=== PATIENT | female | born 1955 | race Caucasian/White ===

== ENCOUNTER 2021-05-02 14:56 | Emergency (ER) | payer OTHER ==
--- OUTSIDE RECORDS SUMMARY | 2021-05-02 15:00 | XMS REPORT | Continuity of Care Document ---
:1955 Author Organization [facility] t Address [address] [place] [address] Care Team Providers Name Role Phone Jess MONCADA, A Attending Clinician Problems This patient has no known problems. Allergies, Adverse Reactions, Alerts This patient has no known allergies or adverse reactions. Medications This patient has no known medications. Procedures This patient has no known procedures. Encounters Start End Encounter Admission Attending Care Care Encounter Source Date/Time Date/Time Type Type Clinicians Facility Department ID 2021-04-28 2021-04-28 Office HARLEEN Mercado [id number] 09:07:52 14:36:33 Visit Maureen Keene [id number] [place] [id number] [facility] [id number] [address] Results This patient has no known results.
--- NOTE | 2021-05-02 16:21 | RAD REPORT ---
EXAM DESCRIPTION: RAD - Chest Single View - 05/02/2021 4:15 pm CLINICAL HISTORY: SOB COMPARISON: No comparisons FINDINGS: No evidence of edema or pneumonia. The heart size is within normal limits.No acute osseous abnormality. No significant pleural effusions or pneumothorax. Emphysema. ACDF in the cervical spine . Remote ri rib fractures. IMPRESSION: No acute cardiopulmonary disease. Emphysema.
[2021-05-02 16:29] LABS: Basophils % 0.9 % (0-1.3); Hematocrit 38.4 % (36.0-45.0); MPV 7.4 fL (7.6-11.3); RBC Red Blood Cell Count 4.31 M/uL (3.86-4.86)
[2021-05-02 16:48] LABS: Protime INR 1.07
[2021-05-02 17:12] LABS: ALT/SGPT 31 U/L (12-78); AST/SGOT 25 U/L (15-37); Alkaline Phosphatase 92 U/L (45-117); BUN Blood Urea Nitrogen 15 mg/dL (7-18); Bicarbonate 28 mmol/L (21-32); Bilirubin Direct 0.2 mg/dL (0-0.2); Bilirubin Total 0.4 mg/dL (0.2-1.0); Glucose Level 87 mg/dL (74-106); Magnesium 1.9 mg/dL (1.8-2.4); NT PRO-BNP 1248 pg/mL (<125); Potassium 3.7 mmol/L (3.5-5.1); Protein, Total 7.4 g/dL (6.4-8.2); Sodium Level 136 mmol/L (136-145); Troponin (Emerg Dept Use Only) < 0.02 ng/mL (0.0-0.045)
--- NOTE | 2021-05-02 18:13 | RAD REPORT ---
EXAM DESCRIPTION: CT - Chest For Pe Angio - 05/02/2021 6:00 pm CLINICAL HISTORY: Chest pain. shortness of breath, tachycardia, covid COMPARISON: No comparisons TECHNIQUE: CT angiogram of the pulmonary arteries was performed with MIP. All CT scans are performed using dose optimization technique as appropriate and may include automated exposure control or mA/KV adjustment according to patient size. FINDINGS: No evidence of pulmonary thromboembolism. No acute aortic finding demonstrated. Diffuse COPD is present with mild infiltrate present in the posterior right lower lobe likely represe nting pneumonia. No significant pericardial or pleural fluid. No concerning bony finding. IMPRESSION: No evidence of pulmonary thromboembolism. Moderate COPD with right lower lobe pneumonia.
[2021-05-02] MEDS ORDERED: levoFLOXacin 750 MG TAB ONE (19:48)
[2021-05-02] MEDS ORDERED: NA CHLORIDE 0.9% 500 ML ONE (20:15)
--- NOTE | 2021-05-02 20:43 | EDPHYS ---
Physician Documentation [facility] Name: Irina Pardo Age: 65 yrs Sex: Female : 1955 Arrival Date: 05/02/2021 Time: 15:11 Bed Treatment Private MD: ED Physician Cherelle Gomez HPI: 05/02 15:41 This 65 yrs old Female presents to ER via EMS with complaints of Shortness Of jmm Breath, COVID+. 15:41 The patient has shortness of breath at rest. Onset: The symptoms/episode began/occurred jmm gradually, 1 week(s) ago. Duration: The symptoms are continuous, and are steadily getting worse. The patient's shortness of breath is aggravated by nothing, is alleviated by nothing. Associated signs and symptoms: Pertinent negatives: fever. Patient also complains of a rash beneath her right breast. Recently diagnosed with covid. . Historical: - Allergies: 21:27 No Known Allergies; ms4 - Home Meds: 21:27 Unable to obtain [Active]; ms4 - Immunization history:: Adult Immunizations up to date. - Social history:: Smoking status: unknown. ROS: 15:41 Constitutional: Negative for fever, chills, and weight loss, Cardiovascular: Negative jmm for chest pain, palpitations, and edema. 15:41 Respiratory: Positive for cough, shortness of breath. 15:41 Skin: Positive for rash. 15:41 All other systems are negative. Exam: 15:41 Constitutional: This is a well developed, well nourished patient who is awake, alert, jmm and in no acute distress. Head/Face: atraumatic. Eyes: EOMI, no conjunctival erythema appreciated ENT: Moist Mucus Membranes Neck: Trachea midline, Supple 15:41 Cardiovascular: Regular rate and rhythm. No edema appreciated Respiratory: Normal respirations, no respiratory distress appreciated Abdomen/GI: Non distended, soft Back: Normal ROM Skin: General appearance color normal 15:41 Chest/axilla: lenore noted to the right breast, no purulent drainage appreciated. 15:41 Skin: rash noted beneath the right breast. 15:41 Neuro: Orientation: is normal, Mentation: is normal, Memory: is normal. 15:41 Psych: Behavior/mood is pleasant, cooperative. Vital Signs: 17:09 BP 128 / 94; Pulse 110; Resp 18; Temp 97.9; Pulse Ox 94% on R/A; iw 19:37 BP 147 / 87; Pulse 120; Resp 20; Temp 97.1; Pulse Ox 94% ; ms4 20:41 BP 140 / 84; Pulse 109; Resp 18; Pulse Ox 93% ; ms4 MDM: 15:41 Patient medically screened. [facility] 19:41 Data reviewed: vital signs, nurses notes. Counseling: I had a detailed discussion with yuri the patient and/or guardian regarding: the historical points, exam findings, and any diagnostic results supporting the discharge/admit diagnosis, lab results, radiology results, the need for outpatient follow up, to return to the emergency department if symptoms worsen or persist or if there are any questions or concerns that arise at home. ED course: Patient is alert and nontoxic in appearance in the ED. No signs of respiratory distress are appreciated. CT reveals concerns for a right sided pneumonia. Patient is also positive for coronavirus. Will treat with oral antibiotics. Do not suspect sepsis. Patient is advised to follow PCP and otherwise given strict return precautions.. 05/02 15:42 Order name: Basic Metabolic Panel; Complete Time: 17:14 [facility] 05/02 15:42 Order name: CBC with Diff; Complete Time: 17:14 [facility] 05/02 15:42 Order name: LFT's; Complete Time: 17:14 [facility] 05/02 15:42 Order name: Magnesium; Complete Time: 17:14 [facility] 05/02 15:42 Order name: NT PRO-BNP; Complete Time: 17:14 [facility] 05/02 15:42 Order name: PT-INR; Complete Time: 17:14 [facility] 05/02 15:42 Order name: Troponin (emerg Dept Use Only); Complete Time: 17:14 [facility] 05/02 15:42 Order name: XRAY Chest (1 view); Complete Time: 16:24 [facility] 05/02 15:42 Order name: EKG; Complete Time: 15:43 [facility] 05/02 15:42 Order name: Cardiac monitoring [facility] 05/02 15:42 Order name: EKG - Nurse/Tech; Complete Time: 19:37 [facility] 05/02 17:33 Order name: CT Chest For PE Angio; Complete Time: 18:14 [facility] 05/02 15:42 Order name: IV Saline Lock [facility] 05/02 15:42 Order name: Labs collected and sent [facility] 05/02 15:42 Order name: O2 Per Protocol [facility] 05/02 15:42 Order name: O2 Sat Monitoring [facility] Administered Medications: 19:24 Drug: LevaQUIN (levofloxacin) 750 mg Route: PO; ms4 19:24 Follow up: Response: No adverse reaction ms4 19:57 Drug: NS 0.9% 500 ml Route: IV; Rate: bolus; Site: left antecubital; ms4 20:30 Follow up: IV Status: Completed infusion iw Disposition: 05/03 18:54 Co-signature as Attending Physician, Cherelle Gomez I agree with the assessment and plan sp3 of care. Disposition Summary: 05/02/21 20:43 Discharge Ordered Location: Home [facility] Condition: Stable [facility] Diagnosis - Pneumonia [facility] Followup: [facility] - With: Private Physician - When: Tomorrow - Reason: Recheck today's complaints, Continuance of care, Re-evaluation by your physician Discharge Instructions: - Discharge Summary Sheet [facility] - Community-Acquired Pneumonia, Adult [facility] - COVID-19 [facility] Forms: - Medication Reconciliation Form [facility] - Thank You Letter [facility] - Antibiotic Education [facility] - Prescription Opioid Use [facility] Prescriptions: - levofloxacin 750 mg Oral Tablet - take 1 tablet by ORAL route once daily; 7 tablet; Refills: 0, Product Selection [facility] Permitted - albuterol sulfate 90 mcg/actuation Inhalation HFA aerosol inhaler - inhale 2 puff by INHALATION route every 4 hours; 1 Pump; Refills: 0, Product [facility] Selection Permitted - nystatin 100,000 unit/gram Topical ointment - apply 1 application by TOPICAL route 3 times per day; 1 tube; Refills: 0, [facility] Product Selection Permitted Signatures: Dispatcher [employer] James Pereira PA PA jm Cherelle Gomez sp3 Melisa Mark RN RN ms4 Deborah Lowe RN iw
--- NOTE | 2021-05-02 20:43 | ER ---
Nurse's Notes [facility] Name: Irina Pardo Age: 65 yrs Sex: Female : 1955 Arrival Date: 05/02/2021 Time: 15:11 Bed Treatment Private MD: Diagnosis: Pneumonia Presentation: 05/02 15:38 Chief complaint: EMS states: pt has hx of COPD, had 2 COVID + home tests yesterday , iw has had congestion and SOB on exertion is 94% on RA. 15:38 Method Of Arrival: EMS: [facility] iw 15:38 Acuity: FRANK 3 iw 21:27 Coronavirus screen: Client denies travel out of the [place] in the last 14 days. Client ms4 indicates they have traveled out of the [place] in the last 14 days. Ebola Screen: Patient negative for fever greater than or equal to 101.5 degrees Fahrenheit, and additional compatible Ebola Virus Disease symptoms Patient denies exposure to infectious person. Patient denies travel to an Ebola-affected area in the 21 days before illness onset. Initial Sepsis Screen: Does the patient meet any 2 criteria? No. Patient's initial sepsis screen is negative. Does the patient have a suspected source of infection? No. Patient's initial sepsis screen is negative. Risk Assessment: Do you want to hurt yourself or someone else? Patient reports no desire to harm self or others. Onset of symptoms. Triage Assessment: 21:26 General: Appears in no apparent distress. Behavior is calm, cooperative. Respiratory: ms4 Reports shortness of breath Onset: The symptoms/episode began/occurred this morning, the patient has moderate shortness of breath. Historical: - Allergies: 21:27 No Known Allergies; ms4 - Home Meds: 21:27 Unable to obtain [Active]; ms4 - Immunization history:: Adult Immunizations up to date. - Social history:: Smoking status: unknown. Screenin:26 Abuse screen: Denies threats or abuse. Denies injuries from another. Nutritional ms4 screening: No deficits noted. Tuberculosis screening: No symptoms or risk factors identified. Fall Risk None identified. 21:26 Fall Risk None identified. Fall in past 12 months (25 points). Secondary diagnosis (15 ms4 points) IV access (20 points). Ambulatory Aid- None/Bed Rest/Nurse Assist (0 pts). Gait- Normal/Bed Rest/Wheelchair (0 pts) Mental Status- Oriented to own ability (0 pts). Total Thomas Fall Scale indicates High Risk Score (45 or more points). As available patient and family educated on Fall Prevention Program and Strategies. Assessment: 21:25 Pain: Denies pain. Cardiovascular: Rhythm is regular. Respiratory: Airway is patent ms4 Respiratory effort is even, unlabored, Breath sounds are diminished bilaterally. Vital Signs: 17:09 BP 128 / 94; Pulse 110; Resp 18; Temp 97.9; Pulse Ox 94% on R/A; iw 19:37 BP 147 / 87; Pulse 120; Resp 20; Temp 97.1; Pulse Ox 94% ; ms4 20:41 BP 140 / 84; Pulse 109; Resp 18; Pulse Ox 93% ; ms4 ED Course: 15:11 Patient arrived in ED. iw 15:23 James Orlando PA is PHCP. [facility] [place] 15:24 Cherelle Gomez is Attending Physician. [facility] 15:37 Deborah Lowe, RN is Primary Nurse. iw 15:39 Triage completed. iw 16:15 XRAY Chest (1 view) In Process Unspecified. EDMS 18:00 CT Chest For PE Angio In Process Unspecified. EDMS 19:30 Primary Nurse role handed off by Deborah Lowe, ALFREDO mw2 21:26 Arm band placed on right wrist. ms4 21:26 No provider procedures requiring assistance completed. IV discontinued, intact, ms4 bleeding controlled. 21:28 Patient has correct armband on for positive identification. ms4 Administered Medications: 19:24 Drug: LevaQUIN (levofloxacin) 750 mg Route: PO; ms4 19:24 Follow up: Response: No adverse reaction ms4 19:57 Drug: NS 0.9% 500 ml Route: IV; Rate: bolus; Site: left antecubital; ms4 20:30 Follow up: IV Status: Completed infusion iw Outcome: 20:43 Discharge ordered by . [facility] 21:27 Discharged to home via wheelchair. ms4 21:27 Condition: stable 21:27 Discharge instructions given to patient, family, Instructed on discharge instructions, follow up and referral plans. Demonstrated understanding of instructions, follow-up care, medications, Prescriptions given X 3. 21:28 Patient left the ED. ms4 Signatures: Dispatcher [employer] [facility] James, PA PA jmm Mynor, Deborah, RN RN iw Yenifer Solorzano mw2 Melisa Mark RN RN ms4
[2021-05-02 21:36] VITALS: TEMP 97.1
[2021-05-02 21:37] VITALS: BP 140/84; O2SAT 93
--- NOTE | 2021-05-03 16:55 | EKG ---
Test Date: 2021-05-02 Test Time: 19:34:02 Respiratory Care Assistant: MARVA MEASUREMENT RESULTS: Intervals: Rate: 122 DC: 158 QRSD: 80 QT: 324 QTc: 461 [place]: P: 90 DC: 158 QRS: 80 T: 108 INTERPRETIVE STATEMENTS: Sinus tachycardia Right atrial enlargement Nonspecific ST and T wave abnormality Abnormal ECG Compared to ECG 02/17/1999 15:39:00 ST (T wave) deviation now present Electronically Signed On 05-03-21 16:53:37 CDT by Narayan Hinojosa
== END 2021-05-02 21:28 | disposition home or self-care (01) ==
LOC: ER 14:56
DX: U07.1 COVID-19 (principal); J18.9 Pneumonia, unspecified organism; R21 Rash and other nonspecific skin eruption
CPT/HCPCS: 93005; 85025; 80048; 36415; 83735; 85610; 80076; 84484; 83880; 71275; 71045; 96360; 99284; Q9967; J7040

== ENCOUNTER 2021-09-01 09:24 | Inpatient (IN) | payer OTHER ==
--- OUTSIDE RECORDS SUMMARY | 2021-09-01 09:29 | XMS REPORT | Continuity of Care Document ---
:1955 Author Organization [facility] t Address [address] [place] [address] Care Team Providers Name Role Phone Marcia MERCADO Primary Care Physician Unavailable Sincere HAJI Attending Clinician Unavailable ALAINA Attending Clinician Unavailable ALAINA Attending Clinician Unavailable Marcia MERCADO Attending Clinician Unavailable Donnie CHAVEZ Attending Clinician Marisela FUENTES, T Attending Clinician Unavailable Diego CHAVEZ Attending Clinician DIEGO Attending Clinician Unavailable Marcia Mercado MD Attending Clinician Alaina KELLY Attending Clinician GLADYS Attending Clinician Unavailable EVELYN Attending Clinician Unavailable Kassandra MCKEON Attending Clinician Unavailable Adam CHICAS Attending Clinician Unavailable DEVIKA JADE Attending Clinician Unavailable DEVIKA JADE Attending Clinician Unavailable Payers Payer Name Policy Type Policy Number Effective Date Expiration Date S jose MEDICARE PART A [id number] 1998 \\T\\ B 00:00:00 MEDICAID [facility] [id number] 2020 00:00:00 Problems Condition Condition Condition Status Onset Resolution Last Treating Co mments Source Name Details Category Date Date Treatment Clinician Date Pneumonia Pneumonia Disease Active Uni vers due to due to 8- ity of COVID-19 COVID-19 00:00: [place] virus virus 00 Medical Branch Acute Acute Disease Active Univers respirator respirator 8-17 it y of y failure y failure 00:00: [place] due to due to 00 Medical COVID-19 COVID-19 Branch SOB SOB Disease Active 2019-09 Univers (shortness (shortness 0-31 it y of of breath[place] breath[place] Stroke Stroke Disease Active 2018-09 Univers 2-01 ity of 00:00: [place] 00 Medical Branch Hypothyroi Hypothyroi Disease Active Overview : Univers dism dism 4-22 Formattin ity of (acquired) (acquired) 00:00: g of this note Medical might be Branch different from the original. ICD10 Diagnosis Term [employer] Utility COPD COPD Disease Active Univers (chronic (chronic 4 ity of obstructiv obstructiv 00:00[place] e 00 Medical pulmonary pulmonary Bran ch disease) disease) Vitamin D Vitamin D Disease Active Overview: Univers deficiency deficiency 4- Formattin ity of 00:00: g of this note Medical might be Branch different from the original. ICD10 Diagnosis Term [employer] Utility Osteoporos Osteoporos Disease Active U nivers is is 4-22 ity of 00:00: [place] [facility] CVA CVA Disease Active Univers (cerebral (cerebral 4 ity of vascular vascular 00:00: [place] accident) accident) 00 [facility] Branch Joint Joint Disease Active Univers contractur contractur 4-22 it y of e of hand, e of hand, [place] right right 00 Medical Branch Tobacco Tobacco Disease Active Univers abuse abuse 4-22 ity of 00:00: [place] [facility] Marijuana Marijuana Disease Active Uni vers abuse abuse 4-22 ity of 00:00: [place] 00 Medical Branch Allergies, Adverse Reactions, Alerts Allergy Allergy Status Severity Reaction(s) Onset Inactive Treating Comm ents Source Name Type Date Date Clinician Shellfis Propensi Active Swelling 2019-09 Univ ers h ty to 1 ity of Derived adverse 00:00: [place] reaction 00 Medical s Branch SHELLFIS DRUG Active SOB 2019-09 Univers H INGREDI 04 ity of DERIVED 00:00: [place] [facility] Codeine Propensi Active Swelling throat Unive rs ty to 4-03 ity of adverse 00:00: [place] reaction 00 Medical s Branch CODEINE DRUG Active High Swelling Univers INGREDI 4-03 ity of 00:00: [place] 00 Medical Branch Iodine Propensi Active Swelling (shell Univer s ty to 01-06 fish) ity of adverse 00:00: throat [place] reaction 00 swells [facility] s Branch IODINE DRUG Active High Swelling Univers INGREDI 01-06 ity of 00:00: [place] 00 Medical [place] Social History Social Habit Start Date Stop Date Quantity Comments Source History SDGA University o f Alcohol Frequency [facility] edical Branch History SDGA University o f Alcohol Std Drinks [facility] History [facility] University o f Alcohol Binge [facility] [place] [facility] al [place] Exposure to Not sure University of SARS-CoV-2 (event) [facility] Alcohol intake 2021-08-23 2021-08-23 .29 /d University of 00:00:00 00:00:00 [facility] Tobacco Comment 2021-05-03 2021-05-03 Used to smoke 2 Univ ersity of 00:00:00 00:00:00 packs per day- [facility] zia quit aug 2020 [place] Alcohol Comment 2020-12-28 2020-12-28 daily Universit y of 00:00:00 00:00:00 [facility] Cigarettes smoked 2020-10-13 2020-10-13 Univers ity of current (pack per 00:00:00 00:00:00 [facility] ) - Reported Branch Cigarette 2020-10-13 2020-10-13 University of pack-years 00:00:00 00:00:00 [facility] Tobacco use and 2020-10-13 2020-10-13 Never used Universit y of exposure 00:00:00 00:00:00 [facility] History of tobacco 2020-06-20 Cigarette Smoker University of use 00:00:00 [facility] Sex [birth year] Universit y of 00:00:00 00:00:00 [facility] Smoking Status Start Date Stop Date Source Former smoker 2020-10-13 00:00:00 2020-10-13 00:00:00 Universi ty of [facility] Medications Ordered Filled Start Stop Current Ordering Indication Dosage Frequency Signature Comments Components Source Medication Medication Date Date Medication? Clinician (SIG) Name Name levothyroxi 2020-09 Yes [id number] 25ug Take 1 Univers ne 25 mcg 2-09 tablet by ity o f tablet 00:00: mouth [place] 00 every Medical morning. Branch clopidogreL 2020-09 Yes [id number] 75mg Take 1 Univers 75 mg 2-09 tablet by ity of tablet 00:00: mouth [place] 00 daily. Medical Branch ipratropium 2020-09- No 9mL 9 mL, Univ ers -albuteroL 10-25 Inhalation it y of (DUONEB) 02:00: 01:05 , ONCE, 1 [place] as 0.5 mg-3 00 :00 dose, On Medical mg(2.5 mg [facility] Branch base)/3 mL 08/23/21 at nebulizer 1999, JEFF solution 9 mL methylpredn 2020-09- No 125mg 125 mg, IV Univers isolone sod 10-25 Piggyback, i ty of succ 02:00: 00:54 ONCE, 1 [place] (SOLU-MEDRO 00 :00 dose, On Medi zia L) Tue Branch injection 08/23/21 at 125 mg 1999, STAT albuterol 2020-09 Yes [id number] 2{puff} Inhale 2 Univers 90 2-07 Puffs ity of mcg/actuati 00:00: every 4 [place] on inhaler 00 (four) Medical hours as Branch needed for Wheezing or Shortness of Breath. albuterol 2020-09 Yes [id number] 2.5mg Inhale 3 Univers 2.5 mg /3 2-07 mL every 4 ity of mL (0.083 00:00: (four) [place] %) 00 hours. May Medical nebulizer also Branch solution nebulize one extra every 6 hours. predniSONE 2020-09 Yes [id number] 50mg Take 1 Univers 50 mg 2-07 tablet by ity of tablet 00:00: mouth [place] 00 daily. Medical Branch benzonatate 2020-09 Yes [id number] 200mg Take 1 Univers 200 mg 2-07 capsule by ity of capsule 00:00: mouth 3 [place] 00 (three) Medical times Branch daily as needed for Cough. albuterol 2020-09 Yes [id number] 2{puff} Inhale 2 Univers 90 2-07 Puffs ity of mcg/actuati 00:00: every 4 [place] on inhaler 00 (four) Medical hours as Branch needed for Wheezing or Shortness of Breath. albuterol 2020-09 Yes [id number] 2.5mg Inhale 3 Univers 2.5 mg /3 2-07 mL every 4 ity of mL (0.083 00:00: (four) [place] %) 00 hours. May Medical nebulizer also Branch solution nebulize one extra every 6 hours. predniSONE 2020-09 Yes [id number] 50mg Take 1 Univers 50 mg 2-07 tablet by ity of tablet 00:00: mouth [place] 00 daily. Medical Branch benzonatate 2020-09 Yes [id number] 200mg Take 1 Univers 200 mg 2-07 capsule by ity of capsule 00:00: mouth 3 [place] 00 (three) Medical times Branch daily as needed for Cough. famotidine 2020-09 Yes [id number] 40mg Take 1 Univers 40 mg 1-16 tablet by ity of tablet 00:00: mouth [place] 00 daily. Medical Branch famotidine 2020-09 Yes [id number] 40mg Take 1 Univers 40 mg 1-16 tablet by ity of tablet 00:00: mouth [place] 00 daily. Medical Branch famotidine 2020-09 Yes [id number] 40mg Take 1 Univers 40 mg 1-16 tablet by ity of tablet 00:00: mouth [place] 00 daily. Medical Branch famotidine 2020-09 Yes [id number] 40mg Take 1 Univers 40 mg 1-16 tablet by ity of tablet 00:00: mouth [place] 00 daily. Medical Branch famotidine 2020-09 Yes [id number] 40mg Take 1 Univers 40 mg 1-16 tablet by ity of tablet 00:00: mouth [place] 00 daily. Medical Branch budesonide- 2020-09 Yes [id number] 2{puff} Inhale 2 Univers formoteroL 0-14 Puffs 2 ity of (SYMBICORT) 00:00: (two) [place] 160-4.5 00 times Medical mcg/actuati daily. Branch on inhaler albuterol 2020-09 Yes 2{puff} Inhale 2 U nivers (PROAIR 0-14 Puffs ity of HFA) 90 00:00: every 6 [place] mcg/actuati 00 (six) Medical on inhaler hours as Branc h needed for Wheezing or Shortness of Breath. budesonide- 2020-09 Yes [id number] 2{puff} Inhale 2 Univers formoteroL 0-14 Puffs 2 ity of (SYMBICORT) 00:00: (two) [place] 160-4.5 00 times Medical mcg/actuati daily. Branch on inhaler albuterol 2020-09 Yes 2{puff} Inhale 2 U nivers (PROAIR 0-14 Puffs ity of HFA) 90 00:00: every 6 [place] mcg/actuati 00 (six) Medical on inhaler hours as Branc h needed for Wheezing or Shortness of Breath. budesonide- 2020-09 Yes [id number] 2{puff} Inhale 2 Univers formoteroL 0-14 Puffs 2 ity of (SYMBICORT) 00:00: (two) [place] 160-4.5 00 times Medical mcg/actuati daily. Branch on inhaler albuterol 2020-09 Yes 2{puff} Inhale 2 U nivers (PROAIR 0-14 Puffs ity of HFA) 90 00:00: every 6 [place] mcg/actuati 00 (six) Medical on inhaler hours as Branc h needed for Wheezing or Shortness of Breath. budesonide- 2020-09 Yes [id number] 2{puff} Inhale 2 Univers formoteroL 0-14 Puffs 2 ity of (SYMBICORT) 00:00: (two) [place] 160-4.5 00 times Medical mcg/actuati daily. Branch on inhaler albuterol 2020-09 Yes 2{puff} Inhale 2 U nivers (PROAIR 0-14 Puffs ity of HFA) 90 00:00: every 6 [place] mcg/actuati 00 (six) Medical on inhaler hours as Branc h needed for Wheezing or Shortness of Breath. budesonide- 2020-09 Yes [id number] 2{puff} Inhale 2 Univers formoteroL 0-14 Puffs 2 ity of (SYMBICORT) 00:00: (two) [place] 160-4.5 00 times Medical mcg/actuati daily. Branch on inhaler albuterol 2020-09 Yes 2{puff} Inhale 2 U nivers (PROAIR 0-14 Puffs ity of HFA) 90 00:00: every 6 [place] mcg/actuati 00 (six) Medical on inhaler hours as Branc h needed for Wheezing or Shortness of Breath. budesonide- 2020-09 Yes [id number] 2{puff} Inhale 2 Univers formoteroL 0-14 Puffs 2 ity of (SYMBICORT) 00:00: (two) [place] 160-4.5 00 times Medical mcg/actuati daily. Branch on inhaler albuterol 2020-09 Yes 2{puff} Inhale 2 U nivers (PROAIR 0-14 Puffs ity of HFA) 90 00:00: every 6 [place] mcg/actuati 00 (six) Medical on inhaler hours as Branc h needed for Wheezing or Shortness of Breath. budesonide- 2020-09 Yes [id number] 2{puff} Inhale 2 Univers formoteroL 0-14 Puffs 2 ity of (SYMBICORT) 00:00: (two) [place] 160-4.5 00 times Medical mcg/actuati daily. Branch on inhaler albuterol 2020-09 Yes 2{puff} Inhale 2 U nivers (PROAIR 0-14 Puffs ity of HFA) 90 00:00: every 6 [place] mcg/actuati 00 (six) Medical on inhaler hours as Branc h needed for Wheezing or Shortness of Breath. amitriptyli Yes [id number] 150mg Take 3 Univers ne 50 mg 9-13 tablets by ity o f tablet 00:00: mouth at [place] 00 bedtime. Medical Branch amitriptyli Yes [id number] 150mg Take 3 Univers ne 50 mg 9-13 tablets by ity o f tablet 00:00: mouth at [place] 00 bedtime. Medical Branch amitriptyli Yes [id number] 150mg Take 3 Univers ne 50 mg 9-13 tablets by ity o f tablet 00:00: mouth at [place] 00 bedtime. Medical Branch amitriptyli Yes [id number] 150mg Take 3 Univers ne 50 mg 9-13 tablets by ity o f tablet 00:00: mouth at [place] 00 bedtime. Medical Branch amitriptyli Yes [id number] 150mg Take 3 Univers ne 50 mg 9-13 tablets by ity o f tablet 00:00: mouth at [place] 00 bedtime. Medical Branch amitriptyli 2020-0 Yes [id number] 150mg Take 3 Univers ne 50 mg 9-13 tablets by ity o f tablet 00:00: mouth at [place] [address] bedtime. Medical Branch amitriptyli 2020-0 Yes [id number] 150mg Take 3 Univers ne 50 mg 9-13 tablets by ity o f tablet 00:00: mouth at [place] [address] bedtime. Medical Branch ARIPiprazol 2020-0 Yes 2mg Take 2 mg U nivers e 2 mg 8-26 by mouth ity of tablet 00:00: at [place] [address] bedtime. Medical Branch ARIPiprazol 2020-0 Yes 2mg Take 2 mg U nivers e 2 mg 8-26 by mouth ity of tablet 00:00: at [place] [address] bedtime. Medical Branch ARIPiprazol 0 Yes 2mg Take 2 mg U nivers e 2 mg 8-26 by mouth ity of tablet 00:00: at [place] [address] bedtime. Medical Branch ARIPiprazol 2020-0 Yes 2mg Take 2 mg U nivers e 2 mg 8-26 by mouth ity of tablet 00:00: at [place] [address] bedtime. Medical Branch ARIPiprazol 0 Yes 2mg Take 2 mg U nivers e 2 mg 8-26 by mouth ity of tablet 00:00: at [place] [address] bedtime. Medical Branch budesonide 0 1- No [id number] 1mg Use 2 mL Univers 1 mg/2 mL 8-17 10-14 as ity of nebulizer 00:00: 00:00 directed [place] as solution 00 :00 every 8 Medical (eight) Branch hours as needed (shortness of breath). CLOPIDOGREL 2020-0 Yes [id number] TAKE ONE Univers 75 mg 4-07 TABLET BY ity of tablet 00:00: MOUTH [place] DAILY Medical Branch CLOPIDOGREL 2020-0 Yes [id number] TAKE ONE Univers 75 mg 4-07 TABLET BY ity of tablet 00:00: MOUTH [place] DAILY Medical Branch CLOPIDOGREL 2020-0 Yes [id number] TAKE ONE Univers 75 mg 4-07 TABLET BY ity of tablet 00:00: MOUTH [place] DAILY Medical Branch CLOPIDOGREL 2020-0 Yes [id number] TAKE ONE Univers 75 mg 4-07 TABLET BY ity of tablet 00:00: MOUTH [place] 00 DAILY Medical Branch CLOPIDOGREL 2020-0 Yes [id number] TAKE ONE Univers 75 mg 4-07 TABLET BY ity of tablet 00:00: MOUTH [place] DAILY Medical Branch CLOPIDOGREL 2020-0 Yes [id number] TAKE ONE Univers 75 mg 4-07 TABLET BY ity of tablet 00:00: MOUTH 00 DAILY Medical Branch CLOPIDOGREL 2020-0 2021- No [id number] TAKE ONE Univers 75 mg 4-07 12-07 TABLET BY ity of tablet 00:00: 00:00 MOUTH [place] 00 :00 DAILY Medical Branch benzonatate 2020-0 Yes [id number] 100mg Take 1 Univers (TESSALON 1-27 capsule by ity of PERLES) 100 00:00: mouth 3 [place] mg capsule 00 (three) Medica l times Branch daily. benzonatate 2020-0 Yes [id number] 100mg Take 1 Univers (TESSALON 1-27 capsule by ity of PERLES) 100 00:00: mouth 3 [place] mg capsule 00 (three) Medica l times Branch daily. benzonatate 2020-0 Yes [id number] 100mg Take 1 Univers (TESSALON 1-27 capsule by ity of PERLES) 100 00:00: mouth 3 [place] mg capsule 00 (three) Medica l times Branch daily. benzonatate 2020-0 Yes [id number] 100mg Take 1 Univers (TESSALON 1-27 capsule by ity of PERLES) 100 00:00: mouth 3 [place] mg capsule 00 (three) Medica l times Branch daily. benzonatate 2020-0 Yes [id number] 100mg Take 1 Univers (TESSALON 1-27 capsule by ity of PERLES) 100 00:00: mouth 3 [place] mg capsule 00 (three) Medica l times Branch daily. benzonatate 2020-0 Yes [id number] 100mg Take 1 Univers (TESSALON 1-27 capsule by ity of PERLES) 100 00:00: mouth 3 [place] mg capsule 00 (three) Medica l times Branch daily. benzonatate 2020-0 Yes [id number] 100mg Take 1 Univers (TESSALON 1-27 capsule by ity of PERLES) 100 00:00: mouth 3 [place] mg capsule 00 (three) Medica l times Branch daily. atorvastati 2020-0 Yes [id number] 20mg Take 1 Univers n 20 mg 1-07 tablet by ity of tablet 00:00: mouth at [place] 00 bedtime. Medical Branch levothyroxi 2020-0 Yes [id number] 25ug Take 1 Univers ne 25 mcg 1-07 tablet by ity o f tablet 00:00: mouth [place] 00 every Medical morning. Branch atorvastati 2020-0 Yes [id number] 20mg Take 1 Univers n 20 mg 1-07 tablet by ity of tablet 00:00: mouth at [place] 00 bedtime. Medical Branch levothyroxi 2020-0 Yes [id number] 25ug Take 1 Univers ne 25 mcg 1-07 tablet by ity o f tablet 00:00: mouth [place] 00 every Medical morning. Branch atorvastati 0 Yes [id number] 20mg Take 1 Univers n 20 mg 1-07 tablet by ity of tablet 00:00: mouth at [place] 00 bedtime. Medical Branch levothyroxi 2020-0 Yes [id number] 25ug Take 1 Univers ne 25 mcg 1-07 tablet by ity o f tablet 00:00: mouth [place] 00 every Medical morning. Branch atorvastati 2020-0 Yes [id number] 20mg Take 1 Univers n 20 mg 1-07 tablet by ity of tablet 00:00: mouth at [place] 00 bedtime. Medical Branch levothyroxi 0 Yes [id number] 25ug Take 1 Univers ne 25 mcg 1-07 tablet by ity o f tablet 00:00: mouth [place] 00 every Medical morning. Branch atorvastati 2020-0 Yes [id number] 20mg Take 1 Univers n 20 mg 1-07 tablet by ity of tablet 00:00: mouth at [place] 00 bedtime. Medical Branch levothyroxi 2020-0 Yes [id number] 25ug Take 1 Univers ne 25 mcg 1-07 tablet by ity o f tablet 00:00: mouth [place] 00 every Medical morning. Branch atorvastati 2020-0 Yes [id number] 20mg Take 1 Univers n 20 mg 1-07 tablet by ity of tablet 00:00: mouth at [place] 00 bedtime. Medical Branch levothyroxi 2020-0 Yes [id number] 25ug Take 1 Univers ne 25 mcg 1-07 tablet by ity o f tablet 00:00: mouth [place] 00 every Medical morning. Branch atorvastati 0 Yes [id number] 20mg Take 1 Univers n 20 mg 1-07 tablet by ity of tablet 00:00: mouth at [place] 00 bedtime. Medical Branch levothyroxi 0 202- No [id number] 25ug Take 1 Univers ne 25 mcg - 12-09 tablet by ity of tablet 00:00: 00:00 mouth [place] 00 :00 every Medical morning. Branch ipratropium 2020- Yes [id number] .5mg Inhale 2.5 Univers 0.02 % 2-18 mL every 8 ity of nebulizer 00:00: (eight) [place] solution 00 hours as Medical needed for Branch Wheezing or Shortness of Breath. ipratropium 2020-1 Yes [id number] .5mg Inhale 2.5 Univers 0.02 % 2-18 mL every 8 ity of nebulizer 00:00: (eight) [place] solution 00 hours as Medical needed for Branch Wheezing or Shortness of Breath. ipratropium 2020-1 Yes [id number] .5mg Inhale 2.5 Univers 0.02 % 2-18 mL every 8 ity of nebulizer 00:00: (eight) [place] solution 00 hours as Medical needed for Branch Wheezing or Shortness of Breath. ipratropium 2020-1 Yes [id number] .5mg Inhale 2.5 Univers 0.02 % 2-18 mL every 8 ity of nebulizer 00:00: (eight) [place] solution 00 hours as Medical needed for Branch Wheezing or Shortness of Breath. ipratropium 2020-1 Yes [id number] .5mg Inhale 2.5 Univers 0.02 % 2-18 mL every 8 ity of nebulizer 00:00: (eight) [place] solution 00 hours as Medical needed for Branch Wheezing or Shortness of Breath. ipratropium 2020-1 Yes [id number] .5mg Inhale 2.5 Univers 0.02 % 2-18 mL every 8 ity of nebulizer 00:00: (eight) [place] solution 00 hours as Medical needed for Branch Wheezing or Shortness of Breath. ipratropium 2020-1 Yes [id number] .5mg Inhale 2.5 Univers 0.02 % 2-18 mL every 8 ity of nebulizer 00:00: (eight) [place] solution 00 hours as Medical needed for Branch Wheezing or Shortness of Breath. aspirin 81 2020- Yes [id number] 81mg Take 1 Univers mg chewable 1-11 tablet by ity of tablet 00:00: mouth [place] 00 daily. Medical Branch aspirin 81 2020- Yes [id number] 81mg Take 1 Univers mg chewable 1-11 tablet by ity of tablet 00:00: mouth [place] 00 daily. Medical Branch aspirin 81 2020- Yes [id number] 81mg Take 1 Univers mg chewable 1-11 tablet by ity of tablet 00:00: mouth [place] 00 daily. Medical Branch aspirin 81 2020- Yes [id number] 81mg Take 1 Univers mg chewable 1-11 tablet by ity of tablet 00:00: mouth [place] 00 daily. Medical Branch aspirin 81 2020- Yes [id number] 81mg Take 1 Univers mg chewable 1-11 tablet by ity of tablet 00:00: mouth [place] 00 daily. Medical Branch aspirin 81 2019- Yes [id number] 81mg Take 1 Univers mg chewable 1-11 tablet by ity of tablet 00:00: mouth [place] 00 daily. Medical Branch aspirin 81 2019- Yes [id number] 81mg Take 1 Univers mg chewable 1-11 tablet by ity of tablet 00:00: mouth [place] 00 daily. Medical Branch famotidine 2019- Yes [id number] 20mg Take 2.5 Univers 40 mg/5 mL 1-10 mL by ity of (8 mg/mL) 00:00: mouth [place] suspension 00 every 12 Medic al (twelve) Branch hours. famotidine 2019- Yes [id number] 20mg Take 2.5 Univers 40 mg/5 mL 1-10 mL by ity of (8 mg/mL) 00:00: mouth [place] suspension 00 every 12 Medic al (twelve) Branch hours. famotidine 2019-09- No [id number] 20mg Take 2.5 Univers 40 mg/5 mL 1-10 11-16 mL by ity of (8 mg/mL) 00:00: 00:00 mouth [place] suspension 00 :00 every 12 Medic al (twelve) Branch hours. PROAIR HFA 2018-09- No [id number] INHALE TWO Univers 90 0-11 10-14 PUFFS BY ity of mcg/actuati 00:00: 00:00 MOUTH [place] inhaler 00 :00 EVERY 6 Medica l HOURS Branch NEEDED FOR WHEEZING OR FOR SHORTNESS OF BREATH Immunizations Ordered Filled Immunization Date Status Comments [facility] e Immunization Name Name SARS-COV-2 COVID-19 2020-11-30 Completed Unive rsity of PFIZER VACCINE 00:00:00 [facility] SARS-COV-2 COVID-19 2020-11-30 Completed Unive rsity of PFIZER VACCINE 00:00:00 [facility] SARS-COV-2 COVID-19 2020-11-30 Completed Unive rsity of PFIZER VACCINE 00:00:00 [facility] SARS-COV-2 COVID-19 2020-11-30 Completed Unive rsity of PFIZER VACCINE 00:00:00 [facility] SARS-COV-2 COVID-19 2020-11-30 Completed Unive rsity of PFIZER VACCINE 00:00:00 [facility] SARS-COV-2 COVID-19 2020-11-30 Completed Unive rsity of PFIZER VACCINE 00:00:00 [facility] SARS-COV-2 COVID-19 2020-11-30 Completed Unive rsity of PFIZER VACCINE 00:00:00 [facility] SARS-COV-2 COVID-19 2020-11-09 Completed Unive rsity of PFIZER VACCINE 00:00:00 [facility] SARS-COV-2 COVID-19 2020-11-09 Completed Unive rsity of PFIZER VACCINE 00:00:00 [facility] SARS-COV-2 COVID-19 2020-11-09 Completed Unive rsity of PFIZER VACCINE 00:00:00 [facility] SARS-COV-2 COVID-19 2020-11-09 Completed Unive rsity of PFIZER VACCINE 00:00:00 [facility] SARS-COV-2 COVID-19 2020-11-09 Completed Unive rsity of PFIZER VACCINE 00:00:00 [facility] SARS-COV-2 COVID-19 2020-11-09 Completed Unive rsity of PFIZER VACCINE 00:00:00 [facility] SARS-COV-2 COVID-19 2020-11-09 Completed Unive rsity of PFIZER VACCINE 00:00:00 [facility] Influenza Virus 2020-08-19 Completed Universit y of Vaccine Quad .5 mL 00:00:00 [facility] 6+ MO Branch Influenza Virus 2020-08-19 Completed Universit y of Vaccine [place] .5 mL 00:00:00 [place] [facility] IM 6+ MO Branch Influenza Virus 2020-08-19 Completed Universit y of Vaccine [place] .5 mL 00:00:00 [place] [facility] IM 6+ MO Branch Influenza Virus 2020-08-19 Completed Universit y of Vaccine [place] .5 mL 00:00:00 [place] [facility] IM 6+ MO Branch Influenza Virus 2020-08-19 Completed Universit y of Vaccine [place] .5 mL 00:00:00 [place] [facility] IM 6+ MO Branch Influenza Virus 2020-08-19 Completed Universit y of Vaccine [place] .5 mL 00:00:00 [place] [facility] IM 6+ MO Branch Influenza Virus 2020-08-19 Completed Universit y of Vaccine [place] .5 mL 00:00:00 [place] Medical IM 6+ MO Branch Influenza Virus 2019-08-20 Completed Universit y of Vaccine [place] .5 mL 00:00:00 [place] [facility] IM 6+ MO Branch Influenza Virus 2019-08-20 Completed Universit y of Vaccine [place] .5 mL 00:00:00 [place] [facility] IM 6+ MO Branch Influenza Virus 2019-08-20 Completed Universit y of Vaccine [place] .5 mL 00:00:00 [place] [facility] IM 6+ MO Branch Influenza Virus 2019-08-20 Completed Universit y of Vaccine [place] .5 mL 00:00:00 [place] [facility] IM 6+ MO Branch Influenza Virus 2019-08-20 Completed Universit y of Vaccine [place] .5 mL 00:00:00 [place] Medical IM 6+ MO Branch Influenza Virus 2019-08-20 Completed Universit y of Vaccine [place] .5 mL 00:00:00 [place] [facility] IM 6+ MO Branch Influenza Virus 2019-08-20 Completed Universit y of Vaccine [place] .5 mL 00:00:00 [place] [facility] IM 6+ MO Branch Influenza Virus 2018-06-18 Completed Universit y of Vaccine [place] IM 3+ 00:00:00 [facility] Pneumococcal 2018-06-18 Completed University o f Polysaccharide, 00:00:00 [place] Med ical PPSV23 (PNEUMOVAX) Branch Influenza Virus 2018-06-18 Completed Universit y of Vaccine Quad IM 3+ 00:00:00 [facility] Pneumococcal 2018-06-18 Completed University o f Polysaccharide, 00:00:00 [place] Med ical PPSV23 (PNEUMOVAX) Branch Influenza Virus 2018-06-18 Completed Universit y of Vaccine Quad IM 3+ 00:00:00 [facility] Pneumococcal 2018-06-18 Completed University o f Polysaccharide, 00:00:00 [place] [facility] PPSV23 (PNEUMOVAX) Branch Influenza Virus 2018-06-18 Completed Universit y of Vaccine Quad IM 3+ 00:00:00 [facility] Pneumococcal 2018-06-18 Completed University o f Polysaccharide, 00:00:00 [place] [facility] PPSV23 (PNEUMOVAX) Branch Influenza Virus 2018-06-18 Completed Universit y of Vaccine Quad IM 3+ 00:00:00 [facility] Pneumococcal 2018-06-18 Completed University o f Polysaccharide, 00:00:00 [place] [facility] PPSV23 (PNEUMOVAX) Branch Influenza Virus 2018-06-18 Completed Universit y of Vaccine Quad IM 3+ 00:00:00 [facility] Pneumococcal 2018-06-18 Completed University o f Polysaccharide, 00:00:00 [place] [facility] PPSV23 (PNEUMOVAX) Branch Influenza Virus 2018-06-18 Completed Universit y of Vaccine Quad IM 3+ 00:00:00 [facility] Pneumococcal 2018-06-18 Completed University o f Polysaccharide, 00:00:00 [place] [facility] PPSV23 (PNEUMOVAX) Branch Influenza Virus 2017-10-17 Completed Universit y of Vaccine Quad ID 00:00:00 [place] [facility] 18-64 Y[facility] [place] Influenza Virus 2017-10-17 Completed Universit y of Vaccine Quad ID 00:00:00 [place] [facility] Influenza Virus 2017-10-17 Completed Universit y of Vaccine Quad ID 00:00:00 [place] [facility] 18-64 YRS Branch Influenza Virus 2017-10-17 Completed Universit y of Vaccine Quad ID 00:00:00 [place] [facility] 18-64 YRS [place] Influenza Virus 2017-10-17 Completed Universit y of Vaccine Quad ID 00:00:00 [place] [facility] 18-64 YRS Branch Influenza Virus 2017-10-17 Completed Universit y of Vaccine Quad ID 00:00:00 [place] [facility] 1862 [facility] Influenza Virus 2017-10-17 Completed Universit y of Vaccine Quad ID 00:00:00 [facility] ical 1862 [facility] Td 2017-02-25 Completed University of 00:00:00 [facility] Td 2017-02-25 Completed University of 00:00:00 [facility] Td 2017-02-25 Completed University of 00:00:00 [facility] Td 2017-02-25 Completed University of 00:00:00 [facility] Td 2017-02-25 Completed University of 00:00:00 [facility] Td 2017-02-25 Completed University of 00:00:00 [facility] Td 2017-02-25 Completed University of 00:00:00 [facility] Vital Signs Vital Name Observation Time Observation Value Comments Source Systolic blood 2021-08-24 03:50:00 122 mm[Hg] Univer sity of pressure [facility] Diastolic blood 2021-08-24 03:50:00 76 mm[Hg] Unive rsity of pressure [facility] Heart rate 2021-08-24 03:50:00 104 /min Universi ty of [facility] Respiratory rate 2021-08-24 03:50:00 28 /min [facility] in 2021-08-24 03:50:00 91 /min Zaleski of Arterial blood by [facility] Pulse oximetry Branch Body temperature 2021-08-24 00:17:00 37.11 Suzy [facility] ersity of [facility] Body weight 2021-08-24 00:17:00 63.504 kg Universi ty of [facility] BMI 2021-08-24 00:17:00 26.45 kg/m2 Universi ty [facility] Systolic blood 2021-08-23 23:09:00 119 mm[Hg] Univer sity of pressure [facility] Diastolic blood 2021-08-23 23:09:00 72 mm[Hg] Unive rsity of pressure [facility] Heart rate 2021-08-23 23:09:00 98 /min Universi ty of [facility] Body temperature 2021-08-23 23:09:00 36.89 Suzy Univ ersity of [facility] Respiratory rate 2021-08-23 23:09:00 22 /min Univ ersity of [facility] Body height 2021-08-23 23:09:00 154.9 cm Universi ty [facility] Body weight 2021-08-23 23:09:00 63.504 kg Universi ty of [facility] BMI 2021-08-23 23:09:00 26.45 kg/m2 [facility] Oxygen saturation in 2021-08-23 23:09:00 96 /min University of Arterial blood by [facility] Pulse oximetry Branch Systolic blood 2021-06-30 16:42:00 121 mm[Hg] Univer sity of pressure [facility] Diastolic blood 2021-06-30 16:42:00 84 mm[Hg] Unive rsity of [facility] Heart rate 2021-06-30 16:42:00 92 /min [facility] Respiratory rate 2021-06-30 16:42:00 22 /min [facility] Body height 2021-06-30 16:42:00 152.4 cm [facility] Body weight 2021-06-30 16:42:00 65.772 kg [facility] BMI 2021-06-30 16:42:00 28.32 kg/m2 [facility] Oxygen saturation in 2021-06-30 16:42:00 94 /min [place] of Arterial blood by [facility] Pulse oximetry [place] Procedures Procedure Date / Time Performing Clinician Source Performed URINALYSIS 2021-08-24 01:38:00 Uyen Fields [facility] XR CHEST 1 VW 2021-08-24 00:38:02 Donnie [facility] TROPONIN I 2021-08-24 00:36[facility]00 [facility] 2021-08-24 00:36:00 Uyen Fields [facility] ([id number]) [facility] CBC WITH DIFF 2021-08-24 00:36:00 Uyen Fields [facility] PROTHROMBIN TIME / INR 2021-08-24 00:36:00 Uyen Fielsd [facility] N-TERMINAL PRO-BNP 2021-08-24 00:36:00 Uyen Fields [facility] COVID-19 (ID NOW RAPID 2021-08-24 00:36:00 Uyen Fields [facility] TESTING) [facility] NOTICE OF PRIVACY 2021-08-24 00:09:03 Doctor Unassigned, No [facility] PRACTICES Name Medical Branch CONSENT/REFUSAL FOR 2021-08-24 00:07:01 Doctor Unassigned, No Un [facility] DIAGNOSIS AND TREATMENT Name Medical Branch Encounters Start End Encounter Admission Attending Care Care Encounter Source Date/Time Date/Time Type Type Clinicians Facility Department ID 2021-07-18 Emergency [facility] [id number] Univers 16:13:03 ity [facility] 2021-07-16 Emergency [facility] [id number] Univers 02:15:15 ity [facility] 2022-01-03 2022-01-03 [id number] Univers 10:00:00 10:00:00 [facility] [id number] [facility] 2022-01-03 Outpatient R RAISSA [facility] [id number] Univers 10:00:00 10:00:00 JEMMA [facility] 2021-12-16 2021-12-16 Outpatient R PUJA FOLEY [facility] [id number] Univers 11:30:00 11:30:00 PUJA FOLEY [id number] i ty of [facility] 2021-12-01 2021-12-01 Outpatient R JESS [facility] [id number] Univers 15:00:00 15:00:00 MAUREEN [facility] 2021-12-01 2021-12-01 Outpatient R JESS [facility] [id number] Univers 11:20:00 11:20:00 [facility]EN [id number] [facility] 2021-12-01 2021-12-01 Outpatient R JESS [facility] [id number] Univers 11:20:00 11:20:00 MAUREEN [facility] 2021-08-23 2021-08-24 Emergency [facility] [id number] Univers 18:18:00 02:43:00 Uyen DOWLING [id number] i ty of [place] [id number] [facility] [id number] [place] [address] Branch 2021-08-24 2021-08-24 SERGIO Singh 1.2.840.114 [id number] Univers 00:00:00 00:00:00 (Out) Savanah CELIS [id number] it y of [facility] [id number] Darci as [phone] [address] 2021-08-23 2021-08-23 Urgent [facility] 1.2.840.114 [id number] Univers 17:08:18 17:53:20 Care [facility] [id number] it y of [place] [id number] Darci as CONNIE?BLEA [phone] [address] MEDICAL OFFICE BUILDING 2021-08-23 2021-08-23 [facility] [id number] Univers 17:00:00 17:53:20 [facility] 2021-08-23 2021-08-23 Outpatient [facility] ERT [id number] Univers 17:00:00 17:53:20 [facility]E [facility] 2021-08-23 2021-08-23 Outpatient R [facility] [id number] Univers 17:00:00 17:00:00 [id number] ity [facility] 2021-08-23 2021-08-23 [facility] [id number] Univers 17:00:00 17:00:00 [facility] 2021-08-23 2021-08-23 Telephone [facility] 1.2.840.114 [id number] Univers 00:00:00 00:00:00 Maureen DOWLING [id number] ity [facility] [id number] [phone] [place] [address] Branch [facility] 2021-08-02 2021-08-02 [facility] [id number] Univers 10:20:00 13:19:18 [facility] 2021-08-02 2021-08-02 Telemedici [facility] 1.2.840.114 [id number] Univers 08:30:30 13:19:18 ne Visit Maureen Marcia DOWL[place] [id number] ity [facility] [id number] [phone] Sd dic[address] 2021-08-02 2021-08-02 Outpatient R MERCADO, [facility] [id number] Univers 10:20:00 10:20:00 MAUREEN [id number] ity of [facility] 2021-07-08 2021-07-08 Refill [facility] 1.2.840.114 [id number] Univers 00:00:00 00:00:00 Maureen Marcia Jassi [id number] ity [facility] [id number] [phone] [facility] 231 [facility] 2021-06-30 2021-06-30 Office [facility] 1.2.840.114 [id number] Univers 11:26:48 12:14:06 Visit Puja Dowling [id number] i [id number] [id number] [facility] 085 [facility] 2021-06-30 2021-06-30 Outpatient R PUJA FOLEY [facility] [id number] Univers 11:30:00 11:30:00 PUJA FOLEY [id number] i ty of [facility] 2021-06-30 2021-06-30 Outpatient R PUJA FOLEY [facility] [id number] Univers 11:30:00 11:30:00 PUJA FOLEY i ty of [facility] 2021-06-24 2021-06-24 Outpatient R PUJA FOLEY [facility] [id number] Univers 13:20:00 13:20:00 PUJA FOLEY [id number] i ty of [facility] 2021-06-24 2021-06-24 Outpatient R PUJA FOLEY [facility] [id number] Univers 13:20:00 13:20:00 PUJA FOLEY i ty of [facility] 2021-06-17 2021-06-17 Outpatient R GLADYS [facility] [id number] Univers 15:20:00 15:20:00 JESSICA [id number] [facility] 2021-06-17 2021-06-17 Outpatient R GLADYS [facility] [id number] Univers 15:20:00 15:20:00 JESSICA [facility] 2021-05-26 2021-05-26 Outpatient R JESS [facility] [id number] Univers 14:00:00 14:00:00 MAUREEN [id number] [facility] 2021-05-26 2021-05-26 Outpatient R JESS [facility] [id number] Univers 14:00:00 14:00:00 MAUREEN [facility] 2021-05-20 2021-05-20 Outpatient JESS [place] [id number] Univers 13:40:00 13:40:00 MAUREEN [id number] [facility] 2021-05-20 2021-05-20 Outpatient Morro MERCADO [facility] [id number] Univers 13:40:00 13:40:00 MAUREEN [facility] 2021-05-06 2021-05-06 Outpatient Morro MERCADO [facility] [id number] Univers 10:40:00 10:40:00 MAUREEN [id number] [facility] 2021-05-06 2021-05-06 Outpatient Morro MERCADO [facility] [id number] Univers 10:40:00 10:40:00 MAUREEN [facility] 2021-04-28 2021-04-28 Office [facility] 1.2.840.114 [id number] 09:07:52 14:36:33 Visit Maureen Dowling [id number] Jelly [id number] Pranav [phone] [facility] 231 [facility] 2021-04-28 2021-04-28 Outpatient Morro SIUMERCADO, [facility] [id number] Univers 09:20:00 09:20:00 MAUREEN [id number] ity [facility] 2021-04-28 2021-04-28 Outpatient R JESS [facility] [id number] Univers 09:20:00 09:20:00 [facility] 2021-01-11 2021-01-11 Outpatient R RAISSA, [facility] [id number] Univers 12:00:00 12:00:00 JEMMA [id number] [facility] 2021-01-11 2021-01-11 Outpatient R ADUM, [facility] [id number] Univers 00:00:00 00:00:00 JEMMA [facility] 2020-12-28 2020-12-28 Outpatient R ADUM, [facility] [id number] Univers 15:30:00 15:30:00 JEMMA [id number] [facility] 2020-12-28 2020-12-28 Outpatient R RAISSA, [facility] [id number] Univers 15:30:00 15:30:00 JEMMA [facility] 2020-12-23 2020-12-23 Outpatient R PUJA FOLEY [facility] [id number] Univers 13:30:00 13:30:00 PUJA FOLEY [id number] i ty of [facility] 2020-12-23 2020-12-23 Outpatient R PUJA FOLEY [facility] [id number] Univers 13:30:00 13:30:00 PUJA FOLEY i ty of [facility] 2020-12-21 2020-12-21 Outpatient R EVELYN [facility] [id number] Univers 13:00:00 13:00:00 MELANIE [id number] ity o f [facility] 2020-12-21 2020-12-21 Outpatient R EVELYN [facility] RAD [id number] Univers 00:00:00 00:00:00 MELANIE ity o f [facility] 2020-12-09 2020-12-09 Outpatient R PUJA FOLEY [facility] [id number] Univers 14:00:00 14:00:00 PUJA FOLEY [id number] i ty [facility] 2020-12-09 2020-12-09 Outpatient R PUJA FOLEY [facility] [id number] Univers 14:00:00 14:00:00 PUJA FOLEY i ty [facility] 2020-11-30 2020-11-30 Outpatient R LINDA, [facility] [id number] Univers 11:10:00 11:10:00 YARELY [id number] [facility] 2020-11-30 2020-11-30 Outpatient Morro MCKEON, [facility] [id number] Univers 11:10:00 11:10:00 YARELY [facility] 2020-11-23 2020-11-23 Outpatient EVELYN [facility] [id number] Univers 10:00:00 10:00:00 MELANIE Vallecillo309 [facility] 2020-11-18 2020-11-18 [facility]patient [facility] [id number] Univers 14:00:00 14:00:00 MELANIE [facility] 2020-11-18 2020-11-18 Outpatient Morro MERCADO [facility] [id number] Univers 10:40:00 10:40:00 MAUREEN Rabago [facility] 2020-11-18 2020-11-18 Outpatient Morro MERCADO [facility] [id number] Univers 10:40:00 10:40:00 MAUREEN [facility] 2020-11-15 2020-11-15 Outpatient Morro RIVAS [facility] [id number] Univers 13:00:00 13:00:00 MELANIE Vallecillo301 [facility] 2020-11-15 2020-11-15 Outpatient Morro RIVAS [facility] [id number] Univers 13:00:00 13:00:00 MELANIE [facility] 2020-11-09 2020-11-09 Outpatient [facility] [id number] Univers 11:10:00 11:10:00 [id number] [facility] 2020-11-09 2020-11-09 Outpatient R LINDA [facility] [id number] Univers 11:10:00 11:10:00 YARELY ity of [facility] 2020-11-04 2020-11-04 Outpatient R PUJA FOLEY [facility] [id number] Univers 11:20:00 11:20:00 PUJA FOLEY [id number] i ty of [facility] 2020-11-04 2020-11-04 Outpatient R PUJA FOLEY [facility] [id number] Univers 11:20:00 11:20:00 PUJA FOLEY i ty of [facility] 2020-10-13 2020-10-13 Outpatient R [facility] [id number] Univers 14:00:00 14:00:00 [id number] ity [facility] 2020-10-13 2020-10-13 Outpatient R [facility] [id number] Univers 14:00:00 14:00:00 [facility] 2020-09-16 2020-09-16 [facility] [id number] Univers 00:00:00 00:00:00 MAUREEN [id number] [facility] 2020-09-16 2020-09-16 Outpatient R JESS [facility] [id number] Univers 00:00:00 00:00:00 MAUREEN [facility] 2020-08-19 2020-08-19 [facility] [id number] Univers 10:20:00 10:20:00 MAUREEN [facility] 2020-08-19 2020-08-19 Outpatient R JESS [facility] [id number] Univers 10:20:00 10:20:00 MAUREEN [facility] 2020-05-06 2020-05-06 Outpatient [facility] [id number] Univers 12:30:00 12:30:00 [id number] [facility] 2020-05-06 2020-05-06 Outpatient R JUAN FRANCISCO [facility] [id number] Univers 12:30:00 12:30:00 JOLENE [facility] 2020-05-03 2020-05-03 Outpatient R [facility] [id number] Univers 11:15:00 11:15:00 [id number] ity [facility] 2020-05-03 2020-05-03 Outpatient R JUAN FRANCISCO [facility] [id number] Univers 11:15:00 11:15:00 JOLENE ity of [facility] 2020-04-29 2020-04-29 Outpatient R PUJA FOLEY [facility] [id number] Univers 15:20:00 15:20:00 PUJA FOLEY [id number] i ty of [facility] 2020-04-29 2020-04-29 Outpatient R PUJA FOLEY [facility] [id number] Univers 15:20:00 15:20:00 PUJA FOLEY i ty of [facility] 2020-04-12 2020-04-12 Outpatient R JESS [facility] [id number] Univers 14:40:00 14:40:00 MAUREEN [facility] 2020-04-12 2020-04-12 Outpatient R JESS [facility] [id number] Univers 10:40:00 10:40:00 [facility]UREEN [id number] [facility] 2020-03-08 2020-03-08 Outpatient R JESS [facility] [id number] Univers 15:40:00 15:40:00 MAUREEN [id number] [facility] 2020-03-08 2020-03-08 Outpatient R JESS [facility] [id number] Univers 15:40:00 15:40:00 MAUREEN [facility] 2020-02-26 2020-02-26 Outpatient R JESS [facility] [id number] Univers 10:00:00 10:00:00 MAUREEN [facility] 2020-01-12 2020-01-12 Outpatient R JESS [facility] [id number] Univers 09:40:00 09:40:00 MAUREEN [id number] [facility] 2020-01-12 2020-01-12 Outpatient R JESS [facility] [id number] Univers 09:40:00 09:40:00 MAUREEN [facility] 2019-12-23 2019-12-23 Outpatient Morro MERCADO [facility] [id number] Univers 10:20:00 10:20:00 MAUREEN britt [facility] 2019-12-01 2019-12-01 Outpatient DEJUAN RIVERO [facility] [id number] Univers 13:40:00 13:40:00 DEJUAN JADE [id number] [facility] 2019-12-01 2019-12-01 Outpatient DEJUAN RIVERO [facility] [id number] Univers 13:40:00 13:40:00 DEJUAN JADE [facility] Results Test Description Test Time Test Comments Results Result Comments Source CBC WITH DIFF 2021-08-24 01:31:00 Test Item Value Reference Range Interpretation Comme nts WBC (test code = 6690-2) See_Comment H [A utomated message] The system which ge nerated this result transmit veronica reference range: 4.30 - 1 1.10 10*3/?L. The reference r raji was not used to interpr et this result as normal/abnor mal. RBC (test code = 789-8) See_Comment L [Au tomated message] The system which ge nerated this result transmit veronica reference range: 3.93 - 5 .25 10*6/?L. The reference r raji was not used to interpr et this result as normal/abnor mal. HGB (test code = 718-7) 11.1 g/dL 11.6-15.0 L HCT (test code = 4544-3) 33.7 % 35.7-45.2 L MCV (test code = 787-2) 86.9 fL 80.6-95.5 MCH (test code = 785-6) 28.6 pg 25.9-32.8 MCHC (test code = 786-4) 32.9 g/dL 31.6-35.1 RDW-SD (test code = 37732-6) 41.3 fL 39.0-49.9 RDW-CV (test code = 788-0) 13.1 % 12.0-15.5 PLT (test code = 777-3) See_Comment [Au tomated message] The system which ge nerated this result transmit veronica reference range: 166 - 35 8 10*3/?L. The reference range was not used to interpret th is result as normal/abnormal . MPV (test code = 16938-3) 10.4 fL 9.5-12.9 NRBC/100 WBC (test code = See_Comment [ Automated message] The [id number]) system which ge nerated this result transmit veronica reference range: 0.0 - 10 .0 /100 WBCs. The reference r raji was not used to interpr et this result as normal/abnor mal. NRBC x10^3 (test code = <0.01 See_Comment [Au tomated message] The [id number]) system which ge nerated this result transmit veronica reference range: 10*3/?L. The reference range was not u sed to interpret this result as normal/abnormal . GRAN MAT (NEUT) % (test code 69.2 % = 770-8) IMM GRAN % (test code = 0.80 % [id number]) LYMPH % (test code = 736-9) 15.1 % MONO % (test code = 5905-5) 11.7 % EOS % (test code = 713-8) 2.7 % BASO % (test code = 706-2) 0.5 % GRAN MAT x10^3(ANC) (test 8.97 10*3/uL 1.88-7.09 H code = 1875084792) IMM GRAN x10^3 (test code = 0.10 10*3/uL 0.00-0.06 H 5987990049) LYMPH x10^3 (test code = 1.96 10*3/uL 1.32-3.29 731-0) MONO x10^3 (test code = 1.52 10*3/uL 0.33-0.92 H 742-7) EOS x10^3 (test code = 0.35 10*3/uL 0.03-0.39 711-2) BASO x10^3 (test code = 0.07 10*3/uL 0.01-0.07 704-7) Lab Interpretation (test Abnormal code = 93352-4) [facility] [id number] 01:25:16 Test Item Value Reference Interpretation Comments Range TROPONIN I (test 0.009 ng/mL See_Comment [Automated code = [id number]) message] The system which generated this result transmitted reference range : <=0.034. The reference range was not used to interpret this result as normal/abnormal . JUANIS (test code = Reference (Normal) JUANIS) Range (defined by the 99th percentile reference limit): <= 0.034 ng/mL Note: Cardiac troponin begins to rise 3-4 hours after the onset of ischemia. Repeat in 4-6 hours if the sample was drawn within 3-4 hours of the onset of the symptom and found normal. Diagnosis of myocardial injury is made with acute changes in cTn concentrations with at least one serial sample above the 99th percentile upper reference limit (URL), taken together with the patient's clinical presentation. Biotin has been reported to cause a negative bias, interpret results relative to patient's use of biotin. Lab Interpretation Normal (test code = 42279-4) [facility] [id number] 01:21:54 Test Item Value Reference Range Interpretation Comments NT-proBNP (test code 941 pg/mL See_Comment H [Autom ated = [id number]) message] The system which generated this result transmitted reference range : <=125. The reference range was not used to interpret this result as normal/abnormal . JUANIS (test code = JUANIS) Biotin has been reported to cause a negative bias, interpret results relative to patient's use of biotin. Lab Interpretation Abnormal (test code = 27985-8) [facility] (23246)2021-08-24 01:13:16 Test Item Value Reference Range Interpretation Comments NA (test code = 129 mmol/L 135-145 L [id number]) K (test code = 4.4 mmol/L 3.5-5.0 7251282856) CL (test code = 95 mmol/L 98-108 L 9248935225) CO2 TOTAL (test code = 24 mmol/L 23-31 1899439380) AGAP (test code = 2-16 [id number]) BUN (test code = 9 mg/dL 7-23 0469382935) GLUCOSE (test code = 97 mg/dL 70-110 9056673603) CREATININE (test code = 0.55 mg/dL 0.50-1.04 1739167634) TOTAL BILI (test code = 0.8 mg/dL 0.1-1.7 6375860654) CALCIUM (test code = 8.9 mg/dL 8.6-10.6 8020047538) T PROTEIN (test code = 6.8 g/dL 6.3-8.2 7823399046) ALBUMIN (test code = 3.6 g/dL 3.5-5.0 9795935370) ALK PHOS (test code = 89 U/L 34-122 1323258031) ALTv (test code = 16 U/L 5-35 1742-6) AST(SGOT) (test code = 31 U/L 13-40 0943338311) eGFR (test code = mL/min/1.73m2 6483547888) JUANIS (test code = JUANIS) Association of Glomerular Filtration Rate (GFR) and Staging of Kidney Disease* + --+ --+ ------+| GFR (mL/min/1.73 m2) ?| With Kidney Damage ?| ?Without Kidney Damage+ --------+ --------+ +| ?>90 ?| ?Stage one ?| ? Normal ?+ ---+ ---+ -------+| ?60-89 ?| ?Stage two ?| ? Decreased GFR ? + --+ --+ ------+| ?30-59 ?| ?Stage three ?| ? Stage three ? + --+ --+ ------+| ?15-29 ?| ?Stage four ? | ? Stage four ?+ ---+ ---+ -------+| ?<15 (or dialysis) ? ?| ?Stage five ? | ? Stage five ?+ ---+ ---+ -------+ *Each stage assumes the associated GFR level has been in effect for at least three months. ?Stages 1 to 5, with or without kidney disease, indicate chronic kidney disease. Notes: Determination of stages one and two (with eGFR >59mL/min/1.73 m2) requires estimation of kidney damage for at least three months as defined by structural or functional abnormalities of the kidney, manifested by either:Pathological abnormalities or Markers of kidney damage (including abnormalities in the composition of the blood or urine or abnormalities in imaging tests). Lab Interpretation Abnormal (test code = 05723-3) [facility] [id number] 01:03:10 Test Item Value Reference Range Interpretation Comments PROTIME PATIENT (test See_Comment [Auto mated message] code = 5964-2) The system [employer] generated this result transmitted ref erence range: 12.0 - 1 4.7 Seconds. The re ference range was not u sed to interpret this result as normal/abnor mal. INR (test code = 6301-6) Nor mal INR <1.1; Warfarin Therap eutic range 2.0 to 3. 0 or 2.5 to 3.5, dep ending upon the indica tions. Lab Interpretation (test Normal code = 78922-0) [facility]"
[2021-09-01] MEDS ORDERED: SUCCINYLCHOLINE 20 MG/ML (10 ML) IV ONE (09:43)
[2021-09-01] MEDS ORDERED: ETOMIDATE 20 MG/10 ML VIAL IV ONE (09:43)
[2021-09-01] MEDS ORDERED: NA CHLORIDE 0.9% 2,000 ML ONE (09:44)
[2021-09-01] MEDS ORDERED: propofoL 1,000 MG/100 ML VIAL IV ONE ×3 (09:44→23:58)
[2021-09-01 09:58] LABS: Absolute Lymphocytes (CBC) 1.9 K/uL (0.7-4.9); Basophils % 0.9 % (0-1.3); Lymphocytes % 16.1 % (15.3-44.8); MPV 7.1 fL (7.6-11.3); RBC Red Blood Cell Count 4.04 M/uL (3.86-4.86)
[2021-09-01 10:02] LABS: Protime INR 1.02
[2021-09-01 10:16] LABS: ALT/SGPT 14 U/L (12-78); AST/SGOT 9 U/L (15-37); Albumin 2.9 g/dL (3.4-5.0); Alkaline Phosphatase 97 U/L (45-117); BUN Blood Urea Nitrogen 10 mg/dL (7-18); Bicarbonate 30 mmol/L (21-32); Bilirubin Direct < 0.1 mg/dL (0-0.2); Bilirubin Total 0.3 mg/dL (0.2-1.0); Glucose Level 196 mg/dL (74-106); Magnesium 2.4 mg/dL (1.8-2.4); NT PRO-BNP 700 pg/mL (<125); Platelet Estimate INCR; Potassium 4.1 mmol/L (3.5-5.1); Protein, Total 7.7 g/dL (6.4-8.2); Sodium Level 134 mmol/L (136-145); Troponin (Emerg Dept Use Only) < 0.02 ng/mL (0.0-0.045); White Blood Cell Scan OK (OK)
[2021-09-01 10:17] LABS: Blood Morphology Comment NOT SEEN (NOT SEEN); Platelets, Giant FEW
[2021-09-01] MEDS ORDERED: METHYLPREDNISOLONE 125 MG INJ ONE (10:29)
[2021-09-01] MEDS ORDERED: ALBUTEROL 2.5 MG/3 ML NEB SOL ONE ×2 (10:30→19:33)
[2021-09-01] MEDS ORDERED: IPRATROPIUM BROM 0.5MG/2.5ML ONE ×4 (10:30→23:18)
--- NOTE | 2021-09-01 11:17 | RAD REPORT ---
EXAM DESCRIPTION: CT - Chest For Pe Angio - 09/01/2021 11:00 am CLINICAL HISTORY: sob COMPARISON: April 2021 TECHNIQUE: Dynamically enhanced axial 3 mm thick images of the chest were obtained during administra tion of <100> mL Isovue 370 IV contrast. Coronal and oblique reconstruction images were generated and reviewed. Exam utilizes a protocol for optimal evaluation of pulmonary arterial tree. Maximum intensity projections 3D imaging was utilized All CT scans are performed using dose optimization technique as appropriate and may include automated exposure control or mA/KV adjustment according to patient size. FINDINGS: Endotracheal tube tip several centimeters above the sunday A pulmonary embolus is not seen. A thoracic aortic aneurysm is not noted. A pleural effusion is not seen. A pericardial effusion is not seen. Moderate right lower lobe opacities. Minimal additional bilateral pulmonary opacities. COPD IMPRESSION: Negative for a pulmonary embolism. Moderate right lower lobe opacities probably pneumonia. This should be followed until it has cleared to help exclude post obstructive process/underlying mass
--- NOTE | 2021-09-01 11:18 | RAD REPORT ---
EXAM DESCRIPTION: Kierstent Single View09/01/2021 10:14 am CLINICAL HISTORY: Shortness of breath COMPARISON: April 2021 FINDINGS: Endotracheal tube has its tip at the level of the aortic arch. Moderate right basilar lung opacities. Left lung appears clear of acute infiltrate. Heart is normal size IMPRESSION: Moderate right basilar opacities probably pneumonia
[2021-09-01 11:20] LABS: Urine Blood Negative (Negative); Urine Glucose Negative (Negative); Urine Protein Negative (Negative); Urine Specific Gravity 1.015 (1.005-1.030)
[2021-09-01] MEDS ORDERED: NA CHLORIDE 0.9% 500 ML ONE (13:16)
[2021-09-01] MEDS ORDERED: FENTANYL CITR 100 MCG/2 ML ONE (13:16)
[2021-09-01] MEDS ORDERED: MIDAZOLAM HCL 2 MG/2 ML INJ ONE (13:16)
[2021-09-01] MEDS ORDERED: CEFTRIAXONE 1000 MG/VIAL ONE (13:22)
[2021-09-01] MEDS ORDERED: NA CHLORIDE 0.9% 100 ML ONE (13:22)
--- NOTE | 2021-09-01 13:30 | ER ---
Nurse's Notes [facility] Name: Irina Pardo Age: 66 yrs Sex: Female : 1955 Arrival Date: 09/01/2021 Time: 09:25 Bed 25 Private MD: Diagnosis: Dyspnea;Unspecified bacterial pneumonia Presentation: 09/01 09:25 Chief complaint: Patient states: Dyspnea for 2 days. EMS states: O2 sat 75% RA. CPAP ll1 94%. Seen last week for COPD exacerbation. Coronavirus screen: Client denies travel out of the [place] in the last 14 days. congestion, cough unrelated to allergies, difficulty breathing, shortness of breath, Client presents with at least one sign or symptom that may indicate coronavirus-19. Standard/surgical mask placed on the client. Ebola Screen: Patient denies travel to an Ebola-affected area in the 21 days before illness onset. Initial Sepsis Screen: Does the patient meet any 2 criteria? RR > 20 per min. HR > 90 bpm. Yes Does the patient have a suspected source of infection? Yes: Productive cough/pneumonia. Risk Assessment: Do you want to hurt yourself or someone else? Patient reports no desire to harm self or others. Onset of symptoms was August 31, 2021. 09:25 Method Of Arrival: EMS ll1 09:25 Acuity: FRANK 2 ll1 Triage Assessment: 09:30 General: Appears uncomfortable, ill, Behavior is cooperative, appropriate for age, ll1 restless. Pain: Denies pain. Neuro: No deficits noted. Cardiovascular: No deficits noted. Respiratory: Reports shortness of breath at rest labored breathing Airway is compromised Trachea midline Respiratory effort is labored, gasping, Respiratory pattern is tachypnea Breath sounds are diminished bilaterally. GI: No deficits noted. Historical: - Allergies: 09:27 No Known Allergies; ll1 - PMHx: 09:27 COPD; ll1 - PSHx: :27 Unable to Obtain; ll1 - Immunization history:: Adult Immunizations up to date. - Social history:: Smoking status: unknown. Screenin:41 Abuse screen: Denies threats or abuse. Nutritional screening: No deficits noted. ll1 Tuberculosis screening: No symptoms or risk factors identified. Fall Risk IV access (20 points). Gait- Impaired (20 pts.). Total Thomas Fall Scale indicates High Risk Score (45 or more points). Fall prevention measures have been instituted. Side Rails Up X 2 Placed Close to Nursing Station Frequent Obs/Assessments Occuring As available patient and family educated on Fall Prevention Program and Strategies. Assessment: 10:30 Reassessment: No changes from previously documented assessment. Patient and/or family ll1 updated on plan of care and expected duration. Pain level reassessed. 11:11 Reassessment: No changes from previously documented assessment. Patient and/or family ll1 updated on plan of care and expected duration. Pain level reassessed. back from CT. 11:32 Reassessment: No changes from previously documented assessment. Patient and/or family ll1 updated on plan of care and expected duration. Pain level reassessed. Patient states symptoms have improved. 11:47 Reassessment: NAZIA PARDO [phone]. bp 12:30 Reassessment: No changes from previously documented assessment. Patient and/or family ll1 updated on plan of care and expected duration. Pain level reassessed. 13:30 Reassessment: No changes from previously documented assessment. Patient and/or family ll1 updated on plan of care and expected duration. Pain level reassessed. 14:30 Reassessment: No changes from previously documented assessment. Patient and/or family ll1 updated on plan of care and expected duration. Pain level reassessed. Vital Signs: 09:25 BP 193 / 134; Pulse 142; Resp 34; Pulse Ox 94% on BiPAP; Weight 81.65 kg; Pain 0/10; ll1 09:36 Temp 98.5; ll1 10:00 BP 98 / 71; Pulse 130; Resp 34; Pulse Ox 100% ; ll1 10:01 BP 127 / 94; Pulse 130; Resp 22 A; Pulse Ox 100% on ETT ambu; iw 10:15 BP 104 / 91; Pulse 134; Pulse Ox 97% on ETT vent; ll1 10:30 BP 113 / 93; Pulse 129; Pulse Ox 97% on ETT vent; ll1 11:11 BP 102 / 57; Pulse 115; Resp 20; Pulse Ox 100% on ETT vent; ll1 11:21 BP 109 / 79; Pulse 115; Resp 18; Temp 98.4(TE); Pulse Ox 100% ; Pain 0/10; ll1 12:20 BP 103 / 73; Pulse 105; Resp 16; Pulse Ox 95% on ETT vent; ll1 12:26 BP 103 / 89; Pulse 106; Resp 16; Pulse Ox 95% on ETT vent; ll1 13:05 BP 104 / 75; Pulse 100; Resp 17; Pulse Ox 97% ; ll1 13:29 BP 92 / 54; Pulse 104; Resp 18; Temp 98.4; Pulse Ox 95% on ETT vent; ll1 13:48 BP 144 / 84; Pulse 101; Resp 18; Pulse Ox 95% ; ll1 14:06 BP 118 / 82; Pulse 96; Resp 16; Pulse Ox 99% on ETT vent; ll1 14:37 BP 129 / 67; Pulse 87; Resp 16; Pulse Ox 99% on ETT vent; ll1 15:12 BP 133 / 59; Pulse 89; Resp 16; Pulse Ox 100% on ETT vent; ll1 15:24 BP 115 / 58; Pulse 119; Resp 28; Pulse Ox 94% on ETT vent; ll1 16:19 BP 120 / 82; Pulse 110; Resp 18; Pulse Ox 95% on ETT vent; ll1 ED Course: 09:25 Patient arrived in ED. em1 09:27 Triage completed. ll1 09:27 Arm band placed on Patient placed in an exam room, on a stretcher. ll1 09:27 Maintain EMS IV. Dressing intact. Good blood return noted. Site clean \\T\\ dry. Gauge \\T\\ ll 1 site: 20 L FA. 09:31 Dennis Flores MD is Attending Physician. kdr 09:35 Marimar Hughes, ALFREDO is Primary Nurse. ll1 09:50 Patient has correct armband on for positive identification. Bed in low position. Call ll1 light in reach. Side rails up X2. patient monitor on. Pulse ox on. NIBP on. 09:56 Assisted provider with intubation using 7.5 mm ETT via oral route. ET tube secured at iw 23cm at the teeth. Set up intubation tray. Intubated by Dennis Flores MD Placement verified by CO2 detector w/ + color change, auscultating bilateral breath sounds, CXR, Patient tolerated well. 10:00 SARS-COV-2 RT PCR (Document "Date of Onset" if Symptomatic) Sent. kj1 10:00 Basic Metabolic Panel Sent. kj1 10:00 D-Dimer Sent. kj1 10:14 XRAY Chest (1 view) In Process Unspecified. EDMS 10:20 Inserted saline lock: 20 gauge in left antecubital area, using aseptic technique. Blood ll1 collected. 10:30 Michelle cath inserted, using sterile technique, 16 Fr., by wa, balloon inflated, to ll1 gravity drainage, urine specimen collected. 10:59 CT Chest For PE Angio In Process Unspecified. EDMS 11:00 Inserted saline lock: 22 gauge in left hand, using aseptic technique. IV discontinued, ll1 intact, bleeding controlled, Pressure dressing applied, IV L FA came out during transfer for CT. 13:21 Sol Thomas MD is Hospitalizing Provider. kdr 13:48 NGT: inserted [address] verified placement of air over stomach, to intermittent suction. ll1 Patient tolerated well. ORAL GASTRIC TUBE. Administered Medications: 10:00 Drug: NS 0.9% 250 ml Route: IV; Rate: bolus; Site: left antecubital; ll1 10:35 Follow up: Response: No adverse reaction; IV Status: Completed infusion; IV Intake: ll1 250ml 10:35 Drug: SOLU-Medrol (methylPrednisoLONE) 125 mg Route: IVP; Site: left forearm; ll1 11:08 Follow up: Response: No adverse reaction ll1 11:10 Drug: Albuterol - atroVENT (ipratropium) (3:1) (2.5 mg - 0.5 mg) 3 ml Route: Nebulizer; ll1 13:05 Follow up: Response: No adverse reaction ll1 13:25 Drug: Versed (midazolam) 4 mg Route: IVP; Site: left hand; ll1 13:26 Drug: fentaNYL (PF) 50 mcg Route: IVP; Site: left hand; ll1 13:27 Drug: Rocephin - (cefTRIAXone) 1 grams Route: IVPB; Infused Over: 30 mins; Site: left ll1 antecubital; 13:27 Drug: NS 0.9% 500 ml Route: IV; Rate: bolus; Site: left hand; ll1 Intake: 10:35 IV: 250ml; Total: 250ml. ll1 Output: 13:18 Urine: 385ml (Michelle); Total: 385ml. ll1 14:01 Urine: 60ml (Michelle); Total: 445ml. ll1 14:51 Urine: 125ml (Michelle); Gastric: 100ml (OGT); Total: 670ml. ll1 Outcome: 13:30 Decision to Hospitalize by Provider. kdr 19:54 Admitted to ICU Report called to report given to JOSE D [facility] 19:54 Condition: stable 19:54 Instructed on the need for admit. 09/03 00:58 Patient left the ED. taylor Signatures: Dispatcher [employer] EDMT Rula Souza, ALFREDO RN Dennis Cuevas MD MD kdr Williams, Irene, RN RN iw Martinez, Eric emWilver Cordova RN RN Alexandra Encarnacion Lynsay RN RN ll1 Guadalupe Noble [facility]
--- NOTE | 2021-09-01 13:30 | EDPHYS ---
Physician Documentation [facility] Name: Irina Pardo Age: 66 yrs Sex: Female : 1955 Arrival Date: 09/01/2021 Time: 09:25 Bed 25 Private MD: ED Physician Dennis Flores HPI: 09/01 09:50 This 66 yrs old Female presents to ER via EMS with complaints of Shortness of breath. kdr 09:50 The patient has shortness of breath at rest. Onset: The symptoms/episode began/occurred kdr at an unknown time. Duration: The symptoms are continuous. 09:51 Patient was reported by EMS to have 2 days of shortness of breath. On their arrival kdr they noted that her oxygen saturation was 75% on room air. They promptly put her on CPAP and her saturation improved to 94%. They also report that she was seen last week for COPD exacerbation. She normally goes to [facility] however given her condition EMS brought her to this facility today. No other information was initially available. 10:01 The patient's shortness of breath has no apparent modifying factors. Associated signs kdr and symptoms: Pertinent positives: non-productive cough, productive cough, Pertinent negatives: fever, hemoptysis. Severity of symptoms: At their worst the symptoms were incapacitating in the emergency department the symptoms are unchanged. The patient has experienced similar episodes in the past, History who is seen is recently last week at [facility]. The patient has been recently seen by a physician: 1 week(s) ago, with similar presenting complaints. Historical: - Allergies: 09:27 No Known Allergies; ll1 - PMHx: 09:27 COPD; ll1 - PSHx: 09:27 Unable to Obtain; ll1 - Immunization history:: Adult Immunizations up to date. - Social history:: Smoking status: unknown. ROS: 10:01 Constitutional: Negative for fever, chills, and weight loss, patient is a poor kdr historian due to her respiratory status and poor responsiveness Eyes: Negative for injury, pain, redness, and discharge, ENT: Negative for injury, pain, and discharge. 10:01 Unable to obtain ROS due to altered mental status, patient's speech is incomprehensible. Exam: 10:01 Constitutional: This is a well developed, well nourished patient who is awake, alert, kdr and in moderate to severe distress. Head/Face: Normocephalic, atraumatic. Eyes: Pupils equal round and reactive to light, extra-ocular motions intact. Lids and lashes normal. Conjunctiva and sclera are non-icteric and not injected. Cornea within normal limits. Periorbital areas with no swelling, redness, or edema. Neck: Trachea midline, no thyromegaly or masses palpated, and no cervical lymphadenopathy. Supple, full range of motion without nuchal rigidity, or vertebral point tenderness. No Meningismus. Chest/axilla: Normal chest wall appearance and motion. Nontender with no deformity. No lesions are appreciated. Abdomen/GI: Soft, non-tender, with normal bowel sounds. No distension or tympany. No guarding or rebound. No evidence of tenderness throughout. Back: No spinal tenderness. No costovertebral tenderness. Full range of motion. Skin: Warm, dry with normal turgor. Normal color with no rashes, no lesions, and no evidence of cellulitis. MS/ Extremity: Pulses equal, no cyanosis. Neurovascular intact. Full, normal range of motion. Neuro: Awake and alert, GCS 15, oriented to person, place, time, and situation. Cranial nerves II-XII grossly intact. Motor strength 5/5 in all extremities. Sensory grossly intact. Cerebellar exam normal. Normal gait. Psych: Awake, alert, with orientation to person, place and time. Behavior, mood, and affect are within normal limits. 10:01 Cardiovascular: Rate: tachycardic, Rhythm: Pulses: no pulse deficits are appreciated, Edema: is not appreciated. 10:01 ECG was reviewed by the Attending Physician. Vital Signs: 09:25 BP 193 / 134; Pulse 142; Resp 34; Pulse Ox 94% on BiPAP; Weight 81.65 kg; Pain 0/10; ll1 09:36 Temp 98.5; ll1 10:00 BP 98 / 71; Pulse 130; Resp 34; Pulse Ox 100% ; ll1 10:01 BP 127 / 94; Pulse 130; Resp 22 A; Pulse Ox 100% on ETT ambu; iw 10:15 BP 104 / 91; Pulse 134; Pulse Ox 97% on ETT vent; ll1 10:30 BP 113 / 93; Pulse 129; Pulse Ox 97% on ETT vent; ll1 11:11 BP 102 / 57; Pulse 115; Resp 20; Pulse Ox 100% on ETT vent; ll1 11:21 BP 109 / 79; Pulse 115; Resp 18; Temp 98.4(TE); Pulse Ox 100% ; Pain 0/10; ll1 12:20 BP 103 / 73; Pulse 105; Resp 16; Pulse Ox 95% on ETT vent; ll1 12:26 BP 103 / 89; Pulse 106; Resp 16; Pulse Ox 95% on ETT vent; ll1 13:05 BP 104 / 75; Pulse 100; Resp 17; Pulse Ox 97% ; ll1 13:29 BP 92 / 54; Pulse 104; Resp 18; Temp 98.4; Pulse Ox 95% on ETT vent; ll1 13:48 BP 144 / 84; Pulse 101; Resp 18; Pulse Ox 95% ; ll1 14:06 BP 118 / 82; Pulse 96; Resp 16; Pulse Ox 99% on ETT vent; ll1 14:37 BP 129 / 67; Pulse 87; Resp 16; Pulse Ox 99% on ETT vent; ll1 15:12 BP 133 / 59; Pulse 89; Resp 16; Pulse Ox 100% on ETT vent; ll1 15:24 BP 115 / 58; Pulse 119; Resp 28; Pulse Ox 94% on ETT vent; ll1 16:19 BP 120 / 82; Pulse 110; Resp 18; Pulse Ox 95% on ETT vent; ll1 Procedures: 10:13 Intubation: Intubated orally using Standard adult glide scope with 7.0 mm ETT. was kdr successful on first attempt. Ventilated with Ambu bag. ventilator. Tube secured with ETT fragoso at center of mouth measured 23 cm at lip. MDM: 10:13 Data reviewed: vital signs, nurses notes, lab test result(s), radiologic studies. kdr 13:30 Patient medically screened. kdr 13:32 ED course: The case with Dr. Finnegan in consult. He agreed to see the patient.. kdr 09/01 09:32 Order name: Basic Metabolic Panel kdr 09/01 09:32 Order name: CBC with Diff; Complete Time: 11:14 kdr 1216 09:32 Order name: LFT's; Complete Time: 11:14 kdr 12 09:32 Order name: Magnesium; Complete Time: 11:14 kdr 12 09:32 Order name: NT PRO-BNP; Complete Time: 11:14 kdr 1216 09:32 Order name: PT-INR; Complete Time: 11:14 kdr 1216 09:32 Order name: Troponin (emerg Dept Use Only); Complete Time: 11:14 kdr 1216 09:32 Order name: D-Dimer; Complete Time: 11:14 kdr 1216 09:33 Order name: Basic Metabolic Panel; Complete Time: 11:14 EDMS 12 09:38 Order name: SARS-COV-2 RT PCR (Document "Date of Onset" if Symptomatic); Complete Time: em1 11:14 1216 09:46 Order name: Lactate; Complete Time: 11:14 em1 16 09:46 Order name: Procalcitonin; Complete Time: 11:14 em1 16 09:46 Order name: Blood Culture Adult (2) em1 12/16 09:59 Order name: CBC Smear Scan; Complete Time: 11:14 EDMS 12 11:20 Order name: Urine Dipstick-Ancillary; Complete Time: 12:02 EDMS 09/01 13:24 Order name: ABG em1 09/01 13:25 Order name: ABG Arterial Blood Gas; Complete Time: 19:08 EDMS 09/01 16:08 Order name: Comprehensive Metabolic Panel EDMS 09/01 16:08 Order name: Comprehensive Metabolic Panel EDMS 09/01 16:08 Order name: Magnesium EDMS 09/01 16:08 Order name: Magnesium EDMS 09/01 16:08 Order name: Phosphorus EDMS 09/01 16:08 Order name: Phosphorus EDMS 09/01 17:23 Order name: Troponin I; Complete Time: 19:08 EDMS 09/01 18:07 Order name: Glucose, Ancillary Testing; Complete Time: 19:08 EDMS 09/01 21:18 Order name: Troponin I EDMS 09/01 21:26 Order name: Glucose, Ancillary Testing EDMS 09/02 04:31 Order name: CBC with Automated Diff EDMS 09/02 06:32 Order name: ABG Arterial Blood Gas EDMS 09/02 07:28 Order name: Gram Stain--Anaerobic Bottle EDMS 09/01 09:32 Order name: XRAY Chest (1 view); Complete Time: 12:02 [facility] 09/01 09:32 Order name: EKG; Complete Time: 09:33 kdr 09/01 09:32 Order name: Cardiac monitoring; Complete Time: 10:01 [facility] 09/01 09:32 Order name: EKG - Nurse/Tech; Complete Time: 10:01 [facility] 09/01 09:32 Order name: IV Saline Lock; Complete Time: 09:35 kdr 12 09:32 Order name: Labs collected and sent; Complete Time: 09:35 [facility] 09/01 09:32 Order name: O2 Per Protocol; Complete Time: 09:35 [facility] 09/01 09:32 Order name: O2 Sat Monitoring; Complete Time: 09:35 [facility] 09/01 10:12 Order name: CT Chest For PE Angio; Complete Time: 12:02 [facility] 09/01 16:08 Order name: CONS Physician Consult EDWI 09/01 16:08 Order name: Physical Therapy Consult EDWI 09/02 08:59 Order name: RAD EDWI 09/02 10:03 Order name: Gram Stain--Aerobic Bottle EDWI 09/02 12:11 Order name: Glucose, Ancillary Testing EDWI 09/02 16:49 Order name: Glucose, Ancillary Testing EDMS 09/02 16:50 Order name: Glucose, Ancillary Testing EDMS 09/02 19:50 Order name: Glucose, Ancillary Testing EDMS EC:01 Rate is 130 beats/min. Rhythm is regular, Sinus tachycardia with No ectopy. QRS [place] is kdr Normal. PA interval is normal. QRS interval is normal. Clinical impression: Sinus tachycardia and Is ischemic changes in leads V3 through V5. Administered Medications: 10:00 Drug: NS 0.9% 250 ml Route: IV; Rate: bolus; Site: left antecubital; ll1 10:35 Follow up: Response: No adverse reaction; IV Status: Completed infusion; IV Intake: ll1 250ml 10:35 Drug: SOLU-Medrol (methylPrednisoLONE) 125 mg Route: IVP; Site: left forearm; ll1 11:08 Follow up: Response: No adverse reaction ll1 11:10 Drug: Albuterol - atroVENT (ipratropium) (3:1) (2.5 mg - 0.5 mg) 3 ml Route: Nebulizer; ll1 13:05 Follow up: Response: No adverse reaction 1 13:25 Drug: Versed (midazolam) 4 mg Route: IVP; Site: left hand; ll1 13:26 Drug: fentaNYL (PF) 50 mcg Route: IVP; Site: left hand; ll1 13:27 Drug: Rocephin - (cefTRIAXone) 1 grams Route: IVPB; Infused Over: 30 mins; Site: left ll1 antecubital; 13:27 Drug: NS 0.9% 500 ml Route: IV; Rate: bolus; Site: left hand; ll1 Disposition Summary: 09/01/21 13:30 Hospitalization Ordered Hospitalization Status: Inpatient Admission kdr Provider: Sol Thomas Condition: Serious kdr Problem: new kdr Symptoms: have improved kdr Bed/Room Type: Standard kdr Location: [facility] ER HOLD(09/01/21 20:08) Room Assignment: ERHOLD-(09/01/21 20:08) mw Diagnosis - Dyspnea kdr - Unspecified bacterial pneumonia kdr Forms: - Medication Reconciliation Form kdr - SBAR form kdr Signatures: Dispatcher [employer] EDRula Saravia RN RN Dennis Flores MD MD kdr Marimar Hughes RN RN ll1 Corrections: (The following items were deleted from the chart) 20:08 13:30 Intensive Care Unit kdr mw 20:08 13:30 kdr mw
[2021-09-01 13:54] LABS: Arterial Blood Carboxyhemoglob 0.4 % (0-1.5); Blood Gas Oxyhemoglobin 90.1 % (94-97); Blood O2 Saturation 92.2 % (92-98.5)
--- NOTE | 2021-09-01 15:13 | P.HP ---
Certification for Inpatient Patient admitted to: Inpatient With expected LOS: >2 Midnights Practitioner: I am a practitioner with admitting privileges, knowledge of patient current condition, hospital course, and medical plan of care. Services: Services provided to patient in accordance with Admission requirements found in Title 42 Section 412.3 of the Code of Federal Regulations Patient History Date of Service: 09/01/21 Reason for admission: Respiratory distress History of Present Illness: 66-year-old man with a known history of COPD was brought to the emergency department in acute respiratory distress. According to report she was found with oxygen saturation of 72%. EMS placed him on CPAP and brought him to the ED where she was intubated due to respiratory distress on the CPAP. Patient sedated and on mechanical ventilation is unable to provide any history. Patient with tachypnea and tachycardia secondary to respiratory distress. No sepsis. CTA thorax demonstrates right lower lobe pneumonia. Patient is admitted to the ICU for further management. Allergies No Known Allergies Allergy (Unverified 09/01/21 14:40) - Past Medical/Surgical History -: COPD -: Unable to obtain - Social History Smoking Status: Unknown if ever smoked Place of Residence: Home Review of Systems is unable to be obtained (Due to sedation on mechanical ventilation.) Physical Examination - Physical Exam General: Other (Sedated) HEENT: Normocephalic, PERRLA, Other (Intubated on mechanical ventilation), Sclerae nonicteric Neck: Supple, JVD not distended Respiratory: Diminished (Bilateral lungs), Other (Mechanical ventilation.) Cardiovascular: No edema, Normal S1 S2, Other (Tachycardia) Gastrointestinal: Normal bowel sounds, Soft and benign, Non-distended, No tenderness Musculoskeletal: No swelling Integumentary: No rashes, No erythema Neurological: Other (Sedated. Moves all extremities spontaneously.) Lymphatics: No axilla or inguinal lymphadenopathy - Studies Laboratory Data (last 24 hrs) 09/01/21 09:43: PT 11.7, INR 1.02 09/01/21 09:43: WBC 11.60 H, Hgb 11.5 L, Hct 35.0 L, Plt Count 726 H 09/01/21 09:43: Sodium 134 L, Potassium 4.1, BUN 10, Creatinine 0.94, Glucose 196 H, Magnesium 2.4 D, Total Bilirubin 0.3, AST 9 L, ALT 14, Alkaline Phosphatase 97 Assessment and Plan - Problems (Diagnosis) (1) Acute respiratory failure with hypoxia Current Visit: Yes Status: Acute (2) COPD exacerbation Current Visit: Yes Status: Acute (3) Pneumonia Current Visit: Yes Status: Acute - Plan Admit to the ICU. Patient on mechanical ventilation. Scheduled bronchodilators. Start IV Rocephin and Zithromax. IV Solu-Medrol IV fluid maintenance. NG tube in place. Michelle catheter for strict intake and output monitoring. Consult to pulmonary Tracheal aspirate for Gram stain and culture. Chest physiotherapy. Consult respiratory therapy. Follow blood cultures. - Advance Directives Does patient have a Living Will: No Does patient have a Durable POA for Healthcare: No
[2021-09-01] MEDS: NA CHLORIDE 0.9% 1,000 ML IV SCH (16:07)
[2021-09-01] MEDS ORDERED: ONDANSETRON 4 MG/2 ML VIAL IV PRN (16:07)
[2021-09-01] MEDS ORDERED: ACETAMINOPHEN 650MG/RECT SUPP PR PRN (16:07)
[2021-09-01] MEDS: INSULIN -REGULAR HUMAN 50 UNIT/0.5 ML ML SQ SCH ×2 (16:30→21:21)
[2021-09-01] MEDS: IPRATROPIUM BROM 0.5MG/2.5ML NEB SCH ×3 (16:37→23:20)
[2021-09-01] MEDS: ENOXAPARIN 40 MG/0.4 ML SQ SCH (17:00)
[2021-09-01 17:21] VITALS: BMI 32.9
[2021-09-01] MEDS ORDERED: propofoL 1,000 MG/100 ML VIAL IV PRN (17:34)
[2021-09-01] MEDS ORDERED: METHYLPREDNISOLONE 40 MG INJ ONE ×2 (17:43→23:57)
[2021-09-01] MEDS ORDERED: ENOXAPARIN 40 MG/0.4 ML SQ ONE (17:44)
[2021-09-01] MEDS: METHYLPREDNISOLONE 40 MG INJ IV SCH ×2 (17:57→23:59)
[2021-09-01] MEDS: ALBUTEROL 2.5 MG/3 ML NEB SOL NEB SCH (19:30)
[2021-09-01] MEDS ORDERED: INSULIN -REGULAR HUMAN 50 UNIT/0.5 ML ML ONE (21:18)
[2021-09-01] MEDS ORDERED: FAMOTIDINE 20 MG/2 ML VIAL IV ONE (21:19)
[2021-09-01] MEDS: FAMOTIDINE 20 MG/2 ML VIAL IV SCH (21:20)
[2021-09-01] MEDS ORDERED: LORazepam 2 MG/ML VIAL ONE (21:46)
[2021-09-01] MEDS: LORazepam 2 MG/ML VIAL IV PRN (21:49)
[2021-09-02] MEDS ORDERED: NA CHLORIDE 0.9% 1,000 ML ONE ×2 (01:03→14:44)
[2021-09-02] MEDS: NA CHLORIDE 0.9% 1,000 ML IV SCH ×3 (01:04→22:07)
[2021-09-02] MEDS ORDERED: ALBUTEROL 2.5 MG/3 ML NEB SOL ONE ×4 (01:48→19:29)
[2021-09-02] MEDS ORDERED: IPRATROPIUM BROM 0.5MG/2.5ML ONE ×4 (01:48→19:30)
[2021-09-02] MEDS ORDERED: LORazepam 2 MG/ML VIAL ONE ×4 (02:36→19:16)
[2021-09-02] MEDS: LORazepam 2 MG/ML VIAL IV PRN ×3 (02:37→19:18)
[2021-09-02] MEDS: ALBUTEROL 2.5 MG/3 ML NEB SOL NEB SCH ×4 (03:40→19:30)
[2021-09-02] MEDS: IPRATROPIUM BROM 0.5MG/2.5ML NEB SCH ×4 (03:40→19:30)
[2021-09-02 04:29] LABS: Absolute Lymphocytes (CBC) 0.4 K/uL (0.7-4.9); Basophils % 0.1 % (0-1.3); Hematocrit 27.4 % (36.0-45.0); Lymphocytes % 2.2 % (15.3-44.8); MPV 6.9 fL (7.6-11.3)
[2021-09-02 04:45] LABS: ALT/SGPT 10 U/L (12-78); AST/SGOT 6 U/L (15-37); Alkaline Phosphatase 66 U/L (45-117); BUN Blood Urea Nitrogen 10 mg/dL (7-18); Bicarbonate 24 mmol/L (21-32); Bilirubin Total 0.2 mg/dL (0.2-1.0); Glucose Level 133 mg/dL (74-106); Magnesium 2.1 mg/dL (1.8-2.4); Phosphorus 2.8 mg/dL (2.5-4.9); Protein, Total 5.9 g/dL (6.4-8.2); Sodium Level 136 mmol/L (136-145)
[2021-09-02] MEDS ORDERED: METHYLPREDNISOLONE 40 MG INJ ONE ×2 (05:38→17:04)
[2021-09-02] MEDS: METHYLPREDNISOLONE 40 MG INJ IV SCH ×2 (06:04→17:08)
[2021-09-02 06:29] LABS: Arterial Blood Carboxyhemoglob 0.5 % (0-1.5); Blood Gas Oxyhemoglobin 92.6 % (94-97); Blood O2 Saturation 94.8 % (92-98.5)
[2021-09-02] MEDS: INSULIN -REGULAR HUMAN 50 UNIT/0.5 ML ML SQ SCH ×4 (07:30→19:50)
[2021-09-02] MEDS ORDERED: FAMOTIDINE 20 MG/2 ML VIAL IV ONE ×2 (08:00→19:17)
[2021-09-02] MEDS ORDERED: ENOXAPARIN 40 MG/0.4 ML SQ ONE (08:00)
[2021-09-02] MEDS ORDERED: CEFTRIAXONE 1000 MG/VIAL ONE (08:00)
[2021-09-02] MEDS ORDERED: NA CHLORIDE 0.9% 50 ML ONE (08:01)
[2021-09-02] MEDS: FAMOTIDINE 20 MG/2 ML VIAL IV SCH ×2 (08:03→19:26)
[2021-09-02] MEDS: CEFTRIAXONE 1,000 MG in NA CHLORIDE 0.9% 50 ML IVPB SCH (08:03)
[2021-09-02] MEDS: ENOXAPARIN 40 MG/0.4 ML SQ SCH (08:03)
[2021-09-02] MEDS ORDERED: FENTANYL CITR 100 MCG/2 ML ONE ×3 (08:26→19:46)
[2021-09-02] MEDS: FENTANYL CITR 100 MCG/2 ML IV PRN ×2 (08:49→19:49)
--- NOTE | 2021-09-02 08:58 | RAD REPORT ---
EXAM DESCRIPTION: RAD - Chest Single View - 09/02/2021 5:44 am CLINICAL HISTORY: ET Position Chest pain. COMPARISON: Chest Single View dated 09/01/2021; Chest Single View dated 05/02/2021; Chest For Pe Christina o dated 09/01/2021 FINDINGS: Portable technique limits examination quality. Tip of the endotracheal tube is at the level of the superior aortic arch, normal placement. Enteric t ube tip is in the stomach. Right lower lobe of the lung infiltrate appears slightly worse compared to prior study. The heart is normal in size.Cervical hardware plate noted.
[2021-09-02] MEDS: AZITHROMYCIN IV 500 MG in NA CHLORIDE 0.9% 250 ML IVPB SCH (09:04)
[2021-09-02] MEDS ORDERED: POLYETHYL GLY 3350 17 GM/DOSE ONE (09:56)
--- NOTE | 2021-09-02 10:21 | EKG ---
Test Date: 2021-09-01 Test Time: 09:54:33 Printer Slotter Feeder: LML MEASUREMENT RESULTS: Intervals: Rate: 141 HI: QRSD: 74 QT: 350 QTc: 536 Robbins: P: HI: QRS: 80 T: 89 INTERPRETIVE STATEMENTS: Supraventricular tachycardia with occasional premature ventricular complexes ST & T wave abnormality, consider lateral ischemia Abnormal ECG Compared to ECG 05/02/2021 19:34:02 Ventricular premature complex(es) now present Possible ischemia now present Sinus tachycardia no longer present Atrial abnormality no longer present ST (T wave) deviation still present Electronically Signed On 09-02-21 10:19:37 REST ROOM ATTENDANT by Narayan Hinojosa
--- NOTE | 2021-09-02 11:31 | P.CNS ---
Date of Consult: 09/02/21 Reason for Consult: Respiratory failure Chief Complaint: Respiratory distress History of Present Illness: Patient is 66 years of age with a history of COPD admitted from the emergency department with respiratory distress and was intubated currently stable normal oxygen requirements Patient has a right lower lobe pneumonia Allergies No Known Allergies Allergy (Unverified 09/01/21 14:40) - Past Medical/Surgical History -: COPD -: stroke -: Unable to obtain - Social History Smoking Status: Unknown if ever smoked Place of Residence: Home Review of Systems is unable to be obtained Physical Examination Temp Pulse Resp BP Pulse Ox 97.1 F 97 H 17 117/77 89 L 09/02/21 07:00 09/02/21 09:00 09/02/21 09:00 09/02/21 09:00 09/02/21 09:00 General: Unresponsive Respiratory: Expiratory wheezes Cardiovascular: No edema, Normal S1 S2 Gastrointestinal: Non-distended - Problems (1) Acute respiratory failure with hypoxia Current Visit: Yes Status: Acute Plan: Patient is 66 years of age with a history of COPD admitted with respiratory failure currently on a ventilator labs reviewed oxygenation satisfactory patient is on 30% FiO2 plan to wean (2) Pneumonia Current Visit: Yes Status: Acute Plan: Patient has presumed acute right lower lobe pneumonia on Rocephin and Zithromax serum cultures ordered hemodynamically stable blood cultures 1 out of 4 shows aerobic gram-positive cocci in clusters Qualifiers: Pneumonia type: due to unspecified organism
--- NOTE | 2021-09-02 17:08 | P.PN ---
Subjective Date of Service: 09/02/21 Chief Complaint: Respiratory distress Patient remains on mechanical ventilation, currently on SIMV and 30% FiO2. Patient is awake on the vent. Physical Examination - Vital Signs Temperature: 97.6 F Blood Pressure: 117/95 Pulse: 111 Respirations: 26 Pulse Ox (%): 96 - Physical Exam General: In no apparent distress, Other (Awake) HEENT: Other (Intubated) Neck: JVD not distended Respiratory: Clear to auscultation bilaterally, Normal air movement, Other (Upper airway transmitted sounds) Cardiovascular: No edema, Normal S1 S2, Other (Tachycardia) Gastrointestinal: Soft and benign, Non-distended, No tenderness Musculoskeletal: No swelling Integumentary: No rashes Neurological: Other (No focal motor deficits) - Studies Microbiology Data (last 24 hrs): 09/01/21 11:00 Blood - Blood Blood Culture Gram Stain - Final 09/01/21 11:00 Blood - Blood Gram Stain - Final Assessment And Plan - Current Problems (Diagnosis) (1) Acute respiratory failure with hypoxia Current Visit: Yes Status: Acute (2) COPD exacerbation Current Visit: Yes Status: Acute (3) Pneumonia Current Visit: Yes Status: Acute Qualifiers: Pneumonia type: due to unspecified organism - Plan Pulmonary input appreciated. Weaning trials starting from today Continue scheduled bronchodilators. Continue IV Rocephin and Zithromax. IV Solu-Medrol IV fluid maintenance. NG tube in place. Michelle catheter for strict intake and output monitoring. Tracheal aspirate for Gram stain and culture. Chest physiotherapy. Follow blood cultures.
[2021-09-03] MEDS: LORazepam 2 MG/ML VIAL IV PRN ×6 (00:30→21:59)
[2021-09-03] MEDS: FENTANYL CITR 100 MCG/2 ML IV PRN ×5 (01:30→23:10)
[2021-09-03] MEDS: METHYLPREDNISOLONE 40 MG INJ IV SCH ×3 (01:53→18:30)
[2021-09-03] MEDS: IPRATROPIUM BROM 0.5MG/2.5ML NEB SCH ×4 (02:30→19:40)
[2021-09-03] MEDS: ALBUTEROL 2.5 MG/3 ML NEB SOL NEB SCH ×4 (02:30→19:40)
[2021-09-03 05:17] LABS: Absolute Lymphocytes (CBC) 0.7 K/uL (0.7-4.9); Basophils % 0.1 % (0-1.3); Hematocrit 27.8 % (36.0-45.0); Lymphocytes % 6.3 % (15.3-44.8); MPV 7.3 fL (7.6-11.3); RBC Red Blood Cell Count 3.21 M/uL (3.86-4.86)
[2021-09-03 05:28] LABS: BUN Blood Urea Nitrogen 11 mg/dL (7-18); Bicarbonate 24 mmol/L (21-32); Glucose Level 109 mg/dL (74-106); Sodium Level 138 mmol/L (136-145)
[2021-09-03] MEDS: INSULIN -REGULAR HUMAN 50 UNIT/0.5 ML ML SQ SCH ×4 (07:30→21:00)
[2021-09-03] MEDS: AZITHROMYCIN IV 500 MG in NA CHLORIDE 0.9% 250 ML IVPB SCH (07:52)
[2021-09-03] MEDS: FAMOTIDINE 20 MG/2 ML VIAL IV SCH ×2 (07:52→21:39)
[2021-09-03] MEDS: ENOXAPARIN 40 MG/0.4 ML SQ SCH (07:53)
[2021-09-03] MEDS: CEFTRIAXONE 1,000 MG in NA CHLORIDE 0.9% 50 ML IVPB SCH (07:53)
[2021-09-03] MEDS: NA CHLORIDE 0.9% 1,000 ML IV SCH ×3 (08:07→18:07)
--- NOTE | 2021-09-03 10:46 | RAD REPORT ---
EXAM DESCRIPTION: RAD - Chest Single View - 09/03/2021 6:08 am CLINICAL HISTORY: ET Position Chest pain. COMPARISON: Chest Single View dated 09/02/2021; Chest Single View dated 09/01/2021; Chest Single Vie w dated 05/02/2021 FINDINGS: Portable technique limits examination quality. Tip of the endotracheal tube is at the level superior aortic arch, appropriately located. Enteric tub e descends into the abdomen. The lungs are grossly clear.Heart size is normal.
--- NOTE | 2021-09-03 11:26 | P.PN ---
Subjective Date of Service: 09/03/21 Chief Complaint: Respiratory distress Patient remains sedated and on mechanical ventilation FiO2 weaned to 35%. Physical Examination - Vital Signs Temperature: 98.4 F Blood Pressure: 107/68 Pulse: 102 Respirations: 23 Pulse Ox (%): 95 - Physical Exam General: In no apparent distress, Other (Sedated) HEENT: Other (ET tube) Neck: JVD not distended Respiratory: Normal air movement, Other (Bilateral upper airway transmitted sounds.) Cardiovascular: No edema, Normal S1 S2 Gastrointestinal: Soft and benign, Non-distended Musculoskeletal: No swelling Integumentary: No rashes Neurological: Other (No focal motor deficit) - Studies Microbiology Data (last 24 hrs): 09/01/21 11:00 Blood - Blood Blood Culture Gram Stain - Final 09/01/21 11:00 Blood - Blood Gram Stain - Final Assessment And Plan - Current Problems (Diagnosis) (1) Acute respiratory failure with hypoxia Current Visit: Yes Status: Acute (2) COPD exacerbation Current Visit: Yes Status: Acute (3) Pneumonia Current Visit: Yes Status: Acute Qualifiers: Pneumonia type: due to unspecified organism - Plan Continue antibiotics. Weaning trials for possible extubation today. Continue scheduled bronchodilators. Continue IV Solu-Medrol IV fluid maintenance. NG tube in place. Michelle catheter for strict intake and output monitoring. Tracheal aspirate for Gram stain and culture is pending. Chest physiotherapy. 1 blood culture bottle growing gram-positive cocci. Continue current antibiotics and follow final blood culture result.
[2021-09-03] MEDS ORDERED: HALOPERIDOL LACT 5 MG/ML INJ IV PRN (16:16)
[2021-09-03] MEDS: MIDAZOLAM HCL 2 MG/2 ML INJ IV PRN ×3 (16:23→21:59)
--- NOTE | 2021-09-03 17:03 | EKG ---
Test Date: 2021-09-01 Test Time: 10:05:17 Silk Presser: LML MEASUREMENT RESULTS: Intervals: Rate: 130 NM: 168 QRSD: 88 QT: 292 QTc: 429 Deputy: P: 80 NM: 168 QRS: 75 T: 84 INTERPRETIVE STATEMENTS: Sinus tachycardia Right atrial enlargement ST & T wave abnormality, consider lateral ischemia Abnormal ECG Compared to ECG 09/01/2021 09:54:33 Atrial abnormality now present Supraventricular tachycardia no longer present Ventricular premature complex(es) no longer present ST (T wave) deviation still present Possible ischemia still present Electronically Signed On 09-03-21 17:00:18 MANAGER LEASING by Narayan Hinojosa
[2021-09-04] MEDS: METHYLPREDNISOLONE 40 MG INJ IV SCH ×3 (00:50→20:07)
[2021-09-04] MEDS: MIDAZOLAM HCL 2 MG/2 ML INJ IV PRN ×3 (00:50→06:09)
[2021-09-04] MEDS: LORazepam 2 MG/ML VIAL IV PRN ×3 (00:50→06:09)
[2021-09-04] MEDS: ALBUTEROL 2.5 MG/3 ML NEB SOL NEB SCH ×4 (01:35→19:25)
[2021-09-04] MEDS: IPRATROPIUM BROM 0.5MG/2.5ML NEB SCH ×4 (01:35→19:25)
[2021-09-04] MEDS: FENTANYL CITR 100 MCG/2 ML IV PRN ×3 (02:52→22:01)
[2021-09-04] MEDS: NA CHLORIDE 0.9% 1,000 ML IV SCH ×3 (02:53→16:25)
[2021-09-04 05:19] LABS: Absolute Lymphocytes (CBC) 0.4 K/uL (0.7-4.9); Basophils % 0.2 % (0-1.3); Hematocrit 31.9 % (36.0-45.0); MPV 7.6 fL (7.6-11.3); RBC Red Blood Cell Count 3.71 M/uL (3.86-4.86)
[2021-09-04 05:49] LABS: ALT/SGPT 11 U/L (12-78); AST/SGOT 8 U/L (15-37); Albumin 2.2 g/dL (3.4-5.0); Alkaline Phosphatase 65 U/L (45-117); BUN Blood Urea Nitrogen 11 mg/dL (7-18); Bicarbonate 22 mmol/L (21-32); Bilirubin Total 0.2 mg/dL (0.2-1.0); Glucose Level 108 mg/dL (74-106); Magnesium 2.3 mg/dL (1.8-2.4); Phosphorus 2.9 mg/dL (2.5-4.9); Potassium 4.2 mmol/L (3.5-5.1); Protein, Total 6.4 g/dL (6.4-8.2); Sodium Level 136 mmol/L (136-145)
[2021-09-04] MEDS: INSULIN -REGULAR HUMAN 50 UNIT/0.5 ML ML SQ SCH ×4 (07:30→20:04)
[2021-09-04] MEDS ORDERED: VANCOMYCIN 2 GM in NA CHLORIDE 0.9% 500 ML IVPB ONE (08:00)
--- NOTE | 2021-09-04 08:25 | RAD REPORT ---
EXAM DESCRIPTION: Steph Single View09/04/2021 7:04 am CLINICAL HISTORY: Shortness of breath COMPARISON: September 01, 2021 FINDINGS: Endotracheal tube lies 1 centimeter below the top of the aortic arch in good position. Nasogastric tube within the stomach 4 centimeters from the GE junction Lungs appear clear of acute infiltrate
[2021-09-04] MEDS: CEFTRIAXONE 1,000 MG in NA CHLORIDE 0.9% 50 ML IVPB SCH (08:46)
[2021-09-04] MEDS: ENOXAPARIN 40 MG/0.4 ML SQ SCH (08:46)
[2021-09-04] MEDS: FAMOTIDINE 20 MG/2 ML VIAL IV SCH ×2 (08:46→20:03)
[2021-09-04] MEDS: AZITHROMYCIN IV 500 MG in NA CHLORIDE 0.9% 250 ML IVPB SCH (08:47)
--- NOTE | 2021-09-04 11:37 | P.PN ---
Subjective Date of Service: 09/04/21 Chief Complaint: Respiratory distress Patient remains sedated and on mechanical ventilation Nursing staff report patient has copious tracheal secretions and persistently coughing. She has not been able to wean off the vent.. Blood cultures growing MRSA. No recorded fever. Physical Examination - Vital Signs Temperature: 97.7 F Blood Pressure: 114/73 Pulse: 92 Respirations: 14 Pulse Ox (%): 94 - Physical Exam General: In no apparent distress, Other (Sedated, easily arousable.) HEENT: Other (ETT) Neck: JVD not distended Respiratory: Diminished, Other (Bilateral upper airway transmitted sounds.) Cardiovascular: No edema, Regular rate/rhythm, Normal S1 S2 Gastrointestinal: Soft and benign, Non-distended, No tenderness Musculoskeletal: Other (Right upper extremity contracture) Integumentary: No erythema Neurological: Other (Right hemiparesis-old) - Studies Microbiology Data (last 24 hrs): 09/01/21 11:00 Blood - Blood Blood Culture Gram Stain - Final 09/01/21 11:00 Blood - Blood Gram Stain - Final Assessment And Plan - Current Problems (Diagnosis) (1) Acute respiratory failure with hypoxia Current Visit: Yes Status: Acute (2) COPD exacerbation Current Visit: Yes Status: Acute (3) Pneumonia Current Visit: Yes Status: Acute Qualifiers: Pneumonia type: due to unspecified organism (4) MRSA bacteremia Current Visit: Yes Status: Acute - Plan Continue antibiotics. Added Vanco for MRSA bacteremia coverage. Repeat blood cultures. Weaning trials for possible extubation today. Continue scheduled bronchodilators. Continue IV Solu-Medrol Continue IV fluid maintenance. NG tube in place. Michelle catheter for strict intake and output monitoring. Tracheal aspirate for Gram stain and culture is pending. Chest physiotherapy.
--- NOTE | 2021-09-04 11:47 | P.PN ---
Subjective Date of Service: 09/03/21 (TV) Chief Complaint: Resp failure an d penumonia Unable to waean. MRSA in sputum Review of Systems is unable to be obtained Physical Examination - Vital Signs Temperature: 97.7 F Blood Pressure: 114/73 Pulse: 92 Respirations: 14 Pulse Ox (%): 94 - Physical Exam General: Unresponsive - Studies Microbiology Data (last 24 hrs): 09/01/21 11:00 Blood - Blood Blood Culture Gram Stain - Final 09/01/21 11:00 Blood - Blood Gram Stain - Final Assessment & Plan - Problems (Diagnosis) (1) Acute respiratory failure with hypoxia Current Visit: Yes Status: Acute Plan: Unable to wean pt off vent for now/ Thick secertions Tired daily Tube feeds today (2) Pneumonia Current Visit: Yes Status: Acute Plan: MRSA ioslated in sputum/ Mild anemia WBC is declining/ LAbs reviewed/ BC pos for MRSA on Vanc, DC Zithromax Qualifiers: Pneumonia type: due to other aerobic Gram-negative bacteria Laterality: right
[2021-09-04] MEDS ORDERED: VITAL HP 1,000 ML BOT FT SCH (12:00)
[2021-09-04 16:20] LABS: Arterial Blood Carboxyhemoglob 0.3 % (0-1.5); Blood Gas Oxyhemoglobin 90.5 % (94-97); Blood O2 Saturation 92.6 % (92-98.5)
[2021-09-04] MEDS ORDERED: LORazepam 2 MG/ML VIAL IV ONE (17:30)
[2021-09-04] MEDS: VANCOMYCIN 1.5 GM in NA CHLORIDE 0.9% 500 ML IVPB SCH (20:03)
[2021-09-05] MEDS: ALBUTEROL 2.5 MG/3 ML NEB SOL NEB SCH ×4 (00:40→19:50)
[2021-09-05] MEDS: IPRATROPIUM BROM 0.5MG/2.5ML NEB SCH ×4 (00:40→19:50)
[2021-09-05] MEDS: NA CHLORIDE 0.9% 1,000 ML IV SCH ×2 (04:49→10:07)
[2021-09-05 05:05] LABS: Absolute Lymphocytes (CBC) 0.5 K/uL (0.7-4.9); Basophils % 0.1 % (0-1.3); Hematocrit 29.6 % (36.0-45.0); Lymphocytes % 7.1 % (15.3-44.8); MPV 7.3 fL (7.6-11.3); RBC Red Blood Cell Count 3.47 M/uL (3.86-4.86)
[2021-09-05 05:23] LABS: ALT/SGPT 12 U/L (12-78); AST/SGOT 11 U/L (15-37); Albumin 2.3 g/dL (3.4-5.0); Alkaline Phosphatase 61 U/L (45-117); BUN Blood Urea Nitrogen 10 mg/dL (7-18); Bicarbonate 26 mmol/L (21-32); Bilirubin Total 0.2 mg/dL (0.2-1.0); Glucose Level 110 mg/dL (74-106); Magnesium 2.1 mg/dL (1.8-2.4); Phosphorus 2.7 mg/dL (2.5-4.9); Potassium 3.4 mmol/L (3.5-5.1); Protein, Total 6.2 g/dL (6.4-8.2); Sodium Level 136 mmol/L (136-145)
[2021-09-05 05:35] LABS: Blood Morphology Comment NOT SEEN (NOT SEEN); Platelet Estimate INCR
[2021-09-05] MEDS: FENTANYL CITR 100 MCG/2 ML IV PRN (05:50)
[2021-09-05] MEDS: INSULIN -REGULAR HUMAN 50 UNIT/0.5 ML ML SQ SCH ×4 (07:30→20:34)
[2021-09-05] MEDS: CEFTRIAXONE 1,000 MG in NA CHLORIDE 0.9% 50 ML IVPB SCH (08:00)
[2021-09-05] MEDS: METHYLPREDNISOLONE 40 MG INJ IV SCH ×2 (08:02→20:34)
[2021-09-05] MEDS: FAMOTIDINE 20 MG/2 ML VIAL IV SCH ×2 (08:02→20:34)
[2021-09-05] MEDS: ENOXAPARIN 40 MG/0.4 ML SQ SCH (08:02)
[2021-09-05] MEDS: VANCOMYCIN 1.5 GM in NA CHLORIDE 0.9% 500 ML IVPB SCH ×2 (08:59→21:29)
[2021-09-05] MEDS ORDERED: POTASSIUM CL SA 10 MEQ TAB PO ONE ×2 (09:00→21:00)
--- NOTE | 2021-09-05 11:11 | P.PN ---
Subjective Date of Service: 09/05/21 Chief Complaint: Resp failure an d penumonia Patient successfully extubated to oxygen by nasal cannula yesterday. She is stable on the nasal cannula and requested to go home. Physical Examination - Vital Signs Temperature: 97.2 F Blood Pressure: 113/84 Pulse: 115 Respirations: 26 Pulse Ox (%): 95 - Physical Exam General: Alert, Oriented x2, Other (Awake) HEENT: Mucous membr. moist/pink Neck: JVD not distended Respiratory: Diminished, Other (Mild bibasilar crackles) Cardiovascular: No edema, Regular rate/rhythm, Normal S1 S2, No murmurs Gastrointestinal: Normal bowel sounds, Soft and benign, Non-distended, No tenderness Musculoskeletal: No swelling Neurological: Other (Right-sided hemiparesis) - Studies Microbiology Data (last 24 hrs): 09/01/21 11:00 Blood - Blood Aerobic Blood Culture - Final Staph Epidermidis Meth Resistant Staph Aureus 09/01/21 11:00 Blood - Blood Blood Culture Gram Stain - Final 09/01/21 11:00 Blood - Blood Anaerobic Blood Culture - Final Meth Resistant Staph Aureus 09/01/21 11:00 Blood - Blood Gram Stain - Final Assessment And Plan - Current Problems (Diagnosis) (1) Acute respiratory failure with hypoxia Current Visit: Yes Status: Acute (2) COPD exacerbation Current Visit: Yes Status: Acute (3) Pneumonia Current Visit: Yes Status: Acute Qualifiers: Pneumonia type: due to other aerobic Gram-negative bacteria Laterality: right (4) MRSA bacteremia Current Visit: Yes Status: Acute - Plan Continue current antibiotics Repeat blood cultures results pending. Continue oxygen by nasal cannula and wean off as tolerated. Continue scheduled bronchodilators. Weaning down IV Solu-Medrol Continue IV fluid maintenance. NG tube in place. Speech therapy to evaluate swallow. Michelle catheter for strict intake and output monitoring. Tracheal aspirate culture: Normal respiratory hilton. Transfer to the medical floor. Chest physiotherapy.
[2021-09-05] MEDS: ENSURE ENLIVE 237 ML CAN PO SCH (20:35)
[2021-09-06] MEDS: ALBUTEROL 2.5 MG/3 ML NEB SOL NEB SCH ×3 (01:20→13:34)
[2021-09-06] MEDS: IPRATROPIUM BROM 0.5MG/2.5ML NEB SCH ×3 (01:20→13:34)
--- NOTE | 2021-09-06 06:03 | P.PN ---
Date of Service: 09/06/21 Subjective: no new complaints. continues with slight cough, on 2L NC Denies use of nasal cannula at home Remains afebrile Blood cultures pending feeling better each day ROS: 10 point ROS as noted above, otherwise negative Physical exam GEN: Alert, oriented, NAD HEENT: Normal conjunctiva, sclera anicteric CV: Regular rate and rhythm, no edema Pulm: mildly labored respirations on 2 LNC, mild rhonchi on R lung base ABD: Soft, nontender, nondistended Integumentary: No rashes Neuro: difficult to understand at times, mumbles, R hand contracture Problem List Acute hypoxemic respiratory failure secondary to acute on chronic COPD exacerbation Community-acquired pneumonia, bacterial MRSA bacteremia Continue current antibiotics ID consulted for MRSA bacteremia Repeat blood culture: GPC growing in repeat wean O2 as tolerated Continue bronchodilators. Wean IV Solu-Medrol Speech therapy to evaluate swallow. Tracheal aspirate culture: Normal respiratory hilton. Dispo: anticipate dc in ~2 days, will scan when Time Spent Managing Pts Care (In Minutes): 35
[2021-09-06 06:13] LABS: Absolute Lymphocytes (CBC) 0.7 K/uL (0.7-4.9); Basophils % 0.4 % (0-1.3); Hematocrit 31.2 % (36.0-45.0); Lymphocytes % 8.8 % (15.3-44.8); MPV 7.5 fL (7.6-11.3); RBC Red Blood Cell Count 3.65 M/uL (3.86-4.86)
[2021-09-06 06:25] LABS: BUN Blood Urea Nitrogen 10 mg/dL (7-18); Bicarbonate 28 mmol/L (21-32); Glucose Level 112 mg/dL (74-106); Magnesium 2.1 mg/dL (1.8-2.4); Phosphorus 2.9 mg/dL (2.5-4.9); Potassium 3.6 mmol/L (3.5-5.1); Sodium Level 136 mmol/L (136-145)
[2021-09-06] MEDS: INSULIN -REGULAR HUMAN 50 UNIT/0.5 ML ML SQ SCH ×4 (07:30→20:38)
[2021-09-06] MEDS: VANCOMYCIN 1.5 GM in NA CHLORIDE 0.9% 500 ML IVPB SCH (08:00)
[2021-09-06] MEDS ORDERED: POTASSIUM CL SA 10 MEQ TAB PO ONE (09:00)
[2021-09-06] MEDS: ENSURE ENLIVE 237 ML CAN PO SCH ×2 (09:00→20:38)
[2021-09-06] MEDS: VANCOMYCIN 1.25 GM in NA CHLORIDE 0.9% 250 ML IVPB SCH ×2 (09:00→20:32)
[2021-09-06] MEDS: ENOXAPARIN 40 MG/0.4 ML SQ SCH (10:14)
[2021-09-06] MEDS: FAMOTIDINE 20 MG/2 ML VIAL IV SCH (10:14)
[2021-09-06] MEDS: CEFTRIAXONE 1,000 MG in NA CHLORIDE 0.9% 50 ML IVPB SCH (10:15)
[2021-09-06] MEDS: METHYLPREDNISOLONE 40 MG INJ IV SCH ×2 (10:17→20:34)
--- NOTE | 2021-09-06 11:25 | P.CNS ---
Date of Consult: 09/06/21 Chief Complaint: Resp failure an d penumonia History of Present Illness: Patient is a 66-year-old female with a past medical history of COPD who is brought into the emergency department secondary to acute respiratory distress. Per chart review patient was found to have O2 stats in the low 70s. Patient was unable to protect her airway, as such she was intubated. Patient was extubated on 09/04. Blood cultures obtained on 09/01 growing Staph epi and MRSA. Repeat cultures on 09/04 growing coagulase-negative Staphylococcus. Additional repeat cultures obtained on 09/06 are currently pending. Patient empirically placed on vancomycin and Rocephin. Sputum culture shows normal respiratory hilton. CT chest showed right lower lobe no me pneumonia. The Infectious disease, been consulted to monitor patient's antibiotic regimen. Patient currently denies nausea/vomiting/diarrhea/shortness breast/chest pain. Aerating well on 1 L of oxygen via nasal cannula. Allergies No Known Allergies Allergy (Unverified 09/01/21 14:40) - Past Medical/Surgical History -: COPD -: stroke -: Unable to obtain - Social History Smoking Status: Unknown if ever smoked Place of Residence: Home Review of Systems 10-point ROS is otherwise unremarkable Physical Examination Temp Pulse Resp BP Pulse Ox 98.1 F 115 H 24 H 126/86 94 09/06/21 08:00 09/06/21 08:00 09/06/21 08:00 09/06/21 08:00 09/06/21 08:00 General: Alert, In no apparent distress HEENT: Atraumatic, Other (Poor dentition, multiple dental caries ) Respiratory: Other (Bilateral crackles/rales) Cardiovascular: No edema, Regular rate/rhythm, Normal S1 S2 Gastrointestinal: Normal bowel sounds, Soft and benign Musculoskeletal: Contractures (Right arm/wrist/hand) Integumentary: No rashes, No breakdown, No significant lesion, No tenderness/swelling, No erythema, No warmth Urinary: Michelle catheter Conclusions/Impression: Antibiotics: Vancomycin Start: 09/04 Indication: MRSA bacteremia/pneumonia Rocephin start: 09/02 Indication: Pneumonia Lines Left peripheral line Michelle catheter Assessment/plan Bacteremia Blood cultures obtained on 09/01 growing Staph epi and MRSA. Repeat cultures obtained on 09/04 growing cons. Additional cultures obtained on 12/21 pending. Patient empirically placed on vancomycin and Rocephin. Recommend discontinuing Rocephin. If repeat cultures still positive need to transition to stronger antibiotic such as daptomycin or zyvox. Possible sources of infection include: Right lower lobe pneumonia, endocarditis, or multiple dental caries. Recommend patient be transferred for transesophageal echocardiogram. Vancomycin trough goal of 15-20. Vancomycin trough obtained on 09/05 19.4. Community-acquired pneumonia CT chest showed right lower lobe [place] on 09/01. Repeat chest x-ray on 09/04 showed clearing of the pneumonia. Sputum culture growing normal respiratory hilton. Patient extubated on 09/04, protecting airway currently aerating well on 1 L of oxygen via nasal cannula. -medical management per primary team. -plan of care discussed with Dr. Ghosh Thank you for consultation
--- NOTE | 2021-09-06 14:08 | ECHO ---
HEIGHT: 5 ft 2 in WEIGHT: 180 lb 0 oz DATE OF STUDY: 09/06/[address]: Gustavo Capone MD 2-DIMENSIONAL: YES M.MODE: YES DOPPLER: YES COLOR FLOW: YES TDS: YES PORTABLE: DEFINITY: BUBBLE STUDY: DIAGNOSIS: METHICILLIN-RESISTANT STAPHYLOCOCCUS AUREUS BACTERIA, RULE OUT VEGETATION, ENDOCARDITIS CARDIAC HISTORY: CATHERIZATION: NO SURGERY: NO PROSTHETIC VALVE: NO PACEMAKER: NO MEASUREMENTS (cm) DIASTOLIC (NORMALS) SYSTOLIC (NORMALS) IVSd 1.0 (0.6-1.2) LA Diam 2.1 (1.9-4.0) LVEF 55% LVIDd 3.2 (3.5-5.7) LVIDs 2.3 (2.0-3.5) %FS 28% LVPWd 1.1 (0.6-1.2) Ao Diam 2.7 (2.0-3.7) 2 DIMENSIONAL ASSESSMENT: RIGHT ATRIUM: NORMAL LEFT ATRIUM: NORMAL RIGHT VENTRICLE: NORMAL LEFT VENTRICLE: NORMAL TRICUSPID VALVE: NORMAL MITRAL VALVE: NORMAL PULMONIC VALVE: NORMAL AORTIC VALVE: MILD AORTIC INSUFFIENCY PERICARDIAL EFFUSION: NONE AORTIC ROOT: NORMAL LEFT VENTRICULAR WALL MOTION: NORMAL DOPPLER/COLOR FLOW: SEE BELOW COMMENTS: NORMAL LEFT VENTRICULAR EJECTION FRACTION 55-60%. MILD AORTIC INSUFFIENCY. NO CLEAR VEGETATION IS SEEN ON THIS ECHOCARDIOGRAM BUT WINDOWS ARE LIMITED, RECOMMENT TRANSESOPHEGEAL ECHOCARDIOGRAM. TECHNOLOGIST: ELSY BREEN
[2021-09-06] MEDS ORDERED: IPRATROPIUM BROM 0.5MG/2.5ML NEB PRN (17:31)
[2021-09-06] MEDS ORDERED: ALBUTEROL 2.5 MG/3 ML NEB SOL NEB PRN (17:31)
--- NOTE | 2021-09-06 18:07 | RAD REPORT ---
EXAM DESCRIPTION: RAD - Chest Single View - 09/06/2021 5:54 pm CLINICAL HISTORY: confirm picc line placement COMPARISON: Chest Single View dated 09/04/2021; Chest Single View dated 09/03/2021; Chest Single Vie w dated 09/02/2021; Chest Single View dated 09/01/2021; Chest For Pe Angio dated 09/01/2021 FINDINGS: Lines: Left subclavian approach PICC with tip overlying the SVC. Lungs: Increased airspace disease is present at the right lung base . Pleural: No significant pleural effusions or pneumothorax. Cardiac: Similar size and configuration Bones: No acute fractures. Other: IMPRESSION: PICC in satisfactory position with tip overlying the SVC Increased opacification of the right lung base could reflect worsened pneumonia.
[2021-09-06] MEDS: FAMOTIDINE 20 MG TAB PO SCH (20:36)
[2021-09-07 04:12] LABS: Hematocrit 32.1 % (36.0-45.0); MPV 7.2 fL (7.6-11.3)
[2021-09-07 04:28] LABS: BUN Blood Urea Nitrogen 10 mg/dL (7-18); Bicarbonate 30 mmol/L (21-32); Glucose Level 125 mg/dL (74-106); Potassium 3.9 mmol/L (3.5-5.1); Sodium Level 135 mmol/L (136-145)
[2021-09-07] MEDS ORDERED: POTASSIUM CL SA 10 MEQ TAB PO ONE (06:00)
--- NOTE | 2021-09-07 06:07 | P.PN ---
Date of Service: 09/07/21 Subjective: No acute events overnight, patient still requiring oxygen supplementation Overall feeling better. States she has some memory issues since she had a stroke ROS: 10 point ROS as noted above, otherwise negative Physical exam GEN: Alert, oriented, but with some memory difficulty, NAD HEENT: Normal conjunctiva, sclera anicteric CV: Regular rate and rhythm, no edema Pulm: non-labored respirations on 2 LNC, mild rhonchi on R lung base ABD: Soft, nontender, nondistended Integumentary: No rashes Neuro: difficult to understand at times, mumbles, R hand contracture Problem List Acute hypoxemic respiratory failure secondary to acute on chronic COPD exacerbation Community-acquired pneumonia, bacterial MRSA bacteremia Continue IV antibiotics -Rocephin and vancomycin, for coverage of pneumonia and MRSA bacteremia ID consulted for MRSA bacteremia, CONS bacteremia Repeat blood culture: GPC growing in repeat culture TTE: No definitive vegetation, however at poor windows Discussed with ID, recommend a SANDRA -since she has had repeat blood cultures, and dental caries Patient will need to be transferred to have this done, unable to be performed here wean O2 as tolerated Continue bronchodilators Wean IV Solu-Medrol Speech therapy to evaluate swallow. Tracheal aspirate culture: Normal respiratory hilton. Dispo: anticipate dc in ~2 days Have been unable to contact family, phone numbers are either incorrect or nobody answering Patient unable to provide any numbers Initiate transfer for SANDRA Time Spent Managing Pts Care (In Minutes): 35
[2021-09-07] MEDS: INSULIN -REGULAR HUMAN 50 UNIT/0.5 ML ML SQ SCH ×3 (07:30→16:30)
--- NOTE | 2021-09-07 08:36 | RAD REPORT ---
EXAM DESCRIPTION: RAD - Chest Single View - 09/07/2021 6:03 am CLINICAL HISTORY: f/u pneumonia, hypoxia Chest pain. COMPARISON: Chest Single View dated 09/06/2021; Chest Single View dated 09/04/2021; Chest Single Vie w dated 09/03/2021; Chest Single View dated 09/02/2021 FINDINGS: Portable technique limits examination quality. Interstitial prominence is again seen bilaterally without significant change since yesterday's study. The heart is normal in size. Left-sided PICC line has tip in the SVC. IMPRESSION: Stable chest since yesterday's examination.
[2021-09-07] MEDS: ENSURE ENLIVE 237 ML CAN PO SCH (09:00)
[2021-09-07] MEDS: VANCOMYCIN 1.25 GM in NA CHLORIDE 0.9% 250 ML IVPB SCH (09:05)
[2021-09-07] MEDS: FAMOTIDINE 20 MG TAB PO SCH (09:06)
[2021-09-07] MEDS: METHYLPREDNISOLONE 40 MG INJ IV SCH (09:06)
[2021-09-07] MEDS: CEFTRIAXONE 1,000 MG in NA CHLORIDE 0.9% 50 ML IVPB SCH (09:07)
[2021-09-07] MEDS: ENOXAPARIN 40 MG/0.4 ML SQ SCH (09:08)
--- NOTE | 2021-09-07 10:50 | P.PN ---
Subjective Date of Service: 09/07/21 Chief Complaint: Resp failure an d penumonia Patient seen examined at bedside, no acute complaints. Review of Systems 10-point ROS is otherwise unremarkable Physical Examination - Vital Signs Temperature: 97.3 F Blood Pressure: 121/69 Pulse: 84 Respirations: 16 Pulse Ox (%): 91 - Studies Laboratory Last Values WBC 11.60 K/uL (4.3-10.9) H 09/01/21 09:43 RBC 4.04 M/uL (3.86-4.86) 09/01/21 09:43 Hgb 11.5 g/dL (12.0-15.0) L 09/01/21 09:43 Hct 35.0 % (36.0-45.0) L 09/01/21 09:43 MCV 86.5 fL (80-100) 09/01/21 09:43 MCH 28.4 pg (27.0-35.0) 09/01/21 09:43 MCHC 32.9 g/dL (32.0-36.0) 09/01/21 09:43 RDW 14.4 % (12.1-15.2) 09/01/21 09:43 Plt Count 726 K/uL (152-406) H 09/01/21 09:43 MPV 7.1 fL (7.6-11.3) L 09/01/21 09:43 Neutrophils % 71.9 % (41.7-73.7) 09/01/21 09:43 Lymphocytes % 16.1 % (15.3-44.8) 09/01/21 09:43 Monocytes % 8.4 % (3.3-12.3) 09/01/21 09:43 Eosinophils % 2.7 % (0-4.4) 09/01/21 09:43 Basophils % 0.9 % (0-1.3) 09/01/21 09:43 Absolute Neutrophils 8.4 K/uL (1.8-8.0) H 09/01/21 09:43 Absolute Lymphocytes 1.9 K/uL (0.7-4.9) 09/01/21 09:43 Absolute Monocytes 1.0 K/uL (0.1-1.3) 09/01/21 09:43 Absolute Eosinophils 0.3 K/uL (0-0.5) 09/01/21 09:43 Absolute Basophils 0.1 K/uL (0-0.5) 09/01/21 09:43 Platelet Estimate Incr 09/01/21 09:43 Clumped Platelets Few 09/01/21 09:43 Giant Platelets Few 09/01/21 09:43 Morphology Comment Not seen (NOT SEEN) 09/01/21 09:43 PT 11.7 SECONDS (9.5-12.5) 09/01/21 09:43 INR 1.02 09/01/21 09:43 D-Dimer 2124 FEUng/mL (<500) H* 09/01/21 09:43 pH 7.34 (7.35-7.45) L 09/01/21 13:25 pCO2 44.1 mmHG (35-45) 09/01/21 13:25 pO2 77.2 mmHG (75-100) 09/01/21 13:25 HCO3 23.3 mmol/L (22-28) 09/01/21 13:25 Base Excess -1.6 mmol/L 09/01/21 13:25 Oxyhemoglobin 90.1 % (94-97) L 09/01/21 13:25 ABG O2 Sat (Measured) 92.2 % (92-98.5) 09/01/21 13:25 ABG Carboxyhemoglobin 0.4 % (0-1.5) 09/01/21 13:25 ABG Methemoglobin 1.9 % (0-1.5) H 09/01/21 13:25 Other Total Hgb 10.3 g/dl (12-18) L 09/01/21 13:25 Inspired O2 40.0 % 09/01/21 13:25 Sodium 134 mmol/L (136-145) L 09/01/21 09:43 Potassium 4.1 mmol/L (3.5-5.1) 09/01/21 09:43 Chloride 99 mmol/L (98-107) 09/01/21 09:43 Carbon Dioxide 30 mmol/L (21-32) 09/01/21 09:43 BUN 10 mg/dL (7-18) 09/01/21 09:43 Creatinine 0.94 mg/dL (0.55-1.3) 09/01/21 09:43 Estimated GFR 60 mL/min (=/>90) L 09/01/21 09:43 Glucose 196 mg/dL (74-106) H 09/01/21 09:43 Lactic Acid 1.2 mmol/L (0.4-2.0) 09/01/21 10:05 Calcium 8.8 mg/dL (8.5-10.1) 09/01/21 09:43 Magnesium 2.4 mg/dL (1.8-2.4) D 09/01/21 09:43 Total Bilirubin 0.3 mg/dL (0.2-1.0) 09/01/21 09:43 Direct Bilirubin < 0.1 mg/dL (0-0.2) 09/01/21 09:43 AST 9 U/L (15-37) L 09/01/21 09:43 ALT 14 U/L (12-78) 09/01/21 09:43 Alkaline Phosphatase 97 U/L (45-117) 09/01/21 09:43 Rapid Troponin I < 0.02 ng/mL (0.0-0.045) 09/01/21 09:43 NT-Pro-B Natriuret Pep 700 pg/mL (<125) H 09/01/21 09:43 Serum Total Protein 7.7 g/dL (6.4-8.2) 09/01/21 09:43 Albumin 2.9 g/dL (3.4-5.0) L 09/01/21 09:43 Globulin 4.8 g/dL (2.3-3.5) H 09/01/21 09:43 Albumin/Globulin Ratio 0.6 (1.1-1.8) L 09/01/21 09:43 Procalcitonin 0.09 ng/mL (<0.050) H 09/01/21 10:05 Urine pH 7.0 (5.0-7.0) 09/01/21 11:18 Ur Specific [place] 1.015 (1.005-1.030) 09/01/21 11:18 Glucose (UA)(Auto) Negative (Negative) 09/01/21 11:18 Urine Ketones Negative (Negative) 09/01/21 11:18 Urine Blood Negative (Negative) 09/01/21 11:18 Urine Nitrite Negative (Negative) 09/01/21 11:18 Ur Leukocyte Esterase Negative (Negative) 09/01/21 11:18 Urine Total Protein Negative (Negative) 09/01/21 11:18 SARS-CoV-2 Rap RNA(RT-PCR) Negative (NEGATIVE) 09/01/21 09:45 Smear Scan Ok (OK) 09/01/21 09:43 Microbiology Data (last 24 hrs): 09/01/21 10:05 Blood - Blood Aerobic Blood Culture - Final No growth in 5 days. 09/01/21 10:05 Blood - Blood Anaerobic Blood Culture - Final No growth in 5 days. Assessment And Plan - Plan Physical exam: General: Alert, In no apparent distress HEENT: Atraumatic, Other (Poor dentition, multiple dental caries ) Respiratory: Other (Bilateral crackles/rales) Cardiovascular: No edema, Regular rate/rhythm, Normal S1 S2 Gastrointestinal: Normal bowel sounds, Soft and benign Musculoskeletal: Contractures (Right arm/wrist/hand) Integumentary: No rashes, No breakdown, No significant lesion, No tenderness/swelling, No erythema, No warmth Urinary: Michelle catheter Conclusions/Impression: Antibiotics: Vancomycin Start: 09/04 Indication: MRSA bacteremia/pneumonia Rocephin start: 09/02 Indication: Pneumonia Lines Left peripheral line Michelle catheter Assessment/plan Bacteremia Blood cultures obtained on 09/01 growing Staph epi and MRSA. Repeat cultures obtained on 09/04 growing cons. Additional cultures obtained on 09/06 NG@24hr. Patient empirically placed on vancomycin and Rocephin. Recommend discontinuing Rocephin. If repeat cultures still positive need to transition to stronger antibiotic such as daptomycin or zyvox. Possible sources of infection include: Right lower lobe pneumonia, endocarditis, or multiple dental caries. Recommend patient be transferred for transesophageal echocardiogram. Vancomycin trough goal of 15-20. Vancomycin trough obtained on 09/05 19.4. Repeat trough on 09/07 pending. Community-acquired pneumonia CT chest showed right lower lobe opacity on 09/01. Repeat chest x-ray on 09/04 showed clearing of the pneumonia. Sputum culture growing normal respiratory hilton. Patient extubated on 09/04, protecting airway currently aerating well on 1 L of oxygen via nasal cannula. -medical management per primary team. -plan of care discussed with Dr. Ghosh Thank you for consultation
--- NOTE | 2021-09-07 16:45 | P.DS ---
Admission Date: 09/01/21 Discharge Date: 09/07/21 Disposition: TRANSFER TO [facility] Discharge Condition: GOOD Reason for Admission: Resp failure and penumonia Consultations: ID - Dr. Ghosh Pulmonology - Dr. Gerardo Procedures: CXR (09/01): FINDINGS: Endotracheal tube has its tip at the level of the aortic arch. Moderate right basilar lung opacities. Left lung appears clear of acute infiltrate. Heart is normal size IMPRESSION: Moderate right basilar opacities probably pneumonia CTA Chest (09/01): IMPRESSION: Negative for a pulmonary embolism. Moderate right lower lobe opacities probably pneumonia. This should be followed until it has cleared to help exclude post obstructive process/underlying mass CXR (09/02) : Tip of the endotracheal tube is at the level of the superior aortic arch, normal placement. Enteric tube tip is in the stomach. Right lower lobe of the lung infiltrate appears slightly worse compared to prior study. The heart is normal in size.Cervical hardware plate noted. CXR (09/03): Tip of the endotracheal tube is at the level superior aortic arch, appropriately located. Enteric tube descends into the abdomen. The lungs are grossly clear.Heart size is normal. CXR (09/04): FINDINGS: Endotracheal tube lies 1 centimeter below the top of the aortic arch in good position. Nasogastric tube within the stomach 4 centimeters from the GE junction Lungs appear clear of acute infiltrate CXR (09/06): IMPRESSION: PICC in satisfactory position with tip overlying the SVC Increased opacification of the right lung base could reflect worsened pneumonia. CXR (09/07): Interstitial prominence is again seen bilaterally without significant change since yesterday's study. The heart is normal in size. Left-sided PICC line has tip in the SVC. IMPRESSION: Stable chest since yesterday's examination. TTE (09/06): Normal LVEF (55 to 60%). Mild aortic insufficiency. No clear vegetation is seen on this echocardiogram but windows are limited. Recommend transesophageal echocardiogram. 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 According to report she was found with oxygen saturation of 72%. EMS placed him on CPAP and brought him to the ED where she was intubated due to respiratory distress on the CPAP. Patient sedated and on mechanical ventilation is unable to provide any history. Patient with tachypnea and tachycardia secondary to respiratory distress. No sepsis. CTA thorax demonstrates right lower lobe pneumonia. Patient is admitted to the ICU for further management. Hospital Course: Pulmonology was consulted and assisted with management of her vent. Patient extubated on 09/04/21. Continued to wean down her oxygen supplementation. On 09/07 she was intermittently using 1-2L NC. Patient was treated with Rocephin and vancomycin. Initial blood cultures grew MRSA and 2/ bottles, and coag negative staph. Subsequent blood cultures on 11/04 and 11/05 grew coagulase-negative staph as well. Infectious disease was consulted given the ongoing bacteremia. A transthoracic echocardiogram was obtained, negative for any definitive vegetation, however was noted to have poor windows. A SANDRA was recommended to rule out vegetation/endocarditis. This was reviewed with infectious disease team, and patient was noted to have multiple dental caries and have a risk for endocarditis. Transfer was initiated and patient was accepted to [facility] in [place]. PICC line placed on 09/06 for prolonged IV antibiotics. Throughout her hospitalization, patient's family was unable to be contacted due to out of date phone numbers, and phone numbers of family members. Patient has had a history of stroke reported memory issues from illness, was unable to provide any phone numbers for us to call. On 09/07, her son was finally able to be contacted. Toribio Pardo, . Patient has been living with him for at least the last year. 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 History of right-sided partial paralysis, right upper extremity and right lower extremity contractures. He states she is mostly nonambulatory, but when she is doing well, she is able to assist in transfers and stands. she has had difficulty swallowing more recently. She was recently hospitalized at [facility] for COPD exacerbation and told that she had some "issue with her esophagus". Patient did not know any of her home medications, and this was unable to be obtained during her hospitalization as well. Her son states that he will bring a medication list to the hospital. He states she does seem a little bit more confused and her speech is not as clear as typical. There is possibility that she did have a new stroke or exacerbation of prior stroke symptoms due to this infection. Patient was evaluated by speech therapy prior and recommended to have mechanical soft/chopped diet. She did not have any overt signs of aspiration on bedside swallow evaluation. Given this history, this pneumonia is likely from aspiration. Vital Signs/Physical Exam: Physical exam GEN: Alert, orientedx2, but with some memory difficulty / confusion, NAD HEENT: Normal conjunctiva, sclera anicteric CV: Regular rate and rhythm, no edema Pulm: non-labored respirations on 2 LNC, mild rhonchi on R lung base ABD: Soft, nontender, nondistended Integumentary: No rashes Neuro: difficult to understand at times, mumbles, R hand contracture, RUE/RLE weakness Temp Pulse Resp BP Pulse Ox 97.6 F 97 H 16 119/87 97 09/07/21 16:00 09/07/21 16:00 09/07/21 16:00 09/07/21 16:00 09/07/21 16:00 Laboratory Data at Discharge: WBC 8.30 K/uL (4.3-10.9) 09/07/21 03:43 Hgb 10.7 g/dL (12.0-15.0) L 09/07/21 03:43 Hct 32.1 % (36.0-45.0) L 09/07/21 03:43 Plt Count 525 K/uL (152-406) H 09/07/21 03:43 PT 11.7 SECONDS (9.5-12.5) 09/01/21 09:43 INR 1.02 09/01/21 09:43 Sodium 135 mmol/L (136-145) L 09/07/21 03:43 Potassium 3.9 mmol/L (3.5-5.1) 09/07/21 03:43 BUN 10 mg/dL (7-18) 09/07/21 03:43 Creatinine 0.47 mg/dL (0.55-1.3) L 09/07/21 03:43 Glucose 125 mg/dL (74-106) H 09/07/21 03:43 Phosphorus 2.9 mg/dL (2.5-4.9) 09/06/21 05:01 Magnesium 2.1 mg/dL (1.8-2.4) 09/06/21 05:01 Total Bilirubin 0.2 mg/dL (0.2-1.0) 09/05/21 04:30 AST 11 U/L (15-37) L 09/05/21 04:30 ALT 12 U/L (12-78) 09/05/21 04:30 Alkaline Phosphatase 61 U/L (45-117) 09/05/21 04:30 Troponin I < 0.02 ng/mL (0.0-0.045) 09/01/21 20:48 Home Medications: Unobtainable 09/06/21 Followup: NONE,NONE [Primary Care Provider] - Time spent managing pt's care (in minutes): 60
[2021-09-07 20:34] VITALS: BP 143/69; TEMP 97.2
[2021-09-07 20:51] VITALS: O2SAT 97
== END 2021-09-07 20:55 | disposition short-term general hospital (02) | DRG 208 ==
LOC: ER 09:24 → ERHOLD 14:54 → 3RD-ICU 09-03 00:16 → 2ND 09-05 11:30
PROVIDERS: ADMIT Internal Medicine; ATTEND Hospitalist
PROC: 5A1945Z Respiratory Ventilation, 24-96 Consecutive Hours (ICD-10-PCS; principal; 2021-09-01)
PROC: 0BH17EZ Insertion of Endotracheal Airway into Trachea, Via Natural or Artificial Opening (ICD-10-PCS; 2021-09-01)
PROC: 02HV33Z Insertion of Infusion Device into Superior Vena Cava, Percutaneous Approach (ICD-10-PCS; 2021-09-06)
DX: J69.0 Pneumonitis due to inhalation of food and vomit (principal); J96.01 Acute respiratory failure with hypoxia; E44.0 Moderate protein-calorie malnutrition; J44.1 Chronic obstructive pulmonary disease with (acute) exacerbation; R78.81 Bacteremia; B95.62 Methicillin resistant Staphylococcus aureus infection as the cause of diseases classified elsewhere; Z68.32 Body mass index [BMI] 32.0-32.9, adult; Z86.73 Personal history of transient ischemic attack (TIA), and cerebral infarction without residual deficits; Z20.822 Contact with and (suspected) exposure to COVID-19
CPT/HCPCS: 31500; 36415; 36569; 51702; 71045; 71275; 80048; 80053; 80076; 80202; 81003; 82805; 82947; 83605; 83735; 83880; 84100; 84132; 84145; 84484; 85025; 85027; 85379; 85610; 87040; 87070; 87077; 87186; 87205; 93005; 93306; 94002; 94003; 94640; 94660; 97110; 97112; 97161; 97530; 99291; 99292; J0330; J0456; J1630; J1650; J2250; J2704; J2920; J2930; J3010; J3370; J7030; J7040; J7050; Q9967; U0003

== ENCOUNTER 2021-10-30 15:21 | Emergency (ER) | payer OTHER ==
--- OUTSIDE RECORDS SUMMARY | 2021-10-30 15:28 | XMS REPORT | Continuity of Care Document ---
:1955 Author Organization [facility] t Address [address] [place] [address] Care Team Providers Name Role Phone Festus MERCADO Primary Care Physician Unavailable Sincere HAJI Attending Clinician Unavailable ALAINA Attending Clinician Unavailable ALAINA Attending Clinician Unavailable Festus MERCADO Attending Clinician Unavailable Doctor Unassigned, Name Attending Clinician Unavailable ESTER Attending Clinician Unavailable Nida MONCADA P. Attending Clinician Deena MONCADA Attending Clinician Barbra MONCADA Attending Clinician Krish MONCADA Attending Clinician Ester MONCADA Attending Clinician Donnie CHAVEZ Attending Clinician Marisela FUENTES, T Attending Clinician Unavailable Rober CHAVEZ Attending Clinician ROBER Attending Clinician Unavailable Festus Mercado MD Attending Clinician Alaina KELLY Attending Clinician EDEMEKONG Attending Clinician Unavailable EVELYN Attending Clinician Unavailable Toney MCKEON Attending Clinician Unavailable Adam CHICAS Attending Clinician Unavailable DEVIKA JADE Attending Clinician Unavailable DEVIKA JADE Attending Clinician Unavailable STEPH Attending Clinician Unavailable JORDAN Admitting Clinician Unavailable DEENA Admitting Clinician Unavailable STEPH Admitting Clinician Unavailable Payers Payer Name Policy Type Policy Number Effective Date Expiration Date Ellie garcia MEDICARE PART A [id number] 1998 \\T\\ [id number] 00:00:00 MEDICAID [facility] [id number] 2020 00:00:00 MEDICARE A B [id number] 1998 00:00:00 MEDICAID OF [place] [id number] 2011 00:00:00 Problems Condition Condition Condition Status Onset Resolution Last Treating Co mments Source Name Details Category Date Date Treatment Clinician Date COPD COPD Disease Active 2020-[address] [facility] exacerb[facility] exacerbati 11-08 [facility]qui [facility] - on on 00:00: Medical 00 Center Bacteremia Bacteremia Disease Active 2020-[address] [facility] Pneumonia Pneumonia Disease Active Uni vers due to due to 8-17 ity of COVID-19 COVID-19 00:00: [place] virus virus 00 Medical Branch Acute Acute Disease Active Univers respirator respirator 8-17 [place] y of y failure y failure [place] COVID-19 COVID-19 Branch SOB SOB Disease Active 2019-09 Univers (shortness (shortness 0-31 it y of of breath[place] breath[place] Stroke Stroke Disease Active 2018-09 Univers 2-01 ity of 00:00: [place] 00 Medical Branch Hypothyroi Hypothyroi Disease Active Overview : Univers dism dism 01-06 [facility] ity of (acquired) (acquired) 00:00: g of this [place] 00 note Medical might be Branch different from the original. ICD10 Diagnosis Term Seismic Survey Assistant Utility COPD COPD Disease Active Univers (chronic (chronic 01-06 ity of obstructiv obstructiv 00:00: [place] e 00 Medical pulmonary pulmonary Bran ch disease) disease) Vitamin D Vitamin D Disease Active Overview: Univers deficiency deficiency - Form[facility] ity of 00:00: g of this [place] 00 note Medical might be Branch different from the original. ICD10 Diagnosis Term Seismic Survey Assistant Utility Osteoporos Osteoporos Disease Active U nivers is is 4-22 ity of 00:00: [place] Medical Branch CVA CVA Disease Active Univers (cerebral (cerebral 01-06 ity of vascular vascular 00:00: [place] accident) accident) 00 [facility] zia Branch Joint Joint Disease Active Univers contractur contractur 01-06 it y of e of hand, e of hand, 00:[place] right right Medical Branch Tobacco Tobacco Disease Active Univers abuse abuse 01-06 ity of 00:00: [place] [facility] Marijuana Marijuana Disease Active Uni vers abuse abuse 01-06 ity of 00:00: [place] 00 Medical Branch Allergies, Adverse Reactions, Alerts Allergy Allergy Status Severity Reaction(s) Onset Inactive Treating Comm ents Source Name Type Date Date Clinician SHELLFIS Allergy Active High Sob 2019-[address] [facility] D[facility] Shellfis Drug Active Shortness Of 2019-[address] [facility] Allergy Breath, 09-20 [facility] - Derived Swelling 00:00: Medical 00 Center Shellfis Propensi Active Swelling 2019-09 Univ ers h ty to 09-20 ity of Derived adverse 00:00: [place] reaction Medical s Branch SHELLFIS DRUG Active SOB 2019-09 Univers H INGREDI 09-20 ity of DERIVED 00:00: [place] 00 Medical Branch CODEINE Allergy Active High Swelling [facility] 4-03 [facility] - 00[facility] Center Codeine Drug Active Swelling throat [facility] Allergy 12-18 [facility] - 00:[facility]: Medical 00 Center Codeine Propensi Active Swelling throat Unive rs ty to 12-18 ity of adverse 00:00: [place] reaction 00 Medical s Branch CODEINE DRUG Active High Swelling Univers INGREDI - ity of 00:00: [place] 00 Medical Branch IODINE Allergy Active High Swelling [facility] 01-06 [facility] - 00:[facility]: Medical 00 Center Iodine Drug Active Swelling (shell [facility] Allergy 01-06 fish) [facility] Propensi Active Swelling (shell Univer s ty to 01-06 fish) ity of adverse 00:00: throat [place] reaction 00 [facility] IODINE DRUG Active High Swelling 2014- Univers INGREDI 01-06 ity of 00:00: [place] 00 Medical Branch Social History Social Habit Start Date Stop Date Quantity Comments Source Exposure to Not sure University of SARS-CoV-2 (event) [facility] History SDOH [facility] - Alcohol Std Drinks Medica l Center History SDOH [facility] - Alcohol Binge Medical [facility] History SDOH [facility] - Alcohol Comment Medical C enter Tobacco use and 2021-09-08 2021-09-[address] Jaqui kes - exposure 00:00:00 00:00:00 [facility] Alcohol intake 2021-09-08 2021-09-[address] [facility] - 00:00:00 00:00:00 non-drinker Medical Cente r (finding) History SDOH 2021-09-08 2021-09-[address] [facility] - Alcohol Frequency 00:00:00 00:00:00 [facility] Tobacco Comment 2021-05-03 2021-05-03 Used to smoke 2 Univ ersity of 00:00:00 00:00:00 packs per day- [place] Medi zia quit aug 2020 Branch Cigarettes smoked 2020-10-13 2020-10-13 Univers ity of current (pack per 00:00:00 00:00:00 [facility] ) - Reported Branch Cigarette 2020-10-13 2020-10-13 University of pack-years 00:00:00 00:00:00 [facility] History of tobacco 2020-06-20 Cigarette Smoker University of use 00:00:00 [facility] Sex Assigned At [address] [facility] Jaqui kes - 00:00:00 00:00:00 [facility] Smoking Status Start Date Stop Date Source Former smoker 2021-09-08 00:00:00 2021-09-08 00:00:[address] [facility] - [facility] Medications Ordered Filled Start Stop Current Ordering Indication Dosage Frequency Signature Comments Components Source Medication Medication Date Date Medication? Clinician (SIG) Name Name polyethylen 2020-09- No 17g Take [address] [facility] e glycol 09-17 by mouth [facility] - (GLYCOLAX) 00:00: 23:59 daily as Me dical 17 gram 00 :00 needed Center packet (Constipat ion) for up to 3 days. polyethylen 2020-09- No 17g Take [address] e glycol 09-17 by mouth [facility] - (GLYCOLAX) 00:00: 23:59 daily as Me dical 17 gram 00 :00 needed Center packet (Constipat ion) for up to 3 days. vancomycin- 2020-09- No 1250mg Q24H Inject [address] water - 12-31 mLs (1,250 [facility] - inject, 00:00: 23:59 mg total) Medi zia PEG, (VANCO 00 :00 intravenou Ce nter READY) 1.25 sly daily gram/250 mL for 2 PgBk days. vancomycin- 2020-09- No 1250mg Q24H Inject [address] water - 12-31 mLs (1,250 [facility] - inject, 00:00: 23:59 mg total) Medi zia PEG, (VANCO 00 :00 intravenou Ce nter READY) 1.25 sly daily gram/250 mL for 2 PgBk days. levothyroxi 2020-09 Yes [id number] 25ug Take 1 Univers ne 25 mcg 2-09 tablet by ity o f tablet 00:00: mouth [place] 00 every Medical morning. Branch clopidogreL 2020-09 Yes [id number] 75mg Take 1 Univers 75 mg 2-09 tablet by ity of tablet 00:00: mouth [place] 00 daily. Medical Branch levothyroxi 2020-09 Yes [id number] 25ug Take 1 Univers ne 25 mcg 2-09 tablet by ity o f tablet 00:00: mouth [place] 00 every Medical morning. Branch clopidogreL 2020-09 Yes [id number] 75mg Take 1 Univers 75 mg 2-09 tablet by ity of tablet 00:00: mouth [place] 00 daily. Medical Branch clopidogreL 2020-09 Yes 1{tbl} QD Take [address] (PLAVIX) 75 2-09 tablet by [facility] es - mg tablet 00:00: mouth Medical 00 daily. [place] levothyroxi 2020-09 Yes 1{tbl} QD Take [address] ne 2-09 tablet by [facility] - (SYNTHROID, 00:00: mouth Medic al LEVOTHROID) 00 every Center 25 MCG morning. tablet clopidogreL 2020-09 Yes 1{tbl} QD Take [address] (PLAVIX) 75 2-09 tablet by [facility] es - mg tablet 00:00: mouth Medical 00 daily. Center levothyroxi 2020-09 Yes 1{tbl} QD Take [address] ne 2-09 tablet by [facility] - (SYNTHROID, 00:00: mouth Medic al LEVOTHROID) 00 every Center 25 MCG morning. tablet ipratropium 2020-09- No 9mL 9 mL, Univ ers -albuteroL 10-25 Inhalation it y of (DUONEB) 02:00: 01:05 , ONCE, 1 [place] as 0.5 mg-3 00 :00 dose, On Medical mg(2.5 mg Tue Branch base)/3 mL 08/23/21 at nebulizer 2000, JEFF solution 9 mL methylpredn 2020-09 No 125mg 125 mg, IV Univers isolone sod 10-25 Piggyback, i ty of succ 02:00: 00:54 ONCE, 1 [place] (SOLU-MEDRO 00 :00 dose, On Medi zia L) Tue Branch injection 08/23/21 at 125 mg 1999, STAT albuterol 2020-09 Yes [id number] 2{puff} Inhale 2 Univers 90 2-07 Puffs ity of mcg/actuati 00:00: every 4 [place] as on inhaler 00 (four) Medical hours as Branch needed for Wheezing or Shortness of Breath. albuterol 2020-09 Yes 2.5mg Inhale 3 Univers 2.5 mg /3 2-07 mL every 4 ity of mL (0.083 00:00: (four) [place] %) 00 hours. May Medical nebulizer also Branch solution nebulize one extra every 6 hours. predniSONE 2020-09 Yes 50mg Take 1 Univers 50 mg 2-07 tablet by ity of tablet 00:00: mouth [place] 00 daily. Medical Branch benzonatate 2020-09 Yes 200mg Take 1 Univers 200 mg 2-07 capsule by ity of capsule 00:00: mouth 3 [place] 00 (three) Medical times Branch daily as needed for Cough. albuterol 2020-09 Yes [id number] 2{puff} Inhale 2 Univers 90 2-07 Puffs ity of mcg/actuati 00:00: every 4 [place] as on inhaler 00 (four) Medical hours as Branch needed for Wheezing or Shortness of Breath. albuterol 2020-09 Yes [id number] 2.5mg Inhale 3 Univers 2.5 mg /3 2-07 mL every 4 ity of mL (0.083 00:00: (four) [place] %) 00 hours. May Medical nebulizer also Branch solution nebulize one extra every 6 hours. predniSONE 2020-09 Yes [id number] 50mg Take 1 Univers 50 mg 2-07 tablet by ity of tablet 00:00: mouth [place] 00 daily. Medical Branch benzonatate 2020-09 Yes [id number] 200mg Take 1 Univers 200 mg 2-07 capsule by ity of capsule 00:00: mouth 3 [place] 00 (three) Medical times Branch daily as needed for Cough. albuterol 2020-09 Yes [id number] 2{puff} Inhale 2 Univers 90 2-07 Puffs ity of mcg/actuati 00:00: every 4 [place] as on inhaler 00 (four) Medical hours as Branch needed for Wheezing or Shortness of Breath. albuterol 2020-09 Yes [id number] 2.5mg Inhale 3 Univers 2.5 mg /3 2-07 mL every 4 ity of mL (0.083 00:00: (four) [place] %) 00 hours. May Medical nebulizer also Branch solution nebulize one extra every 6 hours. predniSONE 2020-09 Yes [id number] 50mg Take 1 Univers 50 mg 2-07 tablet by ity of tablet 00:00: mouth [place] 00 daily. Medical Branch benzonatate 2020-09 Yes [id number] 200mg Take 1 Univers 200 mg 2-07 capsule by ity of capsule 00:00: mouth 3 [place] 00 (three) Medical times Branch daily as needed for Cough. benzonatate 2020-09 Yes 200mg Take [address] (TESSALON) 2-07 mg by [facility] - 200 MG 00:00: mouth 3 Medical capsule 00 (three) Center times daily as needed. predniSONE 2020-09 Yes 1{tbl} QD Take [address] [facility] (DELTASONE) 2-07 tablet by [facility] - 50 MG 00:00: mouth Medical tablet 00 daily. [place] benzonatate 2020-09 Yes 200mg Take [address] (TESSALON) 2-07 mg by [facility] - 200 MG 00:00: mouth 3 Medical capsule 00 (three) Center times daily as needed. predniSONE 2020-09 Yes 1{tbl} QD Take [address] (DELTASONE) 2-07 tablet by [facility] - 50 MG 00:00: mouth Medical tablet 00 daily. [place] famotidine 2020-09 Yes [id number] 40mg Take 1 Univers 40 mg 1-16 tablet by ity of tablet 00:00: mouth [place] 00 daily. Medical Branch famotidine 2020-09 Yes [id number] 40mg Take 1 Univers 40 mg 1-16 tablet by ity of tablet 00:00: mouth [place] 00 daily. Medical Branch famotidine 2020-09 Yes [id number] 40mg Take 1 Univers 40 mg 1-16 tablet by ity of tablet 00:00: mouth [place] 00 daily. Medical Branch famotidine 2020-09 Yes [id number] 40mg Take 1 Univers 40 mg 1-16 tablet by ity of tablet 00:00: mouth [place] 00 daily. Medical Branch famotidine 2020-09 Yes [id number] 40mg Take 1 Univers 40 mg 1-16 tablet by ity of tablet 00:00: mouth [place] 00 daily. Medical Branch famotidine 2020-09 Yes [id number] 40mg Take 1 Univers 40 mg 1-16 tablet by ity of tablet 00:00: mouth [place] 00 daily. Medical Branch budesonide- 2020-09 Yes [id number] 2{puff} Inhale 2 Univers formoteroL 0-14 Puffs 2 ity of (SYMBICORT) 00:00: (two) [place] 160-4.5 00 times Medical mcg/actuati daily. Branch on inhaler albuterol 2020-09 Yes 2{puff} Inhale 2 U nivers (PROAIR 0-14 Puffs ity of HFA) 90 00:00: every 6 [place] mcg/actuati 00 (six) Medical on inhaler hours as Branc h needed for Wheezing or Shortness of Breath. budesonide- 2020-09 Yes [id number] 2{puff} Inhale 2 Univers formoteroL 0-14 Puffs 2 ity of (SYMBICORT) 00:00: (two) [place] 160-4.5 00 times Medical mcg/actuati daily. Branch on inhaler albuterol 2020-09 Yes 2{puff} Inhale 2 U nivers (PROAIR 0-14 Puffs ity of HFA) 90 00:00: every 6 [place] mcg/actuati 00 (six) Medical on inhaler hours as Branc h needed for Wheezing or Shortness of Breath. budesonide- 2020-09 Yes [id number] 2{puff} Inhale 2 Univers formoteroL 0-14 Puffs 2 ity of (SYMBICORT) 00:00: (two) [place] 160-4.5 00 times Medical mcg/actuati daily. Branch on inhaler albuterol 2020-09 Yes 2{puff} Inhale 2 U nivers (PROAIR 0-14 Puffs ity of HFA) 90 00:00: every 6 [place] mcg/actuati 00 (six) Medical on inhaler hours as Branc h needed for Wheezing or Shortness of Breath. budesonide- 2020-09 Yes [id number] 2{puff} Inhale 2 Univers formoteroL 0-14 Puffs 2 ity of (SYMBICORT) 00:00: (two) [place] 160-4.5 00 times Medical mcg/actuati daily. Branch on inhaler albuterol 2020-09 Yes 2{puff} Inhale 2 U nivers (PROAIR 0-14 Puffs ity of HFA) 90 00:00: every 6 [place] mcg/actuati 00 (six) Medical on inhaler hours as Branc h needed for Wheezing or Shortness of Breath. budesonide- 2020-09 Yes [id number] 2{puff} Inhale 2 Univers formoteroL 0-14 Puffs 2 ity of (SYMBICORT) 00:00: (two) [place] 160-4.5 00 times Medical mcg/actuati daily. Branch on inhaler albuterol 2020-09 Yes 2{puff} Inhale 2 U nivers (PROAIR 0-14 Puffs ity of HFA) 90 00:00: every 6 [place] mcg/actuati 00 (six) Medical on inhaler hours as Branc h needed for Wheezing or Shortness of Breath. budesonide- 2020-09 Yes [id number] 2{puff} Inhale 2 Univers formoteroL 0-14 Puffs 2 ity of (SYMBICORT) 00:00: (two) [place] 160-4.5 00 times Medical mcg/actuati daily. Branch on inhaler albuterol 2020-09 Yes 2{puff} Inhale 2 U nivers (PROAIR 0-14 Puffs ity of HFA) 90 00:00: every 6 [place] mcg/actuati 00 (six) Medical on inhaler hours as Branc h needed for Wheezing or Shortness of Breath. budesonide- 2020-09 Yes [id number] 2{puff} Inhale 2 Univers formoteroL 0-14 Puffs 2 ity of (SYMBICORT) 00:00: (two) [place] 160-4.5 00 times Medical mcg/actuati daily. Branch on inhaler albuterol 2020-09 Yes 2{puff} Inhale 2 U nivers (PROAIR 0-14 Puffs ity of HFA) 90 00:00: every 6 [place] mcg/actuati 00 (six) Medical on inhaler hours as Branc h needed for Wheezing or Shortness of Breath. budesonide- 2020-09 Yes [id number] 2{puff} Inhale 2 Univers formoteroL 0-14 Puffs 2 ity of (SYMBICORT) 00:00: (two) [place] 160-4.5 00 times Medical mcg/actuati daily. Branch on inhaler albuterol 2020-09 Yes 2{puff} Inhale 2 U nivers (PROAIR 0-14 Puffs ity of HFA) 90 00:00: every 6 [place] mcg/actuati 00 (six) Medical on inhaler hours as Branc h needed for Wheezing or Shortness of Breath. budesonide- 2020-09 Yes 2{puff} Q.5D Inhale [address] [facility] [address] formoteroL 0-14 puffs by [facility] - (SYMBICORT) 00:00: mouth via M edical 160-4.5 00 inhaler 2 Center mcg/actuati (two) on inhaler times daily. budesonide- 2020-09 Yes 2{puff} Q.5D Inhale [address] formoteroL 0-14 puffs by [facility] - (SYMBICORT) 00:00: mouth via M edical 160-4.5 00 inhaler 2 Center mcg/actuati (two) on inhaler times daily. amitriptyli Yes [id number] 150mg Take 3 Univers ne 50 mg 9-13 tablets by ity o f tablet 00:00: mouth at [place] [address] bedtime. Medical Branch amitriptyli Yes [id number] 150mg Take 3 Univers ne 50 mg 9-13 tablets by ity o f tablet 00:00: mouth at [place] 00 bedtime. Medical Branch amitriptyli Yes [id number] 150mg Take 3 Univers ne 50 mg 9-13 tablets by ity o f tablet 00:00: mouth at [place] 00 bedtime. Medical Branch amitriptyli Yes [id number] 150mg Take 3 Univers ne 50 mg 9-13 tablets by ity o f tablet 00:00: mouth at [place] [address] bedtime. Medical Branch amitriptyli Yes [id number] 150mg Take 3 Univers ne 50 mg 9-13 tablets by ity o f tablet 00:00: mouth at [place] [address] bedtime. Medical Branch amitriptyli Yes [id number] 150mg Take 3 Univers ne 50 mg 9-13 tablets by ity o f tablet 00:00: mouth at [place] [address] bedtime. Medical Branch amitriptyli Yes [id number] 150mg Take 3 Univers ne 50 mg 9-13 tablets by ity o f tablet 00:00: mouth at [place] [address] bedtime. Medical Branch amitriptyli Yes [id number] 150mg Take 3 Univers ne 50 mg 9-13 tablets by ity o f tablet 00:00: mouth at [place] [address] bedtime. Medical Branch amitriptyli Yes 3{tbl} QD Take [address] [facility] (ELAVIL) 9-13 tablets by Jaqui kes - 50 MG 00:00: mouth Medical tablet 00 nightly. [facility] amitriptyli Yes 3{tbl} QD Take [address] [facility] (ELAVIL) 9-13 tablets by Jaqui kes - 50 MG 00:00: mouth Medical tablet 00 nightly. [facility] ARIPiprazol Yes 2mg Take 2 mg U nivers e 2 mg 8-26 by mouth ity of tablet 00:00: at [place] [address] bedtime. Medical Branch ARIPiprazol Yes 2mg Take 2 mg U nivers e 2 mg 8-26 by mouth ity of tablet 00:00: at [place] [address] bedtime. Medical Branch ARIPiprazol Yes 2mg Take 2 mg U nivers e 2 mg 8-26 by mouth ity of tablet 00:00: at [place] [address] bedtime. Medical Branch ARIPiprazol Yes 2mg Take 2 mg U nivers e 2 mg 8-26 by mouth ity of tablet 00:00: at [place] [address] bedtime. Medical Branch ARIPiprazol Yes 2mg Take 2 mg U nivers e 2 mg 8-26 by mouth ity of tablet 00:00: at [place] [address] bedtime. Medical Branch ARIPiprazol Yes 2mg Take 2 mg U nivers e 2 mg 8-26 by mouth ity of tablet 00:00: at [place] [address] bedtime. Medical Branch ARIPiprazol Yes 2mg QD Take [address] [facility] (ABILIFY) 8-26 by mouth [place] [facility] - 2 MG tablet 00:00: nightly. [place] [facility] [place] ARIPiprazol Yes 2mg QD Take [address] [facility] (ABILIFY) 8-26 by mouth [facility] - 2 MG tablet 00:00: [place]ly. [place] [facility] budesonide 2021- No [id number] 1mg Use 2 mL Univers 1 mg/2 mL 05-03 10-14 as ity of nebulizer 00:00: 00:00 directed [place] as solution 00 :00 every 8 Medical (eight) Branch hours as needed (shortness of breath). CLOPIDOGREL 0 Yes [id number] TAKE ONE Univers 75 mg 4-07 TABLET BY ity of tablet 00:00: MOUTH [place] DAILY Medical Branch CLOPIDOGREL 0 Yes [id number] TAKE ONE Univers 75 mg 4-07 TABLET BY ity of tablet 00:00: MOUTH [place] DAILY Medical Branch CLOPIDOGREL 0 Yes [id number] TAKE ONE Univers 75 mg 4-07 TABLET BY ity of tablet 00:00: MOUTH [place] 00 DAILY Medical Branch CLOPIDOGREL 2021-0 Yes [id number] TAKE ONE Univers 75 mg 4-07 TABLET BY ity of tablet 00:00: MOUTH [place] 00 DAILY Medical Branch CLOPIDOGREL 2021-0 Yes [id number] TAKE ONE Univers 75 mg 4-07 TABLET BY ity of tablet 00:00: MOUTH [place] 00 DAILY Medical Branch CLOPIDOGREL 2021-0 Yes [id number] TAKE ONE Univers 75 mg 4-07 TABLET BY ity of tablet 00:00: MOUTH [place] 00 DAILY Medical Branch CLOPIDOGREL 2021-0 2021- No [id number] TAKE ONE Univers 75 mg 4-07 12-07 TABLET BY ity of tablet 00:00: 00:00 MOUTH [place] 00 :00 DAILY Medical Branch benzonatate 2020-0 Yes [id number] 100mg Take 1 Univers (TESSALON 1-27 capsule by ity of PERLES) 100 00:00: mouth 3 [place] as mg capsule 00 (three) Medica l times Branch daily. benzonatate 2020-0 Yes [id number] 100mg Take 1 Univers (TESSALON 1-27 capsule by ity of PERLES) 100 00:00: mouth 3 [place] as mg capsule 00 (three) Medica l times Branch daily. benzonatate 2020-0 Yes [id number] 100mg Take 1 Univers (TESSALON 1-27 capsule by ity of PERLES) 100 00:00: mouth 3 [place] as mg capsule 00 (three) Medica l times Branch daily. benzonatate 2020-0 Yes [id number] 100mg Take 1 Univers (TESSALON 1-27 capsule by ity of PERLES) 100 00:00: mouth 3 [place] as mg capsule 00 (three) Medica l times Branch daily. benzonatate 2020-0 Yes [id number] 100mg Take 1 Univers (TESSALON 1-27 capsule by ity of PERLES) 100 00:00: mouth 3 [place] as mg capsule 00 (three) Medica l times Branch daily. benzonatate 2020-0 Yes [id number] 100mg Take 1 Univers (TESSALON 1-27 capsule by ity of PERLES) 100 00:00: mouth 3 [place] as mg capsule 00 (three) Medica l times Branch daily. benzonatate 2020-0 Yes [id number] 100mg Take 1 Univers (TESSALON 1-27 capsule by Ade) 100 00:00: mouth 3 [place] as mg capsule 00 (three) Medica l times Branch daily. benzonatate Yes [id number] 100mg Take 1 Univers (TESSALON 1-27 capsule by Ade) 100 00:00: mouth 3 [place] as mg capsule 00 (three) Medica l times Branch daily. atorvastati Yes [id number] 20mg Take 1 Univers n 20 mg 1-07 tablet by ity of tablet 00:00: mouth at [place] 00 bedtime. Medical Branch levothyroxi Yes [id number] 25ug Take 1 Univers ne 25 mcg 1-07 tablet by ity o f tablet 00:00: mouth [place] 00 every Medical morning. Branch atorvastati Yes [id number] 20mg Take 1 Univers n 20 mg 1-07 tablet by ity of tablet 00:00: mouth at [place] 00 bedtime. Medical Branch levothyroxi 2020-0 Yes [id number] 25ug Take 1 Univers ne 25 mcg 1-07 tablet by ity o f tablet 00:00: mouth [place] 00 every Medical morning. Branch atorvastati 0 Yes [id number] 20mg Take 1 Univers n 20 mg 1-07 tablet by ity of tablet 00:00: mouth at [place] 00 bedtime. Medical Branch levothyroxi 2020-0 Yes [id number] 25ug Take 1 Univers ne 25 mcg 1-07 tablet by ity o f tablet 00:00: mouth [place] 00 every Medical morning. Branch atorvastati 2020-0 Yes [id number] 20mg Take 1 Univers n 20 mg 1-07 tablet by ity of tablet 00:00: mouth at [place] 00 bedtime. Medical Branch levothyroxi 2020-0 Yes [id number] 25ug Take 1 Univers ne 25 mcg 1-07 tablet by ity o f tablet 00:00: mouth [place] 00 every Medical morning. Branch atorvastati 2020-0 Yes [id number] 20mg Take 1 Univers n 20 mg 1-07 tablet by ity of tablet 00:00: mouth at [place] 00 bedtime. Medical Branch levothyroxi 2020-0 Yes [id number] 25ug Take 1 Univers ne 25 mcg 1-07 tablet by ity o f tablet 00:00: mouth [place] 00 every Medical morning. Branch atorvastati 2020-0 Yes [id number] 20mg Take 1 Univers n 20 mg 1-07 tablet by ity of tablet 00:00: mouth at [place] 00 bedtime. Medical Branch levothyroxi 2020-0 Yes [id number] 25ug Take 1 Univers ne 25 mcg 1-07 tablet by ity o f tablet 00:00: mouth [place] 00 every Medical morning. Branch atorvastati 2020-0 Yes [id number] 20mg Take 1 Univers n 20 mg 1-07 tablet by ity of tablet 00:00: mouth at [place] 00 bedtime. Medical Branch atorvastati 2020-0 Yes [id number] 20mg Take 1 Univers n 20 mg 1-07 tablet by ity of tablet 00:00: mouth at [place] 00 bedtime. Medical Branch atorvastati 2020-0 Yes 20mg QD Take [address] [facility] (LIPITOR) 1-07 by mouth [facility] - 20 MG 00:00: daily. Medical tablet 00 [facility] atorvastati 0 Yes 20mg QD Take [address] [facility] (LIPITOR) 1-07 by mouth [facility] - 20 MG 00:00: daily. Medical tablet 00 [place] levothyroxi 2020- 2021- No [id number] 25ug Take 1 Univers ne 25 mcg 1-07 12-09 tablet by ity of tablet 00:00: 00:00 mouth [place] 00 :00 every Medical morning. Branch ipratropium 2020-1 Yes [id number] .5mg Inhale 2.5 Univers 0.02 % 2-18 mL every 8 ity of nebulizer 00:00: (eight) [place] solution 00 hours as Medical needed for Branch Wheezing or Shortness of Breath. ipratropium 2020-1 Yes [id number] .5mg Inhale 2.5 Univers 0.02 % 2-18 mL every 8 ity of nebulizer 00:00: (eight) [place] solution 00 hours as Medical needed for Branch Wheezing or Shortness of Breath. ipratropium 2020-1 Yes [id number] .5mg Inhale 2.5 Univers 0.02 % 2-18 mL every 8 ity of nebulizer 00:00: (eight) [place] solution 00 hours as Medical needed for Branch Wheezing or Shortness of Breath. ipratropium 2020-1 Yes [id number] .5mg Inhale 2.5 Univers 0.02 % 2-18 mL every 8 ity of nebulizer 00:00: (eight) [place] solution 00 hours as Medical needed for Branch Wheezing or Shortness of Breath. ipratropium 2020-1 Yes [id number] .5mg Inhale 2.5 Univers 0.02 % 2-18 mL every 8 ity of nebulizer 00:00: (eight) [place] solution 00 hours as Medical needed for Branch Wheezing or Shortness of Breath. ipratropium 2020-1 Yes [id number] .5mg Inhale 2.5 Univers 0.02 % 2-18 mL every 8 ity of nebulizer 00:00: (eight) [place] solution 00 hours as Medical needed for Branch Wheezing or Shortness of Breath. ipratropium 2020-1 Yes [id number] .5mg Inhale 2.5 Univers 0.02 % 2-18 mL every 8 ity of nebulizer 00:00: (eight) [place] solution 00 hours as Medical needed for Branch Wheezing or Shortness of Breath. ipratropium 2020-1 Yes [id number] .5mg Inhale 2.5 Univers 0.02 % 2-18 mL every 8 ity of nebulizer 00:00: (eight) [place] solution 00 hours as Medical needed for Branch Wheezing or Shortness of Breath. aspirin 81 2019- Yes [id number] 81mg Take 1 Univers mg chewable 1-11 tablet by ity of tablet 00:00: mouth [place] 00 daily. Medical Branch aspirin 81 2019- Yes [id number] 81mg Take 1 Univers mg chewable 1-11 tablet by ity of tablet 00:00: mouth [place] 00 daily. Medical Branch aspirin 81 2020- Yes [id number] 81mg Take 1 Univers mg chewable 1-11 tablet by ity of tablet 00:00: mouth [place] 00 daily. Medical Branch aspirin 81 2020- Yes [id number] 81mg Take 1 Univers mg chewable 1-11 tablet by ity of tablet 00:00: mouth [place] 00 daily. Medical Branch aspirin 81 2020- Yes [id number] 81mg Take 1 Univers mg chewable 1-11 tablet by ity of tablet 00:00: mouth [place] 00 daily. Medical Branch aspirin 81 2019- Yes [id number] 81mg Take 1 Univers mg chewable 1-11 tablet by ity of tablet 00:00: mouth [place] 00 daily. Medical Branch aspirin 81 2019-09 Yes [id number] 81mg Take 1 Univers mg chewable 1-11 tablet by ity of tablet 00:00: mouth [place] 00 daily. Medical Branch aspirin 81 2019-09 Yes [id number] 81mg Take 1 Univers mg chewable 1-11 tablet by ity of tablet 00:00: mouth [place] 00 daily. Medical Branch famotidine 2019-09 Yes [id number] 20mg Take 2.5 Univers 40 mg/5 mL 1-10 mL by ity of (8 mg/mL) 00:00: mouth [place] suspension 00 every 12 Medic al (twelve) Branch hours. famotidine 2019-09 Yes [id number] 20mg Take 2.5 Univers 40 mg/5 mL 1-10 mL by ity of (8 mg/mL) 00:00: mouth [place] suspension 00 every 12 Medic al (twelve) Branch hours. famotidine 2019-09- No [id number] 20mg Take 2.5 Univers 40 mg/5 mL 1-10 11-16 mL by ity of (8 mg/mL) 00:00: 00:00 mouth [place] suspension 00 :00 every 12 Medic al (twelve) Branch hours. PROAIR HFA 2018-09- No [id number] INHALE TWO Univers 90 0-11 10-14 PUFFS BY ity of mcg/actuati 00:00: 00:00 [place]TH [place] inhal[place] 00 :00 EVERY 6 Medica l HOURS Branch NEEDED FOR WHEEZING OR FOR SHORTNESS OF BREATH Immunizations Ordered Filled Immunization Date Status Comments [facility] e Immunization Name Name SARS-COV-2 COVID-19 2020-11-30 Completed Unive rsity of PFIZER VACCINE 00:00:00 [facility] SARS-COV-2 COVID-19 2020-11-30 Completed Unive rsity of PFIZER VACCINE 00:00:00 [facility] SARS-COV-2 COVID-19 2020-11-30 Completed Unive rsity of PFIZER VACCINE 00:00:00 [facility] SARS-COV-2 COVID-19 2020-11-30 Completed Unive rsity of PFIZER VACCINE 00:00:00 [facility] SARS-COV-2 COVID-19 2020-11-30 Completed Unive rsity of PFIZER VACCINE 00:00:00 [facility] SARS-COV-2 COVID-19 2020-11-30 Completed Unive rsity of PFIZER VACCINE 00:00:00 [facility] SARS-COV-2 COVID-19 2020-11-30 Completed Unive rsity of PFIZER VACCINE 00:00:00 [facility] SARS-COV-2 COVID-19 2020-11-30 Completed Unive rsity of PFIZER VACCINE 00:00:00 [facility] Branch SARS-COV-2 COVID-19 2020-11-09 Completed Unive rsity of PFIZER VACCINE 00:00:00 [facility] SARS-COV-2 COVID-19 2020-11-09 Completed Unive rsity of PFIZER VACCINE 00:00:00 [facility] SARS-COV-2 COVID-19 2020-11-09 Completed Unive rsity of PFIZER VACCINE 00:00:00 [facility] SARS-COV-2 COVID-19 2020-11-09 Completed Unive rsity of PFIZER VACCINE 00:00:00 [facility] SARS-COV-2 COVID-19 2020-11-09 Completed Unive rsity of PFIZER VACCINE 00:00:00 [facility] SARS-COV-2 COVID-19 2020-11-09 Completed Unive rsity of PFIZER VACCINE 00:00:00 [facility] SARS-COV-2 COVID-19 2020-11-09 Completed Unive rsity of PFIZER VACCINE 00:00:00 [facility] SARS-COV-2 COVID-19 2020-11-09 Completed Unive rsity of PFIZER VACCINE 00:00:00 [facility] Influenza Virus 2020-08-19 Completed Universit y of Vaccine Quad .5 mL 00:00:00 [place] [facility] IM 6+ MO Branch Influenza Virus 2020-08-19 Completed Universit y of Vaccine Quad .5 mL 00:00:00 [place] [facility] IM 6+ MO Branch Influenza Virus 2020-08-19 Completed Universit y of Vaccine Quad .5 mL 00:00:00 [place] [facility] IM 6+ MO Branch Influenza Virus 2020-08-19 Completed Universit y of Vaccine Quad .5 mL 00:00:00 [place] [facility] IM 6+ MO Branch Influenza Virus [...] y of Vaccine Quad .5 mL 00:00:00 [place] [facility] IM 6+ MO Branch Influenza Virus 2019-08-20 Completed Universit y of Vaccine Quad .5 mL 00:00:00 [place] [facility] IM 6+ MO Branch Influenza Virus 2019-08-20 Completed Universit y of Vaccine Quad .5 mL 00:00:00 [place] [facility] IM 6+ MO Branch Influenza Virus 2019-08-20 Completed Universit y of Vaccine Quad .5 mL 00:00:00 [place] [facility] IM 6+ MO Branch Influenza Virus 2019-08-20 Completed Universit y of Vaccine Quad .5 mL 00:00:00 [place] [facility] IM 6+ MO Branch Influenza Virus 2019-08-20 Completed Universit y of Vaccine Quad .5 mL 00:00:00 [place] [facility] IM 6+ MO Branch Influenza Virus 2018-06-18 Completed Universit y of Vaccine Quad IM 3+ 00:00:00 [facility] Pneumococcal 2018-06-18 Completed University o f Polysaccharide, 00:00:00 [place] [facility] ical PPSV23 (PNEUMOVAX) Branch Influenza Virus 2018-06-18 Completed Universit y of Vaccine Quad IM 3+ 00:00:00 [facility] Pneumococcal 2018-06-18 Completed University o f Polysaccharide, 00:00:00 [place] [facility] ical PPSV23 (PNEUMOVAX) Branch Influenza Virus 2018-06-18 Completed Universit y of Vaccine Quad IM 3+ 00:00:00 [facility] Pneumococcal 2018-06-18 Completed University o f Polysaccharide, 00:00:00 [place] [facility] ical PPSV23 (PNEUMOVAX) Branch Influenza Virus 2018-06-18 Completed Universit y of Vaccine Quad IM 3+ 00:00:00 [facility] Pneumococcal 2018-06-18 Completed University o f Polysaccharide, 00:00:00 [place] [facility] ical PPSV23 (PNEUMOVAX) Branch Influenza Virus 2018-06-18 Completed Universit y of Vaccine Quad IM 3+ 00:00:00 [facility] Pneumococcal 2018-06-18 Completed University o f Polysaccharide, 00:00:00 [place] [facility] ical PPSV23 (PNEUMOVAX) Branch Influenza Virus 2018-06-18 Completed Universit y of Vaccine Quad IM 3+ 00:00:00 [facility] Pneumococcal 2018-06-18 Completed University o f Polysaccharide, 00:00:00 [place] [facility] PPSV23 (PNEUMOVAX) Branch Influenza Virus 2018-06-18 Completed Universit y of Vaccine Quad IM 3+ 00:00:00 [facility] Pneumococcal 2018-06-18 Completed University o f Polysaccharide, 00:00:00 [place] [facility] PPSV23 (PNEUMOVAX) Branch Influenza Virus 2018-06-18 Completed Universit y of Vaccine Quad IM 3+ 00:00:00 [facility] Pneumococcal 2018-06-18 Completed University o f Polysaccharide, 00:00:00 [place] [facility] PPSV23 (PNEUMOVAX) Branch Influenza Virus 2017-10-17 Completed Universit y of Vaccine Quad ID 00:00:00 [place] [facility] 18-64 YRS [place] Influenza Virus 2017-10-17 Completed Universit y of Vaccine Quad ID 00:00:00 [place] [facility] 18-64 YRS [place] Influenza Virus 2017-10-17 Completed Universit y of Vaccine Quad ID 00:00:00 [place] [facility] 18-64 YRS Branch Influenza Virus 2017-10-17 Completed Universit y of Vaccine Quad ID 00:00:00 [place] [facility] 18-64 YRS [place] Influenza Virus 2017-10-17 Completed Universit y of Vaccine Quad ID 00:00:00 [place] [facility] ical 18-64 YRS Branch Influenza Virus 2017-10-17 Completed Universit y of Vaccine Quad ID 00:00:00 [place] [facility] 1864 YRS [place] Influenza Virus 2017-10-17 Completed Universit y of Vaccine Quad ID 00:00:00 [place] [facility] 18-64 YRS [place] Influenza Virus 2017-10-17 Completed Universit y of Vaccine Quad ID 00:00:00 [place] [facility] ical [age] YRS Branch Td 2017-02-25 Completed University of 00:00:00 [facility] Branch Td 2017-02-25 Completed University of 00:00:00 [place] [facility] Td 2017-02-25 Completed University of 00:00:00 [facility] Branch Td 2017-02-25 Completed University of 00:00:00 [facility] Branch Td 2017-02-25 Completed University of 00:00:00 [facility] Branch Td 2017-02-25 Completed University of 00:00:00 [facility] Branch Td 2017-02-25 Completed University of 00:00:00 [facility] Branch Td 2017-02-25 Completed University of 00:00:00 [facility] Vital Signs Vital Name Observation Time Observation Value Comments Source HEIGHT 2021-09-08 09:00:00 155 cm WEIGHT 2021-09-08 04:00:00 66.316 kg HEIGHT 2021-09-08 09:00:00 155 cm WEIGHT 2021-09-08 04:00:00 66.316 kg Systolic blood 2021-08-24 03:50:00 122 mm[Hg] Univer sity of pressure [facility] Diastolic blood 2021-08-24 03:50:00 76 mm[Hg] Unive rsity of [facility] Heart rate 2021-08-24 03:50:00 104 /min [facility] Respiratory rate 2021-08-24 03:50:00 28 /min [facility] Oxygen saturation in 2021-08-24 03:50:00 91 /min [facility] Arterial blood by [facility] Pulse oximetry [place] Body temperature 2021-08-24 00:17:00 37.11 Suzy [facility] [place] [facility] weight 2021-08-24 00:17:00 63.504 kg [facility] BMI 2021-08-24 00:17:00 26.45 kg/m2 [facility] Systolic blood 2021-08-23 23:09:00 119 mm[Hg] Univer sity of pressure [facility] Diastolic blood 2021-08-23 23:09:00 72 mm[Hg] Unive rsity of pressure [facility] Heart rate 2021-08-23 23:09:00 98 /min [facility] Body temperature 2021-08-23 23:09:00 36.89 Suzy [facility] [place] [facility] ersity of [place] [facility] [place] Respiratory rate 2021-08-23 23:09:00 22 /min [facility] [place] [facility] ersity of [place] [facility] [place] Body height 2021-08-23 23:09:00 154.9 cm [facility]i [facility] [place] [facility] Body weight 2021-08-23 23:09:00 63.504 kg [facility]i [facility] [place] [facility] [place] BMI 2021-08-23 23:09:00 26.45 kg/m2 [facility]i ty [facility] [place] [facility] [place] Oxygen saturation in 2021-08-23 23:09:00 96 /min University of Arterial blood by [facility] Pulse oximetry Branch Systolic blood 2021-06-30 16:42:00 121 mm[Hg] Univer sity of pressure [place] [facility] [place] Diastolic blood 2021-06-30 16:42:00 84 mm[Hg] [facility] 2021-06-30 16:42:00 92 /min [facility]i ty [facility] [place] [facility] [place] Respiratory rate 2021-06-30 16:42:00 22 /min [facility] [place] [facility] ersity of [place] [facility] [place] Body height 2021-06-30 16:42:00 152.4 cm Universi ty [facility] [place] [facility] [place] Body weight 2021-06-30 16:42:00 65.772 kg [facility]i ty [facility] [place] [facility] BMI 2021-06-30 16:42:00 28.32 kg/m2 [facility]i ty [facility] [place] [facility] [place] Oxygen saturation in 2021-06-30 16:42:00 94 /min University of Arterial blood by [facility] Pulse oximetry Branch Systolic blood 2021-09-15 11:22:00 83 mm[Hg] [facility] Diastolic blood 2021-09-15 11:22:00 59 mm[Hg] [facility] S t [facility] Heart rate 2021-09-15 11:22:00 112 /min [facility] Body temperature 2021-09-15 11:22:00 35.56 Suzy [facility] Respiratory rate 2021-09-15 11:22:00 20 /min [facility] Oxygen saturation in 2021-09-15 11:22:00 94 /min [facility] - Arterial blood by Medical nter Pulse oximetry Body height 2021-09-08 09:00:00 155 cm [facility] Body weight 2021-09-08 04:00:00 66.316 kg [facility] BMI 2021-09-08 04:00:00 27.60 kg/m2 [facility] Procedures Procedure Date / Time Performing Clinician Source Performed HOME HEALTH - OTHER 2021-09-19 06:01:00 [facility]igned, [facility] [place] [facility] & 2021-09-15 04:41:[address] [facility] SARS-COV2/RT-PCR ([facility] & 2021-09-14 16:34:00 Aleja Ríos [facility] CBC W/PLT COUNT & AUTO 2021-09-14 05:32:00 [facility] DIFFERENTIAL [facility] CBC W/PLT COUNT & AUTO 2021-09-14 05:32:00 [facility] DIFFERENTIAL [facility] VANCOMYCIN LEVEL, TROUGH 2021-09-13 13:54:00 [facility] CBC W/PLT COUNT & AUTO 2021-09-13 13:54:00 [facility] DIFFERENTIAL [facility] CBC W/PLT COUNT & AUTO 2021-09-13 13:54:00 [facility] DIFFERENTIAL [facility] ECG 12-LEAD 2021-09-12 17:48:43 Unknown, Hl7 Doctor [facility] ECG 12-LEAD 2021-09-12 17:48:43 Unknown, Hl7 Doctor [facility] VANCOMYCIN LEVEL, TROUGH 2021-09-12 13:07:00 [facility] CBC W/PLT COUNT & AUTO 2021-09-12 13:07:[address] [facility] S t [facility] BASIC METABOLIC PANEL (7) 2021-09-12 13:07:00 Krish I [facility] CBC W/PLT COUNT & AUTO 2021-09-12 13:07:[address] [facility] LACTIC ACID, VENOUS 2021-09-12 13:06:00 [facility] BASIC METABOLIC PANEL (7) 2021-09-11 13:29:00 Krish I [facility] MAGNESIUM 2021-09-11 13:29:00 [facility] VANCOMYCIN LEV[facility], TROUGH 2021-09-10 11:38[facility] 2021-09-10 05:55:00 [facility] W/[facility]T COUNT & AUTO 2021-09-10 03:45:00 [place] [facility] BASIC METABOLIC PANEL (7) 2021-09-10 03:45:00 [place] [facility] CALCIUM, IONIZED 2021-09-10 03:45:00 [place] [facility] PHOSPHORUS 2021-09-10 03:45:00 [place] [facility] CBC W/PLT COUNT & AUTO 2021-09-10 03:45:00 [place] [facility] MAGNESIUM 2021-09-10 03:45:00 [place] [facility] ALBUMIN 2021-09-10 03:45:00 Gabino [facility] VANCOMYCIN LEVEL, TROUGH 2021-09-09 19:17:00 [facility] CBC W/PLT COUNT & AUTO 2021-09-09 03:33:00 [place] [facility] BASIC METABOLIC PANEL (7) 2021-09-09 03:33:00 [facility], ION[facility]ED 2021-09-09 03:33:00 [place] [facility] PHOSPHORUS 2021-09-09 03:33:00 [facility] W/PLT COUNT & AUTO 2021-09-09 03:33:00 [place] [facility] MAGNESIUM 2021-09-09 03:33:00 [facility] TRANSESOPHAGEAL ECHO 2021-09-08 11:20:43 [facility] COLOR-FLOW MAPPING 2021-09-08 06:45:11 [facility] CONT WAVE PULSED DOPPLER 2021-09-08 06:45:11 [facility] BLOOD CULTURE 2021-09-08 00:29:00 [facility] COMPREHENSIVE METABOLIC 2021-09-08 00:28:00 Dal[facility] MAGNESIUM 2021-09-08 00:28:00 [facility] C-REACTIVE PROTEIN 2021-09-08 00:28:00 [facility] LACTIC ACID, VENOUS 2021-09-08 00:28:00 [facility] BLOOD GAS, VENOUS 2021-09-08 00:28:00 [facility] CBC W/PLT COUNT & AUTO 2021-09-08 00:27:00 [facility] BLOOD CULTURE 2021-09-08 00:27:00 [facility] CBC W/PLT COUNT & AUTO 2021-09-08 00:27:[address] [facility] 2021-08-24 01:38:00 Uyen Fields [facility] [place] [facility] XR CHEST 1 VW 2021-08-24 00:38:02 Uyen Fields [facility] [place] [facility] TROPONIN I 2021-08-24 00:36:00 [facility] COMP. METABOLIC PANEL 2021-08-24 00:36:00 Uyen Fields [facility] ([id number]) [facility] CBC WITH DIFF 2021-08-24 00:36:00 [facility] PROTHROMBIN TIME / INR 2021-08-24 00:36:00 [facility]MINAL PRO-BNP 2021-08-24 00:36:00 Uyen Fields [facility] COVID-19 (ID NOW RAPID 2021-08-24 00:36:00 Uyen Fields [facility] TESTING) [facility] NOTICE OF PRIVACY 2021-08-24 00:09:03 Doctor Unassigned, [facility] PRACTICES [place] [facility] CONSENT/REFUSAL FOR 2021-08-24 00:07:01 Doctor Unasswayne, [facility] DIAGNOSIS AND TREATMENT [place] [facility] Plan of Care Planned Activity Planned Date Details Comments Source Future Scheduled 2027-02-25 DTAP/TDAP/TD VACCINES [facility] Test 00:00:00 (2 - Td or Tdap) [code Medic al Center = DTAP/TDAP/TD VACCINES (2 - Td or Tdap)] Future Scheduled 2027-02-25 DTAP/TDAP/TD VACCINES [facility] Test 00:00:00 (2 - Td or Tdap) [code Medic al Center = DTAP/TDAP/TD VACCINES (2 - Td or Tdap)] Future Scheduled 2023-06-[address] [facility] - Test 00:00:00 0-64 YRS (2 of 2 - Medical C enter PPSV23) [code = PNEUMOCOCCAL VACCINE 0-64 YRS (2 of 2 - PPSV23)] Future Scheduled 2023-06-[address] [facility] - Test 00:00:00 0-64 YRS (2 of 2 - Medical C enter PPSV23) [code = PNEUMOCOCCAL VACCINE 0-64 YRS (2 of 2 - PPSV23)] Future Scheduled 2021-09-[address] [facility] - Test 00:00:00 (12+) [code = Medical Center DEPRESSION SCREENING (12+)] Future Scheduled 2021-09-[address] [facility] - Test 00:00:00 (12+) [code = Medical Center DEPRESSION SCREENING (12+)] Future Scheduled 2021-06-02 COVID-19 VACCINE (3 - [facility] Test 00:00:00 Booster for Pfizer Medical C enter series) [code = COVID-19 VACCINE (3 - Booster for Pfizer series)] Future Scheduled 2021-06-02 COVID-19 VACCINE (3 - [facility] - Test 00:00:00 Booster for Pfizer Medical C enter series) [code = COVID-19 VACCINE (3 - Booster for Pfizer series)] Future Scheduled 2021-05-18 INFLUENZA VACCINE (#1) [facility] Test 00:00:00 [code = INFLUENZA Medical Ce nter VACCINE (#1)] Future Scheduled 2021-05-18 INFLUENZA VACCINE (#1) [facility] Test 00:00:00 [code = INFLUENZA Medical Ce nter VACCINE (#1)] Future Scheduled 2007 SHINGLES VACCINES ([address] [facility] - Test 00:00:00 of 2) [code = SHINGLES Medic al Center VACCINES (1 of 2)] Future Scheduled 2007 SHINGLES VACCINES ([address] [facility] - Test 00:00:00 of 2) [code = SHINGLES Medic al Center VACCINES (1 of 2)] Future Scheduled [address] [facility] Test 00:00:00 (procedure) [code = [facility] [id number]] Future Scheduled [address] [facility] Test 00:00:00 (procedure) [code = [facility] [id number]] Future Scheduled 1999-03-[address] [facility] - Test 00:00:00 WELLNESS (YEAR 2 or Medical Center FIRST YEAR if no IPPE) [code = MEDICARE ANNUAL WELLNESS (YEAR 2 or FIRST YEAR if no IPPE)] Future Scheduled 1999-03-[address] [facility] - Test 00:00:00 WELLNESS (YEAR 2 or Medical Center FIRST YEAR if no IPPE) [code = MEDICARE ANNUAL WELLNESS (YEAR 2 or FIRST YEAR if no IPPE)] Future Scheduled [address] [facility] Test 00:00:00 malignant neoplasm of Medica l Center cervix (procedure) [code = 193838689] Future Scheduled [address] [facility] Test 00:00:00 malignant neoplasm of Medica l Center cervix (procedure) [code = 061466305] Future Scheduled 1975 HEPATITIS C SCREENING [facility] Test 00:00:00 [code = HEPATITIS C Medical Center SCREENING] Future Scheduled 1975 HEPATITIS C SCREENING [facility] Test 00:00:00 [code = HEPATITIS C Medical Center SCREENING] Future Scheduled [address] [facility] [facility] Test 00:00:00 malignant neoplasm of Medica l Center breast (procedure) [code = 437991045] Future Scheduled [address] [facility] Test 00:00:00 malignant neoplasm of Medica l Center colon (procedure) [code = 527691272] Future Scheduled [address] [facility] Test 00:00:00 malignant neoplasm of Medica l Center breast (procedure) [code = 343659659] Future Scheduled [address] [facility] Test 00:00:00 malignant neoplasm of Medica l Center colon (procedure) [code = 521866610] Encounters Start End Encounter Admission Attending Care Care Encounter Source Date/Time Date/Time Type Type Clinicians Facility Department ID 2021-07-18 Emergency [facility] [id number] Univers 16:13:03 [facility] 2021-07-16 Emergency [facility] [id number] Univers 02:15:15 [facility] 2022-01-03 2022-01-03 Outpatient Morro HAJI, [facility] [id number] Univers 10:00:00 10:00:00 [facility] [id number] [facility] 2022-01-03 Outpatient R RAISSA [facility] [id number] Univers 10:00:00 10:00:00 JEMMA ity [facility] 2021-12-16 2021-12-16 Outpatient R PUJA FOLEY [facility] [id number] Univers 11:30:00 11:30:00 PUJA FOLEY [id number] i ty [facility] 2021-12-01 2021-12-01 Outpatient R JESS [facility] [id number] Univers 15:00:00 15:00:00 MAUREEN [facility] 2021-12-01 2021-12-01 [id number] Univers 11:20:00 11:20:00 MAUREEN [id number] [facility] 2021-12-01 2021-12-01 [id number] Univers 11:20:00 11:20:00 MAUREEN [facility] 2021-09-19 2021-09-19 Outpatient R [facility] [id number] Univers 00:00:00 [facility]:00:00 [facility] 2021-09-19 2021-09-19 Orders Doctor HILL [id number] Univers 00:00:00 00:00:00 Only Unassigned, LALITA [id number] ity of [place] [facility] [id number] Darci as [id number] [address] 2021-09-07 2021-09-15 Inpatient UR NAKUL RÍOS Cardiology 3 [id number] [facility] 21:52:00 13:08:00 [facility] 2021-09-07 2021-09-15 Hospital UR Sarai Alva [facility] [id number] [facility] 21:52:00 13:08:00 [facility] Aleja R[facility]os 2021-09-12 2021-09-12 [facility] [facility] [id number] 00:00:00 00:00:00 Only [facility] 2021-09-08 2021-09-08 Outpatient [facility] [id number] [facility] [place] 00:00:00 23:59:00 [facility] 2021-08-23 2021-08-24 [facility] [id number] Univers 18:18:00 02:43:00 Uyen DOWLING [id number] i ty [id number] [id number] [facility] [address] 2021-08-24 2021-08-24 Letter SERGIO Antonio [id number] Univers 00:00:00 00:00:00 (Out) Savanah CELIS [id number] it y of [facility] [id number] Darci as [phone] [facility] [address] 2021-08-23 2021-08-23 Urgent [facility] 1.2.840.114 [id number] Univers 17:08:18 17:53:20 Care [facility] [id number] it y of [place] [id number] Darci as CONNIE?BLEA [phone] [address] MEDICAL OFFICE BUILDING 2021-08-23 2021-08-23 Outpatient [place] [facility] [id number] Univers 17:00:00 17:53:20 KYLEE [facility] 2021-08-23 2021-08-23 [facility] ERT [id number] Univers 17:00:00 17:53:20 KYLEE [facility] 2021-08-23 2021-08-23 Outpatient R [facility] [id number] Univers 17:00:00 17:00:00 [id number] ity [facility] 2021-08-23 2021-08-23 Outpatient [place] [facility] [id number] Univers 17:00:00 17:00:00 KYLEE [facility] 2021-08-23 2021-08-23 Telephone [facility] 1.2.840.114 [id number] Univers 00:00:00 00:00:00 Maureen LIANGTON [id number] it[id number] [phone] [address] 2021-08-02 2021-08-02 Outpatient R [facility] [id number] Univers 10:20:00 13:19:18 MAUREEN ity [facility] 2021-08-02 2021-08-02 Telemedici [facility] 1.2.840.114 [id number] Univers 08:30:30 13:19:18 ne Visit Maureen DOWLING [id number] it[id number] [phone] [address] 2021-08-02 2021-08-02 Outpatient R [facility] [id number] Univers 10:20:00 10:20:00 MAUREEN [id number] ity [facility] 2021-07-08 2021-07-08 Refill [facility] 1.2.840.114 [id number] Univers 00:00:00 00:00:00 Maureen Dowling [id number] it[place] of [id number] [phone] [address] 2021-06-30 2021-06-30 Office [facility] 1.2.840.114 [id number] Univers 11:26:48 12:14:06 Visit Puja Dowling [id number] i ty [id number] [phone] [facility] 085 [facility] 2021-06-30 2021-06-30 Outpatient R PUJA FOLEY [facility] [id number] Univers 11:30:00 11:30:00 PUJA FOLEY [id number] i ty of [facility] 2021-06-30 2021-06-30 Outpatient R NIXON FOLEYBud [facility] [id number] Univers 11:30:00 11:30:00 PUJA FOLEY i ty of [facility] 2021-06-24 2021-06-24 Outpatient R NIXON FOLEYBud [facility] [id number] Univers 13:20:00 13:20:00 PUJA FOLEY [id number] i ty of [facility] 2021-06-24 2021-06-24 Outpatient R NIXON FOLEYBud [facility] [id number] Univers 13:20:00 13:20:00 PUJA FOLEY i ty of [facility] 2021-06-17 2021-06-17 Outpatient R KANNANFRIDALULÚ [facility] [id number] Univers 15:20:00 15:20:00 JESSICA [id number] ity [facility] 2021-06-17 2021-06-17 Outpatient R GLADYS [facility] [id number] Univers 15:20:00 15:20:00 JESSICA [facility] 2021-05-26 2021-05-26 Outpatient R MERCADO [facility] [id number] Univers 14:00:00 14:00:00 MAUREEN [id number] [facility] 2021-05-26 2021-05-26 Outpatient R MERCADO, [facility] [id number] Univers 14:00:00 14:00:00 MAUREEN [facility] 2021-05-20 2021-05-20 Outpatient JESS [facility] [id number] Univers 13:40:00 13:40:00 MAUREEN [id number] [facility] 2021-05-20 2021-05-20 Outpatient R JESS [facility] [id number] Univers 13:40:00 13:40:00 MAUREEN [facility] 2021-05-06 2021-05-06 Outpatient R JESS [facility] [id number] Univers 10:40:00 10:40:00 MAUREEN [id number] [facility] 2021-05-06 2021-05-06 Outpatient R JESS [facility] [id number] Univers 10:40:00 10:40:00 MAUREEN [facility] 2021-04-28 2021-04-28 [facility] [id number] 09:07:52 14:36:33 Visit Maureen Dowling [id number] [place] [id number] Pranav [phone] [facility] 231 [facility] 2021-04-28 2021-04-28 Outpatient R JESS [facility] [id number] Univers 09:20:00 09:20:00 MAUREEN [id number] [facility] 2021-04-28 2021-04-28 Outpatient R JESS [facility] [id number] Univers 09:20:00 09:20:00 MAUREEN [facility] 2021-01-11 2021-01-11 Outpatient R ADUM, [facility] [id number] Univers 12:00:00 12:00:00 JEMMA [id number] [facility] 2021-01-11 2021-01-11 Outpatient R ADUM, [facility] [id number] Univers 00:00:00 00:00:00 JEMMA [facility] 2020-12-28 2020-12-28 Outpatient R ADUM, [facility] [id number] Univers 15:30:00 15:30:00 JEMMA [id number] [facility] 2020-12-28 2020-12-28 Outpatient R ADUM [facility] [id number] Univers 15:30:00 15:30:00 JEMMA [facility] 2020-12-23 2020-12-23 Outpatient R PUJA FOLEY [facility] [id number] Univers 13:30:00 13:30:00 PUJA FOLEY [id number] i [facility] 2020-12-23 2020-12-23 Outpatient R PUJA FOLEY [facility] [id number] Univers 13:30:00 13:30:00 PUJA FOLEY i ty of [facility] 2020-12-21 2020-12-21 Outpatient R EVELYN [facility] [id number] Univers 13:00:00 13:00:00 MELANIE [id number] ity o f [facility] 2020-12-21 2020-12-21 Outpatient R EVELYN [facility] RAD [id number] Univers 00:00:00 00:00:00 MELANIE ity o [facility] 2020-12-09 2020-12-09 Outpatient R PUJA FOLEY [facility] [id number] Univers 14:00:00 14:00:00 PUJA FOLEY [id number] i ty of [facility] 2020-12-09 2020-12-09 Outpatient R PUJA FOLEY [facility] [id number] Univers 14:00:00 14:00:00 PUJA FOLEY i ty of [facility] 2020-11-30 2020-11-30 Outpatient R LINDA [facility] [id number] Univers 11:10:00 11:10:00 YARELY [id number] [facility] 2020-11-30 2020-11-30 Outpatient R LINDA [facility] [id number] Univers 11:10:00 11:10:00 YARELY [facility] 2020-11-23 2020-11-23 Outpatient EVELYN [facility] [id number] Univers 10:00:00 10:00:00 MELANIE [id number] ity o [facility] 2020-11-18 2020-11-18 Outpatient R EVELYN, [facility] [id number] Univers 14:00:00 14:00:00 MELANIE kevin o [facility] 2020-11-18 2020-11-18 Outpatient R JESS [facility] [id number] Univers 10:40:00 10:40:00 MAUREEN Vallecillo304 [facility] 2020-11-18 2020-11-18 Outpatient R JESS [facility] [id number] Univers 10:40:00 10:40:00 [facility] 2020-11-15 2020-11-15 Outpatient R EVELYN [facility] [id number] Univers 13:00:00 13:00:00 MELANIEVICKIE Mcbride itbritt o dana [facility] 2020-11-15 2020-11-15 Outpatient R EVELYN [facility] [id number] Univers 13:00:00 13:00:00 MELANIE brown o f [facility] 2020-11-09 2020-11-09 Outpatient [facility] [id number] Univers 11:10:00 11:10:00 [id number] [facility] 2020-11-09 2020-11-09 Outpatient R LINDA, [facility] [id number] Univers 11:10:00 11:10:00 YARELY [facility] 2020-11-04 2020-11-04 Outpatient R PUJA FOLEY [facility] [id number] Univers 11:20:00 11:20:00 PUJA FOLEY [id number] i ty of [facility] 2020-11-04 2020-11-04 Outpatient R PUJA FOLEY [facility] [id number] Univers 11:20:00 11:20:00 PUJA FOLEY i ty of [facility] 2020-10-13 2020-10-13 Outpatient R [facility] [id number] Univers 14:00:00 14:00:00 [id number] [facility] 2020-10-13 2020-10-13 Outpatient R [facility] [id number] Univers 14:00:00 14:00:00 [facility] 2020-09-16 2020-09-16 Outpatient R JESS [facility] [id number] Univers 00:00:00 00:00:00 MAUREEN [id number] [facility] 2020-09-16 2020-09-16 Outpatient R JESS [facility] [id number] Univers 00:00:00 00:00:00 MAUREEN [facility] 2020-08-19 2020-08-19 Outpatient R JESS [facility] [id number] Univers 10:20:00 10:20:00 MAUREEN ity [facility] 2020-08-19 2020-08-19 Outpatient R JESS [facility] [id number] Univers 10:20:00 10:20:00 MAUREEN ity of [facility] 2020-05-06 2020-05-06 Outpatient [facility] [id number] Univers 12:30:00 12:30:00 ity of [facility] 2020-05-06 2020-05-06 Outpatient R JUAN FRANCISCO [facility] [id number] Univers 12:30:00 12:30:00 JOLENE ity [facility] 2020-05-03 2020-05-03 Outpatient R [facility] [id number] Univers 11:15:00 11:15:00 [id number] ity [facility] 2020-05-03 2020-05-03 Outpatient R JUAN FRANCISCO [facility] [id number] Univers 11:15:00 11:15:00 JOLENE ity [facility] 2020-04-29 2020-04-29 Outpatient R PUJA FOLEY [facility] [id number] Univers 15:20:00 15:20:00 PUJA FOLEY [id number] i ty of [facility] 2020-04-29 2020-04-29 Outpatient R PUJA FOLEY [facility] [id number] Univers 15:20:00 15:20:00 PUJA FOLEY i ty of [facility] 2020-04-12 2020-04-12 Outpatient R JESS [facility] [id number] Univers 14:40:00 14:40:00 MAUREEN ity [facility] 2020-04-12 2020-04-12 Outpatient R MERCADO, [facility] [id number] Univers 10:40:00 10:40:00 MAUREEN [id number] ity [facility] 2020-03-08 2020-03-08 Outpatient R JESS [facility] [id number] Univers 15:40:00 15:40:00 [facility] [id number] [facility] 2020-03-08 2020-03-08 Outpatient R MERCADO [facility] [id number] Univers 15:40:00 15:40:00 MAUREEN [facility] 2020-02-26 2020-02-26 Outpatient Morro MERCADO [facility] [id number] Univers 10:00:00 10:00:00 MAUREEN [facility] 2020-01-12 2020-01-12 Outpatient Morro MERCADO [facility] [id number] Univers 09:40:00 09:40:00 MAUREEN [id number] [facility] 2020-01-12 2020-01-12 Outpatient Morro MERCADO [facility] [id number] Univers 09:40:00 09:40:00 MAUREEN [facility] 2019-12-23 2019-12-23 Outpatient Morro MERCADO [facility] [id number] Univers 10:20:00 10:20:00 MAUREEN [facility] 2019-12-01 2019-12-01 Outpatient oMrro DEJUAN JADE [facility] [id number] Univers 13:40:00 13:40:00 DEJUAN JADE [id number] [facility] 2019-12-01 2019-12-01 Outpatient Morro DEJUAN JADE [facility] [id number] Univers 13:40:00 13:40:00 DEJUAN JADE [facility] 2019-08-17 2019-08-21 Inpatient ANYI [facility] [id number] Univers 16:40:37 18:12:00 [facility] Results Test Description Test Time Test Comments Results Result Comments Source SARS-CoV2/RT-PCR (Asymptomatic ONLY) 2021-09-15 16:14:42 Test Item Value Reference Range Interpretation Comme nts SARS-COV2/RT-PCR (test code = Negative Negative 55766-8) JUANIS (test code = JUANIS) Negative result for this test determines that SARS-CoV-2 RNA was not present in the specimen above the Limit of Detection (LOD). However, Negative results do not preclude SARS-CoV-2 infection and should not be used as the sole basis for treatment or patient management decisions. Negative results must be combined with clinical observations, patient history, and epidemiological information. A false negative result may occur if a specimen is improperly collected, transported, or handled. A false negative result should be considered if patient's recent exposures or clinical presentation indicate that COVID-19 (SARS-CoV-2) is likely and diagnostic tests for other causes of illness are negative. Re-testing should be considered in cases of suspected false negatives. The limit of detection for this assay is 100 copies/mL. This SARS-CoV-2 test is a real-time RT_PCR test intended for the qualitative detection of nucleic acid from SARS-CoV-2 in a nasopharyngeal swab specimen collected from individuals suspected of COVID-19 by their healthcare provider. This test has not been Food and Drug Administration (FDA) cleared or approved. This is a modified version of an approved Emergency Use Authorization (EUA) and is in the process of review by the FDA. Once authorized by the FDA, the issued EUA will be effective until the declaration that circumstances exist justifying the authorization of the emergency use of in vitro diagnostic tests for detection and/or diagnosis of COVID-19 is terminated under Section 564(b)(2) of the Act or the EUA is revoked under Section 564(g) of the Act. Testing was performed using the Hernandez SARS-CoV-2 assay. Fact Sheet for Healthcare Providers:https://www.[employer]Med[employer].Leetchi kareem/schuyler/RT SARS-CoV-2 HCP Fact Sheet 51-906396.pdf Fact Sheet for Healthcare Patients:https://www.BioMed[employer].Leetchio tt/schuyler/RT SARS-CoV-2 Patient Fact Sheet EN 51-990965U1.pdf Lab Interpretation (test code = Normal 87007-9) [facility]15 16:14:42 Test Item Value Reference Range Interpretation Comments SARS-COV2/RT-PCR (test Negative Negative code = 57685-3) JUANIS (test code = JUANIS) Negative result for this test determines that SARS-CoV-2 RNA was not present in the specimen above the Limit of Detection (LOD). However, Negative results do not preclude SARS-CoV-2 infection and should not be used as the sole basis for treatment or patient management decisions. Negative results must be combined with clinical observations, patient history, and epidemiological information. A false negative result may occur if a specimen is improperly collected, transported, or handled. A false negative result should be considered if patient's recent exposures or clinical presentation indicate that COVID-19 (SARS-CoV-2) is likely and diagnostic tests for other causes of illness are negative. Re-testing should be considered in cases of suspected false negatives. The limit of detection for this assay is 100 copies/mL. This SARS-CoV-2 test is a real-time RT_PCR test intended for the qualitative detection of nucleic acid from SARS-CoV-2 in a nasopharyngeal swab specimen collected from individuals suspected of COVID-19 by their healthcare provider. This test has not been Food and Drug Administration (FDA) cleared or approved. This is a modified version of an approved Emergency Use Authorization (EUA) and is in the process of review by the FDA. Once authorized by the FDA, the issued EUA will be effective until the declaration that circumstances exist justifying the authorization of the emergency use of in vitro diagnostic tests for detection and/or diagnosis of COVID-19 is terminated under Section 564(b)(2) of the Act or the EUA is revoked under Section 564(g) of the Act. Testing was performed using the Hernandez SARS-CoV-2 assay. Fact Sheet for Healthcare Providers:https://www.toney santoshernandez/schuyler/RT SARS-CoV-2 HCP Fact Sheet 51-695892.pdf Fact Sheet for Healthcare Patients:https://www.juan lawson.[employer]/schuyler/RT SARS-CoV-2 Patient Fact Sheet EN 51-357781V6.pdf Lab Interpretation Normal (test code = 10176-9) [facility]2021-09-15 16:14:42 Test Item Value Reference Range Interpretation Comments SARS-COV2/RT-PCR (test code = Negative Negative [id number]) Negative result for this test determines that SARS-CoV-2 RNA was not present in the specimen above the Limit of Detection (LOD). However, Negative results do not preclude SARS-CoV-2 infection and should not be used as the sole basis for treatment or patient management decisions. Negative results must be combined with clinical observations, patient history, and epidemiological information. A false negative result may occur if a specimen is improperly collected, transported, or handled. A false negative result should be considered if patient's recent exposures or clinical presentation indicate that COVID-19 (SARS-CoV-2) is likely and diagnostic tests for other causes of illness are negative. Re-testing should be considered in cases of suspected false negatives.The limit of detection for this assay is 100 copies/mL.This SARS-CoV-2 test is a real-time RT_PCR test intended for the qualitative detection of nucleic acid from SARS-CoV-2 in a nasopharyngeal swab specimen collected from individuals suspected of COVID-19 by their healthcare provider.This test has not been Food and Drug Administration (FDA) cleared or approved. This is a modified version of an approved Emergency Use Authorization (EUA) and is in the process of review by the FDA. Once authorized by the FDA, the issued EUA will be e ffective until the declaration that circumstances exist justifying the authorization of the emergency use of in vitro diagnostic tests for detection and/or diagnosis of COVID-19 is terminated under Section 564(b)(2) of the Act or the EUA is revoked under Section 564(g) of the Act.Testing was performedusing the Hernandez SARS-CoV-2 assay.Fact Sheet for Healthcare Providers:https://www.[employer]Med[employer]/schuyler/RT SARS-CoV-2 HCP Fact Sheet 51- 889467.pdfFact Sheet for Healthcare Patients:https://www.[employer]Med[employer]/schuyler/RT SARS-CoV-2 Patient Fact Sheet EN 51-497338R3.pdfSARS-COV2/RT-PCR ([facility])2021-09-15 11:07:01 Test Item Value Reference Range Interpretation Comments SARS-COV2/RT-PCR (test code = Negative Negative [id number]) Negative result for this test determines that SARS-CoV-2 RNA was not present in the specimen above the Limit of Detection (LOD). However, Negative results do not preclude SARS-CoV-2 infection and should not be used as the sole basis for treatment or patient management decisions. Negative results must be combined with clinical observations, patient history, and epidemiological information. A false negative result may occur if a specimen is improperly collected, transported, or handled. A false negative result should be considered if patient's recent exposures or clinical presentation indicate that COVID-19 (SARS-CoV-2) is likely and diagnostic tests for other causes of illness are negative. Re-testing should be considered in cases of suspected false negatives.The limit of detection for this assay is 100 copies/mL.This SARS-CoV-2 test is a real-time RT_PCR test intended for the qualitative detection of nucleic acid from SARS-CoV-2 in a nasopharyngeal swab specimen collected from individuals suspected of COVID-19 by their healthcare provider.This test has not been Food and Drug Administration (FDA) cleared or approved. This is a modified version of an approved Emergency Use Authorization (EUA) and is in the process of review by the FDA. Once authorized by the FDA, the issued EUA will be e ffective until the declaration that circumstances exist justifying the authorization of the emergency use of in vitro diagnostic tests for detection and/or diagnosis of COVID-19 is terminated under Section 564(b)(2) of the Act or the EUA is revoked under Section 564(g) of the Act.Testing was performedusing the Hernandez SARS-CoV-2 assay.Fact Sheet for Healthcare Providers:https://www.molecular.[employer]/schuyler/RT SARS-CoV-2 HCP Fact Sheet 51- 015644.pdfFact Sheet for Healthcare Patients:https://www.BioMedFlex.hernandez/schuyler/RT SARS-CoV-2 Patient Fact Sheet EN 51-991439C7.pdfCBC with platelet count + automated [id number] 06:22:16 Test Item Value Reference Range Interpretation Comments WBC (test code = 6690-2) 13.2 See_Comment H [A utomated message] The system [employer] generated this result transmitted ref erence range: 3.5 - 10 .5 K/L. The refe rence range was not u sed to interpret this result as normal/abnor mal. RBC (test code = 789-8) 3.59 See_Comment L [Au tomated message] The system [employer] generated this result transmitted ref erence range: 3.93 - 5 .22 M/L. The refe rence range was not u sed to interpret this result as normal/abnor mal. MCHC (test code = 786-4) 33.0 See_Comment L [A utomated message] The system [employer] generated this result transmitted ref erence range: 32.2 - 3 5.5 GM/DL. The refe rence range was not u sed to interpret this result as normal/abnor mal. Hematocrit (test code = 30.3 % 34.1-44.9 L 4544-3) MCV (test code = 787-2) 84.4 fL 79.4-94.8 MCH (test code = 785-6) 27.9 pg 25.6-32.2 RDW (test code = 788-0) 14.6 % 11.7-14.4 H Platelets (test code = 369 See_Comment [Aut omated message] 777-3) The system [employer] generated this result transmitted ref erence range: 150 - 45 0 K/CU MM. The referen ce range was not u sed to interpret this result as normal/abnor mal. MPV (test code = 9.8 fL 9.4-12.3 19176-4) nRBC (test code = 413) 0 See_Comment [Aut omated message] The system [employer] generated this result transmitted ref erence range: 0 - 0 /1 00 WBC. The refere nce range was not u sed to interpret this result as normal/abnor mal. % Neutros (test code = 59 % 429) % Lymphs (test code = 28 % 430) % Monos (test code = 8 % 431) % Eos (test code = 432) 3 % % Baso (test code = 437) 0 % # Neutros (test code = 7.85 See_Comment H [Aut omated message] 670) The system [employer] generated this result transmitted ref erence range: 1.56 - 6 .13 K/L. The refe rence range was not u sed to interpret this result as normal/abnor mal. # Lymphs (test code = 3.72 See_Comment [Auto mated message] 414) The system [employer] generated this result transmitted ref erence range: 1.18 - 3 .74 K/L. The refe rence range was not u sed to interpret this result as normal/abnor mal. # Monos (test code = 1.11 See_Comment H [Autom ated message] 415) The system [employer] generated this result transmitted ref erence range: 0.24 - 0 .36 K/L. The refe rence range was not u sed to interpret this result as normal/abnor mal. # Eos (test code = 416) 0.33 See_Comment [Au tomated message] The system [employer] generated this result transmitted ref erence range: 0.04 - 0 .36 K/L. The refe rence range was not u sed to interpret this result as normal/abnor mal. # Baso (test code = 417) 0.04 See_Comment [A utomated message] The system [employer] generated this result transmitted ref erence range: 0.01 - 0 .08 K/L. The refe rence range was not u sed to interpret this result as normal/abnor mal. Immature 1 % 0-1 Granulocytes-Relative (test code = 2801) Lab Interpretation (test Abnormal code = 22708-3) [facility] with platelet count + automated [id number] 06:22:16 Test Item Value Reference Range Interpretation Comments WBC (test code = 6690-2) 13.2 See_Comment H [A utomated message] The system [employer] generated this result transmitted ref erence range: 3.5 - 10 .5 K/L. The refe rence range was not u sed to interpret this result as normal/abnor mal. RBC (test code = 789-8) 3.59 See_Comment L [Au tomated message] The system [employer] generated this result transmitted ref erence range: 3.93 - 5 .22 M/L. The refe rence range was not u sed to interpret this result as normal/abnor mal. MCHC (test code = 786-4) 33.0 See_Comment L [A utomated message] The system [employer] generated this result transmitted ref erence range: 32.2 - 3 5.5 GM/DL. The refe rence range was not u sed to interpret this result as normal/abnor mal. Hematocrit (test code = 30.3 % 34.1-44.9 L 4544-3) MCV (test code = 787-2) 84.4 fL 79.4-94.8 MCH (test code = 785-6) 27.9 pg 25.6-32.2 RDW (test code = 788-0) 14.6 % 11.7-14.4 H Platelets (test code = 369 See_Comment [Aut omated message] 777-3) The system [employer] generated this result transmitted ref erence range: 150 - 45 0 K/CU MM. The referen ce range was not u sed to interpret this result as normal/abnor mal. MPV (test code = 9.8 fL 9.4-12.3 54437-4) nRBC (test code = 413) 0 See_Comment [Aut omated message] The system [employer] generated this result transmitted ref erence range: 0 - 0 /1 00 WBC. The refere nce range was not u sed to interpret this result as normal/abnor mal. % Neutros (test code = 59 % 429) % Lymphs (test code = 28 % 430) % Monos (test code = 8 % 431) % Eos (test code = 432) 3 % % Baso (test code = 437) 0 % # Neutros (test code = 7.85 See_Comment H [Aut omated message] 670) The system [employer] generated this result transmitted ref erence range: 1.56 - 6 .13 K/L. The refe rence range was not u sed to interpret this result as normal/abnor mal. # Lymphs (test code = 3.72 See_Comment [Auto mated message] 414) The system [employer] generated this result transmitted ref erence range: 1.18 - 3 .74 K/L. The refe rence range was not u sed to interpret this result as normal/abnor mal. # Monos (test code = 1.11 See_Comment H [Autom ated message] 415) The system [employer] generated this result transmitted ref erence range: 0.24 - 0 .36 K/L. The refe rence range was not u sed to interpret this result as normal/abnor mal. # Eos (test code = 416) 0.33 See_Comment [Au tomated message] The system [employer] generated this result transmitted ref erence range: 0.04 - 0 .36 K/L. The refe rence range was not u sed to interpret this result as normal/abnor mal. # Baso (test code = 417) 0.04 See_Comment [A utomated message] The system [employer] generated this result transmitted ref erence range: 0.01 - 0 .08 K/L. The refe rence range was not u sed to interpret this result as normal/abnor mal. Immature 1 % 0-1 Granulocytes-Relative (test code = 2801) Lab Interpretation (test Abnormal code = 50265-2) [facility] W/PLT COUNT & AUTO [id number] 06:22:16 Test Item Value Reference Range Interpretation Comments WHITE BLOOD CELL COUNT (BEAKER) 13.2 K/ L 3.5-10.5 H (test code = 775) RED BLOOD CELL COUNT (BEAKER) 3.59 M/ L 3.93-5.22 L (test code = 761) HEMOGLOBIN (BEAKER) (test code = 10.0 GM/DL 11.2-15.7 L 410) HEMATOCRIT (BEAKER) (test code = 30.3 % 34.1-44.9 L 411) MEAN CORPUSCULAR VOLUME (BEAKER) 84.4 fL 79.4-94.8 (test code = 753) MEAN CORPUSCULAR HEMOGLOBIN 27.9 pg 25.6-32.2 (BEAKER) (test code = 751) MEAN CORPUSCULAR HEMOGLOBIN CONC 33.0 GM/DL 32.2-35.5 (BEAKER) (test code = 752) RED CELL DISTRIBUTION WIDTH 14.6 % 11.7-14.4 H (BEAKER) (test code = 412) PLATELET COUNT (BEAKER) (test 369 K/CU MM 150-450 code = 756) MEAN PLATELET VOLUME (BEAKER) 9.8 fL 9.4-12.3 (test code = 754) NUCLEATED RED BLOOD CELLS 0 /100 WBC 0-0 (BEAKER) (test code = 413) NEUTROPHILS RELATIVE PERCENT 59 % (BEAKER) (test code = 429) LYMPHOCYTES RELATIVE PERCENT 28 % (BEAKER) (test code = 430) MONOCYTES RELATIVE PERCENT 8 % (BEAKER) (test code = 431) EOSINOPHILS RELATIVE PERCENT 3 % (BEAKER) (test code = 432) BASOPHILS RELATIVE PERCENT 0 % (BEAKER) (test code = 437) NEUTROPHILS ABSOLUTE COUNT 7.85 K/ L 1.56-6.13 H (BEAKER) (test code = 670) LYMPHOCYTES ABSOLUTE COUNT 3.72 K/ L 1.18-3.74 (BEAKER) (test code = 414) MONOCYTES ABSOLUTE COUNT (BEAKER) 1.11 K/ L 0.24-0.36 H (test code = 415) EOSINOPHILS ABSOLUTE COUNT 0.33 K/ L 0.04-0.36 (BEAKER) (test code = 416) BASOPHILS ABSOLUTE COUNT (BEAKER) 0.04 K/ L 0.01-0.08 (test code = 417) IMMATURE GRANULOCYTES-RELATIVE 1 % 0-1 PERCENT (BEAKER) (test code = 2801) Vancomycin level, [id number] 14:18:34 Test Item Value Reference Range Interpretation Comments Vancomycin Tr (test code = 8.4 ug/mL 10.0-20.0 L 4092-3) JUANIS (test code = JUANIS) Business Analysis Consultant ID - PIAYA L Lab Interpretation (test Abnormal code = 07697-8) [facility], [id number] 14:18:34 Test Item Value Reference Range Interpretation Comments Vancomycin Tr (test code = 8.4 ug/mL 10.0-20.0 L 4092-3) JUANIS (test code = JUANIS) Business Analysis Consultant ID - PIAYA L Lab Interpretation (test Abnormal code = 33741-2) [facility]VANCOMYCIN LEVEL, [id number] 14:18:34 Test Item Value Reference Range Interpretation Comments VANCOMYCIN TROUGH (BEAKER) (test 8.4 ug/mL 10.0-20.0 L code = 522) Business Analysis Consultant ID - DEANGELO LCBC W/PLT COUNT & AUTO [id number] 14:05:32 Test Item Value Reference Range Interpretation Comments WHITE BLOOD CELL COUNT (BEAKER) 16.4 K/ L 3.5-10.5 H (test code = 775) RED BLOOD CELL COUNT (BEAKER) 3.87 M/ L 3.93-5.22 L (test code = 761) HEMOGLOBIN (BEAKER) (test code = 10.7 GM/DL 11.2-15.7 L 410) HEMATOCRIT (BEAKER) (test code = 33.0 % 34.1-44.9 L 411) MEAN CORPUSCULAR VOLUME (BEAKER) 85.3 fL 79.4-94.8 (test code = 753) MEAN CORPUSCULAR HEMOGLOBIN 27.6 pg 25.6-32.2 (BEAKER) (test code = 751) MEAN CORPUSCULAR HEMOGLOBIN CONC 32.4 GM/DL 32.2-35.5 (BEAKER) (test code = 752) RED CELL DISTRIBUTION WIDTH 14.5 % 11.7-14.4 H (BEAKER) (test code = 412) PLATELET COUNT (BEAKER) (test 369 K/CU MM 150-450 code = 756) MEAN PLATELET VOLUME (BEAKER) 9.6 fL 9.4-12.3 (test code = 754) NUCLEATED RED BLOOD CELLS 0 /100 WBC 0-0 (BEAKER) (test code = 413) NEUTROPHILS RELATIVE PERCENT 91 % (BEAKER) (test code = 429) LYMPHOCYTES RELATIVE PERCENT 5 % (BEAKER) (test code = 430) MONOCYTES RELATIVE PERCENT 2 % (BEAKER) (test code = 431) EOSINOPHILS RELATIVE PERCENT 0 % (BEAKER) (test code = 432) BASOPHILS RELATIVE PERCENT 0 % (BEAKER) (test code = 437) NEUTROPHILS ABSOLUTE COUNT 14.94 K/ L 1.56-6.13 H (BEAKER) (test code = 670) LYMPHOCYTES ABSOLUTE COUNT 0.83 K/ L 1.18-3.74 L (BEAKER) (test code = 414) MONOCYTES ABSOLUTE COUNT (BEAKER) 0.31 K/ L 0.24-0.36 (test code = 415) EOSINOPHILS ABSOLUTE COUNT 0.06 K/ L 0.04-0.36 (BEAKER) (test code = 416) BASOPHILS ABSOLUTE COUNT (BEAKER) 0.04 K/ L 0.01-0.08 (test code = 417) IMMATURE GRANULOCYTES-RELATIVE 2 % 0-1 H PERCENT (BEAKER) (test code = 2801) Blood Culture - Routine (Right Venipuncture)2021-09-13 02:00:53 Test Item Value Reference Range Interpretation Comments Result (test code = No growth in 5 days 6463-4) [facility] - [facility] (Right Venipuncture) 2021-09-13 02:00:53 Test Item Value Reference Range Interpretation Comments Result (test code = No growth in 5 days 6463-4) [facility] CampusBLOOD [id number] 02:00:53 Test Item Value Reference Range Interpretation Comments CULTURE (BEAKER) (test No growth in 5 days code = 1095) BLOOD [id number] 02:00:52 Test Item Value Reference Range Interpretation Comments CULTURE (BEAKER) (test No growth in 5 days code = 1095) Transesophageal [id number] 18:48:24Ejection FractionSLEH ECHO [facility]LAB [facility]Transesophageal [id number] 18:48:24Ejection FractionSLEH ECHO HEARTLAB [facility]ingtonVANCOMYCIN LEVEL, [id number] 13:59:47 Test Item Value Reference Range Interpretation Comments VANCOMYCIN TROUGH (BEAKER) (test 8.4 ug/mL 10.0-20.0 L code = 522) Business Analysis Consultant ID - DBLactic acid, [id number] 13:58:08 Test Item Value Reference Range Interpretation Comments Lactate, Venous (test code = 1.96 mmol/L 0.50-2.20 2872) JUANIS (test code = JUANIS) Business Analysis Consultant ID - DB Lab Interpretation (test Normal code = 17786-1) [facility] CampusLactic acid, [id number] 13:58:08 Test Item Value Reference Range Interpretation Comments Lactate, Venous (test code = 1.96 mmol/L 0.50-2.20 2872) JUANIS (test code = JUANIS) Business Analysis Consultant ID - DB Lab Interpretation (test Normal code = 41252-9) [facility] CampusLACTIC ACID, [id number] 13:58:08 Test Item Value Reference Range Interpretation Comments LACTATE BLOOD VENOUS (2) (BEAKER) 1.96 mmol/L 0.50-2.20 (test code = 2872) Business Analysis Consultant ID - DBBasic Metabolic [id number] 13:56:06 Test Item Value Reference Range Interpretation Comments Sodium (test code = 134 meq/L 136-145 L 2951-2) Potassium (test code = 4.3 meq/L 3.5-5.1 2823-3) Chloride (test code = 99 meq/L 98-107 2074-0) CO2 (test code = 25 meq/L -29 2027-9) BUN (test code = 18 mg/dL 7- 3094-0) Creatinine (test code 0.76 mg/dL 0.57-1.25 = 2160-0) Glucose (test code = 118 mg/dL 70-105 H 2345-7) Calcium (test code = 8.7 mg/dL 8.4-10.2 39660-4) EGFR (test code = 77 mL/min/1.73 [place] [address]-1) NOT ACCURATE CREATININE CLEARANCE IN PREDICTING GLOMERULAR FILTRATION RATE . ESTIMATED GFR I S NOT APPLICABLE FOR DIALYSIS PATIENTS. JUANIS (test code = JUANIS) Business Analysis Consultant ID - DB Lab Interpretation Abnormal (test code = 02398-9) [facility] Metabolic [id number] 13:56:06 Test Item Value Reference Range Interpretation Comments Sodium (test code = 134 meq/L 136-145 L 2951-2) Potassium (test code = 4.3 meq/L 3.5-5.1 2823-3) Chloride (test code = 99 meq/L 98-107 5-0) CO2 (test code = 25 meq/L -29 8-9) BUN (test code = 18 mg/dL 7- 3094-0) Creatinine (test code 0.76 mg/dL 0.57-1.25 = 2160-0) Glucose (test code = 118 mg/dL 70-105 H 2345-7) Calcium (test code = 8.7 mg/dL 8.4-10.2 97681-1) EGFR (test code = 77 mL/min/1.73 [place] [address]-8) NOT ACCURATE CREATININE CLEARANCE IN PREDICTING GLOMERULAR FILTRATION RATE . ESTIMATED GFR I S NOT APPLICABLE FOR DIALYSIS PATIENTS. JUANIS (test code = JUANIS) Business Analysis Consultant ID - DB Lab Interpretation Abnormal (test code = 70402-9) [facility] METABOLIC [id number] 13:56:06 Test Item Value Reference Range Interpretation Comments SODIUM (BEAKER) 134 meq/L 136-145 L (test code = 381) POTASSIUM (BEAKER) 4.3 meq/L 3.5-5.1 (test code = 379) CHLORIDE (BEAKER) 99 meq/L 98-107 (test code = 382) CO2 (BEAKER) (test 25 meq/L 22-29 code = 355) BLOOD UREA NITROGEN 18 mg/dL 7-21 (BEAKER) (test code = 354) CREATININE (BEAKER) 0.76 mg/dL 0.57-1.25 (test code = 358) GLUCOSE RANDOM 118 mg/dL 70-105 H (BEAKER) (test code = 652) CALCIUM (BEAKER) 8.7 mg/dL 8.4-10.2 (test code = 697) EGFR (BEAKER) (test 77 mL/min/1.73 ESTIMA VERONICA GFR IS code = 1092) sq m NOT ACCURATE CREATININE CLEARANCE IN PREDICTING GLOMERULAR FILTRATION RATE . ESTIMATED GFR I S NOT APPLICABLE FOR DIALYSIS PATIEN TS. Business Analysis Consultant ID - DBCBC W/PLT COUNT & AUTO [id number] 13:21:48 Test Item Value Reference Range Interpretation Comments WHITE BLOOD CELL COUNT (BEAKER) 18.3 K/ L 3.5-10.5 H (test code = 775) RED BLOOD CELL COUNT (BEAKER) 4.02 M/ L 3.93-5.22 (test code = 761) HEMOGLOBIN (BEAKER) (test code = 11.4 GM/DL 11.2-15.7 410) HEMATOCRIT (BEAKER) (test code = 33.9 % 34.1-44.9 L 411) MEAN CORPUSCULAR VOLUME (BEAKER) 84.3 fL 79.4-94.8 (test code = 753) MEAN CORPUSCULAR HEMOGLOBIN 28.4 pg 25.6-32.2 (BEAKER) (test code = 751) MEAN CORPUSCULAR HEMOGLOBIN CONC 33.6 GM/DL 32.2-35.5 (BEAKER) (test code = 752) RED CELL DISTRIBUTION WIDTH 14.5 % 11.7-14.4 H (BEAKER) (test code = 412) PLATELET COUNT (BEAKER) (test 408 K/CU MM 150-450 code = 756) MEAN PLATELET VOLUME (BEAKER) 9.7 fL 9.4-12.3 (test code = 754) NUCLEATED RED BLOOD CELLS 0 /100 WBC 0-0 (BEAKER) (test code = 413) NEUTROPHILS RELATIVE PERCENT 90 % (BEAKER) (test code = 429) LYMPHOCYTES RELATIVE PERCENT 6 % (BEAKER) (test code = 430) MONOCYTES RELATIVE PERCENT 2 % (BEAKER) (test code = 431) EOSINOPHILS RELATIVE PERCENT 1 % (BEAKER) (test code = 432) BASOPHILS RELATIVE PERCENT 0 % (BEAKER) (test code = 437) NEUTROPHILS ABSOLUTE COUNT 16.50 K/ L 1.56-6.13 H (BEAKER) (test code = 670) LYMPHOCYTES ABSOLUTE COUNT 1.00 K/ L 1.18-3.74 L (BEAKER) (test code = 414) MONOCYTES ABSOLUTE COUNT (BEAKER) 0.39 K/ L 0.24-0.36 H (test code = 415) EOSINOPHILS ABSOLUTE COUNT 0.09 K/ L 0.04-0.36 (BEAKER) (test code = 416) BASOPHILS ABSOLUTE COUNT (BEAKER) 0.03 K/ L 0.01-0.08 (test code = 417) IMMATURE GRANULOCYTES-RELATIVE 1 % 0-1 PERCENT (BEAKER) (test code = 2801) BASIC METABOLIC [id number] 14:26:25 Test Item Value Reference Range Interpretation Comments SODIUM (BEAKER) 134 meq/L 136-145 L (test code = 381) POTASSIUM (BEAKER) 4.7 meq/L 3.5-5.1 (test code = 379) CHLORIDE (BEAKER) 99 meq/L 98-107 (test code = 382) CO2 (BEAKER) (test 25 meq/L 22-29 code = 355) BLOOD UREA NITROGEN 15 mg/dL 7-21 (BEAKER) (test code = 354) CREATININE (BEAKER) 0.77 mg/dL 0.57-1.25 (test code = 358) GLUCOSE RANDOM 187 mg/dL 70-105 H (BEAKER) (test code = 652) CALCIUM (BEAKER) 8.9 mg/dL 8.4-10.2 (test code = 697) EGFR (BEAKER) (test 75 mL/min/1.73 ESTIMA VERONICA GFR IS code = 1092) sq m NOT ACCURATE CREATININE CLEARANCE IN PREDICTING GLOMERULAR FILTRATION RATE . ESTIMATED GFR I S NOT APPLICABLE FOR DIALYSIS PATIEN TS. Business Analysis Consultant ID - [id number] 14:11:30 Test Item Value Reference Range Interpretation Comments Magnesium (test code = 1.9 mg/dL 1.6-2.6 69726-9) JUANIS (test code = JUANIS) Business Analysis Consultant ID - DB Lab Interpretation (test Normal code = 03460-4) [facility] CampusMagnesium2021-12-26 14:11:30 Test Item Value Reference Range Interpretation Comments Magnesium (test code = 1.9 mg/dL 1.6-2.6 76980-6) JUANIS (test code = JUANIS) Business Analysis Consultant ID - DB Lab Interpretation (test Normal code = 11593-6) [facility]MAGNESIUM2021-12-26 14:11:30 Test Item Value Reference Range Interpretation Comments MAGNESIUM (BEAKER) (test code = 1.9 mg/dL 1.6-2.6 627) Business Analysis Consultant ID - DBVANCOMYCIN LEVEL, [id number] 12:54:39 Test Item Value Reference Range Interpretation Comments VANCOMYCIN TROUGH (BEAKER) (test 10.7 ug/mL 10.0-20.0 code = 522) Business Analysis Consultant ID - IGNACIO [id number] 08:00:34 Test Item Value Reference Range Interpretation Comments Albumin (test code = 2.2 g/dL 3.5-5.0 L 71595-5) JUANIS (test code = JUANIS) Business Analysis Consultant ID - IGNACIO W Lab Interpretation (test Abnormal code = 07343-2) [facility] CampusAlbumin2021-12-25 08:00:34 Test Item Value Reference Range Interpretation Comments Albumin (test code = 2.2 g/dL 3.5-5.0 L 42287-7) JUANIS (test code = JUANIS) Business Analysis Consultant ID - IGNACIO W Lab Interpretation (test Abnormal code = 00997-5) [facility]ALBUMIN2021-12-25 08:00:34 Test Item Value Reference Range Interpretation Comments ALBUMIN (BEAKER) (test code = 1145) 2.2 g/dL 3.5-5.0 L Business Analysis Consultant ID - IGNACIO [id number] 06:36:13 Test Item Value Reference Range Interpretation Comments Calcium (test code = 6.4 mg/dL 8.4-10.2 L 94532-2) JUANIS (test code = JUANIS) Business Analysis Consultant ID - IGNACIO W Lab Interpretation (test Abnormal code = 73912-0) [facility]Calcium2021-12-25 06:36:13 Test Item Value Reference Range Interpretation Comments Calcium (test code = 6.4 mg/dL 8.4-10.2 L 31466-1) JUANIS (test code = JUANIS) Business Analysis Consultant ID - IGNACIO W Lab Interpretation (test Abnormal code = 50250-2) [facility]CALCIUM2021-12-25 06:36:13 Test Item Value Reference Range Interpretation Comments CALCIUM (BEAKER) (test code = 697) 6.4 mg/dL 8.4-10.2 L Business Analysis Consultant ID - IGNACIO WBASIC METABOLIC [id number] 05:17:45 Test Item Value Reference Range Interpretation Comments SODIUM (BEAKER) 137 meq/L 136-145 (test code = 381) POTASSIUM (BEAKER) 3.0 meq/L 3.5-5.1 L (test code = 379) CHLORIDE (BEAKER) 112 meq/L 98-107 H (test code = 382) CO2 (BEAKER) (test 20 meq/L 22-29 L code = 355) BLOOD UREA NITROGEN 10 mg/dL 7-21 (BEAKER) (test code = 354) CREATININE (BEAKER) 0.48 mg/dL 0.57-1.25 L (test code = 358) GLUCOSE RANDOM 72 mg/dL 70-105 (BEAKER) (test code = 652) CALCIUM (BEAKER) 5.9 mg/dL 8.4-10.2 LL (test code = 697) EGFR (BEAKER) (test 130 mL/min/1.73 ESTIM ATED GFR IS code = 1092) sq m NOT ACCURATE CREATININE CLEARANCE IN PREDICTING GLOMERULAR FILTRATION RATE . ESTIMATED GFR I S NOT APPLICABLE FOR DIALYSIS PATIEN TS. Business Analysis Consultant TRACY Ashley IGNACIO [id number] 05:10:32 Test Item Value Reference Range Interpretation Comments Phosphorus (test code = 2.4 mg/dL 2.3-4.7 2777-1) JUANIS (test code = JUANIS) Business Analysis Consultant ID - IGNACIO W Lab Interpretation (test Normal code = 41766-2) [facility]Phosphorus2021-12-25 05:10:32 Test Item Value Reference Range Interpretation Comments Phosphorus (test code = 2.4 mg/dL 2.3-4.7 2777-1) JUANIS (test code = JUANIS) Business Analysis Consultant ID Ashley PIERRE W Lab Interpretation (test Normal code = 93158-4) [facility]PHOSPHORUS2021-12-25 05:10:32 Test Item Value Reference Range Interpretation Comments PHOSPHORUS (BEAKER) (test code = 2.4 mg/dL 2.3-4.7 604) Business Analysis Consultant ID Ashley PIERRE [id number] 05:10:31 Test Item Value Reference Range Interpretation Comments MAGNESIUM (BEAKER) (test code = 1.7 mg/dL 1.6-2.6 627) Business Analysis Consultant ID Ashley PIERRE WCalcium, [id number] 04:50:40 Test Item Value Reference Range Interpretation Comments Calcium, Ion (test code = 1993-11) 1.15 mmol/L 1.12-1.27 pH, Blood (test code = 36366-0) 7.39 [facility] CampusCalcium, [id number] 04:50:40 Test Item Value Reference Range Interpretation Comments Calcium, Ion (test code = 1993-11) 1.15 mmol/L 1.12-1.27 pH, Blood (test code = 47638-9) 7.39 [facility] CampusCALCIUM, [id number] 04:50:40 Test Item Value Reference Range Interpretation Comments CALCIUM IONIZED (BEAKER) (test 1.15 mmol/L 1.12-1.27 code = 698) PH, BLOOD (BEAKER) (test code = 7.39 1810) CBC W/PLT COUNT & AUTO [id number] 04:36:32 Test Item Value Reference Range Interpretation Comments WHITE BLOOD CELL COUNT (BEAKER) 10.1 K/ L 3.5-10.5 (test code = 775) RED BLOOD CELL COUNT (BEAKER) 3.46 M/ L 3.93-5.22 L (test code = 761) HEMOGLOBIN (BEAKER) (test code = 9.6 GM/DL 11.2-15.7 L 410) HEMATOCRIT (BEAKER) (test code = 29.4 % 34.1-44.9 L 411) MEAN CORPUSCULAR VOLUME (BEAKER) 85.0 fL 79.4-94.8 (test code = 753) MEAN CORPUSCULAR HEMOGLOBIN 27.7 pg 25.6-32.2 (BEAKER) (test code = 751) MEAN CORPUSCULAR HEMOGLOBIN CONC 32.7 GM/DL 32.2-35.5 (BEAKER) (test code = 752) RED CELL DISTRIBUTION WIDTH 14.0 % 11.7-14.4 (BEAKER) (test code = 412) PLATELET COUNT (BEAKER) (test 393 K/CU MM 150-450 code = 756) MEAN PLATELET VOLUME (BEAKER) 9.5 fL 9.4-12.3 (test code = 754) NUCLEATED RED BLOOD CELLS 0 /100 WBC 0-0 (BEAKER) (test code = 413) NEUTROPHILS RELATIVE PERCENT 58 % (BEAKER) (test code = 429) LYMPHOCYTES RELATIVE PERCENT 30 % (BEAKER) (test code = 430) MONOCYTES RELATIVE PERCENT 8 % (BEAKER) (test code = 431) EOSINOPHILS RELATIVE PERCENT 3 % (BEAKER) (test code = 432) BASOPHILS RELATIVE PERCENT 0 % (BEAKER) (test code = 437) NEUTROPHILS ABSOLUTE COUNT 5.86 K/ L 1.56-6.13 (BEAKER) (test code = 670) LYMPHOCYTES ABSOLUTE COUNT 3.01 K/ L 1.18-3.74 (BEAKER) (test code = 414) MONOCYTES ABSOLUTE COUNT (BEAKER) 0.80 K/ L 0.24-0.36 H (test code = 415) EOSINOPHILS ABSOLUTE COUNT 0.32 K/ L 0.04-0.36 (BEAKER) (test code = 416) BASOPHILS ABSOLUTE COUNT (BEAKER) 0.02 K/ L 0.01-0.08 (test code = 417) IMMATURE GRANULOCYTES-RELATIVE 1 % 0-1 PERCENT (BEAKER) (test code = 0151) VANCOMYCIN LEVEL, [id number] 19:55:12 Test Item Value Reference Range Interpretation Comments VANCOMYCIN TROUGH (BEAKER) (test 20.3 ug/mL 10.0-20.0 H code = 522) Business Analysis Consultant ID - DBBASIC METABOLIC [id number] 05:20:28 Test Item Value Reference Range Interpretation Comments SODIUM (BEAKER) 138 meq/L 136-145 (test code = 381) POTASSIUM (BEAKER) 2.8 meq/L 3.5-5.1 L (test code = 379) CHLORIDE (BEAKER) 110 meq/L 98-107 H (test code = 382) CO2 (BEAKER) (test 22 meq/L 22-29 code = 355) BLOOD UREA NITROGEN 12 mg/dL 7-21 (BEAKER) (test code = 354) CREATININE (BEAKER) 0.52 mg/dL 0.57-1.25 L (test code = 358) GLUCOSE RANDOM 76 mg/dL 70-105 (BEAKER) (test code = 652) CALCIUM (BEAKER) 6.2 mg/dL 8.4-10.2 L (test code = 697) EGFR (BEAKER) (test 119 mL/min/1.73 ESTIM ATED GFR IS code = 1092) sq m NOT ACCURATE CREATININE CLEARANCE IN PREDICTING GLOMERULAR FILTRATION RATE . ESTIMATED GFR I S NOT APPLICABLE FOR DIALYSIS PATIEN TS. Business Analysis Consultant ID - PIJACKELYN [id number] 05:17:02 Test Item Value Reference Range Interpretation Comments MAGNESIUM (BEAKER) (test code = 1.5 mg/dL 1.6-2.6 L 627) Business Analysis Consultant ID - YESSIJACKELYN [id number] 05:17:02 Test Item Value Reference Range Interpretation Comments PHOSPHORUS (BEAKER) (test code = 2.8 mg/dL 2.3-4.7 604) Business Analysis Consultant ID - PIJACKELYN LCALCIUM, [id number] 04:11:31 Test Item Value Reference Range Interpretation Comments CALCIUM IONIZED (BEAKER) (test 1.10 mmol/L 1.12-1.27 L code = 698) PH, BLOOD (BEAKER) (test code = 7.43 1810) CBC W/PLT COUNT & AUTO [id number] 04:09:30 Test Item Value Reference Range Interpretation Comments WHITE BLOOD CELL COUNT (BEAKER) 11.4 K/ L 3.5-10.5 H (test code = 775) RED BLOOD CELL COUNT (BEAKER) 3.79 M/ L 3.93-5.22 L (test code = 761) HEMOGLOBIN (BEAKER) (test code = 10.6 GM/DL 11.2-15.7 L 410) HEMATOCRIT (BEAKER) (test code = 32.5 % 34.1-44.9 L 411) MEAN CORPUSCULAR VOLUME (BEAKER) 85.8 fL 79.4-94.8 (test code = 753) MEAN CORPUSCULAR HEMOGLOBIN 28.0 pg 25.6-32.2 (BEAKER) (test code = 751) MEAN CORPUSCULAR HEMOGLOBIN CONC 32.6 GM/DL 32.2-35.5 (BEAKER) (test code = 752) RED CELL DISTRIBUTION WIDTH 13.5 % 11.7-14.4 (BEAKER) (test code = 412) PLATELET COUNT (BEAKER) (test 459 K/CU MM 150-450 H code = 756) MEAN PLATELET VOLUME (BEAKER) 9.3 fL 9.4-12.3 L (test code = 754) NUCLEATED RED BLOOD CELLS 0 /100 WBC 0-0 (BEAKER) (test code = 413) NEUTROPHILS RELATIVE PERCENT 71 % (BEAKER) (test code = 429) LYMPHOCYTES RELATIVE PERCENT 21 % (BEAKER) (test code = 430) MONOCYTES RELATIVE PERCENT 6 % (BEAKER) (test code = 431) EOSINOPHILS RELATIVE PERCENT 1 % (BEAKER) (test code = 432) BASOPHILS RELATIVE PERCENT 0 % (BEAKER) (test code = 437) NEUTROPHILS ABSOLUTE COUNT 8.07 K/ L 1.56-6.13 H (BEAKER) (test code = 670) LYMPHOCYTES ABSOLUTE COUNT 2.34 K/ L 1.18-3.74 (BEAKER) (test code = 414) MONOCYTES ABSOLUTE COUNT (BEAKER) 0.68 K/ L 0.24-0.36 H (test code = 415) EOSINOPHILS ABSOLUTE COUNT 0.14 K/ L 0.04-0.36 (BEAKER) (test code = 416) BASOPHILS ABSOLUTE COUNT (BEAKER) 0.02 K/ L 0.01-0.08 (test code = 417) IMMATURE GRANULOCYTES-RELATIVE 1 % 0-1 PERCENT (BEAKER) (test code = 2801) Comprehensive metabolic [id number] 01:11:40 Test Item Value Reference Range Interpretation Comments Protein, Total (test 6.1 See_Comment [Autom ated code = 2885-2) message] The system which generated this result transmit veronica reference range : 6.0 - 8.3 gm/dL . The reference range was not u sed to interpret th is result as normal/abnormal . Albumin (test code = 3.4 g/dL 3.5-5.0 L 82691-3) Alkaline Phosphatase 57 U/L 40-150 (test code = 6768-6) Total Bilirubin (test 0.3 mg/dL 0.2-1.2 code = 1975-2) Sodium (test code = 136 meq/L 544-698 5451-2) Potassium (test code 3.7 meq/L 3.5-5.1 = 2823-3) Chloride (test code = 100 meq/L 98-107 2075-0) CO2 (test code = 28 meq/L 22-29 8-9) BUN (test code = 15 mg/dL 7-21 3094-0) Creatinine (test code 0.69 mg/dL 0.57-1.25 = 2160-0) Glucose (test code = 104 mg/dL 70-105 2345-7) Calcium (test code = 8.7 mg/dL 8.4-10.2 42181-3) AST (test code = 11 U/L 5-34 1920-8) ALT (test code = 13 U/L 6-55 1742-6) EGFR (test code = 86 mL/min/1.73 sq [place] [address]-3) NOT ACCURATE CREATININE CLEARANCE IN PREDICTING GLOMERULAR FILTRATION RATE . ESTIMATED GFR I S NOT APPLICABLE FOR DIALYSIS PATIEN TS. JUANIS (test code = JUANIS) Business Analysis Consultant ID - BS Lab Interpretation Abnormal (test code = 74817-1) [facility] [id number] 01:11:40 Test Item Value Reference Range Interpretation Comments CRP (test code = 676) 0.55 mg/dL 0.00-0.50 H JUANIS (test code = JUANIS) Business Analysis Consultant ID - BS Lab Interpretation (test Abnormal code = 10847-6) [facility] [id number] 01:11:40 Test Item Value Reference Range Interpretation Comments Protein, Total (test 6.1 See_Comment [Autom ated code = 2885-2) message] The system which generated this result transmit veronica reference range : 6.0 - 8.3 gm/dL . The reference range was not u sed to interpret th is result as normal/abnormal . Albumin (test code = 3.4 g/dL 3.5-5.0 L 35718-0) Alkaline Phosphatase 57 U/L 40-150 (test code = 6768-6) Total Bilirubin (test 0.3 mg/dL 0.2-1.2 code = 1974-2) Sodium (test code = 136 meq/L 165-618 8599-2) Potassium (test code 3.7 meq/L 3.5-5.1 = 2823-3) Chloride (test code = 100 meq/L 98-107 2075-0) CO2 (test code = 28 meq/L 22-29 8-9) BUN (test code = 15 mg/dL 7-21 3094-0) Creatinine (test code 0.69 mg/dL 0.57-1.25 = 2160-0) Glucose (test code = 104 mg/dL 70-105 2345-7) Calcium (test code = 8.7 mg/dL 8.4-10.2 33820-1) AST (test code = 11 U/L 5-34 1920-8) ALT (test code = 13 U/L 6-55 1742-6) EGFR (test code = 86 mL/min/1.73 [place] [address]-9) NOT ACCURATE CREATININE CLEARANCE IN PREDICTING GLOMERULAR FILTRATION RATE . ESTIMATED GFR I S NOT APPLICABLE FOR DIALYSIS PATIEN TS. JUANIS (test code = JUANIS) Business Analysis Consultant ID - BS Lab Interpretation Abnormal (test code = 86474-2) [facility] [id number] 01:11:40 Test Item Value Reference Range Interpretation Comments CRP (test code = 676) 0.55 mg/dL 0.00-0.50 H JUANIS (test code = JUANIS) Business Analysis Consultant ID - BS Lab Interpretation (test Abnormal code = 36199-4) [facility]PREHENSIVE METABOLIC [id number] 01:11:40 Test Item Value Reference Range Interpretation Comments TOTAL PROTEIN 6.1 gm/dL 6.0-8.3 (BEAKER) (test code = 770) ALBUMIN (BEAKER) 3.4 g/dL 3.5-5.0 L (test code = 1145) ALKALINE PHOSPHATASE 57 U/L 40-150 (BEAKER) (test code = 346) BILIRUBIN TOTAL 0.3 mg/dL 0.2-1.2 (BEAKER) (test code = 377) SODIUM (BEAKER) (test 136 meq/L 136-145 code = 381) POTASSIUM (BEAKER) 3.7 meq/L 3.5-5.1 (test code = 379) CHLORIDE (BEAKER) 100 meq/L 98-107 (test code = 382) CO2 (BEAKER) (test 28 meq/L 22-29 code = 355) BLOOD UREA NITROGEN 15 mg/dL 7-21 (BEAKER) (test code = 354) CREATININE (BEAKER) 0.69 mg/dL 0.57-1.25 (test code = 358) GLUCOSE RANDOM 104 mg/dL 70-105 (BEAKER) (test code = 652) CALCIUM (BEAKER) 8.7 mg/dL 8.4-10.2 (test code = 697) AST (SGOT) (BEAKER) 11 U/L 5-34 (test code = 353) ALT (SGPT) (BEAKER) 13 U/L 6-55 (test code = 347) EGFR (BEAKER) (test 86 mL/min/1.73 [facility] GFR IS code = 1092) sq m NOT ACCURATE CREATININE CLEARANCE IN PREDICTING GLOMERULAR FILTRATION RATE . ESTIMATED GFR I S NOT APPLICABLE FOR DIALYSIS PATIEN TS. Business Analysis Consultant ID - [id number] 01:11:40 Test Item Value Reference Range Interpretation Comments MAGNESIUM (BEAKER) (test code = 2.0 mg/dL 1.6-2.6 627) Business Analysis Consultant ID - BSC-REACTIVE [id number] 01:11:40 Test Item Value Reference Range Interpretation Comments C-REACTIVE PROTEIN (BEAKER) (test 0.55 mg/dL 0.00-0.50 H code = 676) Business Analysis Consultant ID - BSLACTIC ACID, [id number] 01:03:18 Test Item Value Reference Range Interpretation Comments LACTATE BLOOD VENOUS (2) (BEAKER) 1.11 mmol/L 0.50-2.20 (test code = 2872) Business Analysis Consultant ID - BSBlood gas, [id number] 01:02:34 Test Item Value Reference Range Interpretation Comments pH, Van (test code = 7.47 7.32-7.42 H 2746-6) pCO2, Van (test code = 41 See_Comment [Aut omated message] 765) The system [employer] generated this result transmit veronica reference range : 41 - 51 mm Hg. The reference range was not used to interpret this result as normal/abnormal . pO2, Van (test code = 100 See_Comment H [Auto mated message] 2705-2) The system [employer] generated this result transmit veronica reference range : 25 - 40 mm Hg. The reference range was not used to interpret this result as normal/abnormal . O2 Sat, Van (test code 98.0 % 40.0-70.0 H = 2711-0) HCO3, Van (test code = 29 mmol/L 21-29 52645-3) Base Excess, Van (test 4.7 mmol/L -2.0-3.0 H code = 1927-3) Patient Temperature 36.1 (test code = 8310-5) FIO2 (test code = 1819) 21 Lab Interpretation Abnormal (test code = 74353-2) [facility] gas, [id number] 01:02:34 Test Item Value Reference Range Interpretation Comments pH, Van (test code = 7.47 7.32-7.42 H 2746-6) pCO2, Van (test code = 41 See_Comment [Aut omated message] 755) The system [employer] generated this result transmit veronica reference range : 41 - 51 mm Hg. The reference range was not used to interpret this result as normal/abnormal . pO2, Van (test code = 100 See_Comment H [Auto mated message] 2705-2) The system [employer] generated this result transmit veronica reference range : 25 - 40 mm Hg. The reference range was not used to interpret this result as normal/abnormal . O2 Sat, Van (test code 98.0 % 40.0-70.0 H = 2711-0) HCO3, Van (test code = 29 mmol/L 21-29 17681-9) Base Excess, Van (test 4.7 mmol/L -2.0-3.0 H code = 1927-3) Patient Temperature 36.1 (test code = 8310-5) FIO2 (test code = 1819) 21 Lab Interpretation Abnormal (test code = 44237-5) [facility] [id number] 01:02:34 Test Item Value Reference Range Interpretation Comments PH VENOUS (BEAKER) (test code = 7.47 7.32-7.42 H 701) PCO2 VENOUS (BEAKER) (test code = 41 mm Hg 41-51 755) PO2 VENOUS (BEAKER) (test code = 100 mm Hg 25-40 H 702) O2 SATURATION VENOUS (BEAKER) 98.0 % 40.0-70.0 H (test code = 703) HCO3 VENOUS (BEAKER) (test code = 29 mmol/L 21-29 705) BASE EXCESS VENOUS (BEAKER) (test 4.7 mmol/L -2.0-3.0 H code = 704) PATIENT TEMPERATURE (BEAKER) (test 36.1 code = 1818) FIO2 (BEAKER) (test code = 1819) 21.0 CBC W/PLT COUNT & AUTO [id number] 00:49:55 Test Item Value Reference Range Interpretation Comments WHITE BLOOD CELL COUNT (BEAKER) 13.0 K/ L 3.5-10.5 H (test code = 775) RED BLOOD CELL COUNT (BEAKER) 3.98 M/ L 3.93-5.22 (test code = 761) HEMOGLOBIN (BEAKER) (test code = 11.0 GM/DL 11.2-15.7 L 410) HEMATOCRIT (BEAKER) (test code = 33.4 % 34.1-44.9 L 411) MEAN CORPUSCULAR VOLUME (BEAKER) 83.9 fL 79.4-94.8 (test code = 753) MEAN CORPUSCULAR HEMOGLOBIN 27.6 pg 25.6-32.2 (BEAKER) (test code = 751) MEAN CORPUSCULAR HEMOGLOBIN CONC 32.9 GM/DL 32.2-35.5 (BEAKER) (test code = 752) RED CELL DISTRIBUTION WIDTH 13.3 % 11.7-14.4 (BEAKER) (test code = 412) PLATELET COUNT (BEAKER) (test 572 K/CU MM 150-450 H code = 756) MEAN PLATELET VOLUME (BEAKER) 9.3 fL 9.4-12.3 L (test code = 754) NUCLEATED RED BLOOD CELLS 0 /100 WBC 0-0 (BEAKER) (test code = 413) NEUTROPHILS RELATIVE PERCENT 67 % (BEAKER) (test code = 429) LYMPHOCYTES RELATIVE PERCENT 23 % (BEAKER) (test code = 430) MONOCYTES RELATIVE PERCENT 8 % (BEAKER) (test code = 431) EOSINOPHILS RELATIVE PERCENT 1 % (BEAKER) (test code = 432) BASOPHILS RELATIVE PERCENT 0 % (BEAKER) (test code = 437) NEUTROPHILS ABSOLUTE COUNT 8.77 K/ L 1.56-6.13 H (BEAKER) (test code = 670) LYMPHOCYTES ABSOLUTE COUNT 2.97 K/ L 1.18-3.74 (BEAKER) (test code = 414) MONOCYTES ABSOLUTE COUNT (BEAKER) 1.01 K/ L 0.24-0.36 H (test code = 415) EOSINOPHILS ABSOLUTE COUNT 0.12 K/ L 0.04-0.36 (BEAKER) (test code = 416) BASOPHILS ABSOLUTE COUNT (BEAKER) 0.02 K/ L 0.01-0.08 (test code = 417) IMMATURE GRANULOCYTES-RELATIVE 1 % 0-1 PERCENT (BEAKER) (test code = 2801) CBC WITH [id number] 01:31:00 Test Item Value Reference Range Interpretation Comments WBC (test code = See_Comment H [Automated 5723-2) message] The sy stem which generated this result transmitted reference range : 4.30 - 11.10 10*3/?L. The reference range was not used to interpret this result as normal/abnormal . RBC (test code = See_Comment L [Automated 639-8) message] The sy stem which generated this result transmitted reference range : 3.93 - 5.25 10*6/?L. The reference range was not used to interpret this result as normal/abnormal . HGB (test code = 11.1 g/dL 11.6-15.0 L 718-7) HCT (test code = 33.7 % 35.7-45.2 L 4544-3) MCV (test code = 86.9 fL 80.6-95.5 787-2) MCH (test code = 28.6 pg 25.9-32.8 785-6) MCHC (test code = 32.9 g/dL 31.6-35.1 786-4) RDW-SD (test code = 41.3 fL 39.0-49.9 64479-6) RDW-CV (test code = 13.1 % 12.0-15.5 788-0) PLT (test code = See_Comment [Automated 777-3) message] The sy stem which generated this result transmitted reference range : 166 - 358 10*3/ ?L. The reference r raji was not used to interpret this result as normal/abnormal . MPV (test code = 10.4 fL 9.5-12.9 24722-7) NRBC/100 WBC (test See_Comment [Automat ed code = 5179702095) message] The system which generated this result transmitted reference range : 0.0 - 10.0 /100 WBCs. The refer ence range was not u sed to interpret th is result as normal/abnormal . NRBC x10^3 (test code <0.01 See_Comment [Auto mated = 8152498189) message] The s ystem which generated this result transmitted reference range : 10*3/?L. The reference range was not used to interpret this result as normal/abnormal . GRAN MAT (NEUT) % 69.2 % (test code = 770-8) IMM GRAN % (test code 0.80 % = 8428220073) LYMPH % (test code = 15.1 % 736-9) MONO % (test code = 11.7 % 5905-5) EOS % (test code = 2.7 % 713-8) BASO % (test code = 0.5 % 706-2) GRAN MAT x10^3(ANC) 8.97 10*3/uL 1.88-7.09 H (test code = 4989840446) IMM GRAN x10^3 (test 0.10 10*3/uL 0.00-0.06 H code = 4413026180) LYMPH x10^3 (test code 1.96 10*3/uL 1.32-3.29 = 731-0) MONO x10^3 (test code 1.52 10*3/uL 0.33-0.92 H = 742-7) EOS x10^3 (test code = 0.35 10*3/uL 0.03-0.39 711-2) BASO x10^3 (test code 0.07 10*3/uL 0.01-0.07 = 704-7) Lab Interpretation Abnormal (test code = 53495-9) [facility] [id number] 01:25:16 Test Item Value Reference Interpretation Comments Range TROPONIN I (test 0.009 ng/mL See_Comment [Automated code = 5124511546) message] The system which generated this result [...] biotin. Lab Interpretation Normal (test code = 38746-0) [facility]AL [id number] 01:21:54 Test Item Value Reference Range Interpretation Comments NT-proBNP (test code 941 pg/mL See_Comment H [Autom ated = 2380665772) message] The system which generated this result transmitted reference range : <=125. The reference range was not used to interpret this result as normal/abnormal . JUANIS (test code = JUANIS) Biotin has been reported to cause a negative bias, interpret results relative to patient's use of biotin. Lab Interpretation Abnormal (test code = 71677-5) [facility]COMP. METABOLIC PANEL ([id number] 01:13:16 Test Item Value Reference Range Interpretation Comments NA (test code = 129 mmol/L 135-145 L 3688868889) K (test code = 4.4 mmol/L 3.5-5.0 3175372998) CL (test code = 95 mmol/L 98-108 L 5201082924) CO2 TOTAL (test code = 24 mmol/L 23-31 7402748324) AGAP (test code = 2-16 7934598492) BUN (test code = 9 mg/dL 7-23 8960691915) GLUCOSE (test code = 97 mg/dL 70-110 7514582281) CREATININE (test code = 0.55 mg/dL 0.50-1.04 4091506283) TOTAL BILI (test code = 0.8 mg/dL 0.1-1.2 6731257493) CALCIUM (test code = 8.9 mg/dL 8.6-10.6 0751263830) T PROTEIN (test code = 6.8 g/dL 6.3-8.2 7109864213) ALBUMIN (test code = 3.6 g/dL 3.5-5.0 0533628786) ALK PHOS (test code = 89 U/L 34-122 3500336164) ALTv (test code = 16 U/L 5-35 1742-6) AST(SGOT) (test code = 31 U/L 13-40 6864754981) eGFR (test code = mL/min/1.73m2 3857826330) JUANIS (test code = JUANIS) Association of [...] tests). Lab Interpretation Abnormal (test code = 95766-4) [facility] HospitalPROTHROM[facility] / [id number] 01:03:10 Test Item Value Reference Range Interpretation Comments PROTIME PATIENT (test See_Comment [Auto mated message] code = 5964-2) The system [employer] generated this result transmitted ref erence range: 12.0 - 1 4.7 Seconds. The re ference range was not u sed to interpret this result as normal/abnor mal. INR (test code = 6301-6) Nor mal INR <1.1; Warfarin Therap eutic range 2.0 to 3. 0 or 2.5 to 3.5, dep ending upon the indica tions. Lab Interpretation (test Normal code = 69370-4) [facility]"
[2021-10-30 16:30] LABS: Lymphocytes % 24.4 % (15.3-44.8); MPV 8.2 fL (7.6-11.3); RBC Red Blood Cell Count 3.92 M/uL (3.86-4.86)
[2021-10-30 16:33] LABS: Protime INR 1.02
[2021-10-30 16:54] LABS: Albumin 3.4 g/dL (3.4-5.0); Bilirubin Direct 0.1 mg/dL (0-0.2); Bilirubin Total 0.3 mg/dL (0.2-1.0); Magnesium 1.8 mg/dL (1.8-2.4); Potassium 3.9 mmol/L (3.5-5.1); Protein, Total 6.9 g/dL (6.4-8.2)
--- NOTE | 2021-10-30 17:31 | RAD REPORT ---
EXAM DESCRIPTION: RAD - Chest Single View - 10/30/2021 4:57 pm CLINICAL HISTORY: SOB COMPARISON: Portable 09/07/2021 TECHNIQUE: AP portable chest image was obtained 10/30/2021 4:57 pm . FINDINGS: No new mass or consolidation. Prominent interstitial pattern is similar to comparison. Thi s could mask edema or infiltrate. Upper lobe vasculature within normal limits peer heart size is norm al. No measurable pleural effusion and no pneumothorax. No acute bony abnormality seen. No acute aort ic findings suspected. IMPRESSION: No acute cardiopulmonary process. Severity of chronic interstitial pattern could mask interstitial edema or infiltrate.
[2021-10-30 17:34] LABS: SARS-COV-2 RT PCR NEGATIVE (NEGATIVE)
[2021-10-30] MEDS ORDERED: NA CHLORIDE 0.9% 500 ML ONE (17:50)
[2021-10-30] MEDS ORDERED: CEFTRIAXONE 1000 MG/VIAL ONE (18:05)
--- NOTE | 2021-10-30 18:47 | EDPHYS ---
Physician Documentation [facility] Name: Irina Pardo Age: 66 yrs Sex: Female : 1955 Arrival Date: 10/30/2021 Time: 15:27 Bed 3 Private MD: ED Physician Dennis Flores HPI: 10/30 16:05 This 66 yrs old Female presents to ER via EMS with complaints of Shortness Of Breath. pm1 16:05 The patient has shortness of breath at rest. Onset: The symptoms/episode began/occurred pm1 2 week(s) ago. Duration: The symptoms are continuous, worse the past 3 days. The patient's shortness of breath is aggravated by nothing, is alleviated by nothing. Associated signs and symptoms: Pertinent positives: non-productive cough, Pertinent negatives: chest pain, fever, nausea, vomiting. Severity of symptoms: in the emergency department the symptoms are worse. The patient has experienced similar episodes in the past, a few times. The patient has not recently seen a physician. Patient given Solu-Medrol 125, albuterol 5 mg and Atrovent 0.5 by EMS [employer]. Historical: - Allergies: 15:46 SHELLFISH; vg1 15:46 Iodine; vg1 - PMHx: 15:46 COPD; CVA; vg1 - Immunization history:: Client reports receiving the 2nd dose of the Covid vaccine. - Social history:: Smoking status: Patient/guardian denies using tobacco, the patient reports quitting approximately 1 years ago. ROS: 16:05 Constitutional: Negative for fever, chills, and weight loss, Cardiovascular: Negative pm1 for chest pain, palpitations, and edema. 16:05 Abdomen/GI: Negative for abdominal pain, nausea, vomiting, diarrhea, and constipation, Back: Negative for injury and pain, MS/Extremity: Negative for injury and deformity, Skin: Negative for injury, rash, and discoloration, Neuro: Negative for headache, weakness, numbness, tingling, and seizure. 16:05 Respiratory: Positive for cough, shortness of breath. 16:05 All other systems are negative. Exam: 16:05 Constitutional: This is a well developed, well nourished patient who is awake, alert, pm1 and in no acute distress. Head/Face: Normocephalic, atraumatic. Chest/axilla: Normal chest wall appearance and motion. Nontender with no deformity. No lesions are appreciated. Cardiovascular: Regular rate and rhythm with a normal S1 and S2. No gallops, murmurs, or rubs. Normal PMI, no JVD. No pulse deficits. 16:05 Back: No spinal tenderness. No costovertebral tenderness. Full range of motion. Skin: Warm, dry with normal turgor. Normal color with no rashes, no lesions, and no evidence of cellulitis. MS/ Extremity: Pulses equal, no cyanosis. Neurovascular intact. Full, normal range of motion. 16:05 Eyes: Exam is negative for acute changes, Extraocular movements: no acute changes, Conjunctiva: no acute changes, no injection. 16:05 ENT: Exam is negative for acute changes, Mouth: Lips: normal, moist, Oral mucosa: normal, pink and intact, moist. 16:05 Respiratory: Exam negative for acute changes, the patient does not display signs of respiratory distress, Breath sounds: wheezing: expiratory that is mild, is heard diffusely. 16:05 Neuro: Exam negative for acute changes, Orientation: is normal, Mentation: is normal, Motor: is normal, moves all fours. Vital Signs: 15:25 BP 123 / 83; Pulse 112; Resp 22; Temp 99.2(O); Pulse Ox 94% on 2 lpm NC; Weight 61.23 vg1 kg; Height 5 ft. 1 in. (154.94 cm); Pain 0/10; 16:40 BP 95 / 74; Pulse 106; Resp 22; Pulse Ox 95% on 2 lpm NC; vg1 17:00 BP 91 / 69; Pulse 102; Resp 21; Pulse Ox 96% ; Pain 0/10; eo2 17:30 BP 101 / 79; Pulse 97; Resp 20; Pulse Ox 97% on 2 lpm NC; vg1 15:25 Body Mass Index 25.51 (61.23 kg, 154.94 cm) vg1 MDM: 15:40 Patient medically screened. pm1 17:59 Data reviewed: vital signs. Data interpreted: Pulse oximetry: on room air is 97 %. pm1 Interpretation: normal. 18:04 Counseling: I had a detailed discussion with the patient and/or guardian regarding: the pm1 historical points, exam findings, and any diagnostic results supporting the discharge/admit diagnosis, lab results, radiology results, the need for outpatient follow up, a front end assistant, to return to the emergency department if symptoms worsen or persist or if there are any questions or concerns that arise at home. 10/30 15:41 Order name: Troponin HS; Complete Time: 17:08 pm1 10/30 15:41 Order name: COVID-19/FLU A+B (Document "Date of Onset" if Symptomatic); Complete Time: pm1 17:35 10/30 16:05 Order name: Basic Metabolic Panel; Complete Time: 17:08 EDMS 10/30 16:05 Order name: Liver (Hepatic) Function; Complete Time: 17:08 EDMS 10/30 16:05 Order name: Magnesium; Complete Time: 17:08 EDMS 10/30 16:05 Order name: NT PRO-BNP; Complete Time: 17:08 EDMS 10/30 16:05 Order name: Protime (+INR); Complete Time: 16:39 EDMS 10/30 15:41 Order name: XRAY Chest (1 view); Complete Time: 17:35 pm1 10/30 15:41 Order name: Cardiac monitoring; Complete Time: 15:51 pm1 10/30 15:41 Order name: EKG - Nurse/Tech; Complete Time: 15:51 pm1 10/30 15:41 Order name: IV Saline Lock; Complete Time: 15:51 pm1 10/30 15:41 Order name: Labs collected and sent; Complete Time: 15:51 pm1 10/30 15:41 Order name: O2 Per Protocol; Complete Time: 15:51 pm1 10/30 15:41 Order name: O2 Sat Monitoring; Complete Time: 15:51 pm1 10/30 16:05 Order name: EKG Electrocardiogram EDMS 10/30 16:05 Order name: CBC with Automated Diff; Complete Time: 16:39 EDMS Administered Medications: 17:52 Drug: NS 0.9% 500 ml Route: IV; Rate: bolus; Site: left wrist; vg1 18:10 Drug: Rocephin (cefTRIAXone) 1 grams Route: IV; Rate: calculated rate; Site: left wrist;vg1 Disposition: 10/31 06:29 Co-signature as Attending Physician, Dennis Flores MD I agree with the assessment and kdr plan of care. Disposition Summary: 10/30/21 18:46 Discharge Ordered Location: Home pm1 Problem: new pm1 Symptoms: have improved pm1 Condition: Stable pm1 Diagnosis - COPD/ Chronic obstructive pulmonary disease with (acute) exacerbation pm1 Followup: pm1 - With: Emergency Department - When: As needed - Reason: Worsening of condition Followup: pm1 - With: Private Physician - When: 2 - 3 days - Reason: Recheck today's complaints, Continuance of care, Re-evaluation by your physician Discharge Instructions: - Discharge Summary Sheet pm1 - Chronic Obstructive Pulmonary Disease Exacerbation pm1 Forms: - Medication Reconciliation Form pm1 - Thank You Letter pm1 - Antibiotic Education pm1 - Prescription Opioid Use pm1 Prescriptions: - Prednisone 20 mg Oral Tablet - take 3 tablets by ORAL route once daily for 5 days; 15 tablet; Refills: 0, pm1 Product Selection Permitted - Zithromax Z-Andrea 250 mg Oral Tablet - take 1 tablet by ORAL route as directed for 5 days Day 1 - take two (2) tablets pm1 one time. Day 2, 3, 4 , 5 take one (1) tablet once daily.; 6 tablet; Refills: 0, Product Selection Permitted - Ventolin HFA 90 mcg/actuation Inhalation HFA aerosol inhaler - inhale 1 puff by INHALATION route every 4-6 hours As needed; 1 Inhaler; pm1 Refills: 0, Product Selection Permitted - Albuterol Sulfate 2.5 mg /3 mL (0.083 %) Inhalation Solution for Nebulization - inhale 1 unit by NEBULIZATION route every 8 hours As needed; 1 box; Refills: 0, pm1 Product Selection Permitted - Guaifenesin AC 10-100 mg/5 mL Oral Liquid - take 10 milliliters by ORAL route every 4 hours As needed; 240 milliliter; pm1 Refills: 0, Product Selection Permitted Signatures: Dispatcher [employer] EDMS Dennis Flores MD MD kdr Marinas, Patrick, NP [employer] pm1 Nita Goel RN RN vg1 Corrections: (The following items were deleted from the chart) 10/30 16:20 16:05 Chest Single View ordered. EDMS EDMS 16:26 16:05 Troponin High Sensitivity ordered. EDMS EDMS 16:26 16:15 BASIC METABOLIC PANEL+C.LAB.BRZ ordered. EDMS EDMS 16:26 16:15 HEPATIC FUNCTION+C.LAB.BRZ ordered. EDMS EDMS 16: 16:15 MAGNESIUM+C.LAB.BRZ ordered. EDMS EDMS 16: 16:15 PROBNP+C.LAB.BRZ ordered. EDMS EDMS 16: 16:05 SARS-COV-2 RT PCR ordered. EDMS EDMS 16: 16:15 CBC+H.LAB.BRZ ordered. EDMS EDMS 16:51 16:15 PROTIME (+INR)+COAG.LAB.BRZ ordered. EDMS EDMS
--- NOTE | 2021-10-30 18:47 | ER ---
Nurse's Notes [facility] Name: Irina Pardo Age: 66 yrs Sex: Female : 1955 Arrival Date: 10/30/2021 Time: 15:27 Bed 3 Private MD: Diagnosis: COPD/ Chronic obstructive pulmonary disease with (acute) exacerbation Presentation: 10/30 15:25 Chief complaint: EMS states: SOB x 2 weeks; has become worse within a couple of days; vg1 pt has hx of COPD and a couple of months ago pt had pneumonia in the Right Lung; pt is on oxygen at home 2L [place]; EMS administered 5 mg of Albuteral nebulizer x1, 0.5 mg Ipratropium nebulized x1, and 125 mg Solumedrol IM x1. 15:25 Coronavirus screen: Vaccine status: Patient reports receiving the 2nd dose of the covid vg1 vaccine. Client denies travel out of the [place] in the last 14 days. Ebola Screen: Patient negative for fever greater than or equal to 101.5 degrees Fahrenheit, and additional compatible Ebola Virus Disease symptoms. Initial Sepsis Screen: Does the patient meet any 2 criteria? RR > 20 per min. HR > 90 bpm. Yes Does the patient have a suspected source of infection? No. Patient's initial sepsis screen is negative. Risk Assessment: Do you want to hurt yourself or someone else? Patient reports no desire to harm self or others. Onset of symptoms was October 16, 2021. 15:25 Method Of Arrival: EMS: [facility] 15:25 Acuity: FRANK 3 vg1 Triage Assessment: 15:25 General: Appears in no apparent distress. uncomfortable, Behavior is calm, cooperative. vg1 Pain: Denies pain. EENT: No signs and/or symptoms were reported regarding the EENT system. Neuro: Level of Consciousness is awake, alert, obeys commands, Oriented to person, place, time, situation. Cardiovascular: Patient's skin is warm and dry. Respiratory: Reports shortness of breath at rest on exertion cough that is labored breathing Airway is patent Respiratory effort is even, labored, Respiratory pattern is tachypnea Breath sounds with wheezes bilaterally. GI: Patient currently denies diarrhea, nausea, vomiting. : Reports 'blood in urine'. Derm: Skin is pink, warm \T\ dry. Musculoskeletal: Circulation, motion, and sensation intact. Historical: - Allergies: 15:46 SHELLFISH; vg1 15:46 Iodine; vg1 - PMHx: 15:46 COPD; CVA; vg1 - Immunization history:: Client reports receiving the 2nd dose of the Covid vaccine. - Social history:: Smoking status: Patient/guardian denies using tobacco, the patient reports quitting approximately 1 years ago. Screenin:49 Abuse screen: Denies threats or abuse. Nutritional screening: No deficits noted. vg1 Tuberculosis screening: No symptoms or risk factors identified. Fall Risk No fall in past 12 months (0 pts). No secondary diagnosis (0 pts). IV access (20 points). Ambulatory Aid- None/Bed Rest/Nurse Assist (0 pts). Gait- Normal/Bed Rest/Wheelchair (0 pts) Mental Status- Oriented to own ability (0 pts). Total Thomas Fall Scale indicates No Risk (0-24 pts). Assessment: 15:25 Reassessment: SEE TRIAGE. vg1 17:01 Reassessment: Patient appears in no apparent distress at this time. No changes from vg1 previously documented assessment. Patient and/or family updated on plan of care and expected duration. Pain level reassessed. Patient is alert, oriented x 3, equal unlabored respirations, skin warm/dry/pink. Vital Signs: 15:25 BP 123 / 83; Pulse 112; Resp 22; Temp 99.2(O); Pulse Ox 94% on 2 lpm NC; Weight 61.23 vg1 kg; Height 5 ft. 1 in. (154.94 cm); Pain 0/10; 16:40 BP 95 / 74; Pulse 106; Resp 22; Pulse Ox 95% on 2 lpm NC; vg1 17:00 BP 91 / 69; Pulse 102; Resp 21; Pulse Ox 96% ; Pain 0/10; eo2 17:30 BP 101 / 79; Pulse 97; Resp 20; Pulse Ox 97% on 2 lpm NC; vg1 15:25 Body Mass Index 25.51 (61.23 kg, 154.94 cm) vg1 ED Course: 15:27 Patient arrived in ED. iw 15:35 Mert Vivas NP is PHCP. pm1 15:35 Dennis Flores MD is Attending Physician. pm1 15:39 Nita Goel, RN is Primary Nurse. vg1 15:46 Triage completed. vg1 15:49 Patient has correct armband on for positive identification. Bed in low position. Call vg1 light in reach. Side rails up X2. environmental monitoring technician on. Pulse ox on. NIBP on. 15:49 Initial lab(s) drawn, by ED staff. Inserted saline lock: 22 gauge in left wrist, using vg1 aseptic technique. ,using aseptic technique. completed by Gisela FUENTES. 15:50 Arm band placed on. vg1 16:57 XRAY Chest (1 view) In Process Unspecified. EDMS 19:00 Primary Nurse role handed off by Nita Goel RN cs9 20:23 Lilibeth Goodman, ALFREDO is Primary Nurse. st1 Administered Medications: 17:52 Drug: NS 0.9% 500 ml Route: IV; Rate: bolus; Site: left wrist; vg1 18:10 Drug: Rocephin (cefTRIAXone) 1 grams Route: IV; Rate: calculated rate; Site: left wrist;vg1 Outcome: 18:46 Discharge ordered by MD. pm1 20:23 Patient left the ED. st1 Signatures: Dispatcher [employer] EDMS Deborah Lowe RN RN iw Marinas, Patrick, NP [employer] pm1 Nita Goel, RN RN evelin1 Arabella Watkins cs9 Gisela Srinivasan, ALFREDO FUENTES eo2 Lilibeth Goodman, RN RN st1 Corrections: (The following items were deleted from the chart) 17:53 17:52 Reassessment: vg1 vg1
[2021-10-30 20:38] VITALS: TEMP 99.2
[2021-10-30 20:42] VITALS: BP 101/79; O2SAT 97
== END 2021-10-30 20:23 | disposition home or self-care (01) ==
LOC: ER 15:21
DX: J44.1 Chronic obstructive pulmonary disease with (acute) exacerbation (principal); Z91.013 Allergy to seafood; Z91.048 Other nonmedicinal substance allergy status; Z20.822 Contact with and (suspected) exposure to COVID-19
CPT/HCPCS: 93005; 85025; 80048; 36415; 83735; 85610; 80076; 84484; 83880; 0240U; 71045; 96374; 99284; J7040

== ENCOUNTER 2022-01-14 12:54 | Emergency (ER) | payer OTHER ==
--- OUTSIDE RECORDS SUMMARY | 2022-01-14 13:03 | XMS REPORT | Continuity of Care Document ---
:1955 Author Organization [facility] t Address [address] [place] [address] Care Team Providers Name Role Phone Pcp Primary Care Physician Unavailable Festus MERCADO Attending Clinician Unavailable ALAINA Attending Clinician Unavailable ALAINA Attending Clinician Unavailable Sincere HAJI Attending Clinician Unavailable Festus Mercado MD Attending Clinician Doctor Unassigned, Name Attending Clinician Unavailable Nida MONCADA, P. Attending Clinician Deena MONCADA Attending Clinician Barbra MONCADA Attending Clinician Krish MONCADA Attending Clinician Ester MONCADA Attending Clinician ESTER Attending Clinician Unavailable Donnie CHAVEZ Attending Clinician Marisela FUENTES, T Attending Clinician Unavailable Rober CHAVEZ Attending Clinician ROBER Attending Clinician Unavailable Alaina KELLY Attending Clinician GLADYS Attending Clinician [...] Expiration Date Ellie garcia MEDICARE PART A [id number] 1998 \\T\\ B 00:00:00 MEDICAID [facility] [id number] 2020 00:00:00 Problems Condition Condition Condition Status Onset Resolution Last Treating Co mments Source Name Details Category Date Date Treatment Clinician Date COPD COPD Disease Active 2020-[address] [facility] exacerb[facility] exacerbati 11-08 [facility] k[facility] - on on 00:00: Medical 00 Center Bacteremia Bacteremia Disease Active 2020-09 U nivers 2 ity of 00:00: [place] 00 Medical Branch Pneumonia Pneumonia Disease Active Uni vers due [...] Branch Stroke Stroke Disease Active 2018-09 Univers 2- ity of 00:00: [place] 00 Medical Branch Hypothyroi Hypothyroi Disease Active Overview : Univers dism dism - Formattin ity of (acquired) (acquired) 00:00: g of this [place] 00 note Medical might be Branch different from the original. ICD10 Diagnosis Term Blog Writer Utility COPD COPD Disease Active Univers (chronic (chronic 01-06 ity of obstructiv obstructiv [place] 00 Medical pulmonary pulmonary Bran ch disease) disease) Vitamin D Vitamin D Disease Active Overview: Univers deficiency deficiency - Formattin ity of 00:00: g of this [place] note Medical might be Branch different from the original. ICD10 Diagnosis Term Blog Writer Utility Osteoporos Osteoporos Disease Active U nivers is is 01-06 ity of 00:00: [place] 00 Medical Branch CVA CVA Disease Active Univers (cerebral (cerebral 01-06 ity of vascular vascular 00:00: [place] accident) accident) [address] [facility] Branch Joint Joint Disease Active Univers contractur contractur 01-06 it y of e of hand, e of hand, [place] right [facility] Tobacco Tobacco Disease Active Univers abuse abuse 01-06 ity of 00:00: [place] [facility] Marijuana Marijuana Disease Active Uni vers abuse abuse 01-06 ity of 00:00: [place] [facility] COPD COPD Disease Active Univers exacerbati exacerbati 01-06 it y of on on 00:00: [place] [facility] Allergies, Adverse Reactions, Alerts Allergy Allergy Status Severity Reaction(s) Onset Inactive Treating Comm ents Source Name Type Date Date Clinician SHELLFIS Allergy Active High Sob 2019-[address] [facility] DERIVED 00:[facility]: Medical 00 Center Shellfis Propensi Active Swelling 2019-09 Univ ers h ty to 09-20 ity of Derived adverse 00:00: [place] reaction Medical s Branch SHELLFIS DRUG Active SOB 2019-09 Univers H INGREDI 09-20 ity of DERIVED 00:00: [place] [facility] Shellfis Drug Active Shortness Of 2019-[address] [facility] Allergy Breath, 09-20 [facility] - Derived Swelling 00:00: Medical 00 Center Codeine Propensi Active Swelling throat Unive rs ty to 12-18 ity of adverse 00:00: [place] reaction 00 Medical s Branch CODEINE DRUG Active High Swelling Univers INGREDI 12-18 ity of 00:00: [place] [facility] CODEINE Allergy Active High Swelling [facility] -03 [facility] - 00[facility] Medical 00 Center Codeine Drug Active Swelling throat [facility] Allergy - [facility] - 00:[facility]: Medical Center Iodine Propensi Active Swelling (shell Univer s ty to 01-06 fish) ity of adverse 00:00: throat [place] reaction swells [facility] s Branch IODINE DRUG Active High Swelling Univers INGREDI 01-06 ity of 00:00: [place] [facility] IODINE Allergy Active High Swelling [facility] 4[facility]22 [facility] - 00:[facility]: Medical Center Iodine Drug Active Swelling (shell [facility] Allergy 4-22 fish) [facility] - 00:[facility]: [facility] [address] [place] [address] Social History Social Habit Start Date Stop Date Quantity Comments Source History SDOH [facility] - Alcohol Std Drinks [facility] History SDOH [facility] - Alcohol Binge Medical [facility] History SDOH [facility] - Alcohol Comment Medical C enter Exposure to Not sure University of SARS-CoV-2 (event) [facility] Tobacco use and 2021-09-08 2021-09-[address] Jaqui kes - exposure 00:00:00 00:00:00 [facility] Alcohol intake 2021-09-08 2021-09-[address] [facility] - 00:00:00 00:00:00 non-drinker Medical Cente r (finding) History SDOH 2021-09-08 2021-09-[address] [facility] - Alcohol Frequency 00:00:00 00:00:00 [facility] Tobacco Comment 2021-05-03 2021-05-03 Used to smoke 2 Univ ersity of 00:00:00 00:00:00 packs per day- [facility] zia quit aug 2020 [place] Cigarettes smoked 2020-10-13 2020-10-13 Univers ity of current (pack per 00:00:00 00:00:00 [facility] ) - Reported Branch Cigarette 2020-10-13 2020-10-13 University of pack-years 00:00:00 00:00:00 [facility] History of tobacco 2020-06-20 Cigarette Smoker University of use 00:00:00 [facility] Sex Assigned At [address] [facility] Jaqui kes - 00:00:00 00:00:00 [facility] Smoking Status Start Date Stop Date Source Former smoker 2021-09-08 00:00:00 2021-09-08 00:00:[address] [facility] [facility] - [facility] Medications Ordered Filled Start Stop Current Ordering Indication Dosage Frequency Signature Comments Components Source Medication Medication Date Date Medication? Clinician (SIG) Name Name albuterol Yes [id number] 2.5mg Inhale 3 Univers 2.5 mg /3 4-27 mL every 4 ity of mL (0.083 00:00: (four) [place] %) 00 hours. May Medical nebulizer also Branch solution nebulize one extra every 6 hours. albuterol 2021-0 Yes [id number] 2.5mg Inhale 3 Univers 2.5 mg /3 4-27 mL every 4 ity of mL (0.083 00:00: (four) [place] %) 00 hours. May Medical nebulizer also Branch solution nebulize one extra every 6 hours. albuterol 2021-0 Yes [id number] 2.5mg Inhale 3 Univers 2.5 mg /3 4-15 mL every 4 ity of mL (0.083 00:00: (four) [place] %) 00 hours. May Medical nebulizer also Branch solution nebulize one extra every 6 hours. albuterol 2021-0 Yes [id number] 2.5mg Inhale 3 Univers 2.5 mg /3 4-15 mL every 4 ity of mL (0.083 00:00: (four) [place] %) 00 hours. May Medical nebulizer also Branch solution nebulize one extra every 6 hours. albuterol 2021-0 Yes [id number] 2.5mg Inhale 3 Univers 2.5 mg /3 4-15 mL every 4 ity of mL (0.083 00:00: (four) [place] %) 00 hours. May Medical nebulizer also Branch solution nebulize one extra every 6 hours. albuterol 2021-0 2021- No [id number] 2.5mg Inhale 3 Univers 2.5 mg /3 4-15 04-27 mL every 4 ity of mL (0.083 00:00: 00:00 (four) [place] %) 00 :00 hours. May Medical nebulizer also Branch solution nebulize one extra every 6 hours. polyethylen 2020-09- No 17g Take 17 g [...] 1250mg Q24H Inject [address] water 2-29 12-31 mLs (1,250 [facility] - inject, 00:00: 23:59 mg total) Medi zia PEG, (VANCO 00 :00 intravenou Ce nter READY) 1.25 sly daily gram/250 mL for 2 PgBk days. vancomycin- 2020-09- No 1250mg Q24H Inject [address] water 2-29 12-31 mLs (1,250 [facility] - inject, 00:00: 23:59 mg total) Medi zia PEG, (VANCO 00 :00 intravenou Ce nter READY) 1.25 sly daily gram/250 mL for 2 PgBk days. clopidogreL 2020-09 Yes 1{tbl} QD Take 1 [...] 00 every Center 25 MCG morning. tablet levothyroxi 2020-09 Yes [id number] 25ug Take 1 Univers ne 25 mcg 2-09 tablet by ity o f tablet 00:00: mouth [place] 00 every Medical morning. Branch clopidogreL 2020-09 Yes [id number] 75mg Take 1 Univers 75 mg 2-09 tablet by ity of tablet 00:00: mouth [place] 00 daily. Medical Branch levothyroxi 2020-09 Yes [id number] 25ug Take 1 Univers ne 25 mcg 2-09 tablet by ity o f tablet 00:00: mouth [place] 00 every Medical morning. Branch clopidogreL 2020-09 Yes [id number] 75mg Take 1 Univers 75 mg 2-09 tablet by ity of tablet 00:00: mouth [place] 00 daily. Medical Branch levothyroxi 2020-09 Yes [id number] 25ug Take 1 Univers ne 25 mcg 2-09 tablet by ity o f tablet 00:00: mouth [place] 00 every Medical morning. Branch clopidogreL 2020-09 Yes [id number] 75mg Take 1 Univers 75 mg 2-09 tablet by ity of tablet 00:00: mouth [place] 00 daily. Medical Branch levothyroxi 2020-09 Yes [id number] 25ug Take 1 Univers ne 25 mcg 2-09 tablet by ity o f tablet 00:00: mouth [place] 00 every Medical morning. Branch clopidogreL 2020-09 Yes [id number] 75mg Take 1 Univers 75 mg 2-09 tablet by ity of tablet 00:00: mouth [place] 00 daily. Medical Branch levothyroxi 2020-09 Yes [id number] 25ug Take 1 Univers ne 25 mcg 2-09 tablet by ity o f tablet 00:00: mouth [place] 00 every Medical morning. Branch clopidogreL 2020-09 Yes [id number] 75mg Take 1 Univers 75 mg 2-09 tablet by ity of tablet 00:00: mouth [place] 00 daily. Medical Branch levothyroxi 2020-09 Yes [id number] 25ug Take 1 Univers ne 25 mcg 2-09 tablet by ity o f tablet 00:00: mouth [place] 00 every Medical morning. Branch clopidogreL 2020-09 Yes [id number] 75mg Take 1 Univers 75 mg 2-09 tablet by ity of tablet 00:00: mouth [place] 00 daily. Medical Branch levothyroxi 2020-09 Yes [id number] 25ug Take 1 Univers ne 25 mcg 2-09 tablet by ity o f tablet 00:00: mouth [place] 00 every Medical morning. Branch clopidogreL 2020-09 Yes [id number] 75mg Take 1 Univers 75 mg 2-09 tablet by ity of tablet 00:00: mouth [place] 00 daily. Medical Branch levothyroxi 2020-09 Yes [id number] 25ug Take 1 Univers ne 25 mcg 2-09 tablet by ity o f tablet 00:00: mouth [place] 00 every Medical morning. Branch clopidogreL 2020-09 Yes [id number] 75mg Take 1 Univers 75 mg 2-09 tablet by ity of tablet 00:00: mouth [place] 00 daily. Medical Branch levothyroxi 2020-09 Yes [id number] 25ug Take 1 Univers ne 25 mcg 2-09 tablet by ity o f tablet 00:00: mouth [place] 00 every Medical morning. Branch clopidogreL 2020-09 Yes [id number] 75mg Take 1 Univers 75 mg 2-09 tablet by ity of tablet 00:00: mouth [place] 00 daily. Medical Branch ipratropium 2020-09- No 9mL 9 mL, Univ ers -albuteroL 10-25 Inhalation it y of (DUONEB) 02:00: 01:05 , ONCE, 1 [place] as 0.5 mg-3 00 :00 dose, On Medical mg(2.5 mg e Branch base)/3 mL 08/23/21 at nebulizer 1999, JEFF solution 9 mL methylpredn 2020-09- No 125mg 125 mg, IV Univers isolone sod 10-25 Piggyback, i ty of succ 02:00: 00:54 ONCE, 1 [place] (SOLU-MEDRO 00 :00 dose, On Medi zia L) Tue Branch injection 08/23/21 at 125 mg 1999, STAT benzonatate 2020-09 Yes 200mg Take [address] (TESSALON) 2-07 mg by [facility] - 200 MG 00:00: mouth 3 Medical capsule 00 (three) Center times daily as needed. predniSONE 2020-09 Yes 1{tbl} QD Take [address] [facility] (DELTASONE) 2-07 tablet by [facility] - 50 MG 00:00: mouth Medical tablet 00 daily. [place] benzonatate 2020-09 Yes 200mg Take [address] (TESSALON) 2-07 mg by [facility] - 200 MG 00:00: mouth 3 Medical capsule 00 (three) Center times daily as needed. predniSONE 2020-09 Yes 1{tbl} QD Take [address] (DELTASONE) 2-07 tablet by [place] [facility] - 50 MG 00:00: mouth Medical tablet 00 daily. [place] albuterol 2020-09 Yes [id number] 2{puff} Inhale 2 Univers 90 2-07 Puffs ity of mcg/actuati 00:00: every 4 [place] as on inhaler 00 (four) Medical hours as Branch needed for Wheezing or Shortness of Breath. albuterol 2020-09 Yes [id number] 2.5mg Inhale 3 Univers 2.5 mg /3 2-07 mL every 4 ity of mL (0.083 00:00: (four) [place] %) 00 hours. May Medical nebulizer also Branch solution nebulize one extra every 6 hours. predniSONE 2020-09 Yes [id number] 50mg Take 1 Univers 50 mg 2-07 tablet by ity of tablet 00:00: mouth [place] 00 daily. Medical Branch benzonatate 2020-09 Yes [id number] 200mg Take 1 Univers 200 mg 2-07 capsule by ity of capsule 00:00: mouth 3 [place] 00 (three) Medical times Branch daily as needed for Cough. albuterol 2020-09 Yes [id number] 2{puff} Inhale 2 Univers 90 2-07 Puffs ity of mcg/actuati 00:00: every 4 [place] as on inhaler 00 (four) Medical hours as Branch needed for Wheezing or Shortness of Breath. albuterol 2020-09 Yes [id number] 2.5mg Inhale 3 Univers 2.5 mg /3 2-07 mL every 4 ity of mL (0.083 00:00: (four) [place] %) 00 hours. May Medical nebulizer also Branch solution nebulize one extra every 6 hours. predniSONE 2020-09 Yes [id number] 50mg Take 1 Univers 50 mg 2-07 tablet by ity of tablet 00:00: mouth [place] 00 daily. Medical Branch benzonatate 2020-09 Yes [id number] 200mg Take 1 Univers 200 mg 2-07 capsule by ity of capsule 00:00: mouth 3 [place] 00 (three) Medical times Branch daily as needed for Cough. albuterol 2020-09 Yes [id number] 2{puff} Inhale 2 Univers 90 2-07 Puffs ity of mcg/actuati 00:00: every 4 [place] as on inhaler 00 (four) Medical hours as Branch needed for Wheezing or Shortness of Breath. albuterol 2020-09 Yes [id number] 2.5mg Inhale 3 Univers 2.5 mg /3 2-07 mL every 4 ity of mL (0.083 00:00: (four) [place] %) 00 hours. May Medical nebulizer also Branch solution nebulize one extra every 6 hours. predniSONE 2020-09 Yes [id number] 50mg Take 1 Univers 50 mg 2-07 tablet by ity of tablet 00:00: mouth [place] 00 daily. Medical Branch benzonatate 2020-09 Yes [id number] 200mg Take 1 Univers 200 mg 2-07 capsule by ity of capsule 00:00: mouth 3 [place] 00 (three) Medical times Branch daily as needed for Cough. albuterol 2020-09 Yes [id number] 2{puff} Inhale 2 Univers 90 2-07 Puffs ity of mcg/actuati 00:00: every 4 [place] as on inhaler 00 (four) Medical hours as Branch needed for Wheezing or Shortness of Breath. albuterol 2020-09 Yes [id number] 2.5mg Inhale 3 Univers 2.5 mg /3 2-07 mL every 4 ity of mL (0.083 00:00: (four) [place] %) 00 hours. May Medical nebulizer also Branch solution nebulize one extra every 6 hours. predniSONE 2020-09 Yes [id number] 50mg Take 1 Univers 50 mg 2-07 tablet by ity of tablet 00:00: mouth [place] 00 daily. Medical Branch benzonatate 2020-09 Yes [id number] 200mg Take 1 Univers 200 mg 2-07 capsule by ity of capsule 00:00: mouth 3 [place] 00 (three) Medical times Branch daily as needed for Cough. albuterol 2020-09 Yes [id number] 2{puff} Inhale 2 Univers 90 2-07 Puffs ity of mcg/actuati 00:00: every 4 [place] as on inhaler 00 (four) Medical hours as Branch needed for Wheezing or Shortness of Breath. albuterol 2020-09 Yes [id number] 2.5mg Inhale 3 Univers 2.5 mg /3 2-07 mL every 4 ity of mL (0.083 00:00: (four) [place] %) 00 hours. May Medical nebulizer also Branch solution nebulize one extra every 6 hours. predniSONE 2020-09 Yes [id number] 50mg Take 1 Univers 50 mg 2-07 tablet by ity of tablet 00:00: mouth [place] 00 daily. Medical Branch benzonatate 2020-09 Yes [id number] 200mg Take 1 Univers 200 mg 2-07 capsule by ity of capsule 00:00: mouth 3 [place] 00 (three) Medical times Branch daily as needed for Cough. albuterol 2020-09 Yes [id number] 2{puff} Inhale 2 Univers 90 2-07 Puffs ity of mcg/actuati 00:00: every 4 [place] as on inhaler 00 (four) Medical hours as Branch needed for Wheezing or Shortness of Breath. predniSONE 2020-09 Yes [id number] 50mg Take 1 Univers 50 mg 2-07 tablet by ity of tablet 00:00: mouth [place] 00 daily. Medical Branch benzonatate 2020-09 Yes [id number] 200mg Take 1 Univers 200 mg 2-07 capsule by ity of capsule 00:00: mouth 3 00 (three) Medical times Branch daily as needed for Cough. albuterol 2020-09 Yes [id number] 2{puff} Inhale 2 Univers 90 2-07 Puffs ity of mcg/actuati 00:00: every 4 [place] as on inhaler 00 (four) Medical hours as Branch needed for Wheezing or Shortness of Breath. predniSONE 2020-09 Yes [id number] 50mg Take 1 Univers 50 mg 2-07 tablet by ity of tablet 00:00: mouth [place] 00 daily. Medical Branch benzonatate 2020-09 Yes [id number] 200mg Take 1 Univers 200 mg 2-07 capsule by ity of capsule 00:00: mouth 3 00 (three) Medical times Branch daily as needed for Cough. albuterol 2020-09 Yes [id number] 2{puff} Inhale 2 Univers 90 2-07 Puffs ity of mcg/actuati 00:00: every 4 [place] as on inhaler 00 (four) Medical hours as Branch needed for Wheezing or Shortness of Breath. predniSONE 2020-09 Yes [id number] 50mg Take 1 Univers 50 mg 2-07 tablet by ity of tablet 00:00: mouth [place] 00 daily. Medical Branch benzonatate 2020-09 Yes [id number] 200mg Take 1 Univers 200 mg 2-07 capsule by ity of capsule 00:00: mouth 3 [place] 00 (three) Medical times Branch daily as needed for Cough. albuterol 2020-09 Yes [id number] 2{puff} Inhale 2 Univers 90 2-07 Puffs ity of mcg/actuati 00:00: every 4 [place] as on inhaler 00 (four) Medical hours as Branch needed for Wheezing or Shortness of Breath. predniSONE 2020-09 Yes [id number] 50mg Take 1 Univers 50 mg 2-07 tablet by ity of tablet 00:00: mouth [place] 00 daily. Medical Branch benzonatate 2020-09 Yes [id number] 200mg Take 1 Univers 200 mg 2-07 capsule by ity of capsule 00:00: mouth 3 [place] 00 (three) Medical times Branch daily as needed for Cough. albuterol 2020-09 Yes [id number] 2{puff} Inhale 2 Univers 90 2-07 Puffs ity of mcg/actuati 00:00: every 4 [place] as on inhaler 00 (four) Medical hours as Branch needed for Wheezing or Shortness of Breath. predniSONE 2020-09 Yes [id number] 50mg Take 1 Univers 50 mg 2-07 tablet by ity of tablet 00:00: mouth [place] 00 daily. Medical Branch benzonatate 2020-09 Yes [id number] 200mg Take 1 Univers 200 mg 2-07 capsule by ity of capsule 00:00: mouth 3 [place] 00 (three) Medical times Branch daily as needed for Cough. albuterol 2020-09- No [id number] 2.5mg Inhale 3 Univers 2.5 mg /3 2-07 04-15 mL every 4 ity of mL (0.083 00:00: 00:00 (four) [place] %) 00 :00 hours. May Medical nebulizer also Branch solution nebulize one extra every 6 hours. famotidine 2020-09 Yes [id number] 40mg Take 1 Univers 40 mg 1-16 tablet by ity of tablet 00:00: mouth [place] 00 daily. Medical Branch famotidine 2020-09 Yes [id number] 40mg Take 1 Univers 40 mg 1-16 tablet by ity of tablet 00:00: mouth [place] 00 daily. Medical Branch famotidine 2020-09 Yes [id number] 40mg Take 1 Univers 40 mg 1-16 tablet by ity of tablet 00:00: mouth [place] 00 daily. Medical Branch famotidine 2020-09 Yes [id number] 40mg Take 1 Univers 40 mg 1-16 tablet by ity of tablet 00:00: mouth [place] 00 daily. Medical Branch famotidine 2020-09 Yes [id number] 40mg Take 1 Univers 40 mg 1-16 tablet by ity of tablet 00:00: mouth [place] 00 daily. [facility] famotidine 2020-09 Yes [id number] 40mg Take 1 Univers 40 mg 1-16 tablet by ity of tablet 00:00: mouth [place] 00 daily. [facility] famotidine 2020-09 Yes [id number] 40mg Take 1 Univers 40 mg 1-16 tablet by ity of tablet 00:00: mouth [place] 00 daily. [facility] famotidine 2020-09 Yes [id number] 40mg Take 1 Univers 40 mg 1-16 tablet by ity of tablet 00:00: mouth [place] 00 daily. [facility] famotidine 2020-09 Yes [id number] 40mg Take 1 Univers 40 mg 1-16 tablet by ity of tablet 00:00: mouth [place] 00 daily. [facility] famotidine 2020-09 Yes [id number] 40mg Take 1 Univers 40 mg 1-16 tablet by ity of tablet 00:00: mouth [place] 00 daily. [facility] famotidine 2020-09 Yes [id number] 40mg Take 1 Univers 40 mg 1-16 tablet by ity of tablet 00:00: mouth [place] 00 daily. [facility] famotidine 2020-09 Yes [id number] 40mg Take 1 Univers 40 mg 1-16 tablet by ity of tablet 00:00: mouth [place] 00 daily. [facility] famotidine 2020-09 Yes [id number] 40mg Take 1 Univers 40 mg 1-16 tablet by ity of tablet 00:00: mouth [place] 00 daily. Medical Branch budesonide- 2020-09 Yes 2{puff} Q.5D Inhale 2 [...] on inhaler times daily. budesonide- 2020-09 Yes [id number] 2{puff} Inhale 2 Univers formoteroL 0-14 Puffs 2 ity of (SYMBICORT) 00:00: (two) [place] 160-4.5 00 times Medical mcg/actuati daily. Branch on inhaler albuterol 2020-09 Yes 2{puff} Inhale 2 U nivers (PROAIR 0-14 Puffs ity of HFA) 90 00:00: every 6 [place] mcg/actuati 00 (six) Medical on inhaler hours as Branc h needed for Wheezing or Shortness of Breath. budesonide- 2020-09 Yes [id number] 2{puff} Inhale 2 Univers formoteroL 0-14 Puffs 2 ity of (SYMBICORT) 00:00: (two) [place] 160-4.5 00 times Medical mcg/actuati daily. Branch on inhaler albuterol 2020-09 Yes 2{puff} Inhale 2 U nivers (PROAIR 0-14 Puffs ity of HFA) 90 00:00: every 6 [place] mcg/actuati 00 (six) Medical on inhaler hours as Branc h needed for Wheezing or Shortness of Breath. budesonide- 2020-09 Yes [id number] 2{puff} Inhale 2 Univers formoteroL 0-14 Puffs 2 ity of (SYMBICORT) 00:00: (two) [place] 160-4.5 00 times Medical mcg/actuati daily. Branch on inhaler albuterol 2020-09 Yes 2{puff} Inhale 2 U nivers (PROAIR 0-14 Puffs ity of HFA) 90 00:00: every 6 [place] mcg/actuati 00 (six) Medical on inhaler hours as Branc h needed for Wheezing or Shortness of Breath. budesonide- 2020-09 Yes [id number] 2{puff} Inhale 2 Univers formoteroL 0-14 Puffs 2 ity of (SYMBICORT) 00:00: (two) [place] 160-4.5 00 times Medical mcg/actuati daily. Branch on inhaler albuterol 2020-09 Yes 2{puff} Inhale 2 U nivers (PROAIR 0-14 Puffs ity of HFA) 90 00:00: every 6 [place] mcg/actuati 00 (six) Medical on inhaler hours as Branc h needed for Wheezing or Shortness of Breath. budesonide- 2020-09 Yes [id number] 2{puff} Inhale 2 Univers formoteroL 0-14 Puffs 2 ity of (SYMBICORT) 00:00: (two) [place] 160-4.5 00 times Medical mcg/actuati daily. Branch on inhaler albuterol 2020-09 Yes 2{puff} Inhale 2 U nivers (PROAIR 0-14 Puffs ity of HFA) 90 00:00: every 6 [place] mcg/actuati 00 (six) Medical on inhaler hours as Branc h needed for Wheezing or Shortness of Breath. budesonide- 2020-09 Yes [id number] 2{puff} Inhale 2 Univers formoteroL 0-14 Puffs 2 ity of (SYMBICORT) 00:00: (two) [place] 160-4.5 00 times Medical mcg/actuati daily. Branch on inhaler albuterol 2020-09 Yes 2{puff} Inhale 2 U nivers (PROAIR 0-14 Puffs ity of HFA) 90 00:00: every 6 [place] mcg/actuati 00 (six) Medical on inhaler hours as Branc h needed for Wheezing or Shortness of Breath. budesonide- 2020-09 Yes [id number] 2{puff} Inhale 2 Univers formoteroL 0-14 Puffs 2 ity of (SYMBICORT) 00:00: (two) [place] 160-4.5 00 times Medical mcg/actuati daily. Branch on inhaler albuterol 2020-09 Yes 2{puff} Inhale 2 U nivers (PROAIR 0-14 Puffs ity of HFA) 90 00:00: every 6 [place] mcg/actuati 00 (six) Medical on inhaler hours as Branc h needed for Wheezing or Shortness of Breath. budesonide- 2020-09 Yes [id number] 2{puff} Inhale 2 Univers formoteroL 0-14 Puffs 2 ity of (SYMBICORT) 00:00: (two) [place] 160-4.5 00 times Medical mcg/actuati daily. Branch on inhaler albuterol 2020-09 Yes 2{puff} Inhale 2 U nivers (PROAIR 0-14 Puffs ity of HFA) 90 00:00: every 6 [place] mcg/actuati 00 (six) Medical on inhaler hours as Branc h needed for Wheezing or Shortness of Breath. budesonide- 2020-09 Yes [id number] 2{puff} Inhale 2 Univers formoteroL 0-14 Puffs 2 ity of (SYMBICORT) 00:00: (two) [place] 160-4.5 00 times Medical mcg/actuati daily. Branch on inhaler albuterol 2020-09 Yes 2{puff} Inhale 2 U nivers (PROAIR 0-14 Puffs ity of HFA) 90 00:00: every 6 [place] mcg/actuati 00 (six) Medical on inhaler hours as Branc h needed for Wheezing or Shortness of Breath. budesonide- 2020-09 Yes [id number] 2{puff} Inhale 2 Univers formoteroL 0-14 Puffs 2 ity of (SYMBICORT) 00:00: (two) [place] 160-4.5 00 times Medical mcg/actuati daily. Branch on inhaler albuterol 2020-09 Yes 2{puff} Inhale 2 U nivers (PROAIR 0-14 Puffs ity of HFA) 90 00:00: every 6 [place] mcg/actuati 00 (six) Medical on inhaler hours as Branc h needed for Wheezing or Shortness of Breath. budesonide- 2020-09 Yes [id number] 2{puff} Inhale 2 Univers formoteroL 0-14 Puffs 2 ity of (SYMBICORT) 00:00: (two) [place] 160-4.5 00 times Medical mcg/actuati daily. Branch on inhaler albuterol 2020-09 Yes 2{puff} Inhale 2 U nivers (PROAIR 0-14 Puffs ity of HFA) 90 00:00: every 6 [place] mcg/actuati 00 (six) Medical on inhaler hours as Branc h needed for Wheezing or Shortness of Breath. budesonide- 2020-09 Yes [id number] 2{puff} Inhale 2 Univers formoteroL 0-14 Puffs 2 ity of (SYMBICORT) 00:00: (two) [place] 160-4.5 00 times Medical mcg/actuati daily. Branch on inhaler albuterol 2020-09 Yes 2{puff} Inhale 2 U nivers (PROAIR 0-14 Puffs ity of HFA) 90 00:00: every 6 [place] mcg/actuati 00 (six) Medical on inhaler hours as Branc h needed for Wheezing or Shortness of Breath. budesonide- 2020-09 Yes [id number] 2{puff} Inhale 2 [facility] formoteroL 0-14 Puffs 2 ity of (SYMBICORT) 00:00: (two) [place] 160-4.5 00 times Medical mcg/actuati daily. Branch on inhaler albuterol 2020-09 Yes 2{puff} Inhale 2 U nivers (PROAIR 0-14 Puffs ity of HFA) 90 00:00: every 6 [place] mcg/actuati 00 (six) Medical on inhaler hours as Branc h needed for Wheezing or Shortness of Breath. budesonide- 2020-09 Yes [id number] 2{puff} Inhale 2 [facility] formoteroL 0-14 Puffs 2 ity of (SYMBICORT) 00:00: (two) [place] 160-4.5 00 times Medical mcg/actuati daily. Branch on inhaler albuterol 2020-09 Yes 2{puff} Inhale 2 U nivers (PROAIR 0-14 Puffs ity of HFA) 90 00:00: every 6 [place] mcg/actuati 00 (six) Medical on inhaler hours as Branc h needed for Wheezing or Shortness of Breath. budesonide- 2020-09 Yes [id number] 2{puff} Inhale 2 [facility] formoteroL 0-14 Puffs 2 ity of (SYMBICORT) 00:00: (two) [place] 160-4.5 00 times Medical mcg/actuati daily. Branch on inhaler albuterol 2020-09 Yes 2{puff} Inhale 2 U nivers (PROAIR 0-14 Puffs ity of HFA) 90 00:00: every 6 [place] mcg/actuati 00 (six) Medical on inhaler hours as Branc h needed for Wheezing or Shortness of Breath. amitriptyli Yes 3{tbl} QD Take [address] [facility] (ELAVIL) 9-13 tablets by Jaqui kes - 50 MG 00:00: mouth Medical tablet 00 nightly. [place] amitriptyli Yes 3{tbl} QD Take [address] [facility] [address] [facility] (ELAVIL) 9-13 tablets by Jaqui kes - 50 MG 00:00: mouth Medical tablet 00 nightly. [place] amitriptyli Yes [id number] 150mg Take 3 [facility] ne 50 mg 9-13 tablets by ity o f tablet 00:00: mouth at [place] 00 bedtime. Medical Branch amitriptyli Yes [id number] 150mg Take 3 [facility] ne 50 mg 9-13 tablets by ity o f tablet 00:00: mouth at [place] 00 bedtime. Medical Branch amitriptyli Yes [id number] 150mg Take 3 [facility] ne 50 mg 9-13 tablets by ity o f tablet 00:00: mouth at [place] 00 bedtime. Medical Branch amitriptyli Yes [id number] 150mg Take 3 [facility] ne 50 mg 9-13 tablets by ity o f tablet 00:00: mouth at [place] 00 bedtime. Medical Branch amitriptyli Yes [id number] 150mg Take 3 [facility] ne 50 mg 9-13 tablets by ity o f tablet 00:00: mouth at [place] 00 bedtime. Medical Branch amitriptyli Yes [id number] 150mg Take 3 [facility] ne 50 mg 9-13 tablets by ity o f tablet 00:00: mouth at [place] 00 bedtime. Medical Branch amitriptyli Yes [id number] 150mg Take 3 [facility] ne 50 mg 9-13 tablets by ity o f tablet 00:00: mouth at [place] 00 bedtime. Medical Branch amitriptyli Yes [id number] 150mg Take 3 [facility] ne 50 mg 9-13 tablets by ity o f tablet 00:00: mouth at [place] 00 bedtime. Medical Branch amitriptyli Yes [id number] 150mg Take 3 [facility] ne 50 mg 9-13 tablets by ity o f tablet 00:00: mouth at [place] 00 bedtime. Medical Branch amitriptyli Yes [id number] 150mg Take 3 [facility] ne 50 mg 9-13 tablets by ity o f tablet 00:00: mouth at [place] 00 bedtime. Medical Branch amitriptyli 0 Yes [id number] 150mg Take 3 [facility] ne 50 mg 9-13 tablets by ity o f tablet 00:00: mouth at [place] [address] bedtime. Medical Branch amitriptyli 0 Yes [id number] 150mg Take 3 [facility] ne 50 mg 9-13 tablets by ity o f tablet 00:00: mouth at [place] [address] bedtime. Medical Branch amitriptyli 2020-0 Yes [id number] 150mg Take 3 [facility] ne 50 mg 9-13 tablets by ity o f tablet 00:00: mouth at [place] [address] bedtime. Medical Branch amitriptyli Yes [id number] 150mg Take 3 [facility] ne 50 mg 9-13 tablets by ity o f tablet 00:00: mouth at [place] [address] bedtime. Medical Branch amitriptyli Yes [id number] 150mg Take 3 [facility] ne 50 mg 9-13 tablets by ity o f tablet 00:00: mouth at [place] [address] bedtime. Medical Branch ARIPiprazol Yes 2mg QD Take [address] [facility] (ABILIFY) 8-26 by mouth [place] [facility] - 2 MG tablet 00:00: nightly. [facility] dic[facility] 00 [place] ARIPiprazol Yes 2mg QD Take [address] [facility] (ABILIFY) 8-26 by mouth [place] [facility] - 2 MG tablet 00:00: nightly. [facility] 00 [place] ARIPiprazol Yes 2mg Take 2 mg U nivers e 2 mg 8-26 by mouth ity of tablet 00:00: at [place] [address] bedtime. Medical Branch ARIPiprazol 0 Yes 2mg Take 2 mg U nivers e 2 mg 8-26 by mouth ity of tablet 00:00: at [place] [address] bedtime. Medical Branch ARIPiprazol 0 Yes 2mg Take 2 mg U nivers e 2 mg 8-26 by mouth ity of tablet 00:00: at [place] [address] bedtime. Medical Branch ARIPiprazol 0 Yes 2mg Take 2 mg U nivers e 2 mg 8-26 by mouth ity of tablet 00:00: at [place] [address] bedtime. Medical Branch ARIPiprazol 0 Yes 2mg Take 2 mg U nivers e 2 mg 8-26 by mouth ity of tablet 00:00: at [place] [address] bedtime. Medical Branch ARIPiprazol 0 Yes 2mg Take 2 mg U nivers e 2 mg 8-26 by mouth ity of tablet 00:00: at [place] [address] bedtime. Medical Branch ARIPiprazol 0 Yes 2mg Take 2 mg U nivers e 2 mg 8-26 by mouth ity of tablet 00:00: at [place] [address] bedtime. Medical Branch ARIPiprazol 0 Yes 2mg Take 2 mg U nivers e 2 mg 8-26 by mouth ity of tablet 00:00: at [place] [address] bedtime. Medical Branch ARIPiprazol 0 Yes 2mg Take 2 mg U nivers e 2 mg 8-26 by mouth ity of tablet 00:00: at [place] [address] bedtime. Medical Branch ARIPiprazol 0 Yes 2mg Take 2 mg U nivers e 2 mg 8-26 by mouth ity of tablet 00:00: at [place] [address] bedtime. Medical Branch ARIPiprazol 0 Yes 2mg Take 2 mg U nivers e 2 mg 8-26 by mouth ity of tablet 00:00: at [place] [address] bedtime. Medical Branch ARIPiprazol 0 Yes 2mg Take 2 mg U nivers e 2 mg 8-26 by mouth ity of tablet 00:00: at [place] [address] bedtime. Medical Branch ARIPiprazol 0 Yes 2mg Take 2 mg U nivers e 2 mg 8-26 by mouth ity of tablet 00:00: at [place] [address] bedtime. Medical Branch budesonide 2020-0 2021- No [id number] 1mg Use 2 mL [facility] 1 mg/2 mL 8-17 10-14 as ity of nebulizer 00:00: 00:00 directed [place] as solution 00 :00 every 8 Medical (eight) Branch hours as needed (shortness of breath). CLOPIDOGREL 2020-0 Yes [id number] TAKE ONE [facility] 75 mg 4-07 TABLET BY ity of tablet 00:00: MOUTH [place] DAILY Medical Branch CLOPIDOGREL 2020-0 Yes [id number] TAKE ONE [facility] 75 mg 4-07 TABLET BY ity of tablet 00:00: MOUTH [place] 00 DAILY Medical Branch CLOPIDOGREL 2021-0 Yes [id number] TAKE ONE [facility] 75 mg 4-07 TABLET BY ity of tablet 00:00: MOUTH [place] 00 DAILY Medical Branch CLOPIDOGREL 2021-0 Yes [id number] TAKE ONE [facility] 75 mg 4-07 TABLET BY ity of tablet 00:00: MOUTH [place] DAILY Medical Branch CLOPIDOGREL 2021-0 Yes [id number] TAKE ONE [facility] 75 mg 4-07 TABLET BY ity of tablet 00:00: MOUTH [place] DAILY Medical Branch CLOPIDOGREL 2021-0 Yes [id number] TAKE ONE [facility] 75 mg 4-07 TABLET BY ity of tablet 00:00: MOUTH [place] DAILY Medical Branch CLOPIDOGREL 2021-0 2021- No [id number] TAKE ONE [facility] 75 mg 4-07 12-07 TABLET BY ity of tablet 00:00: 00:00 MOUTH [place] 00 :00 DAILY Medical Branch benzonatate 1-0 Yes [id number] 100mg Take 1 [facility] (TESSALON 1-27 capsule by ity of PERLES) 100 00:00: mouth 3 [place] as mg capsule 00 (three) Medica l times Branch daily. benzonatate 2020-0 Yes [id number] 100mg Take 1 [facility] (TESSALON 1-27 capsule by ity of PERLES) 100 00:00: mouth 3 [place] mg capsule 00 (three) Medica l times Branch daily. benzonatate 2020-0 Yes [id number] 100mg Take 1 [facility] (TESSALON 1-27 capsule by ity of PERLES) 100 00:00: mouth 3 [place] mg capsule 00 (three) Medica l times Branch daily. benzonatate 2020-0 Yes [id number] 100mg Take 1 [facility] (TESSALON 1-27 capsule by ity of PERLES) 100 00:00: mouth 3 [place] mg capsule 00 (three) Medica l times Branch daily. benzonatate 2020-0 Yes [id number] 100mg Take 1 [facility] (TESSALON 1-27 capsule by ity of PERLES) 100 00:00: mouth 3 [place] mg capsule 00 (three) Medica l times Branch daily. benzonatate 2020-0 Yes [id number] 100mg Take 1 [facility] (TESSALON 1-27 capsule by ity of PERLES) 100 00:00: mouth 3 [place] mg capsule 00 (three) Medica l times Branch daily. benzonatate 2020-0 Yes [id number] 100mg Take 1 [facility] (TESSALON 1-27 capsule by ity of PERLES) 100 00:00: mouth 3 [place] mg capsule 00 (three) Medica l times Branch daily. benzonatate 2020-0 Yes [id number] 100mg Take 1 [facility] (TESSALON 1-27 capsule by ity of PERLES) 100 00:00: mouth 3 [place] mg capsule 00 (three) Medica l times Branch daily. benzonatate 2020-0 Yes [id number] 100mg Take 1 [facility] (TESSALON 1-27 capsule by ity of PERLES) 100 00:00: mouth 3 [place] mg capsule 00 (three) Medica l times Branch daily. benzonatate 2020-0 Yes [id number] 100mg Take 1 [facility] (TESSALON 1-27 capsule by ity of PERLES) 100 00:00: mouth 3 [place] mg capsule 00 (three) Medica l times Branch daily. benzonatate 2020-0 Yes [id number] 100mg Take 1 [facility] (TESSALON 1-27 capsule by ity of PERLES) 100 00:00: mouth 3 [place] mg capsule 00 (three) Medica l times Branch daily. benzonatate 2020-0 Yes [id number] 100mg Take 1 [facility] (TESSALON 1-27 capsule by ity of PERLES) 100 00:00: mouth 3 [place] mg capsule 00 (three) Medica l times Branch daily. benzonatate 2020-0 Yes [id number] 100mg Take 1 [facility] (TESSALON 1-27 capsule by ity of PERLES) 100 00:00: mouth 3 [place] mg capsule 00 (three) Medica l times Branch daily. benzonatate 2020-0 Yes [id number] 100mg Take 1 [facility] (TESSALON 1-27 capsule by ity of PERLES) 100 00:00: mouth 3 [place] mg capsule 00 (three) Medica l times Branch daily. benzonatate 2020-0 Yes [id number] 100mg Take 1 [facility] (TESSALON 1-27 capsule by ity of PERLES) 100 00:00: mouth 3 [place] as mg capsule 00 (three) Medica l times Branch daily. atorvastati 2020-0 Yes 20mg QD Take [address] [facility] (LIPITOR) 1-07 by mouth [facility] - 20 MG 00:00: daily. Medical tablet 00 [place] atorvasta Yes 20mg QD Take [address] [facility] (LIPITOR) 1-07 by mouth [facility] - 20 MG 00:00: daily. Medical tablet 00 [place] atorvasta 0 Yes [id number] 20mg Take 1 [facility] n 20 mg 1-07 tablet by ity of tablet 00:00: mouth at [place] 00 bedtime. Medical Branch levothyroxi 2020-0 Yes [id number] 25ug Take 1 [facility] ne 25 mcg 1-07 tablet by ity o f tablet 00:00: mouth [place] 00 every Medical morning. [place] atorvasta Yes [id number] 20mg Take 1 [facility] n 20 mg 1-07 tablet by ity of tablet 00:00: mouth at [place] 00 bedtime. Medical Branch levothyroxi 2020-0 Yes [id number] 25ug Take 1 [facility] ne 25 mcg 1-07 tablet by ity o f tablet 00:00: mouth [place] 00 every Medical morning. [place] atorvasta 0 Yes [id number] 20mg Take 1 [facility] n 20 mg 1-07 tablet by ity of tablet 00:00: mouth at [place] 00 bedtime. Medical Branch levothyroxi 0 Yes [id number] 25ug Take 1 [facility] ne 25 mcg 1-07 tablet by ity o f tablet 00:00: mouth [place] 00 every Medical morning. [place] atorvasta 0 Yes [id number] 20mg Take 1 [facility] n 20 mg 1-07 tablet by ity of tablet 00:00: mouth at [place] 00 bedtime. Medical Branch levothyroxi 2020-0 Yes [id number] 25ug Take 1 [facility] ne 25 mcg 1-07 tablet by ity o f tablet 00:00: mouth [place] 00 every Medical morning. [place] atorvastati 0 Yes [id number] 20mg Take 1 [facility] n 20 mg 1-07 tablet by ity of tablet 00:00: mouth at [place] 00 bedtime. Medical Branch levothyroxi 2020-0 Yes [id number] 25ug Take 1 [facility] ne 25 mcg 1-07 tablet by ity o f tablet 00:00: mouth [place] 00 every Medical morning. [place] atorvastati 0 Yes [id number] 20mg Take 1 [facility] n 20 mg 1-07 tablet by ity of tablet 00:00: mouth at [place] 00 bedtime. Medical Branch levothyroxi 0 Yes [id number] 25ug Take 1 [facility] ne 25 mcg 1-07 tablet by ity o f tablet 00:00: mouth [place] 00 every Medical morning. Branch atorvastati 0 Yes [id number] 20mg Take 1 [facility] n 20 mg 1-07 tablet by ity of tablet 00:00: mouth at [place] 00 bedtime. Medical Branch atorvastati 0 Yes [id number] 20mg Take 1 [facility] n 20 mg 1-07 tablet by ity of tablet 00:00: mouth at [place] 00 bedtime. Medical Branch atorvastati 0 Yes [id number] 20mg Take 1 [facility] n 20 mg 1-07 tablet by ity of tablet 00:00: mouth at [place] 00 bedtime. Medical Branch atorvastati 0 Yes [id number] 20mg Take 1 [facility] n 20 mg 1-07 tablet by ity of tablet 00:00: mouth at [place] 00 bedtime. Medical Branch atorvastati 0 Yes [id number] 20mg Take 1 [facility] n 20 mg 1-07 tablet by ity of tablet 00:00: mouth at [place] 00 bedtime. Medical Branch atorvastati 0 Yes [id number] 20mg Take 1 [facility] n 20 mg 1-07 tablet by ity of tablet 00:00: mouth at [place] 00 bedtime. Medical Branch atorvastati 0 Yes [id number] 20mg Take 1 [facility] n 20 mg 1-07 tablet by ity of tablet 00:00: mouth at [place] 00 bedtime. Medical Branch atorvastati 0 Yes [id number] 20mg Take 1 [facility] n 20 mg 1-07 tablet by ity of tablet 00:00: mouth at [place] 00 bedtime. Medical Branch atorvastati 0 Yes [id number] 20mg Take 1 [facility] n 20 mg 1-07 tablet by ity of tablet 00:00: mouth at [place] 00 bedtime. Medical Branch levothyroxi 2020-0 2020- No [id number] 25ug Take 1 [facility] ne 25 mcg 1-07 12-09 tablet by ity of tablet 00:00: 00:00 mouth [place] 00 :00 every Medical morning. Branch ipratropium 2020-1 Yes [id number] .5mg Inhale 2.5 [facility] 0.02 % 2-18 mL every 8 ity of nebulizer 00:00: (eight) [place] solution 00 hours as Medical needed for Branch Wheezing or Shortness of Breath. ipratropium 2020-1 Yes [id number] .5mg Inhale 2.5 [facility] 0.02 % 2-18 mL every 8 ity of nebulizer 00:00: (eight) [place] solution 00 hours as Medical needed for Branch Wheezing or Shortness of Breath. ipratropium 2020-1 Yes [id number] .5mg Inhale 2.5 [facility] 0.02 % 2-18 mL every 8 ity of nebulizer 00:00: (eight) [place] solution 00 hours as Medical needed for Branch Wheezing or Shortness of Breath. ipratropium 2020-1 Yes [id number] .5mg Inhale 2.5 [facility] 0.02 % 2-18 mL every 8 ity of nebulizer 00:00: (eight) [place] solution 00 hours as Medical needed for Branch Wheezing or Shortness of Breath. ipratropium 2020-1 Yes [id number] .5mg Inhale 2.5 [facility] 0.02 % 2-18 mL every 8 ity of nebulizer 00:00: (eight) [place] solution 00 hours as Medical needed for Branch Wheezing or Shortness of Breath. ipratropium 2020-1 Yes [id number] .5mg Inhale 2.5 [facility] 0.02 % 2-18 mL every 8 ity of nebulizer 00:00: (eight) [place] solution 00 hours as Medical needed for Branch Wheezing or Shortness of Breath. ipratropium 2020-1 Yes [id number] .5mg Inhale 2.5 [facility] 0.02 % 2-18 mL every 8 ity of nebulizer 00:00: (eight) [place] solution 00 hours as Medical needed for Branch Wheezing or Shortness of Breath. ipratropium 2020-1 Yes [id number] .5mg Inhale 2.5 [facility] 0.02 % 2-18 mL every 8 ity of nebulizer 00:00: (eight) [place] solution 00 hours as Medical needed for Branch Wheezing or Shortness of Breath. ipratropium 2020-1 Yes [id number] .5mg Inhale 2.5 [facility] 0.02 % 2-18 mL every 8 ity of nebulizer 00:00: (eight) [place] solution 00 hours as Medical needed for Branch Wheezing or Shortness of Breath. ipratropium 2020-1 Yes [id number] .5mg Inhale 2.5 [facility] 0.02 % 2-18 mL every 8 ity of nebulizer 00:00: (eight) [place] solution 00 hours as Medical needed for Branch Wheezing or Shortness of Breath. ipratropium 2020-1 Yes [id number] .5mg Inhale 2.5 [facility] 0.02 % 2-18 mL every 8 ity of nebulizer 00:00: (eight) [place] solution 00 hours as Medical needed for Branch Wheezing or Shortness of Breath. ipratropium 2020-1 Yes [id number] .5mg Inhale 2.5 [facility] 0.02 % 2-18 mL every 8 ity of nebulizer 00:00: (eight) [place] solution 00 hours as Medical needed for Branch Wheezing or Shortness of Breath. ipratropium 2020-1 Yes [id number] .5mg Inhale 2.5 Univers 0.02 % 2-18 mL every 8 ity of nebulizer 00:00: (eight) [place] solution 00 hours as Medical needed for Branch Wheezing or Shortness of Breath. ipratropium 2020-1 Yes [id number] .5mg Inhale 2.5 Univers 0.02 % 2-18 mL every 8 ity of nebulizer 00:00: (eight) [place] solution 00 hours as Medical needed for Branch Wheezing or Shortness of Breath. ipratropium 2020-1 Yes [id number] .5mg Inhale 2.5 Univers 0.02 % 2-18 mL every 8 ity of nebulizer 00:00: (eight) [place] solution 00 hours as Medical needed for Branch Wheezing or Shortness of Breath. aspirin 81 2020-1 Yes [id number] 81mg Take 1 Univers mg chewable 1-11 tablet by ity of tablet 00:00: mouth [place] 00 daily. Medical Branch aspirin 81 2020-1 Yes [id number] 81mg Take 1 [facility] mg chewable 1-11 tablet by ity of tablet 00:00: mouth [place] 00 daily. Medical Branch aspirin 81 2020-1 Yes [id number] 81mg Take 1 [facility] mg chewable 1-11 tablet by ity of tablet 00:00: mouth [place] 00 daily. Medical Branch aspirin 81 2020- Yes [id number] 81mg Take 1 [facility] mg chewable 1-11 tablet by ity of tablet 00:00: mouth [place] 00 daily. Medical Branch aspirin 81 2020- Yes [id number] 81mg Take 1 [facility] mg chewable 1-11 tablet by ity of tablet 00:00: mouth [place] 00 daily. Medical Branch aspirin 81 2020- Yes [id number] 81mg Take 1 [facility] mg chewable 1-11 tablet by ity of tablet 00:00: mouth [place] 00 daily. Medical Branch aspirin 81 2020- Yes [id number] 81mg Take 1 [facility] mg chewable 1-11 tablet by ity of tablet 00:00: mouth [place] 00 daily. Medical Branch aspirin 81 2020- Yes [id number] 81mg Take 1 [facility] mg chewable 1-11 tablet by ity of tablet 00:00: mouth [place] 00 daily. Medical Branch aspirin 81 2020- Yes [id number] 81mg Take 1 [facility] mg chewable 1-11 tablet by ity of tablet 00:00: mouth [place] 00 daily. Medical Branch aspirin 81 2020- Yes [id number] 81mg Take 1 [facility] mg chewable 1-11 tablet by ity of tablet 00:00: mouth [place] 00 daily. Medical Branch aspirin 81 2020- Yes [id number] 81mg Take 1 [facility] mg chewable 1-11 tablet by ity of tablet 00:00: mouth [place] 00 daily. Medical Branch aspirin 81 2020- Yes [id number] 81mg Take 1 [facility] mg chewable 1-11 tablet by ity of tablet 00:00: mouth [place] 00 daily. Medical Branch aspirin 81 2020- Yes [id number] 81mg Take 1 [facility] mg chewable 1-11 tablet by ity of tablet 00:00: mouth [place] 00 daily. Medical Branch aspirin 81 2020- Yes [id number] 81mg Take 1 [facility] mg chewable 1-11 tablet by ity of tablet 00:00: mouth [place] 00 daily. Medical Branch aspirin 81 2020- Yes [id number] 81mg Take 1 [facility] mg chewable 1-11 tablet by ity of tablet 00:00: mouth [place] 00 daily. Medical Branch famotidine 2020- Yes [id number] 20mg Take 2.5 Univers 40 mg/5 mL 1-10 mL by ity of (8 mg/mL) 00:00: mouth [place] suspension 00 every 12 Medic al (twelve) Branch hours. famotidine 2019-09 Yes [id number] 20mg Take 2.5 Univers 40 mg/5 mL 1-10 mL by ity of (8 mg/mL) 00:00: mouth [place] suspension 00 every 12 Medic al (twelve) Branch hours. famotidine 2019-09- No [id number] 20mg Take 2.5 [facility] 40 mg/5 mL 1-10 11-16 mL by ity of (8 mg/mL) 00:00: 00:00 mouth [place] suspension 00 :00 every 12 Medic al (twelve) Branch hours. PROAIR HFA 2018-09- No [id number] INHALE TWO Univers 90 0-11 10-14 PUFFS BY ity of mcg/actuati 00:00: 00:00 MOUTH [place] on inhaler 00 :00 EVERY 6 Medica l HOURS Branch NEEDED FOR WHEEZING OR FOR SHORTNESS OF BREATH Immunizations Ordered Filled Immunization Date Status Comments [facility] e Immunization Name Name SARS-COV-2 COVID-19 2020-11-30 Completed Unive rsity of PFIZER VACCINE 00:00:00 [facility] SARS-COV-2 COVID-19 2020-11-30 Completed Unive rsity of PFIZER VACCINE 00:00:00 [facility] SARS-COV-2 COVID-19 2020-11-30 Completed Unive rsity of PFIZER VACCINE 00:00:00 [facility] SARS-COV-2 COVID-19 2020-11-30 Completed Unive rsity of PFIZER VACCINE 00:00:00 [facility] SARS-COV-2 COVID-19 2020-11-30 Completed Unive rsity of PFIZER VACCINE 00:00:00 [facility] SARS-COV-2 COVID-19 2020-11-30 Completed Unive rsity of PFIZER VACCINE 00:00:00 [facility] SARS-COV-2 COVID-19 2020-11-30 Completed Unive rsity of PFIZER VACCINE 00:00:00 [facility] SARS-COV-2 COVID-19 2020-11-30 Completed Unive rsity of PFIZER VACCINE 00:00:00 [facility] SARS-COV-2 COVID-19 2020-11-30 Completed Unive rsity of PFIZER VACCINE 00:00:00 [facility] SARS-COV-2 COVID-19 2020-11-30 Completed Unive rsity of PFIZER VACCINE 00:00:00 [facility] Branch SARS-COV-2 COVID-19 2020-11-30 Completed Unive rsity of PFIZER VACCINE 00:00:00 [facility] SARS-COV-2 COVID-19 2020-11-30 Completed Unive rsity of PFIZER VACCINE 00:00:00 [facility] Branch SARS-COV-2 COVID-19 2020-11-30 Completed Unive rsity of PFIZER VACCINE 00:00:00 [facility] Branch SARS-COV-2 COVID-19 2020-11-30 Completed Unive rsity of PFIZER VACCINE 00:00:00 [facility] Branch SARS-COV-2 COVID-19 2020-11-30 Completed Unive rsity of PFIZER VACCINE 00:00:00 [facility] SARS-COV-2 COVID-19 2020-11-09 Completed Unive rsity of PFIZER VACCINE 00:00:00 [facility] SARS-COV-2 COVID-19 2020-11-09 Completed Unive rsity of PFIZER VACCINE 00:00:00 [facility] SARS-COV-2 COVID-19 2020-11-09 Completed Unive rsity of PFIZER VACCINE 00:00:00 [facility] SARS-COV-2 COVID-19 2020-11-09 Completed Unive rsity of PFIZER VACCINE 00:00:00 [facility] SARS-COV-2 COVID-19 2020-11-09 Completed Unive rsity of PFIZER VACCINE 00:00:00 [facility] Branch SARS-COV-2 COVID-19 2020-11-09 Completed Unive rsity of PFIZER VACCINE 00:00:00 [facility] SARS-COV-2 COVID-19 2020-11-09 Completed Unive rsity of PFIZER VACCINE 00:00:00 [facility] SARS-COV-2 COVID-19 2020-11-09 Completed Unive rsity of PFIZER VACCINE 00:00:00 [facility] SARS-COV-2 COVID-19 2020-11-09 Completed Unive rsity of PFIZER VACCINE 00:00:00 [facility] SARS-COV-2 COVID-19 2020-11-09 Completed Unive rsity of PFIZER VACCINE 00:00:00 [facility] SARS-COV-2 COVID-19 2020-11-09 Completed Unive rsity of PFIZER VACCINE 00:00:00 [facility] SARS-COV-2 COVID-19 2020-11-09 Completed Unive rsity of PFIZER VACCINE 00:00:00 [facility] SARS-COV-2 COVID-19 2020-11-09 Completed Unive rsity of PFIZER VACCINE 00:00:00 [facility] SARS-COV-2 COVID-19 2020-11-09 Completed Unive rsity of PFIZER VACCINE 00:00:00 [facility] SARS-COV-2 COVID-19 2020-11-09 Completed Unive rsity of PFIZER VACCINE 00:00:00 [facility] Influenza Virus 2020-08-19 Completed Universit y of Vaccine Quad .5 mL 00:00:00 [place] [facility] IM 6+ MO Branch Influenza Virus [...] y of Vaccine Quad .5 mL 00:00:00 [place] Medical IM 6+ MO Branch Influenza Virus 2019-08-20 Completed Universit y of Vaccine Quad .5 mL 00:00:00 [place] Medical IM 6+ MO Branch Influenza Virus 2018-06-18 Completed Universit y of Vaccine Quad IM 3+ 00:00:00 [facility] Pneumococcal 2018-06-18 Completed University o f Polysaccharide, 00:00:00 [place] Med ical PPSV23 (PNEUMOVAX) Branch Influenza Virus 2018-06-18 Completed Universit y of Vaccine Quad IM 3+ 00:00:00 [facility] Pneumococcal 2018-06-18 Completed University o f Polysaccharide, 00:00:00 [place] Med ical PPSV23 (PNEUMOVAX) Branch Influenza Virus 2018-06-18 Completed Universit y of Vaccine Quad IM 3+ 00:00:00 [facility] Pneumococcal 2018-06-18 Completed University o f Polysaccharide, 00:00:00 [place] Med ical PPSV23 (PNEUMOVAX) Branch Influenza Virus 2018-06-18 Completed Universit y of Vaccine Quad IM 3+ 00:00:00 [facility] Pneumococcal 2018-06-18 Completed University o f Polysaccharide, 00:00:00 [place] Med ical PPSV23 (PNEUMOVAX) Branch Influenza Virus 2018-06-18 Completed Universit y of Vaccine Quad IM 3+ 00:00:00 [facility] Pneumococcal 2018-06-18 Completed University o f Polysaccharide, 00:00:00 [place] Med ical PPSV23 (PNEUMOVAX) Branch Influenza Virus 2018-06-18 Completed Universit y of Vaccine Quad IM 3+ 00:00:00 [facility] Pneumococcal 2018-06-18 Completed University o f Polysaccharide, 00:00:00 [place] Med ical PPSV23 (PNEUMOVAX) Branch Influenza Virus 2018-06-18 Completed Universit y of Vaccine Quad IM 3+ 00:00:00 [facility] Pneumococcal 2018-06-18 Completed University o f Polysaccharide, 00:00:00 [place] [facility] PPSV23 (PNEUMOVAX) Branch Influenza Virus 2018-06-18 Completed Universit y of Vaccine Quad IM 3+ 00:00:00 [facility] Pneumococcal 2018-06-18 Completed University o f Polysaccharide, 00:00:00 [place] [facility] PPSV23 (PNEUMOVAX) Branch Influenza Virus 2018-06-18 Completed Universit y of Vaccine Quad IM 3+ 00:00:00 [facility] Pneumococcal 2018-06-18 Completed University o f Polysaccharide, 00:00:00 [place] [facility] PPSV23 (PNEUMOVAX) Branch Influenza Virus 2018-06-18 Completed Universit y of Vaccine Quad IM 3+ 00:00:00 [facility] Pneumococcal 2018-06-18 Completed University o f Polysaccharide, 00:00:00 [place] [facility] PPSV23 (PNEUMOVAX) Branch Influenza Virus 2018-06-18 Completed Universit y of Vaccine Quad IM 3+ 00:00:00 [facility] Pneumococcal 2018-06-18 Completed University o f Polysaccharide, 00:00:00 [place] [facility] PPSV23 (PNEUMOVAX) Branch Influenza Virus 2018-06-18 Completed Universit y of Vaccine Quad IM 3+ 00:00:00 [facility] Pneumococcal 2018-06-18 Completed University o f Polysaccharide, 00:00:00 [place] [facility] PPSV23 (PNEUMOVAX) Branch Influenza Virus 2018-06-18 Completed Universit y of Vaccine Quad IM 3+ 00:00:00 [facility] Pneumococcal 2018-06-18 Completed University o f Polysaccharide, 00:00:00 [place] [facility] PPSV23 (PNEUMOVAX) Branch Influenza Virus 2018-06-18 Completed Universit y of Vaccine Quad IM 3+ 00:00:00 [facility] Pneumococcal 2018-06-18 Completed University o f Polysaccharide, 00:00:00 [place] [facility] PPSV23 (PNEUMOVAX) Branch Influenza Virus 2018-06-18 Completed Universit y of Vaccine Quad IM 3+ 00:00:00 [facility] Pneumococcal 2018-06-18 Completed University o f Polysaccharide, 00:00:00 [place] [facility] PPSV23 (PNEUMOVAX) Branch Influenza Virus 2017-10-17 Completed Universit y of Vaccine Quad ID 00:00:00 [place] [facility] 18-64 YRS Branch Influenza Virus 2017-10-17 Completed Universit y of Vaccine Quad ID 00:00:00 [place] [facility] 1862 [facility] Branch Influenza Virus 2017-10-17 Completed Universit y of Vaccine Quad ID 00:00:00 [place] [facility] 1862 YRS Branch Influenza Virus 2017-10-17 Completed Universit y of Vaccine Quad ID 00:00:00 [place] [facility] 18-64 YRS Branch Influenza Virus 2017-10-17 Completed Universit y of Vaccine Quad ID 00:00:00 [place] [facility] 18-64 YRS Branch Influenza Virus 2017-10-17 Completed Universit y of Vaccine Quad ID 00:00:00 [facility] ical 18-64 YRS Branch Influenza Virus 2017-10-17 Completed Universit y of Vaccine Quad ID 00:00:00 [facility] ical 18-64 YRS Branch Influenza Virus 2017-10-17 Completed Universit y of Vaccine Quad ID 00:00:00 [facility] ical 18-64 YRS Branch Influenza Virus 2017-10-17 Completed Universit y of Vaccine Quad ID 00:00:00 [facility] ical 18-64 YRS Branch Influenza Virus 2017-10-17 Completed Universit y of Vaccine Quad ID 00:00:00 [facility] ical 18-64 YRS [place] Influenza Virus 2017-10-17 Completed Universit y of Vaccine Quad ID 00:00:00 [facility] ica 18-64 YRS [place] Influenza Virus 2017-10-17 Completed Universit y of Vaccine Quad ID 00:00:00 [facility] ical 18-64 YRS [place] Influenza Virus 2017-10-17 Completed Universit y of Vaccine Quad ID 00:00:00 [facility] ica 18-64 YRS [place] Influenza Virus 2017-10-17 Completed Universit y of Vaccine Quad ID 00:00:00 [facility] ica 18-64 YRS [place] Influenza Virus 2017-10-17 Completed Universit y of Vaccine Quad ID 00:00:00 [facility] 18-64 YRS [place] Td 2017-02-25 Completed University of 00:00:00 [facility] Td 2017-02-25 Completed University of 00:00:00 [facility] Td 2017-02-25 Completed University of 00:00:00 [facility] Td 2017-02-25 Completed University of 00:00:00 [facility] Td 2017-02-25 Completed University of 00:00:00 [facility] Td 2017-02-25 Completed University of 00:00:00 [facility] Td 2017-02-25 Completed University of 00:00:00 [facility] Td 2017-02-25 Completed University of 00:00:00 [facility] Td 2017-02-25 Completed University of 00:00:00 [facility] Td 2017-02-25 Completed University of 00:00:00 [facility] Td 2017-02-25 Completed University of 00:00:00 [facility] Td 2017-02-25 Completed University of 00:00:00 [facility] Td 2017-02-25 Completed University of 00:00:00 [facility] [place] [facility] Td 2017-02-25 Completed University of 00:00:00 [facility] Branch Td 2017-02-25 Completed University of 00:00:00 [facility] Vital Signs Vital Name Observation Time Observation Value Comments Source HEIGHT 2021-09-08 09:00:00 155 cm WEIGHT 2021-09-08 04:00:00 66.316 kg HEIGHT 2021-09-08 09:00:00 155 cm WEIGHT 2021-09-08 04:00:00 66.316 kg Systolic blood 2021-08-24 03:50:00 122 mm[Hg] Univer sity of pressure [facility] Diastolic blood 2021-08-24 03:50:00 76 mm[Hg] Unive rsity of [facility] Heart rate 2021-08-24 03:50:00 104 /min [facility] Respiratory rate 2021-08-24 03:50:00 28 /min [facility] Oxygen saturation in 2021-08-24 03:50:00 91 /min [facility] Arterial blood by [facility] Pulse oximetry [place] Body temperature 2021-08-24 00:17:00 37.11 Suzy [facility] Body weight 2021-08-24 00:17:00 63.504 kg [facility] BMI 2021-08-24 00:17:00 26.45 kg/m2 [facility] Systolic blood 2021-08-23 23:09:00 119 mm[Hg] Univer sity of pressure [facility] Diastolic blood 2021-08-23 23:09:00 72 mm[Hg] Unive rsity of pressure [facility] Heart rate 2021-08-23 23:09:00 98 /min [facility] Body temperature 2021-08-23 23:09:00 36.89 Suzy [facility] 2021-08-23 23:09:00 22 /min [facility] Body height 2021-08-23 23:09:00 154.9 cm [facility] Body weight 2021-08-23 23:09:00 63.504 kg Universi ty of [facility] BMI 2021-08-23 23:09:00 26.45 kg/m2 Universi ty of [facility] Oxygen saturation in 2021-08-23 23:09:00 96 /min University of Arterial blood by [facility] Pulse oximetry Branch Systolic blood 2021-06-30 16:42:00 121 mm[Hg] Univer sity of pressure [facility] Diastolic blood 2021-06-30 16:42:00 84 mm[Hg] Unive rsity of [facility] Heart rate 2021-06-30 16:42:00 92 /min Universi ty of [facility] Respiratory rate 2021-06-30 16:42:00 22 /min Univ ersity of [facility] Body height 2021-06-30 16:42:00 152.4 cm Universi ty [facility] Body weight 2021-06-30 16:42:00 65.772 kg Universi ty [facility] BMI 2021-06-30 16:42:00 28.32 kg/m2 Universi ty [facility] Oxygen saturation in 2021-06-30 16:42:00 94 /min University of Arterial blood by [facility] Pulse oximetry Branch Systolic blood 2021-09-15 11:22:00 83 mm[Hg] [facility] Diastolic blood 2021-09-15 11:22:00 59 mm[Hg] [facility] S t [facility] Heart rate 2021-09-15 11:22:00 112 /min [facility] Body temperature 2021-09-15 11:22:00 35.56 Suzy [facility] Respiratory rate 2021-09-15 11:22:00 20 /min [facility] Oxygen saturation in 2021-09-15 11:22:00 94 /min [facility] Arterial blood by Medical nter Pulse oximetry Body height 2021-09-08 09:00:00 155 cm [facility] Body weight 2021-09-08 04:00:00 66.316 kg [facility] BMI 2021-09-08 04:00:00 27.60 kg/m2 [facility] Procedures Procedure Date / Time Performing Clinician Source Performed HOME HEALTH - OTHER 2021-09-19 06:01:00 [facility], [facility] [place] [facility] SARS-COV2/RT-PCR ([facility] & 2021-09-15 04:41:[address] [facility] SARS-COV2/RT-PCR ([facility] & 2021-09-14 16:34:00 Aleja Ríos [facility] CBC W/PLT COUNT & AUTO 2021-09-14 05:32:00 GUERO [facility] [facility] DIFFERENTIAL [facility] CBC W/PLT COUNT & AUTO 2021-09-14 05:32:00 [facility] DIFFERENTIAL [facility] VANCOMYCIN LEVEL, TROUGH 2021-09-13 13:54:00 Krish [facility] CBC W/PLT COUNT & AUTO 2021-09-13 13:54:00 [facility] CBC W/PLT COUNT & AUTO 2021-09-13 13:54:00 GUERO [facility] DIFFERENTIAL [facility] ECG 12-LEAD 2021-09-12 17:48:43 Unknown, Hl7 Doctor [facility] ECG 12-LEAD 2021-09-12 17:48:43 Unknown, Hl7 Doctor [facility] VANCOMYCIN LEVEL, TROUGH 2021-09-12 13:07:00 [facility] CBC W/PLT COUNT & AUTO 2021-09-12 13:07:00 GUERO [facility] DIFFERENTIAL [facility] BASIC METABOLIC PANEL (7) 2021-09-12 13:07:00 MACHELLE [place] I [facility] CBC W/PLT COUNT & AUTO 2021-09-12 13:07:00 GUERO [place] S [facility] LACTIC ACID, VENOUS 2021-09-12 13:06[facility]OL[facility] PAN[facility] (7) 2021-09-11 13:29:00 MACHELLE [place] I [facility] MAGNESIUM 2021-09-11 13:29:00 [facility], TROUGH 2021-09-10 11:38:00 [facility] 2021-09-10 05:55:00 [facility] W/[facility]T COUNT & AUTO 2021-09-10 03:45:00 Dutch [facility] BASIC METABOLIC PANEL (7) 2021-09-10 03:45:00 [facility] CALCIUM, IONIZED 2021-09-10 03:45:00 [place] [facility] PHOSPHORUS 2021-09-10 03:45:00 [place] [facility] CBC W/PLT COUNT & AUTO 2021-09-10 03:45:00 [place] [facility] MAGNESIUM 2021-09-10 03:45:00 [place] [facility] ALBUMIN 2021-09-10 03:45:00 [facility] VANCOMYCIN LEVEL, TROUGH 2021-09-09 19:17:00 [facility] CBC W/PLT COUNT & AUTO 2021-09-09 03:33:00 [place] [facility] BASIC METABOLIC PANEL (7) 2021-09-09 03:33:00 Barbra [facility] CALCIUM, IONIZED 2021-09-09 03:33:00 [place] [facility] PHOSPHORUS 2021-09-09 03:33:00 Barbra [facility] CBC W/PLT COUNT & AUTO 2021-09-09 03:33:00 [place] [facility] MAGNESIUM 2021-09-09 03:33:00 [place] [facility] TRANSESOPHAGEAL ECHO 2021-09-08 11:20:43 [facility] COLOR-FLOW MAPPING 2021-09-08 06:45:11 [facility] CONT WAVE PULSED DOPPLER 2021-09-08 06:45:11 [facility] BLOOD CULTURE 2021-09-08 00:29:00 [facility] COMPREHENSIVE METABOLIC 2021-09-08 00:28:00 [facility] MAGNESIUM 2021-09-08 00:28:00 [facility] C-REACTIVE PROTEIN 2021-09-08 00:28:00 [facility] LACTIC ACID, VENOUS 2021-09-08 00:28:00 [facility] BLOOD GAS, VENOUS 2021-09-08 00:28:00 [facility] CBC W/PLT COUNT & AUTO 2021-09-08 00:27:00 [facility] BLOOD CULTURE 2021-09-08 00:27:00 [facility] CBC W/PLT COUNT & AUTO 2021-09-08 00:27:00 [facility] URINALYSIS 2021-08-24 01:38:00 Uyen Fields [facility] XR CHEST 1 VW 2021-08-24 00:38:02 Uyen Fields [facility] TROPONIN I 2021-08-24 00:36:00 Uyen Fields [facility] COMP. METABOLIC PANEL 2021-08-24 00:36:00 Uyen Fields [facility] ([id number]) [facility] CBC WITH DIFF 2021-08-24 00:36:00 Uyen Fields [facility] PROTHROMBIN TIME / INR 2021-08-24 00:36:00 Uyen Fields [facility] N-TERMINAL PRO-BNP 2021-08-24 00:36:00 Uyen Fields [facility] COVID-19 (ID NOW RAPID 2021-08-24 00:36:00 [facility]) Medical Branch NOTICE OF PRIVACY 2021-08-24 00:09:03 Doctor Unassigned, [facility] PRACTICES [place] [facility] [place] CONSENT/REFUSAL FOR 2021-08-24 00:07:01 Doctor Unasswayne, [facility] DIAGNOSIS AND TREATMENT [place] [facility] Plan of Care Planned Activity Planned Date [...] [facility]ukes - Test 00:00:00 (12+) [code = [facility] DEPRESSION SCREENING (12+)] Future Scheduled 2021-09-[address] [facility] - Test 00:00:00 (12+) [code = [facility] DEPRESSION SCREENING (12+)] Future Scheduled 2021-06-02 [...] s - Test 00:00:00 (procedure) [code = [facility] 14821256] Future Scheduled [address] [facility] Test 00:00:00 (procedure) [code = [facility] 09109145] Future Scheduled 1999-03-[address] [...] [facility]ica l Center cervix (procedure) [code = 860193297] Future Scheduled [address] [facility] - Test 00:00:00 malignant neoplasm of Medica l Center cervix (procedure) [code = 305284419] Future Scheduled 1975 HEPATITIS C [facility]CRE[facility] Test [facility]00 [code = HEPATITIS [facility] Medical Center SCREENING] Future Scheduled 1975 HEPATITIS C [facility] Test 00:00:00 [code = HEPATITIS C Medical Center SCREENING] Future Scheduled [address] [facility] - Test 00:00:00 malignant neoplasm of Medica l Center breast (procedure) [code = 660603388] Future Scheduled [address] [facility] [facility] - Test 00:00:00 malignant neoplasm of [facility] Center colon (procedure) [code = 106052071] Future Scheduled [address] [facility] - Test 00:00:00 malignant neoplasm of [facility] Center breast (procedure) [code = 778661462] Future Scheduled [address] [facility] - Test 00:00:00 malignant neoplasm of Medica l Center colon (procedure) [code = 611249647] Encounters Start End Encounter Admission Attending Care Care Encounter Source Date/Time Date/Time Type Type Clinicians Facility Department ID 2021-07-18 Emergency [facility] [id number] Univers 16:13:03 [facility] 2021-07-16 Emergency [facility] [id number] Univers 02:15:15 [facility] 2022-05-01 2022-05-01 Outpatient Morro MERCADO [facility] [id number] Univers 10:20:00 10:20:00 MAUREEN [id number] [facility] 2022-05-01 2022-05-01 Outpatient Morro MERCADO [facility] [id number] Univers 10:20:00 10:20:00 MAUREEN [facility] 2022-02-02 2022-02-02 Outpatient PUJA CORDOBA [facility] [id number] Univers 09:30:00 09:30:00 PUJA FOLEY [id number] i ty of [facility] 2022-02-02 2022-02-02 Outpatient R ALAINA PUJA [facility] [id number] Univers 09:30:00 09:30:00 PUJA FOLEY i ty of [facility] 2022-02-01 2022-02-01 Outpatient R RAISSA [facility] [id number] Univers 13:30:00 13:30:00 JEMMA [id number] ity [facility] 2022-01-12 2022-01-12 Telephone [facility] [id number] Univers 00:00:00 00:00:00 Maureen Festus LIANGT[place] [id number] it[id number] [id number] [address] 2022-01-10 2022-01-10 [facility] [id number] Univers 00:00:00 00:00:00 Maureen A [place] [id number] ity [facility] [id number] [id number] [address] 2022-01-09 2022-01-09 Telephone [facility] [id number] Univers 00:00:00 00:00:00 Maureen Festus [place] [id number] ity [facility] [id number] [id number] [address] 2022-01-03 2022-01-03 Outpatient R RAISSA [facility] [id number] Univers 10:00:00 10:00:00 JEMMA [id number] ity [facility] 2022-01-03 2022-01-03 [facility] [id number] Univers 10:00:00 10:00:00 JEMMA ity [facility] 2022-01-02 2022-01-02 Telephone [facility] 1.2.840.114 [id number] Univers 00:00:00 00:00:00 Maureenswetha LIANGTON [id number] ity [facility] [id number] [phone] [facility] 044 [facility] 2021-12-30 2021-12-30 [facility]ill [facility] 1.2.840.114 [id number] Univers 00:00:00 00:00:00 Maureen LIANGTON [id number] [id number] [id number] [address] 2021-12-16 2021-12-16 Outpatient R PUJA FOLEY [facility] [id number] Univers 11:30:00 11:30:00 PUJA FOLEY [id number] i ty of [facility] 2021-12-16 2021-12-16 Outpatient R PUJA FOLEY [facility] [id number] Univers 11:30:00 11:30:00 PUJA FOLEY i ty of [facility] 2021-12-01 2021-12-01 Outpatient R JESS [facility] [id number] Univers 15:00:00 15:00:00 MAUREEN ity [facility] 2021-12-01 2021-12-01 Outpatient R JESS [facility] [id number] Univers 11:20:00 14:15:43 MAUREEN ity [facility] 2021-12-01 2021-12-01 [facility]medici [facility] 1.2.840.114 [id number] Univers 11:20:00 14:15:43 ne Visit Maureen DOWLING [id number] ity [facility] [id number] [id number] [address] 2021-12-01 2021-12-01 Outpatient R JESS [facility] [id number] Univers 11:20:00 11:20:00 MAUREEN [id number] ity of [facility] 2021-11-15 2021-11-15 Telephone [facility] 1.2.840.114 [id number] Univers 00:00:00 00:00:00 Maureen DOWL[place] [id number] [id number] [phone] Az dical [address] 2021-09-19 2021-09-19 Outpatient R [facility] [id number] Univers 00:00:00 00:00:00 ity of [facility] 2021-09-19 2021-09-19 Orders Doctor HILL 1.2.840.114 [id number] Univers 00:00:00 00:00:00 Only Unassigned, LALITA [id number] ity of [place] [facility] [id number] Darci as [id number] [address] 2021-09-07 2021-09-15 Hospital Sarai [place] [facility] [id number] 21:52:00 13:08:00 Encounter [facility] 2021-09-07 2021-09-15 Inpatient UR ESTER [facility] Cardiology [id number] [facility] 21:52:00 13:08:00 [facility] 2021-09-12 2021-09-12 Orders [facility] [id number] 00:00:00 00:00:00 Only [facility] 2021-09-08 2021-09-08 Outpatient [facility] [id number] [facility] 00:00:00 23:59:00 Dory Medicedward e 2021-08-23 2021-08-24 Emergency [facility] 1.2.840.114 [id number] Univers 18:18:00 02:43:00 Uyen DOWLING [id number] i ty of [facility] [id number] [id number] [facility] 084 [place] 2021-08-24 2021-08-24 Letter SERGIO Antonio 1.2.840.114 [id number] Univers 00:00:00 00:00:00 (Out) Savanah CELIS [id number] it y of [facility] [id number] Darci as [id number] [facility] 019 [place] 2021-08-23 2021-08-23 Urgent [facility] 1.2.840.114 [id number] Univers 17:08:18 17:53:20 Care [facility] [id number] it y of [place] [id number] Darci as CONNIE?BLEA [id number] Az kathya HENNING [address] [place] [facility] OFF[facility]ILD[facility] 2021-08-23 2021-08-23 Outpatient [facility] [id number] Univers 17:00:00 17:53:20 KYLEE ity [facility] 2021-08-23 2021-08-23 Outpatient R [facility] ERT [id number] Univers 17:00:00 17:53:20 KYLEE ity [facility] 2021-08-23 2021-08-23 Outpatient R [facility] [id number] Univers 17:00:00 17:00:00 [id number] ity [facility] 2021-08-23 2021-08-23 Outpatient [facility] [id number] Univers 17:00:00 17:00:00 [facility] 2021-08-23 2021-08-23 Telephone [facility] 1.2.840.114 [id number] Univers 00:00:00 00:00:00 Maureen DOWLING 350.1.13.10 ity [facility] [id number] [facility] [id number] Az kathya MELENDREZ [address] BU[address]ING 2021-08-02 2021-08-02 Outpatient R [facility] [id number] Univers 10:20:00 13:19:18 MAUREEN ity [facility] 2021-08-02 2021-08-02 Telemedici [facility] 1.2.840.114 [id number] Univers 08:30:30 13:19:18 ne Visit Maureen DOWLING 350.1.13.10 ity [facility] [id number] [id number] [address] 2021-08-02 2021-08-02 Outpatient R [facility] [id number] Univers 10:20:00 10:20:00 MAUREEN [id number] ity of [facility] 2021-07-08 2021-07-08 Refill [facility] 1.2.840.114 [id number] Univers 00:00:00 00:00:00 Maureen Dowling 350.1.13.10 ity [facility] [id number] [phone] [facility] 231 [facility] 2021-06-30 2021-06-30 Office [facility] 1.2.840.114 [id number] Univers 11:26:48 12:14:06 Visit Puja [place] 350.1.13.10 i ty of [id number] [phone] [facility] 085 [facility] 2021-06-30 2021-06-30 Outpatient R PUJA FOLEY [facility] [id number] Univers 11:30:00 11:30:00 PUJA FOLEY [id number] i ty of [facility] 2021-06-30 2021-06-30 Outpatient R PUJA FOLEY [facility] [id number] Univers 11:30:00 11:30:00 PUJA FOLEY i ty of [facility] 2021-06-24 2021-06-24 Outpatient R PUJA FOLEY [facility] [id number] Univers 13:20:00 13:20:00 PUJA FOLEY [id number] i ty of [facility] 2021-06-24 2021-06-24 Outpatient R PUJA FOLEY [facility] [id number] Univers 13:20:00 13:20:00 PUJA FOLEY i [facility] 2021-06-17 2021-06-17 Outpatient R GLADYS [facility] [id number] Univers 15:20:00 15:20:00 JESSICA [id number] [facility] 2021-06-17 2021-06-17 Outpatient R GLADYS [facility] [id number] Univers 15:20:00 15:20:00 JESSICA [facility] 2021-05-26 2021-05-26 Outpatient R JESS [facility] [id number] Univers 14:00:00 14:00:00 MAUREEN [id number] [facility] 2021-05-26 2021-05-26 [facility] [id number] Univers 14:00:00 14:00:00 MAUREEN [facility] 2021-05-20 2021-05-20 Outpatient JESS [facility] [id number] Univers 13:40:00 13:40:00 MAUREEN [id number] [facility] 2021-05-20 2021-05-20 [facility] [id number] Univers 13:40:00 13:40:00 MAUREEN [facility] 2021-05-06 2021-05-06 Outpatient R JESS [facility] [id number] Univers 10:40:00 10:40:00 MAUREEN [id number] [facility] 2021-05-06 2021-05-06 Outpatient R JESS [facility] [id number] Univers 10:40:00 10:40:00 [facility]04[facility]28 2021-04-28 [facility] [id number] 09:07:52 14:36:33 Visit Maureen Dowling [id number] [place] [id number] Pranav [id number] [address] 2021-04-28 2021-04-28 Outpatient R JESS [facility] [id number] Univers 09:20:00 09:20:00 [facility] [id number] [facility] 2021-04-28 Outpatient R JESS [facility] [id number] Univers 09:20:00 09:20:00 MAUREEN [facility] 2021-01-11 2021-01-11 Outpatient R RAISSA, [facility] [id number] Univers 12:00:00 12:00:00 [facility] [id number] [facility]-01-11 2021-01-11 Outpatient R ADTAMEKA [facility] [id number] Univers 00:00:00 00:00:00 JEMMA [facility] 2020-12-28 2020-12-28 Outpatient R JUANTAMEKA [facility] [id number] Univers 15:30:00 15:30:00 JEMMA [id number] [facility] 2020-12-28 2020-12-28 Outpatient R RAISSA, [facility] [id number] Univers 15:30:00 15:30:00 JEMMA [facility] 2020-12-23 2020-12-23 Outpatient R PUJA FOLEY [facility] [id number] Univers 13:30:00 13:30:00 PUJA FOLEY [id number] i ty of [facility] 2020-12-23 2020-12-23 Outpatient R PUJA FOLEY [facility] [id number] Univers 13:30:00 13:30:00 PUJA FOLEY i ty of [facility] 2020-12-21 2020-12-21 Outpatient R EVELYN, [facility] [id number] Univers 13:00:00 13:00:00 MELANIE [id number] betzyy o f [facility] 2020-12-21 2020-12-21 Outpatient R EVELYN [facility] RAD [id number] Univers 00:00:00 00:00:00 MELANIE brown o f [facility] 2020-12-09 2020-12-09 Outpatient R PUJA FOLEY [facility] [id number] Univers 14:00:00 14:00:00 PUJA FOLEY [id number] i ty of [facility] 2020-12-09 2020-12-09 Outpatient R PUJA FOLEY [facility] [id number] Univers 14:00:00 14:00:00 PUJA FOLEY i ty of [facility] 2020-11-30 2020-11-30 Outpatient Morro LINDA [facility] [id number] Univers 11:10:00 11:10:00 YARELY [id number] [facility] 2020-11-30 2020-11-30 Outpatient [place] LINDA, [facility] [id number] Univers 11:10:00 11:10:00 YARELY [facility] 2020-11-23 2020-11-23 [facility] [id number] Univers 10:00:00 10:00:00 MELANIE Vallecillo309 [facility] 2020-11-18 2020-11-18 Outpatient [place] NOEEVELYN, [facility] [id number] Univers 14:00:00 14:00:00 MELANIE britt [facility] 2020-11-18 2020-11-18 Outpatient [place] MERCADO [facility] [id number] Univers 10:40:00 10:40:00 MAUREEN Rabago [facility] 2020-11-18 2020-11-18 Outpatient [place] MERCADO [facility] [id number] Univers 10:40:00 10:40:00 MAUREEN [facility] 2020-11-15 2020-11-15 Outpatient [place] EVELYN [facility] [id number] Univers 13:00:00 13:00:00 MELANIE Vallecillo301 it o [facility] 2020-11-15 2020-11-15 Outpatient [place] EVELYN [facility] [id number] Univers 13:00:00 13:00:00 MELANIE bobritt o [facility] 2020-11-09 2020-11-09 Outpatient [facility] [id number] Univers 11:10:00 11:10:00 [id number] ity [facility] 2020-11-09 2020-11-09 Outpatient R LINDA [facility] [id number] Univers 11:10:00 11:10:00 YARELY ity [facility] 2020-11-04 2020-11-04 Outpatient R PUJA FOLEY [facility] [id number] Univers 11:20:00 11:20:00 PUJA FOLEY [id number] i ty of [facility] 2020-11-04 2020-11-04 Outpatient R ALAINA PUJA [facility] [id number] Univers 11:20:00 11:20:00 PUJA FOLEY i ty of [facility] 2020-10-13 2020-10-13 Outpatient R [facility] [id number] Univers 14:00:00 14:00:00 [id number] [facility] 2020-10-13 2020-10-13 Outpatient R [facility] [id number] Univers 14:00:00 14:00:00 [facility] 2020-09-16 2020-09-16 Outpatient R JESS [facility] [id number] Univers 00:00:00 00:00:00 MAUREEN [id number] [facility] 2020-09-16 2020-09-16 Outpatient R JESS [facility] [id number] Univers 00:00:00 00:00:00 MAUREEN [facility] 2020-08-19 2020-08-19 Outpatient R MERCADO, [facility] [id number] Univers 10:20:00 10:20:00 MAUREEN [facility] 2020-08-19 2020-08-19 Outpatient R JESS [facility] [id number] Univers 10:20:00 10:20:00 MAUREEN [facility] 2020-05-06 2020-05-06 Outpatient [facility] [id number] Univers 12:30:00 12:30:00 [facility] 2020-05-06 2020-05-06 Outpatient R JUAN FRANCISCO [facility] [id number] Univers 12:30:00 12:30:00 JOLENE ity of [facility] 2020-05-03 2020-05-03 Outpatient R [facility] [id number] Univers 11:15:00 11:15:00 [id number] ity of [facility] 2020-05-03 2020-05-03 Outpatient R JUAN FRANCISCO [facility] [id number] Univers 11:15:00 11:15:00 JOLENE ity of [facility] 2020-04-29 2020-04-29 Outpatient R PUJA FOLEY [facility] [id number] Univers 15:20:00 15:20:00 PUJA FOLEY [id number] i ty of [facility] 2020-04-29 2020-04-29 Outpatient R PUJA FOLEY [facility] [id number] Univers 15:20:00 15:20:00 PUJA FOLEY i ty of [facility] 2020-04-12 2020-04-12 Outpatient R MERCADO [facility] [id number] Univers 14:40:00 14:40:00 MAUREEN ity [facility] 2020-04-12 2020-04-12 Outpatient R JESS [facility] [id number] Univers 10:40:00 10:40:00 MAUREEN [id number] ity [facility] 2020-03-08 2020-03-08 Outpatient R JESS, [facility] [id number] Univers 15:40:00 15:40:00 MAUREEN [id number] ity [facility] 2020-03-08 2020-03-08 Outpatient R JESS [facility] [id number] Univers 15:40:00 15:40:00 MAUREEN ity [facility] 2020-02-26 2020-02-26 Outpatient R MERCADO [facility] [id number] Univers 10:00:00 10:00:00 MAUREEN ity [facility] 2020-01-12 2020-01-12 Outpatient R MERCADO, [facility] [id number] Univers 09:40:00 09:40:00 MAUREEN [id number] ity [facility] 2020-01-12 2020-01-12 Outpatient R MERCADO [facility] [id number] Univers 09:40:00 09:40:00 MAUREEN [facility] 2019-12-23 2019-12-23 Outpatient Morro MERCADO [facility] [id number] Univers 10:20:00 10:20:00 MAUREEN [facility] 2019-12-01 2019-12-01 Outpatient DEJUAN RIVERO [facility] [id number] Univers 13:40:00 13:40:00 DEJUAN JADE [id number] [facility] 2019-12-01 2019-12-01 Outpatient DEJUAN RIVERO [facility] [id number] Univers 13:40:00 13:40:00 DEJUAN JADE [facility] 2019-08-17 2019-08-21 Inpatient ANYI [facility] [id number] Univers 16:40:37 18:12:00 [facility] Results Test Description Test Time Test Comments Results Result Comments Source SARS-CoV2/RT-PCR (Asymptomatic ONLY) 2021-09-15 16:14:42 Test Item Value Reference Range Interpretation Comme nts SARS-COV2/RT-PCR (test code = Negative Negative 14308-5) JUANIS (test code = JUANIS) Negative result [...] the Act. Testing was performed using the Hernanedz SARS-CoV-2 assay. Fact Sheet for Healthcare Providers:https://www.Anam Mobile kareem/schuyler/RT SARS-CoV-2 HCP Fact Sheet 51-265125.pdf Fact Sheet for Healthcare Patients:https://www.Zhuhai Ome[employer] tt/schuyler/RT SARS-CoV-2 Patient Fact Sheet EN 51-121683U1.pdf Lab Interpretation (test code = Normal 49369-1) [facility]15 16:14:42 Test Item Value Reference Range Interpretation Comments SARS-COV2/RT-PCR (test Negative Negative code = 90188-1) JUANIS (test code = JUANIS) Negative result [...] SARS-CoV-2 assay. Fact Sheet for Healthcare Providers:https://www.toney ray/schuyler/RT SARS-CoV-2 HCP Fact Sheet 51-770128.pdf Fact Sheet for Healthcare Patients:https://www.juan lawsonSportlyzer/schuyler/RT SARS-CoV-2 Patient Fact Sheet EN 51-648769E1.pdf Lab Interpretation Normal (test code = 79141-8) [facility])2021-09-15 16:14:42 Test Item Value Reference Range Interpretation Comments SARS-COV2/RT-PCR (test code = Negative Negative 1163144) Negative result for this test determines that [...] the Hernandez SARS-CoV-2 assay.Fact Sheet for Healthcare Providers:https://www.AtBizz.Medical Joyworks/schuyler/RT SARS-CoV-2 HCP Fact Sheet 51- 606411.pdfFact Sheet for Healthcare Patients:https://www.[employer] Technology/schuyler/RT SARS-CoV-2 Patient Fact Sheet EN 51-970458C5.pdfSARS-COV2/RT-PCR ([facility])2021-09-15 11:07:01 Test Item Value Reference Range Interpretation Comments SARS-COV2/RT-PCR (test code = Negative Negative 0500103) Negative result for this test determines that [...] the Hernandez SARS-CoV-2 assay.Fact Sheet for Healthcare Providers:https://www.molecular.hernandez/schuyler/RT SARS-CoV-2 HCP Fact Sheet 51- 448623.pdfFact Sheet for Healthcare Patients:https://www.AtBizz.hernandez/schuyler/RT SARS-CoV-2 Patient Fact Sheet EN 51-248901W9.pdfCBC with platelet count + automated [id number] 06:22:16 Test Item Value Reference Range Interpretation Comments WBC (test code = 6690-2) 13.2 See_Comment H [A utomated message] The system Pagevamp generated this result transmitted ref erence range: 3.5 - 10 .5 K/L. The refe rence range was not u sed to interpret this result as normal/abnor mal. RBC (test code = 789-8) 3.59 See_Comment L [Au tomated message] The system Pagevamp generated this result transmitted ref erence range: 3.93 - 5 .22 M/L. The refe rence range was not u sed to interpret this result as normal/abnor mal. MCHC (test code = 786-4) 33.0 See_Comment L [A utomated message] The system Pagev[employer] generated this result transmitted ref erence range: [...] code = 369 See_Comment [Aut omated message] 837-3) The system Pagev[employer] generated this result transmitted ref erence range: 150 - 45 0 K/CU MM. The referen ce range was not u sed to interpret this result as normal/abnor mal. MPV (test code = 9.8 fL 9.4-12.3 92315-2) nRBC (test code = 413) 0 See_Comment [Aut omated message] The system Pagevamp generated this result transmitted ref erence range: [...] H [Aut omated message] 670) The system Pagev[employer] generated this result transmitted ref erence range: 1.56 - 6 .13 K/L. The refe rence range was not u sed to interpret this result as normal/abnor mal. # Lymphs (test code = 3.72 See_Comment [Auto mated message] 414) The system Pagev[employer] generated this result transmitted ref erence range: 1.18 - 3 .74 K/L. The refe rence range was not u sed to interpret this result as normal/abnor mal. # Monos (test code = 1.11 See_Comment H [Autom ated message] 415) The system Pagev[employer] generated this result transmitted ref erence range: 0.24 - 0 .36 K/L. The refe rence range was not u sed to interpret this result as normal/abnor mal. # Eos (test code = 416) 0.33 See_Comment [Au tomated message] The system Pagevamp generated this result transmitted ref erence range: 0.04 - 0 .36 K/L. The refe rence range was not u sed to interpret this result as normal/abnor mal. # Baso (test code = 417) 0.04 See_Comment [A utomated message] The system Pagevamp generated this result transmitted ref erence range: 0.01 - 0 .08 K/L. The refe rence range was not u sed to interpret this result as normal/abnor mal. Immature 1 % 0-1 Granulocytes-Relative (test code = 2801) Lab Interpretation (test Abnormal code = 95090-1) [facility] with platelet count + automated [id number] 06:22:16 Test Item Value Reference Range Interpretation Comments WBC (test code = 6690-2) 13.2 See_Comment H [A utomated message] The system Pagevamp generated this result transmitted ref erence range: 3.5 - 10 .5 K/L. The refe rence range was not u sed to interpret this result as normal/abnor mal. RBC (test code = 789-8) 3.59 See_Comment L [Au tomated message] The system Pagevamp generated this result transmitted ref erence range: 3.93 - 5 .22 M/L. The refe rence range was not u sed to interpret this result as normal/abnor mal. MCHC (test code = 786-4) 33.0 See_Comment L [A utomated message] The system Pagevamp generated this result transmitted ref erence range: [...] See_Comment [Aut omated message] 777-3) The system Pagevamp generated this result transmitted ref erence range: 150 - 45 0 K/CU MM. The referen ce range was not u sed to interpret this result as normal/abnor mal. MPV (test code = 9.8 fL 9.4-12.3 42778-0) nRBC (test code = 413) 0 See_Comment [Aut omated message] The system Pagevamp generated this result transmitted ref erence range: [...] H [Aut omated message] 670) The system Pagevamp generated this result transmitted ref erence range: 1.56 - 6 .13 K/L. The refe rence range was not u sed to interpret this result as normal/abnor mal. # Lymphs (test code = 3.72 See_Comment [Auto mated message] 414) The system Pagevamp generated this result transmitted ref erence range: 1.18 - 3 .74 K/L. The refe rence range was not u sed to interpret this result as normal/abnor mal. # Monos (test code = 1.11 See_Comment H [Autom ated message] 415) The system Pagev[employer] generated this result transmitted ref erence range: 0.24 - 0 .36 K/L. The refe rence range was not u sed to interpret this result as normal/abnor mal. # Eos (test code = 416) 0.33 See_Comment [Au tomated message] The system Pagevamp generated this result transmitted ref erence range: 0.04 - 0 .36 K/L. The refe rence range was not u sed to interpret this result as normal/abnor mal. # Baso (test code = 417) 0.04 See_Comment [A utomated message] The system Pagevamp generated this result transmitted ref erence range: 0.01 - 0 .08 K/L. The refe rence range was not u sed to interpret this result as normal/abnor mal. Immature 1 % 0-1 Granulocytes-Relative (test code = 2801) Lab Interpretation (test Abnormal code = 98031-5) [facility] W/PLT COUNT & AUTO [id number] 06:22:16 Test Item Value Reference Range Interpretation [...] (BEAKER) (test code = 2801) Vancomycin level, [id number] 14:18:34 Test Item Value Reference Range Interpretation Comments Vancomycin Tr (test code = 8.4 ug/mL 10.0-20.0 L 4092-3) JUANIS (test code = JUANIS) Casket Assembler ID - DEANGELO L Lab Interpretation (test Abnormal code = 20919-0) [facility] [id number] 14:18:34 Test Item Value Reference Range Interpretation Comments Vancomycin Tr (test code = 8.4 ug/mL 10.0-20.0 L 4092-3) JUANIS (test code = JUANIS) Casket Assembler ID - PIAYA L Lab Interpretation (test Abnormal code = 37568-1) [facility] LEVEL, [id number] 14:18:34 Test Item Value Reference Range Interpretation Comments VANCOMYCIN TROUGH (BEAKER) (test 8.4 ug/mL 10.0-20.0 L code = 522) Casket Assembler ID - DEANGELO LCBC W/PLT COUNT & AUTO [id number] 14:05:32 Test Item Value Reference Range Interpretation [...] = No growth in 5 days 6463-4) [facility] (Right Venipuncture) 2021-09-13 02:00:53 Test Item Value Reference Range Interpretation Comments Result (test code = No growth in 5 days 6463-4) [facility]BLO[facility] [id number] 02:00:53 Test Item Value Reference Range Interpretation Comments CULTURE (BEAKER) (test No growth in 5 days code = 1095) BLOOD [id number] 02:00:52 Test Item Value Reference Range Interpretation Comments CULTURE (BEAKER) (test No growth in 5 days code = 1095) Transesophageal [id number] 18:48:24Ejection FractionSLEH ECHO HEARTLAB MKCKESSON [facility]Trans[facility] [id number] 18:48:24Ejection FractionSLEH ECHO HEARTLAB MKCKESSON [facility] HospitalVANCOMYCIN LEVEL, [id number] 13:59:47 Test Item Value Reference Range Interpretation Comments VANCOMYCIN TROUGH (BEAKER) (test 8.4 ug/mL 10.0-20.0 L code = 522) Casket Assembler ID - DBLactic acid, [id number] 13:58:08 Test Item Value Reference Range Interpretation Comments Lactate, Venous (test code = 1.96 mmol/L 0.50-2.20 2872) JUANIS (test code = JUANIS) Casket Assembler ID - DB Lab Interpretation (test Normal code = 92810-7) [facility] HospitalL[facility] acid, [id number] 13:58:08 Test Item Value Reference Range Interpretation Comments Lactate, Venous (test code = 1.96 mmol/L 0.50-2.20 2872) JUANIS (test code = JUANIS) Casket Assembler ID - DB Lab Interpretation (test Normal code = 84982-9) [facility] HospitalLACTIC ACID, [id number] 13:58:08 Test Item Value Reference Range Interpretation Comments LACTATE BLOOD VENOUS (2) (BEAKER) 1.96 mmol/L 0.50-2.20 (test code = 2872) Casket Assembler ID - DBBasic Metabolic [id number] 13:56:06 Test Item Value Reference Range Interpretation Comments Sodium (test code = 134 meq/L 136-145 L 2951-2) Potassium (test code = 4.3 meq/L 3.5-5.1 2823-3) Chloride (test code = 99 meq/L 98-107 2075-0) CO2 (test code = 25 meq/L 22-29 8-9) BUN (test code = 18 mg/dL 7- 3094-0) Creatinine (test code 0.76 mg/dL 0.57-1.25 = 2160-0) Glucose (test code = 118 mg/dL 70-105 H 2345-7) Calcium (test code = 8.7 mg/dL 8.4-10.2 95786-9) EGFR (test code = 77 mL/min/1.73 [place] [address]-8) NOT ACCURATE CREATININE CLEARANCE IN PREDICTING GLOMERULAR FILTRATION RATE . ESTIMATED GFR I S NOT APPLICABLE FOR DIALYSIS PATIENTS. JUANIS (test code = JUANIS) Casket Assembler ID - DB Lab Interpretation Abnormal (test code = 60589-4) [facility] Metabolic [id number] 13:56:06 Test Item Value Reference Range Interpretation Comments Sodium (test code = 134 meq/L 136-145 L 2951-2) Potassium (test code = 4.3 meq/L 3.5-5.1 2823-3) Chloride (test code = 99 meq/L 98-107 2075-0) CO2 (test code = 25 meq/L 22-29 2028-9) BUN (test code = 18 mg/dL 7-21 3094-0) Creatinine (test code 0.76 mg/dL 0.57-1.25 = 2160-0) Glucose (test code = 118 mg/dL 70-105 H 2345-7) Calcium (test code = 8.7 mg/dL 8.4-10.2 80058-7) EGFR (test code = 77 mL/min/1.73 [place] [address]-8) NOT ACCURATE CREATININE CLEARANCE IN PREDICTING GLOMERULAR FILTRATION RATE . ESTIMATED GFR I S NOT APPLICABLE FOR DIALYSIS PATIENTS. JUANIS (test code = JUANIS) Casket Assembler ID - DB Lab Interpretation Abnormal (test code = 79353-2) [facility] METABOLIC [id number] 13:56:06 Test Item Value Reference Range Interpretation Comments SODIUM (BEAKER) 134 meq/L 136-145 L (test code = 381) POTASSIUM (BEAKER) 4.3 meq/L 3.5-5.1 (test code = 379) CHLORIDE (BEAKER) 99 meq/L 98-107 (test code = 382) CO2 (BEAKER) (test 25 meq/L -29 code = 355) BLOOD UREA NITROGEN 18 [...] S NOT APPLICABLE FOR DIALYSIS PATIEN TS. Casket Assembler ID - DBCBC W/PLT COUNT & AUTO [id number] 13:21:48 Test Item Value Reference Range Interpretation [...] (BEAKER) (test code = 2801) BASIC METABOLIC [id number] 14:26:25 Test Item Value Reference Range Interpretation [...] S NOT APPLICABLE FOR DIALYSIS PATIEN TS. Casket Assembler ID - [id number] 14:11:30 Test Item Value Reference Range Interpretation Comments Magnesium (test code = 1.9 mg/dL 1.6-2.6 ) JUANIS (test code = JUANIS) Casket Assembler ID - DB Lab Interpretation (test Normal code = 98027-6) [facility]2021-12-26 14:11:30 Test Item Value Reference Range Interpretation Comments Magnesium (test code = 1.9 mg/dL 1.6-2.6 56144-9) JUANIS (test code = JUANIS) Casket Assembler ID - DB Lab Interpretation (test Normal code = 56793-4) [facility] 14:11:30 Test Item Value Reference Range Interpretation Comments MAGNESIUM (BEAKER) (test code = 1.9 mg/dL 1.6-2.6 627) Casket Assembler ID - DBVANCOMYCIN LEVEL, [id number] 12:54:39 Test Item Value Reference Range Interpretation Comments VANCOMYCIN TROUGH (BEAKER) (test 10.7 ug/mL 10.0-20.0 code = 522) Casket Assembler ID - IGNACIO [id number] 08:00:34 Test Item Value Reference Range Interpretation Comments Albumin (test code = 2.2 g/dL 3.5-5.0 L 23879-0) JUANIS (test code = JUANIS) Casket Assembler ID - IGNACIO W Lab Interpretation (test Abnormal code = 34945-2) [facility]21-[facility] 08:00:34 Test Item Value Reference Range Interpretation Comments Albumin (test code = 2.2 g/dL 3.5-5.0 L 35085-7) JUANIS (test code = JUANIS) Casket Assembler ID - IGNACIO W Lab Interpretation (test Abnormal code = 67184-8) [facility]AL[facility]IN[facility]21[facility] 08:00:34 Test Item Value Reference Range Interpretation Comments ALBUMIN (BEAKER) (test code = 1145) 2.2 g/dL 3.5-5.0 L Casket Assembler ID - IGNACIO [id number] 06:36:13 Test Item Value Reference Range Interpretation Comments Calcium (test code = 6.4 mg/dL 8.4-10.2 L 14325-8) JUANIS (test code = JUANIS) Casket Assembler ID - IGNACIO W Lab Interpretation (test Abnormal code = 49483-0) [facility]21-[facility]-25 06:36:13 Test Item Value Reference Range Interpretation Comments Calcium (test code = 6.4 mg/dL 8.4-10.2 L 00290-7) JUANIS (test code = JUANIS) Casket Assembler ID - IGNACIO W Lab Interpretation (test Abnormal code = 36642-4) [facility]UM2021-[facility]-25 06:36:13 Test Item Value Reference Range Interpretation Comments CALCIUM (BEAKER) (test code = 697) 6.4 mg/dL 8.4-10.2 L Casket Assembler ID - IGNACIO WBASIC METABOLIC [id number] 05:17:45 Test Item Value Reference Range Interpretation [...] S NOT APPLICABLE FOR DIALYSIS PATIEN TS. Casket Assembler TRACY PIERRE [id number] 05:10:32 Test Item Value Reference Range Interpretation Comments Phosphorus (test code = 2.4 mg/dL 2.3-4.7 2777-1) JUANIS (test code = JUANIS) Casket Assembler ID Ashley PIERRE W Lab Interpretation (test Normal code = 65190-6) [facility]Phosphorus2021-12-25 05:10:32 Test Item Value Reference Range Interpretation Comments Phosphorus (test code = 2.4 mg/dL 2.3-4.7 2777-1) JUANIS (test code = JUANIS) Casket Assembler ID Ashley PIERRE W Lab Interpretation (test Normal code = 89007-6) [facility] 05:10[facility]32 Test Item Value Reference Range Interpretation Comments PHOSPHORUS (BEAKER) (test code = 2.4 mg/dL 2.3-4.7 604) Casket Assembler ID Ashley PIERRE [id number] 05:10:31 Test Item Value Reference Range Interpretation Comments MAGNESIUM (BEAKER) (test code = 1.7 mg/dL 1.6-2.6 627) Casket Assembler TRACY PIERRE WCalcium, [id number] 04:50:40 Test Item Value Reference Range Interpretation Comments Calcium, Ion (test code = 1993-11) 1.15 mmol/L 1.12-1.27 pH, Blood (test code = 24693-8) 7.39 [facility], [id number] 04:50:40 Test Item Value Reference Range Interpretation Comments Calcium, Ion (test code = 1993-11) 1.15 mmol/L 1.12-1.27 pH, Blood (test code = 69418-9) 7.39 [facility]CALCI[facility], [id number] 04:50:40 Test Item Value Reference Range Interpretation Comments CALCIUM IONIZED (BEAKER) (test 1.15 mmol/L 1.12-1.27 code = 698) PH, BLOOD (BEAKER) (test code = 7.39 1810) CBC W/PLT COUNT & AUTO [id number] 04:36:32 Test Item Value Reference Range Interpretation [...] 0-1 PERCENT (BEAKER) (test code = 2801) VANCOMYCIN LEVEL, [id number] 19:55:12 Test Item Value Reference Range Interpretation Comments VANCOMYCIN TROUGH (BEAKER) (test 20.3 ug/mL 10.0-20.0 H code = 522) Casket Assembler ID - DBBASIC METABOLIC [id number] 05:20:28 Test Item Value Reference Range Interpretation [...] S NOT APPLICABLE FOR DIALYSIS PATIEN TS. Casket Assembler ID - DEANGELO [id number] 05:17:02 Test Item Value Reference Range Interpretation Comments MAGNESIUM (BEAKER) (test code = 1.5 mg/dL 1.6-2.6 L 627) Casket Assembler ID - DEANGELO [id number] 05:17:02 Test Item Value Reference Range Interpretation Comments PHOSPHORUS (BEAKER) (test code = 2.8 mg/dL 2.3-4.7 604) Casket Assembler ID - DEANGELO LCALCIUM, [id number] 04:11:31 Test Item Value Reference Range Interpretation Comments CALCIUM IONIZED (BEAKER) (test 1.10 mmol/L 1.12-1.27 L code = 698) PH, BLOOD (BEAKER) (test code = 7.43 1810) CBC W/PLT COUNT & AUTO [id number] 04:09:30 Test Item Value Reference Range Interpretation [...] (BEAKER) (test code = 2801) Comprehensive metabolic [id number] 01:11:40 Test Item Value Reference Range Interpretation Comments Protein, Total (test 6.1 See_Comment [Autom ated code = 2885-2) message] The system which generated this result transmit veronica reference range : 6.0 - 8.3 gm/dL . The reference range was not u sed to interpret th is result as normal/abnormal . Albumin (test code = 3.4 g/dL 3.5-5.0 L 08184-7) Alkaline Phosphatase 57 U/L 40-150 (test code = 6768-6) Total Bilirubin (test 0.3 mg/dL 0.2-1.2 code = 1975-2) Sodium (test code = 136 meq/L 896-721 2136-2) Potassium (test code 3.7 meq/L 3.5-5.1 = 2823-3) Chloride (test code = 100 meq/L 98-107 2074-0) CO2 (test code = 28 meq/L 22-29 2027-9) BUN (test code = 15 mg/dL 7-21 3094-0) Creatinine (test code 0.69 mg/dL 0.57-1.25 = 2160-0) Glucose (test code = 104 mg/dL 70-105 2345-7) Calcium (test code = 8.7 mg/dL 8.4-10.2 55980-1) AST (test code = 11 U/L 5-34 1920-8) ALT (test code = 13 U/L 6-55 1742-6) EGFR (test code = 86 mL/min/1.73 [place] [address]-1) NOT ACCURATE CREATININE CLEARANCE IN PREDICTING GLOMERULAR FILTRATION RATE . ESTIMATED GFR I S NOT APPLICABLE FOR DIALYSIS PATIEN TS. JUANIS (test code = JUANIS) Casket Assembler ID - BS Lab Interpretation Abnormal (test code = 20745-1) [facility] [id number] 01:11:40 Test Item Value Reference Range Interpretation Comments CRP (test code = 676) 0.55 mg/dL 0.00-0.50 H JUANIS (test code = JUANIS) Casket Assembler ID - BS Lab Interpretation (test Abnormal code = 55035-4) [facility]Com[facility] [id number] 01:11:40 Test Item Value Reference Range Interpretation Comments Protein, Total (test 6.1 See_Comment [Autom ated code = 2885-2) message] The system which generated this result transmit veronica reference range : 6.0 - 8.3 gm/dL . The reference range was not u sed to interpret th is result as normal/abnormal . Albumin (test code = 3.4 g/dL 3.5-5.0 L 14077-4) Alkaline Phosphatase 57 U/L 40-150 (test code = 6768-6) Total Bilirubin (test 0.3 mg/dL 0.2-1.2 code = 1974-2) Sodium (test code = 136 meq/L 008-392 8603-2) Potassium (test code 3.7 meq/L 3.5-5.1 = 2823-3) Chloride (test code = 100 meq/L 98-107 2074-0) CO2 (test code = 28 meq/L 22-29 2027-9) BUN (test code = 15 mg/dL 7-21 3094-0) Creatinine (test code 0.69 mg/dL 0.57-1.25 = 2160-0) Glucose (test code = 104 mg/dL 70-105 2345-7) Calcium (test code = 8.7 mg/dL 8.4-10.2 91130-1) AST (test code = 11 U/L 5-34 1920-8) ALT (test code = 13 U/L 6-55 1742-6) EGFR (test code = 86 mL/min/1.[place] [address]-8) NOT ACCURATE CREATININE CLEARANCE IN PREDICTING GLOMERULAR FILTRATION RATE . ESTIMATED GFR I S NOT APPLICABLE FOR DIALYSIS PATIEN TS. JUANIS (test code = JUANIS) Casket Assembler ID - BS Lab Interpretation Abnormal (test code = 58764-2) [facility] [id number] 01:11:40 Test Item Value Reference Range Interpretation Comments CRP (test code = 676) 0.55 mg/dL 0.00-0.50 H JUANIS (test code = JUANIS) Casket Assembler ID - BS Lab Interpretation (test Abnormal code = 62938-2) [facility]COM[facility] METABOLIC [id number] 01:11:40 Test Item Value Reference Range Interpretation [...] S NOT APPLICABLE FOR DIALYSIS PATIEN TS. Casket Assembler ID - [id number] 01:11:40 Test Item Value Reference Range Interpretation Comments MAGNESIUM (BEAKER) (test code = 2.0 mg/dL 1.6-2.6 627) Casket Assembler ID - BSC-REACTIVE [id number] 01:11:40 Test Item Value Reference Range Interpretation Comments C-REACTIVE PROTEIN (BEAKER) (test 0.55 mg/dL 0.00-0.50 H code = 676) Casket Assembler ID - BSLACTIC ACID, [id number] 01:03:18 Test Item Value Reference Range Interpretation Comments LACTATE BLOOD VENOUS (2) (BEAKER) 1.11 mmol/L 0.50-2.20 (test code = 2872) Casket Assembler ID - BSBlood gas, [id number] 01:02:34 Test Item Value Reference Range Interpretation Comments pH, Van (test code = 7.47 7.32-7.42 H 2746-6) pCO2, Van (test code = 41 See_Comment [Aut omated message] 855) The system [employer] generated this result transmit veronica reference range : 41 - 51 mm Hg. The reference range was not used to interpret this result as normal/abnormal . pO2, Van (test code = 100 See_Comment H [Auto mated message] 7005-2) The system [employer] [facility] [facility] h generated this result transmit veronica reference range : 25 - 40 mm Hg. The reference range was not used to interpret this result as normal/abnormal . O2 Sat, Van (test code 98.0 % 40.0-70.0 H = 2711-0) HCO3, Van (test code = 29 mmol/L 21-29 46854-6) Base Excess, Van (test 4.7 mmol/L -2.0-3.0 H code = 1927-3) Patient Temperature 36.1 (test code = 8310-5) FIO2 (test code = 1819) 21 Lab Interpretation Abnormal (test code = 00942-0) [facility]Blood [facility], [id number] 01:02:34 Test Item Value Reference Range Interpretation Comments pH, Van (test code = 7.47 7.32-7.42 H 2746-6) pCO2, Van (test code = 41 See_Comment [Aut omated message] 755) The system [employer] h generated this result transmit veronica reference range : 41 - 51 mm Hg. The reference range was not used to interpret this result as normal/abnormal . pO2, Van (test code = 100 See_Comment H [Auto mated message] 2705-2) The system [employer] h generated this result transmit veronica reference range : 25 - 40 mm Hg. The reference range was not used to interpret this result as normal/abnormal . O2 Sat, Van (test code 98.0 % 40.0-70.0 H = 2711-0) HCO3, Van (test code = 29 mmol/L 21- 71602-4) Base Excess, Van (test 4.7 mmol/L -2.0-3.0 H code = 1927-3) Patient Temperature 36.1 (test code = 8310-5) FIO2 (test code = 1819) 21 Lab Interpretation Abnormal (test code = 79279-4) [facility], [id number] 01:02:34 Test Item Value Reference Range Interpretation [...] 1819) 21.0 CBC W/PLT COUNT & AUTO [id number] 00:49:55 Test Item Value Reference Range Interpretation [...] (BEAKER) (test code = 2801) CBC WITH [id number] 01:31:00 Test Item Value Reference Range Interpretation Comments WBC (test code = See_Comment H [Automated 6690-2) message] The sy stem which generated this result transmitted reference range : 4.30 - 11.10 10*3/?L. The reference range was not used to interpret this result as normal/abnormal . RBC (test code = See_Comment L [Automated 789-8) message] The sy stem which generated this [...] RDW-SD (test code = 41.3 fL 39.0-49.9 92549-9) RDW-CV (test code = 13.1 % 12.0-15.5 788-0) PLT (test code = See_Comment [Automated 777-3) message] The sy stem which generated this result transmitted reference range : 166 - 358 10*3/ ?L. The reference r raji was not used to interpret this result as normal/abnormal . MPV (test code = 10.4 fL 9.5-12.9 94541-8) NRBC/100 WBC (test See_Comment [Automat ed code = 3766441735) message] The system which generated this result transmitted reference range : 0.0 - 10.0 /100 WBCs. The refer ence range was not u sed to interpret th is result as normal/abnormal . NRBC x10^3 (test code <0.01 See_Comment [Auto mated = 5442926418) message] The s [employer] which generated this result transmitted reference range : 10*3/?L. The reference range was not used to interpret this result as normal/abnormal . GRAN MAT (NEUT) % 69.2 % (test code = 770-8) IMM GRAN % (test code 0.80 % = 8792372754) LYMPH % (test code = 15.1 % 736-9) MONO % (test code = 11.7 % 5905-5) EOS % (test code = 2.7 % 713-8) BASO % (test code = 0.5 % 706-2) GRAN MAT x10^3(ANC) 8.97 10*3/uL 1.88-7.09 H (test code = 4765602749) IMM GRAN x10^3 (test 0.10 10*3/uL 0.00-0.06 H code = 9538231991) LYMPH x10^3 (test code 1.96 10*3/uL 1.32-3.29 = 731-0) MONO x10^3 (test code 1.52 10*3/uL 0.33-0.92 H = 742-7) EOS x10^3 (test code = 0.35 10*3/uL 0.03-0.39 711-2) BASO x10^3 (test code 0.07 10*3/uL 0.01-0.07 = 704-7) Lab Interpretation Abnormal (test code = 96901-2) [facility] CenterJUNIORMUSC [facility]ENTERDELORIS [id number] 01:25:16 Test Item Value Reference Interpretation Comments Range TROPONIN I (test 0.009 ng/mL See_Comment [Automated code = 8618986432) message] The system which generated this result [...] biotin. Lab Interpretation Normal (test code = 32534-8) [facility] CenterN-TERMINAL [id number] 01:21:54 Test Item Value Reference Range Interpretation Comments NT-proBNP (test code 941 pg/mL See_Comment H [Autom ated = 4704960994) message] The system which generated this result transmitted reference range : <=125. The reference range was not used to interpret this result as normal/abnormal . JUANIS (test code = JUANIS) Biotin has been reported to cause a negative bias, interpret results relative to patient's use of biotin. Lab Interpretation Abnormal (test code = 07512-0) [facility]. METABOLIC PANEL ([id number] 01:13:16 Test Item Value Reference Range Interpretation Comments NA (test code = 129 mmol/L 135-145 L 0071952453) K (test code = 4.4 mmol/L 3.5-5.0 2056202889) CL (test code = 95 mmol/L 98-108 L 0085639013) CO2 TOTAL (test code = 24 mmol/L 23-31 3929521477) AGAP (test code = 2-16 7266463749) BUN (test code = 9 mg/dL 7-23 7184046967) GLUCOSE (test code = 97 mg/dL 70-110 2162959798) CREATININE (test code = 0.55 mg/dL 0.50-1.04 6310597728) TOTAL BILI (test code = 0.8 mg/dL 0.1-1.8 2650326515) CALCIUM (test code = 8.9 mg/dL 8.6-10.6 1302817234) T PROTEIN (test code = 6.8 g/dL 6.3-8.2 4269497928) ALBUMIN (test code = 3.6 g/dL 3.5-5.0 1917795935) ALK PHOS (test code = 89 U/L 34-122 2153519617) ALTv (test code = 16 U/L 5-35 1742-6) AST(SGOT) (test code = 31 U/L 13-40 1472296046) eGFR (test code = mL/min/1.73m2 4875985603) JUANIS (test code = JUANIS) Association of [...] tests). Lab Interpretation Abnormal (test code = 83996-7) [facility] CenterPROTHROMBIN TIME / [id number] 01:03:10 Test Item Value Reference Range Interpretation Comments PROTIME PATIENT (test See_Comment [Auto mated message] code = 5964-2) The system [employer] generated this result transmitted ref erence range: 12.0 - 1 4.7 Seconds. The re ference range was not u sed to interpret this result as normal/abnor mal. INR (test code = 6301-6) Nor mal INR <1.1; Warfarin Therap eutic range 2.0 to 3. 0 or 2.5 to 3.5, dep ending upon the indica tions. Lab Interpretation (test Normal code = 92030-5) [facility]"
[2022-01-14] MEDS ORDERED: ALBUTEROL 2.5 MG/3 ML NEB SOL ONE ×2 (14:32→15:58)
[2022-01-14 14:38] LABS: Absolute Lymphocytes (CBC) 0.6 K/uL (0.7-4.9); Hematocrit 30.7 % (36.0-45.0); Lymphocytes % 7.5 % (15.3-44.8); MPV 7.8 fL (7.6-11.3); RBC Red Blood Cell Count 3.78 M/uL (3.86-4.86)
[2022-01-14 14:56] LABS: Troponin High Sensitivity 10.7 pg/mL (<58.9)
[2022-01-14 15:32] LABS: SARS-COV-2 RT PCR NEGATIVE (NEGATIVE)
--- NOTE | 2022-01-14 15:45 | RAD REPORT ---
EXAM DESCRIPTION: RAD - Chest Single View - 01/14/2022 2:45 pm CLINICAL HISTORY: SOB COMPARISON: Portable 10/30/2021 TECHNIQUE: AP portable chest image was obtained 01/14/2022 2:45 pm . FINDINGS: Chronic interstitial lung disease is present similar to comparison. No superimposed mass o r consolidation. No significant degree of failure or volume overload. Heart and vasculature are normal. No measurable pleural effusion and no pneumothorax. No acute bony abnormality seen. No acute aortic findings suspected. IMPRESSION: Chronic interstitial lung disease is present similar to comparison.
[2022-01-14] MEDS ORDERED: MAGNESIUM SULFATE 1 gm IVPB 1 GM/100 ML BAG IV ONE (15:59)
--- NOTE | 2022-01-14 17:13 | EDPHYS ---
Physician Documentation [facility] Name: Irina Pardo Age: 66 yrs Sex: Female : 1955 Arrival Date: 01/14/2022 Time: 13:07 Bed 3 Private MD: ED Physician Dennis Flores HPI: 01/14 13:51 This 66 yrs old Female presents to ER via EMS with complaints of Shortness Of Breath. pm1 13:51 The patient has shortness of breath at rest. pm1 13:51 Onset: The symptoms/episode began/occurred 1 week(s) ago. Duration: The symptoms are pm1 continuous, and are steadily getting worse. The patient's shortness of breath is aggravated by exertion. Associated signs and symptoms: Pertinent negatives: chest pain, fever, nausea, vomiting. Severity of symptoms: in the emergency department the symptoms are worse. The patient has experienced similar episodes in the past, several times. The patient has not recently seen a physician. Historical: - Allergies: 13:21 Iodine; dw3 13:21 SHELLFISH; dw3 - PMHx: 13:21 COPD; CVA; high cholesterol; dw3 - Immunization history:: Client reports receiving the 2nd dose of the Covid vaccine. - Social history:: Smoking status: Patient/guardian denies using tobacco, the patient reports quitting approximately 1 years ago. ROS: 13:51 Constitutional: Negative for fever, chills, and weight loss, Cardiovascular: Negative pm1 for chest pain, palpitations, and edema. 13:51 Abdomen/GI: Negative for abdominal pain, nausea, vomiting, diarrhea, and constipation, Back: Negative for injury and pain, MS/Extremity: Negative for injury and deformity, Skin: Negative for injury, rash, and discoloration, Neuro: Negative for headache, weakness, numbness, tingling, and seizure. 13:51 Respiratory: Positive for shortness of breath, wheezing, Negative for cough. 13:51 All other systems are negative. Exam: 13:51 Constitutional: This is a well developed, well nourished patient who is awake, alert, pm1 and in no acute distress. Head/Face: Normocephalic, atraumatic. 13:51 Back: No spinal tenderness. No costovertebral tenderness. Full range of motion. Skin: Warm, dry with normal turgor. Normal color with no rashes, no lesions, and no evidence of cellulitis. MS/ Extremity: Pulses equal, no cyanosis. Neurovascular intact. Full, normal range of motion. 13:51 Cardiovascular: Exam negative for acute changes, Rate: normal, Rhythm: regular, Pulses: no pulse deficits are appreciated, Heart sounds: normal, normal S1and S2. 13:51 Respiratory: the patient does not display signs of respiratory distress, Breath sounds: wheezing: expiratory is heard diffusely. 13:51 Abdomen/GI: Exam negative for acute changes, Inspection: abdomen appears normal, Palpation: abdomen is soft and non-tender. 13:51 Neuro: Exam negative for acute changes, Orientation: is normal, Mentation: is normal, Motor: moves all fours, contracture to right upper extremity. Vital Signs: 13:07 BP 135 / 79; Pulse 90; Temp 98.4; Pulse Ox 100% on 3 lpm NC; dw3 13:07 Weight 58.97 kg; Height 5 ft. 3 in. (160.02 cm); dw3 15:15 BP 137 / 89; Pulse 96; Resp 19; Temp 98.7; Pulse Ox 98% 3 lpm ; Pain 5/10; dw3 16:14 BP 133 / 78; Pulse 101; Resp 15; Pulse Ox 100% ; jl7 17:13 BP 122 / 90; Pulse 100; Resp 19; Temp 98.4; Pulse Ox 100% 3 lpm ; Pain 0/10; dw3 19:30 BP 133 / 89; Pulse 105; Resp 22; Pulse Ox 100% on 2 lpm NC; lp1 20:25 BP 145 / 95; Pulse 104; Resp 22; Pulse Ox 100% on 2 lpm NC; tw5 13:07 Body Mass Index 23.03 (58.97 kg, 160.02 cm) dw3 13:07 pt wears oxygen at home at 3L dw3 15:15 pt states she's having pains in her neck dw3 MDM: 13:29 Patient medically screened. pm1 17:10 Data reviewed: vital signs. Data interpreted: Pulse oximetry: on 3L(s) per nasal pm1 canula, is 100 %. Interpretation: patient uses 3L NC at home on a regular basis. 17:10 Counseling: I had a detailed discussion with the patient and/or guardian regarding: the pm1 historical points, exam findings, and any diagnostic results supporting the discharge/admit diagnosis, lab results, radiology results, the need for outpatient follow up, a family practitioner, a physics technician, to return to the emergency department if symptoms worsen or persist or if there are any questions or concerns that arise at home. 17:16 ED course: Patient does not want to be admitted to the hospital or to be sent to a pm1 rehabilitation facility. Her shortness of breath has improved with treatment in the ER and she wants to go home. 18:38 ED course: Informed by María Elena FUENTES that the patient's son wants the patient to be pm1 admitted for rehabilitation. I contacted Pat from [facility]. If the patient is discharged to home, she can have a home evaluation for rehabilitation performed tomorrow morning and then be transferred to the facility. 01/14 13:51 Order name: Basic Metabolic Panel; Complete Time: 15:37 pm1 01/14 13:51 Order name: CBC with Diff; Complete Time: 14:41 pm01/14 13:51 Order name: Magnesium; Complete Time: 15:37 pm01/14 13:51 Order name: NT PRO-BNP; Complete Time: 15:37 pm1 01/14 13:51 Order name: Troponin HS; Complete Time: 15:37 pm01/14 13:51 Order name: COVID-19/FLU A+B (Document "Date of Onset" if Symptomatic); Complete Time: pm1 15:37 01/14 13:51 Order name: XRAY Chest (1 view); Complete Time: 15:47 pm01/14 13:51 Order name: EKG; Complete Time: 13:53 pm01/14 13:51 Order name: Cardiac monitoring; Complete Time: 14:31 pm01/14 13:51 Order name: EKG - Nurse/Tech; Complete Time: 14:32 pm01/14 13:51 Order name: IV Saline Lock; Complete Time: 14:32 pm01/14 13:51 Order name: Labs collected and sent; Complete Time: 14:32 pm1 01/14 13:51 Order name: O2 Per Protocol; Complete Time: 14:32 pm01/14 13:51 Order name: O2 Sat Monitoring; Complete Time: 14:32 pm1 Administered Medications: 14:17 CANCELLED (Physician Discretion; Given by EMSs): Albuterol - atroVENT (ipratropium) pm1 (3:1) (2.5 mg - 0.5 mg) 3 ml Nebulizer once 14:17 CANCELLED (Physician Discretion; Already given by EMSn): SOLU-Medrol pm1 (methylPrednisoLONE) 125 mg IVP once 14:31 Drug: Albuterol 5 mg Route: Inhalation; aa5 14:50 Follow up: Response: No adverse reaction dw3 16:05 Drug: Magnesium Sulfate 1 grams Route: IVPB; Infused Over: 1 hrs; Site: left hand; dw3 16:47 Follow up: Response: No adverse reaction dw3 16:05 Drug: Albuterol 2.5 mg Route: Inhalation; dw3 16:47 Follow up: Response: No adverse reaction dw3 Disposition: 01/15 07:23 Co-signature as Attending Physician, Dennis Flores MD I agree with the assessment and kdr plan of care. Disposition Summary: 01/14/22 17:12 Discharge Ordered Location: Home pm1 Problem: new pm1 Symptoms: have improved pm1 Condition: Stable pm1 Diagnosis - COPD/ Chronic obstructive pulmonary disease, unspecified pm1 Followup: pm1 - With: Emergency Department - When: As needed - Reason: Worsening of condition Followup: pm1 - With: Private Physician - When: 2 - 3 days - Reason: Recheck today's complaints, Continuance of care, Re-evaluation by your physician Discharge Instructions: - Discharge Summary Sheet pm1 - Chronic Obstructive Pulmonary Disease pm1 Forms: - Medication Reconciliation Form pm1 - Thank You Letter pm1 - Antibiotic Education pm1 - Prescription Opioid Use pm1 Prescriptions: - Prednisone 20 mg Oral Tablet - take 3 tablets by ORAL route once daily for 5 days; 15 tablet; Refills: 0, pm1 Product Selection Permitted - Zithromax Z-Andrea 250 mg Oral Tablet - take 1 tablet by ORAL route as directed for 5 days Day 1 - take two (2) tablets pm1 one time. Day 2, 3, 4 , 5 take one (1) tablet once daily.; 6 tablet; Refills: 0, Product Selection Permitted - Guaifenesin AC 10-100 mg/5 mL Oral Liquid - take 10 milliliters by ORAL route every 4 hours As needed; 240 milliliter; pm1 Refills: 0, Product Selection Permitted Signatures: Dispatcher [employer] EDMS Dennis Flores MD MD kdr Kavitha Melendez RN RN aa5 Mert Vivas NP MEDIA CLERK pm1 Kika Valadez RN RN dw3 Corrections: (The following items were deleted from the chart) 01/14 14:17 13:51 Albuterol - atroVENT (ipratropium) (3:1) (2.5 mg - 0.5 mg) 3 ml Nebulizer once pm1 ordered. pm1 14:17 13:51 SOLU-Medrol (methylPrednisoLONE) 125 mg IVP once ordered. pm1 pm1
--- NOTE | 2022-01-14 17:13 | ER ---
Nurse's Notes [facility] Name: Irina Pardo Age: 66 yrs Sex: Female : 1955 Arrival Date: 01/14/2022 Time: 13:07 Bed 3 Private MD: Diagnosis: COPD/ Chronic obstructive pulmonary disease, unspecified Presentation: 01/14 13:07 Chief complaint: Patient states: increased shortness of breath, history of COPD, dw3 increased cough. 13:07 Coronavirus screen: Vaccine status: Patient reports receiving the 2nd dose of the covid dw3 vaccine. cough unrelated to allergies, shortness of breath. Ebola Screen: No symptoms or risks identified at this time. Initial Sepsis Screen: Does the patient meet any 2 criteria? RR > 20 per min. Does the patient have a suspected source of infection? Yes: Productive cough/pneumonia. Risk Assessment: Do you want to hurt yourself or someone else? Patient reports no desire to harm self or others. Onset of symptoms is unknown. 13:07 Method Of Arrival: EMS 3 13:07 Acuity: FRANK 3 dw3 13:25 Care prior to arrival: Medication(s) given: Albuterol Neb x 1, Atrovent Neb x 1, dw3 solumedrol 125 mg IV IV initiated. 20 GA, in the left hand. Triage Assessment: 13:07 General: Appears in no apparent distress. Behavior is calm, cooperative, quiet. Pain: dw3 Denies pain. EENT: No signs and/or symptoms were reported regarding the EENT system. Neuro: Level of Consciousness is awake, alert, obeys commands, Oriented to person, place, time, situation, Legal Billing Specialist are weak on right pt suffered a stroke and as a result the right side of her body has become weak. pt's right arm is contracted . Full function in left hand(s) arm(s) leg(s) foot/feet Speech with expressive aphasia noted. Respiratory: Reports shortness of breath at rest on exertion Breath sounds are diminished bilaterally. GI: No signs and/or symptoms were reported involving the gastrointestinal system. Abdomen is round and soft Bowel sounds present X 4 quads. : No signs and/or symptoms were reported regarding the genitourinary system. Derm: Skin is pt's skin appears to have bruises all over her body from the neck down. Pt's face also has small bloody areas on her right cheek and around her mouth. When asked if she fell pt stated "yes then no.". Musculoskeletal: Range of motion: limited in right shoulder, right elbow, right wrist, right hip, right knee and right ankle. Historical: - Allergies: 13:21 Iodine; dw3 13:21 SHELLFISH; dw3 - PMHx: 13:21 COPD; CVA; high cholesterol; dw3 - Immunization history:: Client reports receiving the 2nd dose of the Covid vaccine. - Social history:: Smoking status: Patient/guardian denies using tobacco, the patient reports quitting approximately 1 years ago. Screenin:55 Abuse screen: Denies threats or abuse. Denies injuries from another. Nutritional lp1 screening: No deficits noted. Tuberculosis screening: No symptoms or risk factors identified. Fall Risk Total Thomas Fall Scale indicates High Risk Score (45 or more points). Fall prevention measures have been instituted. Side Rails Up X 2 Frequent Obs/Assessments Occuring As available patient and family educated on Fall Prevention Program and Strategies. Assessment: 19:10 Reassessment: Spoke to pt's son, Toribio Pardo, over the phone per pt's request for ride aa5 home. Pt's son stated that he believes his mother should be placed in a rehab facility due to increased weakness, difficulty with ADLs and increased SOB. Told pt's son that I will speak to provider and notify of his concerns taking care of his mom at home. TEST INSPECTION ENGINEER was notified. TEST INSPECTION ENGINEER was able to set up for rehab evaluation at home for tomorrow with [facility] rehab and pt's son was notified by TEST INSPECTION ENGINEER of availability for home rehab evaluation, pt's son did not agree with POC to d/c home and have home rehab evaluation tomorrow. I spoke to pt's son again, pt's son became verbally abusive over the phone and I notified him of need to have an adequate conversation about his concerns so that they can be addressed appropriately, pt's son calmed down and stated that he was able to set up admission to [facility] but not until Sunday, pt's son still unwilling to take pt home and wait until Sunday [facility]. TEST INSPECTION ENGINEER and I spoke to patient, pt reported that she does not want to be hospitalized and she does not want to go to rehabilitation, reports she is willing to go to [facility]. Pt's son agreed to come in person to discuss POC options with provider. . 19:39 General: son is at the bedside stating " I cannot take her home. What am I and my mohit suppose to do if she needs a breathing treatment in the middle of the night and we dont hear her yelling for us? THIS HAS BEEN GOING ON FOR FAR TO LONG!" Son and Ms. Pardo have agreed that she will go to the [facility] on Sunday. He further says " I CANNOT DEAL WITH THIS ANY LONGER, SHE CANNOT GO HOME WITH ME.". 19:45 Reassessment: Patient's son at bedside, appears agitated about patient's situation of lp1 ability to care for self at home. 19:45 General: Appears in no apparent distress. unkempt, Behavior is appropriate for age. lp1 Neuro: Level of Consciousness is awake, alert, obeys commands, Oriented to person, place, time, situation, Hx of CVA, deficits to right side. Cardiovascular: Patient's skin is warm and dry. Respiratory: Airway is patent Respiratory effort is even, O2 via NC at 2L at this time Onset: The symptoms/episode began/occurred gradually, the patient has mild shortness of breath. Derm: Bruising that is multiple bruising to bilateral arms in various stages of healing; Son at bedside reports patient falls out of bed frequently when trying to get to bedside commode . Musculoskeletal: contracture noted to right arm. 20:04 Reassessment: SonToribio, agitated, appears to be yelling at patient, "You can't even lp1 take care of yourself, get up and try to walk! Show them you can't even get yourself up!"; Son walked out of ED at this time, declines taking patient back to her residence. Vital Signs: 13:07 BP 135 / 79; Pulse 90; Temp 98.4; Pulse Ox 100% on 3 lpm NC; dw3 13:07 Weight 58.97 kg; Height 5 ft. 3 in. (160.02 cm); dw3 15:15 BP 137 / 89; Pulse 96; Resp 19; Temp 98.7; Pulse Ox 98% 3 lpm ; Pain 5/10; dw3 16:14 BP 133 / 78; Pulse 101; Resp 15; Pulse Ox 100% ; jl7 17:13 BP 122 / 90; Pulse 100; Resp 19; Temp 98.4; Pulse Ox 100% 3 lpm ; Pain 0/10; dw3 19:30 BP 133 / 89; Pulse 105; Resp 22; Pulse Ox 100% on 2 lpm NC; lp1 20:25 BP 145 / 95; Pulse 104; Resp 22; Pulse Ox 100% on 2 lpm NC; tw5 13:07 Body Mass Index 23.03 (58.97 kg, 160.02 cm) dw3 13:07 pt wears oxygen at home at 3L dw3 15:15 pt states she's having pains in her neck dw3 ED Course: 13:07 Patient arrived in ED. jl7 13:07 Arm band placed on. dw3 13:11 Mert Vivas NP is PHCP. pm1 13:11 Dennis Flores MD is Attending Physician. pm1 13:16 Kika Valadez RN is Primary Nurse. dw3 13:21 Triage completed. dw3 14:10 Initial lab(s) drawn, by me, sent to lab. aa5 14:30 EKG done, by ED staff, reviewed by Mert Vivas NP. aa5 14:47 XRAY Chest (1 view) In Process Unspecified. EDMS 19:30 Patient has correct armband on for positive identification. Bed in low position. Call lp1 light in reach. Side rails up X2. [employer] on. Pulse ox on. NIBP on. 20:25 No provider procedures requiring assistance completed. IV discontinued, intact, tw5 bleeding controlled, No redness/swelling at site. Pressure dressing applied. Administered Medications: 14:17 CANCELLED (Physician Discretion; Given by EMSs): Albuterol - atroVENT (ipratropium) pm1 (3:1) (2.5 mg - 0.5 mg) 3 ml Nebulizer once 14:17 CANCELLED (Physician Discretion; Already given by EMSn): SOLU-Medrol pm1 (methylPrednisoLONE) 125 mg IVP once 14:31 Drug: Albuterol 5 mg Route: Inhalation; aa5 14:50 Follow up: Response: No adverse reaction dw3 16:05 Drug: Magnesium Sulfate 1 grams Route: IVPB; Infused Over: 1 hrs; Site: left hand; dw3 16:47 Follow up: Response: No adverse reaction dw3 16:05 Drug: Albuterol 2.5 mg Route: Inhalation; dw3 16:47 Follow up: Response: No adverse reaction dw3 Outcome: 17:12 Discharge ordered by MD. pm1 20:25 Discharged to home via wheelchair, with family. tw5 20:25 Condition: stable 20:25 Discharge instructions given to patient, family, Instructed on follow up and referral plans. medication usage, benefits of quitting smoking, Demonstrated understanding of instructions, follow-up care, medications, Prescriptions given X 3. 20:27 Patient left the ED. tw5 Signatures: Dispatcher [employer] EDMS Kavitha Melendez RN RN aa5 Kemi Carmichael RN RN lp1 Mert Vivas, TEST INSPECTION ENGINEER TEST INSPECTION ENGINEER pm1 Elvia Varner RN RN jl7 Guadalupe Noble tw5 Kika Valadez RN RN dw3 Corrections: (The following items were deleted from the chart) 15:13 14:57 General: Appears in no apparent distress. Behavior is calm, cooperative, quiet, dw3 dw3 15:13 14:57 Pain: Denies pain. dw3 dw3 15:13 14:57 EENT: No signs and/or symptoms were reported regarding the EENT system. dw3 dw3 15:13 14:57 Neuro: Level of Consciousness is awake, alert, obeys commands, Oriented to dw3 person, place, time, situation, Legal Billing Specialist are weak on right pt suffered a stroke and as a result the right side of her body has become weak. pt's right arm is contracted . Full function in left hand(s) arm(s) leg(s) foot/feet Speech with expressive aphasia noted, dw3 15:13 14:57 Respiratory: Reports shortness of breath at rest on exertion Breath sounds are dw3 diminished bilaterally. dw3 15:13 14:57 GI: No signs and/or symptoms were reported involving the gastrointestinal system. dw3 Abdomen is round and soft Bowel sounds present X 4 quads. dw3 15:13 14:57 : No signs and/or symptoms were reported regarding the genitourinary system. dw3dw3 15:13 14:57 Derm: Skin is pt's skin appears to have bruises all over her body from the neck dw3 down. Pt's face also has small bloody areas on her right cheek and around her mouth. When asked if she fell pt stated "yes then no." dw3 15:13 14:57 Musculoskeletal: Range of motion: limited in right shoulder, right elbow, right dw3 wrist, right hip, right knee and right ankle dw3 19:55 19:51 Reassessment: Patient's son at bedside, lp1 lp1 19:58 19:45 Respiratory: Airway is patent Respiratory effort is even, O2 via NC at 2L at this lp1 time lp1 19:59 19:45 Respiratory: Airway is patent Respiratory effort is even, O2 via NC at 2L at this lp1 time the patient has mild shortness of breath lp1
[2022-01-14 20:36] VITALS: O2SAT 100
[2022-01-14 20:37] VITALS: TEMP 98.4
[2022-01-14 20:40] VITALS: BP 145/95
== END 2022-01-14 20:27 | disposition home or self-care (01) ==
LOC: ER 12:54
DX: J44.9 Chronic obstructive pulmonary disease, unspecified (principal); Z20.822 Contact with and (suspected) exposure to COVID-19; Z86.73 Personal history of transient ischemic attack (TIA), and cerebral infarction without residual deficits; Z91.013 Allergy to seafood; Z91.048 Other nonmedicinal substance allergy status
CPT/HCPCS: 93005; 85025; 80048; 36415; 83735; 84484; 83880; 0240U; 71045; 96374; 99285; J3475

== ENCOUNTER 2022-01-20 07:13 | Inpatient (IN) | payer OTHER ==
--- OUTSIDE RECORDS SUMMARY | 2022-01-20 07:20 | XMS REPORT | Continuity of Care Document ---
:1955 Author Organization [facility] t Address [address] [place] [address] Care Team Providers Name Role Phone Pcp [...] Expiration Date Ellie garcia MEDICARE PART A [id number] 1998 \\T\\ B 00:00:00 MEDICAID OF [place] [id number] 2020 00:00:00 Problems Condition Condition Condition Status Onset Resolution Last Treating Co mments Source Name Details Category Date Date Treatment Clinician Date COPD COPD Disease Active 2020-[address] [facility] exacerb[facility] exacerbati 11-08 Jaqui kes - on on 00:00: [facility] 00 Center Bacteremia Bacteremia Disease Active 2020-09 U nivers 11-08 ity of 00:00: [place] 00 Medical Branch [...] of (acquired) (acquired) 00:00: g of this [place] 00 note Medical might be Branch different from the original. ICD10 Diagnosis Term [employer] COPD COPD Disease Active Univers (chronic (chronic 01-06 [place]y [place] obstructiv obstructiv [place] 00 Medical pulmonary pulmonary Bran ch disease) disease) Vitamin D Vitamin D Disease Active Overview: Univers deficiency deficiency - Formattin ity of 00:00: g of this [place] note Medical might be Branch different from the original. ICD10 Diagnosis Term [employer] Osteoporos Osteoporos Disease Active U nivers is is - ity of 00:00: [place] 00 Medical Branch CVA CVA Disease Active Univers (cerebral (cerebral 01-06 ity of vascular vascular 00:00: [place] accident) accident) 00 [facility] Branch Joint Joint Disease Active Univers contractur contractur 01-06 it y of e of hand, e of hand, [place] right right Medical Branch Tobacco Tobacco Disease Active Univers abuse abuse 01-06 ity of 00:00: [place] [facility] Marijuana Marijuana Disease Active Uni vers abuse abuse 01-06 ity of 00:00: [place] 00 Medical Branch COPD COPD Disease Active Univers [...] ity of Derived adverse 00:00: [place] reaction [facility] s Branch SHELLFIS DRUG Active SOB 2019-09 Univers H INGREDI 09-20 ity of DERIVED 00:00: [place] [facility] Shellfis Drug Active Shortness Of 2019-[address] [facility] Allergy Breath, 09-20 [facility] Derived Swelling 00:00: Medical 00 Center Codeine Propensi Active Swelling throat Unive rs ty to 12-18 ity of adverse 00:00: [place] reaction [facility] s Branch CODEINE DRUG Active High Swelling Univers INGREDI - ity of 00:00: [place] 00 Medical Branch CODEINE Allergy Active High Swelling [facility] Medical [facility] Center Codeine Drug Active Swelling throat [facility] - [facility] Medical Center Iodine Propensi Active Swelling (shell Univer s ty to 01-06 fish) ity of adverse 00:00: throat [place] reaction swells [facility] s Branch IODINE DRUG Active High Swelling Univers INGREDI 01-06 ity of 00:00: [place] [facility] IODINE Allergy Active High Swelling [facility] 4[facility]22 [facility] - 00:[facility]: Medical 00 Center Iodine Drug Active Swelling (shell [facility] Allergy 4-22 fish) [facility] - 00:00: throat Medical [address] [place] [address] Social History Social Habit Start Date Stop Date Quantity Comments Source History SDOH [facility] - Alcohol Std Drinks Medica l Center History SDOH [facility] - Alcohol Binge Medical Tnaner ter History SDOH [facility] - Alcohol Comment Medical C enter Exposure to Not sure University of SARS-CoV-2 (event) [facility] Tobacco use and 2021-09-08 2021-09-[address] [facility] Jaqui kes - exposure 00:00:00 00:00:00 [facility] Alcohol intake 2021-09-08 2021-09-[address] [facility] [address] [facility] - 00:00:00 00:00:00 non-drinker Medical Cente r (finding) History SDOH 2021-09-08 2021-09-[address] [facility] - Alcohol Frequency 00:00:00 00:00:00 [facility] Tobacco Comment 2021-05-03 2021-05-03 Used to smoke 2 Univ ersity of 00:00:00 00:00:00 packs per day- [facility] zia quit aug 2020 Branch Cigarettes smoked 2020-10-13 2020-10-13 Univers ity of current (pack per 00:00:00 00:00:00 [facility] ) - Reported Branch Cigarette 2020-10-13 2020-10-13 University of pack-years 00:00:00 00:00:00 [facility] History of tobacco 2020-06-20 Cigarette Smoker University of use 00:00:00 [facility] Sex Assigned At [address] [facility] Jaqui kes - 00:00:00 00:00:00 [facility] Smoking Status Start Date Stop Date Source Former smoker 2021-09-08 00:00:00 2021-09-08 00:00:[address] [facility] - [facility] Medications Ordered Filled Start Stop Current Ordering Indication Dosage Frequency Signature Comments Components Source Medication Medication Date Date Medication? Clinician (SIG) Name Name albuterol Yes [id number] 2.5mg Inhale 3 Univers 2.5 mg /3 4-27 mL every 4 ity of mL (0.083 00:00: (four) [place] %) 00 hours. May Medical nebulizer also Branch solution nebulize one extra every 6 hours. albuterol 2-0 Yes [id number] 2.5mg Inhale 3 Univers 2.5 mg /3 4-27 mL every 4 ity of mL (0.083 00:00: (four) [place] %) 00 hours. May Medical nebulizer also Branch solution nebulize one extra every 6 hours. albuterol 2-0 Yes [id number] 2.5mg Inhale 3 Univers 2.5 mg /3 4-27 mL every 4 ity of mL (0.083 00:00: (four) [place] %) 00 hours. May Medical nebulizer also Branch solution nebulize one extra every 6 hours. albuterol 2-0 Yes [id number] 2.5mg Inhale 3 Univers 2.5 mg /3 4-15 mL every 4 ity of mL (0.083 00:00: (four) [place] %) 00 hours. May Medical nebulizer also Branch solution nebulize one extra every 6 hours. albuterol 2021-0 Yes [id number] 2.5mg Inhale 3 Univers 2.5 mg /3 4-15 mL every 4 ity of mL (0.083 00:00: (four) [place] %) 00 hours. May Medical nebulizer also Branch solution nebulize one extra every 6 hours. albuterol 2-0 Yes [id number] 2.5mg Inhale 3 Univers 2.5 mg /3 4-15 mL every 4 ity of mL (0.083 00:00: (four) [place] %) 00 hours. May Medical nebulizer also Branch solution nebulize one extra every 6 hours. albuterol 2021-0 2021- No [id number] 2.5mg Inhale 3 Univers 2.5 mg /3 [...] gram/250 mL for 2 PgBk days. vancomycin- 2020-09 No 1250mg Q24H Inject [address] [...] 25 MCG morning. tablet levothyroxi 2020-09 Yes [id number] 25ug Take 1 Univers ne 25 mcg 2-09 tablet by ity o f tablet 00:00: mouth [place] 00 every Medical morning. Branch clopidogreL 2020-09 Yes [id number] 75mg Take 1 Univers 75 mg 2-09 tablet by ity of tablet 00:00: mouth [place] 00 daily. Medical Branch levothyroxi 2020-09 Yes [id number] 25ug Take 1 Univers ne 25 mcg 2-09 tablet by ity o f tablet 00:00: mouth [place] 00 every Medical morning. Branch clopidogreL 2020-09 Yes [id number] 75mg Take 1 Univers 75 mg 2-09 tablet by ity of tablet 00:00: mouth [place] 00 daily. Medical Branch levothyroxi 2020-09 Yes [id number] 25ug Take 1 Univers ne 25 mcg 2-09 tablet by ity o f tablet 00:00: mouth [place] 00 every Medical morning. Branch clopidogreL 2020-09 Yes [id number] 75mg Take 1 Univers 75 mg 2-09 tablet by ity of tablet 00:00: mouth [place] 00 daily. Medical Branch levothyroxi 2020-09 Yes [id number] 25ug Take 1 Univers ne 25 mcg 2-09 tablet by ity o f tablet 00:00: mouth [place] 00 every Medical morning. Branch clopidogreL 2020-09 Yes [id number] 75mg Take 1 Univers 75 mg 2-09 tablet by ity of tablet 00:00: mouth [place] 00 daily. Medical Branch levothyroxi 2020-09 Yes [id number] 25ug Take 1 Univers ne 25 mcg 2-09 tablet by ity o f tablet 00:00: mouth [place] 00 every Medical morning. Branch clopidogreL 2020-09 Yes [id number] 75mg Take 1 Univers 75 mg 2-09 tablet by ity of tablet 00:00: mouth [place] 00 daily. Medical Branch levothyroxi 2020-09 Yes [id number] 25ug Take 1 Univers ne 25 mcg 2-09 tablet by ity o f tablet 00:00: mouth [place] 00 every Medical morning. Branch clopidogreL 2020-09 Yes [id number] 75mg Take 1 Univers 75 mg 2-09 tablet by ity of tablet 00:00: mouth [place] 00 daily. Medical Branch levothyroxi 2020-09 Yes [id number] 25ug Take 1 Univers ne 25 mcg 2-09 tablet by ity o f tablet 00:00: mouth [place] 00 every Medical morning. Branch clopidogreL 2020-09 Yes [id number] 75mg Take 1 Univers 75 mg 2-09 tablet by ity of tablet 00:00: mouth [place] 00 daily. Medical Branch levothyroxi 2020-09 Yes [id number] 25ug Take 1 Univers ne 25 mcg 2-09 tablet by ity o f tablet 00:00: mouth [place] 00 every Medical morning. Branch clopidogreL 2020-09 Yes [id number] 75mg Take 1 Univers 75 mg 2-09 tablet by ity of tablet 00:00: mouth [place] 00 daily. Medical Branch levothyroxi 2020-09 Yes [id number] 25ug Take 1 Univers ne 25 mcg 2-09 tablet by ity o f tablet 00:00: mouth [place] 00 every Medical morning. Branch clopidogreL 2020-09 Yes [id number] 75mg Take 1 Univers 75 mg 2-09 tablet by ity of tablet 00:00: mouth [place] 00 daily. Medical Branch levothyroxi 2020-09 Yes [id number] 25ug Take 1 Univers ne 25 mcg 2-09 tablet by ity o f tablet 00:00: mouth [place] 00 every Medical morning. Branch clopidogreL 2020-09 Yes [id number] 75mg Take 1 Univers 75 mg 2-09 tablet by ity of tablet 00:00: mouth [place] 00 daily. Medical Branch ipratropium 2020-09- No 9mL 9 mL, Univ ers -albuteroL 10-25 Inhalation it y of (DUONEB) 02:00: 01:05 , ONCE, 1 [place] as 0.5 mg-3 00 :00 dose, On Medical mg(2.5 mg Tue Branch base)/3 mL 08/23/21 at nebulizer 1999, [...] MG 00:00: mouth Medical tablet 00 daily. [place] benzonatate 2020-09 Yes 200mg Take [address] (TESSALON) 2-07 mg by [facility] - 200 MG 00:00: mouth 3 Medical capsule 00 (three) Center times daily as needed. predniSONE 2020-09 Yes 1{tbl} QD Take [address] [facility] (DELTASONE) 2-07 tablet by [facility] - 50 MG 00:00: mouth Medical tablet 00 daily. [place] albuterol 2020-09 Yes [id number] 2{puff} Inhale 2 Univers 90 2-07 Puffs ity of mcg/actuati 00:00: every 4 [place] as on inhaler 00 (four) Medical hours as Branch needed for Wheezing or Shortness of Breath. albuterol 2020-09 Yes [id number] 2.5mg Inhale 3 Univers 2.5 mg /3 2-07 mL every 4 ity of mL (0.083 00:00: (four) [place] %) 00 hours. May Medical nebulizer also Branch solution nebulize one extra every 6 hours. predniSONE 2020-09 Yes [id number] 50mg Take 1 Univers 50 mg 2-07 tablet by ity of tablet 00:00: mouth [place] 00 daily. Medical Branch benzonatate 2020-09 Yes [id number] 200mg Take 1 Univers 200 mg 2-07 capsule by ity of capsule 00:00: mouth 3 [place] 00 (three) Medical times Branch daily as needed for Cough. albuterol 2020-09 Yes [id number] 2{puff} Inhale 2 Univers 90 2-07 Puffs ity of mcg/actuati 00:00: every 4 [place] as on inhaler 00 (four) Medical hours as Branch needed for Wheezing or Shortness of Breath. albuterol 2020-09 Yes [id number] 2.5mg Inhale 3 Univers 2.5 mg /3 2-07 mL every 4 ity of mL (0.083 00:00: (four) [place] %) 00 hours. May Medical nebulizer also Branch solution nebulize one extra every 6 hours. predniSONE 2020-09 Yes [id number] 50mg Take 1 Univers 50 mg 2-07 tablet by ity of tablet 00:00: mouth [place] 00 daily. Medical Branch benzonatate 2020-09 Yes [id number] 200mg Take 1 Univers 200 mg 2-07 capsule by ity of capsule 00:00: mouth 3 [place] 00 (three) Medical times Branch daily as needed for Cough. albuterol 2020-09 Yes [id number] 2{puff} Inhale 2 Univers 90 2-07 Puffs ity of mcg/actuati 00:00: every 4 [place] on inhaler 00 (four) Medical hours as Branch needed for Wheezing or Shortness of Breath. albuterol 2020-09 Yes [id number] 2.5mg Inhale 3 Univers 2.5 mg /3 2-07 mL every 4 ity of mL (0.083 00:00: (four) [place] %) 00 hours. May Medical nebulizer also Branch solution nebulize one extra every 6 hours. predniSONE 2020-09 Yes [id number] 50mg Take 1 Univers 50 mg 2-07 tablet by ity of tablet 00:00: mouth [place] 00 daily. Medical Branch benzonatate 2020-09 Yes [id number] 200mg Take 1 Univers 200 mg 2-07 capsule by ity of capsule 00:00: mouth 3 00 (three) Medical times Branch daily as needed for Cough. albuterol 2020-09 Yes [id number] 2{puff} Inhale 2 Univers 90 2-07 Puffs ity of mcg/actuati 00:00: every 4 [place] on inhaler 00 (four) Medical hours as Branch needed for Wheezing or Shortness of Breath. albuterol 2020-09 Yes [id number] 2.5mg Inhale 3 Univers 2.5 mg /3 2-07 mL every 4 ity of mL (0.083 00:00: (four) [place] %) 00 hours. May Medical nebulizer also Branch solution nebulize one extra every 6 hours. predniSONE 2020-09 Yes [id number] 50mg Take 1 Univers 50 mg 2-07 tablet by ity of tablet 00:00: mouth [place] 00 daily. Medical Branch benzonatate 2020-09 Yes [id number] 200mg Take 1 Univers 200 mg 2-07 capsule by ity of capsule 00:00: mouth 3 [place] 00 (three) Medical times Branch daily as needed for Cough. albuterol 2020-09 Yes [id number] 2{puff} Inhale 2 Univers 90 2-07 Puffs ity of mcg/actuati 00:00: every 4 [place] on inhaler 00 (four) Medical hours as Branch needed for Wheezing or Shortness of Breath. albuterol 2020-09 Yes [id number] 2.5mg Inhale 3 Univers 2.5 mg /3 2-07 mL every 4 ity of mL (0.083 00:00: (four) [place] %) 00 hours. May Medical nebulizer also Branch solution nebulize one extra every 6 hours. predniSONE 2020-09 Yes [id number] 50mg Take 1 Univers 50 mg 2-07 tablet by ity of tablet 00:00: mouth [place] 00 daily. Medical Branch benzonatate 2020-09 Yes [id number] 200mg Take 1 Univers 200 mg 2-07 capsule by ity of capsule 00:00: mouth 3 [place] 00 (three) Medical times Branch daily as needed for Cough. albuterol 2020-09 Yes [id number] 2{puff} Inhale 2 Univers 90 2-07 Puffs ity of mcg/actuati 00:00: every 4 [place] as on inhaler 00 (four) Medical hours as Branch needed for Wheezing or Shortness of Breath. predniSONE 2020-09 Yes [id number] 50mg Take 1 Univers 50 mg 2-07 tablet by ity of tablet 00:00: mouth [place] 00 daily. Medical Branch benzonatate 2020-09 Yes [id number] 200mg Take 1 Univers 200 mg 2-07 capsule by ity of capsule 00:00: mouth 3 [place] 00 (three) Medical times Branch daily as needed for Cough. albuterol 2020-09 Yes [id number] 2{puff} Inhale 2 Univers 90 2-07 Puffs ity of mcg/actuati 00:00: every 4 [place] as on inhaler 00 (four) Medical hours as Branch needed for Wheezing or Shortness of Breath. predniSONE 2020-09 Yes [id number] 50mg Take 1 Univers 50 mg 2-07 tablet by ity of tablet 00:00: mouth [place] 00 daily. Medical Branch benzonatate 2020-09 Yes [id number] 200mg Take 1 Univers 200 mg 2-07 capsule by ity of capsule 00:00: mouth 3 [place] 00 (three) Medical times Branch daily as needed for Cough. albuterol 2020-09 Yes [id number] 2{puff} Inhale 2 Univers 90 2-07 Puffs ity of mcg/actuati 00:00: every 4 [place] on inhaler 00 (four) Medical hours as Branch needed for Wheezing or Shortness of Breath. predniSONE 2020-09 Yes [id number] 50mg Take 1 Univers 50 mg 2-07 tablet by ity of tablet 00:00: mouth [place] 00 daily. Medical Branch benzonatate 2020-09 Yes [id number] 200mg Take 1 Univers 200 mg 2-07 capsule by ity of capsule 00:00: mouth 3 [place] 00 (three) Medical times Branch daily as needed for Cough. albuterol 2020-09 Yes [id number] 2{puff} Inhale 2 Univers 90 2-07 Puffs ity of mcg/actuati 00:00: every 4 [place] as on inhaler 00 (four) Medical hours as Branch needed for Wheezing or Shortness of Breath. predniSONE 2020-09 Yes [id number] 50mg Take 1 Univers 50 mg 2-07 tablet by ity of tablet 00:00: mouth [place] 00 daily. Medical Branch benzonatate 2020-09 Yes [id number] 200mg Take 1 Univers 200 mg 2-07 capsule by ity of capsule 00:00: mouth 3 00 (three) Medical times Branch daily as needed for Cough. albuterol 2020-09 Yes [id number] 2{puff} Inhale 2 Univers 90 2-07 Puffs ity of mcg/actuati 00:00: every 4 [place] as on inhaler 00 (four) Medical hours as Branch needed for Wheezing or Shortness of Breath. predniSONE 2020-09 Yes [id number] 50mg Take 1 Univers 50 mg 2-07 tablet by ity of tablet 00:00: mouth [place] 00 daily. Medical Branch benzonatate 2020-09 Yes [id number] 200mg Take 1 Univers 200 mg 2-07 capsule by ity of capsule 00:00: mouth 3 [place] 00 (three) Medical times Branch daily as needed for Cough. albuterol 2020-09 Yes [id number] 2{puff} Inhale 2 Univers 90 2-07 Puffs ity of mcg/actuati 00:00: every 4 [place] as on inhaler 00 (four) Medical hours as Branch needed for Wheezing or Shortness of Breath. predniSONE 2020-09 Yes [id number] 50mg Take 1 Univers 50 mg 2-07 tablet by ity of tablet 00:00: mouth [place] 00 daily. Medical Branch benzonatate 2020-09 Yes [id number] 200mg Take 1 Univers 200 mg 2-07 capsule by ity of capsule 00:00: mouth 3 [place] 00 (three) Medical times Branch daily as needed for Cough. albuterol 2020-09- No [id number] 2.5mg Inhale 3 Univers 2.5 mg /3 2-07 04-15 mL every 4 ity of mL (0.083 00:00: 00:00 (four) [place] %) 00 :00 hours. May Medical nebulizer also Branch solution nebulize one extra every 6 hours. famotidine 2020-09 Yes [id number] 40mg Take 1 Univers 40 mg 1-16 tablet by ity of tablet 00:00: mouth [place] 00 daily. Medical Branch famotidine 2020-09 Yes [id number] 40mg Take 1 Univers 40 mg 1-16 tablet by ity of tablet 00:00: mouth [place] 00 daily. Medical Branch famotidine 2020-09 Yes [id number] 40mg Take 1 Univers 40 mg 1-16 tablet by ity of tablet 00:00: mouth [place] 00 daily. Medical Branch famotidine 2020-09 Yes [id number] 40mg Take 1 Univers 40 mg 1-16 tablet by ity of tablet 00:00: mouth [place] 00 daily. Medical Branch famotidine 2020-09 Yes [id number] 40mg Take 1 Univers 40 mg 1-16 tablet by ity of tablet 00:00: mouth [place] 00 daily. Medical Branch famotidine 2020-09 Yes [id number] 40mg Take 1 Univers 40 mg 1-16 tablet by ity of tablet 00:00: mouth [place] 00 daily. [facility] Branch famotidine 2020-09 Yes [id number] 40mg Take 1 Univers 40 mg 1-16 tablet by ity of tablet 00:00: mouth [place] 00 daily. Medical Branch famotidine 2020-09 Yes [id number] 40mg Take 1 Univers 40 mg 1-16 tablet by ity of tablet 00:00: mouth [place] 00 daily. Medical Branch famotidine 2020-09 Yes [id number] 40mg Take 1 Univers 40 mg 1-16 tablet by ity of tablet 00:00: mouth [place] 00 daily. [facility] Branch famotidine 2020-09 Yes [id number] 40mg Take 1 Univers 40 mg 1-16 tablet by ity of tablet 00:00: mouth [place] 00 daily. Medical Branch famotidine 2020-09 Yes [id number] 40mg Take 1 Univers 40 mg 1-16 tablet by ity of tablet 00:00: mouth [place] 00 daily. Medical Branch famotidine 2020-09 Yes [id number] 40mg Take 1 Univers 40 mg 1-16 tablet by ity of tablet 00:00: mouth [place] 00 daily. Medical Branch famotidine 2020-09 Yes [id number] 40mg Take 1 Univers 40 mg 1-16 tablet by ity of tablet 00:00: mouth [place] 00 daily. Medical Branch famotidine 2020-09 Yes [id number] 40mg Take 1 Univers 40 mg 1-16 [...] on inhaler times daily. budesonide- 2020-09 Yes [id number] 2{puff} Inhale 2 Univers formoteroL 0-14 Puffs 2 ity of (SYMBICORT) 00:00: (two) [place] 160-4.5 00 times Medical mcg/actuati daily. Branch on inhaler albuterol 2020-09 Yes 2{puff} Inhale 2 U nivers (PROAIR 0-14 Puffs ity of HFA) 90 00:00: every 6 [place] mcg/actuati 00 (six) Medical on inhaler hours as Branc h needed for Wheezing or Shortness of Breath. budesonide- 2020-09 Yes [id number] 2{puff} Inhale 2 Univers formoteroL 0-14 Puffs 2 ity of (SYMBICORT) 00:00: (two) [place] 160-4.5 00 times Medical mcg/actuati daily. Branch on inhaler albuterol 2020-09 Yes 2{puff} Inhale 2 U nivers (PROAIR 0-14 Puffs ity of HFA) 90 00:00: every 6 [place] mcg/actuati 00 (six) Medical on inhaler hours as Branc h needed for Wheezing or Shortness of Breath. budesonide- 2020-09 Yes [id number] 2{puff} Inhale 2 Univers formoteroL 0-14 Puffs 2 ity of (SYMBICORT) 00:00: (two) [place] 160-4.5 00 times Medical mcg/actuati daily. Branch on inhaler albuterol 2020-09 Yes 2{puff} Inhale 2 U nivers (PROAIR 0-14 Puffs ity of HFA) 90 00:00: every 6 [place] mcg/actuati 00 (six) Medical on inhaler hours as Branc h needed for Wheezing or Shortness of Breath. budesonide- 2020-09 Yes [id number] 2{puff} Inhale 2 Univers formoteroL 0-14 Puffs 2 ity of (SYMBICORT) 00:00: (two) [place] 160-4.5 00 times Medical mcg/actuati daily. Branch on inhaler albuterol 2020-09 Yes 2{puff} Inhale 2 U nivers (PROAIR 0-14 Puffs ity of HFA) 90 00:00: every 6 [place] mcg/actuati 00 (six) Medical on inhaler hours as Branc h needed for Wheezing or Shortness of Breath. budesonide- 2020-09 Yes [id number] 2{puff} Inhale 2 Univers formoteroL 0-14 Puffs 2 ity of (SYMBICORT) 00:00: (two) [place] 160-4.5 00 times Medical mcg/actuati daily. Branch on inhaler albuterol 2020-09 Yes 2{puff} Inhale 2 U nivers (PROAIR 0-14 Puffs ity of HFA) 90 00:00: every 6 [place] mcg/actuati 00 (six) Medical on inhaler hours as Branc h needed for Wheezing or Shortness of Breath. budesonide- 2020-09 Yes [id number] 2{puff} Inhale 2 Univers formoteroL 0-14 Puffs 2 ity of (SYMBICORT) 00:00: (two) [place] 160-4.5 00 times Medical mcg/actuati daily. Branch on inhaler albuterol 2020-09 Yes 2{puff} Inhale 2 U nivers (PROAIR 0-14 Puffs ity of HFA) 90 00:00: every 6 [place] mcg/actuati 00 (six) Medical on inhaler hours as Branc h needed for Wheezing or Shortness of Breath. budesonide- 2020-09 Yes [id number] 2{puff} Inhale 2 Univers formoteroL 0-14 Puffs 2 ity of (SYMBICORT) 00:00: (two) [place] 160-4.5 00 times Medical mcg/actuati daily. Branch on inhaler albuterol 2020-09 Yes 2{puff} Inhale 2 U nivers (PROAIR 0-14 Puffs ity of HFA) 90 00:00: every 6 [place] mcg/actuati 00 (six) Medical on inhaler hours as Branc h needed for Wheezing or Shortness of Breath. budesonide- 2020-09 Yes [id number] 2{puff} Inhale 2 Univers formoteroL 0-14 Puffs 2 ity of (SYMBICORT) 00:00: (two) [place] 160-4.5 00 times Medical mcg/actuati daily. Branch on inhaler albuterol 2020-09 Yes 2{puff} Inhale 2 U nivers (PROAIR 0-14 Puffs ity of HFA) 90 00:00: every 6 [place] mcg/actuati 00 (six) Medical on inhaler hours as Branc h needed for Wheezing or Shortness of Breath. budesonide- 2020-09 Yes [id number] 2{puff} Inhale 2 Univers formoteroL 0-14 Puffs 2 ity of (SYMBICORT) 00:00: (two) [place] 160-4.5 00 times Medical mcg/actuati daily. Branch on inhaler albuterol 2020-09 Yes 2{puff} Inhale 2 U nivers (PROAIR 0-14 Puffs ity of HFA) 90 00:00: every 6 [place] mcg/actuati 00 (six) Medical on inhaler hours as Branc h needed for Wheezing or Shortness of Breath. budesonide- 2020-09 Yes [id number] 2{puff} Inhale 2 Univers formoteroL 0-14 Puffs 2 ity of (SYMBICORT) 00:00: (two) [place] 160-4.5 00 times Medical mcg/actuati daily. Branch on inhaler albuterol 2020-09 Yes 2{puff} Inhale 2 U nivers (PROAIR 0-14 Puffs ity of HFA) 90 00:00: every 6 [place] mcg/actuati 00 (six) Medical on inhaler hours as Branc h needed for Wheezing or Shortness of Breath. budesonide- 2020-09 Yes [id number] 2{puff} Inhale 2 Univers formoteroL 0-14 Puffs 2 ity of (SYMBICORT) 00:00: (two) [place] 160-4.5 00 times Medical mcg/actuati daily. Branch on inhaler albuterol 2020-09 Yes 2{puff} Inhale 2 U nivers (PROAIR 0-14 Puffs ity of HFA) 90 00:00: every 6 [place] mcg/actuati 00 (six) Medical on inhaler hours as Branc h needed for Wheezing or Shortness of Breath. budesonide- 2020-09 Yes [id number] 2{puff} Inhale 2 Univers formoteroL 0-14 Puffs 2 ity of (SYMBICORT) 00:00: (two) [place] 160-4.5 00 times Medical mcg/actuati daily. Branch on inhaler albuterol 2020-09 Yes 2{puff} Inhale 2 U nivers (PROAIR 0-14 Puffs ity of HFA) 90 00:00: every 6 [place] mcg/actuati 00 (six) Medical on inhaler hours as Branc h needed for Wheezing or Shortness of Breath. budesonide- 2020-09 Yes [id number] 2{puff} Inhale 2 Univers formoteroL 0-14 Puffs 2 ity of (SYMBICORT) 00:00: (two) [place] 160-4.5 00 times Medical mcg/actuati daily. Branch on inhaler albuterol 2020-09 Yes 2{puff} Inhale 2 U nivers (PROAIR 0-14 Puffs ity of HFA) 90 00:00: every 6 [place] mcg/actuati 00 (six) Medical on inhaler hours as Branc h needed for Wheezing or Shortness of Breath. budesonide- 2020-09 Yes [id number] 2{puff} Inhale 2 Univers formoteroL 0-14 Puffs 2 ity of (SYMBICORT) 00:00: (two) [place] 160-4.5 00 times Medical mcg/actuati daily. Branch on inhaler albuterol 2020-09 Yes 2{puff} Inhale 2 U nivers (PROAIR 0-14 Puffs ity of HFA) 90 00:00: every 6 [place] mcg/actuati 00 (six) Medical on inhaler hours as Branc h needed for Wheezing or Shortness of Breath. budesonide- 2020-09 Yes [id number] 2{puff} Inhale 2 Univers formoteroL 0-14 Puffs 2 ity of (SYMBICORT) 00:00: (two) [place] 160-4.5 00 times Medical mcg/actuati daily. Branch on inhaler albuterol 2020-09 Yes 2{puff} Inhale 2 U nivers (PROAIR 0-14 Puffs ity of HFA) 90 00:00: every 6 [place] mcg/actuati 00 (six) Medical on inhaler hours as Branc h needed for Wheezing or Shortness of Breath. budesonide- 2020-09 Yes [id number] 2{puff} Inhale 2 [facility] formoteroL 0-14 Puffs [...] MG 00:00: mouth Medical tablet 00 nightly. [place] amitriptyli Yes 3{tbl} QD Take [address] [facility] [address] [facility] (ELAVIL) 9-13 tablets by Jaqui kes - 50 MG 00:00: mouth Medical tablet 00 nightly. [place] amitriptyli Yes [id number] 150mg Take 3 [facility] ne 50 mg 9-13 tablets by ity o f tablet 00:00: mouth at [place] 00 bedtime. Medical Branch amitriptyli Yes [id number] 150mg Take 3 [facility] ne 50 mg 9-13 tablets by ity o f tablet 00:00: mouth at [place] 00 bedtime. Medical Branch amitriptyli Yes [id number] 150mg Take 3 [facility] ne 50 mg 9-13 tablets by ity o f tablet 00:00: mouth at [place] 00 bedtime. Medical Branch amitriptyli Yes [id number] 150mg Take 3 [facility] ne 50 mg 9-13 tablets by ity o f tablet 00:00: mouth at [place] [address] bedtime. Medical Branch amitriptyli Yes [id number] 150mg Take 3 [facility] ne 50 mg 9-13 tablets by ity o f tablet 00:00: mouth at [place] 00 bedtime. Medical Branch amitriptyli Yes [id number] 150mg Take 3 [facility] ne 50 mg 9-13 tablets by ity o f tablet 00:00: mouth at [place] 00 bedtime. Medical Branch amitriptyli Yes [id number] 150mg Take 3 [facility] ne 50 mg 9-13 tablets by ity o f tablet 00:00: mouth at [place] 00 bedtime. Medical Branch amitriptyli Yes [id number] 150mg Take 3 [facility] ne 50 mg 9-13 tablets by ity o f tablet 00:00: mouth at [place] 00 bedtime. Medical Branch amitriptyli Yes [id number] 150mg Take 3 [facility] ne 50 mg 9-13 tablets by ity o f tablet 00:00: mouth at [place] 00 bedtime. Medical Branch amitriptyli Yes [id number] 150mg Take 3 [facility] ne 50 mg 9-13 tablets by ity o f tablet 00:00: mouth at [place] 00 bedtime. Medical Branch amitriptyli Yes [id number] 150mg Take 3 [facility] ne 50 mg 9-13 tablets by ity o f tablet 00:00: mouth at [place] [address] bedtime. Medical Branch amitriptyli 0 Yes [id number] 150mg Take 3 [facility] ne 50 mg 9-13 tablets by ity o f tablet 00:00: mouth at [place] [address] bedtime. Medical Branch amitriptyli 0 Yes [id number] 150mg Take 3 [facility] ne 50 mg 9-13 tablets by ity o f tablet 00:00: mouth at [place] [address] bedtime. Medical Branch amitriptyli 0 Yes [id number] 150mg Take 3 [facility] ne 50 mg 9-13 tablets by ity o f tablet 00:00: mouth at [place] [address] bedtime. Medical Branch amitriptyli Yes [id number] 150mg Take 3 [facility] ne 50 mg 9-13 tablets by ity o f tablet 00:00: mouth at [place] [address] bedtime. Medical Branch amitriptyli Yes [id number] 150mg Take 3 [facility] ne 50 mg 9-13 tablets by ity o f tablet 00:00: mouth at [place] [address] bedtime. Medical Branch ARIPiprazol Yes 2mg QD Take [address] [facility] (ABILIFY) 8-26 by mouth [place] - 2 MG tablet 00:00: nightly. [facility] 00 [place] ARIPiprazol Yes 2mg QD Take [address] [facility] (ABILIFY) 8-26 by mouth [place] [facility] - 2 MG tablet 00:00: nightly. [address] ARIPiprazol Yes 2mg Take 2 mg U nivers e 2 mg 8-26 by mouth ity of tablet 00:00: at [place] [address] bedtime. Medical Branch ARIPiprazol Yes 2mg Take 2 mg U nivers e 2 mg 8-26 by mouth ity of tablet 00:00: at [place] [address] bedtime. Medical Branch ARIPiprazol 0 Yes 2mg Take 2 mg U nivers e 2 mg 8-26 by mouth ity of tablet 00:00: at [place] [address] bedtime. Medical Branch ARIPiprazol Yes 2mg Take 2 mg U nivers e 2 mg 8-26 by mouth ity of tablet 00:00: at [place] [address] bedtime. Medical Branch ARIPiprazol Yes 2mg Take 2 mg U nivers e 2 mg 8-26 by mouth ity of tablet 00:00: at [place] [address] bedtime. Medical Branch ARIPiprazol 0 Yes 2mg Take 2 mg U nivers e 2 mg 8-26 by mouth ity of tablet 00:00: at [place] [address] bedtime. Medical Branch ARIPiprazol Yes 2mg Take 2 mg U nivers e 2 mg 8-26 by mouth ity of tablet 00:00: at [place] [address] bedtime. Medical Branch ARIPiprazol Yes 2mg Take 2 mg U nivers e 2 mg 8-26 by mouth ity of tablet 00:00: at [place] [address] bedtime. Medical Branch ARIPiprazol Yes 2mg Take 2 mg U nivers e 2 mg 8-26 by mouth ity of tablet 00:00: at [place] [address] bedtime. Medical Branch ARIPiprazol Yes 2mg Take 2 mg U nivers e 2 mg 8-26 by mouth ity of tablet 00:00: at [place] [address] bedtime. Medical Branch ARIPiprazol Yes 2mg Take 2 mg U nivers e 2 mg 8-26 by mouth ity of tablet 00:00: at [place] [address] bedtime. Medical Branch ARIPiprazol Yes 2mg Take 2 mg U nivers e 2 mg 8-26 by mouth ity of tablet 00:00: at [place] [address] bedtime. Medical Branch ARIPiprazol Yes 2mg Take 2 mg U nivers e 2 mg 8-26 by mouth ity of tablet 00:00: at [place] [address] bedtime. Medical Branch ARIPiprazol Yes 2mg Take 2 mg U nivers e 2 mg 8-26 by mouth ity of tablet 00:00: at [place] [address] bedtime. Medical Branch budesonide 2020- No [id number] 1mg Use 2 mL [facility] 1 mg/2 mL 8-17 10-14 as ity of nebulizer 00:00: 00:00 directed [place] as solution 00 :00 every 8 Medical (eight) Branch hours as needed (shortness of breath). CLOPIDOGREL 0 Yes [id number] TAKE ONE Univers 75 mg 4-07 TABLET BY ity of tablet 00:00: MOUTH [place] 00 DAILY Medical Branch CLOPIDOGREL 2021-0 Yes [id number] TAKE ONE [facility] 75 mg 4-07 TABLET BY ity of tablet 00:00: MOUTH [place] 00 DAILY Medical Branch CLOPIDOGREL 2021-0 Yes [id number] TAKE ONE [facility] 75 mg 4-07 TABLET BY ity of tablet 00:00: MOUTH [place] 00 DAILY Medical Branch CLOPIDOGREL 2021-0 Yes [id number] TAKE ONE [facility] 75 mg 4-07 TABLET BY ity of tablet 00:00: MOUTH [place] 00 DAILY Medical Branch CLOPIDOGREL 2021-0 Yes [id number] TAKE ONE [facility] 75 mg 4-07 TABLET BY ity of tablet 00:00: MOUTH [place] 00 DAILY Medical Branch CLOPIDOGREL 2021-0 Yes [id number] TAKE ONE [facility] 75 mg 4-07 TABLET BY ity of tablet 00:00: MOUTH [place] 00 DAILY Medical Branch CLOPIDOGREL 2021-0 2021- No [id number] TAKE ONE [facility] 75 mg 4-07 12-07 TABLET BY ity of tablet 00:00: 00:00 MOUTH [place] 00 :00 DAILY Medical Branch benzonatate 2020-0 Yes [id number] 100mg Take 1 Univers (TESSALON 1-27 capsule by ity of PERLES) 100 00:00: mouth 3 [place] as mg capsule 00 (three) Medica l times Branch daily. benzonatate 2020-0 Yes [id number] 100mg Take 1 [facility] (TESSALON 1-27 capsule by ity of PERLES) 100 00:00: mouth 3 [place] mg capsule 00 (three) Medica l times Branch daily. benzonatate 2020-0 Yes [id number] 100mg Take 1 [facility] (TESSALON 1-27 capsule by ity of PERLES) 100 00:00: mouth 3 [place] mg capsule 00 (three) Medica l times Branch daily. benzonatate 2020-0 Yes [id number] 100mg Take 1 [facility] (TESSALON 1-27 capsule by ity of PERLES) 100 00:00: mouth 3 [place] mg capsule 00 (three) Medica l times Branch daily. benzonatate 2020-0 Yes [id number] 100mg Take 1 [facility] (TESSALON 1-27 capsule by ity of PERLES) 100 00:00: mouth 3 [place] mg capsule 00 (three) Medica l times Branch daily. benzonatate 2020-0 Yes [id number] 100mg Take 1 [facility] (TESSALON 1-27 capsule by ity of PERLES) 100 00:00: mouth 3 [place] mg capsule 00 (three) Medica l times Branch daily. benzonatate 2020-0 Yes [id number] 100mg Take 1 [facility] (TESSALON 1-27 capsule by ity of PERLES) 100 00:00: mouth 3 [place] mg capsule 00 (three) Medica l times Branch daily. benzonatate 2020-0 Yes [id number] 100mg Take 1 [facility] (TESSALON 1-27 capsule by ity of PERLES) 100 00:00: mouth 3 [place] mg capsule 00 (three) Medica l times Branch daily. benzonatate 2020-0 Yes [id number] 100mg Take 1 [facility]ESSALON [facility] 00:[facility]: mouth 3 [place] mg capsule 00 (three) Medica l times Branch daily. benzonatate 2020-0 Yes [id number] 100mg Take 1 [facility] (TESSALON 1-27 capsule by ity of PERLES) 100 00:00: mouth 3 [place] mg capsule 00 (three) Medica l times Branch daily. benzonatate 2020-0 Yes [id number] 100mg Take 1 [facility] (TESSALON 1-27 capsule by ity of PERLES) 100 00:00: mouth 3 [place] mg capsule 00 (three) Medica l times Branch daily. benzonatate 2020-0 Yes [id number] 100mg Take 1 [facility] (TESSALON 1-27 capsule by ity of PERLES) 100 00:00: mouth 3 [place] mg capsule 00 (three) Medica l times Branch daily. benzonatate 2020-0 Yes [id number] 100mg Take 1 [facility] (TESSALON 1-27 capsule by ity of PERLES) 100 00:00: mouth 3 [place] mg capsule 00 (three) Medica l times Branch daily. benzonatate 2020-0 Yes [id number] 100mg Take 1 [facility] (TESSALON 1-27 capsule by ity of PERLES) 100 00:00: mouth 3 [place] mg capsule 00 (three) Medica l times Branch daily. benzonatate 2020-0 Yes [id number] 100mg Take 1 [facility] (TESSALON 1-27 capsule by ity of PERLES) 100 00:00: mouth 3 [place] mg capsule 00 (three) Medica l times Branch daily. benzonatate Yes [id number] 100mg Take 1 [facility] (TESSALON 1-27 capsule by Ade) 100 00:00: mouth 3 [place] as mg capsule 00 (three) Medica l times Branch daily. atorvastati Yes 20mg QD Take [address] [facility] (LIPITOR) 1-07 by mouth [place] [facility] - 20 MG 00:00: daily. Medical tablet 00 [place] atorvastati Yes 20mg QD Take [address] [facility] (LIPITOR) 1-07 by mouth [place] [facility] - 20 MG 00:00: daily. Medical tablet [address] [place] [address] atorvastati Yes [id number] 20mg Take 1 [facility] n 20 mg 1-07 tablet by ity of tablet 00:00: mouth at [place] [address] bedtime. [facility] Branch levothyroxi 2020-0 Yes [id number] 25ug Take 1 Univers ne 25 mcg 1-07 tablet by ity o f tablet 00:00: mouth [place] 00 every Medical morning. [place] atorvastati 0 Yes [id number] 20mg Take 1 [facility] n 20 mg 1-07 tablet by ity of tablet 00:00: mouth at [place] 00 bedtime. [facility] Branch levothyroxi 2020-0 Yes [id number] 25ug Take 1 [facility] ne 25 mcg 1-07 tablet by ity o f tablet 00:00: mouth [place] 00 every Medical morning. [place] atorvastati 2020-0 Yes [id number] 20mg Take 1 [facility] n 20 mg 1-07 tablet by ity of tablet 00:00: mouth at [place] 00 bedtime. [facility] Branch levothyroxi 2020-0 Yes [id number] 25ug Take 1 [facility] ne 25 mcg 1-07 tablet by ity o f tablet 00:00: mouth [place] 00 every Medical morning. [place] atorvastati 2020-0 Yes [id number] 20mg Take 1 [facility] n 20 mg 1-07 tablet by ity of tablet 00:00: mouth at [place] [address] bedtime. [facility] Branch levothyroxi 2020-0 Yes [id number] 25ug Take 1 [facility] ne 25 mcg 1-07 tablet by ity o f tablet 00:00: mouth [place] 00 every Medical morning. Branch atorvastati 0 Yes [id number] 20mg Take 1 [facility] n 20 mg 1-07 tablet by ity of tablet 00:00: mouth at [place] [address] bedtime. Medical Branch levothyroxi 2020-0 Yes [id number] 25ug Take 1 [facility] ne 25 mcg 1-07 tablet by ity o f tablet 00:00: mouth [place] 00 every Medical morning. Branch atorvastati 0 Yes [id number] 20mg Take 1 [facility] n 20 mg 1-07 tablet by ity of tablet 00:00: mouth at [place] [address] bedtime. Medical Branch levothyroxi 2020-0 Yes [id number] 25ug Take 1 [facility] ne 25 mcg 1-07 tablet by ity o f tablet 00:00: mouth [place] 00 every Medical morning. Branch atorvastati 0 Yes [id number] 20mg Take 1 [facility] n 20 mg 1-07 tablet by ity of tablet 00:00: mouth at [place] [address] bedtime. Medical Branch atorvastati 0 Yes [id number] 20mg Take 1 [facility] n 20 mg 1-07 tablet by ity of tablet 00:00: mouth at [place] [address] bedtime. Medical Branch atorvastati 0 Yes [id number] 20mg Take 1 [facility] n 20 mg 1-07 tablet by ity of tablet 00:00: mouth at [place] [address] bedtime. Medical Branch atorvastati 0 Yes [id number] 20mg Take 1 [facility] n 20 mg 1-07 tablet by ity of tablet 00:00: mouth at [place] [address] bedtime. Medical Branch atorvastati 2020-0 Yes [id number] 20mg Take 1 [facility] n 20 mg 1-07 tablet by ity of tablet 00:00: mouth at [place] [address] bedtime. Medical Branch atorvastati 2020-0 Yes [id number] 20mg Take 1 [facility] n 20 mg 1-07 tablet by ity of tablet 00:00: mouth at [place] [address] bedtime. Medical Branch atorvastati 0 Yes [id number] 20mg Take 1 [facility] n 20 mg 1-07 tablet by ity of tablet 00:00: mouth at [place] [address] bedtime. Medical Branch atorvastati 2020-0 Yes [id number] 20mg Take 1 [facility] n 20 mg 1-07 tablet by ity of tablet 00:00: mouth at [place] 00 bedtime. Medical Branch atorvastati 2020-0 Yes [id number] 20mg Take 1 [facility] n 20 mg 1-07 tablet by ity of tablet 00:00: mouth at [place] 00 bedtime. Medical Branch atorvastati 2020-0 Yes [id number] 20mg Take 1 [facility] n 20 mg 1-07 tablet by ity of tablet 00:00: mouth at [place] 00 bedtime. Medical Branch levothyroxi 2020-0 202- No [id number] 25ug Take 1 [facility] ne 25 mcg 1-07 12-09 tablet by ity of tablet 00:00: 00:00 mouth [place] 00 :00 every Medical morning. Branch ipratropium 2020-1 Yes [id number] .5mg Inhale 2.5 Univers 0.02 % 2-18 mL every 8 ity of nebulizer 00:00: (eight) [place] solution 00 hours as Medical needed for Branch Wheezing or Shortness of Breath. ipratropium 2020-1 Yes [id number] .5mg Inhale 2.5 Univers 0.02 % 2-18 mL every 8 ity of nebulizer 00:00: (eight) [place] solution 00 hours as Medical needed for Branch Wheezing or Shortness of Breath. ipratropium 2020-1 Yes [id number] .5mg Inhale 2.5 Univers 0.02 % 2-18 mL every 8 ity of nebulizer 00:00: (eight) [place] solution 00 hours as Medical needed for Branch Wheezing or Shortness of Breath. ipratropium 2020-1 Yes [id number] .5mg Inhale 2.5 Univers 0.02 % 2-18 mL every 8 ity of nebulizer 00:00: (eight) [place] solution 00 hours as Medical needed for Branch Wheezing or Shortness of Breath. ipratropium 2020-1 Yes [id number] .5mg Inhale 2.5 Univers 0.02 % 2-18 mL every 8 ity of nebulizer 00:00: (eight) [place] solution 00 hours as Medical needed for Branch Wheezing or Shortness of Breath. ipratropium 2020-1 Yes [id number] .5mg Inhale 2.5 Univers 0.02 % 2-18 mL every 8 ity of nebulizer 00:00: (eight) [place] solution 00 hours as Medical needed for Branch Wheezing or Shortness of Breath. ipratropium 2020-1 Yes [id number] .5mg Inhale 2.5 Univers 0.02 % 2-18 mL every 8 ity of nebulizer 00:00: (eight) [place] solution 00 hours as Medical needed for Branch Wheezing or Shortness of Breath. ipratropium 2020-1 Yes [id number] .5mg Inhale 2.5 Univers 0.02 % 2-18 mL every 8 ity of nebulizer 00:00: (eight) [place] solution 00 hours as Medical needed for Branch Wheezing or Shortness of Breath. ipratropium 2020-1 Yes [id number] .5mg Inhale 2.5 Univers 0.02 % 2-18 mL every 8 ity of nebulizer 00:00: (eight) [place] solution 00 hours as Medical needed for Branch Wheezing or Shortness of Breath. ipratropium 2020-1 Yes [id number] .5mg Inhale 2.5 Univers 0.02 % 2-18 mL every 8 ity of nebulizer 00:00: (eight) [place] solution 00 hours as Medical needed for Branch Wheezing or Shortness of Breath. ipratropium 2020-1 Yes [id number] .5mg Inhale 2.5 Univers 0.02 % 2-18 mL every 8 ity of nebulizer 00:00: (eight) [place] solution 00 hours as Medical needed for Branch Wheezing or Shortness of Breath. ipratropium 2020-1 Yes [id number] .5mg Inhale 2.5 Univers 0.02 % 2-18 mL every 8 ity of nebulizer 00:00: (eight) [place] solution 00 hours as Medical needed for Branch Wheezing or Shortness of Breath. ipratropium 2020-1 Yes [id number] .5mg Inhale 2.5 Univers 0.02 % 2-18 mL every 8 ity of nebulizer 00:00: (eight) [place] solution 00 hours as Medical needed for Branch Wheezing or Shortness of Breath. ipratropium 2020-1 Yes [id number] .5mg Inhale 2.5 Univers 0.02 % 2-18 mL every 8 ity of nebulizer 00:00: (eight) [place] solution 00 hours as Medical needed for Branch Wheezing or Shortness of Breath. ipratropium 2020-1 Yes [id number] .5mg Inhale 2.5 Univers 0.02 % 2-18 mL every 8 ity of nebulizer 00:00: (eight) [place] solution 00 hours as Medical needed for Branch Wheezing or Shortness of Breath. ipratropium 2020- Yes [id number] .5mg Inhale 2.5 Univers 0.02 % 2-18 mL every 8 ity of nebulizer 00:00: (eight) [place] solution 00 hours as Medical needed for Branch Wheezing or Shortness of Breath. aspirin 81 2019- Yes [id number] 81mg Take 1 [facility] mg chewable 1-11 tablet by ity of tablet 00:00: mouth [place] 00 daily. Medical Branch aspirin 81 2019- Yes [id number] 81mg Take 1 [facility] mg chewable 1-11 tablet by ity of tablet 00:00: mouth [place] 00 daily. Medical Branch aspirin 81 2019- Yes [id number] 81mg Take 1 [facility] mg chewable 1-11 tablet by ity of tablet 00:00: mouth [place] 00 daily. Medical Branch aspirin 81 2019- Yes [id number] 81mg Take 1 [facility] mg chewable 1-11 tablet by ity of tablet 00:00: mouth [place] 00 daily. Medical Branch aspirin 81 2019- Yes [id number] 81mg Take 1 [facility] mg chewable 1-11 tablet by ity of tablet 00:00: mouth [place] 00 daily. Medical Branch aspirin 81 2020- Yes [id number] 81mg Take 1 [facility] mg chewable 1-11 tablet by ity of tablet 00:00: mouth [place] 00 daily. Medical Branch aspirin 81 2020- Yes [id number] 81mg Take 1 [facility] mg chewable 1-11 tablet by ity of tablet 00:00: mouth [place] 00 daily. Medical Branch aspirin 81 2020- Yes [id number] 81mg Take 1 [facility] mg chewable 1-11 tablet by ity of tablet 00:00: mouth [place] 00 daily. Medical Branch aspirin 81 2020- Yes [id number] 81mg Take 1 [facility] mg chewable 1-11 tablet by ity of tablet 00:00: mouth [place] 00 daily. Medical Branch aspirin 81 2020- Yes [id number] 81mg Take 1 [facility] mg chewable 1-11 tablet by ity of tablet 00:00: mouth [place] 00 daily. Medical Branch aspirin 81 2020- Yes [id number] 81mg Take 1 [facility] mg chewable 1-11 tablet by ity of tablet 00:00: mouth [place] 00 daily. Medical Branch aspirin 81 2019-09 Yes [id number] 81mg Take 1 [facility] mg chewable 1-11 tablet by ity of tablet 00:00: mouth [place] 00 daily. Medical Branch aspirin 81 2019-09 Yes [id number] 81mg Take 1 [facility] mg chewable 1-11 tablet by ity of tablet 00:00: mouth [place] 00 daily. Medical Branch aspirin 81 2019-09 Yes [id number] 81mg Take 1 [facility] mg chewable 1-11 tablet by ity of tablet 00:00: mouth [place] 00 daily. Medical Branch aspirin 81 2019-09 Yes [id number] 81mg Take 1 [facility] mg chewable 1-11 tablet by ity of tablet 00:00: mouth [place] 00 daily. Medical Branch aspirin 81 2019-09 Yes [id number] 81mg Take 1 [facility] mg chewable 1-11 tablet by ity of tablet 00:00: mouth [place] 00 daily. Medical Branch famotidine 2019-09 Yes [id number] 20mg Take 2.5 Univers 40 mg/5 mL 1-10 mL by ity of (8 mg/mL) 00:00: mouth [place] suspension 00 every 12 Medic al (twelve) Branch hours. famotidine 2019-09 Yes [id number] 20mg Take 2.5 Univers 40 mg/5 mL 1-10 mL by ity of (8 mg/mL) 00:00: mouth [place] suspension 00 every 12 Medic al (twelve) Branch hours. famotidine 2019-09- No [id number] 20mg Take 2.5 [facility] 40 mg/5 mL 1-10 11-16 mL by ity of (8 mg/mL) 00:00: 00:00 mouth [place] suspension 00 :00 every 12 Medic al (twelve) Branch hours. PROAIR HFA 2018-09- No [id number] INHALE TWO Univers 90 0-11 10-14 PUFFS BY ity of mcg/actuati 00:00: 00:00 MOUTH [place] on inhaler 00 :00 EVERY 6 Medica l HOURS Branch NEEDED FOR WHEEZING OR FOR SHORTNESS OF BREATH Immunizations Ordered Filled Immunization Date Status Comments Sour e Immunization Name Name SARS-COV-2 COVID-19 2020-11-30 [facility]:00 [facility] SARS-COV-2 COVID-19 2020-11-30 Completed Unive rsity of PFIZER VACCINE 00:00:00 [facility] Branch SARS-COV-2 COVID-19 2020-11-30 Completed Unive rsity of PFIZER VACCINE 00:00:00 [facility] Branch SARS-COV-2 COVID-19 2020-11-30 Completed Unive rsity of PFIZER VACCINE 00:00:00 [facility] Branch SARS-COV-2 COVID-19 2020-11-30 Completed Unive rsity of PFIZER VACCINE 00:00:00 [facility] Branch SARS-COV-2 COVID-19 2020-11-30 Completed Unive rsity of PFIZER VACCINE 00:00:00 [facility] Branch SARS-COV-2 COVID-19 2020-11-30 Completed Unive rsity of PFIZER VACCINE 00:00:00 [facility] Branch SARS-COV-2 COVID-19 2020-11-30 Completed Unive rsity of PFIZER VACCINE 00:00:00 [facility] Branch SARS-COV-2 COVID-19 2020-11-30 Completed Unive rsity of PFIZER VACCINE 00:00:00 [facility] Branch SARS-COV-2 COVID-19 2020-11-30 Completed Unive rsity of PFIZER VACCINE 00:00:00 [facility] Branch SARS-COV-2 COVID-19 2020-11-30 Completed Unive rsity of PFIZER VACCINE 00:00:00 [facility] Branch SARS-COV-2 COVID-19 2020-11-30 Completed Unive rsity of PFIZER VACCINE 00:00:00 [facility] Branch SARS-COV-2 COVID-19 2020-11-30 Completed Unive rsity of PFIZER VACCINE 00:00:00 [facility] Branch SARS-COV-2 COVID-19 2020-11-30 Completed Unive rsity of PFIZER VACCINE 00:00:00 [facility] Branch SARS-COV-2 COVID-19 2020-11-30 Completed Unive rsity of PFIZER VACCINE 00:00:00 [facility] Branch SARS-COV-2 COVID-19 2020-11-30 Completed Unive rsity of PFIZER VACCINE 00:00:00 [facility] SARS-COV-2 COVID-19 2020-11-09 Completed Unive rsity of PFIZER VACCINE 00:00:00 [facility] SARS-COV-2 COVID-19 2020-11-09 Completed Unive rsity of PFIZER VACCINE 00:00:00 [facility] SARS-COV-2 COVID-19 2020-11-09 Completed Unive rsity of PFIZER VACCINE 00:00:00 [facility] SARS-COV-2 COVID-19 2020-11-09 Completed Unive rsity of PFIZER VACCINE 00:00:00 [facility] SARS-COV-2 COVID-19 2020-11-09 Completed Unive rsity of PFIZER VACCINE 00:00:00 [facility] SARS-COV-2 COVID-19 2020-11-09 Completed Unive rsity of PFIZER VACCINE 00:00:00 [facility] SARS-COV-2 COVID-19 2020-11-09 Completed Unive rsity of PFIZER VACCINE 00:00:00 [facility] SARS-COV-2 COVID-19 2020-11-09 Completed Unive rsity of PFIZER VACCINE 00:00:00 [facility] SARS-COV-2 COVID-19 2020-11-09 Completed Unive rsity of PFIZER VACCINE 00:00:00 [facility] SARS-COV-2 COVID-19 2020-11-09 Completed Unive rsity of PFIZER VACCINE 00:00:00 [facility] SARS-COV-2 COVID-19 2020-11-09 Completed Unive rsity of PFIZER VACCINE 00:00:00 [facility] SARS-COV-2 COVID-19 2020-11-09 Completed Unive rsity of PFIZER VACCINE 00:00:00 [facility] SARS-COV-2 COVID-19 2020-11-09 Completed Unive rsity of PFIZER VACCINE 00:00:00 [facility] SARS-COV-2 COVID-19 2020-11-09 Completed Unive rsity of PFIZER VACCINE 00:00:00 [facility] SARS-COV-2 COVID-19 2020-11-09 Completed Unive rsity of PFIZER VACCINE 00:00:00 [facility] SARS-COV-2 COVID-19 2020-11-09 Completed Unive rsity of PFIZER VACCINE 00:00:00 [facility] Influenza Virus 2020-08-19 Completed Universit y of [...] Vaccine Quad .5 mL 00:00:00 [place] [facility] 6+ MO Branch Influenza Virus 2019-08-20 Completed Universit y of Vaccine [place] .5 mL 00:00:00 [place] [facility] 6+ MO Branch Influenza Virus 2019-08-20 Completed Universit y of Vaccine [place] .5 mL 00:00:00 [place] [facility] 6+ MO Branch Influenza Virus 2019-08-20 Completed Universit y of Vaccine [place] .5 mL 00:00:00 [place] [facility] 6+ MO Branch Influenza Virus 2019-08-20 Completed Universit y of Vaccine [place] .5 mL 00:00:00 [facility] 6+ MO Branch Influenza Virus 2019-08-20 Completed Universit y of Vaccine [place] .5 mL 00:00:00 [facility] 6+ MO Branch Influenza Virus 2019-08-20 Completed Universit y of Vaccine [place] .5 mL 00:00:00 [place] [facility] IM 6+ MO Branch Influenza Virus 2019-08-20 Completed Universit y of Vaccine [place] .5 mL 00:00:00 [facility] 6+ MO Branch Influenza Virus 2019-08-20 Completed Universit y of Vaccine Quad .5 mL 00:00:00 [facility] 6+ MO Branch Influenza Virus 2018-06-18 Completed Universit y of Vaccine Quad IM 3+ 00:00:00 [facility] Pneumococcal 2018-06-18 Completed University o f Polysaccharide, 00:00:00 [facility] [id number] ([id number]) [place] Influenza Virus 2018-06-18 Completed Universit y of Vaccine Quad IM 3+ 00:00:00 [facility] Pneumococcal 2018-06-18 Completed University o f Polysaccharide, 00:00:00 [place] Med ical PPSV23 (PNEUMOVAX) Branch Influenza Virus 2018-06-18 Completed Universit y of Vaccine Quad IM 3+ 00:00:00 [facility] Pneumococcal 2018-06-18 Completed University o f Polysaccharide, 00:00:00 [place] Med ical PPSV23 (PNEUMOVAX) Branch Influenza Virus 2018-06-18 Completed Universit y of Vaccine Quad IM 3+ 00:00:00 [facility] Pneumococcal 2018-06-18 Completed University o f Polysaccharide, 00:00:00 [place] Med ical PPSV23 (PNEUMOVAX) Branch Influenza Virus 2018-06-18 Completed Universit y of Vaccine Quad IM 3+ 00:00:00 [facility] Pneumococcal 2018-06-18 Completed University o f Polysaccharide, 00:00:00 [place] Med ical PPSV23 (PNEUMOVAX) Branch Influenza Virus 2018-06-18 Completed Universit y of Vaccine Quad IM 3+ 00:00:00 [facility] Pneumococcal 2018-06-18 Completed University o f Polysaccharide, 00:00:00 [place] Med ical PPSV23 (PNEUMOVAX) Branch Influenza Virus 2018-06-18 Completed Universit y of Vaccine Quad IM 3+ 00:00:00 [facility] Pneumococcal 2018-06-18 Completed University o f Polysaccharide, 00:00:00 [place] Med ical PPSV23 (PNEUMOVAX) Branch Influenza Virus 2018-06-18 Completed Universit y of Vaccine Quad IM 3+ 00:00:00 [facility] Pneumococcal 2018-06-18 Completed University o f Polysaccharide, 00:00:00 [place] Med ical PPSV23 (PNEUMOVAX) Branch Influenza Virus 2018-06-18 Completed Universit y of Vaccine Quad IM 3+ 00:00:00 [facility] Pneumococcal 2018-06-18 Completed University o f Polysaccharide, 00:00:00 [place] Med ical PPSV23 (PNEUMOVAX) Branch Influenza Virus 2018-06-18 Completed Universit y of Vaccine Quad IM 3+ 00:00:00 [facility] Pneumococcal 2018-06-18 Completed University o f Polysaccharide, 00:00:00 [place] Med ical PPSV23 (PNEUMOVAX) Branch Influenza Virus 2018-06-18 Completed Universit y of Vaccine Quad IM 3+ 00:00:00 [facility] Pneumococcal 2018-06-18 Completed University o f Polysaccharide, 00:00:00 [place] Med ical PPSV23 (PNEUMOVAX) Branch Influenza Virus 2018-06-18 Completed Universit y of Vaccine Quad IM 3+ 00:00:00 [facility] Pneumococcal 2018-06-18 Completed University o f Polysaccharide, 00:00:00 [place] Med ical PPSV23 (PNEUMOVAX) Branch Influenza Virus 2018-06-18 Completed Universit y of Vaccine Quad IM 3+ 00:00:00 [facility] Pneumococcal 2018-06-18 Completed University o f Polysaccharide, 00:00:00 [place] Med ical PPSV23 (PNEUMOVAX) Branch Influenza Virus 2018-06-18 Completed Universit y of Vaccine Quad IM 3+ 00:00:00 [facility] Pneumococcal 2018-06-18 Completed University o f Polysaccharide, 00:00:00 [place] Med ical PPSV23 (PNEUMOVAX) Branch Influenza Virus 2018-06-18 Completed Universit y of Vaccine Quad IM 3+ 00:00:00 [facility] Pneumococcal 2018-06-18 Completed University o f Polysaccharide, 00:00:00 [place] Med ical PPSV23 (PNEUMOVAX) Branch Influenza Virus 2018-06-18 Completed Universit y of Vaccine Quad IM 3+ 00:00:00 [facility] Pneumococcal 2018-06-18 Completed University o f Polysaccharide, [...] [facility] ical 18-64 YRS [place] Influenza Virus 2017-10-17 Completed Universit y of Vaccine Quad ID 00:00:00 [facility] ica 18-64 YRS Branch Influenza Virus 2017-10-17 Completed Universit y of Vaccine Quad ID 00:00:00 [facility] 18-64 YRS Branch Td 2017-02-25 Completed University of 00:00:00 [facility] Td 2017-02-25 Completed University of 00:00:00 [facility] Td 2017-02-25 Completed University of 00:00:00 [facility] Td 2017-02-25 Completed University of 00:00:00 [facility] Td 2017-02-25 Completed University of 00:00:00 [facility] Td 2017-02-25 Completed University of 00:00:00 [facility] Td 2017-02-25 Completed University of 00:00:00 [facility] Td 2017-02-25 Completed University of 00:00:00 [facility] Td 2017-02-25 Completed University of 00:00:00 [facility] Td 2017-02-25 Completed University of 00:00:00 [facility] Td 2017-02-25 Completed University of 00:00:00 [facility] Td 2017-02-25 Completed University of 00:00:00 [facility] Td 2017-02-25 Completed University of 00:00:00 [facility] Td 2017-02-25 Completed University of 00:00:00 [facility] Branch Td 2017-02-25 Completed University of 00:00:00 [facility] Branch Td 2017-02-25 Completed University of 00:00:00 [facility] Vital Signs Vital Name Observation Time Observation Value Comments Source HEIGHT 2021-09-08 09:00:00 155 cm WEIGHT 2021-09-08 04:00:00 66.316 kg HEIGHT 2021-09-08 09:00:00 155 cm WEIGHT 2021-09-08 04:00:00 66.316 kg Systolic blood 2021-08-24 03:50:00 122 mm[Hg] Univer sity of pressure [facility] Diastolic blood 2021-08-24 03:50:00 76 mm[Hg] Unive rsity of pressure [facility] Heart rate 2021-08-24 03:50:00 104 /min Universi ty of [facility] Respiratory rate 2021-08-24 03:50:00 28 /min [facility] Oxygen saturation in 2021-08-24 03:50:00 91 [facility] by [facility] Pulse oximetry Branch Body temperature 2021-08-24 00:17:00 37.11 Suzy Univ ersity of [facility] Body weight 2021-08-24 00:17:00 63.504 kg Universi ty of [facility] BMI 2021-08-24 00:17:00 26.45 kg/m2 Universi ty of [facility] Systolic blood 2021-08-23 23:09:00 119 mm[Hg] Univer sity of pressure [facility] Diastolic blood 2021-08-23 23:09:00 72 mm[Hg] Unive rsity of pressure [facility] Heart rate 2021-08-23 23:09:00 98 /min Universi ty of [facility] Body temperature 2021-08-23 23:09:00 36.89 Suzy Univ ersity of [facility] Respiratory rate 2021-08-23 23:09:00 22 /min Univ ersity of [facility] Body height 2021-08-23 23:09:00 154.9 cm Universi ty of [facility] Body weight 2021-08-23 23:09:00 63.504 kg Universi ty of [facility] Branch BMI 2021-08-23 23:09:00 26.45 kg/m2 Universi ty [facility] Oxygen saturation in 2021-08-23 23:09:00 96 /min University of Arterial blood by [facility] Pulse oximetry Branch Systolic blood 2021-06-30 16:42:00 121 mm[Hg] Univer sity of pressure [facility] Diastolic blood 2021-06-30 16:42:00 84 mm[Hg] Unive rsity of [facility] Heart rate 2021-06-30 16:42:00 92 /min Universi ty [facility] Respiratory rate 2021-06-30 16:42:00 22 /min Univ ersity [facility] Body height 2021-06-30 16:42:[address] [facility] Body weight 2021-06-30 16:42:00 65.772 kg Universi [facility] BMI 2021-06-30 16:42:00 28.32 kg/m2 Universi [facility] Oxygen saturation in 2021-06-30 16:42:00 94 /min University of Arterial blood by [facility] Pulse oximetry Branch Systolic blood 2021-09-15 11:22:00 83 mm[Hg] [facility] Diastolic blood 2021-09-15 11:22:00 59 mm[Hg] [facility] S t [facility] Heart rate 2021-09-15 11:22:00 112 /min [facility] Body temperature 2021-09-15 11:22:00 35.56 Suzy [facility] Respiratory rate 2021-09-15 11:22:00 20 /min [facility] Oxygen saturation in 2021-09-15 11:22:00 94 /min [facility] Arterial blood by Medical nter Pulse oximetry Body height 2021-09-08 09:00:00 155 cm [facility] Body weight 2021-09-08 04:00:00 66.316 kg [facility] BMI 2021-09-08 04:00:00 27.60 kg/m2 [facility] Procedures Procedure Date / Time Performing Clinician Source Performed HOME HEALTH - OTHER 2021-09-19 06:01:00 Doctor Unassigned, [facility] [place] [facility] SARS-COV2/RT-PCR ([facility] & 2021-09-15 04:41:[address] [facility] SARS-COV2/RT-PCR ([facility] & 2021-09-14 16:34:00 Aleja Ríos I [facility] CBC W/PLT COUNT & AUTO 2021-09-14 05:32:00 [facility] - DIFFERENTIAL [facility] CBC W/PLT COUNT & AUTO 2021-09-14 05:32:00 [facility] DIFFERENTIAL [facility] VANCOMYCIN LEVEL, TROUGH 2021-09-13 13:54:00 [facility] W[facility]T [facility] & AUTO 2021-09-13 13:54:00 [facility] S [facility] DIFFERENTIAL [facility] CBC W/PLT COUNT & AUTO 2021-09-13 13:54:00 [facility] S t [facility] DIFFERENTIAL [facility] ECG 12-LEAD 2021-09-12 17:48:43 Unknown, Hl7 Doctor [facility] ECG 12-LEAD 2021-09-12 17:48:43 Unknown, Hl7 Doctor [facility] VANCOMYCIN LEVEL, TROUGH 2021-09-12 13:07:00 [facility] W/PLT COUNT & AUTO 2021-09-12 13:07:00 [facility] S [facility] DIFFERENTIAL [facility] BASIC METABOLIC PANEL (7) 2021-09-12 13:07:00 Krish I [facility] CBC W/PLT COUNT & AUTO 2021-09-12 13:07:00 [facility] S t [facility] - DIFFERENTIAL [facility] LACTIC ACID, VENOUS 2021-09-12 13:06:00 Tirukkovalluri, [facility] BASIC METABOLIC PANEL (7) 2021-09-11 13:29:00 MACHELLE Rutherford I [facility] MAGNESIUM 2021-09-11 13:29:00 [facility] VANCOMYCIN LEVEL, TROUGH 2021-09-10 11:38:00 Veronica [facility] CALCIUM 2021-09-10 05:55:00 [facility] CBC W/PLT COUNT & AUTO 2021-09-10 03:45:00 [place] [facility] BASIC METABOLIC PANEL (7) 2021-09-10 03:45:00 [facility] CAL[facility], IONIZED 2021-09-10 03:45:00 [place] [facility] PHOSPHORUS 2021-09-10 03:45:00 [facility] W/[facility]T [facility] & AUTO 2021-09-10 03:45:00 [place] [facility] MAGNESIUM 2021-09-10 03:45:00 [facility] ALB[facility]IN 2021-09-10 03:45:00 Gabino [facility] VANCOMYCIN LEVEL, TROUGH 2021-09-09 19:17:00 [facility] W[facility] & AUTO 2021-09-09 03:33:00 [place] [facility] BASIC METABOLIC PANEL (7) 2021-09-09 03:33:00 [facility] CALCI[facility], ION[facility]ED 2021-09-09 03:33:00 [facility] PHOS[facility]US 2021-09-09 03:33:00 [facility] CBC W/PLT COUNT & AUTO 2021-09-09 03:33:00 [place] [facility] MAGNESIUM 2021-09-09 03:33:00 [place] [facility] TRANSESOPHAGEAL ECHO 2021-09-08 11:20:43 [facility] COLOR-FLOW MAPPING 2021-09-08 06:45:11 [facility] CONT WAVE PULSED DOPPLER 2021-09-08 06:45:11 [facility] BLOOD CULTURE 2021-09-08 00:29:00 [facility] COMPREHENSIVE METABOLIC 2021-09-08 00:28:[address] [facility] MAGNESIUM 2021-09-08 00:28:00 [facility] C-REACTIVE PROTEIN 2021-09-08 00:28:00 [facility] LACTIC ACID, VENOUS 2021-09-08 00:28:00 [facility] BLOOD GAS, VENOUS 2021-09-08 00:28:00 [facility] CBC W/PLT COUNT & AUTO 2021-09-08 00:27:00 [facility] BLOOD CULTURE 2021-09-08 00:27:00 [facility] CBC W/PLT COUNT & AUTO 2021-09-08 00:27:00 [facility] URINALYSIS 2021-08-24 01:38:00 Uyen Fields [facility] XR CHEST 1 VW 2021-08-24 00:38:02 Uyen Fields [facility] TROPONIN I 2021-08-24 00:36:00 Uyen Fields [facility] COMP. METABOLIC PANEL 2021-08-24 00:36:00 Uyen Fields [facility] ([id number]) Medical Branch CBC WITH DIFF 2021-08-24 00:36:00 Uyen Fields [facility] PROTHROMBIN TIME / INR 2021-08-24 00:36:00 Uyen Fields [facility] N-TERMINAL PRO-BNP 2021-08-24 00:36:[address] [facility] COVID-19 (ID NOW RAPID 2021-08-24 00:36:00 Uyen Fields [facility] TESTING) Medical Branch NOTICE OF PRIVACY 2021-08-24 00:09:03 Doctor Unassigned, [facility] [place] [facility] CONSENT/REFUSAL FOR 2021-08-24 00:07:01 Doctor Unasswayne [facility] DIAGNOSIS AND TREATMENT [place] [facility] Plan of Care Planned Activity Planned [...] [facility]ukes - Test 00:00:00 (12+) [code = [facility] DEPRESSION SCREENING (12+)] Future Scheduled [...] s - Test 00:00:00 (procedure) [code = [facility] 81162277] Future Scheduled [address] [facility] Test 00:[facility]:00 (procedure) [code = [facility] 40724015] Future Scheduled 1999-03-[address] [...] Medica l Center cervix (procedure) [code = 483715271] Future Scheduled [address] [facility] - Test 00:00:00 malignant neoplasm of Medica l Center cervix (procedure) [code = 850780555] Future Scheduled 1975 HEPATITIS C SCRE[facility]ING [facility] Test 00:[facility]00 [code = HEPATITIS C Medical Center SCREENING] Future Scheduled 1975 HEPATITIS C [facility]ING [facility] Test 00:00:00 [code = HEPATITIS C Medical Center SCREENING] Future Scheduled [address] [facility] - Test 00:00:00 malignant neoplasm of Medica l Center breast (procedure) [code = 855559565] Future Scheduled [address] [facility] - Test 00:00:00 malignant neoplasm of Medica [facility] Center colon (procedure) [code = 443859673] Future Scheduled [address] - Test 00:00:00 malignant neoplasm of [facility] Center breast (procedure) [code = 612212130] Future Scheduled [address] [facility] - Test 00:00:00 malignant neoplasm of Medica l Center colon (procedure) [code = 665016916] Encounters Start End Encounter Admission Attending Care Care Encounter Source Date/Time Date/Time Type Type Clinicians Facility Department ID 2021-07-18 Emergency [facility] [id number] [facility]16 Emergency [facility] [id number] Univers 02:15:[address] [facility] [place] [place] 2022-05-01 2022-05-01 Outpatient R JESS [facility] [id number] Univers 10:20:00 10:20:00 [facility] [id number] [facility] 2022-05-01 2022-05-01 Outpatient R JESS [facility] [id number] Univers 10:20:00 10:20:[address] [facility] [place] 2022-02-02 2022-02-02 Outpatient R PUJA FOLEY [facility] [id number] Univers 09:30:00 09:30:00 PUJA FOLEY [id number] i ty [facility] 2022-02-02 2022-02-02 Outpatient R PUJA FOLEY [facility] [id number] Univers 09:30:00 09:30:00 PUJA FOLEY i ty of [facility] 2022-02-01 2022-02-01 Outpatient R ADUM, [facility] [id number] Univers 13:30:00 13:30:[id number] [facility] 2022-01-13 2022-01-13 Telephone [facility] [id number] [facility] 00:00:00 00:00:00 Maureen [place] [id number] [id number] [id number] [address] 2022-01-12 2022-01-12 Telephone [facility] 1.2.840.114 [id number] Univers 00:00:00 00:00:00 Maureen A [place] [id number] ity [id number] [id number] [address] 2022-01-10 2022-01-10 [facility] 1.2.840.114 [id number] Univers 00:00:00 00:00:00 Maureen [place] [id number] [id number] [id number] [address] 2022-01-09 2022-01-09 Telephone [facility] 1.2.840.114 [id number] Univers 00:00:00 00:00:00 Maureen [place] [id number] [id number] [phone] [address] 2022-01-03 2022-01-03 Outpatient R ADUM, [facility] [id number] Univers 10:00:00 10:00:00 JEMMA [id number] [facility] 2022-01-03 2022-01-03 Outpatient R RAISSA [facility] [id number] Univers 10:00:00 10:00:[address] [facility] [place] 2022-01-02 2022-01-02 Telephone [facility] 1.2.840.114 [id number] Univers 00:00:00 00:00:00 Maureen [place] [id number] it[id number] [id number] Ga dic[address] 2021-12-30 2021-12-30 [facility] 1.2.840.114 [id number] Univers 00:00:00 00:00:00 Maureen LIANGT[place] [id number] ity [id number] [id number] Ga dical [facility] 231 [facility] 2021-12-16 2021-12-16 Outpatient R PUJA FOLEY [facility] [id number] Univers 11:30:00 11:30:00 PU[address] [id number] i ty [facility] 2021-12-16 2021-12-16 Outpatient R PUJA FOLEY [facility] [id number] Univers 11:30:00 11:30:00 PUJA FOLEY i ty of [facility] 2021-12-01 2021-12-01 Outpatient R JESS [facility] [id number] Univers 15:00:00 15:00:[address] [facility] 2021-12-01 2021-12-01 Outpatient R JESS [facility] [id number] Univers 11:20:00 14:15:[address] [facility] 2021-12-01 2021-12-01 Telemedici [facility] 1.2.840.114 [id number] Univers 11:20:00 14:15:43 ne Visit Maureen [place] [id number] it[id number] [phone] Ga dical NAL [address] [place] [address] 2021-12-01 2021-12-01 [facility] [id number] Univers 11:20:00 11:20:00 MAUREEN [id number] ity of [facility] 2021-11-15 2021-11-15 Telephone [facility] 1.2.840.114 [id number] Univers 00:00:00 00:00:00 Maureen [place] [id number] ity [facility] [id number] [phone] Ga dical NAL [address] [place] [address] 2021-09-19 2021-09-19 Outpatient R [facility] [id number] Univers 00:00:00 00:00:00 ity of [facility] 2021-09-19 2021-09-19 Orders Doctor [place] 1.2.840.114 [id number] Univers 00:00:00 00:00:00 Only Unassigned, LALITA [id number] ity of [place] [facility] [id number] Darci as [id number] [address] 2021-09-07 2021-09-15 Hospital UR Nida, Sarai Cliff [facility] [id number] 21:52:00 13:08:00 Encounter [facility] Aleja Ríos 2021-09-07 2021-09-15 Inpatient UR NAKUL RÍOS Cardiology [id number] [facility] 21:52:00 13:08:00 [facility] 2021-09-12 2021-09-12 Orders [facility] [id number] 00:00:00 00:00:00 Only [facility] 2021-09-08 2021-09-08 Outpatient [facility] [id number] [facility] 00:00:00 23:59:00 Frieda 2021-08-23 2021-08-24 Emergency [facility] 1.2.840.114 [id number] Univers 18:18:00 02:43:00 Uyen JOSEY [id number] i [id number] [id number] [facility] 084 Branch 2021-08-24 2021-08-24 Letter SERGIO Antonio 1.2.840.114 [id number] Univers 00:00:00 00:00:00 (Out) Savanah Jarvis LALITA [id number] it y of [facility] [id number] Darci as [id number] [facility] 019 Branch 2021-08-23 2021-08-23 Urgent [facility] 1.2.840.114 [id number] Univers 17:08:18 17:53:20 Care [facility] [id number] it y of [place] [id number] Darci as CONNIE?BLEA [phone] Ga dical EY [address] [facility] 2021-08-23 2021-08-23 [facility] [id number] Univers 17:00:00 17:53:[address] [facility] 2021-08-23 2021-08-23 [facility] ERT [id number] Univers 17:00:00 17:53:20 [facility] 2021-08-23 2021-08-23 Outpatient R [facility] [id number] Univers 17:00:00 17:00:[id number] [facility] 2021-08-23 2021-08-23 [facility] [id number] Univers 17:00:00 17:00:00 [facility] 2021-08-23 2021-08-23 Telephone [facility] 1.2.840.114 [id number] Univers 00:00:00 00:00:00 Maureen [place] [id number] ity [facility] [id number] [facility] [id number] Ga dicdavid [facility] 231 Branch BUILDING 2021-08-02 2021-08-02 Outpatient R JESS [facility] [id number] Univers 10:20:00 13:19:[address] [facility] 2021-08-02 2021-08-02 Telemedici [facility] 1.2.840.114 [id number] Univers 08:30:30 13:19:18 ne Visit Maureen [place] [id number] ity [facility] [id number] [id number] Ga dical NAL 231 [facility] 2021-08-02 2021-08-02 [facility] [id number] Univers 10:20:00 10:20:[id number] [facility] 2021-07-08 2021-07-08 Refill [facility] 1.2.840.114 [id number] Univers 00:00:00 00:00:00 Maureen [place] [id number] ity [facility] [id number] [id number] Ga dical nal 231 [facility] 2021-06-30 2021-06-30 Office [facility] 1.2.840.114 [id number] Univers 11:26:48 12:14:06 Visit Puja [place] [id number] i ty of [id number] [phone] Ga dical nal 085 [facility] 2021-06-30 2021-06-30 Outpatient R PUJA FOLEY [facility] [id number] Univers 11:30:00 11:30:00 PUJA FOLEY [id number] i ty of [facility] 2021-06-30 2021-06-30 Outpatient R PUJA FOLEY [facility] [id number] Univers 11:30:00 11:30:00 PUJA FOLEY i ty of [facility] 2021-06-24 2021-06-24 Outpatient R PUJA FOLEY [facility] [id number] Univers 13:20:00 13:20:00 PUJA FOLEY [id number] i ty of [facility] 2021-06-24 2021-06-24 Outpatient R PUJA FOLEY [facility] [id number] Univers 13:20:00 13:20:00 PUJA FOLEY i ty of [facility] 2021-06-17 2021-06-17 Outpatient R GLADYS [facility] [id number] Univers 15:20:00 15:20:00 JESSICA [id number] [facility] [facility] [place] 2021-06-17 2021-06-17 Outpatient R GLADYS [facility] [id number] Univers 15:20:00 15:20:[address] [facility] [place] 2021-05-26 2021-05-26 Outpatient R JESS [facility] [id number] Univers 14:00:00 14:00:[id number] [facility] [place] 2021-05-26 2021-05-26 Outpatient R JESS [facility] [id number] Univers 14:00:00 14:00:[address] [facility] [place] 2021-05-20 2021-05-20 Outpatient JESS [facility] [id number] Univers 13:40:00 13:40:[id number] [facility] [place] 2021-05-20 2021-05-20 Outpatient R JESS [facility] [id number] Univers 13:40:00 13:40:[address] [facility] [place] 2021-05-06 2021-05-06 Outpatient R JESS [facility] [id number] Univers 10:40:00 10:40:[id number] [facility] [place] 2021-05-06 2021-05-06 Outpatient R EJSS [facility] [id number] Univers 10:40:00 10:40:[address] [facility] [place] 2021-04-28 2021-04-28 [facility] [id number] 09:07:52 14:36:33 Visit Maureen Dowling [id number] [place] [id number] [facility] [id number] pending sale to [facility] 2021-04-28 2021-04-28 Outpatient R JESS [facility] [id number] Univers 09:20:00 09:20:[id number] [facility] [place] 2021-04-28 2021-04-28 Outpatient R JESS [facility] [id number] Univers 09:20:00 09:20:[address] [facility] [place] 2021-01-11 2021-01-11 Outpatient R RAISSA [facility] [id number] Univers 12:00:00 12:00:[id number] [facility] [place] 2021-01-11 2021-01-11 Outpatient R ADUM, [facility] [id number] Univers 00:00:00 00:00:[address] [facility] [place] 2020-12-28 2020-12-28 Outpatient R JUANUM, [facility] [id number] Univers 15:30:00 15:30:[id number] [facility] [place] 2020-12-28 2020-12-28 Outpatient R JUANUM, [facility] [id number] Univers 15:30:00 15:30:[address] [facility] [place] 2020-12-23 2020-12-23 Outpatient R PUJA FOLEY [facility] [id number] Univers 13:30:00 13:30:00 PUJA FOLEY [id number] i ty [facility] 2020-12-23 2020-12-23 Outpatient R PUJA FOLEY [facility] [id number] Univers 13:30:00 13:30:00 PUJA FOLEY i ty of [facility] 2020-12-21 2020-12-21 Outpatient R EVELYN [facility] [id number] Univers 13:00:00 13:00:00 MELANIE [id number] ity o f [facility] 2020-12-21 2020-12-21 Outpatient R EVELYN [facility] RAD [id number] Univers 00:00:00 00:00:00 MELANIEVICKIE cortez [facility] 2020-12-09 2020-12-09 Outpatient R PUJA FOLEY [facility] [id number] Univers 14:00:00 14:00:00 PUJA FOLEY [id number] i ty of [facility] 2020-12-09 2020-12-09 Outpatient R PUJA FOLEY [facility] [id number] Univers 14:00:00 14:00:[address] [facility] 2020-11-30 2020-11-30 Outpatient Morro LINDA [facility] [id number] Univers 11:10:00 11:10:[id number] [facility] [place] 2020-11-30 2020-11-30 Outpatient Morro LINDA, [facility] [id number] Univers 11:10:00 11:10:[address] [facility] [place] 2020-11-23 2020-11-23 Outpatient EVELYN [facility] [id number] Univers 10:00:00 10:00:00 MELANIE Vallecillo309 [facility] 2020-11-18 2020-11-18 Outpatient [place] RIVAS [facility] [id number] Univers 14:00:00 14:00:00 MELANIE bobritt tiarra dana [facility] 2020-11-18 2020-11-18 Outpatient Morro MERCADO [facility] [id number] Univers 10:40:00 10:40:[address] [facility] [place] 2020-11-18 2020-11-18 Outpatient Morro MERCADO [facility] [id number] Univers 10:40:00 10:40:[address] [facility] [place] 2020-11-15 2020-11-15 Outpatient [place] RIVAS [facility] [id number] Univers 13:00:00 13:00:00 MELANIE Vallecillo301 [facility] 2020-11-15 2020-11-15 Outpatient [place] RIVAS [facility] [id number] Univers 13:00:00 13:00:00 MELANIE itbritt o f [facility] 2020-11-09 2020-11-09 Outpatient [facility] [id number] Univers 11:10:00 11:10:[id number] [facility] 2020-11-09 2020-11-09 Outpatient R LINDA, [facility] [id number] Univers 11:10:00 11:10:[address] [facility] 2020-11-04 2020-11-04 Outpatient R PUJA FOLEY [facility] [id number] Univers 11:20:00 11:20:00 PUJA FOLEY [id number] i ty of [facility] 2020-11-04 2020-11-04 Outpatient R PUJA FOLEY [facility] [id number] Univers 11:20:00 11:20:00 PUJA FOLEY i ty of [facility] 2020-10-13 2020-10-13 Outpatient R [facility] [id number] Univers 14:00:00 14:00:00 [id number]-10[facility]13 2020-10-13 Outpatient R [facility] [id number] Univers 14:00:00 14:00:[address] [facility] [place] 2020-09-16 2020-09-16 [facility] [id number] Univers 00:00:00 00:00:[id number] [facility] [place] 2020-09-16 2020-09-16 Outpatient R JESS [facility] [id number] Univers 00:00:00 00:00:[address] [facility] [place] 2020-08-19 2020-08-19 Outpatient R JESS [facility] [id number] Univers 10:20:00 10:20:[address] [facility] [place] 2020-08-19 2020-08-19 Outpatient R JESS [facility] [id number] Univers 10:20:00 10:20:[address] [facility] [place] 2020-05-06 2020-05-06 Outpatient [facility] [id number] Univers 12:30:00 12:30:00 ity of [facility] 2020-05-06 2020-05-06 Outpatient R JUAN FRANCISCO [facility] [id number] Univers 12:30:00 12:30:00 JOLENE ity of [facility] 2020-05-03 2020-05-03 Outpatient R [facility] [id number] Univers 11:15:00 11:15:00 [id number] ity of [facility] 2020-05-03 2020-05-03 Outpatient R JUAN FRANCISCO [facility] [id number] Univers 11:15:00 11:15:[address] [facility] 2020-04-29 2020-04-29 Outpatient R PUJA FOLEY [facility] [id number] Univers 15:20:00 15:20:00 PUJA FOLEY [id number] i ty of [facility] 2020-04-29 2020-04-29 Outpatient R PUJA FOLEY [facility] [id number] Univers 15:20:00 15:20:00 PUJA FOLEY i ty of [facility] 2020-04-12 2020-04-12 Outpatient R JESS [facility] [id number] Univers 14:40:00 14:40:[address] [facility] [place] 2020-04-12 2020-04-12 Outpatient R JESS [facility] [id number] Univers 10:40:00 10:40:00 [facility] [id number] [facility]08 2020-03-08 Outpatient R JESS [facility] [id number] Univers 15:40:00 15:40:[id number] [facility] 2020-03-08 2020-03-08 Outpatient R JESS [facility] [id number] Univers 15:40:00 15:40:[address] [facility] [place] [place] 2020-02-26 2020-02-26 Outpatient R JESS [facility] [id number] Univers 10:00:00 10:00:00 [facility]-01-12 2020-01-12 Outpatient R JESS [facility] [id number] Univers 09:40:00 09:40:[id number] [facility] [place] 2020-01-12 2020-01-12 Outpatient Morro MERCADO [facility] [id number] Univers 09:40:00 09:40:[address] [facility] [place] 2019-12-23 2019-12-23 Outpatient Morro MERCADO [facility] [id number] Univers 10:20:00 10:20:[address] [facility] [place] 2019-12-01 2019-12-01 Outpatient DEJUAN RIVERO [facility] [id number] Univers 13:40:00 13:40:[id number] [facility] [place] [place] 2019-12-01 2019-12-01 Outpatient DEJUAN RIVERO [facility] [id number] Univers 13:40:00 13:40:[address] [facility] [place] [place] 2019-08-17 2019-08-21 Inpatient ANYI POWELL [facility] [id number] Univers 16:40:37 18:12:[address] [facility] [place] [place] Results Test Description Test Time Test Comments Results Result Comments Source SARS-CoV2/RT-PCR (Asymptomatic ONLY) 2021-09-15 16:14:42 Test Item Value Reference Range Interpretation Comme nts SARS-COV2/RT-PCR (test code = Negative Negative 42741-8) JUANIS (test code = JUANIS) Negative result [...] Hernandez SARS-CoV-2 assay. Fact Sheet for Healthcare Providers:https://www.Accolo kareem/schuyler/RT SARS-CoV-2 HCP Fact Sheet 51-104418.pdf Fact Sheet for Healthcare Patients:https://www.Typemock.Sword & Plougho tt/schuyler/RT SARS-CoV-2 Patient Fact Sheet EN 51-961281B7.pdf Lab Interpretation (test code = Normal 98690-7) [facility]21-09-15 16:14:42 Test Item Value Reference Range Interpretation Comments SARS-COV2/RT-PCR (test Negative Negative code = 41513-7) JUANIS (test code = JUANIS) Negative result [...] the Act. Testing was performed using the Visible Measures SARS-CoV-2 assay. Fact Sheet for Healthcare Providers:https://www.toney santoshernandez/schuyler/RT SARS-CoV-2 HCP Fact Sheet 51-617916.pdf Fact Sheet for Healthcare Patients:https://www.juan moreMadeiraMadeira/schuyler/RT SARS-CoV-2 Patient Fact Sheet EN 51-264680J6.pdf Lab Interpretation Normal (test code = 34523-0) [facility])2021-09-15 16:14:42 Test Item Value Reference Range Interpretation Comments SARS-COV2/RT-PCR (test code = Negative Negative 0085145) Negative result for this test determines that [...] the Hernandez SARS-CoV-2 assay.Fact Sheet for Healthcare Providers:https://www.Typemock.MadeiraMadeira/schuyler/RT SARS-CoV-2 HCP Fact Sheet 51- 756972.pdfFact Sheet for Healthcare Patients:https://www.Precision for Medicine/schuyler/RT SARS-CoV-2 Patient Fact Sheet EN 51-702296J5.pdfSARS-COV2/RT-PCR ([facility])2021-09-15 11:07:01 Test Item Value Reference Range Interpretation Comments SARS-COV2/RT-PCR (test code = Negative Negative 7254719) Negative result for this test determines that [...] the Hernandez SARS-CoV-2 assay.Fact Sheet for Healthcare Providers:https://www.molecular.MadeiraMadeira/schuyler/RT SARS-CoV-2 HCP Fact Sheet 51- 491500.pdfFact Sheet for Healthcare Patients:https://www.Typemock.MadeiraMadeira/schuyler/RT SARS-CoV-2 Patient Fact Sheet EN 51-806580O0.pdfCBC with platelet count + automated stxt4665-21-11 06:22:16 Test Item Value Reference Range Interpretation Comments WBC (test code = 6690-2) 13.2 See_Comment H [A utomated message] The system DataContact generated this result transmitted ref erence range: 3.5 - 10 .5 K/L. The refe rence range was not u sed to interpret this result as normal/abnor mal. RBC (test code = 789-8) 3.59 See_Comment L [Au tomated message] The system DataContact generated this result transmitted ref erence range: 3.93 - 5 .22 M/L. The refe rence range was not u sed to interpret this result as normal/abnor mal. MCHC (test code = 786-4) 33.0 See_Comment L [A utomated message] The system DataContact generated this result transmitted ref erence range: [...] See_Comment [Aut omated message] 777-3) The system DataContact generated this result transmitted ref erence range: 150 - 45 0 K/CU MM. The referen ce range was not u sed to interpret this result as normal/abnor mal. MPV (test code = 9.8 fL 9.4-12.3 11019-9) nRBC (test code = 413) 0 See_Comment [Aut omated message] The system DataContact generated this result transmitted ref erence range: [...] H [Aut omated message] 670) The system DataContact generated this result transmitted ref erence range: 1.56 - 6 .13 K/L. The refe rence range was not u sed to interpret this result as normal/abnor mal. # Lymphs (test code = 3.72 See_Comment [Auto mated message] 414) The system DataContact generated this result transmitted ref erence range: 1.18 - 3 .74 K/L. The refe rence range was not u sed to interpret this result as normal/abnor mal. # Monos (test code = 1.11 See_Comment H [Autom ated message] 415) The system DataContact generated this result transmitted ref erence range: 0.24 - 0 .36 K/L. The refe rence range was not u sed to interpret this result as normal/abnor mal. # Eos (test code = 416) 0.33 See_Comment [Au tomated message] The system DataContact generated this result transmitted ref erence range: 0.04 - 0 .36 K/L. The refe rence range was not u sed to interpret this result as normal/abnor mal. # Baso (test code = 417) 0.04 See_Comment [A utomated message] The system DataContact generated this result transmitted ref erence range: 0.01 - 0 .08 K/L. The refe rence range was not u sed to interpret this result as normal/abnor mal. Immature 1 % 0-1 Granulocytes-Relative (test code = 2801) Lab Interpretation (test Abnormal code = 25081-9) [facility] with platelet count + automated [id number] 06:22:16 Test Item Value Reference Range Interpretation Comments WBC (test code = 6690-2) 13.2 See_Comment H [A utomated message] The system DataContact generated this result transmitted ref erence range: 3.5 - 10 .5 K/L. The refe rence range was not u sed to interpret this result as normal/abnor mal. RBC (test code = 789-8) 3.59 See_Comment L [Au tomated message] The system DataContact generated this result transmitted ref erence range: 3.93 - 5 .22 M/L. The refe rence range was not u sed to interpret this result as normal/abnor mal. MCHC (test code = 786-4) 33.0 See_Comment L [A utomated message] The system DataContact generated this result transmitted ref erence range: [...] See_Comment [Aut omated message] 777-3) The system DataContact generated this result transmitted ref erence range: 150 - 45 0 K/CU MM. The referen ce range was not u sed to interpret this result as normal/abnor mal. MPV (test code = 9.8 fL 9.4-12.3 58914-2) nRBC (test code = 413) 0 See_Comment [Aut omated message] The system DataContact generated this result transmitted ref erence range: [...] H [Aut omated message] 670) The system DataContact generated this result transmitted ref erence range: 1.56 - 6 .13 K/L. The refe rence range was not u sed to interpret this result as normal/abnor mal. # Lymphs (test code = 3.72 See_Comment [Auto mated message] 414) The system DataContact generated this result transmitted ref erence range: 1.18 - 3 .74 K/L. The refe rence range was not u sed to interpret this result as normal/abnor mal. # Monos (test code = 1.11 See_Comment H [Autom ated message] 415) The system DataContact generated this result transmitted ref erence range: 0.24 - 0 .36 K/L. The refe rence range was not u sed to interpret this result as normal/abnor mal. # Eos (test code = 416) 0.33 See_Comment [Au tomated message] The system DataContact generated this result transmitted ref erence range: 0.04 - 0 .36 K/L. The refe rence range was not u sed to interpret this result as normal/abnor mal. # Baso (test code = 417) 0.04 See_Comment [A utomated message] The system DataContact generated this result transmitted ref erence range: 0.01 - 0 .08 K/L. The refe rence range was not u sed to interpret this result as normal/abnor mal. Immature 1 % 0-1 Granulocytes-Relative (test code = 2801) Lab Interpretation (test Abnormal code = 31750-4) [facility] W/PLT COUNT & AUTO [id number] 06:22:16 Test Item Value Reference Range Interpretation [...] (BEAKER) (test code = 2801) Vancomycin level, [id number] 14:18:34 Test Item Value Reference Range Interpretation Comments Vancomycin Tr (test code = 8.4 ug/mL 10.0-20.0 L 4092-3) JUANIS (test code = JUANIS) Dye Penetrant Testing Technician ID - PIAYA L Lab Interpretation (test Abnormal code = 30971-6) [facility] [id number] 14:18:34 Test Item Value Reference Range Interpretation Comments Vancomycin Tr (test code = 8.4 ug/mL 10.0-20.0 L 4092-3) JUANIS (test code = JUANIS) Dye Penetrant Testing Technician ID - PIAYA L Lab Interpretation (test Abnormal code = 35933-5) [facility] LEVEL, [id number] 14:18:34 Test Item Value Reference Range Interpretation Comments VANCOMYCIN TROUGH (BEAKER) (test 8.4 ug/mL 10.0-20.0 L code = 522) Dye Penetrant Testing Technician ID - DEANGELO LCBC W/PLT COUNT & AUTO [id number] 14:05:32 Test Item Value Reference Range Interpretation [...] = No growth in 5 days 6463-4) [facility] (Right [facility]ipuncture) 2021-09-13 02:00:53 Test Item Value Reference Range Interpretation Comments Result (test code = No growth in 5 days 6463-4) [facility] [id number] 02:00:53 Test Item Value Reference Range Interpretation Comments CULTURE (BEAKER) (test No growth in 5 days code = 1095) BLOOD [id number] 02:00:52 Test Item Value Reference Range Interpretation Comments CULTURE (BEAKER) (test No growth in 5 days code = 1095) Transesophageal [id number] 18:48:24Ejection FractionSLEH ECHO HEARTLAB MKCKESSON [facility] [id number] 18:48:24Ejection FractionSLEH ECHO HEARTLAB MKCKESSON [facility] CenterVANCOMYCIN LEVEL, [id number] 13:59:47 Test Item Value Reference Range Interpretation Comments VANCOMYCIN TROUGH (BEAKER) (test 8.4 ug/mL 10.0-20.0 L code = 522) Dye Penetrant Testing Technician ID - DBLactic acid, lwkkom7662-24-25 13:58:08 Test Item Value Reference Range Interpretation Comments Lactate, Venous (test code = 1.96 mmol/L 0.50-2.20 2872) JUANIS (test code = JUANIS) Dye Penetrant Testing Technician ID - DB Lab Interpretation (test Normal code = 80317-7) [facility] CenterL[facility], [id number] 13:58:08 Test Item Value Reference Range Interpretation Comments Lactate, Venous (test code = 1.96 mmol/L 0.50-2.20 2872) JUANIS (test code = JUANIS) Dye Penetrant Testing Technician ID - DB Lab Interpretation (test Normal code = 23723-5) [facility] Center[facility]CT[facility] ACID, [id number] 13:58:08 Test Item Value Reference Range Interpretation Comments LACTATE BLOOD VENOUS (2) (BEAKER) 1.96 mmol/L 0.50-2.20 (test code = 2872) Dye Penetrant Testing Technician ID - DBBasic Metabolic [id number] 13:56:06 Test Item Value Reference Range Interpretation Comments Sodium (test code = 134 meq/L 136-145 L 2951-2) Potassium (test code = 4.3 meq/L 3.5-5.1 2823-3) Chloride (test code = 99 meq/L 98-107 5-0) CO2 (test code = 25 meq/L 22-29 8-9) BUN (test code = 18 mg/dL 7- 3094-0) Creatinine (test code 0.76 mg/dL 0.57-1.25 = 2160-0) Glucose (test code = 118 mg/dL 70-105 H 2345-7) Calcium (test code = 8.7 mg/dL 8.4-10.2 58578-7) EGFR (test code = 77 mL/min/1.73 [place] [address]-9) NOT ACCURATE CREATININE CLEARANCE IN PREDICTING GLOMERULAR FILTRATION RATE . ESTIMATED GFR I S NOT APPLICABLE FOR DIALYSIS PATIENTS. JUANIS (test code = JUANIS) Dye Penetrant Testing Technician ID - DB Lab Interpretation Abnormal (test code = 47217-4) [facility] Metabolic [id number] 13:56:06 Test Item Value Reference Range Interpretation Comments Sodium (test code = 134 meq/L 136-145 L 2951-2) Potassium (test code = 4.3 meq/L 3.5-5.1 2823-3) Chloride (test code = 99 meq/L 98-107 2075-0) CO2 (test code = 25 meq/L -8-9) BUN (test code = 18 mg/dL 7-21 3094-0) Creatinine (test code 0.76 mg/dL 0.57-1.25 = 2160-0) Glucose (test code = 118 mg/dL 70-105 H 2345-7) Calcium (test code = 8.7 mg/dL 8.4-10.2 90807-3) EGFR (test code = 77 mL/min/1.73 [place] [address]-0) NOT ACCURATE CREATININE CLEARANCE IN PREDICTING GLOMERULAR FILTRATION RATE . ESTIMATED GFR I S NOT APPLICABLE FOR DIALYSIS PATIENTS. JUANIS (test code = JUANIS) Dye Penetrant Testing Technician ID - DB Lab Interpretation Abnormal (test code = 09153-7) [facility] METABOLIC [id number] 13:56:06 Test Item Value Reference Range Interpretation Comments SODIUM (BEAKER) 134 meq/L 136-145 L (test code = 381) POTASSIUM (BEAKER) 4.3 meq/L 3.5-5.1 (test code = 379) CHLORIDE (BEAKER) 99 meq/L 98-107 (test code = 382) CO2 (BEAKER) (test 25 meq/L - code = 355) BLOOD UREA NITROGEN 18 [...] S NOT APPLICABLE FOR DIALYSIS PATIEN TS. Dye Penetrant Testing Technician ID - DBCBC W/PLT COUNT & AUTO [id number] 13:21:48 Test Item Value Reference Range Interpretation [...] (BEAKER) (test code = 2801) BASIC METABOLIC [id number] 14:26:25 Test Item Value Reference Range Interpretation [...] S NOT APPLICABLE FOR DIALYSIS PATIEN TS. Dye Penetrant Testing Technician ID - [id number] 14:11:30 Test Item Value Reference Range Interpretation Comments Magnesium (test code = 1.9 mg/dL 1.6-2.6 52559-3) JUANIS (test code = JUANIS) Dye Penetrant Testing Technician ID - DB Lab Interpretation (test Normal code = 36584-0) [facility] Center[facility]esium2021-12-[facility] 14:11:30 Test Item Value Reference Range Interpretation Comments Magnesium (test code = 1.9 mg/dL 1.6-2.6 45283-2) JUANIS (test code = JUANIS) Dye Penetrant Testing Technician ID - DB Lab Interpretation (test Normal code = 24897-9) [facility] CenterMAGNESIUM2021-12-26 14:11:30 Test Item Value Reference Range Interpretation Comments MAGNESIUM (BEAKER) (test code = 1.9 mg/dL 1.6-2.6 627) Dye Penetrant Testing Technician ID - MARCOSVANCOMYCIN LEVEL, [id number] 12:54:39 Test Item Value Reference Range Interpretation Comments VANCOMYCIN TROUGH (BEAKER) (test 10.7 ug/mL 10.0-20.0 code = 522) Dye Penetrant Testing Technician ID - IGNACIO [id number] 08:00:34 Test Item Value Reference Range Interpretation Comments Albumin (test code = 2.2 g/dL 3.5-5.0 L 42283-4) JUANIS (test code = JUANIS) Dye Penetrant Testing Technician ID - IGNACIO W Lab Interpretation (test Abnormal code = 23414-2) [facility] Center[facility]in[facility]21-[facility] 08:00:34 Test Item Value Reference Range Interpretation Comments Albumin (test code = 2.2 g/dL 3.5-5.0 L 85232-5) JUANIS (test code = JUANIS) Dye Penetrant Testing Technician ID - IGNACIO W Lab Interpretation (test Abnormal code = 21998-1) [facility]UMIN[facility] 08:00:34 Test Item Value Reference Range Interpretation Comments ALBUMIN (BEAKER) (test code = 1145) 2.2 g/dL 3.5-5.0 L Dye Penetrant Testing Technician ID - IGNACIO [id number] 06:36:13 Test Item Value Reference Range Interpretation Comments Calcium (test code = 6.4 mg/dL 8.4-10.2 L 20489-4) JUANIS (test code = JUANIS) Dye Penetrant Testing Technician ID - IGNACIO W Lab Interpretation (test Abnormal code = 64651-8) [facility] Center[facility]21-[facility] 06:36:13 Test Item Value Reference Range Interpretation Comments Calcium (test code = 6.4 mg/dL 8.4-10.2 L 24663-1) JUANIS (test code = JUANIS) Dye Penetrant Testing Technician ID - IGNACIO W Lab Interpretation (test Abnormal code = 87861-1) [facility] Center[facility]CIUM2021-[facility]-25 06:36:13 Test Item Value Reference Range Interpretation Comments CALCIUM (BEAKER) (test code = 697) 6.4 mg/dL 8.4-10.2 L Dye Penetrant Testing Technician ID Ashley PIERRE WBASIC METABOLIC [id number] 05:17:45 Test Item Value Reference Range Interpretation [...] S NOT APPLICABLE FOR DIALYSIS PATIEN TS. Dye Penetrant Testing Technician ID Ashley PIERRE [id number] 05:10:32 Test Item Value Reference Range Interpretation Comments Phosphorus (test code = 2.4 mg/dL 2.3-4.7 2777-1) JUANIS (test code = JUANIS) Dye Penetrant Testing Technician ID Ashley PIERRE W Lab Interpretation (test Normal code = 45722-8) [facility]10[facility]32 Test Item Value Reference Range Interpretation Comments Phosphorus (test code = 2.4 mg/dL 2.3-4.7 2777-1) JUANIS (test code = JUANIS) Dye Penetrant Testing Technician ID Ashley PIERRE W Lab Interpretation (test Normal code = 57097-9) [facility] 05:10:32 Test Item Value Reference Range Interpretation Comments PHOSPHORUS (BEAKER) (test code = 2.4 mg/dL 2.3-4.7 604) Dye Penetrant Testing Technician ID - IGNACIO [id number] 05:10:31 Test Item Value Reference Range Interpretation Comments MAGNESIUM (BEAKER) (test code = 1.7 mg/dL 1.6-2.6 627) Dye Penetrant Testing Technician ID - IGNACIO VARNERalcium, [id number] 04:50:40 Test Item Value Reference Range Interpretation Comments Calcium, Ion (test code = 1993-11) 1.15 mmol/L 1.12-1.27 pH, Blood (test code = 25302-6) 7.39 [facility], [id number] 04:50:40 Test Item Value Reference Range Interpretation Comments Calcium, Ion (test code = 1993-11) 1.15 mmol/L 1.12-1.27 pH, Blood (test code = 82336-3) 7.39 [facility], [id number] 04:50:40 Test Item Value Reference Range Interpretation Comments CALCIUM IONIZED (BEAKER) (test 1.15 mmol/L 1.12-1.27 code = 698) PH, BLOOD (BEAKER) (test code = 7.39 1810) CBC W/PLT COUNT & AUTO [id number] 04:36:32 Test Item Value Reference Range Interpretation [...] (BEAKER) (test code = 2801) VANCOMYCIN LEVEL, [id number] 19:55:12 Test Item Value Reference Range Interpretation Comments VANCOMYCIN TROUGH (BEAKER) (test 20.3 ug/mL 10.0-20.0 H code = 522) Dye Penetrant Testing Technician ID - DBBASIC METABOLIC [id number] 05:20:28 Test Item Value Reference Range Interpretation [...] S NOT APPLICABLE FOR DIALYSIS PATIEN TS. Dye Penetrant Testing Technician ID - DEANGELO [id number] 05:17:02 Test Item Value Reference Range Interpretation Comments MAGNESIUM (BEAKER) (test code = 1.5 mg/dL 1.6-2.6 L 627) Dye Penetrant Testing Technician ID - DEANGELO [id number] 05:17:02 Test Item Value Reference Range Interpretation Comments PHOSPHORUS (BEAKER) (test code = 2.8 mg/dL 2.3-4.7 604) Dye Penetrant Testing Technician ID - DEANGELO LCALCIUM, [id number] 04:11:31 Test Item Value Reference Range Interpretation Comments CALCIUM IONIZED (BEAKER) (test 1.10 mmol/L 1.12-1.27 L code = 698) PH, BLOOD (BEAKER) (test code = 7.43 1810) CBC W/PLT COUNT & AUTO [id number] 04:09:30 Test Item Value Reference Range Interpretation [...] (BEAKER) (test code = 2801) Comprehensive metabolic [id number] 01:11:40 Test Item Value Reference Range Interpretation Comments Protein, Total (test 6.1 See_Comment [Autom ated code = 2885-2) message] The system which generated this result transmit veronica reference range : 6.0 - 8.3 gm/dL . The reference range was not u sed to interpret th is result as normal/abnormal . Albumin (test code = 3.4 g/dL 3.5-5.0 L 81007-9) Alkaline Phosphatase 57 U/L 40-150 (test code = 6768-6) Total Bilirubin (test 0.3 mg/dL 0.2-1.2 code = 1975-2) Sodium (test code = 136 meq/L 157-448 0557-2) Potassium (test code 3.7 meq/L 3.5-5.1 = 2823-3) Chloride (test code = 100 meq/L 98-107 2075-0) CO2 (test code = 28 meq/L -2027-9) BUN (test code = 15 mg/dL 7-21 3094-0) Creatinine (test code 0.69 mg/dL 0.57-1.25 = 2160-0) Glucose (test code = 104 mg/dL 70-105 2345-7) Calcium (test code = 8.7 mg/dL 8.4-10.2 14871-8) AST (test code = 11 U/L 5-34 1920-8) ALT (test code = 13 U/L 6-55 1742-6) EGFR (test code = 86 mL/min/1.73 [place] [address]-2) NOT ACCURATE CREATININE CLEARANCE IN PREDICTING GLOMERULAR FILTRATION RATE . ESTIMATED GFR I S NOT APPLICABLE FOR DIALYSIS PATIEN TS. JUANIS (test code = JUANIS) Dye Penetrant Testing Technician ID - BS Lab Interpretation Abnormal (test code = 47651-0) [facility]-Reactive [id number] 01:11:40 Test Item Value Reference Range Interpretation Comments CRP (test code = 676) 0.55 mg/dL 0.00-0.50 H JUANIS (test code = JUANIS) Dye Penetrant Testing Technician ID - BS Lab Interpretation (test Abnormal code = 48490-1) [facility] CenterComprehensive metabolic [id number] 01:11:40 Test Item Value Reference Range Interpretation Comments Protein, Total (test 6.1 See_Comment [Autom ated code = 2885-2) message] The system which generated this result transmit veronica reference range : 6.0 - 8.3 gm/dL . The reference range was not u sed to interpret th is result as normal/abnormal . Albumin (test code = 3.4 g/dL 3.5-5.0 L 70753-4) Alkaline Phosphatase 57 U/L 40-150 (test code = 6768-6) Total Bilirubin (test 0.3 mg/dL 0.2-1.2 code = 1974-2) Sodium (test code = 136 meq/L 713-656 8674-2) Potassium (test code 3.7 meq/L 3.5-5.1 = 2823-3) Chloride (test code = 100 meq/L 98-107 5-0) CO2 (test code = 28 meq/L -29 2028-9) BUN (test code = 15 mg/dL 7-21 3094-0) Creatinine (test code 0.69 mg/dL 0.57-1.25 = 2160-0) Glucose (test code = 104 mg/dL 70-105 2345-7) Calcium (test code = 8.7 mg/dL 8.4-10.2 42805-1) AST (test code = 11 U/L 5-34 1920-8) ALT (test code = 13 U/L 6-55 1742-6) EGFR (test code = 86 mL/min/1.73 [place] [address]-6) NOT ACCURATE CREATININE CLEARANCE IN PREDICTING GLOMERULAR FILTRATION RATE . ESTIMATED GFR I S NOT APPLICABLE FOR DIALYSIS PATIEN TS. JUANIS (test code = JUANIS) Dye Penetrant Testing Technician ID - BS Lab Interpretation Abnormal (test code = 63616-4) [facility] [id number] 01:11:40 Test Item Value Reference Range Interpretation Comments CRP (test code = 676) 0.55 mg/dL 0.00-0.50 H JUANIS (test code = JUANIS) Dye Penetrant Testing Technician ID - BS Lab Interpretation (test Abnormal code = 82954-4) [facility] CenterCOMPREHENSIVE METABOLIC [id number] 01:11:40 Test Item Value Reference Range Interpretation [...] = 382) CO2 (BEAKER) (test 28 meq/L code = 355) BLOOD UREA NITROGEN 15 mg/dL 7- (BEAKER) (test code = 354) CREATININE (BEAKER) [...] S NOT APPLICABLE FOR DIALYSIS PATIEN TS. Dye Penetrant Testing Technician ID - [id number] 01:11:40 Test Item Value Reference Range Interpretation Comments MAGNESIUM (BEAKER) (test code = 2.0 mg/dL 1.6-2.6 627) Dye Penetrant Testing Technician ID - BSC-REACTIVE [id number] 01:11:40 Test Item Value Reference Range Interpretation Comments C-REACTIVE PROTEIN (BEAKER) (test 0.55 mg/dL 0.00-0.50 H code = 676) Dye Penetrant Testing Technician ID - BSLACTIC ACID, [id number] 01:03:18 Test Item Value Reference Range Interpretation Comments LACTATE BLOOD VENOUS (2) (BEAKER) 1.11 mmol/L 0.50-2.20 (test code = 2872) Dye Penetrant Testing Technician ID - BSBlood gas, [id number] 01:02:34 Test Item Value Reference Range Interpretation Comments pH, Van (test code = 7.47 7.32-7.42 H 8986-6) pCO2, Van (test code = 41 See_Comment [Aut omated message] 235) The system [employer] h generated this result transmit veronica reference range : 41 - 51 mm Hg. The reference range was not used to interpret this result as normal/abnormal . pO2, Van (test code = 100 See_Comment H [Auto mated message] 8625-2) The system whic h generated this result transmit veronica reference range : 25 - 40 mm Hg. The reference range was not used to interpret this result as normal/abnormal . O2 Sat, Van (test code 98.0 % 40.0-70.0 H = 2711-0) HCO3, Van (test code = 29 mmol/L 21-29 60830-0) Base Excess, Van (test 4.7 mmol/L -2.0-3.0 H code = 1927-3) Patient Temperature 36.1 (test code = 8310-5) FIO2 (test code = 1819) 21 Lab Interpretation Abnormal (test code = 75005-6) [facility] gas, [id number] 01:02:34 Test Item Value Reference Range Interpretation Comments pH, Van (test code = 7.47 7.32-7.42 H 2746-6) pCO2, Van (test code = 41 See_Comment [Aut omated message] 755) The system [employer] generated this result transmit vreonica reference range : 41 - 51 mm Hg. The reference range was not used to interpret this result as normal/abnormal . pO2, Van (test code = 100 See_Comment H [Auto mated message] 2705-2) The system [employer] generated this result transmit veronica reference range : 25 - 40 mm Hg. The reference range was not used to interpret this result as normal/abnormal . O2 Sat, Van (test code 98.0 % 40.0-70.0 H = 2711-0) HCO3, Van (test code = 29 mmol/L -29 88055-5) Base Excess, Van (test 4.7 mmol/L -2.0-3.0 H code = 1927-3) Patient Temperature 36.1 (test code = 8310-5) FIO2 (test code = 1819) 21 Lab Interpretation Abnormal (test code = 26715-3) [facility] GAS, [id number] 01:02:34 Test Item Value Reference Range Interpretation [...] 1819) 21.0 CBC W/PLT COUNT & AUTO [id number] 00:49:55 Test Item Value Reference Range Interpretation [...] (BEAKER) (test code = 2801) CBC WITH [id number] 01:31:00 Test Item Value Reference Range Interpretation Comments WBC (test code = See_Comment H [Automated 9990-2) message] The sy stem which generated this [...] RDW-SD (test code = 41.3 fL 39.0-49.9 12467-0) RDW-CV (test code = 13.1 % 12.0-15.5 788-0) PLT (test code = See_Comment [Automated 777-3) message] The sy stem which generated this result transmitted reference range : 166 - 358 10*3/ ?L. The reference r raji was not used to interpret this result as normal/abnormal . MPV (test code = 10.4 fL 9.5-12.9 96060-5) NRBC/100 WBC (test See_Comment [Automat ed code = 0192978505) message] The system which generated this result transmitted reference range : 0.0 - 10.0 /100 WBCs. The refer ence range was not u sed to interpret th is result as normal/abnormal . NRBC x10^3 (test code <0.01 See_Comment [Auto mated = 7215317784) message] The s [employer] which generated this result transmitted reference range : 10*3/?L. The reference range was not used to interpret this result as normal/abnormal . GRAN MAT (NEUT) % 69.2 % (test code = 770-8) IMM GRAN % (test code 0.80 % = 2600569993) LYMPH % (test code = 15.1 % 736-9) MONO % (test code = 11.7 % 5905-5) EOS % (test code = 2.7 % 713-8) BASO % (test code = 0.5 % 706-2) GRAN MAT x10^3(ANC) 8.97 10*3/uL 1.88-7.09 H (test code = 5917370952) IMM GRAN x10^3 (test 0.10 10*3/uL 0.00-0.06 H code = 7644913599) LYMPH x10^3 (test code 1.96 10*3/uL 1.32-3.29 = 731-0) MONO x10^3 (test code 1.52 10*3/uL 0.33-0.92 H = 742-7) EOS x10^3 (test code = 0.35 10*3/uL 0.03-0.39 711-2) BASO x10^3 (test code 0.07 10*3/uL 0.01-0.07 = 704-7) Lab Interpretation Abnormal (test code = 34150-8) [facility] [id number] 01:25:16 Test Item Value Reference Interpretation Comments Range TROPONIN I (test 0.009 ng/mL See_Comment [Automated code = 4472396875) message] The system which generated this result [...] biotin. Lab Interpretation Normal (test code = 55187-3) [facility] [id number] 01:21:54 Test Item Value Reference Range Interpretation Comments NT-proBNP (test code 941 pg/mL See_Comment H [Autom ated = 4683999990) message] The system which generated this result transmitted reference range : <=125. The reference range was not used to interpret this result as normal/abnormal . JUANIS (test code = JUANIS) Biotin has been reported to cause a negative bias, interpret results relative to patient's use of biotin. Lab Interpretation Abnormal (test code = 27706-1) [facility] MET[facility]OLIC PANEL ([id number] 01:13:16 Test Item Value Reference Range Interpretation Comments NA (test code = 129 mmol/L 135-145 L 0288976971) K (test code = 4.4 mmol/L 3.5-5.0 4093568082) CL (test code = 95 mmol/L 98-108 L 9404776800) CO2 TOTAL (test code = 24 mmol/L 23-31 6157139715) AGAP (test code = 2-16 8193465013) BUN (test code = 9 mg/dL 7-23 3386051003) GLUCOSE (test code = 97 mg/dL 70-110 3546024701) CREATININE (test code = 0.55 mg/dL 0.50-1.04 8580109031) TOTAL BILI (test code = 0.8 mg/dL 0.1-1.3 3099984415) CALCIUM (test code = 8.9 mg/dL 8.6-10.6 9563655927) T PROTEIN (test code = 6.8 g/dL 6.3-8.2 9537190693) ALBUMIN (test code = 3.6 g/dL 3.5-5.0 4101634191) ALK PHOS (test code = 89 U/L 34-122 1548513764) ALTv (test code = 16 U/L 5-35 2-6) AST(SGOT) (test code = 31 U/L 13-40 9947810023) eGFR (test code = mL/min/1.73m2 0031501534) JUANIS (test code = JUANIS) Association of [...] tests). Lab Interpretation Abnormal (test code = 19250-1) [facility] / [id number] 01:03:10 Test Item Value Reference Range Interpretation Comments PROTIME PATIENT (test See_Comment [Auto mated message] code = 5964-2) The system [employer] generated this result transmitted ref erence range: 12.0 - 1 4.7 Seconds. The re ference range was not u sed to interpret this result as normal/abnor mal. INR (test code = 6301-6) Nor mal INR <1.1; Warfarin Therap eutic range 2.0 to 3. 0 or 2.5 to 3.5, dep ending upon the indica tions. Lab Interpretation (test Normal code = 47929-7) [facility]"
--- NOTE | 2022-01-20 08:33 | RAD REPORT ---
EXAM DESCRIPTION: CT - Head Brain Wo Cont - 01/20/2022 8:21 am CLINICAL HISTORY: Polytrauma, blunt COMPARISON: No comparisonsNo comparisons TECHNIQUE: All CT scans are performed using dose optimization technique as appropriate and may inclu de automated exposure control or mA/KV adjustment according to patient size. FINDINGS: No intracranial hemorrhage, hydrocephalus or extra-axial fluid collection.Remote large lef t MCA territory infarct. Small remote right cerebellar infarct. Moderate chronic small vessel ischemi c changes. Cerebral atrophy. Asymmetric ex vacuo dilatation of the left lateral ventricle. The paranasal sinuses and mastoids are clear. The calvarium is intact. IMPRESSION: No acute intracranial abnormality. Sequela of remote infarcts.
--- NOTE | 2022-01-20 08:39 | RAD REPORT ---
EXAM DESCRIPTION: CT - Thorax Con - 01/20/2022 8:22 am CLINICAL HISTORY: Chest trauma, blunt COMPARISON: Chest For Pe Angio dated 09/01/2021; Chest For Pe Angio dated 05/02/2021 FINDINGS: Chest Wall: No suspicious thyroid nodules or pathologic lymphadenopathy. Lungs: No acute abnormality. Pleura: Small right pneumothorax. Mediastinum/roland: No pathologic lymphadenopathy. Small hiatal hernia. Thickened distal esophagus may reflect esophagitis. Pulmonary arteries/Aorta: Limited evaluation without contrast. No aortic aneurysm. Heart: No significant pericardial effusion. Normal heart size. Multi-vessel coronary artery disease. Upper abdomen: No acute abnormality. Bones: Multiple acute right-sided rib fractures. This includes the right lateral 7-9th ribs. The eigh th and ninth rib fractures are displaced by a full shaft width and are segmental. There are remote ri b fractures bilaterally. ACDF in the cervical spine. T5 superior endplate compression fracture with l ess than 20% loss of height. No bony retropulsion. All CT scans are performed using dose optimization technique as appropriate and may include automated exposure control or mA/KV adjustment according to patient size. IMPRESSION: Right-sided rib fractures including the right eighth and ninth posterior ribs which are displaced by a full shaft width and are segmental. Small right-sided hemothorax. No significant pneum othorax. Acute T5 compression fracture with less than 20% loss of height and no bony retropulsion.
[2022-01-20] MEDS ORDERED: HYDROMORPHONE HCL 0.5 MG/0.5 ML INJ ONE ×3 (08:53→15:15)
[2022-01-20 09:11] LABS: Absolute Lymphocytes (CBC) 1.1 K/uL (0.7-4.9); Hematocrit 29.3 % (36.0-45.0); Lymphocytes % 9.9 % (15.3-44.8); MPV 7.9 fL (7.6-11.3); RBC Red Blood Cell Count 3.58 M/uL (3.86-4.86)
[2022-01-20 09:13] LABS: Protime INR 1.03
[2022-01-20 09:27] LABS: Albumin 3.4 g/dL (3.4-5.0); Bilirubin Total 0.4 mg/dL (0.2-1.0); Potassium 3.6 mmol/L (3.5-5.1); Protein, Total 6.5 g/dL (6.4-8.2)
--- NOTE | 2022-01-20 09:57 | RAD REPORT ---
EXAM DESCRIPTION: CT - C Spine Wo Con - 01/20/2022 9:26 am CLINICAL HISTORY: Polytrauma, blunt COMPARISON: CT ABD PELVIS W CONTRAST dated 04/06/2015No comparisons TECHNIQUE: CT Scan was obtained of the cervical spine without contrast. Reformats were provided in t he sagittal and coronal plane. FINDINGS: No acute fracture of the cervical spine. No traumatic malalignment. No prevertebral edema. Degenerative changes are present at C3-4 and C4-5 were there is evidence of neural foraminal narrowi ng. No suspicious thyroid nodules or lymphadenopathy. The lung apices are clear. Status post C5 throu gh C7 ACDF. No hardware complications. Carotid artery calcifications. IMPRESSION: No fracture or traumatic malalignment of the cervical spine.
--- NOTE | 2022-01-20 10:00 | RAD REPORT ---
EXAM DESCRIPTION: CTAbdomen Pelvis Wo Contrast - 01/20/2022 9:30 am CLINICAL HISTORY: Abdominal trauma, blunt COMPARISON: No comparisons TECHNIQUE: CT of the abdomen and pelvis was performed without contrast. All CT scans are performed using dose optimization technique as appropriate and may include automated exposure control or mA/KV adjustment according to patient size. FINDINGS: Lower chest: No acute abnormality. Thickened distal esophagus suggesting gastroesophageal reflux disease. Liver: No acute abnormality or suspicious lesions. Biliary: No biliary ductal dilatation. Stomach: No significant focal abnormality. Duodenum: No significant focal abnormality. Pancreas: No significant abnormality. Spleen: No significant abnormality. Adrenal: No suspicious lesions. Kidney/ureter: No hydronephrosis. No renal calculi. Retroperitoneum: No retroperitoneal adenopathy. Vascular: No aneurysm. Atherosclerosis. Bowel: No significant focal abnormality. Peritoneum: No ascites or free air. Small periumbilical hernia. The anterior wall of the colon just b mayte enters the hernia sac but there are no complicating features or evidence of incarceration. Bladder: Grossly unremarkable. Reproductive: No adnexal masses. Bones: Rib fractures as noted on the same-day chest CT. Mild degenerative changes are present in the lumbar spine. No compression fractures. 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 Other: n/a IMPRESSION: No acute intra-abdominal or pelvic finding. No evidence of significant trauma to the abd omen or pelvis. Reference same-day chest CT for known rib fractures and a small hemothorax.
--- NOTE | 2022-01-20 10:28 | ER ---
Nurse's Notes [facility] Name: Irina Pardo Age: 66 yrs Sex: Female : 1955 Arrival Date: 01/20/2022 Time: 07:13 Bed 8 Private MD: Diagnosis: Traumatic hemothorax, initial encounter;Multiple fractures of ribs, right side;COPD/ Chronic obstructive pulmonary disease, unspecified Presentation: 01/20 07:18 Chief complaint: EMS states: 66YO WF S/P ROLL OUT OF BED. NO APPARENT TRAUMA. bp Coronavirus screen: At this time, the client does not indicate any symptoms associated with coronavirus-19. Ebola Screen: No symptoms or risks identified at this time. Initial Sepsis Screen: Does the patient meet any 2 criteria? No. Patient's initial sepsis screen is negative. Does the patient have a suspected source of infection? No. Patient's initial sepsis screen is negative. Risk Assessment: Do you want to hurt yourself or someone else? Patient reports no desire to harm self or others. Onset of symptoms was January 20, 2022 at 06:00. Care prior to arrival: Medication(s) given: 50 MCG FENTANYL, 4 MG ZOFRAN IV initiated. 20 GA, in the left forearm, Oxygen administered. via nasal cannula. 07:18 Method Of Arrival: EMS: [facility] bp 07:18 Acuity: FRANK 3 bp Triage Assessment: 07:20 General: Appears in no apparent distress. uncomfortable, Behavior is cooperative, bp appropriate for age, anxious. Pain: Complains of pain in back. EENT: No deficits noted. Neuro: No deficits noted. Cardiovascular: No deficits noted. Respiratory: Airway is patent Respiratory effort is even, unlabored. GI: No signs and/or symptoms were reported involving the gastrointestinal system. : No signs and/or symptoms were reported regarding the genitourinary system. Derm: No deficits noted. Musculoskeletal: No deficits noted. Injury Description: NONE NOTED. Historical: - Allergies: 07:20 Iodine; bp 07:20 SHELLFISH; bp - Home Meds: 07:20 Albuterol Inhl [Active]; aripiprazole oral [Active]; atorvastatin oral [Active]; bp clopidogrel oral [Active]; duloxetine oral [Active]; levothyroxine oral [Active]; - PMHx: 07:20 COPD; CVA; High Cholesterol; bp - Immunization history:: Adult Immunizations up to date. - Social history:: Smoking status: unknown. Screenin:20 Abuse screen: Denies threats or abuse. Denies injuries from another. Nutritional bp screening: No deficits noted. Tuberculosis screening: No symptoms or risk factors identified. Fall Risk Fall in past 12 months (25 points). Secondary diagnosis (15 points) CVA, IV access (20 points). Ambulatory Aid- None/Bed Rest/Nurse Assist (0 pts). Gait- Normal/Bed Rest/Wheelchair (0 pts) Mental Status- Oriented to own ability (0 pts). Total Thomas Fall Scale indicates High Risk Score (45 or more points). Fall prevention measures have been instituted. Side Rails Up X 2 Placed Close to Nursing Station Frequent Obs/Assessments Occuring As available patient and family educated on Fall Prevention Program and Strategies. Assessment: 07:20 General: SEE TRIAGE NOTE. bp 08:55 Reassessment: CT CHEST ABNORMAL, MD NOTIFIED. bp 10:25 Reassessment: No changes from previously documented assessment. Patient and/or family bp updated on plan of care and expected duration. Pain level reassessed. SURG C/S PENDING. 12:41 Reassessment: AQUILES AT B/S. bp 14:30 Reassessment: No changes from previously documented assessment. Patient and/or family bp updated on plan of care and expected duration. Pain level reassessed. 17:21 Reassessment: ADMIT COMPLETE. PT ADAIR. bp Vital Signs: 07:18 BP 121 / 70; Pulse 83; Resp 16; Temp 97.5; Pulse Ox 97% on 3 lpm NC; bp 08:54 BP 138 / 90; Pulse 93; Resp 24; Pulse Ox 98% on 3 lpm NC; bp 10:25 BP 110 / 78; Pulse 89; Resp 22; Pulse Ox 95% ; bp 11:30 BP 118 / 76; Pulse 86; Resp 16; Pulse Ox 98% ; bp 12:30 BP 110 / 76; Pulse 98; Resp 16; Pulse Ox 99% ; bp ED Course: 07:13 Patient arrived in ED. ds1 07:18 Wilver Sahu, RN is Primary Nurse. bp 07:20 Triage completed. bp 07:20 Arm band placed on. bp 07:20 Patient has correct armband on for positive identification. Bed in low position. Call bp light in reach. Side rails up X2. 07:20 Maintain EMS IV. Dressing intact. Good blood return noted. Site clean \T\ dry. Gauge \T\ bp site: 20 GA LEFT FA. 07:34 Cherelle Gomez MD is Attending Physician. sp3 08:23 CT Head Brain wo Cont In Process Unspecified. EDMS 08:23 CT Chest Wo Con In Process Unspecified. EDMS 09:28 CT C Spine In Process Unspecified. EDMS 09:32 CT Abd/Pelvis - Without Contrast In Process Unspecified. EDMS 10:27 iRc Ramsey MD is Hospitalizing Provider. sp3 17:18 No provider procedures requiring assistance completed. Patient admitted, IV remains in bp place. Administered Medications: 08:54 Drug: Dilaudid (HYDROmorphone) 0.5 mg Route: IVP; Site: left forearm; bp 12:15 Follow up: Response: Pain is decreased bp 08:54 Drug: Zofran (Ondansetron) 4 mg Route: IVP; Site: left forearm; bp 12:15 Follow up: Response: No adverse reaction bp 12:00 Drug: Dilaudid (HYDROmorphone) 0.5 mg Route: IVP; Site: left forearm; bp 12:15 Follow up: Response: Pain is decreased bp 15:13 Drug: Dilaudid (HYDROmorphone) 0.5 mg Route: IVP; Site: left forearm; bp 17:23 Follow up: Response: No adverse reaction bp Outcome: 10:27 Decision to Hospitalize by Provider. sp3 17:18 Admitted to Med/surg accompanied by tech, via stretcher, with chart, Report called to bp ZANA RN 17:18 Condition: stable 17:18 Instructed on the need for admit. 17:25 Patient left the ED. bp Signatures: Dispatcher [employer] [facility] Cristy Mcintosh ds1 Wilver Sahu RN RN bp Cherelle Gomez MD MD sp3 Corrections: (The following items were deleted from the chart) 07:22 07:20 Allergies: No Known Allergies; bp bp
--- NOTE | 2022-01-20 10:28 | EDPHYS ---
Physician Documentation [facility] Name: Irina Pardo Age: 66 yrs Sex: Female : 1955 Arrival Date: 01/20/2022 Time: 07:13 Bed 8 Private MD: ED Physician Cherelle Gomez HPI: 01/20 07:53 This 66 yrs old Female presents to ER via EMS with complaints of RIB PAIN. sp3 07:53 66-year-old female with multiple medical problems including severe COPD presents with sp3 approximate 24 inch fall from bed injuring the right side of her ribs and right parietal area of her head. Patient denies headache at this time but does state that she has mild rib pain on the right side. She has shortness of breath at baseline. She denies any abdominal pain, back pain, numbness or tingling, syncope, loss of consciousness, or any other symptoms at this time.. Historical: - Allergies: 07:20 Iodine; bp 07:20 SHELLFISH; bp - Home Meds: 07:20 Albuterol Inhl [Active]; aripiprazole oral [Active]; atorvastatin oral [Active]; bp clopidogrel oral [Active]; duloxetine oral [Active]; levothyroxine oral [Active]; - PMHx: 07:20 COPD; CVA; High Cholesterol; bp - Immunization history:: Adult Immunizations up to date. - Social history:: Smoking status: unknown. ROS: 07:54 Constitutional: Negative for fever, chills, and weight loss, Eyes: Negative for injury, sp3 pain, redness, and discharge, ENT: Negative for injury, pain, and discharge, Cardiovascular: Negative for chest pain, palpitations, and edema, Abdomen/GI: Negative for abdominal pain, nausea, vomiting, diarrhea, and constipation, Back: Negative for injury and pain, MS/Extremity: Negative for injury and deformity, Skin: Negative for injury, rash, and discoloration, Neuro: Negative for headache, weakness, numbness, tingling, and seizure, Psych: Negative for depression, anxiety, suicide ideation, homicidal ideation, and hallucinations, Allergy/Immunology: Negative for hives, rash, and allergies, Endocrine: Negative for neck swelling, polydipsia, polyuria, polyphagia, and marked weight changes, Hematologic/Lymphatic: Negative for swollen nodes, abnormal bleeding, and unusual bruising. 07:54 All other systems are negative. Exam: 07:55 Constitutional: This is a well developed, well nourished patient who is awake, alert, sp3 and in no acute distress. Head/Face: Normocephalic, atraumatic. Eyes: Pupils equal round and reactive to light, extra-ocular motions intact. Lids and lashes normal. Conjunctiva and sclera are non-icteric and not injected. Cornea within normal limits. Periorbital areas with no swelling, redness, or edema. ENT: Nares patent. No nasal discharge, no septal abnormalities noted. External auditory canals are clear. Oropharynx with no redness, swelling, or masses, exudates, or evidence of obstruction, uvula midline. Mucous membranes moist. Neck: Trachea midline, no thyromegaly or masses palpated, and no cervical lymphadenopathy. Supple, full range of motion without nuchal rigidity, or vertebral point tenderness. No Meningismus. Cardiovascular: Regular rate and rhythm with a normal S1 and S2. No gallops, murmurs, or rubs. Normal PMI, no JVD. No pulse deficits. Abdomen/GI: Soft, non-tender, with normal bowel sounds. No distension or tympany. No guarding or rebound. No evidence of tenderness throughout. Skin: Warm, dry with normal turgor. Normal color with no rashes, no lesions, and no evidence of cellulitis. 07:55 Chest/axilla: Patient has pain to palpation on the right lower ribs. He also has rhonchi bilaterally which are likely at baseline. . 07:55 Neuro: Patient has residual neuro deficits from a prior stroke along the entire right side including a hemiparesis. Patient has no pain to scalp palpation and mental status is normal.. Vital Signs: 07:18 BP 121 / 70; Pulse 83; Resp 16; Temp 97.5; Pulse Ox 97% on 3 lpm NC; bp 08:54 BP 138 / 90; Pulse 93; Resp 24; Pulse Ox 98% on 3 lpm NC; bp 10:25 BP 110 / 78; Pulse 89; Resp 22; Pulse Ox 95% ; bp 11:30 BP 118 / 76; Pulse 86; Resp 16; Pulse Ox 98% ; bp 12:30 BP 110 / 76; Pulse 98; Resp 16; Pulse Ox 99% ; bp MDM: 07:45 Patient medically screened. sp3 07:56 Data reviewed: vital signs, nurses notes. ED course: 66-year-old female with trauma to sp3 the chest and head. Will obtain noncontrast CTs of both and likely discharge if negative. I am not highly suspicious for acute injury or fracture at this time.. 08:53 ED course: CT chest demonstrates multiple rib fractures and small hemothorax. Also sp3 compression fractures are noted. We will add on CT scan of the C-spine and abdomen/pelvis noncontrast due to iodine allergy. Laboratory values also added along with more pain medication. Patient will be admitted for observation and pain control.. 10:25 ED course: CT scans of the C-spine and abdomen/pelvis are negative. Labs reviewed and sp3 demonstrate a hemoglobin of 9.3 however I do not believe it is trending down. Vital signs remained stable including heart rate. I discussed with Dr. Ramsey our general surgeon on-call who has graciously excepted this patient on his service for pain control and observation.. 01/20 08:52 Order name: CBC with Diff; Complete Time: 10:21 sp3 01/20 08:52 Order name: CMP; Complete Time: 10:21 sp3 01/20 08:52 Order name: Lipase; Complete Time: 10:21 sp3 01/20 08:52 Order name: Urine Microscopic Only 3 01/20 08:52 Order name: PT-INR; Complete Time: 10:21 sp3 01/20 11:24 Order name: COVID-19 SARS RT PCR (Document "Date of Onset" if Symptomatic) [email or web address] 01/20 07:47 Order name: CT Head Brain wo Cont; Complete Time: 08:44 sp3 01/20 07:47 Order name: CT Chest Wo Con; Complete Time: 08:44 sp3 01/20 08:52 Order name: CT Abd/Pelvis - Without Contrast; Complete Time: 10:21 sp3 01/20 08:52 Order name: CT C Spine; Complete Time: 10:21 sp3 01/20 14:14 Order name: CBC with Automated Diff EDMS 01/20 14:14 Order name: CBC with Automated Diff EDMS 01/20 14:14 Order name: Comprehensive Metabolic Panel EDMS 01/20 14:14 Order name: Comprehensive Metabolic Panel EDMS 01/20 08:52 Order name: IV Saline Lock; Complete Time: 08:54 sp3 01/20 08:52 Order name: Labs collected and sent; Complete Time: 08:54 sp3 01/20 14:14 Order name: Physical Therapy Consult [facility] 01/20 14:14 Order name: Respiratory Therapy Consult [facility] 01/20 14:14 Order name: Heart Healthy EDMS Administered Medications: 08:54 Drug: Dilaudid (HYDROmorphone) 0.5 mg Route: IVP; Site: left forearm; bp 12:15 Follow up: Response: Pain is decreased bp 08:54 Drug: Zofran (Ondansetron) 4 mg Route: IVP; Site: left forearm; bp 12:15 Follow up: Response: No adverse reaction bp 12:00 Drug: Dilaudid (HYDROmorphone) 0.5 mg Route: IVP; Site: left forearm; bp 12:15 Follow up: Response: Pain is decreased bp 15:13 Drug: Dilaudid (HYDROmorphone) 0.5 mg Route: IVP; Site: left forearm; bp 17:23 Follow up: Response: No adverse reaction bp Disposition Summary: 01/20/22 10:27 Hospitalization Ordered Hospitalization Status: Observation sp3 Provider: Ric Ramsey sp3 Location: Telemetry/[facility] (observation) sp3 Condition: Stable sp3 Problem: new sp3 Symptoms: are unchanged sp3 Bed/Room Type: Standard sp3 Room Assignment: [facility](01/20/22 16:12) [email or web address] Diagnosis - Traumatic hemothorax, initial encounter sp3 - Multiple fractures of ribs, right side sp3 - COPD/ Chronic obstructive pulmonary disease, unspecified sp3 Forms: - Medication Reconciliation Form sp3 - SBAR form sp3 Signatures: Dispatcher [employer] [facility] Wilver Sahu RN RN bp Jackson, Kandis kj1 Cherelle Gomez MD MD sp3 Corrections: (The following items were deleted from the chart) 07:22 07:20 Allergies: No Known Allergies; bp bp 16:12 10:27 sp3 kj1
[2022-01-20] MEDS: INSULIN -REGULAR HUMAN 50 UNIT/0.5 ML ML SQ SCH ×2 (16:30→21:00)
--- NOTE | 2022-01-20 16:48 | P.CNS ---
Date of Consult: 01/20/22 Reason for Consult: Medical management Requesting Physician: Ric Ramsey Chief Complaint: Fall History of Present Illness: 66-year-old woman with multiple medical problems including COPD was brought to the emergency department because she fell from her bed. Imaging done in the ED demonstrated multiple right sided rib fractures and a small right hemothorax, no pneumothorax. Patient admitted to surgery-Dr. Ramsey's service. Hospitalist service consulted to assist with management of her medical problems. Allergies No Known Allergies Allergy (Unverified 09/01/21 14:40) Home Medications: Unobtainable 09/06/21 - Past Medical/Surgical History -: COPD -: stroke -: Unable to obtain - Social History Smoking Status: Unknown if ever smoked Place of Residence: Home Review of Systems is unable to be obtained Physical Examination General: Mild distress, Confused HEENT: Atraumatic, PERRLA, Mucous membr. moist/pink, Sclerae nonicteric Neck: Supple, JVD not distended Respiratory: Diminished, Expiratory wheezes (Bilateral) Cardiovascular: No edema, Regular rate/rhythm, Normal S1 S2 Gastrointestinal: Normal bowel sounds, Soft and benign, Non-distended, No tenderness Musculoskeletal: No swelling, No tenderness Integumentary: No rashes, No cyanosis Neurological: Other (Right-sided weakness, contracted right upper extremity) Lymphatics: No axilla or inguinal lymphadenopathy Laboratory Data (last 24 hrs) 01/20/22 08:55: PT 11.3, INR 1.03 01/20/22 08:55: Sodium 138, Potassium 3.6, BUN 13, Creatinine 0.87, Glucose 107 H, Total Bilirubin 0.4, AST 15, ALT 20, Alkaline Phosphatase 83, Lipase 89 01/20/22 08:55: WBC 11.1 H D, Hgb 9.3 L, Hct 29.3 L, Plt Count 332 - Problems (1) Fall Current Visit: Yes Status: Acute (2) Multiple rib fractures Current Visit: Yes Status: Acute (3) History of CVA (cerebrovascular accident) Current Visit: Yes Status: Acute (4) COPD exacerbation Current Visit: No Status: Acute Conclusions/Impression: Start bronchodilators Schedule IV steroids. No need for antibiotics for now. Pain management-IV and oral opioids. Reconcile and continue home medications. IV fluid, monitor for hypotension. General surgery is following and managing chest trauma and hemothorax.
[2022-01-20] MEDS: ALBUTEROL 2.5 MG/3 ML NEB SOL NEB PRN ×2 (16:50→22:00)
[2022-01-20] MEDS ORDERED: ALBUTEROL 2.5 MG/3 ML NEB SOL ONE (16:52)
[2022-01-20] MEDS: MORPHINE 2 MG/ML SYR IV PRN ×2 (16:58→21:53)
[2022-01-20] MEDS ORDERED: MORPHINE 2 MG/ML SYR ONE (17:00)
[2022-01-20] MEDS: METHYLPREDNISOLONE 40 MG INJ IV SCH (17:40)
[2022-01-20] MEDS: D5.45NS W/KCL 20MEQ 1,000 ML IV SCH (17:40)
[2022-01-20 17:43] VITALS: BMI 24.7
[2022-01-20] MEDS: IPRATROPIUM BROM 0.5MG/2.5ML NEB SCH ×2 (19:30→22:00)
[2022-01-20] MEDS ORDERED: LEVALBUTEROL 1.25 MG/3 ML NEB NEB ONE (22:29)
[2022-01-20] MEDS ORDERED: MAGNESIUM SULFATE 1 gm IVPB 1 GM/100 ML BAG IV ONE (22:29)
[2022-01-21] MEDS: METHYLPREDNISOLONE 40 MG INJ IV SCH ×3 (00:16→17:04)
[2022-01-21] MEDS: IPRATROPIUM BROM 0.5MG/2.5ML NEB SCH ×4 (01:15→19:45)
--- NOTE | 2022-01-21 02:18 | CON ---
Date of Consultation: 01/20/2022 Brief History Of Present Illness: The patient is a 66-year-old female with a history of se charly COPD and a stroke/CVA with right-sided paralysis, who presents after falling out of bed earlier this morning. She rolled out from approximately a 2 feet height bed onto her right side and experien davida severe pain in her chest wall. She also struck the back of her head, but she denies headache, LO C, or any other associated complaints related to her head or neck. She only complains of some shortn ess of breath at baseline and she only has significant pain in the rib area at this point. Past Medical History: Significant for COPD, CVA with right-sided hemiparesis, high cholesterol. Allergies: SHE IS ALLERGIC TO SHELLFISH AND IODINE. Home Medications: Include albuterol, aripiprazole, atorvastatin, Plavix, duloxetine, levothyroxine. Social History: She has a positive tobacco history. Review of Systems: Ten-point review of systems other than HPI, denies. Physical Examination: Vital Signs: At the time of examination, her blood pressure was 110/78, pulse 89, respiratory rate 2 2, SpO2 95% on 3 L nasal cannula. General: She is awake and alert. She has very slow mentation and difficulty with conversation. She answers questions appropriately, but there is significant delay in answering the questions, I am unc ertain if this is her baseline or not. She follows commands, gives me thumbs up and okay signs when asked on her left upper extremity. Thumbs-up, thumbs-down are also appropriately answered and when v erbal questions are given she does answer them eventually. HEENT: She is otherwise normocephalic. There are no obvious traumatic injuries on palpation of the scalp. There is no malocclusion of her jaw. There is no facial pain. No step-offs on her face or i ndication of facial fracture on palpation. There is no bruising of her face as well. No discharge o n TMs bilaterally. Neck: Midline and supple without JVD. No tenderness to the posterior cervical spine area. Chest: She has significant discomfort when palpation of the right chest wall, particularly in the po sterior rib area. She does have a contracture of the right upper extremity in the flexed position. The pain is predominantly posterior on her chest wall and the lower rib area. There is some mild bru ising to this area. The remainder of her chest examination shows decreased breath sounds slightly ri ght greater than left. Cardiovascular: Regular rate and rhythm. Abdomen: Soft, nontender, nondistended. No rebound. No guarding. No focal peritonitis. Her pelvi s is stable. Extremities: There is mild bruising bilateral lower extremities. No hematomas and no tenderness. S he has hemiparesis on the right side of her body, but the left lower extremity is able to be moved wi th a slow movement. Her left upper extremity, she gives gestures as described above. SKIN: Otherwise dry and warm. Laboratory Data: Revealed a white blood cell count of 11.1, hemoglobin 9.3, hematocrit of 29.3, plat elet count was 332, neutrophils are 76%. Her sodium is 138, potassium 3.6, chloride 106, carbon diox vick 26, BUN 13, creatinine 0.87, glucose is 107, total bilirubin 0.4, AST 15, ALT 20, alkaline phosph atase is 83, lipase is 89. Her COVID test was negative. She had imaging performed, which included a chest CT officially read as right-sided rib fractures including the 8th and 9th posterior ribs, whic h are displaced by full shaft within our segmental small right-sided hemothorax. No significant pneu mothorax. Acute T5 compression fracture with less than 20% loss of height and no bony retropulsion. I have inspected this CT myself and I concur with the above findings, there is a small hemothorax pr edominantly in the region of the rib fractures on the lower lung field on the right. She additionall y had a head CT performed, which was officially read as no acute intracranial abnormality sequelae of remote infarct is noted. She had an abdomen and pelvis CT as well officially read as no acute intra abdominal or pelvic findings. No evidence of significant trauma to the abdomen and pelvis, same day CT for rib fractures and small hemothorax noted. She had a cervical C-spine CT as well, officially r ead as no fracture or traumatic malalignment of the cervical spine. Assessment And Plan: This is a 66-year-old female, who comes in after a fall with traumatic right-si ded posterior rib fractures, pulmonary contusions, and a small hemothorax. 1.IV fluid hydration. 2.Antibiotic coverage. 3.Pulmonary toilet and respiratory therapy. 4.Medical consultation. I have spoken with Dr. George regarding management of her medical issues. He is consulted to see, the patient agrees to do so. 5.We will perform serial exams of the patient and incentive spirometry and when her pain is under go od control and her pulmonary status is back to baseline, we will likely plan for disposition at that time. I have explained risks, benefits, and alternatives to the above stated plan. The patient agre es to proceed as indicated. JULIANO/NELSON Voice ID: [id number] Report ID: [id number]
[2022-01-21] MEDS: MORPHINE 2 MG/ML SYR IV PRN ×3 (03:52→15:36)
[2022-01-21] MEDS: ALBUTEROL 2.5 MG/3 ML NEB SOL NEB PRN ×3 (03:55→15:02)
[2022-01-21 05:57] LABS: Absolute Lymphocytes (CBC) 0.2 K/uL (0.7-4.9); Hematocrit 27.6 % (36.0-45.0); Lymphocytes % 4.3 % (15.3-44.8); RBC Red Blood Cell Count 3.37 M/uL (3.86-4.86)
[2022-01-21 06:07] LABS: Albumin 3.2 g/dL (3.4-5.0); Bilirubin Total 0.3 mg/dL (0.2-1.0); Potassium 4.7 mmol/L (3.5-5.1); Protein, Total 6.4 g/dL (6.4-8.2)
[2022-01-21] MEDS: HYDROCODONE/APAP 7.5/325 MG TAB PO PRN ×4 (06:27→22:13)
[2022-01-21] MEDS: INSULIN -REGULAR HUMAN 50 UNIT/0.5 ML ML SQ SCH ×4 (07:30→22:15)
[2022-01-21 08:16] LABS: Blood Morphology Comment NOT SEEN (NOT SEEN); Platelet Estimate ADEQ
--- NOTE | 2022-01-21 11:20 | P.DS ---
Admission Date: 01/20/22 Discharge Date: 01/21/22 Disposition: ROUTINE DISCHARGE Discharge Condition: GOOD Reason for Admission: Fall Consultations: Hospitalist - Dr. George Procedures: none - Problems (1) Multiple rib fractures Current Visit: Yes Status: Acute Qualifiers: Encounter type: initial encounter Fracture type: closed Laterality: right Qualified Code(s): S22.41XA - Multiple fractures of ribs, right side, initial encounter for closed fracture Brief History of Present Illness: Patient brought to ER after fall from bed onto RIGHT ribs with multiple posterior rib fractures Hospital Course: Patient admitted with multiple right rib fractures, she was feeling better with pain control in hospital, using incentive spirometry, pain controlled, she is on oxygen @ home by her report, she states she feels generally back to her baseline except for the pain in the back, but it is well controlled she states. She denies SOB currently. Vital Signs/Physical Exam: Temp Pulse Resp BP Pulse Ox 98.2 F 117 H 18 144/89 H 94 01/21/22 04:00 01/21/22 04:00 01/21/22 10:07 01/21/22 04:00 01/21/22 10:07 General: Alert, In no apparent distress, Cooperative HEENT: Atraumatic, Mucous membr. moist/pink Respiratory: Clear to auscultation bilaterally, Other (RIGHT sided posterior chest wall tenderness remains but improved.) Cardiovascular: Regular rate/rhythm Integumentary: Other (multiple lower extremity bruises are unchanged) Neurological: Other (slow mentation, answers questions appropriately) Laboratory Data at Discharge: WBC 4.9 K/uL (4.3-10.9) D 01/21/22 05:32 Hgb 9.1 g/dL (12.0-15.0) L 01/21/22 05:32 Hct 27.6 % (36.0-45.0) L 01/21/22 05:32 Plt Count 308 K/uL (152-406) 01/21/22 05:32 PT 11.3 SECONDS (9.5-12.5) 01/20/22 08:55 INR 1.03 01/20/22 08:55 Sodium 136 mmol/L (136-145) 01/21/22 05:32 Potassium 4.7 mmol/L (3.5-5.1) 01/21/22 05:32 BUN 14 mg/dL (7-18) 01/21/22 05:32 Creatinine 0.74 mg/dL (0.55-1.3) 01/21/22 05:32 Glucose 162 mg/dL (74-106) H 01/21/22 05:32 Total Bilirubin 0.3 mg/dL (0.2-1.0) 01/21/22 05:32 AST 17 U/L (15-37) 01/21/22 05:32 ALT 19 U/L (12-78) 01/21/22 05:32 Alkaline Phosphatase 81 U/L (45-117) 01/21/22 05:32 Lipase 89 U/L (73-393) 01/20/22 08:55 Home Medications: Albuterol Neb [Proventil 0.083% Neb Soln] 2.5 mg NEB Q4H PRN amp 01/21/22 Hydrocodone 7.5/APAP 325 [[place] 7.5/325 mg*] 1 tab PO Q4H PRN tab 01/21/22 Insulin -Regular Human [Novolin -R*] See Protocol SQ ACHS ml 01/21/22 Ipratropium Neb [Atrovent*] 0.5 mg NEB [id number] amp 01/21/22 Methylpred Na Suc [Solu-Medrol*] 40 mg IV Q8HR vial 01/21/22 Pharmacy Consult 1 ea XX DAILYPRN PRN each 01/21/22 Diet: AHA Activity: Fall precautions Followup: Ric Ramsey MD [ACTIVE - CAN ADMIT] - Unknown,U [Primary Care Provider] -
[2022-01-21] MEDS: D5.45NS W/KCL 20MEQ 1,000 ML IV SCH (12:28)
--- NOTE | 2022-01-21 14:02 | P.PN ---
Subjective Date of Service: 01/21/22 Chief Complaint: Fall Patient is interactive today. She is not wheezing. She appears confused. Physical Examination - Vital Signs Temperature: 97.5 F Blood Pressure: 130/70 Pulse: 113 Respirations: 18 Pulse Ox (%): 94 Assessment And Plan - Current Problems (Diagnosis) (1) Fall Current Visit: Yes Status: Acute (2) Multiple rib fractures Current Visit: Yes Status: Acute Qualifiers: Encounter type: initial encounter Fracture type: closed Laterality: right Qualified Code(s): S22.41XA - Multiple fractures of ribs, right side, initial encounter for closed fracture (3) History of CVA (cerebrovascular accident) Current Visit: Yes Status: Acute (4) COPD exacerbation Current Visit: No Status: Acute - Plan Physical Examination General: Confused, not in acute distress HEENT: Mucous membr. moist, Sclerae nonicteric Neck: JVD not distended Respiratory: Diminished, no wheezes. Cardiovascular: No edema, Regular rate/rhythm, Normal S1 S2 Gastrointestinal: Normal bowel sounds, Soft and benign, Non-distended, No tenderness Musculoskeletal: No swelling, No tenderness Integumentary: No rashes, No cyanosis Neurological: Right-sided weakness, contracted right upper extremity. Plan: Continue bronchodilators and IV steroid No need for antibiotics for now. Pain management-IV and oral opioids. Continue home medications Discontinue IV fluid. Stable for discharge per General surgery. Patient's son is requesting for placement stating he cannot take care of her at home. Social service consulted to assist with placement.
[2022-01-22] MEDS: METHYLPREDNISOLONE 40 MG INJ IV SCH ×2 (01:08→08:30)
[2022-01-22] MEDS: ALBUTEROL 2.5 MG/3 ML NEB SOL NEB PRN ×2 (01:40→09:19)
[2022-01-22] MEDS: IPRATROPIUM BROM 0.5MG/2.5ML NEB SCH ×4 (01:40→20:00)
[2022-01-22] MEDS: HYDROCODONE/APAP 7.5/325 MG TAB PO PRN ×3 (05:35→19:58)
[2022-01-22 05:58] LABS: Absolute Lymphocytes (CBC) 0.3 K/uL (0.7-4.9); Hematocrit 27.6 % (36.0-45.0); Lymphocytes % 3.8 % (15.3-44.8); RBC Red Blood Cell Count 3.38 M/uL (3.86-4.86)
[2022-01-22 06:01] LABS: BUN Blood Urea Nitrogen 12 mg/dL (7-18); Bicarbonate 27 mmol/L (21-32); Glomerular Filtration Rate > 90 mL/min (=/>90); Glucose Level 123 mg/dL (74-106); Potassium 4.3 mmol/L (3.5-5.1); Sodium Level 135 mmol/L (136-145)
[2022-01-22] MEDS: INSULIN -REGULAR HUMAN 50 UNIT/0.5 ML ML SQ SCH ×4 (07:30→20:01)
[2022-01-22] MEDS: MORPHINE 2 MG/ML SYR IV PRN ×2 (08:30→15:32)
[2022-01-22 08:56] LABS: Phosphorus 3.1 mg/dL (2.5-4.9)
--- NOTE | 2022-01-22 12:38 | P.PN ---
Subjective Date of Service: 01/22/22 Chief Complaint: Fall Patient is looking much better today. She has no other complaint except pain with deep breathing. Vitals are stable. Physical Examination - Vital Signs Temperature: 98.2 F Blood Pressure: 119/85 Pulse: 94 Respirations: 16 Pulse Ox (%): 98 - Physical Exam General: Alert, In no apparent distress HEENT: Mucous membr. moist/pink Neck: JVD not distended Respiratory: Clear to auscultation bilaterally, Normal air movement Cardiovascular: No edema, Regular rate/rhythm, Normal S1 S2 Gastrointestinal: Soft and benign, Non-distended Musculoskeletal: No swelling Neurological: Other (Contracted right upper extremity.) Assessment And Plan - Current Problems (Diagnosis) (1) Fall Current Visit: Yes Status: Acute (2) Multiple rib fractures Current Visit: Yes Status: Acute Qualifiers: Encounter type: initial encounter Fracture type: closed Laterality: right Qualified Code(s): S22.41XA - Multiple fractures of ribs, right side, initial encounter for closed fracture (3) History of CVA (cerebrovascular accident) Current Visit: Yes Status: Acute (4) COPD exacerbation Current Visit: No Status: Acute - Plan Physical Examination General: Confused, not in acute distress HEENT: Mucous membr. moist, Sclerae nonicteric Neck: JVD not distended Respiratory: no wheezes. Cardiovascular: No edema, Regular rate/rhythm, Normal S1 S2 Gastrointestinal: Normal bowel sounds, Soft and benign, Non-distended, No tenderness Musculoskeletal: No swelling. Integumentary: No rashes, No cyanosis Neurological: Right-sided weakness, contracted right upper extremity. Plan: Continue bronchodilators. Transition from IV steroid to oral prednisone No need for antibiotics for now. Pain management-IV and oral opioids. Continue home medications IV fluid discontinued. Stable for discharge per General surgery. Patient's son is requesting for placement stating he cannot take care of her at home. Social service consulted to assist with placement.
--- NOTE | 2022-01-22 12:43 | P.PN ---
Subjective Date of Service: 01/22/22 Chief Complaint: Fall Physical Examination - Vital Signs Temperature: 98.2 F Blood Pressure: 119/85 Pulse: 94 Respirations: 16 Pulse Ox (%): 98 Assessment And Plan - Current Problems (Diagnosis) (1) Multiple rib fractures Current Visit: Yes Status: Acute Qualifiers: Qualified Code(s): S22.41XA - Multiple fractures of ribs, right side, initial encounter for closed fracture
[2022-01-22] MEDS: predniSONE 20 MG TAB PO SCH (19:58)
[2022-01-22] MEDS: DOCUSATE NA 100 MG CAP PO SCH (19:58)
[2022-01-23] MEDS: IPRATROPIUM BROM 0.5MG/2.5ML NEB SCH ×4 (01:45→20:00)
[2022-01-23 07:03] LABS: ALT/SGPT 21 U/L (12-78); AST/SGOT 15 U/L (15-37); Albumin 3.4 g/dL (3.4-5.0); Alkaline Phosphatase 73 U/L (45-117); BUN Blood Urea Nitrogen 14 mg/dL (7-18); Bicarbonate 28 mmol/L (21-32); Bilirubin Total 0.3 mg/dL (0.2-1.0); Glomerular Filtration Rate > 90 mL/min (=/>90); Glucose Level 108 mg/dL (74-106); Magnesium 2.2 mg/dL (1.8-2.4); Phosphorus 3.2 mg/dL (2.5-4.9); Potassium 4.3 mmol/L (3.5-5.1); Protein, Total 6.6 g/dL (6.4-8.2); Sodium Level 136 mmol/L (136-145)
[2022-01-23] MEDS: INSULIN -REGULAR HUMAN 50 UNIT/0.5 ML ML SQ SCH ×4 (07:30→21:00)
[2022-01-23] MEDS: HYDROCODONE/APAP 7.5/325 MG TAB PO PRN ×3 (10:21→23:11)
[2022-01-23] MEDS: DOCUSATE NA 100 MG CAP PO SCH ×2 (10:21→21:54)
[2022-01-23] MEDS: predniSONE 20 MG TAB PO SCH ×2 (10:22→21:54)
--- NOTE | 2022-01-23 13:56 | P.PN ---
Subjective Date of Service: 01/23/22 Chief Complaint: Fall Patient has no new complaints. She reports occasional pain with deep breathing. Seems to be in a good mood. Vitals are stable. Physical Examination - Vital Signs Temperature: 98.0 F Blood Pressure: 140/95 Pulse: 100 Respirations: 16 Pulse Ox (%): 93 - Physical Exam General: In no apparent distress, Confused (Mildly confused), Other (Awake) HEENT: Mucous membr. moist/pink Neck: Supple, JVD not distended Respiratory: Clear to auscultation bilaterally, Normal air movement Cardiovascular: No edema, Regular rate/rhythm, Normal S1 S2 Gastrointestinal: Soft and benign, Non-distended Musculoskeletal: No swelling Integumentary: No rashes Neurological: Cranial nerves 3-12 intact, Other (Contracted right upper extremity) Assessment And Plan - Current Problems (Diagnosis) (1) Fall Current Visit: Yes Status: Acute (2) Multiple rib fractures Current Visit: Yes Status: Acute Qualifiers: Encounter type: initial encounter Fracture type: closed Laterality: right Qualified Code(s): S22.41XA - Multiple fractures of ribs, right side, initial encounter for closed fracture (3) History of CVA (cerebrovascular accident) Current Visit: Yes Status: Acute (4) COPD exacerbation Current Visit: No Status: Acute - Plan Physical Examination General: Confused, not in acute distress HEENT: Mucous membr. moist, Sclerae nonicteric Neck: JVD not distended Respiratory: no wheezes. Cardiovascular: No edema, Regular rate/rhythm, Normal S1 S2 Gastrointestinal: Normal bowel sounds, Soft and benign, Non-distended, No tenderness Musculoskeletal: No swelling. Integumentary: No rashes, No cyanosis Neurological: Right-sided weakness, contracted right upper extremity. Plan: COPD is currently stable. Continue bronchodilators. Continue oral prednisone No need for antibiotics for now. Pain management-IV and oral opioids. Continue home medications IV fluid discontinued. Stable for discharge per General surgery. Patient's son is requesting for rehab stating he cannot take care of her at home due to increased weakness. Social service consulted to assist with SNF placement.
[2022-01-23] MEDS: MORPHINE 2 MG/ML SYR IV PRN (15:56)
[2022-01-23 22:01] VITALS: O2SAT 98
[2022-01-24] MEDS: IPRATROPIUM BROM 0.5MG/2.5ML NEB SCH ×3 (02:10→14:00)
--- NOTE | 2022-01-24 06:51 | P.PN ---
Date of Service: 01/24/22
[2022-01-24] MEDS: INSULIN -REGULAR HUMAN 50 UNIT/0.5 ML ML SQ SCH ×3 (07:30→16:30)
[2022-01-24] MEDS: DOCUSATE NA 100 MG CAP PO SCH (09:42)
[2022-01-24] MEDS: predniSONE 20 MG TAB PO SCH (09:42)
[2022-01-24] MEDS: MORPHINE 2 MG/ML SYR IV PRN (09:46)
[2022-01-24] MEDS ORDERED: ALBUTEROL 2.5 MG/3 ML NEB SOL NEB PRN (14:00)
[2022-01-24 17:04] VITALS: BP 133/94; TEMP 97.4
--- NOTE | 2022-01-24 17:19 | P.DS ---
Admission Date: 01/21/22 Discharge Date: 01/24/22 Disposition: TRANSFER TO SNF - REHAB Discharge Condition: GOOD Reason for Admission: Fall, rib fractures Consultations: General Surgery - Dr. Ramsey Procedures: Problem List multiple right sided rib fractures s/p fall h/o CVA acute on chronic COPD exacerbation. Brief History of Present Illness: 66yo F, PMH: COPD, CVA with R-sided paralysis, presented to ED after fall from bed. She reported significant right sided rib pain. Workup in ED found multiple rib fractures on right side with small right hemothorax, no pneumothorax. Patient admitted to general surgery for trauma. Hospitalist service was consulted. Hospital Course: Patient was found to have right sided rib fractures including 8th and 9th posterior ribs, displaced by full shaft width and are segmental. Small right sided hemothorax, and acute T5 compression fracture with < 20% loss of height and NO bony rertropulsion. Hospitalization was prolonged secondary to adequate pain control and patient's son expressing concern for inability to adequately care for her at home in this state. Rib pain at times prevented patient from working with PT and prevented deep breathing. She was also noted to be wheezing, and felt to be in acute COPD exacerbation, treated with bronchodilators and steroids. She was otherwise stable on 1-2 L NC for comfort. General Surgery, Dr. Ramsey was consulted and evaluated the patient. No further recommendations. Patient was deemed stable for discharge to SNF for ongoing rehab and pain control. Recommend follow up with PCP within 1 week of discharge home Repeat Chest xray in 1-2 weeks Vital Signs/Physical Exam: Temp Pulse Resp BP Pulse Ox 97.4 F 114 H 20 133/94 H 99 01/24/22 16:00 01/24/22 16:00 01/24/22 16:00 01/24/22 16:00 01/24/22 16:00 Physical Examination General: NAD, alert, oriented HEENT: Mucous membr. moist, Sclerae nonicteric Respiratory: non-labored respirations, shallow respirations, minimal b/l wheeze Cardiovascular: No edema, Regular rate/rhythm, Normal S1 S2 Gastrointestinal: soft, nontender, nondistended Neurological: Right-sided weakness, contracted right upper extremity. Laboratory Data at Discharge: WBC 8.1 K/uL (4.3-10.9) D 01/22/22 05:27 Hgb 9.0 g/dL (12.0-15.0) L 01/22/22 05:27 Hct 27.6 % (36.0-45.0) L 01/22/22 05:27 Plt Count 340 K/uL (152-406) 01/22/22 05:27 PT 11.3 SECONDS (9.5-12.5) 01/20/22 08:55 INR 1.03 01/20/22 08:55 Sodium 136 mmol/L (136-145) 01/23/22 06:10 Potassium 4.3 mmol/L (3.5-5.1) 01/23/22 06:10 BUN 14 mg/dL (7-18) 01/23/22 06:10 Creatinine 0.65 mg/dL (0.55-1.3) 01/23/22 06:10 Glucose 108 mg/dL (74-106) H 01/23/22 06:10 Phosphorus 3.2 mg/dL (2.5-4.9) 01/23/22 06:10 Magnesium 2.2 mg/dL (1.8-2.4) 01/23/22 06:10 Total Bilirubin 0.3 mg/dL (0.2-1.0) 01/23/22 06:10 AST 15 U/L (15-37) 01/23/22 06:10 ALT 21 U/L (12-78) 01/23/22 06:10 Alkaline Phosphatase 73 U/L (45-117) 01/23/22 06:10 Lipase 89 U/L (73-393) 01/20/22 08:55 Home Medications: Albuterol Neb [Proventil 0.083% Neb Soln] 2.5 mg NEB Q4H PRN amp 01/21/22 Hydrocodone 7.5/APAP 325 [[place] 7.5/325 mg*] 1 tab PO Q4H PRN tab 01/21/22 Insulin -Regular Human [Novolin -R*] See Protocol SQ ACHS ml 01/21/22 Ipratropium Neb [Atrovent*] 0.5 mg NEB [id number] amp 01/21/22 Pharmacy Consult 1 ea XX DAILYPRN PRN each 01/21/22 Docusate [Colace Cap*] 100 mg PO BID cap 01/24/22 predniSONE [Prednisone*] 20 mg PO BID 3 Days #6 tab 01/24/22 New Medications: predniSONE [Prednisone*] 20 mg PO BID 3 Days #6 tab Diet: AHA Activity: Fall precautions Followup: Ric Ramsey MD [ACTIVE - CAN ADMIT] - Unknown,U [Primary Care Provider] - Time spent managing pt's care (in minutes): 45
== END 2022-01-24 17:43 | DRG 183 ==
LOC: ER 07:13 → ERHOLD 14:29 → 2ND 17:09 → OBSVTOIN 01-21 18:37
PROVIDERS: ADMIT Surgery; ATTEND Surgery
DX: S22.41XA Multiple fractures of ribs, right side, initial encounter for closed fracture (principal); S27.1XXA Traumatic hemothorax, initial encounter; S22.059A Unspecified fracture of T5-T6 vertebra, initial encounter for closed fracture; J44.1 Chronic obstructive pulmonary disease with (acute) exacerbation; I69.351 Hemiplegia and hemiparesis following cerebral infarction affecting right dominant side; W06.XXXA Fall from bed, initial encounter; Y92.009 Unspecified place in unspecified non-institutional (private) residence as the place of occurrence of the external cause; Z20.822 Contact with and (suspected) exposure to COVID-19
CPT/HCPCS: 36415; 70450; 71250; 72125; 74176; 80048; 80053; 82947; 83690; 83735; 84100; 85025; 85610; 92610; 94010; 94640; 94760; 96374; 96375; 97110; 97116; 97161; 97530; 99285; G0378; J1170; J2270; J2920; J3475; J7512; U0003

== ENCOUNTER 2022-06-12 09:07 | Emergency (ER) | payer OTHER ==
--- OUTSIDE RECORDS SUMMARY | 2022-06-12 09:15 | XMS REPORT | Continuity of Care Document ---
:1955 Author Organization [facility] t Address [address] [place] [address] Care Team Providers Name Role Phone MAUREEN MERCADO Primary Care Physician Unavailable MAUREEN MERCADO Attending Clinician Unavailable Maureen Mercado MD Attending Clinician [phone] Doctor Unassigned, [place] Attending Clinician Unavailable NEREIDA RÍOS Attending Clinician Unavailable Nida MONCADA, Sarai Coronado Attending Clinician Milton Shaffer MD Attending Clinician Dutch Belle MD Attending Clinician Krish MONCADA, Chelo Attending Clinician [phone] Nereida Ríos MD Attending Clinician ALLAHHAM, MAHMOUD Admitting Clinician Unavailable Payers Payer Name Policy Type Policy Number Effective Date Expiration Date S jose MEDICARE PART A [id number] 1998 \T\ B 00:00:00 MEDICAID [facility] [id number] 2020 00:00:00 MEDICARE A B [id number] 1998 00:00:00 MEDICAID [facility] [id number] 2011 00:00:00 Problems Condition Condition Condition Status Onset Resolution Last Treating Co mments Source Name Details Category Date Date Treatment Clinician Date COPD COPD Disease Active 2020-[address] [facility] exacerb[facility] exacerbati 2- Jaqui kes on on 00:00: Medical 00 Center Bacteremia Bacteremia Disease Active 2020-[address] [facility] SOB SOB Disease Active 2019-09 [facility] (shortness (shortness 0-31 it y of of breath) [place] breath[place] [facility] Stroke Stroke Disease Active 2018-09 [facility] 2 ity of 00:00: [place] [facility] Hypothyroi Hypothyroi Disease Active Overview : [facility] dism dism 01-06 [facility] it[facility] of (acquired) (acquired) 00:00: g of this [place] note Medical might be Branch different from the original. 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 Osteoporos Osteoporos Disease Active U nivers is is 4-22 ity of 00:00: [place] [facility] CVA CVA Disease Active Univers (cerebral (cerebral 01-06 ity of vascular vascular 00:00: [place] accident) accident) 00 [facility] Branch Joint Joint Disease Active Univers contractur contractur 4-22 it y of e of hand, e of hand, 00:00: [place] right right 00 Medical Branch Tobacco Tobacco Disease Active Univers abuse abuse - ity of 00:00: [place] 00 Medical Branch Marijuana Marijuana Disease Active Uni vers abuse abuse 01-06 ity of 00:00: [place] 00 Medical Branch COPD COPD Disease Active Univers exacerbati exacerbati 4-22 it y of on on 00:00: [place] 00 Medical Branch Allergies, Adverse Reactions, Alerts Allergy Allergy Status Severity Reaction(s) Onset Inactive Treating Comm ents Source Name Type Date Date Clinician Shellfis Propensi Active Swelling 2019- Univ ers h ty to 09-20 ity of Derived adverse 00:00: [place] reaction 00 Medical s Branch SHELLFIS DRUG Active SOB 2019-09 Univers H INGREDI 09-20 ity of DERIVED 00:00: [place] 00 Medical Branch Shellfis Drug Active Shortness Of 2019-[address] [facility] Allergy Breath, 09-20 [facility] Derived Swelling 00:00: Medical 00 Center SHELLFIS Allergy Active High Sob 2019- [facility] 1-04 [facility] DERIVED 00:00: Medical 00 [place] Codeine Drug Active Swelling 2017-[address] [facility] Allergy -03 [facility] 00:00: Medical 00 [place] Codeine Propensi Active Swelling 2017-0 throat Unive rs ty to 03 ity of adverse 00:00: [place] reaction 00 Medical s Branch CODEINE DRUG Active High Swelling 2017-0 Univers INGREDI 4-03 ity of 00:00: [place] 00 Medical Branch CODEINE Allergy Active High Swelling 2017-[address] [facility] 4-03 [facility] 00:00: Medical 00 [place] Iodine Drug Active Swelling 2014-0 (shell [facility] Allergy 4-22 fish) [facility] 00:00: throat Medical 00 [facility] Iodine Propensi Active Swelling 2014-0 (shell Univer s ty to 4-22 fish) ity of adverse 00:00: throat [place] reaction 00 [facility] IODINE DRUG Active High Swelling 2014-0 Univers INGREDI 4-22 ity of 00:00: [place] 00 [facility] IODINE Allergy Active High Swelling 2014-[address] [facility] 4-22 [facility] 00:00: Medical 00 [place] Social History Social Habit Start Date Stop Date Quantity Comments Source History SDOH [facility] Alcohol Std Drinks Medica l Center History SDOH [facility] Alcohol Binge Medical [facility] History SDOH [facility] Alcohol Comment Medical C enter History SDOH 2021-09-08 2021-09-[address] [facility] Alcohol Frequency 00:00:00 00:00:00 Medical [place] Tobacco use and 2021-09-08 2021-09-[address] Jaqui kes exposure 00:00:00 00:00:00 [facility] Alcohol intake 2021-09-08 2021-09-08 Lifetime GUERO Robbins es 00:00:00 00:00:00 non-drinker Medical Natty yimi (finding) Cigarettes smoked 2021-05-03 2021-05-03 Univers ity of current (pack per 00:00:00 00:00:00 ) - Reported Branch Cigarette 2021-05-03 2021-05-03 University of pack-years 00:00:00 00:00:00 [facility] Tobacco Comment 2021-05-03 2021-05-03 Used to smoke 2 Univ ersity of 00:00:00 00:00:00 packs per day- [facility] zia quit aug 2020 [place] History of tobacco 2020-06-20 Cigarette Smoker University of use 00:00:00 [facility] Sex Assigned At 1955 [address] [facility] [address] [facility] kes 00:00:00 00:00:00 [facility] Smoking Status Start Date Stop Date Source Former smoker 2021-09-08 00:00:00 2021-09-08 00:00:00 [facility] Medications Ordered Filled Start Stop Current Ordering Indication Dosage Frequency Signature Comments Components Source Medication Medication Date Date Medication? Clinician (SIG) Name Name DULoxetine Yes 30mg Take 30 mg U nivers 30 mg 8-15 by mouth ity of capsule 12:48: in the [place] [address] morning. Medical Take with Branch 60mg capsule DULoxetine Yes 60mg Take 60 mg U nivers 60 mg 8-15 by mouth ity of capsule 12:48: in the [place] [address] morning. Medical Take with Branch 30mg capsule tiotropium Yes [id number] 18ug Inhale 1 Univers 18 mcg 8-15 capsule in ity of inhalation 00:00: the [place] morning. Medical Branch albuterol Yes [id number] 2{puff} Inhale 2 Univers 90 8-15 Puffs ity of mcg/actuati 00:00: every 4 [place] as on inhaler 00 (four) Medical hours as Branch needed for Wheezing or Shortness of Breath. albuterol Yes [id number] 2.5mg Inhale 3 Univers 2.5 mg /3 4-27 mL every 4 ity of mL (0.083 00:00: (four) [place] %) 00 hours. May Medical nebulizer also Branch solution nebulize one extra every 6 hours. albuterol 2-0 Yes [id number] 2.5mg Inhale 3 Univers 2.5 mg /3 4-27 mL every 4 ity of mL (0.083 00:00: (four) [place] %) 00 hours. May Medical nebulizer also Branch solution nebulize one extra every 6 hours. albuterol 2021-0 Yes [id number] 2.5mg Inhale 3 Univers 2.5 mg /3 4-27 mL every 4 ity of mL (0.083 00:00: (four) [place] %) 00 hours. May Medical nebulizer also Branch solution nebulize one extra every 6 hours. albuterol 2021-0 Yes [id number] 2.5mg Inhale 3 Univers 2.5 mg /3 4-27 mL every 4 ity of mL (0.083 00:00: (four) [place] %) 00 hours. May Medical nebulizer also Branch solution nebulize one extra every 6 hours. albuterol 2021-0 Yes [id number] 2.5mg Inhale 3 Univers 2.5 mg /3 4-27 mL every 4 ity of mL (0.083 00:00: (four) [place] %) 00 hours. May Medical nebulizer also Branch solution nebulize one extra every 6 hours. polyethylen 2020-09 17g Take [address] [facility] e glycol 09-17 by mouth [facility] (GLYCOLAX) 00:00: 23:59 daily as Me dical 17 gram 00 :00 needed Center packet (Constipat ion) for up to 3 days. polyethylen 2020-09 No 17g Take [address] [facility] e glycol 09-17 by mouth [facility] (GLYCOLAX) 00:00: 23:59 daily as Me dical 17 gram 00 :00 needed Center packet (Constipat ion) for up to 3 days. polyethylen 2020-09 No 17g Take [address] e glycol 09-17 by mouth [facility] (GLYCOLAX) 00:00: 23:59 daily as Me dical 17 gram 00 :00 needed Center packet (Constipat ion) for up to 3 days. vancomycin- 2020-09- No 1250mg Q24H Inject [address] water 2-29 12-31 mLs (1,250 [facility] inject, 00:00: 23:59 mg total) Medi zia PEG, (VANCO 00 :00 intravenou Ce nter READY) 1.25 sly daily gram/250 mL for 2 PgBk days. vancomycin- 2020-09- No 1250mg Q24H Inject [address] water 2-29 12-31 mLs (1,250 [facility] inject, 00:00: 23:59 mg total) Medi zia PEG, (VANCO 00 :00 intravenou Ce nter READY) 1.25 sly daily gram/250 mL for 2 PgBk days. vancomycin- 2020-09- No 1250mg Q24H Inject [address] water 2-29 12-31 mLs (1,250 [facility] inject, 00:00: 23:59 mg total) Medi zia PEG, (VANCO 00 :00 intravenou Ce nter READY) 1.25 sly daily gram/250 mL for 2 PgBk days. clopidogreL 2020-09 Yes 1{tbl} QD Take [address] (PLAVIX) 75 2-09 tablet by Sebastian es mg tablet 00:00: mouth Medical 00 daily. [place] levothyroxi 2020-09 Yes 1{tbl} QD Take [address] ne 2-09 tablet by [facility] (SYNTHROID, 00:00: mouth Medic al LEVOTHROID) 00 every Center 25 MCG morning. tablet clopidogreL 2020-09 Yes 1{tbl} QD Take [address] (PLAVIX) 75 2-09 tablet by [place] es mg tablet 00:00: mouth Medical 00 daily. [place] levothyroxi 2020-09 Yes 1{tbl} QD Take [address] ne 2-09 tablet by [facility] (SYNTHROID, 00:00: mouth Medic al LEVOTHROID) 00 every Center 25 MCG morning. tablet clopidogreL 2020-09 Yes 1{tbl} QD Take [address] (PLAVIX) 75 2-09 tablet by [place] es mg tablet 00:00: mouth Medical 00 daily. [place] levothyroxi 2020-09 Yes 1{tbl} QD Take [address] ne 2-09 tablet by [facility] (SYNTHROID, 00:00: mouth Medic al LEVOTHROID) 00 every Center 25 MCG morning. tablet levothyroxi 2020-09 Yes [id number] 25ug Take 1 Univers ne 25 mcg 2-09 tablet by ity o f tablet 00:00: mouth [place] 00 every Medical morning. Branch clopidogreL 2020-09 Yes [id number] 75mg Take 1 Univers 75 mg 2-09 tablet by ity of tablet 00:00: mouth [place] 00 daily. Medical Branch levothyroxi 2020-09 Yes [id number] 25ug Take 1 Univers ne 25 mcg 2-09 tablet by ity o f tablet 00:00: mouth [place] 00 every Medical morning. Branch clopidogreL 2020-09 Yes [id number] 75mg Take 1 Univers 75 mg 2-09 tablet by ity of tablet 00:00: mouth [place] 00 daily. Medical Branch levothyroxi 2020-09 Yes [id number] 25ug Take 1 Univers ne 25 mcg 2-09 tablet by ity o f tablet 00:00: mouth [place] 00 every Medical morning. Branch clopidogreL 2020-09 Yes [id number] 75mg Take 1 Univers 75 mg 2-09 tablet by ity of tablet 00:00: mouth [place] 00 daily. Medical Branch levothyroxi 2020-09 Yes [id number] 25ug Take 1 Univers ne 25 mcg 2-09 tablet by ity o f tablet 00:00: mouth [place] 00 every Medical morning. Branch clopidogreL 2020-09 Yes [id number] 75mg Take 1 Univers 75 mg 2-09 tablet by ity of tablet 00:00: mouth [place] 00 daily. Medical Branch levothyroxi 2020-09 Yes [id number] 25ug Take 1 Univers ne 25 mcg 2-09 tablet by ity o f tablet 00:00: mouth [place] 00 every Medical morning. Branch clopidogreL 2020-09 Yes [id number] 75mg Take 1 Univers 75 mg 2-09 tablet by ity of tablet 00:00: mouth [place] 00 daily. Medical Branch predniSONE 2020-09 Yes [id number] 50mg Take 1 Univers 50 mg 2-07 tablet by ity of tablet 00:00: mouth [place] 00 daily. Medical Branch benzonatate 2020-09 Yes [id number] 200mg Take 1 Univers 200 mg 2-07 capsule by ity of capsule 00:00: mouth 3 [place] 00 (three) Medical times Branch daily as needed for Cough. albuterol 2020-09 Yes [id number] 2{puff} Inhale 2 Univers 90 2-07 Puffs ity of mcg/actuati 00:00: every 4 [place] as on inhaler 00 (four) Medical hours as Branch needed for Wheezing or Shortness of Breath. predniSONE 2020-09 Yes [id number] 50mg Take 1 Univers 50 mg 2-07 tablet by ity of tablet 00:00: mouth [place] 00 daily. Medical Branch benzonatate 2020-09 Yes [id number] 200mg Take 1 Univers 200 mg 2-07 capsule by ity of capsule 00:00: mouth 3 [place] 00 (three) Medical times Branch daily as needed for Cough. albuterol 2020-09 Yes [id number] 2{puff} Inhale 2 Univers 90 2-07 Puffs ity of mcg/actuati 00:00: every 4 [place] as on inhaler 00 (four) Medical hours as Branch needed for Wheezing or Shortness of Breath. predniSONE 2020-09 Yes [id number] 50mg Take 1 Univers 50 mg 2-07 tablet by ity of tablet 00:00: mouth [place] 00 daily. Medical Branch benzonatate 2020-09 Yes [id number] 200mg Take 1 Univers 200 mg 2-07 capsule by ity of capsule 00:00: mouth 3 [place] 00 (three) Medical times Branch daily as needed for Cough. albuterol 2020-09 Yes [id number] 2{puff} Inhale 2 Univers 90 2-07 Puffs ity of mcg/actuati 00:00: every 4 [place] as on inhaler 00 (four) Medical hours as Branch needed for Wheezing or Shortness of Breath. predniSONE 2020-09 Yes [id number] 50mg Take 1 Univers 50 mg 2-07 tablet by ity of tablet 00:00: mouth [place] 00 daily. Medical Branch benzonatate 2020-09 Yes [id number] 200mg Take 1 Univers 200 mg 2-07 capsule by ity of capsule 00:00: mouth 3 [place] 00 (three) Medical times Branch daily as needed for Cough. benzonatate 2020-09 Yes 200mg Take [address] (TESSALON) 2-07 mg by [facility] 200 MG 00:00: mouth 3 Medical capsule 00 (three) Center times daily as needed. predniSONE 2020-09 Yes 1{tbl} QD Take [address] [facility] (DELTASONE) 2-07 tablet by [place] es 50 MG 00:00: mouth Medical tablet 00 daily. [place] benzonatate 2020-09 Yes 200mg Take [address] (TESSALON) 2-07 mg by [facility] 200 MG 00:00: mouth 3 Medical capsule 00 (three) Center times daily as needed. predniSONE 2020-09 Yes 1{tbl} QD Take [address] [facility] (DELTASONE) 2-07 tablet by [place] es 50 MG 00:00: mouth Medical tablet 00 daily. [place] benzonatate 2020-09 Yes 200mg Take [address] (TESSALON) 2-07 mg by [facility] 200 MG 00:00: mouth 3 Medical capsule 00 (three) Center times daily as needed. predniSONE 2020-09 Yes 1{tbl} QD Take [address] (DELTASONE) 2-07 tablet by Sebastian es 50 MG 00:00: mouth Medical tablet 00 daily. [place] albuterol 2020-09 Yes [id number] 2{puff} Inhale 2 Univers 90 2-07 Puffs ity of mcg/actuati 00:00: every 4 [place] as on inhaler 00 (four) Medical hours as Branch needed for Wheezing or Shortness of Breath. albuterol 2020-09- No [id number] 2{puff} Inhale 2 Univers 90 2-07 08-15 Puffs ity of mcg/actuati 00:00: 00:00 every 4 [place] inhaler 00 :00 (four) Medical hours as Branch needed for Wheezing or Shortness of Breath. predniSONE 2020-09- No [id number] 50mg Take 1 Univers 50 mg 2-07 08-15 tablet by ity of tablet 00:00: 00:00 mouth [place] 00 :00 daily. Medical Branch benzonatate 2020-09- No [id number] 200mg Take 1 Univers 200 mg 2-07 08-15 capsule by ity of capsule 00:00: 00:00 mouth 3 [place] 00 :00 (three) Medical times Branch daily as needed for Cough. famotidine 2020-09 Yes [id number] 40mg Take 1 Univers 40 mg 1-16 tablet by ity of tablet 00:00: mouth [place] 00 daily. Medical Branch famotidine 2020-09 Yes [id number] 40mg Take 1 Univers 40 mg 1-16 tablet by ity of tablet 00:00: mouth [place] 00 daily. Medical Branch famotidine 2020-09 Yes [id number] 40mg Take 1 Univers 40 mg 1-16 tablet by ity of tablet 00:00: mouth [place] 00 daily. Medical Branch famotidine 2020-09 Yes [id number] 40mg Take 1 Univers 40 mg 1-16 tablet by ity of tablet 00:00: mouth [place] 00 daily. Medical Branch famotidine 2020-09 Yes [id number] 40mg Take 1 Univers 40 mg 1-16 tablet by ity of tablet 00:00: mouth [place] 00 daily. Medical Branch budesonide- 2020-09 Yes [id number] 2{puff} Inhale 2 Univers formoteroL 0-14 Puffs 2 ity of (SYMBICORT) 00:00: (two) [place] 160-4.5 00 times Medical mcg/actuati daily. Branch on inhaler albuterol 2020-09 Yes 2{puff} Inhale 2 U nivers (PROAIR 0-14 Puffs ity of HFA) 90 00:00: every 6 [place] mcg/actuati 00 (six) Medical on inhaler hours as Branc h needed for Wheezing or Shortness of Breath. budesonide- 2020-09 Yes [id number] 2{puff} Inhale 2 Univers formoteroL 0-14 Puffs 2 ity of (SYMBICORT) 00:00: (two) [place] 160-4.5 00 times Medical mcg/actuati daily. Branch on inhaler albuterol 2020-09 Yes 2{puff} Inhale 2 U nivers (PROAIR 0-14 Puffs ity of HFA) 90 00:00: every 6 [place] mcg/actuati 00 (six) Medical on inhaler hours as Branc h needed for Wheezing or Shortness of Breath. budesonide- 2020-09 Yes [id number] 2{puff} Inhale 2 Univers formoteroL 0-14 Puffs 2 ity of (SYMBICORT) 00:00: (two) [place] 160-4.5 00 times Medical mcg/actuati daily. Branch on inhaler albuterol 2020-09 Yes 2{puff} Inhale 2 U nivers (PROAIR 0-14 Puffs ity of HFA) 90 00:00: every 6 [place] mcg/actuati 00 (six) Medical on inhaler hours as Branc h needed for Wheezing or Shortness of Breath. budesonide- 2020-09 Yes [id number] 2{puff} Inhale 2 Univers formoteroL 0-14 Puffs [...] [facility] formoteroL 0-14 puffs by [facility] (SYMBICORT) 00:00: mouth via M edical 160-4.5 00 inhaler 2 Center mcg/actuati (two) on inhaler times daily. budesonide- 2020-09 Yes 2{puff} Q.5D Inhale [address] [facility] [address] formoteroL 0-14 puffs by [facility] (SYMBICORT) 00:00: mouth via M edical 160-4.5 00 inhaler 2 Center mcg/actuati (two) on inhaler times daily. budesonide- 2020-09 Yes 2{puff} Q.5D Inhale [address] formoteroL 0-14 puffs by [facility] (SYMBICORT) 00:00: mouth via M edical 160-4.5 00 inhaler 2 Center mcg/actuati (two) on inhaler times daily. budesonide- 2020-09- No [id number] 2{puff} Inhale 2 Univers formoteroL 0-14 08-15 Puffs 2 ity o f (SYMBICORT) 00:00: 00:00 (two[place] 160-4.5 00 :00 times Medical mcg/actuati daily. Branch on inhaler albuterol 2020-09- No 2{puff} Inhale 2 Univers (PROAIR 0-14 08-15 Puffs ity of HFA) 90 00:00: 00:00 every 6 [place] mcg/actuati 00 :00 (six) Medical on inhaler hours as Branc h needed for Wheezing or Shortness of Breath. amitriptyli Yes [id number] 150mg Take 3 Univers ne 50 mg 9-13 tablets by ity o f tablet 00:00: mouth at [place] [address] bedtime. Medical Branch amitriptyli Yes [id number] 150mg Take 3 Univers ne 50 mg 9-13 tablets by ity o f tablet 00:00: mouth at [place] [address] bedtime. Medical Branch amitriptyli Yes [id number] 150mg Take 3 Univers ne 50 mg 9-13 tablets by ity o f tablet 00:00: mouth at [place] [address] bedtime. Medical Branch amitriptyli Yes [id number] 150mg Take 3 Univers ne 50 mg 9-13 tablets by ity o f tablet 00:00: mouth at [place] [address] bedtime. Medical Branch amitriptyli Yes [id number] 150mg Take 3 Univers ne 50 mg 9-13 tablets by ity o f tablet 00:00: mouth at [place] [address] bedtime. [facility] Branch amitriptyli Yes 3{tbl} QD Take [address] [facility] (ELAVIL) 9-13 tablets by Jaqui kes 50 MG 00:00: mouth Medical tablet 00 nightly. [place] amitriptyli Yes 3{tbl} QD Take [address] ne (ELAVIL) 9-13 tablets by Jaqui kes 50 MG 00:00: mouth Medical tablet 00 nightly. [place] amitriptyli Yes 3{tbl} QD Take [address] ne (ELAVIL) 9-13 tablets by Jaqui kes 50 MG 00:00: mouth Medical tablet 00 nightly. [place] ARIPiprazol Yes 2mg Take 2 mg U nivers e 2 mg 8-26 by mouth ity of tablet 00:00: at [place] [address] bedtime. [facility] Branch ARIPiprazol Yes 2mg Take 2 mg U nivers e 2 mg 8-26 by mouth ity of tablet 00:00: at [place] [address] bedtime. Medical Branch ARIPiprazol 0 Yes 2mg Take 2 mg U nivers e 2 mg 8-26 by mouth ity of tablet 00:00: at [place] [address] bedtime. [facility] Branch ARIPiprazol 0 Yes 2mg Take 2 mg U nivers e 2 mg 8-26 by mouth ity of tablet 00:00: at [place] [address] bedtime. [facility] Branch ARIPiprazol 2020-0 Yes 2mg Take 2 mg U nivers e 2 mg 8-26 by mouth ity of tablet 00:00: at [place] [address] bedtime. [facility] ARIPiprazol 0 Yes 2mg QD Take [address] e (ABILIFY) 8-26 by mouth Luke s 2 MG tablet 00:00: nightly. Wy dicct 00 [place] ARIPiprazol Yes 2mg QD Take [address] e (ABILIFY) 8-26 by mouth Luke s 2 MG tablet 00:00: nightly. Wy dicct 00 [place] ARIPiprazol Yes 2mg QD Take [address] e (ABILIFY) 8-26 by mouth Luke s 2 MG tablet 00:00: nightly. Wy dical 00 [place] benzonatate Yes [id number] 100mg Take 1 Univers (TESSALON 1-27 capsule by ity of PERLES) 100 00:00: mouth 3 [place] as mg capsule 00 (three) Medica l times Branch daily. benzonatate Yes [id number] 100mg Take 1 Univers (TESSALON 1-27 capsule by ity of PERLES) 100 00:00: mouth 3 [place] as mg capsule 00 (three) Medica l times Branch daily. benzonatate Yes [id number] 100mg Take 1 Univers (TESSALON 1-27 capsule by ity of PERLES) 100 00:00: mouth 3 [place] as mg capsule 00 (three) Medica l times Branch daily. benzonatate Yes [id number] 100mg Take 1 Univers (TESSALON 1-27 capsule by ity of PERLES) 100 00:00: mouth 3 [place] as mg capsule 00 (three) Medica l times Branch daily. benzonatate 2021- No [id number] 100mg Take 1 Univers (TESSALON 1-27 08-15 capsule by ity of PERLES) 100 00:00: 00:00 mouth 3 [place] mg capsule 00 :00 (three) Medica l times Branch daily. atorvastati Yes [id number] 20mg Take 1 Univers n 20 mg 1-07 tablet by ity of tablet 00:00: mouth at [place] [address] bedtime. [facility] atorvastati Yes [id number] 20mg Take 1 Univers n 20 mg 1-07 tablet by ity of tablet 00:00: mouth at [place] 00 bedtime. [facility] atorvastati Yes [id number] 20mg Take 1 Univers n 20 mg 1-07 tablet by ity of tablet 00:00: mouth at [place] 00 bedtime. [facility] atorvastati Yes [id number] 20mg Take 1 Univers n 20 mg 1-07 tablet by ity of tablet 00:00: mouth at [place] [address] bedtime. [facility] atorvastati Yes [id number] 20mg Take 1 Univers n 20 mg 1-07 tablet by ity of tablet 00:00: mouth at [place] [address] bedtime. [facility] atorvastati Yes 20mg QD Take [address] (LIPITOR) 1-07 by mouth Luke s 20 MG 00:00: daily. Medical tablet 00 [place] atorvastati Yes 20mg QD Take [address] [facility] n (LIPITOR) 1-07 by mouth Luke s 20 MG 00:00: daily. Medical tablet 00 [place] atorvastati Yes 20mg QD Take [address] n (LIPITOR) 1-07 by mouth Luke s 20 MG 00:00: daily. Medical tablet 00 [place] ipratropium 2019-1 Yes [id number] .5mg Inhale 2.5 Univers 0.02 % 2-18 mL every 8 ity of nebulizer 00:00: (eight) [place] solution 00 hours as Medical needed for Branch Wheezing or Shortness of Breath. ipratropium 2020-1 Yes [id number] .5mg Inhale 2.5 Univers 0.02 % 2-18 mL every 8 ity of nebulizer 00:00: (eight) [place] solution 00 hours as Medical needed for Branch Wheezing or Shortness of Breath. ipratropium 2019- Yes [id number] .5mg Inhale 2.5 Univers 0.02 % 2-18 mL every 8 ity of nebulizer 00:00: (eight) [place] solution 00 hours as Medical needed for Branch Wheezing or Shortness of Breath. ipratropium 2019- Yes [id number] .5mg Inhale 2.5 Univers 0.02 % 2-18 mL every 8 ity of nebulizer 00:00: (eight) [place] solution 00 hours as Medical needed for Branch Wheezing or Shortness of Breath. ipratropium 2019- Yes [id number] .5mg Inhale 2.5 Univers 0.02 % 2-18 mL every 8 ity of nebulizer 00:00: (eight) [place] solution 00 hours as Medical needed for Branch Wheezing or Shortness of Breath. aspirin 81 2019-09 Yes [id number] 81mg Take 1 Univers mg chewable 1-11 tablet by ity of tablet 00:00: mouth [place] 00 daily. Medical Branch aspirin 81 2019-09 Yes [id number] 81mg Take 1 Univers mg chewable 1-11 tablet by ity of tablet 00:00: mouth [place] 00 daily. Medical Branch aspirin 81 2019-09 Yes [id number] 81mg Take 1 Univers mg chewable 1-11 tablet by ity of tablet 00:00: mouth [place] 00 daily. Medical Branch aspirin 81 2019-09 Yes [id number] 81mg Take 1 Univers mg chewable 1-11 tablet by ity of tablet 00:00: mouth [place] 00 daily. Medical Branch aspirin 81 2019-09- No [id number] 81mg Take 1 Univers mg chewable 1-11 08-15 tablet by it y of tablet 00:00: 00:00 mouth [place] 00 :00 daily. Medical Branch Immunizations Ordered Filled Immunization Date Status Comments [facility] e Immunization Name Name SARS-COV-2 COVID-19 2020-11-30 Completed Unive rsity of PFIZER VACCINE 00:00:00 [facility] SARS-COV-2 COVID-19 2020-11-30 Completed Unive rsity of PFIZER VACCINE 00:00:00 [facility] SARS-COV-2 COVID-19 2020-11-30 Completed Unive rsity of PFIZER VACCINE 00:00:00 [facility] SARS-COV-2 COVID-19 2020-11-30 Completed Unive rsity of PFIZER VACCINE 00:00:00 [facility] SARS-COV-2 COVID-19 2020-11-30 Completed Unive rsity of PFIZER VACCINE 00:00:00 [facility] SARS-COV-2 COVID-19 2020-11-09 Completed Unive rsity of PFIZER VACCINE 00:00:00 [facility] SARS-COV-2 COVID-19 2020-11-09 Completed Unive rsity of PFIZER VACCINE 00:00:00 [facility] SARS-COV-2 COVID-19 2020-11-09 Completed Unive rsity of PFIZER VACCINE 00:00:00 [facility] SARS-COV-2 COVID-19 2020-11-09 Completed Unive rsity of PFIZER VACCINE 00:00:00 [facility] SARS-COV-2 COVID-19 2020-11-09 Completed Unive rsity of PFIZER VACCINE 00:00:00 [facility] Influenza Virus 2020-08-19 Completed Universit y of Vaccine Quad .5 mL 00:00:00 [facility] 6+ MO Branch Influenza Virus [...] of Vaccine Quad IM 3+ 00:00:00 [facility] Pneumococcal 2018-06-18 Completed University o f Polysaccharide, 00:00:00 [facility] ical PPSV23 (PNEUMOVAX) Branch Influenza Virus 2018-06-18 Completed Universit y of Vaccine Quad IM 3+ 00:00:00 [facility] Pneumococcal 2018-06-18 Completed University o f Polysaccharide, 00:00:00 [facility] ical PPSV23 (PNEUMOVAX) Branch Influenza Virus 2018-06-18 Completed Universit y of Vaccine Quad IM 3+ 00:00:00 [facility] Pneumococcal 2018-06-18 Completed University o f Polysaccharide, 00:00:00 [facility] ical PPSV23 (PNEUMOVAX) Branch Influenza Virus 2018-06-18 Completed Universit y of Vaccine Quad IM 3+ 00:00:00 [facility] Pneumococcal 2018-06-18 Completed University o f Polysaccharide, 00:00:00 [place] [facility] PPSV23 (PNEUMOVAX) Branch Influenza Virus 2018-06-18 Completed Universit y of Vaccine Quad IM 3+ 00:00:00 [facility] Pneumococcal 2018-06-18 Completed University o f Polysaccharide, 00:00:00 [place] [facility] PPSV23 (PNEUMOVAX) Branch Influenza Virus 2017-10-17 Completed Universit y of Vaccine Quad ID 00:00:00 [facility] ical [address] [facility] Influenza Virus 2017-10-17 Completed Universit y of Vaccine Quad ID 00:00:00 [facility] ical 1862 [facility] Influenza Virus 2017-10-17 Completed Universit y of Vaccine Quad ID 00:00:00 [place] [facility] 1862 [facility] Influenza Virus 2017-10-17 Completed Universit y of Vaccine Quad ID 00:00:00 [place] [facility] 1862 [facility] Influenza Virus 2017-10-17 Completed Universit y of Vaccine Quad ID 00:00:00 [facility] ical 1862 [facility] Branch Td 2017-02-25 Completed University of 00:00:00 [facility] Td 2017-02-25 Completed University of 00:00:00 [facility] Td 2017-02-25 Completed University of 00:00:00 [facility] Td 2017-02-25 Completed University of 00:00:00 [facility] Td 2017-02-25 Completed University of 00:00:00 [facility] Vital Signs Vital Name Observation Time Observation Value Comments Source HEIGHT 2021-09-08 09:00:00 155 cm WEIGHT 2021-09-08 04:00:00 66.316 kg HEIGHT 2021-09-08 09:00:00 155 cm WEIGHT 2021-09-08 04:00:00 66.316 kg HEIGHT 2021-09-08 09:00:00 155 cm WEIGHT 2021-09-08 04:00:00 66.316 kg Systolic blood 2021-09-15 11:22:00 83 mm[Hg] [facility] Diastolic blood 2021-09-15 11:22:00 59 mm[Hg] [facility] Heart rate 2021-09-15 11:22:00 112 /min [facility] Body temperature 2021-09-15 11:22:00 35.56 Suzy [facility] Respiratory rate 2021-09-15 11:22:00 20 /min [facility] Oxygen saturation in 2021-09-15 11:22:00 94 /min [facility] Arterial blood by Medical Ce nter Pulse oximetry Body height 2021-09-08 09:00:00 155 cm [facility] Body weight 2021-09-08 04:00:00 66.316 kg [facility] BMI 2021-09-08 04:00:00 27.60 kg/m2 [facility] Procedures Procedure Date / Time Performing Clinician Source Performed HOME HEALTH - OTHER 2022-04-14 05:01:00 [facility] 2022-04-09 05:01:00 Doctor Unassigned, [facility] [place] [facility] HOME HEALTH - OTHER 2022-03-23 05:01:00 Doctor Sharda Johnson [facility] [place] [facility] [place] [facility] 2022-02-24 05:01:00 Doctor Maegansswayne, [facility] [place] [facility] SARS-COV2/RT-PCR ([facility] & 2021-09-15 04:41:00 Milton Shaffer [facility] REF LABS) Center SARS-COV2/RT-PCR ([facility] & 2021-09-14 16:34:00 Nereida Ríos I [facility] REF LABS) [place] CBC W/PLT COUNT & AUTO 2021-09-14 05:32:00 [facility] DIFFERENTIAL [facility] CBC W/PLT COUNT & AUTO 2021-09-14 05:32:00 [facility] VANCOMYCIN LEVEL, TROUGH 2021-09-13 13:54:00 [facility] CBC W/PLT COUNT & AUTO 2021-09-13 13:54:00 [facility] DIFFERENTIAL [facility] CBC W/PLT COUNT & AUTO 2021-09-13 13:54:00 [facility] ECG 12-LEAD 2021-09-12 17:48:43 Unknown, Hl7 Doctor [facility] ECG 12-LEAD 2021-09-12 17:48:43 Unknown, Hl7 Doctor [facility] ECG 12-LEAD 2021-09-12 17:48:43 Unknown, Hl7 Doctor [facility] VANCOMYCIN LEVEL, TROUGH 2021-09-12 13:07:00 [facility] CBC W/PLT COUNT & AUTO 2021-09-12 13:07[facility] BASIC METABOLIC PANEL (7) 2021-09-12 13:07:00 Krish I [facility] CBC W/PLT COUNT & AUTO 2021-09-12 13:07:00 [facility] DIFFERENTIAL [facility] LACTIC ACID, VENOUS 2021-09-12 13:06:00 [facility] BASIC METABOLIC PANEL (7) 2021-09-11 13:29:00 Krish [facility] I [facility] MAGNESIUM 2021-09-11 13:29[facility] TROUGH 2021-09-10 11:38:00 [facility] CALCIUM 2021-09-10 05:55:00 [facility] CBC W/PLT COUNT & AUTO 2021-09-10 03:45:00 [place] I [facility] BASIC METABOLIC PANEL (7) 2021-09-10 03:45[facility]00 [facility], [facility]ON[facility]ED 2021-09-10 03:45:00 [place] [facility] PHOSPHORUS 2021-09-10 03:45:[facility] W[facility] & AUTO 2021-09-10 03:45:[address] [facility] MAGNESIUM 2021-09-10 03:45:[facility] 2021-09-10 03:45:00 [facility] VANCOMYCIN LEVEL, TROUGH 2021-09-09 19:17:00 [facility] CBC W/PLT COUNT & AUTO 2021-09-09 03:33:00 [place] I [facility] BASIC METABOLIC PANEL (7) 2021-09-09 03:33:00 [facility], [facility]ED 2021-09-09 03:33[facility] 2021-09-09 03:33[facility] W[facility] & AUTO 2021-09-09 03:33:00 [place] CH I [facility] MAGNESIUM 2021-09-09 03:33:00 ParDutch portillo [facility] TRANSESOPHAGEAL ECHO 2021-09-08 11:20:43 [facility] COLOR-FLOW MAPPING 2021-09-08 06:45:11 [facility] CONT WAVE PULSED DOPPLER 2021-09-08 06:45:11 [facility] BLOOD CULTURE 2021-09-08 00:29:00 [facility] COMPREHENSIVE METABOLIC 2021-09-08 00:28:00 [facility] MAGNESIUM 2021-09-08 00:28:00 [facility] C-REACTIVE PROTEIN 2021-09-08 00:28:00 [facility] LACTIC ACID, VENOUS 2021-09-08 00:28:00 [facility] BLOOD GAS, VENOUS 2021-09-08 00:28:00 [facility] CBC W/PLT COUNT & AUTO 2021-09-08 00:27:00 [facility] BLOOD CULTURE 2021-09-08 00:27:00 [facility] CBC W/PLT COUNT & AUTO 2021-09-08 00:27:00 [facility] Plan of Care Planned Activity Planned Date Details Comments Source Future Scheduled 2027-02-25 DTAP/TDAP/TD VACCINES [facility] Test 00:00:00 (2 - Td or Tdap) [code Medic al Center = DTAP/TDAP/TD VACCINES (2 - Td or Tdap)] Future Scheduled 2027-02-25 DTAP/TDAP/TD VACCINES I [facility] Test 00:00:00 (2 - Td or Tdap) [code Medic al Center = DTAP/TDAP/TD VACCINES (2 - Td or Tdap)] Future Scheduled 2027-02-25 DTAP/TDAP/TD [facility]ACCINES [facility] Test 00:00:00 (2 - Td or Tdap) [code Medic al Center = DTAP/TDAP/TD VACCINES (2 - Td or Tdap)] Future Scheduled 2023-06-[address] [facility] Test 00:00:00 0-64 YRS (2 of 2 - Medical C enter PPSV23) [code = PNEUMOCOCCAL VACCINE 0-64 YRS (2 of 2 - PPSV23)] Future Scheduled 2023-06-[address] [facility] Test 00:00:00 0-64 YRS (2 of 2 - Medical C enter PPSV23) [code = PNEUMOCOCCAL VACCINE 0-64 YRS (2 of 2 - PPSV23)] Future Scheduled 2022-05-18 INFLUENZA VACCINE (#1) [facility] Test 00:00:00 [code = INFLUENZA Medical Ce nter VACCINE (#1)] Future Scheduled 2021-09-[address] [facility] Test 00:00:00 (12+) [code = Medical Center DEPRESSION SCREENING (12+)] Future Scheduled 2021-09-[address] [facility] Test 00:00:00 (12+) [code = Medical Center DEPRESSION SCREENING (12+)] Future Scheduled 2021-09-[address] [facility] Test 00:00:00 (12+) [code = Medical Center DEPRESSION SCREENING (12+)] Future Scheduled 2021-06-02 COVID-19 VACCINE (3 - [facility] Test 00:00:00 Booster for Pfizer Medical C enter series) [code = COVID-19 VACCINE (3 - Booster for Pfizer series)] Future Scheduled 2021-06-02 COVID-19 VACCINE (3 - [facility] Test 00:00:00 Booster for Pfizer Medical C enter series) [code = COVID-19 VACCINE (3 - Booster for Pfizer series)] Future Scheduled 2021-05-18 INFLUENZA VACCINE (#1) [facility] Test 00:00:00 [code = INFLUENZA Medical Ce nter VACCINE (#1)] Future Scheduled 2021-05-18 INFLUENZA VACCINE (#1) [facility] Test 00:00:00 [code = INFLUENZA Medical Ce nter VACCINE (#1)] Future Scheduled 2021-05-02 COVID-19 VACCINE (3 - [facility] Test 00:00:00 Booster for Pfizer Medical C enter series) [code = COVID-19 VACCINE (3 - Booster for Pfizer series)] Future Scheduled 2019-06-[address] [facility] Test 00:00:00 0-64 YRS (2 - PCV) Medical C enter [code = PNEUMOCOCCAL VACCINE 0-64 YRS (2 - PCV)] Future Scheduled 2007 SHINGLES VACCINES ([address] [facility] Test 00:00:00 2) [code = [facility] VACCINES (1 of 2)] Future Scheduled 2007 SHINGLES VACCINES ([address] [facility] Test 00:00:00 2) [facility])] Future Scheduled 2007 SHINGLES VACCINES ([address] [facility] Test 00:00:00 2) [code = [facility] VACCINES (1 of 2)] Future Scheduled 2002 Lipid panel (procedure) [facility] Test 00:00:00 [code = 50750110] Medical Ce nter Future Scheduled 2002 Lipid panel (procedure) [facility] Test 00:00:00 [code = 38180540] Medical Ce nter Future Scheduled 2002 Lipid panel (procedure) [facility] Test 00:00:00 [code = 75132572] Medical Ce nter Future Scheduled 1999-03-[address] [facility] Test 00:00:00 WELLNESS (YEAR 2 or Medical Center FIRST YEAR if no IPPE) [code = MEDICARE ANNUAL WELLNESS (YEAR 2 or FIRST YEAR if no IPPE)] Future Scheduled 1999-03-[address] [facility] Test 00:00:00 WELLNESS (YEAR 2 or Medical Center FIRST YEAR if no IPPE) [code = MEDICARE ANNUAL WELLNESS (YEAR 2 or FIRST YEAR if no IPPE)] Future Scheduled 1999-03-[address] [facility] Test 00:00:00 WELLNESS (YEAR 2 or Medical Center FIRST YEAR if no IPPE) [code = MEDICARE ANNUAL WELLNESS (YEAR 2 or FIRST YEAR if no IPPE)] Future Scheduled 1978 Screening for malignant [facility] Test 00:00:00 neoplasm of cervix Medical C enter (procedure) [code = 321489123] Future Scheduled 1978 Screening for malignant [facility] Test 00:00:00 neoplasm of cervix Medical C enter (procedure) [code = 253799204] Future Scheduled 1978 Screening for malignant [facility] Test 00:00:00 neoplasm of cervix Medical C enter (procedure) [code = 612610648] Future Scheduled 1975 HEPATITIS C SCREENING [facility] 00:00:00 [code = HEPATITIS C Medical Center SCREENING] Future Scheduled 1975 HEPATITIS C [facility]CRE[facility]ING [facility] 00:00:00 [code = HEPATITIS C Medical Center SCREENING] Future Scheduled 1975 HEPATITIS C [facility]CRE[facility]ING [facility] 00:00:00 [code = HEPATITIS C Medical Center SCREENING] Future Scheduled 1957 Screening for malignant [facility] Test 00:00:00 neoplasm of breast Medical C enter (procedure) [code = 737317387] Future Scheduled 1957 Screening for malignant [facility] Test 00:00:00 neoplasm of colon Medical Ce nter (procedure) [code = 839320731] Future Scheduled 1957 Screening for malignant [facility] Test 00:00:00 neoplasm of breast Medical C enter (procedure) [code = 336679661] Future Scheduled 1957 Screening for malignant [facility] Test 00:00:00 neoplasm of colon Medical Ce nter (procedure) [code = 772234027] Future Scheduled 1957 Screening for malignant [facility] Test 00:00:00 neoplasm of breast Medical C enter (procedure) [code = 529821623] Future Scheduled 1957 CT Colonography (combo) [facility] Test 00:00:00 [code = CT Colonography [facility] (combo)] Future Scheduled 1957 Screening for malignant [facility] Test 00:00:00 neoplasm of colon Medical Ce nter (procedure) [code = 931888284] Future Scheduled 1957 Screening for malignant [facility] Test 00:00:00 neoplasm of colon Medical Ce nter (procedure) [code = 318176142] Future Scheduled 1957 Screening for malignant [facility] Test 00:00:00 neoplasm of colon Medical Ce nter (procedure) [code = 159771873] Future Scheduled 1957 Screening for malignant [facility] Test 00:00:00 neoplasm of colon Medical Ce nter (procedure) [code = 195340753] Future Scheduled 1957 Sigmoidoscopy [code = [facility] Test 00:00:00 Sigmoidoscopy] Medical Cente r Encounters Start End Encounter Admission Attending Care Care Encounter Source Date/Time Date/Time Type Type Clinicians Facility Department ID 2022-11-03 2022-11-03 [facility] [id number] Univers 10:20:00 10:20:00 MAUREEN [id number] [facility] 2022-11-03 2022-11-03 Outpatient R [facility] [id number] Univers 10:20:00 10:20:00 MAUREEN [facility] 2022-05-01 2022-05-01 Outpatient R [facility] [id number] Univers 10:20:00 13:39:46 MAUREEN [facility] 2022-05-01 2022-05-01 [facility] [id number] Univers 10:20:00 13:39:46 ne Visit Maureen DOWLING [id number] ity [id number] [phone] Wy dic[address] 2022-04-14 2022-04-14 Orders Doctor SERGIO [id number] Univers 00:00:00 00:00:00 Only Unassigned, LALITA [id number] [facility]y of [place] [facility] [id number] Darci as [phone] [address] 2022-03-23 2022-03-23 Orders Doctor SERGIO [id number].[id number] Univers 00:00:00 00:00:00 Only Unassigned, LALITA [id number] [facility]y of [place] [facility] [id number] Darci as [phone] [address] 2022-02-27 2022-02-27 Telephone [facility] [id number] [facility] 00:00:00 00:00:00 Maureen Festus DOWL[place] [id number] [id number] [phone] Wy dical [facility] [address] [facility] 2022-02-24 2022-02-24 Orders Doctor SERGIO [id number] [place] [address] 00:00:00 00:00:00 Only Unassigned, LALITA [id number] [facility] [id number] Darci as [phone] [address] 2021-09-07 2021-09-15 Inpatient UR ESTER [facility] Cardiology [id number] [facility] 21:52:00 13:08:00 [facility] 2021-09-07 2021-09-15 [facility] Sarai Alva [facility] [id number] 21:52:00 13:08:[address] [facility] 2021-09-07 2021-09-15 [facility] Sarai Alva [facility] [id number] 21:52:00 13:08:[address] [facility] 2021-09-12 2021-09-[address] [facility] [id number] 00:00:00 00:00:00 Only [facility] 2021-09-12 2021-09-[address] [facility] [id number] 00:00:00 00:00:00 Only [facility] 2021-09-08 2021-09-08 Outpatient [facility] [id number] [address] [place] [address] 00:00:00 23:59:00 Frieda 2021-04-28 2021-04-28 [facility] [id number] 09:07:52 14:36:33 Visit Maureen Dowling [id number] [place] [id number] Pranav [phone] [facility] [address] Building Results Test Description Test Time Test Comments Results Result Comments Source SARS-CoV2/RT-PCR (Asymptomatic ONLY) 2021-09-15 16:14:42 Test Item Value Reference Range Interpretation Comme nts SARS-COV2/RT-PCR (test code = Negative Negative 34188-7) JUANIS (test code = JUANIS) Negative result [...] Hernandez SARS-CoV-2 assay. Fact Sheet for Healthcare Providers:https://www.[employer]oon[employer]s.BlueSpace kareem/schuyler/RT SARS-CoV-2 HCP Fact Sheet 51-550034.pdf Fact Sheet for Healthcare Patients:https://www.Balloon[employer].tasneem maya/schuyler/RT SARS-CoV-2 Patient Fact Sheet EN 51-453062K9.pdf Lab Interpretation (test code = Normal 02328-8) [facility]2021-09-15 16:14:42 Test Item Value Reference Range Interpretation Comments SARS-COV2/RT-PCR (test Negative Negative code = 23980-2) JUANIS (test code = JUANIS) Negative result [...] the Act. Testing was performed using the [employer] SARS-CoV-2 assay. Fact Sheet for Healthcare Providers:https://www.toney ray/schuyler/RT SARS-CoV-2 HCP Fact Sheet 51-524458.pdf Fact Sheet for Healthcare Patients:https://www.DICOM Grid/schuyler/RT SARS-CoV-2 Patient Fact Sheet EN 51-128511J1.pdf Lab Interpretation Normal (test code = 53018-6) [facility]2021-09-15 16:14:42 Test Item Value Reference Range Interpretation Comments SARS-COV2/RT-PCR (test Negative Negative code = 73538-7) JUANIS (test code = JUANIS) Negative result [...] the Act. Testing was performed using the [employer] SARS-CoV-2 assay. Fact Sheet for Healthcare Providers:https://www.toney doddMilestone Software/schuyler/RT SARS-CoV-2 HCP Fact Sheet 51-200724.pdf Fact Sheet for Healthcare Patients:https://www.DICOM Grid/schuyler/RT SARS-CoV-2 Patient Fact Sheet EN 51-010864G5.pdf Lab Interpretation Normal (test code = 85059-2) [facility])2021-09-15 16:14:42 Test Item Value Reference Range Interpretation Comments SARS-COV2/RT-PCR (test code = Negative Negative 6579406) Negative result for this test determines that [...] under Section 564(g) of the Act.Testing was performed using [employer] SARS-CoV-2 assay.Fact Sheet for Healthcare Providers:https://www.[employer]/schuyler/RT SARS-CoV-2 HCP Fact Sheet 51- 477844.pdfFact Sheet for Healthcare Patients:https://www.[employer]/schuyler/RT SARS-CoV-2 Patient Fact Sheet EN 51-744256O2.pdfSARS-COV2/RT-PCR ([facility])2021-09-15 11:07:01 Test Item Value Reference Range Interpretation Comments SARS-COV2/RT-PCR (test code = Negative Negative 7341060) Negative result for this test determines that [...] under Section 564(g) of the Act.Testing was performed using t [employer] SARS-CoV-2 assay.Fact Sheet for Healthcare Providers:https://www.Ballooning Nest Eggs.hernandez/schuyler/RT SARS-CoV-2 HCP Fact Sheet 51- 521436.pdfFact Sheet for Healthcare Patients:https://www.[employer].hernandez/schuyler/RT SARS-CoV-2 Patient Fact Sheet EN 51-326199E6.pdfCBC with platelet count + automated [id number] 06:22:16 Test Item Value Reference Range Interpretation Comments WBC (test code = 6690-2) 13.2 See_Comment H [A utomated message] The system [employer] generated this result transmitted ref erence range: 3.5 - 10 .5 K/L. The refe rence range was not u sed to interpret this result as normal/abnor mal. RBC (test code = 789-8) 3.59 See_Comment L [Au tomated message] The system [employer] generated this result transmitted ref erence range: 3.93 - 5 .22 M/L. The refe rence range was not u sed to interpret this result as normal/abnor mal. MCHC (test code = 786-4) 33.0 See_Comment L [A utomated message] The system [employer] generated this result transmitted ref erence range: [...] See_Comment [Aut omated message] 777-3) The system [employer] generated this result transmitted ref erence range: 150 - 45 0 K/CU MM. The referen ce range was not u sed to interpret this result as normal/abnor mal. MPV (test code = 9.8 fL 9.4-12.3 66336-2) nRBC (test code = 413) 0 See_Comment [Aut omated message] The system [employer] generated this result transmitted ref erence range: [...] H [Aut omated message] 670) The system [employer] generated this result transmitted ref erence range: 1.56 - 6 .13 K/L. The refe rence range was not u sed to interpret this result as normal/abnor mal. # Lymphs (test code = 3.72 See_Comment [Auto mated message] 414) The system [employer] generated this result transmitted ref erence range: 1.18 - 3 .74 K/L. The refe rence range was not u sed to interpret this result as normal/abnor mal. # Monos (test code = 1.11 See_Comment H [Autom ated message] 415) The system [employer] generated this result transmitted ref erence range: 0.24 - 0 .36 K/L. The refe rence range was not u sed to interpret this result as normal/abnor mal. # Eos (test code = 416) 0.33 See_Comment [Au tomated message] The system [employer] generated this result transmitted ref erence range: 0.04 - 0 .36 K/L. The refe rence range was not u sed to interpret this result as normal/abnor mal. # Baso (test code = 417) 0.04 See_Comment [A utomated message] The system [employer] generated this result transmitted ref erence range: 0.01 - 0 .08 K/L. The refe rence range was not u sed to interpret this result as normal/abnor mal. Immature 1 % 0-1 Granulocytes-Relative (test code = 2801) Lab Interpretation (test Abnormal code = 82310-8) [facility] with platelet count + automated [id number] 06:22:16 Test Item Value Reference Range Interpretation Comments WBC (test code = 6690-2) 13.2 See_Comment H [A utomated message] The system [employer] generated this result transmitted ref erence range: 3.5 - 10 .5 K/L. The refe rence range was not u sed to interpret this result as normal/abnor mal. RBC (test code = 789-8) 3.59 See_Comment L [Au tomated message] The system [employer] generated this result transmitted ref erence range: 3.93 - 5 .22 M/L. The refe rence range was not u sed to interpret this result as normal/abnor mal. MCHC (test code = 786-4) 33.0 See_Comment L [A utomated message] The system [employer] generated this result transmitted ref erence range: [...] See_Comment [Aut omated message] 777-3) The system [employer] generated this result transmitted ref erence range: 150 - 45 0 K/CU MM. The referen ce range was not u sed to interpret this result as normal/abnor mal. MPV (test code = 9.8 fL 9.4-12.3 91652-3) nRBC (test code = 413) 0 See_Comment [Aut omated message] The system [employer] generated this result transmitted ref erence range: [...] H [Aut omated message] 670) The system [employer] generated this result transmitted ref erence range: 1.56 - 6 .13 K/L. The refe rence range was not u sed to interpret this result as normal/abnor mal. # Lymphs (test code = 3.72 See_Comment [Auto mated message] 414) The system [employer] generated this result transmitted ref erence range: 1.18 - 3 .74 K/L. The refe rence range was not u sed to interpret this result as normal/abnor mal. # Monos (test code = 1.11 See_Comment H [Autom ated message] 415) The system [employer] generated this result transmitted ref erence range: 0.24 - 0 .36 K/L. The refe rence range was not u sed to interpret this result as normal/abnor mal. # Eos (test code = 416) 0.33 See_Comment [Au tomated message] The system [employer] generated this result transmitted ref erence range: 0.04 - 0 .36 K/L. The refe rence range was not u sed to interpret this result as normal/abnor mal. # Baso (test code = 417) 0.04 See_Comment [A utomated message] The system [employer] generated this result transmitted ref erence range: 0.01 - 0 .08 K/L. The refe rence range was not u sed to interpret this result as normal/abnor mal. Immature 1 % 0-1 Granulocytes-Relative (test code = 2801) Lab Interpretation (test Abnormal code = 89818-6) [facility] with platelet count + automated [id number] 06:22:16 Test Item Value Reference Range Interpretation Comments WBC (test code = 6690-2) 13.2 See_Comment H [A utomated message] The system [employer] generated this result transmitted ref erence range: 3.5 - 10 .5 K/L. The refe rence range was not u sed to interpret this result as normal/abnor mal. RBC (test code = 789-8) 3.59 See_Comment L [Au tomated message] The system [employer] generated this result transmitted ref erence range: 3.93 - 5 .22 M/L. The refe rence range was not u sed to interpret this result as normal/abnor mal. MCHC (test code = 786-4) 33.0 See_Comment L [A utomated message] The system [employer] generated this result transmitted ref erence range: [...] See_Comment [Aut omated message] 777-3) The system [employer] generated this result transmitted ref erence range: 150 - 45 0 K/CU MM. The referen ce range was not u sed to interpret this result as normal/abnor mal. MPV (test code = 9.8 fL 9.4-12.3 57413-6) nRBC (test code = 413) 0 See_Comment [Aut omated message] The system [employer] generated this result transmitted ref erence range: [...] H [Aut omated message] 670) The system [employer] generated this result transmitted ref erence range: 1.56 - 6 .13 K/L. The refe rence range was not u sed to interpret this result as normal/abnor mal. # Lymphs (test code = 3.72 See_Comment [Auto mated message] 414) The system [employer] generated this result transmitted ref erence range: 1.18 - 3 .74 K/L. The refe rence range was not u sed to interpret this result as normal/abnor mal. # Monos (test code = 1.11 See_Comment H [Autom ated message] 415) The system [employer] generated this result transmitted ref erence range: 0.24 - 0 .36 K/L. The refe rence range was not u sed to interpret this result as normal/abnor mal. # Eos (test code = 416) 0.33 See_Comment [Au tomated message] The system [employer] generated this result transmitted ref erence range: 0.04 - 0 .36 K/L. The refe rence range was not u sed to interpret this result as normal/abnor mal. # Baso (test code = 417) 0.04 See_Comment [A utomated message] The system [employer] generated this result transmitted ref erence range: 0.01 - 0 .08 K/L. The refe rence range was not u sed to interpret this result as normal/abnor mal. Immature 1 % 0-1 Granulocytes-Relative (test code = 2801) Lab Interpretation (test Abnormal code = 21677-4) [facility] W/PLT COUNT & AUTO [id number] 06:22:16 Test Item Value Reference Range Interpretation [...] (BEAKER) (test code = 2801) Vancomycin level, [id number] 14:18:34 Test Item Value Reference Range Interpretation Comments Vancomycin Tr (test code = 8.4 ug/mL 10.0-20.0 L 4092-3) JUANIS (test code = JUANIS) Assistant Technician ID - PIAYA L Lab Interpretation (test Abnormal code = 32804-4) [facility] [id number] 14:18:34 Test Item Value Reference Range Interpretation Comments Vancomycin Tr (test code = 8.4 ug/mL 10.0-20.0 L 4092-3) JUANIS (test code = JUANIS) Assistant Technician ID - PIAYA L Lab Interpretation (test Abnormal code = 63504-9) [facility], [id number] 14:18:34 Test Item Value Reference Range Interpretation Comments Vancomycin Tr (test code = 8.4 ug/mL 10.0-20.0 L 4092-3) JUANIS (test code = JUANIS) Assistant Technician ID - PIAYA L Lab Interpretation (test Abnormal code = 96272-3) [facility] CenterVANCOMYCIN LEVEL, [id number] 14:18:34 Test Item Value Reference Range Interpretation Comments VANCOMYCIN TROUGH (BEAKER) (test 8.4 ug/mL 10.0-20.0 L code = 522) Assistant Technician ID - PIAYA LCBC W/PLT COUNT & AUTO [id number] 14:05:32 Test Item Value Reference Range Interpretation [...] = No growth in 5 days 6463-4) [facility] (Right Venipuncture) 2021-09-13 02:00:53 Test Item Value Reference Range Interpretation Comments Result (test code = No growth in 5 days 6463-4) [facility] 2021-09-13 02:00:53 Test Item Value Reference Range Interpretation Comments Result (test code = No growth in 5 days 6463-4) [facility] CenterBLO[facility] [id number] 02:00:53 Test Item Value Reference Range Interpretation Comments CULTURE (BEAKER) (test No growth in 5 days code = 1095) BLOOD [id number] 02:00:52 Test Item Value Reference Range Interpretation Comments CULTURE (BEAKER) (test No growth in 5 days code = 1095) Transesophageal [id number] 18:48:24Ejection FractionSLEH ECHO HEARTLAB MKCK[facility]ON [facility] [id number] 18:48:24Ejection FractionSLEH ECHO HEARTLAB MKCKESSON [facility] CenterTrans[facility] [id number] 18:48:24Ejection FractionSLEH ECHO HEARTLAB MKCKA.[facility] CenterVANCOMYCIN LEVEL, [id number] 13:59:47 Test Item Value Reference Range Interpretation Comments VANCOMYCIN TROUGH (BEAKER) (test 8.4 ug/mL 10.0-20.0 L code = 522) Assistant Technician ID - DBLactic acid, ppssiv7573-59-70 13:58:08 Test Item Value Reference Range Interpretation Comments Lactate, Venous (test code = 1.96 mmol/L 0.50-2.20 1892) JUANIS (test code = JUANIS) Assistant Technician ID - DB Lab Interpretation (test Normal code = 39465-9) [facility] CenterL[facility], [id number] 13:58:08 Test Item Value Reference Range Interpretation Comments Lactate, Venous (test code = 1.96 mmol/L 0.50-2.20 2872) JUANIS (test code = JUANIS) Assistant Technician ID - DB Lab Interpretation (test Normal code = 52346-7) [facility] CenterL[facility] acid, cvmxvq7660-26-30 13:58:08 Test Item Value Reference Range Interpretation Comments Lactate, Venous (test code = 1.96 mmol/L 0.50-2.20 2872) JUANIS (test code = JUANIS) Assistant Technician ID - DB Lab Interpretation (test Normal code = 07665-9) [facility] CenterLACTIC ACID, [id number] 13:58:08 Test Item Value Reference Range Interpretation Comments LACTATE BLOOD VENOUS (2) (BEAKER) 1.96 mmol/L 0.50-2.20 (test code = 2872) Assistant Technician ID - DBBasic Metabolic Kprrl1494-48-37 13:56:06 Test Item Value Reference Range Interpretation [...] Calcium (test code = 8.7 mg/dL 8.4-10.2 91433-0) EGFR (test code = 77 mL/min/1.[place] [address]-1) NOT ACCURATE CREATININE CLEARANCE IN PREDICTING GLOMERULAR FILTRATION RATE . ESTIMATED GFR I S NOT APPLICABLE FOR DIALYSIS PATIENTS. JUANIS (test code = JUANIS) Assistant Technician ID - DB Lab Interpretation Abnormal (test code = 02886-6) [facility] Met[facility] [id number] 13:56:06 Test Item Value Reference Range Interpretation Comments Sodium (test code = 134 meq/L 136-145 L 2951-2) Potassium (test code = 4.3 meq/L 3.5-5.1 2823-3) Chloride (test code = 99 meq/L 98-107 2075-0) CO2 (test code = 25 meq/L -2027-) BUN (test code = 18 mg/dL 04-06 3094-0) Creatinine (test code 0.76 mg/dL 0.57-1.25 = 2160-0) Glucose (test code = 118 mg/dL 70-105 H 2345-7) Calcium (test code = 8.7 mg/dL 8.4-10.2 83127-9) EGFR (test code = 77 mL/min/1.[place] [address]-2) NOT ACCURATE CREATININE CLEARANCE IN PREDICTING GLOMERULAR FILTRATION RATE . ESTIMATED GFR I S NOT APPLICABLE FOR DIALYSIS PATIENTS. JUANIS (test code = JUANIS) Assistant Technician ID - DB Lab Interpretation Abnormal (test code = 80859-9) [facility] Metabolic [id number] 13:56:06 Test Item Value Reference Range Interpretation Comments Sodium (test code = 134 meq/L 136-145 L 2951-2) Potassium (test code = 4.3 meq/L 3.5-5.1 2823-3) Chloride (test code = 99 meq/L 98-107 2075-0) CO2 (test code = 25 meq/L 9) BUN (test code = 18 mg/dL 04-06 3094-0) Creatinine (test code 0.76 mg/dL 0.57-1.25 = 2160-0) Glucose (test code = 118 mg/dL 70-105 H 2345-7) Calcium (test code = 8.7 mg/dL 8.4-10.2 90107-7) EGFR (test code = 77 mL/min/1.[place] [address]-3) NOT ACCURATE CREATININE CLEARANCE IN PREDICTING GLOMERULAR FILTRATION RATE . ESTIMATED GFR I S NOT APPLICABLE FOR DIALYSIS PATIENTS. JUANIS (test code = JUANIS) Assistant Technician ID - DB Lab Interpretation Abnormal (test code = 60277-3) [facility] METABOLIC [id number] 13:56:06 Test Item Value Reference Range Interpretation [...] 697) EGFR (BEAKER) (test 77 mL/min/1.73 ESTIMA DAMIR GFR IS code = 1092) sq m NOT ACCURATE CREATININE CLEARANCE IN PREDICTING GLOMERULAR FILTRATION RATE . ESTIMATED GFR I S NOT APPLICABLE FOR DIALYSIS PATIEN TS. Assistant Technician ID - DBCBC W/PLT COUNT & AUTO [id number] 13:21:48 Test Item Value Reference Range Interpretation [...] (BEAKER) (test code = 2801) BASIC METABOLIC [id number] 14:26:25 Test Item Value Reference Range Interpretation [...] 697) EGFR (BEAKER) (test 75 mL/min/1.73 ESTIMA DAMIR GFR IS code = 1092) sq m NOT ACCURATE CREATININE CLEARANCE IN PREDICTING GLOMERULAR FILTRATION RATE . ESTIMATED GFR I S NOT APPLICABLE FOR DIALYSIS PATIEN TS. Assistant Technician ID - OMAgubektck5640-14-46 14:11:30 Test Item Value Reference Range Interpretation Comments Magnesium (test code = 1.9 mg/dL 1.6-2.6 58044-9) JUANIS (test code = JUANIS) Assistant Technician ID - DB Lab Interpretation (test Normal code = 84008-1) [facility] CenterMagnesium2021-12-26 14:11:30 Test Item Value Reference Range Interpretation Comments Magnesium (test code = 1.9 mg/dL 1.6-2.6 44681-6) JUANIS (test code = JUANIS) Assistant Technician ID - DB Lab Interpretation (test Normal code = 71308-4) [facility] 14:11:30 Test Item Value Reference Range Interpretation Comments Magnesium (test code = 1.9 mg/dL 1.6-2.6 32256-2) JUANIS (test code = JUANIS) Assistant Technician ID - DB Lab Interpretation (test Normal code = 63986-5) [facility] 14:11:30 Test Item Value Reference Range Interpretation Comments MAGNESIUM (BEAKER) (test code = 1.9 mg/dL 1.6-2.6 627) Assistant Technician ID - DBVANCOMYCIN LEVEL, [id number] 12:54:39 Test Item Value Reference Range Interpretation Comments VANCOMYCIN TROUGH (BEAKER) (test 10.7 ug/mL 10.0-20.0 code = 522) Assistant Technician ID - IGNACIO YYhjmbce3242-61-01 08:00:34 Test Item Value Reference Range Interpretation Comments Albumin (test code = 2.2 g/dL 3.5-5.0 L 13251-5) JUANIS (test code = JUANIS) Assistant Technician ID - IGNACIO W Lab Interpretation (test Abnormal code = 83038-9) [facility] CenterAlbumin2021-12-25 08:00:34 Test Item Value Reference Range Interpretation Comments Albumin (test code = 2.2 g/dL 3.5-5.0 L 01729-0) JUANIS (test code = JUANIS) Assistant Technician ID - IGNACIO W Lab Interpretation (test Abnormal code = 86020-5) [facility] CenterAlbumin2021-12-25 08:00:34 Test Item Value Reference Range Interpretation Comments Albumin (test code = 2.2 g/dL 3.5-5.0 L 00465-1) JUANIS (test code = JUANIS) Assistant Technician ID - IGNACIO W Lab Interpretation (test Abnormal code = 77224-4) [facility] CenterALBUMIN2021-12-25 08:00:34 Test Item Value Reference Range Interpretation Comments ALBUMIN (BEAKER) (test code = 1145) 2.2 g/dL 3.5-5.0 L Assistant Technician ID - IGNACIO TAlelrrc1912-02-54 06:36:13 Test Item Value Reference Range Interpretation Comments Calcium (test code = 6.4 mg/dL 8.4-10.2 L 07952-3) JUANIS (test code = JUANIS) Assistant Technician ID - IGNACIO W Lab Interpretation (test Abnormal code = 92736-4) [facility] Center[facility]2021-12-25 06:36:13 Test Item Value Reference Range Interpretation Comments Calcium (test code = 6.4 mg/dL 8.4-10.2 L 20056-1) JUANIS (test code = JUANIS) Assistant Technician ID - IGNACIO W Lab Interpretation (test Abnormal code = 11667-9) [facility] CenterCal[facility]2021-12-25 06:36:13 Test Item Value Reference Range Interpretation Comments Calcium (test code = 6.4 mg/dL 8.4-10.2 L 79472-8) JUANIS (test code = JUANIS) Assistant Technician ID - IGNACIO W Lab Interpretation (test Abnormal code = 76970-1) [facility] CenterCALCIUM2021-12-25 06:36:13 Test Item Value Reference Range Interpretation Comments CALCIUM (BEAKER) (test code = 697) 6.4 mg/dL 8.4-10.2 L Assistant Technician ID - IGNACIO WBASIC METABOLIC [id number] 05:17:45 Test Item Value Reference Range Interpretation [...] S NOT APPLICABLE FOR DIALYSIS PATIEN TS. Assistant Technician ID Ashley PIERRE DPhugmrpprj3640-45-90 05:10:32 Test Item Value Reference Range Interpretation Comments Phosphorus (test code = 2.4 mg/dL 2.3-4.7 2777-1) JUANIS (test code = JUANIS) Assistant Technician TRACY PIERRE W Lab Interpretation (test Normal code = 32423-1) [facility] Center[facility]orus2021-12-25 05:10:32 Test Item Value Reference Range Interpretation Comments Phosphorus (test code = 2.4 mg/dL 2.3-4.7 2777-1) JUANIS (test code = JUANIS) Assistant Technician ID - IGNACIO W Lab Interpretation (test Normal code = 83858-1) [facility] CenterPh[facility]orus2021-12-25 05:10:32 Test Item Value Reference Range Interpretation Comments Phosphorus (test code = 2.4 mg/dL 2.3-4.7 2777-1) JUANIS (test code = JUANIS) Assistant Technician ID - IGNACIO W Lab Interpretation (test Normal code = 62134-0) [facility] CenterPHOSPHORUS2021-12-25 05:10:32 Test Item Value Reference Range Interpretation Comments PHOSPHORUS (BEAKER) (test code = 2.4 mg/dL 2.3-4.7 604) Assistant Technician ID - IGNACIO CCQTBAXNTB5566-15-22 05:10:31 Test Item Value Reference Range Interpretation Comments MAGNESIUM (BEAKER) (test code = 1.7 mg/dL 1.6-2.6 627) Assistant Technician ID - IGNACIO WCalcium, Khwubdz3353-96-91 04:50:40 Test Item Value Reference Range Interpretation Comments Calcium, Ion (test code = 1993-11) 1.15 mmol/L 1.12-1.27 pH, Blood (test code = 77817-2) 7.39 [facility] CenterCal[facility], Jsehupk3369-62-97 04:50:40 Test Item Value Reference Range Interpretation Comments Calcium, Ion (test code = 1993-11) 1.15 mmol/L 1.12-1.27 pH, Blood (test code = 08231-7) 7.39 [facility] CenterCal[facility], Pxjpwou6694-34-88 04:50:40 Test Item Value Reference Range Interpretation Comments Calcium, Ion (test code = 1993-11) 1.15 mmol/L 1.12-1.27 pH, Blood (test code = 49940-7) 7.39 [facility] CenterCALCIUM, [id number] 04:50:40 Test Item Value Reference Range Interpretation Comments CALCIUM IONIZED (BEAKER) (test 1.15 mmol/L 1.12-1.27 code = 698) PH, BLOOD (BEAKER) (test code = 7.39 1810) CBC W/PLT COUNT & AUTO [id number] 04:36:32 Test Item Value Reference Range Interpretation [...] (BEAKER) (test code = 2801) VANCOMYCIN LEVEL, [id number] 19:55:12 Test Item Value Reference Range Interpretation Comments VANCOMYCIN TROUGH (BEAKER) (test 20.3 ug/mL 10.0-20.0 H code = 522) Assistant Technician ID - DBBASIC METABOLIC GNKVP8594-85-77 05:20:28 Test Item Value Reference Range Interpretation [...] S NOT APPLICABLE FOR DIALYSIS PATIEN TS. Assistant Technician ID - PIJACKELYN SLBMVMDIUI1868-60-18 05:17:02 Test Item Value Reference Range Interpretation Comments MAGNESIUM (BEAKER) (test code = 1.5 mg/dL 1.6-2.6 L 627) Assistant Technician ID - PIJACKELYN OQVXUWAJDJQ9747-16-24 05:17:02 Test Item Value Reference Range Interpretation Comments PHOSPHORUS (BEAKER) (test code = 2.8 mg/dL 2.3-4.7 604) Assistant Technician ID - DEANGELO LCALCIUM, [id number] 04:11:31 Test Item Value Reference Range Interpretation Comments CALCIUM IONIZED (BEAKER) (test 1.10 mmol/L 1.12-1.27 L code = 698) PH, BLOOD (BEAKER) (test code = 7.43 1810) CBC W/PLT COUNT & AUTO [id number] 04:09:30 Test Item Value Reference Range Interpretation [...] (BEAKER) (test code = 2801) Comprehensive metabolic sofhf7698-78-80 01:11:40 Test Item Value Reference Range Interpretation Comments Protein, Total (test 6.1 See_Comment [Autom ated code = 2885-2) message] The system which generated this result transmit damir reference range : 6.0 - 8.3 gm/dL . The reference range was not u sed to interpret th is result as normal/abnormal . Albumin (test code = 3.4 g/dL 3.5-5.0 L 75403-9) Alkaline Phosphatase 57 U/L 40-150 (test code = 6768-6) Total Bilirubin (test 0.3 mg/dL 0.2-1.2 code = 1975-2) Sodium (test code = 136 meq/L 283-110 2216-2) Potassium (test code 3.7 meq/L 3.5-5.1 = 2823-3) Chloride (test code = 100 meq/L 98-107 2074-0) CO2 (test code = 28 meq/L 22-29 8-9) BUN (test code = 15 mg/dL 7-21 3094-0) Creatinine (test code 0.69 mg/dL 0.57-1.25 = 2160-0) Glucose (test code = 104 mg/dL 70-105 2345-7) Calcium (test code = 8.7 mg/dL 8.4-10.2 10717-2) AST (test code = 11 U/L 5-34 1920-8) ALT (test code = 13 U/L 6-55 1742-6) EGFR (test code = 86 mL/min/1.[place] [address]-8) NOT ACCURATE CREATININE CLEARANCE IN PREDICTING GLOMERULAR FILTRATION RATE . ESTIMATED GFR I S NOT APPLICABLE FOR DIALYSIS PATIEN TS. JUANIS (test code = JUANIS) Assistant Technician ID - BS Lab Interpretation Abnormal (test code = 30418-9) [facility] Gwymhqf6124-12-50 01:11:40 Test Item Value Reference Range Interpretation Comments CRP (test code = 676) 0.55 mg/dL 0.00-0.50 H JUANIS (test code = JUANIS) Assistant Technician ID - BS Lab Interpretation (test Abnormal code = 53287-8) [facility] CenterComprehensive metabolic kxuvn1218-23-00 01:11:40 Test Item Value Reference Range Interpretation Comments Protein, Total (test 6.1 See_Comment [Autom ated code = 2885-2) message] The system which generated this result transmit damir reference range : 6.0 - 8.3 gm/dL . The reference range was not u sed to interpret th is result as normal/abnormal . Albumin (test code = 3.4 g/dL 3.5-5.0 L 89785-7) Alkaline Phosphatase 57 U/L 40-150 (test code = 6768-6) Total Bilirubin (test 0.3 mg/dL 0.2-1.2 code = 1974-2) Sodium (test code = 136 meq/L 070-532 1401-2) Potassium (test code 3.7 meq/L 3.5-5.1 = 2823-3) Chloride (test code = 100 meq/L 98-107 2074-0) CO2 (test code = 28 meq/L 22-29 8-9) BUN (test code = 15 mg/dL 7-21 3094-0) Creatinine (test code 0.69 mg/dL 0.57-1.25 = 2160-0) Glucose (test code = 104 mg/dL 70-105 2345-7) Calcium (test code = 8.7 mg/dL 8.4-10.2 13492-8) AST (test code = 11 U/L 5-34 1920-8) ALT (test code = 13 U/L 6-55 1742-6) EGFR (test code = 86 mL/min/1.[place] [address]-4) NOT ACCURATE CREATININE CLEARANCE IN PREDICTING GLOMERULAR FILTRATION RATE . ESTIMATED GFR I S NOT APPLICABLE FOR DIALYSIS PATIEN TS. JUANIS (test code = JUANIS) Assistant Technician ID - BS Lab Interpretation Abnormal (test code = 94174-7) [facility] Wbuntoa3213-91-94 01:11:40 Test Item Value Reference Range Interpretation Comments CRP (test code = 676) 0.55 mg/dL 0.00-0.50 H JUANIS (test code = JUANIS) Assistant Technician ID - BS Lab Interpretation (test Abnormal code = 25497-1) [facility] CenterCom[facility] gvxeo2534-22-79 01:11:40 Test Item Value Reference Range Interpretation Comments Protein, Total (test 6.1 See_Comment [Autom ated code = 2885-2) message] The system which generated this result transmit damir reference range : 6.0 - 8.3 gm/dL . The reference range was not u sed to interpret th is result as normal/abnormal . Albumin (test code = 3.4 g/dL 3.5-5.0 L 13914-9) Alkaline Phosphatase 57 U/L 40-150 (test code = 6768-6) Total Bilirubin (test 0.3 mg/dL 0.2-1.2 code = 1974-2) Sodium (test code = 136 meq/L 587-324 9641-2) Potassium (test code 3.7 meq/L 3.5-5.1 = 2823-3) Chloride (test code = 100 meq/L 98-107 2074-0) CO2 (test code = 28 meq/L -2027-9) BUN (test code = 15 mg/dL 7-21 3094-0) Creatinine (test code 0.69 mg/dL 0.57-1.25 = 2160-0) Glucose (test code = 104 mg/dL 70-105 2345-7) Calcium (test code = 8.7 mg/dL 8.4-10.2 60827-0) AST (test code = 11 U/L 5-34 1920-8) ALT (test code = 13 U/L 6-55 1742-6) EGFR (test code = 86 mL/min/1.[place] [address]-1) NOT ACCURATE CREATININE CLEARANCE IN PREDICTING GLOMERULAR FILTRATION RATE . ESTIMATED GFR I S NOT APPLICABLE FOR DIALYSIS PATIEN TS. JUANIS (test code = JUANIS) Assistant Technician ID - BS Lab Interpretation Abnormal (test code = 22473-0) [facility] Wzaubet0534-37-45 01:11:40 Test Item Value Reference Range Interpretation Comments CRP (test code = 676) 0.55 mg/dL 0.00-0.50 H JUANIS (test code = JUANIS) Assistant Technician ID - BS Lab Interpretation (test Abnormal code = 82728-9) [facility] CenterCOMPREHENSIVE METABOLIC [id number] 01:11:40 Test Item Value Reference Range Interpretation [...] = 355) BLOOD UREA NITROGEN 15 mg/dL - (BEAKER) (test code = 354) CREATININE (BEAKER) 0.69 mg/dL 0.57-1.25 (test code = 358) GLUCOSE RANDOM 104 mg/dL 70-105 (BEAKER) (test code = 652) CALCIUM (BEAKER) 8.7 mg/dL 8.4-10.2 (test code = 697) AST (SGOT) (BEAKER) 11 U/L 5-34 (test code = 353) ALT (SGPT) (BEAKER) 13 U/L 6-55 (test code = 347) EGFR (BEAKER) (test 86 mL/min/1.73 ESTIMA DAMIR GFR IS code = 1092) sq m NOT ACCURATE CREATININE CLEARANCE IN PREDICTING GLOMERULAR FILTRATION RATE . ESTIMATED GFR I S NOT APPLICABLE FOR DIALYSIS PATIEN TS. Assistant Technician ID - [id number] 01:11:40 Test Item Value Reference Range Interpretation Comments MAGNESIUM (BEAKER) (test code = 2.0 mg/dL 1.6-2.6 627) Assistant Technician ID - BSC-REACTIVE [id number] 01:11:40 Test Item Value Reference Range Interpretation Comments C-REACTIVE PROTEIN (BEAKER) (test 0.55 mg/dL 0.00-0.50 H code = 676) Assistant Technician ID - BSLACTIC ACID, [id number] 01:03:18 Test Item Value Reference Range Interpretation Comments LACTATE BLOOD VENOUS (2) (BEAKER) 1.11 mmol/L 0.50-2.20 (test code = 2872) Assistant Technician ID - BSBlood gas, rgkshq8852-02-05 01:02:34 Test Item Value Reference Range Interpretation Comments pH, Van (test code = 7.47 7.32-7.42 H 2746-6) pCO2, Van (test code = 41 See_Comment [Aut omated message] 745) The system [employer] generated this result transmit damir reference range : 41 - 51 mm Hg. The reference range was not used to interpret this result as normal/abnormal . pO2, Van (test code = 100 See_Comment H [Auto mated message] 1525-2) The system [employer] generated this result transmit damir reference range : 25 - 40 mm Hg. The reference range was not used to interpret this result as normal/abnormal . O2 Sat, Van (test code 98.0 % 40.0-70.0 H = 2711-0) HCO3, Van (test code = 29 mmol/L 21-29 29149-7) Base Excess, Van (test 4.7 mmol/L -2.0-3.0 H code = 1927-3) Patient Temperature 36.1 (test code = 8310-5) FIO2 (test code = 1819) 21 Lab Interpretation Abnormal (test code = 41689-0) [facility] gas, oxfovn9294-59-57 01:02:34 Test Item Value Reference Range Interpretation Comments pH, Van (test code = 7.47 7.32-7.42 H 2746-6) pCO2, Van (test code = 41 See_Comment [Aut omated message] 755) The system [employer] generated this result transmit damir reference range : 41 - 51 mm Hg. The reference range was not used to interpret this result as normal/abnormal . pO2, Van (test code = 100 See_Comment H [Auto mated message] 2705-2) The system [employer] generated this result transmit damir reference range : 25 - 40 mm Hg. The reference range was not used to interpret this result as normal/abnormal . O2 Sat, Van (test code 98.0 % 40.0-70.0 H = 2711-0) HCO3, Van (test code = 29 mmol/L 21-29 68316-0) Base Excess, Van (test 4.7 mmol/L -2.0-3.0 H code = 1927-3) Patient Temperature 36.1 (test code = 8310-5) FIO2 (test code = 1819) 21 Lab Interpretation Abnormal (test code = 52144-7) [facility] gas, [id number] 01:02:34 Test Item Value Reference Range Interpretation Comments pH, Van (test code = 7.47 7.32-7.42 H 2746-6) pCO2, Van (test code = 41 See_Comment [Aut omated message] 755) The system [employer] generated this result transmit damir reference range : 41 - 51 mm Hg. The reference range was not used to interpret this result as normal/abnormal . pO2, Van (test code = 100 See_Comment H [Auto mated message] 2705-2) The system [employer] generated this result transmit damir reference range : 25 - 40 mm Hg. The reference range was not used to interpret this result as normal/abnormal . O2 Sat, Van (test code 98.0 % 40.0-70.0 H = 2711-0) HCO3, Van (test code = 29 mmol/L 21-29 96439-0) Base Excess, Van (test 4.7 mmol/L -2.0-3.0 H code = 1927-3) Patient Temperature 36.1 (test code = 8310-5) FIO2 (test code = 1819) 21 Lab Interpretation Abnormal (test code = 69673-6) [id number]:02:34 Test Item Value Reference Range Interpretation [...] 1819) 21.0 CBC W/PLT COUNT & AUTO [id number] 00:49:55 Test Item Value Reference Range Interpretation [...] % 0-1 PERCENT (BEAKER) (test code = 0781)
[2022-06-12 09:50] LABS: Absolute Lymphocytes (CBC) 1.9 K/uL (0.7-4.9); Hematocrit 35.6 % (36.0-45.0); Lymphocytes % 22.4 % (15.3-44.8); MCV 85.6 fL (80-100); MPV 7.7 fL (7.6-11.3); RBC Red Blood Cell Count 4.16 M/uL (3.86-4.86)
--- NOTE | 2022-06-12 10:05 | RAD REPORT ---
EXAM DESCRIPTION: CT - Head C Spine Mpr Wo Con - 06/12/2022 9:44 am CLINICAL HISTORY: Head and neck injury status post fall. Head and neck pain COMPARISON: January 2022 TECHNIQUE: Computed axial tomography of the head and cervical spine was obtained. Sagittal and coronal reconstruction was performed. All CT scans are performed using dose optimization technique as appropriate and may include automated exposure control or mA/KV adjustment according to patient size. 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 An intracranial bleed is not seen. The ventricles are normal in caliber. An extra-axial fluid collect ion is not noted.Fluid within the visualized sinuses and mastoids is not seen A cervical fracture is not visualized. No dislocation is noted. Plate, screws and bone plugs have been placed from C5-C7. IMPRESSION: No acute intracranial abnormality is seen. A cervical fracture is not visualized. If the patient continues to have symptoms to suggest acute intracranial /spinal cord pathology then M RI would be recommended
[2022-06-12 11:17] LABS: Potassium 4.6 mmol/L (3.5-5.1)
--- NOTE | 2022-06-12 11:39 | ER ---
Nurse's Notes [facility] Name: Irina Pardo Age: 66 yrs Sex: Female : 1955 Arrival Date: 06/12/2022 Time: 09:10 Bed 2 Private MD: Diagnosis: Fall on same level, unspecified;Scalp Laceration/ Open wound of scalp;Headache Presentation: 06/12 09:05 Chief complaint: EMS states: pt fell hit the back of her head. noted lac on Right side tw2 on the back of her head and small skin tear noted to LEFT ac. dried blood noted in hair. bleeding noted on left ac. pressure dressing applied to LEFT ac. pt denies LOC. pts daughter states she left to take the children to school and when she returned she was down on the floor awake and alert. she was a\\T\\o3 for us. didn't know the time which the daughter states is her baseline. we gave 1gm Tylenol. 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 Care prior to arrival: Medication(s) given: Tylenol, 1000 mg. Mechanism of Injury: Fall from standing position. Trauma event details: Injury occurred in the [facility]. 09:05 Acuity: FRANK 3 tw2 09:05 Method Of Arrival: EMS: [facility] tw2 09:06 Initial Sepsis Screen: Does the patient meet any 2 criteria? HR > 90 bpm. No. Patient's tw2 initial sepsis screen is negative. Does the patient have a suspected source of infection? No. Patient's initial sepsis screen is negative. Risk Assessment: Do you want to hurt yourself or someone else? Patient reports no desire to harm self or others. Onset of symptoms was June 12, 2022. 09:07 Chief complaint: Patient states: it was my socks that made me fall. tw2 09:13 Note provider at bedside at this time. tw2 09:59 Coronavirus screen: At this time, the client does not indicate any symptoms associated tw2 with coronavirus-19. Ebola Screen: Patient denies travel to an Ebola-affected area in the 21 days before illness onset. Triage Assessment: 09:05 General: Appears in no apparent distress. slender, Behavior is calm, cooperative, tw2 appropriate for age. Pain: Denies pain. Neuro: Level of Consciousness is awake, alert, obeys commands, Oriented to person, place, situation. Cardiovascular: Capillary refill < 3 seconds Patient's skin is warm and dry. Respiratory: Airway is patent Respiratory effort is even, unlabored, Respiratory pattern is regular, symmetrical. Derm: sm skin tear LEFT ac. bleeding controlled with pressure dressing. Injury Description: Laceration sustained to right temporal area no active bleeding noted at this time. Trauma Activation: Alert Physician: ED Physician; Name: ; Notified At: ; Arrived At: Physician: General Surgeon; Name: ; Notified At: ; Arrived At: Physician: Radiology; Name: ; Notified At: ; Arrived At: Physician: Respiratory; Name: ; Notified At: ; Arrived At: Physician: Lab; Name: ; Notified At: ; Arrived At: Historical: - Allergies: 10: Iodine; tw2 10: SHELLFISH; tw2 - Home Meds: 10: clopidogrel 75 mg oral tab 1 tab once daily [Active]; duloxetine 30 mg oral cpDR 1 cap tw2 once daily [Active]; duloxetine 60 mg oral CDRS 1 cap once daily [Active]; famotidine 40 mg Oral tab 1 tab once daily [Active]; levothyroxine 25 mcg oral cap 1 cap once daily [Active]; albuterol sulfate 2.5 mg /3 mL (0.083 %) inhalation nebu NEEDED [Active]; aripiprazole 2 mg oral tab 1 tab at bedtime [Active]; atorvastatin 20 mg oral tab 1 tab at bedtime [Active]; amitriptyline 50 mg Oral tab 1 tab 1-3 tabs nightly [Active]; Spiriva with HandiHaler 18 mcg inhalation CpDv once daily [Active]; - PMHx: 10:01 COPD; CVA; High Cholesterol; tw2 - Immunization history:: Adult Immunizations. - Social history:: Smoking status: . - Immunization history: Last tetanus immunization:. Screenin:41 Abuse screen: Denies threats or abuse. Nutritional screening: No deficits noted. tw2 Tuberculosis screening: No symptoms or risk factors identified. Fall Risk Secondary diagnosis (15 points) impaired mobility. Primary Survey: 09:07 NO uncontrolled hemorrhage observed. A: The client is awake and alert. The airway is tw2 patent. The client is alert. Breathing/Chest: Spontaneous respiratory effort, equal unlabored respirations, breath sounds clear bilaterally, regular pattern, symmetrical chest rise and fall. Respiratory effort: spontaneous, unlabored, Respiratory pattern: regular. Circulation: No external hemorrhage present. Regular and strong central pulse, skin warm/dry/normal color. Skin temperature: warm, dry. Disability Client is alert. Exposure/Environment: All clothing and personal items were removed. Forensic evidence collection is not deemed to be indicated at this time. Items placed in patient belonging bag. There is no evidence of uncontrolled external bleeding. Obvious injury(ies) are noted at this time: sm skin tear noted to LEFT ac. pressure dressing was applied by EMS. removed with no bleeding noted. 10:30 Reassessment Alertness and Airway: Awake and alert. The airway is patent. Breathing: tw2 Spontaneous respiratory effort, equal unlabored respirations, breath sounds clear bilaterally, regular pattern with symmetrical chest rise and fall. Respiratory effort Spontaneous Unlabored Respiratory pattern Regular Circulation: Temperature Warm Dry Disability: Alert. Secondary Survey: 10:25 HEENT: Head Other lac noted to right side of head. Gastrointestinal: Abdomen is soft. tw2 : No signs and/or symptoms were reported regarding the genitourinary system. Musculoskeletal: contraction noted to RIGHT arm. pt reports "that's from a previous stroke, it affected my whole RIGHT side". Assessment: 09:07 Reassessment: see triage assessment. tw2 09:49 Reassessment: pt in imaging at this time. tw2 10:24 Reassessment: pt back from imaging. [place] attempted recollect labs at this tw2 time. 10:41 Reassessment: Patient appears in no apparent distress at this time. No changes from tw2 previously documented assessment. Patient and/or family updated on plan of care and expected duration. Pain level reassessed. Patient is alert, oriented x 3, equal unlabored respirations, skin warm/dry/pink. 11:00 Reassessment: pt requesting to use bedpan at this time. bedpan provided and pt able to tw2 roll onto RIGHT side to help. pt cleaned and able to help pull under garments up. 11:30 Reassessment: Patient appears in no apparent distress at this time. No changes from tw2 previously documented assessment. Patient and/or family updated on plan of care and expected duration. Pain level reassessed. Patient is alert, oriented x 3, equal unlabored respirations, skin warm/dry/pink. 12:15 Reassessment: pt requesting bedpan at this time. pt able to help onto bedpan. pt tw2 cleaned and able to assist with placing undergarments back into position. 12:31 Reassessment: Patient appears in no apparent distress at this time. No changes from tw2 previously documented assessment. Patient and/or family updated on plan of care and expected duration. Pain level reassessed. Patient is alert, oriented x 3, equal unlabored respirations, skin warm/dry/pink. Vital Signs: 09:06 BP 112 / 86; Pulse 91; Resp 17; Temp 97.6(TE); Pulse Ox 98% on R/A; Weight 52.16 kg tw2 (R); Pain 0/10; 10:40 BP 116 / 87; Pulse 86; Resp 17; Pulse Ox 96% on R/A; tw2 11:30 BP 118 / 87; Pulse 92; Resp 17; Pulse Ox 97% on R/A; tw2 12:31 BP 128 / 87; Pulse 88; Resp 17; Pulse Ox 97% on R/A; tw2 [place] Coma Score: 09:07 Eye Response: spontaneous(4). Verbal Response: oriented(5). Motor Response: obeys tw2 commands(6). Total: 15. Trauma Score (Adult): 09:07 Eye Response: spontaneous(1); Verbal Response: oriented(1); Motor Response: obeys tw2 commands(2); Systolic BP: > 89 mm Hg(4); Respiratory Rate: 10 to 29 per min(4); Lincoln Score: 15; Trauma Score: 12 10:40 Eye Response: spontaneous(1); Verbal Response: oriented(1); Motor Response: obeys tw2 commands(2); Systolic BP: > 89 mm Hg(4); Respiratory Rate: 10 to 29 per min(4); [place] Score: 15; Trauma Score: 12 ED Course: 09:07 Thermoregulation: warm blanket given to patient. tw2 09:07 Bed in low position. Call light in reach. Side rails up X2. panel monitor on. Pulse tw2 ox on. NIBP on. Warm blanket given. 09:10 Patient arrived in ED. ms3 09:10 Toro Anand DO is Attending Physician. ms3 09:13 Keisha Cohn RN is Primary Nurse. tw2 09:13 Arm band placed on. tw2 09:37 Missed attempt(s): 22 gauge in left antecubital area. Bleeding controlled, band aid tw2 applied, catheter tip intact. Inserted saline lock: 22 gauge in left antecubital area, using aseptic technique. Blood collected. 09:46 CT Head C Spine In Process Unspecified. EDMS 09:59 Triage completed. tw2 10:24 Basic Metabolic Panel Sent. kc6 11:30 Patient maintains SpO2 saturation greater than 95% on room air. tw2 12:31 No provider procedures requiring assistance completed. IV discontinued, intact, tw2 bleeding controlled, No redness/swelling at site. Pressure dressing applied. Administered Medications: No medications were administered Medication: 09:07 VIS not applicable for this client. tw2 Intake: 11:30 PO: 0ml; Total: 0ml. tw2 11:30 2x urine outputs, unable to meausure amt as some spilled from bedpan tw2 Outcome: 11:39 Discharge ordered by MD. ms3 12:32 Patient left the ED. tw2 12:32 Discharged to home via wheelchair. tw2 12:32 Condition: stable 12:32 Discharge instructions given to patient, Instructed on discharge instructions, follow up and referral plans. wound care, Demonstrated understanding of instructions, follow-up care, wound care. 12:32 Patient's length of stay in the Emergency Department was greater than 2 hours. Patient's length of stay was extended due to staffing issues within the emergency department. 12:32 Discharge instructions given to patient, Instructed on discharge instructions, follow tw2 up and referral plans. Demonstrated understanding of instructions, follow-up care, wound care. Signatures: Dispatcher [employer] EDMS Keisha Cohn RN RN tw2 Toro Anand DO DO ms3 Sarah Molina [id number] Corrections: (The following items were deleted from the chart) 10:01 09:05 Chief complaint: EMS states: pt fell hit the back of her head. noted lac on Right tw2 side on the back of her head and small skin tear noted to LEFT ac. pts daughter states she left to take the children to school and when she returned she was down on the floor awake and alert. she was a\\T\\o3 for us. didn't know the time which the daughter states is her baseline. we gave 1gm Tylenol. 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 tw2 15:05 12:15 Reassessment: pt requesting bedpan at this time. pt able to help onto bedpan. pt tw2 cleaned and able tw2
--- NOTE | 2022-06-12 11:39 | EDPHYS ---
Physician Documentation [facility] Name: Irina Pardo Age: 66 yrs Sex: Female : 1955 Arrival Date: 06/12/2022 Time: 09:10 Bed 2 Private MD: ED Physician Toro Anand HPI: 06/12 09:18 This 66 yrs old Female presents to ER via Unassigned with complaints of Fall Injury. ms3 09:18 66-year-old female with past medical history of CVA and COPD presents via [facility] EMS status post slipping and falling and striking her head. EMS states patient did not have loss of consciousness and patient is taking clopidogrel. Patient states she is having 4/10 throbbing head pain. Patient states she was in socks when she slipped causing her fall. Patient denies nausea or vomiting. Patient denies alleviating or inciting factors.. Historical: - Allergies: 10: Iodine; tw2 10:01 SHELLFISH; tw2 - Home Meds: 10: clopidogrel 75 mg oral tab 1 tab once daily [Active]; duloxetine 30 mg oral cpDR 1 cap tw2 once daily [Active]; duloxetine 60 mg oral CDRS 1 cap once daily [Active]; famotidine 40 mg Oral tab 1 tab once daily [Active]; levothyroxine 25 mcg oral cap 1 cap once daily [Active]; albuterol sulfate 2.5 mg /3 mL (0.083 %) inhalation nebu NEEDED [Active]; aripiprazole 2 mg oral tab 1 tab at bedtime [Active]; atorvastatin 20 mg oral tab 1 tab at bedtime [Active]; amitriptyline 50 mg Oral tab 1 tab 1-3 tabs nightly [Active]; Spiriva with HandiHaler 18 mcg inhalation CpDv once daily [Active]; - PMHx: 10:01 COPD; CVA; High Cholesterol; tw2 - Immunization history:: Adult Immunizations. - Social history:: Smoking status: . - Immunization history: Last tetanus immunization:. ROS: 09:18 Constitutional: Negative for fever, and chills. Neck: Negative for injury, pain, and ms3 swelling, Cardiovascular: Negative for chest pain, and palpitations. Respiratory: Negative for shortness of breath, cough, wheezing, and pleuritic chest pain, Abdomen/GI: Negative for abdominal pain, nausea, vomiting, diarrhea, and constipation. 09:18 MS/Extremity: Negative for injury and deformity, Neuro: Negative for headache, weakness, numbness, tingling. 09:18 Skin: Positive for laceration(s). 09:18 All other systems are negative. Exam: 09:18 Constitutional: This is a well developed, well nourished patient who is awake, alert, ms3 and in no acute distress. Head/Face: Normocephalic, atraumatic. Neck: Trachea midline, no cervical lymphadenopathy. Supple, full range of motion without nuchal rigidity, or vertebral point tenderness. No Meningismus. Chest/axilla: Normal chest wall appearance and motion. Nontender with no deformity. Cardiovascular: Regular rate and rhythm with a normal S1 and S2. No gallops, murmurs, or rubs. Normal PMI, no JVD. No pulse deficits. Respiratory: Lungs have equal breath sounds bilaterally, clear to auscultation and percussion. No rales, rhonchi or wheezes noted. No increased work of breathing, no retractions or nasal flaring. 09:18 Skin: injury, laceration(s), the wound is approximately 2 cm(s), of the Right scalp, Skin tear on left arm. 11:56 Skin: right lateral proximal post-auricular area injected with 4ml lidocaine with epi. snw [place] x 2 removed. Edges of wound clipped with sterile scissors, approximated and 3 rip placed per staple gun, Edges slightly everted and approximated. Pt tolerated well.. Vital Signs: 09:06 BP 112 / 86; Pulse 91; Resp 17; Temp 97.6(TE); Pulse Ox 98% on R/A; Weight 52.16 kg tw2 (R); Pain 0/10; 10:40 BP 116 / 87; Pulse 86; Resp 17; Pulse Ox 96% on R/A; tw2 11:30 BP 118 / 87; Pulse 92; Resp 17; Pulse Ox 97% on R/A; tw2 12:31 BP 128 / 87; Pulse 88; Resp 17; Pulse Ox 97% on R/A; tw2 [place] Coma Score: 09:07 Eye Response: spontaneous(4). Verbal Response: oriented(5). Motor Response: obeys tw2 commands(6). Total: 15. Trauma Score (Adult): 09:07 Eye Response: spontaneous(1); Verbal Response: oriented(1); Motor Response: obeys tw2 commands(2); Systolic BP: > 89 mm Hg(4); Respiratory Rate: 10 to 29 per min(4); Lincoln Score: 15; Trauma Score: 12 10:40 Eye Response: spontaneous(1); Verbal Response: oriented(1); Motor Response: obeys tw2 commands(2); Systolic BP: > 89 mm Hg(4); Respiratory Rate: 10 to 29 per min(4); Lincoln Score: 15; Trauma Score: 12 MDM: 09:10 Patient medically screened. ms3 09:18 Differential diagnosis: abrasion, closed head injury, contusion, laceration. ms3 11:56 Data reviewed: vital signs, nurses notes. Data interpreted: Pulse oximetry: on room air snw is 96 %. Interpretation: acceptable. 11:56 Special discussion: I discussed with the patient/guardian in detail that at this point ms3 there is no indication for admission to the hospital. It is understood, however, that if the symptoms persist or worsen the patient needs to return immediately for re-evaluation. ED course: Discussed labs and imaging with patient. Patient to follow up with PMD in 2-3 days. Patient understands/ agrees with plan. All questions answered. Return precautions given to include worsening symptoms, or any other concerns.. 06/12 09:11 Order name: Basic Metabolic Panel; Complete Time: 11:18 ms3 06/12 09:11 Order name: CBC with Diff; Complete Time: 11:01 ms3 06/12 09:11 Order name: CT Head C Spine; Complete Time: 11:01 ms3 06/12 09:11 Order name: Labs collected and sent; Complete Time: 09:49 ms3 06/12 09:14 Order name: IV Start; Complete Time: 09:49 tw2 06/12 09:53 Order name: Labs - recollect needed: recollect green top; Complete Time: 10:24 bd 06/12 10:35 Order name: Labs - recollect needed: recollect green top. lab will come to collect.; bd Complete Time: 12:05 Administered Medications: No medications were administered Disposition: 22:12 Co-signature as Attending Physician, Toro Anand DO. ms3 Disposition Summary: 06/12/22 11:39 Discharge Ordered Location: Home ms3 Condition: Stable ms3 Diagnosis - Fall on same level, unspecified ms3 - Scalp Laceration/ Open wound of scalp ms3 - Headache ms3 Followup: ms3 - With: Private Physician - When: 2 - 3 days - Reason: Recheck today's complaints Discharge Instructions: - Discharge Summary Sheet ms3 - Laceration Care, Adult ms3 Forms: - Medication Reconciliation Form ms3 - Thank You Letter ms3 - Antibiotic Education ms3 - Prescription Opioid Use ms3 Signatures: Dispatcher [employer] EDMS Zunilda Rojas Shelly, STITCHER SPECIAL MACHINE-C STITCHER SPECIAL MACHINE-Csnw Keisha Cohn RN RN tw2 Toro Anand DO DO ms3 Corrections: (The following items were deleted from the chart) 09:53 09:12 TYPE AND SCREEN+[id number].BRZ ordered. EDMS EDMS
[2022-06-14 16:38] VITALS: BP 116/87; O2SAT 96
== END 2022-06-12 12:32 | disposition home or self-care (01) ==
LOC: ER 09:07
PROC: 0JQ00ZZ Repair Scalp Subcutaneous Tissue and Fascia, Open Approach (ICD-10-PCS; principal; 2022-06-12)
DX: S01.01XA Laceration without foreign body of scalp, initial encounter (principal); R51.9 Headache, unspecified; W01.0XXA Fall on same level from slipping, tripping and stumbling without subsequent striking against object, initial encounter; J44.9 Chronic obstructive pulmonary disease, unspecified; Z91.013 Allergy to seafood
CPT/HCPCS: 36415; 70450; 72125; 80048; 85025; 99285

== ENCOUNTER 2022-10-22 13:40 | Emergency (ER) | payer OTHER ==
--- OUTSIDE RECORDS SUMMARY | 2022-10-22 14:10 | XMS REPORT | Continuity of Care Document ---
:1955 Author Organization [facility] t Address [address] [place] [address] Care Team Providers Name Role Phone JOSEPH CRYSTAL Primary Care Physician Unavailable MAUREEN MERCADO Attending Clinician Unavailable JOSEPH CRYSTAL Attending Clinician Unavailable Maureen Mercado MD Attending Clinician [phone] JAHAIRA DIAMOND Attending Clinician Unavailable JAHAIRA DIAMOND Attending Clinician Unavailable Doctor Unassigned, [place] Attending Clinician Unavailable PUJA FOLEY Attending Clinician Unavailable PUJA FOLEY Attending Clinician Unavailable JOYCE HAJI Attending Clinician Unavailable Nida MONCADA, Sarai Coronado Attending Clinician Deena MONCADA, Kyra Attending Clinician Dutch Belle MD Attending Clinician Krish MONCADA, Chelo Attending Clinician [phone] Ester MONCADA, Nereida Attending Clinician NEREIDA RÍOS Attending Clinician Unavailable Donnie ATTENUATOR, Uyen Attending Clinician Marisela FUENTES, Savanah Jarvis Attending Clinician Unavailable Rober ATTENUATOR, Kylee Attending Clinician KYLEE CORTEZ Attending Clinician Unavailable Puja Foley DO Attending Clinician JESSICA GRAHAM Attending Clinician Unavailable Aneraúl ATTENUATOR, Payton Attending Clinician Ibikunle ATTENUATOR, Foljamie F Attending Clinician Shawn MONCADA, Reji Attending Clinician Russ MONCADA, Joyce Post Attending Clinician Estela ATTENUATOR, Melanie Attending Clinician MELANIE RIVAS Attending Clinician Unavailable YARELY MCKEON Attending Clinician Unavailable 2, [facility] Attending Clinician Unavailable Provider, [facility] Attending Clinician Unavailable Pob, [facility] Main Attending Clinician Unavailable Laurel MONCADA, Froilan Attending Clinician Chester FUENTES, Debby Cannon Attending Clinician Christina Lowe DO Attending Clinician Bibiana MONCADA, Alex Valverde Attending Clinician Asia MONCADA, Virginia Kumari Attending Clinician [phone] MACHO CHICAS Attending Clinician Unavailable Only, [facility] Attending Clinician Unavailable Macho Chicas MD Attending Clinician Tio Merritt MD Attending Clinician TIO MERRITT Attending Clinician Unavailable TIO MERRITT Attending Clinician Unavailable ANYI CHOI Attending Clinician Unavailable VAUGHN ORTEGA Admitting Clinician Unavailable KYRA SHAFFER Admitting Clinician Unavailable Shawn MONCADA, Reji Admitting Clinician Asia MONCADA, Virginia Kumari Admitting Clinician [phone] ANYI CHOI Admitting Clinician Unavailable Payers Payer Name Policy Type Policy Number Effective Date Expiration Date Ellie garcia MEDICARE PART A [id number] 1998 \T\ B 00:00:00 MEDICAID [place] [facility] [id number] 2020 00:00:00 Problems Condition Condition Condition Status Onset Resolution Last Treating Co mments Source Name Details Category Date Date Treatment Clinician Date COPD COPD Disease Active 2020-[address] [facility] exacerbati 2-22 [facility] on on 00:00: Medical 00 Center Bacteremia Bacteremia Disease Active 2020-[address] [facility] SOB SOB Disease Active 2019-09 [facility] (shortness (shortness 0-31 it y of of breath[place] breath[place] [facility] Stroke Stroke Disease Active 2018-09 [facility] 2- ity of 00:00: [place] 00 Medical Branch Hypothyroi Hypothyroi Disease Active Overview : Univers dism dism 4-22 [facility] ity of (acquired) (acquired) 00:00: g of this [place] note Medical might be Branch different from the original. 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 Osteoporos Osteoporos Disease Active U nivers is is 4-22 ity of 00:00: [place] 00 Medical Branch CVA CVA Disease Active Univers (cerebral (cerebral 4-22 ity of vascular vascular 00:00: [place] accident) accident) 00 [facility] Branch Joint Joint Disease Active Univers contractur contractur 4-22 it y of e of hand, e of hand, 00:[place] right right 00 Medical Branch Tobacco Tobacco Disease Active Univers abuse abuse 4-22 ity of 00:00: [place] [facility] Marijuana Marijuana Disease Active Uni vers abuse abuse 4-22 ity of 00:00: [place] [facility] COPD COPD Disease Active Univers exacerbati exacerbati 4-22 it y of on on 00:00: [place] [facility] Allergies, Adverse Reactions, Alerts Allergy Allergy Status Severity Reaction(s) Onset Inactive Treating Comm ents Source Name Type Date Date Clinician SHELLFIS Allergy Active High Sob 2019- [facility] DERIVED 00[facility]: Medical 00 Center Shellfis Propensi Active Swelling 2019- Univ ers h ty to 04 ity of Derived adverse 00:00: [place] reaction 00 [facility] SHELLFIS DRUG Active SOB 2019-09 Univers H INGREDI -04 ity of DERIVED 00:00: [place] 00 [facility] Shellfis Drug Active Shortness Of 2019-[address] [facility] Allergy Breath, 09-20 [facility] Derived Swelling 00:00: Medical 00 [facility] CODEINE Allergy Active High Swelling 2017-[address] [facility] 4-03 [facility] 00:00: Medical 00 [facility] Codeine Propensi Active Swelling 2017-0 throat Unive rs ty to 4-03 ity of adverse 00:00: [place] reaction 00 [facility] CODEINE DRUG Active High Swelling 2018-0 Univers INGREDI 4-03 ity of 00:00: [place] 00 [facility] Codeine Drug Active Swelling 2017-[address] [facility] Allergy 4-03 [facility] 00:00: Medical 00 [facility] IODINE Allergy Active High Swelling 2014-[address] [facility] 4-22 [facility] 00:00: Medical 00 [facility] Iodine Propensi Active Swelling 2014-0 (shell Univer s ty to 4-22 fish) ity of adverse 00:00: throat [place] reaction [facility] IODINE DRUG Active High Swelling 2014-0 Univers INGREDI 4-22 ity of 00:00: [place] 00 [facility] Iodine Drug Active Swelling 2014-0 (shell [facility] Allergy 4-22 fish) [facility] 00:00: throat Medical 00 [facility] Social History Social Habit Start Date Stop Date Quantity Comments Source History SDOH [facility] Alcohol Binge Medical [facility] History SDOH [facility] Alcohol Comment Medical C enter History SDOH [facility] Alcohol Std Drinks Medica [facility] Exposure to 2022-09-23 2022-10-03 Not sure University of SARS-CoV-2 (event) 00:00:00 09:59:00 [facility] Tobacco use and 2021-09-08 2021-09-[address] Jaqui kes exposure 00:00:00 00:00:00 [facility] Alcohol intake 2021-09-08 2021-09-[address] [facility] es 00:00:00 00:00:00 non-drinker Medical Natty geller (finding) History SDOH 2021-09-08 2021-09-08 1 GUERO [place] Alcohol Frequency 00:00:00 00:00:00 [facility] Cigarettes smoked 2021-05-03 2021-05-03 Univers ity of current (pack per 00:00:00 00:00:00 [facility] [place] [facility] ) - Reported Branch Cigarette 2021-05-03 2021-05-03 University of pack-years 00:00:00 00:00:00 [facility] Tobacco Comment 2021-05-03 2021-05-03 Used to smoke 2 Univ ersity of 00:00:00 00:00:00 packs per day- [facility] quit aug 2020 Branch History of tobacco 2020-06-20 Cigarette Smoker University of use 00:00:00 [facility] Sex [birth year] GUERO Blanco kes 00:00:00 00:00:00 [facility] Smoking Status Start Date Stop Date Source Former smoker 2021-09-08 00:00:00 2021-09-08 00:00:00 GUERO Domingo [facility] Medications Ordered Filled Start Stop Current Ordering Indication Dosage Frequency Signature Comments Components Source Medication Medication Date Date Medication? Clinician (SIG) Name Name CLOPIDOGREL Yes [id number] TAKE ONE Univers 75 mg 1-27 TABLET BY ity of tablet 00:00: MOUTH [place] 00 DAILY Medical Branch LEVOTHYROXI 2021-09 Yes [id number] TAKE ONE Univers NE 25 mcg 2-14 TABLET BY ity o f tablet 00:00: MOUTH [place] EVERY Medical MORNING Branch LEVOTHYROXI 2021-09 Yes [id number] TAKE ONE Univers NE 25 mcg 2-14 TABLET BY ity o f tablet 00:00: MOUTH [place] EVERY Medical MORNING Branch ATORVASTATI 2021-09 Yes [id number] TAKE ONE Univers N 20 mg 0-17 TABLET BY ity of tablet 00:00: MOUTH AT [place] BEDTIME Medical Branch ATORVASTATI 2021-09 Yes [id number] TAKE ONE Univers N 20 mg 0-17 TABLET BY ity of tablet 00:00: MOUTH AT [place] BEDTIME Medical Branch ATORVASTATI 2021-09 Yes [id number] TAKE ONE Univers N 20 mg 0-17 TABLET BY ity of tablet 00:00: MOUTH AT [place] 00 BEDTIME Medical Branch DULoxetine 2-1 Yes 30mg Take 30 mg U nivers 30 mg 0-14 by mouth ity of capsule 11:08: in the [place] [address] morning. Medical Take with Branch 60mg capsule DULoxetine 2-1 Yes 60mg Take 60 mg U nivers 60 mg 0-14 by mouth ity of capsule 11:08: in the [place] [address] morning. Medical Take with Branch 30mg capsule DULoxetine 2-1 Yes 30mg Take 30 mg U nivers 30 mg 0-14 by mouth ity of capsule 11:08: in the [place] [address] morning. Medical Take with Branch 60mg capsule DULoxetine 2-1 Yes 60mg Take 60 mg U nivers 60 mg 0-14 by mouth ity of capsule 11:08: in the [place] [address] morning. Medical Take with Branch 30mg capsule DULoxetine 2-1 Yes 30mg Take 30 mg U nivers 30 mg 0-14 by mouth ity of capsule 11:08: in the [place] [address] morning. Medical Take with Branch 60mg capsule DULoxetine 2-1 Yes 60mg Take 60 mg U nivers 60 mg 0-14 by mouth ity of capsule 11:08: in the [place] [address] morning. Medical Take with Branch 30mg capsule DULoxetine 2-1 Yes 30mg Take 30 mg U nivers 30 mg 0-14 by mouth ity of capsule 11:08: in the [place] [address] morning. Medical Take with Branch 60mg capsule DULoxetine 2-1 Yes 60mg Take 60 mg U nivers 60 mg 0-14 by mouth ity of capsule 11:08: in the [place] [address] morning. Medical Take with Branch 30mg capsule DULoxetine 2022-1 Yes 30mg Take 30 mg U nivers 30 mg 0-14 by mouth ity of capsule 11:08: in the [place] 48 morning. Medical Take with Branch 60mg capsule DULoxetine 2022-1 Yes 60mg Take 60 mg U nivers 60 mg 0-14 by mouth ity of capsule 11:08: in the [place] 48 morning. Medical Take with Branch 30mg capsule DULoxetine 2022-0 Yes 30mg Take 30 mg U nivers 30 mg 8-15 by mouth ity of capsule 12:48: in the [place] [address] morning. Medical Take with Branch 60mg capsule DULoxetine 2022-0 Yes 60mg Take 60 mg U nivers 60 mg 8-15 by mouth ity of capsule 12:48: in the [place] [address] morning. Medical Take with Branch 30mg capsule DULoxetine 2021-0 Yes 30mg Take 30 mg U nivers 30 mg 8-15 by mouth ity of capsule 12:48: in the [place] [address] morning. Medical Take with Branch 60mg capsule DULoxetine 2021-0 Yes 60mg Take 60 mg U nivers 60 mg 8-15 by mouth ity of capsule 12:48: in the [place] [address] morning. Medical Take with Branch 30mg capsule tiotropium 2021-0 Yes [id number] 18ug Inhale 1 Univers 18 mcg 8-15 capsule in ity of inhalation 00:00: the [place] 00 morning. Medical Branch albuterol 0 Yes [id number] 2{puff} Inhale 2 Univers 90 8-15 Puffs ity of mcg/actuati 00:00: every 4 Darc[place] as on inhaler 00 (four) Medical hours as Branch needed for Wheezing or Shortness of Breath. tiotropium 2021-0 Yes [id number] 18ug Inhale 1 Univers 18 mcg 8-15 capsule in ity of inhalation 00:00: the [place] 00 morning. Medical Branch albuterol 0 Yes [id number] 2{puff} Inhale 2 Univers 90 8-15 Puffs ity of mcg/actuati 00:00: every 4 [place] as on inhaler 00 (four) Medical hours as Branch needed for Wheezing or Shortness of Breath. tiotropium 2021-0 Yes [id number] 18ug Inhale 1 Univers 18 mcg 8-15 capsule in ity of inhalation 00:00: the [place] morning. Medical Branch albuterol 2021-0 Yes [id number] 2{puff} Inhale 2 Univers 90 8-15 Puffs ity of mcg/actuati 00:00: every 4 [place] as on inhaler 00 (four) Medical hours as Branch needed for Wheezing or Shortness of Breath. tiotropium 2021-0 Yes [id number] 18ug Inhale 1 Univers 18 mcg 8-15 capsule in ity of inhalation 00:00: the [place] 00 morning. Medical Branch albuterol 2021-0 Yes [id number] 2{puff} Inhale 2 Univers 90 8-15 Puffs ity of mcg/actuati 00:00: every 4 [place] as on inhaler 00 (four) Medical hours as Branch needed for Wheezing or Shortness of Breath. tiotropium 0 Yes [id number] 18ug Inhale 1 Univers 18 mcg 8-15 capsule in ity of inhalation 00:00: the [place] 00 morning. Medical Branch albuterol 0 Yes [id number] 2{puff} Inhale 2 Univers 90 8-15 Puffs ity of mcg/actuati 00:00: every 4 [place] as on inhaler 00 (four) Medical hours as Branch needed for Wheezing or Shortness of Breath. tiotropium 0 Yes [id number] 18ug Inhale 1 Univers 18 mcg 8-15 capsule in ity of inhalation 00:00: the [place] 00 morning. Medical Branch albuterol 0 Yes [id number] 2{puff} Inhale 2 Univers 90 8-15 Puffs ity of mcg/actuati 00:00: every 4 [place] as on inhaler 00 (four) Medical hours as Branch needed for Wheezing or Shortness of Breath. tiotropium 0 Yes [id number] 18ug Inhale 1 Univers 18 mcg 8-15 capsule in ity of inhalation 00:00: the [place] 00 morning. Medical Branch albuterol 0 Yes [id number] 2{puff} Inhale 2 Univers 90 8-15 Puffs ity of mcg/actuati 00:00: every 4 [place] as on inhaler 00 (four) Medical hours as Branch needed for Wheezing or Shortness of Breath. albuterol 0 Yes [id number] 2.5mg Inhale 3 Univers 2.5 mg /3 4-27 mL every 4 ity of mL (0.083 00:00: (four) [place] %) 00 hours. May Medical nebulizer also Branch solution nebulize one extra every 6 hours. albuterol 2021-0 Yes [id number] 2.5mg Inhale 3 Univers 2.5 mg /3 4-27 mL every 4 ity of mL (0.083 00:00: (four) [place] %) 00 hours. May Medical nebulizer also Branch solution nebulize one extra every 6 hours. albuterol 2021-0 Yes [id number] 2.5mg Inhale 3 Univers 2.5 mg /3 4-27 mL every 4 ity of mL (0.083 00:00: (four) [place] %) 00 hours. May Medical nebulizer also Branch solution nebulize one extra every 6 hours. albuterol 2022-0 Yes [id number] 2.5mg Inhale 3 Univers 2.5 mg /3 4-27 mL every 4 ity of mL (0.083 00:00: (four) [place] %) 00 hours. May Medical nebulizer also Branch solution nebulize one extra every 6 hours. albuterol 2022-0 Yes [id number] 2.5mg Inhale 3 Univers 2.5 mg /3 4-27 mL every 4 ity of mL (0.083 00:00: (four) [place] %) 00 hours. May Medical nebulizer also Branch solution nebulize one extra every 6 hours. albuterol 2-0 Yes [id number] 2.5mg Inhale 3 Univers 2.5 mg /3 4-27 mL every 4 ity of mL (0.083 00:00: (four) [place] %) 00 hours. May Medical nebulizer also Branch solution nebulize one extra every 6 hours. albuterol 2-0 Yes [id number] 2.5mg Inhale 3 Univers 2.5 mg /3 4-27 mL every 4 ity of mL (0.083 00:00: (four) [place] %) 00 hours. May Medical nebulizer also Branch solution nebulize one extra every 6 hours. albuterol 2022-0 Yes [id number] 2.5mg Inhale 3 Univers 2.5 mg /3 4-27 mL every 4 ity of mL (0.083 00:00: (four) [place] %) 00 hours. May Medical nebulizer also Branch solution nebulize one extra every 6 hours. albuterol 2022-0 Yes [id number] 2.5mg Inhale 3 Univers 2.5 mg /3 4-27 mL every 4 ity of mL (0.083 00:00: (four) [place] %) 00 hours. May Medical nebulizer also Branch solution nebulize one extra every 6 hours. albuterol 2022-0 Yes [id number] 2.5mg Inhale 3 Univers 2.5 mg /3 4-27 mL every 4 ity of mL (0.083 00:00: (four) [place] %) 00 hours. May Medical nebulizer also Branch solution nebulize one extra every 6 hours. albuterol 2021-0 Yes [id number] 2.5mg Inhale 3 Univers 2.5 mg /3 [...] 25 MCG morning. tablet levothyroxi 2020-09 Yes [id number] 25ug Take 1 Univers ne 25 mcg 2-09 tablet by ity o f tablet 00:00: mouth [place] 00 every Medical morning. Branch clopidogreL 2020-09 Yes 1{tbl} QD Take [address] (PLAVIX) 75 2-09 tablet by [place] es mg tablet 00:00: mouth Medical 00 daily. Center clopidogreL 2020-09 Yes [id number] 75mg Take 1 Univers 75 mg 2-09 tablet by ity of tablet 00:00: mouth [place] 00 daily. Medical Branch levothyroxi 2020-09 Yes 1{tbl} QD Take [address] ne 2-09 tablet by [facility] (SYNTHROID, 00:00: mouth Medic al LEVOTHROID) 00 every Center 25 MCG morning. tablet levothyroxi 2020-09 Yes [id number] 25ug Take 1 Univers ne 25 mcg 2-09 tablet by ity o f tablet 00:00: mouth [place] 00 every Medical morning. Branch clopidogreL 2020-09 Yes [id number] 75mg Take 1 Univers 75 mg 2-09 tablet by ity of tablet 00:00: mouth [place] 00 daily. Medical Branch levothyroxi 2020-09 Yes [id number] 25ug Take 1 Univers ne 25 mcg 2-09 tablet by ity o f tablet 00:00: mouth [place] 00 every Medical morning. Branch clopidogreL 2020-09 Yes [id number] 75mg Take 1 Univers 75 mg 2-09 tablet by ity of tablet 00:00: mouth [place] 00 daily. Medical Branch levothyroxi 2020-09 Yes [id number] 25ug Take 1 Univers ne 25 mcg 2-09 tablet by ity o f tablet 00:00: mouth [place] 00 every Medical morning. Branch clopidogreL 2020-09 Yes [id number] 75mg Take 1 Univers 75 mg 2-09 tablet by ity of tablet 00:00: mouth [place] 00 daily. Medical Branch levothyroxi 2020-09 Yes [id number] 25ug Take 1 Univers ne 25 mcg 2-09 tablet by ity o f tablet 00:00: mouth [place] 00 every Medical morning. Branch clopidogreL 2020-09 Yes [id number] 75mg Take 1 Univers 75 mg 2-09 tablet by ity of tablet 00:00: mouth [place] 00 daily. Medical Branch levothyroxi 2020-09 Yes [id number] 25ug Take 1 Univers ne 25 mcg 2-09 tablet by ity o f tablet 00:00: mouth [place] 00 every Medical morning. Branch clopidogreL 2020-09 Yes [id number] 75mg Take 1 Univers 75 mg 2-09 tablet by ity of tablet 00:00: mouth [place] 00 daily. Medical Branch levothyroxi 2020-09 Yes [id number] 25ug Take 1 Univers ne 25 mcg 2-09 tablet by ity o f tablet 00:00: mouth [place] 00 every Medical morning. Branch clopidogreL 2020-09 Yes [id number] 75mg Take 1 Univers 75 mg 2-09 tablet by ity of tablet 00:00: mouth [place] 00 daily. Medical Branch levothyroxi 2020-09 Yes [id number] 25ug Take 1 Univers ne 25 mcg 2-09 tablet by ity o f tablet 00:00: mouth [place] 00 every Medical morning. Branch clopidogreL 2020-09 Yes [id number] 75mg Take 1 Univers 75 mg 2-09 tablet by ity of tablet 00:00: mouth [place] 00 daily. Medical Branch levothyroxi 2020-09 Yes [id number] 25ug Take 1 Univers ne 25 mcg 2-09 tablet by ity o f tablet 00:00: mouth [place] 00 every Medical morning. Branch clopidogreL 2020-09 Yes [id number] 75mg Take 1 Univers 75 mg 2-09 tablet by ity of tablet 00:00: mouth [place] 00 daily. [facility] Branch clopidogreL 2020-09 Yes [id number] 75mg Take 1 Univers 75 mg 2-09 [...] every Center 25 MCG morning. tablet clopidogreL 2020-09- No [id number] 75mg Take 1 Univers 75 mg 2-09 -27 tablet by ity of tablet 00:00: 00:00 mouth [place] 00 :00 daily. [facility] Branch levothyroxi 2020-09- No [id number] 25ug Take 1 Univers ne 25 mcg 2-09 12-14 tablet by ity of tablet 00:00: 00:00 mouth [place] 00 :00 every Medical morning. Branch benzonatate 2020-09 Yes 200mg Take [address] (TESSALON) 2-07 mg by [facility] 200 MG 00:00: mouth 3 Medical capsule 00 (three) Center times daily as needed. predniSONE 2020-09 Yes 1{tbl} QD Take [address] [facility] (DELTASONE) 2-07 tablet by [place] [facility] 50 MG 00:00: mouth Medical tablet 00 daily. [facility] benzonatate 2020-09 Yes 200mg Take [address] (TESSALON) 2-07 mg by [facility] 200 MG 00:00: mouth 3 Medical capsule 00 (three) Center times daily as needed. predniSONE 2020-09 Yes 1{tbl} QD Take [address] [facility] [address] (DELTASONE) 2-07 tablet by [place] es 50 MG 00:00: mouth Medical tablet 00 daily. [facility] benzonatate 2020-09 Yes 200mg Take [address] (TESSALON) 2-07 [facility] by [facility] 200 MG 00:00: mouth 3 Medical capsule 00 (three) Center times daily as needed. predniSONE 2020-09 Yes 1{tbl} QD Take [address] [address] (DELTASONE) 2-07 tablet by [facility] es 50 MG 00:00: mouth Medical tablet 00 daily. Center albuterol 2020-09 Yes 2{puff} Inhale 2 Univers 90 2-07 Puffs ity of mcg/actuati 00:00: every 4 [place] as on inhaler 00 (four) Medical hours as Branch needed for Wheezing or Shortness of Breath. predniSONE 2020-09 Yes [id number] 50mg Take 1 Univers 50 mg 2-07 tablet by ity of tablet 00:00: mouth [place] 00 daily. Medical Branch benzonatate 2020-09 Yes [id number] 200mg Take 1 Univers 200 mg 2-07 capsule by ity of capsule 00:00: mouth 3 [place] 00 (three) Medical times Branch daily as needed for Cough. albuterol 2020-09 Yes 2{puff} Inhale 2 Univers 90 2-07 Puffs ity of mcg/actuati 00:00: every 4 [place] as on inhaler 00 (four) Medical hours as Branch needed for Wheezing or Shortness of Breath. predniSONE 2020-09 Yes [id number] 50mg Take 1 Univers 50 mg 2-07 tablet by ity of tablet 00:00: mouth [place] 00 daily. Medical Branch benzonatate 2020-09 Yes [id number] 200mg Take 1 Univers 200 mg 2-07 capsule by ity of capsule 00:00: mouth 3 [place] 00 (three) Medical times Branch daily as needed for Cough. albuterol 2020-09 Yes 2{puff} Inhale 2 Univers 90 2-07 Puffs ity of mcg/actuati 00:00: every 4 [place] as on inhaler 00 (four) Medical hours as Branch needed for Wheezing or Shortness of Breath. predniSONE 2020-09 Yes [id number] 50mg Take 1 Univers 50 mg 2-07 tablet by ity of tablet 00:00: mouth [place] 00 daily. Medical Branch benzonatate 2020-09 Yes [id number] 200mg Take 1 Univers 200 mg 2-07 capsule by ity of capsule 00:00: mouth 3 [place] 00 (three) Medical times Branch daily as needed for Cough. albuterol 2020-09 Yes [id number] 2{puff} Inhale 2 Univers 90 2-07 Puffs ity of mcg/actuati 00:00: every 4 [place] on inhaler 00 (four) Medical hours as Branch needed for Wheezing or Shortness of Breath. predniSONE 2020-09 Yes [id number] 50mg Take 1 Univers 50 mg 2-07 tablet by ity of tablet 00:00: mouth [place] 00 daily. Medical Branch benzonatate 2020-09 Yes [id number] 200mg Take 1 Univers 200 mg 2-07 [...] MG 00:00: mouth Medical tablet 00 daily. Center albuterol 2020-09- No [id number] 2{puff} Inhale 2 Univers 90 2-07 08-15 Puffs ity of mcg/actuati 00:00: 00:00 every 4 [place] inhaler 00 :00 (four) Medical hours as Branch needed for Wheezing or Shortness of Breath. predniSONE 2020-09- No [id number] 50mg Take 1 Univers 50 mg 2-07 08-15 tablet by ity of tablet 00:00: 00:00 mouth [place] 00 :00 daily. Medical Branch benzonatate 2020-09- No [id number] 200mg Take 1 Univers 200 mg 2-07 08-15 capsule by ity of capsule 00:00: 00:00 mouth 3 [place] 00 :00 (three) Medical times Branch daily as needed for Cough. famotidine 2020-09 Yes [id number] 40mg Take 1 Univers 40 mg 1-16 tablet by ity of tablet 00:00: mouth [place] 00 daily. Medical Branch famotidine 2020-09 Yes [id number] 40mg Take 1 Univers 40 mg 1-16 tablet by ity of tablet 00:00: mouth [place] 00 daily. Medical Branch famotidine 2020-09 Yes [id number] 40mg Take 1 Univers 40 mg 1-16 tablet by ity of tablet 00:00: mouth [place] 00 daily. Medical Branch famotidine 2020-09 Yes [id number] 40mg Take 1 Univers 40 mg 1-16 tablet by ity of tablet 00:00: mouth [place] 00 daily. [facility] famotidine 2020-09 Yes [id number] 40mg Take 1 Univers 40 mg 1-16 tablet by ity of tablet 00:00: mouth [place] 00 daily. [facility] famotidine 2020-09 Yes [id number] 40mg Take 1 Univers 40 mg 1-16 tablet by ity of tablet 00:00: mouth [place] 00 daily. [facility] famotidine 2020-09 Yes [id number] 40mg Take 1 Univers 40 mg 1-16 tablet by ity of tablet 00:00: mouth [place] 00 daily. [facility] famotidine 2020-09 Yes [id number] 40mg Take 1 Univers 40 mg 1-16 tablet by ity of tablet 00:00: mouth [place] 00 daily. [facility] famotidine 2020-09 Yes [id number] 40mg Take 1 Univers 40 mg 1-16 tablet by ity of tablet 00:00: mouth [place] 00 daily. [facility] famotidine 2020-09 Yes [id number] 40mg Take 1 Univers 40 mg 1-16 tablet by ity of tablet 00:00: mouth [place] 00 daily. [facility] famotidine 2020-09 Yes [id number] 40mg Take 1 Univers 40 mg 1-16 tablet by ity of tablet 00:00: mouth [place] 00 daily. [facility] budesonide- 2020-09 Yes 2{puff} Q.5D Inhale 2 [...] on inhaler times daily. budesonide- 2020-09 Yes [id number] 2{puff} Inhale 2 Univers formoteroL 0-14 Puffs 2 ity of (SYMBICORT) 00:00: (two) [place] 160-4.5 00 times Medical mcg/actuati daily. Branch on inhaler albuterol 2020-09 Yes 2{puff} Inhale 2 U nivers (PROAIR 0-14 Puffs ity of HFA) 90 00:00: every 6 [place] mcg/actuati 00 (six) Medical on inhaler hours as Branc h needed for Wheezing or Shortness of Breath. budesonide- 2020-09 Yes [id number] 2{puff} Inhale 2 Univers formoteroL 0-14 Puffs 2 ity of (SYMBICORT) 00:00: (two) [place] 160-4.5 00 times Medical mcg/actuati daily. Branch on inhaler albuterol 2020-09 Yes 2{puff} Inhale 2 U nivers (PROAIR 0-14 Puffs ity of HFA) 90 00:00: every 6 [place] mcg/actuati 00 (six) Medical on inhaler hours as Branc h needed for Wheezing or Shortness of Breath. budesonide- 2020-09 Yes [id number] 2{puff} Inhale 2 Univers formoteroL 0-14 Puffs 2 ity of (SYMBICORT) 00:00: (two) [place] 160-4.5 00 times Medical mcg/actuati daily. Branch on inhaler albuterol 2020-09 Yes 2{puff} Inhale 2 U nivers (PROAIR 0-14 Puffs ity of HFA) 90 00:00: every 6 [place] mcg/actuati 00 (six) Medical on inhaler hours as Branc h needed for Wheezing or Shortness of Breath. budesonide- 2020-09 Yes [id number] 2{puff} Inhale 2 Univers formoteroL 0-14 Puffs [...] on inhaler times daily. budesonide- 2020-09- No [id number] 2{puff} Inhale 2 Univers formoteroL 0-14 08-15 [...] MG 00:00: mouth Medical tablet 00 nightly. [facility] amitriptyli Yes 3{tbl} QD Take [address] [facility] (ELAVIL) 9-13 tablets by Jaqui kes 50 MG 00:00: mouth Medical tablet 00 nightly. [facility] amitriptyli Yes 3{tbl} QD Take [address] [facility] (ELAVIL) 9-13 tablets by Jaqui kes 50 MG 00:00: mouth Medical tablet 00 nightly. [place] amitriptyli Yes [id number] 150mg Take 3 Univers ne 50 mg 9-13 tablets by ity o f tablet 00:00: mouth at [place] 00 bedtime. Medical Branch amitriptyli Yes [id number] 150mg Take 3 Univers ne 50 mg 9-13 tablets by ity o f tablet 00:00: mouth at [place] [address] bedtime. Medical Branch amitriptyli Yes [id number] 150mg Take 3 Univers ne 50 mg 9-13 tablets by ity o f tablet 00:00: mouth at [place] [address] bedtime. Medical Branch amitriptyli 0 Yes [id number] 150mg Take 3 Univers ne 50 mg 9-13 tablets by ity o f tablet 00:00: mouth at [place] [address] bedtime. Medical Branch amitriptyli 0 Yes [id number] 150mg Take 3 Univers ne 50 mg 9-13 tablets by ity o f tablet 00:00: mouth at [place] [address] bedtime. Medical Branch amitriptyli Yes [id number] 150mg Take 3 Univers ne 50 mg 9-13 tablets by ity o f tablet 00:00: mouth at [place] [address] bedtime. Medical Branch amitriptyli Yes [id number] 150mg Take 3 Univers ne 50 mg 9-13 tablets by ity o f tablet 00:00: mouth at [place] [address] bedtime. Medical Branch amitriptyli Yes [id number] 150mg Take 3 Univers ne 50 mg 9-13 tablets by ity o f tablet 00:00: mouth at [place] [address] bedtime. Medical Branch amitriptyli Yes [id number] 150mg Take 3 Univers ne 50 mg 9-13 tablets by ity o f tablet 00:00: mouth at [place] [address] bedtime. Medical Branch amitriptyli Yes [id number] 150mg Take 3 Univers ne 50 mg 9-13 tablets by ity o f tablet 00:00: mouth at [place] [address] bedtime. Medical Branch amitriptyli Yes [id number] 150mg Take 3 Univers ne 50 mg 9-13 tablets by ity o f tablet 00:00: mouth at [place] [address] bedtime. Medical Branch amitriptyli Yes 3{tbl} QD Take [address] [facility] (ELAVIL) 9-13 tablets by Jaqui kes 50 MG 00:00: mouth Medical tablet 00 nightly. [facility] ARIPiprazol Yes 2mg QD Take [address] [facility] (ABILIFY) 8-26 by mouth Luke s 2 MG tablet 00:00: nightly. Me dical 00 Center ARIPiprazol 0 Yes 2mg QD Take [address] [facility] (ABILIFY) 8-26 by mouth Luke s 2 MG tablet 00:00: nightly. Nd dictx [facility] ARIPiprazol 0 Yes 2mg QD Take [address] [facility] (ABILIFY) 8-26 by mouth Luke s 2 MG tablet 00:00: nightly. [facility] 00 [place] ARIPiprazol 0 Yes 2mg Take 2 mg U nivers e 2 mg 8-26 by mouth ity of tablet 00:00: at [place] [address] bedtime. Medical Branch ARIPiprazol 0 Yes 2mg Take 2 mg U nivers e 2 mg 8-26 by mouth ity of tablet 00:00: at [place] [address] bedtime. Medical Branch ARIPiprazol 2020-0 Yes 2mg Take 2 mg U nivers e 2 mg 8-26 by mouth ity of tablet 00:00: at [place] [address] bedtime. Medical Branch ARIPiprazol 0 Yes 2mg Take 2 mg U nivers e 2 mg 8-26 by mouth ity of tablet 00:00: at [place] [address] bedtime. Medical Branch ARIPiprazol 0 Yes 2mg Take 2 mg U nivers e 2 mg 8-26 by mouth ity of tablet 00:00: at [place] [address] bedtime. Medical Branch ARIPiprazol 0 Yes 2mg Take 2 mg U nivers e 2 mg 8-26 by mouth ity of tablet 00:00: at [place] [address] bedtime. Medical Branch ARIPiprazol 2020-0 Yes 2mg Take 2 mg U nivers e 2 mg 8-26 by mouth ity of tablet 00:00: at [place] [address] bedtime. Medical Branch ARIPiprazol 2020-0 Yes 2mg Take 2 mg U nivers e 2 mg 8-26 by mouth ity of tablet 00:00: at [place] [address] bedtime. Medical Branch ARIPiprazol 2020-0 Yes 2mg Take 2 mg U nivers e 2 mg 8-26 by mouth ity of tablet 00:00: at [place] [address] bedtime. Medical Branch ARIPiprazol 2020-0 Yes 2mg Take 2 mg U nivers e 2 mg 8-26 by mouth ity of tablet 00:00: at [place] 00 bedtime. Medical Branch ARIPiprazol Yes 2mg Take 2 mg U nivers e 2 mg 8-26 by mouth ity of tablet 00:00: at [place] 00 bedtime. Medical Branch ARIPiprazol Yes 2mg QD Take [address] [facility] (ABILIFY) 8-26 by mouth Luke s 2 MG tablet 00:00: nightly. Me dical 00 [place] benzonatate Yes [id number] 100mg Take 1 Univers (TESSALON 1-27 capsule by ity of PERLKofax) 100 00:00: mouth 3 [place] as mg capsule 00 (three) Medica l times Branch daily. benzonatate Yes [id number] 100mg Take 1 Univers (TESSALON 1-27 capsule by [employer] PERLKofax) 100 00:00: mouth 3 [place] as mg capsule 00 (three) Medica l times Branch daily. benzonatate Yes [id number] 100mg Take 1 Univers (TESSALON 1-27 capsule by ity of PERLKofax) 100 00:00: mouth 3 [place] as mg capsule 00 (three) Medica l times Branch daily. benzonatate Yes [id number] 100mg Take 1 Univers (TESSALON 1-27 capsule by [employer]LKofax) 100 00:00: mouth 3 [place] as mg capsule 00 (three) Medica l times Branch daily. benzonatate 2- No [id number] 100mg Take 1 Univers (TESSALON 1-27 08-15 capsule by [employer]) 100 00:00: 00:00 mouth 3 [place] mg capsule 00 :00 (three) Medica l times Branch daily. atorvastati Yes 20mg QD Take [address] [facility] (LIPITOR) 1-07 by mouth Luke [facility] 20 MG 00:00: daily. Medical tablet 00 [facility] atorvastati 0 Yes 20mg QD Take [address] [facility] (LIPITOR) 1-07 by mouth Luke [facility] 20 MG 00:00: daily. Medical tablet 00 [place] atorvastati Yes 20mg QD Take [address] [facility] (LIPITOR) 1-07 by mouth Luke [facility] 20 MG 00:00: daily. Medical tablet 00 [place] [facility] [id number] 20mg Take 1 Univers n 20 mg 1-07 tablet by ity of tablet 00:00: mouth at [place] [address] bedtime. [facility] [id number] 20mg Take 1 Univers n 20 mg 1-07 tablet by ity of tablet 00:00: mouth at [place] [address] bedtime. [facility] Yes [id number] 20mg Take 1 Univers n 20 mg 1-07 tablet by ity of tablet 00:00: mouth at [place] [address] bedtime. [facility] Yes [id number] 20mg Take 1 Univers n 20 mg 1-07 tablet by ity of tablet 00:00: mouth at [place] [address] bedtime. [facility] Yes [id number] 20mg Take 1 Univers n 20 mg 1-07 tablet by ity of tablet 00:00: mouth at [place] [address] bedtime. [facility] Yes [id number] 20mg Take 1 Univers n 20 mg 1-07 tablet by ity of tablet 00:00: mouth at [place] [address] bedtime. [facility] Yes 20mg QD Take [address] [facility] (LIPITOR) 1-07 by mouth Luke [facility] 20 MG 00:00: daily. Medical tablet 00 [place] [facility] 2021- No [id number] 20mg Take 1 Univers n 20 mg 1-07 10-17 tablet by ity of tablet 00:00: 00:00 mouth at [place] 00 :00 bedtime. [facility] 2021- No [id number] 20mg Take 1 Univers n 20 mg 1-07 10-17 tablet by ity of tablet 00:00: 00:00 mouth at [place] 00 :00 bedtime. [facility] 2021- No [id number] 20mg Take 1 Univers n 20 mg 1-07 10-17 tablet by ity of tablet 00:00: 00:00 mouth at [place] 00 :00 bedtime. [facility] ipratropium 2019-09 Yes [id number] .5mg Inhale 2.5 Univers 0.02 % 2-18 mL every 8 ity of nebulizer 00:00: (eight) [place] solution 00 hours as Medical needed for Branch Wheezing or Shortness of Breath. ipratropium 2020-1 Yes [id number] .5mg Inhale 2.5 Univers 0.02 % 2-18 mL every 8 ity of nebulizer 00:00: (eight) [place] solution 00 hours as Medical needed for Branch Wheezing or Shortness of Breath. ipratropium 2020-1 Yes [id number] .5mg Inhale 2.5 Univers 0.02 % 2-18 mL every 8 ity of nebulizer 00:00: (eight) [place] solution 00 hours as Medical needed for Branch Wheezing or Shortness of Breath. ipratropium 2020-1 Yes [id number] .5mg Inhale 2.5 Univers 0.02 % 2-18 mL every 8 ity of nebulizer 00:00: (eight) [place] solution 00 hours as Medical needed for Branch Wheezing or Shortness of Breath. ipratropium 2020-1 Yes [id number] .5mg Inhale 2.5 Univers 0.02 % 2-18 mL every 8 ity of nebulizer 00:00: (eight) [place] solution 00 hours as Medical needed for Branch Wheezing or Shortness of Breath. ipratropium 2020-1 Yes [id number] .5mg Inhale 2.5 Univers 0.02 % 2-18 mL every 8 ity of nebulizer 00:00: (eight) [place] solution 00 hours as Medical needed for Branch Wheezing or Shortness of Breath. ipratropium 2020-1 Yes [id number] .5mg Inhale 2.5 Univers 0.02 % 2-18 mL every 8 ity of nebulizer 00:00: (eight) [place] solution 00 hours as Medical needed for Branch Wheezing or Shortness of Breath. ipratropium 2020-1 Yes [id number] .5mg Inhale 2.5 Univers 0.02 % 2-18 mL every 8 ity of nebulizer 00:00: (eight) [place] solution 00 hours as Medical needed for Branch Wheezing or Shortness of Breath. ipratropium 2020-1 Yes [id number] .5mg Inhale 2.5 Univers 0.02 % 2-18 mL every 8 ity of nebulizer 00:00: (eight) [place] solution 00 hours as Medical needed for Branch Wheezing or Shortness of Breath. ipratropium 2019- Yes [id number] .5mg Inhale 2.5 Univers 0.02 % 2-18 mL every 8 ity of nebulizer 00:00: (eight) [place] solution 00 hours as Medical needed for Branch Wheezing or Shortness of Breath. ipratropium 2019- Yes [id number] .5mg Inhale 2.5 Univers 0.02 % 2-18 mL every 8 ity of nebulizer 00:00: (eight) [place] solution 00 hours as Medical needed for Branch Wheezing or Shortness of Breath. aspirin 81 2019-09 Yes [id number] 81mg Take 1 Univers mg chewable 1-11 tablet by ity of tablet 00:00: mouth [place] 00 daily. Medical Branch aspirin 81 2019-09 Yes [id number] 81mg Take 1 Univers mg chewable 1-11 tablet by ity of tablet 00:00: mouth [place] 00 daily. Medical Branch aspirin 81 2019-09 Yes [id number] 81mg Take 1 Univers mg chewable 1-11 tablet by ity of tablet 00:00: mouth [place] 00 daily. Medical Branch aspirin 81 2019-09 Yes [id number] 81mg Take 1 Univers mg chewable 1-11 tablet by ity of tablet 00:00: mouth [place] 00 daily. Medical Branch aspirin 81 2019-09- No [id number] 81mg Take 1 Univers mg chewable 1-11 08-15 tablet by it y of tablet 00:00: 00:00 mouth [place] 00 :00 daily. Medical Branch Immunizations Ordered Filled Immunization Date Status Comments [facility] e Immunization Name Name Pneumococcal 20 2022-06-30 Completed Universit y of Conjugate, PCV20 00:00:00 [facility] dical (Prevnar 20) Branch Influenza Virus 2022-06-30 Completed Universit y of Vaccine Quad IM, 00:00:00 [facility] dical Preserv and ABX Branch Free 6 MO-64 YRS Pneumococcal 20 2022-06-30 Completed Universit y of Conjugate, PCV20 00:00:00 [facility] dical (Prevnar 20) Branch Influenza Virus 2022-06-30 Completed Universit y of Vaccine Quad IM, 00:00:00 [facility] dical Preserv and ABX Branch Free 6 MO-64 YRS Pneumococcal 20 2022-06-30 Completed Universit y of Conjugate, PCV20 00:00:00 [place] Me dical (Prevnar 20) Branch Influenza Virus 2022-06-30 Completed Universit y of Vaccine Quad IM, 00:00:00 [place] Me dical Preserv and ABX Branch Free 6 MO-64 YRS Pneumococcal 20 2022-06-30 Completed Universit y of Conjugate, PCV20 00:00:00 [facility] dical (Prevnar 20) Branch Influenza Virus 2022-06-30 Completed Universit y of Vaccine Quad IM, 00:00:00 [place] Me dical Preserv and ABX Branch Free 6 MO-64 YRS Pneumococcal 20 2022-06-30 Completed Universit y of Conjugate, PCV20 00:00:00 [facility] dical (Prevnar 20) Branch Influenza Virus 2022-06-30 Completed Universit y of Vaccine Quad IM, 00:00:00 [facility] dical Preserv and ABX Branch Free 6 MO-64 YRS SARS-COV-2 COVID-19 2020-11-30 Completed Unive rsity of PFIZER VACCINE 00:00:00 [facility] SARS-COV-2 COVID-19 2020-11-30 Completed Unive rsity of PFIZER VACCINE 00:00:00 [facility] SARS-COV-2 COVID-19 2020-11-30 Completed Unive rsity of PFIZER VACCINE 00:00:00 [facility] SARS-COV-2 COVID-19 2020-11-30 Completed Unive rsity of PFIZER VACCINE 00:00:00 [facility] SARS-COV-2 COVID-19 2020-11-30 Completed Unive rsity of PFIZER VACCINE 00:00:00 [facility] SARS-COV-2 COVID-19 2020-11-30 Completed Unive rsity of PFIZER VACCINE 00:00:00 [facility] SARS-COV-2 COVID-19 2020-11-30 Completed Unive rsity of PFIZER VACCINE 00:00:00 [facility] SARS-COV-2 COVID-19 2020-11-30 Completed Unive rsity of PFIZER VACCINE 00:00:00 [facility] SARS-COV-2 COVID-19 2020-11-30 Completed Unive rsity of PFIZER VACCINE 00:00:00 [facility] SARS-COV-2 COVID-19 2020-11-30 Completed Unive rsity of PFIZER VACCINE 00:00:00 [facility] SARS-COV-2 COVID-19 2020-11-30 Completed Unive rsity of PFIZER VACCINE 00:00:00 [facility] SARS-COV-2 COVID-19 2020-11-09 Completed Unive rsity of PFIZER VACCINE 00:00:00 [facility] SARS-COV-2 COVID-19 2020-11-09 Completed Unive rsity of PFIZER VACCINE 00:00:00 [facility] Branch SARS-COV-2 COVID-19 2020-11-09 Completed Unive rsity of PFIZER VACCINE 00:00:00 [facility] SARS-COV-2 COVID-19 2020-11-09 Completed Unive rsity of PFIZER VACCINE 00:00:00 [facility] SARS-COV-2 COVID-19 2020-11-09 Completed Unive rsity of PFIZER VACCINE 00:00:00 [facility] SARS-COV-2 COVID-19 2020-11-09 Completed Unive rsity of PFIZER VACCINE 00:00:00 [facility] SARS-COV-2 COVID-19 2020-11-09 Completed Unive rsity of PFIZER VACCINE 00:00:00 [facility] SARS-COV-2 COVID-19 2020-11-09 Completed Unive rsity of PFIZER VACCINE 00:00:00 [facility] SARS-COV-2 COVID-19 2020-11-09 Completed Unive rsity of PFIZER VACCINE 00:00:00 [facility] SARS-COV-2 COVID-19 2020-11-09 Completed Unive rsity of PFIZER VACCINE 00:00:00 [facility] SARS-COV-2 COVID-19 2020-11-09 Completed Unive rsity of PFIZER VACCINE 00:00:00 [facility] Influenza Virus 2020-08-19 Completed Universit y of Vaccine Quad .5 mL 00:00:00 [place] [facility] IM 6+ MO Branch Influenza Virus 2020-08-19 Completed Universit y of Vaccine Quad .5 mL 00:00:00 [place] [facility] IM 6+ MO Branch Influenza Virus 2020-08-19 Completed Universit y of Vaccine Quad .5 mL 00:00:00 [place] [facility] IM 6+ MO Branch Influenza Virus [...] y of Vaccine Quad .5 mL 00:00:00 [place] Medical IM 6+ MO Branch Influenza Virus 2018-06-18 Completed Universit y of Vaccine Quad IM 3+ 00:00:00 [facility] Pneumococcal 2018-06-18 Completed University o f Polysaccharide, 00:00:00 [place] Med ical PPSV23 (PNEUMOVAX) Branch Influenza Virus 2018-06-18 Completed Universit y of Vaccine Quad IM 3+ 00:00:00 [facility] Pneumococcal 2018-06-18 Completed University o f Polysaccharide, 00:00:00 [place] Med ical PPSV23 (PNEUMOVAX) Branch Influenza Virus 2018-06-18 Completed Universit y of Vaccine Quad IM 3+ 00:00:00 [facility] Pneumococcal 2018-06-18 Completed University o f Polysaccharide, 00:00:00 [place] Med ical PPSV23 (PNEUMOVAX) Branch Influenza Virus 2018-06-18 Completed Universit y of Vaccine Quad IM 3+ 00:00:00 [facility] Pneumococcal 2018-06-18 Completed University o f Polysaccharide, 00:00:00 [place] Med ical PPSV23 (PNEUMOVAX) Branch Influenza Virus 2018-06-18 Completed Universit y of Vaccine Quad IM 3+ 00:00:00 [facility] Pneumococcal 2018-06-18 Completed University o f Polysaccharide, 00:00:00 [place] Med ical PPSV23 (PNEUMOVAX) Branch Influenza Virus 2018-06-18 Completed Universit y of Vaccine Quad IM 3+ 00:00:00 [facility] Pneumococcal 2018-06-18 Completed University o f Polysaccharide, 00:00:00 [place] Med ical PPSV23 (PNEUMOVAX) Branch Influenza Virus 2018-06-18 Completed Universit y of Vaccine Quad IM 3+ 00:00:00 [facility] Pneumococcal 2018-06-18 Completed University o f Polysaccharide, 00:00:00 [place] Med ical PPSV23 (PNEUMOVAX) Branch Influenza Virus 2018-06-18 Completed Universit y of Vaccine Quad IM 3+ 00:00:00 [facility] Pneumococcal 2018-06-18 Completed University o f Polysaccharide, 00:00:00 [place] Med ical PPSV23 (PNEUMOVAX) Branch Influenza Virus 2018-06-18 Completed Universit y of Vaccine Quad IM 3+ 00:00:00 [facility] Pneumococcal 2018-06-18 Completed University o f Polysaccharide, 00:00:00 [facility] ical PPSV23 (PNEUMOVAX) Branch Influenza Virus 2018-06-18 Completed Universit y of Vaccine Quad IM 3+ 00:00:00 [facility] Pneumococcal 2018-06-18 Completed University o f Polysaccharide, 00:00:00 [facility] ical PPSV23 (PNEUMOVAX) Branch Influenza Virus 2018-06-18 Completed Universit y of Vaccine Quad IM 3+ 00:00:00 [facility] Pneumococcal 2018-06-18 Completed University o f Polysaccharide, 00:00:00 [facility] ical PPSV23 (PNEUMOVAX) Branch Influenza Virus 2017-10-17 Completed Universit y of Vaccine Quad ID 00:00:00 [facility] ical 18-64 YRS [place] Influenza Virus 2017-10-17 Completed Universit y of Vaccine Quad ID 00:00:00 [facility] ica 1862 YRS [place] Influenza Virus 2017-10-17 Completed Universit y of Vaccine Quad ID 00:00:00 [facility] ical 18-64 YRS [place] Influenza Virus 2017-10-17 Completed Universit y of Vaccine Quad ID 00:00:00 [facility] ical 1862 YRS [place] Influenza Virus 2017-10-17 Completed Universit y of Vaccine Quad ID 00:00:00 [facility] ical 18-64 YRS Branch Influenza Virus 2017-10-17 Completed Universit y of Vaccine Quad ID 00:00:00 [facility] ical 1862 [facility] Influenza Virus 2017-10-17 Completed Universit y of Vaccine Quad ID 00:00:00 [facility] ical 18-64 YRS Branch Influenza Virus 2017-10-17 Completed Universit y of Vaccine Quad ID 00:00:00 [facility] ical 18-64 YRS [place] Influenza Virus 2017-10-17 Completed Universit y of Vaccine Quad ID 00:00:00 [place] Med ical 18-64 YRS Branch Influenza Virus 2017-10-17 Completed Universit y of Vaccine Quad ID 00:00:00 [facility] ical 18-64 YRS Branch Influenza Virus 2017-10-17 Completed Universit y of Vaccine Quad ID 00:00:00 [facility] ica 1862 YRS Branch Td 2017-02-25 Completed University of 00:00:00 [facility] Td 2017-02-25 Completed University of 00:00:00 [facility] Td 2017-02-25 Completed University of 00:00:00 [facility] Td 2017-02-25 Completed University of 00:00:00 [facility] Td 2017-02-25 Completed University of 00:00:00 [facility] Td 2017-02-25 Completed University of 00:00:00 [facility] Td 2017-02-25 Completed University of 00:00:00 [facility] Td 2017-02-25 Completed University of 00:00:00 [facility] Td 2017-02-25 Completed University of 00:00:00 [facility] Branch Td 2017-02-25 Completed University of 00:00:00 [facility] TD, NOS 2017-02-25 Completed University of 00:00:00 [facility] Vital Signs Vital Name Observation Time Observation Value Comments Source Systolic blood 2022-06-30 16:08:00 113 mm[Hg] Univer sity of pressure [facility] Diastolic blood 2022-06-30 16:08:00 73 mm[Hg] Unive rsity of [facility] Heart rate 2022-06-30 16:08:00 94 /min [facility] Body temperature 2022-06-30 16:08:00 [facility] height 2022-06-30 16:08:00 157.5 cm [facility] Body weight 2022-06-30 16:08:00 65.772 kg [facility] BMI 2022-06-30 16:08:00 26.52 kg/m2 [facility] Oxygen saturation in 2022-06-30 16:08:00 100 /min [facility] Arterial blood by [facility] Pulse oximetry Branch HEIGHT 2021-09-08 09:00:00 155 cm WEIGHT 2021-09-08 04:00:00 66.316 kg HEIGHT 2021-09-08 09:00:00 155 cm WEIGHT 2021-09-08 04:00:00 66.316 kg Systolic blood 2021-09-15 11:22:00 83 mm[Hg] [facility] Diastolic blood 2021-09-15 11:22:00 59 mm[Hg] [facility] Heart rate 2021-09-15 11:22:00 112 /min [facility] Body temperature 2021-09-15 11:22:00 35.56 Suzy [facility] Respiratory rate 2021-09-15 11:22:00 20 /min [facility] Oxygen saturation in 2021-09-15 11:22:00 94 /min [facility] Arterial blood by Medical Ce nter Pulse oximetry Body height 2021-09-08 09:00:00 155 cm [facility] Body weight 2021-09-08 04:00:00 66.316 kg [facility] BMI 2021-09-08 04:00:00 27.60 kg/m2 [facility] Procedures Procedure Date / Time Performing Clinician Source Performed FLU VACC ([id number]), 6 2022-06-30 16:41:22 Jahaira Diamond [facility] MO-66 YRS, .5ML, IM, QUAD Medica l Branch (FLUCELVAX) PNEUMOCOCCAL 20 CONJUGATE 2022-06-30 16:41:22 Jahaira Diamond [facility] (PREVNAR 20) VACCINE Medical [facility] HOME HEALTH - OTHER 2022-04-14 05:01:00 Doctor Unassigned, [facility] Name Medical Branch HOME HEALTH [facility] 2022-04-09 05:01:00 Doctor Unassigned, [facility] [place] Medical Branch HOME HEALTH - OTHER 2022-03-23 05:01:00 Doctor Unassigned, [facility] Name Medical Branch HOME HEALTH [facility] 2022-02-24 05:01:00 Doctor Unassigned, [facility] Name Medical Branch SARS-COV2/RT-PCR ([facility] & 2021-09-15 04:41:00 Kyra Shafefr [facility] Medical REF LABS) Center SARS-COV2/RT-PCR ([facility] & 2021-09-14 16:34:00 Nereida Ríos [facility] REF LABS) [facility] CBC W/PLT COUNT & AUTO 2021-09-14 05:32:00 Krish [facility] Medical DIFFERENTIAL [place] [facility] CBC W/PLT COUNT & AUTO 2021-09-14 05:32[facility] 2021-09-13 13:54[facility]00 [facility] & AUTO 2021-09-13 13:54:00 [facility] CBC W/PLT COUNT & AUTO 2021-09-13 13:54:00 [facility] ECG 12-LEAD 2021-09-12 17:48:43 Unknown, Hl7 Doctor [facility] ECG 12-LEAD 2021-09-12 17:48:43 Unknown, Hl7 Doctor [facility] VANCOMYCIN LEVEL, TROUGH 2021-09-12 13:07:00 [facility] CBC W/PLT COUNT & AUTO 2021-09-12 13:07:00 [facility] BASIC METABOLIC PANEL (7) 2021-09-12 13:07:[address] [facility] CBC W/PLT COUNT & AUTO 2021-09-12 13:07:00 [facility] LACTIC ACID, VENOUS 2021-09-12 13:06:00 [facility]OL[facility] (7) 2021-09-11 13:29:[address] [facility] MAGNESIUM 2021-09-11 13:29:00 [facility] VANCOMY[facility] LEVEL, TROUGH 2021-09-10 11:38:00 Josemanuel Martin [facility] Center CALCIUM 2021-09-10 05:55:00 aMrycarmen Lloyd [facility] CBC W/PLT COUNT & AUTO 2021-09-10 03:45:00 Dutch Belle I [facility] BASIC METABOLIC PANEL (7) 2021-09-10 03:45:00 [facility] CAL[facility], IONIZED 2021-09-10 03:45:00 [facility] PHOS[facility]ORUS 2021-09-10 03:45:00 [facility] W/[facility]T COUNT & AUTO 2021-09-10 03:45:00 [place] Belle [facility] MAGNESIUM 2021-09-10 03:45:00 [facility] ALB[facility]IN 2021-09-10 03:45:00 Marycarmen Lloyd [facility] VANCOMYCIN LEVEL, TROUGH 2021-09-09 19:17:00 Josemanuel Martin [facility] CBC W/PLT COUNT & AUTO 2021-09-09 03:33:00 [place] [facility] BASIC METABOLIC PANEL (7) 2021-09-09 03:33:00 [facility] CALCIUM, IONIZED 2021-09-09 03:33[facility]00 [facility] 2021-09-09 03:33:00 [facility] W/PLT COUNT & AUTO 2021-09-09 03:33:00 [place] Belle [facility] MAGNESIUM 2021-09-09 03:33:00 [facility] TRANSESOPHAGEAL ECHO 2021-09-08 11:20:43 [facility] COLOR-FLOW MAPPING 2021-09-08 06:45:11 Dalaxmi [facility] CONT WAVE PULSED DOPPLER 2021-09-08 06:45:11 Kyra Shaffer [facility] BLOOD CULTURE 2021-09-08 00:29:00 [facility] COMPREHENSIVE METABOLIC 2021-09-08 00:28:00 [facility] PANEL Center MAGNESIUM 2021-09-08 00:28:00 [facility] C-REACTIVE PROTEIN 2021-09-08 00:28:00 [facility] LACTIC ACID, VENOUS 2021-09-08 00:28:00 [facility] BLOOD GAS, VENOUS 2021-09-08 00:28:00 [facility] CBC W/PLT COUNT & AUTO 2021-09-08 00:27:00 [facility] BLOOD CULTURE 2021-09-08 00:27:00 [facility] CBC W/PLT COUNT & AUTO 2021-09-08 00:27:00 [facility] Plan of Care Planned Activity Planned Date Details Comments Source Future Scheduled 2027-02-25 DTAP/TDAP/TD VACCINES [facility] Test 00:00:00 (2 - Td or Tdap) [code Medic al Center = DTAP/TDAP/TD VACCINES (2 - Td or Tdap)] Future Scheduled 2027-02-25 DTAP/TDAP/TD VACCINES [facility] Test 00:00:00 (2 - Td or Tdap) [code Medic al Center = DTAP/TDAP/TD VACCINES (2 - Td or Tdap)] Future Scheduled 2027-02-25 DTAP/TDAP/TD VACCINES [facility] Test 00:00:00 (2 - Td or Tdap) [code Medic al Center = DTAP/TDAP/TD VACCINES (2 - Td or Tdap)] Future Scheduled 2027-02-25 DTAP/TDAP/TD VACCINES [facility] Test 00:00:00 (2 - Td or Tdap) [code Medic al Center = DTAP/TDAP/TD VACCINES (2 - Td or Tdap)] Future Scheduled 2023-06-18 PNEUMOCOCCAL VACCINE [facility] Test 00:00:00 0-64 YRS (2 of 2 - Medical C enter PPSV23) [code = PNEUMOCOCCAL VACCINE 0-64 YRS (2 of 2 - PPSV23)] Future Scheduled 2023-06-[address] [facility] Test 00:00:00 0-64 YRS (2 of 2 - Medical C enter PPSV23) [code = PNEUMOCOCCAL VACCINE 0-64 YRS (2 of 2 - PPSV23)] Future Scheduled 2022-09-[address] [facility] Test 00:00:00 (12+) [code = Medical Center DEPRESSION SCREENING (12+)] Future Scheduled 2022-09-17 FALLS RISK SCREENING [facility] Test 00:00:00 [code = FALLS RISK Medical C enter SCREENING] Future Scheduled 2022-09-[address] [facility] Test 00:00:00 Counseling and Medical Cente r Screening (12+) [code = Tobacco Cessation Counseling and Screening (12+)] Future Scheduled 2022-05-18 INFLUENZA VACCINE (#1) [facility] 00:00:00 [code = INFLUENZA Medical Ce nter VACCINE (#1)] Future Scheduled 2022-05-18 INFLUENZA VACCINE (#1) C [...] - Booster for Pfizer series)] Future Scheduled 2021-05-02 COVID-19 VACCINE (3 - [facility] 00:00:00 Booster for Pfizer Medical C enter series) [code = COVID-19 VACCINE (3 - Booster for Pfizer series)] Future Scheduled 2019-06-[address] [facility] Test 00:00:00 0-64 YRS (2 - PCV) Medical C enter [code = PNEUMOCOCCAL VACCINE 0-64 YRS (2 - PCV)] Future Scheduled 2019-06-18 PNEUMOCOCCAL 65+ YRS ([address] [facility] Test 00:00:00 - PCV) [code = Medical Cente r PNEUMOCOCCAL 65+ YRS (2 - PCV)] Future Scheduled 2007 SHINGLES VACCINES ([address] [facility] Test 00:00:00 2) [code = SHINGLES Medical Center VACCINES (1 of 2)] Future Scheduled 2007 SHINGLES VACCINES ([address] [facility] Test 00:00:00 2) [code = SHINGLES Medical Center VACCINES (1 of 2)] Future Scheduled 2007 SHINGLES VACCINES ([address] [facility] Test 00:00:00 2) [code = SHINGLES Medical Center VACCINES (1 of 2)] Future Scheduled 2007 SHINGLES VACCINES ([address] [facility] Test 00:00:00 2) [code = SHINGLES Medical Center VACCINES (1 of 2)] Future Scheduled 2002 Lipid panel (procedure) [facility] Test 00:00:00 [code = 07404456] Medical Ce nter Future Scheduled 2002 Lipid panel (procedure) [facility] Test 00:00:00 [code = 08410197] Medical Ce nter Future Scheduled 2002 Lipid panel (procedure) [facility] Test 00:00:00 [code = 76418425] Medical Ce nter Future Scheduled 2002 Lipid panel (procedure) [facility] Test 00:00:00 [code = 37326362] Medical Ce nter Future Scheduled 1999-03-18 MEDICARE [...] cervix Medical C enter (procedure) [code = 076936405] Future Scheduled 1978 Screening for malignant [facility] Test 00:00:00 neoplasm of cervix Medical C enter (procedure) [code = 496170920] Future Scheduled 1978 Screening for malignant [facility] Test 00:00:00 neoplasm of cervix Medical C enter (procedure) [code = 465026997] Future Scheduled 1978 Screening for malignant [facility] Test 00:00:00 neoplasm of cervix Medical C enter (procedure) [code = 410234997] Future Scheduled 1975 HEPATITIS C SCREENING CH [...] colon Medical Ce nter (procedure) [code = 518105360] Future Scheduled 1957 Screening for malignant [facility] Test 00:00:00 neoplasm of colon Medical Ce nter (procedure) [code = 217530489] Future Scheduled 1957 DXA SCAN [code = DXA [facility] Test 00:00:00 SCAN] [facility] Future Scheduled 1957 Screening for malignant [facility] Test 00:00:00 neoplasm of colon Medical Ce nter (procedure) [code = 250643828] Future Scheduled 1957 Screening for malignant [facility] Test 00:00:00 neoplasm of colon Medical Ce nter (procedure) [code = 532160781] Future Scheduled 1957 Sigmoidoscopy [code = [facility] 00[facility] Future Scheduled 1957 Screening for malignant [facility] Test 00:00:00 neoplasm of breast Medical C enter (procedure) [code = 669921195] Future Scheduled 1957 Screening for malignant [facility] Test 00:00:00 neoplasm of colon Medical Ce nter (procedure) [code = 153028168] Future Scheduled 1957 Screening for malignant [facility] Test 00:00:00 neoplasm of breast Medical C enter (procedure) [code = 882570830] Future Scheduled 1957 Screening for malignant [facility] Test 00:00:00 neoplasm of colon Medical Ce nter (procedure) [code = 579880474] Future Scheduled 1957 Screening for malignant [facility] Test 00:00:00 neoplasm of breast Medical C enter (procedure) [code = 888816587] Future Scheduled 1957 CT Colonography (combo) [facility] Test 00:00:00 [code = CT Colonography [facility] (combo)] Future Scheduled 1957 Screening for malignant [facility] Test 00:00:00 neoplasm of colon Medical Ce nter (procedure) [code = 924454659] Future Scheduled 1957 Screening for malignant [facility] Test 00:00:00 neoplasm of colon Medical Ce nter (procedure) [code = 633642555] Future Scheduled 1957 Screening for malignant [facility] Test 00:00:00 neoplasm of colon Medical Ce nter (procedure) [code = 310460245] Future Scheduled 1957 Screening for malignant [facility] Test 00:00:00 neoplasm of colon Medical Ce nter (procedure) [code = 501894506] Future Scheduled 1957 Sigmoidoscopy [code = [facility] 00:[facility]:00 Sigmoidoscopy] Medical Cente r Future Scheduled 1957 Screening for malignant [facility] Test 00:00:00 neoplasm of breast Medical C enter (procedure) [code = 132060733] Future Scheduled 1957 CT Colonography (combo) [facility] Test 00:00:00 [code = CT Colonography [facility] (combo)] Encounters Start End Encounter Admission Attending Care Care Encounter Source Date/Time Date/Time Type Type Clinicians Facility Department ID 2021-07-18 Emergency [facility] [id number] Univers 16:13:03 [facility] 2021-07-16 Emergency [facility] [id number] Univers 02:15:15 [facility] 2022-11-03 2022-11-03 Outpatient R JESS [facility] [id number] Univers 10:20:00 10:20:00 MAUREEN [facility] 2022-10-26 2022-10-26 Outpatient [facility] [id number] Univers 11:00:00 11:00:00 JOSEPH [facility] 2022-10-13 2022-10-13 Refshakeel [facility] 1.2.840.114 [id number] Univers 00:00:00 00:00:00 Maureen DOWLING 350.1.13.[address] [facility] 4.2.7.2.686 Ligia FRANKLIN [phone] [address] 2022-08-28 2022-08-28 [facility]Formerly [facility] 1.2.840.114 [id number] Univers 00:00:00 00:00:00 Maureen DOWLING 350.1.13.10 ity [facility] [place] [phone] [address] 2022-07-01 2022-07-01 RefFormerly [facility] 1.2.840.114 [id number] Univers 00:00:00 00:00:00 Maureen DOWLING 350.1.13.10 ity of [place] [phone] [address] 2022-06-30 2022-06-30 Outpatient R JAHAIRA DIAMOND [facility] [id number] Univers 11:00:00 12:00:57 [facility] 2022-06-30 2022-06-30 Office [facility] 1.2.840.114 [id number] [facility] 11:00:00 12:00:57 Visit Jahaira DOWL[place] 350.1.13.10 ity of [place] [phone] [address] 2022-06-13 2022-06-13 Tele[address] [facility] 1.2.840.114 [id number] Univers 00:00:00 00:00:00 Maureen DOWLING 350.1.13.10 ity [facility] [place] [phone] [address] 2022-05-01 2022-05-01 Outpatient [facility] [id number] Univers 10:20:00 13:39:46 MAUREEN ity [facility] 2022-05-01 2022-05-01 Telemedici [facility] 1.2.840.114 [id number] Univers 10:20:00 13:39:46 ne Visit Maureen DOWLING 350.1.13.10 ity [facility] 4[place] [phone] [address] 2022-05-01 2022-05-01 Outpatient R JESS [facility] [id number] [facility] 10:20:00 10:20:00 MAUREEN ity of [facility] 2022-04-14 2022-04-14 Orders Doctor SERGIO 1.2.840.114 [id number] Univers 00:00:00 00:00:00 Only Unassigned, LALITA 350.1.13.10 ity of [place] [facility] 4.2.7.2.686 Darci as [phone] [address] 2022-03-23 2022-03-23 Orders Doctor SERGIO 1.2.840.114 [id number] Univers 00:00:00 00:00:00 Only Unassigned, LALITA 350.1.13.10 ity of [place] [facility] 4.2.7.2.686 Darci as [phone] [address] 2022-02-27 2022-02-27 [facility] 1.2.840.114 [id number] Univers 00:00:00 00:00:00 Maureen DOWLING 350.1.13.10 ity of [place] [phone] [address] 2022-02-24 2022-02-24 Orders Doctor SERGIO 1.2.840.114 [id number] Univers 00:00:00 00:00:00 Only Unassigned, LALITA 350.1.13.10 ity of [place] [facility] 4.2.7.2.686 Darci as [phone] [address] 2022-02-16 2022-02-16 Outpatient R PUJA FOLEY [facility] 10 [id number] Univers 12:00:00 12:00:00 PUJA FOLEY i [facility] 2022-02-02 2022-02-02 Outpatient R PUJA FOLEY [facility] 10 [id number] Univers 09:30:00 09:30:00 PUJA FOLEY i ty [facility] 2022-02-01 2022-02-01 Outpatient R RUSS [facility] [id number] Univers 13:30:00 13:30:00 JOYCE kevin [facility] 2022-01-23 2022-01-23 [facility] 1.2.840.114 [id number] Univers 00:00:00 00:00:00 Maureen A [place] 350.1.13.10 ity of [place] [phone] [facility] 044 [facility] 2022-01-13 2022-01-13 Tele[address] [facility] 1.2.840.114 [id number] Univers 00:00:00 00:00:00 Maureen A [place] 350.1.13.10 ity of [place] [phone] [facility] 231 [facility] 2022-01-12 2022-01-12 [facility] 1.2.840.114 [id number] Univers 00:00:00 00:00:00 Maureen A [place] 350.1.13.10 ity of [place] [phone] [address] 2022-01-10 2022-01-10 [address] [facility] 1.2.840.114 [id number] Univers 00:00:00 00:00:00 Maureen A [place] 350.1.13.10 ity of [place] [phone] [address] 2022-01-09 2022-01-09 Telephone [facility] 1.2.840.114 [id number] Univers 00:00:00 00:00:00 Maureen A [place] 350.1.13.10 it[place] [phone] [address] 2022-01-03 2022-01-03 Outpatient R RUSS [facility] [id number] Univers 10:00:00 10:00:00 JOYCE kevin [facility] 2022-01-02 2022-01-02 Telephone [facility] 1.2.840.114 [id number] Univers 00:00:00 00:00:00 Maureen DOWLING 350.1.13.10 ity of [place] 4[place]7.2.[place] [phone] [facility] 044 [facility] 2021-12-30 2021-12-30 Refill [facility]TU[facility] 1.2.840.114 [id number] Univers 00:00:00 00:00:00 Maureen DOWLING 350.1.13.10 ity of [place] 4[place] [phone] [facility] 231 [facility] 2021-12-26 2021-12-26 Orders Doctor SERGIO 1.2.840.114 [id number] Univers 00:00:00 00:00:00 Only Unassigned, LALITA 350.1.13.10 ity of [place] [facility] 4.2.7.2.686 Darci as [phone] [address] 2021-12-16 2021-12-16 Outpatient R PUJA FOLEY [facility] 10 [id number] Univers 11:30:00 11:30:00 PUJA FOLEY i ty [facility] 2021-12-01 2021-12-01 Outpatient R JESS [facility] [id number] Univers 15:00:00 15:00:00 MAUREEN brown [facility] 2021-12-01 2021-12-01 Outpatient R JESS [facility] [id number] Univers 11:20:00 14:15:43 MAUREEN brown [facility] 2021-12-01 2021-12-01 Telemedici [facility]TU[facility] 1.2.840.114 [id number] Univers 11:20:00 14:15:43 ne Visit Maureen DOWLING 350.1.13.10 ity of [place] [phone] [address] 2021-11-15 2021-11-15 Telephone [facility]TU[facility] 1.2.840.114 [id number] Univers 00:00:00 00:00:00 Maureen DOWLING 350.1.13.10 ity of [place] [phone] [address] 2021-09-19 2021-09-19 Outpatient R [facility] [id number] Univers 00:00:00 00:00:00 ity of [facility] 2021-09-19 2021-09-19 Orders Doctor HILL 1.2.840.114 [id number] Univers 00:00:00 00:00:00 Only Unassigned, LALITA 350.1.13.10 ity of [place] [facility] 4.2.7.2.686 Darci as [phone] [address] 2021-09-07 2021-09-15 Hospital UR Sarai Alva [facility] [id number] 21:52:00 13:08:00 Encounter Kyra Shaffer [facility] Nereida Ríos 2021-09-07 2021-09-15 Inpatient UR ESTER [facility] Cardiology [id number] [facility] 21:52:00 13:08:00 [facility] 2021-09-12 2021-09-12 Orders [facility] [id number] 00:00:00 00:00:00 Only [facility] 2021-09-08 2021-09-08 Outpatient [facility] [id number] [facility] 00:00:00 23:59:00 Frieda 2021-08-23 2021-08-24 [facility] 1.2.840.114 [id number] Univers 18:18:00 02:43:00 Uyen JOSEY 350.1.13.10 i ty of [place] [phone] [facility] [address] 2021-08-24 2021-08-24 Letter SERGIO Antonio 1.2.840.114 [id number] Univers 00:00:00 00:00:00 (Out) Savanah CELIS 350.1.13.10 it y of [facility] 4.2.7.2.686 Darci as [phone] [facility] [address] 2021-08-23 2021-08-23 [facility] 1.2.840.114 [id number] Univers 17:08:18 17:53:20 Care [facility] 350.1.13.10 it y of [place] 4.2.7.2.686 Darci as JOSUE?BLEA [phone] [facility] [address] MEDICAL OFFICE BUILDING 2021-08-23 2021-08-23 [facility] [id number] Univers 17:00:00 17:53:20 [facility] 2021-08-23 2021-08-23 Outpatient R [facility] ERT [id number] Univers 17:00:00 17:53:20 [facility] 2021-08-23 2021-08-23 Outpatient [facility] [id number] Univers 17:00:00 17:00:00 [facility] 2021-08-23 2021-08-23 Telephone [facility] 1.2.840.114 [id number] Univers 00:00:00 00:00:00 Maureen DOWL[place] 350.1.13.10 ity [facility] 4.2.7.2.[place] [facility] [phone] Nd kathya [facility] [address] BUILDING 2021-08-02 2021-08-02 Outpatient R JESS [facility] [id number] Univers 10:20:00 13:19:18 MAUREEN [facility] 2021-08-02 2021-08-02 Telemedici [facility]TU[facility] 1.2.840.114 [id number] Univers 08:30:30 13:19:18 ne Visit Maureen A JOSEY 350.1.13.10 ity of [facility] 4.2.7.2.[place] [phone] Nd dical NAL 231 [facility] 2021-07-08 2021-07-08 Refshakeel MercadoTUBA CITY [facility] 1.2.840.114 [id number] Univers 00:00:00 00:00:00 Maureen A [place] 350.1.13.10 ity of [place] [phone] Nd dical nal 231 [facility] 2021-06-30 2021-06-[address] [facility] 1.2.840.114 [id number] Univers 11:26:48 12:14:06 Visit Puja Dowling 350.1.13.10 i ty of [place] [phone] Nd dicdavid nal 085 [facility] 2021-06-30 2021-06-30 Outpatient R PUJA FOLEY [facility] 10 [id number] Univers 11:30:00 11:30:00 PUJA FOLEY i ty [facility] 2021-06-24 2021-06-24 Outpatient R PUJA FOLEY [facility] 10 [id number] Univers 13:20:00 13:20:00 PUJA FOLEY i ty [facility] 2021-06-17 2021-06-17 Outpatient R GLADYS [facility] [id number] Univers 15:20:00 15:20:00 JESSICA brown [facility] 2021-05-26 2021-05-26 Outpatient R JESS [facility] [id number] Univers 14:00:00 14:00:00 MAUREEN brown [facility] 2021-05-20 2021-05-20 Outpatient R JESS [facility] [id number] Univers 13:40:00 13:40:00 MAUREEN brown [facility] 2021-05-18 2021-05-18 Latonia L[facility] 1.2.840.114 [id number] Univers 00:00:00 00:00:00 Payton [facility] 350.1.13.10 it y of [place] 4.2.7.2.686 Darci as Josue?Blea [phone] [facility] [address] Medical Office [facility] 2021-05-03 2021-05-06 [facility] Aneudy Gleason [facility] 1.2.8 40.114 [id number] Univers 15:35:00 18:48:00 Encounter Reji Escobar [place] 350.1.13.10 ity of [place] [id number] [facility] [address] 2021-05-06 2021-05-06 Outpatient R JESS [facility] [id number] Univers 10:40:00 10:40:00 MAUREEN ity of [facility] 2021-05-03 2021-05-03 Telephone [facility] 1.2.840.114 [id number] [facility] 00:00:00 00:00:00 Maureen Festus Josey 350.1.13.10 ity of [place] [phone] [address] 2021-04-28 2021-04-28 Office [facility] 1.2.840.114 [id number] Univers 09:07:52 14:36:33 Visit Maureen Dow[place] 350.1.13.10 ity of [place] [phone] [facility] 231 [facility] 2021-04-28 2021-04-28 [address] [facility] 1.2.840.114 [id number] 09:07:52 14:36:33 Visit Maureen [place] 350.1.13.10 [place] 4.2.7.2.686 Professio [phone] [address] 2021-04-28 2021-04-28 Outpatient R JESS [facility] [id number] Univers 09:20:00 09:20:00 MAUREEN brown of [facility] 2021-04-28 2021-04-28 Orders Doctor SERGIO 1.2.840.114 [id number] Univers 00:00:00 00:00:00 Only Unassigned, LALITA 350.1.13.10 ity of [place] [facility] 4.2.7.2.686 Darci as [phone] [facility] [address] 2021-04-17 2021-04-17 Refill [facility] 1.2.840.114 [id number] Univers 00:00:00 00:00:00 Maureen Dowling [id number] [id number] [phone] [facility] [address] [facility] 2021-01-11 2021-01-11 [facility] 1.2.840.114 [id number] Univers 11:59:43 23:59:00 Encounter Joyce Dowling [id number] [id number] [phone] [facility] [address] 2021-01-11 2021-01-11 Outpatient R [facility] [id number] Univers 00:00:00 00:00:00 JOYCE brown [facility] 2020-12-28 2020-12-28 Office [facility] 1.2.840.114 [id number] Univers 15:25:38 16:39:23 Visit Joyce Dowling [id number] [id number] [phone] [place] [address] [facility] 2020-12-28 2020-12-28 Outpatient R [facility] [place] [id number] Univers 15:30:00 15:30:00 JOYCEKIZZY brown [facility] 2020-12-23 2020-12-23 Office [facility] 1.2.840.114 [id number] Univers 13:22:15 14:09:20 Visit Puja Dowling 350.1.13.10 i [place] [phone] Nd dical nal [address] 2020-12-23 2020-12-23 Outpatient R PUJA FOLEY [facility] [place] 10 [id number] Univers 13:30:00 13:30:00 PUJA FOLEY i ty of [facility] 2020-12-21 2020-12-21 [facility] 1.2.621.946 [id number] Univers 13:21:45 23:59:00 Encounter Melanie Winterton 350.1.13.10 ity of [place] [phone] [facility] [address] 2020-12-21 2020-12-21 [facility] 1.2.636.600 [id number] Univers 13:00:00 13:20:00 Encounter Melanie Dowling 350.1.13.10 ity of [place] [phone] [facility] [address] 2020-12-21 2020-12-21 Outpatient R [facility] [id number] Univers 00:00:00 00:00:00 MELANIE brown o f [facility] 2020-12-21 2020-12-21 [facility] 1.2.840.114 [id number] Univers 00:00:00 00:00:00 [facility] 350.1.13.10 i ty of [place] 4.2.7.2.686 [place]arc[place] Professio [phone] Nd dical nal [address] One 2020-12-20 2020-12-20 [facility] 1.2.840.114 [id number] Univers 00:00:00 00:00:00 Maureen Dowling 350.1.13.10 it[place] [phone] Nd dical nal [address] 2020-12-09 2020-12-09 Outpatient R PUJA FOLEY [facility] 10 [id number] Univers 14:00:00 14:00:00 PUJA FOLEY i ty of [facility] 2020-12-09 2020-12-09 [facility] 1.2.840.114 [id number] Univers 00:00:00 00:00:00 Maureen Dowling 350.1.13.10 ity of [place] [phone] [facility] 2020-12-09 2020-12-09 Orders Doctor SERGIO 1.2.840.114 [id number] Univers 00:00:00 00:00:00 Only Unassigned, LALITA 350.1.13.10 ity of [place] [facility] 4.2.7.2.686 [place]arc[place] as [phone] [address] 2020-11-30 2020-11-30 Outpatient R LINDA [facility] [place] [id number] Univers 11:10:00 11:10:00 YARELY ity of [facility] 2020-11-24 2020-11-24 Orders Doctor SERGIO 1.2.840.114 [id number] Univers 00:00:00 00:00:00 Only Unassigned, LALITA 350.1.13.10 ity of [place] [facility] 4.2.7.2.686 Darci as [phone] [address] 2020-11-19 2020-11-19 Latonia [facility] 1.2.840.114 [id number] Univers 00:00:00 00:00:00 Maureen Dowling 350.1.13.10 it[place] of [place] [phone] Nd dical nal 231 [facility] 2020-11-18 2020-11-18 Admitting Coordinator 2, Adc Lab [facility] 1.2.840.114 [id number] Univers 14:52:26 15:07:26 Visit Melanie Rivas 350.1.13.10 it[place] of [place] [phone] Nd dical nal 353 [facility] 2020-11-18 2020-11-18 Office [facility] 1.2.840.114 [id number] Univers 13:56:16 14:49:22 Visit Melanie Dowling 350.1.13.10 it[place] of [place] [phone] Nd dical [facility] 044 [facility] 2020-11-18 2020-11-18 [facility] [id number] Univers 14:00:00 14:00:00 MELANIE brown o [facility] 2020-11-18 2020-11-18 [facility] [id number] Univers 10:40:00 10:40:00 MAUREEN brown [facility] 2020-11-15 2020-11-15 Outpatient R ESTELA [facility] [id number] Univers 13:00:00 13:00:00 MELANIE cortez [facility] 2020-11-10 2020-11-10 Telephone [facility] 1.2.840.114 [id number] Univers 00:00:00 00:00:00 Maureen Dowling 350.1.13.10 ity [facility] 4[place].2.[place] [phone] [facility] 231 [facility] 2020-11-09 2020-11-09 Outpatient R LINDA [facility] [id number] Univers 11:10:00 11:10:00 YARELY ity of [facility] 2020-11-04 2020-11-04 Outpatient R PUJA FOLEY [facility] 10 [id number] Univers 11:20:00 11:20:00 PUJA FOLEY i ty of [facility] 2020-10-24 2020-10-24 Orders Doctor HILL 1.2.840.114 [id number] Univers 00:00:00 00:00:00 Only Unassigned, LALITA 350.1.13.10 ity of [place] [facility] 4.2.7.2.686 Darci as [phone] [address] 2020-10-132020-10-13 Urgent Provider, [facility] 1.2.840.114 [id number] Univers 13:49:15 14:09:15 Care Maureen Mercado [facility] 350.1.1 3.10 ity of [place] 4.2.7.2.686 [place] Profess[place] [phone] [address] Office [address] One 2020-10-13 2020-10-13 Outpatient R [facility] [id number] Univers 14:00:00 14:00:00 ity of [facility] 2020-10-13 2020-10-13 Letter Doctor SERGIO 1.2.840.114 [id number] Univers 00:00:00 00:00:00 (Out) Unassigned, LALITA 350.1.13.10 ity of [place] [facility] 4.2.7.2.686 [place]arc[place] as [phone] [address] 2020-10-13 2020-10-13 Letter Doctor SERGIO 1.2.840.114 [id number] Univers 00:00:00 00:00:00 (Out) Unassigned, LALITA 350.1.13.10 ity of [place] [facility] 4.2.7.2.686 Darci as [phone] [address] 2020-10-04 2020-10-04 Telephone Mercado, [facility] 1.2.840.114 [id number] Univers 00:00:00 00:00:00 Maureen Dowling 350.1.13.10 it[place] of [place] [phone] [address] 2020-09-23 2020-09-23 Refill [facility] 1.2.840.114 [id number] Univers 00:00:00 00:00:00 Maureen Dowling 350.1.13.10 ity of [place] [phone] [address] 2020-09-23 2020-09-23 Telephone Mercado, [facility] 1.2.840.114 [id number] Univers 00:00:00 00:00:00 Maureen Dowling 350.1.13.10 ity of [place] [phone] [facility] 231 [facility] 2020-09-21 2020-09-21 Refill [facility] 1.2.840.114 [id number] Univers 00:00:00 00:00:00 Maureen Dowling 350.1.13.10 ity of [place] [phone] [facility] 231 [facility] 2020-09-16 2020-09-16 [facility] [id number] Univers 00:00:00 00:00:00 MAUREEN ity of [facility] 2020-09-11 2020-09-11 Telephone [facility] 1.2.840.114 [id number] Univers 00:00:00 00:00:00 Maureen Dowling 350.1.13.10 ity of [place] [phone] [address] 2020-09-01 2020-09-01 Telephone [facility] 1.2.840.114 [id number] Univers 00:00:00 00:00:00 Maureen Dowling 350.1.13.10 ity of [place] [phone] [address] 2020-08-25 2020-08-25 Orders Doctor SERGIO 1.2.840.114 [id number] Univers 00:00:00 00:00:00 Only Unassigned, LALITA 350.1.13.10 ity of [place] [facility] 4.2.7.2.686 Darci as [phone] [address] 2020-08-19 2020-08-19 Admitting Coordinator Giuliana, Adc Lab Main [facility] 1.2.8 40.114 [id number] Univers 12:17:47 12:32:47 Visit Maureen Mercado 350.1. 13.10 ity of [place] [phone] [facility] 353 [facility] 2020-08-19 2020-08-19 Office [facility] 1.2.840.114 [id number] Univers 10:26:09 12:11:50 Visit Maureen Dowling 350.1.13.10 ity of [place] [phone] [facility] 231 [facility] 2020-08-19 2020-08-19 [id number] Univers 10:20:00 10:20:00 MAUREEN ity of [facility] 2020 2020 Letter Samantha Barragan 1.2.187.722 [id number] Univers 00:00:00 00:00:00 (Out) Froilan Celis 350.1.13.10 it y of [facility] 4.2.7.2.686 [place]arci as [phone] [facility] [address] 2020-07-28 2020-07-28 Telephone [facility] 1.2.840.114 7 [id number] Univers 00:00:00 00:00:00 Maureen Dowling 350.1.13.10 it[place] of [place] [phone] [facility] 231 [facility] 2020-07-28 2020-07-28 Transition Berta Briggs 1.2.840.114 [id number] Univers 00:00:00 00:00:00 of Care Debby M Parsons 350.1.13.10 i ty of [place] 4.2.7.2.[place] [phone] [facility] [address] 2020-07-17 2020-07-27 Hospital Christina Lowe 1.2.84 0.114 [id number] Univers 14:03:00 18:45:00 Encounter Alex Mccarty 350.1.13.10 ity of [facility] 4.2.7.2.686 [place] Betancourt [phone] Medical [address] 2020-06-22 2020-06-22 Telephone [facility] 1.2.840.114 7 [id number] Univers 00:00:00 00:00:00 Maureen A [place] 350.1.13.10 ity of [place] [phone] [facility] 231 [facility] 2020-06-10 2020-06-10 [facility] 1.2.840.114 7 [id number] Univers 00:00:00 00:00:00 Maureen A [place] 350.1.13.10 ity of [place].2.[place] [phone] [facility] 044 [facility] 2020-05-21 2020-05-21 [facility] 1.2.840.114 [id number] Univers 00:00:00 00:00:00 Maureen A [place] 350.1.13.10 ity of [place].2.[place] [phone] [address] 2020-05-11 2020-05-11 Formerly [facility] 1.2.840.114 [id number] Univers 00:00:00 00:00:00 Maureen A [place] 350.1.13.10 ity of [place] [phone] [address] 2020-05-06 2020-05-06 Outpatient R JUAN FRANCISCO, [facility] [id number] Univers 12:30:00 12:30:00 MACHO ity of [facility] 2020-05-06 2020-05-06 Orders Doctor SERGIO 1.2.840.114 [id number] Univers 00:00:00 00:00:00 Only Unassigned, LALITA 350.1.13.10 ity of [place] [facility] 4.2.7.2.686 Darci as [phone] [address] 2020-05-03 2020-05-03 Admitting Coordinator Only, Adc Test [facility] 1.2.840. 114 [id number] Univers 11:20:15 11:35:15 Visit Macho Chicas 350.1.13. 10 ity of [place].2.[place] [phone] [address] 2020-05-03 2020-05-03 Outpatient R JUAN FRANCISCO [facility] [id number] Univers 11:15:00 11:15:00 MACHO ity of [facility] 2020-04-29 2020-04-29 Office [facility] 1.2.840.114 [id number] Univers 15:25:10 16:10:56 Visit Puja Dowling 350.1.13.10 i ty of [place].2.[place] [phone] [facility] 085 [facility] 2020-04-29 2020-04-29 Outpatient R PUJA FOLEY [facility] 10 [id number] Univers 15:20:00 15:20:00 PUJA FOLEY i ty of [facility] 2020-04-28 2020-04-28 Telephone [facility] 1..840.114 7 [id number] Univers 00:00:00 00:00:00 Maureen A [place] 350.1.13.10 ity of [place] [phone] [facility] 231 [facility] 2020-04-26 2020-04-26 Telephone [facility] 1.2.840.114 7 [id number] Univers 00:00:00 00:00:00 Maureen A [place] 350.1.13.10 ity of [place] 4[place].2.[place] [phone] [facility] 044 [facility] 2020-04-22 2020-04-22 [address] [facility] 1.2.840.114 [id number] Univers 00:00:00 00:00:00 Maureen A Health 350.1.13.10 ity of [place] 4.2.7.2.686 [place]arci as Professio [phone] [address] Office [address] One 2020-04-12 2020-04-12 Office [facility] 1.2.840.114 [id number] Univers 14:42:43 15:55:04 Visit Maureen Dowling 350.1.13.10 ity of [place]2.[place] [phone] [address] 2020-04-12 2020-04-12 [facility] [id number] Univers 14:40:00 14:40:00 MAUREEN ity of [facility] 2020-04-12 2020-04-12 Orders Doctor SERGIO 1.2.840.114 [id number] Univers 00:00:00 00:00:00 Only Unassigned, LALITA 350.1.13.10 ity of [place] [facility] 4.2.7.2.686 Darci as [phone] [address] 2020-04-12 2020-04-12 Letter Doctor SERGIO 1.2.840.114 [id number] Univers 00:00:00 00:00:00 (Out) Unassigned, LALITA 350.1.13.10 ity of [place] [facility] 4.2.7.2.686 Darci as [phone] [address] 2020-04-09 2020-04-09 Telephone [facility] 1.2.840.114 [id number] Univers 00:00:00 00:00:00 Maureen Dowling 350.1.13.10 it[place] of [place] [phone] [address] 2020-04-06 2020-04-06 Refill [facility] 1.2.840.114 [id number] Univers 00:00:00 00:00:00 Maureen Winterton 350.1.13.10 ity of [place].2.[place] [phone] [address] 2020-03-08 2020-03-08 Out[facility] [id number] Univers 15:40:00 15:40:00 MAUREEN ity [facility] 2020-02-26 2020-02-26 Outpatient [facility] [id number] Univers 10:00:00 10:00:00 MAUREEN ity [facility] 2020-01-30 2020-01-30 Refill [facility] .2.840.114 [id number] Univers 00:00:00 00:00:00 Maureen A [place] 350.1.13.10 it[place] of [place].2.[place] [phone] [address] 2020-01-12 2020-01-12 Outpatient [facility] [id number] Univers 09:40:00 09:40:00 [facility] 2020-01-09 2020-01-09 [facility] Mercado, [facility] ..840.114 [id number] Univers 00:00:00 00:00:00 Maureen A [place] 350.1.13.10 ity of [place] 4[place].2.[place] [phone] [address] 2019-12-23 2019-12-23 Outpatient R [facility] [id number] [id number] Univers 10:20:00 10:20:00 MAUREEN ity [facility] 2019-12-23 2019-12-23 Telephone [facility] ..840.114 7 [id number] Univers 00:00:00 00:00:00 Maureen Mortensen [place] 350.1.13.10 ity of [place] 4[place].2.[place] [phone] [address] 2019-12-01 2019-12-01 Office [facility] 1.2.840.114 [id number] Univers 13:34:40 14:14:40 Visit Tio Dowling 350.1.13.10 ity of [place].2.[place] [phone] Nd dical nal 092 [facility] 2019-12-01 2019-12-01 Outpatient R TIO MERRITT [facility] [id number] Univers 13:40:00 13:40:00 TIO MERRITT ity of [facility] 2019-11-17 2019-11-17 Refill [facility] 1.2.840.114 [id number] Univers 00:00:00 00:00:00 Maureen A [place] 350.1.13.10 ity of [place]2.[place] [phone] [facility] 044 [facility] 2019-11-03 2019-11-03 Telephone [facility] 1.2.840.114 7 [id number] Univers 00:00:00 00:00:00 Maureen A [place] 350.1.13.10 ity of [place].2.[place] [phone] [facility] 231 [facility] 2019-11-03 2019-11-03 [facility] 1.2.840.114 7 [id number] Univers 00:00:00 00:00:00 Maureen A [place] 350.1.13.10 ity of [place] 4[place].2.[place] [phone] [facility] 231 [facility] 2019-10-24 2019-10-24 [facility] 1.2.840.114 [id number] Univers 00:00:00 00:00:00 Maureen A [place] 350.1.13.10 ity of [place] 4[place].2.[place] [phone] [address] 2019-10-24 2019-10-24 Orders Doctor SERGIO 1.2.840.114 [id number] Univers 00:00:00 00:00:00 Only Unassigned, LALITA 350.1.13.10 ity of [place] [facility] 4.2.7.2.686 Darci as [phone] [address] 2019-10-14 2019-10-14 Admitting Coordinator 2, Adc Lab [facility] 1.2.840.114 [id number] Univers 14:35:20 14:50:20 Visit Maureen Mercado 350.1. 13.10 ity of [place].2.[place] [phone] [facility] 353 [facility] 2019-10-14 2019-10-[address] [facility] 1.2.840.114 [id number] Univers 12:53:29 14:25:39 Visit Maureen Dowling 350.1.13.10 ity of [place].2.[place] [phone] Nd dical nal 231 [facility] 2019-10-14 2019-10-14 Orders Doctor SERGIO 1.2.840.114 [id number] Univers 00:00:00 00:00:00 Only Unassigned, LALITA 350.1.13.10 ity of [place] [facility] 4.2.7.2.686 Darci as [phone] [facility] [address] 2019-08-17 2019-08-21 Inpatient X ANYI [facility] [id number] Univers 16:40:37 18:12:00 ity of [facility] 2019-05-01 2019-05-01 Telephone Berta Mercado 1.2.840.114 [id number] Univers 00:00:00 00:00:00 Maureen Parsons 350.1.13.10 ity of [place].2.[place] [phone] [facility] [address] 2019-05-01 2019-05-[address] [facility] 1.2.840.114 [id number] Univers 00:00:00 00:00:00 Maureen Dowling 350.1.13.10 it[place] of [place] [phone] [facility] 044 [facility] 2019-04-11 2019-04-11 Telephone Jess NCYAZMIN 1.2.840.114 [id number] Univers 00:00:00 00:00:00 Maureen Dowling 350.1.13.10 it[place] of [place] [phone] [facility] 231 [facility] 2019-04-10 2019-04-[address] [facility] 1.2.840.114 [id number] Univers 00:00:00 00:00:00 Maureen Dowling 350.1.13.10 ity of [place] [phone] [facility] 231 [facility] 2019-04-10 2019-04-10 Refill [facility] 1.2.840.114 [id number] Univers 00:00:00 00:00:00 Maureen Dowling 350.1.13.10 ity of [place] [phone] [address] Results Test Description Test Time Test Comments Results Result Comments Source SARS-CoV2/RT-PCR (Asymptomatic ONLY) 2021-09-15 16:14:42 Test Item Value Reference Range Interpretation Comme nts SARS-COV2/RT-PCR (test code = Negative Negative 64072-4) JUANIS (test code = JUANIS) Negative result [...] Hernandez SARS-CoV-2 assay. Fact Sheet for Healthcare Providers:https://www.Casengo kareem/schuyler/RT SARS-CoV-2 HCP Fact Sheet 51-928934.pdf Fact Sheet for Healthcare Patients:https://www.[employer] tt/schuyler/RT SARS-CoV-2 Patient Fact Sheet EN 51-270198W9.pdf Lab Interpretation (test code = Normal 66038-3) [facility]omatic ONLY[facility]2021-09-15 16:14:42 Test Item Value Reference Range Interpretation Comments SARS-COV2/RT-PCR (test Negative Negative code = 62222-7) JUANIS (test code = JUANIS) Negative result [...] the Act. Testing was performed using the [employer] SARS-CoV-2 assay. Fact Sheet for Healthcare Providers:https://www.toney santoshernandez/schuyler/RT SARS-CoV-2 HCP Fact Sheet 51-804446.pdf Fact Sheet for Healthcare Patients:https://www.juan moreSeymour Innovative/schuyler/RT SARS-CoV-2 Patient Fact Sheet EN 51-302217M2.pdf Lab Interpretation Normal (test code = 12152-5) [facility] (Asymptomatic ONLY)2021-09-15 16:14:42 Test Item Value Reference Range Interpretation Comments SARS-COV2/RT-PCR (test Negative Negative code = 81724-9) JUANIS (test code = JUANIS) Negative result [...] Healthcare Providers:https://www.toney ray/schuyler/RT SARS-CoV-2 HCP Fact Sheet 51-017829.pdf Fact Sheet for Healthcare Patients:https://www.juan lawsonRoyalCactus/schuyler/RT SARS-CoV-2 Patient Fact Sheet EN 51-379436X7.pdf Lab Interpretation Normal (test code = 77832-6) [facility])2021-09-15 16:14:42 Test Item Value Reference Range Interpretation Comments SARS-COV2/RT-PCR (test code = Negative Negative 9498722) Negative result for this test determines that [...] 564(g) of the Act.Testing was performed using [employer] SARS-CoV-2 assay.Fact Sheet for Healthcare Providers:https://www.Solaicx/schuyler/RT SARS-CoV-2 HCP Fact Sheet 51- 390830.pdfFact Sheet for Healthcare Patients:https://www.Solaicx/schuyler/RT SARS-CoV-2 Patient Fact Sheet EN 51-823763U6.pdfSARS-COV2/RT-PCR ([facility])2021-09-15 11:07:01 Test Item Value Reference Range Interpretation Comments SARS-COV2/RT-PCR (test code = Negative Negative 6469588) Negative result for this test determines that [...] 564(g) of the Act.Testing was performed using [employer] SARS-CoV-2 assay.Fact Sheet for Healthcare Providers:https://www.[employer].hernandez/schuyler/RT SARS-CoV-2 HCP Fact Sheet 51- 059883.pdfFact Sheet for Healthcare Patients:https://www.[employer].Se[employer]/schuyler/RT SARS-CoV-2 Patient Fact Sheet EN 51-576436O8.pdfCBC with platelet count + automated vuqz1278-57-06 06:22:16 Test Item Value Reference Range Interpretation Comments WBC (test code = 6690-2) 13.2 See_Comment H [A utomated message] The system [employer] generated this result transmitted ref erence range: 3.5 - 10 .5 K/L. The refe rence range was not u sed to interpret this result as normal/abnor mal. RBC (test code = 789-8) 3.59 See_Comment L [Au tomated message] The system [employer] generated this result transmitted ref erence range: 3.93 - 5 .22 M/L. The refe rence range was not u sed to interpret this result as normal/abnor mal. MCHC (test code = 786-4) 33.0 See_Comment L [A utomated message] The system [employer] generated this result transmitted ref erence range: [...] code = 369 See_Comment [Aut omated message] 317-3) The system [employer] generated this result transmitted ref erence range: 150 - 45 0 K/CU MM. The referen ce range was not u sed to interpret this result as normal/abnor mal. MPV (test code = 9.8 fL 9.4-12.3 94110-9) nRBC (test code = 413) 0 See_Comment [Aut omated message] The system [employer] generated this result transmitted ref erence range: [...] H [Aut omated message] 670) The system [employer] generated this result transmitted ref erence range: 1.56 - 6 .13 K/L. The refe rence range was not u sed to interpret this result as normal/abnor mal. # Lymphs (test code = 3.72 See_Comment [Auto mated message] 414) The system [employer] generated this result transmitted ref erence range: 1.18 - 3 .74 K/L. The refe rence range was not u sed to interpret this result as normal/abnor mal. # Monos (test code = 1.11 See_Comment H [Autom ated message] 415) The system [employer] generated this result transmitted ref erence range: 0.24 - 0 .36 K/L. The refe rence range was not u sed to interpret this result as normal/abnor mal. # Eos (test code = 416) 0.33 See_Comment [Au tomated message] The system Medig[employer] generated this result transmitted ref erence range: 0.04 - 0 .36 K/L. The refe rence range was not u sed to interpret this result as normal/abnor mal. # Baso (test code = 417) 0.04 See_Comment [A utomated message] The system [employer] generated this result transmitted ref erence range: 0.01 - 0 .08 K/L. The refe rence range was not u sed to interpret this result as normal/abnor mal. Immature 1 % 0-1 Granulocytes-Relative (test code = 2801) Lab Interpretation (test Abnormal code = 09749-0) [facility] with platelet count + automated [id number] 06:22:16 Test Item Value Reference Range Interpretation Comments WBC (test code = 6690-2) 13.2 See_Comment H [A utomated message] The system Medig[employer] generated this result transmitted ref erence range: 3.5 - 10 .5 K/L. The refe rence range was not u sed to interpret this result as normal/abnor mal. RBC (test code = 789-8) 3.59 See_Comment L [Au tomated message] The system [employer] generated this result transmitted ref erence range: 3.93 - 5 .22 M/L. The refe rence range was not u sed to interpret this result as normal/abnor mal. MCHC (test code = 786-4) 33.0 See_Comment L [A utomated message] The system [employer] generated this result transmitted ref erence range: [...] See_Comment [Aut omated message] 777-3) The system [employer] generated this result transmitted ref erence range: 150 - 45 0 K/CU MM. The referen ce range was not u sed to interpret this result as normal/abnor mal. MPV (test code = 9.8 fL 9.4-12.3 32312-3) nRBC (test code = 413) 0 See_Comment [Aut omated message] The system Medig[employer] generated this result transmitted ref erence range: [...] H [Aut omated message] 670) The system [employer] generated this result transmitted ref erence range: 1.56 - 6 .13 K/L. The refe rence range was not u sed to interpret this result as normal/abnor mal. # Lymphs (test code = 3.72 See_Comment [Auto mated message] 414) The system [employer] generated this result transmitted ref erence range: 1.18 - 3 .74 K/L. The refe rence range was not u sed to interpret this result as normal/abnor mal. # Monos (test code = 1.11 See_Comment H [Autom ated message] 415) The system [employer] generated this result transmitted ref erence range: 0.24 - 0 .36 K/L. The refe rence range was not u sed to interpret this result as normal/abnor mal. # Eos (test code = 416) 0.33 See_Comment [Au tomated message] The system Med[employer] generated this result transmitted ref erence range: 0.04 - 0 .36 K/L. The refe rence range was not u sed to interpret this result as normal/abnor mal. # Baso (test code = 417) 0.04 See_Comment [A utomated message] The system Med[employer] generated this result transmitted ref erence range: 0.01 - 0 .08 K/L. The refe rence range was not u sed to interpret this result as normal/abnor mal. Immature 1 % 0-1 Granulocytes-Relative (test code = 2801) Lab Interpretation (test Abnormal code = 12369-7) [facility] with platelet count + automated [id number] 06:22:16 Test Item Value Reference Range Interpretation Comments WBC (test code = 6690-2) 13.2 See_Comment H [A utomated message] The system [employer] generated this result transmitted ref erence range: 3.5 - 10 .5 K/L. The refe rence range was not u sed to interpret this result as normal/abnor mal. RBC (test code = 789-8) 3.59 See_Comment L [Au tomated message] The system Medig[employer] generated this result transmitted ref erence range: 3.93 - 5 .22 M/L. The refe rence range was not u sed to interpret this result as normal/abnor mal. MCHC (test code = 786-4) 33.0 See_Comment L [A utomated message] The system Medig[employer] generated this result transmitted ref erence range: [...] See_Comment [Aut omated message] 777-3) The system Med[employer] generated this result transmitted ref erence range: 150 - 45 0 K/CU MM. The referen ce range was not u sed to interpret this result as normal/abnor mal. MPV (test code = 9.8 fL 9.4-12.3 49509-2) nRBC (test code = 413) 0 See_Comment [Aut omated message] The system [employer] generated this result transmitted ref erence range: [...] H [Aut omated message] 670) The system Medig[employer] generated this result transmitted ref erence range: 1.56 - 6 .13 K/L. The refe rence range was not u sed to interpret this result as normal/abnor mal. # Lymphs (test code = 3.72 See_Comment [Auto mated message] 414) The system Medig[employer] generated this result transmitted ref erence range: 1.18 - 3 .74 K/L. The refe rence range was not u sed to interpret this result as normal/abnor mal. # Monos (test code = 1.11 See_Comment H [Autom ated message] 415) The system Medig[employer] generated this result transmitted ref erence range: 0.24 - 0 .36 K/L. The refe rence range was not u sed to interpret this result as normal/abnor mal. # Eos (test code = 416) 0.33 See_Comment [Au tomated message] The system Medig[employer] generated this result transmitted ref erence range: 0.04 - 0 .36 K/L. The refe rence range was not u sed to interpret this result as normal/abnor mal. # Baso (test code = 417) 0.04 See_Comment [A utomated message] The system Medig[employer] generated this result transmitted ref erence range: 0.01 - 0 .08 K/L. The refe rence range was not u sed to interpret this result as normal/abnor mal. Immature 1 % 0-1 Granulocytes-Relative (test code = 2801) Lab Interpretation (test Abnormal code = 30249-4) [facility] W/PLT COUNT & AUTO [id number] 06:22:16 Test Item Value Reference Range Interpretation [...] (BEAKER) (test code = 2801) Vancomycin level, [id number] 14:18:34 Test Item Value Reference Range Interpretation Comments Vancomycin Tr (test code = 8.4 ug/mL 10.0-20.0 L 4092-3) JUANIS (test code = JUANIS) Maintenance Chief ID - PIAYA L Lab Interpretation (test Abnormal code = 29423-9) [facility] [id number] 14:18:34 Test Item Value Reference Range Interpretation Comments Vancomycin Tr (test code = 8.4 ug/mL 10.0-20.0 L 4092-3) JUANIS (test code = JUANIS) Maintenance Chief ID - DEANGELO L Lab Interpretation (test Abnormal code = 38346-7) [facility], [id number] 14:18:34 Test Item Value Reference Range Interpretation Comments Vancomycin Tr (test code = 8.4 ug/mL 10.0-20.0 L 4092-3) JUANIS (test code = JUANIS) Maintenance Chief ID - PIAYA L Lab Interpretation (test Abnormal code = 77619-0) [facility]AN[facility]CIN LEVEL, [id number] 14:18:34 Test Item Value Reference Range Interpretation Comments VANCOMYCIN TROUGH (BEAKER) (test 8.4 ug/mL 10.0-20.0 L code = 522) Maintenance Chief ID - DEANGELO LCBC W/PLT COUNT & AUTO [id number] 14:05:32 Test Item Value Reference Range Interpretation [...] = No growth in 5 days 6463-4) [facility] (Right [facility]ipuncture) 2021-09-13 02:00:53 Test Item Value Reference Range Interpretation Comments Result (test code = No growth in 5 days 6463-4) [facility] Culture - Routine (Right Venipuncture) 2021-09-13 02:00:53 Test Item Value Reference Range Interpretation Comments Result (test code = No growth in 5 days 6463-4) [facility] [id number] 02:00:53 Test Item Value Reference Range Interpretation Comments CULTURE (BEAKER) (test No growth in 5 days code = 1095) BLOOD [id number] 02:00:52 Test Item Value Reference Range Interpretation Comments CULTURE (BEAKER) (test No growth in 5 days code = 1095) Transesophageal [id number] 18:48:24Ejection FractionSLEH ECHO HEARTLAB MKCKESSON CP[facility]CHI [facility] [id number] 18:48:24Ejection FractionSLEH ECHO HEARTLAB MKCKESSON [facility] [id number] 18:48:24Ejection FractionSLEH ECHO HEARTLAB MKCKESSON [facility] LEV[facility], [id number] 13:59:47 Test Item Value Reference Range Interpretation Comments VANCOMYCIN TROUGH (BEAKER) (test 8.4 ug/mL 10.0-20.0 L code = 522) Maintenance Chief ID - DBLactic acid, lockjp5403-41-62 13:58:08 Test Item Value Reference Range Interpretation Comments Lactate, Venous (test code = 1.96 mmol/L 0.50-2.20 2872) JUANIS (test code = JUANIS) Maintenance Chief ID - DB Lab Interpretation (test Normal code = 14348-4) [facility], [id number] 13:58:08 Test Item Value Reference Range Interpretation Comments Lactate, Venous (test code = 1.96 mmol/L 0.50-2.20 2872) JUANIS (test code = JUANIS) Maintenance Chief ID - DB Lab Interpretation (test Normal code = 02712-6) [facility], [id number] 13:58:08 Test Item Value Reference Range Interpretation Comments Lactate, Venous (test code = 1.96 mmol/L 0.50-2.20 2872) JUANIS (test code = JUANIS) Maintenance Chief ID - DB Lab Interpretation (test Normal code = 51805-0) [facility]LA[facility] ACID, [id number] 13:58:08 Test Item Value Reference Range Interpretation Comments LACTATE BLOOD VENOUS (2) (BEAKER) 1.96 mmol/L 0.50-2.20 (test code = 2872) Maintenance Chief ID - DBBasic Metabolic Qnnhr0541-66-93 13:56:06 Test Item Value Reference Range Interpretation Comments Sodium (test code = 134 meq/L 136-145 L 2951-2) Potassium (test code = 4.3 meq/L 3.5-5.1 3-3) Chloride (test code = 99 meq/L 98-107 2074-0) CO2 (test code = 25 meq/L 22-29 2027-9) BUN (test code = 18 mg/dL 7-21 3094-0) Creatinine (test code 0.76 mg/dL 0.57-1.25 = 2160-0) Glucose (test code = 118 mg/dL 70-105 H 2345-7) Calcium (test code = 8.7 mg/dL 8.4-10.2 28196-2) EGFR (test code = 77 mL/min/1.73 [place] [address]-2) NOT ACCURATE CREATININE CLEARANCE IN PREDICTING GLOMERULAR FILTRATION RATE . ESTIMATED GFR I S NOT APPLICABLE FOR DIALYSIS PATIENTS. JUANIS (test code = JUANIS) Maintenance Chief ID - DB Lab Interpretation Abnormal (test code = 03636-0) [facility] Metabolic [id number] 13:56:06 Test Item Value Reference Range Interpretation Comments Sodium (test code = 134 meq/L 136-145 L 2951-2) Potassium (test code = 4.3 meq/L 3.5-5.1 2823-3) Chloride (test code = 99 meq/L 98-107 2075-0) CO2 (test code = 25 meq/L -2027-) BUN (test code = 18 mg/dL 7-21 3094-0) Creatinine (test code 0.76 mg/dL 0.57-1.25 = 2160-0) Glucose (test code = 118 mg/dL 70-105 H 2345-7) Calcium (test code = 8.7 mg/dL 8.4-10.2 58972-5) EGFR (test code = 77 mL/min/1.[place] [address]-6) NOT ACCURATE CREATININE CLEARANCE IN PREDICTING GLOMERULAR FILTRATION RATE . ESTIMATED GFR I S NOT APPLICABLE FOR DIALYSIS PATIENTS. JUANIS (test code = JUANIS) Maintenance Chief ID - DB Lab Interpretation Abnormal (test code = 56614-3) [facility] Metabolic [id number] 13:56:06 Test Item Value Reference Range Interpretation [...] Calcium (test code = 8.7 mg/dL 8.4-10.2 27981-4) EGFR (test code = 77 mL/min/1.73 [place] [address]-5) NOT ACCURATE CREATININE CLEARANCE IN PREDICTING GLOMERULAR FILTRATION RATE . ESTIMATED GFR I S NOT APPLICABLE FOR DIALYSIS PATIENTS. JUANIS (test code = JUANIS) Maintenance Chief ID - DB Lab Interpretation Abnormal (test code = 79984-4) [facility] METABOLIC [id number] 13:56:06 Test Item Value Reference Range Interpretation [...] S NOT APPLICABLE FOR DIALYSIS PATIEN TS. Maintenance Chief ID - DBCBC W/PLT COUNT & AUTO [id number] 13:21:48 Test Item Value Reference Range Interpretation [...] (BEAKER) (test code = 2801) BASIC METABOLIC [id number] 14:26:25 Test Item Value Reference Range Interpretation [...] S NOT APPLICABLE FOR DIALYSIS PATIEN TS. Maintenance Chief ID - VNTgefwdrxs6968-38-41 14:11:30 Test Item Value Reference Range Interpretation Comments Magnesium (test code = 1.9 mg/dL 1.6-2.6 53612-6) JUANIS (test code = JUANIS) Maintenance Chief ID - DB Lab Interpretation (test Normal code = 98178-4) [facility]2021-12-26 14:11:30 Test Item Value Reference Range Interpretation Comments Magnesium (test code = 1.9 mg/dL 1.6-2.6 59844-9) JUANIS (test code = JUANIS) Maintenance Chief ID - DB Lab Interpretation (test Normal code = 30198-9) [facility] 14:11:30 Test Item Value Reference Range Interpretation Comments Magnesium (test code = 1.9 mg/dL 1.6-2.6 67687-0) JUANIS (test code = JUANIS) Maintenance Chief ID - DB Lab Interpretation (test Normal code = 17620-4) [facility] 14:11:30 Test Item Value Reference Range Interpretation Comments MAGNESIUM (BEAKER) (test code = 1.9 mg/dL 1.6-2.6 627) Maintenance Chief ID - DBVANCOMYCIN LEVEL, [id number] 12:54:39 Test Item Value Reference Range Interpretation Comments VANCOMYCIN TROUGH (BEAKER) (test 10.7 ug/mL 10.0-20.0 code = 522) Maintenance Chief ID - IGNACIO PHqixisu3765-23-72 08:00:34 Test Item Value Reference Range Interpretation Comments Albumin (test code = 2.2 g/dL 3.5-5.0 L 16752-4) JUANIS (test code = JUANIS) Maintenance Chief ID - IGNACIO W Lab Interpretation (test Abnormal code = 27311-5) [facility]2021-[facility]-25 08:00:34 Test Item Value Reference Range Interpretation Comments Albumin (test code = 2.2 g/dL 3.5-5.0 L 77259-1) JUANIS (test code = JUANIS) Maintenance Chief ID - IGNACIO W Lab Interpretation (test Abnormal code = 63755-5) [facility]2021-12-25 08:00:34 Test Item Value Reference Range Interpretation Comments Albumin (test code = 2.2 g/dL 3.5-5.0 L 21773-3) JUANIS (test code = JUANIS) Maintenance Chief ID - IGNACIO W Lab Interpretation (test Abnormal code = 34070-6) [facility]21-[facility]-25 08:00:34 Test Item Value Reference Range Interpretation Comments ALBUMIN (BEAKER) (test code = 1145) 2.2 g/dL 3.5-5.0 L Maintenance Chief ID - IGNACIO HJcywiqj7360-60-66 06:36:13 Test Item Value Reference Range Interpretation Comments Calcium (test code = 6.4 mg/dL 8.4-10.2 L 53926-5) JUANIS (test code = JUANIS) Maintenance Chief ID - IGNACIO W Lab Interpretation (test Abnormal code = 43673-9) [facility]21-[facility]-25 06:36:13 Test Item Value Reference Range Interpretation Comments Calcium (test code = 6.4 mg/dL 8.4-10.2 L 07759-3) JUANIS (test code = JUANIS) Maintenance Chief ID - IGNACIO W Lab Interpretation (test Abnormal code = 50553-7) [facility]21-[facility]-25 06:36:13 Test Item Value Reference Range Interpretation Comments Calcium (test code = 6.4 mg/dL 8.4-10.2 L 49549-6) JUANIS (test code = JUANIS) Maintenance Chief ID - IGNACIO W Lab Interpretation (test Abnormal code = 00879-1) [facility]2021-12-25 06:36:13 Test Item Value Reference Range Interpretation Comments CALCIUM (BEAKER) (test code = 697) 6.4 mg/dL 8.4-10.2 L Maintenance Chief TRACY LOMELIASIC METABOLIC [id number] 05:17:45 Test Item Value Reference Range Interpretation [...] S NOT APPLICABLE FOR DIALYSIS PATIEN TS. Maintenance Chief TRACY IPERRE ALeocsloknb8928-48-78 05:10:32 Test Item Value Reference Range Interpretation Comments Phosphorus (test code = 2.4 mg/dL 2.3-4.7 2777-1) JUANIS (test code = JUANIS) Maintenance Chief ID Ashley PIERRE W Lab Interpretation (test Normal code = 45392-9) [facility]2021-12-25 05:10:32 Test Item Value Reference Range Interpretation Comments Phosphorus (test code = 2.4 mg/dL 2.3-4.7 2777-1) JUANIS (test code = JUANIS) Maintenance Chief TRACY PIERRE W Lab Interpretation (test Normal code = 18116-0) [facility]2021-12-25 05:10:32 Test Item Value Reference Range Interpretation Comments Phosphorus (test code = 2.4 mg/dL 2.3-4.7 2777-1) JUANIS (test code = JUANIS) Maintenance Chief ID Ashley PIERRE W Lab Interpretation (test Normal code = 39096-7) [facility]OSPHORUS2021-12-25 05:10:32 Test Item Value Reference Range Interpretation Comments PHOSPHORUS (BEAKER) (test code = 2.4 mg/dL 2.3-4.7 604) Maintenance Chief TRACY PIERRE XADZJQLXZE7748-02-00 05:10:31 Test Item Value Reference Range Interpretation Comments MAGNESIUM (BEAKER) (test code = 1.7 mg/dL 1.6-2.6 627) Maintenance Chief ID Ashley PIERRE WCalcium, Pdvbulm5786-78-74 04:50:40 Test Item Value Reference Range Interpretation Comments Calcium, Ion (test code = 1993-11) 1.15 mmol/L 1.12-1.27 pH, Blood (test code = 80812-9) 7.39 [facility], Zpbrkzk9667-30-01 04:50:40 Test Item Value Reference Range Interpretation Comments Calcium, Ion (test code = 1993-11) 1.15 mmol/L 1.12-1.27 pH, Blood (test code = 62881-8) 7.39 [facility], Zmpdznj3683-59-54 04:50:40 Test Item Value Reference Range Interpretation Comments Calcium, Ion (test code = 1993-11) 1.15 mmol/L 1.12-1.27 pH, Blood (test code = 40877-7) 7.39 [facility], [id number] 04:50:40 Test Item Value Reference Range Interpretation Comments CALCIUM IONIZED (BEAKER) (test 1.15 mmol/L 1.12-1.27 code = 698) PH, BLOOD (BEAKER) (test code = 7.39 1810) CBC W/PLT COUNT & AUTO [id number] 04:36:32 Test Item Value Reference Range Interpretation [...] (BEAKER) (test code = 2801) VANCOMYCIN LEVEL, [id number] 19:55:12 Test Item Value Reference Range Interpretation Comments VANCOMYCIN TROUGH (BEAKER) (test 20.3 ug/mL 10.0-20.0 H code = 522) Maintenance Chief ID - DBBASIC METABOLIC [id number] 05:20:28 Test Item Value Reference Range Interpretation [...] S NOT APPLICABLE FOR DIALYSIS PATIEN TS. Maintenance Chief ID - PIAYA SILUVMELQI8005-01-42 05:17:02 Test Item Value Reference Range Interpretation Comments MAGNESIUM (BEAKER) (test code = 1.5 mg/dL 1.6-2.6 L 627) Maintenance Chief ID - DEANGELO [id number] 05:17:02 Test Item Value Reference Range Interpretation Comments PHOSPHORUS (BEAKER) (test code = 2.8 mg/dL 2.3-4.7 604) Maintenance Chief ID - PIJACKELYN LCALCIUM, [id number] 04:11:31 Test Item Value Reference Range Interpretation Comments CALCIUM IONIZED (BEAKER) (test 1.10 mmol/L 1.12-1.27 L code = 698) PH, BLOOD (BEAKER) (test code = 7.43 1810) CBC W/PLT COUNT & AUTO [id number] 04:09:30 Test Item Value Reference Range Interpretation [...] (BEAKER) (test code = 2801) Comprehensive metabolic [id number] 01:11:40 Test Item Value Reference Range Interpretation Comments Protein, Total (test 6.1 See_Comment [Autom ated code = 2885-2) message] The system which generated this result transmit veronica reference range : 6.0 - 8.3 gm/dL . The reference range was not u sed to interpret th is result as normal/abnormal . Albumin (test code = 3.4 g/dL 3.5-5.0 L 81095-6) Alkaline Phosphatase 57 U/L 40-150 (test code = 6768-6) Total Bilirubin (test 0.3 mg/dL 0.2-1.2 code = 1974-2) Sodium (test code = 136 meq/L 380-012 4328-2) Potassium (test code 3.7 meq/L 3.5-5.1 = 2823-3) Chloride (test code = 100 meq/L 98-107 2075-0) CO2 (test code = 28 meq/L 22-29 8-9) BUN (test code = 15 mg/dL 7-21 3094-0) Creatinine (test code 0.69 mg/dL 0.57-1.25 = 2160-0) Glucose (test code = 104 mg/dL 70-105 2345-7) Calcium (test code = 8.7 mg/dL 8.4-10.2 99743-9) AST (test code = 11 U/L 5-34 1920-8) ALT (test code = 13 U/L 6-55 1742-6) EGFR (test code = 86 mL/min/1.[place] [address]-7) NOT ACCURATE CREATININE CLEARANCE IN PREDICTING GLOMERULAR FILTRATION RATE . ESTIMATED GFR I S NOT APPLICABLE FOR DIALYSIS PATIEN TS. JUANIS (test code = JUANIS) Maintenance Chief ID - BS Lab Interpretation Abnormal (test code = 73921-2) [facility] Tjgydtl7586-15-56 01:11:40 Test Item Value Reference Range Interpretation Comments CRP (test code = 676) 0.55 mg/dL 0.00-0.50 H JUANIS (test code = JUANIS) Maintenance Chief ID - BS Lab Interpretation (test Abnormal code = 16533-5) [facility]Com[facility] [id number] 01:11:40 Test Item Value Reference Range Interpretation Comments Protein, Total (test 6.1 See_Comment [Autom ated code = 2885-2) message] The system which generated this result transmit veronica reference range : 6.0 - 8.3 gm/dL . The reference range was not u sed to interpret th is result as normal/abnormal . Albumin (test code = 3.4 g/dL 3.5-5.0 L 48968-5) Alkaline Phosphatase 57 U/L 40-150 (test code = 6768-6) Total Bilirubin (test 0.3 mg/dL 0.2-1.2 code = 1974-2) Sodium (test code = 136 meq/L 852-896 9940-2) Potassium (test code 3.7 meq/L 3.5-5.1 = 2823-3) Chloride (test code = 100 meq/L 98-107 2075-0) CO2 (test code = 28 meq/L 22-29 8-9) BUN (test code = 15 mg/dL 7-21 3094-0) Creatinine (test code 0.69 mg/dL 0.57-1.25 = 2160-0) Glucose (test code = 104 mg/dL 70-105 2345-7) Calcium (test code = 8.7 mg/dL 8.4-10.2 77589-9) AST (test code = 11 U/L 5-34 1920-8) ALT (test code = 13 U/L 6-55 1742-6) EGFR (test code = 86 mL/min/1.[place] [address]-4) NOT ACCURATE CREATININE CLEARANCE IN PREDICTING GLOMERULAR FILTRATION RATE . ESTIMATED GFR I S NOT APPLICABLE FOR DIALYSIS PATIEN TS. JUANIS (test code = JUANIS) Maintenance Chief ID - BS Lab Interpretation Abnormal (test code = 09292-3) [facility] Bansbdt0407-81-68 01:11:40 Test Item Value Reference Range Interpretation Comments CRP (test code = 676) 0.55 mg/dL 0.00-0.50 H JUANIS (test code = JUANIS) Maintenance Chief ID - BS Lab Interpretation (test Abnormal code = 25038-3) [facility] nzzgw5809-55-50 01:11:40 Test Item Value Reference Range Interpretation Comments Protein, Total (test 6.1 See_Comment [Autom ated code = 2885-2) message] The system which generated this result transmit veronica reference range : 6.0 - 8.3 gm/dL . The reference range was not u sed to interpret th is result as normal/abnormal . Albumin (test code = 3.4 g/dL 3.5-5.0 L 60851-4) Alkaline Phosphatase 57 U/L 40-150 (test code = 6768-6) Total Bilirubin (test 0.3 mg/dL 0.2-1.2 code = 1974-2) Sodium (test code = 136 meq/L 342-590 9473-2) Potassium (test code 3.7 meq/L 3.5-5.1 = 2823-3) Chloride (test code = 100 meq/L 98-107 2075-0) CO2 (test code = 28 meq/L 22-29 8-9) BUN (test code = 15 mg/dL 7-21 3094-0) Creatinine (test code 0.69 mg/dL 0.57-1.25 = 2160-0) Glucose (test code = 104 mg/dL 70-105 2345-7) Calcium (test code = 8.7 mg/dL 8.4-10.2 98662-9) AST (test code = 11 U/L 5-34 1920-8) ALT (test code = 13 U/L 6-55 1742-6) EGFR (test code = 86 mL/min/1.[place] [address]-3) NOT ACCURATE CREATININE CLEARANCE IN PREDICTING GLOMERULAR FILTRATION RATE . ESTIMATED GFR I S NOT APPLICABLE FOR DIALYSIS PATIEN TS. JUANIS (test code = JUANIS) Maintenance Chief ID - BS Lab Interpretation Abnormal (test code = 77041-8) [facility] Aituhlv1245-54-69 01:11:40 Test Item Value Reference Range Interpretation Comments CRP (test code = 676) 0.55 mg/dL 0.00-0.50 H JUANIS (test code = JUANIS) Maintenance Chief ID - BS Lab Interpretation (test Abnormal code = 32224-0) [facility] [id number] 01:11:40 Test Item Value Reference Range Interpretation [...] S NOT APPLICABLE FOR DIALYSIS PATIEN TS. Maintenance Chief ID - TZERDNTRBRO8409-29-31 01:11:40 Test Item Value Reference Range Interpretation Comments MAGNESIUM (BEAKER) (test code = 2.0 mg/dL 1.6-2.6 627) Maintenance Chief ID - BSC-REACTIVE YNAPVYP3017-98-27 01:11:40 Test Item Value Reference Range Interpretation Comments C-REACTIVE PROTEIN (BEAKER) (test 0.55 mg/dL 0.00-0.50 H code = 676) Maintenance Chief ID - BSLACTIC ACID, WHCFEQ9399-97-22 01:03:18 Test Item Value Reference Range Interpretation Comments LACTATE BLOOD VENOUS (2) (BEAKER) 1.11 mmol/L 0.50-2.20 (test code = 2872) Maintenance Chief ID - BSBlood gas, mhqztq0129-48-83 01:02:34 Test Item Value Reference Range Interpretation Comments pH, Van (test code = 7.47 7.32-7.42 H 2746-6) pCO2, Van (test code = 41 See_Comment [Aut omated message] 755) The system [employer] h generated this result transmit veronica reference range : 41 - 51 mm Hg. The reference range was not used to interpret this result as normal/abnormal . pO2, Van (test code = 100 See_Comment H [Auto mated message] 2705-2) The system [employer] h generated this result transmit veronica reference range : 25 - 40 mm Hg. The reference range was not used to interpret this result as normal/abnormal . O2 Sat, Van (test code 98.0 % 40.0-70.0 H = 2711-0) HCO3, Van (test code = 29 mmol/L 21-29 02534-3) Base Excess, Van (test 4.7 mmol/L -2.0-3.0 H code = 1927-3) Patient Temperature 36.1 (test code = 8310-5) FIO2 (test code = 1819) 21 Lab Interpretation Abnormal (test code = 97466-6) [facility] [id number] 01:02:34 Test Item Value Reference Range Interpretation Comments pH, Van (test code = 7.47 7.32-7.42 H 2746-6) pCO2, Van (test code = 41 See_Comment [Aut omated message] 755) The system [employer] generated this result transmit veronica reference range : 41 - 51 mm Hg. The reference range was not used to interpret this result as normal/abnormal . pO2, Van (test code = 100 See_Comment H [Auto mated message] 2705-2) The system [employer] h generated this result transmit veronica reference range : 25 - 40 mm Hg. The reference range was not used to interpret this result as normal/abnormal . O2 Sat, Van (test code 98.0 % 40.0-70.0 H = 2711-0) HCO3, Van (test code = 29 mmol/L 21-29 17866-6) Base Excess, Van (test 4.7 mmol/L -2.0-3.0 H code = 1927-3) Patient Temperature 36.1 (test code = 8310-5) FIO2 (test code = 1819) 21 Lab Interpretation Abnormal (test code = 47687-6) [facility] [id number] 01:02:34 Test Item Value Reference Range Interpretation Comments pH, Van (test code = 7.47 7.32-7.42 H 2746-6) pCO2, Van (test code = 41 See_Comment [Aut omated message] 755) The system whic h generated this result transmit veronica reference range : 41 - 51 mm Hg. The reference range was not used to interpret this result as normal/abnormal . pO2, Van (test code = 100 See_Comment H [Auto mated message] 2705-2) The system [employer] h generated this result transmit veronica reference range : 25 - 40 mm Hg. The reference range was not used to interpret this result as normal/abnormal . O2 Sat, Van (test code 98.0 % 40.0-70.0 H = 2711-0) HCO3, Van (test code = 29 mmol/L 21-29 95909-6) Base Excess, Van (test 4.7 mmol/L -2.0-3.0 H code = 1927-3) Patient Temperature 36.1 (test code = 8310-5) FIO2 (test code = 1819) 21 Lab Interpretation Abnormal (test code = 04195-7) [facility], [id number] 01:02:34 Test Item Value Reference Range Interpretation [...] 1819) 21.0 CBC W/PLT COUNT & AUTO [id number] 00:49:55 Test Item Value Reference Range Interpretation [...] 417) IMMATURE GRANULOCYTES-RELATIVE 1 % 0-1 PERCENT (WILFREDO) (test code = 2801)
[2022-10-22] MEDS ORDERED: LEVALBUTEROL 1.25 MG/3 ML NEB ONE (15:16)
[2022-10-22] MEDS ORDERED: HYDROCODONE/APAP 7.5/325 MG TAB ONE (15:17)
--- NOTE | 2022-10-22 16:08 | RAD REPORT ---
EXAM DESCRIPTION: Shoulder Right 2 View - 10/22/2022 3:59 pm CLINICAL HISTORY: PAINafter fall COMPARISON: No comparisons TECHNIQUE: Internal and external rotation views of the right shoulder were obtained. FINDINGS: Bones appear osteopenic as a baseline. Transverse fracture is seen at the surgical neck wi th impaction and mild angulation deformity. Fracture of the greater tuberosity is seen as well. No di slocation of the humeral head. No AC joint separation. Acromial humeral joint space is maintained. Fracture of the scapula is not identifiable. Rib fractures are suspected but not fully imaged. Corre lation is needed with rib pain with follow-up imaging obtained as clinically warranted. IMPRESSION: Proximal right humerus fracture without dislocation. Possible rib fractures not adequately visualized on this study. Follow-up plain films of the ribs cou ld be obtained if there are focal rib symptoms.
--- NOTE | 2022-10-22 16:10 | RAD REPORT ---
EXAM DESCRIPTION: RAD - Humerus Right - 10/22/2022 3:59 pm CLINICAL HISTORY: PAIN COMPARISON: No remote comparison. FINDINGS: Fracture of the surgical neck and greater tuberosity detailed on the shoulder report. Marti deon of the right humerus appears intact. Visualization at the elbow joint is limited. No pathologic changes seen. No foreign body or other soft tissue abnormality. IMPRESSION: Proximal right humerus fracture without dislocation. This is detailed on the shoulder re port. Remainder of the humerus is intact.
--- NOTE | 2022-10-22 16:12 | RAD REPORT ---
EXAM DESCRIPTION: RAD - Wrist Right 3 View - 10/22/2022 3:59 pm CLINICAL HISTORY: PAIN COMPARISON: No comparisons FINDINGS: Two views of the right wrist were obtained. Wrist joint is flexed almost 90 degrees on bot h projections limiting evaluation. Distal radius and ulna appear to be intact. Carpal bones are fully obscured on the PA projection. No gross dislocation seen on the lateral view. Ability to assess carp al bone fracture is very limited. Delete select IMPRESSION: Exam is substantially limited due to the near 90 degree flexion of the wrist on both acq uisitions. It is unknown if this is a fixed position for the patient. Bones are osteopenic. No gross evidence for dislocation or acute bone finding.
--- NOTE | 2022-10-22 16:14 | RAD REPORT ---
EXAM DESCRIPTION: RAD - Elbow Right 3 View - 10/22/2022 3:59 pm CLINICAL HISTORY: PAIN COMPARISON: Humerus Right dated 10/22/2022 FINDINGS: Single lateral view of the elbow was obtained. Humerus images were reviewed. Patient is st rongly flexed at the elbow joint which may be a fixed position. Bones are osteopenic. No fractures id entified. There is no dislocation or periosteal reaction noted. Soft tissue swelling is present poste rior to the ulna. No foreign body seen. IMPRESSION: Significantly limited examination showing no fracture or dislocation. Soft tissue swelling/ contusion changes posterior to the ulna.
--- NOTE | 2022-10-22 16:32 | ER ---
Nurse's Notes [facility] Name: Irina Pardo Age: 67 yrs Sex: Female : 1955 Arrival Date: 10/22/2022 Time: 13:41 Bed Treatment Private MD: Diagnosis: Comminuted closed right proximal humerus fracture Presentation: 10/22 14:00 Chief complaint: Patient states: Fell onto R shoulder and R rib cage a few days ago. ll1 Still has pain now. Coronavirus screen: Vaccine status: Patient reports receiving the 2nd dose of the covid vaccine. Client denies travel out of the [place] in the last 14 days. At this time, the client does not indicate any symptoms associated with coronavirus-19. Ebola Screen: Patient denies travel to an Ebola-affected area in the 21 days before illness onset. Initial Sepsis Screen: Does the patient meet any 2 criteria? HR > 90 bpm. No. Patient's initial sepsis screen is negative. Does the patient have a suspected source of infection? Yes: Bone or joint infection. Risk Assessment: Do you want to hurt yourself or someone else? Patient reports no desire to harm self or others. Onset of symptoms was October 18, 2022. 14:00 Method Of Arrival: Wheelchair ll1 14:00 Acuity: FRANK 3 ll1 Triage Assessment: 15:30 General: Appears in no apparent distress. uncomfortable, Behavior is calm, cooperative, kr3 appropriate for age. Pain: Complains of pain in right arm. 16:00 Musculoskeletal: right arm contracted from previous stroke. Injury Description: kr3 fracture. Historical: - Allergies: 13:59 Iodine; ll1 13:59 SHELLFISH; ll1 - PMHx: 13:59 COPD; CVA; High Cholesterol; ll1 - Immunization history:: Client reports receiving the 2nd dose of the Covid vaccine. - Social history:: Smoking status: Patient/guardian denies using tobacco, Stopped _ months ago 3. Screenin:30 [facility] ED Fall Risk Assessment (Adult) History of falling in the last 3 months, kr3 including since admission Yes- fall prone (multiple falls) (3 pts) Confusion or Disorientation No (0 pts) Intoxicated or Sedated No (0 pts) Impaired Gait Yes (1 pt) Mobility Assist Device Used Yes (1 pt) Altered Elimination No (0 pt) Score/Fall Risk Level 3 or more points = High Risk Oriented to surroundings, Maintained a safe environment, Educated pt \T\ family on fall prevention, incl call for assistance when getting out of bed, Assessed \T\ reinforced patient's understanding of fall precautions, Hourly rounding (assess needs \T\ fall precautionary measures) done, Used ambulatory aids as needed (educated on \T\ assisted with), Remained with patient while ambulating. 18:40 [facility] ED Fall Risk Assessment (Adult) History of falling in the last 3 months, kr3 including since admission No falls in past 3 months (0 pts). Abuse screen: Denies threats or abuse. Nutritional screening: No deficits noted. Tuberculosis screening: No symptoms or risk factors identified. Assessment: 15:00 Reassessment: No changes from previously documented assessment. Patient and/or family kr3 updated on plan of care and expected duration. Pain level reassessed. Patient is alert, oriented x 3, equal unlabored respirations, skin warm/dry/pink. 16:26 Reassessment: No changes from previously documented assessment. Patient and/or family kr3 updated on plan of care and expected duration. Pain level reassessed. Patient is alert, oriented x 3, equal unlabored respirations, skin warm/dry/pink. Vital Signs: 14:00 BP 105 / 87; Pulse 99; Resp 18; Temp 98.1; Pulse Ox 97% ; Weight 55.79 kg; Height 5 ft. ll1 2 in. (157.48 cm); Pain 9/10; 15:15 BP 108 / 82; Pulse 98; Resp 18; Pulse Ox 96% on R/A; kr3 16:27 BP 110 / 84; Pulse 97; Resp 18; Pulse Ox 98% on R/A; kr3 14:00 Body Mass Index 22.50 (55.79 kg, 157.48 cm) ll1 ED Course: 13:41 Patient arrived in ED. as 13:46 Dennis Flores MD is Attending Physician. kdr 14:01 Triage completed. ll1 14:01 Arm band placed on. ll1 15:00 Bed in low position. Call light in reach. Side rails up X 1. kr3 15:11 Makayla Smith RN is Primary Nurse. kr3 16:00 No provider procedures requiring assistance completed. Patient did not have IV access kr3 during this emergency room visit. 16:01 Shoulder Right (2 View) XRAY In Process Unspecified. EDMS 16:01 Elbow Right 3 View XRAY In Process Unspecified. EDMS 16:01 Humerus Right XRAY In Process Unspecified. EDMS 16:01 Wrist Right 3 View XRAY In Process Unspecified. EDMS 17:39 Primary Nurse role handed off by Makayla Smith, ALFREDO iw Administered Medications: 15:18 Drug: [place] (HYDROcodone-acetaminophen) (7.5 mg-325 mg) 1 tabs Route: PO; kr3 18:44 Follow up: Response: No adverse reaction kr3 15:46 Drug: Xopenex (levalbuterol) (3) 1.25 mg Route: Inhalation; kr3 18:44 Follow up: Response: No adverse reaction kr3 Medication: 16:00 VIS not applicable for this client. kr3 Outcome: 16:00 Discharge instructions given to patient, Instructed on discharge instructions, follow kr3 up and referral plans. medication usage, Demonstrated understanding of instructions, follow-up care, medications. 16:32 Discharge ordered by . kdr 17:02 Patient left the ED. kr3 18:42 Discharged to home via wheelchair. kr3 18:42 Condition: stable Signatures: Dispatcher [employer] EDMS Dennis Flores MD MD kdr Angeles Colvin Irene, RN RN iw Marimar Hughes RN RN ll1 Makayla Smith, RN RN kr3 Corrections: (The following items were deleted from the chart) 18:43 17:41 Patient left the ED. iw kr3 18:43 17:44 Patient left the ED. iw kr3
--- NOTE | 2022-10-22 16:32 | EDPHYS ---
Physician Documentation [facility] Name: Irina Pardo Age: 67 yrs Sex: Female : 1955 Arrival Date: 10/22/2022 Time: 13:41 Bed Treatment Private MD: ED Physician Dennis Flores HPI: 10/22 17:27 This 67 yrs old Female presents to ER via Wheelchair with complaints of Arm Injury, kdr Fall Injury. 17:27 Patient states that she fell on her right shoulder couple days ago has had persistent kdr pain in the shoulder. She denies LOC or any other associated injury.. Onset: The symptoms/episode began/occurred suddenly, 2 day(s) ago. Severity of symptoms: At their worst the symptoms were mild moderate just prior to arrival, in the emergency department the symptoms are unchanged. The patient has not experienced similar symptoms in the past. The patient has not recently seen a physician. Historical: - Allergies: 13:59 Iodine; ll1 13:59 SHELLFISH; ll1 - PMHx: 13:59 COPD; CVA; High Cholesterol; ll1 - Immunization history:: Client reports receiving the 2nd dose of the Covid vaccine. - Social history:: Smoking status: Patient/guardian denies using tobacco, Stopped _ months ago 3. ROS: 17:27 Constitutional: Negative for fever, chills, and weight loss, Eyes: Negative for injury, kdr pain, redness, and discharge, Neck: Negative for injury, pain, and swelling, Cardiovascular: Negative for chest pain, palpitations, and edema, Respiratory: Negative for shortness of breath, cough, wheezing, and pleuritic chest pain, Abdomen/GI: Negative for abdominal pain, nausea, vomiting, diarrhea, and constipation, Back: Negative for injury and pain, : Negative for injury, bleeding, discharge, and swelling, Skin: Negative for injury, rash, and discoloration, Neuro: Negative for headache, weakness, numbness, tingling, and seizure activity. Psych: Negative for depression, anxiety, suicide ideation, homicidal ideation, and hallucinations, Allergy/Immunology: Negative for hives, rash, and allergies, Endocrine: Negative for neck swelling, polydipsia, polyuria, polyphagia, and marked weight changes, Hematologic/Lymphatic: Negative for swollen nodes, abnormal bleeding, and unusual bruising. 17:27 MS/extremity: Positive for injury or acute deformity, decreased range of motion, pain, swelling, tenderness, of the anterior aspect of right shoulder, right bicep, posterior aspect of right shoulder and right tricep, Negative for ecchymosis, erythema, laceration. Exam: 17:27 Constitutional: This is a well developed, well nourished patient who is awake, alert, kdr and in no acute distress. Head/Face: Normocephalic, atraumatic. Eyes: Pupils equal round and reactive to light, extra-ocular motions intact. Lids and lashes normal. Conjunctiva and sclera are non-icteric and not injected. Cornea within normal limits. Periorbital areas with no swelling, redness, or edema. Neck: Trachea midline, no thyromegaly or masses palpated, and no cervical lymphadenopathy. Supple, full range of motion without nuchal rigidity, or vertebral point tenderness. No Meningismus. Chest/axilla: Normal chest wall appearance and motion. Nontender with no deformity. No lesions are appreciated. Cardiovascular: Regular rate and rhythm with a normal S1 and S2. No gallops, murmurs, or rubs. Normal PMI, no JVD. No pulse deficits. Respiratory: Lungs have equal breath sounds bilaterally, clear to auscultation and percussion. No rales, rhonchi or wheezes noted. No increased work of breathing, no retractions or nasal flaring. Back: No spinal tenderness. No costovertebral tenderness. Full range of motion. Skin: Warm, dry with normal turgor. Normal color with no rashes, no lesions, and no evidence of cellulitis. Neuro: Awake and alert, GCS 15, oriented to person, place, time, and situation. Cranial nerves II-XII grossly intact. Motor strength 5/5 in all extremities. Sensory grossly intact. Cerebellar exam normal. Normal gait. Psych: Awake, alert, with orientation to person, place and time. Behavior, mood, and affect are within normal limits. 17:27 Musculoskeletal/extremity: Extremities: grossly normal except: noted in the anterior aspect of right shoulder, right bicep, posterior aspect of right shoulder and right tricep: pain, tenderness, Patient is significantly contracted on the right side of her body status post CVA several years ago., decreased ROM, Pulses: are normal with no appreciated deficits. Vital Signs: 14:00 BP 105 / 87; Pulse 99; Resp 18; Temp 98.1; Pulse Ox 97% ; Weight 55.79 kg; Height 5 ft. ll1 2 in. (157.48 cm); Pain 9/10; 15:15 BP 108 / 82; Pulse 98; Resp 18; Pulse Ox 96% on R/A; kr3 16:27 BP 110 / 84; Pulse 97; Resp 18; Pulse Ox 98% on R/A; kr3 14:00 Body Mass Index 22.50 (55.79 kg, 157.48 cm) ll1 MDM: 16:32 Patient medically screened. kdr 17:27 Data reviewed: vital signs, nurses notes, lab test result(s), EKG, radiologic studies. kdr 10/22 14:46 Order name: Shoulder Right (2 View) XRAY; Complete Time: 16:26 kdr 10/22 14:46 Order name: Elbow Right 3 View XRAY; Complete Time: 16:26 kdr 10/22 14:47 Order name: Humerus Right XRAY; Complete Time: 16:26 kdr 10/22 14:47 Order name: Wrist Right 3 View XRAY; Complete Time: 16:26 kdr 10/22 15:45 Order name: Sling; Complete Time: 16:26 kdr Administered Medications: 15:18 Drug: [place] (HYDROcodone-acetaminophen) (7.5 mg-325 mg) 1 tabs Route: PO; kr3 18:44 Follow up: Response: No adverse reaction kr3 15:46 Drug: Xopenex (levalbuterol) (3) 1.25 mg Route: Inhalation; kr3 18:44 Follow up: Response: No adverse reaction kr3 Disposition Summary: 10/22/22 16:32 Discharge Ordered Location: Home kdr Problem: new kdr Symptoms: have improved kdr Condition: Stable kdr Diagnosis - Comminuted closed right proximal humerus fracture kdr Followup: kdr - With: Private Physician - When: 2 - 3 days - Reason: If symptoms return, Further diagnostic work-up, Recheck today's complaints, Continuance of care, Re-evaluation by your physician Discharge Instructions: - Discharge Summary Sheet kdr - Humerus Fracture Treated With Immobilization, [id number] kdr Forms: - Medication Reconciliation Form kdr - Thank You Letter kdr - Prescription Opioid Use kdr Prescriptions: - Tramadol 50 mg Oral Tablet - take 1 tablet by ORAL route every 8 hours As needed as needed; 16 tablet; kdr Refills: 0, Product Selection Permitted Signatures: Dispatcher [employer] Dennis Gauthier MD MD kdr Lewis, Lynsay RN RN ll1 Makayla Smith RN RN kr3
[2022-10-22 17:33] VITALS: BP 110/84; O2SAT 98
[2022-10-22 17:55] VITALS: TEMP 98.1
== END 2022-10-22 17:44 | disposition home or self-care (01) ==
LOC: ER 13:40
DX: S42.201A Unspecified fracture of upper end of right humerus, initial encounter for closed fracture (principal)
CPT/HCPCS: 73080; 73060; 73030; 73110; J7614; 99284

== ENCOUNTER 2023-05-12 15:51 | Emergency (ER) | payer OTHER ==
--- OUTSIDE RECORDS SUMMARY | 2023-05-12 16:02 | XMS REPORT | Continuity of Care Document ---
:1955 [facility] t Address [address] [facility] [address] [place] [address] Care Team Providers Name Role Phone Dr. Amanda Primary Care Physician GAY CRYSTAL Attending Clinician Unavailable NORIS YE Attending Clinician Unavailable Gay Miles Attending Clinician 2, [facility] Attending Clinician Unavailable Faculty, Pulmonary Attending Clinician Unavailable Kemi Fontenot LMSW Attending Clinician Doctor Unassigned, [place] Attending Clinician Unavailable AMADO TOLBERT Attending Clinician Unavailable MAUREEN MERCADO Attending Clinician Unavailable Pob, [facility] Main Attending Clinician Unavailable Maureen Mercado MD Attending Clinician [phone] JAHAIRA DIAMOND Attending Clinician Unavailable JAHAIRA DIAMOND Attending Clinician Unavailable PUJA FOLEY Attending Clinician Unavailable PUJA FOLEY Attending Clinician Unavailable JOYCE HAJI Attending Clinician Unavailable NEREIDA NORMAN Attending Clinician Unavailable Nida MONCADA, Sarai Coronado Attending Clinician Deena MONCADA, Kyra Attending Clinician Barbra MONCADA, Dutch Attending Clinician Krish MONCADA, Chelo Attending Clinician [phone] Ester MONCADA, Nereida Attending Clinician Fields FIELD AUDITOR, Uyen Attending Clinician Marisela FUENTES, Savanah Jarvis Attending Clinician Unavailable Rober FELDMANP, Kylee Attending Clinician KYLEE CORTEZ Attending Clinician Unavailable Puja Foley DO Attending Clinician JESSICA GRAHAM Attending Clinician Unavailable Anene FIELD AUDITOR, Payton Attending Clinician Ibikunle FIELD AUDITOR, Folusho F Attending Clinician Shawn MONCADA, Reji Attending Clinician Russ MONCADA, Joyce Post Attending Clinician Estela FIELD AUDITOR, Melanie Attending Clinician MELANIE PALMER Attending Clinician Unavailable YARELY MCKEON Attending Clinician Unavailable Provider, [facility] Attending Clinician Unavailable Laurel MONCADA, Froilan Attending Clinician Chester FUENTES, Debby Cannon Attending Clinician Christina Lowe DO Attending Clinician Alex Mccarty MD Attending Clinician Asia MONCADA, Virginia Kumari Attending Clinician [phone] MACHO PORTER Attending Clinician Unavailable Only, [facility] Attending Clinician Unavailable Macho Porter MD Attending Clinician Tio Jade MD Attending Clinician TIO JADE Attending Clinician Unavailable TIO JADE Attending Clinician Unavailable ANYI CHOI Attending Clinician Unavailable VAUGHN ORTEGA Admitting Clinician Unavailable KYRA SHAFFER Admitting Clinician Unavailable Reji Escobar MD Admitting Clinician [place] Betancourt MD Admitting Clinician [phone] ANYI CHOI Admitting Clinician Unavailable Payers Payer Name Policy Type Policy Number Effective Date Expiration Date S jose MEDICARE PART A [id number] 1998 \T\ B 00:00:00 MEDICAID [facility] [id number] 2020 00:00:00 MEDICARE A B [id number] 1998 00:00:00 MEDICAID [facility] [id number] 2011 00:00:00 Problems Condition Condition Condition Status Onset Resolution Last Treating Co mments Source Name Details Category Date Date Treatment Clinician Date At risk At risk Disease Active Univers for falls for falls 03-23 ity of 00:00: [place] [facility] Unspecifie Unspecifie Disease Active U nivers d d 03-23 ity of abnormalit abnormalit [place] of Medical gait and gait and Branch mobility mobility COPD COPD Disease Recurre 2020-[address] exacerbati exacerbati nce 2-22 [facility] on on 00:00: 00 Center Bacteremia Bacteremia Disease Active 2020-[address] [facility] SOB SOB Disease Active 2019-09 Univers (shortness (shortness 0-31 it y of of breath[place] breath[place] Stroke Stroke Disease Active 2018-09 Univers 2- ity of 00:00: [place] [facility] Hypothyroi Hypothyroi Disease Active Overview : Univers dism dism 01-06 [facility] ity of (acquired) (acquired) 00:00: g of this [place] note Medical might be Branch different from the original. ICD10 Diagnosis Term [employer] Vitamin D Vitamin D Disease Active Overview: Univers deficiency deficiency - [facility] ity of 00:00: g of this [place] note Medical might be Branch different from the original. ICD10 Diagnosis Term [employer] Osteoporos Osteoporos Disease Active U laers is is 4-22 ity of 00:00: [place] 00 Medical Branch CVA CVA Disease Active Univers (cerebral (cerebral 01-06 ity of vascular vascular 00:00: [place] accident) accident) [address] [facility] zia Branch Joint Joint Disease Active Univers contractur contractur 01-06 it y of e of hand, e of hand, 00:[place] right right Medical [place] Tobacco Tobacco Disease Active Univers abuse abuse 01-06 ity of 00:00: [place] [facility] Marijuana Marijuana Disease Active Uni vers abuse abuse 01-06 ity of 00:00: [place] [facility] COPD COPD Disease Active Univers exacerbati exacerbati 01-06 it y of on on 00:00: [place] [facility] Allergies, Adverse Reactions, Alerts Allergy Allergy Status Severity Reaction(s) Onset Inactive Treating Comm ents Source Name Type Date Date Clinician Shellfis Drug Active Shortness Of 2019-[address] [facility] Allergy Breath, 04 [facility] Der[facility] Swelling [facility] SHELLFIS Allergy Active High Sob 2019-[address] [facility] [facility] 1-04 [facility] DERIVED 00:00: [facility] Shellfis Propensi Active Swelling 2019-09 Univ ers h ty to 104 ity of Derived adverse 00:00: [place] reaction Medical s Branch SHELLFIS DRUG Active SOB 2019-09 Univers H INGREDI 1-04 ity of DERIVED 00:00: [place] [facility] Codeine Drug Active Swelling throat [facility] 4[facility]03 [facility] 00:[facility]: Medical 00 Center CODEINE Allergy Active High Swelling [facility] 4-03 [facility] Codeine Propensi Active Swelling throat Unive rs ty to 4-03 ity of adverse 00:00: [place] reaction Medical s Branch CODEINE DRUG Active High Swelling Univers INGREDI 4-03 ity of 00:00: [place] [facility] Iodine Drug Active Swelling (shell [facility] Allergy 4-22 fish) [facility] 00:00: throat Medical [facility] IODINE Allergy Active High Swelling [facility] 4-22 [facility] 00:00: [facility] Center Iodine Propensi Active Swelling (shell Univer s ty to 01-06 fish) ity of adverse 00:00: throat [place] reaction 00 swells [facility] s Branch IODINE DRUG Active High Swelling Univers INGREDI 01-06 ity of 00:00: [place] 00 Medical Branch Social History Social Habit Start Date Stop Date Quantity Comments Source Gender identity [facility] Sexual orientation Univer sity of [facility] History SDOH [facility] Alcohol Std Drinks Medica l Center History SDOH [facility] Alcohol Binge Medical [facility] History SDOH [facility] Alcohol Comment Medical C enter History of Social 2023-04-26 2023-04-26 Univers ity of function 00:00:00 00:00:00 [facility] Cigarettes smoked 2022-10-26 2022-10-26 Univers ity of current (pack per 00:00:00 00:00:00 [facility] ) - Reported Branch Cigarette 2022-10-26 2022-10-26 University of pack-years 00:00:00 00:00:00 [facility] Tobacco Comment 2022-10-26 2022-10-26 Used to smoke 2 Univ ersity of 00:00:00 00:00:00 packs per day- [facility] zia quit aug 2020 Branch Exposure to 2022-09-23 2022-10-03 Not sure University of SARS-CoV-2 (event) 00:00:00 09:59:00 [facility] Tobacco use and 2021-09-08 2021-09-[address] [facility] exposure 00:00:00 00:00:00 tobacco non-user Medical Center Alcohol intake 2021-09-08 2021-09-[address] [facility] 00:00:00 00:00:00 non-drinker Medical Cente r (finding) History SDOH 2021-09-08 2021-09-[address] [facility] Alcohol Frequency 00:00:00 00:00:00 Medical Center History of tobacco 2020-06-20 Cigarette Smoker University of use 00:00:00 [facility] Sex Assigned At [address] [facility] 00:00:00 00:00:00 Medical Center Smoking Status Start Date Stop Date Source Ex-smoker 2022-10-26 00:00:00 2022-10-26 00:00:00 [facility] Medical Branch Medications Ordered Filled Start Stop Current Ordering Indication Dosage Frequency Signature Comments Components Source Medication Medication Date Date Medication? Clinician (SIG) Name Name albuterol Yes [id number] 2.5mg Inhale 0.5 Univers 2.5 mg/0.5 8-10 mL every 6 ity of mL 00:00: (six) [place] nebulizer 00 hours as Medica l solution needed for Branc h Wheezing. ipratropium Yes [id number] .5mg Inhale 2.5 Univers 0.02 % 8-10 mL every 8 ity of nebulizer 00:00: (eight) [place] solution 00 hours as Medical needed for Branch Wheezing or Shortness of Breath. ipratropium Yes [id number] .5mg Inhale 2.5 Univers 0.02 % 8-10 mL every 8 ity of nebulizer 00:00: (eight) [place] solution 00 hours as Medical needed for Branch Wheezing or Shortness of Breath. albuterol Yes [id number] 2.5mg Inhale 3 Univers 2.5 mg /3 8-10 mL every 4 ity of mL (0.083 00:00: (four) [place] %) 00 hours as Medical nebulizer needed for Bran ch solution Wheezing or Shortness of Breath. ipratropium Yes [id number] .5mg Inhale 2.5 Univers 0.02 % 8-10 mL every 8 ity of nebulizer 00:00: (eight) [place] solution 00 hours as Medical needed for Branch Wheezing or Shortness of Breath. ipratropium 0 Yes [id number] .5mg Inhale 2.5 Univers 0.02 % 8-10 mL every 8 ity of nebulizer 00:00: (eight) [place] solution 00 hours as Medical needed for Branch Wheezing or Shortness of Breath. albuterol 2022- No [id number] 2.5mg Inhale 0.5 Univers 2.5 mg/0.5 8-10 08-10 mL every 6 it y of mL 00:00: 00:00 (six) [place] nebulizer 00 :00 hours as Medica l solution needed for Branc h Wheezing. albuterol 2022- No [id number] 2.5mg Inhale 0.5 Univers 2.5 mg/0.5 8-10 08-10 mL every 6 it y of mL 00:00: 00:00 (six) [place] nebulizer 00 :00 hours as Medica l solution needed for Branc h Wheezing. albuterol 2022- No [id number] 2.5mg Inhale 0.5 Univers 2.5 mg/0.5 8-10 08-10 mL every 6 it y of mL 00:00: 00:00 (six) [place] nebulizer 00 :00 hours as Medica l solution needed for Branc h Wheezing. TRELEGY Yes [id number] INHALE ONE Univers ELLIPTA 8-03 PUFF BY ity of 200-62.5-25 00:00: MOUTH [place] mcg DsDv 00 EVERY Medical MORNING Branch TRELEGY Yes [id number] INHALE ONE Univers ELLIPTA 8-03 PUFF BY ity of 200-62.5-25 00:00: MOUTH [place] mcg DsDv 00 EVERY Medical MORNING Branch TRELEGY Yes [id number] INHALE ONE Univers ELLIPTA 8-03 PUFF BY ity of 200-62.5-25 00:00: MOUTH [place] mcg DsDv 00 EVERY Medical MORNING Branch TRELEGY 0 Yes [id number] INHALE ONE Univers ELLIPTA 8-03 PUFF BY ity of 200-62.5-25 00:00: MOUTH [place] mcg DsDv 00 EVERY Medical MORNING Branch TRELEGY Yes [id number] INHALE ONE Univers ELLIPTA 8-03 PUFF BY ity of 200-62.5-25 00:00: MOUTH [place] mcg DsDv 00 EVERY Medical MORNING Branch TRELEGY 0 Yes [id number] INHALE ONE Univers ELLIPTA 8-03 PUFF BY ity of 200-62.5-25 00:00: MOUTH [place] mcg DsDv 00 EVERY Medical MORNING Branch TRELEGY Yes [id number] INHALE ONE Univers ELLIPTA 8-03 PUFF BY ity of 200-62.5-25 00:00: MOUTH [place] mcg DsDv 00 EVERY Medical MORNING Branch dexamethaso 2022- No [id number] 8mg Univers ne 03-23- ity of (DECADRON) 18:00: 17:16 [place] injection 8 00 :00 Medical mg Branch dexamethaso 0 2022- No [id number] 8mg 8 mg, [facility] 03-23 Intravenou ity of (DECADRON) 18:00: 17:16 s, ONCE, 1 [place] injection 8 00 :00 dose, On Medi zia mg Sun03/23/23 Branch at 1300, Routine dexamethaso 2022- No [id number] 8mg Univers pa 03-23 ity of (DECADRON) 18:00: 17:16 [place] injection 8 00 :00 Medical mg Branch dexamethaso 2022- No [id number] 8mg 8 mg, [facility] 03-23 Intravenou ity of (DECADRON) 18:00: 17:16 s, ONCE, 1 [place] injection 8 00 :00 dose, On Medi zia mg Sun03/23/23 Branch at 1300, Routine dexamethaso 2022- No [id number] 8mg [facility] 03-23 ity of (DECADRON) 18:00: 17:16 [place] injection 8 00 :00 Medical mg Branch dexamethaso 0 2022- No [id number] 8mg 8 mg, [facility] 03-23 Intravenou ity of (DECADRON) 18:00: 17:16 s, ONCE, 1 [place] injection 8 00 :00 dose, On Medi zia mg Sun03/23/23 Branch at 1300, Routine fluticasone Yes [id number] 1{puff} Inhale 1 Univers -umeclidin- 7-07 Puff in ity o f vilanter 00:00: the [place] (TRELEGY 00 morning. Medical ELLIPTA) Branch 200-62.5-25 mcg DsDv methylPREDN 2022- Yes [id number] Take by Univers ISolone 03-23 mouth ity of (MEDROL, 00:00: SEE-INSTRU Darci as STORMY,) 4 mg 00 CTIONS. Medica l tablets follow Branch package directions fluticasone Yes [id number] 1{puff} Inhale 1 Univers -umeclidin- 7-07 Puff in ity o f vilanter 00:00: the [place] (TRELEGY morning. Medical ELLIPTA) Branch 200-62.5-25 mcg DsDv methylPREDN 2023-0 Yes Take by Univers ISolone 7-07 mouth ity of (MEDROL, 00:00: SEE-INSTRU Darci as STORMY,) 4 mg 00 CTIONS. Medica l tablets follow Branch package directions fluticasone 2023-0 Yes [id number] 1{puff} Inhale 1 Univers -umeclidin- 7-07 Puff in ity o f vilanter 00:00: the [place] (TRELEGY morning. Medical ELLIPTA) Branch 200-62.5-25 mcg DsDv methylPREDN 2023-0 Yes Take by Univers ISolone 7-07 mouth ity of (MEDROL, 00:00: SEE-INSTRU Darci as STORMY,) 4 mg 00 CTIONS. Medica l tablets follow Branch package directions fluticasone 2023-0 Yes [id number] 1{puff} Inhale 1 Univers -umeclidin- 7-07 Puff in ity o f vilanter 00:00: the [place] (TRELEGY morning. Medical ELLIPTA) Branch 200-62.5-25 mcg DsDv methylPREDN 3-0 Yes Take by Univers ISolone 7-07 mouth ity of (MEDROL, 00:00: SEE-INSTRU Darci as STORMY,) 4 mg 00 CTIONS. Medica l tablets follow Branch package directions fluticasone 2023-0 Yes [id number] 1{puff} Inhale 1 Univers -umeclidin- 7-07 Puff in ity o f vilanter 00:00: the [place] (TRELEGY morning. Medical ELLIPTA) Branch 200-62.5-25 mcg DsDv methylPREDN 2023-0 Yes Take by Univers ISolone 7-07 mouth ity of (MEDROL, 00:00: SEE-INSTRU Darci as STORMY,) 4 mg 00 CTIONS. Medica l tablets follow Branch package directions methylPREDN 2023-0 Yes Take by Univers ISolone 7-07 mouth ity of (MEDROL, 00:00: SEE-INSTRU Darci as STORMY,) 4 mg 00 CTIONS. Medica l tablets follow Branch package directions methylPREDN 2022-0 2022- No [id number] Take by [facility] ISolone 03-2310 mouth ity of (MEDROL, 00:00: 00:00 [place] STORMY,) 4 mg 00 :00 CTIONS. Medica l tablets follow Branch package directions methylPREDN 2022-0 2022- No [id number] Take by [facility] ISolone 03-2310 mouth ity of (MEDROL, 00:00: 00:00 [place]INSTRU [place] STORMY,) 4 mg 00 :00 CTIONS. Medica l tablets follow Branch package directions methylPREDN 2022-0 2022- No [id number] Take by [facility] ISolone 03-23 mouth ity of (MEDROL, 00:00: 00:00 [place]INSTRU [place] STORMY,) 4 mg 00 :00 CTIONS. Medica l tablets follow Branch package directions methylPREDN 2022-0 2022- No [id number] Take by [facility] ISolone 03-2310 mouth ity of (MEDROL, 00:00: 00:00 [place]INSTRU [place] STORMY,) 4 mg 00 :00 CTIONS. Medica l tablets follow Branch package directions fluticasone 2022-0 2022- No [id number] 1{puff} Inhale 1 Univers -umeclidin- 03-23 Puff in ity of vilanter 00:00: 00:00 the [place] (TRELEGY 00 :00 morning. Medical ELLIPTA) Branch 200-62.5-25 mcg DsDv ERGOCALCIFE 2023-0 Yes [id number] TAKE ONE Univers ROL, 6-12 CAPSULE BY ity of VITAMIN D2, 00:00: MOUTH ONCE [place] 1,250 mcg 00 WEEKLY Medical (50,000 Branch unit) capsule ERGOCALCIFE 2023-0 Yes [id number] TAKE ONE Univers ROL, 6-12 CAPSULE BY ity of VITAMIN D2, 00:00: MOUTH ONCE [place] 1,250 mcg 00 WEEKLY Medical (50,000 Branch unit) capsule ERGOCALCIFE 2023-0 Yes [id number] TAKE ONE Univers ROL, 6-12 CAPSULE BY ity of VITAMIN D2, 00:00: MOUTH ONCE [place] 1,250 mcg 00 WEEKLY Medical (50,000 Branch unit) capsule ERGOCALCIFE 2023-0 Yes [id number] TAKE ONE Univers ROL, 6-12 CAPSULE BY ity of VITAMIN D2, 00:00: MOUTH ONCE [place] 1,250 mcg 00 WEEKLY Medical (50,000 Branch unit) capsule ERGOCALCIFE 2023-0 Yes [id number] TAKE ONE Univers ROL, 6-12 CAPSULE BY ity of VITAMIN D2, 00:00: MOUTH ONCE [place] 1,250 mcg 00 WEEKLY Medical (50,000 Branch unit) capsule ERGOCALCIFE 2023-0 Yes [id number] TAKE ONE Univers ROL, 6-12 CAPSULE BY ity of VITAMIN D2, 00:00: MOUTH ONCE [place] 1,250 mcg 00 WEEKLY Medical (50,000 Branch unit) capsule ERGOCALCIFE 2023-0 Yes [id number] TAKE ONE Univers ROL, 6-12 CAPSULE BY ity of VITAMIN D2, 00:00: MOUTH ONCE [place] 1,250 mcg 00 WEEKLY Medical (50,000 Branch unit) capsule ERGOCALCIFE 2023-0 Yes [id number] TAKE ONE Univers ROL, 6-12 CAPSULE BY ity of VITAMIN D2, 00:00: MOUTH ONCE [place] 1,250 mcg 00 WEEKLY Medical (50,000 Branch unit) capsule ERGOCALCIFE 2023-0 Yes [id number] TAKE ONE Univers ROL, 6-12 CAPSULE BY ity of VITAMIN D2, 00:00: MOUTH ONCE [place] 1,250 mcg 00 WEEKLY Medical (50,000 Branch unit) capsule ERGOCALCIFE 2023-0 Yes [id number] TAKE ONE Univers ROL, 6-12 CAPSULE BY ity of VITAMIN D2, 00:00: MOUTH ONCE [place] 1,250 mcg 00 WEEKLY Medical (50,000 Branch unit) capsule ERGOCALCIFE 2023-0 Yes [id number] TAKE ONE Univers ROL, 6-12 CAPSULE BY ity of VITAMIN D2, 00:00: MOUTH ONCE [place] 1,250 mcg 00 WEEKLY Medical (50,000 Branch unit) capsule ERGOCALCIFE 2023-0 Yes [id number] TAKE ONE Univers ROL, 6-12 CAPSULE BY ity of VITAMIN D2, 00:00: MOUTH ONCE [place] 1,250 mcg 00 WEEKLY Medical (50,000 Branch unit) capsule ERGOCALCIFE 2023-0 Yes [id number] TAKE ONE Univers ROL, 6-12 CAPSULE BY ity of VITAMIN D2, 00:00: MOUTH ONCE [place] 1,250 mcg 00 WEEKLY Medical (50,000 Branch unit) capsule ERGOCALCIFE 2023-0 Yes [id number] TAKE ONE Univers ROL, 6-12 CAPSULE BY ity of VITAMIN D2, 00:00: MOUTH ONCE [place] 1,250 mcg 00 WEEKLY Medical (50,000 Branch unit) capsule ERGOCALCIFE 3-0 Yes [id number] TAKE ONE Univers ROL, 6-12 CAPSULE BY ity of VITAMIN D2, 00:00: MOUTH ONCE [place] 1,250 mcg 00 WEEKLY Medical (50,000 Branch unit) capsule ERGOCALCIFE 3-0 Yes [id number] TAKE ONE Univers ROL, 6-12 CAPSULE BY ity of VITAMIN D2, 00:00: MOUTH ONCE [place] 1,250 mcg 00 WEEKLY Medical (50,000 Branch unit) capsule ERGOCALCIFE 2023-0 Yes [id number] TAKE ONE Univers ROL, 6-12 CAPSULE BY ity of VITAMIN D2, 00:00: MOUTH ONCE [place] 1,250 mcg 00 WEEKLY Medical (50,000 Branch unit) capsule albuterol 2022-0 Yes [id number] 2{puff} Inhale 2 Univers 90 3-09 Puffs ity of mcg/actuati 00:00: every 4 [place] as on inhaler 00 (four) Medical hours as Branch needed for Wheezing or Shortness of Breath. albuterol Yes [id number] 2{puff} Inhale 2 Univers 90 3-09 Puffs ity of mcg/actuati 00:00: every 4 [place] as on inhaler 00 (four) Medical hours as Branch needed for Wheezing or Shortness of Breath. albuterol Yes [id number] 2{puff} Inhale 2 Univers 90 3-09 Puffs ity of mcg/actuati 00:00: every 4 [place] as on inhaler 00 (four) Medical hours as Branch needed for Wheezing or Shortness of Breath. albuterol 2022-0 Yes [id number] 2{puff} Inhale 2 Univers 90 3-09 Puffs ity of mcg/actuati 00:00: every 4 [place] as on inhaler 00 (four) Medical hours as Branch needed for Wheezing or Shortness of Breath. albuterol 2022-0 Yes [id number] 2{puff} Inhale 2 Univers 90 3-09 Puffs ity of mcg/actuati 00:00: every 4 [place] as on inhaler 00 (four) Medical hours as Branch needed for Wheezing or Shortness of Breath. albuterol Yes [id number] 2{puff} Inhale 2 Univers 90 3-09 Puffs ity of mcg/actuati 00:00: every 4 [place] as on inhaler 00 (four) Medical hours as Branch needed for Wheezing or Shortness of Breath. albuterol Yes [id number] 2{puff} Inhale 2 Univers 90 3-09 Puffs ity of mcg/actuati 00:00: every 4 [place] as on inhaler 00 (four) Medical hours as Branch needed for Wheezing or Shortness of Breath. albuterol Yes [id number] 2{puff} Inhale 2 Univers 90 3-09 Puffs ity of mcg/actuati 00:00: every 4 [place]arc[place] as on inhaler 00 (four) Medical hours as Branch needed for Wheezing or Shortness of Breath. albuterol Yes [id number] 2{puff} Inhale 2 Univers 90 3-09 Puffs ity of mcg/actuati 00:00: every 4 [place] as on inhaler 00 (four) Medical hours as Branch needed for Wheezing or Shortness of Breath. albuterol Yes [id number] 2{puff} Inhale 2 Univers 90 3-09 Puffs ity of mcg/actuati 00:00: every 4 [place] as on inhaler 00 (four) Medical hours as Branch needed for Wheezing or Shortness of Breath. albuterol Yes [id number] 2{puff} Inhale 2 Univers 90 3-09 Puffs ity of mcg/actuati 00:00: every 4 [place]arc[place] as on inhaler 00 (four) Medical hours as Branch needed for Wheezing or Shortness of Breath. albuterol Yes [id number] 2{puff} Inhale 2 Univers 90 3-09 Puffs ity of mcg/actuati 00:00: every 4 [place] as on inhaler 00 (four) Medical hours as Branch needed for Wheezing or Shortness of Breath. albuterol Yes [id number] 2{puff} Inhale 2 Univers 90 3-09 Puffs ity of mcg/actuati 00:00: every 4 [place]arc[place] as on inhaler 00 (four) Medical hours as Branch needed for Wheezing or Shortness of Breath. albuterol Yes [id number] 2{puff} Inhale 2 Univers 90 3-09 Puffs ity of mcg/actuati 00:00: every 4 [place]arc[place] as on inhaler 00 (four) Medical hours as Branch needed for Wheezing or Shortness of Breath. albuterol Yes [id number] 2{puff} Inhale 2 Univers 90 3-09 Puffs ity of mcg/actuati 00:00: every 4 [place]arc[place] as on inhaler 00 (four) Medical hours as Branch needed for Wheezing or Shortness of Breath. albuterol Yes [id number] 2{puff} Inhale 2 Univers 90 3-09 Puffs ity of mcg/actuati 00:00: every 4 Darci as on inhaler 00 (four) Medical hours as Branch needed for Wheezing or Shortness of Breath. albuterol Yes [id number] 2{puff} Inhale 2 Univers 90 3-09 Puffs ity of mcg/actuati 00:00: every 4 [place]arc[place] as on inhaler 00 (four) Medical hours as Branch needed for Wheezing or Shortness of Breath. albuterol Yes [id number] 2{puff} Inhale 2 Univers 90 3-09 Puffs ity of mcg/actuati 00:00: every 4 Darci as on inhaler 00 (four) Medical hours as Branch needed for Wheezing or Shortness of Breath. albuterol Yes [id number] 2{puff} Inhale 2 Univers 90 3-09 Puffs ity of mcg/actuati 00:00: every 4 Darc[place] as on inhaler 00 (four) Medical hours as Branch needed for Wheezing or Shortness of Breath. albuterol Yes [id number] 2{puff} Inhale 2 Univers 90 3-09 Puffs ity of mcg/actuati 00:00: every 4 [place]arc[place] as on inhaler 00 (four) Medical hours as Branch needed for Wheezing or Shortness of Breath. albuterol Yes [id number] 2{puff} Inhale 2 Univers 90 3-09 Puffs ity of mcg/actuati 00:00: every 4 Darci as on inhaler 00 (four) Medical hours as Branch needed for Wheezing or Shortness of Breath. ergocalcife 2023-0 Yes [id number] Take 1 Univers rol, 2-13 capsule by ity of vitamin d2, 00:00: mouth [place] 1,250 mcg 00 weekly. Medical (50,000 Branch unit) capsule ergocalcife 2023-0 Yes [id number] Take 1 Univers rol, 2-13 capsule by ity of vitamin d2, 00:00: mouth [place] 1,250 mcg 00 weekly. Medical (50,000 Branch unit) capsule ergocalcife 2023-0 Yes [id number] Take 1 Univers rol, 2-13 capsule by ity of vitamin d2, 00:00: mouth [place] 1,250 mcg 00 weekly. Medical (50,000 Branch unit) capsule ergocalcife 2023-0 Yes [id number] Take 1 Univers rol, 2-13 capsule by ity of vitamin d2, 00:00: mouth [place] 1,250 mcg 00 weekly. Medical (50,000 Branch unit) capsule ergocalcife 2023-0 Yes [id number] Take 1 Univers rol, 2-13 capsule by ity of vitamin d2, 00:00: mouth [place] 1,250 mcg 00 weekly. Medical (50,000 Branch unit) capsule ergocalcife 2023-0 2023- No [id number] Take 1 Univers rol, 2-13 06-12 capsule by ity of vitamin d2, 00:00: 00:00 [place] 1,250 mcg 00 :00 weekly. Medical (50,000 Branch unit) capsule traMADoL 50 2022-0 Yes TAKE 1 Univ ers mg tablet 2-05 TABLET BY ity o f 00:00: MOUTH [place] 00 EVERY 8 Medical HOURS Branch NEEDED traMADoL 50 2022-0 Yes TAKE 1 Univ ers mg tablet 2-05 TABLET BY ity o f 00:00: MOUTH [place] 00 EVERY 8 Medical HOURS Branch NEEDED traMADoL 50 2022-0 Yes TAKE 1 Univ ers mg tablet 2-05 TABLET BY ity o f 00:00: MOUTH [place] 00 EVERY 8 Medical HOURS Branch NEEDED traMADoL 50 2022-0 Yes TAKE 1 Univ ers mg tablet 2-05 TABLET BY ity o f 00:00: MOUTH [place] 00 EVERY 8 Medical HOURS Branch NEEDED traMADoL 50 2022-0 Yes TAKE 1 Univ ers mg tablet 2-05 TABLET BY ity o f 00:00: MOUTH [place] 00 EVERY 8 Medical HOURS Branch NEEDED traMADoL 50 3-0 Yes TAKE 1 Univ ers mg tablet 2-05 TABLET BY ity o f 00:00: MOUTH [place] 00 EVERY 8 Medical HOURS Branch NEEDED traMADoL 50 3-0 Yes TAKE 1 [facility] mg tablet 2-05 TABLET BY ity o f 00:00: MOUTH [place] 00 EVERY 8 Medical HOURS Branch NEEDED traMADoL 50 3-0 Yes TAKE 1 [facility] mg tablet 2-05 TABLET BY ity o f 00:00: MOUTH [place] 00 EVERY 8 Medical HOURS Branch NEEDED traMADoL 50 3-0 Yes TAKE 1 [facility] mg tablet 2-05 TABLET BY ity o f 00:00: MOUTH [place] 00 EVERY 8 Medical HOURS Branch NEEDED traMADoL 50 3-0 Yes TAKE 1 [facility] mg tablet 2-05 TABLET BY ity o f 00:00: MOUTH [place] 00 EVERY 8 Medical HOURS Branch NEEDED traMADoL 50 3-0 Yes TAKE 1 [facility] mg tablet 2-05 TABLET BY ity o f 00:00: MOUTH [place] 00 EVERY 8 Medical HOURS Branch NEEDED traMADoL 50 3-0 Yes TAKE 1 [facility] mg tablet 2-05 TABLET BY ity o f 00:00: MOUTH [place] 00 EVERY 8 Medical HOURS Branch NEEDED traMADoL 50 3-0 3- No TAKE 1 [facility] mg tablet 2-01 21- TABLET BY [facility] of 00:00: 00:00 [facility] [place] 00 :00 EVERY 8 Medical HOURS Branch NEEDED traMADoL 50 2023-0 3- No TAKE 1 [facility] mg tablet 2-01 21-07 TABLET BY ity of 00:00: 00:00 [facility] [place] 00 :00 EVERY 8 Medical HOURS Branch NEEDED traMADoL 50 2023-0 3- No TAKE 1 [facility] mg tablet 2-01 21-07 TABLET BY ity of 00:00: 00:00 [facility] [place] 00 :00 EVERY 8 Medical HOURS Branch NEEDED CLOPIDOGREL 2023-0 Yes [id number] TAKE ONE [facility] 75 mg 1-27 TABLET BY ity of tablet 00:00: MOUTH [place] 00 DAILY Medical Branch CLOPIDOGREL 2023-0 Yes [id number] TAKE ONE [facility] 75 mg 1-27 TABLET BY ity of tablet 00:00: MOUTH [place] 00 DAILY Medical Branch CLOPIDOGREL 2023-0 Yes [id number] TAKE ONE [facility] 75 mg 1-27 TABLET BY ity of tablet 00:00: [facility] DAILY Medical Branch CLOPIDOGREL 2023-0 Yes [id number] TAKE ONE [facility] 75 mg 1-27 TABLET BY ity of tablet 00:00: [facility] 00 DAILY Medical Branch CLOPIDOGREL 2023-0 Yes [id number] TAKE ONE [facility] 75 mg 1-27 TABLET BY ity of tablet 00:00: [facility] DAILY Medical Branch CLOPIDOGREL 2023-0 Yes [id number] TAKE ONE [facility] 75 mg 1-27 TABLET BY ity of tablet 00:00: [facility] DAILY Medical Branch CLOPIDOGREL 2023-0 Yes [id number] TAKE ONE [facility] 75 mg 1-27 TABLET BY ity of tablet 00:00: [facility] DAILY Medical Branch CLOPIDOGREL 2023-0 Yes [id number] TAKE ONE [facility] 75 mg 1-27 TABLET BY ity of tablet 00:00: [facility] DAILY Medical Branch CLOPIDOGREL 2023-0 Yes [id number] TAKE ONE [facility] 75 mg 1-27 TABLET BY ity of tablet 00:00: [facility] DAILY Medical Branch CLOPIDOGREL 2023-0 Yes [id number] TAKE ONE [facility] 75 mg 1-27 TABLET BY ity of tablet 00:00: [facility] DAILY Medical Branch CLOPIDOGREL 2023-0 Yes [id number] TAKE ONE [facility] 75 mg 1-27 TABLET BY ity of tablet 00:00: [facility] DAILY Medical Branch CLOPIDOGREL 2023-0 Yes [id number] TAKE ONE [facility] 75 mg 1-27 TABLET BY ity of tablet 00:00: [facility] DAILY Medical Branch CLOPIDOGREL 2023-0 Yes [id number] TAKE ONE [facility] 75 mg 1-27 TABLET BY ity of tablet 00:00: [facility] DAILY Medical Branch CLOPIDOGREL 2023-0 Yes [id number] TAKE ONE [facility] 75 mg 1-27 TABLET BY ity of tablet 00:00: [facility] DAILY Medical Branch CLOPIDOGREL 2023-0 Yes [id number] TAKE ONE [facility] 75 mg 1-27 TABLET BY ity of tablet 00:00: [facility] DAILY Medical Branch CLOPIDOGREL 2023-0 Yes [id number] TAKE ONE [facility] 75 mg 1-27 TABLET BY ity of tablet 00:00: [facility] DAILY Medical Branch CLOPIDOGREL 2023-0 Yes [id number] TAKE ONE [facility] 75 mg 1-27 TABLET BY ity of tablet 00:00: [facility] DAILY Medical Branch CLOPIDOGREL 2023-0 Yes [id number] TAKE ONE [facility] 75 mg 1-27 TABLET BY ity of tablet 00:00: [facility] 00 DAILY Medical Branch CLOPIDOGREL 2023-0 Yes [id number] TAKE ONE [facility] 75 mg 1-27 TABLET BY ity of tablet 00:00: [facility] 00 DAILY Medical Branch CLOPIDOGREL 2023-0 Yes [id number] TAKE ONE [facility] 75 mg 1-27 TABLET BY ity of tablet 00:00: [facility] 00 DAILY Medical Branch CLOPIDOGREL 2023-0 Yes [id number] TAKE ONE [facility] 75 mg 1-27 TABLET BY ity of tablet 00:00: [facility] 00 DAILY Medical Branch CLOPIDOGREL 2023-0 Yes [id number] TAKE ONE [facility] 75 mg 1-27 TABLET BY ity of tablet 00:00: [facility] DAILY Medical Branch CLOPIDOGREL 2023-0 Yes [id number] TAKE ONE [facility] 75 mg 1-27 TABLET BY ity of tablet 00:00: [facility] DAILY Medical Branch CLOPIDOGREL 2023-0 Yes [id number] TAKE ONE [facility] 75 mg 1-27 TABLET BY ity of tablet 00:00: [facility] 00 DAILY Medical Branch CLOPIDOGREL 2023-0 Yes [id number] TAKE ONE [facility] 75 mg 1-27 TABLET BY ity of tablet 00:00: [facility] 00 DAILY Medical Branch CLOPIDOGREL 2023-0 Yes [id number] TAKE ONE [facility] 75 mg 1-27 TABLET BY ity of tablet 00:00: [facility] 00 DAILY Medical Branch CLOPIDOGREL 2023-0 Yes [id number] TAKE ONE [facility] 75 mg 1-27 TABLET BY ity of tablet 00:00: [facility] DAILY Medical Branch CLOPIDOGREL 2023-0 Yes [id number] TAKE ONE [facility] 75 mg 1-27 TABLET BY ity of tablet 00:00: [facility] DAILY Medical Branch LEVOTHYROXI 2022-1 Yes [id number] TAKE ONE [facility] NE 25 mcg 2-14 TABLET BY ity o f tablet 00:00: [facility] EVERY Medical MORNING Branch LEVOTHYROXI 2021- Yes [id number] TAKE ONE [facility] NE 25 mcg 2-14 TABLET BY ity o f tablet 00:00: [facility] EVERY Medical MORNING Branch LEVOTHYROXI 2021-1 Yes [id number] TAKE ONE [facility] NE 25 mcg 2-14 TABLET BY ity o f tablet 00:00: [facility] EVERY Medical MORNING Branch LEVOTHYROXI 2021-09 Yes [id number] TAKE ONE [facility] NE 25 mcg 2-14 TABLET BY ity o f tablet 00:00: MOUTH [place] 00 EVERY Medical MORNING Branch LEVOTHYROXI 2021-09 Yes [id number] TAKE ONE [facility] NE 25 mcg 2-14 TABLET BY ity o f tablet 00:00: MOUTH [place] 00 EVERY Medical MORNING Branch LEVOTHYROXI 2021-09 Yes [id number] TAKE ONE [facility] NE 25 mcg 2-14 TABLET BY ity o f tablet 00:00: MOUTH [place] 00 EVERY Medical MORNING Branch LEVOTHYROXI 2021-09 Yes [id number] TAKE ONE [facility] NE 25 mcg 2-14 TABLET BY ity o f tablet 00:00: MOUTH [place] 00 EVERY Medical MORNING Branch LEVOTHYROXI 2021-09 Yes [id number] TAKE ONE [facility] NE 25 mcg 2-14 TABLET BY ity o f tablet 00:00: MOUTH [place] 00 EVERY Medical MORNING Branch LEVOTHYROXI 2021-09 Yes [id number] TAKE ONE [facility] NE 25 mcg 2-14 TABLET BY ity o f tablet 00:00: MOUTH [place] 00 EVERY Medical MORNING Branch LEVOTHYROXI 2021-09 Yes [id number] TAKE ONE [facility] NE 25 mcg 2-14 TABLET BY ity o f tablet 00:00: MOUTH [place] 00 EVERY Medical MORNING Branch LEVOTHYROXI 2021-09 Yes [id number] TAKE ONE [facility] NE 25 mcg 2-14 TABLET BY ity o f tablet 00:00: MOUTH [place] 00 EVERY Medical MORNING Branch LEVOTHYROXI 2021-09 Yes [id number] TAKE ONE [facility] NE 25 mcg 2-14 TABLET BY ity o f tablet 00:00: MOUTH [place] 00 EVERY Medical MORNING Branch LEVOTHYROXI 2021-09 Yes [id number] TAKE ONE [facility] NE 25 mcg 2-14 TABLET BY ity o f tablet 00:00: MOUTH [place] 00 EVERY Medical MORNING Branch LEVOTHYROXI 2021-09 Yes [id number] TAKE ONE [facility] NE 25 mcg 2-14 TABLET BY ity o f tablet 00:00: MOUTH [place] 00 EVERY Medical MORNING Branch LEVOTHYROXI 2021-09 Yes [id number] TAKE ONE [facility] NE 25 mcg 2-14 TABLET BY ity o f tablet 00:00: MOUTH [place] 00 EVERY Medical MORNING Branch LEVOTHYROXI 2021-09 Yes [id number] TAKE ONE [facility] NE 25 mcg 2-14 TABLET BY ity o f tablet 00:00: MOUTH [place] 00 EVERY Medical MORNING Branch LEVOTHYROXI 2021-09 Yes [id number] TAKE ONE [facility] NE 25 mcg 2-14 TABLET BY ity o f tablet 00:00: MOUTH [place] 00 EVERY Medical MORNING Branch LEVOTHYROXI 2021-09 Yes [id number] TAKE ONE [facility] NE 25 mcg 2-14 TABLET BY ity o f tablet 00:00: MOUTH [place] 00 EVERY Medical MORNING Branch LEVOTHYROXI 2021-09 Yes [id number] TAKE ONE [facility] NE 25 mcg 2-14 TABLET BY ity o f tablet 00:00: MOUTH [place] 00 EVERY Medical MORNING Branch LEVOTHYROXI 2021-09 Yes [id number] TAKE ONE [facility] NE 25 mcg 2-14 TABLET BY ity o f tablet 00:00: MOUTH [place] 00 EVERY Medical MORNING Branch LEVOTHYROXI 2021-09 Yes [id number] TAKE ONE [facility] NE 25 mcg 2-14 TABLET BY ity o f tablet 00:00: MOUTH [place] 00 EVERY Medical MORNING Branch LEVOTHYROXI 2021-09 Yes [id number] TAKE ONE [facility] NE 25 mcg 2-14 TABLET BY ity o f tablet 00:00: MOUTH [place] 00 EVERY Medical MORNING Branch LEVOTHYROXI 2021-09 Yes [id number] TAKE ONE [facility] NE 25 mcg 2-14 TABLET BY ity o f tablet 00:00: MOUTH [place] 00 EVERY Medical MORNING Branch LEVOTHYROXI 2021-09 Yes [id number] TAKE ONE [facility] NE 25 mcg 2-14 TABLET BY ity o f tablet 00:00: MOUTH [place] 00 EVERY Medical MORNING Branch LEVOTHYROXI 2021-09 Yes [id number] TAKE ONE [facility] NE 25 mcg 2-14 TABLET BY ity o f tablet 00:00: MOUTH [place] 00 EVERY Medical MORNING Branch LEVOTHYROXI 2021-09 Yes [id number] TAKE ONE [facility] NE 25 mcg 2-14 TABLET BY ity o f tablet 00:00: MOUTH [place] 00 EVERY Medical MORNING Branch LEVOTHYROXI 2021-09 Yes [id number] TAKE ONE [facility] NE 25 mcg 2-14 TABLET BY ity o f tablet 00:00: MOUTH [place] 00 EVERY Medical MORNING Branch LEVOTHYROXI 2021-09 Yes [id number] TAKE ONE [facility] NE 25 mcg 2-14 TABLET BY ity o f tablet 00:00: MOUTH [place] 00 EVERY Medical MORNING Branch LEVOTHYROXI 2021-09 Yes [id number] TAKE ONE [facility] NE 25 mcg 2-14 TABLET BY ity o f tablet 00:00: MOUTH [address] 2021-09 Yes [id number] TAKE ONE [facility] N 20 mg 0-17 TABLET BY ity of tablet 00:00: MOUTH AT [address] 2021-09 Yes [id number] TAKE ONE [facility] N 20 mg 0-17 TABLET BY ity of tablet 00:00: MOUTH AT [address] 2021-09 Yes [id number] TAKE ONE [facility] N 20 mg 0-17 TABLET BY ity of tablet 00:00: MOUTH AT [address] 2021-09 Yes [id number] TAKE ONE [facility] N 20 mg 0-17 TABLET BY ity of tablet 00:00: MOUTH AT [address] 2021-09 Yes [id number] TAKE ONE [facility] N 20 mg 0-17 TABLET BY ity of tablet 00:00: MOUTH AT [address] 2021-09 Yes [id number] TAKE ONE [facility] N 20 mg 0-17 TABLET BY ity of tablet 00:00: MOUTH AT [address] 2021-09 Yes [id number] TAKE ONE [facility] N 20 mg 0-17 TABLET BY ity of tablet 00:00: MOUTH AT [address] 2021-09 Yes [id number] TAKE ONE [facility] N 20 mg 0-17 TABLET BY ity of tablet 00:00: MOUTH AT [address] 2021-09 Yes [id number] TAKE ONE [facility] N 20 mg 0-17 TABLET BY ity of tablet 00:00: MOUTH AT [address] 2021-09 Yes [id number] TAKE ONE [facility] N 20 mg 0-17 TABLET BY ity of tablet 00:00: MOUTH AT [address] 2021-09 Yes [id number] TAKE ONE [facility] N 20 mg 0-17 TABLET BY ity of tablet 00:00: MOUTH AT [address] 2021-09 Yes [id number] TAKE ONE [facility] N 20 mg 0-17 TABLET BY ity of tablet 00:00: MOUTH AT [address] 2021-09 Yes [id number] TAKE ONE [facility] N 20 mg 0-17 TABLET BY ity of tablet 00:00: MOUTH AT [address] 2021-09 Yes [id number] TAKE ONE [facility] N 20 mg 0-17 TABLET BY ity of tablet 00:00: MOUTH AT [address] 2021-09 Yes [id number] TAKE ONE [facility] N 20 mg 0-17 TABLET BY ity of tablet 00:00: MOUTH AT [address] 2021-09 Yes [id number] TAKE ONE [facility] N 20 mg 0-17 TABLET BY ity of tablet 00:00: MOUTH AT [address] 2021-09 Yes [id number] TAKE ONE [facility] N 20 mg 0-17 TABLET BY ity of tablet 00:00: MOUTH AT [address] 2021-09 Yes [id number] TAKE ONE [facility] N 20 mg 0-17 TABLET BY ity of tablet 00:00: MOUTH AT [address] 2021-09 Yes [id number] TAKE ONE [facility] N 20 mg 0-17 TABLET BY ity of tablet 00:00: MOUTH AT [address] 2021-09 Yes [id number] TAKE ONE [facility] N 20 mg 0-17 TABLET BY ity of tablet 00:00: MOUTH AT [address] 2021-09 Yes [id number] TAKE ONE [facility] N 20 mg 0-17 TABLET BY ity of tablet 00:00: MOUTH AT [address] 2021-09 Yes [id number] TAKE ONE [facility] N 20 mg 0-17 TABLET BY ity of tablet 00:00: MOUTH AT [address] 2021-09 Yes [id number] TAKE ONE [facility] N 20 mg 0-17 TABLET BY ity of tablet 00:00: MOUTH AT [address] 2021-09 Yes [id number] TAKE ONE [facility] N 20 mg 0-17 TABLET BY ity of tablet 00:00: MOUTH AT [address] 2021-09 Yes [id number] TAKE ONE [facility] N 20 mg 0-17 TABLET BY ity of tablet 00:00: MOUTH AT [place] [facility] 2021-09 Yes [id number] TAKE ONE [facility] N 20 mg 0-17 TABLET BY ity of tablet 00:00: MOUTH AT [place] [facility] 2021-09 Yes [id number] TAKE ONE [facility] N 20 mg 0-17 TABLET BY ity of tablet 00:00: MOUTH AT [place] [facility]09 Yes [id number] TAKE ONE [facility] N 20 mg 0-17 TABLET BY ity of tablet 00:00: MOUTH AT [place] [facility] 2021-09 Yes [id number] TAKE ONE [facility] N 20 mg 0-17 TABLET BY ity of tablet 00:00: MOUTH AT [place] [facility] 2021-09 Yes [id number] TAKE ONE [facility] N 20 mg 0-17 TABLET BY ity of tablet 00:00: MOUTH AT [place] [facility] DULoxetine 2021-09 Yes 30mg Take 30 mg U nivers 30 mg 0-14 by mouth ity of capsule 11:08: in the [place] [address] morning. Medical Take with Branch 60mg capsule DULoxetine 2021-09 Yes 60mg Take 60 mg U nivers 60 mg 0-14 by mouth ity of capsule 11:08: in the [place] [address] morning. Medical Take with Branch 30mg capsule DULoxetine 2021-09 Yes 30mg Take 30 mg U nivers 30 mg 0-14 by mouth ity of capsule 11:08: in the [place] [address] morning. Medical Take with Branch 60mg capsule DULoxetine 2021- Yes 60mg Take 60 mg U nivers 60 mg 0-14 by mouth ity of capsule 11:08: in the [place] [address] morning. Medical Take with Branch 30mg capsule DULoxetine 2021- Yes 30mg Take 30 mg U nivers 30 mg 0-14 by mouth ity of capsule 11:08: in the [place] [address] morning. Medical Take with Branch 60mg capsule DULoxetine 2021- Yes 60mg Take 60 mg U nivers 60 mg 0-14 by mouth ity of capsule 11:08: in the [place] [address] morning. Medical Take with Branch 30mg capsule DULoxetine 2021-1 Yes 30mg Take 30 mg U nivers 30 mg 0-14 by mouth ity of capsule 11:08: in the [place] [address] morning. Medical Take with Branch 60mg capsule DULoxetine 2-1 Yes 60mg Take 60 mg U nivers 60 mg 0-14 by mouth ity of capsule 11:08: in the [place] [address] morning. Medical Take with Branch 30mg capsule DULoxetine 2-1 Yes 30mg Take 30 mg U nivers 30 mg 0-14 by mouth ity of capsule 11:08: in the [place] [address] morning. Medical Take with Branch 60mg capsule DULoxetine 2-1 Yes 60mg Take 60 mg U nivers 60 mg 0-14 by mouth ity of capsule 11:08: in the [place] [address] morning. Medical Take with Branch 30mg capsule DULoxetine 2-1 Yes 30mg Take 30 mg U nivers 30 mg 0-14 by mouth ity of capsule 11:08: in the [place] [address] morning. Medical Take with Branch 60mg capsule DULoxetine 2-1 Yes 60mg Take 60 mg U nivers 60 mg 0-14 by mouth ity of capsule 11:08: in the [place] [address] morning. Medical Take with Branch 30mg capsule DULoxetine 2-1 Yes 30mg Take 30 mg U nivers 30 mg 0-14 by mouth ity of capsule 11:08: in the [place] [address] morning. Medical Take with Branch 60mg capsule DULoxetine 2-1 Yes 60mg Take 60 mg U nivers 60 mg 0-14 by mouth ity of capsule 11:08: in the [place] [address] morning. Medical Take with Branch 30mg capsule DULoxetine 2-1 Yes 30mg Take 30 mg U nivers 30 mg 0-14 by mouth ity of capsule 11:08: in the [place] [address] morning. Medical Take with Branch 60mg capsule DULoxetine 2-1 Yes 60mg Take 60 mg U nivers 60 mg 0-14 by mouth ity of capsule 11:08: in the [place] [address] morning. Medical Take with Branch 30mg capsule DULoxetine 2022-1 Yes 30mg Take 30 mg U nivers 30 mg 0-14 by mouth ity of capsule 11:08: in the [place] [address] morning. Medical Take with Branch 60mg capsule DULoxetine 2022-1 Yes 60mg Take 60 mg U nivers 60 mg 0-14 by mouth ity of capsule 11:08: in the [place] [address] morning. Medical Take with Branch 30mg capsule DULoxetine 2-1 Yes 30mg Take 30 mg U nivers 30 mg 0-14 by mouth ity of capsule 11:08: in the [place] [address] morning. Medical Take with Branch 60mg capsule DULoxetine 2-1 Yes 60mg Take 60 mg U nivers 60 mg 0-14 by mouth ity of capsule 11:08: in the [place] [address] morning. Medical Take with Branch 30mg capsule DULoxetine 2-1 Yes 30mg Take 30 mg U nivers 30 mg 0-14 by mouth ity of capsule 11:08: in the [place] [address] morning. Medical Take with Branch 60mg capsule DULoxetine 2-1 Yes 60mg Take 60 mg U nivers 60 mg 0-14 by mouth ity of capsule 11:08: in the [place] [address] morning. Medical Take with Branch 30mg capsule DULoxetine 2-1 Yes 30mg Take 30 mg U nivers 30 mg 0-14 by mouth ity of capsule 11:08: in the [place] [address] morning. Medical Take with Branch 60mg capsule DULoxetine 2-1 Yes 60mg Take 60 mg U nivers 60 mg 0-14 by mouth ity of capsule 11:08: in the [place] [address] morning. Medical Take with Branch 30mg capsule DULoxetine 2-1 Yes 30mg Take 30 mg U nivers 30 mg 0-14 by mouth ity of capsule 11:08: in the [place] [address] morning. Medical Take with Branch 60mg capsule DULoxetine 2-1 Yes 60mg Take 60 mg U nivers 60 mg 0-14 by mouth ity of capsule 11:08: in the [place] [address] morning. Medical Take with Branch 30mg capsule DULoxetine 2-1 Yes 30mg Take 30 mg U nivers 30 mg 0-14 by mouth ity of capsule 11:08: in the [place] [address] morning. Medical Take with Branch 60mg capsule DULoxetine 2-1 Yes 60mg Take 60 mg U nivers 60 mg 0-14 by mouth ity of capsule 11:08: in the [place] [address] morning. Medical Take with Branch 30mg capsule DULoxetine 2-1 Yes 30mg Take 30 mg U nivers 30 mg 0-14 by mouth ity of capsule 11:08: in the [place] [address] morning. Medical Take with Branch 60mg capsule DULoxetine 2-1 Yes 60mg Take 60 mg U nivers 60 mg 0-14 by mouth ity of capsule 11:08: in the [place] [address] morning. Medical Take with Branch 30mg capsule DULoxetine 2-1 Yes 30mg Take 30 mg U nivers 30 mg 0-14 by mouth ity of capsule 11:08: in the [place] [address] morning. Medical Take with Branch 60mg capsule DULoxetine 2-1 Yes 60mg Take 60 mg U nivers 60 mg 0-14 by mouth ity of capsule 11:08: in the [place] [address] morning. Medical Take with Branch 30mg capsule DULoxetine 2-1 Yes 30mg Take 30 mg U nivers 30 mg 0-14 by mouth ity of capsule 11:08: in the [place] [address] morning. Medical Take with Branch 60mg capsule DULoxetine 2-1 Yes 60mg Take 60 mg U nivers 60 mg 0-14 by mouth ity of capsule 11:08: in the [place] [address] morning. Medical Take with Branch 30mg capsule DULoxetine 2-1 Yes 30mg Take 30 mg U nivers 30 mg 0-14 by mouth ity of capsule 11:08: in the [place] [address] morning. Medical Take with Branch 60mg capsule DULoxetine 2-1 Yes 60mg Take 60 mg U nivers 60 mg 0-14 by mouth ity of capsule 11:08: in the [place] [address] morning. Medical Take with Branch 30mg capsule DULoxetine 2-1 Yes 30mg Take 30 mg U nivers 30 mg 0-14 by mouth ity of capsule 11:08: in the [place] [address] morning. Medical Take with Branch 60mg capsule DULoxetine 2-1 Yes 60mg Take 60 mg U nivers 60 mg 0-14 by mouth ity of capsule 11:08: in the [place] [address] morning. Medical Take with Branch 30mg capsule DULoxetine 2-1 Yes 30mg Take 30 mg U nivers 30 mg 0-14 by mouth ity of capsule 11:08: in the [place] [address] morning. Medical Take with Branch 60mg capsule DULoxetine 2-1 Yes 60mg Take 60 mg U nivers 60 mg 0-14 by mouth ity of capsule 11:08: in the [place] [address] morning. Medical Take with Branch 30mg capsule DULoxetine 2022-1 Yes 30mg Take 30 mg U nivers 30 mg 0-14 by mouth ity of capsule 11:08: in the [place] [address] morning. Medical Take with Branch 60mg capsule DULoxetine 2022-1 Yes 60mg Take 60 mg U nivers 60 mg 0-14 by mouth ity of capsule 11:08: in the [place] [address] morning. Medical Take with Branch 30mg capsule DULoxetine 2-1 Yes 30mg Take 30 mg U nivers 30 mg 0-14 by mouth ity of capsule 11:08: in the [place] [address] morning. Medical Take with Branch 60mg capsule DULoxetine 2-1 Yes 60mg Take 60 mg U nivers 60 mg 0-14 by mouth ity of capsule 11:08: in the [place] [address] morning. Medical Take with Branch 30mg capsule DULoxetine 2-1 Yes 30mg Take 30 mg U nivers 30 mg 0-14 by mouth ity of capsule 11:08: in the [place] [address] morning. Medical Take with Branch 60mg capsule DULoxetine 2-1 Yes 60mg Take 60 mg U nivers 60 mg 0-14 by mouth ity of capsule 11:08: in the [place] [address] morning. Medical Take with Branch 30mg capsule DULoxetine 2-1 Yes 30mg Take 30 mg U nivers 30 mg 0-14 by mouth ity of capsule 11:08: in the [place] [address] morning. Medical Take with Branch 60mg capsule DULoxetine 2-1 Yes 60mg Take 60 mg U nivers 60 mg 0-14 by mouth ity of capsule 11:08: in the [place] [address] morning. Medical Take with Branch 30mg capsule DULoxetine 2-1 Yes 30mg Take 30 mg U nivers 30 mg 0-14 by mouth ity of capsule 11:08: in the [place] [address] morning. Medical Take with Branch 60mg capsule DULoxetine 2-1 Yes 60mg Take 60 mg U nivers 60 mg 0-14 by mouth ity of capsule 11:08: in the [place] [address] morning. Medical Take with Branch 30mg capsule DULoxetine 2-1 Yes 30mg Take 30 mg U nivers 30 mg 0-14 by mouth ity of capsule 11:08: in the [place] [address] morning. Medical Take with Branch 60mg capsule DULoxetine 2022-1 Yes 60mg Take 60 mg U nivers 60 mg 0-14 by mouth ity of capsule 11:08: in the [place] [address] morning. Medical Take with Branch 30mg capsule DULoxetine 2022-1 Yes 30mg Take 30 mg U nivers 30 mg 0-14 by mouth ity of capsule 11:08: in the [place] [address] morning. Medical Take with Branch 60mg capsule DULoxetine 2-1 Yes 60mg Take 60 mg U nivers 60 mg 0-14 by mouth ity of capsule 11:08: in the [place] [address] morning. Medical Take with Branch 30mg capsule DULoxetine 2-1 Yes 30mg Take 30 mg U nivers 30 mg 0-14 by mouth ity of capsule 11:08: in the [place] [address] morning. Medical Take with Branch 60mg capsule DULoxetine 2-1 Yes 60mg Take 60 mg U nivers 60 mg 0-14 by mouth ity of capsule 11:08: in the [place] [address] morning. Medical Take with Branch 30mg capsule DULoxetine 2-1 Yes 30mg Take 30 mg U nivers 30 mg 0-14 by mouth ity of capsule 11:08: in the [place] [address] morning. Medical Take with Branch 60mg capsule DULoxetine 2-1 Yes 60mg Take 60 mg U nivers 60 mg 0-14 by mouth ity of capsule 11:08: in the [place] [address] morning. Medical Take with Branch 30mg capsule DULoxetine 2-1 Yes 30mg Take 30 mg U nivers 30 mg 0-14 by mouth ity of capsule 11:08: in the [place] [address] morning. Medical Take with Branch 60mg capsule DULoxetine 2-1 Yes 60mg Take 60 mg U nivers 60 mg 0-14 by mouth ity of capsule 11:08: in the [place] [address] morning. Medical Take with Branch 30mg capsule DULoxetine 2-1 Yes 30mg Take 30 mg U nivers 30 mg 0-14 by mouth ity of capsule 11:08: in the [place] [address] morning. Medical Take with Branch 60mg capsule DULoxetine 2-1 Yes 60mg Take 60 mg U nivers 60 mg 0-14 by mouth ity of capsule 11:08: in the [place] [address] morning. Medical Take with Branch 30mg capsule DULoxetine 2022-1 Yes 30mg Take 30 mg U nivers 30 mg 0-14 by mouth ity of capsule 11:08: in the [place] [address] morning. Medical Take with Branch 60mg capsule DULoxetine 2022-1 Yes 60mg Take 60 mg U nivers 60 mg 0-14 by mouth ity of capsule 11:08: in the [place] [address] morning. Medical Take with Branch 30mg capsule DULoxetine 2022-0 Yes 30mg Take 30 mg U nivers 30 mg 8-15 by mouth ity of capsule 12:48: in the [place] [address] morning. Medical Take with Branch 60mg capsule DULoxetine 2021-0 Yes 60mg Take 60 mg U nivers 60 mg 8-15 by mouth ity of capsule 12:48: in the [place] [address] morning. Medical Take with Branch 30mg capsule DULoxetine 2021-0 Yes 30mg Take 30 mg U nivers 30 mg 8-15 by mouth ity of capsule 12:48: in the [place] [address] morning. Medical Take with Branch 60mg capsule DULoxetine 2021-0 Yes 60mg Take 60 mg [facility] nivers 60 mg 8-15 by mouth ity of capsule 12:48: in the [place] [address] morning. Medical Take with Branch 30mg capsule tiotropium 2021-0 Yes [id number] 18ug Inhale 1 [facility] 18 mcg 8-15 capsule in ity of inhalation 00:00: the [place] [address] morning. Medical Branch albuterol 0 Yes [id number] 2{puff} Inhale 2 [facility] 90 8-15 Puffs ity of mcg/actuati 00:00: every 4 [place] on inhaler 00 (four) Medical hours as Branch needed for Wheezing or Shortness of Breath. tiotropium 2021-0 Yes 18ug Inhale 1 [facility] 18 mcg 8-15 capsule in ity of inhalation 00:00: the [place] morning. Medical Branch albuterol 0 Yes [id number] 2{puff} Inhale 2 [facility] 90 8-15 Puffs ity of mcg/actuati 00:00: every 4 [place] on inhaler 00 (four) Medical hours as Branch needed for Wheezing or Shortness of Breath. tiotropium 2021-0 Yes 18ug Inhale 1 [facility] 18 mcg 8-15 capsule in ity of inhalation 00:00: the [place] 00 morning. Medical Branch tiotropium 2021-0 Yes [id number] 18ug Inhale 1 [facility] 18 mcg 8-15 capsule in ity of inhalation 00:00: the [place] 00 morning. Medical Branch tiotropium 2021-0 Yes [id number] 18ug Inhale 1 [facility] 18 mcg 8-15 capsule in ity of inhalation 00:00: the [place] 00 morning. Medical Branch tiotropium 2021-0 Yes [id number] 18ug Inhale 1 [facility] 18 mcg 8-15 capsule in ity of inhalation 00:00: the [place] 00 morning. Medical Branch tiotropium 0 Yes 18ug Inhale 1 [facility] 18 mcg 8-15 capsule in ity of inhalation 00:00: the [place] morning. Medical Branch tiotropium 0 Yes 18ug Inhale 1 [facility] 18 mcg 8-15 capsule in ity of inhalation 00:00: the [place] morning. Medical Branch tiotropium 0 Yes 18ug Inhale 1 [facility] 18 mcg 8-15 capsule in ity of inhalation 00:00: the [place] morning. Medical Branch tiotropium 0 Yes 18ug Inhale 1 [facility] 18 mcg 8-15 capsule in ity of inhalation 00:00: the [place] morning. Medical Branch albuterol 0 Yes [id number] 2{puff} Inhale 2 [facility] 90 8-15 Puffs ity of mcg/actuati 00:00: every 4 [place] on inhaler 00 (four) Medical hours as Branch needed for Wheezing or Shortness of Breath. tiotropium 0 Yes 18ug Inhale 1 [facility] 18 mcg 8-15 capsule in ity of inhalation 00:00: the [place] morning. Medical Branch albuterol 0 Yes [id number] 2{puff} Inhale 2 [facility] 90 8-15 Puffs ity of mcg/actuati 00:00: every 4 [place] on inhaler 00 (four) Medical hours as Branch needed for Wheezing or Shortness of Breath. tiotropium 0 Yes 18ug Inhale 1 [facility] 18 mcg 8-15 capsule in ity of inhalation 00:00: the [place] morning. Medical Branch albuterol 0 Yes [id number] 2{puff} Inhale 2 [facility] 90 8-15 Puffs ity of mcg/actuati 00:00: every 4 [place] on inhaler 00 (four) Medical hours as Branch needed for Wheezing or Shortness of Breath. tiotropium 2021-0 Yes 18ug Inhale 1 [facility] 18 mcg 8-15 capsule in ity of inhalation 00:00: the [place] morning. Medical Branch albuterol 2021-0 Yes [id number] 2{puff} Inhale 2 [facility] 90 8-15 Puffs ity of mcg/actuati 00:00: every 4 [place] on inhaler 00 (four) Medical hours as Branch needed for Wheezing or Shortness of Breath. tiotropium 0 Yes [id number] 18ug Inhale 1 [facility] 18 mcg 8-15 capsule in ity of inhalation 00:00: the [place] 00 morning. Medical Branch albuterol 0 Yes [id number] 2{puff} Inhale 2 [facility] 90 8-15 Puffs ity of mcg/actuati 00:00: every 4 [place] on inhaler 00 (four) Medical hours as Branch needed for Wheezing or Shortness of Breath. tiotropium 0 Yes [id number] 18ug Inhale 1 [facility] 18 mcg 8-15 capsule in ity of inhalation 00:00: the [place] 00 morning. Medical Branch albuterol 0 Yes [id number] 2{puff} Inhale 2 [facility] 90 8-15 Puffs ity of mcg/actuati 00:00: every 4 [place] on inhaler 00 (four) Medical hours as Branch needed for Wheezing or Shortness of Breath. tiotropium 0 Yes [id number] 18ug Inhale 1 [facility] 18 mcg 8-15 capsule in ity of inhalation 00:00: the [place] morning. Medical Branch albuterol 0 Yes [id number] 2{puff} Inhale 2 [facility] 90 8-15 Puffs ity of mcg/actuati 00:00: every 4 [place] on inhaler 00 (four) Medical hours as Branch needed for Wheezing or Shortness of Breath. tiotropium 0 Yes [id number] 18ug Inhale 1 [facility] 18 mcg 8-15 capsule in ity of inhalation 00:00: the [place] 00 morning. Medical Branch albuterol 0 Yes [id number] 2{puff} Inhale 2 [facility] 90 8-15 Puffs ity of mcg/actuati 00:00: every 4 [place] on inhaler 00 (four) Medical hours as Branch needed for Wheezing or Shortness of Breath. tiotropium 2021-0 Yes [id number] 18ug Inhale 1 [facility] 18 mcg 8-15 capsule in ity of inhalation 00:00: the [place] morning. Medical Branch albuterol Yes [id number] 2{puff} Inhale 2 [facility] 90 8-15 Puffs ity of mcg/actuati 00:00: every 4 [place] on inhaler 00 (four) Medical hours as Branch needed for Wheezing or Shortness of Breath. tiotropium Yes [id number] 18ug Inhale 1 [facility] 18 mcg 8-15 capsule in ity of inhalation 00:00: the [place] 00 morning. Medical Branch albuterol Yes [id number] 2{puff} Inhale 2 [facility] 90 8-15 Puffs ity of mcg/actuati 00:00: every 4 [place] on inhaler 00 (four) Medical hours as Branch needed for Wheezing or Shortness of Breath. tiotropium Yes [id number] 18ug Inhale 1 [facility] 18 mcg 8-15 capsule in ity of inhalation 00:00: the [place] 00 morning. Medical Branch albuterol Yes [id number] 2{puff} Inhale 2 [facility] 90 8-15 Puffs ity of mcg/actuati 00:00: every 4 [place] on inhaler 00 (four) Medical hours as Branch needed for Wheezing or Shortness of Breath. tiotropium 2022- No [id number] 18ug Inhale 1 [facility] 18 mcg 8-15 07-07 capsule in ity of inhalation 00:00: 00:00 the [place] 00 :00 morning. Medical Branch tiotropium 2022- No [id number] 18ug Inhale 1 [facility] 18 mcg 8-15 07-07 capsule in ity of inhalation 00:00: 00:00 the [place] 00 :00 morning. Medical Branch tiotropium 2022- No [id number] 18ug Inhale 1 [facility] 18 mcg 8-15 07-07 capsule in ity of inhalation 00:00: 00:00 the [place] 00 :00 morning. Medical Branch albuterol 2022- No [id number] 2{puff} Inhale 2 [facility] 90 8-15 03-09 Puffs ity of mcg/actuati 00:00: 00:00 every 4 [place] on inhaler 00 :00 (four) Medical hours as Branch needed for Wheezing or Shortness of Breath. albuterol Yes [id number] 2.5mg Inhale 3 [facility] 2.5 mg /3 4-27 mL every 4 ity of mL (0.083 00:00: (four) [place] %) 00 hours. May Medical nebulizer also Branch solution nebulize one extra every 6 hours. albuterol 2-0 Yes [id number] 2.5mg Inhale 3 [facility] 2.5 mg /3 4-27 mL every 4 ity of mL (0.083 00:00: (four) [place] %) 00 hours. May Medical nebulizer also Branch solution nebulize one extra every 6 hours. albuterol 2-0 Yes [id number] 2.5mg Inhale 3 [facility] 2.5 mg /3 4-27 mL every 4 ity of mL (0.083 00:00: (four) [place] %) 00 hours. May Medical nebulizer also Branch solution nebulize one extra every 6 hours. albuterol 2-0 Yes [id number] 2.5mg Inhale 3 [facility] 2.5 mg /3 4-27 mL every 4 ity of mL (0.083 00:00: (four) [place] %) 00 hours. May Medical nebulizer also Branch solution nebulize one extra every 6 hours. albuterol 2-0 Yes [id number] 2.5mg Inhale 3 [facility] 2.5 mg /3 4-27 mL every 4 ity of mL (0.083 00:00: (four) [place] %) 00 hours. May Medical nebulizer also Branch solution nebulize one extra every 6 hours. albuterol 2-0 Yes [id number] 2.5mg Inhale 3 [facility] 2.5 mg /3 4-27 mL every 4 ity of mL (0.083 00:00: (four) [place] %) 00 hours. May Medical nebulizer also Branch solution nebulize one extra every 6 hours. albuterol 2022-0 Yes [id number] 2.5mg Inhale 3 [facility] 2.5 mg /3 4-27 mL every 4 ity of mL (0.083 00:00: (four) [place] %) 00 hours. May Medical nebulizer also Branch solution nebulize one extra every 6 hours. albuterol 2022-0 Yes [id number] 2.5mg Inhale 3 [facility] 2.5 mg /3 4-27 mL every 4 ity of mL (0.083 00:00: (four) [place] %) 00 hours. May Medical nebulizer also Branch solution nebulize one extra every 6 hours. albuterol 2022-0 Yes [id number] 2.5mg Inhale 3 [facility] 2.5 mg /3 4-27 mL every 4 ity of mL (0.083 00:00: (four) [place] %) 00 hours. May Medical nebulizer also Branch solution nebulize one extra every 6 hours. albuterol 2022-0 Yes [id number] 2.5mg Inhale 3 [facility] 2.5 mg /3 4-27 mL every 4 ity of mL (0.083 00:00: (four) [place] %) 00 hours. May Medical nebulizer also Branch solution nebulize one extra every 6 hours. albuterol 2-0 Yes [id number] 2.5mg Inhale 3 [facility] 2.5 mg /3 4-27 mL every 4 ity of mL (0.083 00:00: (four) [place] %) 00 hours. May Medical nebulizer also Branch solution nebulize one extra every 6 hours. albuterol 2-0 Yes [id number] 2.5mg Inhale 3 [facility] 2.5 mg /3 4-27 mL every 4 ity of mL (0.083 00:00: (four) [place] %) 00 hours. May Medical nebulizer also Branch solution nebulize one extra every 6 hours. albuterol 2022-0 Yes [id number] 2.5mg Inhale 3 [facility] 2.5 mg /3 4-27 mL every 4 ity of mL (0.083 00:00: (four) [place] %) 00 hours. May Medical nebulizer also Branch solution nebulize one extra every 6 hours. albuterol 2022-0 Yes [id number] 2.5mg Inhale 3 [facility] 2.5 mg /3 4-27 mL every 4 ity of mL (0.083 00:00: (four) [place] %) 00 hours. May Medical nebulizer also Branch solution nebulize one extra every 6 hours. albuterol 2022-0 Yes [id number] 2.5mg Inhale 3 [facility] 2.5 mg /3 4-27 mL every 4 ity of mL (0.083 00:00: (four) [place] %) 00 hours. May Medical nebulizer also Branch solution nebulize one extra every 6 hours. albuterol 2022-0 Yes [id number] 2.5mg Inhale 3 [facility] 2.5 mg /3 4-27 mL every 4 ity of mL (0.083 00:00: (four) [place] %) 00 hours. May Medical nebulizer also Branch solution nebulize one extra every 6 hours. albuterol 2022-0 Yes [id number] 2.5mg Inhale 3 [facility] 2.5 mg /3 4-27 mL every 4 ity of mL (0.083 00:00: (four) [place] %) 00 hours. May Medical nebulizer also Branch solution nebulize one extra every 6 hours. albuterol 2-0 Yes [id number] 2.5mg Inhale 3 [facility] 2.5 mg /3 4-27 mL every 4 ity of mL (0.083 00:00: (four) [place] %) 00 hours. May Medical nebulizer also Branch solution nebulize one extra every 6 hours. albuterol 2-0 Yes [id number] 2.5mg Inhale 3 [facility] 2.5 mg /3 4-27 mL every 4 ity of mL (0.083 00:00: (four) [place] %) 00 hours. May Medical nebulizer also Branch solution nebulize one extra every 6 hours. albuterol 2022-0 Yes [id number] 2.5mg Inhale 3 [facility] 2.5 mg /3 4-27 mL every 4 ity of mL (0.083 00:00: (four) [place] %) 00 hours. May Medical nebulizer also Branch solution nebulize one extra every 6 hours. albuterol 2022-0 Yes [id number] 2.5mg Inhale 3 [facility] 2.5 mg /3 4-27 mL every 4 ity of mL (0.083 00:00: (four) [place] %) 00 hours. May Medical nebulizer also Branch solution nebulize one extra every 6 hours. albuterol 2022-0 Yes [id number] 2.5mg Inhale 3 [facility] 2.5 mg /3 4-27 mL every 4 ity of mL (0.083 00:00: (four) [place] %) 00 hours. May Medical nebulizer also Branch solution nebulize one extra every 6 hours. albuterol 2022-0 Yes [id number] 2.5mg Inhale 3 [facility] 2.5 mg /3 4-27 mL every 4 ity of mL (0.083 00:00: (four) [place] %) 00 hours. May Medical nebulizer also Branch solution nebulize one extra every 6 hours. albuterol 2-0 Yes [id number] 2.5mg Inhale 3 [facility] 2.5 mg /3 4-27 mL every 4 ity of mL (0.083 00:00: (four) [place] %) 00 hours. May Medical nebulizer also Branch solution nebulize one extra every 6 hours. albuterol 2-0 Yes [id number] 2.5mg Inhale 3 [facility] 2.5 mg /3 4-27 mL every 4 ity of mL (0.083 00:00: (four) [place] %) 00 hours. May Medical nebulizer also Branch solution nebulize one extra every 6 hours. albuterol 2-0 Yes [id number] 2.5mg Inhale 3 [facility] 2.5 mg /3 4-27 mL every 4 ity of mL (0.083 00:00: (four) [place] %) 00 hours. May Medical nebulizer also Branch solution nebulize one extra every 6 hours. albuterol 2-0 Yes [id number] 2.5mg Inhale 3 [facility] 2.5 mg /3 4-27 mL every 4 ity of mL (0.083 00:00: (four) [place] %) 00 hours. May Medical nebulizer also Branch solution nebulize one extra every 6 hours. albuterol 2-0 Yes [id number] 2.5mg Inhale 3 [facility] 2.5 mg /3 4-27 mL every 4 ity of mL (0.083 00:00: (four) [place] %) 00 hours. May Medical nebulizer also Branch solution nebulize one extra every 6 hours. albuterol 2022-0 Yes [id number] 2.5mg Inhale 3 [facility] 2.5 mg /3 4-27 mL every 4 ity of mL (0.083 00:00: (four) [place] %) 00 hours. May Medical nebulizer also Branch solution nebulize one extra every 6 hours. albuterol 2-0 Yes [id number] 2.5mg Inhale 3 [facility] 2.5 mg /3 4-27 mL every 4 ity of mL (0.083 00:00: (four) [place] %) 00 hours. May Medical nebulizer also Branch solution nebulize one extra every 6 hours. albuterol 2-0 Yes [id number] 2.5mg Inhale 3 [facility] 2.5 mg /3 4-27 mL every 4 ity of mL (0.083 00:00: (four) [place] %) 00 hours. May Medical nebulizer also Branch solution nebulize one extra every 6 hours. albuterol 2-0 Yes [id number] 2.5mg Inhale 3 [facility] 2.5 mg /3 4-27 mL every 4 ity of mL (0.083 00:00: (four) [place] %) 00 hours. May Medical nebulizer also Branch solution nebulize one extra every 6 hours. albuterol 2-0 3- No [id number] 2.5mg Inhale 3 [facility] 2.5 mg /3 4-27 08-10 mL every 4 ity of mL (0.083 00:00: 00:00 (four) [place] %) 00 :00 hours. May Medical nebulizer also Branch solution nebulize one extra every 6 hours. albuterol 2-0 3- No [id number] 2.5mg Inhale 3 [facility] 2.5 mg /3 4-27 08-10 mL every 4 ity of mL (0.083 00:00: 00:00 (four) [place] %) 00 :00 hours. May Medical nebulizer also Branch solution nebulize one extra every 6 hours. albuterol 2-0 3- No [id number] 2.5mg Inhale 3 [facility] 2.5 mg /3 4-27 08-10 mL every 4 ity of mL (0.083 00:00: 00:00 (four) [place] %) 00 :00 hours. May Medical nebulizer also Branch solution nebulize one extra every 6 hours. albuterol 2-0 3- No [id number] 2.5mg Inhale 3 [facility] 2.5 mg /3 4-27 08-10 mL every 4 ity of mL (0.083 00:00: 00:00 (four) [place] %) 00 :00 hours. May Medical nebulizer also Branch solution nebulize one extra every 6 hours. polyethylen 2020-09 No 17g Take 17 g [...] for 2 PgBk days. levothyroxi 2020-09 Yes [id number] 25ug Take 1 [facility] ne 25 mcg 2-09 tablet by ity o f tablet 00:00: mouth [place] 00 every Medical morning. Branch clopidogreL 2020-09 Yes [id number] 75mg Take 1 [facility] 75 mg 2-09 tablet by ity of tablet 00:00: mouth [place] 00 daily. Medical Branch levothyroxi 2020-09 Yes [id number] 25ug Take 1 [facility] ne 25 mcg 2-09 tablet by ity o f tablet 00:00: mouth [place] 00 every Medical morning. Branch clopidogreL 2020-09 Yes [id number] 75mg Take 1 [facility] 75 mg 2-09 tablet by ity of tablet 00:00: mouth [place] 00 daily. Medical Branch levothyroxi 2020-09 Yes [id number] 25ug Take 1 [facility] ne 25 mcg 2-09 tablet by ity o f tablet 00:00: mouth [place] 00 every Medical morning. Branch clopidogreL 2020-09 Yes [id number] 75mg Take 1 [facility] 75 mg 2-09 tablet by ity of tablet 00:00: mouth [place] 00 daily. Medical Branch levothyroxi 2020-09 Yes [id number] 25ug Take 1 [facility] ne 25 mcg 2-09 tablet by ity o f tablet 00:00: mouth [place] 00 every Medical morning. Branch clopidogreL 2020-09 Yes [id number] 75mg Take 1 [facility] 75 mg 2-09 tablet by ity of tablet 00:00: mouth [place] 00 daily. Medical Branch levothyroxi 2020-09 Yes [id number] 25ug Take 1 [facility] ne 25 mcg 2-09 tablet by ity o f tablet 00:00: mouth [place] 00 every Medical morning. Branch clopidogreL 2020-09 Yes [id number] 75mg Take 1 [facility] 75 mg 2-09 tablet by ity of tablet 00:00: mouth [place] 00 daily. Medical Branch levothyroxi 2020-09 Yes [id number] 25ug Take 1 [facility] ne 25 mcg 2-09 tablet by ity o f tablet 00:00: mouth [place] 00 every Medical morning. Branch clopidogreL 2020-09 Yes [id number] 75mg Take 1 [facility] 75 mg 2-09 tablet by ity of tablet 00:00: mouth [place] 00 daily. Medical Branch levothyroxi 2020-09 Yes [id number] 25ug Take 1 [facility] ne 25 mcg 2-09 tablet by ity o f tablet 00:00: mouth [place] 00 every Medical morning. Branch clopidogreL 2020-09 Yes [id number] 75mg Take 1 [facility] 75 mg 2-09 tablet by ity of tablet 00:00: mouth [place] 00 daily. [facility] Branch levothyroxi 2020-09 Yes [id number] 25ug Take 1 [facility] ne 25 mcg 2-09 tablet by ity o f tablet 00:00: mouth [place] 00 every Medical morning. Branch clopidogreL 2020-09 Yes [id number] 75mg Take 1 [facility] 75 mg 2-09 tablet by ity of tablet 00:00: mouth [place] 00 daily. [facility] Branch levothyroxi 2020-09 Yes [id number] 25ug Take 1 [facility] ne 25 mcg 2-09 tablet by ity o f tablet 00:00: mouth [place] 00 every Medical morning. Branch clopidogreL 2020-09 Yes [id number] 75mg Take 1 [facility] 75 mg 2-09 tablet by ity of tablet 00:00: mouth [place] 00 daily. [facility] Branch clopidogreL 2020-09 Yes [id number] 75mg Take 1 [facility] 75 mg 2-09 tablet by ity of tablet 00:00: mouth [place] 00 daily. [facility] Branch clopidogreL 2020-09 Yes 1{tbl} QD Take [address] [facility] [address] [facility] (PLAVIX) 75 2-09 tablet by [place] [facility] mg tablet 00:00: mouth Medical 00 daily. [place] levothyroxi 2020-09 Yes 1{tbl} QD Take [address] [facility] [address] [facility] ne 2-09 tablet by [facility] (SYNTHROID, 00:00: mouth Medic al LEVOTHROID) 00 every Center 25 MCG morning. tablet clopidogreL 2020-09 Yes 1{tbl} QD Take [address] [facility] [address] [facility] (PLAVIX) 75 2-09 tablet by [place] [facility] mg tablet 00:00: mouth Medical 00 daily. [place] levothyroxi 2020-09 Yes 1{tbl} QD Take [address] [facility] [address] [facility] ne 2-09 tablet by [facility] (SYNTHROID, 00:00: mouth Medic al LEVOTHROID) 00 every Center 25 MCG morning. tablet clopidogreL 2020-09 Yes 1{tbl} QD Take [address] [facility] [address] [facility] (PLAVIX) 75 2-09 tablet by [place] [facility] mg tablet 00:00: mouth Medical 00 daily. [place] levothyroxi 2020-09 Yes 1{tbl} QD Take 1 [...] 25 MCG morning. tablet clopidogreL 2020-09- No [id number] 75mg Take 1 [facility] 75 mg 2-27 tablet by ity of tablet 00:00: 00:00 mouth [place] 00 :00 daily. Medical Branch levothyroxi 2020-09- No [id number] 25ug Take 1 [facility] ne 25 mcg 10-26 12-14 tablet by ity of tablet 00:00: 00:00 mouth [place] 00 :00 every Medical morning. Branch albuterol 2020-09 Yes [id number] 2{puff} Inhale 2 [facility] 90 2-07 Puffs ity of mcg/actuati 00:00: every 4 [place] on inhaler 00 (four) Medical hours as Branch needed for Wheezing or Shortness of Breath. predniSONE 2020-09 Yes [id number] 50mg Take 1 [facility] 50 mg 2-07 tablet by ity of tablet 00:00: mouth [place] 00 daily. Medical Branch benzonatate 2020-09 Yes [id number] 200mg Take 1 [facility] 200 mg 2-07 capsule by ity of capsule 00:00: mouth 3 [place] 00 (three) Medical times Branch daily as needed for Cough. albuterol 2020-09 Yes [id number] 2{puff} Inhale 2 [facility] 90 2-07 Puffs ity of mcg/actuati 00:00: every 4 [place] on inhaler 00 (four) Medical hours as Branch needed for Wheezing or Shortness of Breath. predniSONE 2020-09 Yes [id number] 50mg Take 1 [facility] 50 mg 2-07 tablet by ity of tablet 00:00: mouth [place] 00 daily. Medical Branch benzonatate 2020-09 Yes [id number] 200mg Take 1 [facility] 200 mg 2-07 capsule by ity of capsule 00:00: mouth 3 [place] 00 (three) Medical times Branch daily as needed for Cough. albuterol 2020-09 Yes [id number] 2{puff} Inhale 2 [facility] 90 2-07 Puffs ity of mcg/actuati 00:00: every 4 [place] on inhaler 00 (four) Medical hours as Branch needed for Wheezing or Shortness of Breath. predniSONE 2020-09 Yes [id number] 50mg Take 1 [facility] 50 mg 2-07 tablet by ity of tablet 00:00: mouth [place] 00 daily. Medical Branch benzonatate 2020-09 Yes [id number] 200mg Take 1 [facility] 200 mg 2-07 capsule by ity of capsule 00:00: mouth 3 [place] 00 (three) Medical times Branch daily as needed for Cough. albuterol 2020-09 Yes [id number] 2{puff} Inhale 2 [facility] 90 2-07 Puffs ity of mcg/actuati 00:00: every 4 [place] on inhaler 00 (four) Medical hours as Branch needed for Wheezing or Shortness of Breath. predniSONE 2020-09 Yes [id number] 50mg Take 1 [facility] 50 mg 2-07 tablet by ity of tablet 00:00: mouth [place] 00 daily. Medical Branch benzonatate 2020-09 Yes [id number] 200mg Take 1 [facility] 200 mg 2-07 [...] 00:00: mouth Medical tablet 00 daily. Center benzonatate 2020-09 Yes 200mg Take [address] [facility] (TESSALON) 2-07 [facility] MG 00:00: mouth 3 Medical capsule 00 (three) Center times daily as needed. predniSONE 2020-09 Yes 1{tbl} QD Take [address] [facility] (DELTASONE) 2-07 tablet by [place] [facility] 50 MG 00:00: mouth Medical tablet 00 daily. [place] benzonatate 2020-09 Yes 200mg Take [address] [facility] (TESSALON) 2-07 mg [facility] 200 MG 00:00: mouth 3 Medical capsule 00 (three) Center times daily as needed. predniSONE 2020-09 Yes 1{tbl} QD Take [address] [facility] (DELTASONE) 2-07 tablet by [place] [facility] 50 MG 00:00: mouth Medical tablet 00 daily. [place] benzonatate 2020-09 Yes 200mg Take [address] [facility] (TESSALON) 2-07 [facility] 200 MG 00:00: mouth 3 Medical capsule 00 (three) Center times daily as needed. predniSONE 2020-09 Yes 1{tbl} QD Take [address] [facility] (DELTASONE) 2-07 tablet by [place] [facility] 50 MG 00:00: mouth Medical tablet 00 daily. [place] benzonatate 2020-09 Yes 200mg Take [address] [facility] (TESSALON) 2-07 [facility] 200 MG 00:00: mouth 3 Medical capsule 00 (three) Center times daily as needed. predniSONE 2020-09 Yes 1{tbl} QD Take [address] [facility] (DELTASONE) 2-07 tablet by [place] [facility] 50 MG 00:00: mouth Medical tablet 00 daily. [place] albuterol 2020-09- No [id number] 2{puff} Inhale 2 [facility] 90 2 08-15 Puffs ity of mcg/actuati 00:00: 00:00 every 4 [place] on inhaler 00 :00 (four) Medical hours as Branch needed for Wheezing or Shortness of Breath. predniSONE 2020-09- No [id number] 50mg Take 1 [facility] 50 mg 2- 08-15 tablet by ity of tablet 00:00: 00:00 mouth [place] 00 :00 daily. Medical Branch benzonatate 2020-09- No [id number] 200mg Take 1 [facility] 200 mg 2- 08-15 capsule by ity of capsule 00:00: 00:00 mouth 3 [place] 00 :00 (three) Medical times Branch daily as needed for Cough. famotidine 2020-09 Yes [id number] 40mg Take 1 [facility] 40 mg 1-16 tablet by ity of tablet 00:00: mouth [place] 00 daily. Medical Branch famotidine 2020-09 Yes [id number] 40mg Take 1 [facility] 40 mg 1-16 tablet by ity of tablet 00:00: mouth [place] 00 daily. Medical Branch famotidine 2020-09 Yes [id number] 40mg Take 1 [facility] 40 mg 1-16 tablet by ity of tablet 00:00: mouth [place] 00 daily. Medical Branch famotidine 2020-09 Yes [id number] 40mg Take 1 [facility] 40 mg 1-16 tablet by ity of tablet 00:00: mouth [place] 00 daily. Medical Branch famotidine 2020-09 Yes [id number] 40mg Take 1 [facility] 40 mg 1-16 tablet by ity of tablet 00:00: mouth [place] 00 daily. [facility] Branch famotidine 2020-09 Yes [id number] 40mg Take 1 [facility] 40 mg 1-16 tablet by ity of tablet 00:00: mouth [place] 00 daily. Medical Branch famotidine 2020-09 Yes [id number] 40mg Take 1 [facility] 40 mg 1-16 tablet by ity of tablet 00:00: mouth [place] 00 daily. Medical Branch famotidine 2020-09 Yes [id number] 40mg Take 1 [facility] 40 mg 1-16 tablet by ity of tablet 00:00: mouth [place] 00 daily. Medical Branch famotidine 2020-09 Yes [id number] 40mg Take 1 [facility] 40 mg 1-16 tablet by ity of tablet 00:00: mouth [place] 00 daily. Medical Branch famotidine 2020-09 Yes [id number] 40mg Take 1 [facility] 40 mg 1-16 tablet by ity of tablet 00:00: mouth [place] 00 daily. [facility] Branch famotidine 2020-09 Yes [id number] 40mg Take 1 [facility] 40 mg 1-16 tablet by ity of tablet 00:00: mouth [place] 00 daily. Medical Branch famotidine 2020-09 Yes [id number] 40mg Take 1 [facility] 40 mg 1-16 tablet by ity of tablet 00:00: mouth [place] 00 daily. [facility] Branch famotidine 2020-09 Yes [id number] 40mg Take 1 [facility] 40 mg 1-16 tablet by ity of tablet 00:00: mouth [place] 00 daily. [facility] Branch famotidine 2020-09 Yes [id number] 40mg Take 1 [facility] 40 mg 1-16 tablet by ity of tablet 00:00: mouth [place] 00 daily. [facility] Branch famotidine 2020-09 Yes [id number] 40mg Take 1 [facility] 40 mg 1-16 tablet by ity of tablet 00:00: mouth [place] 00 daily. [facility] Branch famotidine 2020-09 Yes [id number] 40mg Take 1 [facility] 40 mg 1-16 tablet by ity of tablet 00:00: mouth [place] 00 daily. [facility] Branch famotidine 2020-09 Yes [id number] 40mg Take 1 [facility] 40 mg 1-16 tablet by ity of tablet 00:00: mouth [place] 00 daily. [facility] Branch famotidine 2020-09 Yes [id number] 40mg Take 1 [facility] 40 mg 1-16 tablet by ity of tablet 00:00: mouth [place] 00 daily. [facility] Branch famotidine 2020-09 Yes [id number] 40mg Take 1 [facility] 40 mg 1-16 tablet by ity of tablet 00:00: mouth [place] 00 daily. [facility] Branch famotidine 2020-09 Yes [id number] 40mg Take 1 [facility] 40 mg 1-16 tablet by ity of tablet 00:00: mouth [place] 00 daily. [facility] famotidine 2020-09 Yes [id number] 40mg Take 1 [facility] 40 mg 1-16 tablet by ity of tablet 00:00: mouth [place] 00 daily. [facility] famotidine 2020-09 Yes [id number] 40mg Take 1 [facility] 40 mg 1-16 tablet by ity of tablet 00:00: mouth [place] 00 daily. [facility] famotidine 2020-09 Yes [id number] 40mg Take 1 [facility] 40 mg 1-16 tablet by ity of tablet 00:00: mouth [place] 00 daily. [facility] famotidine 2020-09 Yes [id number] 40mg Take 1 [facility] 40 mg 1-16 tablet by ity of tablet 00:00: mouth [place] 00 daily. [facility] famotidine 2020-09 Yes [id number] 40mg Take 1 [facility] 40 mg 1-16 tablet by ity of tablet 00:00: mouth [place] 00 daily. [facility] famotidine 2020-09 Yes [id number] 40mg Take 1 [facility] 40 mg 1-16 tablet by ity of tablet 00:00: mouth [place] 00 daily. [facility] famotidine 2020-09 Yes [id number] 40mg Take 1 [facility] 40 mg 1-16 tablet by ity of tablet 00:00: mouth [place] 00 daily. [facility] famotidine 2020-09 Yes [id number] 40mg Take 1 [facility] 40 mg 1-16 tablet by ity of tablet 00:00: mouth [place] 00 daily. [facility] famotidine 2020-09 Yes [id number] 40mg Take 1 [facility] 40 mg 1-16 tablet by ity of tablet 00:00: mouth [place] 00 daily. [facility] famotidine 2020-09 Yes [id number] 40mg Take 1 [facility] 40 mg 1-16 tablet by ity of tablet 00:00: mouth [place] 00 daily. [facility] famotidine 2020-09 Yes [id number] 40mg Take 1 [facility] 40 mg 1-16 tablet by ity of tablet 00:00: mouth [place] 00 daily. [facility] famotidine 2020-09 Yes [id number] 40mg Take 1 [facility] 40 mg 1-16 tablet by ity of tablet 00:00: mouth [place] 00 daily. [facility] famotidine 2020-09 Yes [id number] 40mg Take 1 [facility] 40 mg 1-16 tablet by ity of tablet 00:00: mouth [place] 00 daily. [facility] famotidine 2020-09 Yes [id number] 40mg Take 1 [facility] 40 mg 1-16 tablet by ity of tablet 00:00: mouth [place] 00 daily. [facility] famotidine 2020-09 Yes [id number] 40mg Take 1 [facility] 40 mg 1-16 tablet by ity of tablet 00:00: mouth [place] 00 daily. [facility] famotidine 2020-09 Yes [id number] 40mg Take 1 [facility] 40 mg 1-16 tablet by ity of tablet 00:00: mouth [place] 00 daily. [facility] famotidine 2020-09 Yes [id number] 40mg Take 1 [facility] 40 mg 1-16 tablet by ity of tablet 00:00: mouth [place] 00 daily. [facility] famotidine 2020-09 Yes [id number] 40mg Take 1 [facility] 40 mg 1-16 tablet by ity of tablet 00:00: mouth [place] 00 daily. [facility] budesonide- 2020-09 Yes [id number] 2{puff} Inhale 2 Univers formoteroL 0-14 Puffs 2 ity of (SYMBICORT) 00:00: (two) [place] 160-4.5 00 times Medical mcg/actuati daily. Branch on inhaler albuterol 2020-09 Yes 2{puff} Inhale 2 U nivers (PROAIR 0-14 Puffs ity of HFA) 90 00:00: every 6 [place] mcg/actuati 00 (six) Medical on inhaler hours as Branc h needed for Wheezing or Shortness of Breath. budesonide- 2020-09 Yes [id number] 2{puff} Inhale 2 [facility] formoteroL 0-14 Puffs 2 ity of (SYMBICORT) 00:00: (two) [place] 160-4.5 00 times Medical mcg/actuati daily. Branch on inhaler albuterol 2020-09 Yes 2{puff} Inhale 2 U nivers (PROAIR 0-14 Puffs ity of HFA) 90 00:00: every 6 [place] mcg/actuati 00 (six) Medical on inhaler hours as Branc h needed for Wheezing or Shortness of Breath. budesonide- 2020-09 Yes [id number] 2{puff} Inhale 2 [facility] formoteroL 0-14 Puffs 2 ity of (SYMBICORT) 00:00: (two) [place] 160-4.5 00 times Medical mcg/actuati daily. Branch on inhaler albuterol 2020-09 Yes 2{puff} Inhale 2 U nivers (PROAIR 0-14 Puffs ity of HFA) 90 00:00: every 6 [place] mcg/actuati 00 (six) Medical on inhaler hours as Branc h needed for Wheezing or Shortness of Breath. budesonide- 2020-09 Yes [id number] 2{puff} Inhale 2 [facility] formoteroL 0-14 Puffs [...] on inhaler times daily. budesonide- 2020-09- No [id number] 2{puff} Inhale 2 [facility] formoteroL 0-14 08-15 [...] Wheezing or Shortness of Breath. amitriptyli Yes [id number] 150mg Take 3 [facility] ne 50 mg 9-13 tablets by ity o f tablet 00:00: mouth at [place] 00 bedtime. Medical Branch amitriptyli Yes [id number] 150mg Take 3 [facility] ne 50 mg 9-13 tablets by ity o f tablet 00:00: mouth at [place] bedtime. Medical Branch amitriptyli Yes [id number] 150mg Take 3 [facility] ne 50 mg 9-13 tablets by ity o f tablet 00:00: mouth at [place] 00 bedtime. [facility] Branch amitriptyli Yes [id number] 150mg Take 3 [facility] ne 50 mg 9-13 tablets by ity o f tablet 00:00: mouth at [place] [address] bedtime. Medical Branch amitriptyli Yes [id number] 150mg Take 3 [facility] ne 50 mg 9-13 tablets by ity o f tablet 00:00: mouth at [place] [address] bedtime. Medical Branch amitriptyli Yes [id number] 150mg Take 3 [facility] ne 50 mg 9-13 tablets by ity o f tablet 00:00: mouth at [place] [address] bedtime. Medical Branch amitriptyli Yes [id number] 150mg Take 3 [facility] ne 50 mg 9-13 tablets by ity o f tablet 00:00: mouth at [place] [address] bedtime. Medical Branch amitriptyli Yes [id number] 150mg Take 3 [facility] ne 50 mg 9-13 tablets by ity o f tablet 00:00: mouth at [place] [address] bedtime. Medical Branch amitriptyli Yes [id number] 150mg Take 3 [facility] ne 50 mg 9-13 tablets by ity o f tablet 00:00: mouth at [place] [address] bedtime. Medical Branch amitriptyli Yes [id number] 150mg Take 3 [facility] ne 50 mg 9-13 tablets by ity o f tablet 00:00: mouth at [place] [address] bedtime. Medical Branch amitriptyli Yes [id number] 150mg Take 3 [facility] ne 50 mg 9-13 tablets by ity o f tablet 00:00: mouth at [place] [address] bedtime. Medical Branch amitriptyli Yes [id number] 150mg Take 3 [facility] ne 50 mg 9-13 tablets by ity o f tablet 00:00: mouth at [place] 00 bedtime. [facility] Branch amitriptyli 0 Yes [id number] 150mg Take 3 [facility] ne 50 mg 9-13 tablets by ity o f tablet 00:00: mouth at [place] 00 bedtime. [facility] Branch amitriptyli 0 Yes [id number] 150mg Take 3 [facility] ne 50 mg 9-13 tablets by ity o f tablet 00:00: mouth at [place] 00 bedtime. Medical Branch amitriptyli 0 Yes [id number] 150mg Take 3 [facility] ne 50 mg 9-13 tablets by ity o f tablet 00:00: mouth at [place] 00 bedtime. Medical Branch amitriptyli Yes [id number] 150mg Take 3 [facility] ne 50 mg 9-13 tablets by ity o f tablet 00:00: mouth at [place] 00 bedtime. Medical Branch amitriptyli Yes [id number] 150mg Take 3 [facility] ne 50 mg 9-13 tablets by ity o f tablet 00:00: mouth at [place] 00 bedtime. [facility] Branch amitriptyli Yes [id number] 150mg Take 3 [facility] ne 50 mg 9-13 tablets by ity o f tablet 00:00: mouth at [place] 00 bedtime. [facility] Branch amitriptyli Yes [id number] 150mg Take 3 [facility] ne 50 mg 9-13 tablets by ity o f tablet 00:00: mouth at [place] 00 bedtime. [facility] Branch amitriptyli 0 Yes [id number] 150mg Take 3 [facility] ne 50 mg 9-13 tablets by ity o f tablet 00:00: mouth at [place] 00 bedtime. [facility] Branch amitriptyli 0 Yes [id number] 150mg Take 3 [facility] ne 50 mg 9-13 tablets by ity o f tablet 00:00: mouth at [place] 00 bedtime. [facility] Branch amitriptyli 0 Yes [id number] 150mg Take 3 [facility] ne 50 mg 9-13 tablets by ity o f tablet 00:00: mouth at [place] 00 bedtime. [facility] Branch amitriptyli 0 Yes [id number] 150mg Take 3 [facility] ne 50 mg 9-13 tablets by ity o f tablet 00:00: mouth at [place] 00 bedtime. [facility] Branch amitriptyli 0 Yes [id number] 150mg Take 3 [facility] ne 50 mg 9-13 tablets by ity o f tablet 00:00: mouth at [place] 00 bedtime. [facility] Branch amitriptyli 0 Yes [id number] 150mg Take 3 [facility] ne 50 mg 9-13 tablets by ity o f tablet 00:00: mouth at [place] 00 bedtime. [facility] Branch amitriptyli 0 Yes [id number] 150mg Take 3 [facility] ne 50 mg 9-13 tablets by ity o f tablet 00:00: mouth at [place] 00 bedtime. [facility] Branch amitriptyli 0 Yes [id number] 150mg Take 3 [facility] ne 50 mg 9-13 tablets by ity o f tablet 00:00: mouth at [place] 00 bedtime. [facility] Branch amitriptyli Yes [id number] 150mg Take 3 [facility] ne 50 mg 9-13 tablets by ity o f tablet 00:00: mouth at [place] 00 bedtime. [facility] Branch amitriptyli Yes [id number] 150mg Take 3 [facility] ne 50 mg 9-13 tablets by ity o f tablet 00:00: mouth at [place] 00 bedtime. [facility] Branch amitriptyli 0 Yes [id number] 150mg Take 3 [facility] ne 50 mg 9-13 tablets by ity o f tablet 00:00: mouth at [place] 00 bedtime. [facility] Branch amitriptyli 2020-0 Yes [id number] 150mg Take 3 [facility] ne 50 mg 9-13 tablets by ity o f tablet 00:00: mouth at [place] 00 bedtime. [facility] Branch amitriptyli 0 Yes [id number] 150mg Take 3 [facility] ne 50 mg 9-13 tablets by ity o f tablet 00:00: mouth at [place] 00 bedtime. [facility] Branch amitriptyli 0 Yes [id number] 150mg Take 3 [facility] ne 50 mg 9-13 tablets by ity o f tablet 00:00: mouth at [place] 00 bedtime. Medical Branch amitriptyli Yes [id number] 150mg Take 3 [facility] ne 50 mg 9-13 tablets by ity o f tablet 00:00: mouth at [place] 00 bedtime. Medical Branch amitriptyli Yes [id number] 150mg Take 3 [facility] ne 50 mg 9-13 tablets by ity o f tablet 00:00: mouth at [place] 00 bedtime. Medical Branch amitriptyli Yes [id number] 150mg Take 3 [facility] ne 50 mg 9-13 tablets by ity o f tablet 00:00: mouth at [place] 00 bedtime. Medical Branch amitriptyli Yes [id number] 150mg Take 3 [facility] ne 50 mg 9-13 tablets by ity o f tablet 00:00: mouth at [place] 00 bedtime. Medical Branch amitriptyli Yes [id number] 150mg Take 3 [facility] ne 50 mg 9-13 tablets by ity o f tablet 00:00: mouth at [place] 00 bedtime. [facility] amitriptyli Yes 3{tbl} QD Take [address] [facility] (ELAVIL) 9-13 tablets by [facility]es 50 MG 00:00: mouth Medical tablet 00 nightly. [place] amitriptyli Yes 3{tbl} QD Take [address] [facility] (ELAVIL) 9-13 tablets by [facility] 50 MG 00:00: mouth Medical tablet 00 nightly. [place] amitriptyli Yes 3{tbl} QD Take [address] [facility] (ELAVIL) 9-13 tablets by [facility] 50 MG 00:00: mouth Medical tablet 00 nightly. [place] amitriptyli Yes 3{tbl} QD Take [address] [facility] (ELAVIL) 9-13 tablets by [facility] kes 50 MG 00:00: mouth Medical tablet 00 nightly. [place] amitriptyli Yes 3{tbl} QD Take [address] [facility] (ELAVIL) 9-13 tablets by [facility] kes 50 MG 00:00: mouth Medical tablet 00 nightly. [place] ARIPiprazol Yes 2mg Take 2 mg U nivers e 2 mg 8-26 by mouth ity of tablet 00:00: at [place] [address] bedtime. [facility] ARIPiprazol Yes 2mg Take 2 mg U nivers e 2 mg 8-26 by mouth ity of tablet 00:00: at [place] 00 bedtime. Medical Branch ARIPiprazol 1-0 Yes 2mg Take 2 mg U nivers e 2 mg 8-26 by mouth ity of tablet 00:00: at [place] [address] bedtime. Medical Branch ARIPiprazol 2020-0 Yes 2mg Take 2 mg U nivers e 2 mg 8-26 by mouth ity of tablet 00:00: at [place] [address] bedtime. Medical Branch ARIPiprazol 2020-0 Yes 2mg Take 2 mg U nivers e 2 mg 8-26 by mouth ity of tablet 00:00: at [place] [address] bedtime. Medical Branch ARIPiprazol 2020-0 Yes 2mg Take 2 mg U nivers e 2 mg 8-26 by mouth ity of tablet 00:00: at [place] [address] bedtime. Medical Branch ARIPiprazol 2020-0 Yes 2mg Take 2 mg U nivers e 2 mg 8-26 by mouth ity of tablet 00:00: at [place] [address] bedtime. Medical Branch ARIPiprazol 2020-0 Yes 2mg Take 2 mg U nivers e 2 mg 8-26 by mouth ity of tablet 00:00: at [place] [address] bedtime. Medical Branch ARIPiprazol 2020-0 Yes 2mg Take 2 mg U nivers e 2 mg 8-26 by mouth ity of tablet 00:00: at [place] [address] bedtime. Medical Branch ARIPiprazol 2020-0 Yes 2mg Take 2 mg U nivers e 2 mg 8-26 by mouth ity of tablet 00:00: at [place] [address] bedtime. Medical Branch ARIPiprazol 2020-0 Yes 2mg Take 2 mg U nivers e 2 mg 8-26 by mouth ity of tablet 00:00: at [place] [address] bedtime. Medical Branch ARIPiprazol 2020-0 Yes 2mg Take 2 mg U nivers e 2 mg 8-26 by mouth ity of tablet 00:00: at [place] [address] bedtime. Medical Branch ARIPiprazol 1-0 Yes 2mg Take 2 mg U nivers e 2 mg 8-26 by mouth ity of tablet 00:00: at [place] [address] bedtime. Medical Branch ARIPiprazol 1-0 Yes 2mg Take 2 mg U nivers e 2 mg 8-26 by mouth ity of tablet 00:00: at [place] [address] bedtime. Medical Branch ARIPiprazol 2020-0 Yes 2mg Take 2 mg U nivers e 2 mg 8-26 by mouth ity of tablet 00:00: at [place] [address] bedtime. Medical Branch ARIPiprazol 2020-0 Yes 2mg Take 2 mg U nivers e 2 mg 8-26 by mouth ity of tablet 00:00: at [place] [address] bedtime. Medical Branch ARIPiprazol 1-0 Yes 2mg Take 2 mg U nivers e 2 mg 8-26 by mouth ity of tablet 00:00: at [place] [address] bedtime. Medical Branch ARIPiprazol 2020-0 Yes 2mg Take 2 mg U nivers e 2 mg 8-26 by mouth ity of tablet 00:00: at [place] [address] bedtime. Medical Branch ARIPiprazol 2020-0 Yes 2mg Take 2 mg U nivers e 2 mg 8-26 by mouth ity of tablet 00:00: at [place] [address] bedtime. Medical Branch ARIPiprazol 2020-0 Yes 2mg Take 2 mg U nivers e 2 mg 8-26 by mouth ity of tablet 00:00: at [place] [address] bedtime. Medical Branch ARIPiprazol 2020-0 Yes 2mg Take 2 mg U nivers e 2 mg 8-26 by mouth ity of tablet 00:00: at [place] [address] bedtime. Medical Branch ARIPiprazol 2020-0 Yes 2mg Take 2 mg U nivers e 2 mg 8-26 by mouth ity of tablet 00:00: at [place] [address] bedtime. Medical Branch ARIPiprazol 1-0 Yes 2mg Take 2 mg U nivers e 2 mg 8-26 by mouth ity of tablet 00:00: at [place] [address] bedtime. Medical Branch ARIPiprazol 1-0 Yes 2mg Take 2 mg U nivers e 2 mg 8-26 by mouth ity of tablet 00:00: at [place] [address] bedtime. Medical Branch ARIPiprazol 1-0 Yes 2mg Take 2 mg U nivers e 2 mg 8-26 by mouth ity of tablet 00:00: at [place] [address] bedtime. Medical Branch ARIPiprazol 1-0 Yes 2mg Take 2 mg U nivers e 2 mg 8-26 by mouth ity of tablet 00:00: at [place] [address] bedtime. Medical Branch ARIPiprazol 2020-0 Yes 2mg Take 2 mg U nivers e 2 mg 8-26 by mouth ity of tablet 00:00: at [place] [address] bedtime. Medical Branch ARIPiprazol 2020-0 Yes 2mg Take 2 mg U nivers e 2 mg 8-26 by mouth ity of tablet 00:00: at [place] [address] bedtime. Medical Branch ARIPiprazol 2020-0 Yes 2mg Take 2 mg U nivers e 2 mg 8-26 by mouth ity of tablet 00:00: at [place] [address] bedtime. Medical Branch ARIPiprazol 2020-0 Yes 2mg Take 2 mg U nivers e 2 mg 8-26 by mouth ity of tablet 00:00: at [place] [address] bedtime. Medical Branch ARIPiprazol 2020-0 Yes 2mg Take 2 mg U nivers e 2 mg 8-26 by mouth ity of tablet 00:00: at [place] [address] bedtime. Medical Branch ARIPiprazol 2020-0 Yes 2mg Take 2 mg U nivers e 2 mg 8-26 by mouth ity of tablet 00:00: at [place] [address] bedtime. Medical Branch ARIPiprazol 2020-0 Yes 2mg Take 2 mg U nivers e 2 mg 8-26 by mouth ity of tablet 00:00: at [place] [address] bedtime. Medical Branch ARIPiprazol 2020-0 Yes 2mg Take 2 mg U nivers e 2 mg 8-26 by mouth ity of tablet 00:00: at [place] [address] bedtime. Medical Branch ARIPiprazol 2020-0 Yes 2mg Take 2 mg U nivers e 2 mg 8-26 by mouth ity of tablet 00:00: at [place] [address] bedtime. Medical Branch ARIPiprazol 2020-0 Yes 2mg Take 2 mg U nivers e 2 mg 8-26 by mouth ity of tablet 00:00: at [place] [address] bedtime. Medical Branch ARIPiprazol 2020-0 Yes 2mg Take 2 mg U nivers e 2 mg 8-26 by mouth ity of tablet 00:00: at [place] [address] bedtime. Medical Branch ARIPiprazol 2020-0 Yes 2mg Take 2 mg U nivers e 2 mg 8-26 by mouth ity of tablet 00:00: at [place] 00 bedtime. [facility] ARIPiprazol Yes 2mg QD Take [address] [facility] (ABILIFY) 8-26 by mouth [place] [facility] 2 MG tablet 00:00: nightly. [address] ARIPiprazol 0 Yes 2mg QD Take [address] [facility] (ABILIFY) 8-26 by mouth [place] [facility] 2 MG tablet 00:00: nightly. [facility] 00 [place] ARIPiprazol 2020-0 Yes 2mg QD Take [address] [facility] (ABILIFY) 8-26 by mouth [facility] 2 MG tablet 00:00: nightly. [facility] [place] ARIPiprazol 0 Yes 2mg QD Take [address] [facility] (ABILIFY) 8-26 by mouth [facility] 2 MG tablet 00:00: nightly. [address] ARIPiprazol Yes 2mg QD Take [address] [facility] (ABILIFY) 8-26 by mouth [place] [facility] 2 MG tablet 00:00: nightly. [facility] 00 [place] benzonatate Yes [id number] 100mg Take 1 [facility] (TESSALON 1-27 capsule by ity of PERLES) 100 00:00: mouth 3 [place] mg capsule 00 (three) Medica l times Branch daily. benzonatate Yes [id number] 100mg Take 1 [facility] (TESSALON 1-27 capsule by ity of PERLES) 100 00:00: mouth 3 [place] mg capsule 00 (three) Medica l times Branch daily. benzonatate Yes [id number] 100mg Take 1 [facility] (TESSALON 1-27 capsule by ity of PERLES) 100 00:00: mouth 3 [place] mg capsule 00 (three) Medica l times Branch daily. benzonatate Yes [id number] 100mg Take 1 [facility] (TESSALON 1-27 capsule by ity of PERLES) 100 00:00: mouth 3 [place] mg capsule 00 (three) Medica l times Branch daily. benzonatate 2021- No [id number] 100mg Take 1 [facility] (TESSALON 1-27 08-15 capsule by ity of PERLES) 100 00:00: 00:00 mouth 3 [place] mg capsule 00 :00 (three) Medica l [facility] daily. atorvastati Yes [id number] 20mg Take 1 [facility] n 20 mg 1-07 tablet by ity of tablet 00:00: mouth at [place] [address] bedtime. [facility] atorvastati 0 Yes [id number] 20mg Take 1 [facility] n 20 mg 1-07 tablet by ity of tablet 00:00: mouth at [place] [address] bedtime. [facility] atorvastati 2020-0 Yes [id number] 20mg Take 1 [facility] n 20 mg 1-07 tablet by ity of tablet 00:00: mouth at [place] [address] bedtime. [facility] atorvastati 0 Yes [id number] 20mg Take 1 [facility] n 20 mg 1-07 tablet by ity of tablet 00:00: mouth at [place] [address] bedtime. [facility] atorvastati 2020- Yes [id number] 20mg Take 1 [facility] n 20 mg 1-07 tablet by ity of tablet 00:00: mouth at [place] [address] bedtime. [facility] atorvastati Yes [id number] 20mg Take 1 [facility] n 20 mg 1-07 tablet by ity of tablet 00:00: mouth at [place] [address] bedtime. [facility] atorvastati Yes 20mg QD Take [address] [facility] (LIPITOR) 1-07 by mouth [place] [facility] 20 MG 00:00: daily. Medical tablet 00 [place] atorvastati 0 Yes 20mg QD Take [address] [facility] (LIPITOR) 1-07 by mouth [place] [facility] 20 MG 00:00: daily. Medical tablet 00 [place] atorvastati 0 Yes 20mg QD Take [address] [facility] (LIPITOR) 1-07 by mouth [place] [facility] 20 MG 00:00: daily. Medical tablet 00 [place] atorvasta 0 Yes 20mg QD Take [address] [facility] (LIPITOR) 1-07 by mouth [facility] 20 MG 00:00: daily. Medical tablet 00 [place] atorvastati Yes 20mg QD Take [address] [facility] (LIPITOR) 1-07 by mouth [facility] 20 MG 00:00: daily. Medical tablet [address] [place] [address] atorvastati 2021- No [id number] 20mg Take 1 [facility] n 20 mg 09-23 10-17 tablet by ity of tablet 00:00: 00:00 mouth at [place] 00 :00 bedtime. Medical Branch atorvastati 2021- No [id number] 20mg Take 1 [facility] n 20 mg 09-23 10-17 tablet by ity of tablet 00:00: 00:00 mouth at [place] 00 :00 bedtime. Medical Branch atorvastati 2021- No [id number] 20mg Take 1 [facility] n 20 mg 09-23 10-17 tablet by ity of tablet 00:00: 00:00 mouth at [place] 00 :00 bedtime. Medical Branch ipratropium 2020-1 Yes [id number] .5mg Inhale 2.5 [facility] 0.02 % 2-18 mL every 8 ity of nebulizer 00:00: (eight) [place] solution 00 hours as Medical needed for Branch Wheezing or Shortness of Breath. ipratropium 2020-1 Yes [id number] .5mg Inhale 2.5 [facility] 0.02 % 2-18 mL every 8 ity of nebulizer 00:00: (eight) [place] solution 00 hours as Medical needed for Branch Wheezing or Shortness of Breath. ipratropium 2020-1 Yes [id number] .5mg Inhale 2.5 [facility] 0.02 % 2-18 mL every 8 ity of nebulizer 00:00: (eight) [place] solution 00 hours as Medical needed for Branch Wheezing or Shortness of Breath. ipratropium 2020-1 Yes [id number] .5mg Inhale 2.5 [facility] 0.02 % 2-18 mL every 8 ity of nebulizer 00:00: (eight) [place] solution 00 hours as Medical needed for Branch Wheezing or Shortness of Breath. ipratropium 2020-1 Yes [id number] .5mg Inhale 2.5 [facility] 0.02 % 2-18 mL every 8 ity of nebulizer 00:00: (eight) [place] solution 00 hours as Medical needed for Branch Wheezing or Shortness of Breath. ipratropium 2020-1 Yes [id number] .5mg Inhale 2.5 [facility] 0.02 % 2-18 mL every 8 ity of nebulizer 00:00: (eight) [place] solution 00 hours as Medical needed for Branch Wheezing or Shortness of Breath. ipratropium 2020-1 Yes [id number] .5mg Inhale 2.5 [facility] 0.02 % 2-18 mL every 8 ity of nebulizer 00:00: (eight) [place] solution 00 hours as Medical needed for Branch Wheezing or Shortness of Breath. ipratropium 2020-1 Yes [id number] .5mg Inhale 2.5 [facility] 0.02 % 2-18 mL every 8 ity of nebulizer 00:00: (eight) [place] solution 00 hours as Medical needed for Branch Wheezing or Shortness of Breath. ipratropium 2020-1 Yes [id number] .5mg Inhale 2.5 [facility] 0.02 % 2-18 mL every 8 ity of nebulizer 00:00: (eight) [place] solution 00 hours as Medical needed for Branch Wheezing or Shortness of Breath. ipratropium 2020-1 Yes [id number] .5mg Inhale 2.5 [facility] 0.02 % 2-18 mL every 8 ity of nebulizer 00:00: (eight) [place] solution 00 hours as Medical needed for Branch Wheezing or Shortness of Breath. ipratropium 2020-1 Yes [id number] .5mg Inhale 2.5 [facility] 0.02 % 2-18 mL every 8 ity of nebulizer 00:00: (eight) [place] solution 00 hours as Medical needed for Branch Wheezing or Shortness of Breath. ipratropium 2020-1 Yes [id number] .5mg Inhale 2.5 [facility] 0.02 % 2-18 mL every 8 ity of nebulizer 00:00: (eight) [place] solution 00 hours as Medical needed for Branch Wheezing or Shortness of Breath. ipratropium 2020-1 Yes [id number] .5mg Inhale 2.5 [facility] 0.02 % 2-18 mL every 8 ity of nebulizer 00:00: (eight) [place] solution 00 hours as Medical needed for Branch Wheezing or Shortness of Breath. ipratropium 2020-1 Yes [id number] .5mg Inhale 2.5 [facility] 0.02 % 2-18 mL every 8 ity of nebulizer 00:00: (eight) [place] solution 00 hours as Medical needed for Branch Wheezing or Shortness of Breath. ipratropium 2020-1 Yes [id number] .5mg Inhale 2.5 [facility] 0.02 % 2-18 mL every 8 ity of nebulizer 00:00: (eight) [place] solution 00 hours as Medical needed for Branch Wheezing or Shortness of Breath. ipratropium 2020-1 Yes [id number] .5mg Inhale 2.5 [facility] 0.02 % 2-18 mL every 8 ity of nebulizer 00:00: (eight) [place] solution 00 hours as Medical needed for Branch Wheezing or Shortness of Breath. ipratropium 2020-1 Yes [id number] .5mg Inhale 2.5 [facility] 0.02 % 2-18 mL every 8 ity of nebulizer 00:00: (eight) [place] solution 00 hours as Medical needed for Branch Wheezing or Shortness of Breath. ipratropium 2020-1 Yes [id number] .5mg Inhale 2.5 [facility] 0.02 % 2-18 mL every 8 ity of nebulizer 00:00: (eight) [place] solution 00 hours as Medical needed for Branch Wheezing or Shortness of Breath. ipratropium 2020-1 Yes [id number] .5mg Inhale 2.5 [facility] 0.02 % 2-18 mL every 8 ity of nebulizer 00:00: (eight) [place] solution 00 hours as Medical needed for Branch Wheezing or Shortness of Breath. ipratropium 2020-1 Yes [id number] .5mg Inhale 2.5 [facility] 0.02 % 2-18 mL every 8 ity of nebulizer 00:00: (eight) [place] solution 00 hours as Medical needed for Branch Wheezing or Shortness of Breath. ipratropium 2020-1 Yes [id number] .5mg Inhale 2.5 [facility] 0.02 % 2-18 mL every 8 ity of nebulizer 00:00: (eight) [place] solution 00 hours as Medical needed for Branch Wheezing or Shortness of Breath. ipratropium 2020-1 Yes [id number] .5mg Inhale 2.5 [facility] 0.02 % 2-18 mL every 8 ity of nebulizer 00:00: (eight) [place] solution 00 hours as Medical needed for Branch Wheezing or Shortness of Breath. ipratropium 2020-1 Yes [id number] .5mg Inhale 2.5 [facility] 0.02 % 2-18 mL every 8 ity of nebulizer 00:00: (eight) [place] solution 00 hours as Medical needed for Branch Wheezing or Shortness of Breath. ipratropium 2020-1 Yes [id number] .5mg Inhale 2.5 [facility] 0.02 % 2-18 mL every 8 ity of nebulizer 00:00: (eight) [place] solution 00 hours as Medical needed for Branch Wheezing or Shortness of Breath. ipratropium 2020-1 Yes [id number] .5mg Inhale 2.5 [facility] 0.02 % 2-18 mL every 8 ity of nebulizer 00:00: (eight) [place] solution 00 hours as Medical needed for Branch Wheezing or Shortness of Breath. ipratropium 2020-1 Yes [id number] .5mg Inhale 2.5 [facility] 0.02 % 2-18 mL every 8 ity of nebulizer 00:00: (eight) [place] solution 00 hours as Medical needed for Branch Wheezing or Shortness of Breath. ipratropium 2020-1 Yes [id number] .5mg Inhale 2.5 [facility] 0.02 % 2-18 mL every 8 ity of nebulizer 00:00: (eight) [place] solution 00 hours as Medical needed for Branch Wheezing or Shortness of Breath. ipratropium 2020-1 Yes [id number] .5mg Inhale 2.5 [facility] 0.02 % 2-18 mL every 8 ity of nebulizer 00:00: (eight) [place] solution 00 hours as Medical needed for Branch Wheezing or Shortness of Breath. ipratropium 2020-1 Yes [id number] .5mg Inhale 2.5 [facility] 0.02 % 2-18 mL every 8 ity of nebulizer 00:00: (eight) [place] solution 00 hours as Medical needed for Branch Wheezing or Shortness of Breath. ipratropium 2020-1 Yes [id number] .5mg Inhale 2.5 [facility] 0.02 % 2-18 mL every 8 ity of nebulizer 00:00: (eight) [place] solution 00 hours as Medical needed for Branch Wheezing or Shortness of Breath. ipratropium 2020-1 Yes [id number] .5mg Inhale 2.5 [facility] 0.02 % 2-18 mL every 8 ity of nebulizer 00:00: (eight) [place] solution 00 hours as Medical needed for Branch Wheezing or Shortness of Breath. ipratropium 2020-1 Yes [id number] .5mg Inhale 2.5 [facility] 0.02 % 2-18 mL every 8 ity of nebulizer 00:00: (eight) [place] solution 00 hours as Medical needed for Branch Wheezing or Shortness of Breath. ipratropium 2019-09- No [id number] .5mg Inhale 2.5 [facility] 0.02 % 2-18 08-10 mL every 8 ity of nebulizer 00:00: 00:00 ([place] :[place] as Medical needed for Branch Wheezing or Shortness of Breath. ipratropium 2019-2022- No [id number] .5mg Inhale 2.5 [facility] 0.02 % 2-18 08-10 mL every 8 ity of nebulizer 00:00: 00:00 (eight[place] :00 hours as Medical needed for Branch Wheezing or Shortness of Breath. ipratropium 2019-09- No [id number] .5mg Inhale 2.5 [facility] 0.02 % 2-18 08-10 mL every 8 ity of nebulizer 00:00: 00:00 (eight[place] 00 :00 hours as Medical needed for Branch Wheezing or Shortness of Breath. ipratropium 2019-09- No [id number] .5mg Inhale 2.5 [facility] 0.02 % 2-18 08-10 mL every 8 ity of nebulizer 00:00: 00:00 (eight[place] 00 :00 hours as Medical needed for Branch Wheezing or Shortness of Breath. aspirin 81 2019-09 Yes [id number] 81mg Take 1 [facility] mg chewable 1-11 tablet by ity of tablet 00:00: mouth [place] 00 daily. Medical Branch aspirin 81 2019-09 Yes [id number] 81mg Take 1 [facility] mg chewable 1-11 tablet by ity of tablet 00:00: mouth [place] 00 daily. Medical [facility] aspirin 81 2019-09 Yes [id number] 81mg Take 1 [facility] mg chewable 1-11 tablet by ity of tablet 00:00: mouth [place] 00 daily. Medical [facility] aspirin 81 2019-09 Yes [id number] 81mg Take 1 [facility] mg chewable 1-11 tablet by ity of tablet 00:00: mouth [place] 00 daily. Medical [facility] aspirin 81 2019-09- No [id number] 81mg Take 1 [facility] mg chewable 1-11 08-15 tablet by it y of tablet 00:00: 00:00 mouth [place] 00 :00 daily. 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 TOP BOOSTER) SARS-COV-2 COVID-19 2022-10-26 Completed Unive rsity of KASEY-SUCROSE 00:00:00 [place] [facility] VACCINE 12 YRS+, Branch BIVALENT 0.3ML, IM, (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 TOP BOOSTER) SARS-COV-2 COVID-19 2022-10-26 Completed Unive rsity of KASEY-SUCROSE 00:00:00 [place] [facility] VACCINE 12 YRS+, Branch BIVALENT 0.3ML, IM, (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 TOP BOOSTER) SARS-COV-2 COVID-19 2022-10-26 Completed Unive rsity of KASEY-SUCROSE 00:00:00 [place] [facility] VACCINE 12 YRS+, Branch BIVALENT 0.3ML, IM, (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 BOOSTER) SARS-COV-2 COVID-19 2022-10-26 Completed Unive rsity of KASEY-SUCROSE 00:00:00 [place] [facility] VACCINE 12 YRS+, Branch BIVALENT 0.3ML, IM, (PFIZER 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 TOP BOOSTER) SARS-COV-2 COVID-19 2022-10-26 Completed Unive rsity of KASEY-SUCROSE 00:00:00 [place] [facility]ica l VACCINE 12 YRS+, Branch BIVALENT 0.3ML, IM, (PFIZER JUDD TOP) SARS-COV-2 COVID-19 2022-10-26 Completed Unive rsity of KASEY-SUCROSE 00:00:00 [place] [facility]ica [facility] VACCINE 12 YRS+, Branch BIVALENT 0.3ML, IM, (PFIZER JUDD TOP) SARS-COV-2 COVID-19 2022-10-26 Completed Unive rsity of KASEY-SUCROSE 00:00:00 [place] [facility] VACCINE 12 YRS+, Branch BIVALENT 0.3ML, IM, (PFIZER JUDD TOP) SARS-COV-2 COVID-19 2022-10-26 Completed Unive rsity of KASEY-SUCROSE 00:00:00 [place] [facility]ica [facility] VACCINE 12 YRS+, Branch BIVALENT 0.3ML, IM, (PFIZER JUDD TOP) SARS-COV-2 COVID-19 2022-10-26 Completed Unive rsity of KASEY-SUCROSE 00:00:00 [place] [facility] VACCINE 12 YRS+, Branch BIVALENT 0.3ML, IM, (PFIZER JUDD TOP) SARS-COV-2 COVID-19 2022-10-26 Completed Unive rsity of KASEY-SUCROSE 00:00:00 [place] [facility]ica [facility] VACCINE 12 YRS+, Branch BIVALENT 0.3ML, IM, (PFIZER JUDD TOP) SARS-COV-2 COVID-19 2022-10-26 Completed Unive rsity of KASEY-SUCROSE 00:00:00 [place] [facility]ica [facility] VACCINE 12 YRS+, Branch BIVALENT 0.3ML, IM, (PFIZER JUDD TOP) SARS-COV-2 COVID-19 2022-10-26 Completed Unive rsity of KASEY-SUCROSE 00:00:00 [place] [facility] VACCINE 12 YRS+, Branch BIVALENT 0.3ML, IM, (PFIZER JUDD TOP) SARS-COV-2 COVID-19 2022-10-26 Completed Unive rsity of KASEY-SUCROSE 00:00:00 [place] [facility]ica [facility] VACCINE 12 YRS+, Branch BIVALENT 0.3ML, IM, (PFIZER JUDD TOP) SARS-COV-2 COVID-19 2022-10-26 Completed Unive rsity of KASEY-SUCROSE 00:00:00 [place] [facility]ica [facility] VACCINE 12 YRS+, Branch BIVALENT 0.3ML, IM, (PFIZER JUDD TOP) SARS-COV-2 COVID-19 2022-10-26 Completed Unive rsity of KASEY-SUCROSE 00:00:00 [place] [facility] VACCINE 12 YRS+, Branch BIVALENT 0.3ML, IM, (PFIZER JUDD TOP) SARS-COV-2 COVID-19 2022-10-26 Completed Unive rsity of KASEY-SUCROSE 00:00:00 [place] [facility] VACCINE 12 YRS+, Branch BIVALENT 0.3ML, IM, (PFIZER JUDD TOP) SARS-COV-2 COVID-19 2022-10-26 Completed Unive rsity of KASEY-SUCROSE 00:00:00 [place] [facility]ica [facility] VACCINE 12 YRS+, Branch BIVALENT 0.3ML, IM, (PFIZER JUDD TOP) SARS-COV-2 COVID-19 2022-10-26 Completed Unive rsity of KASEY-SUCROSE 00:00:00 [place] [facility] VACCINE 12 YRS+, Branch BIVALENT 0.3ML, IM, (PFIZER JUDD TOP) SARS-COV-2 COVID-19 2022-10-26 Completed Unive rsity of KASEY-SUCROSE 00:00:00 [place] [facility]ica [facility] VACCINE 12 YRS+, Branch BIVALENT 0.3ML, IM, (PFIZER JUDD TOP) SARS-COV-2 COVID-19 2022-10-26 Completed Unive rsity of KASEY-SUCROSE 00:00:00 [place] [facility] VACCINE 12 YRS+, Branch BIVALENT 0.3ML, IM, (PFIZER JUDD TOP) SARS-COV-2 COVID-19 2022-10-26 Completed Unive rsity of KASEY-SUCROSE 00:00:00 [place] [facility] VACCINE 12 YRS+, Branch BIVALENT 0.3ML, IM, (PFIZER JUDD TOP) SARS-COV-2 COVID-19 2022-10-26 Completed Unive rsity of KASEY-SUCROSE 00:00:00 [place] [facility] VACCINE 12 YRS+, Branch BIVALENT 0.3ML, IM, (PFIZER JUDD TOP) SARS-COV-2 COVID-19 2022-10-26 Completed Unive rsity of KASEY-SUCROSE 00:00:00 [place] [facility] VACCINE 12 YRS+, Branch BIVALENT 0.3ML, IM, (PFIZER JUDD TOP) SARS-COV-2 COVID-19 2022-10-26 Completed Unive rsity of KASEY-SUCROSE 00:00:00 [place] [facility] VACCINE 12 YRS+, Branch BIVALENT 0.3ML, IM, (PFIZER JUDD TOP) Pneumococcal 20 2022-06-30 Completed Universit y of Conjugate, PCV20 00:00:00 [place] Me dical (Prevnar 20) Branch Influenza Virus 2022-06-30 Completed Universit y of Vaccine Quad IM, 00:00:00 [place] [facility] Preserv and ABX [place] Free 6 MO-64 YRS Pneumococcal 20 2022-06-30 Completed Universit y of Conjugate, PCV20 00:00:00 [place] [facility] (Prevnar 20) [place] Influenza Virus 2022-06-30 Completed Universit y of [...] Completed Universit y of Conjugate, PCV20 00:00:00 [place] [facility] (Prevnar 20) Branch Influenza Virus 2022-06-30 Completed Universit y of Vaccine Quad IM, 00:00:00 [place] [facility]ical Preserv and ABX Branch Free 6 MO-64 YRS Pneumococcal 20 2022-06-30 Completed Universit y of Conjugate, PCV20 00:00:00 [place] [facility] (Prevnar 20) Branch Influenza Virus 2022-06-30 Completed Universit y of Vaccine Quad IM, 00:00:00 [facility] dical Preserv and ABX Branch Free 6 MO-64 YRS Pneumococcal 20 2022-06-30 Completed Universit y of Conjugate, PCV20 00:00:00 [facility] dical (Prevnar 20) Branch Influenza Virus 2022-06-30 Completed Universit y of Vaccine Quad IM, 00:00:00 [place] [facility] dical Preserv and ABX Branch Free 6 MO-64 YRS Pneumococcal 20 2022-06-30 Completed Universit y of Conjugate, PCV20 00:00:00 [facility] dical (Prevnar 20) Branch Influenza Virus 2022-06-30 Completed Universit y of Vaccine Quad IM, 00:00:00 [facility] dical Preserv and ABX Branch Free 6 MO-64 YRS Pneumococcal 20 2022-06-30 Completed Universit y of Conjugate, PCV20 00:00:00 [place] [facility] (Prevnar 20) Branch Influenza Virus 2022-06-30 Completed Universit y of Vaccine Quad IM, 00:00:00 [facility] dical Preserv and ABX Branch Free 6 MO-64 YRS Pneumococcal 20 2022-06-30 Completed Universit y of Conjugate, PCV20 00:00:00 [place] Me dical (Prevnar 20) Branch Influenza Virus [...] Completed Universit y of Conjugate, PCV20 00:00:00 [facility] dical (Prevnar 20) Branch Influenza Virus 2022-06-30 Completed Universit y of Vaccine Quad IM, 00:00:00 [facility] dical Preserv and ABX Branch Free 6 MO-64 YRS Pneumococcal 20 2022-06-30 Completed Universit y of Conjugate, PCV20 00:00:00 [facility] dical (Prevnar 20) Branch Influenza Virus 2022-06-30 Completed Universit y of Vaccine Quad IM, 00:00:00 [facility] dical Preserv and ABX Branch Free 6 MO-64 YRS Pneumococcal 20 2022-06-30 Completed Universit y of Conjugate, PCV20 00:00:00 [facility] dical (Prevnar 20) Branch Influenza Virus 2022-06-30 Completed Universit y of Vaccine Quad IM, 00:00:00 [facility] dical Preserv and ABX Branch Free 6 MO-64 YRS Pneumococcal 20 2022-06-30 Completed Universit y of Conjugate, PCV20 00:00:00 [facility] dical (Prevnar 20) Branch Influenza Virus 2022-06-30 Completed Universit y of Vaccine Quad IM, 00:00:00 [facility] dical Preserv and ABX Branch Free 6 MO-64 YRS Pneumococcal 20 2022-06-30 Completed Universit y of Conjugate, PCV20 00:00:00 [place] [facility]ical (Prevnar 20) Branch Influenza Virus 2022-06-30 Completed Universit y of Vaccine Quad IM, 00:00:00 [facility] dical Preserv and ABX Branch Free [...] Completed Universit y of Conjugate, PCV20 00:00:00 [place] [facility]ical (Prevnar 20) Branch Influenza Virus 2022-06-30 Completed Universit y of Vaccine Quad IM, 00:00:00 [facility] dical Preserv and ABX Branch Free 6 MO-64 YRS Pneumococcal 20 2022-06-30 Completed Universit y of Conjugate, PCV20 00:00:00 [facility] dical (Prevnar 20) Branch Influenza Virus 2022-06-30 Completed Universit y of Vaccine Quad IM, 00:00:00 [place] Me dical Preserv and ABX Branch Free 6 MO-64 YRS Pneumococcal 20 2022-06-30 Completed Universit y of Conjugate, PCV20 00:00:00 [facility] dical (Prevnar 20) Branch Influenza Virus 2022-06-30 Completed Universit y of Vaccine Quad IM, 00:00:00 [facility] dical Preserv and ABX Branch Free 6 MO-64 YRS Pneumococcal 20 2022-06-30 Completed Universit y of Conjugate, PCV20 00:00:00 [place] [facility] dical (Prevnar 20) Branch Influenza Virus 2022-06-30 Completed Universit y of Vaccine Quad IM, 00:00:00 [facility] dical Preserv and ABX Branch Free 6 MO-64 YRS Pneumococcal 20 2022-06-30 Completed Universit y of Conjugate, PCV20 00:00:00 [place] [facility] dical (Prevnar 20) Branch Influenza Virus 2022-06-30 Completed Universit y of Vaccine Quad IM, 00:00:00 [facility] dical Preserv and ABX Branch Free 6 MO-64 YRS Pneumococcal 20 2022-06-30 Completed Universit y of Conjugate, PCV20 00:00:00 [facility] dical (Prevnar 20) Branch Influenza Virus 2022-06-30 Completed Universit y of Vaccine Quad IM, 00:00:00 [place] Me dical Preserv and ABX Branch Free 6 MO-64 YRS Pneumococcal 20 2022-06-30 Completed Universit y of Conjugate, PCV20 00:00:00 [place] Me dical (Prevnar 20) Branch Influenza Virus 2022-06-30 Completed Universit y of Vaccine Quad IM, 00:00:00 [place] Me dical Preserv and ABX Branch Free 6 MO-64 YRS Pneumococcal 20 2022-06-30 Completed Universit y of Conjugate, PCV20 00:00:00 [place] [facility] dical (Prevnar 20) Branch Influenza Virus 2022-06-30 Completed Universit y of Vaccine Quad IM, 00:00:00 [place] Me dical Preserv and ABX Branch Free 6 MO-64 YRS Pneumococcal 20 2022-06-30 Completed Universit y of Conjugate, PCV20 00:00:00 [facility] dical (Prevnar 20) Branch Influenza Virus 2022-06-30 Completed Universit y of Vaccine Quad IM, 00:00:00 [facility] dical Preserv and ABX Branch Free 6 MO-64 YRS Pneumococcal 20 2022-06-30 Completed Universit y of Conjugate, PCV20 00:00:00 [facility] dical (Prevnar 20) Branch Influenza Virus 2022-06-30 Completed Universit y of Vaccine Quad IM, 00:00:00 [facility] dical Preserv and ABX Branch Free 6 MO-64 YRS Pneumococcal 20 2022-06-30 Completed Universit y of Conjugate, PCV20 00:00:00 [facility] dical (Prevnar 20) Branch Influenza Virus 2022-06-30 Completed Universit y of Vaccine Quad IM, 00:00:00 [place] [facility] dical Preserv and ABX Branch Free 6 MO-64 YRS Pneumococcal 20 2022-06-30 Completed Universit y of Conjugate, PCV20 00:00:00 [place] [facility] dical (Prevnar 20) Branch Influenza Virus 2022-06-30 Completed Universit y of Vaccine Quad IM, 00:00:00 [place] [facility] dical Preserv and ABX Branch Free 6 MO-64 YRS Pneumococcal 20 2022-06-30 Completed Universit y of Conjugate, PCV20 00:00:00 [facility] dical (Prevnar 20) Branch Influenza Virus 2022-06-30 Completed Universit y of Vaccine Quad IM, 00:00:00 [place] Me dical Preserv and ABX Branch Free 6 MO-64 YRS Pneumococcal 20 2022-06-30 Completed Universit y of Conjugate, PCV20 00:00:00 [facility] dical (Prevnar 20) Branch Influenza Virus 2022-06-30 Completed Universit y of Vaccine Quad IM, 00:00:00 [facility] dical Preserv and ABX Branch Free 6 MO-64 YRS SARS-COV-2 COVID-19 2020-11-30 Completed Unive rsity of PFIZER VACCINE 00:00:00 [facility] SARS-COV-2 COVID-19 2020-11-30 Completed Unive rsity of PFIZER VACCINE 00:00:00 [facility] SARS-COV-2 COVID-19 2020-11-30 Completed Unive rsity of PFIZER VACCINE 00:00:00 [facility] SARS-COV-2 COVID-19 2020-11-30 Completed Unive rsity of PFIZER VACCINE 00:00:00 [facility] SARS-COV-2 COVID-19 2020-11-30 Completed Unive rsity of PFIZER VACCINE 00:00:00 [facility] SARS-COV-2 COVID-19 2020-11-30 Completed Unive rsity of PFIZER VACCINE 00:00:00 [facility] SARS-COV-2 COVID-19 2020-11-30 Completed Unive rsity of PFIZER VACCINE 00:00:00 [facility] SARS-COV-2 COVID-19 2020-11-30 Completed Unive rsity of PFIZER VACCINE 00:00:00 [facility] SARS-COV-2 COVID-19 2020-11-30 Completed Unive rsity of PFIZER VACCINE 00:00:00 [facility] SARS-COV-2 COVID-19 2020-11-30 Completed Unive rsity of PFIZER VACCINE 00:00:00 [facility] SARS-COV-2 COVID-19 2020-11-30 Completed Unive rsity of PFIZER VACCINE 00:00:00 [facility] SARS-COV-2 COVID-19 2020-11-30 Completed Unive rsity of PFIZER VACCINE 00:00:00 [facility] Branch SARS-COV-2 COVID-19 2020-11-30 Completed Unive rsity of PFIZER VACCINE 00:00:00 [facility] Branch SARS-COV-2 COVID-19 2020-11-30 Completed Unive rsity of PFIZER VACCINE 00:00:00 [facility] SARS-COV-2 COVID-19 2020-11-30 Completed Unive rsity of PFIZER VACCINE 00:00:00 [facility] SARS-COV-2 COVID-19 2020-11-30 Completed Unive rsity of PFIZER VACCINE 00:00:00 [facility] SARS-COV-2 COVID-19 2020-11-30 Completed Unive rsity of PFIZER VACCINE 00:00:00 [facility] SARS-COV-2 COVID-19 2020-11-30 Completed Unive rsity of PFIZER VACCINE 00:00:00 [facility] SARS-COV-2 COVID-19 2020-11-30 Completed Unive rsity of PFIZER VACCINE 00:00:00 [facility] SARS-COV-2 COVID-19 2020-11-30 Completed Unive rsity of PFIZER VACCINE 00:00:00 [facility] SARS-COV-2 COVID-19 2020-11-30 Completed Unive rsity of PFIZER VACCINE 00:00:00 [facility] SARS-COV-2 COVID-19 2020-11-30 Completed Unive rsity of PFIZER VACCINE 00:00:00 [facility] SARS-COV-2 COVID-19 2020-11-30 Completed Unive rsity of PFIZER VACCINE 00:00:00 [facility] SARS-COV-2 COVID-19 2020-11-30 Completed Unive rsity of PFIZER VACCINE 00:00:00 [facility] SARS-COV-2 COVID-19 2020-11-30 Completed Unive rsity of PFIZER VACCINE 00:00:00 [facility] SARS-COV-2 COVID-19 2020-11-30 Completed Unive rsity of PFIZER VACCINE 00:00:00 [facility] SARS-COV-2 COVID-19 2020-11-30 Completed Unive rsity of PFIZER VACCINE 00:00:00 [facility] SARS-COV-2 COVID-19 2020-11-30 Completed Unive rsity of PFIZER VACCINE 00:00:00 [facility] SARS-COV-2 COVID-19 2020-11-30 Completed Unive rsity of PFIZER VACCINE 00:00:00 [facility] SARS-COV-2 COVID-19 2020-11-30 Completed Unive rsity of PFIZER VACCINE 00:00:00 [facility] SARS-COV-2 COVID-19 2020-11-30 Completed Unive rsity of PFIZER VACCINE 00:00:00 [facility] SARS-COV-2 COVID-19 2020-11-30 Completed Unive rsity of PFIZER VACCINE 00:00:00 [facility] SARS-COV-2 COVID-19 2020-11-30 Completed Unive rsity of PFIZER VACCINE 00:00:00 [facility] SARS-COV-2 COVID-19 2020-11-30 Completed Unive rsity of PFIZER VACCINE 00:00:00 [facility] SARS-COV-2 COVID-19 2020-11-30 Completed Unive rsity of PFIZER VACCINE 00:00:00 [facility] SARS-COV-2 COVID-19 2020-11-30 Completed Unive rsity of PFIZER VACCINE 00:00:00 [facility] SARS-COV-2 COVID-19 2020-11-30 Completed Unive rsity of PFIZER VACCINE 00:00:00 [facility] SARS-COV-2 COVID-19 2020-11-30 Completed Unive rsity of PFIZER VACCINE 00:00:00 [facility] SARS-COV-2 COVID-19 2020-11-09 Completed Unive rsity of PFIZER VACCINE 00:00:00 [facility] SARS-COV-2 COVID-19 2020-11-09 Completed Unive rsity of PFIZER VACCINE 00:00:00 [facility] SARS-COV-2 COVID-19 2020-11-09 Completed Unive rsity of PFIZER VACCINE 00:00:00 [facility] SARS-COV-2 COVID-19 2020-11-09 Completed Unive rsity of PFIZER VACCINE 00:00:00 [facility] SARS-COV-2 COVID-19 2020-11-09 Completed Unive rsity of PFIZER VACCINE 00:00:00 [facility] SARS-COV-2 COVID-19 2020-11-09 Completed Unive rsity of PFIZER VACCINE 00:00:00 [facility] SARS-COV-2 COVID-19 2020-11-09 Completed Unive rsity of PFIZER VACCINE 00:00:00 [facility] SARS-COV-2 COVID-19 2020-11-09 Completed Unive rsity of PFIZER VACCINE 00:00:00 [facility] SARS-COV-2 COVID-19 2020-11-09 Completed Unive rsity of PFIZER VACCINE 00:00:00 [facility] SARS-COV-2 COVID-19 2020-11-09 Completed Unive rsity of PFIZER VACCINE 00:00:00 [facility] SARS-COV-2 COVID-19 2020-11-09 Completed Unive rsity of PFIZER VACCINE 00:00:00 [facility] SARS-COV-2 COVID-19 2020-11-09 Completed Unive rsity of PFIZER VACCINE 00:00:00 [facility] SARS-COV-2 COVID-19 2020-11-09 Completed Unive rsity of PFIZER VACCINE 00:00:00 [facility] SARS-COV-2 COVID-19 2020-11-09 Completed Unive rsity of PFIZER VACCINE 00:00:00 [facility] SARS-COV-2 COVID-19 2020-11-09 Completed Unive rsity of PFIZER VACCINE 00:00:00 [facility] SARS-COV-2 COVID-19 2020-11-09 Completed Unive rsity of PFIZER VACCINE 00:00:00 [facility] SARS-COV-2 COVID-19 2020-11-09 Completed Unive rsity of PFIZER VACCINE 00:00:00 [facility] SARS-COV-2 COVID-19 2020-11-09 Completed Unive rsity of PFIZER VACCINE 00:00:00 [facility] SARS-COV-2 COVID-19 2020-11-09 Completed Unive rsity of PFIZER VACCINE 00:00:00 [facility] SARS-COV-2 COVID-19 2020-11-09 Completed Unive rsity of PFIZER VACCINE 00:00:00 [facility] SARS-COV-2 COVID-19 2020-11-09 Completed Unive rsity of PFIZER VACCINE 00:00:00 [facility] SARS-COV-2 COVID-19 2020-11-09 Completed Unive rsity of PFIZER VACCINE 00:00:00 [facility] SARS-COV-2 COVID-19 2020-11-09 Completed Unive rsity of PFIZER VACCINE 00:00:00 [facility] SARS-COV-2 COVID-19 2020-11-09 Completed Unive rsity of PFIZER VACCINE 00:00:00 [facility] SARS-COV-2 COVID-19 2020-11-09 Completed Unive rsity of PFIZER VACCINE 00:00:00 [facility] SARS-COV-2 COVID-19 2020-11-09 Completed Unive rsity of PFIZER VACCINE 00:00:00 [facility] SARS-COV-2 COVID-19 2020-11-09 Completed Unive rsity of PFIZER VACCINE 00:00:00 [facility] SARS-COV-2 COVID-19 2020-11-09 Completed Unive rsity of PFIZER VACCINE 00:00:00 [facility] SARS-COV-2 COVID-19 2020-11-09 Completed Unive rsity of PFIZER VACCINE 00:00:00 [facility] SARS-COV-2 COVID-19 2020-11-09 Completed Unive rsity of PFIZER VACCINE 00:00:00 [facility] SARS-COV-2 COVID-19 2020-11-09 Completed Unive rsity of PFIZER VACCINE 00:00:00 [facility] SARS-COV-2 COVID-19 2020-11-09 Completed Unive rsity of PFIZER VACCINE 00:00:00 [facility] SARS-COV-2 COVID-19 2020-11-09 Completed Unive rsity of PFIZER VACCINE 00:00:00 [facility] SARS-COV-2 COVID-19 2020-11-09 Completed Unive rsity of PFIZER VACCINE 00:00:00 [facility] SARS-COV-2 COVID-19 2020-11-09 Completed Unive rsity of PFIZER VACCINE 00:00:00 [facility] SARS-COV-2 COVID-19 2020-11-09 Completed Unive rsity of PFIZER VACCINE 00:00:00 [facility] SARS-COV-2 COVID-19 2020-11-09 Completed Unive rsity of PFIZER VACCINE 00:00:00 [facility] SARS-COV-2 COVID-19 2020-11-09 Completed Unive rsity of PFIZER VACCINE 00:00:00 [facility] Influenza Virus 2020-08-19 Completed [facility] .5 mL 00:00:00 [facility] 6[facility] MO [facility] Influenza Virus [...] y of Vaccine Quad .5 mL 00:00:00 [facility] Influenza Virus 2020-08-19 Completed [facility] .5 mL 00:00:00 [facility] 6+ [facility] Influenza Virus 2020-08-19 Completed [facility] .5 mL 00:00:00 [facility] 6+ MO [facility] Influenza Virus 2020-08-19 Completed [facility] .5 mL 00:00:00 [facility] Influenza Virus 2020-08-19 Completed [facility] .5 mL 00:00:00 [facility] 6+ MO Branch Influenza Virus [...] y of Vaccine Quad .5 mL 00:00:00 [facility] 6+ [facility] Influenza Virus 2019-08-20 Completed [facility] .5 mL 00:00:00 [facility] 6+ [facility] Influenza Virus 2019-08-20 Completed [facility] .5 mL 00:00:00 [facility] 6[facility] Influenza Virus 2019-08-20 Completed [facility] .5 mL 00:00:00 [facility] 6+ [facility] Influenza Virus 2018-06-18 Completed [facility] IM 3+ 00:00:00 [facility] Pneumococcal 2018-06-18 Completed University o f Polysaccharide, 00:00:00 [place] [facility] PPSV23 (PNEUMOVAX) Branch Influenza Virus 2018-06-18 Completed [facility] IM 3+ 00:00:00 [facility] Pneumococcal 2018-06-18 Completed University o f Polysaccharide, 00:00:00 [facility] PPSV23 (PNEUMOVAX) Branch Influenza Virus 2018-06-18 Completed [facility]ine [facility] IM 3+ 00:00:00 [facility] Pneumococcal 2018-06-18 Completed University o f Polysaccharide, 00:00:00 [facility] PPSV23 (PNEUMOVAX) Branch Influenza Virus 2018-06-18 Completed [facility] Vaccine [facility] IM 3+ 00:00:00 [facility] Pneumococcal 2018-06-18 Completed University o f Polysaccharide, 00:00:00 [facility] PPSV23 (PNEUMOVAX) Branch Influenza Virus 2018-06-18 Completed [facility] IM 3+ 00:00:00 [facility] Pneumococcal 2018-06-18 Completed University o f Polysaccharide, 00:00:00 [place] [facility] PPSV23 (PNEUMOVAX) Branch Influenza Virus 2018-06-18 Completed [facility] Vaccine [facility] IM 3+ 00:00:00 [facility] Pneumococcal 2018-06-18 Completed University o f Polysaccharide, 00:00:00 [facility] PPSV23 (PNEUMOVAX) Branch Influenza Virus 2018-06-18 Completed [facility] IM 3+ 00:00:00 [facility] Pneumococcal 2018-06-18 Completed University o f Polysaccharide, 00:00:00 [facility] PPSV23 (PNEUMOVAX) Branch Influenza Virus 2018-06-18 Completed [facility] IM 3+ 00:00:00 [facility] Pneumococcal 2018-06-18 Completed University o f Polysaccharide, 00:00:00 [place] [facility] PPSV23 (PNEUMOVAX) Branch Influenza Virus 2018-06-18 Completed [facility] IM 3+ 00:00:00 [facility] Pneumococcal 2018-06-18 Completed University o f Polysaccharide, 00:00:00 [facility] PPSV23 (PNEUMOVAX) Branch Influenza Virus 2018-06-18 Completed [facility] IM 3+ 00:00:00 [facility] Pneumococcal 2018-06-18 Completed University o f Polysaccharide, 00:00:00 [place] [facility] PPSV23 (PNEUMOVAX) Branch Influenza Virus 2018-06-18 Completed [facility] IM 3+ 00:00:00 [facility] Pneumococcal 2018-06-18 Completed University o f Polysaccharide, 00:00:00 [place] [facility] PPSV23 (PNEUMOVAX) Branch Influenza Virus 2018-06-18 Completed [facility] IM 3+ 00:00:00 [facility] Pneumococcal 2018-06-18 Completed University o f Polysaccharide, 00:00:00 [place] [facility] PPSV23 (PNEUMOVAX) Branch Influenza Virus 2018-06-18 Completed [facility] IM 3+ 00:00:00 [facility] Pneumococcal 2018-06-18 Completed University o f Polysaccharide, 00:00:00 [place] [facility] PPSV23 (PNEUMOVAX) Branch Influenza Virus 2018-06-18 Completed [facility] IM 3+ 00:00:00 [facility] Pneumococcal 2018-06-18 Completed University o f Polysaccharide, 00:00:00 [place] [facility] PPSV23 (PNEUMOVAX) Branch Influenza Virus 2018-06-18 Completed [facility] IM 3+ 00:00:00 [facility] Pneumococcal 2018-06-18 Completed University o f Polysaccharide, 00:00:00 [place] [facility] PPSV23 (PNEUMOVAX) Branch Influenza Virus 2018-06-18 Completed [facility] IM 3+ 00:00:00 [facility] Pneumococcal 2018-06-18 Completed University o f Polysaccharide, 00:00:00 [place] [facility] PPSV23 (PNEUMOVAX) Branch Influenza Virus 2018-06-18 Completed [facility] IM 3+ 00:00:00 [facility] Pneumococcal 2018-06-18 Completed University o f Polysaccharide, 00:00:00 [place] [facility] PPSV23 (PNEUMOVAX) Branch Influenza Virus 2018-06-18 Completed [facility] IM 3+ 00:00:00 [facility] Pneumococcal 2018-06-18 Completed University o f Polysaccharide, 00:00:00 [place] [facility] PPSV23 (PNEUMOVAX) Branch Influenza Virus 2018-06-18 Completed [facility] IM 3+ 00:00:00 [facility] Pneumococcal 2018-06-18 Completed University o f Polysaccharide, 00:00:00 [place] [facility] PPSV23 (PNEUMOVAX) Branch Influenza Virus 2018-06-18 Completed [facility] IM 3+ 00:00:00 [facility] Pneumococcal 2018-06-18 Completed University o f Polysaccharide, 00:00:00 [place] [facility] PPSV23 (PNEUMOVAX) Branch Influenza Virus 2018-06-18 Completed [facility]ine [facility] IM 3+ 00:00:00 [facility] Pneumococcal 2018-06-18 Completed University o f Polysaccharide, 00:00:00 [place] [facility] PPSV23 (PNEUMOVAX) Branch Influenza Virus 2018-06-18 Completed [facility] IM 3+ 00:00:00 [facility] Pneumococcal 2018-06-18 Completed University o f Polysaccharide, 00:00:00 [place] [facility] PPSV23 (PNEUMOVAX) Branch Influenza Virus 2018-06-18 Completed [facility] IM 3+ 00:00:00 [facility] Pneumococcal 2018-06-18 Completed [facility] o f Polysaccharide, 00:00:00 [place] [facility] PPSV23 (PNEUMOVAX) Branch Influenza Virus 2018-06-18 Completed [facility] Vaccine [facility] IM 3+ 00:00:00 [facility] Pneumococcal 2018-06-18 Completed [facility] o f Polysaccharide, 00:00:00 [place] [facility] PPSV23 (PNEUMOVAX) Branch Influenza Virus 2018-06-18 Completed [facility] IM 3+ 00:00:00 [facility] Pneumococcal 2018-06-18 Completed [facility] o f Polysaccharide, 00:00:00 [place] [facility] PPSV23 (PNEUMOVAX) Branch Influenza Virus 2018-06-18 Completed [facility]ine [facility] IM 3+ 00:00:00 [facility] Pneumococcal 2018-06-18 Completed [facility] o f Polysaccharide, 00:00:00 [place] [facility] PPSV23 (PNEUMOVAX) Branch Influenza Virus 2018-06-18 Completed [facility] Vaccine [facility] IM 3+ 00:00:00 [facility] Pneumococcal 2018-06-18 Completed [facility] o f Polysaccharide, 00:00:00 [place] [facility] PPSV23 (PNEUMOVAX) Branch Influenza Virus 2018-06-18 Completed [facility] Vaccine [facility] IM 3+ 00:00:00 [facility] Pneumococcal 2018-06-18 Completed [facility] o f Polysaccharide, 00:00:00 [place] [facility] PPSV23 (PNEUMOVAX) Branch Influenza Virus 2018-06-18 Completed [facility] Vaccine [facility] IM 3+ 00:00:00 [facility] Pneumococcal 2018-06-18 Completed [facility] o f Polysaccharide, 00:00:00 [place] [facility] PPSV23 (PNEUMOVAX) Branch Influenza Virus 2018-06-18 Completed [facility] Vaccine [facility] IM 3+ 00:00:00 [facility] Pneumococcal 2018-06-18 Completed [facility] o f Polysaccharide, 00:00:00 [place] [facility] PPSV23 (PNEUMOVAX) Branch Influenza Virus 2018-06-18 Completed [facility] Vaccine [facility] IM 3+ 00:00:00 [facility] Pneumococcal 2018-06-18 Completed [facility] o f Polysaccharide, 00:00:00 [place] [facility] PPSV23 (PNEUMOVAX) Branch Influenza Virus 2018-06-18 Completed [facility] Vaccine [facility] IM 3+ 00:00:00 [facility] Pneumococcal 2018-06-18 Completed [facility] o f Polysaccharide, 00:00:00 [place] [facility] PPSV23 (PNEUMOVAX) Branch Influenza Virus 2018-06-18 Completed [facility]ine [facility] IM 3+ 00:00:00 [facility] Pneumococcal 2018-06-18 Completed [facility] o f Polysaccharide, 00:00:00 [place] [facility] PPSV23 (PNEUMOVAX) Branch Influenza Virus 2018-06-18 Completed [facility] IM 3+ 00:00:00 [facility] Pneumococcal 2018-06-18 Completed [facility] o f Polysaccharide, 00:00:00 [place] [facility] PPSV23 (PNEUMOVAX) Branch Influenza Virus 2018-06-18 Completed [facility] Vaccine [facility] IM 3+ 00:00:00 [facility] Pneumococcal 2018-06-18 Completed [facility] o f Polysaccharide, 00:00:00 [place] [facility] PPSV23 (PNEUMOVAX) Branch Influenza Virus 2018-06-18 Completed [facility] Vaccine [facility] IM 3+ 00:00:00 [facility] Pneumococcal 2018-06-18 Completed [facility] o f Polysaccharide, 00:00:00 [place] [facility] PPSV23 (PNEUMOVAX) Branch Influenza Virus 2018-06-18 Completed [facility]ine [facility] IM 3+ 00:00:00 [facility] Pneumococcal 2018-06-18 Completed [facility] o f Polysaccharide, 00:00:00 [place] [facility] PPSV23 (PNEUMOVAX) Branch Influenza Virus 2018-06-18 Completed [facility] Vaccine [facility] IM 3+ 00:00:00 [facility] Pneumococcal 2018-06-18 Completed [facility] o f Polysaccharide, 00:00:00 [place] [facility] PPSV23 (PNEUMOVAX) Branch Influenza Virus 2017-10-17 Completed [facility] Vaccine [facility] ID 00:00:00 [place] [facility] 18-64 YRS Branch Influenza Virus 2017-10-17 Completed [facility] Vaccine [facility] ID 00:00:00 [facility] [age] Y[facility] Branch Influenza Virus 2017-10-17 Completed [facility] Vaccine [facility] ID 00:00:00 [place] [facility] 1862 Y[facility] [place] Influenza Virus 2017-10-17 Completed [facility] Vaccine Quad ID 00:00:00 [place] [facility] 18-64 YRS Branch Influenza Virus 2017-10-17 Completed [facility] Vaccine Quad ID 00:00:00 [place] [facility] 18-64 YRS Branch Influenza Virus 2017-10-17 Completed [facility] Vaccine Quad ID 00:00:00 [facility] 18-64 YRS Branch Influenza Virus 2017-10-17 Completed [facility] Vaccine Quad ID 00:00:00 [place] [facility] 18-64 YRS Branch Influenza Virus 2017-10-17 Completed [facility] Vaccine Quad ID 00:00:00 [facility] 18-64 YRS Branch Influenza Virus 2017-10-17 Completed [facility] Vaccine Quad ID 00:00:00 [place] [facility] 18-64 YRS Branch Influenza Virus 2017-10-17 Completed [facility] y of Vaccine Quad ID 00:00:00 [facility] ical 18-64 YRS Branch Influenza Virus 2017-10-17 Completed [facility]it y of Vaccine Quad ID 00:00:00 [facility] ical 18-64 YRS [place] Influenza Virus 2017-10-17 Completed [facility]it y of Vaccine Quad ID 00:00:00 [facility] ical 18-64 YRS [place] Influenza Virus 2017-10-17 Completed [facility]it y of Vaccine Quad ID 00:00:00 [facility] ical 18-64 YRS [place] Influenza Virus 2017-10-17 Completed [facility]it y of Vaccine Quad ID 00:00:00 [facility] ical 18-64 YRS Branch Influenza Virus 2017-10-17 Completed [facility]it y of Vaccine Quad ID 00:00:00 [facility] ical 18-64 YRS [place] Influenza Virus 2017-10-17 Completed [facility]it y of Vaccine Quad ID 00:00:00 [facility] ical 18-64 YRS Branch Influenza Virus 2017-10-17 Completed [facility] Vaccine Quad ID 00:00:00 [place] [facility] 18-64 YRS Branch Influenza Virus 2017-10-17 Completed [facility] Vaccine [facility] ID 00:00:00 [place] [facility] 18-64 YRS Branch Influenza Virus 2017-10-17 Completed [facility] Vaccine [facility] ID 00:00:00 [place] [facility] 18-64 YRS Branch Influenza Virus 2017-10-17 Completed [facility] Vaccine [facility] ID 00:00:00 [place] [facility] 18-64 YRS [place] Influenza Virus 2017-10-17 Completed [facility] Vaccine Quad ID 00:00:00 [facility] ical 18-64 YRS Branch Influenza Virus 2017-10-17 Completed [facility] Vaccine Quad ID 00:00:00 [place] [facility] 18-64 YRS Branch Influenza Virus 2017-10-17 Completed [facility] Vaccine [facility] ID 00:00:00 [place] [facility] 18-64 YRS Branch Influenza Virus 2017-10-17 Completed [facility] Vaccine [facility] ID 00:00:00 [place] [facility] 18-64 YRS Branch Influenza Virus [...] Universit y of Vaccine Quad ID 00:00:00 [facility] ical 18-64 YRS Branch Influenza Virus 2017-10-17 Completed [facility]it y of Vaccine Quad ID 00:00:00 [facility] ical 18-64 YRS Branch Influenza Virus 2017-10-17 Completed [facility]it y of Vaccine Quad ID 00:00:00 [facility] ical 18-64 YRS Branch Influenza Virus 2017-10-17 Completed [facility]it y of Vaccine Quad ID 00:00:00 [facility] ical 18-64 YRS Branch Influenza Virus 2017-10-17 Completed [facility]it y of Vaccine Quad ID 00:00:00 [facility] ical 18-64 YRS Branch Influenza Virus 2017-10-17 Completed [facility] y of Vaccine Quad ID 00:00:00 [facility] ical 18-64 YRS Branch Influenza Virus 2017-10-17 Completed [facility] y of Vaccine Quad ID 00:00:00 [place] [facility] 18-64 YRS Branch Influenza Virus [...] [facility] y [facility] Vaccine Quad ID 00:00:00 [place] [facility] 18-64 YRS Branch Td 2017-02-25 Completed [facility] of 00:00:00 [facility] Td 2017-02-25 Completed [facility] of 00:00:00 [facility] Td 2017-02-25 Completed University of 00:00:00 [facility] Td 2017-02-25 Completed [facility] of 00:00:00 [facility] Td 2017-02-25 Completed [facility] of 00:00:00 [facility] Td 2017-02-25 Completed [facility] of 00:00:00 [facility] Td 2017-02-25 Completed [facility] of 00:00:00 [facility] Td 2017-02-25 Completed [facility] of 00:00:00 [facility] Td 2017-02-25 Completed [facility] of 00:00:00 [facility] Td 2017-02-25 Completed [facility] of 00:00:00 [facility] TD, NOS 2017-02-25 Completed [facility] of 00:00:00 [facility] TD, NOS 2017-02-25 Completed [facility] of 00:00:00 [facility] TD, NOS 2017-02-25 Completed [facility] of 00:00:00 [facility] TD, NOS 2017-02-25 Completed [facility] of 00:00:00 [facility] TD, NOS 2017-02-25 Completed [facility] of 00:00:00 [facility] TD, NOS 2017-02-25 Completed [facility] of 00:00:00 [facility] TD, NOS 2017-02-25 Completed [facility] of 00:00:00 [facility] TD, NOS 2017-02-25 Completed University of 00:00:00 [facility] TD, NOS 2017-02-25 Completed [facility] of 00:00:00 [facility] TD, NOS 2017-02-25 Completed [facility] of 00:00:00 [facility] TD, NOS 2017-02-25 Completed University of 00:00:00 [facility] TD, NOS 2017-02-25 Completed [facility] of 00:00:00 [facility] TD, NOS 2017-02-25 Completed [facility] of 00:00:00 [facility] TD, NOS 2017-02-25 Completed University of 00:00:00 [facility] TD, NOS 2017-02-25 Completed [facility] of 00:00:00 [facility] TD, NOS 2017-02-25 Completed [facility] of 00:00:00 [facility] TD, NOS 2017-02-25 Completed [facility] of 00:00:00 [facility] TD, NOS 2017-02-25 Completed University of 00:00:00 [facility] TD, NOS 2017-02-25 Completed [facility] of 00:00:00 [facility] TD, NOS 2017-02-25 Completed University of 00:00:00 [facility] TD, NOS 2017-02-25 Completed University of 00:00:00 [facility] TD, NOS 2017-02-25 Completed University of 00:00:00 [facility] TD, NOS 2017-02-25 Completed University of 00:00:00 [facility] TD, NOS 2017-02-25 Completed University of 00:00:00 [facility] TD, NOS 2017-02-25 Completed University of 00:00:00 [facility] TD, NOS 2017-02-25 Completed [facility] of 00:00:00 [facility] TD, NOS 2017-02-25 Completed [facility] 00:00:00 [facility] TD, NOS 2017-02-25 Completed University of 00:00:00 [facility] Vital Signs Vital Name Observation Time Observation Value Comments Source Systolic blood 2023-04-26 15:09:00 120 mm[Hg] Univer sity of pressure [facility] Diastolic blood 2023-04-26 15:09:00 82 mm[Hg] Unive rsity of [facility] Heart rate 2023-04-26 15:09:00 97 /min [facility] Body temperature 2023-04-26 15:09:00 36.72 Suzy [facility] 2023-04-26 15:09:00 18 /min [facility] Body height 2023-04-26 15:09:00 157.5 cm [facility] Body weight 2023-04-26 15:09:00 55.792 kg [facility] BMI 2023-04-26 15:09:00 22.50 kg/m2 [facility] Oxygen saturation in 2023-04-26 15:09:00 92 /min [facility] Arterial blood by [facility] Pulse oximetry Branch Systolic blood 2023-04-26 15:06:00 120 mm[Hg] Univer sity of pressure [facility] Diastolic blood 2023-04-26 15:06:00 82 mm[Hg] Unive rsity of [facility] Heart rate 2023-04-26 15:06:00 97 /min [facility] Body temperature 2023-04-26 15:06:00 36.72 Suzy Univ ersity of [facility] Respiratory rate 2023-04-26 15:06:00 18 /min Univ ersity of [facility] Body weight 2023-04-26 15:06:00 55.792 kg [facility] BMI 2023-04-26 15:06:00 22.50 kg/m2 [facility] Oxygen saturation in 2023-04-26 15:06:00 92 /min University of Arterial blood by [facility] Pulse oximetry Branch Systolic blood 2023-03-23 16:48:00 130 mm[Hg] Univer sity of pressure [facility] Diastolic blood 2023-03-23 16:48:00 84 mm[Hg] Unive rsity of pressure [facility] Heart rate 2023-03-23 16:48:00 91 /min [facility] Body height 2023-03-23 16:48:00 157.5 cm [facility] Body weight 2023-03-23 16:48:00 55.792 kg [facility] BMI 2023-03-23 16:48:00 22.50 kg/m2 [facility] Oxygen saturation in 2023-03-23 16:48:00 96 /min University of Arterial blood by [facility] Pulse oximetry Branch Systolic blood 2022-10-26 17:37:00 134 mm[Hg] Univer sity of pressure [facility] Diastolic blood 2022-10-26 17:37:00 87 mm[Hg] Unive rsity of pressure [facility] Heart rate 2022-10-26 17:37:00 91 /min [facility] Body temperature 2022-10-26 17:37:00 37.11 Suzy Univ ersity of [facility] Respiratory rate 2022-10-26 17:37:00 18 /min Univ ersity of [facility] Body height 2022-10-26 17:37:00 157.5 cm [facility] Body weight 2022-10-26 17:37:00 55.838 kg [facility] BMI 2022-10-26 17:37:00 22.52 kg/m2 Universi ty of [facility] Oxygen saturation in 2022-10-26 17:37:00 98 /min University of Arterial blood by [facility] Pulse oximetry Branch Systolic blood 2022-06-30 16:08:00 113 mm[Hg] Univer sity of pressure [facility] [place] Diastolic blood 2022-06-30 16:08:00 73 mm[Hg] Unive rsity of pressure [facility] Heart rate 2022-06-30 16:08:00 94 /min Universi ty of [facility] Body temperature 2022-06-30 16:08:00 36 Suzy Univ ersity of [facility] Body height 2022-06-30 16:08:00 157.5 cm Universi ty of [facility] Body weight 2022-06-30 16:08:00 65.772 kg Universi ty [facility] BMI 2022-06-30 16:08:00 26.52 kg/m2 Universi ty [facility] Oxygen saturation in 2022-06-30 16:08:00 100 /min University of Arterial blood by [facility] Pulse oximetry Branch HEIGHT 2021-09-08 09:00:00 155 cm WEIGHT 2021-09-08 04:00:00 66.316 kg HEIGHT 2021-09-08 09:00:00 155 cm WEIGHT 2021-09-08 04:00:00 66.316 kg Systolic blood 2021-09-15 11:22:00 83 mm[Hg] [facility] Diastolic blood 2021-09-15 11:22:00 59 mm[Hg] [facility] Heart rate 2021-09-15 11:22:00 112 /min [facility] Body temperature 2021-09-15 11:22:00 35.56 Suzy [facility] Respiratory rate 2021-09-15 11:22:00 20 /min [facility] Oxygen saturation in 2021-09-15 11:22:00 94 /min [facility] Arterial blood by Medical nter Pulse oximetry Body height 2021-09-08 09:00:00 155 cm [facility] Body weight 2021-09-08 04:00:00 66.316 kg [facility] BMI 2021-09-08 04:00:00 27.60 kg/m2 [facility] Procedures Procedure Date / Time Performing Clinician Source Performed COMP. METABOLIC PANEL 2023-04-26 15:44:00 Gay Crystal [facility] ([id number]) Medical Branch LIPID PANEL ([id number])(TOTAL 2023-04-26 15:44:00 Gay Crystal [facility] CHOLESTEROL, Medical Branch TRIGLYCERIDES, HDL) CBC WITH DIFF 2023-04-26 15:44:00 Johnny Gay [facility] VITAMIN D, 25-OH 2023-04-26 15:44:00 Isiah Crystalssica [facility] Medical [place] HOME HEALTH 485 2023-03-20 05:01:00 Doctor Elizabeth [facility] [place] Medical [place] CBC WITH DIFF 2022-10-26 18:51:00 Isiah Crystalssica [facility] SARS-COV-2 COVID-19 2022-10-26 18:08:55 Gay Crystal [facility] KASEY-SUCROSE VACCINE 12 Medical Branch YRS+, BIVALENT 0.3ML, IM, (PFIZER JUDD TOP BOOSTER) ASSIGNMENT OF BENEFITS 2022-10-26 17:12:52 Doctor Bert Johnson [facility] Name [facility] FLU VACC ([id number]), 6 2022-06-30 16:41:22 Jahaira Diamond [facility] MO-64 YRS, .5ML, IM, QUAD Medica l Branch (FLUCELVAX) PNEUMOCOCCAL 20 CONJUGATE 2022-06-30 16:41:22 Jahaira Diamond [facility] (PREVNAR 20) VACCINE Medical Bra [facility] HOME HEALTH - OTHER 2022-04-14 05:01:[address] [facility] HOME HEALTH 485 2022-04-09 05:01:00 Doctor Elizabeth [facility] Medical [place] HOME HEALTH - OTHER 2022-03-23 05:01:00 [facility] 485 2022-02-24 05:01:00 Doctor Elizabeth [facility] SARS-COV2/RT-PCR ([facility] & 2021-09-15 04:41:00 Kyra Shaffer [facility] REF LABS) Center SARS-COV2/RT-PCR ([facility] & 2021-09-14 16:34:00 Nereida Norman [facility] REF LABS) [place] CBC W/PLT COUNT & AUTO 2021-09-14 05:32:00 [facility] DIFFERENTIAL [facility] CBC W/PLT COUNT & AUTO 2021-09-14 05:32:00 [facility] DIFFERENTIAL [facility] VANCOMYCIN LEVEL, TROUGH 2021-09-13 13:54:00 [facility] CBC W/PLT COUNT & AUTO 2021-09-13 13:54:00 [facility] DIFFERENTIAL [facility] CBC W/PLT COUNT & AUTO 2021-09-13 13:54:[address] [facility] ECG 12-LEAD 2021-09-12 17:48:43 Unknown, Hl7 Doctor [facility] ECG 12-LEAD 2021-09-12 17:48:43 Unknown, Hl7 Doctor [facility] VANCOMYCIN LEVEL, TROUGH 2021-09-12 13:07:00 [facility] CBC W/PLT COUNT & AUTO 2021-09-12 13:07:00 [facility] DIFFERENTIAL [facility] BASIC METABOLIC PANEL (7) 2021-09-12 13:07[facility] & AUTO 2021-09-12 13:07:00 [facility] DIFFERENTIAL [facility] LACTIC ACID, VENOUS 2021-09-12 13:06:00 [facility] BASIC METABOLIC PANEL (7) 2021-09-11 13:29:00 MACHELLE Rutherford I [facility] MAGNESIUM 2021-09-11 13:29:00 [facility] VANCOMYCIN LEVEL, TROUGH 2021-09-10 11:38:00 [facility] CALCIUM 2021-09-10 05:55:00 [facility] CBC W/PLT COUNT & AUTO 2021-09-10 03:45:00 [place] [facility] BASIC METABOLIC PANEL (7) 2021-09-10 03:45[facility] 2021-09-10 03:45:00 [place] [facility] PHOSPHORUS 2021-09-10 03:45:00 [facility] W/PLT COUNT & AUTO 2021-09-10 03:45:00 [place] [facility] MAGNESIUM 2021-09-10 03:45:00 [facility] ALBUMIN 2021-09-10 03:45:00 [facility] VANCOMYCIN LEVEL, TROUGH 2021-09-09 19:17:00 [facility] CBC W/PLT COUNT & AUTO 2021-09-09 03:33:00 [place] [facility] BASIC METABOLIC PANEL (7) 2021-09-09 03:33:00 [facility] CALCIUM, IONIZED 2021-09-09 03:33:00 [facility] 2021-09-09 03:33:00 [facility] [place] CBC W/PLT COUNT & AUTO 2021-09-09 03:33:00 [place] [facility] MAGNESIUM 2021-09-09 03:33:00 [place] [facility] TRANSESOPHAGEAL ECHO 2021-09-08 11:20:43 [facility] COLOR-FLOW MAPPING 2021-09-08 06:45:11 [facility] CONT WAVE PULSED DOPPLER 2021-09-08 06:45:11 [facility] BLOOD CULTURE 2021-09-08 00:29:00 [facility] COMPREHENSIVE METABOLIC 2021-09-08 00:28:00 [facility] MAGNESIUM 2021-09-08 00:28:00 [facility] C-REACTIVE PROTEIN 2021-09-08 00:28:00 [facility] LACTIC ACID, VENOUS 2021-09-08 00:28:00 [facility] BLOOD GAS, VENOUS 2021-09-08 00:28:00 [facility] CBC W/PLT COUNT & AUTO 2021-09-08 00:27:00 [facility] BLOOD CULTURE 2021-09-08 00:27:00 [facility] CBC W/PLT COUNT & AUTO 2021-09-08 00:27:00 [facility] Plan of Care Planned Activity Planned Date Details Comments Source Future Scheduled 2027-02-25 DTAP/TDAP/TD VACCINES (2 [facility] Test 00:00:00 - Td or Tdap) [[facility] DTAP/TDAP/TD VACCINES (2 - Td or Tdap)] Future Scheduled 2027-02-25 DTAP/TDAP/TD VACCINES (2 [facility] Test 00:00:00 - Td or Tdap) [[facility] DTAP/TDAP/TD VACCINES (2 - Td or Tdap)] Future Scheduled 2027-02-25 DTAP/TDAP/TD VACCINES ([address] [facility] Test 00:00:00 - Td or Tdap) [code = Medica l Center DTAP/TDAP/TD VACCINES (2 - Td or Tdap)] Future Scheduled 2027-02-25 DTAP/TDAP/TD VACCINES ([address] [facility] Test 00:00:00 - Td or Tdap) [code = Medica l Center DTAP/TDAP/TD VACCINES (2 - Td or Tdap)] Future Scheduled 2027-02-25 DTAP/TDAP/TD VACCINES ([address] [facility] Test 00:00:00 - Td or Tdap) [code = Medica l Center DTAP/TDAP/TD VACCINES (2 - Td or Tdap)] Future Scheduled 2023-12-29 Screening for malignant [facility] Test 00:00:00 neoplasm of cervix Medical C enter (procedure) [code = 182247950] Future Scheduled 2023-06-18 PNEUMOCOCCAL VACCINE 0-[address] [facility] Test 00:00:00 YRS (2 of 2 - PPSV23) Medica l Center [code = PNEUMOCOCCAL VACCINE 0-64 YRS (2 of 2 - PPSV23)] Future Scheduled 2023-06-18 PNEUMOCOCCAL VACCINE 0-[address] [facility] Test 00:00:00 YRS (2 of 2 - PPSV23) Medica l Center [code = PNEUMOCOCCAL VACCINE 0-64 YRS (2 of 2 - PPSV23)] Future Scheduled 2023-05-18 Influenza Vaccine (#1) [facility] 00:00:00 [code = Influenza Vaccine Me dical Center (#1)] Future Scheduled 2022-09-[address] [facility] Test 00:00:00 (12+) [code = DEPRESSION Med ical Center SCREENING (12+)] Future Scheduled 2022-09-17 FALLS RISK SCREENING [facility] Test 00:00:00 [code = FALLS RISK Medical C enter SCREENING] Future Scheduled 2022-09-[address] [facility] Test 00:00:00 (12+) [code = DEPRESSION Med ical Center SCREENING (12+)] Future Scheduled 2022-09-17 FALLS RISK SCREENING [facility] Test 00:00:00 [code = FALLS RISK Medical C enter SCREENING] Future Scheduled 2022-09-[address] [facility] Test 00:00:00 Counseling and Screening Med ical Center (12+) [code = Tobacco Cessation Counseling and Screening (12+)] Future Scheduled 2022-09-[address] [facility] Test 00:00:00 Counseling and Screening Med ical Center (12+) [code = Tobacco Cessation Counseling and Screening (12+)] Future Scheduled 2022-05-18 INFLUENZA VACCINE (#1) [facility] 00:00:00 [code = INFLUENZA VACCINE Me dical Center (#1)] Future Scheduled 2022-05-18 INFLUENZA VACCINE (#1) [facility] 00:00:00 [code = INFLUENZA VACCINE Me dical Center (#1)] Future Scheduled 2021-09-[address] [facility] Test 00:00:00 (12+) [code = DEPRESSION Med ical Center SCREENING (12+)] Future Scheduled 2021-09-[address] [facility] Test 00:00:00 (12+) [code = DEPRESSION Med ical Center SCREENING (12+)] Future Scheduled 2021-09-[address] [facility] Test 00:00:00 (12+) [code = DEPRESSION Med ical Center SCREENING (12+)] Future Scheduled 2021-06-02 COVID-19 VACCINE [facility] [code = INFLUENZA VACCINE Me dical Center (#1)] Future Scheduled 2021-05-18 INFLUENZA VACCINE (#1) [facility] 00:00:00 [code = INFLUENZA VACCINE Me dical Center (#1)] Future Scheduled 2021-05-02 COVID-19 VACCINE (3 - [facility] 00:[facility]:00 Booster for Pfizer Medical C enter series) [code = COVID-19 VACCINE (3 - Booster for Pfizer series)] Future Scheduled 2021-05-02 COVID-19 VACCINE (3 - [facility] 00:00:00 Booster for Pfizer Medical C enter series) [code = COVID-19 VACCINE (3 - Booster for Pfizer series)] Future Scheduled 2021-01-25 COVID-19 VACCINE (3 - [facility] 00:00:00 Booster for Pfizer Medical C enter series) [code = COVID-19 VACCINE (3 - Booster for Pfizer series)] Future Scheduled 2019-06-18 PNEUMOCOCCAL VACCINE 0-[address] [facility] Test 00:00:00 YRS (2 - PCV) [code = Medica l Center PNEUMOCOCCAL VACCINE 0-64 YRS (2 - PCV)] Future Scheduled 2019-06-18 PNEUMOCOCCAL 65+ YRS (2 - [facility] Test 00:00:00 PCV) [code = PNEUMOCOCCAL Me dical Center 65+ YRS (2 - PCV)] Future Scheduled [...] [facility] 00:00:00 [code = 57602007] Medical Ce nter Future Scheduled 2002 Lipid panel (procedure) [facility] Test 00:00:00 [code = 55510755] Medical Ce nter Future Scheduled 2002 Lipid panel (procedure) [facility] Test 00:00:00 [code = 12425176] Medical Ce nter Future Scheduled 2002 Lipid panel (procedure) [facility] Test 00:00:00 [code = 61347119] Medical Ce nter Future Scheduled 2002 Lipid panel (procedure) [facility] Test 00:00:00 [code = 26378029] Medical Ce nter Future Scheduled 1999-03-18 MEDICARE ANNUAL WELLNESS [facility] Test 00:00:00 (YEAR 2 or FIRST YEAR if Med ical Center no IPPE) [code = MEDICARE ANNUAL WELLNESS (YEAR 2 or FIRST YEAR if no IPPE)] Future Scheduled 1999-03-18 MEDICARE ANNUAL WELLNESS [facility] Test 00:00:00 (YEAR 2 or FIRST YEAR if Med ical Center no IPPE) [code = MEDICARE ANNUAL WELLNESS (YEAR 2 or FIRST YEAR if no IPPE)] Future Scheduled 1999-03-18 MEDICARE ANNUAL WELLNESS [facility] Test 00:00:00 (YEAR 2 or FIRST YEAR if Med ical Center no IPPE) [code = MEDICARE ANNUAL WELLNESS (YEAR 2 or FIRST YEAR if no IPPE)] Future Scheduled 1999-03-18 MEDIC[address] ANNUAL WELLNESS [facility] Test 00:00:00 (YEAR 2 or FIRST YEAR if Med ical Center no IPPE) [code = MEDICARE ANNUAL WELLNESS (YEAR 2 or FIRST YEAR if no IPPE)] Future Scheduled 1999-03-18 MEDICARE ANNUAL WELLNESS [facility] Test 00:00:00 (YEAR 2 or FIRST YEAR if Med ical Center no IPPE) [code = MEDICARE ANNUAL WELLNESS (YEAR 2 or FIRST YEAR if no IPPE)] Future Scheduled 1978 Screening for malignant [facility] Test 00:00:00 neoplasm of cervix Medical C enter (procedure) [code = 874317030] Future Scheduled 1978 Screening for malignant [facility] Test 00:00:00 neoplasm of cervix Medical C enter (procedure) [code = 169601001] Future Scheduled 1978 Screening for malignant [facility] Test 00:00:00 neoplasm of cervix Medical C enter (procedure) [code = 875024367] Future Scheduled 1978 Screening for malignant [facility] Test 00:00:00 neoplasm of cervix Medical C enter (procedure) [code = 470889844] Future Scheduled 1975 HEPATITIS C SCREENING CH [...] HEPATITIS C Medical Center SCREENING] Future Scheduled [address] [facility] 00:00:00 virus screening Medical Cent er (procedure) [code = 777537604] Future Scheduled 1957 Screening for malignant [facility] Test 00:00:00 neoplasm of breast Medical C enter (procedure) [code = 107258216] Future Scheduled 1957 CT Colonography (combo) [facility] Test 00:00:00 [code = CT Colonography [facility] (combo)] Future Scheduled 1957 Screening for malignant [facility] Test 00:00:00 neoplasm of colon Medical Ce nter (procedure) [code = 049487838] Future Scheduled 1957 Screening for malignant [facility] Test 00:00:00 neoplasm of colon Medical Ce nter (procedure) [code = 465603884] Future Scheduled 1957 DXA SCAN [code = DXA [facility] Test 00:00:00 SCAN] [facility] Future Scheduled 1957 Screening for malignant [facility] Test 00:00:00 neoplasm of colon Medical Ce nter (procedure) [code = 489956091] Future Scheduled 1957 Screening for malignant [facility] Test 00:00:00 neoplasm of colon Medical Ce nter (procedure) [code = 974932437] Future Scheduled 1957 Sigmoidoscopy [code = [facility] Sigmoidoscopy] Medical Cente r Future Scheduled 1957 Screening for malignant [facility] Test 00:00:00 neoplasm of breast Medical C enter (procedure) [code = 825612649] Future Scheduled 1957 Screening for malignant [facility] Test 00:00:00 neoplasm of colon Medical Ce nter (procedure) [code = 549648612] Future Scheduled 1957 Screening for malignant [facility] Test 00:00:00 neoplasm of breast Medical C enter (procedure) [code = 378534225] Future Scheduled 1957 Screening for malignant [facility] Test 00:00:00 neoplasm of colon Medical Ce nter (procedure) [code = 965756917] Future Scheduled 1957 Screening for malignant [facility] Test 00:00:00 neoplasm of breast Medical C enter (procedure) [code = 921244477] Future Scheduled 1957 CT Colonography (combo) [facility] Test 00:00:00 [code = CT Colonography [facility] (combo)] Future Scheduled 1957 Screening for malignant [facility] Test 00:00:00 neoplasm of colon Medical Ce nter (procedure) [code = 533268134] Future Scheduled 1957 Screening for malignant [facility] Test 00:00:00 neoplasm of colon Medical Ce nter (procedure) [code = 124864307] Future Scheduled 1957 Screening for malignant [facility] Test 00:00:00 neoplasm of colon Medical Ce nter (procedure) [code = 771398721] Future Scheduled 1957 Screening for malignant [facility] Test 00:00:00 neoplasm of colon Medical Ce nter (procedure) [code = 379828831] Future Scheduled 1957 Sigmoidoscopy [code = [facility] Sigmoidoscopy] Medical Cente r Future Scheduled 1957 Screening for malignant [facility] Test 00:00:00 neoplasm of breast Medical C enter (procedure) [code = 954406689] Future Scheduled 1957 CT Colonography (combo) [facility] Test 00:00:00 [code = CT Colonography Medi zia Center (combo)] Future Scheduled 1957 Screening for malignant [facility] Test 00:00:00 neoplasm of colon Medical Ce nter (procedure) [code = 196516787] Future Scheduled 1957 Screening for malignant [facility] Test 00:00:00 neoplasm of colon Medical Ce nter (procedure) [code = 540553457] Future Scheduled 1957 DXA SCAN [code = DXA [facility] Test 00:00:00 SCAN] [facility] Future Scheduled 1957 Screening for malignant [facility] Test 00:00:00 neoplasm of colon Medical Ce nter (procedure) [code = 971965049] Future Scheduled 1957 Screening for malignant [facility] Test 00:00:00 neoplasm of colon Medical Ce nter (procedure) [code = 113051913] Future Scheduled 1957 Sigmoidoscopy [code = [facility]] [facility] Start End Encounter Admission Attending Care Care Encounter Source Date/Time Date/Time Type Type Clinicians Facility Department ID 2021-07-18 Emergency [facility] [id number] Univers 16:13:03 ity [facility] 2021-07-16 Emergency [facility] [id number] Univers 02:15:15 ity [facility] 2023-04-26 2023-04-26 Outpatient R JOHNNY [facility] [id number] Univers 09:00:00 13:39:06 GAY [facility] 2023-04-26 2023-04-26 [facility] 1.2.840.114 [id number] Univers 09:00:00 13:39:06 Visit Gay [place] 350.1.13.10 i ty [facility] [place] [phone] [place] dical NAL 044 [facility] 2023-04-26 2023-04-26 Metal Organ Pipe Maker 2, Adc Lab [facility] 1.2.840.114 [id number] Univers 10:45:00 11:00:00 Visit Gay Crystal 350.1.13.10 ity [facility] [place] [phone] [place]ical NAL 353 [facility] 2023-04-26 2023-04-26 Office [facility] 1.2.840.114 [id number] Univers 10:00:00 10:38:53 Visit Gaynga DOWL[place] 350.1.13.10 i ty [facility] 4[place] [id number] [place] dical NAL 044 [facility] 2023-04-26 2023-04-26 Telephone [facility] [id number] Univers 00:00:00 00:00:00 Gay JOSEY 350.1.13.10 i ty of [facility] [place] [id number] [place] dical NAL 231 [facility] 2023-04-18 2023-04-18 Refill [facility] 1.2.840.114 [id number] Univers 00:00:00 00:00:00 Gay JOSEY 350.1.13.10 i ty of [place] [id number] [place] dical NAL 044 [facility] 2023-03-28 2023-03-28 Letter Faculty, UNIVERSIT 1.2.840.114 [id number] Univers 00:00:00 00:00:00 (Out) Pulmonary Y HEALTH 350.1.13.10 ity of [facility] 4[place]7.2.[place] [phone] [facility] [address] [place] 2023-03-26 2023-03-26 Patient [facility] 1.2.840.114 [id number] Univers 00:00:00 00:00:00 Outreach Kemi [place] 350.1.13.10 ity of [facility] 4.[place] [phone] [place] dical NAL 044 [facility] 2023-03-23 2023-03-23 [facility] [id number] Univers 11:30:00 12:18:33 GAY brown of [facility] 2023-03-23 2023-03-23 Office [facility] 1.2.840.114 [id number] Univers 11:30:00 12:18:33 Visit Gay [place] 350.1.13.10 i ty of [facility] 4[place] [phone] [place] dical NAL 044 [facility] 2023-03-21 2023-03-21 Telephone [facility] [id number] Univers 00:00:00 00:00:00 Gay [place] 350.1.13.10 i ty of [place] [phone] W[place] dical NAL 044 [facility] 2023-03-20 2023-03-20 Orders Doctor SERGIO 1.2.840.114 [id number] Univers 00:00:00 00:00:00 Only Unassigned, LALITA 350.1.13.10 ity of [place] [facility] 4.2.7.2.686 Darci as [phone] [address] 2023-03-15 2023-03-15 [facility] 1.2.545.462 [id number] Univers 00:00:00 00:00:00 Gay [place] 350.1.13.10 i ty of [place] [phone] W[place] dical NAL [address] [place] [address] 2023-02-23 2023-02-23 [facility] 1.2.840.114 [id number] Univers 00:00:00 00:00:00 Gay [place] 350.1.13.10 i ty of [place] [phone] W[place] dical NAL 044 [facility] 2023-01-16 2023-01-16 [facility] [id number] Univers 00:00:00 00:00:00 Gay [place] 350.1.13.10 i ty of [place] [id number] W[place] dical NAL [address] [place] [address] 2022-11-22 2022-11-22 [facility] 1.2.840.114 [id number] Univers 00:00:00 00:00:00 Gay [place] 350.1.13.10 i ty of [place] [id number] W[place] dical NAL 231 [facility] 2022-11-09 2022-11-09 Outpatient R DIDI [facility] [id number] Univers 10:45:00 10:45:00 AMADO [facility] 2022-11-03 2022-11-03 Outpatient R JESS [facility] [id number] Univers 10:20:00 10:20:00 MAUREEN britt [facility] 2022-10-30 2022-10-30 Telephone [facility] 1.2.720.825 [id number] Univers 00:00:00 00:00:00 Gay [place] 350.1.13.10 i ty of [place] [phone] W[place] dical NAL 044 [facility] 2022-10-27 2022-10-27 Telephone [facility] [id number] [id number] Univers 00:00:00 00:00:00 Gay [place] 350.1.13.10 i ty of [place] [id number] W[place] dical NAL 044 [facility] 2022-10-26 2022-10-26 Metal Organ Pipe Maker Giuliana, Faizan Lab Main [facility] 1.2.8 40.114 [id number] Univers 12:45:00 13:00:00 Visit Gay Crystal 350.1.13.10 ity of [place] [phone] W[place] dical NAL 353 [facility] 2022-10-26 2022-10-26 [facility] [id number] Univers 11:00:00 12:21:12 GAY kevin [facility] 2022-10-26 2022-10-26 Office [facility] 1.2.840.114 [id number] Univers 11:00:00 12:21:12 Visit Gay [place] 350.1.13.10 i ty of [place] [phone] Me dical NAL 044 [facility] 2022-10-26 2022-10-26 Orders Doctor SERGIO 1.2.840.114 [id number] Univers 00:00:00 00:00:00 Only Unassigned, LALITA 350.1.13.10 ity of [place] [facility] 4.2.7.2.686 Darci as [phone] [address] 2022-10-13 2022-10-13 [address] [facility] 1.2.840.114 [id number] Univers 00:00:00 00:00:00 Maureen [place] 350.1.13.10 ity of [place] [id number] [facility] 231 [facility] 2022-08-28 2022-08-[address] [facility] 1.2.840.114 [id number] Univers 00:00:00 00:00:00 Maureen [place] 350.1.13.10 ity of [place] [phone] [place] dic[address] 2022-07-01 2022-07-[address] [facility] 1.2.840.114 [id number] Univers 00:00:00 00:00:00 Maureen [place]OW[place] 350.1.13.10 ity [facility] 4.2.[place] [id number] [place] dic[address] 2022-06-30 2022-06-30 Outpatient R JAHAIRA DIAMOND [facility] [id number] Univers 11:00:00 12:00:57 JAHAIRA DIAMOND ity of [facility] 2022-06-30 2022-06-30 Office Leigha [facility] 1.2.840.114 [id number] Univers 11:00:00 12:00:57 Visit Jahaira [place] 350.1.13.10 ity of [place] [phone] [place] [address] [facility] 2022-06-13 2022-06-[address] [facility] 1.2.840.114 [id number] Univers 00:00:00 00:00:00 Maureen [place] 350.1.13.10 ity of [facility] 4.[place] [id number] [address] 2022-05-01 2022-05-01 Outpatient R [facility] [id number] Univers 10:20:00 13:39:46 MAUREEN ity of [facility] 2022-05-01 2022-05-[address] [facility] 1.2.840.114 [id number] Univers 10:20:00 13:39:46 ne Visit Maureen [place] 350.1.13.10 ity of [place] [phone] [address] 2022-05-01 2022-05-01 Outpatient R [facility] [id number] Univers 10:20:00 10:20:00 MAUREEN ity of [facility] 2022-04-14 2022-04-14 Orders Doctor SERGIO 1.2.840.114 [id number] Univers 00:00:00 00:00:00 Only Unassigned, LALITA 350.1.13.10 ity of [place] [facility] 4.2.7.2.686 Darci as [phone] [address] 2022-03-23 2022-03-23 Orders Doctor SERGIO 1.2.840.114 [id number] Univers 00:00:00 00:00:00 Only Unassigned, LALITA 350.1.13.10 ity of [place] [facility] 4.2.7.2.686 Darci as [phone] [address] 2022-02-27 2022-02-[address] [facility] 1.2.840.114 [id number] Univers 00:00:00 00:00:00 Maureen [place] 350.1.13.10 ity of [place] [phone] W[place] dical [facility] 231 [facility] 2022-02-24 2022-02-24 Orders Doctor SERGIO 1.2.840.114 [id number] Univers 00:00:00 00:00:00 Only Unassigned, LALITA 350.1.13.10 ity of [place] [facility] 4.2.7.2.686 Darci as [phone] [address] 2022-02-16 2022-02-16 Outpatient R PUJA FOLEY [facility] [id number] Univers 12:00:00 12:00:00 PUJA FOLEY i ty [facility] 2022-02-02 2022-02-02 Outpatient R PUJA FOLEY [facility] [id number] Univers 09:30:00 09:30:00 PUJA FOLEY i ty [facility] 2022-02-01 2022-02-01 Outpatient R RUSS [facility] [id number] Univers 13:30:00 13:30:00 JOYCE ity of [facility] 2022-01-23 2022-01-[address] [facility] 1.2.840.114 [id number] Univers 00:00:00 00:00:00 Maureen [place] 350.1.13.10 ity of [place] [id number] [facility] 044 [facility] 2022-01-13 2022-01-[address] [facility] 1.2.840.114 [id number] Univers 00:00:00 00:00:00 Maureen A [place] 350.1.13.10 ity [facility] 4.2.[place].2.[place] [id number] [place] dical [facility] 231 [facility] 2022-01-12 2022-01-[address] [facility] 1.2.840.114 [id number] Univers 00:00:00 00:00:00 Maureen A [place] 350.1.13.10 ity of [facility] 4.2.[place] [phone] [facility] [facility] 231 [facility] 2022-01-10 2022-01-10 [facility] 1.2.840.114 [id number] Univers 00:00:00 00:00:00 Maureen Festus LIANGT[place] 350.1.13.10 ity of [place] [id number] [facility] 231 [facility] 2022-01-09 2022-01-[address] [facility] 1.2.840.114 [id number] Univers 00:00:00 00:00:00 Maureenswetha DOW[place] 350.1.13.10 ity of [id number] [id number] [facility] [address] [facility] 2022-01-03 2022-01-03 Outpatient [facility] [id number] [employer] 10:00:00 10:00:00 JOYCE ity of [facility] 2022-01-02 2022-01-[address] [facility] [id number] Univers 00:00:00 00:00:00 Maureen Festus [place]AN[place] [id number] [id number] [id number] [facility] [address] [facility] 2021-12-30 2021-12-30 [facility] [id number] [employer] 00:00:00 00:00:00 Maureen Festus [place] [id number] [id number] [id number] [facility] 231 [facility] 2021-12-26 2021-12-26 Orders Doctor SERGIO 1.2.840.114 [id number] Univers 00:00:00 00:00:00 Only Unassigned, LALITA 350.1.13.10 ity of [place] [facility] 4.2.7.2.686 Darci as [phone] [address] 2021-12-16 2021-12-16 Outpatient R PUJA FOLEY [facility] 10 [id number] Univers 11:30:00 11:30:00 PUJA FOLEY i ty [facility] 2021-12-01 2021-12-01 [facility] [id number] Univers 15:00:00 15:00:00 MAUREEN betzybritt [facility] 2021-12-01 2021-12-01 Outpatient [facility] [id number] Univers 11:20:00 14:15:43 MAUREEN itbirtt [facility] 2021-12-01 2021-12-[address] [facility] 1.2.840.114 [id number] Univers 11:20:00 14:15:43 ne Visit Maureen DOWLING 350.1.13.10 ity of [place] [phone] [address] 2021-11-15 2021-11-[address] [facility] 1.2.840.114 [id number] Univers 00:00:00 00:00:00 Maureen DOWLING 350.1.13.10 ity of [place] [phone] [address] 2021-09-19 2021-09-19 Outpatient R [facility] [id number] Univers 00:00:00 00:00:00 ity of [facility] 2021-09-19 2021-09-19 Orders Doctor HILL 1.2.840.114 [id number] Univers 00:00:00 00:00:00 Only Unassigned, LALITA 350.1.13.10 ity of [place] [facility] 4.2.7.2.686 Darci as [phone] [address] 2021-09-07 2021-09-15 Inpatient UR ESTER [facility] Cardiology 3 [id number] [facility] 21:52:00 13:08:00 NEREIDA 2021-09-07 2021-09-15 Hospital Sarai Mac [facility] [id number] 21:52:00 13:08:[address] [facility] Nereida Norman 2021-09-12 2021-09-12 Orders [facility] [id number] 00:00:00 00:00:00 Only [facility] 2021-08-23 2021-08-24 Emergency [facility] 1.2.840.114 [id number] Univers 18:18:00 02:43:00 Uyen [place] 350.1.13.10 i ty of [place] [phone] [facility] [address] [place] 2021-08-24 2021-08-24 Letter SERGIO Antonio 1.2.840.114 [id number] Univers 00:00:00 00:00:00 (Out) Savanah RAND 350.1.13.10 it y of [facility] 4.2.7.2.686 Darci as [phone] [facility] [address] 2021-08-23 2021-08-23 [facility] 1.2.840.114 [id number] Univers 17:08:18 17:53:20 Care [facility] 350.1.13.10 it y of [place] 4.2.7.2.686 Darci as JOSUE?BLEA [phone] [place] [address] MEDICAL OFFICE BUILDING 2021-08-23 2021-08-23 Outpatient [place] CORTEZ [facility] [id number] Univers 17:00:00 17:53:20 KYLEE ity [facility] 2021-08-23 2021-08-23 Outpatient R [facility] ERT [id number] Univers 17:00:00 17:53:20 KYLEE ity [facility] 2021-08-23 2021-08-23 Outpatient [place] [facility] [id number] Univers 17:00:00 17:00:00 KYLEE [facility] 2021-08-23 2021-08-[address] [facility] 1.2.840.114 [id number] Univers 00:00:00 00:00:00 Maureen LIANGTON 350.1.13.10 ity [facility] 4.2.7.2.[place] [phone] [address] 2021-08-02 2021-08-02 [facility] [id number] Univers 10:20:00 13:19:18 MAUREEN ity of [facility] 2021-08-02 2021-08-02 [address] [facility] 1.2.840.114 [id number] Univers 08:30:30 13:19:18 ne Visit Maureen DOWLING 350.1.13.10 ity of [place] [phone] [address] 2021-07-08 2021-07-08 Refill [facility], [facility] 1.2.840.114 [id number] Univers 00:00:00 00:00:00 Maureen [place] 350.1.13.10 ity of [place] [phone] [facility] 231 [facility] 2021-06-30 2021-06-30 Office [facility] 1.2.840.114 [id number] Univers 11:26:48 12:14:06 Visit Puja Dowling 350.1.13.10 i ty of [place].2.7.2.[place] [phone] [facility] [address] [place] [address] 2021-06-30 2021-06-30 Outpatient R PUJA FOLEY [facility] 10 [id number] Univers 11:30:00 11:30:00 PUJA FOLEY i ty of [facility] 2021-06-24 2021-06-24 Outpatient R PUJA FOLEY [facility] 10 [id number] Univers 13:20:00 13:20:00 PUJA FOLEY i ty of [facility] 2021-06-17 2021-06-17 Outpatient R GLADYS [facility] [id number] Univers 15:20:00 15:20:00 JESSICA britt [facility] 2021-05-26 2021-05-26 Outpatient R MERCADO, [facility] [id number] Univers 14:00:00 14:00:00 MAUREEN brown [facility] 2021-05-20 2021-05-20 Outpatient [place] [facility] [id number] Univers 13:40:00 13:40:00 MAUREEN [facility] 2021-05-18 2021-05-18 [facility] 1.2.840.114 [id number] Univers 00:00:00 00:00:00 Payton Driscoll 350.1.13.10 it y of [place] 4.2.7.2.686 Darci as Josue?Blea [phone] [place] kathya landaverde[address] Medical Office Building 2021-05-03 2021-05-06 [facility] Aneudy Gleason [facility] 1.2.8 40.114 [id number] Univers 15:35:00 18:48:00 Encounter Reji Escobar 350.1.13.10 ity [facility] 4.2.7.2.686 [place] [phone] [address] 2021-05-06 2021-05-06 Outpatient R JESS [facility] [id number] Univers 10:40:00 10:40:00 MAUREEN brown [facility] 2021-05-03 2021-05-03 Telephone [facility] 1.2.840.114 [id number] Univers 00:00:00 00:00:00 Maureen Dowling 350.1.13.10 ity [facility] [place]2.7.2.686 [place] [facility] [phone] [place] kathya baron [address] [place] [address] 2021-04-28 2021-04-28 Office Mercado, [facility] 1.2.840.114 [id number] 09:07:52 14:36:33 Visit Maureen Dowling 350.1.13.10 [place] 4.2.7.2.686 Professio [phone] [address] 2021-04-28 2021-04-28 Office [facility] 1.2.840.114 [id number] Univers 09:07:52 14:36:33 Visit Maureen Mortensen [place] 350.1.13.10 ity of [place].2.[place] [phone] [address] 2021-04-28 2021-04-28 [facility] [id number] Univers 09:20:00 09:20:00 MAUREEN brown [facility] 2021-04-28 2021-04-28 Orders Doctor HILL 1.2.840.114 [id number] Univers 00:00:00 00:00:00 Only Unassigned, LALITA 350.1.13.10 ity of [place] [facility] 4.2.7.2.686 Darci as [phone] [facility] [address] [place] 2021-04-17 2021-04-17 Refill [facility] 1.2.840.114 [id number] Univers 00:00:00 00:00:00 Maureen Mortensen [place] 350.1.13.10 ity of [place].7.2.[place] [phone] [address] 2021-01-11 2021-01-11 [facility] 1.2.840.114 [id number] Univers 11:59:43 23:59:00 Encounter Joyce Dowling 350.1.13.10 ity of [place] 4.2.7.2.686 [place] [phone] [facility] [address] [place] 2021-01-11 2021-01-11 Outpatient R [facility] [id number] Univers 00:00:00 00:00:00 JOYCE brown [facility] 2020-12-28 2020-12-28 Office [facility] 1.2.840.114 [id number] Univers 15:25:38 16:39:23 Visit Joyce Sincere Josey 350.1.13.10 ity of [place].2.7.2.686 [place] [phone] [place] dical nal 134 [facility] 2020-12-28 2020-12-28 Outpatient R RUSS [facility] [id number] Univers 15:30:00 15:30:00 JOYCE ity of [facility] 2020-12-23 2020-12-23 Office [facility] 1.2.840.114 [id number] Univers 13:22:15 14:09:20 Visit Puja Dowling 350.1.13.10 i ty of [place]2.7.2.[place] [phone] [place] dical nal 085 [facility] 2020-12-23 2020-12-23 Outpatient R PUJA FOLEY [facility] 10 [id number] Univers 13:30:00 13:30:00 PUJA FOLEY i ty of [facility] 2020-12-21 2020-12-21 [facility] 1.2.653.895 [id number] Univers 13:21:45 23:59:00 Encounter Melaniezoila [place] 350.1.13.10 ity of [place] 4.2.7.2.686 [facility] [phone] [facility] [address] [place] 2020-12-21 2020-12-21 [facility] 1.2.892.555 [id number] Univers 13:00:00 13:20:00 Encounter Melanie Dowling 350.1.13.10 ity of [place] 4.2.7.2.686 [facility] [phone] [facility] [address] [place] 2020-12-21 2020-12-21 Outpatient R [facility] [id number] Univers 00:00:00 00:00:00 MELANIE brown o f [facility] 2020-12-21 2020-12-21 [facility] 1.2.840.114 [id number] Univers 00:00:00 00:00:[address] [facility] 350.1.13.10 i ty of [place] 4.2.7.2.686 [place]arci [place] Professio [phone] [address] One 2020-12-20 2020-12-[address] [facility] 1.2.840.114 [id number] Univers 00:00:00 00:00:00 Maureen [place] 350.1.13.10 ity of [place].7.2.[place] [phone] [address] 2020-12-09 2020-12-09 Outpatient R PUJA FOLEY [facility] 10 [id number] Univers 14:00:00 14:00:00 PUJA FOLEY i ty of [facility] 2020-12-09 2020-12-09 Refill [facility] 1.2.840.114 [id number] Univers 00:00:00 00:00:00 Maureen Festus Josey 350.1.13.10 ity of [place].7.2.[place] [phone] [address] 2020-12-09 2020-12-09 Orders Doctor SERGIO 1.2.840.114 [id number] Univers 00:00:00 00:00:00 Only Unassigned, LALITA 350.1.13.10 ity of [place] [facility] 4.2.7.2.686 Darci as [phone] [address] 2020-11-30 2020-11-30 Outpatient R LINDA [facility] [id number] Univers 11:10:00 11:10:00 YARELY ity of [facility] 2020-11-24 2020-11-24 Orders Doctor HILL 1.2.840.114 [id number] Univers 00:00:00 00:00:00 Only Unassigned, LALITA 350.1.13.10 ity of [place] [facility] 4.2.7.2.686 Darci as [phone] [address] 2020-11-19 2020-11-19 [address]ado[facility] [facility] 1.2.840.114 [id number] Univers 00:00:00 00:00:00 Maureen Dowling 350.1.13.10 ity of [place].2.[place] [phone] [place] dical nal 231 [facility] 2020-11-18 2020-11-18 Metal Organ Pipe Maker 2, Adc Lab [facility] 1.2.840.114 [id number] Univers 14:52:26 15:07:26 Visit Melanie Palmer 350.1.13.10 ity of [place].2.7.2.686 [place] [phone] [place] dical [facility] 2020-11-18 2020-11-18 Office Estela, [facility] 1.2.840.114 [id number] Univers 13:56:16 14:49:22 Visit Melanie [place]ling 350.1.13.10 ity of [place] 4.2.7.2.[place] [phone] [place] dical nal 044 [facility] 2020-11-18 2020-11-18 [facility] [id number] Univers 14:00:00 14:00:00 MELANIE mayen dana [facility] 2020-11-18 2020-11-18 Outpatient R JESS [facility] [id number] Univers 10:40:00 10:40:00 MAUREEN brown [facility] 2020-11-15 2020-11-15 Outpatient R ESTELA [facility] [id number] Univers 13:00:00 13:00:00 MELANIE mayen dana [facility] 2020-11-10 2020-11-10 Telephone [facility] 1..840.114 [id number] Univers 00:00:00 00:00:00 Maureen Dowling 350.1.13.10 ity of [place]2.7.2.[place] [phone] [place] dical nal [address] [facility] 2020-11-09 2020-11-09 Outpatient R LINDA [facility] [id number] Univers 11:10:00 11:10:00 YARELY ity of [facility] 2020-11-04 2020-11-04 Outpatient R PUJA FOLEY [facility] 10 [id number] Univers 11:20:00 11:20:00 PUJA FOLEY i ty of [facility] 2020-10-24 2020-10-24 Orders Doctor SERGIO 1.2.840.114 [id number] Univers 00:00:00 00:00:00 Only Unassigned, LALITA 350.1.13.10 ity of [place] [facility] 4.2.7.2.686 Darci as [phone] [address] 2020-10-13 2020-10-13 Urgent Provider, [facility] 1.2.840.114 [id number] Univers 13:49:15 14:09:15 Care Maureen Mercado 350.1.1 3.10 ity of [place] 4.2.7.2.686 [place]arci as Professio [phone] [address] Office Building One 2020-10-13 2020-10-13 Outpatient R [facility] [id number] Univers 14:00:00 14:00:00 ity of [facility] 2020-10-13 2020-10-13 Letter Doctor SERGIO 1.2.840.114 [id number] Univers 00:00:00 00:00:00 (Out) Unassigned, LALITA 350.1.13.10 ity of [place] [facility] 4.2.7.2.686 Darci as [phone] [facility] [address] [place] 2020-10-13 2020-10-13 Letter Doctor SERGIO 1.2.840.114 [id number] Univers 00:00:00 00:00:00 (Out) Unassigned, LALITA 350.1.13.10 ity of [place] [facility] 4.2.7.2.686 Darci as [phone] [facility] [address] [place] 2020-10-04 2020-10-04 Telephone Jess [facility] 1.2.840.114 [id number] Univers 00:00:00 00:00:00 Maureen Dowling 350.1.13.10 ity of [place].2.[place] [phone] [address] 2020-09-23 2020-09-23 [facility], [facility] 12.840.114 [id number] Univers 00:00:00 00:00:00 Maureen A [place] 350.1.13.10 ity of [place] 4.2.7.2.686 [place] [phone] [address] 2020-09-23 2020-09-23 [place] Mercado[address]2.840.114 8 [id number] Univers 00:00:00 00:00:00 Maureen A [place] 350.1.13.10 ity of [place] 4.2.7.2.686 [place] [phone] [address] 2020-09-21 2020-09-21 [facility] 12.840.114 [id number] Univers 00:00:00 00:00:00 Maureen A [place] 350.1.13.10 ity of [place] 4.2.7.2.686 [place] [phone] [address] 2020-09-16 2020-09-16 [facility] [id number] Univers 00:00:00 00:00:00 MAUREEN ity of [facility] 2020-09-11 2020-09-11 [place] Mercado[address].840.114 8 [id number] Univers 00:00:00 00:00:00 Maureen A [place] 350.1.13.10 ity of [place] 4.2.7.2.686 [place] [phone] [address] 2020-09-01 2020-09-01 [place] [facility], [facility] 12.840.114 8 [id number] Univers 00:00:00 00:00:00 Maureen A [place] 350.1.13.10 ity of [place] 4.2.7.2.686 [place] [phone] [place] dical nal 044 [facility] 2020-08-25 2020-08-25 Orders Doctor SERGIO 1.2.840.114 [id number] Univers 00:00:00 00:00:00 Only Unassigned, LALITA 350.1.13.10 ity of [place] [facility] 4.2.7.2.686 Darci as [phone] [facility] [address] [place] 2020-08-19 2020-08-19 Metal 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 13.10 ity of [place] 4.2.7.2.686 [place] [phone] [place] [facility] 2020-08-19 2020-08-19 Office Mercado, [facility] 1.2.840.114 [id number] Univers 10:26:09 12:11:50 Visit Maureen Dowling 350.1.13.10 ity of [place] 4.2.7.2.686 [place] [phone] [facility] 231 [facility] 2020-08-19 2020-08-19 Outpatient R JESS [facility] [id number] Univers 10:20:00 10:20:00 MAUREEN brown of [facility] 2020 2020 Letter Samantha Barragan 1.2.873.569 [id number] Univers 00:00:00 00:00:00 (Out) Froilan Rand 350.1.13.10 it y of Hospital 4.2.7.2.686 Darci as [phone] [facility] [address] [place] 2020-07-28 2020-07-28 Telephone [facility] 1.2.840.114 [id number] Univers 00:00:00 00:00:00 Maureen Dowling 350.1.13.10 ity of [place] 4.[place].7.2.[place] [phone] [place] [facility] 2020-07-28 2020-07-28 Transition Berta Briggs 1.2.840.114 [id number] Univers 00:00:00 00:00:00 of Care Debby Keeney 350.1.13.10 i ty of [place] 4.2.7.2.686 [place] [phone] [facility] [address] [place] 2020-07-17 2020-07-27 [facility] Christina Lowe 1.2.84 0.114 [id number] Univers 14:03:00 18:45:00 Encounter Alex Mccarty 350.1.13.10 ity of [facility] 4.2.7.2.686 [place] [phone] [place] [address] 2020-06-22 2020-06-[address] [facility] 1.2.840.114 [id number] Univers 00:00:00 00:00:00 Maureen A [place] 350.1.13.10 ity of [place] 4.2.7.2.[place] [phone] [address] 2020-06-10 2020-06-[address] [facility] 1.2.840.114 [id number] Univers 00:00:00 00:00:00 Maureen A [place] 350.1.13.10 ity of [place] 4.2.7.2.686 [place] [phone] [facility] 044 [facility] 2020-05-21 2020-05-[address] [facility] 1.2.840.114 [id number] Univers 00:00:00 00:00:00 Maureen A [place] 350.1.13.10 ity of [place] 4.2.7.2.686 [place] [phone] [address] 2020-05-11 2020-05-[address] [facility] 1.2.840.114 [id number] Univers 00:00:00 00:00:00 Maureen A [place] 350.1.13.10 ity of [place] 4.2.7.2.686 [place] [phone] [place] dical nal 044 [facility] 2020-05-06 2020-05-06 Outpatient R JUAN FRANCISCO [facility] [id number] Univers 12:30:00 12:30:00 MACHO brown [facility] 2020-05-06 2020-05-06 Orders Doctor SERGIO 1.2.840.114 [id number] Univers 00:00:00 00:00:00 Only Unassigned, LALITA 350.1.13.10 [facility] 4.2.7.2.686 Darci as [phone] [facility] [address] [place] 2020-05-03 2020-05-03 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 114 [id number] Univers 11:20:15 11:35:15 Visit Macho Porter Adam Dowling 350.1.13. 10 ity of [place] 4.2.7.2.686 [place] [phone] [facility] [address] [place] 2020-05-03 2020-05-03 Outpatient R [facility] [id number] Univers 11:15:00 11:15:00 MACHO brown [facility] 2020-04-29 2020-04-29 Office Sarah [facility] 1.2.840.114 [id number] Univers 15:25:10 16:10:56 Visit Puja Dowling 350.1.13.10 i ty of [place] 4.2.7.2.686 [place] [phone] [place] dical nal 085 [facility] 2020-04-29 2020-04-29 Outpatient R PUJA FOLEY [facility] 10 [id number] Univers 15:20:00 15:20:00 PUJA FOLEY i ty of [facility] 2020-04-28 2020-04-[address] [facility] 1.2.840.114 [id number] Univers 00:00:00 00:00:00 Maureen Dowling 350.1.13.10 ity of [place] 4[place]2.7.2.[place] [phone] [place] dical nal [address] [facility] 2020-04-26 2020-04-[address] [facility] [facility] 1.2.840.114 [id number] Univers 00:00:00 00:00:00 Maureen Dowling 350.1.13.10 ity of [place] 4.2.7.2.[place] [phone] [place] [facility] 2020-04-22 2020-04-[address] [facility] [facility] 1.2.840.114 [id number] Univers 00:00:00 00:00:[address] [facility] 350.1.13.10 ity of [place] 4.2.7.2.686 Darci as Professio [phone] [facility] [address] Office Building One 2020-04-12 2020-04-[address] [facility] 1.2.840.114 [id number] Univers 14:42:43 15:55:04 Visit Maureen Dowling 350.1.13.10 ity of [place] 4.2.7.2.686 [place] [phone] [place] [facility] [address] [facility] 2020-04-12 2020-04-12 Outpatient R MERCAD[facility] [id number] Univers 14:40:00 14:40:00 MAUREEN brown of [facility] 2020-04-12 2020-04-12 Orders Doctor SERGIO 1.2.840.114 [id number] Univers 00:00:00 00:00:00 Only Unassigned, LALITA 350.1.13.10 ity of [place] [facility] 4.2.7.2.686 Darci as [phone] [facility] [address] [place] 2020-04-12 2020-04-12 Letter Doctor SERGIO 1.2.840.114 [id number] Univers 00:00:00 00:00:00 (Out) Unassigned, LALITA 350.1.13.10 ity of [place] [facility] 4.2.7.2.686 Darci as [phone] [facility] [address] [place] 2020-04-09 2020-04-[address] [facility] 1.2.840.114 [id number] Univers 00:00:00 00:00:00 Maureen [place] 350.1.13.10 ity of [place].2.[place] [phone] [facility] [address] [facility] 2020-04-06 2020-04-[address] [facility] 1.2.840.114 [id number] Univers 00:00:00 00:00:00 Maureen A [place] 350.1.13.10 ity of [place] 4.2.7.2.[place] [phone] [facility] 0[address] [facility] 2020-03-08 2020-03-08 [facility]patient [facility] [id number] Univers 15:40:00 15:40:00 MAUREEN ity [facility] 2020-02-26 2020-02-26 Outpatient [facility] [id number] Univers 10:00:00 10:00:00 MAUREEN ity [facility] 2020-01-30 2020-01-30 [facility] 1.2.840.114 [id number] Univers 00:00:00 00:00:00 Maureen [place] 350.1.13.10 ity of [place].2.[place] [phone] [address] 2020-01-12 2020-01-12 Outpatient [facility] [id number] Univers 09:40:00 09:40:00 MAUREEN ity [facility] 2020-01-09 2020-01-09 [facility] .2.840.114 [id number] Univers 00:00:00 00:00:00 Maureen [place] 350.1.13.10 ity of [id number] [phone] [address] 2019-12-23 2019-12-23 Outpatient [facility] [id number] Univers 10:20:00 10:20:00 MAUREEN ity [facility] 2019-12-23 2019-12-23 [facility] 1.2.840.114 [id number] Univers 00:00:00 00:00:00 Maureen [place] [id number] [facility] [id number] [phone] [facility] [address] [facility] 2019-12-01 2019-12-01 Office René [facility] 1.2.840.114 [id number] Univers 13:34:40 14:14:40 Visit Tio Dowling [id number] [facility] [place] [id number] [phone] [facility] [address] [facility] 2019-12-01 2019-12-01 Outpatient R TIO JADE [facility] [id number] Univers 13:40:00 13:40:00 TIO JADE ity [facility] 2019-11-17 2019-11-17 [facility] 1.2.840.114 [id number] Univers 00:00:00 00:00:00 Maureen A Josey [id number] [place] [id number] [phone] [address] 2019-11-03 2019-11-03 [place] 1.2.840.114 [id number] Univers 00:00:00 00:00:00 Maureen Dowling [id number] [facility] [id number] [phone] [facility] [address] [facility] 2019-11-03 2019-11-03 [place] [facility] 1.2.840.114 [id number] Univers 00:00:00 00:00:00 Maureen [place] [id number] [facility] [id number] [phone] [facility] [address] [facility] [place] 2019-10-24 2019-10-24 Telephone [place], [facility] 1.2.840.114 [id number] Univers 00:00:00 00:00:00 Maureen Dowling [id number] [place] [id number] [phone] [facility] [facility] [address] 2019-10-24 2019-10-24 Orders Doctor SERGIO 1.2.840.114 [id number] Univers 00:00:00 00:00:00 Only Unassigned, LALITA 350.1.13.10 ity of [place] 4.2.7.2.686 Darci as [phone] [address] 2019-10-14 2019-10-14 Metal 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 13.10 ity of [place] [phone] [facility] [address] 2019-10-14 2019-10-14 Office Jess [facility] 1.2.840.114 [id number] Univers 12:53:29 14:25:39 Visit Maureen Dowling 350.1.13.10 ity of [place] [phone] [facility] [address] 2019-10-14 2019-10-14 Orders Doctor SERGIO 1.2.840.114 [id number] Univers 00:00:00 00:00:00 Only Unassigned, LALITA 350.1.13.10 ity of [place] [facility] 4.2.7.2.686 Darci as [phone] [address] 2019-08-17 2019-08-21 Inpatient X ANYI [facility] [id number] Univers 16:40:37 18:12:00 ity of [facility] 2019-05-01 2019-05-01 Telephone Berta Mercado 1.2.840.114 [id number] Univers 00:00:00 00:00:00 Maureen Parsons 350.1.13.10 ity [phone] [address] 2019-05-01 2019-05-01 [facility] Mercado, [facility] 1.2.840.114 [id number] Univers 00:00:00 00:00:00 Maureen A Banner 350.1.13.10 ity of [place] [phone] [address] 2019-04-11 2019-04-11 [place] [facility] 1.2.840.114 [id number] Univers 00:00:00 00:00:00 Maureen A Banner 350.1.13.10 ity of [place] [phone] [address] 2019-04-10 2019-04-10 [place] [facility] 1.2.840.114 [id number] Univers 00:00:00 00:00:00 Maureen A Banner 350.1.13.10 ity of [place] [phone] [address] 2019-04-10 2019-04-10 [facility] 1.2.840.114 [id number] Univers 00:00:00 00:00:00 Maureen A Banner 350.1.13.10 ity of [place] [phone] [address] Results Test Description Test Time Test Comments Results Result Comments Source SARS-CoV2/RT-PCR (Asymptomatic ONLY) 2021-09-15 16:14:42 Test Item Value Reference Range Interpretation Comme nts SARS-COV2/RT-PCR (test code = Negative Negative 74601-7) JUANIS (test code = JUANIS) Negative result [...] Hernandez SARS-CoV-2 assay. Fact Sheet for Healthcare Providers:https://www.Koubei.com.abb kareem/schuyler/RT SARS-CoV-2 HCP Fact Sheet 51-896608.pdf Fact Sheet for Healthcare Patients:https://www.Koubei.com.abbo tt/schuyler/RT SARS-CoV-2 Patient Fact Sheet EN 51-785893O6.pdf Lab Interpretation (test code = Normal 03279-2) [facility]2021-09-15 16:14:42 Test Item Value Reference Range Interpretation Comments SARS-COV2/RT-PCR (test Negative Negative code = 62859-9) JUANIS (test code = JUANIS) Negative result [...] Healthcare Providers:https://www.toney ray/schuyler/RT SARS-CoV-2 HCP Fact Sheet 51-238839.pdf Fact Sheet for Healthcare Patients:https://www.juan santizo/schuyler/RT SARS-CoV-2 Patient Fact Sheet EN 51-257245Q7.pdf Lab Interpretation Normal (test code = 17897-8) [facility]2021-09-15 16:14:42 Test Item Value Reference Range Interpretation Comments SARS-COV2/RT-PCR (test Negative Negative code = 17101-1) JUANIS (test code = JUANIS) Negative result [...] Healthcare Providers:https://www.toney ray/schuyler/RT SARS-CoV-2 HCP Fact Sheet 51-488232.pdf Fact Sheet for Healthcare Patients:https://www.juan santizo/schuyler/RT SARS-CoV-2 Patient Fact Sheet EN 51-674676C8.pdf Lab Interpretation Normal (test code = 87408-4) [facility])2021-09-15 16:14:42 Test Item Value Reference Range Interpretation Comments SARS-COV2/RT-PCR (test code = Negative Negative 1306727) Negative result for this test determines that [...] 564(g) of the Act.Testing was performed using [employer] SARS-CoV-2 assay.Fact Sheet for Healthcare Providers:https://www.Koubei.com.LineMetrics/schuyler/RT SARS-CoV-2 HCP Fact Sheet 51- 531489.pdfFact Sheet for Healthcare Patients:https://www.Koubei.com.LineMetrics/schuyler/RT SARS-CoV-2 Patient Fact Sheet EN 51-582509F6.pdfSARS-COV2/RT-PCR ([facility])2021-09-15 11:07:01 Test Item Value Reference Range Interpretation Comments SARS-COV2/RT-PCR (test code = Negative Negative 8438620) Negative result for this test determines that [...] 564(g) of the Act.Testing was performed using [employer] SARS-CoV-2 assay.Fact Sheet for Healthcare Providers:https://www.Koubei.com.LineMetrics/schuyler/RT SARS-CoV-2 HCP Fact Sheet 51- 704115.pdfFact Sheet for Healthcare Patients:https://www.Koubei.com.LineMetrics/schuyler/RT SARS-CoV-2 Patient Fact Sheet EN 51-994392G2.pdfCBC with platelet count + automated [id number] 06:22:16 Test Item Value Reference Range Interpretation Comments WBC (test code = 6690-2) 13.2 See_Comment H [A utomated message] The system [employer] generated this result transmitted ref erence range: 3.5 - 10 .5 K/L. The refe rence range was not u sed to interpret this result as normal/abnor mal. RBC (test code = 789-8) 3.59 See_Comment L [Au tomated message] The system [employer] generated this result transmitted ref erence range: 3.93 - 5 .22 M/L. The refe rence range was not u sed to interpret this result as normal/abnor mal. MCHC (test code = 786-4) 33.0 See_Comment L [A utomated message] The system [employer] generated this result transmitted ref erence range: [...] See_Comment [Aut omated message] 777-3) The system [employer] generated this result transmitted ref erence range: 150 - 45 0 K/CU MM. The referen ce range was not u sed to interpret this result as normal/abnor mal. MPV (test code = 9.8 fL 9.4-12.3 14621-3) nRBC (test code = 413) 0 See_Comment [Aut omated message] The system [employer] generated this result transmitted ref erence range: [...] H [Aut omated message] 670) The system [employer] generated this result transmitted ref erence range: 1.56 - 6 .13 K/L. The refe rence range was not u sed to interpret this result as normal/abnor mal. # Lymphs (test code = 3.72 See_Comment [Auto mated message] 414) The system [employer] generated this result transmitted ref erence range: 1.18 - 3 .74 K/L. The refe rence range was not u sed to interpret this result as normal/abnor mal. # Monos (test code = 1.11 See_Comment H [Autom ated message] 415) The system [employer] generated this result transmitted ref erence range: 0.24 - 0 .36 K/L. The refe rence range was not u sed to interpret this result as normal/abnor mal. # Eos (test code = 416) 0.33 See_Comment [Au tomated message] The system [employer] generated this result transmitted ref erence range: 0.04 - 0 .36 K/L. The refe rence range was not u sed to interpret this result as normal/abnor mal. # Baso (test code = 417) 0.04 See_Comment [A utomated message] The system [employer] generated this result transmitted ref erence range: 0.01 - 0 .08 K/L. The refe rence range was not u sed to interpret this result as normal/abnor mal. Immature 1 % 0-1 Granulocytes-Relative (test code = 2801) Lab Interpretation (test Abnormal code = 86090-3) [facility] with platelet count + automated [id number] 06:22:16 Test Item Value Reference Range Interpretation Comments WBC (test code = 6690-2) 13.2 See_Comment H [A utomated message] The system [employer] generated this result transmitted ref erence range: 3.5 - 10 .5 K/L. The refe rence range was not u sed to interpret this result as normal/abnor mal. RBC (test code = 789-8) 3.59 See_Comment L [Au tomated message] The system [employer] generated this result transmitted ref erence range: 3.93 - 5 .22 M/L. The refe rence range was not u sed to interpret this result as normal/abnor mal. MCHC (test code = 786-4) 33.0 See_Comment L [A utomated message] The system [employer] generated this result transmitted ref erence range: [...] See_Comment [Aut omated message] 777-3) The system [employer] generated this result transmitted ref erence range: 150 - 45 0 K/CU MM. The referen ce range was not u sed to interpret this result as normal/abnor mal. MPV (test code = 9.8 fL 9.4-12.3 12584-5) nRBC (test code = 413) 0 See_Comment [Aut omated message] The system [employer] generated this result transmitted ref erence range: [...] H [Aut omated message] 670) The system [employer] generated this result transmitted ref erence range: 1.56 - 6 .13 K/L. The refe rence range was not u sed to interpret this result as normal/abnor mal. # Lymphs (test code = 3.72 See_Comment [Auto mated message] 414) The system [employer] generated this result transmitted ref erence range: 1.18 - 3 .74 K/L. The refe rence range was not u sed to interpret this result as normal/abnor mal. # Monos (test code = 1.11 See_Comment H [Autom ated message] 415) The system [employer] generated this result transmitted ref erence range: 0.24 - 0 .36 K/L. The refe rence range was not u sed to interpret this result as normal/abnor mal. # Eos (test code = 416) 0.33 See_Comment [Au tomated message] The system [employer] generated this result transmitted ref erence range: 0.04 - 0 .36 K/L. The refe rence range was not u sed to interpret this result as normal/abnor mal. # Baso (test code = 417) 0.04 See_Comment [A utomated message] The system [employer] generated this result transmitted ref erence range: 0.01 - 0 .08 K/L. The refe rence range was not u sed to interpret this result as normal/abnor mal. Immature 1 % 0-1 Granulocytes-Relative (test code = 2801) Lab Interpretation (test Abnormal code = 12911-4) [facility] with platelet count + automated [id number] 06:22:16 Test Item Value Reference Range Interpretation Comments WBC (test code = 6690-2) 13.2 See_Comment H [A utomated message] The system [employer] generated this result transmitted ref erence range: 3.5 - 10 .5 K/L. The refe rence range was not u sed to interpret this result as normal/abnor mal. RBC (test code = 789-8) 3.59 See_Comment L [Au tomated message] The system [employer] generated this result transmitted ref erence range: 3.93 - 5 .22 M/L. The refe rence range was not u sed to interpret this result as normal/abnor mal. MCHC (test code = 786-4) 33.0 See_Comment L [A utomated message] The system [employer] generated this result transmitted ref erence range: [...] See_Comment [Aut omated message] 777-3) The system [employer] generated this result transmitted ref erence range: 150 - 45 0 K/CU MM. The referen ce range was not u sed to interpret this result as normal/abnor mal. MPV (test code = 9.8 fL 9.4-12.3 11071-1) nRBC (test code = 413) 0 See_Comment [Aut omated message] The system [employer] generated this result transmitted ref erence range: [...] H [Aut omated message] 670) The system [employer] generated this result transmitted ref erence range: 1.56 - 6 .13 K/L. The refe rence range was not u sed to interpret this result as normal/abnor mal. # Lymphs (test code = 3.72 See_Comment [Auto mated message] 414) The system [employer] generated this result transmitted ref erence range: 1.18 - 3 .74 K/L. The refe rence range was not u sed to interpret this result as normal/abnor mal. # Monos (test code = 1.11 See_Comment H [Autom ated message] 415) The system [employer] generated this result transmitted ref erence range: 0.24 - 0 .36 K/L. The refe rence range was not u sed to interpret this result as normal/abnor mal. # Eos (test code = 416) 0.33 See_Comment [Au tomated message] The system [employer] generated this result transmitted ref erence range: 0.04 - 0 .36 K/L. The refe rence range was not u sed to interpret this result as normal/abnor mal. # Baso (test code = 417) 0.04 See_Comment [A utomated message] The system [employer] generated this result transmitted ref erence range: 0.01 - 0 .08 K/L. The refe rence range was not u sed to interpret this result as normal/abnor mal. Immature 1 % 0-1 Granulocytes-Relative (test code = 2801) Lab Interpretation (test Abnormal code = 50747-2) [facility] W/PLT COUNT & AUTO [id number] 06:22:16 Test Item Value Reference Range Interpretation [...] (BEAKER) (test code = 2801) Vancomycin level, [id number] 14:18:34 Test Item Value Reference Range Interpretation Comments Vancomycin Tr (test code = 8.4 ug/mL 10.0-20.0 L 4092-3) JUANIS (test code = JUANIS) [employer] ID - PIAYA L Lab Interpretation (test Abnormal code = 37624-7) [facility] [id number] 14:18:34 Test Item Value Reference Range Interpretation Comments Vancomycin Tr (test code = 8.4 ug/mL 10.0-20.0 L 4092-3) JUANIS (test code = JUANIS) [employer] ID - PIAYA L Lab Interpretation (test Abnormal code = 66325-0) [facility], [id number] 14:18:34 Test Item Value Reference Range Interpretation Comments Vancomycin Tr (test code = 8.4 ug/mL 10.0-20.0 L 4092-3) JUANIS (test code = JUANIS) [employer] ID - PIAYA L Lab Interpretation (test Abnormal code = 13948-0) [facility], [id number] 14:18:34 Test Item Value Reference Range Interpretation Comments VANCOMYCIN TROUGH (BEAKER) (test 8.4 ug/mL 10.0-20.0 L code = 522) [employer] ID - DEANGELO LCBC W/PLT COUNT & AUTO [id number] 14:05:32 Test Item Value Reference Range Interpretation [...] = No growth in 5 days 6463-4) [facility]uncture) 2021-09-13 02:00:53 Test Item Value Reference Range Interpretation Comments Result (test code = No growth in 5 days 6463-4) [facility]) 2021-09-13 02:00:53 Test Item Value Reference Range Interpretation Comments Result (test code = No growth in 5 days 6463-4) [facility] [id number] 02:00:53 Test Item Value Reference Range Interpretation Comments CULTURE (BEAKER) (test No growth in 5 days code = 1095) BLOOD [id number] 02:00:52 Test Item Value Reference Range Interpretation Comments CULTURE (BEAKER) (test No growth in 5 days code = 1095) Transesophageal [id number] 18:48:24Ejection FractionSLEH ECHO HEARTLAB [facility] [id number] 18:48:24Ejection FractionSLEH ECHO HEARTLAB [facility] [id number] 18:48:24Ejection FractionSLEH ECHO [facility] CenterVANCOMYCIN LEVEL, [id number] 13:59:47 Test Item Value Reference Range Interpretation Comments VANCOMYCIN TROUGH (BEAKER) (test 8.4 ug/mL 10.0-20.0 L code = 522) [employer] ID - DBLactic acid, [id number] 13:58:08 Test Item Value Reference Range Interpretation Comments Lactate, Venous (test code = 1.96 mmol/L 0.50-2.20 2872) JUANIS (test code = JUANIS) [employer] ID - DB Lab Interpretation (test Normal code = 41487-8) [facility] CenterL[facility], [id number] 13:58:08 Test Item Value Reference Range Interpretation Comments Lactate, Venous (test code = 1.96 mmol/L 0.50-2.20 2872) JUANIS (test code = JUANIS) [employer] ID - DB Lab Interpretation (test Normal code = 08731-1) [facility] CenterL[facility], [id number] 13:58:08 Test Item Value Reference Range Interpretation Comments Lactate, Venous (test code = 1.96 mmol/L 0.50-2.20 2872) JUANIS (test code = JUANIS) [employer] ID - DB Lab Interpretation (test Normal code = 33349-2) [facility] CenterLACTIC ACID, [id number] 13:58:08 Test Item Value Reference Range Interpretation Comments LACTATE BLOOD VENOUS (2) (BEAKER) 1.96 mmol/L 0.50-2.20 (test code = 2872) [employer] ID - [facility] [id number] 13:56:06 Test Item Value Reference Range Interpretation [...] Calcium (test code = 8.7 mg/dL 8.4-10.2 75791-8) EGFR (test code = 77 mL/min/1.73 [place] [address]-2) NOT ACCURATE CREATININE CLEARANCE IN PREDICTING GLOMERULAR FILTRATION RATE . ESTIMATED GFR I S NOT APPLICABLE FOR DIALYSIS PATIENTS. JUANIS (test code = JUANIS) [employer] ID - DB Lab Interpretation Abnormal (test code = 74904-9) [facility] Metabolic [id number] 13:56:06 Test Item Value Reference Range Interpretation Comments Sodium (test code = 134 meq/L 136-145 L 2951-2) Potassium (test code = 4.3 meq/L 3.5-5.1 2823-3) Chloride (test code = 99 meq/L 98-107 2075-0) CO2 (test code = 25 meq/L 2027-9) BUN (test code = 18 mg/dL 04-06 3094-0) Creatinine (test code 0.76 mg/dL 0.57-1.25 = 2160-0) Glucose (test code = 118 mg/dL 70-105 H 2345-7) Calcium (test code = 8.7 mg/dL 8.4-10.2 47448-6) EGFR (test code = 77 mL/min/1.73 [place] [address]-3) NOT ACCURATE CREATININE CLEARANCE IN PREDICTING GLOMERULAR FILTRATION RATE . ESTIMATED GFR I S NOT APPLICABLE FOR DIALYSIS PATIENTS. JUANIS (test code = JUANIS) [employer] ID - DB Lab Interpretation Abnormal (test code = 06070-3) [facility] Metabolic [id number] 13:56:06 Test Item Value Reference Range Interpretation [...] Calcium (test code = 8.7 mg/dL 8.4-10.2 40364-9) EGFR (test code = 77 mL/min/1.73 [place] [address]-7) NOT ACCURATE CREATININE CLEARANCE IN PREDICTING GLOMERULAR FILTRATION RATE . ESTIMATED GFR I S NOT APPLICABLE FOR DIALYSIS PATIENTS. JUANIS (test code = JUANIS) [employer] ID - DB Lab Interpretation Abnormal (test code = 21271-9) [facility] METABOLIC [id number] 13:56:06 Test Item Value Reference Range Interpretation [...] S NOT APPLICABLE FOR DIALYSIS PATIEN TS. [employer] ID - DBCBC W/PLT COUNT & AUTO [id number] 13:21:48 Test Item Value Reference Range Interpretation [...] (BEAKER) (test code = 2801) BASIC METABOLIC [id number] 14:26:25 Test Item Value Reference Range Interpretation [...] S NOT APPLICABLE FOR DIALYSIS PATIEN TS. [employer] ID - EKMutdokdum8925-29-25 14:11:30 Test Item Value Reference Range Interpretation Comments Magnesium (test code = 1.9 mg/dL 1.6-2.6 58086-2) JUANIS (test code = JUANIS) [employer] ID - DB Lab Interpretation (test Normal code = 82167-6) [facility]2021-12-26 14:11:30 Test Item Value Reference Range Interpretation Comments Magnesium (test code = 1.9 mg/dL 1.6-2.6 68475-3) JUANIS (test code = JUANIS) [employer] ID - DB Lab Interpretation (test Normal code = 08713-7) [facility]2021-12-26 14:11:30 Test Item Value Reference Range Interpretation Comments Magnesium (test code = 1.9 mg/dL 1.6-2.6 31324-7) JUANIS (test code = JUANIS) [employer] ID - DB Lab Interpretation (test Normal code = 06316-3) [facility] 14:11:30 Test Item Value Reference Range Interpretation Comments MAGNESIUM (BEAKER) (test code = 1.9 mg/dL 1.6-2.6 627) [employer] ID - DBVANCOMYCIN LEVEL, [id number] 12:54:39 Test Item Value Reference Range Interpretation Comments VANCOMYCIN TROUGH (BEAKER) (test 10.7 ug/mL 10.0-20.0 code = 522) [employer] ID - IGNACIO [id number] 08:00:34 Test Item Value Reference Range Interpretation Comments Albumin (test code = 2.2 g/dL 3.5-5.0 L 70789-9) JUANIS (test code = JUANIS) [employer] ID - IGNACIO W Lab Interpretation (test Abnormal code = 09969-2) [facility] 08:00:34 Test Item Value Reference Range Interpretation Comments Albumin (test code = 2.2 g/dL 3.5-5.0 L 95943-5) JUANIS (test code = JUANIS) [employer] ID - IGNACIO W Lab Interpretation (test Abnormal code = 28846-2) [facility]21-[facility] 08:00:34 Test Item Value Reference Range Interpretation Comments Albumin (test code = 2.2 g/dL 3.5-5.0 L 09680-8) JUANIS (test code = JUANIS) [employer] ID - IGNACIO W Lab Interpretation (test Abnormal code = 63983-5) [facility] 08:00:34 Test Item Value Reference Range Interpretation Comments ALBUMIN (BEAKER) (test code = 1145) 2.2 g/dL 3.5-5.0 L [employer] ID - IGNACIO VPmgjuep1269-05-73 06:36:13 Test Item Value Reference Range Interpretation Comments Calcium (test code = 6.4 mg/dL 8.4-10.2 L 94552-9) JUANIS (test code = JUANIS) [employer] ID - IGNACIO W Lab Interpretation (test Abnormal code = 65488-4) [facility] 06:36:13 Test Item Value Reference Range Interpretation Comments Calcium (test code = 6.4 mg/dL 8.4-10.2 L 30927-3) JUANIS (test code = JUANIS) [employer] ID - IGNACIO W Lab Interpretation (test Abnormal code = 57814-5) [facility]21-[facility] 06:36:13 Test Item Value Reference Range Interpretation Comments Calcium (test code = 6.4 mg/dL 8.4-10.2 L 76415-2) JUANIS (test code = JUANIS) [employer] ID - IGNACIO W Lab Interpretation (test Abnormal code = 21521-2) [facility]21-[facility] 06:36:13 Test Item Value Reference Range Interpretation Comments CALCIUM (BEAKER) (test code = 697) 6.4 mg/dL 8.4-10.2 L [employer] ID Ashley PIERRE WBASIC METABOLIC [id number] 05:17:45 Test Item Value Reference Range Interpretation [...] S NOT APPLICABLE FOR DIALYSIS PATIEN TS. [employer] ID Ashley PIERRE LUvyxvrvcdc9156-32-99 05:10:32 Test Item Value Reference Range Interpretation Comments Phosphorus (test code = 2.4 mg/dL 2.3-4.7 2777-1) JUANIS (test code = JUANIS) [employer] ID Ashley PIERRE W Lab Interpretation (test Normal code = 10030-6) [facility] 05:10:32 Test Item Value Reference Range Interpretation Comments Phosphorus (test code = 2.4 mg/dL 2.3-4.7 2777-1) JUANIS (test code = JUANIS) [employer] ID Ashley PIERRE W Lab Interpretation (test Normal code = 16935-6) [facility]21-[facility]-25 05:10:32 Test Item Value Reference Range Interpretation Comments Phosphorus (test code = 2.4 mg/dL 2.3-4.7 2777-1) JUANIS (test code = JUANIS) [employer] ID Ashley PIERRE W Lab Interpretation (test Normal code = 24108-6) [facility]OS[facility]ORUS2021-[facility]-25 05:10:32 Test Item Value Reference Range Interpretation Comments PHOSPHORUS (BEAKER) (test code = 2.4 mg/dL 2.3-4.7 604) [employer] ID - IGNACIO [id number] 05:10:31 Test Item Value Reference Range Interpretation Comments MAGNESIUM (BEAKER) (test code = 1.7 mg/dL 1.6-2.6 627) [employer] ID - IGNACIO WCalcium, Uibzowb2132-47-91 04:50:40 Test Item Value Reference Range Interpretation Comments Calcium, Ion (test code = 1993-11) 1.15 mmol/L 1.12-1.27 pH, Blood (test code = 34760-4) 7.39 [facility], Ytmlnkx0568-70-78 04:50:40 Test Item Value Reference Range Interpretation Comments Calcium, Ion (test code = 1993-11) 1.15 mmol/L 1.12-1.27 pH, Blood (test code = 82529-5) 7.39 [facility], Wwfahit3087-04-50 04:50:40 Test Item Value Reference Range Interpretation Comments Calcium, Ion (test code = 1993-11) 1.15 mmol/L 1.12-1.27 pH, Blood (test code = 02751-6) 7.39 [facility], [id number] 04:50:40 Test Item Value Reference Range Interpretation Comments CALCIUM IONIZED (BEAKER) (test 1.15 mmol/L 1.12-1.27 code = 698) PH, BLOOD (BEAKER) (test code = 7.39 1810) CBC W/PLT COUNT & AUTO [id number] 04:36:32 Test Item Value Reference Range Interpretation [...] (BEAKER) (test code = 2801) VANCOMYCIN LEVEL, [id number] 19:55:12 Test Item Value Reference Range Interpretation Comments VANCOMYCIN TROUGH (BEAKER) (test 20.3 ug/mL 10.0-20.0 H code = 522) [employer] ID - DBBASIC METABOLIC [id number] 05:20:28 Test Item Value Reference Range Interpretation [...] S NOT APPLICABLE FOR DIALYSIS PATIEN TS. [employer] ID - PIAYA [id number] 05:17:02 Test Item Value Reference Range Interpretation Comments MAGNESIUM (BEAKER) (test code = 1.5 mg/dL 1.6-2.6 L 627) [employer] ID - PIAYA [id number] 05:17:02 Test Item Value Reference Range Interpretation Comments PHOSPHORUS (BEAKER) (test code = 2.8 mg/dL 2.3-4.7 604) [employer] ID - DEANGELO LCALCIUM, [id number] 04:11:31 Test Item Value Reference Range Interpretation Comments CALCIUM IONIZED (BEAKER) (test 1.10 mmol/L 1.12-1.27 L code = 698) PH, BLOOD (BEAKER) (test code = 7.43 1810) CBC W/PLT COUNT & AUTO [id number] 04:09:30 Test Item Value Reference Range Interpretation [...] (BEAKER) (test code = 2801) Comprehensive metabolic [id number] 01:11:40 Test Item Value Reference Range Interpretation Comments Protein, Total (test 6.1 See_Comment [Autom ated code = 2885-2) message] The system which generated this result transmit veronica reference range : 6.0 - 8.3 gm/dL . The reference range was not u sed to interpret th is result as normal/abnormal . Albumin (test code = 3.4 g/dL 3.5-5.0 L 85925-2) Alkaline Phosphatase 57 U/L 40-150 (test code = 6768-6) Total Bilirubin (test 0.3 mg/dL 0.2-1.2 code = 1975-2) Sodium (test code = 136 meq/L 804-772 0860-2) Potassium (test code 3.7 meq/L 3.5-5.1 = 2823-3) Chloride (test code = 100 meq/L 98-107 2075-0) CO2 (test code = 28 meq/L 22-29 8-9) BUN (test code = 15 mg/dL 7-21 3094-0) Creatinine (test code 0.69 mg/dL 0.57-1.25 = 2160-0) Glucose (test code = 104 mg/dL 70-105 2345-7) Calcium (test code = 8.7 mg/dL 8.4-10.2 10648-8) AST (test code = 11 U/L 5-34 1920-8) ALT (test code = 13 U/L 6-55 1742-6) EGFR (test code = 86 mL/min/1.73 [place] [address]-5) NOT ACCURATE CREATININE CLEARANCE IN PREDICTING GLOMERULAR FILTRATION RATE . ESTIMATED GFR I S NOT APPLICABLE FOR DIALYSIS PATIEN TS. JUANIS (test code = JUANIS) [employer] ID - BS Lab Interpretation Abnormal (test code = 66141-6) [facility] [id number] 01:11:40 Test Item Value Reference Range Interpretation Comments CRP (test code = 676) 0.55 mg/dL 0.00-0.50 H JUANIS (test code = JUANIS) [employer] ID - BS Lab Interpretation (test Abnormal code = 17385-8) [facility] [id number] 01:11:40 Test Item Value Reference Range Interpretation Comments Protein, Total (test 6.1 See_Comment [Autom ated code = 2885-2) message] The system which generated this result transmit veronica reference range : 6.0 - 8.3 gm/dL . The reference range was not u sed to interpret th is result as normal/abnormal . Albumin (test code = 3.4 g/dL 3.5-5.0 L 24420-3) Alkaline Phosphatase 57 U/L 40-150 (test code = 6768-6) Total Bilirubin (test 0.3 mg/dL 0.2-1.2 code = 1975-2) Sodium (test code = 136 meq/L 429-291 9249-2) Potassium (test code 3.7 meq/L 3.5-5.1 = 2823-3) Chloride (test code = 100 meq/L 98-107 2075-0) CO2 (test code = 28 meq/L 22-29 8-9) BUN (test code = 15 mg/dL 7-21 3094-0) Creatinine (test code 0.69 mg/dL 0.57-1.25 = 2160-0) Glucose (test code = 104 mg/dL 70-105 2345-7) Calcium (test code = 8.7 mg/dL 8.4-10.2 99001-2) AST (test code = 11 U/L 5-34 1920-8) ALT (test code = 13 U/L 6-55 1742-6) EGFR (test code = 86 mL/min/1.73 [place] [address]-0) NOT ACCURATE CREATININE CLEARANCE IN PREDICTING GLOMERULAR FILTRATION RATE . ESTIMATED GFR I S NOT APPLICABLE FOR DIALYSIS PATIEN TS. JUANIS (test code = JUANIS) [employer] ID - BS Lab Interpretation Abnormal (test code = 04270-3) [facility] [id number] 01:11:40 Test Item Value Reference Range Interpretation Comments CRP (test code = 676) 0.55 mg/dL 0.00-0.50 H JUANIS (test code = JUANIS) [employer] ID - BS Lab Interpretation (test Abnormal code = 23793-6) [facility] [id number] 01:11:40 Test Item Value Reference Range Interpretation Comments Protein, Total (test 6.1 See_Comment [Autom ated code = 2885-2) message] The system which generated this result transmit veronica reference range : 6.0 - 8.3 gm/dL . The reference range was not u sed to interpret th is result as normal/abnormal . Albumin (test code = 3.4 g/dL 3.5-5.0 L 28254-2) Alkaline Phosphatase 57 U/L 40-150 (test code = 6768-6) Total Bilirubin (test 0.3 mg/dL 0.2-1.2 code = 1975-2) Sodium (test code = 136 meq/L 605-917 3537-2) Potassium (test code 3.7 meq/L 3.5-5.1 = 2823-3) Chloride (test code = 100 meq/L 98-107 2075-0) CO2 (test code = 28 meq/L 22-29 8-9) BUN (test code = 15 mg/dL 7-21 3094-0) Creatinine (test code 0.69 mg/dL 0.57-1.25 = 2160-0) Glucose (test code = 104 mg/dL 70-105 2345-7) Calcium (test code = 8.7 mg/dL 8.4-10.2 46224-0) AST (test code = 11 U/L 5-34 1920-8) ALT (test code = 13 U/L 6-55 1742-6) EGFR (test code = 86 mL/min/1.[place] [address]-0) NOT ACCURATE CREATININE CLEARANCE IN PREDICTING GLOMERULAR FILTRATION RATE . ESTIMATED GFR I S NOT APPLICABLE FOR DIALYSIS PATIEN TS. JUANIS (test code = JUANIS) [employer] ID - BS Lab Interpretation Abnormal (test code = 85136-1) [facility] [id number] 01:11:40 Test Item Value Reference Range Interpretation Comments CRP (test code = 676) 0.55 mg/dL 0.00-0.50 H JUANIS (test code = JUANIS) [employer] ID - BS Lab Interpretation (test Abnormal code = 00151-5) [facility] [id number] 01:11:40 Test Item Value Reference Range Interpretation [...] S NOT APPLICABLE FOR DIALYSIS PATIEN TS. [employer] ID - [id number] 01:11:40 Test Item Value Reference Range Interpretation Comments MAGNESIUM (BEAKER) (test code = 2.0 mg/dL 1.6-2.6 627) [employer] ID - BSC-REACTIVE [id number] 01:11:40 Test Item Value Reference Range Interpretation Comments C-REACTIVE PROTEIN (BEAKER) (test 0.55 mg/dL 0.00-0.50 H code = 676) [employer] ID - BSLACTIC ACID, [id number] 01:03:18 Test Item Value Reference Range Interpretation Comments LACTATE BLOOD VENOUS (2) (BEAKER) 1.11 mmol/L 0.50-2.20 (test code = 2872) [employer] ID - BSBlood gas, [id number] 01:02:34 Test Item Value Reference Range Interpretation Comments pH, Van (test code = 7.47 7.32-7.42 H 2746-6) pCO2, Van (test code = 41 See_Comment [Aut omated message] 755) The system [employer] generated this result transmit veronica reference range : 41 - 51 mm Hg. The reference range was not used to interpret this result as normal/abnormal . pO2, Van (test code = 100 See_Comment H [Auto mated message] 7875-2) The system [employer] generated this result transmit veronica reference range : 25 - 40 mm Hg. The reference range was not used to interpret this result as normal/abnormal . O2 Sat, Van (test code 98.0 % 40.0-70.0 H = 2711-0) HCO3, Van (test code = 29 mmol/L 21-29 77238-6) Base Excess, Van (test 4.7 mmol/L -2.0-3.0 H code = 1927-3) Patient Temperature 36.1 (test code = 8310-5) FIO2 (test code = 1819) 21 Lab Interpretation Abnormal (test code = 91741-9) [facility] [id number] 01:02:34 Test Item Value Reference Range Interpretation Comments pH, Van (test code = 7.47 7.32-7.42 H 2746-6) pCO2, Van (test code = 41 See_Comment [Aut omated message] 755) The system [employer] generated this result transmit veronica reference range : 41 - 51 mm Hg. The reference range was not used to interpret this result as normal/abnormal . pO2, Van (test code = 100 See_Comment H [Auto mated message] 2705-2) The system [employer] generated this result transmit veronica reference range : 25 - 40 mm Hg. The reference range was not used to interpret this result as normal/abnormal . O2 Sat, Van (test code 98.0 % 40.0-70.0 H = 2711-0) HCO3, Van (test code = 29 mmol/L 21-29 26923-2) Base Excess, Van (test 4.7 mmol/L -2.0-3.0 H code = 1927-3) Patient Temperature 36.1 (test code = 8310-5) FIO2 (test code = 1819) 21 Lab Interpretation Abnormal (test code = 34623-1) [facility] [id number] 01:02:34 Test Item Value Reference Range Interpretation Comments pH, Van (test code = 7.47 7.32-7.42 H 2746-6) pCO2, Van (test code = 41 See_Comment [Aut omated message] 755) The system [employer] generated this result transmit veronica reference range : 41 - 51 mm Hg. The reference range was not used to interpret this result as normal/abnormal . pO2, Van (test code = 100 See_Comment H [Auto mated message] 2705-2) The system [employer] generated this result transmit veronica reference range : 25 - 40 mm Hg. The reference range was not used to interpret this result as normal/abnormal . O2 Sat, Van (test code 98.0 % 40.0-70.0 H = 2711-0) HCO3, Van (test code = 29 mmol/L 21-29 60340-0) Base Excess, Van (test 4.7 mmol/L -2.0-3.0 H code = 1927-3) Patient Temperature 36.1 (test code = 8310-5) FIO2 (test code = 1819) 21 Lab Interpretation Abnormal (test code = 89653-8) [facility], [id number] 01:02:34 Test Item Value Reference Range Interpretation [...] 1819) 21.0 CBC W/PLT COUNT & AUTO [id number] 00:49:55 Test Item Value Reference Range Interpretation [...] 0-1 PERCENT (BEAKER) (test code = 2801) Notes Date/Time Note Provider Source 2023-04-26 [facility] 14:15:38-00:00 sent 2023-04-26 Formatting of this note might be differe nt from the original. Delmy Flores MA [facility] 13:26:37-00:00 Please review and advise. Th ank you. Rx pended. Prescription sent previously is for concentrated solution that requires dilution. Rx requested is already diluted version. Electronically signed by Delmy Flores MA at 0 04/26/2023 1:27 PM CDT 2023-04-26 Formatting of this note might be differe nt from the original. Rosetta Blake [facility] 12:55:12-00:00 Pharmacy is calling to see i f albuterol nebulizer solution can be changed to 2.5 mg per 3 mL? Please call and advise thanks. Electronically signed by Rosetta Blake at 12:57 PM CDT 2023-04-26 Formatting of this note is different from the or iginal. [facility] 10:45:00-00:00 Images from the original note were not included. Venipuncture collection perf ormed by clean technique on the left anticubitus. Total of 1 attempts were made. Slight pressure and a bandage/dressing were applied to the site(s). The patient experienced n o complications. The followi ng specimens were processed according to instructions and sent to [facility] laboratories per lab order on 04/26/2023 : LT BLUE SST 2 RED LAV 1 PPT DK GREEN (LiHep) DK GREEN (SodH) JUDD DK BLUE (K2) DK BLUE (S) ACD Blood Culture NIPT/NTD Pt was not fasting, pt still wanted to do lab wo rk done. Electronically signed by Lisa Swanson at 2022 10:47 AM CDT 2023-04-26 [facility] 09:00:00-00:00 Anemia has improved CBC is good Vitamin D improved Cholesterol is good Kidney and liver function is good 2023-04-19 Formatting of this note is different fro m the original. Guera Hooker MA [facility] 13:51:07-00:00 Images from the original note were not included. Name from pharmacy: [facility] 200-62.5-25 Will file in chart as: TRELEGY ELLIPTA 200-62.5 -25 mcg DsDv Sig: INHALE ONE PUFF BY MOUTH EVERY MORNING Disp: 60 Each ? Refills: Not specified Start: 04/18/2023 Class: eRX Non-formulary For: Chronic obstructive pulmonary disease, unspecified COPD type Last ordered: 3 weeks ago (03/23/2023) by KATHY Monroe Last refill: 03/23/2023 Rx #: [id number] Pulmonology & Allergy: ?Com bination Products ?(LABA, LAMA & ICS) LABA-long acting beta-agonist, LAMA-long acting anti-muscarinic, ICS-inhaled corticosteroid Passed 04/18/2023 09:52 AM Protocol Details Valid encounter within last 12 months Electronically signed by Guera Hooker MA a t 04/19/2023 1:51 PM CDT
[2023-05-12 16:52] LABS: Hematocrit 35.1 % (36.0-45.0); MCV 88.2 fL (80-100); Platelets 267 thou/uL (152-406); RBC Red Blood Cell Count 3.98 M/uL (3.86-4.86)
[2023-05-12 16:53] LABS: Absolute Lymphocytes (CBC) 2.2 K/uL (0.7-4.9); Lymphocytes % 25.7 % (15.3-44.8); MPV 8.2 fL (7.6-11.3)
[2023-05-12 17:05] LABS: SARS-CoV-2 Antigen Rapid Res Negative (Negative)
--- NOTE | 2023-05-12 17:05 | RAD REPORT ---
EXAM DESCRIPTION: RAD - Chest Single View - 05/12/2023 5:01 pm CLINICAL HISTORY: COUGH COMPARISON: Chest Single View dated 01/14/2022; Chest Single View dated 10/30/2021; Chest Single View dated 09/07/2021; Chest Single View dated 09/06/2021 FINDINGS: Lines: None. Lungs: No evidence of edema or pneumonia. Pleural: No significant pleural effusions or pneumothorax. Cardiac: The heart size is within normal limits. Mediastinum: Within normal limits. Bones: No acute fractures. ACDF in the spine . Remote right-sided rib fractures. Other: None IMPRESSION: No acute cardiopulmonary disease.
--- NOTE | 2023-05-12 17:06 | RAD REPORT ---
EXAM DESCRIPTION: RAD - Hand Left 3 View - 05/12/2023 5:00 pm CLINICAL HISTORY: PAIN COMPARISON: Chest Single View dated 05/12/2023 FINDINGS/IMPRESSION: No acute fracture. No malalignment. No significant focal degenerative changes. No radiographic evidence of osteomyelitis or soft tissue gas. No retained foreign body.
[2023-05-12 17:10] LABS: Albumin 3.6 g/dL (3.4-5.0); Bilirubin Total 0.2 mg/dL (0.2-1.0); Potassium 3.9 mEq/L (3.5-5.1)
[2023-05-12] MEDS ORDERED: NA CHLORIDE 0.9% 1,000 ML ONE (17:16)
[2023-05-12] MEDS ORDERED: CEFTRIAXONE 1000 MG/VIAL ONE (17:16)
[2023-05-12] MEDS ORDERED: ACETAMINOPHEN 500 MG TAB ONE (17:16)
[2023-05-12] MEDS ORDERED: AMOX/K CLAV 875 MG TAB ONE (17:16)
[2023-05-12] MEDS ORDERED: NA CHLORIDE 0.9% 50 ML ONE (17:16)
[2023-05-12] MEDS ORDERED: IBUPROFEN 400 MG TAB ONE (17:40)
[2023-05-12] MEDS ORDERED: AMOX TR/K CLAV 400MG CHEW TAB PO ONE (17:43)
[2023-05-12] MEDS ORDERED: IBUPROFEN 200 MG TAB PO ONE (17:43)
--- NOTE | 2023-05-12 18:11 | EDPHYS ---
Physician Documentation [facility] Name: Irina Pardo Age: 67 yrs Sex: Female : 1955 Arrival Date: 05/12/2023 Time: 15:51 Bed 18 Private MD: ED Physician Dain Huff HPI: 05/12 16:27 This 67 yrs old Female presents to ER via EMS with complaints of Cat Bite. aylin 16:27 The patient was bitten on the left hand. Onset: The symptoms/episode began/occurred 3 aylin day(s) ago. Animal information: The animal was reported to appear healthy. Animal's vaccinations are not up to date. The animal is known and can be quarantined, Animal control has been notified. Secondary to the bite the patient reports erythema, pain. Associated signs and symptoms: Pertinent positives: fever, swelling at site, tenderness. Severity of symptoms: At their worst the symptoms were mild, moderate, in the emergency department the symptoms are unchanged. The patient has not experienced similar symptoms in the past. Historical: - Allergies: 15:56 Iodine; eh3 15:56 SHELLFISH; eh3 - PMHx: 15:56 COPD; CVA; High Cholesterol; eh3 - Immunization history:: Adult Immunizations up to date. - Social history:: Smoking status: unknown. ROS: 16:28 Eyes: Negative for injury, pain, redness, and discharge, ENT: Negative for injury, aylin pain, and discharge, Neck: Negative for injury, pain, and swelling, Cardiovascular: Negative for chest pain, palpitations, and edema, Respiratory: Negative for shortness of breath, cough, wheezing, and pleuritic chest pain, Abdomen/GI: Negative for abdominal pain, nausea, vomiting, diarrhea, and constipation, Back: Negative for injury and pain, : Negative for injury, bleeding, discharge, and swelling, Skin: Negative for injury, rash, and discoloration, Neuro: Negative for headache, weakness, numbness, tingling, and seizure, Psych: Negative for depression, anxiety, suicide ideation, homicidal ideation, and hallucinations, Allergy/Immunology: Negative for hives, rash, and allergies, Endocrine: Negative for neck swelling, polydipsia, polyuria, polyphagia, and marked weight changes, Hematologic/Lymphatic: Negative for swollen nodes, abnormal bleeding, and unusual bruising. 16:28 MS/extremity: Positive for injury or acute deformity, decreased range of motion, erythema, pain, warmth, of the left hand. Exam: 16:28 Constitutional: This is a well developed, well nourished patient who is awake, alert, aylin and in no acute distress. Head/Face: Normocephalic, atraumatic. Eyes: Pupils equal round and reactive to light, extra-ocular motions intact. Lids and lashes normal. Conjunctiva and sclera are non-icteric and not injected. Cornea within normal limits. Periorbital areas with no swelling, redness, or edema. ENT: Nares patent. No nasal discharge, no septal abnormalities noted. Tympanic membranes are normal and external auditory canals are clear. Oropharynx with no redness, swelling, or masses, exudates, or evidence of obstruction, uvula midline. Mucous membranes moist. Neck: Trachea midline, no thyromegaly or masses palpated, and no cervical lymphadenopathy. Supple, full range of motion without nuchal rigidity, or vertebral point tenderness. No Meningismus. Chest/axilla: Normal chest wall appearance and motion. Nontender with no deformity. No lesions are appreciated. Cardiovascular: Regular rate and rhythm with a normal S1 and S2. No gallops, murmurs, or rubs. Normal PMI, no JVD. No pulse deficits. Respiratory: Lungs have equal breath sounds bilaterally, clear to auscultation and percussion. No rales, rhonchi or wheezes noted. No increased work of breathing, no retractions or nasal flaring. Abdomen/GI: Soft, non-tender, with normal bowel sounds. No distension or tympany. No guarding or rebound. No evidence of tenderness throughout. Back: No spinal tenderness. No costovertebral tenderness. Full range of motion. Neuro: Awake and alert, GCS 15, oriented to person, place, time, and situation. Cranial nerves II-XII grossly intact. Motor strength 5/5 in all extremities. Sensory grossly intact. Cerebellar exam normal. Normal gait. Psych: Awake, alert, with orientation to person, place and time. Behavior, mood, and affect are within normal limits. 16:28 Skin: abscess, not appreciated, cellulitis, that is minimal, on the left hand, induration, that is mild is noted, injury, contusion(s), puncture(s), that are deep, of the left hand. Vital Signs: 15:56 BP 117 / 77; Pulse 103; Resp 21; Temp 99.7; Pulse Ox 95% on R/A; Weight 58.06 kg; eh3 Height 5 ft. 2 in. ; 16:15 BP 114 / 78; Pulse 97; Resp 18; Pulse Ox 95% on R/A; eh3 17:00 BP 142 / 89; Pulse 90; Resp 16; Pulse Ox 97% on R/A; eh3 18:00 BP 136 / 89; Pulse 88; Resp 17; Pulse Ox 97% on R/A; eh3 15:56 Body Mass Index 23.41 (58.06 kg, 157.48 cm) 3 [place] Coma Score: 16:28 Eye Response: spontaneous(4). Motor Response: obeys commands(6). Verbal Response: aylin oriented(5). Total: 15. MDM: 15:58 Patient medically screened. aylin 16:35 Differential diagnosis: rabies, cellulitis, viral Infection, bacterial infection, aylin bronchitis, pneumonia UTI. Rabies Status: Rabies immunization is not indicated. Data reviewed: vital signs, nurses notes, lab test result(s), radiologic studies, plain films. Consideration of Admission/Observation Escalation of care including admission/observation considered. I considered the following discharge prescriptions or medication management in the emergency department Medications were administered in the Emergency Department. See MAR. Independent interpretation of the following test(s) in the Emergency Department X-Ray: My interpretation is x ray, no fx, no fb. Test considered but Not performed: MRI: no hand mri. Care significantly affected by the following chronic conditions: Chronic Obstructive Pulmonary Disease, cva, high cholesterol. 05/12 16:23 Order name: CBC with Diff; Complete Time: 17:37 [facility] 05/12 16:23 Order name: Comprehensive Metabolic Panel; Complete Time: 17:37 [facility] 05/12 16:23 Order name: Blood Culture Adult (2) [facility] 05/12 16:23 Order name: Lactate w/ 2H reflex if indic.; Complete Time: 17:37 [facility] 05/12 16:23 Order name: Influenza Screen (a \T\ B); Complete Time: 17:37 [facility] 05/12 16:23 Order name: SARS RAPID; Complete Time: 17:37 [facility] 05/12 16:23 Order name: Hand Left 3 View XRAY; Complete Time: 17:37 aylin 05/12 16:23 Order name: Chest Single View XRAY; Complete Time: 17:37 [facility] 05/12 16:23 Order name: Wound Care; Complete Time: 17:24 [facility] Administered Medications: 17:00 Drug: Rocephin IV 1 grams Route: IV; Rate: per protocol; Site: left antecubital; eh3 18:30 Follow up: Response: No adverse reaction; IV Status: Completed infusion; IV Intake: [id number] 17:00 Drug: NS 0.9% IV 1000 ml Route: IV; Rate: 1 bolus; Site: left antecubital; eh3 18:30 Follow up: IV Status: Completed infusion; IV Intake: 1000ml eh3 17:23 Not Given (Patient Refused): Amoxicillin-Clavulanate PO 875 mg PO once eh3 17:23 Not Given (Patient Refused): Acetaminophen PO 1000 mg PO once eh3 17:38 Drug: Ibuprofen PO 600 mg Route: PO; eh3 18:29 Follow up: Response: No adverse reaction eh3 17:38 Drug: Amoxicillin-Clavulanate PO Chewable Tablet 400 mg Route: PO; eh3 18:29 Follow up: Response: No adverse reaction eh3 17:38 Drug: Amoxicillin-Clavulanate PO Chewable Tablet 400 mg Route: PO; eh3 18:29 Follow up: Response: No adverse reaction eh3 Disposition Summary: 05/12/23 18:11 Discharge Ordered Location: Home aylin Problem: new aylin Symptoms: have improved aylin Condition: Stable aylin Diagnosis - Bitten by cat aylin - Cellulitis and acute lymphangitis of other parts of limb aylin - Fever, unspecified aylin Followup: aylin - With: Private Physician - When: 2 - 3 days - Reason: Recheck today's complaints, Continuance of care, Re-evaluation by your physician Followup: aylin - With: - When: 2 - 3 days - Reason: Recheck today's complaints, Re-evaluation by your physician Discharge Instructions: - Discharge Summary Sheet aylin - Animal Bite, Adult, [id number]-uc-[id number] aylin - Cellulitis, Adult aylin - Cellulitis, Adult, [id number]-[id number] aylin - Animal Bite, Adult aylin - Fever, Adult, [id number] aylin Forms: - Medication Reconciliation Form aylin - Thank You Letter aylin - Antibiotic Education aylin - Prescription Opioid Use aylin - Patient Portal Instructions [facility] - Leadership Thank You Letter [facility] Prescriptions: - Centany 2 % Topical ointment - apply 1 application by TOPICAL route 3 times per day; 15 gram tube; Refills: 0, [facility] Product Selection Permitted - acetaminophen-codeine 300-30 mg Oral tablet - take 1 tablet by ORAL route every 4-6 hours; 20 tablet; Refills: 0, Product [facility] Selection Permitted - Augmentin 875-125 mg Oral Tablet - take 1 tablet by ORAL route every 12 hours for 10 days; 20 tablet; Refills: 0, [facility] Product Selection Permitted Signatures: Dispatcher [employer] Dain Mcneal MD MD cha Hall, Erin RN RN eh3
--- NOTE | 2023-05-12 18:11 | ER ---
Nurse's Notes [facility] Name: Irian Pardo Age: 67 yrs Sex: Female : 1955 Arrival Date: 05/12/2023 Time: 15:51 Bed 18 Private MD: Diagnosis: Bitten by cat;Cellulitis and acute lymphangitis of other parts of limb;Fever, unspecified Presentation: 05/12 15:56 Chief complaint: EMS states: left hand bit by son's cat 2 days ago at home, reports eh3 that cat is not up to date on vaccines, right hand is now red, swollen, and oozing, EMS reports oral temp 99.7. Coronavirus screen: Vaccine status: Patient reports receiving the 2nd dose of the covid vaccine. Ebola Screen: No symptoms or risks identified at this time. Initial Sepsis Screen: Does the patient meet any 2 criteria? RR > 20 per min. HR > 90 bpm. Yes Does the patient have a suspected source of infection? Yes: Skin breakdown/wound. Risk Assessment: Do you want to hurt yourself or someone else? Patient reports no desire to harm self or others. Onset of symptoms was May 12, 2023. 15:56 Method Of Arrival: EMS: [place] [id number] 15:56 Acuity: FRANK 3 eh3 Triage Assessment: 15:56 Bite description: bite sustained to left hand by a cat, animal information: eh3 vaccination(s) is not up to date. General: Appears in no apparent distress. uncomfortable, Behavior is calm, cooperative, appropriate for age. Pain: Complains of pain in left hand. Neuro: Level of Consciousness is awake, alert, obeys commands, Oriented to person, place, time, situation. Cardiovascular: Capillary refill < 3 seconds Patient's skin is warm and dry. Respiratory: Airway is patent Respiratory effort is even, unlabored, Respiratory pattern is regular, symmetrical. GI: Abdomen is round non-distended. Derm: Skin is pink, warm \T\ dry. Musculoskeletal: Circulation, motion, and sensation intact. Range of motion: intact in all extremities. Historical: - Allergies: 15:56 Iodine; eh3 15:56 SHELLFISH; eh3 - PMHx: 15:56 COPD; CVA; High Cholesterol; eh3 - Immunization history:: Adult Immunizations up to date. - Social history:: Smoking status: unknown. Screenin:00 [facility] ED Fall Risk Assessment (Adult) Score/Fall Risk Level 0 - 2 = Low Risk. Abuse 3 screen: Denies threats or abuse. Denies injuries from another. Nutritional screening: No deficits noted. Tuberculosis screening: No symptoms or risk factors identified. Assessment: 16:00 Reassessment: No changes from previously documented assessment. See triage assessment. 3 Derm: Skin is healthy with good turgor, Skin is pink, warm \T\ dry. Wound noted dorsum of left hand Wound is 4mm puncture wound surrounded by erythematous tissue Reports pain that is 6 out of 10 on a pain scale. 17:00 Reassessment: Patient appears in no apparent distress at this time. Patient and/or 3 family updated on plan of care and expected duration. Pain level reassessed. Patient is alert, oriented x 3, equal unlabored respirations, skin warm/dry/pink. 18:00 Reassessment: Patient appears in no apparent distress at this time. Patient and/or 3 family updated on plan of care and expected duration. Pain level reassessed. Patient is alert, oriented x 3, equal unlabored respirations, skin warm/dry/pink. Vital Signs: 15:56 BP 117 / 77; Pulse 103; Resp 21; Temp 99.7; Pulse Ox 95% on R/A; Weight 58.06 kg; 3 Height 5 ft. 2 in. ; 16:15 BP 114 / 78; Pulse 97; Resp 18; Pulse Ox 95% on R/A; eh3 17:00 BP 142 / 89; Pulse 90; Resp 16; Pulse Ox 97% on R/A; eh3 18:00 BP 136 / 89; Pulse 88; Resp 17; Pulse Ox 97% on R/A; eh3 15:56 Body Mass Index 23.41 (58.06 kg, 157.48 cm) 3 [place] Coma Score: 16:28 Eye Response: spontaneous(4). Motor Response: obeys commands(6). Verbal Response: aylin oriented(5). Total: 15. ED Course: 15:54 Patient arrived in ED. 3 15:56 Arm band placed on. [facility] 15:58 Dain Huff MD is Attending Physician. aylin 16:00 Patient has correct armband on for positive identification. Bed in low position. Call eh3 light in reach. Side rails up X2. Provided Education on: Use of call layne. Client placed on continuous cardiac and pulse oximetry monitoring. NIBP monitoring applied. 16:06 Triage completed. eh3 16:07 Monica Taylor, RN is Primary Nurse. eh3 16:24 Inserted saline lock: 20 gauge in left antecubital area, using aseptic technique. Blood eh3 collected. 16:[address] and connected to suction, pt tolerating well. eh3 17:02 Hand Left 3 View XRAY In Process Unspecified. EDMS 17:02 Chest Single View XRAY In Process Unspecified. EDMS 17:24 Wound care: to puncture located on left hand was cleaned with Hibiclens, irrigated with eh3 normal saline, dressed with Neosporin, Kerlix, Patient tolerated well. 18:11 Ric Ramsey MD is Referral Physician. aylin 18:28 No provider procedures requiring assistance completed. IV discontinued, intact, eh3 bleeding controlled, No redness/swelling at site. Pressure dressing applied. Administered Medications: 17:00 Drug: Rocephin IV 1 grams Route: IV; Rate: per protocol; Site: left antecubital; eh3 18:30 Follow up: Response: No adverse reaction; IV Status: Completed infusion; IV Intake: [id number] 17:00 Drug: NS 0.9% IV 1000 ml Route: IV; Rate: 1 bolus; Site: left antecubital; eh3 18:30 Follow up: IV Status: Completed infusion; IV Intake: 1000ml eh3 17:23 Not Given (Patient Refused): Amoxicillin-Clavulanate PO 875 mg PO once eh3 17:23 Not Given (Patient Refused): Acetaminophen PO 1000 mg PO once eh3 17:38 Drug: Ibuprofen PO 600 mg Route: PO; eh3 18:29 Follow up: Response: No adverse reaction eh3 17:38 Drug: Amoxicillin-Clavulanate PO Chewable Tablet 400 mg Route: PO; eh3 18:29 Follow up: Response: No adverse reaction eh3 17:38 Drug: Amoxicillin-Clavulanate PO Chewable Tablet 400 mg Route: PO; eh3 18:29 Follow up: Response: No adverse reaction eh3 Medication: 18:28 VIS not applicable for this client. eh3 Intake: 18:30 IV: 1000ml; Total: 1000ml. eh3 18:30 IV: 50ml; Total: 1050ml. eh3 Outcome: 18:11 Discharge ordered by . aylin 18:43 Discharged to home via wheelchair. eh3 18:43 Condition: stable 18:43 Discharge instructions given to patient, Instructed on discharge instructions, follow up and referral plans. medication usage, Demonstrated understanding of instructions, follow-up care, medications, Prescriptions given X 3. 18:51 Patient left the ED. eh3 Signatures: Dispatcher [employer] EDDain Samano MD MD cha Hall, Erin, RN RN eh3 Corrections: (The following items were deleted from the chart) 18:19 16:00 Derm: Skin is healthy with good turgor, eh3 eh3 18:20 16:00 Derm: Skin is healthy with good turgor, Wound noted dorsum of left hand Wound is eh3 4mm puncture wound surrounded by erythematous tissue eh3 18:20 16:00 Derm: Skin is healthy with good turgor, Wound noted dorsum of left hand Wound is eh3 4mm puncture wound surrounded by erythematous tissue Reports pain that is 6 out of 10 on a pain scale. eh3
[2023-05-12 19:15] VITALS: TEMP 99.7
[2023-05-12 19:26] VITALS: O2SAT 97
[2023-05-12 19:38] VITALS: BP 136/89
== END 2023-05-12 18:51 | disposition home or self-care (01) ==
LOC: ER 15:51
DX: L03.114 Cellulitis of left upper limb (principal); W55.01XA Bitten by cat, initial encounter; Z20.822 Contact with and (suspected) exposure to COVID-19; Z91.013 Allergy to seafood; Z91.048 Other nonmedicinal substance allergy status
CPT/HCPCS: 96365; 87040 ×2; 85025; 36415; 83605; 80053; 87804 ×2; 71045; 73130; 99285; 87811; J7030; J0696

== ENCOUNTER 2024-03-14 01:00 | Inpatient (IN) | payer OTHER ==
[2024-03-14] MEDS ORDERED: LEVALBUTEROL 0.63 MG/3 ML NEB ONE ×2 (01:48→01:51)
[2024-03-14] MEDS ORDERED: IPRATROPIUM BROM 0.5MG/2.5ML ONE (01:48)
[2024-03-14 02:27] LABS: Absolute Eosinophils 0.5 K/uL (0-0.5); Absolute Lymphocytes (CBC) 0.8 K/uL (0.7-4.9); Absolute Monocytes 0.7 K/uL (0.1-1.3); Absolute Neutrophil 11.3 K/uL (1.8-8.0); Basophils % 0.1 % (0-1.3); Eosinophils % 3.7 % (0-4.4); Hematocrit 33.1 % (36.0-45.0); Hemoglobin 10.8 g/dL (12.0-15.0); Lymphocytes % 6.3 % (15.3-44.8); MCH 29.3 pg (27.0-35.0); MCHC 32.5 g/dL (32.0-36.0); MCV 90.3 fL (80-100); MPV 8.2 fL (7.6-11.3); Monocytes % 4.9 % (3.3-12.3); Platelets 360 thou/uL (152-406); RBC Red Blood Cell Count 3.67 M/uL (3.86-4.86); Red Cell Distribution Width 13.9 % (12.1-15.2)
[2024-03-14 02:29] LABS: PT Prothrombin Time 11.4 SECONDS (9.4-12.5); Protime INR 1.04
[2024-03-14 02:42] LABS: SARS-CoV-2 Antigen CONTROL BLUE LINE VIS/BG OK; SARS-CoV-2 Antigen Rapid Res Negative (Negative)
[2024-03-14 02:44] LABS: ALT/SGPT 18 U/L (13-56); AST/SGOT 13 U/L (15-37); Albumin 3.3 g/dL (3.4-5.0); Alkaline Phosphatase 131 U/L (45-117); Anion Gap 8.7 mEq/L (5.0-15.0); BUN Blood Urea Nitrogen 17 mg/dL (7-18); Bicarbonate 28 mEq/L (21-32); Bilirubin Total 0.4 mg/dL (0.2-1.0); Globulin 3.2 g/dL (2.3-3.5); Glomerular Filtration Rate 66 ml/min (=/>90); Glucose Level 149 mg/dL (74-106); Magnesium 2.3 mg/dL (1.6-2.4); NT PRO-BNP 687 pg/mL (<125); Potassium 3.7 mEq/L (3.5-5.1); Protein, Total 6.5 g/dL (6.4-8.2); Sodium Level 138 mEq/L (136-145); Troponin High Sensitivity 12.3 pg/mL (<58.9)
[2024-03-14 02:47] LABS: Bilirubin Direct < 0.2 mg/dL (0-0.2); Bilirubin Indirect, Calculated 0.2 mg/dL (0.2-0.8)
--- NOTE | 2024-03-14 03:19 | EDPHYS ---
Physician Documentation [facility] Name: Irina Pardo Age: 68 yrs Sex: Female : 1955 Arrival Date: 03/14/2024 Time: 01:00 Bed 19 Private MD: ED Physician Dain Huff HPI: 03/14 01:20 This 68 yrs old Female presents to ER via EMS with complaints of Shortness of Breath. cp Historical: - Allergies: 02:02 Iodine; rg5 02:02 SHELLFISH; rg5 - PMHx: 02:02 COPD; CVA; High Cholesterol; rg5 - Immunization history:: Adult Immunizations up to date, Client reports receiving the 2nd dose of the Covid vaccine. - Infectious Disease History:: Denies. - Social history:: Smoking status: Patient/guardian denies using tobacco, the patient reports quitting approximately 3 years ago. ROS: 01:25 Constitutional: Negative for fever, cp 01:25 Eyes: Negative for injury, pain, redness, and discharge, cp 01:25 ENT: Negative for drainage from ear(s), ear pain, sore throat, difficulty swallowing, difficulty handling secretions, 01:25 Cardiovascular: Negative for chest pain, edema, palpitations, 01:25 Respiratory: Positive for cough, shortness of breath, at rest. wheezing, 01:25 Abdomen/GI: Negative for abdominal pain, vomiting, diarrhea, constipation, 01:25 Neuro: Negative for altered mental status, dizziness, headache, syncope, weakness, 01:25 All other systems are negative, Exam: :30 ECG was reviewed by the Attending Physician. cp 01:33 Constitutional: The patient appears in no acute distress, alert, awake, cp non-diaphoretic, non-toxic, well developed, well nourished, uncomfortable, 01:33 Head/Face: Normocephalic, atraumatic. cp 01:33 Eyes: Periorbital structures: appear normal, Conjunctiva: normal, no exudate, no injection, Sclera: no appreciated abnormality, Lids and lashes: appear normal, bilaterally, 01:33 ENT: External ear(s): are unremarkable, Nose: is normal, Mouth: Lips: moist, Posterior pharynx: Airway: no evidence of obstruction, patent, erythema, is not appreciated, exudate, is not appreciated, 01:33 Neck: ROM/movement: is normal, is supple, without pain, no range of motions limitations, no meningismus, no nuchal rigidity, :33 Chest/axilla: Inspection: normal, 33 Cardiovascular: Rate: tachycardic, Rhythm: regular, Edema: is not appreciated, JVD: is not appreciated, :33 Respiratory: mild respiratory distress is noted, Respirations: labored breathing, that is moderate, intercostal retractions, that is moderate, Breath sounds: decreased breath sounds, that are moderate, throughout, stridor, is not appreciated, wheezing: that is mild, is heard diffusely, :33 Abdomen/GI: Inspection: abdomen appears normal, Palpation: abdomen is soft and non-tender, in all quadrants, Back: pain, is absent, ROM is normal, :33 Neuro: Orientation: to person, place \T\ time. Mentation: is normal, Motor: right arm contracted, Vital Signs: 01:14 BP 112 / 80; Pulse 103; Resp 20; Temp 98.7(O); Pulse Ox 100% on NC; FiO2 2 %; Weight oe 68.04 kg; Height 5 ft. 4 in. ; 04:15 BP 117 / 71; Pulse 98; Resp 19; Temp 98; Pulse Ox 97% on 3 lpm NC; Pain 0/10; rg5 01:14 Body Mass Index 25.75 (68.04 kg, 162.56 cm) oe 04:15 Pain Scale: Adult rg5 [address] Coma Score: 02:53 Eye Response: spontaneous(4). Motor Response: obeys commands(6). Verbal Response: rg5 oriented(5). Total: 15. MDM: 01:17 Patient medically screened. cp 02:00 Differential diagnosis: Bronchitis CHF exacerbation, Myocardial Infarction pneumonia, cp Pneumothorax pulmonary edema, Pulmonary Embolism Sepsis Unstable Angina. 03:20 Data reviewed: vital signs, nurses notes, lab test result(s), EKG, radiologic studies, cp plain films, and as a result, I will admit patient. 03:20 Antibiotic administration: Not indicated, the patient does not have an appreciated cp infiltrate. I considered the following discharge prescriptions or medication management in the emergency department Medications were administered in the Emergency Department. See MAR. Independent interpretation of the following test(s) in the Emergency Department EKG: See my EKG interpretation above. Care significantly affected by the following chronic conditions: Chronic Obstructive Pulmonary Disease. Counseling: I had a detailed discussion with the patient and/or guardian regarding the historical points, exam findings, and any diagnostic results supporting the discharge/admit diagnosis, lab results, radiology results, the need for further work-up and treatment in the hospital. Response to treatment: the patient's symptoms have markedly improved after treatment. 03/14 01:16 Order name: Basic Metabolic Panel; Complete Time: 03:02 cp 03/14 03:03 Interpretation: Normal except: GLUC 149; GFR 66. cp 03/14 01:16 Order name: CBC with Diff; Complete Time: 03:02 03/14 03:03 Interpretation: Normal except: WBC 13.40; RBC 3.67; HGB 10.8; HCT 33.1; TABITHA% 85.0; LYM% cp 6.3; NEUT A 11.3. 03/14 01:16 Order name: LFT's; Complete Time: 03:02 03/14 03:03 Interpretation: Normal except: AST 13; ALK 131; ALB 3.3; A/G 1.0. cp 03/14 01:16 Order name: Magnesium; Complete Time: 03:02 03/14 01:16 Order name: NT PRO-BNP; Complete Time: 03:02 cp 03/14 03:04 Interpretation: Abnormal: NT PRO-BNP 687. cp 03/14 01:16 Order name: PT-INR; Complete Time: 03:02 03/14 01:16 Order name: Troponin HS; Complete Time: 03:02 03/14 01:16 Order name: SARS RAPID; Complete Time: 03:02 cp 03/14 01:16 Order name: Influenza Screen (a \T\ B); Complete Time: 03:02 cp 03/14 01:17 Order name: Lactate w/ 2H reflex if indic.; Complete Time: 03:02 03/14 03:08 Interpretation: Reviewed. 03/14 01:17 Order name: Blood Culture Adult (2) cp 03/14 03:51 Order name: Urinalysis w/ reflexes EDMS 03/14 03:51 Order name: CBC with Automated Diff EDMS 03/14 03:51 Order name: CBC with Automated Diff EDMS 03/14 03:51 Order name: Comprehensive Metabolic Panel EDMS 03/14 03:51 Order name: Comprehensive Metabolic Panel [facility] 03/14 01:16 Order name: XRAY Chest (1 view) 03/14 01:16 Order name: EKG; Complete Time: 01:17 03/14 01:16 Order name: Cardiac monitoring; Complete Time: :57 03/14 01:16 Order name: EKG - Nurse/Tech; Complete Time: :57 03/14 01:16 Order name: IV Saline Lock; Complete Time: :57 03/14 01:16 Order name: Labs collected and sent; Complete Time: 02:37 03/14 01:16 Order name: O2 Per Protocol; Complete Time: :57 03/14 01:16 Order name: O2 Sat Monitoring; Complete Time: : EC:30 Rate is 100 beats/min. Rhythm is regular. NH interval is normal. QRS interval is cp normal. QT interval is normal. T waves are Inverted in leads aVL, aVR. Interpreted by me. Reviewed by me. Administered Medications: 01:56 Drug: Ipratropium Inhalation Aerosol 0.5 mg Inhalation once Route: Inhalation; rg5 01:57 Drug: Levalbuterol Inhalation 1.25 mg Inhalation once Route: Inhalation; rg5 Disposition Summary: 03/14/24 03:19 Hospitalization Ordered Notes: Hospitalization Status: Observation cp Provider: Anibal Beckett cp Location: Telemetry/MedSurg (observation) cp Condition: Stable cp Problem: an acute exacerbation cp Symptoms: have improved cp Bed/Room Type: Standard Room Assignment: [facility](03/14/24 04:08) [facility] Diagnosis - COPD/ Chronic obstructive pulmonary disease with (acute) exacerbation cp Forms: - Medication Reconciliation Form cp - SBAR form cp - Leadership Thank You Letter cp Addendum: 03/22/2024 08:07 Co-signature as Attending Physician, Dain Huff MD I agree with the assessment and c martinez plan of care. Signatures: Dispatcher [employer] Dain Mcneal MD MD cha Page, Corey, PA PA cp Forrester, Kelsey Maroul [facility] Matthew Golden RN RN rg5 Corrections: (The following items were deleted from the chart) 03/14 01:17 01:17 BASIC METABOLIC PANEL+C.LAB.BRZ ordered. EDMS EDMS 01: 01:17 CBC+H.LAB.BRZ ordered. EDMS EDMS : 01:17 HEPATIC FUNCTION+C.LAB.BRZ ordered. EDMS EDMS : 01:17 MAGNESIUM+C.LAB.BRZ ordered. EDMS EDMS 01:17 01:17 PROBNP+C.LAB.BRZ ordered. EDMS EDMS : 01:17 PROTIME (+INR)+COAG.LAB.BRZ ordered. EDMS EDMS : 01:17 Troponin High Sensitivity+C.LAB.BRZ ordered. EDMS EDMS 01: 01:17 SARS-COV-2 Antigen Rapid+I.LAB.BRZ ordered. EDMS EDMS : 01:17 Influenza Screen (A \T\ B)+BA.LAB.BRZ ordered. EDMS EDMS 04:08 03:19 cp kmf
--- NOTE | 2024-03-14 03:19 | ER ---
Nurse's Notes [facility] Name: Irina Pardo Age: 68 yrs Sex: Female : 1955 Arrival Date: 03/14/2024 Time: 01:00 Bed 19 Private MD: Diagnosis: COPD/ Chronic obstructive pulmonary disease with (acute) exacerbation Presentation: 03/14 01:15 Chief complaint: Patient states: shorthness of breath started 3 days [employer]. Coronavirus rg5 screen: Vaccine status: Patient reports receiving the 2nd dose of the covid vaccine. Client denies travel out of the [place] in the last 14 days. Ebola Screen: Patient negative for fever greater than or equal to 101.5 degrees Fahrenheit, and additional compatible Ebola Virus Disease symptoms Patient denies exposure to infectious person. Initial Sepsis Screen: Does the patient meet any 2 criteria? No. Patient's initial sepsis screen is negative. Does the patient have a suspected source of infection? No. Patient's initial sepsis screen is negative. Risk Assessment: Do you want to hurt yourself or someone else? Patient reports no desire to harm self or others. Onset of symptoms was March 14, 2024. Care prior to arrival: O2 \T\ 3LPM 01:15 Method Of Arrival: EMS: [facility] rg5 01:15 Acuity: FRANK 3 rg5 Triage Assessment: 02:02 General: Appears uncomfortable, Behavior is calm, cooperative, appropriate for age. rg5 Pain: Denies pain. Neuro: Level of Consciousness is awake, alert, obeys commands, Oriented to person, place, time. Respiratory: Airway Respiratory pattern is regular, Sputum is thin, clear Breath sounds with wheezes bilaterally. the patient has mild shortness of breath. GI: Abdomen is round. :. Derm: Skin is intact, Skin is dry, Skin is pink, warm \T\ dry. Historical: - Allergies: 02:02 Iodine; rg5 02:02 SHELLFISH; rg5 - PMHx: 02:02 COPD; CVA; High Cholesterol; rg5 - Immunization history:: Adult Immunizations up to date, Client reports receiving the 2nd dose of the Covid vaccine. - Infectious Disease History:: Denies. - Social history:: Smoking status: Patient/guardian denies using tobacco, the patient reports quitting approximately 3 years ago. Screenin:08 [facility] ED Fall Risk Assessment (Adult) History of falling in the last 3 months, rg5 including since admission No falls in past 3 months (0 pts) Confusion or Disorientation No (0 pts) Intoxicated or Sedated No (0 pts) Impaired Gait Yes (1 pt) Mobility Assist Device Used Yes (1 pt) Altered Elimination No (0 pt) Score/Fall Risk Level 0 - 2 = Low Risk Oriented to surroundings, Maintained a safe environment, Educated pt \T\ family on fall prevention, incl call for assistance when getting out of bed, Hourly rounding (assess needs \T\ fall precautionary measures) done. Abuse screen: Denies threats or abuse. Nutritional screening: No deficits noted. Tuberculosis screening: No symptoms or risk factors identified. Assessment: 02:08 Reassessment: Patient and/or family updated on plan of care and expected duration. Pain rg5 level reassessed. Patient is alert, oriented x 3, equal unlabored respirations, skin warm/dry/pink. 05:04 Reassessment: Patient and/or family updated on plan of care and expected duration. Pain rg5 level reassessed. Patient states feeling better. Patient states symptoms have improved. Vital Signs: 01:14 BP 112 / 80; Pulse 103; Resp 20; Temp 98.7(O); Pulse Ox 100% on NC; FiO2 2 %; Weight oe 68.04 kg; Height 5 ft. 4 in. ; 04:15 BP 117 / 71; Pulse 98; Resp 19; Temp 98; Pulse Ox 97% on 3 lpm NC; Pain 0/10; rg5 01:14 Body Mass Index 25.75 (68.04 kg, 162.56 cm) oe 04:15 Pain Scale: Adult rg5 [place] Coma Score: 02:53 Eye Response: spontaneous(4). Motor Response: obeys commands(6). Verbal Response: rg5 oriented(5). Total: 15. ED Course: 01:14 Patient arrived in ED. kl 01:15 Dain Serrano PA is PHCP. cp 01:15 Dain Huff MD is Attending Physician. cp 01:35 Matthew Golden, ALFREDO is Primary Nurse. rg5 02:02 Triage completed. rg5 02:02 Arm band placed on right wrist. 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 EKG completed in triage. Results shown to MD. 02:05 XRAY Chest (1 view) In Process Unspecified. EDMS 02:05 EKG done, by ED staff, reviewed by Dain LYNCH. oe 02:06 Lactate w/ 2H reflex if indic. Sent. oe 02:06 Influenza Screen (a \T\ B) Sent. oe 02:06 SARS RAPID Sent. oe 02:06 Basic Metabolic Panel Sent. oe 02:06 CBC with Diff Sent. oe 02:06 LFT's Sent. oe 02:06 Magnesium Sent. oe 02:06 NT PRO-BNP Sent. oe 02:06 PT-INR Sent. oe 02:06 Troponin HS Sent. oe 02:08 Patient has correct armband on for positive identification. Fall risk band placed. Bed rg5 in low position. Call light in reach. Side rails up X 1. Provided Education on: call before getting out of bed. 02:10 Initial Neb Treatment Given as ordered. rg5 02:11 Maintain EMS IV. IV Flushed left antecubital intact. rg5 03:18 Anibal Beckett MD is Hospitalizing Provider. cp 05:04 No provider procedures requiring assistance completed. rg5 05:04 Door closed. Warm blanket given. rg5 05:05 Second set of blood cultures drawn by me. oe Administered Medications: 01:56 Drug: Ipratropium Inhalation Aerosol 0.5 mg Inhalation once Route: Inhalation; rg5 01:57 Drug: Levalbuterol Inhalation 1.25 mg Inhalation once Route: Inhalation; rg5 Medication: 02:08 VIS not applicable for this client. rg5 Outcome: 03:19 Decision to Hospitalize by Provider. cp 05:04 Admitted to Med/surg via stretcher, with oxygen, rg5 05:04 Condition: stable 05:04 Demonstrated understanding of medications, 05:35 Patient left the ED. rg5 Signatures: Dispatcher [employer] EDMS Georgiana Hughes RN Dain Nieves PA PA cp Drake Chapa oe Matthew Golden, RN RN rg5
--- NOTE | 2024-03-14 04:10 | P.HP ---
Certification for Inpatient Patient admitted to: Inpatient With expected LOS: >2 Midnights Practitioner: I am a practitioner with admitting privileges, knowledge of patient current condition, hospital course, and medical plan of care. Services: Services provided to patient in accordance with Admission requirements found in Title 42 Section 412.3 of the Code of Federal Regulations Patient History Date of Service: 03/14/24 Reason for admission: SOB History of Present Illness: 68yo female with a known history of COPD , CVA was brought to the emergency department with shortness of breath. Patient states that she has been having worsening of shortness of breath for the last 3 days and has been progressively worsening to the extent that she cannot even tolerate a minimal exertion. Denies any chest pain. No fever or chills. No nausea vomiting or diarrhea. Patient was found to be hypoxic as well. Patient was assessed in the ER and was admitted for COPD exacerbation and further care Allergies No Known Allergies Allergy (Unverified 09/01/21 14:40) Home medications list reviewed: Yes Home Medications: Albuterol Neb [Proventil 0.083% Neb Soln] 2.5 mg NEB Q4H PRN amp 01/21/22 Hydrocodone 7.5/APAP 325 [[place] 7.5/325 mg*] 1 tab PO Q4H PRN tab 01/21/22 Insulin -Regular Human [Novolin -R*] See Protocol SQ ACHS ml 01/21/22 Ipratropium Neb [Atrovent*] 0.5 mg NEB [id number] amp 01/21/22 Pharmacy Consult 1 ea XX DAILYPRN PRN each 01/21/22 Docusate [Colace Cap*] 100 mg PO BID cap 01/24/22 predniSONE [Prednisone*] 20 mg PO BID 3 Days #6 tab 01/24/22 - Past Medical/Surgical History Past Medical History: Reviewed- Non-Contributory -: COPD -: stroke Past Surgical History: Reviewed- Non-Contributory -: Unable to obtain - Social History Smoking Status: Former smoker Review of Systems 10-point ROS is otherwise unremarkable Physical Examination - Vital Signs Temperature: 98.2 F Blood Pressure: 126/72 Pulse: 82 Respirations: 18 Pulse Ox (%): 92 - Physical Exam General: Alert, Oriented x3, Cooperative, Mild distress HEENT: Atraumatic, Normocephalic Neck: Supple, JVD not distended Respiratory: Diminished, Crackles/rales, Expiratory wheezes Cardiovascular: Normal pulses, Regular rate/rhythm, Normal S1 S2 Capillary refill: <2 Seconds Gastrointestinal: Soft and benign, Non-distended, W/out hepatosplenomegaly, No tenderness Musculoskeletal: No clubbing, No swelling Integumentary: No rashes, No breakdown Neurological: Normal speech, Normal strength at 5/5 x4 extr, Cranial nerves 3-12 intact, Normal reflexes 2+ Lymphatics: No axilla or inguinal lymphadenopathy - Studies Laboratory Data (last 24 hrs) 03/14/24 03/14/24 03/14/24 01:57 01:57 01:57 WBC 13.40 H Hgb 10.8 L Hct 33.1 L Plt Count 360 PT 11.4 INR 1.04 Sodium 138 Potassium 3.7 BUN 17 Creatinine 0.95 Glucose 149 H Magnesium 2.3 Total Bilirubin 0.4 AST 13 L ALT 18 Alkaline Phosphatase 131 H Microbiology Data (last 24 hrs): 03/14/24 01:56 Nasopharnyx Influenza Type A Antigen Screen - Final 03/14/24 01:56 Nasopharnyx Influenza Type B Antigen Screen - Final Assessment and Plan - Problems (Diagnosis) (1) COPD exacerbation Current Visit: No Status: Acute Plan: COPD exacerbation Monitor closely on telemetry Started on bronchodilators Oxygen supplementation Steroids added Chest x-ray findings noted Pulmonology consult if not better in the a.m. Acute hypoxic respiratory failure On oxygen supplementation Will try to wean down oxygen requirement Continue bronchodilators , antitussives , and steroids Bronchitis Started on azithromycin Leukocytosis noted Will get a repeat CBC in a.m. GI/DVT prophylaxis Advanced directive full code Discharge Plan: Home Plan to discharge in: 48 Hours - Advance Directives Does patient have a Living Will: No Does patient have a Durable POA for Healthcare: No - Code Status/Comfort Care Code Status: Full Code Time Spent Managing Pts Care (In Minutes): 45
[2024-03-14] MEDS ORDERED: ONDANSETRON 4 MG/2 ML VIAL IV PRN (05:00)
[2024-03-14] MEDS ORDERED: GUAIFENESIN/DM 5 ML UCUP PO PRN (05:17)
[2024-03-14] MEDS: METHYLPREDNISOLONE 125 MG INJ IV SCH (06:00)
[2024-03-14] MEDS: AZITHROMYCIN 250 MG TAB PO SCH (06:23)
[2024-03-14 07:46] VITALS: BMI 23.6
[2024-03-14] MEDS: ENOXAPARIN 40 MG/0.4 ML SQ SCH (08:24)
[2024-03-14] MEDS: ALBUTEROL 2.5 MG/3 ML NEB SOL NEB PRN (10:36)
[2024-03-14] MEDS: IPRATROPIUM BROM 0.5MG/2.5ML NEB PRN (10:36)
--- NOTE | 2024-03-14 11:22 | P.PN ---
Date of Service: 03/14/24 Review of Systems 10-point ROS is otherwise unremarkable Physical Examination - Vital Signs reviewed - Physical Exam General: Alert, Oriented x3, Cooperative, Mild distress HEENT: Atraumatic, Normocephalic Neck: Supple, JVD not distended Respiratory: Expiratory wheezes, dyspnea with exertion Cardiovascular: Normal pulses, Regular rate/rhythm, Normal S1 S2 Capillary refill: <2 Seconds Gastrointestinal: Soft and benign, Non-distended, W/out hepatosplenomegaly, No tenderness Musculoskeletal: No clubbing, No swelling Integumentary: No rashes, No breakdown Neurological: Normal speech, Normal strength at 5/5 x4 extr, Cranial nerves 3-12 intact, Normal reflexes 2+ Lymphatics: No axilla or inguinal lymphadenopathy Assessment and Plan - Problems (Diagnosis) Acute hypoxic respiratory failure COPD exacerbation Monitor closely on telemetry Started on bronchodilators Oxygen supplementation Steroids added Chest x-ray findings noted Pulmonology consult if not better in the a.m. Will try to wean down oxygen requirement Continue bronchodilators , antitussives , and steroids acute Bronchitis Started on azithromycin Leukocytosis noted Will get a repeat CBC in a.m. GI/DVT prophylaxis Advanced directive full code Discharge Plan: Home Plan to discharge in: 48 Hours - Advance Directives Does patient have a Living Will: No Does patient have a Durable POA for Healthcare:
[2024-03-15] MEDS ORDERED: VANCOMYCIN 1 GM in NA CHLORIDE 0.9% 250 ML IVPB SCH (04:46)
[2024-03-15 05:43] LABS: Absolute Lymphocytes (CBC) 0.6 K/uL (0.7-4.9); Absolute Monocytes 0.3 K/uL (0.1-1.3); Absolute Neutrophil 13.8 K/uL (1.8-8.0); Basophils % 0.1 % (0-1.3); Hematocrit 30.7 % (36.0-45.0); Hemoglobin 10.4 g/dL (12.0-15.0); Lymphocytes % 4.1 % (15.3-44.8); MCH 30.1 pg (27.0-35.0); MCHC 33.8 g/dL (32.0-36.0); MCV 88.9 fL (80-100); MPV 8.1 fL (7.6-11.3); Monocytes % 1.9 % (3.3-12.3); Neutrophils % 93.9 % (41.7-73.7); Nucleated Red Blood Cells % 0.1 % (0-0); Platelets 331 thou/uL (152-406); RBC Red Blood Cell Count 3.46 M/uL (3.86-4.86)
[2024-03-15 05:57] LABS: ALT/SGPT 18 U/L (13-56); Albumin 3.2 g/dL (3.4-5.0); Albumin/Globulin Ratio 0.9 (1.1-1.8); Alkaline Phosphatase 108 U/L (45-117); Anion Gap 8.1 mEq/L (5.0-15.0); BUN Blood Urea Nitrogen 19 mg/dL (7-18); Bicarbonate 30 mEq/L (21-32); Bilirubin Total 0.3 mg/dL (0.2-1.0); Globulin 3.4 g/dL (2.3-3.5); Glomerular Filtration Rate 91 ml/min (=/>90); Glucose Level 135 mg/dL (74-106); Potassium 4.1 mEq/L (3.5-5.1); Protein, Total 6.6 g/dL (6.4-8.2); Sodium Level 137 mEq/L (136-145)
[2024-03-15 05:59] LABS: AST/SGOT < 10 U/L (15-37)
[2024-03-15] MEDS: VANCOMYCIN 1 GM in NA CHLORIDE 0.9% 250 ML IVPB SCH (06:14)
--- NOTE | 2024-03-15 07:55 | P.PN ---
Date of Service: 03/15/24 Subjective Mild shortness of breath with exertion, reports breathing better Review of Systems 10-point ROS is otherwise unremarkable Physical Examination - Vital Signs reviewed - Physical Exam General: Afebrile, no acute distress noted HEENT: Atraumatic, Normocephalic Neck: Supple, JVD not distended Respiratory: Equal unlabored, wheezing, Cardiovascular: Normal pulses, Regular rate/rhythm, Normal S1 S2 Capillary refill: <2 Seconds Gastrointestinal: Soft and benign, Non-distended, W/out hepatosplenomegaly, No tenderness Musculoskeletal: No clubbing, No swelling Integumentary: No rashes, No breakdown Neurological: Normal speech, Normal strength at 5/5 x4 extr, Assessment and Plan - Problems (Diagnosis) Acute hypoxic respiratory failure COPD exacerbation Home O2 dependent Monitor closely on telemetry Started on bronchodilators Oxygen supplementation Steroids added Chest x-ray findings noted Will try to wean down oxygen requirement Continue bronchodilators , antitussives , and steroids Leukocytosis Positive blood cultures-1 bottle repeat blood cultures negative On vancomycin, azithromycin Flu negative 03/15 Repeat blood cultures negative acute Bronchitis Started on azithromycin Leukocytosis noted Will get a repeat CBC in a.m. GI/DVT prophylaxis Advanced directive full code Discharge Plan: Home Plan to discharge in: 48 Hours - Advance Directives Does patient have a Living Will: No Does patient have a Durable POA for Healthcare: <Kelle Hood - Last Filed: 03/16/24 12:08> Chart has been reviewed. Events of the last 24 hours have been noted. Case discussed with LEONARD. I performed a substantial part of the MDM during this patient's care today. I personally made or approved the documented management plan and acknowledge its risk of complications. I agree with the findings and documentation provided in the LEONARD's notes Continue with treatments for COPD. Will also start patient on diuretics. Will see if this improves patient's respiratory status. Overall, clinically doing better anticipate discharge home over the next 24 to 48 hours. <Javed Tobin - Last Filed: 03/18/24 04:09>
[2024-03-15 09:13] LABS: Blood Morphology Comment NOT SEEN (NOT SEEN); Platelet Estimate ADEQ; White Blood Cell Scan OK (OK)
[2024-03-15] MEDS: ALBUTEROL 2.5 MG/3 ML NEB SOL NEB PRN (13:35)
[2024-03-15] MEDS: FUROSEMIDE 20 MG/ 2ML VIAL IV ONE ×2 (14:01→17:27)
--- NOTE | 2024-03-15 14:08 | EKG ---
Test Date: 2024-03-14 Test Time: 01:24:00 Print Line Inspector: ROSANA MEASUREMENT RESULTS: Intervals: Rate: 100 ND: 170 QRSD: 86 QT: 344 QTc: 443 [place] Neck: P: 81 ND: 170 QRS: 68 T: 89 INTERPRETIVE STATEMENTS: Normal sinus rhythm Normal ECG Compared to ECG 01/14/2022 14:27:14 Atrial abnormality no longer present T-wave abnormality no longer present Electronically Signed On 03-15-24 14:06:04 CDT by Bhavin Barrera
[2024-03-15] MEDS: METHYLPREDNISOLONE 125 MG INJ IV SCH (21:17)
[2024-03-16] MEDS: ACETAMINOPHEN 325 MG TABLET PO PRN (04:13)
[2024-03-16 06:48] LABS: Absolute Lymphocytes (CBC) 0.8 K/uL (0.7-4.9); Absolute Monocytes 0.9 K/uL (0.1-1.3); Absolute Neutrophil 9.7 K/uL (1.8-8.0); MCH 29.4 pg (27.0-35.0); MCHC 33.3 g/dL (32.0-36.0); MCV 88.3 fL (80-100); Monocytes % 8.3 % (3.3-12.3); Neutrophils % 84.7 % (41.7-73.7); Nucleated Red Blood Cells % 0.1 % (0-0); Platelets 354 thou/uL (152-406); Red Cell Distribution Width 13.8 % (12.1-15.2)
[2024-03-16 07:20] LABS: ALT/SGPT 18 U/L (13-56); Alkaline Phosphatase 79 U/L (45-117); Anion Gap 8.4 mEq/L (5.0-15.0); BUN Blood Urea Nitrogen 20 mg/dL (7-18); Bicarbonate 30 mEq/L (21-32); Bilirubin Total 0.4 mg/dL (0.2-1.0); Globulin 3.1 g/dL (2.3-3.5); Glomerular Filtration Rate 100 ml/min (=/>90); Glucose Level 120 mg/dL (74-106); Magnesium 2.1 mg/dL (1.6-2.4); NT PRO-BNP 1826 pg/mL (<125); Potassium 3.4 mEq/L (3.5-5.1); Protein, Total 6.1 g/dL (6.4-8.2); Sodium Level 135 mEq/L (136-145)
[2024-03-16 07:21] LABS: AST/SGOT < 10 U/L (15-37)
[2024-03-16] MEDS: FUROSEMIDE 20 MG/ 2ML VIAL IV SCH (07:57)
[2024-03-16] MEDS: POTASSIUM CL SA 10 MEQ TAB PO ONE (07:58)
--- NOTE | 2024-03-16 08:33 | RAD REPORT ---
EXAM DESCRIPTION: RAD - Chest Single View - 03/16/2024 6:38 am CLINICAL HISTORY: pneumonia Chest pain. COMPARISON: <Comparisons> FINDINGS: Portable technique limits examination quality. The lungs are grossly clear. The heart is normal in size. No displaced fractures.Cervical hardware pl ate. IMPRESSION: No acute intrathoracic process suspected.
--- NOTE | 2024-03-16 10:02 | RAD REPORT ---
EXAM DESCRIPTION: RAD - Chest Single View - 03/14/2024 2:04 am CLINICAL HISTORY: Female, 68 years old, SOB TECHNIQUE: 1 view COMPARISON: None available FINDINGS: SUPPORT DEVICES: Overlying leads and tubing. LUNGS/PLEURA: Basilar linear opacities likely represent scarring/atelectasis. No consolidation, pleur al effusion or pneumothorax. HEART/MEDIASTINUM: Normal size and configuration. Aortic atherosclerosis. OTHER: No acute osseous findings. Cervical fixation hardware. Chronic deformities of the right darlene l head and several right ribs. IMPRESSION: No acute cardiopulmonary findings. Electronically signed by: Clarke Astudillo MD 03/14/2024 02:22 AM CDT RP Due to temporary technical issues with the PACS/Fluency reporting system, reports are being signed by the in house radiologist without review as a courtesy to ensure prompt reporting. The interpreting r adiologist is fully responsible for the content of the report.
--- NOTE | 2024-03-16 11:54 | P.DS ---
Admission Date: 03/14/24 Discharge Date: 03/16/24 Reason for Admission: SOB Brief History of Present Illness: 68yo female with a known history of COPD , CVA was brought to the emergency department with shortness of breath. Patient states that she has been having worsening of shortness of breath for the last 3 days and has been progressively worsening to the extent that she cannot even tolerate a minimal exertion. Denies any chest pain. No fever or chills. No nausea vomiting or diarrhea. Patient was found to be hypoxic as well. Patient was assessed in the ER and was admitted for COPD exacerbation and further care - Physical Exam General: Alert, Oriented x3, Cooperative HEENT: Atraumatic, Normocephalic Neck: Supple, JVD not distended Respiratory: Diminished, unlabored Cardiovascular: Normal pulses, Regular rate/rhythm, Normal S1 S2 Capillary refill: <2 Seconds Gastrointestinal: Soft and benign, Non-distended, W/out hepatosplenomegaly, No tenderness Musculoskeletal: No clubbing, No swelling Integumentary: No rashes, No breakdown Neurological: Normal speech, Normal strength at 5/5 x4 extr, Cranial nerves 3-12 intact, Normal reflexes 2+ Lymphatics: No axilla or inguinal lymphadenopathy Hospital Course: 68yo female with a known history of COPD , CVA was brought to the emergency department with shortness of breath. Was noted to have COPD exacerbation, Condition improved with oxygen, nebulizers, steroids, Patient tolerating diet, stable for discharge to home with follow-up appointment with primary care physician. Follow-up with pulmonary after discharge PROBLEM: COPD exacerbation-refill nebulizers, steroids, IV antibiotics, discharged home on prednisone, azithromycin, resume home nebulizer Home O2 dependent-on 3 L at baseline Chest x-ray IMPRESSION: No acute cardiopulmonary findings. Lasix 20 mg daily, potassium supplement 10 mg daily Continue home medicines as previously prescribed GOAL: Clear understanding of disease process INSTRUCTIONS: Physician Discharge Instructions: -Follow-up with PCP in 1 to 2 weeks -Please call Dr. Tobin at [phone] if any questions regarding hospital stay -Please call nursing station at [phone] if any nursing or medication questions -Return to the emergency room if symptoms worsen Diet: ADA, low sodium Activity: Fall precautions <Kelle Hood - Last Filed: 03/16/24 15:23> Admission Date: 03/14/24 Discharge Date: 03/16/24 Hospital Course: Chart has been reviewed. Events of the last 24 hours have been noted. Case discussed with LEONARD. I performed a substantial part of the MDM during this patient's care today. I personally made or approved the documented management plan and acknowledge its risk of complications. I agree with the findings and documentation provided in the LEONARD's notes Patient is clinically done much better with nebs, steroids, and antibiotics. Also patient was diuresed and she feels much better. At this time, patient is clinically doing well and patient is stable for discharge home. <Javed Tobin - Last Filed: 03/18/24 04:10> Disposition: DC HOME/HOME HEALTH CARE Discharge Condition: GOOD Vital Signs/Physical Exam: Temp Pulse Resp BP Pulse Ox 98.0 F 78 20 112/79 96 03/16/24 08:00 03/16/24 08:00 03/16/24 08:00 03/16/24 08:00 03/16/24 08:00 Laboratory Data at Discharge: WBC 11.40 thou/uL (4.3-10.9) H 03/16/24 06:16 Hgb 10.0 g/dL (12.0-15.0) L 03/16/24 06:16 Hct 30.0 % (36.0-45.0) L 03/16/24 06:16 Plt Count 354 thou/uL (152-406) 03/16/24 06:16 PT 11.4 SECONDS (9.4-12.5) 03/14/24 01:57 INR 1.04 03/14/24 01:57 Sodium 135 mEq/L (136-145) L 03/16/24 06:16 Potassium 3.4 mEq/L (3.5-5.1) L D 03/16/24 06:16 BUN 20 mg/dL (7-18) H 03/16/24 06:16 Creatinine 0.58 mg/dL (0.55-1.02) 03/16/24 06:16 Glucose 120 mg/dL (74-106) H 03/16/24 06:16 Magnesium 2.1 mg/dL (1.6-2.4) 03/16/24 06:16 Total Bilirubin 0.4 mg/dL (0.2-1.0) 03/16/24 06:16 AST < 10 U/L (15-37) L 03/16/24 06:16 ALT 18 U/L (13-56) 03/16/24 06:16 Alkaline Phosphatase 79 U/L (45-117) D 03/16/24 06:16 <Kelle Hood - Last Filed: 03/16/24 15:23> Vital Signs/Physical Exam: Temp Pulse Resp BP Pulse Ox 97.0 F 92 H 20 100/68 96 03/16/24 12:00 03/16/24 12:00 03/16/24 12:00 03/16/24 12:00 03/16/24 12:00 Laboratory Data at Discharge: WBC 11.40 thou/uL (4.3-10.9) H 03/16/24 06:16 Hgb 10.0 g/dL (12.0-15.0) L 03/16/24 06:16 Hct 30.0 % (36.0-45.0) L 03/16/24 06:16 Plt Count 354 thou/uL (152-406) 03/16/24 06:16 PT 11.4 SECONDS (9.4-12.5) 03/14/24 01:57 INR 1.04 03/14/24 01:57 Sodium 135 mEq/L (136-145) L 03/16/24 06:16 Potassium 3.4 mEq/L (3.5-5.1) L D 03/16/24 06:16 BUN 20 mg/dL (7-18) H 03/16/24 06:16 Creatinine 0.58 mg/dL (0.55-1.02) 03/16/24 06:16 Glucose 120 mg/dL (74-106) H 03/16/24 06:16 Magnesium 2.1 mg/dL (1.6-2.4) 03/16/24 06:16 Total Bilirubin 0.4 mg/dL (0.2-1.0) 03/16/24 06:16 AST < 10 U/L (15-37) L 03/16/24 06:16 ALT 18 U/L (13-56) 03/16/24 06:16 Alkaline Phosphatase 79 U/L (45-117) D 03/16/24 06:16 <Javed Tobin - Last Filed: 03/18/24 04:10> Diet: AHA Activity: Fall precautions Time spent managing pt's care (in minutes): 55 <Kelle Hood - Last Filed: 03/16/24 15:23> <Javed Tobin - Last Filed: 03/18/24 04:10> Home Medications: Acetaminophen [Tylenol*] 650 mg PO Q4HP PRN tab 03/16/24 Albuterol Neb [Proventil 0.083% Neb Soln] 2.5 mg NEB [id number] PRN amp 03/16/24 Azithromycin Tab [Zithromax*] 250 mg PO DAILY 4 Days #4 tab 03/16/24 Furosemide [Lasix] 20 mg PO DAILY #30 tab 03/16/24 Guaif/Dm [Robitussin Dm*] 10 ml PO Q6H PRN 03/16/24 Ipratropium Neb [Atrovent*] 0.5 mg NEB [id number] PRN #0 amp 03/16/24 Potassium Chloride [K-Dur] 10 meq PO DAILY 30 Days #30 tab 03/16/24 predniSONE [Deltasone] 20 mg PO BID #20 tab 03/16/24 New Medications: Potassium Chloride [K-Dur] 10 meq PO DAILY 30 Days #30 tab Furosemide [Lasix] 20 mg PO DAILY #30 tab predniSONE [Deltasone] 20 mg PO BID #20 tab Azithromycin Tab [Zithromax*] 250 mg PO DAILY 4 Days #4 tab Physician Discharge Instructions: 68yo female with a known history of COPD , CVA was brought to the emergency department with shortness of breath. Was noted to have COPD exacerbation, Condition improved with oxygen, nebulizers, steroids, Patient tolerating diet, stable for discharge to home with follow-up appointment with primary care physician. Follow-up with pulmonary after discharge PROBLEM: COPD exacerbation-refill nebulizers, steroids, IV antibiotics, Home O2 dependent-on 3 L at baseline Chest x-ray IMPRESSION: No acute cardiopulmonary findings. Lasix 20 mg daily, potassium supplement 10 mg daily Continue home medicines as previously prescribed GOAL: Clear understanding of disease process INSTRUCTIONS: Physician Discharge Instructions: -Follow-up with PCP in 1 to 2 weeks -Please call Dr. Tobin at [phone] if any questions regarding hospital stay -Please call nursing station at [phone] if any nursing or medication questions -Return to the emergency room if symptoms worsen Diet: ADA, low sodium Activity: Fall precautions Followup: Moi Gerardo MD [ACTIVE - CAN ADMIT] - NONE,NONE [Primary Care Provider] -
[2024-03-16 12:28] VITALS: BP 100/68; TEMP 97
[2024-03-16 16:38] VITALS: O2SAT 94
== END 2024-03-16 13:34 | disposition home health service (06) | DRG 190 ==
LOC: ER 01:00 → 2ND 03:45
PROVIDERS: ADMIT Family Medicine; ATTEND Hospitalist
DX: J44.1 Chronic obstructive pulmonary disease with (acute) exacerbation (principal); J96.01 Acute respiratory failure with hypoxia; J20.9 Acute bronchitis, unspecified; J44.0 Chronic obstructive pulmonary disease with (acute) lower respiratory infection; E78.00 Pure hypercholesterolemia, unspecified; Z79.4 Long term (current) use of insulin; Z99.81 Dependence on supplemental oxygen; Z11.52 Encounter for screening for COVID-19; Z79.52 Long term (current) use of systemic steroids; Z86.73 Personal history of transient ischemic attack (TIA), and cerebral infarction without residual deficits; Z91.013 Allergy to seafood; Z79.899 Other long term (current) drug therapy; Z87.891 Personal history of nicotine dependence; Z91.048 Other nonmedicinal substance allergy status
CPT/HCPCS: 36415; 71045; 80048; 80053; 80076; 82947; 83605; 83735; 83880; 84145; 84484; 85025; 85610; 87040; 87077; 87186; 87205; 87804; 87811; 93005; 94640; 94760; 97161; 97530; 99285; J1650; J1940; J2919; J7050; J7613; J7614; J7644

== ENCOUNTER 2024-08-25 13:16 | Inpatient (IN) | payer OTHER ==
--- OUTSIDE RECORDS SUMMARY | 2024-08-25 13:29 | XMS REPORT | Continuity of Care Document ---
Author Name Unknown Address [address] [place] [address] [facility] [address] [place] [address] Care Team Providers Care Recyclable Products Sorter Name Role Phone Dr. Amanda Primary Care Physician [phone] JAHAIRA DIAMOND Attending Clinician Unavailab JAHAIRA Baptiste Attending Clinician Unavailab Jahaira Baptiste NP Attending Clinician [phone] Jessica Graham MD Attending Clinician +[phone] Gay Miles Attending Clinician + GAY CRYSTAL Attending Clinician Unavailable Erica Ruiz Attending Clinician [phone], [facility] Attending Clinician Unavailable Gay Miles Attending Clinician [phone] Doctor Unassigned, Jobos Attending Clinician U linda Ye MD, Israel Wall Attending Clinician [phone] ISRAEL YE Attending Clinician Unavailfestus mcmahon Pob, [facility] Main Attending Clinician Unavailgardenia Fontenot BURLING AND JOINING SUPERVISOR, Kemi L Attending Clinician [phone] GIN ERNST Attending Clinician Unavailable Faculty, Pulmonary Attending Clinician Unavailab AMADO Blanco Attending Clinician UnavailMAUREEN Snider Attending Clinician Jimmy Mercado MD, Maureen Mortensen Attending Clinician [phone] PUJA FOLEY Attending Clinician Unavailable PUJA FOLEY Attending Clinician Unavailable JOYCE SOLANO Attending Clinician Unavailable Nida MONCADA, Sarai Coronado Attending Clinician [phone] Deena MONCADA, Kyra Attending Clinician [phone] Dutch Belle MD Attending Clinician [phone] Krish MONCADA, hCelo Attending [facility] [place] MONCADA, Nereida Attending Clinician + [phone] NEREIDA NORMAN Attending Clinician Unavailable Donnie SALES CENTER ASSOCIATE, Uyen Attending Clinician [phone] Marisela FUENTES, Savanah Jarvis Attending Clinician Unavailab Kylee Blank Attending Clinician [phone] KYLEE RICHTER Attending Clinician Unavailable Puja Foley DO Attending Clinician [phone] JESSICA GRAHAM Attending Clinician Unavailable Payton Schwarz Attending Clinician [phone] Aneuyd Gomes Attending Clinician [phone] Shawn MONCADA, Reji Attending Clinician [phone] Joyce Solano MD Attending Clinician [phone] Melanie Carter Attending Clinician [phone] MELANIE PALMER Attending Clinician UnavailYARELY Watson Attending Clinician Unavailable Provider, [facility] Attending Clinician Un available Laurel MONCADA, Froilan Attending Clinician [phone] Chester FUENTES, Debby M Attending Clinician [phone] Christina Lowe DO Attending Clinician [phone] Bibiana MONCADA, Alex Valverde Attending Clinician [phone] Asia MONCADA, Virginia Kumari Attending Clinician [phone] MACHO PORTER Attending Clinician Unavaila ble Only, Adc Test Attending Clinician Unavailable Macho Porter MD Attending Clinician + [phone] René MONCADA, Tio Chong Attending Clinician [phone] TIO JADE Attending Clinician Unavail able TIO JADE Attending Clinician Unavail able ANYI CHOI Attending Clinician Unavailable ISRAEL YE K.HBreezy Admitting Clinician Unavaila VAUGHN Vargas Admitting Clinician Unavailab KYRA Guidry Admitting Clinician Unavailgardenia Escobar MD, Reji Admitting Clinician [phone] Asia MONCADA, Virginia Kumari Admitting Clinician [phone] ANYI CHOI Admitting Clinician Unavailable Payers Payer Name Policy Type Policy Number Effective Date Expirati on Date Source MEDICARE PART A \T\ [id number] 1998 00:00:00 [place] [id number] 2020 00:00:00 Problems Condition Name Condition Details Condition Category Status Onset Date Resolution Date Last Treatment Date Treating Clinician Comments Source At risk for falls At risk for falls Disease Active 03-23 00:00: 00 [facility] Unspecifie d abnormalit ies of gait and mobility Unspecifie d abnormalit ies of gait and mobility Disease Active 03-23 00:00: 00 [facility] Bacteremia Bacteremia Disease Active 2020-09 00:00: 00 [facility] COPD exacerbati on COPD exacerbati on Disease Recurre nce 2020-09 00:00: 00 [facility] SOB (shortness of breath) SOB (shortness of breath) Disease Active 2019-09 0-31 00:00: 00 [facility] Stroke Stroke Disease Active 2018-09 00:00: 00 [facility] Hypothyroi dism (acquired) Hypothyroi dism (acquired) Disease Active 01-06 00:00: 00 Overview: Formattin g of this note might be different from the original. ICD10 Diagnosis [facility] Customer Service Associate Utility [facility] Vitamin D deficiency Vitamin D deficiency Disease Active 01-06 00:00: 00 Overview: Formattin g of this note might be different from the original. ICD10 Diagnosis [facility] Customer Service Associate Utility [facility] Osteoporos is Osteoporos is Disease Active 01-06 00:00: 00 [facility] CVA (cerebral vascular accident) CVA (cerebral vascular accident) Disease Active 01-06 00:00: 00 [facility] Joint contractur e of hand, right Joint contractur e of hand, right Disease Active 01-06 00:00: 00 [facility] Tobacco abuse Tobacco abuse Disease Active 01-06 00:00: 00 [facility] Marijuana abuse Marijuana abuse Disease Active 01-06 00:00: 00 [facility] COPD exacerbati on COPD exacerbati on Disease Active 01-06 00:00: 00 [facility] Pneumonia due to COVID-19 virus Pneumonia due to COVID-19 virus Disease Resolve d 05-03 00:00: 00 2021-08-04 00:00:00 2021-08-04 07:32:56 [facility] Acute respirator y failure due to COVID-19 Acute respirator y failure due to COVID-19 Disease Resolve d 8 00:00: 00 2021-08-04 00:00:00 2021-08-04 07:32:54 [facility] Allergies, Adverse Reactions, Alerts Allergy Name Allergy Type Status Severity Reaction(s) Onset Date Inactive Date Treating Clinician Comments Source SHELLFIS H DERIVED Allergy Active High Sob 2019-09 00:00: 00 [facility] Shellfis h Derived Drug Allergy Active Shortness Of Breath, Swelling 2019-09 00:00: 00 [facility] Shellfis h Derived Propensi ty to adverse reaction s Active Swelling 2019-09 00:00: 00 [facility] SHELLFIS H DERIVED DRUG INGREDI Active SOB 2019-09 00:00: 00 [facility] CODEINE Allergy Active High Swelling 12-18 00:00: 00 [facility] Codeine Drug Allergy Active Swelling 4 00:00: 00 throat [facility] Codeine Propensi ty to adverse reaction s Active Swelling 12-18 00:00: 00 throat [facility] CODEINE DRUG INGREDI Active High Swelling 12-18 00:00: 00 [facility] IODINE Allergy Active High Swelling 01-06 00:00: 00 [facility] Iodine Drug Allergy Active Swelling 01-06 00:00: 00 (shell fish) throat swells [facility] Iodine Propensi ty to adverse reaction s Active Swelling 01-06 00:00: 00 (shell fish) throat swells [facility] IODINE DRUG INGREDI Active High Swelling 01-06 00:00: 00 [facility] Social History Social Habit Start Date Stop Date Quantity Comments Source Gender identity [facility] Sexual orientation U [facility] History SDOH Alcohol Std Drinks [facility] History SDOH Alcohol Binge [facility] History SDOH Alcohol Comment [facility] Cigarettes smoked current (pack per day) - Reported 2024-04-14 00:00:00 2024-04-14 00:00:00 [facility] Cigarette pack-years 2024-04-14 00:00:00 2024-04-14 00:00:00 [facility] Tobacco use and exposure 2024-04-14 00:00:00 2024-04-14 00:00:00 Smokeless tobacco non-user [facility] History of Social function 2024-04-14 00:00:00 2024-04-14 00:00:00 [facility] Alcoholic beverage intake 2024-04-14 00:00:00 2024-04-14 00:00:00 .29 /d [facility] Tobacco Comment 2022-10-26 00:00:00 2022-10-26 00:00:00 Used to smoke 2 packs per day- quit aug 2020 [facility] Exposure to SARS-CoV-2 (event) 2022-09-23 00:00:00 2022-10-03 09:59:00 Not sure [facility] Alcohol intake 2021-09-08 00:00:00 2021-09-08 00:00:00 Lifetime non-drinker (finding) [facility] History SDOH Alcohol Frequency 2021-09-08 00:00:00 2021-09-08 00:00:00 1 [facility] History of tobacco use 1985-06-20 00:00:00 2020-06-20 00:00:00 Cigarette Smoker [facility] Sex Assigned At 1955 00:00:00 1955 00:00:00 [facility] Smoking Status Start Date Stop Date Source Ex-smoker 2024-04-14 00:00:00 2024-04-14 00:00:00 [facility] Medications Ordered Medication Name Filled Medication Name Start Date Stop Date Current Medication? Ordering Clinician Indication Dosage Frequency Signature (SIG) Comments Components Source fluticasone -umeclidin- vilanter (TRELEGY ELLIPTA) 200-62.5-25 mcg inhaler 2023-09 00:00: 00 Yes [id number] 1{puff} Inhale 1 Puff in the morning. [facility] fluticasone -umeclidin- vilanter (TRELEGY ELLIPTA) 100-62.5-25 mcg inhaler 2023-09 00:00: 00 Yes [id number] 1{puff} Inhale 1 Puff in the morning. [facility] fluticasone propion-schuyler meteroL 250-50 mcg/dose inhalation disk 2024 00:00: 00 Yes [id number] 1{puff} INHALE ONE PUFF BY MOUTH EVERY 12 HOURS [facility] TRELEGY ELLIPTA 200-62.5-25 mcg inhaler 06-16 00:00: 00 07-23 00:00 :00 No [id number] INHALE 1 PUFF BY MOUTH EVERY MORNING [facility] ERGOCALCIFE ROL, VITAMIN D2, 1,250 mcg (50,000 unit) capsule 06-04 00:00: 00 Yes [id number] TAKE 1 CAPSULE BY MOUTH ONCE WEEKLY [facility] fluticasone propion-schuyler meteroL (ADVAIR DISKUS) 250-50 mcg/dose inhalation disk 04-14 00:00: 00 07-16 00:00 :00 No [id number] 1{puff} Inhale 1 Puff every 12 (twelve) hours. [facility] ERGOCALCIFE ROL, VITAMIN D2, 1,250 mcg (50,000 unit) capsule 02-11 00:00: 00 06-04 00:00 :00 No [id number] TAKE 1 CAPSULE BY MOUTH ONCE WEEKLY [facility] TRELEGY ELLIPTA 200-62.5-25 mcg inhaler 12-30 00:00: 00 06-16 00:00 :00 No [id number] INHALE 1 PUFF BY MOUTH EVERY MORNING [facility] levothyroxi ne 25 mcg tablet 11-06 00:00: 00 Yes [id number] 25ug Take 1 tablet by mouth every morning. [facility] sulfur hexafluorid e microsphr (LUMASON) injection 5 mL 10-26 14:40: 00 10-26 14:40 :00 No [id number] 5mL 5 mL, Intravenou s, ONCE, 1 dose, On Sun10/26/23 at 0900, Routine
event staff member approving Restricted medication : ZAK STRONG [facility] DULoxetine 30 mg capsule 10-26 09:38: 35 Yes 30mg Take 1 capsule by mouth in the morning. Take with 60mg capsule [facility] DULoxetine 60 mg capsule 10-26 09:38: 35 Yes 60mg Take 1 capsule by mouth in the morning. Take with 30mg capsule [facility] TRELEGY ELLIPTA 200-62.5-25 mcg DsDv 2- 00:00: 00 12-30 00:00 :00 No [id number] INHALE ONE PUFF BY MOUTH EVERY MORNING [facility] ERGOCALCIFE ROL, VITAMIN D2, 1,250 mcg (50,000 unit) capsule - 00:00: 00 02-11 00:00 :00 No [id number] TAKE 1 CAPSULE BY MOUTH ONCE WEEKLY [facility] TRELEGY ELLIPTA 200-62.5-25 mcg DsDv 2022-09 2- 00:00: 00 10-22 00:00 :00 No [id number] INHALE ONE PUFF BY MOUTH EVERY MORNING [facility] ERGOCALCIFE ROL, VITAMIN D2, 1,250 mcg (50,000 unit) capsule 2022-09 0-06 00:00: 00 10-16 00:00 :00 No [id number] TAKE 1 CAPSULE BY MOUTH ONCE WEEKLY [facility] TRELEGY ELLIPTA 200-62.5-25 mcg DsDv 2022-09 0-05 00:00: 00 08-20 00:00 :00 No [id number] INHALE ONE PUFF BY MOUTH EVERY MORNING [facility] DULoxetine 60 mg capsule 05-22 11:36: 25 Yes 60mg Take 60 mg by mouth in the morning. Take with 30mg capsule [facility] DULoxetine 30 mg capsule 05-22 11:36: 24 Yes 30mg Take 30 mg by mouth in the morning. Take with 60mg capsule [facility] ipratropium 0.02 % nebulizer solution 8-10 00:00: 00 Yes [id number] .5mg Inhale 2.5 mL every 8 (eight) hours as needed for Wheezing or Shortness of Breath. [facility] albuterol 2.5 mg /3 mL (0.083 %) nebulizer solution 04-26 00:00: 00 Yes [id number] 2.5mg Inhale 3 mL every 4 (four) hours as needed for Wheezing or Shortness of Breath. [facility] albuterol 2.5 mg/0.5 mL nebulizer solution 04-26 00:00: 00 04-26 00:00 :00 No [id number] 2.5mg Inhale 0.5 mL every 6 (six) hours as needed for Wheezing. [facility] TRELEGY ELLIPTA 200-62.5-25 mcg DsDv 04-19 00:00: 00 06-21 00:00 :00 No [id number] INHALE ONE PUFF BY MOUTH EVERY MORNING [facility] dexamethaso ne (DECADRON) injection 8 mg 03-23 18:00: 00 03-23 17:16 :00 No [id number] 8mg [facility] methylPREDN ISolone (MEDROL, STORMY,) 4 mg tablets 03-23 00:00: 00 04-26 00:00 :00 No [id number] Take by mouth SEE-INSTRU CTIONS. follow package directions [facility] fluticasone -umeclidin- vilanter (TRELEGY ELLIPTA) 200-62.5-25 mcg DsDv 03-23 00:00: 00 04-19 00:00 :00 No [id number] 1{puff} Inhale 1 Puff in the morning. [facility] ERGOCALCIFE ROL, VITAMIN D2, 1,250 mcg (50,000 unit) capsule -12 00:00: 00 06-22 00:00 :00 No [id number] TAKE ONE CAPSULE BY MOUTH ONCE WEEKLY [facility] albuterol 90 mcg/actuati on inhaler 3-09 00:00: 00 Yes [id number] 2{puff} Inhale 2 Puffs every 4 (four) hours as needed for Wheezing or Shortness of Breath. [facility] ergocalcife rol, vitamin d2, 1,250 mcg (50,000 unit) capsule 2-13 00:00: 00 02-26 00:00 :00 No [id number] 83913F Take 1 capsule by mouth weekly. [facility] traMADoL 50 mg tablet 2-05 00:00: 00 03-23 00:00 :00 No TAKE 1 TABLET BY MOUTH EVERY 8 HOURS NEEDED [facility] CLOPIDOGREL 75 mg tablet 1-27 00:00: 00 Yes [id number] TAKE ONE TABLET BY MOUTH DAILY [facility] LEVOTHYROXI NE 25 mcg tablet 2021-09 2-14 00:00: 00 11-05 00:00 :00 No [id number] TAKE ONE TABLET BY MOUTH EVERY MORNING [facility] ATORVASTATI N 20 mg tablet 2021-09 0-17 00:00: 00 Yes [id number] TAKE ONE TABLET BY MOUTH AT BEDTIME [facility] DULoxetine 30 mg capsule 2021-0914 11:08: 48 Yes 30mg Take 30 mg by mouth in the morning. Take with 60mg capsule [facility] DULoxetine 60 mg capsule 2021-0914 11:08: 48 Yes 60mg Take 60 mg by mouth in the morning. Take with 30mg capsule [facility] DULoxetine 30 mg capsule 05-01 12:48: 17 Yes 30mg Take 1 capsule by mouth in the morning. Take with 60mg capsule [facility] DULoxetine 60 mg capsule 05-01 12:48: 17 Yes 60mg Take 1 capsule by mouth in the morning. Take with 30mg capsule [facility] tiotropium 18 mcg inhalation 05-01 00:00: 00 03-23 00:00 :00 No [id number] 18ug Inhale 1 capsule in the morning. [facility] albuterol 90 mcg/actuati on inhaler 05-01 00:00: 00 11-23 00:00 :00 No [id number] 2{puff} Inhale 2 Puffs every 4 (four) hours as needed for Wheezing or Shortness of Breath. [facility] albuterol 2.5 mg /3 mL (0.083 %) nebulizer solution 01-11 00:00: 00 04-26 00:00 :00 No [id number] 2.5mg Inhale 3 mL every 4 (four) hours. May also nebulize one extra every 6 hours. [facility] polyethylen e glycol (GLYCOLAX) 17 gram packet 2020-09 00:00: 00 09-17 23:59 :00 No 17g Take 17 g by mouth daily as needed (Constipat ion) for up to 3 days. [facility] vancomycin- water inject, PEG, (VANCO READY) 1.25 gram/250 mL PgBk 2020-09 00:00: 00 09-16 23:59 :00 No 1250mg Q24H Inject 250 mLs (1,250 mg total) intravenou sly daily for 2 days. [facility] clopidogreL (PLAVIX) 75 mg tablet 2020-09 00:00: 00 Yes 1{tbl} QD Take 1 tablet by mouth daily. [facility] levothyroxi ne (SYNTHROID, LEVOTHROID) 25 MCG tablet 2020-09 00:00: 00 Yes 1{tbl} QD Take 1 tablet by mouth every morning. [facility] clopidogreL 75 mg tablet 2020-09 00:00: 00 10-13 00:00 :00 No [id number] 75mg Take 1 tablet by mouth daily. [facility] levothyroxi ne 25 mcg tablet 2020-09 00:00: 00 08-30 00:00 :00 No [id number] 25ug Take 1 tablet by mouth every morning. [facility] predniSONE (DELTASONE) 50 MG tablet 2020-09 00:00: 00 Yes 1{tbl} QD Take 1 tablet by mouth daily. [facility] albuterol 90 mcg/actuati on inhaler 2020-09 00:00: 00 05-01 00:00 :00 No [id number] 2{puff} Inhale 2 Puffs every 4 (four) hours as needed for Wheezing or Shortness of Breath. [facility] predniSONE 50 mg tablet 2020-09 00:00: 00 05-01 00:00 :00 No [id number] 50mg Take 1 tablet by mouth daily. [facility] benzonatate 200 mg capsule 2020-09 00:00: 00 05-01 00:00 :00 No [id number] 200mg Take 1 capsule by mouth 3 (three) times daily as needed for Cough. [facility] famotidine 40 mg tablet 2020-09 00:00: 00 Yes [id number] 40mg Take 1 tablet by mouth daily. [facility] budesonide- formoteroL (SYMBICORT) 160-4.5 mcg/actuati on inhaler 2020-09 00:00: 00 05-01 00:00 :00 No [id number] 2{puff} Inhale 2 Puffs 2 (two) times daily. [facility] albuterol (PROAIR HFA) 90 mcg/actuati on inhaler 2020-09 00:00: 00 05-01 00:00 :00 No 2{puff} Inhale 2 Puffs every 6 (six) hours as needed for Wheezing or Shortness of Breath. [facility] amitriptyli ne (ELAVIL) 50 MG tablet 05-30 00:00: 00 Yes 3{tbl} QD Take 3 tablets by mouth nightly. [facility] amitriptyli ne 50 mg tablet 05-30 00:00: 00 Yes [id number] 150mg Take 3 tablets by mouth at bedtime. [facility] ARIPiprazol e 2 mg tablet 05-12 00:00: 00 Yes 2mg Take 1 tablet by mouth at bedtime. [facility] benzonatate (TESSALON PERLES) 100 mg capsule 10-13 00:00: 00 05-01 00:00 :00 No [id number] 100mg Take 1 capsule by mouth 3 (three) times daily. [facility] atorvastati n 20 mg tablet 09-23 00:00: 00 07-03 00:00 :00 No [id number] 20mg Take 1 tablet by mouth at bedtime. [facility] ipratropium 0.02 % nebulizer solution 2019-0918 00:00: 00 04-26 00:00 :00 No [id number] .5mg Inhale 2.5 mL every 8 (eight) hours as needed for Wheezing or Shortness of Breath. [facility] aspirin 81 mg chewable tablet 2019-09 00:00: 00 05-01 00:00 :00 No [id number] 81mg Take 1 tablet by mouth daily. [facility] Immunizations Ordered Immunization Name Filled Immunization Name Date Status Comments Source Influenza Virus Vaccine,quad Im,preserve Free 65+ (FLUAD) 2023-10-26 00:00:00 Completed [facility] SARS-COV-2 COVID 19 KASEY SUCROSE VACCINE 12+, , 0.3 ML (30 MCG), IM PFIZER (JUDD TOP) 2023-10-26 00:00:00 Completed Influenza Virus Vaccine,quad Im,preserve Free 65+ (FLUAD) 2023-10-26 00:00:00 Completed [facility] SARS-COV-2 COVID 19 KASEY SUCROSE VACCINE 12+, , 0.3 ML (30 MCG), IM PFIZER (JUDD TOP) 2023-10-26 00:00:00 Completed SARS-COV-2 COVID-19 KASEY-SUCROSE VACCINE 12 YRS+, BIVALENT 0.3ML, IM, (PFIZER JUDD TOP BOOSTER) 2022-10-26 00:00:00 Completed [facility] SARS-COV-2 COVID-19 KASEY-SUCROSE VACCINE 12 YRS+, BIVALENT 0.3ML, IM, (PFIZER JUDD TOP BOOSTER) 2022-10-26 00:00:00 Completed [facility] SARS-COV-2 COVID-19 KASEY-SUCROSE VACCINE 12 YRS+, BIVALENT 0.3ML, IM, (PFIZER JUDD TOP BOOSTER) 2022-10-26 00:00:00 Completed [facility] SARS-COV-2 COVID-19 KASEY-SUCROSE VACCINE 12 YRS+, BIVALENT 0.3ML, IM, ([facility] BOOSTER) 2022-10-26 00:00:00 Completed [facility] SARS-COV-2 COVID-19 KASEY-SUCROSE VACCINE 12 YRS+, BIVALENT 0.3ML, IM, ([facility] BOOSTER) 2022-10-26 00:00:00 Completed [facility] SARS-COV-2 COVID-19 KASEY-SUCROSE VACCINE 12 YRS+, BIVALENT 0.3ML, IM, ([facility]) 2022-10-26 00:00:00 Completed [facility] SARS-COV-2 COVID-19 KASEY-SUCROSE VACCINE 12 YRS+, BIVALENT 0.3ML, IM, ([facility]) 2022-10-26 00:00:00 Completed [facility] SARS-COV-2 COVID-19 KASEY-SUCROSE VACCINE 12 YRS+, BIVALENT 0.3ML, IM, ([facility]) 2022-10-26 00:00:00 Completed [facility] SARS-COV-2 COVID-19 KASEY-SUCROSE VACCINE 12 YRS+, BIVALENT 0.3ML, IM, ([facility]) 2022-10-26 00:00:00 Completed [facility] SARS-COV-2 COVID-19 KASEY-SUCROSE VACCINE 12 YRS+, BIVALENT 0.3ML, IM, ([facility]) 2022-10-26 00:00:00 Completed [facility] SARS-COV-2 COVID-19 KASEY-SUCROSE VACCINE 12 YRS+, BIVALENT 0.3ML, IM, ([facility]) 2022-10-26 00:00:00 Completed [facility] SARS-COV-2 COVID-19 KASEY-SUCROSE VACCINE 12 YRS+, BIVALENT 0.3ML, IM, ([facility]) 2022-10-26 00:00:00 Completed [facility] SARS-COV-2 COVID-19 KASEY-SUCROSE VACCINE 12 YRS+, BIVALENT 0.3ML, IM, ([facility]) 2022-10-26 00:00:00 Completed [facility] SARS-COV-2 COVID-19 KASEY-SUCROSE VACCINE 12 YRS+, BIVALENT 0.3ML, IM, (PFIZER JUDD TOP) 2022-10-26 00:00:00 Completed [facility] SARS-COV-2 COVID-19 KASEY-SUCROSE VACCINE 12 YRS+, BIVALENT 0.3ML, IM, (PFIZER JUDD TOP) 2022-10-26 00:00:00 Completed [facility] SARS-COV-2 COVID-19 KASEY-SUCROSE VACCINE 12 YRS+, BIVALENT 0.3ML, IM, ([facility] JUDD TOP) 2022-10-26 00:00:00 Completed [facility] SARS-COV-2 COVID-19 KASEY-SUCROSE VACCINE 12 YRS+, BIVALENT 0.3ML, IM, (PFIZER JUDD TOP) 2022-10-26 00:00:00 Completed [facility] SARS-COV-2 COVID-19 KASEY-SUCROSE VACCINE 12 YRS+, BIVALENT 0.3ML, IM, ([facility] JUDD TOP) 2022-10-26 00:00:00 Completed [facility] SARS-COV-2 COVID-19 KASEY-SUCROSE VACCINE 12 YRS+, BIVALENT 0.3ML, IM, (PFIZER JUDD TOP) 2022-10-26 00:00:00 Completed [facility] SARS-COV-2 COVID-19 KASEY-SUCROSE VACCINE 12 YRS+, BIVALENT 0.3ML, IM, (PFIZER JUDD TOP) 2022-10-26 00:00:00 Completed [facility] SARS-COV-2 COVID-19 KASEY-SUCROSE VACCINE 12 YRS+, BIVALENT 0.3ML, IM, ([facility] JUDD TOP) 2022-10-26 00:00:00 Completed [facility] SARS-COV-2 COVID-19 KASEY-SUCROSE VACCINE 12 YRS+, BIVALENT 0.3ML, IM, ([facility] JUDD TOP) 2022-10-26 00:00:00 Completed [facility] SARS-COV-2 COVID-19 KASEY-SUCROSE VACCINE 12 YRS+, BIVALENT 0.3ML, IM, (PFIZER JUDD TOP) 2022-10-26 00:00:00 Completed SARS-COV-2 COVID-19 KASEY-SUCROSE VACCINE 12 YRS+, BIVALENT 0.3ML, IM, ([facility] JUDD TOP) 2022-10-26 00:00:00 Completed Pneumococcal 20 Conjugate, PCV20 (Prevnar 20) 2022-06-30 00:00:00 Completed [facility] Influenza Virus Vaccine Quad IM, Preserv and ABX Free 6 MO-64 YRS 2022-06-30 00:00:00 Completed [facility] Pneumococcal 20 Conjugate, PCV20 (Prevnar 20) 2022-06-30 00:00:00 Completed [facility] Influenza Virus Vaccine Quad IM, Preserv and ABX Free 6 MO-64 YRS 2022-06-30 00:00:00 Completed [facility] Pneumococcal 20 Conjugate, PCV20 (Prevnar 20) 2022-06-30 00:00:00 Completed [facility] Influenza Virus Vaccine Quad IM, Preserv and ABX Free 6 MO-64 YRS 2022-06-30 00:00:00 Completed [facility] Pneumococcal 20 Conjugate, PCV20 (Prevnar 20) 2022-06-30 00:00:00 Completed [facility] Influenza Virus Vaccine Quad IM, Preserv and ABX Free 6 MO-64 YRS 2022-06-30 00:00:00 Completed [facility] Pneumococcal 20 Conjugate, PCV20 (Prevnar 20) 2022-06-30 00:00:00 Completed [facility] Influenza Virus Vaccine Quad IM, Preserv and ABX Free 6 MO-64 YRS 2022-06-30 00:00:00 Completed [facility] Pneumococcal 20 Conjugate, PCV20 (Prevnar 20) 2022-06-30 00:00:00 Completed [facility] Influenza Virus Vaccine Quad IM, Preserv and ABX Free 6 MO-64 YRS 2022-06-30 00:00:00 Completed [facility] Pneumococcal 20 Conjugate, PCV20 (Prevnar 20) 2022-06-30 00:00:00 Completed [facility] Influenza Virus Vaccine Quad IM, Preserv and ABX Free 6 MO-64 YRS 2022-06-30 00:00:00 Completed [facility] Pneumococcal 20 Conjugate, PCV20 (Prevnar 20) 2022-06-30 00:00:00 Completed [facility] Influenza Virus Vaccine Quad IM, Preserv and ABX Free 6 MO-64 YRS 2022-06-30 00:00:00 Completed [facility] Pneumococcal 20 Conjugate, PCV20 (Prevnar 20) 2022-06-30 00:00:00 Completed [facility] Influenza Virus Vaccine Quad IM, Preserv and ABX Free 6 MO-64 YRS 2022-06-30 00:00:00 Completed [facility] Pneumococcal 20 Conjugate, PCV20 (Prevnar 20) 2022-06-30 00:00:00 Completed [facility] Influenza Virus Vaccine Quad IM, Preserv and ABX Free 6 MO-64 YRS 2022-06-30 00:00:00 Completed [facility] Pneumococcal 20 Conjugate, PCV20 (Prevnar 20) 2022-06-30 00:00:00 Completed [facility] Influenza Virus Vaccine Quad IM, Preserv and ABX Free 6 MO-64 YRS 2022-06-30 00:00:00 Completed [facility] Pneumococcal 20 Conjugate, PCV20 (Prevnar 20) 2022-06-30 00:00:00 Completed [facility] Influenza Virus Vaccine Quad IM, Preserv and ABX Free 6 MO-64 YRS 2022-06-30 00:00:00 Completed [facility] Pneumococcal 20 Conjugate, PCV20 (Prevnar 20) 2022-06-30 00:00:00 Completed [facility] Influenza Virus Vaccine Quad IM, Preserv and ABX Free 6 MO-64 YRS 2022-06-30 00:00:00 Completed [facility] Pneumococcal 20 Conjugate, PCV20 (Prevnar 20) 2022-06-30 00:00:00 Completed [facility] Influenza Virus Vaccine Quad IM, Preserv and ABX Free 6 MO-64 YRS 2022-06-30 00:00:00 Completed [facility] Pneumococcal 20 Conjugate, PCV20 (Prevnar 20) 2022-06-30 00:00:00 Completed [facility] Influenza Virus Vaccine Quad IM, Preserv and ABX Free 6 MO-64 YRS 2022-06-30 00:00:00 Completed [facility] Pneumococcal 20 Conjugate, PCV20 (Prevnar 20) 2022-06-30 00:00:00 Completed [facility] Influenza Virus Vaccine Quad IM, Preserv and ABX Free 6 MO-64 YRS 2022-06-30 00:00:00 Completed [facility] Pneumococcal 20 Conjugate, PCV20 (Prevnar 20) 2022-06-30 00:00:00 Completed [facility] Influenza Virus Vaccine Quad IM, Preserv and ABX Free 6 MO-64 YRS 2022-06-30 00:00:00 Completed [facility] Pneumococcal 20 Conjugate, PCV20 (Prevnar 20) 2022-06-30 00:00:00 Completed [facility] Influenza Virus Vaccine Quad IM, Preserv and ABX Free 6 MO-64 YRS 2022-06-30 00:00:00 Completed [facility] Pneumococcal 20 Conjugate, PCV20 (Prevnar 20) 2022-06-30 00:00:00 Completed [facility] Influenza Virus Vaccine Quad IM, Preserv and ABX Free 6 MO-64 YRS 2022-06-30 00:00:00 Completed [facility] Pneumococcal 20 Conjugate, PCV20 (Prevnar 20) 2022-06-30 00:00:00 Completed [facility] Influenza Virus Vaccine Quad IM, Preserv and ABX Free 6 MO-64 YRS 2022-06-30 00:00:00 Completed [facility] Pneumococcal 20 Conjugate, PCV20 (Prevnar 20) 2022-06-30 00:00:00 Completed [facility] Influenza Virus Vaccine Quad IM, Preserv and ABX Free 6 MO-64 YRS 2022-06-30 00:00:00 Completed [facility] Pneumococcal 20 Conjugate, PCV20 (Prevnar 20) 2022-06-30 00:00:00 Completed [facility] Influenza Virus Vaccine Quad IM, Preserv and ABX Free 6 MO-64 YRS 2022-06-30 00:00:00 Completed [facility] Pneumococcal 20 Conjugate, PCV20 (Prevnar 20) 2022-06-30 00:00:00 Completed [facility] Influenza Virus Vaccine Quad IM, Preserv and ABX Free 6 MO-64 YRS 2022-06-30 00:00:00 Completed [facility] Pneumococcal 20 Conjugate, PCV20 (Prevnar 20) 2022-06-30 00:00:00 Completed [facility] Influenza Virus Vaccine Quad IM, Preserv and ABX Free 6 MO-64 YRS (FLUCELVAX) 2022-06-30 00:00:00 Completed [facility] Pneumococcal 20 Conjugate, PCV20 (Prevnar 20) 2022-06-30 00:00:00 Completed [facility] Influenza Virus Vaccine Quad IM, Preserv and ABX Free 6 MO-64 YRS (FLUCELVAX) 2022-06-30 00:00:00 Completed [facility] Pneumococcal 20 Conjugate, PCV20 (Prevnar 20) 2022-06-30 00:00:00 Completed [facility] Influenza Virus Vaccine Quad IM, Preserv and ABX Free 6 MO-64 YRS (FLUCELVAX) 2022-06-30 00:00:00 Completed [facility] Pneumococcal 20 Conjugate, PCV20 (Prevnar 20) 2022-06-30 00:00:00 Completed [facility] Influenza Virus Vaccine Quad IM, Preserv and ABX Free 6 MO-64 YRS (FLUCELVAX) 2022-06-30 00:00:00 Completed [facility] Pneumococcal 20 Conjugate, PCV20 (Prevnar 20) 2022-06-30 00:00:00 Completed [facility] Influenza Virus Vaccine Quad IM, Preserv and ABX Free 6 MO-64 YRS (FLUCELVAX) 2022-06-30 00:00:00 Completed Pneumococcal 20 Conjugate, PCV20 (Prevnar 20) 2022-06-30 00:00:00 Completed [facility] Influenza Virus Vaccine Quad IM, Preserv and ABX Free 6 MO-64 YRS (FLUCELVAX) 2022-06-30 00:00:00 Completed SARS-COV-2 COVID-19 PFIZER VACCINE 2020-11-30 00:00:00 Completed [facility] SARS-COV-2 COVID-19 PFIZER VACCINE 2020-11-30 00:00:00 Completed [facility] SARS-COV-2 COVID-19 PFIZER VACCINE 2020-11-30 00:00:00 Completed [facility] SARS-COV-2 COVID-19 PFIZER VACCINE 2020-11-30 00:00:00 Completed [facility] SARS-COV-2 COVID-19 PFIZER VACCINE 2020-11-30 00:00:00 Completed [facility] SARS-COV-2 COVID-19 PFIZER VACCINE 2020-11-30 00:00:00 Completed [facility] SARS-COV-2 COVID-19 PFIZER VACCINE 2020-11-30 00:00:00 Completed [facility] SARS-COV-2 COVID-19 PFIZER VACCINE 2020-11-30 00:00:00 Completed [facility] SARS-COV-2 COVID-19 PFIZER VACCINE 2020-11-30 00:00:00 Completed [facility] SARS-COV-2 COVID-19 PFIZER VACCINE 2020-11-30 00:00:00 Completed [facility] SARS-COV-2 COVID-19 PFIZER VACCINE 2020-11-30 00:00:00 Completed [facility] SARS-COV-2 COVID-19 PFIZER VACCINE 2020-11-30 00:00:00 Completed [facility] SARS-COV-2 COVID-19 PFIZER VACCINE 2020-11-30 00:00:00 Completed [facility] SARS-COV-2 COVID-19 PFIZER VACCINE 2020-11-30 00:00:00 Completed [facility] SARS-COV-2 COVID-19 PFIZER VACCINE 2020-11-30 00:00:00 Completed [facility] SARS-COV-2 COVID-19 PFIZER VACCINE 2020-11-30 00:00:00 Completed [facility] SARS-COV-2 COVID-19 PFIZER VACCINE 2020-11-30 00:00:00 Completed [facility] SARS-COV-2 COVID-19 PFIZER VACCINE 2020-11-30 00:00:00 Completed [facility] SARS-COV-2 COVID-19 PFIZER VACCINE 2020-11-30 00:00:00 Completed [facility] SARS-COV-2 COVID-19 PFIZER VACCINE 2020-11-30 00:00:00 Completed [facility] SARS-COV-2 COVID-19 PFIZER VACCINE 2020-11-30 00:00:00 Completed [facility] SARS-COV-2 COVID-19 PFIZER VACCINE 2020-11-30 00:00:00 Completed [facility] SARS-COV-2 COVID-19 PFIZER VACCINE 2020-11-30 00:00:00 Completed [facility] SARS-COV-2 COVID-19 PFIZER VACCINE 2020-11-30 00:00:00 Completed [facility] SARS-COV-2 COVID-19 PFIZER VACCINE 2020-11-30 00:00:00 Completed [facility] SARS-COV-2 COVID-19 PFIZER VACCINE 2020-11-30 00:00:00 Completed [facility] SARS-COV-2 COVID-19 PFIZER VACCINE 2020-11-30 00:00:00 Completed [facility] SARS-COV-2 COVID-19 PFIZER VACCINE 2020-11-30 00:00:00 Completed [facility] SARS-COV-2 COVID-19 PFIZER VACCINE 2020-11-30 00:00:00 Completed [facility] SARS-COV-2 COVID-19 PFIZER VACCINE 2020-11-30 00:00:00 Completed [facility] SARS-COV-2 COVID-19 PFIZER VACCINE 2020-11-30 00:00:00 Completed [facility] SARS-COV-2 COVID-19 PFIZER VACCINE 2020-11-30 00:00:00 Completed [facility] SARS-COV-2 COVID-19 PFIZER VACCINE 2020-11-30 00:00:00 Completed [facility] SARS-COV-2 COVID-19 PFIZER VACCINE 2020-11-30 00:00:00 Completed [facility] SARS-COV-2 COVID-19 PFIZER VACCINE 2020-11-30 00:00:00 Completed [facility] SARS-COV-2 COVID-19 PFIZER VACCINE 2020-11-30 00:00:00 Completed [facility] SARS-COV-2 COVID-19 PFIZER VACCINE 2020-11-09 00:00:00 Completed [facility] SARS-COV-2 COVID-19 PFIZER VACCINE 2020-11-09 00:00:00 Completed [facility] SARS-COV-2 COVID-19 PFIZER VACCINE 2020-11-09 00:00:00 Completed [facility] SARS-COV-2 COVID-19 PFIZER VACCINE 2020-11-09 00:00:00 Completed [facility] SARS-COV-2 COVID-19 PFIZER VACCINE 2020-11-09 00:00:00 Completed [facility] SARS-COV-2 COVID-19 PFIZER VACCINE 2020-11-09 00:00:00 Completed [facility] SARS-COV-2 COVID-19 PFIZER VACCINE 2020-11-09 00:00:00 Completed [facility] SARS-COV-2 COVID-19 PFIZER VACCINE 2020-11-09 00:00:00 Completed [facility] SARS-COV-2 COVID-19 PFIZER VACCINE 2020-11-09 00:00:00 Completed [facility] SARS-COV-2 COVID-19 PFIZER VACCINE 2020-11-09 00:00:00 Completed [facility] SARS-COV-2 COVID-19 PFIZER VACCINE 2020-11-09 00:00:00 Completed [facility] SARS-COV-2 COVID-19 PFIZER VACCINE 2020-11-09 00:00:00 Completed [facility] SARS-COV-2 COVID-19 PFIZER VACCINE 2020-11-09 00:00:00 Completed [facility] SARS-COV-2 COVID-19 PFIZER VACCINE 2020-11-09 00:00:00 Completed [facility] SARS-COV-2 COVID-19 PFIZER VACCINE 2020-11-09 00:00:00 Completed [facility] SARS-COV-2 COVID-19 PFIZER VACCINE 2020-11-09 00:00:00 Completed [facility] SARS-COV-2 COVID-19 PFIZER VACCINE 2020-11-09 00:00:00 Completed [facility] SARS-COV-2 COVID-19 PFIZER VACCINE 2020-11-09 00:00:00 Completed [facility] SARS-COV-2 COVID-19 PFIZER VACCINE 2020-11-09 00:00:00 Completed [facility] SARS-COV-2 COVID-19 PFIZER VACCINE 2020-11-09 00:00:00 Completed [facility] SARS-COV-2 COVID-19 PFIZER VACCINE 2020-11-09 00:00:00 Completed [facility] SARS-COV-2 COVID-19 PFIZER VACCINE 2020-11-09 00:00:00 Completed [facility] SARS-COV-2 COVID-19 PFIZER VACCINE 2020-11-09 00:00:00 Completed [facility] SARS-COV-2 COVID-19 PFIZER VACCINE 2020-11-09 00:00:00 Completed [facility] SARS-COV-2 COVID-19 PFIZER VACCINE 2020-11-09 00:00:00 Completed [facility] SARS-COV-2 COVID-19 PFIZER VACCINE 2020-11-09 00:00:00 Completed [facility] SARS-COV-2 COVID-19 PFIZER VACCINE 2020-11-09 00:00:00 Completed [facility] SARS-COV-2 COVID-19 PFIZER VACCINE 2020-11-09 00:00:00 Completed [facility] SARS-COV-2 COVID-19 PFIZER VACCINE 2020-11-09 00:00:00 Completed [facility] SARS-COV-2 COVID-19 PFIZER VACCINE 2020-11-09 00:00:00 Completed [facility] SARS-COV-2 COVID-19 PFIZER VACCINE 2020-11-09 00:00:00 Completed [facility] SARS-COV-2 COVID-19 PFIZER VACCINE 2020-11-09 00:00:00 Completed [facility] SARS-COV-2 COVID-19 PFIZER VACCINE 2020-11-09 00:00:00 Completed [facility] SARS-COV-2 COVID-19 PFIZER VACCINE 2020-11-09 00:00:00 Completed [facility] SARS-COV-2 COVID-19 PFIZER VACCINE 2020-11-09 00:00:00 Completed [facility] Influenza Virus Vaccine Quad .5 mL IM 6+ MO 2020-08-19 00:00:00 Completed [facility] Influenza Virus Vaccine Quad .5 mL IM 6+ MO 2020-08-19 00:00:00 Completed [facility] Influenza Virus Vaccine Quad .5 mL IM 6+ MO 2020-08-19 00:00:00 Completed [facility] Influenza Virus Vaccine Quad .5 mL IM 6+ MO 2020-08-19 00:00:00 Completed [facility] Influenza Virus Vaccine Quad .5 mL IM 6+ MO 2020-08-19 00:00:00 Completed [facility] Influenza Virus Vaccine Quad .5 mL IM 6+ MO 2020-08-19 00:00:00 Completed [facility] Influenza Virus Vaccine Quad .5 mL IM 6+ MO 2020-08-19 00:00:00 Completed [facility] Influenza Virus Vaccine Quad .5 mL IM 6+ MO 2020-08-19 00:00:00 Completed [facility] Influenza Virus Vaccine Quad .5 mL IM 6+ MO 2020-08-19 00:00:00 Completed [facility] Influenza Virus Vaccine Quad .5 mL IM 6+ MO 2020-08-19 00:00:00 Completed [facility] Influenza Virus Vaccine Quad .5 mL IM 6+ MO 2020-08-19 00:00:00 Completed [facility] Influenza Virus Vaccine Quad .5 mL IM 6+ MO 2020-08-19 00:00:00 Completed [facility] Influenza Virus Vaccine Quad .5 mL IM 6+ MO 2020-08-19 00:00:00 Completed [facility] Influenza Virus Vaccine Quad .5 mL IM 6+ MO 2020-08-19 00:00:00 Completed [facility] Influenza Virus Vaccine Quad .5 mL IM 6+ MO 2020-08-19 00:00:00 Completed [facility] Influenza Virus Vaccine Quad .5 mL IM + MO 2020-08-19 00:00:00 Completed [facility] Influenza Virus Vaccine Quad .5 mL IM 6+ MO 2020-08-19 00:00:00 Completed [facility] Influenza Virus Vaccine Quad .5 mL IM 6+ MO 2020-08-19 00:00:00 Completed [facility] Influenza Virus Vaccine Quad .5 mL IM 6+ MO 2020-08-19 00:00:00 Completed [facility] Influenza Virus Vaccine Quad .5 mL IM 6+ MO 2020-08-19 00:00:00 Completed [facility] Influenza Virus Vaccine Quad .5 mL IM 6+ MO 2020-08-19 00:00:00 Completed [facility] Influenza Virus Vaccine Quad .5 mL IM 6+ MO 2020-08-19 00:00:00 Completed [facility] Influenza Virus Vaccine Quad .5 mL IM 6+ MO 2020-08-19 00:00:00 Completed [facility] Influenza Virus Vaccine Quad .5 mL IM 6+ MO 2020-08-19 00:00:00 Completed [facility] Influenza Virus Vaccine Quad .5 mL IM 6+ MO 2020-08-19 00:00:00 Completed [facility] Influenza Virus Vaccine Quad .5 mL IM 6+ MO 2020-08-19 00:00:00 Completed [facility] Influenza Virus Vaccine Quad .5 mL IM 6+ MO 2020-08-19 00:00:00 Completed [facility] Influenza Virus Vaccine Quad .5 mL IM 6+ MO 2020-08-19 00:00:00 Completed [facility] Influenza Virus Vaccine Quad .5 mL IM 6+ MO 2020-08-19 00:00:00 Completed [facility] Influenza Virus Vaccine Quad .5 mL IM 6+ MO (FLUZONE/FLULAVAL/F LUARIX) 2020-08-19 00:00:00 Completed [facility] Influenza Virus Vaccine Quad .5 mL IM 6+ MO (FLUZONE/FLULAVAL/F LUARIX) 2020-08-19 00:00:00 Completed [facility] Influenza Virus Vaccine Quad .5 mL IM 6+ MO (FLUZONE/FLULAVAL/F LUARIX) 2020-08-19 00:00:00 Completed [facility] Influenza Virus Vaccine Quad .5 mL IM 6+ MO (FLUZONE/FLULAVAL/F LUARIX) 2020-08-19 00:00:00 Completed [facility] Influenza Virus Vaccine Quad .5 mL IM 6+ MO (FLUZONE/FLULAVAL/F LUARIX) 2020-08-19 00:00:00 Completed [facility] Influenza Virus Vaccine Quad .5 mL IM 6+ MO (FLUZONE/FLULAVAL/F LUARIX) 2020-08-19 00:00:00 Completed [facility] Influenza Virus Vaccine Quad .5 mL IM 6+ MO (FLUZONE/FLULAVAL/F LUARIX) 2020-08-19 00:00:00 Completed [facility] Influenza Virus Vaccine Quad .5 mL IM 6+ MO 2019-08-20 00:00:00 Completed [facility] Influenza Virus Vaccine Quad .5 mL IM 6+ MO 2019-08-20 00:00:00 Completed [facility] Influenza Virus Vaccine Quad .5 mL IM 6+ MO 2019-08-20 00:00:00 Completed [facility] Influenza Virus Vaccine Quad .5 mL IM 6+ MO 2019-08-20 00:00:00 Completed [facility] Influenza Virus Vaccine Quad .5 mL IM 6+ MO 2019-08-20 00:00:00 Completed [facility] Influenza Virus Vaccine Quad .5 mL IM 6+ MO 2019-08-20 00:00:00 [facility]pleted [facility] Influenza Virus Vaccine Quad .5 mL IM 6+ MO 2019-08-20 00:00:00 Completed [facility] Influenza Virus Vaccine Quad .5 mL IM 6+ MO 2019-08-20 00:00:00 Completed [facility] Influenza Virus Vaccine Quad .5 mL IM 6+ MO 2019-08-20 00:00:00 Completed [facility] Influenza Virus Vaccine Quad .5 mL IM 6+ MO 2019-08-20 00:00:00 Completed [facility] Influenza Virus Vaccine Quad .5 mL IM 6+ MO 2019-08-20 00:00:00 Completed [facility] Influenza Virus Vaccine Quad .5 mL IM 6+ MO 2019-08-20 00:00:00 Completed [facility] Influenza Virus Vaccine Quad .5 mL IM 6+ MO 2019-08-20 00:00:00 Completed [facility] Influenza Virus Vaccine Quad .5 mL IM 6+ MO 2019-08-20 00:00:00 Completed [facility] Influenza Virus Vaccine Quad .5 mL IM 6+ MO 2019-08-20 00:00:00 Completed [facility] Influenza Virus Vaccine Quad .5 mL IM 6+ MO 2019-08-20 00:00:00 Completed [facility] Influenza Virus Vaccine Quad .5 mL IM 6+ MO 2019-08-20 00:00:00 Completed [facility] Influenza Virus Vaccine Quad .5 mL IM 6+ MO 2019-08-20 00:00:00 Completed [facility] Influenza Virus Vaccine Quad .5 mL IM 6+ MO 2019-08-20 00:00:00 Completed [facility] Influenza Virus Vaccine Quad .5 mL IM 6+ MO 2019-08-20 00:00:00 Completed [facility] Influenza Virus Vaccine Quad .5 mL IM 6+ MO 2019-08-20 00:00:00 Completed [facility] Influenza Virus Vaccine Quad .5 mL IM 6+ MO 2019-08-20 00:00:00 Completed [facility] Influenza Virus Vaccine Quad .5 mL IM 6+ MO 2019-08-20 00:00:00 Completed [facility] Influenza Virus Vaccine Quad .5 mL IM 6+ MO 2019-08-20 00:00:00 Completed [facility] Influenza Virus Vaccine Quad .5 mL IM 6+ MO 2019-08-20 00:00:00 Completed [facility] Influenza Virus Vaccine Quad .5 mL IM 6+ MO 2019-08-20 00:00:00 Completed [facility] Influenza Virus Vaccine Quad .5 mL IM 6+ MO 2019-08-20 00:00:00 Completed [facility] Influenza Virus Vaccine Quad .5 mL IM 6+ MO 2019-08-20 00:00:00 Completed [facility] Influenza Virus Vaccine Quad .5 mL IM 6+ MO 2019-08-20 00:00:00 Completed [facility] Influenza Virus Vaccine Quad .5 mL IM 6+ MO (FLUZONE/FLULAVAL/F LUARIX) 2019-08-20 00:00:00 Completed [facility] Influenza Virus Vaccine Quad .5 mL IM 6+ MO (FLUZONE/FLULAVAL/F LUARIX) 2019-08-20 00:00:00 Completed [facility] Influenza Virus Vaccine Quad .5 mL IM 6+ MO (FLUZONE/FLULAVAL/F LUARIX) 2019-08-20 00:00:00 Completed [facility] Influenza Virus Vaccine Quad .5 mL IM 6+ MO (FLUZONE/FLULAVAL/F LUARIX) 2019-08-20 00:00:00 Completed [facility] Influenza Virus Vaccine Quad .5 mL IM 6+ MO (FLUZONE/FLULAVAL/F LUARIX) 2019-08-20 00:00:00 Completed [facility] Influenza Virus Vaccine Quad .5 mL IM 6+ MO (FLUZONE/FLULAVAL/F LUARIX) 2019-08-20 00:00:00 Completed [facility] Influenza Virus Vaccine Quad IM 3+ YRS 2018-06-18 00:00:00 Completed [facility] Pneumococcal Polysaccharide, PPSV23 (PNEUMOVAX) 2018-06-18 00:00:00 Completed [facility] Influenza Virus Vaccine Quad IM 3+ YRS 2018-06-18 00:00:00 Completed [facility] Pneumococcal Polysaccharide, PPSV23 (PNEUMOVAX) 2018-06-18 00:00:00 Completed [facility] Influenza Virus Vaccine Quad IM 3+ YRS 2018-06-18 00:00:00 Completed [facility] Pneumococcal Polysaccharide, PPSV23 (PNEUMOVAX) 2018-06-18 00:00:00 Completed [facility] Influenza Virus Vaccine Quad IM 3+ YRS 2018-06-18 00:00:00 Completed [facility] Pneumococcal Polysaccharide, PPSV23 (PNEUMOVAX) 2018-06-18 00:00:00 Completed [facility] Influenza Virus Vaccine Quad IM 3+ YRS 2018-06-18 00:00:00 Completed [facility] Pneumococcal Polysaccharide, PPSV23 (PNEUMOVAX) 2018-06-18 00:00:00 Completed [facility] Influenza Virus Vaccine Quad IM 3+ YRS 2018-06-18 00:00:00 Completed [facility] Pneumococcal Polysaccharide, PPSV23 (PNEUMOVAX) 2018-06-18 00:00:00 Completed [facility] Influenza Virus Vaccine Quad IM 3+ YRS 2018-06-18 00:00:00 Completed [facility] Pneumococcal Polysaccharide, PPSV23 (PNEUMOVAX) 2018-06-18 00:00:00 Completed [facility] Influenza Virus Vaccine Quad IM 3+ YRS 2018-06-18 00:00:00 Completed [facility] Pneumococcal Polysaccharide, PPSV23 (PNEUMOVAX) 2018-06-18 00:00:00 Completed [facility] Influenza Virus Vaccine Quad IM 3+ YRS 2018-06-18 00:00:00 Completed [facility] Pneumococcal Polysaccharide, PPSV23 (PNEUMOVAX) 2018-06-18 00:00:00 Completed [facility] Influenza Virus Vaccine Quad IM 3+ YRS 2018-06-18 00:00:00 Completed [facility] Pneumococcal Polysaccharide, PPSV23 (PNEUMOVAX) 2018-06-18 00:00:00 Completed [facility] Influenza Virus Vaccine Quad IM 3+ YRS 2018-06-18 00:00:00 Completed [facility] Pneumococcal Polysaccharide, PPSV23 (PNEUMOVAX) 2018-06-18 00:00:00 Completed [facility] Influenza Virus Vaccine Quad IM 3+ YRS 2018-06-18 00:00:00 Completed [facility] Pneumococcal Polysaccharide, PPSV23 (PNEUMOVAX) 2018-06-18 00:00:00 Completed [facility] Influenza Virus Vaccine Quad IM 3+ YRS 2018-06-18 00:00:00 Completed [facility] Pneumococcal Polysaccharide, PPSV23 (PNEUMOVAX) 2018-06-18 00:00:00 Completed [facility] Influenza Virus Vaccine Quad IM 3+ YRS 2018-06-18 00:00:00 Completed [facility] Pneumococcal Polysaccharide, PPSV23 (PNEUMOVAX) 2018-06-18 00:00:00 Completed [facility] Influenza Virus Vaccine Quad IM 3+ YRS 2018-06-18 00:00:00 Completed [facility] Pneumococcal Polysaccharide, PPSV23 (PNEUMOVAX) 2018-06-18 00:00:00 Completed [facility] Influenza Virus Vaccine Quad IM 3+ YRS 2018-06-18 00:00:00 Completed [facility] Pneumococcal Polysaccharide, PPSV23 (PNEUMOVAX) 2018-06-18 00:00:00 Completed [facility] Influenza Virus Vaccine Quad IM 3+ YRS 2018-06-18 00:00:00 Completed [facility] Pneumococcal Polysaccharide, PPSV23 (PNEUMOVAX) 2018-06-18 00:00:00 Completed [facility] Influenza Virus Vaccine Quad IM 3+ YRS 2018-06-18 00:00:00 Completed [facility] Pneumococcal Polysaccharide, PPSV23 (PNEUMOVAX) 2018-06-18 00:00:00 Completed [facility] Influenza Virus Vaccine Quad IM 3+ YRS 2018-06-18 00:00:00 Completed [facility] Pneumococcal Polysaccharide, PPSV23 (PNEUMOVAX) 2018-06-18 00:00:00 Completed [facility] Influenza Virus Vaccine Quad IM 3+ YRS 2018-06-18 00:00:00 Completed [facility] Pneumococcal Polysaccharide, PPSV23 (PNEUMOVAX) 2018-06-18 00:00:00 Completed [facility] Influenza Virus Vaccine Quad IM 3+ YRS 2018-06-18 00:00:00 Completed [facility] Pneumococcal Polysaccharide, PPSV23 (PNEUMOVAX) 2018-06-18 00:00:00 Completed [facility] Influenza Virus Vaccine Quad IM 3+ YRS 2018-06-18 00:00:00 Completed [facility] Pneumococcal Polysaccharide, PPSV23 (PNEUMOVAX) 2018-06-18 00:00:00 Completed [facility] Influenza Virus Vaccine Quad IM 3+ YRS 2018-06-18 00:00:00 Completed [facility] Pneumococcal Polysaccharide, PPSV23 (PNEUMOVAX) 2018-06-18 00:00:00 Completed [facility] Influenza Virus Vaccine Quad IM 3+ YRS 2018-06-18 00:00:00 Completed [facility] Pneumococcal Polysaccharide, PPSV23 (PNEUMOVAX) 2018-06-18 00:00:00 Completed [facility] Influenza Virus Vaccine Quad IM 3+ YRS 2018-06-18 00:00:00 Completed [facility] Pneumococcal Polysaccharide, PPSV23 (PNEUMOVAX) 2018-06-18 00:00:00 Completed [facility] Influenza Virus Vaccine Quad IM 3+ YRS 2018-06-18 00:00:00 Completed [facility] Pneumococcal Polysaccharide, PPSV23 (PNEUMOVAX) 2018-06-18 00:00:00 Completed [facility] Influenza Virus Vaccine Quad IM 3+ YRS 2018-06-18 00:00:00 Completed [facility] Pneumococcal Polysaccharide, PPSV23 (PNEUMOVAX) 2018-06-18 00:00:00 Completed [facility] Influenza Virus Vaccine Quad IM 3+ YRS 2018-06-18 00:00:00 Completed [facility] Pneumococcal Polysaccharide, PPSV23 (PNEUMOVAX) 2018-06-18 00:00:00 Completed [facility] Influenza Virus Vaccine Quad IM 3+ YRS 2018-06-18 00:00:00 Completed [facility] Pneumococcal Polysaccharide, PPSV23 (PNEUMOVAX) 2018-06-18 00:00:00 Completed [facility] Influenza Virus Vaccine Quad IM 3+ YRS 2018-06-18 00:00:00 Completed [facility] Pneumococcal Polysaccharide, PPSV23 (PNEUMOVAX) 2018-06-18 00:00:00 Completed [facility] Influenza Virus Vaccine Quad IM 3+ YRS 2018-06-18 00:00:00 Completed [facility] Pneumococcal Polysaccharide, PPSV23 (PNEUMOVAX) 2018-06-18 00:00:00 Completed [facility] Influenza Virus Vaccine Quad IM 3+ YRS 2018-06-18 00:00:00 [facility] Pneumococcal Polysaccharide, PPSV23 (PNEUMOVAX) 2018-06-18 00:00:00 Completed [facility] Influenza Virus Vaccine Quad IM 3+ YRS 2018-06-18 00:00:00 Completed [facility] Pneumococcal Polysaccharide, PPSV23 (PNEUMOVAX) 2018-06-18 00:00:00 Completed [facility] Influenza Virus Vaccine Quad IM 3+ YRS 2018-06-18 00:00:00 Completed [facility] Pneumococcal Polysaccharide, PPSV23 (PNEUMOVAX) 2018-06-18 00:00:00 Completed Influenza Virus Vaccine Quad IM 3+ YRS 2018-06-18 00:00:00 Completed [facility] Pneumococcal Polysaccharide, PPSV23 (PNEUMOVAX) 2018-06-18 00:00:00 Completed Influenza Virus Vaccine Quad ID 18-64 YRS 2017-10-17 00:00:00 Completed [facility] Influenza Virus Vaccine Quad ID 18-64 YRS 2017-10-17 00:00:00 Completed [facility] Influenza Virus Vaccine Quad ID 18-64 YRS 2017-10-17 00:00:00 Completed [facility] Influenza Virus Vaccine Quad ID 18-64 YRS 2017-10-17 00:00:00 Completed [facility] Influenza Virus Vaccine Quad ID 18-64 YRS 2017-10-17 00:00:00 Completed [facility] Influenza Virus Vaccine Quad ID 18-64 YRS 2017-10-17 00:00:00 Completed [facility] Influenza Virus Vaccine Quad ID 18-64 YRS 2017-10-17 00:00:00 Completed [facility] Influenza Virus Vaccine Quad ID 18-64 YRS 2017-10-17 00:00:00 Completed [facility] Influenza Virus Vaccine Quad ID 18-64 YRS 2017-10-17 00:00:00 Completed [facility] Influenza Virus Vaccine Quad ID 18-64 YRS 2017-10-17 00:00:00 Completed [facility] Influenza Virus Vaccine Quad ID 18-64 YRS 2017-10-17 00:00:00 Completed [facility] Influenza Virus Vaccine Quad ID 18-64 YRS 2017-10-17 00:00:00 Completed [facility] Influenza Virus Vaccine Quad ID 18-64 YRS 2017-10-17 00:00:00 Completed [facility] Influenza Virus Vaccine Quad ID 18-64 YRS 2017-10-17 00:00:00 Completed [facility] Influenza Virus Vaccine Quad ID 18-64 YRS 2017-10-17 00:00:00 Completed [facility] Influenza Virus Vaccine Quad ID 18-64 YRS 2017-10-17 00:00:00 Completed [facility] Influenza Virus Vaccine Quad ID 18-64 YRS 2017-10-17 00:00:00 Completed [facility] Influenza Virus Vaccine Quad ID 18-64 YRS 2017-10-17 00:00:00 Completed [facility] Influenza Virus Vaccine Quad ID 18-64 YRS 2017-10-17 00:00:00 Completed [facility] Influenza Virus Vaccine Quad ID 18-64 YRS 2017-10-17 00:00:00 Completed [facility] Influenza Virus Vaccine Quad ID 18-64 YRS 2017-10-17 00:00:00 Completed [facility] Influenza Virus Vaccine Quad ID 18-64 YRS 2017-10-17 00:00:00 Completed [facility] Influenza Virus Vaccine Quad ID 18-64 YRS 2017-10-17 00:00:00 Completed [facility] Influenza Virus Vaccine Quad ID 18-64 YRS 2017-10-17 00:00:00 Completed [facility] Influenza Virus Vaccine Quad ID 18-64 YRS 2017-10-17 00:00:00 Completed [facility] Influenza Virus Vaccine Quad ID 18-64 YRS 2017-10-17 00:00:00 Completed [facility] Influenza Virus Vaccine Quad ID 18-64 YRS 2017-10-17 00:00:00 Completed [facility] Influenza Virus Vaccine Quad ID 18-64 YRS 2017-10-17 00:00:00 Completed [facility] Influenza Virus Vaccine Quad ID 18-64 YRS 2017-10-17 00:00:00 Completed [facility] Influenza Virus Vaccine Quad ID 18-64 YRS 2017-10-17 00:00:00 Completed [facility] Influenza Virus Vaccine Quad ID 18-64 YRS 2017-10-17 00:00:00 Completed [facility] Influenza Virus Vaccine Quad ID 18-64 YRS 2017-10-17 00:00:00 Completed [facility] Influenza Virus Vaccine Quad ID 18-64 YRS 2017-10-17 00:00:00 Completed [facility] Influenza Virus Vaccine Quad ID 18-64 YRS 2017-10-17 00:00:00 Completed [facility] Influenza Virus Vaccine Quad ID 18-64 YRS 2017-10-17 00:00:00 Completed [facility] Td 2017-02-25 00:00:00 Completed [facility] Td 2017-02-25 00:00:00 Completed [facility] Td 2017-02-25 00:00:00 Completed [facility] Td 2017-02-25 00:00:00 Completed [facility] Td 2017-02-25 00:00:00 Completed [facility] Td 2017-02-25 00:00:00 Completed [facility] Td 2017-02-25 00:00:00 Completed [facility] Td 2017-02-25 00:00:00 Completed [facility] Td 2017-02-25 00:00:00 Completed [facility] TD, NOS 2017-02-25 00:00:00 Completed [facility] TD, NOS 2017-02-25 00:00:00 Completed [facility] TD, NOS 2017-02-25 00:00:00 Completed [facility] TD, NOS 2017-02-25 00:00:00 Completed [facility] TD, NOS 2017-02-25 00:00:00 Completed [facility] TD, NOS 2017-02-25 00:00:00 Completed [facility] TD, NOS 2017-02-25 00:00:00 Completed [facility] TD, NOS 2017-02-25 00:00:00 Completed [facility] TD, NOS 2017-02-25 00:00:00 Completed [facility] TD, NOS 2017-02-25 00:00:00 Completed [facility] TD, NOS 2017-02-25 00:00:00 Completed [facility] TD, NOS 2017-02-25 00:00:00 Completed [facility] TD, NOS 2017-02-25 00:00:00 Completed [facility] TD, NOS 2017-02-25 00:00:00 Completed [facility] TD, NOS 2017-02-25 00:00:00 Completed [facility] TD, NOS 2017-02-25 00:00:00 Completed [facility] TD, NOS 2017-02-25 00:00:00 Completed [facility] TD, NOS 2017-02-25 00:00:00 Completed [facility] TD, NOS 2017-02-25 00:00:00 Completed [facility] TD, NOS 2017-02-25 00:00:00 Completed [facility] TD, NOS 2017-02-25 00:00:00 Completed [facility] TD, NOS 2017-02-25 00:00:00 Completed [facility] TD, NOS 2017-02-25 00:00:00 Completed [facility] TD, NOS 2017-02-25 00:00:00 Completed [facility] TD, NOS 2017-02-25 00:00:00 Completed TD, NOS 2017-02-25 00:00:00 Completed Influenza Virus Vaccine Quad ID 18-64 YRS Unknown Completed [facility] Influenza Virus Vaccine Quad IM 3+ YRS Unknown Completed [facility] Pneumococcal Polysaccharide, PPSV23 (PNEUMOVAX) Unknown Completed [facility] TD, NOS Unknown Completed [facility] SARS-COV-2 COVID-19 PFIZER VACCINE Unknown Completed [facility] Pneumococcal 20 Conjugate, PCV20 (Prevnar 20) Unknown Completed [facility] Influenza Virus Vaccine Quad IM, Preserv and ABX Free 6 MO-64 YRS (FLUCELVAX) Unknown Completed [facility] SARS-COV-2 COVID-19 KASEY-SUCROSE VACCINE 12 YRS+, BIVALENT 0.3ML, IM, (PFIZER JUDD TOP) Unknown Completed [facility] Influenza Virus Vaccine Quad ID 18-64 YRS Unknown Completed [facility] Pneumococcal Polysaccharide, PPSV23 (PNEUMOVAX) Unknown Completed [facility] TD, NOS Unknown Completed [facility] Pneumococcal 20 Conjugate, PCV20 (Prevnar 20) Unknown Completed [facility] Influenza Virus Vaccine Quad IM, Preserv and ABX Free 6 MO-64 YRS (FLUCELVAX) Unknown Completed [facility] SARS-COV-2 COVID-19 KASEY-SUCROSE VACCINE 12 YRS+, BIVALENT 0.3ML, IM, (PFIZER JUDD TOP) Unknown Completed [facility] Influenza Virus Vaccine Quad ID 18-64 YRS Unknown Completed [facility] Influenza Virus Vaccine Quad IM 3+ YRS Unknown Completed [facility] Pneumococcal Polysaccharide, PPSV23 (PNEUMOVAX) Unknown Completed [facility] TD, NOS Unknown Completed [facility] SARS-COV-2 COVID-19 PFIZER VACCINE Unknown Completed [facility] Pneumococcal 20 Conjugate, PCV20 (Prevnar 20) Unknown Completed [facility] Influenza Virus Vaccine Quad IM, Preserv and ABX Free 6 MO-64 YRS (FLUCELVAX) Unknown Completed [facility] SARS-COV-2 COVID-19 KASEY-SUCROSE VACCINE 12 YRS+, BIVALENT 0.3ML, IM, (PFIZER JUDD TOP) Unknown Completed [facility] Influenza Virus Vaccine Quad ID 18-64 YRS Unknown Completed [facility] Influenza Virus Vaccine Quad IM 3+ YRS Unknown Completed [facility] Pneumococcal Polysaccharide, PPSV23 (PNEUMOVAX) Unknown Completed [facility] TD, NOS Unknown Completed [facility] SARS-COV-2 COVID-19 PFIZER VACCINE Unknown Completed [facility] Pneumococcal 20 Conjugate, PCV20 (Prevnar 20) Unknown Completed [facility] Influenza Virus Vaccine Quad IM, Preserv and ABX Free 6 MO-64 YRS (FLUCELVAX) Unknown Completed [facility] SARS-COV-2 COVID-19 KASEY-SUCROSE VACCINE 12 YRS+, BIVALENT 0.3ML, IM, (PFIZER JUDD TOP) Unknown Completed [facility] Influenza Virus Vaccine Quad ID 18-64 YRS Unknown Completed [facility] Influenza Virus Vaccine Quad IM 3+ YRS Unknown Completed [facility] Pneumococcal Polysaccharide, PPSV23 (PNEUMOVAX) Unknown Completed [facility] TD, NOS Unknown Completed [facility] SARS-COV-2 COVID-19 PFIZER VACCINE Unknown Completed [facility] Pneumococcal 20 Conjugate, PCV20 (Prevnar 20) Unknown Completed [facility] Influenza Virus Vaccine Quad IM, Preserv and ABX Free 6 MO-64 YRS (FLUCELVAX) Unknown Completed [facility] SARS-COV-2 COVID-19 KASEY-SUCROSE VACCINE 12 YRS+, BIVALENT 0.3ML, IM, (PFIZER JUDD TOP) Unknown Completed [facility] Influenza Virus Vaccine Quad ID 18-64 YRS Unknown Completed [facility] Influenza Virus Vaccine Quad IM 3+ YRS Unknown Completed [facility] Pneumococcal Polysaccharide, PPSV23 (PNEUMOVAX) Unknown Completed [facility] TD, NOS Unknown Completed [facility] SARS-COV-2 COVID-19 PFIZER VACCINE Unknown Completed [facility] Pneumococcal 20 Conjugate, PCV20 (Prevnar 20) Unknown Completed [facility] Influenza Virus Vaccine Quad IM, Preserv and ABX Free 6 MO-64 YRS (FLUCELVAX) Unknown Completed [facility] SARS-COV-2 COVID-19 KASEY-SUCROSE VACCINE 12 YRS+, BIVALENT 0.3ML, IM, (PFIZER JUDD TOP) Unknown Completed [facility] Influenza Virus Vaccine Quad ID 18-64 YRS Unknown Completed [facility] Influenza Virus Vaccine Quad IM 3+ YRS Unknown Completed [facility] Pneumococcal Polysaccharide, PPSV23 (PNEUMOVAX) Unknown Completed [facility] TD, NOS Unknown Completed [facility] SARS-COV-2 COVID-19 PFIZER VACCINE Unknown Completed [facility] Pneumococcal 20 Conjugate, PCV20 (Prevnar 20) Unknown Completed [facility] Influenza Virus Vaccine Quad IM, Preserv and ABX Free 6 MO-64 YRS (FLUCELVAX) Unknown Completed [facility] SARS-COV-2 COVID-19 KASEY-SUCROSE VACCINE 12 YRS+, BIVALENT 0.3ML, IM, (PFIZER JUDD TOP) Unknown Completed [facility] Influenza Virus Vaccine Quad ID 18-64 YRS Unknown Completed [facility] Influenza Virus Vaccine Quad IM 3+ YRS Unknown Completed [facility] Pneumococcal Polysaccharide, PPSV23 (PNEUMOVAX) Unknown Completed [facility] TD, NOS Unknown Completed [facility] SARS-COV-2 COVID-19 PFIZER VACCINE Unknown Completed [facility] Influenza Virus Vaccine Quad ID 18-64 YRS Unknown Completed [facility] Influenza Virus Vaccine Quad IM 3+ YRS Unknown Completed [facility] Pneumococcal Polysaccharide, PPSV23 (PNEUMOVAX) Unknown Completed [facility] TD, NOS Unknown Completed [facility] SARS-COV-2 COVID-19 PFIZER VACCINE Unknown Completed [facility] Pneumococcal 20 Conjugate, PCV20 (Prevnar 20) Unknown Completed [facility] Influenza Virus Vaccine Quad IM, Preserv and ABX Free 6 MO-64 YRS (FLUCELVAX) Unknown Completed [facility] SARS-COV-2 COVID-19 KASEY-SUCROSE VACCINE 12 YRS+, BIVALENT 0.3ML, IM, (PFIZER JUDD TOP) Unknown Completed [facility] Influenza Virus Vaccine Quad ID 18-64 YRS Unknown Completed [facility] Influenza Virus Vaccine Quad IM 3+ YRS Unknown Completed [facility] Pneumococcal Polysaccharide, PPSV23 (PNEUMOVAX) Unknown Completed [facility] TD, NOS Unknown Completed [facility] SARS-COV-2 COVID-19 PFIZER VACCINE Unknown Completed [facility] Pneumococcal 20 Conjugate, PCV20 (Prevnar 20) Unknown Completed [facility] Influenza Virus Vaccine Quad IM, Preserv and ABX Free 6 MO-64 YRS (FLUCELVAX) Unknown Completed [facility] SARS-COV-2 COVID-19 KASEY-SUCROSE VACCINE 12 YRS+, BIVALENT 0.3ML, IM, (PFIZER JUDD TOP) Unknown Completed [facility] Influenza Virus Vaccine Quad ID 18-64 YRS Unknown Completed [facility] Pneumococcal Polysaccharide, PPSV23 (PNEUMOVAX) Unknown Completed [facility] TD, NOS Unknown Completed [facility] Pneumococcal 20 Conjugate, PCV20 (Prevnar 20) Unknown Completed [facility] Influenza Virus Vaccine Quad IM, Preserv and ABX Free 6 MO-64 YRS (FLUCELVAX) Unknown Completed [facility] SARS-COV-2 COVID-19 KASEY-SUCROSE VACCINE 12 YRS+, BIVALENT 0.3ML, IM, (PFIZER JUDD TOP) Unknown Completed [facility] Influenza Virus Vaccine Quad ID 18-64 YRS Unknown Completed [facility] Influenza Virus Vaccine Quad IM 3+ YRS Unknown Completed [facility] Pneumococcal Polysaccharide, PPSV23 (PNEUMOVAX) Unknown Completed [facility] TD, NOS Unknown Completed [facility] SARS-COV-2 COVID-19 PFIZER VACCINE Unknown Completed [facility] Pneumococcal 20 Conjugate, PCV20 (Prevnar 20) Unknown Completed [facility] Influenza Virus Vaccine Quad IM, Preserv and ABX Free 6 MO-64 YRS (FLUCELVAX) Unknown Completed [facility] SARS-COV-2 COVID-19 KASEY-SUCROSE VACCINE 12 YRS+, BIVALENT 0.3ML, IM, (PFIZER JUDD TOP) Unknown Completed [facility] Influenza Virus Vaccine Quad IM 3+ YRS Unknown Completed [facility] SARS-COV-2 COVID-19 PFIZER VACCINE Unknown Completed [facility] Influenza Virus Vaccine Quad ID 18-64 YRS Unknown Completed [facility] Influenza Virus Vaccine Quad IM 3+ YRS Unknown Completed [facility] Pneumococcal Polysaccharide, PPSV23 (PNEUMOVAX) Unknown Completed [facility] TD, NOS Unknown Completed [facility] SARS-COV-2 COVID-19 PFIZER VACCINE Unknown Completed [facility] Pneumococcal 20 Conjugate, PCV20 (Prevnar 20) Unknown Completed [facility] Influenza Virus Vaccine Quad IM, Preserv and ABX Free 6 MO-64 YRS (FLUCELVAX) Unknown Completed [facility] SARS-COV-2 COVID-19 KASEY-SUCROSE VACCINE 12 YRS+, BIVALENT 0.3ML, IM, (PFIZER JUDD TOP) Unknown Completed [facility] Influenza Virus Vaccine Quad ID 18-64 YRS Unknown Completed [facility] Influenza Virus Vaccine Quad IM 3+ YRS Unknown Completed [facility] Pneumococcal Polysaccharide, PPSV23 (PNEUMOVAX) Unknown Completed [facility] TD, NOS Unknown Completed [facility] SARS-COV-2 COVID-19 PFIZER VACCINE Unknown Completed [facility] Pneumococcal 20 Conjugate, PCV20 (Prevnar 20) Unknown Completed [facility] Influenza Virus Vaccine Quad IM, Preserv and ABX Free 6 MO-64 YRS (FLUCELVAX) Unknown Completed [facility] SARS-COV-2 COVID-19 KASEY-SUCROSE VACCINE 12 YRS+, BIVALENT 0.3ML, IM, (PFIZER JUDD TOP) Unknown Completed [facility] Influenza Virus Vaccine Quad ID 18-64 YRS Unknown Completed [facility] Influenza Virus Vaccine Quad IM 3+ YRS Unknown Completed [facility] Pneumococcal Polysaccharide, PPSV23 (PNEUMOVAX) Unknown Completed [facility] TD, NOS Unknown Completed [facility] SARS-COV-2 COVID-19 PFIZER VACCINE Unknown Completed [facility] Pneumococcal 20 Conjugate, PCV20 (Prevnar 20) Unknown Completed [facility] Influenza Virus Vaccine Quad IM, Preserv and ABX Free 6 MO-64 YRS (FLUCELVAX) Unknown Completed [facility] SARS-COV-2 COVID-19 KASEY-SUCROSE VACCINE 12 YRS+, BIVALENT 0.3ML, IM, (PFIZER JUDD TOP) Unknown Completed [facility] Influenza Virus Vaccine Quad ID 18-64 YRS Unknown Completed [facility] Influenza Virus Vaccine Quad IM 3+ YRS Unknown Completed [facility] Pneumococcal Polysaccharide, PPSV23 (PNEUMOVAX) Unknown Completed [facility] TD, NOS Unknown Completed [facility] SARS-COV-2 COVID-19 PFIZER VACCINE Unknown Completed [facility] Pneumococcal 20 Conjugate, PCV20 (Prevnar 20) Unknown Completed [facility] Influenza Virus Vaccine Quad IM, Preserv and ABX Free 6 MO-64 YRS (FLUCELVAX) Unknown Completed [facility] SARS-COV-2 COVID-19 KASEY-SUCROSE VACCINE 12 YRS+, BIVALENT 0.3ML, IM, (PFIZER JUDD TOP) Unknown Completed [facility] Influenza Virus Vaccine Quad ID 18-64 YRS Unknown Completed [facility] Influenza Virus Vaccine Quad IM 3+ YRS Unknown Completed [facility] Pneumococcal Polysaccharide, PPSV23 (PNEUMOVAX) Unknown Completed [facility] TD, NOS Unknown Completed [facility] SARS-COV-2 COVID-19 PFIZER VACCINE Unknown Completed [facility] Pneumococcal 20 Conjugate, PCV20 (Prevnar 20) Unknown Completed [facility] Influenza Virus Vaccine Quad IM, Preserv and ABX Free 6 MO-64 YRS (FLUCELVAX) Unknown Completed [facility] SARS-COV-2 COVID-19 KASEY-SUCROSE VACCINE 12 YRS+, BIVALENT 0.3ML, IM, (PFIZER JUDD TOP) Unknown Completed [facility] Influenza Virus Vaccine Quad ID 18-64 YRS Unknown Completed [facility] Influenza Virus Vaccine Quad IM 3+ YRS Unknown Completed [facility] Pneumococcal Polysaccharide, PPSV23 (PNEUMOVAX) Unknown Completed [facility] TD, NOS Unknown Completed [facility] SARS-COV-2 COVID-19 PFIZER VACCINE Unknown Completed [facility] Pneumococcal 20 Conjugate, PCV20 (Prevnar 20) Unknown Completed [facility] Influenza Virus Vaccine Quad IM, Preserv and ABX Free 6 MO-64 YRS (FLUCELVAX) Unknown Completed [facility] SARS-COV-2 COVID-19 KASEY-SUCROSE VACCINE 12 YRS+, BIVALENT 0.3ML, IM, (PFIZER JUDD TOP) Unknown Completed [facility] Influenza Virus Vaccine Quad ID 18-64 YRS Unknown Completed [facility] Influenza Virus Vaccine Quad IM 3+ YRS Unknown Completed [facility] Pneumococcal Polysaccharide, PPSV23 (PNEUMOVAX) Unknown Completed [facility] TD, NOS Unknown Completed [facility] SARS-COV-2 COVID-19 PFIZER VACCINE Unknown Completed [facility] Pneumococcal 20 Conjugate, PCV20 (Prevnar 20) Unknown Completed [facility] Influenza Virus Vaccine Quad IM, Preserv and ABX Free 6 MO-64 YRS (FLUCELVAX) Unknown Completed [facility] SARS-COV-2 COVID-19 KASEY-SUCROSE VACCINE 12 YRS+, BIVALENT 0.3ML, IM, (PFIZER JUDD TOP) Unknown Completed [facility] Influenza Virus Vaccine,quad Im,preserve Free 65+ (FLUAD) Unknown Completed [facility] SARS-COV-2 COVID 19 KASEY SUCROSE VACCINE 12, [id number], 0.3 ML (30 MCG), IM PFIZER (JUDD TOP) Unknown Completed [facility] Influenza Virus Vaccine Quad ID 18-64 YRS Unknown Completed [facility] Pneumococcal Polysaccharide, PPSV23 (PNEUMOVAX) Unknown Completed [facility] TD, NOS Unknown Completed [facility] Pneumococcal 20 Conjugate, PCV20 (Prevnar 20) Unknown Completed [facility] Influenza Virus Vaccine Quad IM, Preserv and ABX Free 6 MO-64 YRS (FLUCELVAX) Unknown Completed [facility] SARS-COV-2 COVID-19 KASEY-SUCROSE VACCINE 12 YRS+, BIVALENT 0.3ML, IM, (PFIZER JUDD TOP) Unknown Completed [facility] Influenza Virus Vaccine,quad Im,preserve Free 65+ (FLUAD) Unknown Completed [facility] SARS-COV-2 COVID 19 KASEY SUCROSE VACCINE 12, [id number], 0.3 ML (30 MCG), IM PFIZER (JUDD TOP) Unknown Completed [facility] Influenza Virus Vaccine Quad IM 3+ YRS Unknown Completed [facility] SARS-COV-2 COVID-19 PFIZER VACCINE Unknown Completed [facility] Influenza Virus Vaccine Quad ID 18-64 YRS Unknown Completed [facility] Influenza Virus Vaccine Quad IM 3+ YRS Unknown Completed [facility] Pneumococcal Polysaccharide, PPSV23 (PNEUMOVAX) Unknown Completed [facility] TD, NOS Unknown Completed [facility] SARS-COV-2 COVID-19 PFIZER VACCINE Unknown Completed [facility] Pneumococcal 20 Conjugate, PCV20 (Prevnar 20) Unknown Completed [facility] Influenza Virus Vaccine Quad IM, Preserv and ABX Free 6 MO-64 YRS (FLUCELVAX) Unknown Completed [facility] SARS-COV-2 COVID-19 KASEY-SUCROSE VACCINE 12 YRS+, BIVALENT 0.3ML, IM, (PFIZER JUDD TOP) Unknown Completed [facility] Influenza Virus Vaccine,quad Im,preserve Free 65+ (FLUAD) Unknown Completed [facility] SARS-COV-2 COVID 19 KASEY SUCROSE VACCINE 12+, [id number], 0.3 ML (30 MCG), IM PFIZER (JUDD TOP) Unknown Completed [facility] Influenza Virus Vaccine Quad ID 18-64 YRS Unknown Completed [facility] Influenza Virus Vaccine Quad IM 3+ YRS Unknown Completed [facility] Pneumococcal Polysaccharide, PPSV23 (PNEUMOVAX) Unknown Completed [facility] TD, NOS Unknown Completed [facility] SARS-COV-2 COVID-19 PFIZER VACCINE Unknown Completed [facility] Pneumococcal 20 Conjugate, PCV20 (Prevnar 20) Unknown Completed [facility] Influenza Virus Vaccine Quad IM, Preserv and ABX Free 6 MO-64 YRS (FLUCELVAX) Unknown Completed [facility] SARS-COV-2 COVID-19 KASEY-SUCROSE VACCINE 12 YRS+, BIVALENT 0.3ML, IM, (PFIZER JUDD TOP) Unknown Completed [facility] Influenza Virus Vaccine,quad Im,preserve Free 65+ (FLUAD) Unknown Completed [facility] SARS-COV-2 COVID 19 KASEY SUCROSE VACCINE 12+, [id number], 0.3 ML (30 MCG), IM PFIZER (JUDD TOP) Unknown Completed [facility] Influenza Virus Vaccine Quad ID 18-64 YRS Unknown Completed [facility] Influenza Virus Vaccine Quad IM 3+ YRS Unknown Completed [facility] Pneumococcal Polysaccharide, PPSV23 (PNEUMOVAX) Unknown Completed [facility] TD, NOS Unknown Completed [facility] SARS-COV-2 COVID-19 PFIZER VACCINE Unknown Completed [facility] Pneumococcal 20 Conjugate, PCV20 (Prevnar 20) Unknown Completed [facility] Influenza Virus Vaccine Quad IM, Preserv and ABX Free 6 MO-64 YRS (FLUCELVAX) Unknown Completed [facility] SARS-COV-2 COVID-19 KASEY-SUCROSE VACCINE 12 YRS+, BIVALENT 0.3ML, IM, (PFIZER JUDD TOP) Unknown Completed [facility] Influenza Virus Vaccine,quad Im,preserve Free 65+ (FLUAD) Unknown Completed [facility] SARS-COV-2 COVID 19 KASEY SUCROSE VACCINE 12+, [id number], 0.3 ML (30 MCG), IM PFIZER (JUDD TOP) Unknown Completed [facility] Influenza Virus Vaccine Quad ID 18-64 YRS Unknown Completed [facility] Influenza Virus Vaccine Quad IM 3+ YRS Unknown Completed [facility] Pneumococcal Polysaccharide, PPSV23 (PNEUMOVAX) Unknown Completed [facility] TD, NOS Unknown Completed [facility] SARS-COV-2 COVID-19 PFIZER VACCINE Unknown Completed [facility] Pneumococcal 20 Conjugate, PCV20 (Prevnar 20) Unknown Completed [facility] Influenza Virus Vaccine Quad IM, Preserv and ABX Free 6 MO-64 YRS (FLUCELVAX) Unknown Completed [facility] SARS-COV-2 COVID-19 KASEY-SUCROSE VACCINE 12 YRS+, BIVALENT 0.3ML, IM, (PFIZER JUDD TOP) Unknown Completed [facility] Influenza Virus Vaccine,quad Im,preserve Free 65+ (FLUAD) Unknown Completed [facility] SARS-COV-2 COVID 19 KASEY SUCROSE VACCINE 12+, [id number], 0.3 ML (30 MCG), IM PFIZER (JUDD TOP) Unknown Completed [facility] Influenza Virus Vaccine Quad ID 18-64 YRS Unknown Completed [facility] Influenza Virus Vaccine Quad IM 3+ YRS Unknown Completed [facility] Pneumococcal Polysaccharide, PPSV23 (PNEUMOVAX) Unknown Completed [facility] TD, NOS Unknown Completed [facility] SARS-COV-2 COVID-19 PFIZER VACCINE Unknown Completed [facility] Pneumococcal 20 Conjugate, PCV20 (Prevnar 20) Unknown Completed [facility] Influenza Virus Vaccine Quad IM, Preserv and ABX Free 6 MO-64 YRS (FLUCELVAX) Unknown Completed [facility] SARS-COV-2 COVID-19 KASEY-SUCROSE VACCINE 12 YRS+, BIVALENT 0.3ML, IM, (PFIZER JUDD TOP) Unknown Completed [facility] Influenza Virus Vaccine,quad Im,preserve Free 65+ (FLUAD) Unknown Completed [facility] SARS-COV-2 COVID 19 KASEY SUCROSE VACCINE 12+, [id number], 0.3 ML (30 MCG), IM PFIZER (JUDD TOP) Unknown Completed [facility] Influenza Virus Vaccine Quad ID [id number] YRS Unknown Completed [facility] Influenza Virus Vaccine Quad IM 3+ YRS Unknown Completed [facility] Pneumococcal Polysaccharide, PPSV23 (PNEUMOVAX) Unknown Completed [facility] TD, NOS Unknown Completed [facility] SARS-COV-2 COVID-19 PFIZER VACCINE Unknown Completed [facility] Pneumococcal 20 Conjugate, PCV20 (Prevnar 20) Unknown Completed [facility] Influenza Virus Vaccine Quad IM, Preserv and ABX Free 6 MO-64 YRS (FLUCELVAX) Unknown Completed [facility] SARS-COV-2 COVID-19 KASEY-SUCROSE VACCINE 12 YRS+, BIVALENT 0.3ML, IM, (PFIZER JUDD TOP) Unknown Completed [facility] Influenza Virus Vaccine,quad Im,preserve Free 65+ (FLUAD) Unknown Completed [facility] SARS-COV-2 COVID 19 KASEY SUCROSE VACCINE 12+, [id number], 0.3 ML (30 MCG), IM PFIZER (JUDD TOP) Unknown Completed [facility] Influenza Virus Vaccine Quad ID 18-64 [id number] Unknown Completed [facility] Influenza Virus Vaccine Quad IM 3+ YRS Unknown Completed [facility] Pneumococcal Polysaccharide, PPSV23 (PNEUMOVAX) Unknown Completed [facility] TD, NOS Unknown Completed [facility] SARS-COV-2 COVID-19 PFIZER VACCINE Unknown Completed [facility] Pneumococcal 20 Conjugate, PCV20 (Prevnar 20) Unknown Completed [facility] Influenza Virus Vaccine Quad IM, Preserv and ABX Free 6 MO-64 YRS (FLUCELVAX) Unknown Completed [facility] SARS-COV-2 COVID-19 KASEY-SUCROSE VACCINE 12 YRS+, BIVALENT 0.3ML, IM, (PFIZER JUDD TOP) Unknown Completed [facility] Influenza Virus Vaccine,quad Im,preserve Free 65+ (FLUAD) Unknown Completed [facility] SARS-COV-2 COVID 19 KASEY SUCROSE VACCINE 12+, [id number], 0.3 ML (30 MCG), IM PFIZER (JUDD TOP) Unknown Completed [facility] Influenza Virus Vaccine Quad ID 18-64 [id number] Unknown Completed [facility] Influenza Virus Vaccine Quad IM 3+ YRS Unknown Completed [facility] Pneumococcal Polysaccharide, PPSV23 (PNEUMOVAX) Unknown Completed [facility] TD, NOS Unknown Completed [facility] SARS-COV-2 COVID-19 PFIZER VACCINE Unknown Completed [facility] Pneumococcal 20 Conjugate, PCV20 (Prevnar 20) Unknown Completed [facility] Influenza Virus Vaccine Quad IM, Preserv and ABX Free 6 MO-64 YRS (FLUCELVAX) Unknown Completed [facility] SARS-COV-2 COVID-19 KASEY-SUCROSE VACCINE 12 YRS+, BIVALENT 0.3ML, IM, (PFIZER JUDD TOP) Unknown Completed [facility] Influenza Virus Vaccine,quad Im,preserve Free 65+ (FLUAD) Unknown Completed [facility] SARS-COV-2 COVID 19 KASEY SUCROSE VACCINE 12+, , 0.3 ML (30 MCG), IM PFIZER (JUDD TOP) Unknown Completed [facility] Influenza Virus Vaccine Quad ID 18-64 [id number] Unknown Completed [facility] Influenza Virus Vaccine Quad IM 3+ YRS Unknown Completed [facility] Pneumococcal Polysaccharide, PPSV23 (PNEUMOVAX) Unknown Completed [facility] TD, NOS Unknown Completed [facility] SARS-COV-2 COVID-19 PFIZER VACCINE Unknown Completed [facility] Pneumococcal 20 Conjugate, PCV20 (Prevnar 20) Unknown Completed [facility] Influenza Virus Vaccine Quad IM, Preserv and ABX Free 6 MO-64 YRS (FLUCELVAX) Unknown Completed [facility] SARS-COV-2 COVID-19 KASEY-SUCROSE VACCINE 12 YRS+, BIVALENT 0.3ML, IM, (PFIZER JUDD TOP) Unknown Completed [facility] Influenza Virus Vaccine,quad Im,preserve Free 65+ (FLUAD) Unknown Completed [facility] SARS-COV-2 COVID 19 KASEY SUCROSE VACCINE 12+, , 0.3 ML (30 MCG), IM PFIZER (JUDD TOP) Unknown Completed [facility] Influenza Virus Vaccine Quad ID [id number] [id number] Unknown Completed [facility] Influenza Virus Vaccine Quad IM 3+ YRS Unknown Completed [facility] Pneumococcal Polysaccharide, PPSV23 (PNEUMOVAX) Unknown Completed [facility] TD, NOS Unknown Completed [facility] SARS-COV-2 COVID-19 PFIZER VACCINE Unknown Completed [facility] Pneumococcal 20 Conjugate, PCV20 (Prevnar 20) Unknown Completed [facility] Influenza Virus Vaccine Quad IM, Preserv and ABX Free 6 MO-64 YRS (FLUCELVAX) Unknown Completed [facility] SARS-COV-2 COVID-19 KASEY-SUCROSE VACCINE 12 YRS+, BIVALENT 0.3ML, IM, (PFIZER JUDD TOP) Unknown Completed [facility] Influenza Virus Vaccine,quad Im,preserve Free 65+ (FLUAD) Unknown Completed [facility] SARS-COV-2 COVID 19 KASEY SUCROSE VACCINE 12+, , 0.3 ML (30 MCG), IM PFIZER (JUDD TOP) Unknown Completed [facility] Influenza Virus Vaccine Quad ID [id number] [id number] Unknown Completed [facility] Influenza Virus Vaccine Quad IM 3+ YRS Unknown Completed [facility] Pneumococcal Polysaccharide, PPSV23 (PNEUMOVAX) Unknown Completed [facility] TD, NOS Unknown Completed [facility] SARS-COV-2 COVID-19 PFIZER VACCINE Unknown Completed [facility] Pneumococcal 20 Conjugate, PCV20 (Prevnar 20) Unknown Completed [facility] Influenza Virus Vaccine Quad IM, Preserv and ABX Free 6 MO-64 YRS (FLUCELVAX) Unknown Completed [facility] SARS-COV-2 COVID-19 KASEY-SUCROSE VACCINE 12 YRS+, BIVALENT 0.3ML, IM, (PFIZER JUDD TOP) Unknown Completed [facility] Influenza Virus Vaccine,quad Im,preserve Free 65+ (FLUAD) Unknown Completed [facility] SARS-COV-2 COVID 19 KASEY SUCROSE VACCINE 12+, , 0.3 ML (30 MCG), IM PFIZER (JUDD TOP) Unknown Completed [facility] Influenza Virus Vaccine Quad ID 18-64 YRS Unknown Completed [facility] Influenza Virus Vaccine Quad IM 3+ YRS Unknown Completed [facility] Pneumococcal Polysaccharide, PPSV23 (PNEUMOVAX) Unknown Completed [facility] TD, NOS Unknown Completed [facility] SARS-COV-2 COVID-19 PFIZER VACCINE Unknown Completed [facility] Pneumococcal 20 Conjugate, PCV20 (Prevnar 20) Unknown Completed [facility] Influenza Virus Vaccine Quad IM, Preserv and ABX Free 6 MO-64 YRS (FLUCELVAX) Unknown Completed [facility] SARS-COV-2 COVID-19 KASEY-SUCROSE VACCINE 12 YRS+, BIVALENT 0.3ML, IM, (PFIZER JUDD TOP) Unknown Completed [facility] Influenza Virus Vaccine,quad Im,preserve Free 65+ (FLUAD) Unknown Completed [facility] SARS-COV-2 COVID 19 KASEY SUCROSE VACCINE 12+, [id number], 0.3 ML (30 MCG), IM PFIZER (JUDD TOP) Unknown Completed [facility] Influenza Virus Vaccine Quad ID 18-64 YRS Unknown Completed [facility] Influenza Virus Vaccine Quad IM 3+ YRS Unknown Completed [facility] Pneumococcal Polysaccharide, PPSV23 (PNEUMOVAX) Unknown Completed [facility] TD, NOS Unknown Completed [facility] SARS-COV-2 COVID-19 PFIZER VACCINE Unknown Completed [facility] Pneumococcal 20 Conjugate, PCV20 (Prevnar 20) Unknown Completed [facility] Influenza Virus Vaccine Quad IM, Preserv and ABX Free 6 MO-64 YRS (FLUCELVAX) Unknown Completed [facility] SARS-COV-2 COVID-19 KASEY-SUCROSE VACCINE 12 YRS+, BIVALENT 0.3ML, IM, (PFIZER JUDD TOP) Unknown Completed [facility] Influenza Virus Vaccine,quad Im,preserve Free 65+ (FLUAD) Unknown Completed [facility] SARS-COV-2 COVID 19 KASEY SUCROSE VACCINE 12+, , 0.3 ML (30 MCG), IM PFIZER (JUDD TOP) Unknown Completed [facility] Influenza Virus Vaccine Quad ID 18-64 YRS Unknown Completed [facility] Influenza Virus Vaccine Quad IM 3+ YRS Unknown Completed [facility] Pneumococcal Polysaccharide, PPSV23 (PNEUMOVAX) Unknown Completed [facility] TD, NOS Unknown Completed [facility] SARS-COV-2 COVID-19 PFIZER VACCINE Unknown Completed [facility] Pneumococcal 20 Conjugate, PCV20 (Prevnar 20) Unknown Completed [facility] Influenza Virus Vaccine Quad IM, Preserv and ABX Free 6 MO-64 YRS (FLUCELVAX) Unknown Completed [facility] SARS-COV-2 COVID-19 KASEY-SUCROSE VACCINE 12 YRS+, BIVALENT 0.3ML, IM, (PFIZER JUDD TOP) Unknown Completed [facility] Influenza Virus Vaccine,quad Im,preserve Free 65+ (FLUAD) Unknown Completed [facility] SARS-COV-2 COVID 19 KASEY SUCROSE VACCINE 12+, [id number], 0.3 ML (30 MCG), IM PFIZER (JUDD TOP) Unknown Completed [facility] Influenza Virus Vaccine Quad ID 18-64 YRS Unknown Completed [facility] Influenza Virus Vaccine Quad IM 3+ YRS Unknown Completed [facility] Pneumococcal Polysaccharide, PPSV23 (PNEUMOVAX) Unknown Completed [facility] TD, NOS Unknown Completed [facility] SARS-COV-2 COVID-19 PFIZER VACCINE Unknown Completed [facility] Pneumococcal 20 Conjugate, PCV20 (Prevnar 20) Unknown Completed [facility] Influenza Virus Vaccine Quad IM, Preserv and ABX Free 6 MO-64 YRS (FLUCELVAX) Unknown Completed [facility] SARS-COV-2 COVID-19 KASEY-SUCROSE VACCINE 12 YRS+, BIVALENT 0.3ML, IM, (PFIZER JUDD TOP) Unknown Completed [facility] Influenza Virus Vaccine,quad Im,preserve Free 65+ (FLUAD) Unknown Completed [facility] SARS-COV-2 COVID 19 KASEY SUCROSE VACCINE 12+, [id number], 0.3 ML (30 MCG), IM PFIZER (JUDD TOP) Unknown Completed [facility] Influenza Virus Vaccine Quad ID 18-64 YRS Unknown Completed [facility] Influenza Virus Vaccine Quad IM 3+ YRS Unknown Completed [facility] Pneumococcal Polysaccharide, PPSV23 (PNEUMOVAX) Unknown Completed [facility] TD, NOS Unknown Completed [facility] SARS-COV-2 COVID-19 PFIZER VACCINE Unknown Completed [facility] Pneumococcal 20 Conjugate, PCV20 (Prevnar 20) Unknown Completed [facility] Influenza Virus Vaccine Quad IM, Preserv and ABX Free 6 MO-64 YRS (FLUCELVAX) Unknown Completed [facility] SARS-COV-2 COVID-19 KASEY-SUCROSE VACCINE 12 YRS+, BIVALENT 0.3ML, IM, (PFIZER JUDD TOP) Unknown Completed [facility] Influenza Virus Vaccine,quad Im,preserve Free 65+ (FLUAD) Unknown Completed [facility] SARS-COV-2 COVID 19 KASEY SUCROSE VACCINE 12+, , 0.3 ML (30 MCG), IM PFIZER (JUDD TOP) Unknown Completed [facility] Influenza Virus Vaccine Quad ID 18-64 YRS Unknown Completed [facility] Influenza Virus Vaccine Quad IM 3+ YRS Unknown Completed [facility] Pneumococcal Polysaccharide, PPSV23 (PNEUMOVAX) Unknown Completed [facility] TD, NOS Unknown Completed [facility] SARS-COV-2 COVID-19 PFIZER VACCINE Unknown Completed [facility] Pneumococcal 20 Conjugate, PCV20 (Prevnar 20) Unknown Completed [facility] Influenza Virus Vaccine Quad IM, Preserv and ABX Free 6 MO-64 YRS (FLUCELVAX) Unknown Completed [facility] SARS-COV-2 COVID-19 KASEY-SUCROSE VACCINE 12 YRS+, BIVALENT 0.3ML, IM, (PFIZER JUDD TOP) Unknown Completed [facility] Influenza Virus Vaccine,quad Im,preserve Free 65+ (FLUAD) Unknown Completed [facility] SARS-COV-2 COVID 19 KASEY SUCROSE VACCINE 12+, , 0.3 ML (30 MCG), IM PFIZER (JUDD TOP) Unknown Completed [facility] Influenza Virus Vaccine Quad ID 18-64 YRS Unknown Completed [facility] Influenza Virus Vaccine Quad IM 3+ YRS Unknown Completed [facility] Pneumococcal Polysaccharide, PPSV23 (PNEUMOVAX) Unknown Completed [facility] TD, NOS Unknown Completed [facility] SARS-COV-2 COVID-19 PFIZER VACCINE Unknown Completed [facility] Pneumococcal 20 Conjugate, PCV20 (Prevnar 20) Unknown Completed [facility] Influenza Virus Vaccine Quad IM, Preserv and ABX Free 6 MO-64 YRS (FLUCELVAX) Unknown Completed [facility] SARS-COV-2 COVID-19 KASEY-SUCROSE VACCINE 12 YRS+, BIVALENT 0.3ML, IM, (PFIZER JUDD TOP) Unknown Completed [facility] Influenza Virus Vaccine,quad Im,preserve Free 65+ (FLUAD) Unknown Completed [facility] SARS-COV-2 COVID 19 KASEY SUCROSE VACCINE 12+, [id number], 0.3 ML (30 MCG), IM PFIZER (JUDD TOP) Unknown Completed [facility] Influenza Virus Vaccine Quad ID 18-64 YRS Unknown Completed [facility] Influenza Virus Vaccine Quad .5 mL IM 6+ MO (FLUZONE/FLULAVAL/F LUARIX) Unknown Completed [facility] Pneumococcal Polysaccharide, PPSV23 (PNEUMOVAX) Unknown Completed [facility] TD, NOS Unknown Completed [facility] SARS-COV-2 COVID-19 PFIZER VACCINE Unknown Completed [facility] Pneumococcal 20 Conjugate, PCV20 (Prevnar 20) Unknown Completed [facility] Influenza Virus Vaccine Quad IM, Preserv and ABX Free 6 MO-64 YRS (FLUCELVAX) Unknown Completed [facility] SARS-COV-2 COVID-19 KASEY-SUCROSE VACCINE 12 YRS+, BIVALENT 0.3ML, IM, (PFIZER JUDD TOP) Unknown Completed [facility] Influenza Virus Vaccine,quad Im,preserve Free 65+ (FLUAD) Unknown Completed [facility] SARS-COV-2 COVID 19 KASEY SUCROSE VACCINE 12+, , 0.3 ML (30 MCG), IM PFIZER (JUDD TOP) Unknown Completed [facility] Vital Signs Vital Name Observation Time Observation Value Comments S ource Systolic blood pressure 2024-04-14 20:33:00 112 mm[Hg] [facility] Diastolic blood pressure 2024-04-14 20:33:00 69 mm[Hg] [facility] Heart rate 2024-04-14 20:33:00 101 /min [facility] Body temperature 2024-04-14 20:33:00 36.22 [facility] Body height 2024-04-14 20:33:00 157.5 cm [facility] Body weight 2024-04-14 20:33:00 64.139 kg [facility] BMI 2024-04-14 20:33:00 25.86 kg/m2 [facility] Oxygen saturation in Arterial blood by Pulse oximetry 2024-04-14 20:33:00 96 /min [facility] Systolic blood pressure 2023-10-26 15:35:00 109 mm[Hg] [facility] Diastolic blood pressure 2023-10-26 15:35:00 77 mm[Hg] [facility] Heart rate 2023-10-26 15:35:00 95 /min [facility] Body temperature 2023-10-26 15:35:00 36.72 [facility] Respiratory rate 2023-10-26 15:35:00 18 /min [facility] Body height 2023-10-26 15:35:00 154.9 cm [facility] Body weight 2023-10-26 15:35:00 65.318 kg [facility] BMI 2023-10-26 15:35:00 27.21 kg/m2 [facility] Oxygen saturation in Arterial blood by Pulse oximetry 2023-10-26 15:35:00 97 /min [facility] Systolic blood pressure 2023-05-22 16:18:00 131 mm[Hg] [facility] Diastolic blood pressure 2023-05-22 16:18:00 71 mm[Hg] [facility] Heart rate 2023-05-22 16:18:00 132 /min [facility] Oxygen saturation in Arterial blood by Pulse oximetry 2023-05-22 16:18:00 94 /min [facility] Systolic blood pressure 2023-05-22 16:18:00 131 mm[Hg] [facility] Diastolic blood pressure 2023-05-22 16:18:00 71 mm[Hg] [facility] Heart rate 2023-05-22 16:18:00 132 /min [facility] Oxygen saturation in Arterial blood by Pulse oximetry 2023-05-22 16:18:00 94 /min [facility] Systolic blood pressure 2023-04-26 15:09:00 120 mm[Hg] [facility] Diastolic blood pressure 2023-04-26 15:09:00 82 mm[Hg] [facility] Heart rate 2023-04-26 15:09:00 97 /min [facility] 2023-04-26 15:09:00 36.72 [facility] Respiratory rate 2023-04-26 15:09:00 18 /min [facility] Body height 2023-04-26 15:09:00 157.5 cm [facility] Body weight 2023-04-26 15:09:00 55.792 kg [facility] BMI 2023-04-26 15:09:00 22.50 kg/m2 [facility] Oxygen saturation in Arterial blood by Pulse oximetry 2023-04-26 15:09:00 92 /min [facility] Systolic blood pressure 2023-04-26 15:06:00 120 mm[Hg] [facility] Diastolic blood pressure 2023-04-26 15:06:00 82 mm[Hg] [facility] Heart rate 2023-04-26 15:06:00 97 /min [facility] Body temperature 2023-04-26 15:06:00 36.72 [facility] Respiratory rate 2023-04-26 15:06:00 18 /min [facility] Body weight 2023-04-26 15:06:00 55.792 kg [facility] BMI 2023-04-26 15:06:00 22.50 kg/m2 [facility] Oxygen saturation in Arterial blood by Pulse oximetry 2023-04-26 15:06:00 92 /min [facility] Systolic blood pressure 2023-03-23 16:48:00 130 mm[Hg] [facility] Diastolic blood pressure 2023-03-23 16:48:00 84 mm[Hg] [facility] Heart rate 2023-03-23 16:48:00 91 /min [facility] Body height 2023-03-23 16:48:00 157.5 cm [facility] Body weight 2023-03-23 16:48:00 55.792 kg [facility] BMI 2023-03-23 16:48:00 22.50 kg/m2 [facility] Oxygen saturation in Arterial blood by Pulse oximetry 2023-03-23 16:48:00 96 /min [facility] Systolic blood pressure 2022-10-26 17:37:00 134 mm[Hg] [facility] Diastolic blood pressure 2022-10-26 17:37:00 87 mm[Hg] [facility] Heart rate 2022-10-26 17:37:00 91 /min [facility] Body temperature 2022-10-26 17:37:00 37.11 [facility] Respiratory rate 2022-10-26 17:37:00 18 /min [facility] Body height 2022-10-26 17:37:00 157.5 cm [facility] Body weight 2022-10-26 17:37:00 55.838 kg [facility] BMI 2022-10-26 17:37:00 22.52 kg/m2 [facility] Oxygen saturation in Arterial blood by Pulse oximetry 2022-10-26 17:37:00 98 /min [facility] Systolic blood pressure 2022-06-30 16:08:00 113 mm[Hg] [facility] Diastolic blood pressure 2022-06-30 16:08:00 73 mm[Hg] [facility] Heart rate 2022-06-30 16:08:00 94 /min [facility] Body temperature 2022-06-30 16:08:00 36 [facility] Body height 2022-06-30 16:08:00 157.5 cm [facility] Body weight 2022-06-30 16:08:00 65.772 kg [facility] BMI 2022-06-30 16:08:00 26.52 kg/m2 [facility] Oxygen saturation in Arterial blood by Pulse oximetry 2022-06-30 16:08:00 100 /min [facility] HEIGHT 2021-09-08 09:00:00 155 cm WEIGHT 2021-09-08 04:00:00 66.316 kg HEIGHT 2021-09-08 09:00:00 155 cm WEIGHT 2021-09-08 04:00:00 66.316 kg Systolic blood pressure 2021-09-15 11:22:00 83 mm[Hg] [facility] Diastolic blood pressure 2021-09-15 11:22:00 59 mm[Hg] [facility] Heart rate 2021-09-15 11:22:00 112 /min [facility] Body temperature 2021-09-15 11:22:00 35.56 Suzy [facility] Respiratory rate 2021-09-15 11:22:00 20 /min [facility] Oxygen saturation in Arterial blood by Pulse oximetry 2021-09-15 11:22:00 94 /min [facility] Body height 2021-09-08 09:00:00 155 cm [facility] Body weight 2021-09-08 04:00:00 66.316 kg [facility] BMI 2021-09-08 04:00:00 27.60 kg/m2 [facility] Procedures Procedure Date / Time Performed Performing Clinician Source HOME HEALTH - OTHER 2023-11-14 06:01:00 Doctor Lalitha leonardo, [facility] CT LUNG CANCER SCREENING 2023-11-01 15:31:16 Melanie [facility] COMP. METABOLIC PANEL (04539) 2023-10-26 17:37:00 Gay [facility] LIPID PANEL (54588)(TOTAL CHOLESTEROL, TRIGLYCERIDES, HDL) 2023-10-26 17:37:00 Gay [facility] CBC WITH DIFF 2023-10-26 17:37:00 Gay [facility] GLYCOSYLATED HEMOGLOBIN (A1C) 2023-10-26 17:37:00 Gay [facility] FLU VACC([id number]),65+YR,0.5 ML,IM,ADJUVANTED,QUAD(FLUA D) 2023-10-26 15:55:56 Gay [facility] SARS-COV-2 COVID 19 KASEY SUCROSE VACCINE 12+, , 0.3 ML (30 MCG), IM PFIZER (JUDD TOP) 2023-10-26 15:55:56 Gay [facility] TRANSTHORACIC ECHO (TTE) COMPLETE W/ CONTRAST 2023-10-26 14:51:46 Israel Ye [facility] HE[facility] - OTHER 2023-10-11 06:01:00 Doctor Lalitha leonardo, [facility] - OTHER 2023-06-05 05:01:00 Doctor Lalitha leonardo, [facility] CAROTID DUPLEX BILATERAL - BY VASCULAR LAB 2023-06-04 16:22:00 Israel Ye [facility] CONSENT/REFUSAL FOR DIAGNOSIS AND TREATMENT 2023-06-04 15:46:35 Doctor Unassigned, [facility] HB ECG ROUTINE & RHYTHM STRIP 2023-05-22 16:20:28 Israel Ye [facility] HB ECG ROUTINE & RHYTHM STRIP 2023-05-22 16:20:28 Israel Ye [facility] COMP. METABOLIC PANEL (65229) 2023-04-26 15:44:00 Gay [facility] LIPID PANEL (09977)(TOTAL CHOLESTEROL, TRIGLYCERIDES, HDL) 2023-04-26 15:44:00 Gay [facility] CBC WITH DIFF 2023-04-26 15:44:00 Gay Crystal [facility] VITAMIN D, 25-OH 2023-04-26 15:44:00 Gay Crystal [facility] 485 2023-03-20 05:01:00 Doctor Unass igned, [facility] CBC WITH DIFF 2022-10-26 18:51:00 Gay Crystal [facility] SARS-COV-2 COVID-19 KASEY-SUCROSE VACCINE 12 YRS+, BIVALENT 0.3ML, IM, (PFIZER JUDD TOP BOOSTER) 2022-10-26 18:08:55 Gay [facility] ASSIGNMENT OF BENEFITS 2022-10-26 17:12:52 Docto r Unassigned, [facility] FLU VACC (), 6 MO-64 YRS, .5ML, IM, QUAD (FLUCELVAX) 2022-06-30 16:41:22 Jahaira [facility] PNEUMOCOCCAL 20 CONJUGATE (PREVNAR 20) VACCINE 2022-06-30 16:41:22 Jahaira Diamond [facility] HE[facility] - OTHER 2022-04-14 05:01:00 Doctor Lalitha nassigned, [facility] [place] [id number] 2022-04-09 05:01:00 Doctor Unass igned, [facility] - OTHER 2022-03-23 05:01:00 Doctor Lalitha hookersigned, [facility] [place] [id number] 2022-02-24 05:01:00 Doctor Unass igned, [facility] SARS-COV2/RT-PCR ([facility]) 2021-09-15 04:41:00 Kyra Shaffer [facility] SARS-COV2/RT-PCR ([facility]) 2021-09-14 16:34:00 Neredia Norman [facility] CBC W/PLT COUNT & AUTO DIFFERENTIAL 2021-09-14 05:32:[facility] CBC W/PLT COUNT & AUTO DIFFERENTIAL 2021-09-14 05:32:00 Krish [facility] VANCOMYCIN LEVEL, TROUGH 2021-09-13 13:54:00 Ledy tello [facility] CBC W/PLT COUNT & AUTO DIFFERENTIAL 2021-09-13 13:54:00 Krish [facility] CBC W/PLT COUNT & AUTO DIFFERENTIAL 2021-09-13 13:54:00 [facility] ECG 12-LEAD 2021-09-12 17:48:43 Unknown, H[facility]7 Doctor Taisha [facility] ECG 12-LEAD 2021-09-12 17:48:43 Unknown, H[facility]7 Doctor C [facility] VANCOMYCIN LEVEL, TROUGH 2021-09-12 13:07:00 Ledy tello [facility] CBC W/PLT COUNT & AUTO DIFFERENTIAL 2021-09-12 13:07:00 Krish [facility] BASIC METABOLIC PANEL (7) 2021-09-12 13:07:00 Ti jesse [facility] CBC W/PLT COUNT & AUTO DIFFERENTIAL 2021-09-12 13:07:00 Krish [facility] LACTIC ACID, VENOUS 2021-09-12 13:06:00 Karen marquez [facility] BASIC METABOLIC PANEL (7) 2021-09-11 13:29:00 Tom molina [facility] MAGNESIUM 2021-09-11 13:29:00 Jared sepulveda [facility] VANCOMYCIN LEVEL, TROUGH 2021-09-10 11:38:00 Josemanuel Tay [facility] CALCIUM 2021-09-10 05:55:00 Soledad Lloyd [facility] CBC W/PLT COUNT & AUTO DIFFERENTIAL 2021-09-10 03:45:00 Dutch Belle [facility] BASIC METABOLIC PANEL (7) 2021-09-10 03:45:00 Dutch Salinas [facility] CALCIUM, IONIZED 2021-09-10 03:45:00 Grisel Belle [facility] PHOSPHORUS 2021-09-10 03:45:00 uDtch Belle [facility] CBC W/PLT COUNT & AUTO DIFFERENTIAL 2021-09-10 03:45:00 Dutch Belle [facility] MAGNESIUM 2021-09-10 03:45:00 Dutch Belle [facility] ALBUMIN 2021-09-10 03:45:00 Soledad Lloyd [facility] VANCOMYCIN LEVEL, TROUGH 2021-09-09 19:17:00 Josemanuel Tay [facility] CBC W/PLT COUNT & AUTO DIFFERENTIAL 2021-09-09 03:33:00 Dutch Belle [facility] BASIC METABOLIC PANEL (7) 2021-09-09 03:33:00 Dutch Salinas [facility] CALCIUM, IONIZED 2021-09-09 03:33:00 Grisel Belle [facility] PHOSPHORUS 2021-09-09 03:33:00 Dutch Belle [facility] CBC W/PLT COUNT & AUTO DIFFERENTIAL 2021-09-09 03:33:00 Dutch Belle [facility] MAGNESIUM 2021-09-09 03:33:00 Dutch Belle [facility] TRANSESOPHAGEAL ECHO 2021-09-08 11:20:43 [facility] Mini josh [facility] COLOR-FLOW MAPPING 2021-09-08 06:45:11 [facility] CONT WAVE PULSED DOPPLER 2021-09-08 06:45:11 [facility] BLOOD CULTURE 2021-09-08 00:29:00 [facility] COMPREHENSIVE METABOLIC PANEL 2021-09-08 00:28:00 [facility] MAGNESIUM 2021-09-08 00:28:00 [facility] C-REACTIVE PROTEIN 2021-09-08 00:28:00 [facility] LACTIC ACID, VENOUS 2021-09-08 00:28:00 [facility] BLOOD GAS, VENOUS 2021-09-08 00:28:00 DaFiorella hair [facility] CBC W/PLT COUNT & AUTO DIFFERENTIAL 2021-09-08 00:27:00 [facility] BLOOD CULTURE 2021-09-08 00:27:00 Kyra Shaffer [facility] CBC W/PLT COUNT & AUTO DIFFERENTIAL 2021-09-08 00:27:00 Kyra Shaffer [facility] Plan of Care Planned Activity Planned Date Details Comments Source Future Scheduled Test 2027-02-25 00:00:00 DTAP/TDAP/TD VACCINES (2 - Td or Tdap) [code = DTAP/TDAP/TD VACCINES (2 - Td or Tdap)] [facility] Future Scheduled Test 2027-02-25 00:00:00 DTAP/TDAP/TD VACCINES (2 - Td or Tdap) [code = DTAP/TDAP/TD VACCINES (2 - Td or Tdap)] [facility] Future Scheduled Test 2027-02-25 00:00:00 DTAP/TDAP/TD VACCINES (2 - Td or Tdap) [code = DTAP/TDAP/TD VACCINES (2 - Td or Tdap)] [facility] Future Scheduled Test 2027-02-25 00:00:00 DTAP/TDAP/TD VACCINES (2 - Td or Tdap) [code = DTAP/TDAP/TD VACCINES (2 - Td or Tdap)] [facility] Future Scheduled Test 2027-02-25 00:00:00 DTAP/TDAP/TD VACCINES (2 - Td or Tdap) [code = DTAP/TDAP/TD VACCINES (2 - Td or Tdap)] [facility] Future Scheduled Test 2023-12-29 00:00:00 Screening for malignant neoplasm of cervix (procedure) [code = 154598745] [facility] Future Scheduled Test 2023-06-18 00:00:00 PNEUMOCOCCAL VACCINE 0-64 YRS (2 of 2 - PPSV23) [code = PNEUMOCOCCAL VACCINE 0-64 YRS (2 of 2 - PPSV23)] [facility] Future Scheduled Test 2023-06-18 00:00:00 PNEUMOCOCCAL VACCINE 0-64 YRS (2 of 2 - PPSV23) [code = PNEUMOCOCCAL VACCINE 0-64 YRS (2 of 2 - PPSV23)] [facility] Future Scheduled Test 2023-05-18 00:00:00 Influenza Vaccine (#1) [code = Influenza Vaccine (#1)] [facility] Future Scheduled Test 2022-09-17 00:00:00 DEPRESSION SCREENING (12+) [code = DEPRESSION SCREENING (12+)] [facility] Future Scheduled Test 2022-09-17 00:00:00 FALLS RISK SCREENING [code = FALLS RISK SCREENING] [facility] Future Scheduled Test 2022-09-17 00:00:00 DEPRESSION SCREENING (12+) [code = DEPRESSION SCREENING (12+)] [facility] Future Scheduled Test 2022-09-17 00:00:00 FALLS RISK SCREENING [code = FALLS RISK SCREENING] [facility] Future Scheduled Test 2022-09-08 00:00:00 Tobacco Cessation Counseling and Screening (12+) [code = Tobacco Cessation Counseling and Screening (12+)] [facility] Future Scheduled Test 2022-09-08 00:00:00 Tobacco Cessation Counseling and Screening (12+) [code = Tobacco Cessation Counseling and Screening (12+)] [facility] Future Scheduled Test 2022-05-18 00:00:00 INFLUENZA VACCINE (#1) [code = INFLUENZA VACCINE (#1)] [facility] Future Scheduled Test 2022-05-18 00:00:00 INFLUENZA VACCINE (#1) [code = INFLUENZA VACCINE (#1)] [facility] Future Scheduled Test 2021-09-17 00:00:00 DEPRESSION SCREENING (12+) [code = DEPRESSION SCREENING (12+)] [facility] Future Scheduled Test 2021-09-17 00:00:00 DEPRESSION SCREENING (12+) [code = DEPRESSION SCREENING (12+)] [facility] Future Scheduled Test 2021-09-17 00:00:00 DEPRESSION SCREENING (12+) [code = DEPRESSION SCREENING (12+)] [facility] Future Scheduled Test 2021-06-02 00:00:00 COVID-19 VACCINE (3 - Booster for Pfizer series) [code = COVID-19 VACCINE (3 - Booster for Pfizer series)] [facility] Future Scheduled Test 2021-06-02 00:00:00 COVID-19 VACCINE (3 - Booster for Pfizer series) [code = COVID-19 VACCINE (3 - Booster for Pfizer series)] [facility] Future Scheduled Test 2021-05-18 00:00:00 INFLUENZA VACCINE (#1) [code = INFLUENZA VACCINE (#1)] [facility] Future Scheduled Test 2021-05-18 00:00:00 INFLUENZA VACCINE (#1) [code = INFLUENZA VACCINE (#1)] [facility] Future Scheduled Test 2021-05-02 00:00:00 COVID-19 VACCINE (3 - Booster for Pfizer series) [code = COVID-19 VACCINE (3 - Booster for Pfizer series)] [facility] Future Scheduled Test 2021-05-02 00:00:00 COVID-19 VACCINE (3 - Booster for Pfizer series) [code = COVID-19 VACCINE (3 - Booster for Pfizer series)] [facility] Future Scheduled Test 2021-01-25 00:00:00 COVID-19 VACCINE (3 - Booster for Pfizer series) [code = COVID-19 VACCINE (3 - Booster for Pfizer series)] [facility] Future Scheduled Test 2019-06-18 00:00:00 PNEUMOCOCCAL VACCINE 0-64 YRS (2 - PCV) [code = PNEUMOCOCCAL VACCINE 0-64 YRS (2 - PCV)] [facility] Future Scheduled Test 2019-06-18 00:00:00 PNEUMOCOCCAL 65+ YRS (2 - PCV) [code = PNEUMOCOCCAL 65+ YRS (2 - PCV)] [facility] Future Scheduled Test 2007 00:00:00 SHINGLES VACCINES (1 of 2) [code = SHINGLES VACCINES (1 of 2)] [facility] Future Scheduled Test 2007 00:00:00 SHINGLES VACCINES (1 of 2) [code = SHINGLES VACCINES (1 of 2)] [facility] Future Scheduled Test 2007 00:00:00 SHINGLES VACCINES (1 of 2) [code = SHINGLES VACCINES (1 of 2)] [facility] Future Scheduled Test 2007 00:00:00 SHINGLES VACCINES (1 of 2) [code = SHINGLES VACCINES (1 of 2)] [facility] Future Scheduled Test 2007 00:00:00 SHINGLES VACCINES (1 of 2) [code = SHINGLES VACCINES (1 of 2)] [facility] Future Scheduled Test 2002 00:00:00 Lipid panel (procedure) [code = 37481351] [facility] Future Scheduled Test 2002 00:00:00 Lipid panel (procedure) [code = 16297485] [facility] Future Scheduled Test 2002 00:00:00 Lipid panel (procedure) [code = 62644242] [facility] Future Scheduled Test 2002 00:00:00 Lipid panel (procedure) [code = 14403889] [facility] Future Scheduled Test 2002 00:00:00 Lipid panel (procedure) [code = 47333114] [facility] Future Scheduled Test 1999-03-18 00:00:00 MEDICARE ANNUAL WELLNESS (YEAR 2 or FIRST YEAR if no IPPE) [code = MEDICARE ANNUAL WELLNESS (YEAR 2 or FIRST YEAR if no IPPE)] [facility] Future Scheduled Test 1999-03-18 00:00:00 MEDICARE ANNUAL WELLNESS (YEAR 2 or FIRST YEAR if no IPPE) [code = MEDICARE ANNUAL WELLNESS (YEAR 2 or FIRST YEAR if no IPPE)] [facility] Future Scheduled Test 1999-03-18 00:00:00 MEDICARE ANNUAL WELLNESS (YEAR 2 or FIRST YEAR if no IPPE) [code = MEDICARE ANNUAL WELLNESS (YEAR 2 or FIRST YEAR if no IPPE)] [facility] Future Scheduled Test 1999-03-18 00:00:00 MEDICARE ANNUAL WELLNESS (YEAR 2 or FIRST YEAR if no IPPE) [code = MEDICARE ANNUAL WELLNESS (YEAR 2 or FIRST YEAR if no IPPE)] [facility] Future Scheduled Test 1999-03-18 00:00:00 MEDICARE ANNUAL WELLNESS (YEAR 2 or FIRST YEAR if no IPPE) [code = MEDICARE ANNUAL WELLNESS (YEAR 2 or FIRST YEAR if no IPPE)] [facility] Future Scheduled Test 1978 00:00:00 Screening for malignant neoplasm of cervix (procedure) [code = 242330332] [facility] Future Scheduled Test 1978 00:00:00 Screening for malignant neoplasm of cervix (procedure) [code = 639994764] [facility] Future Scheduled Test 1978 00:00:00 Screening for malignant neoplasm of cervix (procedure) [code = 937899924] [facility] Future Scheduled Test 1978 00:00:00 Screening for malignant neoplasm of cervix (procedure) [code = 938140504] [facility] Future Scheduled Test 1975 00:00:00 HEPATITIS C SCREENING [code = HEPATITIS C SCREENING] [facility] Future Scheduled Test 1975 00:00:00 HEPATITIS C SCREENING [code = HEPATITIS C SCREENING] [facility] Future Scheduled Test 1975 00:00:00 HEPATITIS C SCREENING [code = HEPATITIS C SCREENING] [facility] Future Scheduled Test 1975 00:00:00 HEPATITIS C SCREENING [code = HEPATITIS C SCREENING] [facility] Future Scheduled Test 1975 00:00:00 HEPATITIS C SCREENING [code = HEPATITIS C SCREENING] [facility] Future Scheduled Test 1972 00:00:00 Human immunodeficiency virus screening (procedure) [code = 839034861] [facility] Future Scheduled Test 1957 00:00:00 Screening for malignant neoplasm of breast (procedure) [code = 356516004] [facility] Future Scheduled Test 1957 00:00:00 Screening for malignant neoplasm of colon (procedure) [code = 613806591] [facility] Future Scheduled Test 1957 00:00:00 Screening for malignant neoplasm of breast (procedure) [code = 734036557] [facility] Future Scheduled Test 1957 00:00:00 Screening for malignant neoplasm of colon (procedure) [code = 171740113] [facility] Future Scheduled Test 1957 00:00:00 Screening for malignant neoplasm of breast (procedure) [code = 985446871] [facility] Future Scheduled Test 1957 00:00:00 CT Colonography (combo) [code = CT Colonography (combo)] [facility] Future Scheduled Test 1957 00:00:00 Screening for malignant neoplasm of colon (procedure) [code = 978659826] [facility] Future Scheduled Test 1957 00:00:00 Screening for malignant neoplasm of colon (procedure) [code = 304308573] [facility] Future Scheduled Test 1957 00:00:00 Screening for malignant neoplasm of colon (procedure) [code = 759335858] [facility] Future Scheduled Test 1957 00:00:00 Screening for malignant neoplasm of colon (procedure) [code = 569014556] [facility] Future Scheduled Test 1957 00:00:00 Sigmoidoscopy [code = Sigmoidoscopy] [facility] Future Scheduled Test 1957 00:00:00 Screening for malignant neoplasm of breast (procedure) [code = 725026327] [facility] Future Scheduled Test 1957 00:00:00 CT Colonography (combo) [code = CT Colonography (combo)] [facility] Future Scheduled Test 1957 00:00:00 Screening for malignant neoplasm of colon (procedure) [code = 945163554] [facility] Future Scheduled Test 1957 00:00:00 Screening for malignant neoplasm of colon (procedure) [code = 589821512] [facility] Future Scheduled Test 1957 00:00:00 DXA SCAN [code = DXA SCAN] [facility] Future Scheduled Test 1957 00:00:00 Screening for malignant neoplasm of colon (procedure) [code = 187749538] [facility] Future Scheduled Test 1957 00:00:00 Screening for malignant neoplasm of colon (procedure) [code = 962266790] [facility] Future Scheduled Test 1957 00:00:00 Sigmoidoscopy [code = Sigmoidoscopy] [facility] Future Scheduled Test 1957 00:00:00 Screening for malignant neoplasm of breast (procedure) [code = 307943018] [facility] Future Scheduled Test 1957 00:00:00 CT Colonography (combo) [code = CT Colonography (combo)] [facility] Future Scheduled Test 1957 00:00:00 Screening for malignant neoplasm of colon (procedure) [code = 718348166] [facility] Future Scheduled Test 1957 00:00:00 Screening for malignant neoplasm of colon (procedure) [code = 947594748] [facility] Future Scheduled Test 1957 00:00:00 DXA SCAN [code = DXA SCAN] [facility] Future Scheduled Test 1957 00:00:00 Screening for malignant neoplasm of colon (procedure) [code = 745714643] [facility] Future Scheduled Test 1957 00:00:00 Screening for malignant neoplasm of colon (procedure) [code = 372560858] [facility] Future Scheduled Test 1957 00:00:00 Sigmoidoscopy [code = Sigmoidoscopy] [facility] Encounters Start Date/Time End Date/Time Encounter Type Admission Type Attending [facility] Care Department Encounter ID Source 2021-07-18 16:13:03 Emergency [facility] [id number] [facility] 2021-07-16 02:15:15 Emergency [facility] [id number] [facility] 2024-10-15 11:30:00 2024-10-15 11:30:00 Outpatient R JAHAIRA DIAMOND OGECHUKWU [facility] [id number] [facility] 2024-08-04 00:00:00 2024 12:39:31 Telephone Jahaira Diamond [facility] 1.2.840.114 350.1.13.10 4.2.7.2.686 [id number] [facility] 2024 10:30:00 2024 10:30:00 Outpatient R JAHAIRA DIAMOND OGECHUKWU [facility] [id number] [facility] 2024-08-04 00:00:00 2024-08-04 13:36:33 Telephone Jahaira Diamond [facility] 1.2.840.114 350.1.13.10 4.2.7.2.686 [id number] [facility] 2024-08-04 00:00:00 2024-08-04 11:34:40 Telephone Penelope Jessica [facility] 1.2.840.114 350.1.13.10 4.2.7.2.686 [id number] [facility] 2024-08-04 00:00:00 2024-08-04 11:33:14 Telephone Jahaira Diamond [facility] 1.2.840.114 350.1.13.10 4.2.7.2.686 [id number] [id number] [facility] 2024-08-04 08:18:39 2024-08-04 08:18:39 Outpatient [facility] [id number] Cuong Narayan Russel 2024-07-17 00:00:00 2024-07-23 18:41:05 Telephone Jahaira Diamond [facility] 1.2.840.114 350.1.13.10 4.2.7.2.686 [id number] [facility] 2024-07-23 00:00:00 2024-07-23 16:38:37 Refill Jahaira Diamond [facility] 1.2.840.114 350.1.13.10 4.2.7.2.686 [id number] 044 [id number] [facility] 2024-07-21 00:00:00 2024-07-21 08:32:04 Telephone Jahaira Diamond [facility] 1.2.840.114 350.1.13.10 4.2.7.2.686 [id number] 044 [id number] [facility] 2024-07-16 00:00:00 2024-07-16 11:18:48 Telephone Jahaira Diamond [facility] 1.2.840.114 350.1.13.10 4.2.7.2.686 [id number] 044 [id number] [facility] 2024-07-13 00:00:00 2024-07-16 06:54:08 Refill Jahaira Diamond [facility] 1.2.840.114 350.1.13.10 4.2.7.2.686 [id number] [id number] [facility] 2024-06-15 00:00:00 2024-06-16 14:36:00 Refill Gay Crystal [facility] 1.2.840.114 350.1.13.10 4.2.7.2.686 [id number] [id number] [facility] 2024-06-04 00:00:00 2024-06-04 13:10:37 Refill Gay Crystal [facility] 1.2.840.114 350.1.13.10 4.2.7.2.686 [id number] 044 [id number] [facility] 2024-05-26 00:00:00 2024-05-26 08:48:01 Telephone Jahaira Diamond [facility] 1.2.840.114 350.1.13.10 4.2.7.2.686 [id number] 044 [id number] [facility] 2024-04-25 09:30:00 2024-04-25 09:30:00 Outpatient R GAY CRYSTAL [facility] [id number] [facility] 2024-04-22 00:00:00 2024-04-22 08:17:51 Telephone Leigha, Jahaira [facility] 1.2.840.114 350.1.13.10 4.2.7.2.686 [id number] [id number] [facility] 2024-04-17 00:00:00 2024-04-17 10:47:14 Letter (Out) [facility] 1.2.840.114 350.1.13.10 4.2.7.2.686 [id number] [facility] 2024-04-15 00:00:00 2024-04-15 08:38:48 Case Management Eriac Stewart [facility] 1.2.840.114 350.1.13.10 4.2.7.2.686 [id number] [id number] [facility] 2024-04-14 16:15:00 2024-04-14 16:30:00 Mechanism Assembler Visit 2, Adc Lab LeighaJahaira [facility] 1.2.840.114 350.1.13.10 4.2.7.2.686 [id number] [facility] 2024-04-14 15:30:00 2024-04-14 16:05:34 Outpatient R JAHAIRA DIAMOND OGECHUKWU [facility] [id number] [facility] 2024-04-14 15:30:00 2024-04-14 16:05:34 Office Visit Jahaira Diamond [facility] 1.2.840.114 350.1.13.10 4.2.7.2.686 [id number] [id number] [facility] 2024-04-01 00:00:00 2024-04-01 13:11:18 Telephone Gay Crystal [facility] 1.2.840.114 350.1.13.10 4.2.7.2.686 [id number] 044 [id number] [facility] 2024-02-10 00:00:00 2024-02-12 12:55:41 Refill Gay Crystal [facility] 1.2.840.114 350.1.13.10 4.2.7.2.686 [id number] [id number] [facility] 2024-02-12 11:00:00 2024-02-12 11:00:00 Outpatient R GAY CRYSTAL [facility] [id number] [facility] 2023-12-30 00:00:00 2023-12-30 00:00:00 [facility] 1.2.840.114 350.1.13.10 4.2.7.2.686 [id number] [facility] 2023-11-20 00:00:00 2023-11-20 00:00:00 Patient Secure Msg Doctor Unassigned, Jobos [facility] 1.2.840.114 350.1.13.10 4.2.7.2.686 [id number] [id number] [facility] 2023-11-19 00:00:00 2023-11-19 00:00:00 Telephone Gay Crystal [facility] 1.2.840.114 350.1.13.10 4.2.7.2.686 [id number] [id number] [facility] 2023-11-14 00:00:00 2023-11-14 00:00:00 Orders Only Doctor Unassigned, Jobos [facility] 1.2.840.114 350.1.13.10 4.2.7.2.686 [id number] [facility] 2023-11-05 00:00:00 2023-11-05 00:00:00 [facility] 1.2840.114 350.1.13.10 4.2.7.2.686 [id number] 044 [id number] [facility] 2023-11-01 08:50:19 2023-11-01 23:59:00 Hospital Encounter Gay Crystal [facility] 1.20.114 350.1.13.10 4.2.7.2.686 [id number] [facility] 2023-11-01 08:49:56 2023-11-01 08:49:56 [id number] 2023-11-01 08:49:56 2023-11-01 08:49:56 Hospital Encounter Gay Crystal [facility] 1.2840.114 350.1.13.10 4.2.7.2.686 [id number] [facility] 2023-10-30 00:00:00 2023-10-30 00:00:00 Telephone Israel Ye [facility] 1.2840.114 350.1.13.10 4.2.7.2.686 [id number] [facility] 2023-10-26 08:00:00 2023-10-26 23:59:00 Outpatient R ISRAEL YE [facility] [id number] [facility] 2023-10-26 08:00:00 2023-10-26 23:59:00 Hospital Encounter Israel Ye [facility] 1.2840.114 350.1.13.10 4.2.7.2.686 [id number] [facility] 2023-10-26 10:50:00 2023-10-26 11:05:00 Mechanism Assembler Visit Giuliana, Adc Lab Main Israel Ye [facility] 1.2.840.114 350.1.13.10 4.2.7.2.686 [id number] [facility] 2023-10-26 10:00:00 2023-10-26 10:17:43 Office Visit Gay Crystal [facility] 1.2.840.114 350.1.13.10 4.2.7.2.686 [id number] [id number] [facility] 2023-10-26 00:00:00 2023-10-26 00:00:00 Patient Outreach Kemi Fontenot [facility] 1.2.840.114 350.1.13.10 4.2.7.2.686 [id number] 044 [id number] [facility] 2023-10-21 00:00:00 2023-10-21 00:00:00 Refill Gay Crystal [facility] 1.2.840.114 350.1.13.10 4.2.7.2.686 [id number] [facility] 2023-10-13 00:00:00 2023-10-13 00:00:00 Refill Gay Crystal [facility] 1.2.840.114 350.1.13.10 4.2.7.2.686 [id number] 044 [id number] [facility] 2023-10-12 00:00:00 2023-10-12 00:00:00 Telephone Gay Crystal [facility] 1.2.840.114 350.1.13.10 4.2.7.2.686 [id number] [id number] [facility] 2023-10-11 00:00:00 2023-10-11 00:00:00 Orders Only Doctor Unassigned, Jobos [facility] 1.2.840.114 350.1.13.10 4.2.7.2.686 [id number] [facility] 2023-08-21 14:30:00 2023-08-21 15:13:48 Outpatient ISRAEL CONWAY [facility] [id number] [facility] 2023-08-21 14:30:00 2023-08-21 15:13:48 Telemedici ne Visit Israel Ye [facility] 1.2.840.114 350.1.13.10 4.2.7.2.686 [id number] 059 [id number] [facility] 2023-08-20 00:00:00 2023-08-20 00:00:00 [facility] 1.2.840.114 350.1.13.10 4.2.7.2.686 [id number] 044 [id number] [facility] 2023-07-23 00:00:00 2023-07-23 00:00:00 [facility] 1.2.840.114 350.1.13.10 4.2.7.2.686 [id number] 044 [id number] [facility] 2023-07-18 00:00:00 2023-07-18 00:00:00 Telephone Israel Ye [facility] 1.2.840.114 350.1.13.10 4.2.7.2.686 [id number] 059 [id number] [facility] 2023-07-03 11:00:00 2023-07-03 11:00:00 Outpatient ISRAEL CONWAY [facility] [id number] [facility] 2023-06-25 00:00:00 2023-06-25 00:00:00 Outpatient Morro MARAHLINGGAY [facility] [id number] [facility] 2023-06-21 00:00:00 2023-06-21 00:00:[facility] 1.2840.114 350.1.13.10 4.2.7.2.686 [id number] 044 [id number] [facility] 2023-06-15 00:00:00 2023-06-15 00:00:00 Patient Secure Msg Doctor Unassigned, Jobos [facility] 1.2840.114 350.1.13.10 4.2.7.2.686 [id number] 019 [id number] [facility] 2023-06-13 00:00:00 2023-06-13 00:00:00 Telephone Israel YeBreezy [facility] 1.2840.114 350.1.13.10 4.2.7.2.686 [id number] 059 [id number] [facility] 2023-06-11 00:00:00 2023-06-11 00:00:00 Telephone Israel YeBreezy [facility] 1.2840.114 350.1.13.10 4.2.7.2.686 [id number] 059 [id number] [facility] 2023-06-05 00:00:00 2023-06-05 00:00:00 Orders Only Doctor Unassigned, Jobos [facility] 1.20.114 350.1.13.10 4.2.7.2.686 [id number] [id number] [facility] 2023-06-04 10:46:43 2023-06-04 23:59:00 Outpatient ISREAL CONWAY [facility] [id number] [facility] 2023-06-04 10:46:43 2023-06-04 23:59:00 Hospital Encounter Israel Ye [facility] 1.2.840.114 350.1.13.10 4.2.7.2.686 [id number] [facility] 2023-06-04 00:00:00 2023-06-04 00:00:00 Orders Only Doctor Unassigned, Jobos [facility] 1.2.840.114 350.1.13.10 4.2.7.2.686 [id number] 009 [id number] [facility] 2023-05-31 00:00:00 2023-05-31 00:00:00 Telephone Gay Crystal [facility] 1.2.840.114 350.1.13.10 4.2.7.2.686 [id number] 044 [id number] [facility] 2023-05-22 12:00:53 2023-05-22 23:59:00 Outpatient R ISRAEL YE [facility] [id number] [facility] 2023-05-22 12:00:53 2023-05-22 23:59:00 Hospital Encounter Israel Ye [facility] 1.2.840.114 350.1.13.10 4.2.7.2.686 [id number] [id number] [facility] 2023-05-22 11:00:00 2023-05-22 12:01:19 Office Visit Israel Ye [facility] 1.2.840.114 350.1.13.10 4.2.7.2.686 [id number] 059 [id number] [facility] 2023-04-30 00:00:00 2023-04-30 00:00:00 Patient Secure Msg Doctor Unassigned, Jobos [facility] 1.2.840.114 350.1.13.10 4.2.7.2.686 [id number] [facility] 2023-04-26 09:00:00 2023-04-26 13:39:06 Outpatient R GAY CRYSTAL [facility] [id number] [facility] 2023-04-26 09:00:00 2023-04-26 13:39:06 Office Visit Gay Crystal [facility] 1.2.840.114 350.1.13.10 4.2.7.2.686 [id number] 044 [id number] [facility] 2023-04-26 10:45:00 2023-04-26 11:00:00 Mechanism Assembler Visit 2, [facility] 1.2.840.114 350.1.13.10 4.2.7.2.686 [id number] [facility] 2023-04-26 10:00:00 2023-04-26 10:38:53 Office Visit Gay Crystal [facility] 1.2.840.114 350.1.13.10 4.2.7.2.686 [id number] 044 [id number] [facility] 2023-04-26 00:00:00 2023-04-26 00:00:00 Telephone Gay Crystal [facility] 1.2.840.114 350.1.13.10 4.2.7.2.686 [id number] 231 [id number] [facility] 2023-04-19 00:00:00 2023-04-19 00:00:00 Patient Secure Msg Doctor Unassigned, Jobos [facility] 1.2.840.114 350.1.13.10 4.2.7.2.686 [id number] 082 [id number] [facility] 2023-04-18 00:00:00 2023-04-18 00:00:00 Refill Gay Crystal [facility] 1.2.114 350.1.13.10 4.2.7.2.686 [id number] 044 [id number] [facility] 2023-03-28 00:00:00 2023-03-28 00:00:00 Letter (Out) Faculty, Pulmonary [facility] 1.114 350.1.13.10 4.2.7.2.686 [id number] 084 [id number] [facility] 2023-03-26 00:00:00 2023-03-26 00:00:00 Patient Outreach Kemi Fontenot [facility] 1.114 350.1.13.10 4.2.7.2.686 [id number] 044 [id number] [facility] 2023-03-26 00:00:00 2023-03-26 00:00:00 Patient Secure Msg Doctor Unassigned, Jobos [facility] 1.2114 350.1.13.10 4.2.7.2.686 [id number] 019 [id number] [facility] 2023-03-23 11:30:00 2023-03-23 12:18:33 Outpatient R GAY CRYSTAL [facility] [id number] [facility] 2023-03-23 11:30:00 2023-03-23 12:18:33 [facility] 1.84.114 350.1.13.10 4.2.7.2.686 [id number] 044 [id number] [facility] 2023-03-21 00:00:00 2023-03-21 00:00:00 Telephone Gay Crystal [facility] 1.2.840.114 350.1.13.10 4.2.7.2.686 [id number] 044 [id number] [facility] 2023-03-20 00:00:00 2023-03-20 00:00:00 Orders Only Doctor Unassigned, Jobos [facility] 1.2.840.114 350.1.13.10 4.2.7.2.686 [id number] 009 [id number] [facility] 2023-03-15 00:00:00 2023-03-15 00:00:00 Telephone Gay Crystal [facility] 1.2.840.114 350.1.13.10 4.2.7.2.686 [id number] 044 [id number] [facility] 2023-02-23 00:00:00 2023-02-23 00:00:00 [facility] 1.2.840.114 350.1.13.10 4.2.7.2.686 [id number] 044 [id number] [facility] 2023-01-16 00:00:00 2023-01-16 00:00:00 Telephone Gay Crystal [facility] 1.2.840.114 350.1.13.10 4.2.7.2.686 [id number] 044 [id number] [facility] 2022-11-22 00:00:00 2022-11-22 00:00:00 Refill Gay Crystal [facility] 1.2.840.114 350.1.13.10 4.2.7.2.686 [id number] 231 [id number] [facility] 2022-11-09 10:45:00 2022-11-09 10:45:00 Outpatient AMADO SANDS [facility] [id number] [facility] 2022-11-03 10:20:00 2022-11-03 10:20:00 Outpatient R MERCADO, MAUREEN [facility] [id number] [facility] 2022-10-30 00:00:00 2022-10-30 00:00:00 Telephone Gay Crystal [facility] 1.2.840.114 350.1.13.10 4.2.7.2.686 [id number] 044 [id number] [facility] 2022-10-27 00:00:00 2022-10-27 00:00:00 Telephone Gay Crystal [facility] 1.2840.114 350.1.13.10 4.2.7.2.686 [id number] 044 [id number] [facility] 2022-10-26 12:45:00 2022-10-26 13:00:00 Mechanism Assembler Visit Pob, Adc Lab Main Gay Crystal [facility] 1.2840.114 350.1.13.10 4.2.7.2.686 [id number] [facility] 2022-10-26 11:00:00 2022-10-26 12:21:12 Outpatient R GAY CRYSTAL [facility] [id number] [facility] 2022-10-26 11:00:00 2022-10-26 12:21:12 Office Visit Gay Crystal [facility] 1.2840.114 350.1.13.10 4.2.7.2.686 [id number] 044 [id number] [facility] 2022-10-26 00:00:00 2022-10-26 00:00:00 Orders Only Doctor Unassigned, Jobos [facility] 1.2.840.114 350.1.13.10 4.2.7.2.686 [id number] [id number] [facility] 2022-10-13 00:00:00 2022-10-13 00:00:00 Refill Maureen Mercado [facility] 1.2.840.114 350.1.13.10 4.2.7.2.686 [id number] 231 [id number] [facility] 2022-08-28 00:00:00 2022-08-28 00:00:00 Refill MercadoAllisonMaureen A [facility] 1.2.840.114 350.1.13.10 4.2.7.2.686 [id number] 231 [id number] [facility] 2022-07-01 00:00:00 2022-07-01 00:00:00 Refill MercadoAllisonMaureen A [facility] 1.2.840.114 350.1.13.10 4.2.7.2.686 [id number] 231 [id number] [facility] 2022-06-30 11:00:00 2022-06-30 12:00:57 Outpatient R JAHAIRA DIAMOND OGECHUKWU [facility] [id number] [facility] 2022-06-30 11:00:00 2022-06-30 12:00:57 Office Visit Jahaira Diamond [facility] 1.2.840.114 350.1.13.10 4.2.7.2.686 [id number] 044 [id number] [facility] 2022-06-13 00:00:00 2022-06-13 00:00:00 Telephone MercadoAllisonMaureen Festus [facility] 1.2.840.114 350.1.13.10 4.2.7.2.686 [id number] 231 [id number] [facility] 2022-05-01 10:20:00 2022-05-01 13:39:46 Outpatient R MAUREEN MERCADO [facility] [id number] [facility] 2022-05-01 10:20:00 2022-05-01 13:39:46 Telemedici ne Visit Maureen Mercado [facility] 1.2.840.114 350.1.13.10 4.2.7.2.686 [id number] 231 [id number] [facility] 2022-05-01 10:20:00 2022-05-01 10:20:00 [facility] [id number] 2022-04-14 00:00:00 2022-04-14 00:00:00 Orders Only Doctor Unassigned, Jobos [facility] 1.2.840.114 350.1.13.10 4.2.7.2.686 [id number] 009 [id number] [facility] 2022-03-23 00:00:00 2022-03-23 00:00:00 Orders Only Doctor Unassigned, Jobos [facility] 1.2.840.114 350.1.13.10 4.2.7.2.686 [id number] 009 [id number] [facility] 2022-02-27 00:00:00 2022-02-27 00:00:00 Telephone Maureen Mercado [facility] 1.2.840.114 350.1.13.10 4.2.7.2.686 [id number] [facility] 2022-02-24 00:00:00 2022-02-24 00:00:00 Orders Only Doctor Unassigned, Jobos [facility] 1.2.840.114 350.1.13.10 4.2.7.2.686 [id number] 009 [id number] [facility] 2022-02-16 12:00:00 2022-02-16 12:00:00 Outpatient R PUJA FOLEY SHIWAN [facility] [id number] [facility] 2022-02-02 09:30:00 2022-02-02 09:30:00 Outpatient R ALAINA PUJA MORALES [facility] [id number] [facility] 2022-02-01 13:30:00 2022-02-01 13:30:00 Outpatient R NERY SOLANOIAN [facility] [id number] [facility] 2022-01-23 00:00:00 2022-01-23 00:00:00 Telephone Maureen Mercado [facility] 1.2.840.114 350.1.13.10 4.2.7.2.686 [id number] 044 [id number] [facility] 2022-01-13 00:00:00 2022-01-13 00:00:00 Telephone Maureen Mercado [facility] 1.2.840.114 350.1.13.10 4.2.7.2.686 [id number] 231 [id number] [facility] 2022-01-12 00:00:00 2022-01-12 00:00:00 Telephone Maureen Mercado [facility] 1.2.840.114 350.1.13.10 4.2.7.2.686 [id number] 231 [id number] [facility] 2022-01-10 00:00:00 2022-01-10 00:00:00 Refill Maureen Mercado [facility] 1.2.840.114 350.1.13.10 4.2.7.2.686 [id number] 231 [id number] [facility] 2022-01-09 00:00:00 2022-01-09 00:00:00 Telephone Maureen Mercado [facility] 1.2.840.114 350.1.13.10 4.2.7.2.686 [id number] 231 [id number] [facility] 2022-01-03 10:00:00 2022-01-03 10:00:00 Outpatient JOYCE FERMIN [facility] [id number] [facility] 2022-01-02 00:00:00 2022-01-02 00:00:00 Telephone Maureen Mercado [facility] 1.2.840.114 350.1.13.10 4.2.7.2.686 [id number] 044 [id number] [facility] 2021-12-30 00:00:00 2021-12-30 00:00:00 Refill Maureen Mercado [facility] 1.2.840.114 350.1.13.10 4.2.7.2.686 [id number] 231 [id number] [facility] 2021-12-26 00:00:00 2021-12-26 00:00:00 Orders Only Doctor Unassigned, Jobos [facility] 1.2.840.114 350.1.13.10 4.2.7.2.686 [id number] [id number] [facility] 2021-12-16 11:30:00 2021-12-16 11:30:00 Outpatient PUJA CORDOBA SHIWAN [facility] [id number] [facility] 2021-12-01 15:00:00 2021-12-01 15:00:00 Outpatient MAUREEN GOMEZ [facility] [id number] [facility] 2021-12-01 11:20:00 2021-12-01 14:15:43 Outpatient MAUREEN GOMEZ [facility] [id number] [facility] 2021-12-01 11:20:00 2021-12-01 14:15:43 Telemedici ne Visit [facility]ureen [facility] 1.2.840.114 350.1.13.10 4.2.7.2.686 [id number] 231 [id number] [facility] 2021-11-15 00:00:00 2021-11-15 00:00:00 Telephone Maureen Mercado [facility] 1.2.840.114 350.1.13.10 4.2.7.2.686 [id number] 231 [id number] [facility] 2021-09-19 00:00:00 2021-09-19 00:00:00 Outpatient R [facility] [id number] [facility] 2021-09-19 00:00:00 2021-09-19 00:00:00 Orders Only Doctor Unassigned, Jobos [facility] 1.2.840.114 350.1.13.10 4.2.7.2.686 [id number] [id number] [facility] 2021-09-07 21:52:00 2021-09-15 13:08:00 Hospital Encounter Sarai Mac, Dutch Aguirre Srilakshmi Zindani, Shireen [facility] [id number] [facility] 2021-09-07 21:52:00 2021-09-15 13:08:00 Inpatient NEREIDA MCDERMOTT [facility] Cardiology [id number] [facility] 2021-09-12 00:00:00 2021-09-12 00:00:00 Orders Only [facility] [id number] [facility] 2021-08-23 18:18:00 2021-08-24 02:43:00 Emergency Fields, Uyen [facility] 1.2.840.114 350.1.13.10 4.2.7.2.686 [id number] [id number] [facility] 2021-08-24 00:00:00 2021-08-24 00:00:00 Letter (Out) Savanah Antonio [facility] 1.840.114 350.1.13.10 4.2.7.2.686 [id number] [id number] [facility] 2021-08-23 17:08:18 2021-08-23 17:53:20 Urgent Care Kylee Richter [facility] 1..840.114 350.1.13.10 4.2.7.2.686 [id number] [facility] 2021-08-23 17:00:00 2021-08-23 17:53:[address] [facility] [id number] [facility] 2021-08-23 17:00:00 2021-08-23 17:53:20 Outpatient R DIEGO KYLEE [facility] [id number] [facility] 2021-08-23 17:00:00 2021-08-23 17:00:00 Outpatient R KYLEE RICHTER [facility] [id number] [facility] 2021-08-23 00:00:00 2021-08-23 00:00:00 Telephone Maureen Mercado [facility] 1..840.114 350.1.13.10 4.2.7.2.686 [id number] [facility] 2021-08-02 10:20:00 2021-08-02 13:19:18 Outpatient R MAUREEN MERCADO [facility] [id number] [facility] 2021-08-02 08:30:30 2021-08-02 13:19:18 Telemedici ne Visit Maureen Mercado [facility] 1..840.114 350.1.13.10 4.2.7.2.686 [id number] 231 [id number] [facility] 2021-07-08 00:00:00 2021-07-08 00:00:00 [facility] 1.2.840.114 350.1.13.10 4.2.7.2.686 [id number] 231 [id number] [facility] 2021-06-30 11:26:48 2021-06-30 12:14:06 Office Visit Puja Foley [facility] nal Building 1.2.840.114 350.1.13.10 4.2.7.2.686 [id number] [facility] 2021-06-30 11:30:00 2021-06-30 11:30:00 Outpatient R PUJA FOLEY SHINDBud [facility] [id number] [facility] 2021-06-24 13:20:00 2021-06-24 13:20:00 Outpatient R PUJA FOLEY SHINDBud [facility] [id number] [facility] 2021-06-17 15:20:00 2021-06-17 15:20:00 Outpatient R JESSICA GRAHAM [facility] [id number] [facility] 2021-05-26 14:00:00 2021-05-26 14:00:00 Outpatient R MAUREEN MERCADO [facility] [id number] [facility] 2021-05-20 13:40:00 2021-05-20 13:40:00 Outpatient R MAUREEN MERCADO [facility] [id number] [facility] 2021-05-18 00:00:00 2021-05-18 00:00:00 Payton Sheppard [facility] Josue?Marybeth shetty [facility] 1.2.840.114 350.1.13.10 4.2.7.2.686 [id number] [facility] 2021-05-03 15:35:00 2021-05-06 18:48:00 Hospital Encounter Dale Gleasontiarra Sylvain Bisisteven Reji [facility] 1.2.840.114 350.1.13.10 4.2.7.2.686 [id number] [facility] 2021-05-06 10:40:00 2021-05-06 10:40:00 Outpatient MAUREEN GOMEZ [facility] [id number] [facility] 2021-05-03 00:00:00 2021-05-03 00:00:00 Telephone Maureen Mercado [facility] 1.2.840.114 350.1.13.10 4.2.7.2.686 [id number] 044 [id number] [facility] 2021-04-28 09:07:52 2021-04-28 14:36:33 Office Visit Maureen Mercado [facility] 1.2840.114 350.1.13.10 4.2.7.2.686 [id number] 231 [id number] 2021-04-28 09:07:52 2021-04-28 14:36:33 Office Visit Maureen Mercado [facility] 1.2840.114 350.1.13.10 4.2.7.2.686 [id number] [facility] 2021-04-28 09:20:00 2021-04-28 09:20:00 Outpatient R MAUREEN MERCADO [facility] [id number] [facility] 2021-04-28 00:00:00 2021-04-28 00:00:00 Orders Only Doctor Unassigned, Jobos [facility] 1.2840.114 350.1.13.10 4.2.7.2.686 [id number] [facility] 2021-04-17 00:00:00 2021-04-17 00:00:00 Maureen Heck [facility] Professio [facility] Building 1.2.840.114 350.1.13.10 4.2.7.2.686 [id number] 231 [id number] [facility] 2021-01-16 00:00:00 2021-01-16 00:00:00 Patient Secure Msg Doctor Unassigned, Jobos [facility] 1.284.114 350.1.13.10 4.2.7.2.686 [id number] 019 [id number] [facility] 2021-01-11 11:59:43 2021-01-11 23:59:00 Hospital Encounter Joyce Solano [facility] 1.2840.114 350.1.13.10 4.2.7.2.686 [id number] [facility] 2021-01-11 00:00:00 2021-01-11 00:00:00 Outpatient R JOYCE SOLANO [facility] [id number] [facility] 2020-12-28 15:25:38 2020-12-28 16:39:23 Office Visit Joyce Solano [facility] Building 1.2840.114 350.1.13.10 4.2.7.2.686 [id number] [facility] 2020-12-28 15:30:00 2020-12-28 15:30:00 Outpatient R JOYCE SOLANO [facility] [id number] [facility] 2020-12-23 13:22:15 2020-12-23 14:09:20 Office Visit Puja Foley [facility] Building 1.2840.114 350.1.13.10 4.2.7.2.686 [id number] [facility] 2020-12-23 13:30:00 2020-12-23 13:30:00 Outpatient R PUJA FOLEY SHIWAN [facility] [id number] [facility] 2020-12-21 13:21:45 2020-12-21 23:59:00 Hospital Encounter Estela, [facility] 1.2.840.114 350.1.13.10 4.2.7.2.686 [id number] [facility] 2020-12-21 13:00:00 2020-12-21 13:20:00 Hospital Encounter Estela, [facility] 1.2.840.114 350.1.13.10 4.2.7.2.686 [id number] [facility] 2020-12-21 00:00:00 2020-12-21 00:00:00 Outpatient R ESTELA [facility] [id number] [facility] 2020-12-21 00:00:00 2020-12-21 00:00:00 Telephone Estela [facility] 1.2.840.114 350.1.13.10 4.2.7.2.686 [id number] [id number] [facility] 2020-12-20 00:00:00 2020-12-20 00:00:00 [facility] 1.2.840.114 350.1.13.10 4.2.7.2.686 [id number] 231 [id number] [facility] 2020-12-09 14:00:00 2020-12-09 14:00:00 Outpatient PUJA CORDOBA SHIWAN [facility] [id number] [facility] 2020-12-09 00:00:00 2020-12-09 00:00:00 Refill Maureen Mercado [facility] 1.2.840.114 350.1.13.10 4.2.7.2.686 [id number] [facility] 2020-12-09 00:00:00 2020-12-09 00:00:00 Orders Only Doctor Unassigned, Job[facility] 1.2.840.114 350.1.13.10 4.2.7.2.686 [id number] [facility] 2020-11-30 11:10:00 2020-11-30 11:10:00 Outpatient YARELY HUGGINS [facility] [id number] [facility] 2020-11-24 00:00:00 2020-11-24 00:00:00 Orders Only Doctor Unassigned, Jobos [facility] 1.2.840.114 350.1.13.10 4.2.7.2.686 [id number] [facility] 2020-11-19 00:00:00 2020-11-19 00:00:00 Refill Maureen Mercado [facility] 1.2.840.114 350.1.13.10 4.2.7.2.686 [id number] [facility] 2020-11-18 14:52:26 2020-11-18 15:07:26 Mechanism Assembler Visit 2, [facility] Estela [facility] 1.2.840.114 350.1.13.10 4.2.7.2.686 [id number] [facility] 2020-11-18 13:56:16 2020-11-18 14:49:22 Office Visit Melanie Palmer [facility] 1..840.114 350.1.13.10 4.2.7.2.686 [id number] [facility] 2020-11-18 14:00:00 2020-11-18 14:00:00 Outpatient R JOSSELINE PALMERTANY [facility] [id number] [facility] 2020-11-18 10:40:00 2020-11-18 10:40:00 Outpatient R MAUREEN MERCADO [facility] [id number] [facility] 2020-11-15 13:00:00 2020-11-15 13:00:00 [facility] [id number] [facility] 2020-11-10 00:00:00 2020-11-10 00:00:00 Telephone Maureen Mercado [facility] 1.840.114 350.1.13.10 4.2.7.2.686 [id number] [facility] 2020-11-09 11:10:00 2020-11-09 11:10:00 Outpatient R YARELY MCKEON [facility] [id number] [facility] 2020-11-04 11:20:00 2020-11-04 11:20:00 Outpatient R PUJA FOLEY SHIWAN [facility] [id number] [facility] 2020-10-24 00:00:00 2020-10-24 00:00:00 Orders Only Doctor Unassigned, Jobos [facility] .840.114 350.1.13.10 4.2.7.2.686 [id number] [facility] 2020-10-13 13:49:15 2020-10-13 14:09:15 Urgent Care Provider, [facility] Maureen Mercado [facility] 1.840.114 350.1.13.10 4.2.7.2.686 [id number] [facility] 2020-10-13 14:00:00 2020-10-13 14:00:00 Outpatient R [facility] [id number] [facility] 2020-10-13 00:00:00 2020-10-13 00:00:00 Letter (Out) Doctor Unassigned, Jobos [facility] 1.2.840.114 350.1.13.10 4.2.7.2.686 [id number] [facility] 2020-10-13 00:00:00 2020-10-13 00:00:00 Letter (Out) Doctor Unassigned, Jobos [facility] 1.2.840.114 350.1.13.10 4.2.7.2.686 [id number] [facility] 2020-10-04 00:00:00 2020-10-04 00:00:00 Telephone Maureen Mercado [facility] 1.2.840.114 350.1.13.10 4.2.7.2.686 [id number] [facility] 2020-09-23 00:00:00 2020-09-23 00:00:00 Refill Maureen Mercado [facility] 1.2.840.114 350.1.13.10 4.2.7.2.686 [id number] [facility] [facility]:00 2020-09-23 00:00:00 Telephone Maureen Mercado [facility] Building 1.2.840.114 350.1.13.10 4.2.7.2.686 [id number] [facility] 2020-09-21 00:00:00 2020-09-21 00:00:00 Refill Maureen Mercado [facility] Building 1.2.840.114 350.1.13.10 4.2.7.2.686 [id number] [facility] 2020-09-16 00:00:00 2020-09-16 00:00:00 Outpatient R MAUREEN MERCADO [facility] [id number] [facility] 2020-09-11 00:00:00 2020-09-11 00:00:00 Telephone Maureen Mercado [facility] Building 1.284.114 350.1.13.10 4.2.7.2.686 [id number] 044 [id number] [facility] 2020-09-01 00:00:00 2020-09-01 00:00:00 Telephone Maureen Mercado [facility] 1.284.114 350.1.13.10 4.2.7.2.686 [id number] 044 [id number] [facility] 2020-08-25 00:00:00 2020-08-25 00:00:00 Orders Only Doctor Unassigned, Jobos [facility] 1.2840.114 350.1.13.10 4.2.7.2.686 [id number] [facility] 2020-08-19 12:17:47 2020-08-19 12:32:47 Mechanism Assembler Visit Pob, Adc Lab Main Maureen Mercado [facility] Building 1.284.114 350.1.13.10 4.2.7.2.686 [id number] [facility] 2020-08-19 10:26:09 2020-08-19 12:11:50 Office Visit Maureen Mercado [facility] 1.2.840.114 350.1.13.10 4.2.7.2.686 [id number] [facility] 2020-08-19 10:20:00 2020-08-19 10:20:00 Outpatient R MAUREEN MERCADO [facility] [id number] [facility] 2020 00:00:00 2020 00:00:00 Letter (Out) Froilan Barragan [facility] 1.2840.114 350.1.13.10 4.2.7.2.686 [id number] 099 [id number] [facility] 2020-07-28 00:00:00 2020-07-28 00:00:00 Telephone Maureen Mercado [facility] Building 1.2840.114 350.1.13.10 4.2.7.2.686 [id number] [facility] 2020-07-28 00:00:00 2020-07-28 00:00:00 Transition of Care [facility] 1.2840.114 350.1.13.10 4.2.7.2.686 [id number] [facility] 2020-07-17 14:03:00 2020-07-27 18:45:00 Hospital Encounter Christina Lowe Shawn P Shah, Shiwan Siddiqui, Sarah Batool [facility] 1.2840.114 350.1.13.10 4.2.7.2.686 [id number] 099 [id number] [facility] 2020-06-22 00:00:00 2020-06-22 00:00:00 [facility] 1.2840.114 350.1.13.10 4.2.7.2.686 [id number] [facility] 2020-06-10 00:00:00 2020-06-10 00:00:00 Telephone Maureen Mercado [facility] 1.2840.114 350.1.13.10 4.2.7.2.686 [id number] [id number] [facility] 2020-05-21 00:00:00 2020-05-21 00:00:00 Refill Maureen Mercado [facility] 1.2.114 350.1.13.10 4.2.7.2.686 [id number] [facility] 2020-05-11 00:00:00 2020-05-11 00:00:00 Refill Maureen Mercado [facility] 1.840.114 350.1.13.10 4.2.7.2.686 [id number] [facility] 2020-05-06 12:30:00 2020-05-06 12:30:00 Outpatient MACHO RUBY [facility] [id number] [facility] 2020-05-06 00:00:00 2020-05-06 00:00:00 Orders Only Doctor Unassigned, [facility] 1.840.114 350.1.13.10 4.2.7.2.686 [id number] [facility] 2020-05-03 11:20:15 2020-05-03 11:35:15 Mechanism Assembler Visit Only, Adc Test Macho Porter [facility] 1.2.114 350.1.13.10 4.2.7.2.686 [id number] [facility] 2020-05-03 11:15:00 2020-05-03 11:15:00 Outpatient MACHO RUBY [facility] [id number] [facility] 2020-04-29 15:25:10 2020-04-29 16:10:56 Office Visit Puja Foley [facility] Building 1.2.840.114 350.1.13.10 4.2.7.2.686 [id number] [facility] 2020-04-29 15:20:00 2020-04-29 15:20:00 Outpatient R PUJA FOLEY SHINDBud [facility] [id number] [facility] 2020-04-28 00:00:00 2020-04-28 00:00:00 Telephone Maureen Mercado [facility] Building 1.2.840.114 350.1.13.10 4.2.7.2.686 [id number] [facility] 2020-04-26 00:00:00 2020-04-26 00:00:00 Telephone Maureen Mercado [facility] Building 1.2.840.114 350.1.13.10 4.2.7.2.686 [id number] [facility] 2020-04-22 00:00:00 2020-04-22 00:00:00 Refill Maureen Mercado [facility] Office Building One 1.2.840.114 350.1.13.10 4.2.7.2.686 [id number] [id number] [facility] 2020-04-12 14:42:43 2020-04-12 15:55:04 Office Visit Maureen Mercado [facility] Building 1.2.840.114 350.1.13.10 4.2.7.2.686 [id number] [facility] 2020-04-12 14:40:00 2020-04-12 14:40:00 Outpatient R MAUREEN MERCADO [facility] [id number] [facility] 2020-04-12 00:00:00 2020-04-12 00:00:00 Orders Only Doctor Unassigned, Jobos [facility] 1.2.840.114 350.1.13.10 4.2.7.2.686 [id number] [facility] 2020-04-12 00:00:00 2020-04-12 00:00:00 Letter (Out) Doctor Unassigned, Jobos [facility] 1.2.840.114 350.1.13.10 4.2.7.2.686 [id number] [facility] 2020-04-09 00:00:00 2020-04-09 00:00:00 Telephone Maureen Mercado [facility] Building 1.2.840.114 350.1.13.10 4.2.7.2.686 [id number] [facility] 2020-04-06 00:00:00 2020-04-06 00:00:00 Refill Maureen Mercado [facility] Building 1.2.840.114 350.1.13.10 4.2.7.2.686 [id number] [facility] 2020-03-08 15:40:00 2020-03-08 15:40:00 Outpatient R MAUREEN MERCADO [facility] [id number] [facility] 2020-02-26 10:00:00 2020-02-26 10:00:00 Outpatient R MAUREEN MERCADO [facility] [id number] [facility] 2020-01-30 00:00:00 2020-01-30 00:00:00 Refill Maureen Mercado [facility] nal Building 1.2.840.114 350.1.13.10 4.2.7.2.686 [id number] [facility] 2020-01-12 09:40:00 2020-01-12 09:40:00 Outpatient R MAUREEN MERCADO [facility] [id number] [facility] 2020-01-09 00:00:00 2020-01-09 00:00:00 [facility]ill [facility] Building 1.2.840.114 350.1.13.10 4.2.7.2.686 [id number] [facility] 2019-12-23 10:20:00 2019-12-23 10:20:00 Outpatient R MAUREEN MERCADO [facility] [id number] [facility] 2019-12-23 00:00:00 2019-12-23 00:00:00 Telephone Maureen Mercado [facility] Building 1.2.840.114 350.1.13.10 4.2.7.2.686 [id number] [facility] 2019-12-01 13:34:40 2019-12-01 14:14:40 Office Visit Tio Jade [facility] Building 1.2.840.114 350.1.13.10 4.2.7.2.686 [id number] [facility] 2019-12-01 13:40:00 2019-12-01 13:40:00 Outpatient TIO RIVERO HOWARD [facility] [id number] [facility] 2019-11-17 00:00:00 2019-11-17 00:00:00 Refill Maureen Mercado [facility] Building 1.2.840.114 350.1.13.10 4.2.7.2.686 [id number] [facility] 2019-11-03 00:00:00 2019-11-03 00:00:00 Telephone Maureen Mercado [facility] 1.2.840.114 350.1.13.10 4.2.7.2.686 [id number] [facility] 2019-11-03 00:00:00 2019-11-03 00:00:00 Telephone Maureen Mercado [facility] 1.2.840.114 350.1.13.10 4.2.7.2.686 [id number] [facility] 2019-10-24 00:00:00 2019-10-24 00:00:00 Telephone Maureen Mercado [facility] 1.2.840.114 350.1.13.10 4.2.7.2.686 [id number] [facility] 2019-10-24 00:00:00 2019-10-24 00:00:00 Orders Only Doctor Unassigned, Jobos [facility] 1.2.840.114 350.1.13.10 4.2.7.2.686 [id number] [facility] 2019-10-14 14:35:20 2019-10-14 14:50:20 Mechanism Assembler Visit 2, Adc Lab Maureen Mercado [facility] 1.2.840.114 350.1.13.10 4.2.7.2.686 [id number] [facility] 2019-10-14 12:53:29 2019-10-14 14:25:39 Office Visit Maureen Mercado [facility] 1.2.840.114 350.1.13.10 4.2.7.2.686 [id number] [facility] 2019-10-14 00:00:00 2019-10-14 00:00:00 Orders Only Doctor Unassigned, Jobos [facility] 1.2.840.114 350.1.13.10 4.2.7.2.686 [id number] [facility] 2019-08-17 16:40:37 2019-08-21 18:12:00 Inpatient ANYI POWELL [facility] [id number] [facility] 2019-05-01 00:00:00 2019-05-01 00:00:00 Telephone Maureen Mercado Issa Rolonza 1.2.840.114 350.1.13.10 4.2.7.2.686 [id number] [facility] 2019-05-01 00:00:00 2019-05-01 00:00:00 Refill Maureen Mercado [facility] Building 1.2.840.114 350.1.13.10 4.2.7.2.686 [id number] [facility] 2019-04-11 00:00:00 2019-04-11 00:00:00 [facility] Building 1.2.840.114 350.1.13.10 4.2.7.2.686 [id number] [facility] 2019-04-10 00:00:00 2019-04-10 00:00:00 Telephone Maureen Mercado [facility] Building 1.2.840.114 350.1.13.10 4.2.7.2.686 [id number] [facility] 2019-04-10 00:00:00 2019-04-10 00:00:00 Refill Maureen Mercado [facility] nal Building 1.2.840.114 350.1.13.10 4.2.7.2.686 [id number] 044 [id number] [facility] Results Test Description Test Time Test Comments Results Resul t Comments Source CT LUNG CANCER SCREENING 2023-10-18 5 15:48:37 Exam Reviewed: CT LUNG CA SCREEN LOW DOSE Comparison: ?Previous CT scan of 12/21/2020. Clinical Indication: ?68 -year-old, ?female for lung cancer screening TECHNIQUE: A low dose helical CT CHEST was performed. The chest was studiedin helical mode with prospective reconstructions of 1 mm slices.Multiplanar MIPS were reconstructed from the axial images. NOTE: This studywas performed for the specific purposes of lung cancer screening and is notan alternative to diagnostic chest CT. RADIATION DOSE: CT dose length product DLP (Dose Length Product) = 0.90+44.33 mGycm FINDINGS: Lung Nodules: Ill-defined nodular density right upper lung (3:25), clusterof micronodular disease in the right lower lung (3:86-121). Lung Parenchyma: Generalized obstructive lung disease. Airways: Unremarkable Pleura: No pneumothorax or pleural effusion Mediastinum: No abnormality is noted. Lymph Nodes: No enlarged hilar or mediastinal lymph nodes Thyroid Gland: Poorly visualized Esophagus: Air in the esophagus could be due to aerophagia and/orgastroesophage al reflux. Heart and Pericardium: Normal heart size and normal caliber of the greatvessels. ?No pericardial effusion. Diffuse atherosclerosis throughout thethoracic aorta, proximal brachiocephalic vessels as well as all 3 coronaryarteries. Abdomen: Mild left adrenal gland hypertrophy, unchanged. Bones, and soft tissues: Multiple fractures of right ribs noted, unchangedsince 2020 except for new fractures in the posterior right eighth and ninthribs and fracture in the upper plate of T5 with loss of approximately 20%of its height. [facility] ([facility]80)(Total Cholesterol, Triglycerides, HDL)2023-10-26 19:00:29* Test Item Value Reference Range Interpretation Comme nts CHOL (test code = 7181246281) 173 mg/dL 120-200 HDL (test code = 0003475827) 107 mg/dL >=50 HDLC RATIO (test code = 9959725263) 1.6 <=4.5 TRIG (test code = 3896888956) 62 mg/dL 30-170 LDL CHOL (test code = 20145-1) 54 mg/dL <=160 VLDL (test code = 9800830589) 12 mg/dL 5-60 Lab Interpretation (test cod e = 09047-2) [facility]Total Cholesterol, Triglycerides, HDL)2023-10-26 19:00:29* Test Item Value Reference Range Interpretation Comme nts CHOL (test code = 1418081868) 173 mg/dL 120-200 HDL (test code = 4187329244) 107 mg/dL >=50 HDLC RATIO (test code = 1332540067) 1.6 <=4.5 TRIG (test code = 3734403468) 62 mg/dL 30-170 LDL CHOL (test code = 64315-9) 54 mg/dL <=160 VLDL (test code = 2847193664) 12 mg/dL 5-60 Lab Interpretation (test cod e = 91207-8) [facility]2023-10-26 18:56:49* Test Item Value Reference Range Interpretation Comme nts NA (test code = 7889535963) 135 mmol/L 135-145 K (test code = 1858812842) 4.0 mmol/L 3.5-5.0 CL (test code = 0644346219) 102 mmol/L 98-108 CO2 TOTAL (test code = 5643615478) 27 mmol/L 23-31 AGAP (test code = 9296935772) 6 2-16 BUN (test code = 9524351516) 16 mg/dL 7-23 GLUCOSE (test code = 7878408920) 107 mg/dL 70-110 CREATININE (test code = 4512062208) 0.79 mg/dL 0.50-1.04 TOTAL BILI (test code = 9768480426) 0.4 mg/dL 0.1-1.1 CALCIUM (test code = 4365155489) 9.4 mg/dL 8.6-10.6 T PROTEIN (test code = 4393999901) 7.2 g/dL 6.3-8.2 ALBUMIN (test code = 7333798767) 4.4 g/dL 3.5-5.0 ALK PHOS (test code = 8881204086) 68 U/L 34-122 ALTv (test code = 1742-6) 16 U/L 5-35 AST(SGOT) (test code = 9427787441) 24 U/L 13-40 eGFR (test code = 27440-0) 82.6 mL/min/1.73m2 CKD-EPI eGFR (20 21). Assuming creatinine has been stable day-to-day for at least three months, the eGFR indicates Category G2 (60 - 89 mL/min/1.73 m2) [facility] (86827)2023-10-26 18:56:49* Test Item Value Reference Range Interpretation Comme nts NA (test code = 9177368998) 135 mmol/L 135-145 K (test code = 4817149117) 4.0 mmol/L 3.5-5.0 CL (test code = 1297450172) 102 mmol/L 98-108 CO2 TOTAL (test code = 9012143524) 27 mmol/L 23-31 AGAP (test code = 4366010884) 6 2-16 BUN (test code = 0485350933) 16 mg/dL 7-23 GLUCOSE (test code = 1725501176) 107 mg/dL 70-110 CREATININE (test code = 1843056329) 0.79 mg/dL 0.50-1.04 TOTAL BILI (test code = 1033813954) 0.4 mg/dL 0.1-1.1 CALCIUM (test code = 6498276970) 9.4 mg/dL 8.6-10.6 T PROTEIN (test code = 5890284558) 7.2 g/dL 6.3-8.2 ALBUMIN (test code = 8261365046) 4.4 g/dL 3.5-5.0 ALK PHOS (test code = 4083846751) 68 U/L 34-122 ALTv (test code = 1742-6) 16 U/L 5-35 AST(SGOT) (test code = 5171827168) 24 U/L 13-40 eGFR (test code = 09971-9) 82.6 mL/min/1.73m2 CKD-EPI eGFR (20 21). Assuming creatinine has been stable day-to-day for at least three months, the eGFR indicates Category G2 (60 - 89 mL/min/1.73 m2) [facility]2023-[facility]26 18:41:44* Test Item Value Reference Range Interpretation Comme nts HGB A1C (test code = 4548-4) 5.2 % 4.0-5.7 JUANIS (test code = JUANIS) Reference RangesNormal: <5.7%Prediabetes: 5.7 - 6.4%Diabetes: > 6.5% Lab Interpretation (test code = 48125-2) Normal [facility]2023-10-26 18:41:44* Test Item Value Reference Range Interpretation Comme nts HGB A1C (test code = 4548-4) 5.2 % 4.0-5.7 JUANIS (test code = JUANIS) Reference RangesNormal: <5.7%Prediabetes: 5.7 - 6.4%Diabetes: > 6.5% Lab Interpretation (test code = 29445-9) [facility] [id number] 17:54:16* Test Item Value Reference Range Interpretation Comme nts WBC (test code = 6690-2) 7.90 4.30-11.10 RBC (test code = 789-8) 4.16 3.93-5.25 HGB (test code = 718-7) 12.1 g/dL 11.6-15.0 HCT (test code = 4544-3) 38.0 % 35.7-45.2 MCV (test code = 787-2) 91.3 fL 80.6-95.5 MCH (test code = 785-6) 29.1 pg 25.9-32.8 MCHC (test code = 786-4) 31.8 g/dL 31.6-35.1 RDW-SD (test code = 23534-2) 47.9 fL 39.0-49.9 RDW-CV (test code = 788-0) 14.2 % 12.0-15.5 PLT (test code = 777-3) 299 166-358 MPV (test code = 88900-3) 9.8 fL 9.5-12.9 NRBC/100 WBC (test code = 3341155616) 0.0 0.0-10.0 NRBC x10^3 (test code = 2816339802) See_Comment [Automated messa ge] The system which generated this result transmitted reference range: 10*3/?L. The reference range was not used to interpret this result as normal/abnormal. GRAN MAT (NEUT) % (test code = 770-8) 55.1 % IMM GRAN % (test code = 4302153110) 0.30 % LYMPH % (test code = 736-9) 25.7 % MONO % (test code = 5905-5) 7.2 % EOS % (test code = 713-8) 10.3 % BASO % (test code = 706-2) 1.4 % GRAN MAT x10^3(ANC) (test code = 5220964209) 4.36 10*3/uL 1.88-7.09 IMM GRAN x10^3 (test code = 4633124165) 0.00-0.06 LYMPH x10^3 (test code = 731-0) 2.03 10*3/uL 1.32-3.29 MONO x10^3 (test code = 742-7) 0.57 10*3/uL 0.33-0.92 EOS x10^3 (test code = 711-2) 0.81 10*3/uL 0.03-0.39 H BASO x10^3 (test code = 704-7) 0.11 10*3/uL 0.01-0.07 H Lab Interpretation (test code = 46822-7) Abnormal [facility] with [id number] 17:54:16* Test Item Value Reference Range Interpretation Comme nts WBC (test code = 6690-2) 7.90 4.30-11.10 RBC (test code = 789-8) 4.16 3.93-5.25 HGB (test code = 718-7) 12.1 g/dL 11.6-15.0 HCT (test code = 4544-3) 38.0 % 35.7-45.2 MCV (test code = 787-2) 91.3 fL 80.6-95.5 MCH (test code = 785-6) 29.1 pg 25.9-32.8 MCHC (test code = 786-4) 31.8 g/dL 31.6-35.1 RDW-SD (test code = 71220-4) 47.9 fL 39.0-49.9 RDW-CV (test code = 788-0) 14.2 % 12.0-15.5 PLT (test code = 777-3) 299 166-358 MPV (test code = 40885-6) 9.8 fL 9.5-12.9 NRBC/100 WBC (test code = 1340968734) 0.0 0.0-10.0 NRBC x10^3 (test code = 3333261277) See_Comment [Automated messa ge] The system which generated this result transmitted reference range: 10*3/?L. The reference range was not used to interpret this result as normal/abnormal. GRAN MAT (NEUT) % (test code = 770-8) 55.1 % IMM GRAN % (test code = 3112678642) 0.30 % LYMPH % (test code = 736-9) 25.7 % MONO % (test code = 5905-5) 7.2 % EOS % (test code = 713-8) 10.3 % BASO % (test code = 706-2) 1.4 % GRAN MAT x10^3(ANC) (test code = 0633920844) 4.36 10*3/uL 1.88-7.09 IMM GRAN x10^3 (test code = 5042459270) 0.00-0.06 LYMPH x10^3 (test code = 731-0) 2.03 10*3/uL 1.32-3.29 MONO x10^3 (test code = 742-7) 0.57 10*3/uL 0.33-0.92 EOS x10^3 (test code = 711-2) 0.81 10*3/uL 0.03-0.39 H BASO x10^3 (test code = 704-7) 0.11 10*3/uL 0.01-0.07 H Lab Interpretation (test code = 25534-4) [facility]normal [facility]2021-09-15 16:14:42* Test Item Value Reference Range Interpretation Comme nts SARS-COV2/RT-PCR (test code = 22528-9) Negative Negative JUANIS (test code = JUANIS) Negative result fo r this test determines that SARS-CoV-2 RNA was [...] Healthcare Providers:https://www.toney ray/schuyler/RT SARS-CoV-2 HCP Fact Sheet 51-565789.pdf Fact Sheet for Healthcare Patients:https://www.juan morehernandez/schuyler/RT SARS-CoV-2 Patient Fact Sheet EN 51-540945W1.pdf Lab Interpretation (test code = 59181-5) [facility])2021-09-15 16:14:42 * Test Item Value Reference Range Interpretation Comme nts SARS-COV2/RT-PCR (test code = 0755986) Negative Negative Negative result for this test determines that SARS-CoV-2 RNA was not present in the specimen above the Limit of Detection (LOD). However, Negative results do not preclude SARS-CoV-2 infection and should not be used as the sole basis for treatment or patient management decisions. Negative results must be combined with clinical observations, patient history, and epidemiological information. A falsenegative result may occur if a specimen is [...] 564(g) of the Act.Testing was performed using the Hernandez SARS-CoV-2 assay.Fact Sheet for Healthcare Providers:https://www.molecular.hernandez/schuyler/RT SARS-CoV-2 HCP Fact Sheet 51- 998715.pdfFact Sheet for Healthcare Patients:https://www.Tradoria.hernandez/schuyler/RT SARS-CoV-2 Patient Fact Sheet EN 51-141269Z5.pdfSARS-COV2/RT-PCR ([facility])2021-09-15 11:07:01* Test Item Value Reference Range Interpretation Comme nts SARS-COV2/RT-PCR (test code = 0379801) Negative Negative Negative result for this test determines that SARS-CoV-2 RNA was not present in the specimen above the Limit of Detection (LOD). However, Negative results do not preclude SARS-CoV-2 infection and should not be used as the sole basis for treatment or patient management decisions. Negative results must be combined with clinical observations, patient history, and epidemiological information. A falsenegative result may occur if a specimen is improperly collected, transported, or handled. A false negative result should be considered if patient's recent exposures or clinical presentation indicatethat COVID-19 (SARS-CoV-2) is likely and diagnostic tests for other causes of illness are negative.Re-testing should be considered in cases of suspected [...] revoked under Section 564(g) of the Act.Testing wasperformed using the Hernandez SARS-CoV-2 assay.Fact Sheet for Healthcare Providers:https://www.molecular.hernandez/schuyler/RT SARS-CoV-2 HCP Fact Sheet 51- 393662.pdfFact Sheet for Healthcare Patients:https://www.molecular.hernandez/schuyler/RT SARS-CoV-2 Patient Fact Sheet EN 51-896204J5.pdfCBC with platelet count + automated nwcr6439-12-61 06:22:16* Test Item Value Reference Range Interpretation Comme nts WBC (test code = 6690-2) 13.2 See_Comment H [Automated message] The system which generated this result transmitted reference range: 3.5 - 10.5 K/L. The reference range was not used to interpret this result as normal/abnormal. RBC (test code = 789-8) 3.59 See_Comment L [Automated message] The system which generated this result transmitted reference range: 3.93 - 5.22 M/L. The reference range was not used to interpret this result as normal/abnormal. MCHC (test code = 786-4) 33.0 See_Comment L [Automated message] The system which generated this result transmitted reference range: 32.2 - 35.5 GM/DL. The reference range was not used to interpret this result as normal/abnormal. Hematocrit (test code = 4544-3) 30.3 % 34.1-44.9 L MCV (test code = 787-2) 84.4 fL 79.4-94.8 MCH (test code = 785-6) 27.9 pg 25.6-32.2 RDW (test code = 788-0) 14.6 % 11.7-14.4 H Platelets (test code = 777-3) 369 See_Comment [Automated messa ge] The system which generated this result transmitted reference range: 150 - 450 K/CU MM. The reference range was not used to interpret this result as normal/abnormal. MPV (test code = 07824-1) 9.8 fL 9.4-12.3 nRBC (test code = 413) 0 See_Comment [ Automated message] The system which generated this result transmitted reference range: 0 - 0 /100 WBC. The reference range was not used to interpret this result as normal/abnormal. % Neutros (test code = 429) 59 % % Lymphs (test code = 430) 28 % % Monos (test code = 431) 8 % % Eos (test code = 432) 3 % % Baso (test code = 437) 0 % # Neutros (test code = 670) 7.85 See_Comment H [Automated messa ge] The system which generated this result transmitted reference range: 1.56 - 6.13 K/L. The reference range was not used to interpret this result as normal/abnormal. # Lymphs (test code = 414) 3.72 See_Comment [Automated messa ge] The system which generated this result transmitted reference range: 1.18 - 3.74 K/L. The reference range was not used to interpret this result as normal/abnormal. # Monos (test code = 415) 1.11 See_Comment H [Automated messa ge] The system which generated this result transmitted reference range: 0.24 - 0.36 K/L. The reference range was not used to interpret this result as normal/abnormal. # Eos (test code = 416) 0.33 See_Comment [Automated message] The system which generated this result transmitted reference range: 0.04 - 0.36 K/L. The reference range was not used to interpret this result as normal/abnormal. # Baso (test code = 417) 0.04 See_Comment [Automated message] The system which generated this result transmitted reference range: 0.01 - 0.08 K/L. The reference range was not used to interpret this result as normal/abnormal. Immature Granulocytes-Relative (test code = 2801) 1 % 0-1 Lab Interpretation (test code = 62254-4) Abnormal [facility] W/PLT COUNT & AUTO [id number] 06:22:16* Test Item Value Reference Range Interpretation Comme nts WHITE BLOOD CELL COUNT (BEAK ER) (test code = 775) 13.2 K/ L 3.5-10.5 H RED BLOOD CELL COUNT (BEAKER ) (test code = 761) 3.59 M/ L 3.93-5.22 L HEMOGLOBIN (BEAKER) (test co de = 410) 10.0 GM/DL 11.2-15.7 L HEMATOCRIT (BEAKER) (test co de = 411) 30.3 % 34.1-44.9 L MEAN CORPUSCULAR VOLUME (ROMERO KER) (test code = 753) 84.4 fL 79.4-94.8 MEAN CORPUSCULAR HEMOGLOBIN (BEAKER) (test code = 751) 27.9 pg 25.6-32.2 MEAN CORPUSCULAR HEMOGLOBIN CONC (BEAKER) (test code = 752) 33.0 GM/DL 32.2-35.5 RED CELL DISTRIBUTION WIDTH (BEAKER) (test code = 412) 14.6 % 11.7-14.4 H PLATELET COUNT (BEAKER) (kan t code = 756) 369 K/CU MM 150-450 MEAN PLATELET VOLUME (BEAKER ) (test code = 754) 9.8 fL 9.4-12.3 NUCLEATED RED BLOOD CELLS (BEAKER) (test code = 413) 0 /100 WBC 0-0 NEUTROPHILS RELATIVE PERCENT (BEAKER) (test code = 429) 59 % LYMPHOCYTES RELATIVE PERCENT (BEAKER) (test code = 430) 28 % MONOCYTES RELATIVE PERCENT (BEAKER) (test code = 431) 8 % EOSINOPHILS RELATIVE PERCENT (BEAKER) (test code = 432) 3 % BASOPHILS RELATIVE PERCENT (BEAKER) (test code = 437) 0 % NEUTROPHILS ABSOLUTE COUNT (BEAKER) (test code = 670) 7.85 K/ L 1.56-6.13 H LYMPHOCYTES ABSOLUTE COUNT (BEAKER) (test code = 414) 3.72 K/ L 1.18-3.74 MONOCYTES ABSOLUTE COUNT (BE KERI) (test code = 415) 1.11 K/ L 0.24-0.36 H EOSINOPHILS ABSOLUTE COUNT (BEAKER) (test code = 416) 0.33 K/ L 0.04-0.36 BASOPHILS ABSOLUTE COUNT (BE KERI) (test code = 417) 0.04 K/ L 0.01-0.08 IMMATURE GRANULOCYTES-RELATI VE PERCENT (BEAKER) (test code = 2801) 1 % 0-1 Vancomycin level, iquwsn3608-10-31 14:18:34* Test Item Value Reference Range Interpretation Comme nts Vancomycin Tr (test code = 4092-3) 8.4 ug/mL 10.0-20.0 L JUANIS (test code = JUANIS) Upkeep Mechanic ID - PIAY A L Lab Interpretation (test code = 69958-4) [facility], [id number] 14:18:34* Test Item Value Reference Range Interpretation Comme nts VANCOMYCIN TROUGH (BEAKER) ( test code = 522) 8.4 ug/mL 10.0-20.0 L Upkeep Mechanic ID - DEANGELO LCBC W/PLT COUNT & AUTO [id number] 14:05:32* Test Item Value Reference Range Interpretation Comme nts WHITE BLOOD CELL COUNT (BEAK ER) (test code = 775) 16.4 K/ L 3.5-10.5 H RED BLOOD CELL COUNT (BEAKER ) (test code = 761) 3.87 M/ L 3.93-5.22 L HEMOGLOBIN (BEAKER) (test co de = 410) 10.7 GM/DL 11.2-15.7 L HEMATOCRIT (BEAKER) (test co de = 411) 33.0 % 34.1-44.9 L MEAN CORPUSCULAR VOLUME (ROMERO KER) (test code = 753) 85.3 fL 79.4-94.8 MEAN CORPUSCULAR HEMOGLOBIN (BEAKER) (test code = 751) 27.6 pg 25.6-32.2 MEAN CORPUSCULAR HEMOGLOBIN CONC (BEAKER) (test code = 752) 32.4 GM/DL 32.2-35.5 RED CELL DISTRIBUTION WIDTH (BEAKER) (test code = 412) 14.5 % 11.7-14.4 H PLATELET COUNT (BEAKER) (kan t code = 756) 369 K/CU MM 150-450 MEAN PLATELET VOLUME (BEAKER ) (test code = 754) 9.6 fL 9.4-12.3 NUCLEATED RED BLOOD CELLS (BEAKER) (test code = 413) 0 /100 WBC 0-0 NEUTROPHILS RELATIVE PERCENT (BEAKER) (test code = 429) 91 % LYMPHOCYTES RELATIVE PERCENT (BEAKER) (test code = 430) 5 % MONOCYTES RELATIVE PERCENT (BEAKER) (test code = 431) 2 % EOSINOPHILS RELATIVE PERCENT (BEAKER) (test code = 432) 0 % BASOPHILS RELATIVE PERCENT (BEAKER) (test code = 437) 0 % NEUTROPHILS ABSOLUTE COUNT (BEAKER) (test code = 670) 14.94 K/ L 1.56-6.13 H LYMPHOCYTES ABSOLUTE COUNT (BEAKER) (test code = 414) 0.83 K/ L 1.18-3.74 L MONOCYTES ABSOLUTE COUNT (BE KERI) (test code = 415) 0.31 K/ L 0.24-0.36 EOSINOPHILS ABSOLUTE COUNT (BEAKER) (test code = 416) 0.06 K/ L 0.04-0.36 BASOPHILS ABSOLUTE COUNT (BE KERI) (test code = 417) 0.04 K/ L 0.01-0.08 IMMATURE GRANULOCYTES-RELATI VE PERCENT (BEAKER) (test code = 2801) 2 % 0-1 H Blood Culture - Routine (Right Venipuncture)2021-09-13 02:00:53* Test Item Value Reference Range Interpretation Comme nts Result (test code = 6463-4) No growth in 5 days [facility] [id number] 02:00:53* Test Item Value Reference Range Interpretation Comme nts CULTURE (BEAKER) (test code = 1095) No growth in 5 days BLOOD [id number] 02:00:52* Test Item Value Reference Range Interpretation Comme nts CULTURE (TARIKAKER) (test code = 1095) No growth in 5 days Transesophageal [id number] 18:48:24Ejection [facility]ractionSLEH ECHO [facility] [id number] 18:48:24Ejection FractionSLEH ECHO HEARTLAB [facility] axce6467-23-03 18:48:24Ejection FractionSLEH ECHO HEARTLAB [facility] HospitalVANCOMYCIN LEVEL, [id number] 13:59:47* Test Item Value Reference Range Interpretation Comme nts VANCOMYCIN TROUGH (TARIKAKER) ( test code = 522) 8.4 ug/mL 10.0-20.0 L Upkeep Mechanic ID - DBLactic acid, wanmpf9877-09-22 13:58:08* Test Item Value Reference Range Interpretation Comme nts Lactate, Venous (test code = 2872) 1.96 mmol/L 0.50-2.20 JUANIS (test code = JUANIS) Upkeep Mechanic ID - DB Lab Interpretation (test code = 77358-6) Normal [facility] CenterLACTIC ACID, [id number] 13:58:08* Test Item Value Reference Range Interpretation Comme nts LACTATE BLOOD VENOUS (2) (BE KERI) (test code = 2872) 1.96 mmol/L 0.50-2.20 Upkeep Mechanic ID - DBBasic Metabolic Wzvyg0017-87-25 13:56:06* Test Item Value Reference Range Interpretation Comme nts Sodium (test code = 2951-2) 134 meq/L 136-145 L Potassium (test code = 2823-3) 4.3 meq/L 3.5-5.1 Chloride (test code = 2075-0) 99 meq/L 98-107 CO2 (test code = 2027-9) 25 meq/L 22-29 BUN (test code = 3094-0) 18 mg/dL 7-21 Creatinine (test code = 2160-0) 0.76 mg/dL 0.57-1.25 Glucose (test code = 2345-7) 118 mg/dL 70-105 H Calcium (test code = 66599-7) 8.7 mg/dL 8.4-10.2 EGFR (test code = 62689-9) 77 mL/min/1.73 sq m ESTIMATED GFR I S NOT ACCURATE CREATININE CLEARANCE IN PREDICTING GLOMERULAR FILTRATION RATE. ESTIMATED GFR IS NOT APPLICABLE FOR DIALYSIS PATIENTS. JUANIS (test code = JUANIS) Upkeep Mechanic ID - DB Lab Interpretation (test code = 97554-7) Abnormal [facility] MET[facility]OLIC [id number] 13:56:06* Test Item Value Reference Range Interpretation Comme nts SODIUM (BEAKER) (test code = 381) 134 meq/L 136-145 L POTASSIUM (BEAKER) (test code = 379) 4.3 meq/L 3.5-5.1 CHLORIDE (BEAKER) (test code = 382) 99 meq/L 98-107 CO2 (BEAKER) (test code = 355) 25 meq/L 22-29 BLOOD UREA NITROGEN (BEAKER) (test code = 354) 18 mg/dL 7-21 CREATININE (BEAKER) (test code = 358) 0.76 mg/dL 0.57-1.25 GLUCOSE RANDOM (BEAKER) (test code = 652) 118 mg/dL 70-105 H CALCIUM (BEAKER) (test code = 697) 8.7 mg/dL 8.4-10.2 EGFR (BEAKER) (test code = 1092) 77 mL/min/1.73 sq m ESTIMATED GFR IS NOT ACCURATE CREATININE CLEARANCE IN PREDICTING GLOMERULAR FILTRATION RATE. ESTIMATED GFR IS NOT APPLICABLE FOR DIALYSIS PATIENTS. Upkeep Mechanic ID - DBCBC W/PLT COUNT & AUTO [id number] 13:21:48* Test Item Value Reference Range Interpretation Comme nts WHITE BLOOD CELL COUNT (BEAK ER) (test code = 775) 18.3 K/ L 3.5-10.5 H RED BLOOD CELL COUNT (BEAKER ) (test code = 761) 4.02 M/ L 3.93-5.22 HEMOGLOBIN (BEAKER) (test co de = 410) 11.4 GM/DL 11.2-15.7 HEMATOCRIT (BEAKER) (test co de = 411) 33.9 % 34.1-44.9 L MEAN CORPUSCULAR VOLUME (ROMERO KER) (test code = 753) 84.3 fL 79.4-94.8 MEAN CORPUSCULAR HEMOGLOBIN (BEAKER) (test code = 751) 28.4 pg 25.6-32.2 MEAN CORPUSCULAR HEMOGLOBIN CONC (BEAKER) (test code = 752) 33.6 GM/DL 32.2-35.5 RED CELL DISTRIBUTION WIDTH (BEAKER) (test code = 412) 14.5 % 11.7-14.4 H PLATELET COUNT (BEAKER) (kan t code = 756) 408 K/CU MM 150-450 MEAN PLATELET VOLUME (BEAKER ) (test code = 754) 9.7 fL 9.4-12.3 NUCLEATED RED BLOOD CELLS (BEAKER) (test code = 413) 0 /100 WBC 0-0 NEUTROPHILS RELATIVE PERCENT (BEAKER) (test code = 429) 90 % LYMPHOCYTES RELATIVE PERCENT (BEAKER) (test code = 430) 6 % MONOCYTES RELATIVE PERCENT (BEAKER) (test code = 431) 2 % EOSINOPHILS RELATIVE PERCENT (BEAKER) (test code = 432) 1 % BASOPHILS RELATIVE PERCENT (BEAKER) (test code = 437) 0 % NEUTROPHILS ABSOLUTE COUNT (BEAKER) (test code = 670) 16.50 K/ L 1.56-6.13 H LYMPHOCYTES ABSOLUTE COUNT (BEAKER) (test code = 414) 1.00 K/ L 1.18-3.74 L MONOCYTES ABSOLUTE COUNT (BE KERI) (test code = 415) 0.39 K/ L 0.24-0.36 H EOSINOPHILS ABSOLUTE COUNT (BEAKER) (test code = 416) 0.09 K/ L 0.04-0.36 BASOPHILS ABSOLUTE COUNT (BE KERI) (test code = 417) 0.03 K/ L 0.01-0.08 IMMATURE GRANULOCYTES-RELATI VE PERCENT (BEAKER) (test code = 2801) 1 % 0-1 BASIC METABOLIC [id number] 14:26:25* Test Item Value Reference Range Interpretation Comme nts SODIUM (BEAKER) (test code = 381) 134 meq/L 136-145 L POTASSIUM (BEAKER) (test code = 379) 4.7 meq/L 3.5-5.1 CHLORIDE (BEAKER) (test code = 382) 99 meq/L 98-107 CO2 (BEAKER) (test code = 355) 25 meq/L 22-29 BLOOD UREA NITROGEN (BEAKER) (test code = 354) 15 mg/dL 7-21 CREATININE (BEAKER) (test code = 358) 0.77 mg/dL 0.57-1.25 GLUCOSE RANDOM (BEAKER) (test code = 652) 187 mg/dL 70-105 H CALCIUM (BEAKER) (test code = 697) 8.9 mg/dL 8.4-10.2 EGFR (BEAKER) (test code = 1092) 75 mL/min/1.73 sq m ESTIMATED GFR IS NOT ACCURATE CREATININE CLEARANCE IN PREDICTING GLOMERULAR FILTRATION RATE. ESTIMATED GFR IS NOT APPLICABLE FOR DIALYSIS PATIENTS. Upkeep Mechanic ID - VMPgbtqllwv6631-18-73 14:11:30* Test Item Value Reference Range Interpretation Comme nts Magnesium (test code = 36091-6) 1.9 mg/dL 1.6-2.6 JUANIS (test code = JUANIS) Upkeep Mechanic ID - DB Lab Interpretation (test code = 98075-8) [facility] 14:11:30* Test Item Value Reference Range Interpretation Comme nts MAGNESIUM (BEAKER) (test cod e = 627) 1.9 mg/dL 1.6-2.6 Upkeep Mechanic ID - MARCOSVANCOMYCIN LEVEL, [id number] 12:54:39* Test Item Value Reference Range Interpretation Comme nts VANCOMYCIN TROUGH (BEAKER) ( test code = 522) 10.7 ug/mL 10.0-20.0 Upkeep Mechanic ID - IGNACIO TRgbajxk1864-05-07 08:00:34* Test Item Value Reference Range Interpretation Comme nts Albumin (test code = 03497-2) 2.2 g/dL 3.5-5.0 L JUANIS (test code = JUANIS) Upkeep Mechanic ID - DAVID Mortensen W Lab Interpretation (test code = 10864-0) Abnormal [facility] Hollywood[facility]IN2021[facility]-25 08:00:34* Test Item Value Reference Range Interpretation Comme nts ALBUMIN (BEAKER) (test code = 1145) 2.2 g/dL 3.5-5.0 L Upkeep Mechanic ID - IGNACIO PGyowmqu7437-60-88 06:36:13* Test Item Value Reference Range Interpretation Comme nts Calcium (test code = 96286-3) 6.4 mg/dL 8.4-10.2 L JUANIS (test code = JUANIS) Upkeep Mechanic ID - DAVID Festus W Lab Interpretation (test code = 36901-5) Abnormal [facility] Hollywood[facility]2021-[facility]-25 06:36:13* Test Item Value Reference Range Interpretation Comme nts CALCIUM (BEAKER) (test code = 697) 6.4 mg/dL 8.4-10.2 L Upkeep Mechanic ID - IGNACIO WBASIC METABOLIC [id number] 05:17:45* Test Item Value Reference Range Interpretation Comme nts SODIUM (BEAKER) (test code = 381) 137 meq/L 136-145 POTASSIUM (BEAKER) (test code = 379) 3.0 meq/L 3.5-5.1 L CHLORIDE (BEAKER) (test code = 382) 112 meq/L 98-107 H CO2 (BEAKER) (test code = 355) 20 meq/L 22-29 L BLOOD UREA NITROGEN (BEAKER) (test code = 354) 10 mg/dL 7-21 CREATININE (BEAKER) (test code = 358) 0.48 mg/dL 0.57-1.25 L GLUCOSE RANDOM (BEAKER) (test code = 652) 72 mg/dL 70-105 CALCIUM (BEAKER) (test code = 697) 5.9 mg/dL 8.4-10.2 LL EGFR (BEAKER) (test code = 1092) 130 mL/min/1.73 sq m ESTIMATED GFR IS NOT ACCURATE CREATININE CLEARANCE IN PREDICTING GLOMERULAR FILTRATION RATE. ESTIMATED GFR IS NOT APPLICABLE FOR DIALYSIS PATIENTS. Upkeep Mechanic ID Ashley PIERRE BHgirnqxmta8276-25-56 05:10:32* Test Item Value Reference Range Interpretation Comme nts Phosphorus (test code = 2777-1) 2.4 mg/dL 2.3-4.7 JUANIS (test code = JUANIS) Upkeep Mechanic ID - DAVID Festus W Lab Interpretation (test code = 31886-6) Normal [facility] Hollywood[facility]OSPHOR[facility]2021-12-25 05:10:32* Test Item Value Reference Range Interpretation Comme nts PHOSPHORUS (BEAKER) (test co de = 604) 2.4 mg/dL 2.3-4.7 Upkeep Mechanic ID Ashley PIERRE BBSYITLGHD6257-89-27 05:10:31* Test Item Value Reference Range Interpretation Comme nts MAGNESIUM (BEAKER) (test cod e = 627) 1.7 mg/dL 1.6-2.6 Upkeep Mechanic ID - IGNACIO VARNERalcium, Tobshbr8592-87-62 04:50:40* Test Item Value Reference Range Interpretation Comme nts Calcium, Ion (test code = 1993-) 1.15 mmol/L 1.12-1.27 pH, Blood (test code = 18367-1) 7.39 [facility] Hollywood[facility], [id number] 04:50:40* Test Item Value Reference Range Interpretation Comme nts CALCIUM IONIZED (BEAKER) (te st code = 698) 1.15 mmol/L 1.12-1.27 PH, BLOOD (BEAKER) (test cod e = 1810) 7.39 CBC W/PLT COUNT & AUTO [id number] 04:36:32* Test Item Value Reference Range Interpretation Comme nts WHITE BLOOD CELL COUNT (BEAK ER) (test code = 775) 10.1 K/ L 3.5-10.5 RED BLOOD CELL COUNT (BEAKER ) (test code = 761) 3.46 M/ L 3.93-5.22 L HEMOGLOBIN (BEAKER) (test co de = 410) 9.6 GM/DL 11.2-15.7 L HEMATOCRIT (BEAKER) (test co de = 411) 29.4 % 34.1-44.9 L MEAN CORPUSCULAR VOLUME (ROMERO KER) (test code = 753) 85.0 fL 79.4-94.8 MEAN CORPUSCULAR HEMOGLOBIN (BEAKER) (test code = 751) 27.7 pg 25.6-32.2 MEAN CORPUSCULAR HEMOGLOBIN CONC (BEAKER) (test code = 752) 32.7 GM/DL 32.2-35.5 RED CELL DISTRIBUTION WIDTH (BEAKER) (test code = 412) 14.0 % 11.7-14.4 PLATELET COUNT (BEAKER) (kan t code = 756) 393 K/CU MM 150-450 MEAN PLATELET VOLUME (BEAKER ) (test code = 754) 9.5 fL 9.4-12.3 NUCLEATED RED BLOOD CELLS (BEAKER) (test code = 413) 0 /100 WBC 0-0 NEUTROPHILS RELATIVE PERCENT (BEAKER) (test code = 429) 58 % LYMPHOCYTES RELATIVE PERCENT (BEAKER) (test code = 430) 30 % MONOCYTES RELATIVE PERCENT (BEAKER) (test code = 431) 8 % EOSINOPHILS RELATIVE PERCENT (BEAKER) (test code = 432) 3 % BASOPHILS RELATIVE PERCENT (BEAKER) (test code = 437) 0 % NEUTROPHILS ABSOLUTE COUNT (BEAKER) (test code = 670) 5.86 K/ L 1.56-6.13 LYMPHOCYTES ABSOLUTE COUNT (BEAKER) (test code = 414) 3.01 K/ L 1.18-3.74 MONOCYTES ABSOLUTE COUNT (BE KERI) (test code = 415) 0.80 K/ L 0.24-0.36 H EOSINOPHILS ABSOLUTE COUNT (BEAKER) (test code = 416) 0.32 K/ L 0.04-0.36 BASOPHILS ABSOLUTE COUNT (BE KERI) (test code = 417) 0.02 K/ L 0.01-0.08 IMMATURE GRANULOCYTES-RELATI VE PERCENT (BEAKER) (test code = 2801) 1 % 0-1 VANCOMYCIN LEVEL, [id number] 19:55:12* Test Item Value Reference Range Interpretation Comme nts VANCOMYCIN TROUGH (BEAKER) ( test code = 522) 20.3 ug/mL 10.0-20.0 H Upkeep Mechanic ID - DBBASIC METABOLIC [id number] 05:20:28* Test Item Value Reference Range Interpretation Comme nts SODIUM (BEAKER) (test code = 381) 138 meq/L 136-145 POTASSIUM (BEAKER) (test code = 379) 2.8 meq/L 3.5-5.1 L CHLORIDE (BEAKER) (test code = 382) 110 meq/L 98-107 H CO2 (BEAKER) (test code = 355) 22 meq/L 22-29 BLOOD UREA NITROGEN (BEAKER) (test code = 354) 12 mg/dL 7-21 CREATININE (BEAKER) (test code = 358) 0.52 mg/dL 0.57-1.25 L GLUCOSE RANDOM (BEAKER) (test code = 652) 76 mg/dL 70-105 CALCIUM (BEAKER) (test code = 697) 6.2 mg/dL 8.4-10.2 L EGFR (BEAKER) (test code = 1092) 119 mL/min/1.73 sq m ESTIMATED GFR IS NOT ACCURATE CREATININE CLEARANCE IN PREDICTING GLOMERULAR FILTRATION RATE. ESTIMATED GFR IS NOT APPLICABLE FOR DIALYSIS PATIENTS. Upkeep Mechanic ID - DEANGELO LENMEZUCZC6405-58-13 05:17:02* Test Item Value Reference Range Interpretation Comme nts MAGNESIUM (BEAKER) (test cod e = 627) 1.5 mg/dL 1.6-2.6 L Upkeep Mechanic ID - DEANGELO NAYZKFRLHTQ9728-75-76 05:17:02* Test Item Value Reference Range Interpretation Comme nts PHOSPHORUS (BEAKER) (test co de = 604) 2.8 mg/dL 2.3-4.7 Upkeep Mechanic ID - DEANGELO LCALCIUM, [id number] 04:11:31* Test Item Value Reference Range Interpretation Comme nts CALCIUM IONIZED (BEAKER) (te st code = 698) 1.10 mmol/L 1.12-1.27 L PH, BLOOD (BEAKER) (test cod e = 1810) 7.43 CBC W/PLT COUNT & AUTO [id number] 04:09:30* Test Item Value Reference Range Interpretation Comme nts WHITE BLOOD CELL COUNT (BEAK ER) (test code = 775) 11.4 K/ L 3.5-10.5 H RED BLOOD CELL COUNT (BEAKER ) (test code = 761) 3.79 M/ L 3.93-5.22 L HEMOGLOBIN (BEAKER) (test co de = 410) 10.6 GM/DL 11.2-15.7 L HEMATOCRIT (BEAKER) (test co de = 411) 32.5 % 34.1-44.9 L MEAN CORPUSCULAR VOLUME (ROMERO KER) (test code = 753) 85.8 fL 79.4-94.8 MEAN CORPUSCULAR HEMOGLOBIN (BEAKER) (test code = 751) 28.0 pg 25.6-32.2 MEAN CORPUSCULAR HEMOGLOBIN CONC (BEAKER) (test code = 752) 32.6 GM/DL 32.2-35.5 RED CELL DISTRIBUTION WIDTH (BEAKER) (test code = 412) 13.5 % 11.7-14.4 PLATELET COUNT (BEAKER) (kan t code = 756) 459 K/CU MM 150-450 H MEAN PLATELET VOLUME (BEAKER ) (test code = 754) 9.3 fL 9.4-12.3 L NUCLEATED RED BLOOD CELLS (BEAKER) (test code = 413) 0 /100 WBC 0-0 NEUTROPHILS RELATIVE PERCENT (BEAKER) (test code = 429) 71 % LYMPHOCYTES RELATIVE PERCENT (BEAKER) (test code = 430) 21 % MONOCYTES RELATIVE PERCENT (BEAKER) (test code = 431) 6 % EOSINOPHILS RELATIVE PERCENT (BEAKER) (test code = 432) 1 % BASOPHILS RELATIVE PERCENT (BEAKER) (test code = 437) 0 % NEUTROPHILS ABSOLUTE COUNT (BEAKER) (test code = 670) 8.07 K/ L 1.56-6.13 H LYMPHOCYTES ABSOLUTE COUNT (BEAKER) (test code = 414) 2.34 K/ L 1.18-3.74 MONOCYTES ABSOLUTE COUNT (BE KERI) (test code = 415) 0.68 K/ L 0.24-0.36 H EOSINOPHILS ABSOLUTE COUNT (BEAKER) (test code = 416) 0.14 K/ L 0.04-0.36 BASOPHILS ABSOLUTE COUNT (BE KERI) (test code = 417) 0.02 K/ L 0.01-0.08 IMMATURE GRANULOCYTES-RELATI VE PERCENT (BEAKER) (test code = 2801) 1 % 0-1 Comprehensive metabolic [id number] 01:11:40* Test Item Value Reference Range Interpretation Comme nts Protein, Total (test code = 2885-2) 6.1 See_Comment [Automated message] The system which generated this result transmitted reference range: 6.0 - 8.3 gm/dL. The reference range was not used to interpret this result as normal/abnormal. Albumin (test code = 55430-8) 3.4 g/dL 3.5-5.0 L Alkaline Phosphatase (test code = 6768-6) 57 U/L 40-150 Total Bilirubin (test code = 1974-2) 0.3 mg/dL 0.2-1.2 Sodium (test code = 2951-2) 136 meq/L 136-145 Potassium (test code = 2823-3) 3.7 meq/L 3.5-5.1 Chloride (test code = 2075-0) 100 meq/L 98-107 CO2 (test code = 8-9) 28 meq/L 22-29 BUN (test code = 3094-0) 15 mg/dL 7-21 Creatinine (test code = 2160-0) 0.69 mg/dL 0.57-1.25 Glucose (test code = 2345-7) 104 mg/dL 70-105 Calcium (test code = 75892-2) 8.7 mg/dL 8.4-10.2 AST (test code = 1920-8) 11 U/L 5-34 ALT (test code = 1742-6) 13 U/L 6-55 EGFR (test code = 40227-2) 86 mL/min/1.73 sq m ESTIMATED GFR I S NOT ACCURATE CREATININE CLEARANCE IN PREDICTING GLOMERULAR FILTRATION RATE. ESTIMATED GFR IS NOT APPLICABLE FOR DIALYSIS PATIENTS. JUANIS (test code = JUANIS) Upkeep Mechanic ID - BS Lab Interpretation (test code = 03808-3) [facility] Whiogzf9786-77-63 01:11:40* Test Item Value Reference Range Interpretation Comme nts CRP (test code = 676) 0.55 mg/dL 0.00-0.50 H JUANIS (test code = JUANIS) Upkeep Mechanic ID - BS Lab Interpretation (test code = 77443-6) Abnormal [facility] Hollywood[facility] METABOL[facility] [id number] 01:11:40* Test Item Value Reference Range Interpretation Comme nts TOTAL PROTEIN (BEAKER) (test code = 770) 6.1 gm/dL 6.0-8.3 ALBUMIN (BEAKER) (test code = 1145) 3.4 g/dL 3.5-5.0 L ALKALINE PHOSPHATASE (BEAKER) (test code = 346) 57 U/L 40-150 BILIRUBIN TOTAL (BEAKER) (test code = 377) 0.3 mg/dL 0.2-1.2 SODIUM (BEAKER) (test code = 381) 136 meq/L 136-145 POTASSIUM (BEAKER) (test code = 379) 3.7 meq/L 3.5-5.1 CHLORIDE (BEAKER) (test code = 382) 100 meq/L 98-107 CO2 (BEAKER) (test code = 355) 28 meq/L 22-29 BLOOD UREA NITROGEN (BEAKER) (test code = 354) 15 mg/dL 7-21 CREATININE (BEAKER) (test code = 358) 0.69 mg/dL 0.57-1.25 GLUCOSE RANDOM (BEAKER) (test code = 652) 104 mg/dL 70-105 CALCIUM (BEAKER) (test code = 697) 8.7 mg/dL 8.4-10.2 AST (SGOT) (BEAKER) (test code = 353) 11 U/L 5-34 ALT (SGPT) (BEAKER) (test code = 347) 13 U/L 6-55 EGFR (TARIKAKER) (test code = 1092) 86 mL/min/1.73 sq m ESTIMATED GFR IS NOT ACCURATE CREATININE CLEARANCE IN PREDICTING GLOMERULAR FILTRATION RATE. ESTIMATED GFR IS NOT APPLICABLE FOR DIALYSIS PATIENTS. Upkeep Mechanic ID - [id number] 01:11:40* Test Item Value Reference Range Interpretation Comme nts MAGNESIUM (WILFREDO) (test cod e = 627) 2.0 mg/dL 1.6-2.6 Upkeep Mechanic ID - BSC-REACTIVE [id number] 01:11:40* Test Item Value Reference Range Interpretation Comme nts C-REACTIVE PROTEIN (WILFREDO) (test code = 676) 0.55 mg/dL 0.00-0.50 H Upkeep Mechanic ID - BSLACTIC ACID, [id number] 01:03:18* Test Item Value Reference Range Interpretation Comme nts LACTATE BLOOD VENOUS (2) (BE KERI) (test code = 2872) 1.11 mmol/L 0.50-2.20 Upkeep Mechanic ID - BSBlood gas, [id number] 01:02:34* Test Item Value Reference Range Interpretation Comme nts pH, Van (test code = 2746-6) 7.47 7.32-7.42 H pCO2, Van (test code = 755) 41 See_Comment [Automated messa ge] The system which generated this result transmitted reference range: 41 - 51 mm Hg. The reference range was not used to interpret this result as normal/abnormal. pO2, Van (test code = 2705-2) 100 See_Comment H [Automated messa ge] The system which generated this result transmitted reference range: 25 - 40 mm Hg. The reference range was not used to interpret this result as normal/abnormal. O2 Sat, Van (test code = 2711-0) 98.0 % 40.0-70.0 H HCO3, Van (test code = 41726-7) 29 mmol/L 21-29 Base Excess, Van (test code = 1927-3) 4.7 mmol/L -2.0-3.0 H Patient Temperature (test code = 8310-5) 36.1 FIO2 (test code = 1819) 21 Lab Interpretation (test code = 65458-6) [facility] [id number] 01:02:34* Test Item Value Reference Range Interpretation Comme nts PH VENOUS (BEAKER) (test cod e = 701) 7.47 7.32-7.42 H PCO2 VENOUS (BEAKER) (test c ode = 755) 41 mm Hg 41-51 PO2 VENOUS (BEAKER) (test co de = 702) 100 mm Hg 25-40 H O2 SATURATION VENOUS (BEAKER ) (test code = 703) 98.0 % 40.0-70.0 H HCO3 VENOUS (BEAKER) (test c ode = 705) 29 mmol/L 21-29 BASE EXCESS VENOUS (BEAKER) (test code = 704) 4.7 mmol/L -2.0-3.0 H PATIENT TEMPERATURE (BEAKER) (test code = 1818) 36.1 FIO2 (BEAKER) (test code = 1819) 21.0 CBC W/PLT COUNT & AUTO [id number] 00:49:55* Test Item Value Reference Range Interpretation Comme nts WHITE BLOOD CELL COUNT (BEAK ER) (test code = 775) 13.0 K/ L 3.5-10.5 H RED BLOOD CELL COUNT (BEAKER ) (test code = 761) 3.98 M/ L 3.93-5.22 HEMOGLOBIN (BEAKER) (test co de = 410) 11.0 GM/DL 11.2-15.7 L HEMATOCRIT (BEAKER) (test co de = 411) 33.4 % 34.1-44.9 L MEAN CORPUSCULAR VOLUME (ROMERO KER) (test code = 753) 83.9 fL 79.4-94.8 MEAN CORPUSCULAR HEMOGLOBIN (BEAKER) (test code = 751) 27.6 pg 25.6-32.2 MEAN CORPUSCULAR HEMOGLOBIN CONC (BEAKER) (test code = 752) 32.9 GM/DL 32.2-35.5 RED CELL DISTRIBUTION WIDTH (BEAKER) (test code = 412) 13.3 % 11.7-14.4 PLATELET COUNT (BEAKER) (kan t code = 756) 572 K/CU MM 150-450 H MEAN PLATELET VOLUME (BEAKER ) (test code = 754) 9.3 fL 9.4-12.3 L NUCLEATED RED BLOOD CELLS (BEAKER) (test code = 413) 0 /100 WBC 0-0 NEUTROPHILS RELATIVE PERCENT (BEAKER) (test code = 429) 67 % LYMPHOCYTES RELATIVE PERCENT (BEAKER) (test code = 430) 23 % MONOCYTES RELATIVE PERCENT (BEAKER) (test code = 431) 8 % EOSINOPHILS RELATIVE PERCENT (BEAKER) (test code = 432) 1 % BASOPHILS RELATIVE PERCENT (BEAKER) (test code = 437) 0 % NEUTROPHILS ABSOLUTE COUNT (BEAKER) (test code = 670) 8.77 K/ L 1.56-6.13 H LYMPHOCYTES ABSOLUTE COUNT (BEAKER) (test code = 414) 2.97 K/ L 1.18-3.74 MONOCYTES ABSOLUTE COUNT (BE KERI) (test code = 415) 1.01 K/ L 0.24-0.36 H EOSINOPHILS ABSOLUTE COUNT (BEAKER) (test code = 416) 0.12 K/ L 0.04-0.36 BASOPHILS ABSOLUTE COUNT (BE KERI) (test code = 417) 0.02 K/ L 0.01-0.08 IMMATURE GRANULOCYTES-RELATI VE PERCENT (BEAKER) (test code = 2801) 1 % 0-1
--- NOTE | 2024-08-25 13:46 | RAD REPORT ---
EXAM: CT Head Brain Wo Cont HISTORY: STROKE ALERT COMPARISON: 01/20/2022 TECHNIQUE: Multiple contiguous axial images were obtained for a CT of the brain without contrast. Sag ittal and coronal reformats were performed. One or more of the following dose reduction techniques were used: Automated exposure control, adjus tment of the mA and kV according to patient size, and iterative reconstruction. Unless otherwise specified, incidental findings do not require dedicated imaging follow-up. FINDINGS: No evidence of hydrocephalus, intracranial hemorrhage, or extra-axial fluid collection. Stable left hemispheric encephalomalacia involving parts of the left MCA territory centered on the l eft frontal operculum, left thalamus, as well as more cranial aspects of the left frontal lobe extending into the left LORENZA territory. Ex vacuo dilation of the left lateral ventricle anterior body and frontal horn. Small focus of encephalomalacia along the right cerebellar folia is also stable, also suggestive of sequelae of remote ischemia. No other findings to suggest acute territorial ischemia. Otherwise stable periventricular and deep white matter hypodensities, nonspecific, but suggestive of chronic small vessel ischemic changes. The calvarium is intact. The visualized paranasal sinuses and mastoid air cells are essentially clear . IMPRESSION: No evidence of acute intracranial hemorrhage or infarct. Stable chronic findings including sequelae of extensive left hemispheric encephalomalacia involving b oth left MCA and LORENZA territories compatible with sequelae of remote ischemia. THIS REPORT CONTAINS FINDINGS THAT MAY BE CRITICAL TO PATIENT CARE. The findings were verbally commun icated via telephone to Je Capone MD on 08/25/2024 1:44 PM.
[2024-08-25 14:01] LABS: Absolute Basophils 0.1 K/uL (0-0.5); Absolute Eosinophils 0.7 K/uL (0-0.5); Absolute Lymphocytes (CBC) 1.5 K/uL (0.7-4.9); Absolute Monocytes 0.8 K/uL (0.1-1.3); Absolute Neutrophil 4.6 K/uL (1.8-8.0); Basophils % 1.4 % (0-1.3); Eosinophils % 8.7 % (0-4.4); Hematocrit 29.2 % (36.0-45.0); Hemoglobin 9.3 g/dL (12.0-15.0); Lymphocytes % 19.7 % (15.3-44.8); MCH 26.2 pg (27.0-35.0); MCV 81.7 fL (80-100); MPV 8.1 fL (7.6-11.3); Monocytes % 10.6 % (3.3-12.3); Neutrophils % 59.6 % (41.7-73.7); Platelets 480 thou/uL (152-406); RBC Red Blood Cell Count 3.57 M/uL (3.86-4.86); Red Cell Distribution Width 15.3 % (12.1-15.2)
[2024-08-25 14:08] LABS: PT Prothrombin Time 12.6 SECONDS (9.4-12.5); Protime INR 1.13
[2024-08-25 14:09] LABS: PTT, Activated Partial Thromb 31.2 SECONDS (24.3-36.9)
[2024-08-25 14:23] LABS: Anion Gap 8.7 mEq/L (5.0-15.0); Potassium 3.7 mEq/L (3.5-5.1); Troponin High Sensitivity 15.1 pg/mL (<58.9)
--- NOTE | 2024-08-25 14:38 | RAD REPORT ---
EXAMINATION: ONE VIEW CHEST XR CLINICAL INDICATION: Female, 69 years old.,stroke alert TECHNIQUE: Frontal chest projection is submitted. Examination is limited by patient positioning and t echnique. COMPARISON: 03/16/2024 FINDINGS: The lungs are mildly hyperinflated. Mild right basilar patchy airspace opacities appear new.. No pne umothorax or sizable effusion. The heart is normal in size. Mediastinal contours are unremarkable. IMPRESSION: Mild patchy right basilar airspace opacities, may relate to aspiration or early pneumonia.
[2024-08-25] MEDS ORDERED: Levofloxacin 750mg IV 750 MG/150 ML BAG IV ONE (14:54)
--- NOTE | 2024-08-25 14:56 | EDPHYS ---
Physician Documentation [facility] Name: Irina Pardo Age: 69 yrs Sex: Female : 1955 Arrival Date: 08/25/2024 Time: 13:16 Bed 3 Private MD: ED Physician Je Capone HPI: 08/25 13:39 This 69 yrs old Female presents to ER via EMS with complaints of INCREASED STROKE S/S. rn 13:39 The patient presents to the emergency department with a speech or higher order brain rn function problem. Onset: The symptoms/episode began/occurred 3 day(s) ago. Severity of symptoms: At their worst the symptoms were moderate in the emergency department the symptoms are unchanged. The patient has experienced similar episodes in the past. Family reports noticed change in speech about 3 to 4 days ago. Has recurrent strokes, reports at least once a year. Takes Plavix. No recent head injury or fall. Has residual right-sided deficits and spends most of her time in bed. No fever or chills.. Historical: - Allergies: 13:22 Iodine; bp 13:22 SHELLFISH; bp - PMHx: 13:22 COPD; CVA; High Cholesterol; bp - Immunization history:: Adult Immunizations up to date. - Infectious Disease History:: Denies. - Social history:: Smoking status: Patient denies any tobacco usage or history of. - Family history:: not pertinent. - Hospitalizations: : No recent hospitalization is reported. ROS: 13:39 Constitutional: Negative for fever, chills, and weight loss, Neck: Negative for injury, rn pain, and swelling, Cardiovascular: Negative for chest pain, palpitations, and edema, Respiratory: Negative for shortness of breath, cough, wheezing, and pleuritic chest pain, Abdomen/GI: Negative for abdominal pain, nausea, vomiting, diarrhea, and constipation, MS/Extremity: Negative for injury and deformity, Skin: Negative for injury, rash, and discoloration, Neuro: Positive for difficulty with speech, knows what she wants to say just has difficulty getting it out Exam: 13:39 Constitutional: This is a well developed, well nourished patient who is awake, alert, rn and in no acute distress. Cardiovascular: Regular rate and rhythm. No pulse deficits. Respiratory: No increased work of breathing, no retractions or nasal flaring. Abdomen/GI: Soft, non-tender Neuro: Awake and alert, GCS 15, oriented to person, place, time, and situation. Cranial nerves II-XII grossly intact. Slurred speech. Residual right-sided weakness with contractures of the right upper extremity. Does have some motion and strength in the right lower extremity but weaker than the left side. Sensation intact. 14:45 ECG was reviewed by the Attending Physician. rn Vital Signs: 13:21 BP 109 / 77; Pulse 88; Resp 15; Temp 98; Pulse Ox 98% ; bp 14:30 BP 129 / 86; Pulse 90; Resp 15; Pulse Ox 94% ; bp 15:30 BP 144 / 90; Pulse 90; Resp 15; Pulse Ox 97% ; bp 16:30 BP 103 / 70; Pulse 95; Resp 15; Pulse Ox 97% ; bp 17:30 BP 112 / 82; Pulse 95; Resp 16; Pulse Ox 97% ; bp NIH Stroke Scale Scores: 13:39 NIHSS Score: 1 rn MDM: 13:23 Medical Screening Exam initiated rn 14:50 Data reviewed: vital signs, nurses notes, lab test result(s), EKG, radiologic studies, rn CT scan, plain films, and as a result, I will admit patient. Consideration of Admission/Observation Patient was admitted/placed on observation. Escalation of care including admission/observation considered. Counseling: I had a detailed discussion with the patient and/or guardian regarding the historical points, exam findings, and any diagnostic results supporting the discharge/admit diagnosis, lab results, radiology results, the need for further work-up and treatment in the hospital. Special discussion:. ED course: CT without acute findings to indicate stroke. Chest x-ray images show pneumonia and family member reports increasing cough lately. Will admit to hospital for rule out stroke and IV antibiotics for pneumonia given mental status change. 08/25 13:24 Order name: Basic Metabolic Panel; Complete Time: 14:41 rn 08/25 13:24 Order name: CBC with Diff; Complete Time: 14:41 rn 08/25 13:24 Order name: High Sensitivity Troponin; Complete Time: 14:41 rn 08/25 13:24 Order name: Protime (+inr); Complete Time: 14:41 rn 08/25 13:24 Order name: Ptt, Activated; Complete Time: 14:41 rn 08/25 13:24 Order name: Urinalysis w/ reflexes rn 08/25 16:06 Order name: Anti-Thrombin III Activity EDMS 08/25 16:06 Order name: C-ANCA Anti-Proteinase 3 EDMS 08/25 16:06 Order name: Cardiolipin Antibodies G,M EDMS 08/25 16:06 Order name: Factor V Leiden Mutation EDMS 08/25 16:06 Order name: Homocysteine EDMS 08/25 16:06 Order name: Miscellaneous Test Lab EDMS 08/25 16:06 Order name: P-ANCA Anti-Myeloperoxidase Ab EDMS 08/25 16:06 Order name: Protein C Antigen EDMS 08/25 16:06 Order name: Protein Electo w/M Thom Serum EDMS 08/25 16:06 Order name: Protein S (Total EDMS 08/25 16:06 Order name: PROTHROMBIN GENE ANALYSIS (F2) EDMS 08/25 16:06 Order name: RPR EDMS 08/25 16:06 Order name: Vitamin B12 Level EDMS 08/25 16:06 Order name: Vitamin D, 25 (OH), TOTAL EDMS 08/25 16:06 Order name: Lipid Profile EDMS 08/25 16:06 Order name: Lipid Profile EDMS 08/25 16:06 Order name: C-Reactive Protein EDMS 08/25 16:06 Order name: CBC with Automated Diff EDMS 08/25 16:06 Order name: Comprehensive Metabolic Panel EDMS 08/25 16:06 Order name: Magnesium EDMS 08/25 16:06 Order name: Phosphorus EDMS 08/25 16:06 Order name: Thyroid Stimulating Hormone EDMS 08/25 16:06 Order name: Urinalysis w/ reflexes EDMS 08/25 13:24 Order name: Stroke CXR 1 View; Complete Time: 14:41 rn 08/25 13:39 Order name: Head Brain Wo Cont; Complete Time: 14:41 EDMS 08/25 16:06 Order name: Echo with Doppler EDMS 08/25 16:06 Order name: Stroke Protocol EDMS 08/25 16:06 Order name: Chest Pa And Lat (2 Views) EDMS 08/25 13:24 Order name: EKG; Complete Time: 13:25 rn 08/25 16:06 Order name: Patient Safety Orders EDMS 08/25 16:06 Order name: IRF Screen EDMS 08/25 16:06 Order name: Physical Therapy Consult [facility] 08/25 16:06 Order name: Speech Therapy Consult [facility] 08/25 16:06 Order name: EKG Electrocardiogram [facility] 08/25 13:24 Order name: Accucheck; Complete Time: 13:49 rn 08/25 13:24 Order name: Cardiac monitoring; Complete Time: 13:49 rn 08/25 13:24 Order name: EKG - Nurse/Tech; Complete Time: 13:59 rn 08/25 13:24 Order name: IV Saline Lock; Complete Time: 13:49 rn 08/25 13:24 Order name: Labs collected and sent; Complete Time: 13:49 rn 08/25 13:24 Order name: NPO; Complete Time: 13:49 rn 08/25 13:24 Order name: O2 Per Protocol; Complete Time: 13:49 rn 08/25 13:24 Order name: O2 Sat Monitoring; Complete Time: 13:49 rn 08/25 13:24 Order name: Stroke Swallow Screen; Complete Time: 13:50 rn EC:45 Rate is 87 beats/min. Rhythm is regular. QRS [place] is Normal. IN interval is normal. QRS rn interval is normal. QT interval is normal. No Q waves. T waves are Normal. No ST changes noted. Clinical impression: NSR w/ Non-specific ST/T Changes. Interpreted by me. Reviewed by me. Administered Medications: 14:58 Drug: levofloxacin IVPB 750 mg 150 ml IVPB once over 90 mins Volume: 150 ml; Route: bp IVPB; Infused Over: 90 mins; Site: left forearm; 17:46 Follow up: IV Status: Completed infusion bp Disposition Summary: 08/25/24 14:55 Hospitalization Ordered Notes: Hospitalization Status: Inpatient Admission rn Provider: Gustavo Capone rn Location: Telemetry/MedSurg (Inpatient) rn Condition: Stable rn Problem: new rn Symptoms: have improved rn Bed/Room Type: Standard rn Room Assignment: 201(08/25/24 17:25) bd Diagnosis - Slurred speech rn - Pneumonia, unspecified organism rn Forms: - Medication Reconciliation Form rn - SBAR form rn - Leadership Thank You Letter rn NIH Stroke Scale - NIH Stroke Score Date: 08/25/2024 Time: 13:39 Total Score = 1 10. Dysarthria (speech clarity - read or repeat words) - 1(Mild to Moderate) 11. Extinction and Inattention (visual/tactile/auditory/spatial/personal) - 0(No abnormality) 1a. Level of Consciousness (LOC) - 0(Alert) 1b. Level of Consciousness (LOC) (Month \T\ Age) - 0(Both) 1c. LOC Commands (Open \T\ Closes Eyes/Diaper Machine Tender) - 0(Both) 2. Best Gaze (Lateral Gaze Paresis) - 0(Normal) 3. Visual Field Loss - 0(No visual loss) 4. Facial Palsy - 0(Normal) 5a. Left Arm: Motor (10-second hold) - 0(No drift) 5b. Right Arm: Motor (10-second hold) - 0(No drift) 6a. Left Leg: Motor (5-second hold - always test supine) - 0(No drift) 6b. Right Leg: Motor (5-second hold - always test supine) - 0(No drift) 7. Limb Ataxia (finger/nose \T\ heel/fontana - test with eyes open) - 0(Absent) 8. Sensory Loss (pinprick arms/legs/face) - 0(Normal) 9. Best Language: Aphasia (description/naming/reading) - 0(No aphasia) Initials: rn Signatures: Dispatcher [employer] EDMS Zunilda Rojas Roman, MD MD rn Peltier, Wilver, ALFREDO RN bp Corrections: (The following items were deleted from the chart) 13:25 13:24 BASIC METABOLIC PANEL+C.LAB.BRZ ordered. EDMS EDMS 13:25 13:24 CBC+H.LAB.BRZ ordered. EDMS EDMS 13:25 13:24 Troponin High Sensitivity+C.LAB.BRZ ordered. EDMS EDMS 13:25 13:24 PROTIME (+INR)+COAG.LAB.BRZ ordered. EDMS EDMS 13:25 13:24 PTT, ACTIVATED+COAG.LAB.BRZ ordered. EDMS EDMS 13:25 13:24 Urinalysis+U.LAB.BRZ ordered. EDMS EDMS 13:39 13:25 CT-STROKE BRAIN W/O CONTRAST+CT.RAD.BRZ ordered. EDMS EDMS 17:25 14:55 rn klever
--- NOTE | 2024-08-25 14:56 | ER ---
Nurse's Notes [facility] Name: Irina Pardo Age: 69 yrs Sex: Female : 1955 Arrival Date: 08/25/2024 Time: 13:16 Bed 3 Private MD: Diagnosis: Slurred speech;Pneumonia, unspecified organism Presentation: 08/25 13:21 Chief complaint: EMS states: FAMILY STATES S/S FROM PREVIOUS STROKES WORSE x3 DAYS. bp Coronavirus screen: At this time, the client does not indicate any symptoms associated with coronavirus-19. Ebola Screen: No symptoms or risks identified at this time. Initial Sepsis Screen: Does the patient meet any 2 criteria? No. Patient's initial sepsis screen is negative. Does the patient have a suspected source of infection? No. Patient's initial sepsis screen is negative. Risk Assessment: Do you want to hurt yourself or someone else? Patient reports no desire to harm self or others. Onset of symptoms is unknown. Care prior to arrival: Glucose check: 114. 13:21 Method Of Arrival: EMS: [facility] bp 13:21 Acuity: FRANK 3 bp Triage Assessment: 13:22 General: Appears in no apparent distress. Behavior is AT BASELINE. Pain: Unable to use bp pain scale. Does not appear to understand pain scale. EENT: No deficits noted. Neuro: Level of Consciousness is obeys commands, lethargic, Oriented to person. Cardiovascular: Rhythm is sinus rhythm. Respiratory: No deficits noted. GI: No signs and/or symptoms were reported involving the gastrointestinal system. : No signs and/or symptoms were reported regarding the genitourinary system. Derm: No deficits noted. Musculoskeletal: No deficits noted. Historical: - Allergies: 13:22 Iodine; bp 13:22 SHELLFISH; bp - PMHx: 13:22 COPD; CVA; High Cholesterol; bp - Immunization history:: Adult Immunizations up to date. - Infectious Disease History:: Denies. - Social history:: Smoking status: Patient denies any tobacco usage or history of. - Family history:: not pertinent. - Hospitalizations: : No recent hospitalization is reported. Screenin:30 [facility] ED Fall Risk Assessment (Adult) History of falling in the last 3 months, bp including since admission No falls in past 3 months (0 pts) Confusion or Disorientation Yes (5 pts) Intoxicated or Sedated No (0 pts) Impaired Gait Yes (1 pt) Mobility Assist Device Used Yes (1 pt) Altered Elimination No (0 pt) Score/Fall Risk Level 3 or more points = High Risk Oriented to surroundings. Abuse screen: Denies threats or abuse. Denies injuries from another. Nutritional screening: No deficits noted. Tuberculosis screening: No symptoms or risk factors identified. Assessment: 13:30 General: Appears in no apparent distress. Behavior is calm, cooperative. bp 15:30 Reassessment: No changes from previously documented assessment. Patient is alert, bp oriented x 3, equal unlabored respirations, skin warm/dry/pink. ADMIT INITIATED. 17:30 Reassessment: Patient appears in no apparent distress at this time. Patient and/or bp family updated on plan of care and expected duration. Pain level reassessed. Patient is alert, oriented x 3, equal unlabored respirations, skin warm/dry/pink. 18:00 Reassessment: REPORT FAXED RM 205. bp 18:30 Reassessment: PER CHARGE, ADMIT ON HOLD FOR SHIFT CHANGE. bp Vital Signs: 13:21 BP 109 / 77; Pulse 88; Resp 15; Temp 98; Pulse Ox 98% ; bp 14:30 BP 129 / 86; Pulse 90; Resp 15; Pulse Ox 94% ; bp 15:30 BP 144 / 90; Pulse 90; Resp 15; Pulse Ox 97% ; bp 16:30 BP 103 / 70; Pulse 95; Resp 15; Pulse Ox 97% ; bp 17:30 BP 112 / 82; Pulse 95; Resp 16; Pulse Ox 97% ; bp NIH Stroke Scale Scores: 13:39 NIHSS Score: 1 rn cvor Course: 13:21 Patient arrived in ED. bp 13:22 Triage completed. bp 13:22 Arm band placed on. bp 13:23 Je Capone MD is Attending Physician. rn 13:24 Wilver Sahu, ALFREDO is Primary Nurse. bp 13:30 Patient has correct armband on for positive identification. bp 13:44 Head Brain Wo Cont In Process Unspecified. EDMS 13:50 Initial lab(s) drawn, by me, sent to lab. Inserted saline lock: 22 gauge in left wrist, bp using aseptic technique. Blood collected. Flushed with 10 mL NS. 13:59 Stroke CXR 1 View In Process Unspecified. EDMS 14:35 Urinalysis w/ reflexes Sent. ll1 14:54 Gustavo Capone MD is Hospitalizing Provider. rn 17:42 No provider procedures requiring assistance completed. Patient admitted, IV remains in bp place. 17:46 Provided Education on: N/A. bp Administered Medications: 14:58 Drug: levofloxacin IVPB 750 mg 150 ml IVPB once over 90 mins Volume: 150 ml; Route: bp IVPB; Infused Over: 90 mins; Site: left forearm; 17:46 Follow up: IV Status: Completed infusion bp Medication: 17:46 VIS not applicable for this client. bp Outcome: 14:55 Decision to Hospitalize by Provider. rn 17:42 Condition: stable bp 17:42 Instructed on the need for admit, 18:03 Admitted to Med/surg accompanied by rhianna, room 201, with chart, bp 19:13 Patient left the ED. [id number] NIH Stroke Scale - NIH Stroke Score Date: 08/25/2024 Time: 13:39 Total Score = 1 10. Dysarthria (speech clarity - read or repeat words) - 1(Mild to Moderate) 11. Extinction and Inattention (visual/tactile/auditory/spatial/personal) - 0(No abnormality) 1a. Level of Consciousness (LOC) - 0(Alert) 1b. Level of Consciousness (LOC) (Month \T\ Age) - 0(Both) 1c. LOC Commands (Open \T\ Closes Eyes/[employer]) - 0(Both) 2. Best Gaze (Lateral Gaze Paresis) - 0(Normal) 3. Visual Field Loss - 0(No visual loss) 4. Facial Palsy - 0(Normal) 5a. Left Arm: Motor (10-second hold) - 0(No drift) 5b. Right Arm: Motor (10-second hold) - 0(No drift) 6a. Left Leg: Motor (5-second hold - always test supine) - 0(No drift) 6b. Right Leg: Motor (5-second hold - always test supine) - 0(No drift) 7. Limb Ataxia (finger/nose \T\ heel/fontana - test with eyes open) - 0(Absent) 8. Sensory Loss (pinprick arms/legs/face) - 0(Normal) 9. Best Language: Aphasia (description/naming/reading) - 0(No aphasia) Initials: rn Signatures: Dispatcher [employer] Je You MD MD rn Peltier, Brian, RN RN bp Marimar Hughes, RN RN ll1 Cristian Yanez RN RN bm8
[2024-08-25 14:59] LABS: Specific Gravity 1.025 (1.005-1.030); Sqamous Epithelial <5 /HPF (None Seen); Urine Bacteria <20 /HPF (<20); Urine Bilirubin NEGATIVE (Negative); Urine Blood Negative (Negative); Urine Clarity Turbid (Clear); Urine Color Yellow (Yellow); Urine Crystals Unidentified Few /HPF (None Seen); Urine Culture Reflex Order NOT NEEDED; Urine Glucose NEGATIVE (Negative); Urine Ketones NEGATIVE (Negative); Urine Microscopic Reflex YN ORDER UMIC; Urine Mucus Slight /HPF (None Seen); Urine Nitrite NEGATIVE (Negative); Urine Protein TRACE (Negative); Urine RBC None Seen /HPF (None Seen); Urine Urobilinogen Normal (Normal)
[2024-08-25] MEDS ORDERED: ALBUTEROL 2.5 MG/3 ML NEB SOL NEB PRN (15:56)
[2024-08-25] MEDS ORDERED: ACETAMINOPHEN 650MG/RECT SUPP PR PRN (15:56)
[2024-08-25] MEDS: NA CHLORIDE 0.9% 1,000 ML IV SCH (16:00)
[2024-08-25] MEDS: CEFTRIAXONE 1,000 MG in NA CHLORIDE 0.9% 50 ML IVPB ONE (16:04)
--- NOTE | 2024-08-25 16:10 | P.HP ---
Certification for Inpatient Patient admitted to: Observation With expected LOS: <2 Midnights Practitioner: I am a practitioner with admitting privileges, knowledge of patient current condition, hospital course, and medical plan of care. Services: Services provided to patient in accordance with Admission requirements found in Title 42 Section 412.3 of the Code of Federal Regulations Patient History Date of Service: 08/25/24 Reason for admission: Dysarthria, UTI History of Present Illness: 69-year-old woman with a past medical history significant for COPD on home oxygen (3-5L daily nasal cannula), history of CVA (last 01/2023) with right sided chronic residual deficits, HDL, depression, and hypothyroidism presented to the emergency room complaining of slurred speech x 3 days. The patient is alert, and oriented x 2not time. The patient's family member is present at bedside. The patient complains of slurred speech that began 3 days ago. She has not attempted anything to alleviate her slurred speech, and states nothing worsens. The patient is a former smoker who quit 3 years ago. She states she has not seen a neurologist in over a year. Also, the patient complains of urinary symptoms that also began 3 days ago. She states she has been having urinary urgency, and urinary frequency but denies dysuria. The patient denies fever, headache, seizures, and atrial fibrillation. Allergies No Known Allergies Allergy (Unverified 09/01/21 14:40) Home medications list reviewed: Yes Home Medications: Acetaminophen [Tylenol*] 650 mg PO Q4HP PRN tab 03/16/24 Albuterol Neb [Proventil 0.083% Neb Soln] 2.5 mg NEB [id number] PRN amp 03/16/24 Azithromycin Tab [Zithromax*] 250 mg PO DAILY 4 Days #4 tab 03/16/24 Furosemide [Lasix] 20 mg PO DAILY #30 tab 03/16/24 Guaif/Dm [Robitussin Dm*] 10 ml PO Q6H PRN 03/16/24 Ipratropium Neb [Atrovent*] 0.5 mg NEB [id number] PRN #0 amp 03/16/24 Potassium Chloride [K-Dur] 10 meq PO DAILY 30 Days #30 tab 03/16/24 predniSONE [Deltasone] 20 mg PO BID #20 tab 03/16/24 - Past Medical/Surgical History Diabetic: No -: COPD on home oxygen -: stroke hx-chronic right-sided deficits -: HLD -: Hypothyroidism -: Depression Past Surgical History: Unable to obtain -: Unable to obtain - Family History Family History: Reviewed- Non-Contributory - Social History Smoking Status: Former smoker (Quit 3 years ago) Alcohol use: No CD- Drugs: No Caffeine use: Yes Review of Systems Respiratory: Cough (dry), Shortness of Breath (On home oxygen, chronic), SOB with Excertion Genitourinary: Frequency, Urgency Neurological: Change in Speech, Other (Slurred speech) Physical Examination - Vital Signs Temperature: 98 F Blood Pressure: 129/86 Pulse: 87 Respirations: 18 Pulse Ox (%): 96 (Room air) - Physical Exam General: Alert, In no apparent distress, Oriented x2 HEENT: Atraumatic, Normocephalic Neck: JVD not distended Respiratory: Normal air movement Cardiovascular: No edema, Regular rate/rhythm, No gallops, No rubs, No murmurs Gastrointestinal: Normal bowel sounds, Non-distended, No tenderness Musculoskeletal: No swelling, No erythema, No tenderness, No warmth Neurological: Normal strength at 5/5 x4 extr (Except right upper extremity 3/5- chronic, right lower extremity 4/5-chronic), Sensation intact, Other (Chronic facial droop-left side droop, no arm drift, no headache, no seizure activity) Urinary: Other (Adult diaper) - Studies Laboratory Data (last 24 hrs) 08/25/24 08/25/24 08/25/24 13:50 13:50 13:50 WBC 7.70 Hgb 9.3 L Hct 29.2 L Plt Count 480 H PT 12.6 H INR 1.13 APTT 31.2 Sodium 138 Potassium 3.7 BUN 18 Creatinine 0.80 Glucose 102 Assessment and Plan - Problems (Diagnosis) (1) COPD (chronic obstructive pulmonary disease) Current Visit: Yes Status: Acute (2) Depression Current Visit: Yes Status: Acute (3) Hypothyroidism Current Visit: Yes Status: Acute (4) Dyslipidemia (high LDL; low HDL) Current Visit: Yes Status: Acute (5) Dysarthria Current Visit: Yes Status: Acute (6) History of CVA (cerebrovascular accident) Current Visit: No Status: Acute (7) On home oxygen therapy Current Visit: No Status: Acute (8) UTI (urinary tract infection) Current Visit: Yes Status: Acute - Plan Dysarthria: Admit to observation Neurology consulted MRI brain without contrast ordered ASA ordered Statin at bedtime ordered PT/OT/speech consulted Bedside swallow exam ordered Plavix ordered IVF ordered Head CT revealed no acute abnormalities. Stable, chronic findings of left encephalomalacia of left MCA and LORENZA History of CVA: Chronic right-sided deficits-right upper extremity and right lower extremity UTI: Ceftriaxone ordered Urine cultures ordered and pending Hypothyroidism: Resumed levothyroxine Depression: Resume duloxetine HDL: Statin ordered at bedtime COPD: On home oxygen 3-5 L, continue with oxygen therapy CXR revealed right opacities consistent with pneumonia - Advance Directives Does patient have a Living Will: No Does patient have a Durable POA for Healthcare: No
[2024-08-25] MEDS ORDERED: CEFTRIAXONE 1000 MG/VIAL ONE (16:56)
[2024-08-25] MEDS ORDERED: NA CHLORIDE 0.9% 1,000 ML ONE (16:57)
[2024-08-25] MEDS: IPRATROPIUM BROM 0.5MG/2.5ML NEB SCH (19:00)
[2024-08-25] MEDS: DULOXETINE 30 MG CAP PO SCH (20:08)
[2024-08-25] MEDS: ATORVASTATIN 40 MG TAB PO SCH (20:08)
[2024-08-25 23:02] VITALS: BMI 23.5
[2024-08-26 00:46] LABS: RPR (Rapid Plasma Reagin) NON-REACT (NON-REACT)
[2024-08-26 04:57] LABS: Absolute Basophils 0.1 K/uL (0-0.5); Absolute Eosinophils 0.9 K/uL (0-0.5); Absolute Lymphocytes (CBC) 1.5 K/uL (0.7-4.9); Absolute Monocytes 0.8 K/uL (0.1-1.3); Absolute Neutrophil 3.7 K/uL (1.8-8.0); Basophils % 1.2 % (0-1.3); Eosinophils % 12.4 % (0-4.4); Hematocrit 26.8 % (36.0-45.0); Hemoglobin 8.3 g/dL (12.0-15.0); Lymphocytes % 21.6 % (15.3-44.8); MCH 25.5 pg (27.0-35.0); MCHC 31.2 g/dL (32.0-36.0); MCV 81.8 fL (80-100); MPV 8.2 fL (7.6-11.3); Neutrophils % 52.8 % (41.7-73.7); Platelets 438 thou/uL (152-406); RBC Red Blood Cell Count 3.27 M/uL (3.86-4.86); Red Cell Distribution Width 15.4 % (12.1-15.2)
[2024-08-26 05:28] LABS: Albumin 2.6 g/dL (3.4-5.0); Albumin/Globulin Ratio 0.8 (1.1-1.8); Anion Gap 7.2 mEq/L (5.0-15.0); Bilirubin Total 0.3 mg/dL (0.2-1.0); C-Reactive Protein 20.6 mg/L (<3.00); Globulin 3.3 g/dL (2.3-3.5); Magnesium 1.7 mg/dL (1.6-2.4); Phosphorus 3.4 mg/dL (2.5-4.9); Potassium 4.2 mEq/L (3.5-5.1); Protein, Total 5.9 g/dL (6.4-8.2)
[2024-08-26] MEDS: LEVOTHYROXINE SOD 0.025 MG TAB PO SCH (06:18)
[2024-08-26] MEDS: CLOPIDOGREL 75 MG TABLET PO SCH (09:00)
[2024-08-26] MEDS: ASPIRIN EC 81 MG TAB PO SCH (09:00)
[2024-08-26] MEDS: CEFTRIAXONE 1,000 MG in NA CHLORIDE 0.9% 50 ML IVPB SCH (09:22)
[2024-08-26] MEDS: AZITHROMYCIN IV 500 MG in NA CHLORIDE 0.9% 250 ML IVPB SCH (10:11)
[2024-08-26] MEDS: MAGNESIUM SULFATE 1 gm IVPB 1 GM/100 ML BAG IV ONE (12:32)
[2024-08-26] MEDS: LORazepam 2 MG/ML VIAL IV ONE (14:07)
--- NOTE | 2024-08-26 15:11 | ECHO ---
HEIGHT: 5 ft 4 in WEIGHT: 137 lb 0 oz DATE OF STUDY: 08/26/[address]: Lizette Jarquin PA-C 2-DIMENSIONAL: YES M.MODE: YES DOPPLER: YES COLOR FLOW: YES TDS: YES PORTABLE: YES DEFINITY: NO BUBBLE STUDY: NO DIAGNOSIS: STROKE CARDIAC HISTORY: CATHERIZATION: SURGERY: PROSTHETIC VALVE: PACEMAKER: MEASUREMENTS (cm) DIASTOLIC (NORMALS) SYSTOLIC (NORMALS) IVSd 0.9 (0.6-1.2) LA Diam (1.9-4.0) LVEF 55-60% LVIDd 4.2 (3.5-5.7) LVIDs 2.9 (2.0-3.5) %FS 30% LVPWd 1.0 (0.6-1.2) Ao Diam 3.2 (2.0-3.7) 2 DIMENSIONAL ASSESSMENT: RIGHT ATRIUM: NORMAL LEFT ATRIUM: NORMAL RIGHT VENTRICLE: NORMAL LEFT VENTRICLE: NORMAL TRICUSPID VALVE: NORMAL MITRAL VALVE: NORMAL PULMONIC VALVE: NORMAL AORTIC VALVE: MILD AORTIC REGURGITATION PERICARDIAL EFFUSION: NONE AORTIC ROOT: NORMAL LEFT VENTRICULAR WALL MOTION: NORMAL. DOPPLER/COLOR FLOW: NORMAL. COMMENTS: 1. NORMAL LEFT VENTRICULAR SYSTOLIC FUNCTION. LEFT VENTRICULAR EJECTION FRACTION 55-60%. NORMAL WALL MOTION. 2. NORMAL DIASTOLIC FUNCTION. 3. MILD AORTIC REGURGITATION. TECHNOLOGIST: SHANNA SILVA
--- NOTE | 2024-08-26 16:50 | RAD REPORT ---
EXAMINATION: MRI BRAIN WITHOUT AND WITH CONTRAST CLINICAL INDICATION: eval for cva TECHNIQUE: Multiplanar multisequence MR images of the brain were obtained without and with intravenou s contrast. Unless otherwise specified, incidental findings do not require dedicated imaging follow-up. COMPARISON: No prior exam. FINDINGS: INTRACRANIAL: Diffusion-weighted images show no acute or early subacute infarction. There is moderate brain atrophy with moderateT2/FLAIR hyperintensities in the periventricular and deep white matter regions, likely representing chronic microvascular ischemic changes. There is no mass effect or midli ne shift. No abnormal extraaxial fluid collection. Gliosis in the distribution of the left MCA likely indicating a remote infarct. VASCULATURE: Normal signal voids in the larger intracranial arteries and dural venous sinuses. SINUSES: The paranasal sinuses and mastoid air cells are predominantly clear. BONE: The marrow signal pattern is within normal limits. CONTRAST: No pathologic postcontrast enhancement to indicate tumor or infection. OTHER FINDINGS: IMPRESSION: No acute CVA or other acute intracranial process. Evidence of remote left MCA infarct.
--- NOTE | 2024-08-26 16:52 | RAD REPORT ---
EXAM: MRA head without contrast HISTORY: Stroke CVA rule out COMPARISON: None TECHNIQUE: MRA of the head was performed without contrast using 3-D [id number] imaging. 3-D rotational refor mats were performed. FINDINGS: Right intracranial internal carotid artery: Patent without narrowing or occlusion Right anterior cerebral artery: Patent without narrowing or occlusion Right middle cerebral artery: Patent without narrowing or occlusion Left intracranial internal carotid artery: Patent without narrowing or occlusion Left anterior cerebral artery: Patent without narrowing or occlusion Left middle cerebral artery: Diminished flow likely related to previous infarcted territory. No aneurysmal dilatation is seen in the anterior circulation. Right vertebral artery: Patent without narrowing or occlusion Left vertebral artery: Patent without narrowing or occlusion Basilar artery: Patent without narrowing or occlusion The posterior cerebral arteries and cerebellar arteries are patent without narrowing or occlusion. No aneurysmal dilatation is seen in the posterior circulation. IMPRESSION: No significant MRA abnormality of the head Diminished flow left M1 segment likely chronic and related to prior infarct.
--- NOTE | 2024-08-26 16:54 | RAD REPORT ---
EXAM: MRA neck without and with contrast HISTORY: Stroke CVA rule out COMPARISON: None TECHNIQUE: An MRA of the neck was performed without contrast using 2-D [id number] imaging. Postcontrast imag es were also performed using 2-D [id number] imaging. 3-D rotational reformats were performed. FINDINGS: Aortic arch: Normal origin of the carotid arteries from the arch. No significant atherosclerotic dise ase of the subclavian arteries. Right common carotid artery: No significant atherosclerotic disease or narrowing Left common carotid artery: No significant atherosclerotic disease or narrowing Right internal carotid artery: Mild atherosclerotic narrowing proximal ICA. per NASCET criteria Left internal carotid artery: Mild atherosclerotic narrowing proximal ICA. Moderate post bulbar narro wing seen. per NASCET criteria Right cervical vertebral artery: No significant atherosclerotic disease or narrowing Left cervical vertebral artery: No significant atherosclerotic disease or narrowing IMPRESSION: Mild areas of atherosclerotic narrowing seen both proximal ICAs. Moderate focal narrowing post bulbar left ICA.
--- NOTE | 2024-08-26 17:01 | P.PN ---
Date of Service: 08/26/24 Subjective Awake, continues with Aphasia MRI/MRA planned for today Recommend IRF at DC, Will discuss further ROS 10 point ROS as noted above, otherwise negative Physical Exam General: Alert and Oriented x2, NAD HEENT: Atraumatic, Normocephalic Neck: JVD not distended Respiratory: Normal air movement, nonlabored breathing, on 3 LNC Cardiovascular: No edema, RRR, No gallops, No rubs, No murmurs Gastrointestinal: Normal bowel sounds, ND/NT, soft on palpation Musculoskeletal: No swelling, No erythema, No tenderness, No warmth Neurological: Normal strength at 5/5 x4 extr (Except right upper extremity 3/5- chronic, right lower extremity 4/5-chronic), Sensation intact, Other (Chronic facial droop-left side droop, no arm drift, no headache, no seizure activity) Urinary: Other (Adult diaper) Vitals Reviewed Problem list CVA r/o, history of CVA Dysarthria COPD Right side Pneumonia UTI Hypothyroidism Depression HDL COPD Assessment and Plan CVA r/o, history of CVA Dysarthria - Consulted Neurology - recommendations appreciated - NIHSS = 1 - Allow permissive hypertension - q4hr neurochecks - MR brain + MRA head/neck results pending - TTE reports " mild aortic regurgitation, EF 55-60%, - PT/OT consulted- inpatient rehab recommended - [employer] TECHNICIAN consulted- pending recommendation - Hgb A1c pending, lipid panel (glyceride 53, cholesterol 127, LDL 46, HDL 70, cholesterol 1.81), TSH 2.0 - aspirin, folic acid, atorvastatin daily COPD Right side Pneumonia -On home oxygen 3-5 L, continue with oxygen therapy -CXR revealed right opacities consistent with pneumonia -Azithromycin 500 mg daily UTI -UA positive for Leukocyte esterase -Ceftriaxone ordered -Urine cultures not sent Hypothyroidism -Continue levothyroxine Depression -Continue duloxetine HDL -continue home medicaitons DVT ppx Lovenox Full code LOS
[2024-08-26] MEDS: ENOXAPARIN 40 MG/0.4 ML SQ SCH (17:16)
[2024-08-27] MEDS: ACETAMINOPHEN 325 MG TABLET PO PRN (05:29)
[2024-08-27 06:06] LABS: Absolute Basophils 0.1 K/uL (0-0.5); Absolute Eosinophils 0.9 K/uL (0-0.5); Absolute Lymphocytes (CBC) 1.8 K/uL (0.7-4.9); Absolute Monocytes 0.6 K/uL (0.1-1.3); Absolute Neutrophil 3.1 K/uL (1.8-8.0); Basophils % 1.6 % (0-1.3); Eosinophils % 13.7 % (0-4.4); Hematocrit 27.3 % (36.0-45.0); Hemoglobin 8.5 g/dL (12.0-15.0); MCH 25.5 pg (27.0-35.0); MCHC 31.2 g/dL (32.0-36.0); MCV 81.6 fL (80-100); MPV 8.1 fL (7.6-11.3); Monocytes % 9.6 % (3.3-12.3); Neutrophils % 48.1 % (41.7-73.7); Platelets 415 thou/uL (152-406); RBC Red Blood Cell Count 3.34 M/uL (3.86-4.86); Red Cell Distribution Width 15.3 % (12.1-15.2)
[2024-08-27 06:24] LABS: Anion Gap 8.1 mEq/L (5.0-15.0); Magnesium 1.8 mg/dL (1.6-2.4); Phosphorus 3.3 mg/dL (2.5-4.9); Potassium 4.1 mEq/L (3.5-5.1)
[2024-08-27] MEDS: MAGNESIUM SULFATE 1 gm IVPB 1 GM/100 ML BAG IV ONE (06:46)
[2024-08-27] MEDS: FOLIC ACID 1 MG TABLET PO SCH (08:07)
[2024-08-27] MEDS: HYDRALAZINE HCL 20 MG/ML VIAL IV ONE (08:40)
[2024-08-27 11:45] VITALS: O2SAT 97
--- NOTE | 2024-08-27 12:17 | P.PN ---
Date of Service: 08/27/24 Subjective Feeling well, imaging negative for new stroke Educated on recommendations for inpatient rehab consult for HH with SN and PT ROS 10 point ROS as noted above, otherwise negative Physical Exam General: AAO x3, NAD HEENT: Atraumatic, Normocephalic Neck: JVD not distended Respiratory: Normal air movement, Clear BBS, on 3 LNC Cardiovascular: No edema, RRR, No gallops, No rubs, No murmurs Gastrointestinal: Normal bowel sounds, ND/NT, soft on palpation Musculoskeletal: No swelling, No erythema, No tenderness, No warmth Neurological: Normal strength at 5/5 x4 extr (Except right upper extremity 3/5- chronic, right lower extremity 4/5-chronic), Sensation intact, Other (Chronic facial droop-left side droop, no arm drift, no headache, no seizure activity) Urinary: Other (Adult diaper) Vitals Reviewed Problem list CVA r/o, history of CVA Dysarthria COPD Right side Pneumonia UTI Hypothyroidism Depression HDL COPD Assessment and Plan CVA r/o, history of CVA Dysarthria - Consulted Neurology - recommendations appreciated - NIHSS = 1 - Allow permissive hypertension - q4hr neurochecks - MR brain + MRA head/neck results pending - TTE reports " mild aortic regurgitation, EF 55-60%, - PT/OT consulted- inpatient rehab recommended, Irina requests HH with SN and PT - [employer]P consulted- pending recommendation - Hgb A1c pending, lipid panel (glyceride 53, cholesterol 127, LDL 46, HDL 70, cholesterol 1.81), TSH 2.0 - aspirin, folic acid, atorvastatin daily COPD Right side Pneumonia -On home oxygen 3-5 L, continue with oxygen therapy -CXR revealed right opacities consistent with pneumonia -Azithromycin 500 mg daily UTI -UA positive for Leukocyte esterase -Ceftriaxone ordered -Urine cultures not sent Hypothyroidism -Continue levothyroxine Depression -Continue duloxetine HDL -continue home medication DVT ppx Lovenox Full code Dispo HH with SN and PT, likely discharge today
--- NOTE | 2024-08-27 14:46 | P.DS ---
Admission Date: 08/26/24 Discharge Date: 08/27/24 Disposition: [facility] HOME/HOME HEALTH CARE Reason for Admission: Dysarthria, UTI Brief History of Present Illness: Diagnosis CVA r/o, history of CVA Dysarthria COPD Right side Pneumonia UTI Hypothyroidism Depression HDL COPD HPI 08/25/2024 Irina Pardo is a 69-year-old woman with a past medical history significant for COPD on home oxygen (3-5L daily nasal cannula), history of CVA (last 01/2023) with right sided chronic residual deficits, HDL, depression, and hypothyroidism presented to the emergency room complaining of slurred speech x 3 days. The patient is alert, and oriented x 2not time. The patient's family member is present at bedside. The patient complains of slurred speech that began 3 days ago. She has not attempted anything to alleviate her slurred speech, and states nothing worsens. The patient is a former smoker who quit 3 years ago. She states she has not seen a neurologist in over a year. Also, the patient complains of urinary symptoms that also began 3 days ago. She states she has been having urinary urgency, and urinary frequency but denies dysuria. The patient denies fever, headache, seizures, and atrial fibrillation. Hospital Course: Irina Pardo is a pleasant 69 year old female with a past medical history significant for COPD on home oxygen (3-5L daily nasal cannula), history of CVA (last 01/2023) with right sided chronic residual deficits, HDL, depression, and hypothyroidism who was admitted to the [facility] on 08/25/24 for CVA r/o. Irina presented to the ED with slurred speech for 3 days. She has a history of CVA in January 2023 with residual right-sided weakness. CT head negative for acute findings, brain MRI/MRA reports remote left MCA infarct, and neck MRA reports "Mild areas of atherosclerotic narrowing seen both proximal ICAs. Moderate focal narrowing post bulbar left ICA". Physical therapy and speech therapy evaluated and recommended continued therapy. Prabha prefers home health with physical therapy and assisted. She will need to follow-up with Dr. Pimentel in 1 week. On 08/27/24, Irina was seen on morning rounds and deemed medically stable for discharge. Irina was discharged with instructions to schedule follow-up appointments with Dr. Pimentel and PCP. Irina was provided prescriptions for aspirin, Plavix, Lipitor, folic acid, and azithromycin Physical Exam General: Alert and oriented x3, NAD HEENT: Atraumatic, Normocephalic Neck: JVD not distended Respiratory: Normal air movement, Clear BBS, on RA Cardiovascular: No edema, Regular rate and rhythm, No murmurs Gastrointestinal: Normal bowel sounds, ND/NT, soft on palpation Musculoskeletal: No swelling, No erythema, No tenderness, No warmth Neurological: Normal strength at 5/5 x4 extr (Except right upper extremity 3/5- chronic, right lower extremity 4/5-chronic), Sensation intact, Other (Chronic facial droop-left side droop, no arm drift, no headache, no seizure activity) Urinary: Other (Adult diaper) Vital Signs/Physical Exam: Temp Pulse Resp BP Pulse Ox 97.3 F 98 H 20 132/72 95 08/27/24 12:00 08/27/24 12:00 08/27/24 12:00 08/27/24 12:00 08/27/24 12:00 Laboratory Data at Discharge: WBC 6.50 thou/uL (4.3-10.9) 08/27/24 05:46 Hgb 8.5 g/dL (12.0-15.0) L 08/27/24 05:46 Hct 27.3 % (36.0-45.0) L 08/27/24 05:46 Plt Count 415 thou/uL (152-406) H 08/27/24 05:46 PT 12.6 SECONDS (9.4-12.5) H 08/25/24 13:50 INR 1.13 08/25/24 13:50 APTT 31.2 SECONDS (24.3-36.9) 08/25/24 13:50 Sodium 137 mEq/L (136-145) 08/27/24 05:46 Potassium 4.1 mEq/L (3.5-5.1) 08/27/24 05:46 BUN 12 mg/dL (7-18) 08/27/24 05:46 Creatinine 0.72 mg/dL (0.55-1.02) 08/27/24 05:46 Glucose 89 mg/dL (74-106) 08/27/24 05:46 Phosphorus 3.3 mg/dL (2.5-4.9) 08/27/24 05:46 Magnesium 1.8 mg/dL (1.6-2.4) 08/27/24 05:46 Total Bilirubin 0.3 mg/dL (0.2-1.0) 08/26/24 04:24 AST 14 U/L (15-37) L 08/26/24 04:24 ALT 17 U/L (13-56) 08/26/24 04:24 Alkaline Phosphatase 64 U/L (45-117) 08/26/24 04:24 Triglycerides 53 mg/dL (<150) 08/26/24 04:24 Cholesterol 127 mg/dL (<200) 08/26/24 04:24 HDL Cholesterol 70 mg/dL (40-60) H 08/26/24 04:24 Cholesterol/HDL Ratio 1.81 08/26/24 04:24 Home Medications: Acetaminophen [Tylenol*] 650 mg PO Q4HP PRN tab 03/16/24 Albuterol Neb [Proventil 0.083% Neb Soln] 2.5 mg NEB [id number] PRN amp 03/16/24 Furosemide [Lasix*] 20 mg PO DAILY #30 tab 03/16/24 Guaif/Dm [Robitussin Dm*] 10 ml PO Q6H PRN 03/16/24 Ipratropium Neb [Atrovent*] 0.5 mg NEB [id number] PRN #0 amp 03/16/24 Potassium Chloride [K-Dur] 10 meq PO DAILY 30 Days #30 tab 03/16/24 Aspirin [Aspirin EC 81 MG] 81 mg PO DAILY 30 Days #30 tab 08/27/24 Atorvastatin Calcium [Lipitor] 40 mg PO BEDTIME 30 Days #30 tab 08/27/24 Azithromycin Tab [Zithromax*] 500 mg PO DAILY 7 Days #14 tab 08/27/24 Clopidogrel Bisulfate [Plavix*] 75 mg PO DAILY 30 Days #30 tab 08/27/24 Folic Acid 1 mg PO DAILY 30 Days #30 tab 08/27/24 Levothyroxine Sodium [Synthroid] 0.025 mg PO DAILY 30 Days #15 tab 08/27/24 New Medications: Aspirin [Aspirin EC 81 MG] 81 mg PO DAILY 30 Days #30 tab Folic Acid 1 mg PO DAILY 30 Days #30 tab Atorvastatin Calcium [Lipitor] 40 mg PO BEDTIME 30 Days #30 tab Clopidogrel Bisulfate [Plavix*] 75 mg PO DAILY 30 Days #30 tab Levothyroxine Sodium [Synthroid] 0.025 mg PO DAILY 30 Days #15 tab Azithromycin Tab [Zithromax*] 500 mg PO DAILY 7 Days #14 tab Physician Discharge Instructions: 1. Please call and schedule a follow-up appointment with your PCP in 3-5 days - Please follow-up with your PCP for medication refills/adjustments 2. Please call and schedule a follow-up appointment with Dr. Pimentel in 3-5 days 3. Continue heart healthy diet 4. activity restrictions fall precautions, work with physical therapy at home 5. Return to the ED if symptoms worsen New medications Aspirin 81 mg daily Folic acid 1 mg daily Lipitor 40 mg daily Plavix 75 mg daily Levothyroxine 0.025 mg daily-you will probably need to cut this pill in half and take half a dose that equals 0.025 Azithromycin 500 mg p.o. daily x 7 days HOME HEALTH REFERRAL SENT TO: [facility] ([facility]) P:[phone] Followup: Chalo Pimentel MD [ASSOCIATE-ACTIVE - CAN ADMIT] - NONE,NONE [Primary Care Provider] -
[2024-08-27 16:21] VITALS: BP 145/74; TEMP 97.5
--- NOTE | 2024-08-27 22:43 | CON ---
Reason For Consultation: Consultation called because of possible new stroke. History Of Present Illness: Ms. Pardo is 69-year-old patient with history of prior stroke in January 2023 that left her with chronic right upper and more than lower extremity weakness along with dysarthria, dysphagia, right facial weakness. In addition, she has depression, hypothyroidism. She was brought to [facility] on 08/25/2024 with about 3 days of mild worsening slurred speech and was appa rently only oriented to person and place, but not time. Family members said she had noted no signifi cant worsening over the last 3 days, but that the slurred speech was present. She had not followed u p with a neurologist in over a year. In the parallel, she had worsening potential symptoms of urinar y tract infection with urgency, frequency, but denied dysuria. She had no fevers, chills. Her blood work including urinalysis showed 75 esterase, trace protein, turbid clarity, and cultures eventually were shown as pending. However, her white blood cell count remained normal throughout, hemoglobin s lightly low around 8.3 at lowest and 8.5 at discharge. Her chemistry is essentially unremarkable. C -reactive protein slightly elevated. Liver function studies unremarkable. Vitamin D level found to be elevated to 125. She did have a full stroke workup including blood work. RPR was nonreactive. H er brain MRI showed no acute ischemic or hemorrhagic changes. The study was remarkable for remote le ft middle cerebral artery stroke and again negative in terms of acute ischemic findings. MRA of her neck showed mild areas of atherosclerotic narrowing in both proximal ICAs, moderate focal narrowing o f post bulb left internal carotid artery. MRA of her head showed no significant abnormalities. Echo cardiogram showed ejection fraction 55% to 60%, essentially an unremarkable study. Past Medical History: As noted. Allergies: NO KNOWN DRUG ALLERGIES. Medications: At home, she had prednisone 20 mg daily, potassium 10 mEq twice daily, Atrovent nebuliz er, Robitussin 10 mL every 6 hours as needed, Lasix 20 mg daily, she is azithromycin and Tylenol on b oard. Family History: Noncontributory. Review of Systems: She reports difficulty with her speech and she was sitting eating lunch. She had mild difficulty wit h labial, lingual, and guttural sounds, but was still able to carry her lunch. No other positives ot her than mentioned above. Social History: She smoked, but quit 3 years ago. No alcohol use. Physical Examination: Vital Signs: Blood pressure 132/72, pulse up to 98, respiratory rate 18 to 20, temperature 97.3, oxy gen saturation 96% on room air. General: Ms. Pardo is lying in her bed. She has had the bed up while she is eating lunch. HEENT: She appears to be normocephalic, atraumatic. Sclerae anicteric. Oropharynx pink and moist. Neck: Supple. Chest: Clear. Extremities: Mild edema in the right lower extremity. Neuro: She has on neurological exam mild decrease of her right nasolabial fold with fair excursions for labial, lingual, and guttural sounds. Decreased sensation in the right compared to the left uppe r and lower extremity. The right arm is held in contracture, flexed at the wrist, flexed at the elbo w, unable to have any voluntary movement. Right lower extremity, around 2/5 proximally and distally, all chronic, high tone and brisk reflexes in right compared to left upper and lower extremity. Left side shows good movement, good freedom, normal tone. She was actually evaluated by the Physical Therapy Service and had difficulty with ambulation, poor s tanding balance, increased extensor tone, and the patient did communicate with the therapist. She wa s wanting to go home, although it was noted she was extremely safe and could not use a front wheel wa lker because of the contracted right upper extremity and she has been dealing with the stroke for she says years and insists on going home and the patient was actually discharged home today. Assessment And Plan: Ms. Pardo is a 69-year-old patient with chronic stroke, left MCA producing dense paresis of right upper extremity, dysarthria, dysphagia, weakness in right lower extremity. No obvi ous recurrent infection identified. She did not have urinary tract infection per her urinalysis. Th e chest x-ray which was done on the day of admission showed mild patchy bibasilar airspaces, may refl ect aspiration or early pneumonia and that may have been the patient's etiology for the late affects of her stroke. It is noted she did receive Rocephin and azithromycin and was discharged home on that . In addition, hypothyroidism addressed with Synthroid. She did receive IV fluids, Apresoline addre ssing her hypertension, folic acid continued, Loxitane was used as well, Lipitor for dyslipidemia, as pirin for stroke risk reduction. She has nebulizer treatment and Tylenol for pain. She is discharge d now and may follow up with Dr. Pimentel in clinic in a month. ESTEE/NELSON Voice ID: [id number] Report ID: [id number]
[2024-08-29 05:07] LABS: Anti-Thrombin III Activity 113 % normal (80-135)
[2024-08-29 05:09] LABS: Phosphatidylser & Prothrom IgG <9 U (<=30); Phosphatidylser & Prothrom IgM <9 U (<=30)
[2024-08-29 08:58] LABS: C-ANCA Anti-Proteinase 3 <1.0 AI (<1.0); P-ANCA Anti-Myeloperoxidase Ab <1.0 AI (<1.0)
[2024-08-29 13:43] LABS: Abnormal Protein Band 1 REPORT; Albumin, (SPE) 3.5 g/dL (3.8-4.8); Alpha-1-Globulins 0.5 g/dL (0.2-0.3); Alpha-2-Globulins 0.9 g/dL (0.5-0.9); Beta 1 Globulin 0.4 g/dL (0.4-0.6); Gamma Globulins 0.6 g/dL (0.8-1.7); INTERPRETATION REPORT; Total Protein 6.2 g/dL (6.1-8.1)
--- NOTE | 2024-08-29 16:01 | EKG ---
Test Date: 2024-08-25 Test Time: 13:59:13 Assistant Professor Of Chemistry: LML MEASUREMENT RESULTS: Intervals: Rate: 87 MT: 176 QRSD: 90 QT: 382 QTc: 459 [place]: P: 81 MT: 176 QRS: 54 T: 83 INTERPRETIVE STATEMENTS: Normal sinus rhythm Minimal voltage criteria for LVH, may be normal variant T wave abnormality, consider lateral ischemia Abnormal ECG Compared to ECG 03/14/2024 01:24:00 Left ventricular hypertrophy now present T-wave abnormality now present Possible ischemia now present Electronically Signed On 08-29-24 15:53:49 POIS[employer] BALANCE by Bhavin Barrera
[2024-08-29 21:39] LABS: Anti-Cardiolipin IgG Antibody <2.0 GPL-U/mL (<20.0); Beta-2-Glycoprotein I IgG <2.0 U/mL (<20.0); Beta-2-Glycoprotein I IgM 2.4 U/mL (<20.0)
[2024-08-30 11:57] LABS: Protein C Antigen 92 % normal (70-140)
== END 2024-08-27 18:37 | disposition home health service (06) | DRG 689 ==
LOC: ER 13:16 → ERHOLD 15:56 → 2ND 18:19 → OBSVTOIN 08-26 16:56
PROVIDERS: ADMIT Hospitalist; ATTEND Internal Medicine
DX: N39.0 Urinary tract infection, site not specified (principal); J18.9 Pneumonia, unspecified organism; I69.351 Hemiplegia and hemiparesis following cerebral infarction affecting right dominant side; J44.0 Chronic obstructive pulmonary disease with (acute) lower respiratory infection; R47.01 Aphasia; F32.A Depression, unspecified; E03.9 Hypothyroidism, unspecified; E78.00 Pure hypercholesterolemia, unspecified; I69.392 Facial weakness following cerebral infarction; G93.89 Other specified disorders of brain; R29.701 NIHSS score 1; R47.1 Dysarthria and anarthria; R47.81 Slurred speech; Z99.81 Dependence on supplemental oxygen; Z79.52 Long term (current) use of systemic steroids; Z87.891 Personal history of nicotine dependence; Z91.013 Allergy to seafood; Z79.899 Other long term (current) drug therapy; Z91.048 Other nonmedicinal substance allergy status
CPT/HCPCS: 36415; 70450; 70544; 70549; 70553; 71045; 80048; 80053; 80061; 81001; 81240; 81241; 82306; 82607; 83090; 83516; 83735; 84100; 84165; 84443; 84484; 85025; 85300; 85302; 85305; 85306; 85610; 85730; 86021; 86140; 86146; 86147; 86592; 86593; 92507; 92610; 93005; 93306; 94640; 94760; 96365; 96366; 97116; 97161; 97530; 99285; A9577; G0378; J0360; J0696; J1650; J3475; J7030; J7050; J7644

== ENCOUNTER 2024-09-25 11:02 | Inpatient (IN) | payer OTHER ==
[2024-09-25 12:09] LABS: Absolute Eosinophils 0.1 K/uL (0-0.5); Absolute Lymphocytes (CBC) 1.5 K/uL (0.7-4.9); Absolute Monocytes 1.1 K/uL (0.1-1.3); Absolute Neutrophil 8.5 K/uL (1.8-8.0); Basophils % 0.4 % (0-1.3); Eosinophils % 0.8 % (0-4.4); Hematocrit 30.7 % (36.0-45.0); Hemoglobin 9.7 g/dL (12.0-15.0); Lymphocytes % 13.2 % (15.3-44.8); MCH 24.9 pg (27.0-35.0); MCHC 31.7 g/dL (32.0-36.0); MCV 78.5 fL (80-100); MPV 8.1 fL (7.6-11.3); Monocytes % 9.6 % (3.3-12.3); Nucleated Red Blood Cells % 0.1 % (0-0); Platelets 410 thou/uL (152-406); RBC Red Blood Cell Count 3.91 M/uL (3.86-4.86); Red Cell Distribution Width 15.6 % (12.1-15.2)
[2024-09-25] MEDS ORDERED: METHYLPREDNISOLONE 125 MG INJ ONE (12:18)
[2024-09-25] MEDS ORDERED: IPRATROPIUM BROM 0.5MG/2.5ML ONE (12:18)
[2024-09-25] MEDS ORDERED: LEVALBUTEROL 1.25 MG/3 ML NEB ONE (12:19)
[2024-09-25] MEDS ORDERED: MAGNESIUM SULFATE 1 gm IVPB 1 GM/100 ML BAG IV ONE (12:19)
[2024-09-25 12:30] LABS: PT Prothrombin Time 11.5 SECONDS (9.4-12.5); PTT, Activated Partial Thromb 30.2 SECONDS (24.3-36.9); Protime INR 1.03
[2024-09-25 12:31] LABS: Albumin 3.5 g/dL (3.4-5.0); Albumin/Globulin Ratio 1.1 (1.1-1.8); Anion Gap 8.5 mEq/L (5.0-15.0); Bilirubin Total 0.4 mg/dL (0.2-1.0); Globulin 3.2 g/dL (2.3-3.5); Potassium 3.5 mEq/L (3.5-5.1); Protein, Total 6.7 g/dL (6.4-8.2)
[2024-09-25 12:43] LABS: SARS-CoV-2 Antigen CONTROL BLUE LINE VIS/BG OK; SARS-CoV-2 Antigen Rapid Res Negative (Negative)
--- NOTE | 2024-09-25 12:58 | RAD REPORT ---
EXAMINATION: ONE VIEW CHEST XR CLINICAL INDICATION: Cough;Dyspnea TECHNIQUE: Frontal chest projection is submitted. Examination is limited by patient positioning and t echnique. COMPARISON: 08/25/2024 FINDINGS: The lungs are diffusely emphysematous but grossly clear. The heart is normal in size. No displaced fr actures identified. Old right-sided rib fractures. Cervical hardware plate. IMPRESSION: COPD without an acute process suspected.
[2024-09-25] MEDS ORDERED: NA CHLORIDE 0.9% 500 ML ONE (13:42)
--- NOTE | 2024-09-25 14:25 | ER ---
Nurse's Notes [facility] Name: Irina Pardo Age: 69 yrs Sex: Female : 1955 Arrival Date: 09/25/2024 Time: 11:02 Bed 2 Private MD: Diagnosis: COPD/ Chronic obstructive pulmonary disease with (acute) exacerbation;Hypoxemia;Hypotension, unspecified Presentation: 09/25 11:07 Chief complaint: EMS states: SHORTNESS OF BREATH. Coronavirus screen: At this time, the bp client does not indicate any symptoms associated with coronavirus-19. Ebola Screen: No symptoms or risks identified at this time. Initial Sepsis Screen: Does the patient meet any 2 criteria? HR > 90 bpm. No. Patient's initial sepsis screen is negative. Does the patient have a suspected source of infection? No. Patient's initial sepsis screen is negative. Risk Assessment: Do you want to hurt yourself or someone else? Patient reports no desire to harm self or others. Onset of symptoms is unknown. Care prior to arrival: Medication(s) given: ALBUTEROL NEB. 11:07 Method Of Arrival: EMS: [facility] bp 11:07 Acuity: FRANK 3 bp Triage Assessment: 11:08 General: Appears ill, Behavior is calm, cooperative, appropriate for age. Pain: Denies bp pain. EENT: No deficits noted. Neuro: R SIDED DEFICITS 2/2 PREVIOUS CVA. Cardiovascular: Rhythm is sinus tachycardia. Respiratory: Reports shortness of breath cough that is Onset: The symptoms/episode began/occurred at an unknown time. the patient has moderate shortness of breath. GI: No signs and/or symptoms were reported involving the gastrointestinal system. : No signs and/or symptoms were reported regarding the genitourinary system. Derm: No deficits noted. Musculoskeletal: No deficits noted. Historical: - Allergies: 11:08 Iodine; bp 11:08 SHELLFISH; bp - PMHx: 11:08 COPD; CVA; High Cholesterol; bp - Immunization history:: Adult Immunizations up to date. - Infectious Disease History:: Denies. - Social history:: Smoking status: unknown. - Family history:: not pertinent. - Hospitalizations: : The patient was recently seen at [facility]. Screenin:09 [facility] ED Fall Risk Assessment (Adult) History of falling in the last 3 months, bp including since admission No falls in past 3 months (0 pts) Confusion or Disorientation No (0 pts) Intoxicated or Sedated No (0 pts) Impaired Gait No (0 pts) Mobility Assist Device Used No (0 pt) Altered Elimination No (0 pt) Score/Fall Risk Level 0 - 2 = Low Risk Oriented to surroundings. Abuse screen: Denies threats or abuse. Denies injuries from another. Nutritional screening: No deficits noted. Tuberculosis screening: No symptoms or risk factors identified. Assessment: 11:09 General: Appears in no apparent distress. ill, Behavior is calm, cooperative, bp appropriate for age. Cardiovascular: Rhythm is sinus tachycardia. Respiratory: Airway is patent Respiratory effort is labored, Breath sounds with crackles bilaterally. Breath sounds with wheezes bilaterally. 15:08 Reassessment: pt placed on pure wick at this time. kc6 15:43 Reassessment: ADMIT ON HOLD, BED BEING REASSIGNED PER ENVIRONMENTAL RESEARCH PROJECT MANAGER. bp 16:12 Reassessment: REPORT FAXED TO [facility]. bp Vital Signs: 11:07 BP 110 / 76; Pulse 113; Resp 28; Pulse Ox 95% on 12 lpm Nebulizer Mask; bp 12:26 BP 118 / 77; Pulse 102; Resp 20 S; Pulse Ox 100% ; kc6 13:32 BP 91 / 52; Pulse 84; Resp 24; Pulse Ox 94% ; bp 15:30 BP 118 / 73; Pulse 92; Resp 24; Pulse Ox 98% on 3 lpm NC; bp ED Course: 11:07 Patient arrived in ED. bp 11:07 Je Capone MD is Attending Physician. rn 11:08 Triage completed. bp 11:08 Arm band placed on. bp 11:09 Patient has correct armband on for positive identification. bp 11:11 Wilver Sahu, ALFREDO is Primary Nurse. bp 11:50 Inserted saline lock: 20 gauge in left forearm, using aseptic technique. Blood bp collected. Flushed with 10 mL NS. 12:54 Chest Single View XRAY In Process Unspecified. EDMS 14:24 Javed Tobin MD is Hospitalizing Provider. rn 15:42 No provider procedures requiring assistance completed. Patient admitted, IV remains in bp place. Administered Medications: 11:45 Drug: MethylPrednisoLONE IVP 125 mg IVP once Route: IVP; Site: left forearm; bp 11:45 Drug: Magnesium Sulfate IVPB 1 grams IVPB once over 1 hrs Route: IVPB; Infused Over: 1 bp hrs; Site: left forearm; 11:45 Drug: Levalbuterol Inhalation 1.25 mg Inhalation once Route: Inhalation; bp 11:45 Drug: Levalbuterol Inhalation 1.25 mg Inhalation once Route: Inhalation; bp 11:45 Drug: Ipratropium Inhalation Aerosol 0.5 mg Inhalation once Route: Inhalation; bp 13:50 Drug: NS 0.9% IV 500 ml 500 ml IV at 1 bolus once; to be given as a bolus over 30 bp minutes Volume: 500 ml; Route: IV; Rate: 1 bolus; Site: left forearm; 15:43 Follow up: IV Status: Completed infusion bp 14:44 Drug: levofloxacin IVPB 500 mg 100 ml IVPB once over 60 mins Volume: 100 ml; Route: bp IVPB; Infused Over: 60 mins; Site: left forearm; 15:43 Follow up: IV Status: Completed infusion bp Medication: 11:09 VIS not applicable for this client. bp Outcome: 14:24 Decision to Hospitalize by Provider. rn 17:19 Patient left the ED. kc6 Signatures: Dispatcher [employer] EDJe Balbuena MD MD rn Peltier, Brian, RN RN bp Campbell, Kaitlyn, RN RN kc6
--- NOTE | 2024-09-25 14:25 | EDPHYS ---
Physician Documentation [facility] Name: Irina Pardo Age: 69 yrs Sex: Female : 1955 Arrival Date: 09/25/2024 Time: 11:02 Bed 2 Private MD: ED Physician Je Capone HPI: 09/25 11:45 This 69 yrs old Female presents to ER via EMS with complaints of Shortness Of Breath. rn 11:45 The patient has shortness of breath at rest, with light activity. Onset: The rn symptoms/episode began/occurred 2 day(s) ago. Duration: The symptoms are continuous. The patient's shortness of breath is aggravated by coughing, exertion. Associated signs and symptoms: Pertinent positives: productive cough, Pertinent negatives: chest pain, hemoptysis. Severity of symptoms: At their worst the symptoms were moderate in the emergency department the symptoms are unchanged. The patient has experienced similar episodes in the past. Patient reports 2 or 3 days of increased shortness of breath. Patient states "I have been living here lately". Has COPD with new productive cough. No fever. Reports recurrent pneumonia in the past. No trauma. No history of DVT or PE.. Historical: - Allergies: 11:08 Iodine; bp 11:08 SHELLFISH; bp - PMHx: 11:08 COPD; CVA; High Cholesterol; bp - Immunization history:: Adult Immunizations up to date. - Infectious Disease History:: Denies. - Social history:: Smoking status: unknown. - Family history:: not pertinent. - Hospitalizations: : The patient was recently seen at [facility]. ROS: 11:45 Constitutional: Negative for fever, chills, and weight loss, Cardiovascular: Negative rn for chest pain, palpitations, and edema, Respiratory: Positive for cough and shortness of breath Abdomen/GI: Negative for abdominal pain, nausea, vomiting, diarrhea, and constipation, MS/Extremity: Negative for injury and deformity, Skin: Negative for injury, rash, and discoloration, Neuro: Positive for generalized weakness and malaise Exam: 11:45 Constitutional: This is a well developed, well nourished patient who is awake, alert, rn moderate tachypnea Head/Face: Normocephalic, atraumatic. Cardiovascular: Tachycardic, regular. Respiratory: Coarse bilateral breath sounds with expiratory wheezing and moderate tachypnea. 3 word sentences Abdomen/GI: Soft, non-tender MS/ Extremity: Pulses equal, no cyanosis. Neuro: Awake and alert, GCS 15 14:48 ECG was reviewed by the Attending Physician. rn Vital Signs: 11:07 BP 110 / 76; Pulse 113; Resp 28; Pulse Ox 95% on 12 lpm Nebulizer Mask; bp 12:26 BP 118 / 77; Pulse 102; Resp 20 S; Pulse Ox 100% ; kc6 13:32 BP 91 / 52; Pulse 84; Resp 24; Pulse Ox 94% ; bp 15:30 BP 118 / 73; Pulse 92; Resp 24; Pulse Ox 98% on 3 lpm NC; bp MDM: 11:07 Medical Screening Exam initiated rn 14:22 Differential diagnosis: Anemia Anxiety Reaction Bronchitis Chronic Obstructive rn Pulmonary Disease Myocardial Infarction pneumonia, Pneumothorax pulmonary edema. Data reviewed: vital signs, nurses notes, lab test result(s), EKG, radiologic studies, plain films, and as a result, I will admit patient. Consideration of Admission/Observation Patient was admitted/placed on observation. Escalation of care including admission/observation considered. Counseling: I had a detailed discussion with the patient and/or guardian regarding the historical points, exam findings, and any diagnostic results supporting the discharge/admit diagnosis, lab results, radiology results, the need for further work-up and treatment in the hospital. Response to treatment: the patient's symptoms have mildly improved after treatment, and as a result, I will admit patient. ED course: Patient still tachypneic and requiring more oxygen than she does at home. Chest x-ray clear of infection per my interpretation. Lactic acid normal. Will admit to hospital service for moderate to severe COPD exacerbation.. ED course: I personally spent 35 minutes engaged in work directly related to the individual patient's care. This does not include any time spent performing procedures. The patient has been deemed critically ill because of severe COPD exacerbation requiring multiple nebulizer treatments, IV magnesium, IV steroids, oxygen supplementation and admission to hospital. 09/25 11:08 Order name: Blood Culture Adult (2) rn 09/25 11:08 Order name: CBC with Diff rn 09/25 11:08 Order name: CMP; Complete Time: 12:56 rn 09/25 11:08 Order name: Lactate w/ 2H reflex if indic.; Complete Time: 12:56 rn 09/25 11:08 Order name: Protime (+inr); Complete Time: 12:56 rn 09/25 11:08 Order name: Ptt, Activated; Complete Time: 12:56 rn 09/25 11:08 Order name: Flu; Complete Time: 13:27 rn 09/25 11:08 Order name: SARS-COV-2 Antigen Rapid; Complete Time: 12:56 rn 09/25 11:24 Order name: NT PRO-BNP; Complete Time: 12:56 EDMS 09/25 15:30 Order name: Urinalysis w/ reflexes EDMS 09/25 15:30 Order name: CBC with Automated Diff EDMS 09/25 15:30 Order name: CBC with Automated Diff EDMS 09/25 15:30 Order name: CBC with Automated Diff EDMS 09/25 15:30 Order name: CBC with Automated Diff EDMS 09/25 15:30 Order name: Comprehensive Metabolic Panel EDMS 09/25 15:30 Order name: Comprehensive Metabolic Panel EDMS 09/25 15:30 Order name: Comprehensive Metabolic Panel EDMS 09/25 15:30 Order name: Comprehensive Metabolic Panel EDMS 09/25 15:30 Order name: Magnesium EDMS 09/25 15:30 Order name: Magnesium EDMS 09/25 15:30 Order name: Magnesium EDMS 09/25 15:30 Order name: Magnesium EDMS 09/25 15:30 Order name: Phosphorus EDMS 09/25 15:30 Order name: Phosphorus EDMS 09/25 15:30 Order name: Phosphorus EDMS 09/25 15:30 Order name: Phosphorus EDMS 09/25 11:08 Order name: Chest Single View XRAY; Complete Time: 13:05 rn 09/25 15:28 Order name: CONS Physician Consult EDMS 09/25 11:08 Order name: Accucheck; Complete Time: 11:11 rn 09/25 11:08 Order name: Cardiac monitoring; Complete Time: 11:11 rn 09/25 11:08 Order name: EKG - Nurse/Tech; Complete Time: 12:00 rn 09/25 11:08 Order name: IV Saline Lock - Large Bore; Complete Time: 12:00 rn 09/25 11:08 Order name: Labs collected and sent; Complete Time: 12:00 rn 09/25 11:08 Order name: O2 Per Protocol; Complete Time: 11:11 rn 09/25 11:08 Order name: O2 Sat Monitoring; Complete Time: rn 09/25 11: Order name: Vital Signs; Complete Time: rn EC:48 Rate is 108 beats/min. Rhythm is regular. QRS Barry is Normal. TX interval is normal. rn QRS interval is normal. QT interval is normal. No Q waves. T waves are Normal. No ST changes noted. Clinical impression: Sinus tachycardia. Interpreted by me. Reviewed by me. Administered Medications: 11:45 Drug: MethylPrednisoLONE IVP 125 mg IVP once Route: IVP; Site: left forearm; bp 11:45 Drug: Magnesium Sulfate IVPB 1 grams IVPB once over 1 hrs Route: IVPB; Infused Over: 1 bp hrs; Site: left forearm; 11:45 Drug: Levalbuterol Inhalation 1.25 mg Inhalation once Route: Inhalation; bp 11:45 Drug: Levalbuterol Inhalation 1.25 mg Inhalation once Route: Inhalation; bp 11:45 Drug: Ipratropium Inhalation Aerosol 0.5 mg Inhalation once Route: Inhalation; bp 13:50 Drug: NS 0.9% IV 500 ml 500 ml IV at 1 bolus once; to be given as a bolus over 30 bp minutes Volume: 500 ml; Route: IV; Rate: 1 bolus; Site: left forearm; 15:43 Follow up: IV Status: Completed infusion bp 14:44 Drug: levofloxacin IVPB 500 mg 100 ml IVPB once over 60 mins Volume: 100 ml; Route: bp IVPB; Infused Over: 60 mins; Site: left forearm; 15:43 Follow up: IV Status: Completed infusion bp Disposition: 14:22 Critical Care:. rn Disposition Summary: 09/25/24 14:24 Hospitalization Ordered Notes: Hospitalization Status: Inpatient Admission rn Provider: Javed Tobin [facility]n [facility] rn Condition: Stable rn Problem: an acute exacerbation rn Symptoms: have improved rn Bed/Room Type: Standard rn Room Assignment: 201(09/25/24 15:54) em1 Diagnosis - COPD/ Chronic obstructive pulmonary disease with (acute) exacerbation rn - Hypoxemia rn - Hypotension, unspecified rn Forms: - Medication Reconciliation Form rn - SBAR form rn - Leadership Thank You Letter rn occupational health time excluding procedures: 14:22 Critical care time: Bedside Care: 35 minutes. Total time: 35 minutes rn Signatures: Dispatcher [employer] EDMS Je Capone MD MD rn Martinez, Eric em Wilver Sahu, RN RN bp Corrections: (The following items were deleted from the chart) 11: 11:08 BLOOD CULTURE*+BA.LAB.BRZ ordered. EDMS EDMS 11: 11:08 CBC+H.LAB.BRZ ordered. EDMS EDMS 11: 11:08 COMPREHENSIVE METABOLIC PANEL+C.LAB.BRZ ordered. EDMS EDMS 11: 11:08 LACTATE+C.LAB.BRZ ordered. EDMS EDMS 11: 11:08 PROTIME (+INR)+COAG.LAB.BRZ ordered. EDMS EDMS 11: 11:08 PTT, ACTIVATED+COAG.LAB.BRZ ordered. EDMS EDMS 11: 11:08 Influenza Screen (A \\T\\ B)+BA.LAB.BRZ ordered. EDMS EDMS 11:08 11:08 SARS-COV-2 Antigen Rapid+I.LAB.BRZ ordered. EDMS EDMS 11: 11:08 Chest Single View+RAD.RAD.BRZ ordered. EDMS EDMS 11:25 11:17 PROBNP+C.LAB.BRZ ordered. EDMS EDMS 15:33 14:24 rn em1 15:46 15:33 411 em1 em1 15:54 15:46 em1 em1
[2024-09-25] MEDS ORDERED: Levofloxacin500mg IV 500 MG/100 ML BAG IV ONE (14:40)
--- NOTE | 2024-09-25 15:17 | P.HP ---
Certification for Inpatient Patient admitted to: Inpatient With expected LOS: <2 Midnights <Kelle Hood - Last Filed: 09/25/24 16:43> Patient History Date of Service: 09/25/24 Reason for admission: COPD exacerbation History of Present Illness: 69-year-old female with a past medical history significant for COPD on home oxygen, CVA aphasia, with right sided weakness, dysphagia, depression, and hypothyroidism presented to the emergency room complaining shortness of breath. Shortness of breath worse with exertion. She reports associated wheezes, productive cough worse over the last 2 days. She denies fever, chest pain, abdominal pain, she reports history of recurrent pneumonia. patient was previously admitted 08/25/24-08/27/24. was evaluated by speech therapy, 08/26/24 speech recommended bite-size textures with thin liquids. The patient was discharged home with home health. ER evaluation chest x-ray The lungs are diffusely emphysematous but grossly clear. The heart is normal in size. No displaced fractures identified. Old right-sided rib fractures. Cervical hardware plate. IMPRESSION: COPD without an acute process suspected. Laboratory evaluation, mild leukocytosis 11.20, microcytic anemia hemoglobin 9.7, MCV low at 30.7, thrombocytosis 410, elevated neutrophils at 76.0, mildly elevated BNP at 972, Plan to admit for acute hypoxic respiratory failure secondary to COPD exacerbation, - Past Medical/Surgical History Diabetic: No -: COPD on home oxygen -: stroke hx-chronic right-sided deficits -: HLD -: Hypothyroidism -: Depression -: Unable to obtain - Social History Alcohol use: No CD- Drugs: No Caffeine use: Yes <Kelle Hood - Last Filed: 09/25/24 16:43> Date of Service: 09/30/24 <Javed Tobin - Last Filed: 09/30/24 02:23> Allergies No Known Allergies Allergy (Unverified 09/01/21 14:40) Home Medications: Acetaminophen [Tylenol*] 650 mg PO Q4HP PRN tab 03/16/24 Guaif/Dm [Robitussin Dm*] 10 ml PO Q6H PRN 03/16/24 Aspirin [Aspirin EC 81 MG] 81 mg PO DAILY 30 Days #30 tab 08/27/24 Clopidogrel Bisulfate [Plavix*] 75 mg PO DAILY 30 Days #30 tab 08/27/24 Folic Acid 1 mg PO DAILY 30 Days #30 tab 08/27/24 Levothyroxine Sodium [Synthroid] 0.025 mg PO DAILY 30 Days #15 tab 08/27/24 ARIPiprazole [Aripiprazole] 1 tab PO BEDTIME 09/26/24 Amitriptyline HCl 3 tab PO BEDTIME 09/26/24 Atorvastatin Calcium [Lipitor] 10 mg PO BEDTIME 09/26/24 Bisacodyl [Women's Laxative] 1 tab PO DAILY 09/26/24 Duloxetine HCl 1 cap PO DAILY 09/26/24 Famotidine [Pepcid] 1 tab PO DAILY 09/26/24 Albuterol Neb [Proventil 0.083% Neb Soln] 2.5 mg NEB [id number] PRN #1 box 09/29/24 Amox/Clavulanate [Augmentin 500-125 mg Tab*] 500 mg PO BID #14 tab 09/29/24 Ensure High Protein 237 ml PO BID #14 can 09/29/24 Ipratropium Neb [Atrovent*] 0.5 mg NEB [id number] PRN #1 box 09/29/24 Mometasone/Formoterol [Dulera 100 Mcg/5 Mcg Inhaler] 2 puff IH BID #1 ea 09/29/24 Nebulizer 1 each MC Q6HP PRN #1 ea 09/29/24 Nebulizer Accessories [Adult Aerosol Mask] 1 each MC Q6HP PRN #1 box 09/29/24 predniSONE [Deltasone*] 10 mg PO DAILY #5 tab 09/29/24 predniSONE [Prednisone*] 10 mg PO BID #10 tab 09/29/24 Review of Systems 10-point ROS is otherwise unremarkable <Kelle Hood - Last Filed: 09/25/24 16:43> Physical Examination - Physical Exam General: Alert, Mild distress HEENT: Atraumatic, Normocephalic Neck: Supple, JVD not distended Respiratory: Expiratory wheezes, Inspiratory wheezes, Other (Hypoxemia) Capillary refill: <2 Seconds Gastrointestinal: Soft and benign, Non-distended Musculoskeletal: Other (Right sided weakness) Neurological: Other (Expressive aphasia,), Abnormal speech, Abnormal strength - Studies Laboratory Data (last 24 hrs) 09/25/24 09/25/24 09/25/24 12:00 12:00 12:00 WBC 11.20 H Hgb 9.7 L Hct 30.7 L Plt Count 410 H PT 11.5 INR 1.03 APTT 30.2 Sodium 135 L Potassium 3.5 BUN 14 Creatinine 0.83 Glucose 109 H Total Bilirubin 0.4 AST 18 ALT 18 Alkaline Phosphatase 81 Microbiology Data (last 24 hrs): 09/25/24 12:00 Nasopharnyx Influenza Type A Antigen Screen - Final 09/25/24 12:00 Nasopharnyx Influenza Type B Antigen Screen - Final <Kelle Hood - Last Filed: 09/25/24 16:43> Assessment and Plan - Problems (Diagnosis) (1) Acute respiratory failure with hypoxia Current Visit: No Status: Acute (2) COPD exacerbation Current Visit: No Status: Acute (3) Dysphagia Current Visit: Yes Status: Acute (4) Expressive aphasia Current Visit: Yes Status: Acute (5) On home oxygen therapy Current Visit: No Status: Acute (6) Microcytic anemia Current Visit: Yes Status: Acute (7) Thrombocytosis Current Visit: Yes Status: Acute - Plan Assessment plan Pulmonary consult O2 2 L keep sats greater than 92% Nebs, steroids, IV antibiotics, Speech eval for dysphagia PT eval for unsteady gait Dietitian consult for protein calorie supplementation Iron studies for anemia Full code DVT Lovenox Diet soft bite-size, Disposition Home with home health Discharge Plan: Home Plan to discharge in: 48 Hours - Advance Directives Does patient have a Living Will: No Does patient have a Durable POA for Healthcare: No - Code Status/Comfort Care Code Status: Full Code Critical Care: No Time Spent Managing Pts Care (In Minutes): 55 <Kelle Hood - Last Filed: 09/25/24 16:43> Date of Service: 09/25/24 Chart has been reviewed. Events of the last 24 hours have been noted. Case discussed with LEONARD. I performed a substantial part of the MDM during this patient's care today. I personally made or approved the documented management plan and acknowledge its risk of complications. I agree with the findings and documentation provided in the LEONARD's notes Patient comes in with shortness of breath and respiratory distress. Will continue with diuresing and also continue with nebs, steroids, and antibiotics. Patient is really weak and will discuss with family regarding plan of care. <Javed Tobin - Last Filed: 09/30/24 02:23>
[2024-09-25] MEDS ORDERED: ONDANSETRON 4 MG/2 ML VIAL IV PRN (15:26)
[2024-09-25] MEDS ORDERED: ACETAMINOPHEN 500 MG TAB PO PRN (15:26)
[2024-09-25] MEDS: PIPER TAZO 3.375 GM in NA CHLORIDE 0.9% 100 ML IV SCH (18:00)
[2024-09-25] MEDS: ENOXAPARIN 40 MG/0.4 ML SQ SCH (18:20)
[2024-09-25] MEDS: METHYLPREDNISOLONE 125 MG INJ IV SCH (18:20)
[2024-09-25 18:37] VITALS: BMI 21.9
[2024-09-26 05:48] LABS: Absolute Lymphocytes (CBC) 0.6 K/uL (0.7-4.9); Absolute Monocytes 0.2 K/uL (0.1-1.3); Absolute Neutrophil 4.8 K/uL (1.8-8.0); Basophils % 0.2 % (0-1.3); Hematocrit 27.4 % (36.0-45.0); Hemoglobin 8.7 g/dL (12.0-15.0); Lymphocytes % 10.9 % (15.3-44.8); MCH 24.7 pg (27.0-35.0); MCHC 31.9 g/dL (32.0-36.0); MCV 77.6 fL (80-100); MPV 8.1 fL (7.6-11.3); Neutrophils % 85.9 % (41.7-73.7); Nucleated Red Blood Cells % 0.1 % (0-0); Percent Reticulocyte Count 0.75 % (0.4-2.05); Platelets 332 thou/uL (152-406); RBC Red Blood Cell Count 3.54 M/uL (3.86-4.86); Red Cell Distribution Width 15.5 % (12.1-15.2)
[2024-09-26 06:22] LABS: ALT/SGPT 18 U/L (13-56); Albumin/Globulin Ratio 0.9 (1.1-1.8); Alkaline Phosphatase 70 U/L (45-117); Anion Gap 9.5 mEq/L (5.0-15.0); BUN Blood Urea Nitrogen 11 mg/dL (7-18); Bicarbonate 27 mEq/L (21-32); Bilirubin Total 0.5 mg/dL (0.2-1.0); Ferritin 25.5 ng/mL (8-252); Globulin 3.5 g/dL (2.3-3.5); Glomerular Filtration Rate 95 ml/min (=/>90); Glucose Level 132 mg/dL (74-106); Magnesium 2.1 mg/dL (1.6-2.4); Phosphorus 3.3 mg/dL (2.5-4.9); Potassium 4.5 mEq/L (3.5-5.1); Protein, Total 6.5 g/dL (6.4-8.2); Sodium Level 136 mEq/L (136-145); Transferrin 218 mg/dL (200-360)
[2024-09-26] MEDS: IPRATROPIUM BROM 0.5MG/2.5ML NEB PRN (06:23)
[2024-09-26 06:28] LABS: AST/SGOT < 10 U/L (15-37)
[2024-09-26] MEDS: INSULIN REGULAR (HUMAN) 100 UNIT/ML SQ SCH (07:30)
[2024-09-26 09:35] LABS: Anisocytosis 1+; Blood Morphology Comment NOTED (NOT SEEN); Microcytosis 1+; Platelet Estimate ADEQ; Platelets Clumped FEW; White Blood Cell Scan OK (OK)
[2024-09-26] MEDS ORDERED: GUAIFENESIN/DM 5 ML UCUP PO PRN (10:40)
[2024-09-26] MEDS: METOPROLOL TARTRATE 5 MG/5 ML INJ IV SCH (10:55)
[2024-09-26] MEDS: ASPIRIN EC 81 MG TAB PO SCH (12:48)
[2024-09-26] MEDS: METOPROLOL TAR 25 MG TAB PO SCH (12:56)
--- NOTE | 2024-09-26 14:53 | P.PN ---
Subjective Date of Service: 09/26/24 Chief Complaint: COPD exacerbation 94% on 3 L, shortness of breath with exertion, ambulated with physical therapy today <Kelle Hood - Last Filed: 09/26/24 14:57> Date of Service: 09/26/24 <Javed Tobin - Last Filed: 09/30/24 02:29> Review of Systems 10-point ROS is otherwise unremarkable <Kelle Hood - Last Filed: 09/26/24 14:57> Physical Examination - Vital Signs Temperature: 98.1 F Blood Pressure: 164/86 Pulse: 100 Respirations: 18 Pulse Ox (%): 94 - Physical Exam General: Alert, In no apparent distress, Oriented x3 HEENT: Atraumatic, Normocephalic Respiratory: Expiratory wheezes, Inspiratory wheezes, Other (Productive cough) Cardiovascular: Normal pulses, Regular rate/rhythm, Normal S1 S2 Capillary refill: <2 Seconds Gastrointestinal: Normal bowel sounds, Soft and benign Musculoskeletal: Other (Right upper extremity lower extremity weakness) Integumentary: No breakdown, No significant lesion Neurological: Other (Expressive aphasia, facial droop, right hemiparesis) - Studies Microbiology Data (last 24 hrs): 09/25/24 12:00 Nasopharnyx Influenza Type A Antigen Screen - Final 09/25/24 12:00 Nasopharnyx Influenza Type B Antigen Screen - Final <Kelle Hood - Last Filed: 09/26/24 14:57> Assessment And Plan - Current Problems (Diagnosis) (1) Acute respiratory failure with hypoxia Current Visit: No Status: Acute (2) COPD exacerbation Current Visit: No Status: Acute (3) Dysphagia Current Visit: Yes Status: Acute (4) Expressive aphasia Current Visit: Yes Status: Acute (5) On home oxygen therapy Current Visit: No Status: Acute (6) Microcytic anemia Current Visit: Yes Status: Acute (7) Thrombocytosis Current Visit: Yes Status: Acute - Plan Assessment plan Pulmonary consult O2 2 L keep sats greater than 92% Nebs, steroids, IV antibiotics, cough suppressant Speech eval for dysphagia PT eval for unsteady gait Dietitian consult for protein calorie supplementation Iron studies for anemia, microcytic anemia, start iron supplement Full code DVT Lovenox Diet soft bite-size, Disposition Home with home health, PT and prison <Kelle Hood - Last Filed: 09/26/24 14:57> Date of Service: 09/26/24 Chart has been reviewed. Events of the last 24 hours have been noted. Case discussed with LEONARD. I performed a substantial part of the MDM during this patient's care today. I personally made or approved the documented management plan and acknowledge its risk of complications. I agree with the findings and documentation provided in the LEONARD's notes Patient comes in with shortness of breath and respiratory distress. Will continue with diuresing and also continue with nebs, steroids, and antibiotics. Patient is really weak and will discuss with family regarding plan of care. <Javed Tobin - Last Filed: 09/30/24 02:29>
[2024-09-26] MEDS: FE SULF/FA/VIT B COMP & C TAB PO SCH (17:49)
[2024-09-26] MEDS: ATORVASTATIN 10 MG TAB PO SCH (19:59)
[2024-09-26] MEDS: AMITRIPTYLINE 50 MG TAB PO SCH (19:59)
[2024-09-26] MEDS: ENSURE HIGH PROTEIN 237 ML CAN PO SCH (20:00)
[2024-09-26] MEDS: HOME MED 1 EA UNK (Aripiprazole [Aripiprazole] 2 MG Tablet) PO SCH (20:00)
--- NOTE | 2024-09-26 22:28 | P.CNS ---
Date of Consult: 09/26/24 Chief Complaint: COPD exacerbation History of Present Illness: Patient is 69 years of age with a history of COPD came into the emergency room with worsening dyspnea patient has expressive dysphasia from her stroke apparently she has been worse over the past couple of days uses a nebulizer at home feels better apparently does not have oxygen at home quit smoking years ago feels better Allergies No Known Allergies Allergy (Unverified 09/01/21 14:40) Home Medications: Acetaminophen [Tylenol*] 650 mg PO Q4HP PRN tab 03/16/24 Albuterol Neb [Proventil 0.083% Neb Soln] 2.5 mg NEB [id number] PRN amp 03/16/24 Guaif/Dm [Robitussin Dm*] 10 ml PO Q6H PRN 03/16/24 Ipratropium Neb [Atrovent*] 0.5 mg NEB [id number] PRN #0 amp 03/16/24 Aspirin [Aspirin EC 81 MG] 81 mg PO DAILY 30 Days #30 tab 08/27/24 Clopidogrel Bisulfate [Plavix*] 75 mg PO DAILY 30 Days #30 tab 08/27/24 Folic Acid 1 mg PO DAILY 30 Days #30 tab 08/27/24 Levothyroxine Sodium [Synthroid] 0.025 mg PO DAILY 30 Days #15 tab 08/27/24 ARIPiprazole [Aripiprazole] 1 tab PO BEDTIME 09/26/24 Amitriptyline HCl 3 tab PO BEDTIME 09/26/24 Atorvastatin Calcium [Lipitor] 10 mg PO BEDTIME 09/26/24 Bisacodyl [Women's Laxative] 1 tab PO DAILY 09/26/24 Duloxetine HCl 1 cap PO DAILY 09/26/24 Famotidine [Pepcid] 1 tab PO DAILY 09/26/24 - Past Medical/Surgical History Diabetic: No -: COPD on home oxygen -: stroke hx-chronic right-sided deficits -: HLD -: Hypothyroidism -: Depression -: Unable to obtain - Social History Smoking Status: Unknown if ever smoked Alcohol use: No CD- Drugs: No Caffeine use: No Review of Systems is unable to be obtained Physical Examination Temp Pulse Resp BP Pulse Ox 97.7 F 68 18 156/92 H 99 09/26/24 20:00 09/26/24 20:00 09/26/24 20:00 09/26/24 20:00 09/26/24 20:00 General: Alert, Oriented x3 Respiratory: Diminished, Expiratory wheezes Cardiovascular: No edema, Regular rate/rhythm, Normal S1 S2 Gastrointestinal: Normal bowel sounds, Soft and benign Neurological: Other (Right hand is paralyzed patient is able to move both her legs expressive dysphasia) - Problems (1) COPD exacerbation Current Visit: No Status: Acute Plan: Patient is 69 years of age with a history of COPD former smoker admitted with an exacerbation doing much better chest x-ray consistent with COPD there is no evidence of any pneumonia patient has a mild microcytic anemia probably has underlying iron deficiency will need a GI evaluation replace iron evaluate for home oxygen discharge on Augmentin prednisone and a long-acting bronchodilator recommend John for now and follow-up in my office in 2 weeks
[2024-09-27 05:06] LABS: Absolute Lymphocytes (CBC) 0.9 K/uL (0.7-4.9); Absolute Monocytes 0.6 K/uL (0.1-1.3); Absolute Neutrophil 8.7 K/uL (1.8-8.0); Basophils % 0.1 % (0-1.3); Hematocrit 28.9 % (36.0-45.0); Hemoglobin 9.3 g/dL (12.0-15.0); Lymphocytes % 9.2 % (15.3-44.8); MCH 24.5 pg (27.0-35.0); MCHC 32.1 g/dL (32.0-36.0); MCV 76.2 fL (80-100); MPV 8.2 fL (7.6-11.3); Monocytes % 6.1 % (3.3-12.3); Neutrophils % 84.6 % (41.7-73.7); Nucleated Red Blood Cells % 0.1 % (0-0); Platelets 372 thou/uL (152-406); RBC Red Blood Cell Count 3.79 M/uL (3.86-4.86); Red Cell Distribution Width 15.6 % (12.1-15.2)
[2024-09-27 05:24] LABS: ALT/SGPT 17 U/L (13-56); Albumin 2.9 g/dL (3.4-5.0); Albumin/Globulin Ratio 0.9 (1.1-1.8); Alkaline Phosphatase 67 U/L (45-117); Anion Gap 12.5 mEq/L (5.0-15.0); BUN Blood Urea Nitrogen 20 mg/dL (7-18); Bicarbonate 26 mEq/L (21-32); Bilirubin Total 0.3 mg/dL (0.2-1.0); Globulin 3.4 g/dL (2.3-3.5); Glomerular Filtration Rate 95 ml/min (=/>90); Glucose Level 125 mg/dL (74-106); Magnesium 2.1 mg/dL (1.6-2.4); Potassium 3.5 mEq/L (3.5-5.1); Protein, Total 6.3 g/dL (6.4-8.2); Sodium Level 137 mEq/L (136-145)
[2024-09-27] MEDS: LEVOTHYROXINE SOD 0.025 MG TAB PO SCH (05:48)
[2024-09-27 06:25] LABS: AST/SGOT < 10 U/L (15-37)
--- NOTE | 2024-09-27 09:00 | RAD REPORT ---
EXAMINATION: ONE VIEW CHEST XR CLINICAL INDICATION: Female, 69 years old.,pneumonia TECHNIQUE: Frontal chest projection is submitted. Examination is limited by patient positioning and t echnique. COMPARISON: 09/25/2024 FINDINGS: The lungs are well inflated and mildly hyperlucent, may suggest COPD. Lungs are overall clear. No pn eumothorax or sizable effusion. The heart is normal in size. Mediastinal contours are unremarkable. IMPRESSION: No acute intrathoracic abnormalities.
[2024-09-27] MEDS: AMOX/K CLAV 500 MG TAB PO SCH (09:04)
[2024-09-27] MEDS: FOLIC ACID 1 MG TABLET PO SCH (09:05)
[2024-09-27] MEDS: BISACODYL E.C. 5 MG TAB PO SCH (09:05)
[2024-09-27] MEDS: FAMOTIDINE 20 MG TAB PO SCH (09:05)
[2024-09-27] MEDS: predniSONE 20 MG TAB PO SCH (09:05)
[2024-09-27] MEDS: ACETAMINOPHEN 325 MG TABLET PO PRN (09:32)
[2024-09-27] MEDS: SOD FERRIC GLUC COMPLX/SUCROSE 250 MG in NA CHLORIDE 0.9% 250 ML IV SCH (09:36)
[2024-09-27] MEDS ORDERED: HYDRALAZINE HCL 20 MG/ML VIAL IV PRN (21:15)
[2024-09-28 05:38] LABS: Absolute Lymphocytes (CBC) 0.9 K/uL (0.7-4.9); Absolute Monocytes 0.4 K/uL (0.1-1.3); Absolute Neutrophil 6.7 K/uL (1.8-8.0); Hematocrit 30.6 % (36.0-45.0); Hemoglobin 9.8 g/dL (12.0-15.0); Lymphocytes % 11.5 % (15.3-44.8); MCH 24.5 pg (27.0-35.0); MCV 76.7 fL (80-100); MPV 8.2 fL (7.6-11.3); Monocytes % 5.3 % (3.3-12.3); Neutrophils % 83.2 % (41.7-73.7); Platelets 374 thou/uL (152-406); RBC Red Blood Cell Count 3.99 M/uL (3.86-4.86); Red Cell Distribution Width 15.5 % (12.1-15.2)
[2024-09-28 05:44] LABS: Albumin 2.8 g/dL (3.4-5.0); Albumin/Globulin Ratio 0.8 (1.1-1.8); Anion Gap 9.9 mEq/L (5.0-15.0); Bilirubin Total 0.3 mg/dL (0.2-1.0); Globulin 3.3 g/dL (2.3-3.5); Magnesium 2.1 mg/dL (1.6-2.4); Phosphorus 2.9 mg/dL (2.5-4.9); Potassium 3.9 mEq/L (3.5-5.1); Protein, Total 6.1 g/dL (6.4-8.2)
--- NOTE | 2024-09-28 07:16 | P.PN ---
Date of Service: 09/27/24 Subjective Chief Complaint: COPD exacerbation 94% on 3 L, shortness of breath with exertion, pending SNF for discharge Review of Systems 10-point ROS is otherwise unremarkable Physical Examination - Vital Signs reviewed - Physical Exam General: Alert, In no apparent distress, afebrile Respiratory: Expiratory wheezes, Inspiratory wheezes, Other (Productive cough) Cardiovascular: Normal pulses, Regular rate/rhythm, Normal S1 S2 Capillary refill: <2 Seconds Gastrointestinal: Normal bowel sounds, Soft and benign Musculoskeletal: Other (Right upper extremity lower extremity weakness) Integumentary: No breakdown, bursing B)UE Neurological: Other (Expressive aphasia, facial droop, right hemiparesis) - Studies Microbiology Data (last 24 hrs): 09/25/24 12:00 Nasopharnyx Influenza Type A Antigen Screen - Final 09/25/24 12:00 Nasopharnyx Influenza Type B Antigen Screen - Final Assessment And Plan - Current Problems (Diagnosis) (1) Acute respiratory failure with hypoxia Current Visit: No Status: Acute (2) COPD exacerbation Current Visit: No Status: Acute (3) Dysphagia Current Visit: Yes Status: Acute (4) Expressive aphasia Current Visit: Yes Status: Acute (5) On home oxygen therapy Current Visit: No Status: Acute (6) Microcytic anemia Current Visit: Yes Status: Acute (7) Thrombocytosis Current Visit: Yes Status: Acute - Plan Assessment plan Pulmonary consult O2 2 L keep sats greater than 92% Nebs, steroids, IV antibiotics, cough suppressant Speech eval for dysphagia PT eval for unsteady gait Dietitian consult for protein calorie supplementation Iron studies for anemia, microcytic anemia, start iron supplement Full code DVT Lovenox Diet soft bite-size, Disposition SNF CV at Discharge <Kelle Hood - Last Filed: 09/28/24 07:16> Chart has been reviewed. Events of the last 24 hours have been noted. Case discussed with LEONARD. I performed a substantial part of the MDM during this patient's care today. I personally made or approved the documented management plan and acknowledge its risk of complications. I agree with the findings and documentation provided in the LEONARD's notes Patient comes in with shortness of breath and respiratory distress. Will continue with diuresing and also continue with nebs, steroids, and antibiotics. Patient is really weak and will discuss with family regarding plan of care. <Javed Tobin - Last Filed: 09/30/24 02:29>
[2024-09-28] MEDS: POTASSIUM CL SA 10 MEQ TAB PO ONE (08:57)
[2024-09-28] MEDS: ALBUTEROL 2.5 MG/3 ML NEB SOL NEB PRN (11:45)
--- NOTE | 2024-09-28 12:56 | P.PN ---
Date of Service: 09/28/24 Subjective Chief Complaint: COPD exacerbation 94% on 3 L, shortness of breath with exertion, pending SNF for discharge Review of Systems 10-point ROS is otherwise unremarkable Physical Examination - Vital Signs reviewed - Physical Exam General: Alert and oriented x 3, moderate generalized weakness Respiratory: Expiratory wheezes, Inspiratory wheezes, Cardiovascular: Normal pulses, Regular rate/rhythm, Normal S1 S2 Capillary refill: <2 Seconds Gastrointestinal: Normal bowel sounds, Soft and benign Musculoskeletal: Other (Right upper extremity lower extremity weakness) Integumentary: No breakdown, bursing B)UE Neurological: Other (Expressive aphasia, facial droop, right hemiparesis) - Studies Microbiology Data (last 24 hrs): 09/25/24 12:00 Nasopharnyx Influenza Type A Antigen Screen - Final 09/25/24 12:00 Nasopharnyx Influenza Type B Antigen Screen - Final Assessment And Plan - Current Problems (Diagnosis) (1) Acute respiratory failure with hypoxia Current Visit: No Status: Acute (2) COPD exacerbation Current Visit: No Status: Acute (3) Dysphagia Current Visit: Yes Status: Acute (4) Expressive aphasia Current Visit: Yes Status: Acute (5) On home oxygen therapy Current Visit: No Status: Acute (6) Microcytic anemia Current Visit: Yes Status: Acute (7) Thrombocytosis Current Visit: Yes Status: Acute - Plan Assessment plan Pulmonary consult O2 2 L keep sats greater than 92% Nebs, steroids, IV antibiotics, cough suppressant Speech eval for dysphagia PT eval for unsteady gait Dietitian consult for protein calorie supplementation Iron studies for anemia, microcytic anemia, start iron supplement Full code DVT Lovenox Diet soft bite-size, Disposition SNF CV at Discharge <Kelle Hood - Last Filed: 09/28/24 13:00> Chart has been reviewed. Events of the last 24 hours have been noted. Case discussed with LEONARD. I performed a substantial part of the MDM during this patient's care today. I personally made or approved the documented management plan and acknowledge its risk of complications. I agree with the findings and documentation provided in the LEONARD's notes Patient comes in with shortness of breath and respiratory distress. Will continue with diuresing and also continue with nebs, steroids, and antibiotics. Patient is really weak and will discuss with family regarding plan of care. <Javed Tobin Last Filed: 09/30/24 02:29>
[2024-09-28] MEDS: ALBUTEROL 2.5 MG/3 ML NEB SOL NEB SCH (13:00)
[2024-09-28] MEDS: IPRATROPIUM BROM 0.5MG/2.5ML NEB SCH (13:00)
[2024-09-28] MEDS: FUROSEMIDE 20 MG/ 2ML VIAL IV ONE (16:50)
[2024-09-28] MEDS: ALBUMIN HUMAN 25% 100 ML IV ONE (17:04)
--- NOTE | 2024-09-29 07:26 | RAD REPORT ---
Procedure: Chest Single View HISTORY: Cough COMPARISON: September 27, 2024 FINDINGS: The lungs appear clear of acute infiltrate. No significant pleural effusion noted. The heart is normal size. IMPRESSION: No acute abnormality is displayed.
[2024-09-29 08:26] LABS: Absolute Lymphocytes (CBC) 1.4 K/uL (0.7-4.9); Absolute Monocytes 0.6 K/uL (0.1-1.3); Absolute Neutrophil 6.8 K/uL (1.8-8.0); Basophils % 0.1 % (0-1.3); Eosinophils % 0.1 % (0-4.4); Hematocrit 31.2 % (36.0-45.0); Lymphocytes % 15.5 % (15.3-44.8); MCH 24.5 pg (27.0-35.0); MCV 76.5 fL (80-100); MPV 7.9 fL (7.6-11.3); Monocytes % 6.4 % (3.3-12.3); Neutrophils % 77.9 % (41.7-73.7); Nucleated Red Blood Cells % 0.1 % (0-0); Platelets 421 thou/uL (152-406); RBC Red Blood Cell Count 4.07 M/uL (3.86-4.86); Red Cell Distribution Width 15.6 % (12.1-15.2)
[2024-09-29 08:43] LABS: Anion Gap 8.7 mEq/L (5.0-15.0); Magnesium 2.1 mg/dL (1.6-2.4); Phosphorus 2.9 mg/dL (2.5-4.9); Potassium 3.7 mEq/L (3.5-5.1)
[2024-09-29 09:17] LABS: Anisocytosis 1+; Blood Morphology Comment NOTED (NOT SEEN); Platelet Estimate ADEQ; White Blood Cell Scan OK (OK)
--- NOTE | 2024-09-29 10:38 | P.DS ---
Admission Date: 09/25/24 Discharge Date: 09/29/24 Disposition: ROUTINE DISCHARGE Discharge Condition: FAIR Reason for Admission: COPD exacerbation Consultations: Dr. Gerardo Brief History of Present Illness: 69-year-old female with a past medical history significant for COPD on home oxygen, CVA aphasia, with right sided weakness, dysphagia, depression, and hypothyroidism presented to the emergency room complaining shortness of breath. Shortness of breath worse with exertion. She reports associated wheezes, productive cough worse over the last 2 days. She denies fever, chest pain, abdominal pain, she reports history of recurrent pneumonia. patient was previously admitted 08/25/24-08/27/24. was evaluated by speech therapy, 08/26/24 speech recommended bite-size textures with thin liquids. The patient was discharged home with home health. ER evaluation chest x-ray The lungs are diffusely emphysematous but grossly clear. The heart is normal in size. No displaced fractures identified. Old right-sided rib fractures. Cervical hardware plate. IMPRESSION: COPD without an acute process suspected. Laboratory evaluation, mild leukocytosis 11.20, microcytic anemia hemoglobin 9.7, MCV low at 30.7, thrombocytosis 410, elevated neutrophils at 76.0, mildly elevated BNP at 972, Plan to admit for acute hypoxic respiratory failure secondary to COPD exacerbation, Hospital Course: Ms. Pardo improved to her baseline per Pulmonary and Patient report. Pt has home oxygen that she uses intermittently. Dr. Gerardo at bedside and suggests discharge with Shalini. He requested the patient demonstrate use of inhaler and she complied. She states she is ready for discharge home. Vital Signs/Physical Exam: Temp Pulse Resp BP Pulse Ox 98.3 F 75 20 140/74 96 09/29/24 08:00 09/29/24 08:00 09/29/24 08:00 09/29/24 08:00 09/29/24 08:00 General: Alert, In no apparent distress, Oriented x3 HEENT: Atraumatic, Normocephalic Neck: Supple Respiratory: Normal air movement, Expiratory wheezes Cardiovascular: No edema, Regular rate/rhythm Capillary refill: <2 Seconds Gastrointestinal: Normal bowel sounds Musculoskeletal: Contractures, Other (status post CVA, right sided weakness/contractures) Integumentary: No rashes Neurological: Normal affect, Abnormal speech, Abnormal strength Lymphatics: No axilla or inguinal lymphadenopathy External genitalia: Deferred Rectal: Deferred Laboratory Data at Discharge: WBC 8.70 thou/uL (4.3-10.9) 09/29/24 08:16 Hgb 10.0 g/dL (12.0-15.0) L 09/29/24 08:16 Hct 31.2 % (36.0-45.0) L 09/29/24 08:16 Plt Count 421 thou/uL (152-406) H 09/29/24 08:16 PT 11.5 SECONDS (9.4-12.5) 09/25/24 12:00 INR 1.03 09/25/24 12:00 APTT 30.2 SECONDS (24.3-36.9) 09/25/24 12:00 Sodium 136 mEq/L (136-145) 09/29/24 08:16 Potassium 3.7 mEq/L (3.5-5.1) 09/29/24 08:16 BUN 18 mg/dL (7-18) 09/29/24 08:16 Creatinine 0.74 mg/dL (0.55-1.02) 09/29/24 08:16 Glucose 111 mg/dL (74-106) H 09/29/24 08:16 Phosphorus 2.9 mg/dL (2.5-4.9) 09/29/24 08:16 Magnesium 2.1 mg/dL (1.6-2.4) 09/29/24 08:16 Total Bilirubin 0.3 mg/dL (0.2-1.0) 09/28/24 05:00 AST 14 U/L (15-37) L 09/28/24 05:00 ALT 18 U/L (13-56) 09/28/24 05:00 Alkaline Phosphatase 65 U/L (45-117) 09/28/24 05:00 Home Medications: Acetaminophen [Tylenol*] 650 mg PO Q4HP PRN tab 03/16/24 Guaif/Dm [Robitussin Dm*] 10 ml PO Q6H PRN 03/16/24 Aspirin [Aspirin EC 81 MG] 81 mg PO DAILY 30 Days #30 tab 08/27/24 Clopidogrel Bisulfate [Plavix*] 75 mg PO DAILY 30 Days #30 tab 08/27/24 Folic Acid 1 mg PO DAILY 30 Days #30 tab 08/27/24 Levothyroxine Sodium [Synthroid] 0.025 mg PO DAILY 30 Days #15 tab 08/27/24 ARIPiprazole [Aripiprazole] 1 tab PO BEDTIME 09/26/24 Amitriptyline HCl 3 tab PO BEDTIME 09/26/24 Atorvastatin Calcium [Lipitor] 10 mg PO BEDTIME 09/26/24 Bisacodyl [Women's Laxative] 1 tab PO DAILY 09/26/24 Duloxetine HCl 1 cap PO DAILY 09/26/24 Famotidine [Pepcid] 1 tab PO DAILY 09/26/24 Albuterol Neb [Proventil 0.083% Neb Soln] 2.5 mg NEB [id number] PRN #1 box 09/29/24 Amox/Clavulanate [Augmentin 500-125 mg Tab*] 500 mg PO BID #14 tab 09/29/24 Ensure High Protein 237 ml PO BID #14 can 09/29/24 Ipratropium Neb [Atrovent*] 0.5 mg NEB [id number] PRN #1 box 09/29/24 Mometasone/Formoterol [Dulera 100 Mcg/5 Mcg Inhaler] 2 puff IH BID #1 ea 09/29/24 Nebulizer 1 each Q6HP PRN #1 ea 09/29/24 Nebulizer Accessories [Adult Aerosol Mask] 1 each Q6HP PRN #1 box 09/29/24 predniSONE [Deltasone*] 10 mg PO DAILY #5 tab 09/29/24 predniSONE [Prednisone*] 10 mg PO BID #10 tab 09/29/24 New Medications: Nebulizer Accessories [Adult Aerosol Mask] 1 each Q6HP PRN #1 box PRN Reason: Shortness Of Breath Ipratropium Neb [Atrovent*] 0.5 mg NEB [id number] PRN #1 box PRN Reason: Shortness Of Breath Amox/Clavulanate [Augmentin 500-125 mg Tab*] 500 mg PO BID #14 tab predniSONE [Deltasone*] 10 mg PO DAILY #5 tab Mometasone/Formoterol [Dulera 100 Mcg/5 Mcg Inhaler] 2 puff IH BID #1 ea Ensure High Protein 237 ml PO BID #14 can Nebulizer 1 each MC Q6HP PRN #1 ea PRN Reason: Shortness Of Breath predniSONE [Prednisone*] 10 mg PO BID #10 tab Albuterol Neb [Proventil 0.083% Neb Soln] 2.5 mg NEB [id number] PRN #1 box PRN Reason: Shortness Of Breath Diet: soft Activity: Ad soo Followup: NONE,NONE [Primary Care Provider] -
--- NOTE | 2024-09-29 10:56 | EKG ---
Test Date: 2024-09-25 Test Time: 11:42:47 Hvac Service Manager: BP MEASUREMENT RESULTS: Intervals: Rate: 108 ND: 170 QRSD: 84 QT: 344 QTc: 460 [place]: P: 83 ND: 170 QRS: 65 T: 90 INTERPRETIVE STATEMENTS: Sinus tachycardia Right atrial enlargement Left ventricular hypertrophy with repolarization abnormality Abnormal ECG Compared to ECG 08/25/2024 13:59:13 Atrial abnormality now present Early repolarization now present Sinus rhythm no longer present T-wave abnormality no longer present Possible ischemia no longer present Electronically Signed On 09-29-24 10:51:40 CEO ZIFF DAVIS by Bhavin Barrera
[2024-09-29] MEDS: FUROSEMIDE 20 MG/ 2ML VIAL IV ONE (11:39)
--- NOTE | 2024-09-29 12:44 | P.PN ---
Subjective Date of Service: 09/29/24 Chief Complaint: COPD exacerbation Subjective: Improving (Patient is improving doing well no new complaint) Review of Systems General: Weakness Respiratory: Shortness of Breath Physical Examination - Vital Signs Temperature: 97.9 F Blood Pressure: 152/78 Pulse: 97 Respirations: 20 Pulse Ox (%): 94 - Physical Exam General: Alert, Oriented x3 Respiratory: Clear to auscultation bilaterally, Diminished Cardiovascular: No edema, Regular rate/rhythm Assessment And Plan - Current Problems (Diagnosis) (1) COPD exacerbation Current Visit: No Status: Acute Plan: Patient is 69 years of age admitted with COPD exacerbation doing better patient is able to use an inhaler using her left hand she is paralyzed with the right hand from her stroke signs oxygenation satisfactory patient has oxygen at home has a nebulizers recommend adding a long-acting bronchodilator at home on low- dose prednisone follow-up with me in 2 weeks signs stable
--- NOTE | 2024-09-30 02:32 | P.PN ---
Date of Service: 09/29/24 Subjective Patient is clinically feeling better. Her strength is improved. She will continue working with physical therapy. Working on senior care facility placement at this time. Respiratory status has stabilized after diuresing. Physical Examination - Vital Signs reviewed - Physical Exam General: Alert and oriented x 3, moderate generalized weakness Respiratory: Expiratory wheezes, Inspiratory wheezes, Cardiovascular: Normal pulses, Regular rate/rhythm, Normal S1 S2 Gastrointestinal: Normal bowel sounds, Soft and benign Musculoskeletal: Other (Right upper extremity lower extremity weakness) Integumentary: No breakdown, bursing B)UE Neurological: Other (Expressive aphasia, facial droop, right hemiparesis) Assessment And Plan - Current Problems (Diagnosis) (1) Acute respiratory failure with hypoxia Current Visit: No Status: Acute (2) COPD exacerbation Current Visit: No Status: Acute (3) Dysphagia Current Visit: Yes Status: Acute (4) Expressive aphasia Current Visit: Yes Status: Acute (5) On home oxygen therapy Current Visit: No Status: Acute (6) Microcytic anemia Current Visit: Yes Status: Acute (7) Thrombocytosis Current Visit: Yes Status: Acute - Plan Assessment plan Pulmonary consultAppreciated; continue with O2 sats greater than 92%. Continue with nebs, steroids, antibiotics. Appreciate consultants recommendations. Echocardiogram pending. Awaiting for approval at [facility] which we should be able to get in the morning. Anticipate discharge home with outpatient follow-up with cardiology and GI.
--- NOTE | 2024-09-30 15:03 | RAD REPORT ---
Procedure: Chest Pa And Lat (2 Views) HISTORY: Cough COMPARISON: September 29, 2024 FINDINGS: The lungs appear clear of acute infiltrate. Lungs are hyperaerated No significant pleural effusion noted. The heart is normal size. IMPRESSION: No acute abnormality is displayed.
--- NOTE | 2024-09-30 16:47 | P.DS ---
Admission Date: 09/25/24 Discharge Date: 09/30/24 Reason for Admission: COPD exacerbation Consultations: Dr. Gerardo Brief History of Present Illness: 69-year-old female with a past medical history significant for COPD on home oxygen, CVA aphasia, with right sided weakness, dysphagia, depression, and hypothyroidism presented to the emergency room complaining shortness of breath. Shortness of breath worse with exertion. She reports associated wheezes, productive cough worse over the last 2 days. She denies fever, chest pain, abdominal pain, she reports history of recurrent pneumonia. patient was previously admitted 08/25/24-08/27/24. was evaluated by speech therapy, 08/26/24 speech recommended bite-size textures with thin liquids. The patient was discharged home with home health. ER evaluation chest x-ray The lungs are diffusely emphysematous but grossly clear. The heart is normal in size. No displaced fractures identified. Old right-sided rib fractures. Cervical hardware plate. IMPRESSION: COPD without an acute process suspected. Laboratory evaluation, mild leukocytosis 11.20, microcytic anemia hemoglobin 9.7, MCV low at 30.7, thrombocytosis 410, elevated neutrophils at 76.0, mildly elevated BNP at 972, Plan to admit for acute hypoxic respiratory failure secondary to COPD exacerbation, Hospital Course: Ms. Pardo improved to her baseline per Pulmonary and Patient report. Pt has home oxygen that she uses intermittently. Dr. Gerardo at bedside and suggests discharge with Shalini. He requested the patient demonstrate use of inhaler and she complied. She states she is ready for discharge home. <Shereen Pickering - Last Filed: 09/30/24 16:45> Admission Date: 09/25/24 Discharge Date: 09/30/24 Hospital Course: Discharge diagnosis Acute on chronic respiratory failure with hypoxia COPD exacerbation Dysphagia Expressive aphasia Microcytic anemia Thrombocytosis <jaylin cook - Last Filed: 10/02/24 19:30> Disposition: TRANSFER TO SNF - REHAB Discharge Condition: FAIR Vital Signs/Physical Exam: Temp Pulse Resp BP Pulse Ox 98.2 F 112 H 20 141/93 H 96 09/30/24 16:00 09/30/24 16:00 09/30/24 16:00 09/30/24 16:00 09/30/24 16:00 General: Alert, In no apparent distress, Oriented x2 HEENT: Atraumatic, Normocephalic Neck: Supple, 2+ carotid pulse no bruit Respiratory: Expiratory wheezes Cardiovascular: Normal pulses, Regular rate/rhythm, Normal S1 S2 Capillary refill: <2 Seconds Gastrointestinal: Normal bowel sounds Musculoskeletal: No clubbing, No swelling Integumentary: No rashes Neurological: Normal tone, Abnormal speech, Abnormal affect Lymphatics: No axilla or inguinal lymphadenopathy External genitalia: Deferred Rectal: Deferred Laboratory Data at Discharge: WBC 8.70 thou/uL (4.3-10.9) 09/29/24 08:16 Hgb 10.0 g/dL (12.0-15.0) L 09/29/24 08:16 Hct 31.2 % (36.0-45.0) L 09/29/24 08:16 Plt Count 421 thou/uL (152-406) H 09/29/24 08:16 PT 11.5 SECONDS (9.4-12.5) 09/25/24 12:00 INR 1.03 09/25/24 12:00 APTT 30.2 SECONDS (24.3-36.9) 09/25/24 12:00 Sodium 136 mEq/L (136-145) 09/29/24 08:16 Potassium 3.7 mEq/L (3.5-5.1) 09/29/24 08:16 BUN 18 mg/dL (7-18) 09/29/24 08:16 Creatinine 0.74 mg/dL (0.55-1.02) 09/29/24 08:16 Glucose 111 mg/dL (74-106) H 09/29/24 08:16 Phosphorus 2.9 mg/dL (2.5-4.9) 09/29/24 08:16 Magnesium 2.1 mg/dL (1.6-2.4) 09/29/24 08:16 Total Bilirubin 0.3 mg/dL (0.2-1.0) 09/28/24 05:00 AST 14 U/L (15-37) L 09/28/24 05:00 ALT 18 U/L (13-56) 09/28/24 05:00 Alkaline Phosphatase 65 U/L (45-117) 09/28/24 05:00 <Pickering,Shereen Fady - Last Filed: 09/30/24 16:45> Vital Signs/Physical Exam: Temp Pulse Resp BP Pulse Ox 98.6 F 84 18 112/83 97 09/30/24 20:00 09/30/24 20:00 09/30/24 20:00 09/30/24 20:00 09/30/24 20:00 Laboratory Data at Discharge: WBC 8.70 thou/uL (4.3-10.9) 09/29/24 08:16 Hgb 10.0 g/dL (12.0-15.0) L 09/29/24 08:16 Hct 31.2 % (36.0-45.0) L 09/29/24 08:16 Plt Count 421 thou/uL (152-406) H 09/29/24 08:16 PT 11.5 SECONDS (9.4-12.5) 09/25/24 12:00 INR 1.03 09/25/24 12:00 APTT 30.2 SECONDS (24.3-36.9) 09/25/24 12:00 Sodium 136 mEq/L (136-145) 09/29/24 08:16 Potassium 3.7 mEq/L (3.5-5.1) 09/29/24 08:16 BUN 18 mg/dL (7-18) 09/29/24 08:16 Creatinine 0.74 mg/dL (0.55-1.02) 09/29/24 08:16 Glucose 111 mg/dL (74-106) H 09/29/24 08:16 Phosphorus 2.9 mg/dL (2.5-4.9) 09/29/24 08:16 Magnesium 2.1 mg/dL (1.6-2.4) 09/29/24 08:16 Total Bilirubin 0.3 mg/dL (0.2-1.0) 09/28/24 05:00 AST 14 U/L (15-37) L 09/28/24 05:00 ALT 18 U/L (13-56) 09/28/24 05:00 Alkaline Phosphatase 65 U/L (45-117) 09/28/24 05:00 <jaylin cook - Last Filed: 10/02/24 19:30> Diet: soft Activity: Ad soo <Pickering,Shereen Fady - Last Filed: 09/30/24 16:45> <joycejaylin - Last Filed: 10/02/24 19:30> Home Medications: Acetaminophen [Tylenol*] 650 mg PO Q4HP PRN tab 03/16/24 Guaif/Dm [Robitussin Dm*] 10 ml PO Q6H PRN 03/16/24 Aspirin [Aspirin EC 81 MG] 81 mg PO DAILY 30 Days #30 tab 08/27/24 Clopidogrel Bisulfate [Plavix*] 75 mg PO DAILY 30 Days #30 tab 08/27/24 Folic Acid 1 mg PO DAILY 30 Days #30 tab 08/27/24 Levothyroxine Sodium [Synthroid] 0.025 mg PO DAILY 30 Days #15 tab 08/27/24 ARIPiprazole [Aripiprazole] 1 tab PO BEDTIME 09/26/24 Amitriptyline HCl 3 tab PO BEDTIME 09/26/24 Atorvastatin Calcium [Lipitor] 10 mg PO BEDTIME 09/26/24 Bisacodyl [Women's Laxative] 1 tab PO DAILY 09/26/24 Duloxetine HCl 1 cap PO DAILY 09/26/24 Famotidine [Pepcid] 1 tab PO DAILY 09/26/24 Albuterol Neb [Proventil 0.083% Neb Soln] 2.5 mg NEB [id number] PRN #1 box 09/29/24 Amox/Clavulanate [Augmentin 500-125 mg Tab*] 500 mg PO BID #14 tab 09/29/24 Ensure High Protein 237 ml PO BID #14 can 09/29/24 Ipratropium Neb [Atrovent*] 0.5 mg NEB [id number] PRN #1 box 09/29/24 Mometasone/Formoterol [Dulera 100 Mcg/5 Mcg Inhaler] 2 puff IH BID #1 ea 09/29/24 Nebulizer 1 each MC Q6HP PRN #1 ea 09/29/24 Nebulizer Accessories [Adult Aerosol Mask] 1 each MC Q6HP PRN #1 box 09/29/24 predniSONE [Deltasone*] 10 mg PO DAILY #5 tab 09/29/24 predniSONE [Prednisone*] 10 mg PO BID #10 tab 09/29/24 New Medications: Nebulizer Accessories [Adult Aerosol Mask] 1 each MC Q6HP PRN #1 box PRN Reason: Shortness Of Breath Ipratropium Neb [Atrovent*] 0.5 mg NEB [id number] PRN #1 box PRN Reason: Shortness Of Breath Amox/Clavulanate [Augmentin 500-125 mg Tab*] 500 mg PO BID #14 tab predniSONE [Deltasone*] 10 mg PO DAILY #5 tab Mometasone/Formoterol [Dulera 100 Mcg/5 Mcg Inhaler] 2 puff IH BID #1 ea Ensure High Protein 237 ml PO BID #14 can Nebulizer 1 each MC Q6HP PRN #1 ea PRN Reason: Shortness Of Breath predniSONE [Prednisone*] 10 mg PO BID #10 tab Albuterol Neb [Proventil 0.083% Neb Soln] 2.5 mg NEB [id number] PRN #1 box PRN Reason: Shortness Of Breath Physician Discharge Instructions: Brief History of Present Illness: 69-year-old female with a past medical history significant for COPD on home oxygen, CVA aphasia, with right sided weakness, dysphagia, depression, and hypothyroidism presented to the emergency room complaining shortness of breath. Shortness of breath worse with exertion. She reports associated wheezes, productive cough worse over the last 2 days. She denies fever, chest pain, abdominal pain, she reports history of recurrent pneumonia. patient was previously admitted 08/25/24-08/27/24. was evaluated by speech therapy, 08/26/24 speech recommended bite-size textures with thin liquids. The patient was discharged home with home health. ER evaluation chest x-ray The lungs are diffusely emphysematous but grossly clear. The heart is normal in size. No displaced fractures identified. Old right-sided rib fractures. Cervical hardware plate. IMPRESSION: COPD without an acute process suspected. Laboratory evaluation, mild leukocytosis 11.20, microcytic anemia hemoglobin 9.7, MCV low at 30.7, thrombocytosis 410, elevated neutrophils at 76.0, mildly elevated BNP at 972, Plan to admit for acute hypoxic respiratory failure secondary to COPD exacerbation, Hospital Course: Ms. Pardo improved to her baseline per Pulmonary and Patient report. Pt has home oxygen that she uses intermittently. Dr. Gerardo at bedside and suggests discharge with Dulera. He requested the patient demonstrate use of inhaler and she complied. She states she is ready for discharge home. 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 Pardo stable for discharge 09/29/24, Son working with [facility] for placement. [facility] room available 09/30/24. Ms. Pardo will be discharged there today. (09/30/24) Followup: Moi Gerardo MD [ACTIVE - CAN ADMIT] - 1-2 Weeks NONE,NONE [Primary Care Provider] -
[2024-10-03 01:05] VITALS: BP 112/83; TEMP 98.6
[2024-10-03 01:10] VITALS: O2SAT 95
== END 2024-09-30 21:00 | DRG 189 ==
LOC: ER 11:02 → ERHOLD 15:25 → 2ND 16:45
PROVIDERS: ADMIT Hospitalist; ATTEND Internal Medicine
DX: J96.01 Acute respiratory failure with hypoxia (principal); J44.1 Chronic obstructive pulmonary disease with (acute) exacerbation; I69.351 Hemiplegia and hemiparesis following cerebral infarction affecting right dominant side; Z99.81 Dependence on supplemental oxygen; I69.320 Aphasia following cerebral infarction; I10 Essential (primary) hypertension; E78.5 Hyperlipidemia, unspecified; Z91.013 Allergy to seafood; D64.9 Anemia, unspecified; D69.6 Thrombocytopenia, unspecified; F32.A Depression, unspecified
CPT/HCPCS: 36415; 71045; 71046; 80048; 80053; 82607; 82728; 82947; 83540; 83605; 83735; 83880; 84100; 84145; 84466; 85025; 85044; 85610; 85730; 87040; 87804; 87811; 92610; 93005; 94640; 94760; 96361; 96365; 96375; 97116; 97161; 97530; 99284; J1650; J1940; J2543; J2916; J2919; J3475; J7040; J7050; J7512; J7613; J7614; J7644; P9047

== ENCOUNTER 2024-11-29 19:23 | Inpatient (IN) | payer OTHER ==
[2024-11-29 19:44] LABS: Absolute Basophils 0.1 K/uL (0-0.5); Absolute Eosinophils 0.1 K/uL (0-0.5); Absolute Lymphocytes (CBC) 0.8 K/uL (0.7-4.9); Absolute Monocytes 0.9 K/uL (0.1-1.3); Absolute Neutrophil 9.5 K/uL (1.8-8.0); Basophils % 0.5 % (0-1.3); Eosinophils % 0.9 % (0-4.4); Hematocrit 37.3 % (36.0-45.0); Hemoglobin 12.2 g/dL (12.0-15.0); Lymphocytes % 6.7 % (15.3-44.8); MCH 28.2 pg (27.0-35.0); MCHC 32.8 g/dL (32.0-36.0); MCV 85.9 fL (80-100); MPV 7.7 fL (7.6-11.3); Monocytes % 7.6 % (3.3-12.3); Neutrophils % 84.3 % (41.7-73.7); Nucleated Red Blood Cells % 0.1 % (0-0); Platelets 358 thou/uL (152-406); RBC Red Blood Cell Count 4.35 M/uL (3.86-4.86); Red Cell Distribution Width 20.3 % (12.1-15.2)
[2024-11-29 19:52] LABS: PT Prothrombin Time 12.2 SECONDS (10-13.0); PTT, Activated Partial Thromb 33.4 SECONDS (27.2-37.4); Protime INR 1.07
[2024-11-29] MEDS ORDERED: NA CHLORIDE 0.9% 250 ML ONE (19:53)
[2024-11-29] MEDS ORDERED: NA CHLORIDE 0.9% 1,000 ML ONE (19:53)
[2024-11-29] MEDS ORDERED: METHYLPREDNISOLONE 125 MG INJ ONE (19:53)
[2024-11-29] MEDS ORDERED: AZITHROMYCIN 500 MG INJ IVPB ONE (19:53)
[2024-11-29] MEDS ORDERED: IPRATROPIUM BROM 0.5MG/2.5ML ONE ×2 (19:53→20:03)
[2024-11-29] MEDS ORDERED: CEFTRIAXONE 1000 MG/VIAL ONE (19:53)
[2024-11-29] MEDS ORDERED: ALBUTEROL 2.5 MG/3 ML NEB SOL ONE ×2 (19:53→20:03)
[2024-11-29] MEDS ORDERED: Magnesium Sulfate 2gm IVPB 2 G/50 ML BAG IV ONE (19:54)
[2024-11-29 19:59] LABS: Albumin 3.5 g/dL (3.4-5.0); Albumin/Globulin Ratio 0.9 (1.1-1.8); Anion Gap 9.3 mEq/L (5.0-15.0); Bilirubin Total 0.3 mg/dL (0.2-1.0); Globulin 3.8 g/dL (2.3-3.5); Potassium 4.3 mEq/L (3.5-5.1); Protein, Total 7.3 g/dL (6.4-8.2)
[2024-11-29 20:05] LABS: Anisocytosis 1+; Blood Morphology Comment NOTED (NOT SEEN); Platelet Estimate ADEQ; White Blood Cell Scan OK (OK)
--- NOTE | 2024-11-29 20:17 | RAD REPORT ---
EXAMINATION: ONE VIEW CHEST XR CLINICAL INDICATION: Cough;COPD TECHNIQUE: Frontal chest projection is submitted. Examination is limited by patient positioning and t echnique. COMPARISON: 09/30/2024 FINDINGS: The lungs are diffusely emphysematous but grossly clear. The heart is upper limit of normal in size. No displaced fractures identified. Cervical spine hardware plate. IMPRESSION: COPD without an acute process suspected.
--- NOTE | 2024-11-29 20:55 | EDPHYS ---
Physician Documentation [facility] Name: Irina Pardo Age: 69 yrs Sex: Female : 1955 Arrival Date: 11/29/2024 Time: 19:23 Bed 2 Private MD: ED Physician Jarod Price HPI: 11/29 19:26 This 69 yrs old Female presents to ER via Unassigned with complaints of ec2 dyspnea. 19:26 Patient arrives today for progressive shortness of breath. Patient with history of ec2 COPD, on home oxygen, has been using her breathing treatments at home with minimal improvement in symptoms. EMS reports oxygen saturations in the mid to upper 80s. Subsequently placed patient on BiPAP for work of breathing.. Historical: - Allergies: 19:33 Iodine; dd2 19:33 SHELLFISH; dd2 - PMHx: 19:33 COPD; CVA; High Cholesterol; Hypertensive disorder; dd2 - PSHx: 19:33 Unable to Obtain; dd2 - Immunization history:: Adult Immunizations up to date. - Infectious Disease History:: Denies. - Social history:: Smoking status: Patient/guardian denies using tobacco, but has a distant history of tobacco abuse. ROS: 19:27 Constitutional: as per hpi ec2 Exam: 19:27 Constitutional: GEN: NAD Head: atraumatic Eyes: EOMI Ears: External ears are ec2 normal. CV: regular rate LUNGS: Tachypnea, diminished breath sounds in all lung [place] with scattered wheezes appreciated. ABD: non-distended SKIN: no evidence of rashes MSK: no evidence of trauma Vital Signs: 19:26 BP 140 / 99; Pulse 137; Resp 30; Temp 98(A); Pulse Ox 100% on CPAP; Weight 56.7 kg (M); dd2 Pain 0/10; 20:00 BP 101 / 73; Pulse 129; Resp 30; Pulse Ox 100% on BiPAP; cm10 20:30 BP 120 / 101; Pulse 116; Resp 25; Pulse Ox 95% on BiPAP; cm10 21:00 BP 97 / 68; Pulse 105; Resp 25; Pulse Ox 98% on BiPAP; cm10 21:15 BP 113 / 80; Pulse 103; Resp 20; Pulse Ox 100% on BiPAP; cm10 21:30 BP 110 / 71; Pulse 102; Resp 27; Pulse Ox 98% on 4 lpm NC; cm10 23:34 BP 111 / 70; Pulse 95; Resp 23; Temp 98.1; Pulse Ox 97% on 4 lpm NC; Pain 0/10; bm8 19:26 Pain Scale: Adult dd2 23:34 Pain Scale: Adult bm8 Lincoln Coma Score: 23:34 Eye Response: to voice(3). Motor Response: obeys commands(6). Verbal Response: bm8 oriented(5). Total: 14. MDM: 19:25 Medical Screening Exam initiated ec2 19:27 Data reviewed: vital signs, nurses notes. ED course: Patient arrives today for ec2 evaluation of shortness of breath. Examination yields cardiopulmonary examination. Will obtain cardiac workup, septic workup, empirically treat with DuoNeb, magnesium as well as crystalloid and antibiotic therapy.. 20:03 ED course: EKG independently reviewed and interpreted by me, shows sinus tachycardia, ec2 rate 135, no acute ST segment elevations.. 20:54 ED course: CBC with minimal leukocytosis, metabolic profile shows appropriate ec2 electrolytes. Lactic acid within normal ranges. Chest x-ray shows COPD without acute process. On reassessment patient is tolerating BiPAP with improvement in respiratory status. Will admit for COPD exacerbation. Discussed with hospitalist, pending admission.. 03 19:26 Order name: Blood Culture Adult (2) ec2 11/29 19:26 Order name: CBC with Diff; Complete Time: 20:54 ec2 11/29 19:26 Order name: CMP; Complete Time: 20:54 ec2 11/29 19:26 Order name: Lactate w/ 2H reflex if indic.; Complete Time: 20:54 ec2 11/29 19:26 Order name: Protime (+inr); Complete Time: 20:54 ec2 11/29 19:26 Order name: Ptt, Activated; Complete Time: 20:54 ec2 11/29 19:48 Order name: CBC Smear Scan; Complete Time: 20:54 EDMS 11/29 21:28 Order name: Urinalysis w/ reflexes EDMS 11/29 21:28 Order name: CBC with Automated Diff EDMS 11/29 21:28 Order name: CBC with Automated Diff EDMS 11/29 21:28 Order name: Comprehensive Metabolic Panel EDMS 11/29 21:28 Order name: Comprehensive Metabolic Panel [facility] 11/29 21:28 Order name: Troponin High Sensitivity [facility] 11/29 21:28 Order name: Troponin High Sensitivity [facility] 11/29 21:28 Order name: Troponin High Sensitivity [facility] 11/29 21:28 Order name: Troponin High Sensitivity [facility] 11/29 19:26 Order name: Chest Single View XRAY; Complete Time: 20:54 ec2 11/29 21:26 Order name: BIPAP ec2 11/29 19:26 Order name: Cardiac monitoring; Complete Time: 20:07 ec2 11/29 19:26 Order name: EKG - Nurse/Tech; Complete Time: 20:07 ec2 11/29 19:26 Order name: IV Saline Lock - Large Bore; Complete Time: 20:07 ec2 11/29 19:26 Order name: Labs collected and sent; Complete Time: 20:07 ec2 11/29 19:26 Order name: O2 Per Protocol; Complete Time: 20:07 ec2 11/29 19:26 Order name: O2 Sat Monitoring; Complete Time: 20:07 ec2 11/29 19:26 Order name: Vital Signs; Complete Time: 20:07 ec2 Administered Medications: 20:07 Drug: DuoNeb Nebulize (3:1) (2.5 mg - 0.5 mg) 3 ml Nebulizer once Route: Nebulizer; cm10 20:28 Follow up: Response: No adverse reaction; Marked relief of symptoms cm10 20:15 Drug: NS 0.9% IV 1000 ml IV at 1000 ml once; to be given as a bolus over 60 minutes cm10 Route: IV; Rate: 1000 ml; Site: left forearm; 21:15 Follow up: Response: No adverse reaction; IV Status: Completed infusion; IV Intake: cm10 1000ml 20:15 Drug: MethylPrednisoLONE IVP 125 mg IVP once Route: IVP; Site: left forearm; cm10 20:45 Follow up: Response: No adverse reaction cm10 20:18 Drug: Magnesium Sulfate IVPB 2 grams IVPB once over 30 mins Route: IVPB; Infused Over: cm10 30 mins; Site: left forearm; 21:18 Follow up: Response: No adverse reaction; IV Status: Completed infusion; IV Intake: [id number] 20:22 Drug: Rocephin IV 1 grams IV at calculated rate once; Given slow IV push per pharmacy cm10 instructions Route: IV; Rate: calculated rate; Site: right hand; 20:24 Follow up: Response: No adverse reaction; IV Status: Completed infusion; IV Intake: [id number] 20:27 Drug: AZITHromycin IVPB 500 mg IVPB once over 1 hrs; (mix in 250 mL NS) Route: IVPB; cm10 Infused Over: 1 hrs; Site: right hand; 21:41 Follow up: Response: No adverse reaction; IV Status: Completed infusion; IV Intake: cm10 250ml Disposition: 20:54 Critical Care:. ec2 Disposition Summary: 11/29/24 20:55 Hospitalization Ordered Notes: Hospitalization Status: Inpatient Admission ec2 Provider: Anibal Beckett ec2 Condition: Fair ec2 Problem: an acute exacerbation ec2 Symptoms: have improved ec2 Bed/Room Type: Standard ec2 Location: Intensive Care Unit(11/30/24 07:30) [facility] Room Assignment: 7-(11/30/24 07:30) [facility] Diagnosis - COPD Exacerbation, respiratory failure w/ hypoxia ec2 Forms: - Medication Reconciliation Form ec2 - SBAR form ec2 - Leadership Thank You Letter ec2 Critical care time excluding procedures: 20:54 Critical care time: Bedside Care: 30 minutes, Consultation: 5 minutes. Total time: 35 ec2 minutes Signatures: Dispatcher [employer] Guille Fischer RN RN ja1 Pilar Kauffman RN RN [id number] Gardenia Colvin RN RN cm10 Jarod Price MD MD ec2 ALENA ALVARADO RN RN dd2 Corrections: (The following items were deleted from the chart) 22:16 19:26 Accucheck ordered. ec2 bm8 22:19 20:55 Intensive Care Unit ec2 lg3 22:19 20:55 ec2 lg3 11/30 07:30 11/29 22:19 [facility] ER HOLD lg3 ja1 11/30 07:30 11/29 22:19 ERHOLD- lg3 ja1
--- NOTE | 2024-11-29 20:55 | ER ---
Nurse's Notes [facility] Name: Irina Pardo Age: 69 yrs Sex: Female : 1955 Arrival Date: 11/29/2024 Time: 19:23 Bed 2 Private MD: Diagnosis: COPD Exacerbation, respiratory failure w/ hypoxia Presentation: 11/29 19:26 Chief complaint: EMS states: TONED OUT FOR RESPIRATORY DISTRESS. EMS REPORTS PT HAVING dd2 DIFFICULTY BREATHING SINCE THIS MORNING AND TOOK SEVERAL DUONEB TREATMENTS BUT CONTINUED TO HAVE WORSENING DIFFICULTY BREATHING. PT WAS 88% ON 3.5 LPM CONCENTRATOR. PT PLACED ON CPAP ENROUTE. Coronavirus screen: At this time, the client does not indicate any symptoms associated with coronavirus-19. Ebola Screen: No symptoms or risks identified at this time. Initial Sepsis Screen: Does the patient meet any 2 criteria? Yes Does the patient have a suspected source of infection? No. Patient's initial sepsis screen is negative. Risk Assessment: Do you want to hurt yourself or someone else? Patient reports no desire to harm self or others. Onset of symptoms was November 29, 2024. Care prior to arrival: CPAP Medication(s) given: Albuterol Neb x 1, Atrovent Neb x 1, Oxygen administered. via CPAP or BiPAP. 19:26 Method Of Arrival: EMS: [facility] dd2 19:26 Acuity: FRANK 2 dd2 Triage Assessment: 19:33 General: Appears in no apparent distress. uncomfortable, Behavior is cooperative, dd2 appropriate for age, anxious. Pain: Denies pain. EENT: No deficits noted. Neuro: Level of Consciousness is awake, alert, obeys commands, Oriented to person, place, time, situation, Appropriate for age. Cardiovascular: No deficits noted. Reports shortness of breath, Patient's skin is warm and dry. Respiratory: Reports shortness of breath at rest on exertion Airway is patent Respiratory effort is labored, Respiratory pattern is symmetrical, tachypnea Breath sounds with wheezes bilaterally. Onset: The symptoms/episode began/occurred this morning, the patient has mild shortness of breath. GI: No deficits noted. Abdomen is non-distended. : No deficits noted. Derm: No deficits noted. Musculoskeletal: No deficits noted. Circulation, motion, and sensation intact. Range of motion: intact in all extremities. Historical: - Allergies: 19:33 Iodine; dd2 19:33 SHELLFISH; dd2 - PMHx: 19:33 COPD; CVA; High Cholesterol; Hypertensive disorder; dd2 - PSHx: 19:33 Unable to Obtain; dd2 - Immunization history:: Adult Immunizations up to date. - Infectious Disease History:: Denies. - Social history:: Smoking status: Patient/guardian denies using tobacco, but has a distant history of tobacco abuse. Screenin:34 [facility] ED Fall Risk Assessment (Adult) History of falling in the last 3 months, bm8 including since admission Yes- fall prone (multiple falls) (3 pts) Confusion or Disorientation No (0 pts) Intoxicated or Sedated No (0 pts) Impaired Gait Yes (1 pt) Mobility Assist Device Used Yes (1 pt) Altered Elimination Yes (1 pt) Score/Fall Risk Level 3 or more points = High Risk Oriented to surroundings, Maintained a safe environment, Educated pt \T\ family on fall prevention, incl call for assistance when getting out of bed, Assessed \T\ reinforced patient's understanding of fall precautions, Hourly rounding (assess needs \T\ fall precautionary measures) done, Used ambulatory aids as needed (educated on \T\ assisted with), Used gait belt as appropriate Implemented a Fall Risk Plan of Care. Abuse screen: Denies threats or abuse. Nutritional screening: No deficits noted. Tuberculosis screening: No symptoms or risk factors identified. Assessment: 19:21 General: RT paged at this time.. cm10 19:37 Reassessment: SEE TRIAGE ASSESSMENT FOR FULL ASSESSMENT. dd2 19:46 General: RT AT BEDSIDE.. cm10 21:23 Reassessment: BiPap removed and patient placed on NC at 4L. cm10 21:30 Reassessment: Patient and/or family updated on plan of care and expected duration. Pain cm10 level reassessed. Patient is alert, oriented x 3, equal unlabored respirations, skin warm/dry/pink. Patient states symptoms have improved. 23:31 Reassessment: Patient appears in no apparent distress at this time. Patient and/or bm8 family updated on plan of care and expected duration. Pain level reassessed. Patient is alert, oriented x 3, equal unlabored respirations, skin warm/dry/pink. pt is resting with eyes closed breathing is even unlabored on 4l NC, Patient denies pain at this time. Patient states feeling better. Patient states symptoms have improved. Cardiovascular: Denies chest pain, Heart tones S1 S2 present Capillary refill < 3 seconds in bilateral fingers Patient's skin is warm and dry. Rhythm is sinus rhythm. Respiratory: Airway is patent Respiratory effort is even, unlabored, Respiratory pattern is regular, symmetrical, Breath sounds with wheezes bilaterally. the patient has mild shortness of breath. GI: No deficits noted. No signs and/or symptoms were reported involving the gastrointestinal system. : No deficits noted. No signs and/or symptoms were reported regarding the genitourinary system. EENT: No deficits noted. No signs and/or symptoms were reported regarding the EENT system. Derm: No deficits noted. No signs and/or symptoms reported regarding the dermatologic system. Musculoskeletal: right arm and leg contractures. Vital Signs: 19:26 BP 140 / 99; Pulse 137; Resp 30; Temp 98(A); Pulse Ox 100% on CPAP; Weight 56.7 kg (M); dd2 Pain 0/10; 20:00 BP 101 / 73; Pulse 129; Resp 30; Pulse Ox 100% on BiPAP; cm10 20:30 BP 120 / 101; Pulse 116; Resp 25; Pulse Ox 95% on BiPAP; cm10 21:00 BP 97 / 68; Pulse 105; Resp 25; Pulse Ox 98% on BiPAP; cm10 21:15 BP 113 / 80; Pulse 103; Resp 20; Pulse Ox 100% on BiPAP; cm10 21:30 BP 110 / 71; Pulse 102; Resp 27; Pulse Ox 98% on 4 lpm NC; cm10 23:34 BP 111 / 70; Pulse 95; Resp 23; Temp 98.1; Pulse Ox 97% on 4 lpm NC; Pain 0/10; bm8 19:26 Pain Scale: Adult dd2 23:34 Pain Scale: Adult bm8 Vitals: 23:34 Cardiac Rhythm Assessment Sinus rhythm. bm8 [place] Coma Score: 23:34 Eye Response: to voice(3). Motor Response: obeys commands(6). Verbal Response: bm8 oriented(5). Total: 14. ED Course: 19:25 Patient arrived in ED. ec2 19:25 Jarod Price MD is Attending Physician. ec2 19:25 ALENA ALVARADO, RN is Primary Nurse. dd2 19:29 Inserted saline lock: 18 gauge in left forearm, using aseptic technique. Blood cm10 collected. Flushed with 10 mL NS. 19:29 Initial lab(s) drawn, by me, sent to lab. First set of blood cultures drawn by me, EKG cm10 done, by ED staff, reviewed by Jarod Price MD. 19:33 Triage completed. dd2 19:33 Arm band placed on right wrist. EKG completed in triage. Results shown to MD. dd2 19:37 Client placed on continuous cardiac and pulse oximetry monitoring. NIBP monitoring cm10 applied. monitoring manager on. 20:00 Chest Single View XRAY In Process Unspecified. EDMS 20:20 Inserted saline lock: 22 gauge in right hand, using aseptic technique. Blood collected. cm10 Flushed with 10 mL NS. 20:20 Second set of blood cultures drawn by me. cm10 20:55 Anibal Beckett MD is Hospitalizing Provider. ec2 23:34 No provider procedures requiring assistance completed. Patient admitted, IV remains in bm8 place. Oxygen administration via nasal cannula \T\ 4L/min Response to oxygen therapy: symptoms improved. 23:34 Patient has correct armband on for positive identification. Placed in gown. Bed in low bm8 position. Call light in reach. Side rails up X2. Provided Education on: need for admission. Client placed on continuous cardiac and pulse oximetry monitoring. NIBP monitoring applied. monitoring manager on. Pulse ox on. NIBP on. Door closed. Noise minimized. Lights dimmed. Warm blanket given. Pillow given. Verbal reassurance given. Head of bed elevated. 11/30 07:38 Primary Nurse role handed off by ALENA ALVARADO, RN ll1 08:13 Wilver Sahu, RN is Primary Nurse. bp Administered Medications: 11/29 20:07 Drug: DuoNeb Nebulize (3:1) (2.5 mg - 0.5 mg) 3 ml Nebulizer once Route: Nebulizer; cm10 20:28 Follow up: Response: No adverse reaction; Marked relief of symptoms cm10 20:15 Drug: NS 0.9% IV 1000 ml IV at 1000 ml once; to be given as a bolus over 60 minutes cm10 Route: IV; Rate: 1000 ml; Site: left forearm; 21:15 Follow up: Response: No adverse reaction; IV Status: Completed infusion; IV Intake: cm10 1000ml 20:15 Drug: MethylPrednisoLONE IVP 125 mg IVP once Route: IVP; Site: left forearm; cm10 20:45 Follow up: Response: No adverse reaction cm10 20:18 Drug: Magnesium Sulfate IVPB 2 grams IVPB once over 30 mins Route: IVPB; Infused Over: cm10 30 mins; Site: left forearm; 21:18 Follow up: Response: No adverse reaction; IV Status: Completed infusion; IV Intake: [id number] 20:22 Drug: Rocephin IV 1 grams IV at calculated rate once; Given slow IV push per pharmacy cm10 instructions Route: IV; Rate: calculated rate; Site: right hand; 20:24 Follow up: Response: No adverse reaction; IV Status: Completed infusion; IV Intake: [id number] 20:27 Drug: AZITHromycin IVPB 500 mg IVPB once over 1 hrs; (mix in 250 mL NS) Route: IVPB; cm10 Infused Over: 1 hrs; Site: right hand; 21:41 Follow up: Response: No adverse reaction; IV Status: Completed infusion; IV Intake: cm10 250ml Medication: 23:34 VIS not applicable for this client. bm8 Intake: 20:24 IV: 10ml; Total: 10ml. cm10 21:15 IV: 1000ml; Total: 1010ml. cm10 21:18 IV: 50ml; Total: 1060ml. cm10 21:41 IV: 250ml; Total: 1310ml. cm10 Outcome: 20:55 Decision to Hospitalize by Provider. ec2 23:34 Admitted to ER Hold. Please see [facility] for further documentation. bm8 23:34 Condition: stable 23:34 Instructed on the need for admit, Demonstrated understanding of instructions, follow-up care, medications, 11/30 09:14 Patient left the ED. ll1 Signatures: Dispatcher [employer] Wilver Dominguez RN RN bp Lewis, Lynsay RN RN ll1 Gardenia Colvin RN RN cm10 Jarod Price MD MD ec2 Cristian Yanez RN RN bm8 ALENA ALVARADO RN RN dd2
--- NOTE | 2024-11-29 21:22 | P.HP ---
Certification for Inpatient Patient admitted to: Inpatient With expected LOS: >2 Midnights Practitioner: I am a practitioner with admitting privileges, knowledge of patient current condition, hospital course, and medical plan of care. Services: Services provided to patient in accordance with Admission requirements found in Title 42 Section 412.3 of the Code of Federal Regulations Patient History Date of Service: 11/30/24 Reason for admission: SOB History of Present Illness: 69-year-old female with a past medical history significant for COPD on home oxygen, CVA aphasia, with right sided weakness, dysphagia, depression, hypertension, hyperlipidemia and hypothyroidism presented to the emergency room complaining shortness of breath. Shortness of breath worse with exertion. She reports associated wheezes, productive cough worse over the last 2 days. She denies fever, chest pain, abdominal pain, she reports history of recurrent pneumonia. Patient is a poor historian hence most of the history is obtained from the chart review and also talking to the ER physician. Patient was noted to be hypoxic and has placed on oxygen support. Patient was also placed on BiPAP because of severe shortness of breath and has been out of BiPAP Patient was assessed in the ER and is admitted for further management Allergies No Known Allergies Allergy (Unverified 09/01/21 14:40) Home medications list reviewed: Yes Home Medications: Acetaminophen [Tylenol*] 650 mg PO Q4HP PRN tab 03/16/24 Guaif/Dm [Robitussin Dm*] 10 ml PO Q6H PRN 03/16/24 Aspirin [Aspirin EC 81 MG] 81 mg PO DAILY 30 Days #30 tab 08/27/24 Clopidogrel Bisulfate [Plavix*] 75 mg PO DAILY 30 Days #30 tab 08/27/24 Folic Acid 1 mg PO DAILY 30 Days #30 tab 08/27/24 Levothyroxine Sodium [Synthroid] 0.025 mg PO DAILY 30 Days #15 tab 08/27/24 ARIPiprazole [Aripiprazole] 1 tab PO BEDTIME 09/26/24 Amitriptyline HCl 3 tab PO BEDTIME 09/26/24 Atorvastatin Calcium [Lipitor] 10 mg PO BEDTIME 09/26/24 Bisacodyl [Women's Laxative] 1 tab PO DAILY 09/26/24 Duloxetine HCl 1 cap PO DAILY 09/26/24 Famotidine [Pepcid] 1 tab PO DAILY 09/26/24 Albuterol Neb [Proventil 0.083% Neb Soln] 2.5 mg NEB [id number] PRN #1 box 09/29/24 Amox/Clavulanate [Augmentin 500-125 mg Tab*] 500 mg PO BID #14 tab 09/29/24 Ensure High Protein 237 ml PO BID #14 can 09/29/24 Ipratropium Neb [Atrovent*] 0.5 mg NEB [id number] PRN #1 box 09/29/24 Mometasone/Formoterol [Dulera 100 Mcg/5 Mcg Inhaler] 2 puff IH BID #1 ea 09/29/24 Nebulizer 1 each MC Q6HP PRN #1 ea 09/29/24 Nebulizer Accessories [Adult Aerosol Mask] 1 each MC Q6HP PRN #1 box 09/29/24 predniSONE [Deltasone*] 10 mg PO DAILY #5 tab 09/29/24 predniSONE [Prednisone*] 10 mg PO BID #10 tab 09/29/24 - Past Medical/Surgical History Diabetic: No Past Medical History: Reviewed- Non-Contributory -: COPD on home oxygen -: stroke hx-chronic right-sided deficits -: HLD -: Hypothyroidism -: Depression Past Surgical History: Reviewed- Non-Contributory -: Unable to obtain - Family History Family History: Reviewed- Non-Contributory - Social History Smoking Status: Former smoker Alcohol use: No CD- Drugs: No Caffeine use: No Review of Systems 10-point ROS is otherwise unremarkable Physical Examination - Vital Signs Temperature: 97.8 F Blood Pressure: 138/78 Pulse: 78 Respirations: 18 Pulse Ox (%): 94 - Physical Exam General: Alert, Oriented x3, Mild distress HEENT: Atraumatic, Normocephalic Neck: Supple, No Thyromegaly Respiratory: Diminished, Crackles/rales, Expiratory wheezes Cardiovascular: Regular rate/rhythm, Normal S1 S2 Capillary refill: <2 Seconds Gastrointestinal: Soft and benign, W/out hepatosplenomegaly Musculoskeletal: No clubbing Integumentary: No rashes, No tenderness/swelling Neurological: Normal speech, Normal strength at 5/5 x4 extr, Cranial nerves 3-12 intact, Normal reflexes 2+ Lymphatics: No axilla or inguinal lymphadenopathy - Studies Laboratory Data (last 24 hrs) 03/11/29/24 11/29/24 19:29 19:29 19:29 WBC 11.30 H Hgb 12.2 Hct 37.3 Plt Count 358 PT 12.2 INR 1.07 APTT 33.4 Sodium 134 L Potassium 4.3 BUN 15 Creatinine 0.85 Glucose 141 H Total Bilirubin 0.3 AST 15 ALT 19 Alkaline Phosphatase 110 Assessment and Plan - Plan COPD exacerbation Monitor closely on telemetry Started on bronchodilators Oxygen supplementation Steroids added Initially was placed on BiPAP Weaned off of BiPAP Chest x-ray findings noted Acute hypoxic Respiratory failure Was on BiPAP Oxygen supplementation Will wean down off BiPAP Hypertension Antihypertensives titrated Continue home medications and titrate as needed Hyperlipidemia Continue statin GI/DVT prophylaxis Advanced directive full code Discharge Plan: Home Plan to discharge in: 48 Hours - Advance Directives Does patient have a Living Will: No Does patient have a Durable POA for Healthcare: Yes - Code Status/Comfort Care Code Status: Full Code Time Spent Managing Pts Care (In Minutes): 54
[2024-11-29] MEDS ORDERED: ACETAMINOPHEN 325 MG TABLET PO PRN (21:23)
[2024-11-29] MEDS ORDERED: IPRATROPIUM BROM 0.5MG/2.5ML NEB PRN (21:23)
[2024-11-29] MEDS ORDERED: ONDANSETRON 4 MG/2 ML VIAL IV PRN (21:23)
[2024-11-30] MEDS: METHYLPREDNISOLONE 125 MG INJ IV SCH (00:10)
[2024-11-30 05:10] LABS: Absolute Lymphocytes (CBC) 0.4 K/uL (0.7-4.9); Absolute Monocytes 0.1 K/uL (0.1-1.3); Absolute Neutrophil 4.8 K/uL (1.8-8.0); Basophils % 0.1 % (0-1.3); Hematocrit 34.4 % (36.0-45.0); Hemoglobin 11.3 g/dL (12.0-15.0); Lymphocytes % 7.7 % (15.3-44.8); MCHC 32.9 g/dL (32.0-36.0); MCV 85.3 fL (80-100); MPV 8.5 fL (7.6-11.3); Monocytes % 1.9 % (3.3-12.3); Neutrophils % 90.3 % (41.7-73.7); Nucleated Red Blood Cells % 0.1 % (0-0); Platelets 258 thou/uL (152-406); RBC Red Blood Cell Count 4.04 M/uL (3.86-4.86)
[2024-11-30] MEDS: ALBUTEROL 2.5 MG/3 ML NEB SOL NEB PRN ×2 (05:15→09:50)
[2024-11-30] MEDS ORDERED: ALBUTEROL 2.5 MG/3 ML NEB SOL ONE (05:25)
[2024-11-30] MEDS ORDERED: IPRATROPIUM BROM 0.5MG/2.5ML ONE (05:25)
[2024-11-30] MEDS ORDERED: METHYLPREDNISOLONE 40 MG INJ ONE (05:25)
[2024-11-30 05:30] LABS: Albumin 3.1 g/dL (3.4-5.0); Albumin/Globulin Ratio 0.8 (1.1-1.8); Anion Gap 9.7 mEq/L (5.0-15.0); Bilirubin Total 0.3 mg/dL (0.2-1.0); Globulin 3.8 g/dL (2.3-3.5); Potassium 4.7 mEq/L (3.5-5.1); Protein, Total 6.9 g/dL (6.4-8.2); Troponin High Sensitivity 11.1 pg/mL (<58.9)
--- NOTE | 2024-11-30 06:19 | P.PN ---
Subjective Date of Service: 11/30/24 Chief Complaint: SOB Subjective: Improving Review of Systems 10-point ROS is otherwise unremarkable Physical Examination - Vital Signs Temperature: 98.2 F Blood Pressure: 126/83 Pulse: 97 Respirations: 22 Pulse Ox (%): 100 - Physical Exam General: Alert, Oriented x3, Mild distress HEENT: Atraumatic, Normocephalic Neck: Supple, 2+ carotid pulse no bruit Respiratory: Diminished, Crackles/rales, Expiratory wheezes Cardiovascular: Regular rate/rhythm, Normal S1 S2 Capillary refill: <2 Seconds Gastrointestinal: Soft and benign, W/out hepatosplenomegaly Musculoskeletal: No clubbing, No swelling Integumentary: No rashes Neurological: Normal strength at 5/5 x4 extr, Cranial nerves 3-12 intact, Normal reflexes 2+ Lymphatics: No axilla or inguinal lymphadenopathy - Studies Laboratory Data (last 24 hrs) 11/29/24 11/29/24 11/29/24 19:29 19:29 19:29 WBC 11.30 H Hgb 12.2 Hct 37.3 Plt Count 358 PT 12.2 INR 1.07 APTT 33.4 Sodium 134 L Potassium 4.3 BUN 15 Creatinine 0.85 Glucose 141 H Total Bilirubin 0.3 AST 15 ALT 19 Alkaline Phosphatase 110 Assessment And Plan - Plan COPD exacerbation Monitor closely on telemetry Started on bronchodilators Oxygen supplementation Steroids added Initially was placed on BiPAP Weaned off of BiPAP Chest x-ray findings noted Acute hypoxic Respiratory failure Was on BiPAP Oxygen supplementation Will wean down off BiPAP Hypertension Antihypertensives titrated Continue home medications and titrate as needed Hyperlipidemia Continue statin GI/DVT prophylaxis Advanced directive full code 11/30/2024 Patient looks better Still has wheezes but better than yesterday Weaned off of BiPAP On oxygen supplementation Continue steroids and bronchodilators Monitor closely under telemetry Discharge Plan: Home Plan to discharge in: 48 Hours - Code Status/Comfort Care Code Status: Full Code Time Spent Managing PTS Care (In Minutes): 48
[2024-11-30] MEDS ORDERED: GUAIFENESIN/DM 5 ML UCUP PO PRN (06:20)
[2024-11-30] MEDS: LEVOTHYROXINE SOD 0.025 MG TAB PO SCH (08:00)
[2024-11-30] MEDS: DULERA 100/5 (MOMETASONE/FORMOTEROL) INHALER IH SCH (09:00)
[2024-11-30] MEDS: FAMOTIDINE 20 MG TAB PO SCH (09:00)
[2024-11-30] MEDS: BISACODYL E.C. 5 MG TAB PO SCH (09:00)
[2024-11-30] MEDS: CLOPIDOGREL 75 MG TABLET PO SCH (09:00)
[2024-11-30] MEDS ORDERED: LEVOTHYROXINE SOD 0.025 MG TAB PO SCH (09:00)
[2024-11-30] MEDS: FOLIC ACID 1 MG TABLET PO SCH (09:00)
[2024-11-30] MEDS: ENSURE HIGH PROTEIN 237 ML CAN PO SCH (09:00)
[2024-11-30] MEDS: ASPIRIN EC 81 MG TAB PO SCH (09:00)
[2024-11-30] MEDS: DULOXETINE 30 MG CAP PO SCH (09:00)
[2024-11-30] MEDS: IPRATROPIUM BROM 0.5MG/2.5ML NEB PRN (09:50)
[2024-11-30] MEDS: LORazepam 2 MG/ML VIAL IV ONE (09:56)
[2024-11-30] MEDS: ENOXAPARIN 40 MG/0.4 ML SQ SCH (17:04)
[2024-11-30] MEDS: AMITRIPTYLINE 50 MG TAB PO SCH (20:21)
[2024-11-30] MEDS: ATORVASTATIN 10 MG TAB PO SCH (20:21)
[2024-11-30] MEDS: HOME MED 1 EA UNK (Aripiprazole [Aripiprazole] 2 MG Tablet) PO SCH (20:41)
[2024-11-30] MEDS: ALPRAZOLAM 0.25 MG TABLET PO PRN (21:13)
[2024-11-30 21:23] LABS: Specific Gravity 1.021 (1.005-1.030); Sqamous Epithelial <5 /HPF (None Seen); Urine Bacteria <20 /HPF (<20); Urine Bilirubin NEGATIVE (Negative); Urine Blood 2+ (Negative); Urine Clarity Extremely Turbid (Clear); Urine Color Light-Yellow (Yellow); Urine Crystals Unidentified Few /HPF (None Seen); Urine Culture Reflex Order NOT NEEDED; Urine Glucose NEGATIVE (Negative); Urine Ketones NEGATIVE (Negative); Urine Microscopic Reflex YN ORDER UMIC; Urine Nitrite NEGATIVE (Negative); Urine Protein NEGATIVE (Negative); Urine Urobilinogen Normal (Normal); Urine WBC <5 /HPF (<5); Urine Yeast (Budding) Trace /HPF (None Seen)
[2024-11-30] MEDS ORDERED: DOBUTAMINE 250 MG/250 ML BAG IV SCH (23:45)
--- NOTE | 2024-12-01 07:12 | P.PN ---
Date of Service: 12/01/24 Subjective: feeling slightly better than yesterday tolerated BiPAP overnight, tolerating 3L NC since ~6 am Had episode of anxiety after BM with straining, associated with tachycardia HR 130s HR 70-80s this morning ROS: 10 point ROS as noted above, otherwise negative Physical Exam: GEN: Alert, oriented, NAD CV: Regular rate and rhythm, no edema Pulm: mildly labored respirations on 3L NC, +bilateral wheezing ABD: soft, nontender, nondistended Neuro: Slurred speech, right-sided weakness Problem List: Acute hypoxic respiratory failure secondary to acute on chronic COPD exacerbation (on home O2) Sinus Tachycardia Anxiety/Depression Hypertension Hyperlipidemia Hypothyroidism Hx CVA with residual right-sided weakness Hx Aphasia/Dysphagia Acute hypoxic respiratory failure secondary to acute on chronic COPD exacerbatio n (on home O2) on admission, presents with worsening SOB assocaited with wheeze and productive cough for 2 days. Reports minimal improvement after nebulizer treatments. Satting 88% on 3.5L home o2. Given IV steroids, IV rocephin/Azithromycin, duonebs in ED. Placed on BiPAP in ED. Placed in ICU for continuous BiPAP, close monitoring. CXR (11/29): COPD without acute process. Blood cx (11/29): NGTD 11/30 - Weaned of BiPAP in the afternoon. Tolerating 3-4L NC. Feeling better, Wheeze improving Leukocytosis resolved. Afebrile. IV steroids, duonebs, robitussin 12/01 - Wore BiPAP overnight. on 3L NC during the day. Has Home O2 setup Switch IV steroids to oral prednisone Improving daily. Likely downgrade to floor later today Sinus Tachycardia Anxiety/Depression Continue elavil, duloxetine 11/30 - Had episode of anxiety after BM with straining, associated with tachycardia HR 130s Given ativan x1. PRN xanax added Anxiety improved after Xanax, felt Ativan didn't help. 12/01 - HR improving. More consistently in 70-90s this morning continue to monitor on telemetry Hypertension Hyperlipidemia Hypothyroidism Hx CVA with residual right-sided weakness Hx Aphasia/Dysphagia confirm home meds, restart as appropriate 11/30 - Home meds resumed - Synthroid, plavix, pepcid, dulcolax, folic acid, statin VTE: Lovenox Code: Full Dispo: Home, ~2 days Possible downgrade to floor later this afternoon Pending further improvement, HR stable. Time Spent Managing Pts Care (In Minutes): 55
[2024-12-01] MEDS: predniSONE 20 MG TAB PO SCH (08:29)
[2024-12-01 23:33] VITALS: BMI 23.6
[2024-12-02 06:29] LABS: Absolute Lymphocytes (CBC) 1.2 K/uL (0.7-4.9); Absolute Monocytes 0.7 K/uL (0.1-1.3); Absolute Neutrophil 6.2 K/uL (1.8-8.0); Basophils % 0.1 % (0-1.3); Lymphocytes % 14.7 % (15.3-44.8); MCH 28.7 pg (27.0-35.0); MCHC 34.2 g/dL (32.0-36.0); MPV 8.3 fL (7.6-11.3); Monocytes % 8.4 % (3.3-12.3); Neutrophils % 76.8 % (41.7-73.7); Nucleated Red Blood Cells % 0.1 % (0-0); Platelets 276 thou/uL (152-406); RBC Red Blood Cell Count 3.81 M/uL (3.86-4.86)
[2024-12-02 06:44] LABS: Anion Gap 8.2 mEq/L (5.0-15.0); Magnesium 2.1 mg/dL (1.6-2.4); Phosphorus 3.3 mg/dL (2.5-4.9); Potassium 4.2 mEq/L (3.5-5.1)
--- NOTE | 2024-12-02 13:14 | P.PN ---
Subjective Date of Service: 12/02/24 Chief Complaint: SOB Patient reports significant improvement in her shortness of breath. She has been tolerating oxygen by nasal cannula. No recorded fever. She is tolerating diet. Nursing staff reports no aspiration no trouble swallowing. Physical Examination - Vital Signs Temperature: 98.7 F Blood Pressure: 126/79 Pulse: 101 Respirations: 15 Pulse Ox (%): 98 Assessment And Plan - Plan Physical Exam: GEN: Alert, oriented, NAD CV: Regular rate and rhythm, no edema Pulm: Nonlabored breathing 3L NC, +bilateral wheezing, no crackles. ABD: soft, nontender, nondistended Neuro: Slurred speech, right-sided weakness, right upper extremity contracture. Problem List: Acute hypoxic respiratory failure secondary to acute on chronic COPD exacerbation (on home O2) Sinus Tachycardia Anxiety/Depression Hypertension Hyperlipidemia Hypothyroidism Hx CVA with residual right-sided weakness Hx Aphasia/Dysphagia Acute hypoxic respiratory failure secondary to acute on chronic COPD exacerbation (on home O2) Status post IV steroids, IV rocephin/Azithromycin, duonebs in ED. Status post intermittent BiPAP, patient now tolerating oxygen by nasal cannula. CXR (11/29): COPD without acute process. Blood cx (11/29): NGTD 11/30 - Weaned of BiPAP in the afternoon. Tolerating 3-4L NC. Feeling better, Wheeze improving Leukocytosis resolved. Afebrile. IV steroids, duonebs, robitussin 12/01 - Wore BiPAP overnight. on 3L NC during the day. Has Home O2 setup Switch IV steroids to oral prednisone Improving daily. Likely downgrade to floor later today 12/02 Patient has been tolerating oxygen by nasal cannula Continue oral steroid, nebs and bronchodilators. Wean oxygen as tolerated Increase activity as tolerated. Pulmonary consult PT consult. Sinus Tachycardia Anxiety/Depression Continue elavil, duloxetine 11/30 - Had episode of anxiety after BM with straining, associated with tachycardia HR 130s Given ativan x1. PRN xanax added Anxiety improved after Xanax, felt Ativan didn't help. 12/01 - HR improving. More consistently in 70-90s this morning continue to monitor on telemetry 12/02 Intermittent tachycardia Continue Xanax as needed for anxiety Continue Elavil and duloxetine. Hypertension Hyperlipidemia Hypothyroidism Hx CVA with residual right-sided weakness Hx Aphasia/Dysphagia confirm home meds, restart as appropriate 11/30 - Home meds resumed - Synthroid, plavix, pepcid, dulcolax, folic acid, statin 12/02 Continue home medications. VTE: Lovenox Code: Full Dispo: Home.
[2024-12-03 04:10] VITALS: BP 121/80; TEMP 97.6
[2024-12-03 06:07] LABS: Anion Gap 9.5 mEq/L (5.0-15.0); Potassium 4.5 mEq/L (3.5-5.1)
[2024-12-03 08:23] VITALS: O2SAT 100
--- NOTE | 2024-12-03 08:35 | P.CNS ---
Date of Consult: 12/03/24 Reason for Consult: COPD exacerbation Chief Complaint: SOB History of Present Illness: Patient is 69 years of age were recently here for COPD discharged came back again complaining of worsening dyspnea for the past 2 days she also takes Trelegy at home nebulizers slight cough can eat and drink able to ambulate she has had stroke involving the right side dysphagia otherwise stable Allergies No Known Allergies Allergy (Unverified 09/01/21 14:40) Home Medications: Acetaminophen [Tylenol Arthritis] 1 tab PO Q4H PRN 11/30/24 Albuterol Sulfate [Proair Respiclick] 1 puff IH Q4H PRN 11/30/24 Amitriptyline HCl 3 tab PO BEDTIME 11/30/24 Aripiprazole [Abilify] 2 mg PO BEDTIME 11/30/24 Aspirin Chewable [Aspirin Chewable*] 1 tab PO DAILY 11/30/24 Atorvastatin Calcium [Lipitor*] 1 tab PO BEDTIME 11/30/24 Bisacodyl [Dulcolax] 1 tab PO SEECOM 11/30/24 Clopidogrel Bisulfate [Plavix*] 1 tab PO DAILY 11/30/24 Diphenhyd/Phenyleph/Acetaminop [Robitussin Cold-Flu Night Liq] 10 ml PO Q6H PRN 11/30/24 Duloxetine HCl 1 cap PO DAILY 11/30/24 Ergocalciferol (Vitamin D2) [Vitamin D2] 1 cap PO Q7D 11/30/24 Famotidine 1 tab PO DAILY 11/30/24 Fluticasone Propion/Salmeterol [Fluticasone-Salmeterol 250-50] 1 inh IH DAILY 11/30/24 Folic Acid 1 mg PO DAILY 11/30/24 Ipratropium/Albuterol Sulfate [Iprat-Albut 0.5-3(2.5) mg/3 ml] 3 ml NEB TID PRN 11/30/24 Levothyroxine Sodium 1 cap PO DAILY 11/30/24 - Past Medical/Surgical History Diabetic: No -: COPD on home oxygen -: stroke hx-chronic right-sided deficits -: HLD -: Hypothyroidism -: Depression -: Unable to obtain - Social History Smoking Status: Former smoker Alcohol use: No CD- Drugs: No Caffeine use: No Place of Residence: Home Review of Systems 10-point ROS is otherwise unremarkable General: Weakness Respiratory: Cough, Shortness of Breath Physical Examination Temp Pulse Resp BP Pulse Ox 97.6 F 83 18 121/80 98 12/03/24 04:00 12/03/24 07:27 12/03/24 07:27 12/03/24 07:27 12/03/24 07:27 General: Alert, Oriented x3 Respiratory: Clear to auscultation bilaterally, Diminished Cardiovascular: No edema, Normal pulses Gastrointestinal: Normal bowel sounds, Soft and benign Musculoskeletal: No clubbing, No swelling - Problems (1) COPD exacerbation Current Visit: No Status: Acute Plan: Patient is 69 years of age admitted with COPD exacerbation she was just here recently is on optimal therapy with Trelegy bronchodilators x-ray shows COPD changes labs reviewed will add prednisone chemistry is unremarkable flutter valve stable to be transferred to the floor
[2024-12-03] MEDS: predniSONE 20 MG TAB PO SCH (08:44)
[2024-12-03] MEDS ORDERED: HOME MED 1 EA UNK (Fluticasone Propion/Salmeterol [Fluticasone-Salmeterol 250-50] Blst.W.D IH SCH (09:00)
[2024-12-03] MEDS ORDERED: predniSONE 20 MG TAB PO SCH (09:00)
--- NOTE | 2024-12-03 09:08 | P.DS ---
Admission Date: 11/29/24 Discharge Date: 12/03/24 Disposition: DC HOME/HOME HEALTH CARE Discharge Condition: FAIR Reason for Admission: SOB Brief History of Present Illness: 69-year-old female with a past medical history significant for COPD on home oxygen, CVA aphasia, with right sided weakness, dysphagia, depression, hypertension, hyperlipidemia and hypothyroidism presented to the emergency room complaining shortness of breath. Shortness of breath worse with exertion. She reported associated wheezes, productive cough. She reported history of recurrent pneumonia. Patient was noted to be hypoxic and placed on oxygen support. Patient was also placed on BiPAP because of severe shortness of breath. She was admitted for further management. Hospital Course: Problem List: Acute hypoxic respiratory failure secondary to acute on chronic COPD exacerbation (on home O2) Sinus Tachycardia Anxiety/Depression Hypertension Hyperlipidemia Hypothyroidism Hx CVA with residual right-sided weakness Hx Aphasia/Dysphagia Patient admitted to the medical floor for medical problems addressed: Acute hypoxic respiratory failure secondary to acute on chronic COPD exacerbation (on home O2) Status post IV steroids, IV rocephin/Azithromycin, duonebs in ED. Status post intermittent BiPAP, patient now tolerating oxygen by nasal cannula. CXR (11/29): COPD without acute process. Blood cx (11/29): NGTD Patient treated with IV steroid, nebulizer treatments. Pulmonary Dr. Finnegan evaluated patient and assisted with management. Patient was weaned off BiPAP to oxygen by nasal cannula Wheezing significantly improved. IV steroid transition to oral prednisone. Oxygen weaned down to 3 L by nasal cannula Home oxygen was set up. Patient has been tolerating oxygen by nasal cannula Patient clinically improved and deemed stable for discharge. Sinus Tachycardia Anxiety/Depression Continued elavil, duloxetine Hypertension Hyperlipidemia Hypothyroidism Hx CVA with residual right-sided weakness Hx Aphasia/Dysphagia Home meds resumed - Synthroid, plavix, pepcid, dulcolax, folic acid, statin Vital Signs/Physical Exam: Temp Pulse Resp BP Pulse Ox 97.6 F 83 18 121/80 98 12/03/24 04:00 12/03/24 07:27 12/03/24 07:27 12/03/24 07:27 12/03/24 07:27 General: Alert, In no apparent distress, Oriented x3 HEENT: Mucous membr. moist/pink Neck: JVD not distended Respiratory: Clear to auscultation bilaterally, Normal air movement Cardiovascular: Regular rate/rhythm, Normal S1 S2 Gastrointestinal: Soft and benign, Non-distended Musculoskeletal: No swelling Laboratory Data at Discharge: WBC 8.10 thou/uL (4.3-10.9) 12/02/24 05:48 Hgb 11.0 g/dL (12.0-15.0) L 12/02/24 05:48 Hct 32.0 % (36.0-45.0) L 12/02/24 05:48 Plt Count 276 thou/uL (152-406) 12/02/24 05:48 PT 12.2 SECONDS (10-13.0) 11/29/24 19:29 INR 1.07 11/29/24 19:29 APTT 33.4 SECONDS (27.2-37.4) 11/29/24 19:29 Sodium 138 mEq/L (136-145) 12/03/24 05:24 Potassium 4.5 mEq/L (3.5-5.1) 12/03/24 05:24 BUN 24 mg/dL (7-18) H 12/03/24 05:24 Creatinine 0.68 mg/dL (0.55-1.02) 12/03/24 05:24 Glucose 109 mg/dL (74-106) H 12/03/24 05:24 Phosphorus 3.3 mg/dL (2.5-4.9) 12/02/24 05:48 Magnesium 2.1 mg/dL (1.6-2.4) 12/02/24 05:48 Total Bilirubin 0.3 mg/dL (0.2-1.0) 11/30/24 04:35 AST 12 U/L (15-37) L 11/30/24 04:35 ALT 16 U/L (13-56) 11/30/24 04:35 Alkaline Phosphatase 98 U/L (45-117) 11/30/24 04:35 Home Medications: Acetaminophen [Tylenol Arthritis] 1 tab PO Q4H PRN 11/30/24 Albuterol Sulfate [Proair Respiclick] 1 puff IH Q4H PRN 11/30/24 Amitriptyline HCl 3 tab PO BEDTIME 11/30/24 Aripiprazole [Abilify] 2 mg PO BEDTIME 11/30/24 Aspirin Chewable [Aspirin Chewable*] 1 tab PO DAILY 11/30/24 Atorvastatin Calcium [Lipitor*] 1 tab PO BEDTIME 11/30/24 Bisacodyl [Dulcolax] 1 tab PO SEECOM 11/30/24 Clopidogrel Bisulfate [Plavix*] 1 tab PO DAILY 11/30/24 Diphenhyd/Phenyleph/Acetaminop [Robitussin Cold-Flu Night Liq] 10 ml PO Q6H PRN 11/30/24 Duloxetine HCl 1 cap PO DAILY 11/30/24 Ergocalciferol (Vitamin D2) [Vitamin D2] 1 cap PO Q7D 11/30/24 Famotidine 1 tab PO DAILY 11/30/24 Fluticasone Propion/Salmeterol [Fluticasone-Salmeterol 250-50] 1 inh IH DAILY 11/30/24 Folic Acid 1 mg PO DAILY 11/30/24 Ipratropium/Albuterol Sulfate [Iprat-Albut 0.5-3(2.5) mg/3 ml] 3 ml NEB TID PRN 11/30/24 Levothyroxine Sodium 1 cap PO DAILY 11/30/24 predniSONE [Deltasone*] 10 mg PO DAILY #21 tab 12/03/24 New Medications: predniSONE [Deltasone*] 10 mg PO DAILY #21 tab Followup: NONE,NONE [Primary Care Provider] - Time spent managing pt's care (in minutes): 34
--- NOTE | 2024-12-03 12:45 | EKG ---
Test Date: 2024-11-29 Test Time: 19:33:32 Manager Of Community Relations: BROOKE MEASUREMENT RESULTS: Intervals: Rate: 135 OK: QRSD: 88 QT: 376 QTc: 564 Maynard: P: OK: QRS: 70 T: 87 INTERPRETIVE STATEMENTS: Supraventricular tachycardia Otherwise normal ECG Compared to ECG 09/25/2024 11:42:47 Sinus tachycardia no longer present Atrial abnormality no longer present Left ventricular hypertrophy no longer present Early repolarization no longer present Electronically Signed On 12-03-24 12:31:26 CDT by Bhavin Barrera
== END 2024-12-03 10:25 | disposition home health service (06) | DRG 189 ==
LOC: ER 19:23 → ERHOLD 21:23 → 3RD-ICU 11-30 08:17
PROVIDERS: ADMIT Family Medicine; ATTEND Internal Medicine
PROC: 5A09457 Assistance with Respiratory Ventilation, 24-96 Consecutive Hours, Continuous Positive Airway Pressure (ICD-10-PCS; principal; 2024-11-30)
DX: J96.01 Acute respiratory failure with hypoxia (principal); J44.1 Chronic obstructive pulmonary disease with (acute) exacerbation; I69.351 Hemiplegia and hemiparesis following cerebral infarction affecting right dominant side; E03.9 Hypothyroidism, unspecified; I10 Essential (primary) hypertension; F32.A Depression, unspecified; F41.9 Anxiety disorder, unspecified; E78.00 Pure hypercholesterolemia, unspecified; Z99.81 Dependence on supplemental oxygen; Z91.013 Allergy to seafood; Z91.048 Other nonmedicinal substance allergy status; Z87.891 Personal history of nicotine dependence; Z79.82 Long term (current) use of aspirin; Z79.02 Long term (current) use of antithrombotics/antiplatelets; Z79.52 Long term (current) use of systemic steroids; Z79.899 Other long term (current) drug therapy
CPT/HCPCS: 36415; 71045; 80048; 80053; 81001; 83605; 83735; 84100; 84484; 85025; 85610; 85730; 87040; 93005; 94640; 94660; 94760; 97161; 97530; 99285; J0696; J1650; J2919; J3475; J3535; J7030; J7050; J7512; J7613; J7644

== ENCOUNTER 2025-04-19 11:57 | Inpatient (IN) | payer OTHER ==
[2025-04-19] MEDS ORDERED: Magnesium Sulfate 2gm IVPB 2 G/50 ML BAG IV ONE (12:33)
[2025-04-19 13:05] LABS: Arterial Blood Carboxyhemoglob 0.0 % (0.0-1.5); Blood Gas Inspired Oxygen 3.0 %; Blood Gas Oxyhemoglobin 39.2 % (94.0-97.0); Blood O2 Saturation 41.7 % (92.0-98.5)
[2025-04-19 13:20] LABS: Absolute Lymphocytes (CBC) 0.8 K/uL (0.7-4.9); Hematocrit 27.3 % (36.0-45.0); Hemoglobin 9.1 g/dL (12.0-15.0); MCH 28.4 pg (27.0-35.0); MCHC 33.4 g/dL (32.0-36.0); MCV 84.8 fL (80-100); MPV 7.9 fL (7.6-11.3); Nucleated RBC Absolute Count 0.0 (0-0); Nucleated Red Blood Cells % 0.1 % (0-0); RBC Red Blood Cell Count 3.22 M/uL (3.86-4.86); White Blood Count 8.90 thou/uL (4.3-10.9)
[2025-04-19 13:47] LABS: PT Prothrombin Time 12.5 SECONDS (10-13.0); PTT, Activated Partial Thromb 32.1 SECONDS (27.2-37.4); Protime INR 1.11
[2025-04-19 13:52] LABS: Influenza A Ag Negative; Influenza B Ag Negative; SARS-CoV-2 Antigen Rapid Res Negative (Negative)
[2025-04-19 13:58] LABS: ALT/SGPT 20.0 U/L (13-56); AST/SGOT 12.0 U/L (15-37); Albumin 3.3 g/dL (3.4-5.0); Albumin/Globulin Ratio 0.9 (1.1-1.8); Alkaline Phosphatase 83.0 U/L (45-117); Anion Gap 8.5 mEq/L (5.0-15.0); BUN Blood Urea Nitrogen 16.0 mg/dL (7-18); Globulin 3.5 g/dL (2.3-3.5); Glucose Level 118.0 mg/dL (74-106); Magnesium 1.9 mg/dL (1.6-2.4); NT PRO-BNP 428.0 pg/mL (<125); Potassium 4.5 mEq/L (3.5-5.1); Troponin High Sensitivity 9.3 pg/mL (<58.9)
--- NOTE | 2025-04-19 14:00 | ER ---
Nurse's Notes [facility] Name: Irina Pardo Age: 69 yrs Sex: Female : 1955 Arrival Date: 04/19/2025 Time: 11:57 Bed 15 Private MD: Diagnosis: COPD/ Chronic obstructive pulmonary disease with (acute) exacerbation Presentation: 04/19 12:14 Chief complaint: EMS states: Toned out respiratory distress, SpO2 80s on 4LNC, improved hb to 90s after Duoneb and SoluMedrol 125mg IVP to 20g LFA. Coronavirus screen: At this time, the client does not indicate any symptoms associated with coronavirus-19. Ebola Screen: No symptoms or risks identified at this time. Initial Sepsis Screen: Does the patient meet any 2 criteria? No. Patient's initial sepsis screen is negative. Does the patient have a suspected source of infection? No. Patient's initial sepsis screen is negative. Risk Assessment: Do you want to hurt yourself or someone else? Patient reports no desire to harm self or others. Onset of symptoms was April 19, 2025. 12:14 Method Of Arrival: EMS: [facility] hb 12:14 Acuity: FRAKN 2 hb Historical: - Allergies: 12:24 Iodine; hb 12:24 SHELLFISH; hb - PMHx: 12:24 COPD; CVA; High Cholesterol; Hypertensive disorder; hb - Immunization history:: Adult Immunizations up to date. - Infectious Disease History:: Denies. - Social history:: Smoking status: . Screenin:19 [facility] ED Fall Risk Assessment (Adult) History of falling in the last 3 months, hb including since admission No falls in past 3 months (0 pts) Confusion or Disorientation No (0 pts) Intoxicated or Sedated No (0 pts) Impaired Gait Yes (1 pt) Mobility Assist Device Used Yes (1 pt) Altered Elimination Yes (1 pt) Score/Fall Risk Level 3 or more points = High Risk Oriented to surroundings, Maintained a safe environment, Educated pt \T\ family on fall prevention, incl call for assistance when getting out of bed. Abuse screen: Denies threats or abuse. Denies injuries from another. Nutritional screening: No deficits noted. Tuberculosis screening: No symptoms or risk factors identified. Assessment: 12:59 Reassessment: Clean brief placed with pure wick. Pt reports she is incontinent of ss urine. Pt is thankful for care received. Vital Signs: 12:14 BP 108 / 69; Pulse 124; Resp 36; Temp 98.9; Pulse Ox 98% on 4 lpm NC; Pain 0/10; hb 13:19 BP 136 / 68; Pulse 117; Resp 28; Pulse Ox 98% on 3 lpm NC; hb 14:30 BP 132 / 64; Pulse 110; Resp 26; Pulse Ox 98% on 3 lpm NC; hb 16:00 BP 128 / 68; Pulse 93; Resp 19; Pulse Ox 98% on 3 lpm NC; hb 12:14 Pain Scale: Adult hb ED Course: 12:13 Patient arrived in ED. ss 12:14 Mandi Darling, RN is Primary Nurse. hb 12:20 Jessie Oconnell PA-C is PHCP. sb4 12:20 Je Capone MD is Attending Physician. sb4 12:21 RT notified of ABG and possible BIPAP order. em1 12:24 Triage completed. hb 12:40 Arm band placed on right wrist. hb 12:40 First set of blood cultures drawn by me. hb 12:56 Accessed peripheral vein via ultrasound, utilizing dynamic ultrasound technique using hb per hospital protocol. Clean \T\ dry. Dressing intact. Good blood return. Flushes easily. 20g LFA. 12:56 Initial lab(s) drawn, by me, sent to lab. Second set of blood cultures drawn by me. hb 13:19 Patient has correct armband on for positive identification. Bed in low position. Call hb light in reach. Provided Education on: CALL LIGHT. Client placed on continuous cardiac and pulse oximetry monitoring. NIBP monitoring applied. court recording monitor on. Pulse ox on. NIBP on. 13:49 Chest Single View XRAY In Process Unspecified. EDMS 13:59 Prince Wiggins MD is Hospitalizing Provider. sb4 Administered Medications: 12:57 Drug: Magnesium Sulfate IVPB 2 grams IVPB once over 30 mins Route: IVPB; Infused Over: hb 30 mins; Site: left forearm; 15:36 Drug: levofloxacin IVPB 500 mg 100 ml IVPB once over 60 mins Volume: 100 ml; Route: hb IVPB; Infused Over: 60 mins; Site: left forearm; Medication: 13:19 VIS not applicable for this client. hb Outcome: 14:00 Decision to Hospitalize by Provider. sb4 17:21 Patient left the ED. hb Signatures: Dispatcher [employer] Gera Tang em1 Mary Bess, RN RN Mandi Darling RN RN Jessie Brannon, PANanette PANanette sb4 Corrections: (The following items were deleted from the chart) 12:25 12:14 BP 108 / 69; Pulse 124bpm; Resp 28bpm; Pulse Ox 98% 4 lpm Nasal Cannula; Temp hb 98.9F; Pain 0/10, Adult; hb
--- NOTE | 2025-04-19 14:00 | EDPHYS ---
Physician Documentation [facility] Name: Irina Pardo Age: 69 yrs Sex: Female : 1955 Arrival Date: 04/19/2025 Time: 11:57 Bed 15 Private MD: ED Physician Je Capone HPI: 04/19 12:24 This 69 yrs old Female presents to ER via EMS with complaints of Respiratory Distress. sb4 12:24 Son called EMS this morning for patient being in respiratory distress. Patient does sb4 have a history of COPD is on 4 L chronically. She was found to be tripoding, wheezing, saturating 85% on 4 L. She was given 2 breathing treatments and route as well as 125 mg of Solu-Medrol and IV fluids. Her oxygen saturation has come up to 100%. Is still tachycardic and tachypneic. Historical: - Allergies: 12:24 Iodine; hb 12:24 SHELLFISH; hb - PMHx: 12:24 COPD; CVA; High Cholesterol; Hypertensive disorder; hb - Immunization history:: Adult Immunizations up to date. - Infectious Disease History:: Denies. - Social history:: Smoking status: . ROS: 12:24 Constitutional: Negative for fever, chills, and weight loss, sb4 12:24 Respiratory: Positive for dyspnea on exertion, orthopnea, shortness of breath, wheezing, 12:24 All other systems are negative, Exam: 12:26 Head/Face: Normocephalic, atraumatic. Eyes: Extra-ocular motions intact. Periorbital sb4 areas with no swelling, redness, or edema. ENT: Mucous membranes moist. 12:26 Constitutional: The patient appears alert, awake, in obvious distress, moderately distressed, obviously ill, 12:26 Cardiovascular: Rate: tachycardic, Rhythm: regular, 12:26 Respiratory: moderate respiratory distress is noted, Respirations: labored breathing, accessory muscle usage, pursed lip breathing, shallow respirations, tachypnea, Breath sounds: decreased breath sounds, that are moderate, are located in both bases, wheezing: expiratory is heard in the left posterior upper lobe and right posterior upper lobe, 12:26 Skin: Appearance: diaphoresis is noted, Vital Signs: 12:14 BP 108 / 69; Pulse 124; Resp 36; Temp 98.9; Pulse Ox 98% on 4 lpm NC; Pain 0/10; hb 13:19 BP 136 / 68; Pulse 117; Resp 28; Pulse Ox 98% on 3 lpm NC; hb 14:30 BP 132 / 64; Pulse 110; Resp 26; Pulse Ox 98% on 3 lpm NC; hb 16:00 BP 128 / 68; Pulse 93; Resp 19; Pulse Ox 98% on 3 lpm NC; hb 12:14 Pain Scale: Adult hb MDM: 12:20 Medical Screening Exam initiated sb4 12:27 Differential diagnosis: COPD exacerbation, pneumonia, CHF exacerbation, asthma, sb4 bronchitis, anxiety. Care significantly affected by the following chronic conditions: Hypertension, Chronic Obstructive Pulmonary Disease. 13:58 Data reviewed: vital signs, nurses notes, EMS record, lab test result(s), EKG, sb4 radiologic studies, and as a result, I will admit patient. Consideration of Admission/Observation Patient was admitted/placed on observation. Counseling: I had a detailed discussion with the patient and/or guardian regarding the historical points, exam findings, and any diagnostic results supporting the discharge/admit diagnosis, the presence of at least one elevated blood pressure reading (>120/80) during this emergency department visit, lab results, radiology results, the need for further work-up and treatment in the hospital. 04/19 12:21 Order name: BNP; Complete Time: 13:58 [facility] 04/19 12:21 Order name: Blood Culture Adult (2) 4 04/19 12:21 Order name: CBC with Diff; Complete Time: 13:33 4 04/19 12:21 Order name: CMP; Complete Time: 13:58 [facility] 04/19 12:21 Order name: Lactate w/ 2H reflex if indic.; Complete Time: 13:58 4 04/19 12:21 Order name: Protime (+inr); Complete Time: 13:48 4 04/19 12:21 Order name: Ptt, Activated; Complete Time: 13:48 4 04/19 12:21 Order name: Troponin HS; Complete Time: 13:58 4 04/19 12:22 Order name: Magnesium; Complete Time: 13:58 [facility] 04/19 12:22 Order name: ABG; Complete Time: 13:10 [facility] 04/19 12:22 Order name: COVID-19 Ag + Flu A+B Ag; Complete Time: 13:53 sb4 04/19 14:34 Order name: Lactate w/ 2H reflex if indic. EDMS 04/19 14:34 Order name: Magnesium EDMS 04/19 14:34 Order name: Phosphorus EDMS 04/19 14:34 Order name: Basic Metabolic Panel EDMS 04/19 14:34 Order name: Basic Metabolic Panel EDMS 04/19 14:34 Order name: CBC with Automated Diff EDMS 04/19 14:34 Order name: CBC with Automated Diff EDMS 04/19 14:34 Order name: NT PRO-BNP EDMS 04/19 14:34 Order name: NT PRO-BNP EDMS 04/19 14:44 Order name: D-Dimer EDMS 04/19 12:21 Order name: Chest Single View XRAY; Complete Time: 14:10 sb4 04/19 12:21 Order name: Accucheck; Complete Time: 13:21 sb4 04/19 12:21 Order name: Cardiac monitoring; Complete Time: 12:42 sb4 04/19 12:21 Order name: EKG - Nurse/Tech; Complete Time: 12:42 sb4 04/19 12:21 Order name: IV Saline Lock - Large Bore; Complete Time: 13:03 sb4 04/19 12:21 Order name: Labs collected and sent; Complete Time: 13:03 sb4 04/19 12:21 Order name: O2 Per Protocol; Complete Time: 12:42 sb4 04/19 12:21 Order name: O2 Sat Monitoring; Complete Time: 12:42 sb4 04/19 12:21 Order name: Vital Signs; Complete Time: 12:42 sb4 EC:41 Rate is 112 beats/min. Rhythm is regular, Sinus tachycardia. IL interval is normal at sb4 150 msec. QRS interval is normal at 82 msec. QT interval is normal at 330 msec. No Q waves. Clinical impression: Sinus tachycardia. Interpreted by me. Reviewed by me. Administered Medications: 12:57 Drug: Magnesium Sulfate IVPB 2 grams IVPB once over 30 mins Route: IVPB; Infused Over: hb 30 mins; Site: left forearm; 15:36 Drug: levofloxacin IVPB 500 mg 100 ml IVPB once over 60 mins Volume: 100 ml; Route: hb IVPB; Infused Over: 60 mins; Site: left forearm; Disposition: 04/20 07:10 Co-signature as Attending Physician, Je Capone MD I reviewed the patient's care rn provided by the Advanced Practice Provider and agree with the diagnosis and treatment plan. Disposition Summary: 04/19/25 14:00 Hospitalization Ordered Notes: Hospitalization Status: Inpatient Admission sb4 Provider: Prince quinton Wiggins Location: Telemetry/MedSurg (Inpatient) sb4 Condition: Stable sb4 Problem: an acute exacerbation sb4 Symptoms: have improved sb4 Bed/Room Type: Standard sb4 Room Assignment: 220(04/19/25 15:50) eb Diagnosis - COPD/ Chronic obstructive pulmonary disease with (acute) exacerbation sb4 Forms: - Medication Reconciliation Form sb4 - SBAR form sb4 - Leadership Thank You Letter sb4 Signatures: Dispatcher [employer] EDJe Balbuena MD MD rn Baxter, Heather, RN RN hb Botello, Elizabeth eb Brown, Sophia, PA-C PAAshleyC sb4 Corrections: (The following items were deleted from the chart) 04/19 12:22 12:22 PROBNP+C.LAB.BRZ ordered. EDMS EDMS 12:22 12:22 BLOOD CULTURE*+BA.LAB.BRZ ordered. EDMS EDMS 12:22 12:22 CBC+H.LAB.BRZ ordered. EDMS EDMS 12:22 12:22 COMPREHENSIVE METABOLIC PANEL+C.LAB.BRZ ordered. EDMS EDMS 12:22 12:22 LACTATE+C.LAB.BRZ ordered. EDMS EDMS 12:22 12:22 PROTIME (+INR)+COAG.LAB.BRZ ordered. EDMS EDMS 12:22 12:22 PTT, ACTIVATED+COAG.LAB.BRZ ordered. EDMS EDMS 12:22 12:22 Troponin High Sensitivity+C.LAB.BRZ ordered. EDMS EDMS 12:22 12:22 Chest Single View+RAD.RAD.BRZ ordered. EDMS EDMS 15:50 14:00 sb4 eb
--- NOTE | 2025-04-19 14:09 | RAD REPORT ---
EXAMINATION: ONE VIEW CHEST XR CLINICAL INDICATION: Female, 69 years old.,DYSPNEA TECHNIQUE: Frontal chest projection is submitted. Examination is limited by patient positioning and t echnique. COMPARISON: 03/26/2025 FINDINGS: The lungs are well inflated and clear. No pneumothorax or sizable effusion. The heart is normal in s ize. Mediastinal contours are unremarkable. IMPRESSION: No acute intrathoracic abnormalities.
[2025-04-19] MEDS ORDERED: ONDANSETRON 4 MG/2 ML VIAL IV PRN (14:29)
[2025-04-19] MEDS: PANTOPRAZOLE 40 MG INJ IVP SCH (14:42)
[2025-04-19] MEDS ORDERED: SODIUM CHLORIDE 0.9% 10ML INJ IV PRN (14:42)
[2025-04-19] MEDS: Levofloxacin 750mg IV 750 MG/150 ML BAG IV SCH (15:00)
--- NOTE | 2025-04-19 15:14 | P.HP ---
Certification for Inpatient Patient admitted to: Inpatient With expected LOS: >2 Midnights Practitioner: I am a practitioner with admitting privileges, knowledge of patient current condition, hospital course, and medical plan of care. Services: Services provided to patient in accordance with Admission requirements found in Title 42 Section 412.3 of the Code of Federal Regulations Patient History Date of Service: 04/19/25 Reason for admission: Acute respiratory failure History of Present Illness: Patient is a 69-year-old female with known history of hypertension, h yperlipidemia, CVA with right-sided hemiplegia, COPD and chronic respiratory failure on 2 L at home. She was brought into the ER via EMS for acute respiratory distress. Patient was reportedly found tripoding and wheezing. EMS measured her O2 sat of 85% on 4 L of oxygen. She received nebulizer, IV steroids and IV fluid en route to the ER. ABG upon arrival revealed severe hypoxia with pO2 of 26. Patient is now feeling better. She has been transitioned to nasal cannula and satting above 90%. She is being admitted for acute on chronic respiratory failure. During my evaluation, patient was wheezing. Diminished airway on lung auscultation. Influenza test, COVID test and chest x-ray were negative. Allergies shellfish derived Allergy (Verified 03/27/25 01:35) Hives/Rash Home Medications: Acetaminophen [Tylenol Arthritis] 1 tab PO Q4H PRN 11/30/24 Albuterol Sulfate [Proair Respiclick] 1 puff IH Q4H PRN 11/30/24 Amitriptyline HCl 3 tab PO BEDTIME 11/30/24 Aripiprazole [Abilify] 2 mg PO BEDTIME 11/30/24 Aspirin Chewable [Aspirin Chewable*] 1 tab PO DAILY 11/30/24 Atorvastatin Calcium [Lipitor*] 1 tab PO BEDTIME 11/30/24 Bisacodyl [Dulcolax] 1 tab PO SEECOM 11/30/24 Clopidogrel Bisulfate [Plavix*] 1 tab PO DAILY 11/30/24 Diphenhyd/Phenyleph/Acetaminop [Robitussin Cold-Flu Night Liq] 10 ml PO Q6H PRN 11/30/24 Duloxetine HCl 1 cap PO DAILY 11/30/24 Ergocalciferol (Vitamin D2) [Vitamin D2] 1 cap PO Q7D 11/30/24 Famotidine 1 tab PO DAILY 11/30/24 Folic Acid 1 mg PO DAILY 11/30/24 Ipratropium/Albuterol Sulfate [Iprat-Albut 0.5-3(2.5) mg/3 ml] 3 ml NEB TID PRN 11/30/24 Levothyroxine Sodium 1 cap PO DAILY 11/30/24 predniSONE [Deltasone*] 10 mg PO DAILY #21 tab 12/03/24 Fluticasone/Umeclidin/Vilanter [Trelegy Ellipta 100-62.5-25] 1 puff IH DAILY 03/27/25 Amox/Clavulanate [Augmentin 875-125 Tab*] 875 mg PO BIDWM #14 tab 03/29/25 Benzonatate [Tessalon Perle*] 200 mg PO TID PRN #30 cap 03/29/25 Docusate [Colace Cap*] 100 mg PO BID #60 cap 03/29/25 predniSONE [Prednisone*] 20 mg PO BID #10 tab 03/29/25 - Past Medical/Surgical History Diabetic: No -: COPD on home oxygen -: stroke hx-chronic right-sided deficits -: HLD -: Hypothyroidism -: Depression -: Unable to obtain - Social History Alcohol use: No CD- Drugs: No Caffeine use: No Physical Examination - Physical Exam General: Cooperative, Acute distress HEENT: Atraumatic, Normocephalic Respiratory: Diminished, Expiratory wheezes Cardiovascular: No edema, Normal pulses, Regular rate/rhythm, Normal S1 S2 Neurological: Normal speech, Abnormal strength (Right-sided hemiplegia) - Studies Laboratory Data (last 24 hrs) 04/19/25 04/19/25 04/19/25 12:58 12:58 12:40 WBC 8.90 Hgb 9.1 L Hct 27.3 L Plt Count 335 PT 12.5 INR 1.11 APTT 32.1 Sodium 137 Potassium 4.5 BUN 16 Creatinine 0.70 Glucose 118 H Magnesium 1.9 Total Bilirubin 0.3 AST 12 L ALT 20 Alkaline Phosphatase 83 Assessment and Plan - Plan Assessment Patient is a 69-year-old female with chronic respiratory failure and COPD who is being admitted for acute COPD exacerbation and acute hypoxia. Her chest x-ray is unremarkable. She tested negative for influenza and COVID-19. D-dimer pending. She reportedly satting 85% on 4 L at home. She has received nebulizer and IV Solu-Medrol and appears clinically stable. Acute on chronic respiratory failure Acute COPD exacerbation CVA with right-sided hemiplegia Hypertension Hyperlipidemia Plan: Will admit inpatient with telemetry Continue standard COPD regimen: IV levofloxacin, Solu-Medrol, DuoNebs and Dulera Wean down oxygen to baseline Pulmonary medicine consulted DVT and GI prophylaxis Patient will be admitted for 1 to 2 days Resume routine home medications - Advance Directives Does patient have a Living Will: No Does patient have a Durable POA for Healthcare: Yes
[2025-04-19] MEDS ORDERED: Levofloxacin500mg IV 500 MG/100 ML BAG IV ONE (15:19)
[2025-04-19] MEDS: METHYLPREDNISOLONE 40 MG INJ IV SCH (17:00)
[2025-04-19 19:13] VITALS: BMI 23.8
[2025-04-19] MEDS: IPRATROPIUM BROM 0.5MG/2.5ML NEB SCH (19:24)
[2025-04-19] MEDS: ALBUTEROL 2.5 MG/3 ML NEB SOL NEB SCH (19:24)
[2025-04-19] MEDS ORDERED: DULERA 200/5 (MOMETASONE/FORMOTEROL) INHALER IH SCH (21:00)
[2025-04-19] MEDS: UMECLIDIN IH SCH (21:00)
[2025-04-19] MEDS: VILANTER IH SCH (21:00)
[2025-04-19] MEDS: FLUTICASONE IH SCH (21:00)
[2025-04-19] MEDS: IPRATROPIUM BROM 0.5MG/2.5ML NEB PRN (22:50)
[2025-04-19] MEDS: ALBUTEROL 2.5 MG/3 ML NEB SOL NEB PRN (22:50)
[2025-04-20 05:54] LABS: Absolute Lymphocytes (CBC) 0.4 K/uL (0.7-4.9); Hematocrit 26.0 % (36.0-45.0); Hemoglobin 8.7 g/dL (12.0-15.0); MCH 28.2 pg (27.0-35.0); MCHC 33.4 g/dL (32.0-36.0); MCV 84.4 fL (80-100); MPV 7.3 fL (7.6-11.3); Nucleated RBC Absolute Count 0.0 (0-0); Nucleated Red Blood Cells % 0.0 % (0-0); RBC Red Blood Cell Count 3.08 M/uL (3.86-4.86); White Blood Count 5.10 thou/uL (4.3-10.9)
[2025-04-20 06:12] LABS: Magnesium 2.2 mg/dL (1.6-2.4)
[2025-04-20 06:17] LABS: Anion Gap 8.4 mEq/L (5.0-15.0); BUN Blood Urea Nitrogen 16.0 mg/dL (7-18); Glucose Level 127.0 mg/dL (74-106); NT PRO-BNP 881.0 pg/mL (<125); Potassium 4.4 mEq/L (3.5-5.1)
--- NOTE | 2025-04-20 06:57 | P.PN ---
Date of Service: 04/20/25 Subjective: feels better today. ~50% back to her baseline per patient resting more comfortably in bed uses 4L NC at home denies any new or worsening problems afebrile Physical Exam: GEN: Alert, oriented, NAD CV: Regular rate and rhythm, no edema Pulm: mildly labored respirations on 4L NC, bilateral crackles ABD: soft, nontender, nondistended Neuro: Right-sided hemiplegia Problem List: Acute on chronic respiratory failure secondary to acute on chronic COPD exacerbation (on 4L Home O2) Hypertension Hyperlipidemia Depression Hx of CVA with right-sided hemiplegia Acute on chronic respiratory failure secondary to acute on chronic COPD exacerbation (on 4L Home O2) on admission, presents with worsening shortness of breath, wheeze, hypoxia. 85% on 4L O2 per EMS. Given IV steroids, Nebs and IVF en route to ED by EMS. Given IV levaquin in ED PCO2 59, PO2 26 on admission CXR (04/19): no acute findings. Clear lungs. Continue IV steroids, duonebs Restart home Trelegy Pulm consulted Hypertension Hyperlipidemia Depression Hx of CVA with right-sided hemiplegia confirm home meds, restart as appropriate VTE: Lovenox Code: Full Dispo: Home, ~1-2 days Time Spent Managing Pts Care (In Minutes): 55
[2025-04-20] MEDS: ENOXAPARIN 40 MG/0.4 ML SQ SCH (08:32)
[2025-04-20] MEDS: ASPIRIN EC 81 MG TAB PO SCH (08:32)
[2025-04-20] MEDS: PNEUMOCOCCAL VACCINE 0.5 ML IMVAC ONE (08:40)
--- NOTE | 2025-04-20 12:55 | P.CNS ---
Chief Complaint: Acute respiratory failure Allergies shellfish derived Allergy (Verified 03/27/25 01:35) Hives/Rash Home Medications: Acetaminophen [Tylenol Arthritis] 1 tab PO Q4H PRN 11/30/24 Albuterol Sulfate [Proair Respiclick] 1 puff IH Q4H PRN 11/30/24 Amitriptyline HCl 3 tab PO BEDTIME 11/30/24 Aripiprazole [Abilify] 2 mg PO BEDTIME 11/30/24 Aspirin Chewable [Aspirin Chewable*] 1 tab PO DAILY 11/30/24 Atorvastatin Calcium [Lipitor*] 1 tab PO BEDTIME 11/30/24 Bisacodyl [Dulcolax] 1 tab PO SEECOM 11/30/24 Clopidogrel Bisulfate [Plavix*] 1 tab PO DAILY 11/30/24 Diphenhyd/Phenyleph/Acetaminop [Robitussin Cold-Flu Night Liq] 10 ml PO Q6H PRN 11/30/24 Duloxetine HCl 1 cap PO DAILY 11/30/24 Ergocalciferol (Vitamin D2) [Vitamin D2] 1 cap PO Q7D 11/30/24 Famotidine 1 tab PO DAILY 11/30/24 Folic Acid 1 mg PO DAILY 11/30/24 Ipratropium/Albuterol Sulfate [Iprat-Albut 0.5-3(2.5) mg/3 ml] 3 ml NEB TID PRN 11/30/24 Levothyroxine Sodium 1 cap PO DAILY 11/30/24 predniSONE [Deltasone*] 10 mg PO DAILY #21 tab 12/03/24 Fluticasone/Umeclidin/Vilanter [Trelegy Ellipta 100-62.5-25] 1 puff IH DAILY 03/27/25 Amox/Clavulanate [Augmentin 875-125 Tab*] 875 mg PO BIDWM #14 tab 03/29/25 Benzonatate [Tessalon Perle*] 200 mg PO TID PRN #30 cap 03/29/25 Docusate [Colace Cap*] 100 mg PO BID #60 cap 03/29/25 predniSONE [Prednisone*] 20 mg PO BID #10 tab 03/29/25 - Past Medical/Surgical History Diabetic: No -: COPD on home oxygen -: stroke hx-chronic right-sided deficits -: HLD -: Hypothyroidism -: Depression -: Unable to obtain - Social History Smoking Status: Unknown if ever smoked Alcohol use: No CD- Drugs: No Caffeine use: No Place of Residence: Home Physical Examination Temp Pulse Resp BP Pulse Ox 98.0 F 90 18 148/92 H 100 04/20/25 08:00 04/20/25 08:00 04/20/25 08:00 04/20/25 08:00 04/20/25 08:00 Laboratory Data (last 24 hrs) 04/19/25 04/19/25 04/19/25 12:58 12:58 12:40 WBC 8.90 Hgb 9.1 L Hct 27.3 L Plt Count 335 PT 12.5 INR 1.11 APTT 32.1 Sodium 137 Potassium 4.5 BUN 16 Creatinine 0.70 Glucose 118 H Magnesium 1.9 Total Bilirubin 0.3 AST 12 L ALT 20 Alkaline Phosphatase 83
[2025-04-21 07:40] LABS: Hematocrit 26.8 % (36.0-45.0); Hemoglobin 8.8 g/dL (12.0-15.0); MCH 27.6 pg (27.0-35.0); MCHC 32.8 g/dL (32.0-36.0); MCV 84.3 fL (80-100); MPV 7.9 fL (7.6-11.3); RBC Red Blood Cell Count 3.18 M/uL (3.86-4.86); White Blood Count 5.10 thou/uL (4.3-10.9)
[2025-04-21 08:00] LABS: Albumin 3.1 g/dL (3.4-5.0); Anion Gap 7.6 mEq/L (5.0-15.0); BUN Blood Urea Nitrogen 18.0 mg/dL (7-18); Glucose Level 132.0 mg/dL (74-106); Magnesium 2.1 mg/dL (1.6-2.4); Potassium 4.6 mEq/L (3.5-5.1)
--- NOTE | 2025-04-21 12:24 | P.CNS ---
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 She was brought into the ER via EMS for acute respiratory distress. Patient was reportedly found tripoding and wheezing. EMS measured her O2 sat of 85% on 4 L of oxygen. She received nebulizer, IV steroids and IV fluid en route to the ER. ABG upon arrival revealed severe hypoxia with pO2 of 26. Patient is now feeling better. She has been transitioned to nasal cannula and satting above 90%. She is being admitted for acute on chronic respiratory failure. Currently doing much better Allergies shellfish derived Allergy (Verified 03/27/25 01:35) Hives/Rash Home Medications: Acetaminophen [Tylenol Arthritis] 1 tab PO Q4H PRN 11/30/24 Albuterol Sulfate [Proair Respiclick] 1 puff IH Q4H PRN 11/30/24 Amitriptyline HCl 3 tab PO BEDTIME 11/30/24 Aripiprazole [Abilify] 2 mg PO BEDTIME 11/30/24 Aspirin Chewable [Aspirin Chewable*] 1 tab PO DAILY 11/30/24 Atorvastatin Calcium [Lipitor*] 1 tab PO BEDTIME 11/30/24 Bisacodyl [Dulcolax] 1 tab PO SEECOM 11/30/24 Clopidogrel Bisulfate [Plavix*] 1 tab PO DAILY 11/30/24 Diphenhyd/Phenyleph/Acetaminop [Robitussin Cold-Flu Night Liq] 10 ml PO Q6H PRN 11/30/24 Duloxetine HCl 1 cap PO DAILY 11/30/24 Ergocalciferol (Vitamin D2) [Vitamin D2] 1 cap PO Q7D 11/30/24 Famotidine 1 tab PO DAILY 11/30/24 Folic Acid 1 mg PO DAILY 11/30/24 Ipratropium/Albuterol Sulfate [Iprat-Albut 0.5-3(2.5) mg/3 ml] 3 ml NEB TID PRN 11/30/24 Levothyroxine Sodium 1 cap PO DAILY 11/30/24 predniSONE [Deltasone*] 10 mg PO DAILY #21 tab 12/03/24 Fluticasone/Umeclidin/Vilanter [Trelegy Ellipta 100-62.5-25] 1 puff IH DAILY 03/27/25 Amox/Clavulanate [Augmentin 875-125 Tab*] 875 mg PO BIDWM #14 tab 03/29/25 Benzonatate [Tessalon Perle*] 200 mg PO TID PRN #30 cap 03/29/25 Docusate [Colace Cap*] 100 mg PO BID #60 cap 03/29/25 predniSONE [Prednisone*] 20 mg PO BID #10 tab 03/29/25 - Past Medical/Surgical History Diabetic: No -: COPD on home oxygen -: stroke hx-chronic right-sided deficits -: HLD -: Hypothyroidism -: Depression -: Unable to obtain - Social History Smoking Status: Unknown if ever smoked Alcohol use: No CD- Drugs: No Caffeine use: No Place of Residence: Home Review of Systems General: Weakness Respiratory: Cough, Shortness of Breath Physical Examination Temp Pulse Resp BP Pulse Ox 98.2 F 88 18 131/92 H 100 04/21/25 08:00 04/21/25 08:00 04/21/25 08:00 04/21/25 08:00 04/21/25 08:00 General: Alert, Oriented x3 Respiratory: Clear to auscultation bilaterally, Expiratory wheezes Cardiovascular: No edema, Regular rate/rhythm, Normal S1 S2 - Problems (1) COPD exacerbation Current Visit: No Status: Acute Plan: Patient is 69 years of age admitted with COPD exacerbation still continues to smoke had a history of substance stroke compliant with trilogy doing much better oxygenation satisfactory chest x-ray shows COPD changes patient is currently stable patient is stable plan for discharge on prednisone 10 mg twice a day for a week and antibiotics continue with Trelegy laboratory data is unremarkable chest x-ray shows COPD changes follow-up with me in 2 weeks
[2025-04-21 13:06] VITALS: O2SAT 99
[2025-04-21 13:14] VITALS: BP 142/69; TEMP 97.7
--- NOTE | 2025-04-21 13:50 | P.DS ---
Admission Date: 04/19/25 Discharge Date: 04/21/25 Disposition: ROUTINE DISCHARGE Discharge Condition: FAIR Reason for Admission: COPD exacerbation - Problems (1) Acute respiratory failure with hypoxia Current Visit: No Status: Acute (2) COPD (chronic obstructive pulmonary disease) Current Visit: No Status: Acute Brief History of Present Illness: Patient is a 69-year-old female with known history of hypertension, hyperlipidemia, CVA with right-sided hemiplegia, COPD and chronic respiratory failure on 2 L at home. She was brought into the ER via EMS for acute respiratory distress. Patient was reportedly found tripoding and wheezing. EMS measured her O2 sat of 85% on 4 L of oxygen. She received nebulizer, IV steroids and IV fluid en route to the ER. ABG upon arrival revealed severe hypoxia with pO2 of 26. Patient is now feeling better. She has been transitio marychuy to nasal cannula and satting above 90%. She is being admitted for acute on chronic respiratory failure. During my evaluation, patient was wheezing. Diminished airway on lung auscultation. Influenza test, COVID test and chest x- ray were negative. Hospital Course: Acute on chronic respiratory failure secondary to acute on chronic COPD exacerbation (on 4L Home O2) Hypertension Hyperlipidemia Depression Hx of CVA with right-sided hemiplegia Acute on chronic respiratory failure secondary to acute on chronic COPD exacerbation (on 4L Home O2) on admission, presents with worsening shortness of breath, wheeze, hypoxia. 85% on 4L O2 per EMS. Given IV steroids, Nebs and IVF en route to ED by EMS. Given IV levaquin in ED medications were transitioned to oral, O2 was weaned, evaluated by pulmonary chronic conditions were addressed Vital Signs/Physical Exam: Temp Pulse Resp BP Pulse Ox 97.7 F 89 18 142/69 H 99 04/21/25 12:00 04/21/25 12:00 04/21/25 12:00 04/21/25 12:00 04/21/25 12:00 General: Oriented x3, Cachectic Neck: Supple Respiratory: Clear to auscultation bilaterally Cardiovascular: Regular rate/rhythm Gastrointestinal: Normal bowel sounds, Soft and benign Laboratory Data at Discharge: WBC 5.10 thou/uL (4.3-10.9) 04/21/25 07:22 Hgb 8.8 g/dL (12.0-15.0) L 04/21/25 07:22 Hct 26.8 % (36.0-45.0) L 04/21/25 07:22 Plt Count 342 thou/uL (152-406) 04/21/25 07:22 PT 12.5 SECONDS (10-13.0) 04/19/25 12:58 INR 1.11 04/19/25 12:58 APTT 32.1 SECONDS (27.2-37.4) 04/19/25 12:58 Sodium 135 mEq/L (136-145) L 04/21/25 07:22 Potassium 4.6 mEq/L (3.5-5.1) 04/21/25 07:22 BUN 18 mg/dL (7-18) 04/21/25 07:22 Creatinine 0.68 mg/dL (0.55-1.02) 04/21/25 07:22 Glucose 132 mg/dL (74-106) H 04/21/25 07:22 Phosphorus 3.7 mg/dL (2.5-4.9) 04/21/25 07:22 Magnesium 2.1 mg/dL (1.6-2.4) 04/21/25 07:22 Total Bilirubin 0.3 mg/dL (0.2-1.0) 04/19/25 12:40 AST 12 U/L (15-37) L 04/19/25 12:40 ALT 20 U/L (13-56) 04/19/25 12:40 Alkaline Phosphatase 83 U/L (45-117) 04/19/25 12:40 Home Medications: Acetaminophen [Tylenol Arthritis] 1 tab PO Q4H PRN 11/30/24 Albuterol Sulfate [Proair Respiclick] 1 puff IH Q4H PRN 11/30/24 Amitriptyline HCl 3 tab PO BEDTIME 11/30/24 Aripiprazole [Abilify] 2 mg PO BEDTIME 11/30/24 Aspirin Chewable [Aspirin Chewable*] 1 tab PO DAILY 11/30/24 Atorvastatin Calcium [Lipitor*] 1 tab PO BEDTIME 11/30/24 Bisacodyl [Dulcolax] 1 tab PO SEECOM 11/30/24 Clopidogrel Bisulfate [Plavix*] 1 tab PO DAILY 11/30/24 Diphenhyd/Phenyleph/Acetaminop [Robitussin Cold-Flu Night Liq] 10 ml PO Q6H PRN 11/30/24 Duloxetine HCl 1 cap PO DAILY 11/30/24 Ergocalciferol (Vitamin D2) [Vitamin D2] 1 cap PO Q7D 11/30/24 Famotidine 1 tab PO DAILY 11/30/24 Folic Acid 1 mg PO DAILY 11/30/24 Ipratropium/Albuterol Sulfate [Iprat-Albut 0.5-3(2.5) mg/3 ml] 3 ml NEB TID PRN 11/30/24 Levothyroxine Sodium 1 cap PO DAILY 11/30/24 Fluticasone/Umeclidin/Vilanter [Trelegy Ellipta 100-62.5-25] 1 puff IH DAILY 03/27/25 Benzonatate [Tessalon Perle*] 200 mg PO TID PRN #30 cap 03/29/25 Docusate [Colace Cap*] 100 mg PO BID #60 cap 03/29/25 Amox/Clavulanate [Augmentin 875-125 Tab*] 875 mg PO BID 3 Days #6 tab 04/21/25 predniSONE [Deltasone*] 10 mg PO BID #40 tab 04/21/25 New Medications: Amox/Clavulanate [Augmentin 875-125 Tab*] 875 mg PO BID 3 Days #6 tab predniSONE [Deltasone*] 10 mg PO BID #40 tab Diet: Regular Followup: FRAN ANN PA [Primary Care Provider] - 1-2 Weeks
[2025-04-21] MEDS ORDERED: AMOX/K CLAV 875 MG TAB PO SCH (21:00)
[2025-04-21] MEDS ORDERED: predniSONE 20 MG TAB PO SCH (21:00)
== END 2025-04-21 15:05 | disposition home or self-care (01) | DRG 189 ==
LOC: ER 11:57 → ERHOLD 14:29 → 2ND 16:43
PROVIDERS: ADMIT Internal Medicine; ATTEND Internal Medicine
PROC: 4A033R1 Measurement of Arterial Saturation, Peripheral, Percutaneous Approach (ICD-10-PCS; principal; 2025-04-19)
DX: J96.21 Acute and chronic respiratory failure with hypoxia (principal); J44.1 Chronic obstructive pulmonary disease with (acute) exacerbation; I69.351 Hemiplegia and hemiparesis following cerebral infarction affecting right dominant side; F32.A Depression, unspecified; E03.9 Hypothyroidism, unspecified; I10 Essential (primary) hypertension; E78.00 Pure hypercholesterolemia, unspecified; Z23 Encounter for immunization; Z99.81 Dependence on supplemental oxygen; Z91.013 Allergy to seafood; Z91.048 Other nonmedicinal substance allergy status; Z11.52 Encounter for screening for COVID-19; Z79.82 Long term (current) use of aspirin; Z79.02 Long term (current) use of antithrombotics/antiplatelets; Z79.890 Hormone replacement therapy; Z79.52 Long term (current) use of systemic steroids; Z79.899 Other long term (current) drug therapy
CPT/HCPCS: 36415; 36600; 71045; 80048; 80053; 80069; 82805; 82947; 83605; 83735; 83880; 84100; 84484; 85025; 85027; 85379; 85610; 85730; 87040; 87428; 90471; 90732; 93005; 94640; 94760; 96374; 96375; 99285; J1650; J2470; J2919; J3475; J7613; J7644